=== PATIENT | female | born 1960 | race Two or more races ===

== ENCOUNTER 2019-01-31 18:21 | Inpatient (IN) | payer MEDICARE, OTHER ==
[~2019-01-31] VITALS: Ht 165.1 cm; Wt 89.8 kg
[2019-01-31] MEDS ORDERED: LIPITOR80 MG ORAL (18:34)
[2019-01-31] MEDS ORDERED: LOSARTAN POTAS100 MG ORAL (18:34)
[2019-01-31] MEDS ORDERED: Metoclopramide 10mg/2ml Inj IVP ONE (18:45)
[2019-01-31 18:58] VITALS: BP 160/90
--- NOTE | 2019-01-31 19:01 | NUR ---
ED Nurse Note: Pt came in from home due to "all over" abdominal pain since this morning, pain 10/10 ginna. Pt also c/o diarrhea , last bowel movement was today. Pt is scheduled for colonoscopy tmr. AOx4, VSS. Will cont to monitor.
--- NOTE | 2019-01-31 19:04 | Emergency Room Report ---
History of Present Illness General Chief Complaint: Abdominal Pain Source: Patient, EMS Present Illness HPI Patient presents with abdominal distention and pain. She also has orthopnea. She also has leg edema. She hasn't any fevers or chills. She's been taking a bowel prep for colonoscopy scheduled for tomorrow. She has a history of cirrhosis. She has some dysuria also. She denies fevers or chills. The pain is diffuse. She's not taking any medication for the pain. She rates the pain 10/10, pressure and diffuse in her abdomen. Stools have been loose with the colonoscopy prep. There is yellow in color she denies melena or hematochezia. Patient with history of alcohol use. No chest pain, palpitations, nausea, vomiting, dysuria, depression, visual changes, headache, rashes. Allergies: Coded Allergies: No Known Allergies (Unverified , 01/31/19) Patient History Past Medical History: see triage record Social History: Reports: alcohol use Social History Narrative from home Reviewed Nursing Documentation: PMH: Agreed; PSxH: Agreed Nursing Documentation-PMH Past Medical History: No History, Except For Hx Hypertension: Yes Hx Diabetes: Yes Review of Systems All Other Systems: negative except mentioned in HPI Physical Exam Vital Signs Date Time Temp Pulse Resp B/P (MAP) Pulse Ox O2 Delivery O2 Flow Rate FiO2 01/31/19 18:22 97.9 88 18 160/90 (113) 98 Room Air Sp02 EP Interpretation: reviewed, normal General Appearance: alert, GCS 15, non-toxic, Chronically Ill Head: normocephalic Eyes: bilateral eye PERRL, bilateral eye conjunctivae pale ENT: dry mucus membranes Neck: supple Respiratory: lungs clear, normal breath sounds Cardiovascular #1: regular rate, rhythm, edema - Trace bilaterally Cardiovascular #2: 2+ radial (R) Gastrointestinal: no guarding, no rebound, distended, tenderness, other - Fluid wave Genitourinary: no CVA tenderness Musculoskeletal: back normal, normal range of motion Neurologic: alert, oriented x3, other - No asterixis, grossly normal Psychiatric: mood/affect normal Skin: warm/dry, other - Sallow Medical Decision Making Diagnostic Impression: Primary Impression: Ascites Qualified Codes: K70.31 - Alcoholic cirrhosis of liver with ascites Additional Impressions: Elevated lactic acid level Alcohol intoxication Qualified Codes: F10.929 - Alcohol use, unspecified with intoxication, unspecified Anemia Qualified Codes: D64.9 - Anemia, unspecified Thrombocytopenia Coagulopathy ER Course Patient presents with abdominal pain with history of cirrhosis. Based on her exam at that she has a painful ascites, consider spontaneous bacterial peritonitis. We need to assess her laboratory To exclude coagulopathy. She also looks dehydrated at this time and there may be electrolyte imbalance. She' ll be evaluated with EKG, chest x-ray, abdomen film and labs. Orthostatics will be performed to determine if she needs to get IV fluids intravenously NSR 91 incomplete RBBB, LAD. Chest x-ray with atelectasis. Labs with normal white count, anemia, thrombocytopenia. CMP with elevated liver function tests. Normal renal function. Elevated lactate. Elevated ammonia. Elevated blood alcohol. Elevated lactic acid multifactorial. BC drawn and antibiotics started. Fluid bolus given. Improved but still with pain. Morphine ordered. Although white count is normal without left shift and urine is clear due to elevated lactic acid antibiotics begun. Patient improved with morphine. Tolerating oral intake. Patient admitted to medical floor. Consideration of paracentesis. Due to elevated lactic acid nursing joint supervisor insisting on stepdown unit admission. Laboratory Tests Test 01/31/19 18:56 01/31/19 21:45 02/01/19 01:35 White Blood Count 4.8 K/UL (4.8-10.8) Red Blood Count 3.55 M/UL (4.20-5.40) L Hemoglobin 8.1 G/DL (12.0-16.0) L Hematocrit 26.6 % (37.0-47.0) L Mean Corpuscular Volume 75 FL (80-99) L Mean Corpuscular Hemoglobin 22.8 PG (27.0-31.0) L Mean Corpuscular Hemoglobin Concent 30.4 G/DL (32.0-36.0) L Red Cell Distribution Width 20.4 % (11.6-14.8) H Platelet Count 70 K/UL (150-450) L Mean Platelet Volume 7.1 FL (6.5-10.1) Neutrophils (%) (Auto) % (45.0-75.0) Lymphocytes (%) (Auto) % (20.0-45.0) Monocytes (%) (Auto) % (1.0-10.0) Eosinophils (%) (Auto) % (0.0-3.0) Basophils (%) (Auto) % (0.0-2.0) Differential Total Cells Counted 100 Neutrophils % (Manual) 67 % (45-75) Lymphocytes % (Manual) 25 % (20-45) Monocytes % (Manual) 5 % (1-10) Eosinophils % (Manual) 2 % (0-3) Basophils % (Manual) 1 % (0-2) Band Neutrophils 0 % (0-8) Platelet Estimate Decreased L Platelet Morphology Normal Polychromasia 1+ Hypochromasia 1+ Anisocytosis 1+ Prothrombin Time 12.6 SEC (9.30-11.50) H Prothrombin Time INR 1.2 (0.9-1.1) H PTT 26 SEC (23-33) Sodium Level 142 MMOL/L (136-145) Potassium Level 3.5 MMOL/L (3.5-5.1) Chloride Level 107 MMOL/L (98-107) Carbon Dioxide Level 20 MMOL/L (21-32) L Anion Gap 15 mmol/L (5-15) Blood Urea Nitrogen 4 mg/dL (7-18) L Creatinine 0.9 MG/DL (0.55-1.30) Estimate Glomerular Filtration Rate > 60 mL/min (>60) Glucose Level 118 MG/DL (74-106) H Lactic Acid Level 6.10 mmol/L (0.4-2.0) H 5.40 mmol/L (0.66-2.22) H Calcium Level 7.7 MG/DL (8.5-10.1) L Total Bilirubin 3.0 MG/DL (0.2-1.0) H Direct Bilirubin 1.6 MG/DL (0.0-0.3) H Aspartate Amino Transferase (AST) 40 U/L (15-37) H Alanine Aminotransferase (ALT) 21 U/L (12-78) Alkaline Phosphatase 301 U/L (46-116) H Ammonia 66 umol/L (11-32) H Troponin I 0.000 ng/mL (0.000-0.056) Total Protein 6.5 G/DL (6.4-8.2) Albumin 2.4 G/DL (3.4-5.0) L Globulin 4.1 g/dL Albumin/Globulin Ratio 0.6 (1.0-2.7) L Lipase 57 U/L (73-393) L Serum Alcohol 233 mg/dL Urine Color Yellow Urine Appearance Clear Urine pH 5 (4.5-8.0) Urine Specific [place] 1.015 (1.005-1.035) Urine Protein 1+ (NEGATIVE) H Urine Glucose (UA) Negative (NEGATIVE) Urine Ketones 1+ (NEGATIVE) H Urine Blood Negative (NEGATIVE) Urine Nitrite Positive (NEGATIVE) H Urine Bilirubin Negative (NEGATIVE) Urine Urobilinogen 1 MG/DL (0.0-1.0) H Urine Leukocyte Esterase 1+ (NEGATIVE) H Urine RBC 0-2 /HPF (0 - 2) Urine WBC 2-4 /HPF (0 - 2) Urine Squamous Epithelial Cells Moderate /LPF (NONE/OCC) H Urine Bacteria Moderate /HPF (NONE) H Urine Opiates Screen Negative (NEGATIVE) Urine Barbiturates Screen Negative (NEGATIVE) Phencyclidine (PCP) Screen Negative (NEGATIVE) Urine Amphetamines Screen Negative (NEGATIVE) Urine Benzodiazepines Screen Negative (NEGATIVE) Urine Cocaine Screen Negative (NEGATIVE) Urine Marijuana (THC) Screen Negative (NEGATIVE) EKG Diagnostic Results Rate: normal Rhythm: NSR ST Segments: no acute changes - Incomplete right bundle branch block with left ASA given to the pt in ED: Yes Rhythm Strip Diag. Results EP Interpretation: yes Rhythm: NSR, no PVC's, no ectopy Chest X-Ray Diagnostic Results Chest X-Ray Diagnostic Results : Chest X-Ray Ordered: Yes # of Views/Limited/Complete: 1 View Indication: Other EP Interpretation: Yes Interpretation: no consolidation, no effusion, no pneumothorax Impression: No acute disease Electronically Signed by: Electronically signed by Vincent Recinos MD Other X-Ray Diagnostic Results Other X-Ray Diagnostic Results : X-Ray ordered: abd # of Views/Limited Vs Complete: 2 View Indication: Pain EP Interpretation: Yes Interpretation: nonspecific bowel gas, no sbo, other - Ascites Impression: Other Electronically Signed by: Electronically signed by Vincent Recinos MD Last Vital Signs Date Time Temp Pulse Resp B/P (MAP) Pulse Ox O2 Delivery O2 Flow Rate FiO2 02/01/19 02:02 97.7 80 20 132/76 95 Room Air Status: improved Disposition: ADMITTED INPATIENT Condition: Serious Vincent Recinos MD Jan 31, 2019 19:04
--- NOTE | 2019-01-31 19:05 | NUR ---
ED Nurse Note: Blood drawn and sent to lab.
--- NOTE | 2019-01-31 19:19 | NUR ---
HAND-OFF: Report given to CHAVA Verdugo.
[2019-01-31 19:27] LABS: HEMATOCRIT 26.6 % (37.0-47.0); HEMOGLOBIN 8.1 G/DL (12.0-16.0); MEAN CORPUSCULAR VOLUME 75 FL (80-99); PLATELET COUNT 70 K/UL (150-450); RED BLOOD COUNT 3.55 M/UL (4.20-5.40); RED CELL DISTRIBUTION WIDTH 20.4 % (11.6-14.8); WHITE BLOOD COUNT 4.8 K/UL (4.8-10.8)
[2019-01-31 19:32] LABS: AMMONIA 66 umol/L (11-32); ANION GAP 15 mmol/L (5-15); BLOOD UREA NITROGEN 4 mg/dL (7-18); CALCIUM 7.7 MG/DL (8.5-10.1); CARBON DIOXIDE 20 MMOL/L (21-32); CHLORIDE 107 MMOL/L (98-107); CREATININE 0.9 MG/DL (0.55-1.30); POTASSIUM 3.5 MMOL/L (3.5-5.1); SODIUM 142 MMOL/L (136-145)
[2019-01-31 19:34] LABS: INR 1.2 (0.9-1.1)
[2019-01-31 19:40] VITALS: BP 172/82
[2019-01-31 19:49] LABS: ALANINE AMINOTRANSFERASE 21 U/L (12-78); ALBUMIN 2.4 G/DL (3.4-5.0); ALBUMIN/GLOBULIN RATIO 0.6 (1.0-2.7); ALKALINE PHOSPHATASE 301 U/L (46-116); ASPARTATE AMINO TRANSFERASE 40 U/L (15-37)
[2019-01-31 19:50] VITALS: BP 130/76
[2019-01-31 19:52] LABS: BILIRUBIN,DIRECT 1.6 MG/DL (0.0-0.3)
[2019-01-31 19:56] VITALS: BP 124/76
[2019-01-31] MEDS ORDERED: Cefepime HCl 1 GM in D5W 55 ML IVPB ONE (20:00)
--- NOTE | 2019-01-31 20:01 | NUR ---
ER Nurse Note: Film Writer&ox4, VSS, no signs of external distress. SLIV on RT hand established by AM nurse; patent. Skin intact. Orthostatics completed; MD aware. Pt asleep. Will continue to montior.
[2019-01-31] MEDS ORDERED: Phytonadione 10 mg/mL 1ml amp SUBQ ONE (21:00)
[2019-01-31] MEDS ORDERED: LORazepam Inj 2mg/ml 1ml IV PRN (21:15)
[2019-01-31] MEDS ORDERED: Miralax 17gm pkt ORAL PRN (21:15)
[2019-01-31] MEDS ORDERED: Morphine Sulfate 2mg/ml Inj(IV/IM USE ONLY) IVP PRN (21:15)
[2019-01-31] MEDS ORDERED: Zolpidem 5mg tab ORAL PRN (21:15)
[2019-01-31] MEDS ORDERED: Morphine Sulfate 2mg/ml Inj(IV/IM USE ONLY) IVP ONE (22:15)
[2019-01-31 23:28] VITALS: BP 130/75
[2019-02-01] VITALS (7 sets, daily range): BP systolic 126–147; BP diastolic 73–83
--- NOTE | 2019-02-01 | NUR ---
ED Nurse Note: lactulose not given, pt reports she's been having diarrhea.
[2019-02-01 02:14] LABS: APPEARANCE,URINE CLEAR; BILIRUBIN, URINE NEGATIVE (NEGATIVE); GLUCOSE, URINE (UA) NEGATIVE (NEGATIVE); KETONES,URINE 1+ (NEGATIVE); LEUKOCYTE ESTERASE ,URINE 1+ (NEGATIVE); NITRITE,URINE POSITIVE (NEGATIVE); PH,URINE 5 (4.5-8.0); PROTEIN,URINE 1+ (NEGATIVE); UROBILINOGEN,URINE 1 MG/DL (0.0-1.0)
[2019-02-01] MEDS ORDERED: Morphine Sulfate 4mg/ml Inj (IV USE ONLY) ONE (02:35)
[2019-02-01 02:37] LABS: COLOR,URINE YELLOW
[2019-02-01] MEDS ORDERED: Morphine Sulfate 2mg/ml Inj(IV/IM USE ONLY) ONE ×2 (02:43→05:54)
--- NOTE | 2019-02-01 04:39 | NUR ---
ER Nurse Note: All specimens sent down, no signs of dissress, pt stable. Pt alseep, IV patnet. All safety measrues met; will continue to monitor.
[2019-02-01] MEDS ORDERED: Cefepime 2gm ONE (05:54)
[2019-02-01] MEDS: Lactulose 20gm/30ml UDC ORAL SCH ×3 (05:59→18:39)
[2019-02-01] MEDS ORDERED: Cefepime HCl 2 GM in D5W 55 ML IV SCH (06:00)
[2019-02-01 06:38] LABS: HEMATOCRIT 24.9 % (37.0-47.0); HEMOGLOBIN 7.5 G/DL (12.0-16.0); MEAN CORPUSCULAR VOLUME 76 FL (80-99); PLATELET COUNT 62 K/UL (150-450); RED BLOOD COUNT 3.26 M/UL (4.20-5.40); RED CELL DISTRIBUTION WIDTH 20.8 % (11.6-14.8); WHITE BLOOD COUNT 3.4 K/UL (4.8-10.8)
[2019-02-01 07:15] LABS: ALANINE AMINOTRANSFERASE 20 U/L (12-78); ALBUMIN 2.2 G/DL (3.4-5.0); ALBUMIN/GLOBULIN RATIO 0.6 (1.0-2.7); ALKALINE PHOSPHATASE 272 U/L (46-116); ANION GAP 12 mmol/L (5-15); ASPARTATE AMINO TRANSFERASE 38 U/L (15-37); BILIRUBIN,TOTAL 2.5 MG/DL (0.2-1.0); BLOOD UREA NITROGEN 5 mg/dL (7-18); CALCIUM 7.2 MG/DL (8.5-10.1); CARBON DIOXIDE 21 MMOL/L (21-32); CHLORIDE 110 MMOL/L (98-107); CHOLESTEROL 135 MG/DL (< 200); CREATININE 0.8 MG/DL (0.55-1.30); HDL CHOLESTEROL 41 MG/DL (40-60); POTASSIUM 3.3 MMOL/L (3.5-5.1); SODIUM 143 MMOL/L (136-145); TRIGLYCERIDES 99 MG/DL (30-150)
[2019-02-01 07:16] LABS: BILIRUBIN,DIRECT 1.6 MG/DL (0.0-0.3)
--- NOTE | 2019-02-01 07:17 | NUR ---
ER Nurse Note: All orders completed per ERMD and MD orders. Lactulose held per pt stated she had diarrhea. Pt ambulatory, VSS, no signs of distress, a&ox4. Pt currently not complaining of pain. IV LT thumb 20 gauge; patent. IV RT hand removed; site clean and bandaged. Report given to CHAVA Rodriguez for continuity of care.
--- NOTE | 2019-02-01 07:20 | NUR ---
ED Nurse Note: REPORT RECEIVED FROM CHAVA ROSALES. PT LAYING PEACEFULLY IN BED IN NAD. VSS. AOX4. SDU CALLED FOR PT TRANSFER. REPORT GIVEN TO CHAVA INGRAM. RN READY TO ACCEPT PT. 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 VSS.
--- NOTE | 2019-02-01 07:40 | NUR ---
NURSE NOTES: Received report from CHAVA Rodriguez; brought in the unit from ER via gurney. Patient is alert, awake, and oriented, Indonesian speaking. On room air, no acute respiratory distress noted. IV on left hand 20g intact and patent. No n/v noted at this time. Patient denies pain/discomfort. Placed on potline monitor, normal sinus rhythm. Belongings list verified and signed.
--- NOTE | 2019-02-01 10:32 | GI Initial Consult Note ---
History of Present Illness General Date patient seen: Feb 01, 2019 Time patient seen: 10:22 Reason for Hospitalization: Abdominal Pain Referring physician: TONI MARTINEZ Reason for Consultation: ASCITES Present Illness HPI Patient presents with abdominal distention and pain. She also has orthopnea. She also has leg edema. She hasn't any fevers or chills. She's been taking a bowel prep for colonoscopy scheduled for tomorrow. She has a history of cirrhosis. She has some dysuria also. She denies fevers or chills. The pain is diffuse. She's not taking any medication for the pain. She rates the pain 10/10, pressure and diffuse in her abdomen. Stools have been loose with the colonoscopy prep. There is yellow in color she denies melena or hematochezia. Patient with history of alcohol use. No chest pain, palpitations, nausea, vomiting, dysuria, depression, visual changes, headache, rashes. GI consulted for ascites. Patient was seen, awake alert and oriented no apparent distress has complaint of abdominal distention and lower left extremity swelling. The patient denied any nausea or vomiting and diarrhea. The patient admits to drinking alcohol last night. Presents with alcohol serum level of 233. Labs reviewed; WBC 3.4, hemoglobin 7.5, platelet count of 62, AST of 38, alkaline phosphatase of 279, total bilirubin of 2.5. No history of endoscopic or colonoscopy. Apparently the patient was prepping for colonoscopy that was scheduled tomorrow. Home Meds Reported Medications Atorvastatin (Lipitor) 80 Mg Tablet, 80 MG ORAL BEDTIME, #30 TAB 0 Refills 01/31/19 Losartan Potassium (LOSARTAN POTASSIUM) 100 Mg Tablet, 100 MG ORAL DAILY, TAB 01/31/19 Med list reviewed/reconciled: Yes Allergies: Coded Allergies: No Known Allergies (Unverified , 01/31/19) Patient History History Provided By: Patient, Medical Record PMH Narrative Past Medical History: see triage record Social History: Reports: alcohol use Social History Narrative from home Reviewed Nursing Documentation: PMH: Agreed; PSxH: Agreed Nursing Documentation-PMH Past Medical History: No History, Except For Hx Hypertension: Yes Hx Diabetes: Yes Social History: Reports: alcohol use Review of Systems All Other Systems: negative except mentioned in HPI Physical Exam Vital Signs Date Time Temp Pulse Resp B/P (MAP) Pulse Ox O2 Delivery O2 Flow Rate FiO2 01/31/19 18:22 97.9 88 18 160/90 (113) 98 Room Air Sp02 EP Interpretation: reviewed, normal Labs Laboratory Tests Test 01/31/19 18:56 01/31/19 21:45 02/01/19 01:35 02/01/19 04:00 White Blood Count 4.8 K/UL (4.8-10.8) 3.4 K/UL (4.8-10.8) L Red Blood Count 3.55 M/UL (4.20-5.40) L 3.26 M/UL (4.20-5.40) L Hemoglobin 8.1 G/DL (12.0-16.0) L 7.5 G/DL (12.0-16.0) L Hematocrit 26.6 % (37.0-47.0) L 24.9 % (37.0-47.0) L Mean Corpuscular Volume 75 FL (80-99) L 76 FL (80-99) L Mean Corpuscular Hemoglobin 22.8 PG (27.0-31.0) L 22.9 PG (27.0-31.0) L Mean Corpuscular Hemoglobin Concent 30.4 G/DL (32.0-36.0) L 30.0 G/DL (32.0-36.0) L Red Cell Distribution Width 20.4 % (11.6-14.8) H 20.8 % (11.6-14.8) H Platelet Count 70 K/UL (150-450) L 62 K/UL (150-450) L Mean Platelet Volume 7.1 FL (6.5-10.1) 8.6 FL (6.5-10.1) Neutrophils (%) (Auto) % (45.0-75.0) % (45.0-75.0) Lymphocytes (%) (Auto) % (20.0-45.0) % (20.0-45.0) Monocytes (%) (Auto) % (1.0-10.0) % (1.0-10.0) Eosinophils (%) (Auto) % (0.0-3.0) % (0.0-3.0) Basophils (%) (Auto) % (0.0-2.0) % (0.0-2.0) Differential Total Cells Counted 100 Neutrophils % (Manual) 67 % (45-75) Pending Lymphocytes % (Manual) 25 % (20-45) Pending Monocytes % (Manual) 5 % (1-10) Eosinophils % (Manual) 2 % (0-3) Basophils % (Manual) 1 % (0-2) Band Neutrophils 0 % (0-8) Platelet Estimate Decreased L Pending Platelet Morphology Normal Pending Polychromasia 1+ Hypochromasia 1+ Anisocytosis 1+ Prothrombin Time 12.6 SEC (9.30-11.50) H Prothromb Time International Ratio 1.2 (0.9-1.1) H Activated Partial Thromboplast Time 26 SEC (23-33) Sodium Level 142 MMOL/L (136-145) 143 MMOL/L (136-145) Potassium Level 3.5 MMOL/L (3.5-5.1) 3.3 MMOL/L (3.5-5.1) L Chloride Level 107 MMOL/L (98-107) 110 MMOL/L (98-107) H Carbon Dioxide Level 20 MMOL/L (21-32) L 21 MMOL/L (21-32) Anion Gap 15 mmol/L (5-15) 12 mmol/L (5-15) Blood Urea Nitrogen 4 mg/dL (7-18) L 5 mg/dL (7-18) L Creatinine 0.9 MG/DL (0.55-1.30) 0.8 MG/DL (0.55-1.30) Estimat Glomerular Filtration Rate > 60 mL/min (>60) > 60 mL/min (>60) Glucose Level 118 MG/DL (74-106) H 91 MG/DL (74-106) Lactic Acid Level 6.10 mmol/L (0.4-2.0) H 5.40 mmol/L (0.66-2.22) H Calcium Level 7.7 MG/DL (8.5-10.1) L 7.2 MG/DL (8.5-10.1) L Total Bilirubin 3.0 MG/DL (0.2-1.0) H 2.5 MG/DL (0.2-1.0) H Direct Bilirubin 1.6 MG/DL (0.0-0.3) H 1.6 MG/DL (0.0-0.3) H Aspartate Amino Transf (AST/SGOT) 40 U/L (15-37) H 38 U/L (15-37) H Alanine Aminotransferase (ALT/SGPT) 21 U/L (12-78) 20 U/L (12-78) Alkaline Phosphatase 301 U/L (46-116) H 272 U/L (46-116) H Ammonia 66 umol/L (11-32) H Troponin I 0.000 ng/mL (0.000-0.056) Total Protein 6.5 G/DL (6.4-8.2) 6.1 G/DL (6.4-8.2) L Albumin 2.4 G/DL (3.4-5.0) L 2.2 G/DL (3.4-5.0) L Globulin 4.1 g/dL 3.9 g/dL Albumin/Globulin Ratio 0.6 (1.0-2.7) L 0.6 (1.0-2.7) L Lipase 57 U/L (73-393) L Serum Alcohol 233 mg/dL Urine Color Yellow Urine Appearance Clear Urine pH 5 (4.5-8.0) Urine Specific [place] 1.015 (1.005-1.035) Urine Protein 1+ (NEGATIVE) H Urine Glucose (UA) Negative (NEGATIVE) Urine Ketones 1+ (NEGATIVE) H Urine Blood Negative (NEGATIVE) Urine Nitrite Positive (NEGATIVE) H Urine Bilirubin Negative (NEGATIVE) Urine Urobilinogen 1 MG/DL (0.0-1.0) H Urine Leukocyte Esterase 1+ (NEGATIVE) H Urine RBC 0-2 /HPF (0 - 2) Urine WBC 2-4 /HPF (0 - 2) Urine Squamous Epithelial Cells Moderate /LPF (NONE/OCC) H Urine Bacteria Moderate /HPF (NONE) H Urine Opiates Screen Negative (NEGATIVE) Urine Barbiturates Screen Negative (NEGATIVE) Phencyclidine (PCP) Screen Negative (NEGATIVE) Urine Amphetamines Screen Negative (NEGATIVE) Urine Benzodiazepines Screen Negative (NEGATIVE) Urine Cocaine Screen Negative (NEGATIVE) Urine Marijuana (THC) Screen Negative (NEGATIVE) Triglycerides Level 99 MG/DL (30-150) Cholesterol Level 135 MG/DL (< 200) LDL Cholesterol 83 mg/dL (<100) HDL Cholesterol 41 MG/DL (40-60) Cholesterol/HDL Ratio 3.3 (3.3-4.4) Thyroid Stimulating Hormone (TSH) 3.941 uiU/mL (0.358-3.740) Test 02/01/19 06:20 Ammonia 42 umol/L (11-32) H General Appearance: well appearing, no apparent distress, alert, obese, other - Generalized jaundice Head: normocephalic EENT: PERRL/EOMI, normal ENT inspection Neck: supple Respiratory: normal breath sounds, no respiratory distress Cardiovascular: normal rate Gastrointestinal: normal inspection, non tender, soft, normal bowel sounds, non -distended Rectal: deferred Genitourinary: no CVA tenderness Musculoskeletal: normal inspection, back normal Neurologic: normal inspection, alert, oriented x3, responsive Psychiatric: normal inspection, judgement/insight normal, memory normal Skin: normal inspection, normal color, no rash, warm/dry, palpation normal, well hydrated Lymphatic: normal inspection, no adenopathy Current Medications Current Medications Medications (Trade) Dose Ordered Sig/Almaz Route PRN Reason Start Time Stop Time Status Last Admin Dose Admin Acetaminophen (Tylenol) 650 mg Q4H PRN ORAL fever 01/31/19 21:15 03/02/19 21:14 Cefepime HCl 2 gm/ Dextrose 55 ml @ 110 mls/hr EVERY 8 HOURS IV 02/01/19 06:00 02/08/19 05:59 02/01/19 05:56 Dextrose (Dextrose 50%) 25 ml Q30M PRN IV Hypoglycemia 01/31/19 21:15 03/02/19 21:14 Dextrose (Dextrose 50%) 50 ml Q30M PRN IV Hypoglycemia 01/31/19 21:45 03/02/19 21:44 Lactulose (Cephulac) 30 gm EVERY 6 HOURS ORAL 02/01/19 00:00 03/03/19 00:00 Lorazepam (Ativan 2mg/ml 1ml) 0.5 mg Q4H PRN IV For Anxiety 01/31/19 21:15 02/07/19 21:14 Morphine Sulfate (Morphine Sulfate) 2 mg Q4H PRN IVP For Pain 01/31/19 21:15 02/07/19 21:14 02/01/19 05:56 Ondansetron HCl (Zofran) 4 mg Q6H PRN IVP Nausea & Vomiting 01/31/19 21:15 03/02/19 21:14 Polyethylene Glycol (Miralax) 17 gm HSPRN PRN ORAL Constipation 01/31/19 21:15 03/02/19 21:14 Zolpidem Tartrate (Ambien) 5 mg HSPRN PRN ORAL Insomnia 01/31/19 21:15 02/07/19 21:14 GI: Plan Problems: (1) Anemia (2) Alcohol intoxication (3) Coagulopathy (4) Thrombocytopenia (5) Ascites (6) Abdominal pain Plan paracentesis ordered, rule out SBP Okay to advance diet after procedure We will consider endoscopy and colonoscopy anemia work up OB stool r/o GI bleed monitor H&H, prn transfusions bowel regimen ppi fu labs, trend LFTs Discussed with Dr. Torres. Thank you for this patient referral, we will follow. The patient was seen and examined at bedside and all new and available data was reviewed in the patients chart. I agree with the above findings, impression and plan. (Patient seen earlier today. Signature stamp does not reflect patient encounter time.). - MD [facility] Feb 01, 2019 10:31
[2019-02-01] MEDS ORDERED: Piperacillin/Tazobactam 3.375 GM in NS 110 ML IVPB SCH (11:00)
--- NOTE | 2019-02-01 11:16 | Consultation ---
History of Present Illness General Date patient seen: Feb 01, 2019 Chief Complaint: Abdominal Pain Referring physician: TONI MARTINEZ Reason for Consultation: inpatient management Present Illness HPI 58 year old female wit hx of ETOH abuse, alcoholic cirrhosis, HTN, presented to Er with CC of increased abdominal pain. Her Blood ETOH was more than 200. She is severely anemic and admitted to [facility]. Currently she is in [facility] c/o of abdominal pain. Allergies: Coded Allergies: No Known Allergies (Unverified , 01/31/19) Medication History Scheduled Atorvastatin (Lipitor), 80 MG ORAL BEDTIME, (Reported) Losartan Potassium (Losartan Potassium), 100 MG ORAL DAILY, (Reported) Patient History Healthcare decision maker Resuscitation status Advanced Directive on File Past Medical/Surgical History Past Medical/Surgical History: (1) Liver cirrhosis (2) Coagulopathy (3) Anemia (4) ETOH abuse Review of Systems Neurological: Reports: no symptoms Endocrine: Reports: no symptoms Hematologic/Lymphatic: Reports: no symptoms Physical Exam General Appearance: WD/WN Lines, tubes and drains: peripheral, trach HEENT: normocephalic Neck: non-tender, normal alignment, supple Respiratory/Chest: chest wall non-tender, lungs clear, normal breath sounds Breasts: no masses Cardiovascular/Chest: normal peripheral pulses, normal rate Abdomen: normal bowel sounds, non tender Genitourinary/Rectal: normal genital exam Extremities: normal range of motion, severe edema Skin Exam: rash - on upper chest Last 24 Hour Vital Signs Date Time Temp Pulse Resp B/P (MAP) Pulse Ox O2 Delivery O2 Flow Rate FiO2 02/01/19 08:00 Room Air 02/01/19 07:25 98.1 92 22 138/73 97 Room Air 02/01/19 07:25 98.1 92 22 138/73 97 Room Air 02/01/19 07:20 97.9 90 18 132/80 96 Room Air 02/01/19 04:51 Room Air 02/01/19 04:38 97.6 84 18 126/78 96 Room Air 02/01/19 03:16 97.7 02/01/19 02:02 97.7 80 20 132/76 95 Room Air 01/31/19 23:28 97.9 90 20 130/75 97 01/31/19 19:56 91 22 124/76 96 01/31/19 19:50 93 23 130/76 95 01/31/19 19:40 89 21 172/82 94 01/31/19 18:59 90 18 Room Air 01/31/19 18:58 97.9 90 18 160/90 99 Room Air 01/31/19 18:22 97.9 88 18 160/90 (113) 98 Room Air Laboratory Tests Test 01/31/19 18:56 01/31/19 21:45 02/01/19 01:35 02/01/19 04:00 White Blood Count 4.8 K/UL (4.8-10.8) 3.4 K/UL (4.8-10.8) L Red Blood Count 3.55 M/UL (4.20-5.40) L 3.26 M/UL (4.20-5.40) L Hemoglobin 8.1 G/DL (12.0-16.0) L 7.5 G/DL (12.0-16.0) L Hematocrit 26.6 % (37.0-47.0) L 24.9 % (37.0-47.0) L Mean Corpuscular Volume 75 FL (80-99) L 76 FL (80-99) L Mean Corpuscular Hemoglobin 22.8 PG (27.0-31.0) L 22.9 PG (27.0-31.0) L Mean Corpuscular Hemoglobin Concent 30.4 G/DL (32.0-36.0) L 30.0 G/DL (32.0-36.0) L Red Cell Distribution Width 20.4 % (11.6-14.8) H 20.8 % (11.6-14.8) H Platelet Count 70 K/UL (150-450) L 62 K/UL (150-450) L Mean Platelet Volume 7.1 FL (6.5-10.1) 8.6 FL (6.5-10.1) Neutrophils (%) (Auto) % (45.0-75.0) % (45.0-75.0) Lymphocytes (%) (Auto) % (20.0-45.0) % (20.0-45.0) Monocytes (%) (Auto) % (1.0-10.0) % (1.0-10.0) Eosinophils (%) (Auto) % (0.0-3.0) % (0.0-3.0) Basophils (%) (Auto) % (0.0-2.0) % (0.0-2.0) Differential Total Cells Counted 100 100 Neutrophils % (Manual) 67 % (45-75) 61 % (45-75) Lymphocytes % (Manual) 25 % (20-45) 27 % (20-45) Monocytes % (Manual) 5 % (1-10) 8 % (1-10) Eosinophils % (Manual) 2 % (0-3) 3 % (0-3) Basophils % (Manual) 1 % (0-2) 1 % (0-2) Band Neutrophils 0 % (0-8) 0 % (0-8) Platelet Estimate Decreased L Decreased L Platelet Morphology Normal Normal Polychromasia 1+ Hypochromasia 1+ 3+ Anisocytosis 1+ 2+ Prothrombin Time 12.6 SEC (9.30-11.50) H Prothromb Time International Ratio 1.2 (0.9-1.1) H Activated Partial Thromboplast Time 26 SEC (23-33) Sodium Level 142 MMOL/L (136-145) 143 MMOL/L (136-145) Potassium Level 3.5 MMOL/L (3.5-5.1) 3.3 MMOL/L (3.5-5.1) L Chloride Level 107 MMOL/L (98-107) 110 MMOL/L (98-107) H Carbon Dioxide Level 20 MMOL/L (21-32) L 21 MMOL/L (21-32) Anion Gap 15 mmol/L (5-15) 12 mmol/L (5-15) Blood Urea Nitrogen 4 mg/dL (7-18) L 5 mg/dL (7-18) L Creatinine 0.9 MG/DL (0.55-1.30) 0.8 MG/DL (0.55-1.30) Estimat Glomerular Filtration Rate > 60 mL/min (>60) > 60 mL/min (>60) Glucose Level 118 MG/DL (74-106) H 91 MG/DL (74-106) Lactic Acid Level 6.10 mmol/L (0.4-2.0) H 5.40 mmol/L (0.66-2.22) H Calcium Level 7.7 MG/DL (8.5-10.1) L 7.2 MG/DL (8.5-10.1) L Total Bilirubin 3.0 MG/DL (0.2-1.0) H 2.5 MG/DL (0.2-1.0) H Direct Bilirubin 1.6 MG/DL (0.0-0.3) H 1.6 MG/DL (0.0-0.3) H Aspartate Amino Transf (AST/SGOT) 40 U/L (15-37) H 38 U/L (15-37) H Alanine Aminotransferase (ALT/SGPT) 21 U/L (12-78) 20 U/L (12-78) Alkaline Phosphatase 301 U/L (46-116) H 272 U/L (46-116) H Ammonia 66 umol/L (11-32) H Troponin I 0.000 ng/mL (0.000-0.056) Total Protein 6.5 G/DL (6.4-8.2) 6.1 G/DL (6.4-8.2) L Albumin 2.4 G/DL (3.4-5.0) L 2.2 G/DL (3.4-5.0) L Globulin 4.1 g/dL 3.9 g/dL Albumin/Globulin Ratio 0.6 (1.0-2.7) L 0.6 (1.0-2.7) L Lipase 57 U/L (73-393) L Serum Alcohol 233 mg/dL Urine Color Yellow Urine Appearance Clear Urine pH 5 (4.5-8.0) Urine Specific [place] 1.015 (1.005-1.035) Urine Protein 1+ (NEGATIVE) H Urine Glucose (UA) Negative (NEGATIVE) Urine Ketones 1+ (NEGATIVE) H Urine Blood Negative (NEGATIVE) Urine Nitrite Positive (NEGATIVE) H Urine Bilirubin Negative (NEGATIVE) Urine Urobilinogen 1 MG/DL (0.0-1.0) H Urine Leukocyte Esterase 1+ (NEGATIVE) H Urine RBC 0-2 /HPF (0 - 2) Urine WBC 2-4 /HPF (0 - 2) Urine Squamous Epithelial Cells Moderate /LPF (NONE/OCC) H Urine Bacteria Moderate /HPF (NONE) H Urine Opiates Screen Negative (NEGATIVE) Urine Barbiturates Screen Negative (NEGATIVE) Phencyclidine (PCP) Screen Negative (NEGATIVE) Urine Amphetamines Screen Negative (NEGATIVE) Urine Benzodiazepines Screen Negative (NEGATIVE) Urine Cocaine Screen Negative (NEGATIVE) Urine Marijuana (THC) Screen Negative (NEGATIVE) Microcytosis 1+ Triglycerides Level 99 MG/DL (30-150) Cholesterol Level 135 MG/DL (< 200) LDL Cholesterol 83 mg/dL (<100) HDL Cholesterol 41 MG/DL (40-60) Cholesterol/HDL Ratio 3.3 (3.3-4.4) Thyroid Stimulating Hormone (TSH) 3.941 uiU/mL (0.358-3.740) Test 02/01/19 06:20 Ammonia 42 umol/L (11-32) H Height (Feet): 5 Height (Inches): 5.00 Weight (Pounds): 200 Medications Current Medications Medications (Trade) Dose Ordered Sig/Almaz Route PRN Reason Start Time Stop Time Status Last Admin Dose Admin Acetaminophen (Tylenol) 650 mg Q4H PRN ORAL fever 01/31/19 21:15 03/02/19 21:14 Cefepime HCl 2 gm/ Dextrose 55 ml @ 110 mls/hr EVERY 8 HOURS IV 02/01/19 06:00 02/08/19 05:59 02/01/19 05:56 Dextrose (Dextrose 50%) 25 ml Q30M PRN IV Hypoglycemia 01/31/19 21:15 03/02/19 21:14 Dextrose (Dextrose 50%) 50 ml Q30M PRN IV Hypoglycemia 01/31/19 21:45 03/02/19 21:44 Lactulose (Cephulac) 30 gm EVERY 6 HOURS ORAL 02/01/19 00:00 03/03/19 00:00 Lorazepam (Ativan 2mg/ml 1ml) 0.5 mg Q4H PRN IV For Anxiety 01/31/19 21:15 02/07/19 21:14 Morphine Sulfate (Morphine Sulfate) 2 mg Q4H PRN IVP For Pain 01/31/19 21:15 02/07/19 21:14 02/01/19 05:56 Ondansetron HCl (Zofran) 4 mg Q6H PRN IVP Nausea & Vomiting 01/31/19 21:15 03/02/19 21:14 Piperacillin Sod/ Tazobactam Sod 3.375 gm/Sodium Chloride 110 ml @ 27.5 mls/hr EVERY 8 HOURS IVPB 02/01/19 11:00 02/06/19 10:59 Polyethylene Glycol (Miralax) 17 gm HSPRN PRN ORAL Constipation 01/31/19 21:15 03/02/19 21:14 Zolpidem Tartrate (Ambien) 5 mg HSPRN PRN ORAL Insomnia 01/31/19 21:15 02/07/19 21:14 Assessment/Plan Problem List: (1) Acute metabolic encephalopathy ICD Codes: G93.41 - Metabolic encephalopathy SNOMED: 35638091, 261256548 (2) Alcohol intoxication ICD Codes: F10.929 - Alcohol use, unspecified with intoxication, unspecified SNOMED: 81262852 Qualifiers: Qualified Codes: F10.929 - Alcohol use, unspecified with intoxication, unspecified (3) Coagulopathy ICD Codes: D68.9 - Coagulation defect, unspecified SNOMED: 91102670 (4) Thrombocytopenia ICD Codes: D69.6 - Thrombocytopenia, unspecified SNOMED: 689021263 (5) Ascites ICD Codes: R18.8 - Other ascites SNOMED: 361560807 Qualifiers: Qualified Codes: K70.31 - Alcoholic cirrhosis of liver with ascites (6) Anemia ICD Codes: D64.9 - Anemia, unspecified SNOMED: 650088716 Qualifiers: Qualified Codes: D64.9 - Anemia, unspecified (7) Abdominal pain ICD Codes: R10.9 - Unspecified abdominal pain SNOMED: 09243186 (8) Liver cirrhosis ICD Codes: K74.60 - Unspecified cirrhosis of liver SNOMED: 37971673 Assessment/Plan: paracentesis, anemia w/u banana bag, thiamine, folic acid, b12 GI evaluation US of legs 2d echo Shireen Khan MD Feb 01, 2019 11:16
--- NOTE | 2019-02-01 12:38 | Diagnostic Imaging Report ---
Indication: Chest pain Technique: One view of the chest Comparison: none Findings: Bilaterally habitus limits evaluation. The heart is enlarged. There is equivocal mild interstitial congestion Impression: Cardiomegaly Equivocal minimal interstitial congestion-correlate with clinical findings
--- NOTE | 2019-02-01 12:39 | Diagnostic Imaging Report ---
Indication: Abdominal pain Technique: Supine view of the abdomen Comparison: none Findings: Body habitus limits evaluation. Bowel gas pattern is grossly unremarkable. No unusual masses. Gallstones are demonstrated in the right upper quadrant Impression: Cholelithiasis No definite acute process
[2019-02-01 13:01] LABS: INR 1.2 (0.9-1.1)
[2019-02-01 13:08] LABS: LACTATE DEHYDROGENASE 244 U/L (81-234)
[2019-02-01] MEDS ORDERED: Morphine Sulfate 2mg/ml Inj(IV/IM USE ONLY) IVP PRN (13:15)
[2019-02-01] MEDS ORDERED: LORazepam Inj 2mg/ml 1ml IV PRN (13:15)
--- NOTE | 2019-02-01 13:50 | NUR ---
NURSE NOTES: Patient transported down for US paracentesis. Patient in stable condition.
[2019-02-01 13:54] LABS: % IRON SATURATION 69 % (15-50); IRON 197 ug/dL (50-175); TOTAL IRON BINDING CAPACITY 286 ug/dL (250-450)
--- NOTE | 2019-02-01 13:59 | Pre-Procedure Note/Attestation ---
Pre-Procedure Note/Attestation Complete Prior to Procedure Planned Procedure: not applicable Procedure Narrative: paracentesis Indications for Procedure Pre-Operative Diagnosis: ascites Attestation I attest that I discussed the nature of the procedure; its benefits; risks and complications; and alternatives (and the risks and benefits of such alternatives ), prior to the procedure, with the patient (or the patient's legal resources representative). I attest that, if there was a reasonable possibility of needing a blood transfusion, the patient (or the patient's legal resources representative) was given the [facility] standardized written summary, pursuant to the Elijah Damian Blood Safety Act ([place] Health and Safety Code # 1645, as amended). I attest that I re-evaluated the patient just prior to the surgery and that there has been no change in the patient's H&P, except as documented below: Donnie Rosado MD Feb 01, 2019 13:59
--- NOTE | 2019-02-01 14:00 | Brief Operative Note ---
Immediate Post Operative Note Operative Note Pre-op Diagnosis: ascites Procedure: paracentesis Post-op Diagnosis: same as pre-op Findings: consistent w/pre-op dx studies Surgeon: Milan ROSADO Specimen: yes - ascites sent to lab Complications: none Condition: stable Fluids: none Implant(s) used?: No Donnie Rosado MD Feb 01, 2019 14:00
--- NOTE | 2019-02-01 14:30 | NUR ---
NURSE NOTES: Report given to CHAVA Collins. Patient in stable condition; quality assurance monitor final removed prior to transfer. Belongings list updated, endorsed, and signed. Camryn from [facility] dept. reported 3.6L output from paracentesis, endorsed to Karina.
--- NOTE | 2019-02-01 14:44 | NUR ---
NURSE NOTES: Received patient awake alert and oriented. IV site at left thumb, 20 gauge, saline lock. Belongings reconciled with transferring nurse. Patient oriented to room. Bed at lowest level with 3 side rails up. Call light within reach. In no apparent distress at this time. Will continue to monitor.
--- NOTE | 2019-02-01 15:33 | NUR ---
MANAGER QUALITYMANAGER INSURANCE 58 Y/O FEMALE FROM HOME CAME TO [facility] ER CC:ABDOMINAL PAIN SI:ASCITES . THROMBOCYTOPENIA VS: BP 160/90, P 98, T 97.9, RR 22, SpO2 98 WBC 3.4, RBC 3.26, H&H 7.5/24.9, Plt. COUNT 62, LACTIC ACID 5.40 IS:FAMOTIDINE 20mg IVP METRONIDAZOLE HCI 10mg IVP CEFEPIME 55ml IVPB NS x2.7L IVLG ADMITTED TO MED/SURG DCP: RETURN HOME
[2019-02-01] MEDS: Piperacillin/Tazobactam 3.375 GM in NS 110 ML IVPB SCH ×2 (15:49→21:54)
[2019-02-01] MEDS ORDERED: Bisacodyl EC 5mg tab ORAL SCH ×2 (16:00)
[2019-02-01] MEDS ORDERED: Folic Acid 1 MG, Magnesium Sulfate 2,000 MG, Multivitamin - 12 Injection 10 ML in NS w/... IV SCH (16:00)
[2019-02-01] MEDS ORDERED: Nulytely 4L ORAL SCH ×2 (16:00)
--- NOTE | 2019-02-01 16:17 | Diagnostic Imaging Report ---
Indications: Ascites Technique: Ultrasound used to localize optimal puncture site. Sterile prepping and draping . Local anesthesia with 1% lidocaine. Under real-time ultrasound guidance, puncture peritoneal space using paracentesis needle. Stylet removed. Catheter placed to vacuum bottle suction. Total 3.6 liters of fluid aspirated. Patient tolerated procedure well, without immediate complication.. A specimen was sent to the lab Findings: Followup sonography demonstrates complete resolution of peritoneal fluid. Incidentally noted are gallstones and cirrhotic appearing liver Impression: Successful ultrasound-guided paracentesis, yielding 3.6 liters of fluid Incidental finding of cholelithiasis and cirrhotic appearing liver
[2019-02-01] MEDS: Folic Acid 1 MG, Magnesium Sulfate 2,000 MG, Multivitamin - 12 Injection 10 ML in NS w/... IV SCH (18:12)
--- NOTE | 2019-02-01 19:04 | History & Physical ---
History and Physical History & Physicial Dictated for Int Med-Dr Amador no. [id number]. Jose Benjamin MD Feb 01, 2019 19:04
--- NOTE | 2019-02-01 19:23 | NUR ---
HAND-OFF: Report given to CHAVA Coe.
--- NOTE | 2019-02-01 19:42 | NUR ---
NURSE NOTES: Received patient awake,alert,verbal,having loose bowel movement at this time, and still drinking the Nulytely.
--- NOTE | 2019-02-01 20:27 | Cardiology Report ---
APPROVED REPORT EXAM: Two-dimensional and M-mode echocardiogram with Doppler and color Doppler. INDICATION LV FUNCTION M-Mode DIMENSIONS IVSd1.0 (0.7-1.1cm)Left Atrium (MM)3.9 (1.6-4.0cm) LVDd2.5 (3.5-5.6cm)Aortic Root3.4 (2.0-3.7cm) PWd1.0 (0.7-1.1cm)Aortic Cusp Exc.2.0 (1.5-2.0cm) IVSs0.9 cm LVDs1.8 (2.5-4.0cm) PWs1.1 cm Normal left ventricular chamber size, systolic function and wall motion. Left ventricular ejection fraction estimated to be 60-65 %. No evidence of left ventricular hypertrophy . Anterior Echo-free space, may be due to pericardial fat or effusion. All other cardiac chamber sizes are within normal limits. Aortic valve calcification with normal cusp excursion . Mildly thickened mitral valve leaflets with normal excursion. Mild mitral annulus and aortic root calcification. Pulmonic valve not well visualized. IVC at normal size with physiologic collapse. A color flow and spectral Doppler study was performed and revealed: No aortic insufficiency . Mitral diastolic velocities suggest reduced left ventricular relaxation c/w mild LV diastolic dysfunction (Grade I ) Trace mitral regurgitation. Mild tricuspid regurgitation. Tricuspid systolic velocities suggests peak right ventricular systolic pressure of 25mmHg. There is increaed velocity of flow across the pulm valve and pulm artery bifurcation this may represent flow contamination by the aortic vavle and not ture pulmonic stenosis
[2019-02-01] MEDS ORDERED: Miralax 17gm pkt ORAL PRN (21:15)
[2019-02-01] MEDS ORDERED: Zolpidem 5mg tab ORAL PRN (21:15)
--- NOTE | 2019-02-01 21:15 | History and Physical Report ---
DATE OF ADMISSION: 01/31/2019 CHIEF COMPLAINT: The patient is a 58-year-old female, who presents with complaint of abdominal pain and distention. HISTORY OF PRESENT ILLNESS: This began one week prior to admission. The patient has history of alcohol abuse and ascites. The patient was scheduled for colonoscopy today, February 01, 2019. The patient presented to [facility] complaining of abdominal pain and abdominal distention. The patient was found to have gross ascites. The patient is admitted for ascites for paracentesis to rule out spontaneous bacterial peritonitis. REVIEW OF SYSTEMS: CONSTITUTIONAL: The patient denies weight loss or weight gain. The patient denies fevers or chills. HEENT: The patient denies ear or throat pain. The patient denies headache. CARDIOVASCULAR: The patient denies palpitations or chest pain. CHEST: The patient denies wheeze or shortness of breath. ABDOMINAL: The patient complains of generalized abdominal pain and distention as above. The patient denies nausea, vomiting, diarrhea, or constipation. GENITOURINARY: The patient denies dysuria or increased frequency of urination. NEUROMUSCULAR: The patient denies seizures or generalized weakness. PAST MEDICAL HISTORY: Significant for: 1. Diabetes type 2. 2. Hypertension. 3. History of alcohol dependence. 4. Ascites. PAST SURGICAL HISTORY: Significant for section x1. CURRENT MEDICATIONS: 1. Lipitor 80 mg p.o. nightly. 2. Losartan 100 mg p.o. daily. ALLERGIES: No known drug allergies. SOCIAL HISTORY: The patient is single and lives alone. The patient denies tobacco or alcohol use. PHYSICAL EXAMINATION: VITAL SIGNS: Temperature 97.9, respirations 18, pulse 90, blood pressure 132/80. GENERAL: The patient is a well-developed, well-nourished, slightly obese female, in no apparent distress. HEENT: Eyes, pupils equal and responsive to light and accommodation. Extraocular movements are intact. NECK: Supple without lymphadenopathy. CHEST: Lungs are clear to auscultation bilaterally without wheezes or rales. CARDIOVASCULAR: Regular rate. S1, S2 normal without murmurs, rubs, or gallops. ABDOMEN: Soft, distended with decreased bowel sounds. No evidence of hepatosplenomegaly. Currently, no rebound or guarding noted. EXTREMITIES: Negative for clubbing, cyanosis, or edema. RECTAL: Not performed. GENITAL: Not performed. NEUROLOGICAL: Cranial nerves II through XII are grossly intact without focal deficits. LABORATORY STUDIES: WBC 4.8, hemoglobin 8.1, hematocrit 26.6, platelets 70,000. Sodium 142, potassium 3.5, chloride 107, CO2 20, BUN 4, creatinine 0.9, glucose 118, lactic acid 6.10. Troponin 0.0. Total bilirubin elevated at 3.0, direct bilirubin elevated at 1.6, AST elevated at 40, alkaline phosphatase elevated at 301. Ammonia level elevated at 66. An x-ray of the abdomen revealed cholelithiasis. ASSESSMENT: This is a 58-year-old female with: 1. Abdominal pain. 2. Abdominal distention. 3. Alcohol abuse. 4. Ascites. 5. Diabetes. 6. Hypertension. TREATMENT: 1. Abdominal pain/distention. The patient is scheduled for paracentesis today, February 01, 2019. A Gastroenterology consultation has been obtained with Dr. Jon Torres. The patient has been started on Zosyn for possible spontaneous bacterial peritonitis. 2. Hypertension. Continue losartan as above. 3. Hypercholesterolemia. Continue atorvastatin as above. Jose Benjamin M.D. DR: Christianne JOB#: [id number] CC:
[2019-02-01] MEDS ORDERED: Fleet's Enema 133ml RECTAL SCH ×2 (23:00)
[2019-02-02 00:04] VITALS: BP 141/72
[2019-02-02] MEDS: Lactulose 20gm/30ml UDC ORAL SCH ×4 (00:13→22:39)
[2019-02-02 04:16] VITALS: BP 138/69
[2019-02-02] MEDS: Piperacillin/Tazobactam 3.375 GM in NS 110 ML IVPB SCH ×3 (04:50→22:47)
[2019-02-02 06:50] LABS: INR 1.4 (0.9-1.1)
[2019-02-02 07:16] LABS: ALANINE AMINOTRANSFERASE 17 U/L (12-78); ALBUMIN/GLOBULIN RATIO 0.6 (1.0-2.7); ALKALINE PHOSPHATASE 230 U/L (46-116); ANION GAP 9 mmol/L (5-15); ASPARTATE AMINO TRANSFERASE 40 U/L (15-37); BILIRUBIN,TOTAL 4.3 MG/DL (0.2-1.0); BLOOD UREA NITROGEN 6 mg/dL (7-18); CALCIUM 7.6 MG/DL (8.5-10.1); CARBON DIOXIDE 23 MMOL/L (21-32); CHLORIDE 108 MMOL/L (98-107); FERRITIN 38 NG/ML (8-388); POTASSIUM 3.1 MMOL/L (3.5-5.1); SODIUM 140 MMOL/L (136-145)
[2019-02-02 07:19] LABS: BILIRUBIN,DIRECT 2.2 MG/DL (0.0-0.3)
[2019-02-02 07:20] LABS: HEMATOCRIT 21.1 % (37.0-47.0); MEAN CORPUSCULAR VOLUME 76 FL (80-99); PLATELET COUNT 40 K/UL (150-450); RED BLOOD COUNT 2.77 M/UL (4.20-5.40); RED CELL DISTRIBUTION WIDTH 21.3 % (11.6-14.8)
--- NOTE | 2019-02-02 07:27 | NUR ---
HAND-OFF: Report given to Gosia Burks RN.
[2019-02-02 07:29] LABS: HEMOGLOBIN 6.5 G/DL (12.0-16.0); WHITE BLOOD COUNT 1.9 K/UL (4.8-10.8)
--- NOTE | 2019-02-02 07:34 | NUR ---
NURSE NOTES: Received report from Lokesh Coe. PT in bed, talkative, complaining of abdominal discomfort, noted ascites, plan for colonoscopy and EGD today, no apparent respiratory distress, bed in lowest position, call light within reach, IV running Zosyn according to order.
[2019-02-02 07:44] LABS: % IRON SATURATION 89 % (15-50); IRON 223 ug/dL (50-175); TOTAL IRON BINDING CAPACITY 250 ug/dL (250-450)
--- NOTE | 2019-02-02 07:47 | NUR ---
NURSE NOTES: Received report from CHAVA Elise. Patient A&Ox4, Italian speaking. On room air, no signs of distress or labored breathing. IV intact, patent, and infusing IV fluids. Bed in lowest position with call light in reach. Will continue with plan of care.
[2019-02-02 08:00] VITALS: BP 131/66
--- NOTE | 2019-02-02 08:08 | NUR ---
NURSE NOTES: 730: Critical lab WBC 1.9 and Hgb 6.5, Hct 21.1. 807: Notified Dr Khan of K 3.1, WBC, Hbg, Hct. Asked about replacing K and need for blood transfusion. Notified of pending EGD and Colonoscopy. 812: Notified Dr. Torres of labs and pending procedures. Asked if he would like to continue or hold off on procedures. Notified him that pt has only finished half of Golytley prep solution and was given Enema and Lactulose by CHAVA Mccann on cook night. Addendum: 02/02/19 at 08 by KORIN HOLLOWAY RN NURSE NOTES: 819: Spoke to CHAVA Ahn in GI lab regarding pt labs and order for 40 mEq KCL IV and transfusion order
[2019-02-02] MEDS ORDERED: Potassium Phosphate 20 MM in NS 275 ML IVPB ONE (08:30)
[2019-02-02] MEDS ORDERED: Sodium Chloride for KCL Premix X 4hrs IV SCH (09:00)
--- NOTE | 2019-02-02 09:45 | GI Progress Note ---
Assessment/Plan Problems: (1) Liver cirrhosis ICD Codes: K74.60 - Unspecified cirrhosis of liver SNOMED: 63108529 (2) Abdominal pain ICD Codes: R10.9 - Unspecified abdominal pain SNOMED: 59958873 (3) Ascites ICD Codes: R18.8 - Other ascites SNOMED: 877520311 Qualifiers: Qualified Codes: K70.31 - Alcoholic cirrhosis of liver with ascites (4) Thrombocytopenia ICD Codes: D69.6 - Thrombocytopenia, unspecified SNOMED: 313599191 (5) Coagulopathy ICD Codes: D68.9 - Coagulation defect, unspecified SNOMED: 84786416 (6) Anemia ICD Codes: D64.9 - Anemia, unspecified SNOMED: 756200054 Qualifiers: Qualified Codes: D64.9 - Anemia, unspecified (7) Alcohol intoxication ICD Codes: F10.929 - Alcohol use, unspecified with intoxication, unspecified SNOMED: 12026255 Qualifiers: Qualified Codes: F10.929 - Alcohol use, unspecified with intoxication, unspecified (8) Acute metabolic encephalopathy ICD Codes: G93.41 - Metabolic encephalopathy SNOMED: 52662182, 588180303 Status: unchanged Status Narrative Discussed with Dr. Torres. Assessment/Plan s/p paracentesis yielding 3.2 L, r/o SBP - cirrhotic liver noted Colonoscopy rescheduled due to low potassium and wbc - maintain CLD, NPO @ [place]. - hold all blood thinners monitor H&H, prn transfusions bowel regimen ppi low dose lactulose fu labs, trend LFTs The patient was seen and examined at bedside and all new and available data was reviewed in the patients chart. I agree with the above findings, impression and plan. (Patient seen earlier today. Signature stamp does not reflect patient encounter time.). - Jon Torres MD Subjective Gastrointestinal/Abdominal: Reports: no symptoms Objective Last 24 Hour Vital Signs Date Time Temp Pulse Resp B/P (MAP) Pulse Ox O2 Delivery O2 Flow Rate FiO2 02/02/19 08:00 98.7 82 18 131/66 (87) 98 02/02/19 04:16 98.7 81 18 138/69 (92) 99 02/02/19 00:04 99.7 83 20 141/72 (95) 96 02/01/19 21:20 Room Air 02/01/19 20:11 99.0 98 18 142/83 (102) 97 02/01/19 16:00 97.9 90 20 144/80 (101) 19 02/01/19 12:00 Room Air 02/01/19 12:00 98.5 91 20 147/76 (99) 97 Intake and Output 02/01/19 02/02/19 19:00 07:00 Intake Total 322.5 ml 817.5 ml Balance 322.5 ml 817.5 ml Intake Oral 240 ml IV Total 82.5 ml 817.5 ml # Voids 2 4 # Bowel Movements 3 Laboratory Tests Test 02/01/19 12:00 02/01/19 14:31 02/02/19 04:57 Erythrocyte Sedimentation Rate 52 MM/HR (0-30) H Reticulocyte Count 5.3 % (0.5-2.0) H 3.2 % (0.5-2.0) H Prothrombin Time 12.7 SEC (9.30-11.50) H 14.4 SEC (9.30-11.50) H Prothromb Time International Ratio 1.2 (0.9-1.1) H 1.4 (0.9-1.1) H Activated Partial Thromboplast Time 27 SEC (23-33) 29 SEC (23-33) Iron Level 197 ug/dL (50-175) H 223 ug/dL (50-175) H Total Iron Binding Capacity 286 ug/dL (250-450) 250 ug/dL (250-450) Percent Iron Saturation 69 % (15-50) H 89 % (15-50) H Unsaturated Iron Binding 89 ug/dL (112-346) L 27 ug/dL (112-346) L Lactate Dehydrogenase 244 U/L (81-234) H Carcinoembryonic Antigen Pending Pending Vitamin B12 Level 802 PG/ML (193-986) 766 PG/ML (193-986) Folate 21.5 NG/ML (8.6-58.9) 35.8 NG/ML (8.6-58.9) Body Fluid Source Peritoneal Body Fluid Volume 24 mL Body Fluid Appearance Yellow/clear (Clear) Body Fluid RBC 5500 /CUMM Body Fluid Total Nucleated Cells 48 /CUMM Body Fluid Polynuclear WBCs (%) 3 % Body Fluid Mononuclear WBCs (%) 96 % Body Fluid Mesothelial Cells (%) 1 % Body Fluid Glucose Pending Body Fluid Total Protein Pending Body Fluid Albumin Pending White Blood Count 1.9 K/UL (4.8-10.8) *L Red Blood Count 2.77 M/UL (4.20-5.40) L Hemoglobin 6.5 G/DL (12.0-16.0) *L Hematocrit 21.1 % (37.0-47.0) L Mean Corpuscular Volume 76 FL (80-99) L Mean Corpuscular Hemoglobin 23.5 PG (27.0-31.0) L Mean Corpuscular Hemoglobin Concent 30.9 G/DL (32.0-36.0) L Red Cell Distribution Width 21.3 % (11.6-14.8) H Platelet Count 40 K/UL (150-450) L Mean Platelet Volume 9.8 FL (6.5-10.1) Neutrophils (%) (Auto) % (45.0-75.0) Lymphocytes (%) (Auto) % (20.0-45.0) Monocytes (%) (Auto) % (1.0-10.0) Eosinophils (%) (Auto) % (0.0-3.0) Basophils (%) (Auto) % (0.0-2.0) Differential Total Cells Counted 100 Neutrophils % (Manual) 80 % (45-75) H Lymphocytes % (Manual) 11 % (20-45) L Monocytes % (Manual) 5 % (1-10) Eosinophils % (Manual) 4 % (0-3) H Basophils % (Manual) 0 % (0-2) Band Neutrophils 0 % (0-8) Platelet Estimate Decreased L Platelet Morphology Normal Anisocytosis 2+ Sodium Level 140 MMOL/L (136-145) Potassium Level 3.1 MMOL/L (3.5-5.1) L Chloride Level 108 MMOL/L (98-107) H Carbon Dioxide Level 23 MMOL/L (21-32) Anion Gap 9 mmol/L (5-15) Blood Urea Nitrogen 6 mg/dL (7-18) L Creatinine 1.0 MG/DL (0.55-1.30) Estimat Glomerular Filtration Rate 57.1 mL/min (>60) Glucose Level 108 MG/DL (74-106) H Calcium Level 7.6 MG/DL (8.5-10.1) L Ferritin 38 NG/ML (8-388) Total Bilirubin 4.3 MG/DL (0.2-1.0) H Direct Bilirubin 2.2 MG/DL (0.0-0.3) H Aspartate Amino Transf (AST/SGOT) 40 U/L (15-37) H Alanine Aminotransferase (ALT/SGPT) 17 U/L (12-78) Alkaline Phosphatase 230 U/L (46-116) H Total Protein 5.5 G/DL (6.4-8.2) L Albumin 2.0 G/DL (3.4-5.0) L Globulin 3.5 g/dL Albumin/Globulin Ratio 0.6 (1.0-2.7) L Free Thyroxine 1.23 NG/DL (0.76-1.46) Height (Feet): 5 Height (Inches): 5.00 Weight (Pounds): 198 General Appearance: WD/WN, no apparent distress, alert, overweight Cardiovascular: normal rate Respiratory/Chest: normal breath sounds, no respiratory distress Abdominal Exam: normal bowel sounds, non tender, soft Extremities: normal range of motion, non-tender Indu Lane NP Feb 02, 2019 09:45
[2019-02-02] MEDS ORDERED: Potassium Phosphate 20 MM in NS 275 ML IV ONE (10:00)
--- NOTE | 2019-02-02 11:56 | Internal Med Progress Note ---
Subjective Date of Service: Feb 02, 2019 Physician Name Jose Benjamin Attending Physician Goldy Amador MD Current Medications Medications (Trade) Dose Ordered Sig/Almaz Route PRN Reason Start Time Stop Time Status Last Admin Dose Admin Acetaminophen (Tylenol) 650 mg Q4H PRN ORAL T>100.5 02/01/19 13:15 03/02/19 21:14 Dextrose (Dextrose 50%) 25 ml Q30M PRN IV Hypoglycemia 02/01/19 13:15 03/02/19 21:14 Dextrose (Dextrose 50%) 50 ml Q30M PRN IV Hypoglycemia 02/01/19 13:15 03/02/19 21:44 Diphenhydramine HCl (Benadryl) 25 mg Q8H PRN ORAL Itching 02/01/19 18:15 03/03/19 18:14 02/01/19 18:38 Folic Acid 1 mg/ Magnesium Sulfate 2000 mg/ Multivitamins 10 ml/Potassium Chloride/Sodium Chloride 1,014.2 ml @ 125 mls/ hr Q24H IV 02/01/19 16:00 03/03/19 15:59 02/01/19 18:12 Lactulose (Cephulac) 15 gm Q8HR ORAL 02/02/19 14:00 03/03/19 00:00 Lorazepam (Ativan 2mg/ml 1ml) 0.5 mg Q4H PRN IV For Anxiety 02/01/19 13:15 02/07/19 21:14 Morphine Sulfate (Morphine Sulfate) 2 mg Q4H PRN IVP PAIN 4-10 02/01/19 13:15 02/07/19 21:14 Ondansetron HCl (Zofran) 4 mg Q6H PRN IVP Nausea & Vomiting 02/01/19 13:00 03/02/19 12:59 Piperacillin Sod/ Tazobactam Sod 3.375 gm/Sodium Chloride 110 ml @ 27.5 mls/hr EVERY 8 HOURS IVPB 02/01/19 14:00 02/06/19 13:59 02/02/19 04:50 Polyethylene Glycol (Miralax) 17 gm HSPRN PRN ORAL Constipation 02/01/19 21:15 03/02/19 21:14 Polyethylene Glycol (Miralax) 238 gm ONCE ONCE ORAL 02/02/19 16:00 02/02/19 16:01 Potassium Chloride 100 ml @ 100 mls/hr Q1HR IVPB 02/02/19 09:00 02/02/19 12:59 02/02/19 10:47 Sodium Chloride 400 ml @ 100 mls/hr Q4H IV 02/02/19 09:00 02/02/19 12:59 02/02/19 09:00 Zolpidem Tartrate (Ambien) 5 mg HSPRN PRN ORAL Insomnia 02/01/19 21:15 02/07/19 21:14 Allergies: Coded Allergies: No Known Allergies (Unverified , 01/31/19) ROS Limited/Unobtainable: No Constitutional: Reports: no symptoms HEENT: Reports: no symptoms Cardiovascular: Reports: no symptoms Respiratory: Reports: no symptoms Gastrointestinal/Abdominal: Reports: abdomen distended, abdominal pain Genitourinary: Reports: no symptoms Neurologic/Psychiatric: Reports: no symptoms Subjective 58 YO F admitted with abdominal pain and distention. Now ascites. Cover for Int Med-Dr Amador. S/P paracentesis 02/01/19 Objective Last Vital Signs Date Time Temp Pulse Resp B/P (MAP) Pulse Ox O2 Delivery O2 Flow Rate FiO2 02/02/19 08:00 98.7 82 18 131/66 (87) 98 02/01/19 21:20 Room Air Laboratory Tests Test 02/01/19 12:00 02/01/19 14:31 02/02/19 04:57 Erythrocyte Sedimentation Rate 52 MM/HR (0-30) H Reticulocyte Count 5.3 % (0.5-2.0) H 3.2 % (0.5-2.0) H Prothrombin Time 12.7 SEC (9.30-11.50) H 14.4 SEC (9.30-11.50) H Prothromb Time International Ratio 1.2 (0.9-1.1) H 1.4 (0.9-1.1) H Activated Partial Thromboplast Time 27 SEC (23-33) 29 SEC (23-33) Iron Level 197 ug/dL (50-175) H 223 ug/dL (50-175) H Total Iron Binding Capacity 286 ug/dL (250-450) 250 ug/dL (250-450) Percent Iron Saturation 69 % (15-50) H 89 % (15-50) H Unsaturated Iron Binding 89 ug/dL (112-346) L 27 ug/dL (112-346) L Lactate Dehydrogenase 244 U/L (81-234) H Carcinoembryonic Antigen 3.8 ng/mL (0.0-4.7) Pending Vitamin B12 Level 802 PG/ML (193-986) 766 PG/ML (193-986) Folate 21.5 NG/ML (8.6-58.9) 35.8 NG/ML (8.6-58.9) Body Fluid Source Peritoneal Body Fluid Volume 24 mL Body Fluid Appearance Yellow/clear (Clear) Body Fluid RBC 5500 /CUMM Body Fluid Total Nucleated Cells 48 /CUMM Body Fluid Polynuclear WBCs (%) 3 % Body Fluid Mononuclear WBCs (%) 96 % Body Fluid Mesothelial Cells (%) 1 % Body Fluid Glucose Pending Body Fluid Total Protein Pending Body Fluid Albumin Pending White Blood Count 1.9 K/UL (4.8-10.8) *L Red Blood Count 2.77 M/UL (4.20-5.40) L Hemoglobin 6.5 G/DL (12.0-16.0) *L Hematocrit 21.1 % (37.0-47.0) L Mean Corpuscular Volume 76 FL (80-99) L Mean Corpuscular Hemoglobin 23.5 PG (27.0-31.0) L Mean Corpuscular Hemoglobin Concent 30.9 G/DL (32.0-36.0) L Red Cell Distribution Width 21.3 % (11.6-14.8) H Platelet Count 40 K/UL (150-450) L Mean Platelet Volume 9.8 FL (6.5-10.1) Neutrophils (%) (Auto) % (45.0-75.0) Lymphocytes (%) (Auto) % (20.0-45.0) Monocytes (%) (Auto) % (1.0-10.0) Eosinophils (%) (Auto) % (0.0-3.0) Basophils (%) (Auto) % (0.0-2.0) Differential Total Cells Counted 100 Neutrophils % (Manual) 80 % (45-75) H Lymphocytes % (Manual) 11 % (20-45) L Monocytes % (Manual) 5 % (1-10) Eosinophils % (Manual) 4 % (0-3) H Basophils % (Manual) 0 % (0-2) Band Neutrophils 0 % (0-8) Platelet Estimate Decreased L Platelet Morphology Normal Anisocytosis 2+ Sodium Level 140 MMOL/L (136-145) Potassium Level 3.1 MMOL/L (3.5-5.1) L Chloride Level 108 MMOL/L (98-107) H Carbon Dioxide Level 23 MMOL/L (21-32) Anion Gap 9 mmol/L (5-15) Blood Urea Nitrogen 6 mg/dL (7-18) L Creatinine 1.0 MG/DL (0.55-1.30) Estimat Glomerular Filtration Rate 57.1 mL/min (>60) Glucose Level 108 MG/DL (74-106) H Calcium Level 7.6 MG/DL (8.5-10.1) L Ferritin 38 NG/ML (8-388) Total Bilirubin 4.3 MG/DL (0.2-1.0) H Direct Bilirubin 2.2 MG/DL (0.0-0.3) H Aspartate Amino Transf (AST/SGOT) 40 U/L (15-37) H Alanine Aminotransferase (ALT/SGPT) 17 U/L (12-78) Alkaline Phosphatase 230 U/L (46-116) H Total Protein 5.5 G/DL (6.4-8.2) L Albumin 2.0 G/DL (3.4-5.0) L Globulin 3.5 g/dL Albumin/Globulin Ratio 0.6 (1.0-2.7) L Free Thyroxine 1.23 NG/DL (0.76-1.46) Microbiology Date/Time Source Procedure Growth Status 01/31/19 20:30 Blood Blood Culture - Preliminary NO GROWTH AFTER 24 HOURS Resulted 01/31/19 20:15 Blood Blood Culture - Preliminary NO GROWTH AFTER 24 HOURS Resulted 02/01/19 01:35 Urine,Clean Catch Urine Culture - Preliminary Gram Negative Bacillus 1 Resulted 02/01/19 14:34 Abdominal Fluid Gram Stain Pending Resulted 02/01/19 14:34 Abdominal Fluid Body Fluid Culture - Preliminary NO GROWTH Resulted Intake and Output 02/01/19 02/02/19 19:00 07:00 Intake Total 322.5 ml 817.5 ml Balance 322.5 ml 817.5 ml Intake Oral 240 ml IV Total 82.5 ml 817.5 ml # Voids 2 4 # Bowel Movements 3 Objective PHYSICAL EXAMINATION: VITAL SIGNS: Temperature 97.9, respirations 18, pulse 90, blood pressure 132/80. GENERAL: The patient is a well-developed, well-nourished, slightly obese female, in no apparent distress. HEENT: Eyes, pupils equal and responsive to light and accommodation. Extraocular movements are intact. NECK: Supple without lymphadenopathy. CHEST: Lungs are clear to auscultation bilaterally without wheezes or rales. CARDIOVASCULAR: Regular rate. S1, S2 normal without murmurs, rubs, or gallops. ABDOMEN: Soft, distended with decreased bowel sounds. No evidence of hepatosplenomegaly. Currently, no rebound or guarding noted. EXTREMITIES: Negative for clubbing, cyanosis, or edema. RECTAL: Not performed. GENITAL: Not performed. NEUROLOGICAL: Cranial nerves II through XII are grossly intact without focal deficits. Assessment/Plan Assessment/Plan ASSESSMENT: This is a 58-year-old female with: 1. Abdominal pain. 2. Abdominal distention. 3. Alcohol abuse. 4. Ascites. 5. Diabetes. 6. Hypertension. TREATMENT: 1. Abdominal pain/distention. S/P paracentesis February 01, 2019. A Gastroenterology consultation has been obtained with Dr. Jon Torres. The patient has been started on Zosyn for possible spontaneous bacterial peritonitis. 2. Hypertension. Continue losartan as above. 3. Hypercholesterolemia. Continue atorvastatin as above. Jose Benjamin MD Feb 02, 2019 11:56
[2019-02-02 12:00] VITALS: BP 130/81
--- NOTE | 2019-02-02 12:00 | NUR ---
NURSE NOTES: Spoke with Dr. Benjamin regarding labs for today and planned EGD and Colonoscopy 02/03/2019. 1230 Call dietary for clear liquid diet as ordered
--- NOTE | 2019-02-02 12:13 | Pulmonology Progress Note ---
Assessment/Plan Problems: (1) Acute metabolic encephalopathy (2) Ascites (3) Anasarca (4) Alcohol intoxication (5) Coagulopathy (6) Thrombocytopenia (7) Anemia (8) Liver cirrhosis (9) Abdominal pain Assessment/Plan 3.6 liter drained from abdomen prbc today start lasix for 2-3 days. vitamin K librium check h/h in am consider comfort care. Subjective ROS Limited/Unobtainable: No Interval Events: 3.6 liters were drained fro ascites Allergies: Coded Allergies: No Known Allergies (Unverified , 01/31/19) Objective Last 24 Hour Vital Signs Date Time Temp Pulse Resp B/P (MAP) Pulse Ox O2 Delivery O2 Flow Rate FiO2 02/02/19 09:00 Room Air 02/02/19 08:00 98.7 82 18 131/66 (87) 98 02/02/19 04:16 98.7 81 18 138/69 (92) 99 02/02/19 00:04 99.7 83 20 141/72 (95) 96 02/01/19 21:20 Room Air 02/01/19 20:11 99.0 98 18 142/83 (102) 97 02/01/19 16:00 97.9 90 20 144/80 (101) 19 Intake and Output 02/01/19 02/02/19 19:00 07:00 Intake Total 322.5 ml 817.5 ml Balance 322.5 ml 817.5 ml Intake Oral 240 ml IV Total 82.5 ml 817.5 ml # Voids 2 4 # Bowel Movements 3 General Appearance: WD/WN HEENT: normocephalic, atraumatic Respiratory/Chest: chest wall non-tender, lungs clear Breasts: no masses Cardiovascular: normal rate Abdomen: soft, non tender, non distended, no scars Extremities: no cyanosis Skin: no rash Microbiology Date/Time Source Procedure Growth Status 01/31/19 20:30 Blood Blood Culture - Preliminary NO GROWTH AFTER 24 HOURS Resulted 01/31/19 20:15 Blood Blood Culture - Preliminary NO GROWTH AFTER 24 HOURS Resulted 02/01/19 01:35 Urine,Clean Catch Urine Culture - Preliminary Gram Negative Bacillus 1 Resulted 02/01/19 14:34 Abdominal Fluid Gram Stain Pending Resulted 02/01/19 14:34 Abdominal Fluid Body Fluid Culture - Preliminary NO GROWTH Resulted Laboratory Tests 02/01/19 14:31: Body Fluid Source Peritoneal, Body Fluid Volume 24, Body Fluid Appearance Yellow /clear, Body Fluid RBC 5500, Body Fluid Total Nucleated Cells 48, Body Fluid Polynuclear WBCs (%) 3, Body Fluid Mononuclear WBCs (%) 96, Body Fluid Mesothelial Cells (%) 1, Body Fluid Glucose [Pending], Body Fluid Total Protein [Pending], Body Fluid Albumin [Pending] 02/02/19 04:57: White Blood Count 1.9*L, Red Blood Count 2.77L, Hemoglobin 6.5*L, Hematocrit 21.1L, Mean Corpuscular Volume 76L, Mean Corpuscular Hemoglobin 23.5L, Mean Corpuscular Hemoglobin Concent 30.9L, Red Cell Distribution Width 21.3H, Platelet Count 40L, Mean Platelet Volume 9.8, Neutrophils (%) (Auto) , Lymphocytes (%) (Auto) , Monocytes (%) (Auto) , Eosinophils (%) (Auto) , Basophils (%) (Auto) , Differential Total Cells Counted 100, Neutrophils % ( Manual) 80H, Lymphocytes % (Manual) 11L, Monocytes % (Manual) 5, Eosinophils % ( Manual) 4H, Basophils % (Manual) 0, Band Neutrophils 0, Platelet Estimate DecreasedL, Platelet Morphology Normal, Anisocytosis 2+, Reticulocyte Count 3.2H , Prothrombin Time 14.4H, Prothromb Time International Ratio 1.4H, Activated Partial Thromboplast Time 29, Sodium Level 140, Potassium Level 3.1L, Chloride Level 108H, Carbon Dioxide Level 23, Anion Gap 9, Blood Urea Nitrogen 6L, Creatinine 1.0, Estimat Glomerular Filtration Rate 57.1, Glucose Level 108H, Calcium Level 7.6L, Iron Level 223H, Total Iron Binding Capacity 250, Percent Iron Saturation 89H, Unsaturated Iron Binding 27L, Ferritin 38, Total Bilirubin 4.3H, Direct Bilirubin 2.2H, Aspartate Amino Transf (AST/SGOT) 40H, Alanine Aminotransferase (ALT/SGPT) 17, Alkaline Phosphatase 230H, Total Protein 5.5L, Albumin 2.0L, Globulin 3.5, Albumin/Globulin Ratio 0.6L, Carcinoembryonic Antigen [Pending], Vitamin B12 Level 766, Folate 35.8, Free Thyroxine 1.23 Current Medications Medications (Trade) Dose Ordered Sig/Almaz Route PRN Reason Start Time Stop Time Status Last Admin Dose Admin Acetaminophen (Tylenol) 650 mg Q4H PRN ORAL T>100.5 02/01/19 13:15 03/02/19 21:14 Dextrose (Dextrose 50%) 25 ml Q30M PRN IV Hypoglycemia 02/01/19 13:15 03/02/19 21:14 Dextrose (Dextrose 50%) 50 ml Q30M PRN IV Hypoglycemia 02/01/19 13:15 03/02/19 21:44 Diphenhydramine HCl (Benadryl) 25 mg Q8H PRN ORAL Itching 02/01/19 18:15 03/03/19 18:14 02/01/19 18:38 Folic Acid 1 mg/ Magnesium Sulfate 2000 mg/ Multivitamins 10 ml/Potassium Chloride/Sodium Chloride 1,014.2 ml @ 125 mls/ hr Q24H IV 02/01/19 16:00 03/03/19 15:59 02/01/19 18:12 Lactulose (Cephulac) 15 gm Q8HR ORAL 02/02/19 14:00 03/03/19 00:00 Lorazepam (Ativan 2mg/ml 1ml) 0.5 mg Q4H PRN IV For Anxiety 02/01/19 13:15 02/07/19 21:14 Morphine Sulfate (Morphine Sulfate) 2 mg Q4H PRN IVP PAIN 4-10 02/01/19 13:15 02/07/19 21:14 Ondansetron HCl (Zofran) 4 mg Q6H PRN IVP Nausea & Vomiting 02/01/19 13:00 03/02/19 12:59 Piperacillin Sod/ Tazobactam Sod 3.375 gm/Sodium Chloride 110 ml @ 27.5 mls/hr EVERY 8 HOURS IVPB 02/01/19 14:00 02/06/19 13:59 02/02/19 04:50 Polyethylene Glycol (Miralax) 17 gm HSPRN PRN ORAL Constipation 02/01/19 21:15 03/02/19 21:14 Polyethylene Glycol (Miralax) 238 gm ONCE ONCE ORAL 02/02/19 16:00 02/02/19 16:01 Potassium Chloride (K-Dur) 40 meq ONCE ORAL 02/02/19 12:00 02/02/19 13:00 Zolpidem Tartrate (Ambien) 5 mg HSPRN PRN ORAL Insomnia 02/01/19 21:15 02/07/19 21:14 Shireen Khan MD Feb 02, 2019 12:12
--- NOTE | 2019-02-02 12:35 | NUR ---
NURSE NOTES: Spoke with Pt via billing analyst regarding chest rash and itching. Pt states it began prior to admission. Discussed with Dr. Khan, he is already aware and will order topical cream.
[2019-02-02] MEDS: Triamcinolone 0.5% Cr 15gm TOPIC SCH ×2 (14:18→17:18)
[2019-02-02] MEDS: Folic Acid 1 MG, Magnesium Sulfate 2,000 MG, Multivitamin - 12 Injection 10 ML in NS w/... IV SCH (15:59)
[2019-02-02 16:00] VITALS: BP 134/77
[2019-02-02] MEDS ORDERED: Polyethylene Glycol 238gm bottle ORAL ONE (16:00)
--- NOTE | 2019-02-02 19:03 | NUR ---
HAND-OFF: Report given to CHAVA Alicia.
[2019-02-02 20:00] VITALS: BP 119/60
[2019-02-02] MEDS ORDERED: NS 275ml ONE (20:50)
[2019-02-02] MEDS ORDERED: Tubing IV Secondary IV ONE (20:50)
[2019-02-03] VITALS: BP 117/59
[2019-02-03 04:00] VITALS: BP 127/61
[2019-02-03 05:41] LABS: HEMATOCRIT 25.9 % (37.0-47.0); HEMOGLOBIN 8.1 G/DL (12.0-16.0); MEAN CORPUSCULAR VOLUME 79 FL (80-99); PLATELET COUNT 46 K/UL (150-450); RED BLOOD COUNT 3.29 M/UL (4.20-5.40); RED CELL DISTRIBUTION WIDTH 21.8 % (11.6-14.8)
[2019-02-03 05:47] LABS: WHITE BLOOD COUNT 2.1 K/UL (4.8-10.8)
[2019-02-03 05:52] LABS: ANION GAP 9 mmol/L (5-15); BLOOD UREA NITROGEN 4 mg/dL (7-18); CALCIUM 7.7 MG/DL (8.5-10.1); CARBON DIOXIDE 27 MMOL/L (21-32); CHLORIDE 106 MMOL/L (98-107); CREATININE 1.1 MG/DL (0.55-1.30); SODIUM 140 MMOL/L (136-145)
[2019-02-03 06:00] LABS: INR 1.4 (0.9-1.1)
[2019-02-03] MEDS: Lactulose 20gm/30ml UDC ORAL SCH ×3 (06:00→22:00)
[2019-02-03 06:12] LABS: POTASSIUM 2.6 MMOL/L (3.5-5.1)
[2019-02-03] MEDS ORDERED: Sodium Chloride for KCL Premix X 4hrs IV SCH (07:00)
[2019-02-03] MEDS: Piperacillin/Tazobactam 3.375 GM in NS 110 ML IVPB SCH ×3 (07:00→22:30)
--- NOTE | 2019-02-03 07:10 | NUR ---
NURSE NOTES: Received report from CHAVA Alicia. Pt in bed, awake, talking on phone, A/Ox 4, Danish speaking only, ambulatory, IV abx running according to order, K 2.6, started bag 1 of 4 KCl mEq, pending Colonoscopy and EGD today at 1200, bowel prep finished at 1999, no complaints of pain, no apparent distress noted, call light within reach, bed in lowest position.
[2019-02-03 08:00] VITALS: BP 133/69
--- NOTE | 2019-02-03 08:01 | NUR ---
HAND-OFF: Report given to CHAVA Elise.
[2019-02-03] MEDS: Triamcinolone 0.5% Cr 15gm TOPIC SCH ×3 (08:46→16:39)
[2019-02-03 12:00] VITALS: BP 125/70
--- NOTE | 2019-02-03 12:26 | General Progress Note ---
Assessment/Plan Problem List: (1) Anasarca ICD Codes: R60.1 - Generalized edema SNOMED: 836015600, 437657989 (2) Alcohol intoxication ICD Codes: F10.929 - Alcohol use, unspecified with intoxication, unspecified SNOMED: 66046530 Qualifiers: Qualified Codes: F10.929 - Alcohol use, unspecified with intoxication, unspecified (3) Anemia ICD Codes: D64.9 - Anemia, unspecified SNOMED: 631514323 Qualifiers: Qualified Codes: D64.9 - Anemia, unspecified (4) Elevated lactic acid level ICD Codes: R79.89 - Other specified abnormal findings of blood chemistry SNOMED: 4351600 (5) Coagulopathy ICD Codes: D68.9 - Coagulation defect, unspecified SNOMED: 80463162 (6) Thrombocytopenia ICD Codes: D69.6 - Thrombocytopenia, unspecified SNOMED: 895714536 (7) Ascites ICD Codes: R18.8 - Other ascites SNOMED: 656020850 Qualifiers: Qualified Codes: K70.31 - Alcoholic cirrhosis of liver with ascites (8) Abdominal pain ICD Codes: R10.9 - Unspecified abdominal pain SNOMED: 36123126 (9) Liver cirrhosis ICD Codes: K74.60 - Unspecified cirrhosis of liver SNOMED: 33930682 (10) ETOH abuse ICD Codes: F10.10 - Alcohol abuse, uncomplicated SNOMED: 27232427 Status: unchanged Assessment/Plan: colonoscopy canceled by anesthesia again due to low K will plan for tomorrow abd us hepatitis panel stool ob repeat labs s/p paracentesis will add diuretics post colonoscopy Subjective ROS Limited/Unobtainable: Yes Allergies: Coded Allergies: No Known Allergies (Unverified , 01/31/19) Objective Last 24 Hour Vital Signs Date Time Temp Pulse Resp B/P (MAP) Pulse Ox O2 Delivery O2 Flow Rate FiO2 02/03/19 09:00 Room Air 02/03/19 08:00 98.2 78 18 133/69 (90) 98 02/03/19 04:00 98.1 79 19 127/61 (83) 95 02/03/19 00:00 98.3 76 18 117/59 (78) 95 02/02/19 21:00 Room Air 02/02/19 20:00 98.3 75 18 119/60 (79) 97 02/02/19 16:00 98.2 82 18 134/77 (96) 97 Intake and Output 02/02/19 02/03/19 19:00 07:00 Intake Total 1637.5 ml Output Total 1 ml Balance 1636.5 ml Intake Oral 1200 ml IV Total 137.5 ml Blood Product 300 ml Output Urine Total 1 ml # Voids 6 8 # Bowel Movements 3 Laboratory Tests 02/03/19 05:28: White Blood Count 2.1*L, Red Blood Count 3.29L, Hemoglobin 8.1L, Hematocrit 25.9L, Mean Corpuscular Volume 79L, Mean Corpuscular Hemoglobin 24.5L, Mean Corpuscular Hemoglobin Concent 31.1L, Red Cell Distribution Width 21.8H, Platelet Count 46L, Mean Platelet Volume 9.3, Neutrophils (%) (Auto) , Lymphocytes (%) (Auto) , Monocytes (%) (Auto) , Eosinophils (%) (Auto) , Basophils (%) (Auto) , Differential Total Cells Counted 100, Neutrophils % ( Manual) 58, Lymphocytes % (Manual) 31, Monocytes % (Manual) 8, Eosinophils % ( Manual) 3, Basophils % (Manual) 0, Band Neutrophils 0, Platelet Estimate DecreasedL, Platelet Morphology Normal, Polychromasia 1+, Hypochromasia 1+, Anisocytosis 3+, Microcytosis 1+, Prothrombin Time 14.7H, Prothromb Time International Ratio 1.4H, Activated Partial Thromboplast Time 28, Sodium Level 140, Potassium Level 2.6*L, Chloride Level 106, Carbon Dioxide Level 27, Anion Gap 9, Blood Urea Nitrogen 4L, Creatinine 1.1, Estimat Glomerular Filtration Rate 51.2, Glucose Level 92, Calcium Level 7.7L Height (Feet): 5 Height (Inches): 5.00 Weight (Pounds): 198 General Appearance: alert EENT: normal ENT inspection Neck: supple Cardiovascular: normal rate Respiratory/Chest: decreased breath sounds Abdomen: soft, distended Extremities: non-tender Jon Torres MD Feb 03, 2019 12:26
--- NOTE | 2019-02-03 13:28 | NUR ---
RD ASSESSMENT & RECOMMENDATIONS SEE CARE ACTIVITY FOR COMPLETE ASSESSMENT DAILY ESTIMATED NEEDS: Needs based on cirrhosis, ascites/ 57kg 25-30 kcals/kg 7860-6770 total kcals 1-1.5 g protein/kg 57-86 g total protein 20-25 mL/kg 8064-1860 total fluid mLs NUTRITION DIAGNOSIS: Altered nutrition related lab values R/T alcoholic cirrhosis, clinical condition as evidenced by elev T bili (4.3), elev LFTs, elev NH3 (42), critically low K (2.6), serum alcohol of 233, critically low wbc (2.1). CURRENT DIET:CLD PO DIET RECOMMENDATIONS: ADVANCE DIET PER MD -> LOW NA, NEUTROPENIC diet ADDITIONAL RECOMMENDATIONS: * Standing wt for accurate CBW * Monitor lytes, replete as needed (low K) * Rec neutropenic diet: critically low wbc
[2019-02-03 16:00] VITALS: BP 146/81
--- NOTE | 2019-02-03 16:35 | NUR ---
[employer]PER[employer] SI:ASCITES S/P PARACENTESIS . ANASARCA VS: BP 146/81, P 77, T 98.1, RR 17, SPO2 95 WBC 2.1, RBC 3.29, H&H 8.1/25.9, Plt. COUNT 46, K 2.6, BUN 4 IS:ZOSYN 110ml IVPB LASIX 20mg IV POTASSIUM CHLORIDE 100ml IVPB NS 400ML IV BANANA BAG 1L IV MED/SURG STATUS
[2019-02-03] MEDS: Folic Acid 1 MG, Magnesium Sulfate 2,000 MG, Multivitamin - 12 Injection 10 ML in NS w/... IV SCH (16:39)
--- NOTE | 2019-02-03 19:36 | NUR ---
HAND-OFF: Report given to CHAVA Alicia.
--- NOTE | 2019-02-03 19:47 | Internal Med Progress Note ---
Subjective Date of Service: Feb 03, 2019 Physician Name Jose Benjamin Attending Physician Goldy Amador MD Current Medications Medications (Trade) Dose Ordered Sig/Almaz Route PRN Reason Start Time Stop Time Status Last Admin Dose Admin Acetaminophen (Tylenol) 650 mg Q4H PRN ORAL T>100.5 02/01/19 13:15 03/02/19 21:14 Dextrose (Dextrose 50%) 25 ml Q30M PRN IV Hypoglycemia 02/01/19 13:15 03/02/19 21:14 Dextrose (Dextrose 50%) 50 ml Q30M PRN IV Hypoglycemia 02/01/19 13:15 03/02/19 21:44 Diphenhydramine HCl (Benadryl) 25 mg Q8H PRN ORAL Itching 02/01/19 18:15 03/03/19 18:14 02/01/19 18:38 Folic Acid 1 mg/ Magnesium Sulfate 2000 mg/ Multivitamins 10 ml/Potassium Chloride/Sodium Chloride 1,014.2 ml @ 125 mls/ hr Q24H IV 02/01/19 16:00 03/03/19 15:59 02/03/19 16:39 Furosemide (Lasix) 20 mg EVERY 8 HOURS IV 02/02/19 14:00 03/04/19 13:59 02/03/19 14:14 Lactulose (Cephulac) 15 gm Q8HR ORAL 02/02/19 14:00 03/03/19 00:00 02/03/19 14:14 Lorazepam (Ativan 2mg/ml 1ml) 0.5 mg Q4H PRN IV For Anxiety 02/01/19 13:15 02/07/19 21:14 Morphine Sulfate (Morphine Sulfate) 2 mg Q4H PRN IVP PAIN 4-10 02/01/19 13:15 02/07/19 21:14 Ondansetron HCl (Zofran) 4 mg Q6H PRN IVP Nausea & Vomiting 02/01/19 13:00 03/02/19 12:59 Piperacillin Sod/ Tazobactam Sod 3.375 gm/Sodium Chloride 110 ml @ 27.5 mls/hr EVERY 8 HOURS IVPB 02/01/19 14:00 02/06/19 13:59 02/03/19 14:14 Polyethylene Glycol (Miralax) 17 gm HSPRN PRN ORAL Constipation 02/01/19 21:15 03/02/19 21:14 Triamcinolone Acetonide (Kenalog 0.5% Cr) 1 applic THREE TIMES A DAY TOPIC 02/02/19 14:00 03/04/19 13:59 02/03/19 16:39 Zolpidem Tartrate (Ambien) 5 mg HSPRN PRN ORAL Insomnia 02/01/19 21:15 02/07/19 21:14 Allergies: Coded Allergies: No Known Allergies (Unverified , 01/31/19) ROS Limited/Unobtainable: No Constitutional: Reports: no symptoms HEENT: Reports: no symptoms Cardiovascular: Reports: no symptoms Respiratory: Reports: no symptoms Gastrointestinal/Abdominal: Reports: abdomen distended, abdominal pain Genitourinary: Reports: no symptoms Neurologic/Psychiatric: Reports: no symptoms Subjective 58 YO F admitted with abdominal pain and distention. Now ascites. Cover for Int Eloy-Dr Amador. S/P paracentesis 02/01/19 Objective Last Vital Signs Date Time Temp Pulse Resp B/P (MAP) Pulse Ox O2 Delivery O2 Flow Rate FiO2 02/03/19 16:00 98.1 77 17 146/81 (102) 99 02/03/19 09:00 Room Air Laboratory Tests Test 02/03/19 05:28 White Blood Count 2.1 K/UL (4.8-10.8) *L Red Blood Count 3.29 M/UL (4.20-5.40) L Hemoglobin 8.1 G/DL (12.0-16.0) L Hematocrit 25.9 % (37.0-47.0) L Mean Corpuscular Volume 79 FL (80-99) L Mean Corpuscular Hemoglobin 24.5 PG (27.0-31.0) L Mean Corpuscular Hemoglobin Concent 31.1 G/DL (32.0-36.0) L Red Cell Distribution Width 21.8 % (11.6-14.8) H Platelet Count 46 K/UL (150-450) L Mean Platelet Volume 9.3 FL (6.5-10.1) Neutrophils (%) (Auto) % (45.0-75.0) Lymphocytes (%) (Auto) % (20.0-45.0) Monocytes (%) (Auto) % (1.0-10.0) Eosinophils (%) (Auto) % (0.0-3.0) Basophils (%) (Auto) % (0.0-2.0) Differential Total Cells Counted 100 Neutrophils % (Manual) 58 % (45-75) Lymphocytes % (Manual) 31 % (20-45) Monocytes % (Manual) 8 % (1-10) Eosinophils % (Manual) 3 % (0-3) Basophils % (Manual) 0 % (0-2) Band Neutrophils 0 % (0-8) Platelet Estimate Decreased L Platelet Morphology Normal Polychromasia 1+ Hypochromasia 1+ Anisocytosis 3+ Microcytosis 1+ Prothrombin Time 14.7 SEC (9.30-11.50) H Prothromb Time International Ratio 1.4 (0.9-1.1) H Activated Partial Thromboplast Time 28 SEC (23-33) Sodium Level 140 MMOL/L (136-145) Potassium Level 2.6 MMOL/L (3.5-5.1) *L Chloride Level 106 MMOL/L (98-107) Carbon Dioxide Level 27 MMOL/L (21-32) Anion Gap 9 mmol/L (5-15) Blood Urea Nitrogen 4 mg/dL (7-18) L Creatinine 1.1 MG/DL (0.55-1.30) Estimat Glomerular Filtration Rate 51.2 mL/min (>60) Glucose Level 92 MG/DL (74-106) Calcium Level 7.7 MG/DL (8.5-10.1) L Microbiology Date/Time Source Procedure Growth Status 01/31/19 20:30 Blood Blood Culture - Preliminary NO GROWTH AFTER 48 HOURS Resulted 01/31/19 20:15 Blood Blood Culture - Preliminary NO GROWTH AFTER 48 HOURS Resulted 02/01/19 01:35 Urine,Clean Catch Urine Culture - Final Klebsiella Pneumoniae Complete 02/01/19 14:34 Abdominal Fluid Gram Stain - Final Resulted 02/01/19 14:34 Abdominal Fluid Body Fluid Culture - Preliminary NO GROWTH AFTER 24 HOURS Resulted Intake and Output 02/02/19 02/03/19 19:00 07:00 Intake Total 1637.5 ml Output Total 1 ml Balance 1636.5 ml Intake Oral 1200 ml IV Total 137.5 ml Blood Product 300 ml Output Urine Total 1 ml # Voids 6 8 # Bowel Movements 3 Objective PHYSICAL EXAMINATION: VITAL SIGNS: Temperature 97.9, respirations 18, pulse 90, blood pressure 132/80. GENERAL: The patient is a well-developed, well-nourished, slightly obese female, in no apparent distress. HEENT: Eyes, pupils equal and responsive to light and accommodation. Extraocular movements are intact. NECK: Supple without lymphadenopathy. CHEST: Lungs are clear to auscultation bilaterally without wheezes or rales. CARDIOVASCULAR: Regular rate. S1, S2 normal without murmurs, rubs, or gallops. ABDOMEN: Soft, distended with decreased bowel sounds. No evidence of hepatosplenomegaly. Currently, no rebound or guarding noted. EXTREMITIES: Negative for clubbing, cyanosis, or edema. RECTAL: Not performed. GENITAL: Not performed. NEUROLOGICAL: Cranial nerves II through XII are grossly intact without focal deficits. Assessment/Plan Assessment/Plan ASSESSMENT: This is a 58-year-old female with: 1. Abdominal pain. 2. Abdominal distention. 3. Alcohol abuse. 4. Ascites. 5. Diabetes. 6. Hypertension. 7. Anemia TREATMENT: 1. Abdominal pain/distention. S/P paracentesis February 01, 2019. A Gastroenterology consultation has been obtained with Dr. Jon Torres. The patient has been started on Zosyn for possible spontaneous bacterial peritonitis. 2. Hypertension. Continue losartan as above. 3. Hypercholesterolemia. Continue atorvastatin as above. 4. S/P transfusion1 unit PRBC 02/02/19 Jose Benjamin MD Feb 03, 2019 19:47
[2019-02-03 20:00] VITALS: BP 133/74
--- NOTE | 2019-02-03 20:02 | NUR ---
NURSE NOTES: Received report from CHAVA Elise. Patient [place] Citizen speaking, A&Ox4. On room air, no signs of distress or labored breathing. IV intact, patent, and infusing IV fluids. Bed in lowest position with call light in reach. Will continue with plan of care.
[2019-02-04] VITALS: BP 137/69
[2019-02-04 04:00] VITALS: BP 136/69
[2019-02-04] MEDS: Piperacillin/Tazobactam 3.375 GM in NS 110 ML IVPB SCH ×2 (05:24→21:31)
[2019-02-04] MEDS: Lactulose 20gm/30ml UDC ORAL SCH ×2 (05:24→21:37)
[2019-02-04 06:55] LABS: HEMATOCRIT 28.7 % (37.0-47.0); HEMOGLOBIN 8.9 G/DL (12.0-16.0); MEAN CORPUSCULAR VOLUME 80 FL (80-99); PLATELET COUNT 62 K/UL (150-450); RED BLOOD COUNT 3.59 M/UL (4.20-5.40); RED CELL DISTRIBUTION WIDTH 22.3 % (11.6-14.8); WHITE BLOOD COUNT 4.1 K/UL (4.8-10.8)
--- NOTE | 2019-02-04 07:09 | NUR ---
NURSE NOTES: received report from CHAVA Moreno. patient in bed. A&Ox4, verbally responsive. no respiratory distress noted on room air. no c/o pain at this time. PICC line on left upper arm running fluid. no s/sx of infection. F/C draining. yellow. no odor. no hematuria. P200 chase for wound management. bed in the lowest position. call light within reach. is in the bedside. will continue to monitor. Addendum: 02/04/19 at 0713 by DOMO BRANCH RN wrong patient
[2019-02-04 07:24] LABS: ALANINE AMINOTRANSFERASE 34 U/L (12-78); ALBUMIN 2.5 G/DL (3.4-5.0); ALBUMIN/GLOBULIN RATIO 0.6 (1.0-2.7); ALKALINE PHOSPHATASE 258 U/L (46-116); AMMONIA 68 umol/L (11-32); ANION GAP 11 mmol/L (5-15); ASPARTATE AMINO TRANSFERASE 79 U/L (15-37); BILIRUBIN,TOTAL 2.9 MG/DL (0.2-1.0); BLOOD UREA NITROGEN 5 mg/dL (7-18); CALCIUM 7.9 MG/DL (8.5-10.1); CARBON DIOXIDE 26 MMOL/L (21-32); CHLORIDE 103 MMOL/L (98-107); POTASSIUM 3.6 MMOL/L (3.5-5.1); SODIUM 140 MMOL/L (136-145)
[2019-02-04 07:26] LABS: BILIRUBIN,DIRECT 1.3 MG/DL (0.0-0.3)
--- NOTE | 2019-02-04 07:49 | NUR ---
NURSE NOTES: received report from CHAVA Alicia. patient in bed. alert. verbally responsive. no respiratory distress noted on room air. no c/o pain at this time. NPO for colonoscopy on today @1200. Potassium 3.6 this morning. ambulatory using bedside comode. IV on LH 24G running ATB. intact. bed in the lowest position. call light within reach. will continue to monitor and provide plan of care.
[2019-02-04] MEDS ORDERED: Lidocaine 1% MPF 10mg/ml 5ml ONE (08:00)
[2019-02-04] MEDS ORDERED: Propofol 200mg/20ml IV ONE (08:00)
--- NOTE | 2019-02-04 08:14 | NUR ---
HAND-OFF: Report given to CHAVA Cabrera.
--- NOTE | 2019-02-04 08:25 | Anethesia Preoperative Eval ---
Anesthesia Pre-op PMH/ROS General Date of Evaluation: Feb 04, 2019 Time of Evaluation: 08:18 Anesthesiologist: leno ASA Score: ASA 4 Mallampati Score Class I : Soft palate, uvula, fauces, pillars visible Class II: Soft palate, uvula, fauces visible Class III: Soft palate, base of uvula visible Class IV: Only hard plate visible Mallampati Classification: Class II Surgeon: sam Diagnosis: ascites, abdominal pain Surgical Procedure: egd/colonoscopy Anesthesia History: none Social History: alcohol use Family History: no anesthesia problems Allergies: Coded Allergies: No Known Allergies (Unverified , 01/31/19) Medications: see eMAR Patient NPO?: Yes Past Medical History Cardiovascular: Reports: HTN Gastrointestinal/Genitourinary: Reports: other - ascites, cirrhosis, Endocrine: Reports: DM Hematology/Immune: Reports: anemia, bleeding disorder - thrombocytopenia, coagulapathy Anesthesia Pre-op Phys. Exam Physician Exam Last Vital Signs Date Time Temp Pulse Resp B/P (MAP) Pulse Ox O2 Delivery O2 Flow Rate FiO2 02/04/19 04:00 98.0 64 19 136/69 (91) 96 02/03/19 21:00 Room Air Constitutional: NAD Neurologic: CN 2-12 intact Cardiovascular: RRR Respiratory: CTA Gastrointestinal: S/NT/ND Airway Exam Mallampati Score: Class II MO: limited Neck: flexible TMD: 2fb ROM: limited Anesthesia Pre-op A/P Labs Hematology Test 02/04/19 05:50 White Blood Count 4.1 K/UL (4.8-10.8) #L Red Blood Count 3.59 M/UL (4.20-5.40) L Hemoglobin 8.9 G/DL (12.0-16.0) L Hematocrit 28.7 % (37.0-47.0) L Mean Corpuscular Volume 80 FL (80-99) Mean Corpuscular Hemoglobin 24.8 PG (27.0-31.0) L Mean Corpuscular Hemoglobin Concent 31.0 G/DL (32.0-36.0) L Red Cell Distribution Width 22.3 % (11.6-14.8) H Platelet Count 62 K/UL (150-450) L Mean Platelet Volume 9.2 FL (6.5-10.1) Neutrophils (%) (Auto) % (45.0-75.0) Lymphocytes (%) (Auto) % (20.0-45.0) Monocytes (%) (Auto) % (1.0-10.0) Eosinophils (%) (Auto) % (0.0-3.0) Basophils (%) (Auto) % (0.0-2.0) Differential Total Cells Counted 100 Neutrophils % (Manual) 78 % (45-75) H Lymphocytes % (Manual) 17 % (20-45) L Monocytes % (Manual) 3 % (1-10) Eosinophils % (Manual) 1 % (0-3) Basophils % (Manual) 1 % (0-2) Band Neutrophils 0 % (0-8) Platelet Estimate Decreased L Platelet Morphology Normal Hypochromasia 2+ Anisocytosis 3+ Chemistry Test 02/03/19 20:26 02/04/19 05:50 Potassium Level 3.0 MMOL/L (3.5-5.1) L 3.6 MMOL/L (3.5-5.1) Sodium Level 140 MMOL/L (136-145) Chloride Level 103 MMOL/L (98-107) Carbon Dioxide Level 26 MMOL/L (21-32) Anion Gap 11 mmol/L (5-15) Blood Urea Nitrogen 5 mg/dL (7-18) L Creatinine 1.0 MG/DL (0.55-1.30) Estimat Glomerular Filtration Rate 57.1 mL/min (>60) Glucose Level 98 MG/DL (74-106) Calcium Level 7.9 MG/DL (8.5-10.1) L Total Bilirubin 2.9 MG/DL (0.2-1.0) H Direct Bilirubin 1.3 MG/DL (0.0-0.3) H Aspartate Amino Transf (AST/SGOT) 79 U/L (15-37) H Alanine Aminotransferase (ALT/SGPT) 34 U/L (12-78) Alkaline Phosphatase 258 U/L (46-116) H Ammonia 68 umol/L (11-32) H Total Protein 6.4 G/DL (6.4-8.2) Albumin 2.5 G/DL (3.4-5.0) L Globulin 3.9 g/dL Albumin/Globulin Ratio 0.6 (1.0-2.7) L Risk Assessment & Plan Assessment: [email or web address] Plan: mac Status Change Before Surgery: No Pre-Antibiotics Drug: Roopa Barrera MD Feb 04, 2019 08:25
[2019-02-04] MEDS ORDERED: Midazolam 2mg/2ml Inj IVP PRN (08:30)
[2019-02-04] MEDS ORDERED: fentaNYL 100 mcg/2 mL IV PRN (08:30)
[2019-02-04] MEDS ORDERED: Atropine Inj 1mg/10ml Syr IV PRN ×2 (08:30→17:15)
[2019-02-04] MEDS ORDERED: DiphenhydrAMINE 50mg/ml Inj IVP PRN ×2 (08:30→17:15)
[2019-02-04] MEDS: Triamcinolone 0.5% Cr 15gm TOPIC SCH ×3 (09:05→18:04)
--- NOTE | 2019-02-04 09:41 | Pre-Procedure Note/Attestation ---
Pre-Procedure Note/Attestation Complete Prior to Procedure Planned Procedure: not applicable Procedure Narrative: esophagogastroduodenoscopy and colonoscopy Indications for Procedure Pre-Operative Diagnosis: gib, anemia Attestation I attest that I discussed the nature of the procedure; its benefits; risks and complications; and alternatives (and the risks and benefits of such alternatives ), prior to the procedure, with the patient (or the patient's legal student services representative). I attest that, if there was a reasonable possibility of needing a blood transfusion, the patient (or the patient's legal student services representative) was given the [facility] standardized written summary, pursuant to the [place] Blood Safety Act ([place] Health and Safety Code # 1645, as amended). I attest that I re-evaluated the patient just prior to the surgery and that there has been no change in the patient's H&P, except as documented below: Jon Torres MD Feb 04, 2019 09:41
--- NOTE | 2019-02-04 09:43 | General Progress Note ---
Assessment/Plan Problem List: (1) Anasarca ICD Codes: R60.1 - Generalized edema SNOMED: 330116274, 839949933 (2) Alcohol intoxication ICD Codes: F10.929 - Alcohol use, unspecified with intoxication, unspecified SNOMED: 64907689 Qualifiers: Qualified Codes: F10.929 - Alcohol use, unspecified with intoxication, unspecified (3) Anemia ICD Codes: D64.9 - Anemia, unspecified SNOMED: 547268864 Qualifiers: Qualified Codes: D64.9 - Anemia, unspecified (4) Elevated lactic acid level ICD Codes: R79.89 - Other specified abnormal findings of blood chemistry SNOMED: 8796074 (5) Coagulopathy ICD Codes: D68.9 - Coagulation defect, unspecified SNOMED: 45963830 (6) Thrombocytopenia ICD Codes: D69.6 - Thrombocytopenia, unspecified SNOMED: 259083273 (7) Ascites ICD Codes: R18.8 - Other ascites SNOMED: 102947667 Qualifiers: Qualified Codes: K70.31 - Alcoholic cirrhosis of liver with ascites (8) Abdominal pain ICD Codes: R10.9 - Unspecified abdominal pain SNOMED: 97682215 (9) Liver cirrhosis ICD Codes: K74.60 - Unspecified cirrhosis of liver SNOMED: 59470814 (10) ETOH abuse ICD Codes: F10.10 - Alcohol abuse, uncomplicated SNOMED: 62116106 Status: unchanged Assessment/Plan: abd us>> reviewed hepatitis panel>> reviewed stool ob repeat labs s/p paracentesis will add diuretics post colonoscopy Subjective ROS Limited/Unobtainable: Yes Allergies: Coded Allergies: No Known Allergies (Unverified , 01/31/19) Objective Last 24 Hour Vital Signs Date Time Temp Pulse Resp B/P (MAP) Pulse Ox O2 Delivery O2 Flow Rate FiO2 02/04/19 04:00 98.0 64 19 136/69 (91) 96 02/04/19 00:00 97.1 83 20 137/69 (91) 98 02/03/19 21:00 Room Air 02/03/19 20:00 97.9 79 20 133/74 (93) 95 02/03/19 16:00 98.1 77 17 146/81 (102) 99 02/03/19 12:00 98.2 77 18 125/70 (88) 98 Intake and Output 02/03/19 02/04/19 19:00 07:00 Intake Total 387.5 ml 750 ml Balance 387.5 ml 750 ml Intake Oral 360 ml IV Total 27.5 ml 750 ml # Voids 6 2 # Bowel Movements 5 Laboratory Tests 02/03/19 20:26: Potassium Level 3.0L 02/04/19 05:50: Potassium Level 3.6, White Blood Count 4.1#L, Red Blood Count 3.59L, Hemoglobin 8.9L, Hematocrit 28.7L, Mean Corpuscular Volume 80, Mean Corpuscular Hemoglobin 24.8L, Mean Corpuscular Hemoglobin Concent 31.0L, Red Cell Distribution Width 22.3H, Platelet Count 62L, Mean Platelet Volume 9.2, Neutrophils (%) (Auto) , Lymphocytes (%) (Auto) , Monocytes (%) (Auto) , Eosinophils (%) (Auto) , Basophils (%) (Auto) , Differential Total Cells Counted 100, Neutrophils % ( Manual) 78H, Lymphocytes % (Manual) 17L, Monocytes % (Manual) 3, Eosinophils % ( Manual) 1, Basophils % (Manual) 1, Band Neutrophils 0, Platelet Estimate DecreasedL, Platelet Morphology Normal, Hypochromasia 2+, Anisocytosis 3+, Sodium Level 140, Chloride Level 103, Carbon Dioxide Level 26, Anion Gap 11, Blood Urea Nitrogen 5L, Creatinine 1.0, Estimat Glomerular Filtration Rate 57.1 , Glucose Level 98, Calcium Level 7.9L, Total Bilirubin 2.9H, Direct Bilirubin 1.3H, Aspartate Amino Transf (AST/SGOT) 79H, Alanine Aminotransferase (ALT/SGPT ) 34, Alkaline Phosphatase 258H, Ammonia 68H, Total Protein 6.4, Albumin 2.5L, Globulin 3.9, Albumin/Globulin Ratio 0.6L, Hepatitis A IgM Antibody [Pending], Hepatitis B Surface Antigen [Pending], Hepatitis B Core IgM Antibody [Pending], Hepatitis C Antibody [Pending] Height (Feet): 5 Height (Inches): 5.00 Weight (Pounds): 198 General Appearance: alert EENT: normal ENT inspection Neck: supple Cardiovascular: normal rate Respiratory/Chest: decreased breath sounds Abdomen: normal bowel sounds, non tender, soft Extremities: non-tender Jon Torres MD Feb 04, 2019 09:43
[2019-02-04] MEDS ORDERED: NS 500ML IVPB ONE (09:50)
--- NOTE | 2019-02-04 10:51 | Endoscopy Procedure Note ---
Endoscopy Procedure Note General Indication for Procedure: gib Procedures Performed: EGD Operative Findings/Diagnosis: active bleed from a doulafoy lesion Specimen: none Pt Tolerated Procedure Well: Yes Estimated Blood Loss: none Anesthesia Anesthesiologist: leno Anesthesia: MAC Inserted Devices Implant(s) used?: No GI Core Measures 50 yrs or older w/o bx or poly: Not Applicable 10yrs. F/U recommended: Not Applicable Jon Torres MD Feb 04, 2019 10:51
[2019-02-04] MEDS ORDERED: Midazolam 2mg/2ml Inj ONE (11:38)
--- NOTE | 2019-02-04 11:40 | NUR ---
RECEIVED PT, FR GI LAB S/P EGD PT, INTUBATED FR, GI LAB DUE TO BROCHOSPASM UPON TX,TOICU PT AWAKE AND RESTRESS, PLACED ON WEANING PAROMETER X5MIN PT A/A FOLLOWING COMANDS EXTUBATED PLACED ON 02 3L/NC HOB UP @ 45 / SAT 100% ENCOURAGED TAKE DEEP BREATH/ COUGH WILLFOW/ REINFORCED
--- NOTE | 2019-02-04 11:40 | NUR ---
RESPIRATORY NOTE: Received a call for GI lab nurse to transfer pt to ICU.Pt was orally intubated in GI lab with ETT size 7.0 @21cm lips line, secured by tape per Dr. Morse. Transferred pt to ICU safely and put pt to vent with vent settings given by Dr. Morse: AC 14-400ml- 100%- peep 5 @1124. Replaced the tape by anchor fast to secure the ETT @21 cm lips line. Pt was sedated but still really agitated. Dr. Morse wanted to put pt on CPAP to see if pt can be extubated. Placed pt on CPAP PS 8- 35%FiO2- peep of 5, pt is tolerating well. Dr. Morse decided to extubated pt @1140. Pt is extubated without incidents per Dr. Morse.Placed pt on NC 3L 32%, Pt is calm and tolerating well. No stridor heard, no SOB or resp distress noted. Will continue to monitor pt.
[2019-02-04 12:00] VITALS: BP 110/52
--- NOTE | 2019-02-04 15:30 | NUR ---
PT , PULLEDOUT IV ACCES REFUSED REINSERT FULLY AWAKE/ALERT REFUSED TAKE V/S NOTIFEID LEON BRISCOE/ MICHELLE BRISCOE TRANSFER, 404/
--- NOTE | 2019-02-04 15:30 | Internal Med Progress Note ---
Subjective Physician Name Goldy Amador Attending Physician Goldy Amador MD Current Medications Medications (Trade) Dose Ordered Sig/Almaz Route PRN Reason Start Time Stop Time Status Last Admin Dose Admin Acetaminophen (Tylenol) 650 mg Q4H PRN ORAL T>100.5 02/01/19 13:15 03/02/19 21:14 Al Hydroxide/Mg Hydroxide (Mylanta) 15 ml Q1H PRN ORAL gi upset 02/04/19 08:30 02/04/19 18:00 Atropine Sulfate (Atropine) 0.5 mg Q5M PRN IV bpm less than 45 02/04/19 08:30 02/04/19 18:00 Dextrose (Dextrose 50%) 25 ml Q30M PRN IV Hypoglycemia 02/01/19 13:15 03/02/19 21:14 Dextrose (Dextrose 50%) 50 ml Q30M PRN IV Hypoglycemia 02/01/19 13:15 03/02/19 21:44 Diphenhydramine HCl (Benadryl) 25 mg Q15M PRN IVP Itching 02/04/19 08:30 02/04/19 18:00 Diphenhydramine HCl (Benadryl) 25 mg Q8H PRN ORAL Itching 02/01/19 18:15 03/03/19 18:14 02/01/19 18:38 Fentanyl Citrate (Sublimaze 100 mcg/2 mL) 25 mcg Q10M PRN IV Moderate Pain (Pain Scale 4-6) 02/04/19 08:30 02/04/19 18:00 Folic Acid 1 mg/ Magnesium Sulfate 2000 mg/ Multivitamins 10 ml/Potassium Chloride/Sodium Chloride 1,014.2 ml @ 125 mls/ hr Q24H IV 02/01/19 16:00 03/03/19 15:59 02/03/19 16:39 Furosemide (Lasix) 20 mg EVERY 8 HOURS IV 02/02/19 14:00 03/04/19 13:59 02/04/19 05:23 Hydralazine HCl (Apresoline) 5 mg Q30M PRN IV SBP>160 OR___/DBP>90 OR___ 02/04/19 08:30 02/04/19 18:00 Lactulose (Cephulac) 15 gm Q8HR ORAL 02/02/19 14:00 03/03/19 00:00 02/03/19 14:14 Lorazepam (Ativan 2mg/ml 1ml) 0.5 mg Q4H PRN IV For Anxiety 02/01/19 13:15 02/07/19 21:14 Midazolam HCl (Versed 2mg/2ml vial) 1 mg Q15M PRN IVP For Anxiety 02/04/19 08:30 02/04/19 18:00 Morphine Sulfate (Morphine Sulfate) 2 mg Q4H PRN IVP PAIN 4-10 02/01/19 13:15 02/07/19 21:14 02/03/19 22:33 Ondansetron HCl (Zofran) 4 mg Q1H PRN IVP Nausea & Vomiting 02/04/19 08:30 02/04/19 18:00 Ondansetron HCl (Zofran) 4 mg Q6H PRN IVP Nausea & Vomiting 02/01/19 13:00 03/02/19 12:59 Piperacillin Sod/ Tazobactam Sod 3.375 gm/Sodium Chloride 110 ml @ 27.5 mls/hr EVERY 8 HOURS IVPB 02/01/19 14:00 02/06/19 13:59 02/04/19 05:24 Polyethylene Glycol (Miralax) 17 gm HSPRN PRN ORAL Constipation 02/01/19 21:15 03/02/19 21:14 Triamcinolone Acetonide (Kenalog 0.5% Cr) 1 applic THREE TIMES A DAY TOPIC 02/02/19 14:00 03/04/19 13:59 02/04/19 09:05 Zolpidem Tartrate (Ambien) 5 mg HSPRN PRN ORAL Insomnia 02/01/19 21:15 02/07/19 21:14 Allergies: Coded Allergies: No Known Allergies (Unverified , 01/31/19) Subjective In ICU, post EGD was intubated transferred to ICU, no shortness of breath, successfully extubated. Objective Last Vital Signs Date Time Temp Pulse Resp B/P (MAP) Pulse Ox O2 Delivery O2 Flow Rate FiO2 02/04/19 12:00 97.6 64 20 110/52 (71) 100 02/04/19 11:40 Nasal Cannula 3.0 32 Laboratory Tests Test 02/03/19 20:26 02/04/19 05:50 Potassium Level 3.0 MMOL/L (3.5-5.1) L 3.6 MMOL/L (3.5-5.1) White Blood Count 4.1 K/UL (4.8-10.8) #L Red Blood Count 3.59 M/UL (4.20-5.40) L Hemoglobin 8.9 G/DL (12.0-16.0) L Hematocrit 28.7 % (37.0-47.0) L Mean Corpuscular Volume 80 FL (80-99) Mean Corpuscular Hemoglobin 24.8 PG (27.0-31.0) L Mean Corpuscular Hemoglobin Concent 31.0 G/DL (32.0-36.0) L Red Cell Distribution Width 22.3 % (11.6-14.8) H Platelet Count 62 K/UL (150-450) L Mean Platelet Volume 9.2 FL (6.5-10.1) Neutrophils (%) (Auto) % (45.0-75.0) Lymphocytes (%) (Auto) % (20.0-45.0) Monocytes (%) (Auto) % (1.0-10.0) Eosinophils (%) (Auto) % (0.0-3.0) Basophils (%) (Auto) % (0.0-2.0) Differential Total Cells Counted 100 Neutrophils % (Manual) 78 % (45-75) H Lymphocytes % (Manual) 17 % (20-45) L Monocytes % (Manual) 3 % (1-10) Eosinophils % (Manual) 1 % (0-3) Basophils % (Manual) 1 % (0-2) Band Neutrophils 0 % (0-8) Platelet Estimate Decreased L Platelet Morphology Normal Hypochromasia 2+ Anisocytosis 3+ Sodium Level 140 MMOL/L (136-145) Chloride Level 103 MMOL/L (98-107) Carbon Dioxide Level 26 MMOL/L (21-32) Anion Gap 11 mmol/L (5-15) Blood Urea Nitrogen 5 mg/dL (7-18) L Creatinine 1.0 MG/DL (0.55-1.30) Estimat Glomerular Filtration Rate 57.1 mL/min (>60) Glucose Level 98 MG/DL (74-106) Calcium Level 7.9 MG/DL (8.5-10.1) L Total Bilirubin 2.9 MG/DL (0.2-1.0) H Direct Bilirubin 1.3 MG/DL (0.0-0.3) H Aspartate Amino Transf (AST/SGOT) 79 U/L (15-37) H Alanine Aminotransferase (ALT/SGPT) 34 U/L (12-78) Alkaline Phosphatase 258 U/L (46-116) H Ammonia 68 umol/L (11-32) H Total Protein 6.4 G/DL (6.4-8.2) Albumin 2.5 G/DL (3.4-5.0) L Globulin 3.9 g/dL Albumin/Globulin Ratio 0.6 (1.0-2.7) L Hepatitis A IgM Antibody Pending Hepatitis B Surface Antigen Pending Hepatitis B Core IgM Antibody Pending Hepatitis C Antibody Pending Intake and Output 02/03/19 02/04/19 19:00 07:00 Intake Total 387.5 ml 750 ml Balance 387.5 ml 750 ml Intake Oral 360 ml IV Total 27.5 ml 750 ml # Voids 6 2 # Bowel Movements 5 Objective General: No acute distress, awake and responsive, HEENT: NCAT, sclera anicteric, PERRL, EOMI. Neck: Supple, no significant jugular venous distention, Lungs: Decreased air at the bases, no Wheeze or Rales. Heart: Regular rate and rhythm, normal S1/S2, no murmur. Abdomen: soft, tender to touch, mild distended. Normoactive bowel sounds. / Rectal: Refused and deferred. Extremities: No Cyanosis , no clubbing, trace bilateral lower extremity edema. Neuro: CN II-XII grossly intact, able to move all extremities Skin: warm, no rash. Psych: Normal mood and affect Assessment/Plan Assessment/Plan 1. Abdominal pain. 2. Abdominal distention. 3. Alcohol abuse. 4. Ascites. 5. Diabetes. 6. Hypertension. 7. Anemia most likely secondary to the acute blood loss. 8. GI bleed most likely some 9. Coagulopathy 10. Thrombocytopenia. Plan: Follow-up with GI recommendation EGD (02/04/2019): active bleed from a Dieulafoy lesion Monitor laboratory, DVT prophylaxis with SCD, CODE STATUS is full code. Transfer out of the ICU, back to medical floor Goldy Amador MD Feb 04, 2019 15:30
[2019-02-04 16:00] VITALS: BP 120/60
--- NOTE | 2019-02-04 16:30 | NUR ---
NURSE NOTES: patient transferred from ICU post extubate. no respiratory distress noted. no pain at this time. alert. verbally responsive. insert IV 24gage on RT hand. intact. asymptomatic. Keep NPO. placed bed side comode. bed in the lowest position. call light within reach, alarm on. will continue to monitor and provide plan of care.
--- NOTE | 2019-02-04 17:14 | NUR ---
HAND-OFF: Report given to TANGELA LARSEN.
[2019-02-04] MEDS ORDERED: Morphine Sulfate 2mg/ml Inj(IV/IM USE ONLY) IVP PRN (17:15)
[2019-02-04] MEDS ORDERED: LORazepam Inj 2mg/ml 1ml IV PRN (17:15)
--- NOTE | 2019-02-04 17:47 | Diagnostic Imaging Report ---
Indication: Abdominal pain, increased liver function tests Technique: Aponte-scale and duplex images of the upper abdomen were obtained Comparison: none Findings: There is ascites fluid present. Gallbladder demonstrate gallstones. No wall thickening or pericholecystic fluid Sonographic Dodge's sign is negative. Common bile duct measures 3 mm in diameter. No intrahepatic biliary ductal dilatation. Liver demonstrates increased echogenicity and surface nodularity Portal vein and hepatic veins are patent. Pancreas is incompletely visualized due to overlying bowel gas, visualized portions are unremarkable. The spleen is enlarged, measuring 16 cm long axis dimension Left kidney measures 9.7 cm in length. Right kidney measures 9.6 cm length. Both kidneys demonstrate normal echogenicity. There is no hydronephrosis. No focal abnormality . Abdominal aorta is partially obscured by bowel gas, visualized portions are non-aneurysmal . Impression: Cholelithiasis. Negative for dilated bile ducts Evidence of hepatic cirrhosis. Ascites Note incomplete visualization of the pancreas, incomplete visualization of the abdominal aorta
--- NOTE | 2019-02-04 17:48 | Cardiology Report ---
APPROVED REPORT EKG Measurement Heart [id number] Normal sinus rhythm Left axis deviation Incomplete right bundle branch block Moderate voltage criteria for LVH, may be normal variant Cannot rule out Septal infarct, age undetermined Abnormal ECG
--- NOTE | 2019-02-04 18:30 | Procedure Note ---
DATE OF PROCEDURE: 02/04/2019 SURGEON: Jon Torres M.D. PROCEDURE: Upper endoscopy with hemostasis. ANESTHESIA: Per Dr. Roopa Khanna. INSTRUMENT: Olympus adult flexible upper endoscope. INDICATION: GI bleeding. REASON FOR PROCEDURE: The procedure, risks, benefits, and possible consequences, including hemorrhage, aspiration, perforation and infection, and alternative treatments, were explained to the patient/legal guardian by Dr. Jon Torres and the patient/legal guardian understood and accepted these risks. PROCEDURE IN DETAIL: After informed consent was obtained and the patient was adequately sedated, Olympus upper endoscope was advanced from the mouth into the second portion of duodenum and retroflexion was performed in the stomach. This was a very challenging procedure. The patient had a respiratory distress during the procedure. We had to pull the scope out and intubate the patient, and go back again and again. There was a lot of blood in the stomach especially in the prepyloric region. After extensive washing and cleaning and keep looking finally, we found a Dieulafoy lesion in the prepyloric region most probably the source of bleeding. It was oozing blood. We used a standard hemoclip procedure to put a 1 hemoclip successfully on the Dieulafoy. There was still some oozing blood from it, so we started using epinephrine. We used a needle that injected about 4 mL of 1:10,000 dilution epinephrine around the lesion that stopped the bleeding. At this time, we decided to not pursue any more because the tissue was very friable and we pulled the scope out. SUMMARY OF FINDINGS: A very challenging procedure. The patient needed to be intubated in the middle of the procedure for respiratory protection. Active bleeding from a Dieulafoy lesion in the prepyloric region status post hemostasis using hemoclip and epinephrine injection. RECOMMENDATIONS: The patient to be admitted to ICU and kept NPO. Unfortunately, there is no Protonix intravenous available, so we are going to use Protonix through NG-tube and also Pepcid IV. The patient's PT, PTT, and INR to be closely monitored. We order a unit of fresh frozen plasma for today. We are also going to have the H and H to be checked every 8 hours and transfuse to keep the hemoglobin above 7. We also ordered another unit of platelets for her. This is a critical patient and we will monitor her very closely. I want to thank Dr. Goldy Amador for this kind referral. Jon Torres M.D. DR: EDWIN JOB#: [id number] CC: Goldy Amador M.D.; Fax#: [phone]
[2019-02-04] MEDS ORDERED: Miralax 17gm pkt ORAL PRN (19:00)
--- NOTE | 2019-02-04 19:21 | NUR ---
NURSE NOTES: Received patient awake in bed, no s/s of acute distress, c/o of hunger but is currently on NPO per MD order patient verbalizes understanding. IV access asymptomatic, dressing reinforced, flushed with saline, on saline lock, alcohol cap present. Fall and safety precautions taken.
--- NOTE | 2019-02-04 19:22 | NUR ---
HAND-OFF: Report given to CHAVA Don.
--- NOTE | 2019-02-04 19:41 | NUR ---
NURSE NOTES: Received patient asleep in bed, no s/s of acute distress, pt yelling in pain when turned, IV access asymptomatic, running IVF at 100ml/hr. AM nurse endorsed to take picture of skin tear, will carry out. Bilateral soft wrist restraints noted, peripheral pulses noted. Fall and safety precautions taken. Addendum: 02/05/19 at 0002 by Javier Pichardo RN wrong patient, disregard note
--- NOTE | 2019-02-04 19:55 | NUR ---
NURSE NOTES: Received patient awake in bed, no s/s of acute distress, no c/o pain at this time. IV access asymptomatic, flushed with normal saline. Reminded patient not to pull out IV, reinforced dressing. NPO status noted. Fall and safety precautions taken.
[2019-02-04 20:00] VITALS: BP 126/74
[2019-02-04] MEDS ORDERED: Zolpidem 5mg tab ORAL PRN (21:15)
--- NOTE | 2019-02-04 22:12 | Immediate Post-Op Evaluation ---
Immediate Post-Op Evalulation Immediate Post-Op Evalulation Procedure: egd w/ endoclipping Date of Evaluation: Feb 04, 2019 Time of Evaluation: 12:02 IV Fluids: 1000ml 0.9ns Blood Products: none Estimated Blood Loss: negligible Blood Pressure Systolic: 103 Blood Pressure Diastolic: 49 Pulse Rate: 87 Respiratory Rate: 18 O2 Sat by Pulse Oximetry: 98 Temperature (Fahrenheit): 98.6 Pain Score (1-10): 0 Nausea: No Vomiting: No Complications bronchospasms. patient was intubated and transferred to the icu. patient extubated in the icu Patient Status: awake, reacts, patent, ventilated Hydration Status: adequate Drug: Roopa Barrera MD Feb 04, 2019 22:12
--- NOTE | 2019-02-04 22:14 | 48 Hour Post Anesthesia Eval ---
Post Anesthesia Evaluation Procedure: egd w/ endoclipping Date of Evaluation: Feb 04, 2019 Time of Evaluation: 12:04 Blood Pressure Systolic: 110 0: 52 Pulse Rate: 64 Respiratory Rate: 18 Temperature (Fahrenheit): 98.6 O2 Sat by Pulse Oximetry: 98 Airway: patent Nausea: No Vomiting: No Pain Intensity: 0 Hydration Status: adequate Cardiopulmonary Status: stable Mental Status/LOC: patient returned to baseline Post-Anesthesia Complications: none Follow-up care needed: N/A Roopa Morse MD Feb 04, 2019 22:14
--- NOTE | 2019-02-04 23:58 | NUR ---
HAND-OFF: Report given to CHAVA Lees.
[2019-02-05] VITALS: BP 128/77
--- NOTE | 2019-02-05 00:02 | NUR ---
NURSE NOTES: Received patient awake in bed, resting, no s/s of acute distress, IV access asymptomatic, flushed with saline, on saline lock. Fall and safety precautions taken. Bed locked in lowest position, side rails x2.
--- NOTE | 2019-02-05 01:22 | NUR ---
NURSE NOTES: I noticed that the patient had urine that was "mud-like". It appears brown with reddish tints. I left a voicemail for Dr Amador and will await his response. Pt stated that she has had this urine type/consistency for the past 4 days.
[2019-02-05 04:00] VITALS: BP 111/67
[2019-02-05] MEDS: Piperacillin/Tazobactam 3.375 GM in NS 110 ML IVPB SCH ×3 (05:35→21:20)
[2019-02-05] MEDS: Lactulose 20gm/30ml UDC ORAL SCH ×3 (05:35→21:21)
--- NOTE | 2019-02-05 06:00 | NUR ---
NURSE NOTES: Pt had a couple more BM's- she thought that the urine was dark and thick but it was actually the stool which has dark red blood in it. made aware. Dr Khan covering and was informed this am. No new orders given.
--- NOTE | 2019-02-05 06:36 | Pulmonology Progress Note ---
Assessment/Plan Problems: (1) Acute metabolic encephalopathy (2) Ascites (3) Anasarca (4) Alcohol intoxication (5) Coagulopathy (6) Thrombocytopenia (7) Anemia (8) Liver cirrhosis (9) Abdominal pain Assessment/Plan back on the floor still dark stool 3.6 liter drained from abdomen prbc today start lasix for 2-3 days. vitamin K librium check h/h in am consider comfort care. Subjective ROS Limited/Unobtainable: No Constitutional: Reports: no symptoms HEENT: Repors: no symptoms Respiratory: Reports: no symptoms Allergies: Coded Allergies: No Known Allergies (Unverified , 01/31/19) Objective Last 24 Hour Vital Signs Date Time Temp Pulse Resp B/P (MAP) Pulse Ox O2 Delivery O2 Flow Rate FiO2 02/05/19 04:00 99.0 86 18 111/67 (82) 94 02/05/19 00:00 99.1 83 18 128/77 (94) 95 02/04/19 22:14 64 18 98 02/04/19 22:12 87 18 98 02/04/19 21:22 Room Air Room Air 02/04/19 20:00 98.6 86 19 126/74 (91) 97 02/04/19 16:00 99.3 80 20 120/60 (80) 94 02/04/19 12:00 97.6 64 20 110/52 (71) 100 02/04/19 11:40 Nasal Cannula 3.0 32 02/04/19 11:24 84 25 100 Mechanical Ventilator 100 02/04/19 11:24 84 25 100 02/04/19 09:00 Room Air Intake and Output 02/04/19 02/05/19 19:00 07:00 Intake Total 660 ml Output Total 1 ml Balance 659 ml Intake Oral 360 ml Blood Product 300 ml Output Urine Total 1 ml # Voids 2 2 # Bowel Movements 2 General Appearance: WD/WN HEENT: normocephalic, atraumatic Respiratory/Chest: chest wall non-tender, lungs clear Cardiovascular: normal peripheral pulses, normal rate Abdomen: normal bowel sounds, no organomegaly Genitourinary: normal external genitalia Extremities: no clubbing Current Medications Medications (Trade) Dose Ordered Sig/Almaz Route PRN Reason Start Time Stop Time Status Last Admin Dose Admin Acetaminophen (Tylenol) 650 mg Q4H PRN ORAL T>100.5 6/7/19 17:15 03/02/19 21:14 Dextrose (Dextrose 50%) 25 ml Q30M PRN IV Hypoglycemia 02/04/19 17:15 03/02/19 21:14 Dextrose (Dextrose 50%) 50 ml Q30M PRN IV Hypoglycemia 02/04/19 17:15 03/02/19 21:44 Diphenhydramine HCl (Benadryl) 25 mg Q8H PRN ORAL Itching 02/04/19 18:15 03/03/19 18:14 Folic Acid 1 mg/ Magnesium Sulfate 2000 mg/ Multivitamins 10 ml/Potassium Chloride/Sodium Chloride 1,014.2 ml @ 125 mls/ hr Q24H IV 02/05/19 16:00 03/07/19 15:59 Furosemide (Lasix) 20 mg EVERY 8 HOURS IV 02/04/19 22:00 03/04/19 13:59 02/05/19 05:35 Lactulose (Cephulac) 15 gm Q8HR ORAL 02/04/19 22:00 03/03/19 00:00 02/05/19 05:35 Lorazepam (Ativan 2mg/ml 1ml) 0.5 mg Q4H PRN IV For Anxiety 02/04/19 17:15 02/07/19 21:14 Morphine Sulfate (Morphine Sulfate) 2 mg Q4H PRN IVP PAIN 4-10 02/04/19 17:15 02/07/19 21:14 Ondansetron HCl (Zofran) 4 mg Q6H PRN IVP Nausea & Vomiting 02/04/19 19:00 03/02/19 12:59 Piperacillin Sod/ Tazobactam Sod 3.375 gm/Sodium Chloride 110 ml @ 27.5 mls/hr EVERY 8 HOURS IVPB 02/04/19 22:00 02/09/19 21:59 02/05/19 05:35 Polyethylene Glycol (Miralax) 17 gm HSPRN PRN ORAL Constipation 02/04/19 19:00 03/02/19 18:59 Triamcinolone Acetonide (Kenalog 0.5% Cr) 1 applic THREE TIMES A DAY TOPIC 02/04/19 18:00 03/04/19 13:59 02/04/19 18:04 Zolpidem Tartrate (Ambien) 5 mg HSPRN PRN ORAL Insomnia 02/04/19 21:15 02/07/19 21:14 Shireen Khan MD Feb 05, 2019 06:36
[2019-02-05 07:19] LABS: HEMATOCRIT 20.2 % (37.0-47.0); MEAN CORPUSCULAR VOLUME 81 FL (80-99); PLATELET COUNT 47 K/UL (150-450); RED BLOOD COUNT 2.48 M/UL (4.20-5.40); RED CELL DISTRIBUTION WIDTH 24.6 % (11.6-14.8); WHITE BLOOD COUNT 2.6 K/UL (4.8-10.8)
[2019-02-05 07:23] LABS: HEMOGLOBIN 6.2 G/DL (12.0-16.0)
--- NOTE | 2019-02-05 07:31 | NUR ---
NURSE NOTES: Critical lab of low hgb 6.[address] Amador. will follow up
--- NOTE | 2019-02-05 07:38 | NUR ---
NURSE NOTES: Dr Torres notified of critical lab value. Left voicemail will recheck
[2019-02-05 07:54] LABS: ALANINE AMINOTRANSFERASE 22 U/L (12-78); ALBUMIN 1.9 G/DL (3.4-5.0); ALBUMIN/GLOBULIN RATIO 0.6 (1.0-2.7); ALKALINE PHOSPHATASE 182 U/L (46-116); ANION GAP 8 mmol/L (5-15); ASPARTATE AMINO TRANSFERASE 42 U/L (15-37); BILIRUBIN,TOTAL 2.3 MG/DL (0.2-1.0); BLOOD UREA NITROGEN 9 mg/dL (7-18); CALCIUM 7.8 MG/DL (8.5-10.1); CARBON DIOXIDE 28 MMOL/L (21-32); CHLORIDE 105 MMOL/L (98-107); SODIUM 141 MMOL/L (136-145)
[2019-02-05 07:57] LABS: POTASSIUM 2.6 MMOL/L (3.5-5.1)
[2019-02-05 07:58] LABS: BILIRUBIN,DIRECT 1.4 MG/DL (0.0-0.3)
[2019-02-05 08:00] VITALS: BP 145/74
--- NOTE | 2019-02-05 08:23 | NUR ---
HAND-OFF: Report given to CHAVA Kumari. Critical lab values Hgb 6.2, hct, reported to Brian Amador. Will endorse further to am shift.
--- NOTE | 2019-02-05 08:25 | NUR ---
NURSE NOTES: Received patient from Yoana, patient is awake alert and oriented x4. Denies any pain or discomfort, no cardiac issue. Patient had bloody stool noted on basin on the commode. Patient denies dizziness or nausea or vomiting. Able to transfer from commode to bed with assist. IV intact. Bed alarm is on and bed is in lowest position and locked. RN received report from [facility] that patient's potassium is 2.6. Brian Horvath and Perry was paged for low potassium, WBC of 2.6 and PLT is 4.7. Awaiting for return call.
--- NOTE | 2019-02-05 08:25 | NUR ---
NURSE NOTES: Critical lab of low hgb 6.[address] Amador. will follow up Addendum: 02/05/19 at 0826 by Yoana Blank RN [id number]
--- NOTE | 2019-02-05 08:30 | NUR ---
NURSE NOTES: Called and left a voicemail for Dr Torres again.
--- NOTE | 2019-02-05 08:41 | NUR ---
NURSE NOTES: Called and left a voicemail for Perry for critical lab value. Awaiting new orders.
[2019-02-05] MEDS: Triamcinolone 0.5% Cr 15gm TOPIC SCH ×3 (08:46→17:22)
--- NOTE | 2019-02-05 09:08 | NUR ---
NURSE NOTES: Received order from Dr. Khan to transfer patient to [facility] and give 2 units of PRBC and potassium 40MEQ x2. Order read back and carried out. Patient is alert and awake @ this time. Denies cardiac issue. Will continue to monitor.
--- NOTE | 2019-02-05 09:30 | NUR ---
NURSE NOTES: Dr. Amador aware of patient's condition.
--- NOTE | 2019-02-05 09:55 | NUR ---
NURSE NOTES: Transferred patient to room 236-1 and report given to Khushbu LARSEN. All belongings accounted for . Belonging was checked with Benito. Patient's denture and cell phone with the patient. No george or cards. Rn endorsed to Khushbu that potassium 40MEQ x2 was verified with Dr. Khan and blood transfusion has to be done. Patient had bloody stool x1 prior to transfer, denied chest pain. V/S stable.
--- NOTE | 2019-02-05 10:00 | NUR ---
NURSE NOTES: Received report from Diane Padilla RN. Patient alert and oriented x 4, able to make needs known. On room air, respirations even and unlabored. Right finger 24g and right forearm 22g saline locks patent and asymptomatic. Bed locked in lowest position with side rails up x 2. All needs attended to. Call light within reach. Will continue to monitor.
[2019-02-05] MEDS ORDERED: LORazepam Inj 2mg/ml 1ml IV PRN (10:15)
[2019-02-05] MEDS ORDERED: Potassium Chloride 40 MEQ in Sodium Chloride 550 ML IV SCH (11:00)
[2019-02-05] MEDS: Potassium Chloride 40 MEQ in Sodium Chloride 550 ML IV SCH ×2 (11:26→17:23)
[2019-02-05 12:00] VITALS: BP 118/74
--- NOTE | 2019-02-05 15:19 | NUR ---
HAND-OFF: Report given to Zoltan Chavez RN. 1st PRBC transfusion ongoing.
--- NOTE | 2019-02-05 15:20 | NUR ---
NURSE NOTES: Report received from CHAVA Ríos. Patient seen in bed in semi woodard position. alert, verbally responsive, able to make needs known. Denies any pain at shit time. currently on Room air with no sob. sp02 97%. Blood transfusion is on going. noted with IV site to right FA 22g and right hand 24g. both site is intact.Bed is in lowest position. Call light is within easy reach while in bed. Will continue to monitor.
--- NOTE | 2019-02-05 15:25 | NUR ---
NURSE NOTES: Blood transfusion is now completed. VS 98.8, 81, 128/71 No adverse side effect noted.
--- NOTE | 2019-02-05 15:45 | NUR ---
NURSE NOTES: Second unit of blood transfusion started. VSS. 98.8, 76, 126/74. Will continue to monitor patient closely.
[2019-02-05] MEDS: Folic Acid 1 MG, Magnesium Sulfate 2,000 MG, Multivitamin - 12 Injection 10 ML in NS w/... IV SCH (15:59)
[2019-02-05 16:00] VITALS: BP 130/76
[2019-02-05] MEDS ORDERED: Folic Acid 1 MG, Magnesium Sulfate 2,000 MG, Multivitamin - 12 Injection 10 ML in NS w/... IV SCH (16:00)
--- NOTE | 2019-02-05 16:00 | NUR ---
NURSE NOTES: Continues with blood transfusion. VSS: 98.4, 80, 130/76. no SOB or respiratory distress noted. Will continue to monitor.
[2019-02-05] MEDS ORDERED: Tubing IV Secondary IV ONE ×2 (16:47→17:38)
[2019-02-05] MEDS ORDERED: Tubing Blood Filter IV ONE (16:47)
--- NOTE | 2019-02-05 16:54 | NUR ---
NURSE NOTES: Received call from Dr Elaine to transfuse 1 unit of platelet. order noted and carried out
--- NOTE | 2019-02-05 16:59 | General Progress Note ---
Assessment/Plan Status: unchanged Assessment/Plan: Assessment - UGIB due to duelafoy - Cirrhosis - thrombocytopenia - h/o EtOH - Anemia, needing more transfusion - Resp failure, now off ventilator - severe hypokalemia - Guarded Recommendations - q 12 protonix - Transfuse platelets - check post RBC CBC - NPO - IVF - replace K - may need repeat EGD if continues to drop H&H Subjective Allergies: Coded Allergies: No Known Allergies (Unverified , 01/31/19) Subjective Above noted d/w Dr Torres and senior staff psychologist pt c/o RUQ abd pain two dark BM today to get KCL IV for low K s/p EGD with endoclip and epi patient NPO Objective Last 24 Hour Vital Signs Date Time Temp Pulse Resp B/P (MAP) Pulse Ox O2 Delivery O2 Flow Rate FiO2 02/05/19 16:00 98.4 80 18 130/76 (94) 97 02/05/19 16:00 Room Air 02/05/19 15:25 84 02/05/19 12:00 Room Air 02/05/19 12:00 97.9 89 20 118/74 (89) 98 02/05/19 12:00 85 02/05/19 09:44 86 02/05/19 09:00 Room Air Room Air 02/05/19 08:00 97.7 83 17 145/74 (97) 94 02/05/19 07:07 Room Air Room Air 02/05/19 04:00 99.0 86 18 111/67 (82) 94 02/05/19 00:00 99.1 83 18 128/77 (94) 95 02/04/19 22:14 64 18 98 02/04/19 22:12 87 18 98 02/04/19 21:22 Room Air Room Air 02/04/19 20:00 98.6 86 19 126/74 (91) 97 Intake and Output 02/04/19 02/05/19 19:00 07:00 Intake Total 660 ml Output Total 1 ml Balance 659 ml Intake Oral 360 ml Blood Product 300 ml Output Urine Total 1 ml # Voids 2 2 # Bowel Movements 2 Laboratory Tests 02/05/19 05:30: White Blood Count 2.6L, Red Blood Count 2.48L, Hemoglobin 6.2#*L, Plasma Hemoglobin [Pending], Hematocrit 20.2L, Mean Corpuscular Volume 81, Mean Corpuscular Hemoglobin 25.0L, Mean Corpuscular Hemoglobin Concent 30.8L, Red Cell Distribution Width 24.6H, Platelet Count 47L, Mean Platelet Volume 12.0H, Neutrophils (%) (Auto) , Lymphocytes (%) (Auto) , Monocytes (%) (Auto) , Eosinophils (%) (Auto) , Basophils (%) (Auto) , Differential Total Cells Counted 100, Neutrophils % (Manual) 74, Lymphocytes % (Manual) 19L, Monocytes % (Manual) 5, Eosinophils % (Manual) 2, Basophils % (Manual) 0, Band Neutrophils 0 , Nucleated Red Blood Cells 1, Platelet Estimate DecreasedL, Platelet Morphology Normal, Polychromasia 2+, Hypochromasia 2+, Anisocytosis 3+, Sodium Level 141, Potassium Level 2.6*L, Chloride Level 105, Carbon Dioxide Level 28, Anion Gap 8, Blood Urea Nitrogen 9, Creatinine 1.0, Estimat Glomerular Filtration Rate 57.1, Glucose Level 72L, Calcium Level 7.8L, Total Bilirubin 2.3H, Direct Bilirubin 1.4H, Aspartate Amino Transf (AST/SGOT) 42H, Alanine Aminotransferase (ALT/SGPT) 22, Alkaline Phosphatase 182H, Total Protein 5.1L, Albumin 1.9L, Globulin 3.2, Albumin/Globulin Ratio 0.6L Height (Feet): 5 Height (Inches): 5.00 Weight (Pounds): 198 Objective Obese woman NCAT supple CTA RRR abd soft, (+) RUQ TTP no edema Mikhail Elaine MD Feb 05, 2019 16:59
[2019-02-05] MEDS ORDERED: Phytonadione 10 mg/mL 1ml amp SUBQ SCH (17:00)
[2019-02-05] MEDS ORDERED: Tubing IV Blood Pump IV ONE (17:38)
--- NOTE | 2019-02-05 17:50 | NUR ---
NURSE NOTES: Blood transfusion completed. VSS 98.6, 79, 128/75. no SOB no adverse side effect present at this time. will continue to monitor.
--- NOTE | 2019-02-05 18:46 | NUR ---
NURSE NOTES: Received call from Azucena from blood bank. the platelet is not yet ready at this time and that blood bank will call us when platelet is ready. approx. around midnight
[2019-02-05] MEDS ORDERED: Miralax 17gm pkt ORAL PRN (19:00)
--- NOTE | 2019-02-05 19:19 | Internal Med Progress Note ---
Subjective Date of Service: Feb 05, 2019 Physician Name Jose Benjamin Attending Physician Goldy Amador MD Current Medications Medications (Trade) Dose Ordered Sig/Almaz Route PRN Reason Start Time Stop Time Status Last Admin Dose Admin Acetaminophen (Tylenol) 650 mg Q4H PRN ORAL T>100.5 02/05/19 10:30 03/02/19 10:29 Dextrose (Dextrose 50%) 25 ml Q30M PRN IV Hypoglycemia 02/05/19 10:15 03/02/19 21:14 Dextrose (Dextrose 50%) 50 ml Q30M PRN IV Hypoglycemia 02/05/19 10:15 03/02/19 21:44 Diphenhydramine HCl (Benadryl) 25 mg Q8H PRN ORAL Itching 02/05/19 10:15 03/03/19 18:14 Folic Acid 1 mg/ Magnesium Sulfate 2000 mg/ Multivitamins 10 ml/Potassium Chloride/Sodium Chloride 1,014.2 ml @ 125 mls/ hr Q24H IV 02/05/19 16:00 03/07/19 15:59 02/05/19 15:59 Furosemide (Lasix) 20 mg EVERY 8 HOURS IV 02/05/19 14:00 03/04/19 13:59 02/05/19 15:12 Lactulose (Cephulac) 15 gm Q8HR ORAL 02/05/19 14:00 03/03/19 00:00 02/05/19 15:11 Lorazepam (Ativan 2mg/ml 1ml) 0.5 mg Q4H PRN IV For Anxiety 02/05/19 10:15 02/07/19 10:14 Morphine Sulfate (Morphine Sulfate) 2 mg Q4H PRN IVP PAIN 4-10 02/05/19 10:15 02/07/19 10:14 Ondansetron HCl (Zofran) 4 mg Q6H PRN IVP Nausea & Vomiting 02/05/19 10:15 03/02/19 10:14 Piperacillin Sod/ Tazobactam Sod 3.375 gm/Sodium Chloride 110 ml @ 27.5 mls/hr EVERY 8 HOURS IVPB 02/05/19 14:00 02/10/19 13:59 02/05/19 15:13 Polyethylene Glycol (Miralax) 17 gm HSPRN PRN ORAL Constipation 02/05/19 19:00 03/02/19 18:59 Potassium Chloride 40 meq/ Sodium Chloride 570 ml @ 100 mls/hr Q5H42M IV 02/05/19 11:00 02/05/19 22:23 02/05/19 17:23 Triamcinolone Acetonide (Kenalog 0.5% Cr) 1 applic THREE TIMES A DAY TOPIC 02/05/19 13:00 03/04/19 13:59 02/05/19 17:22 Zolpidem Tartrate (Ambien) 5 mg HSPRN PRN ORAL Insomnia 02/05/19 21:00 02/07/19 20:59 Allergies: Coded Allergies: No Known Allergies (Unverified , 01/31/19) Subjective 58 YO F admitted with abdominal pain and distention. Now ascites and upper GI bleed. Cover for Int Med-Dr Amador. S/P paracentesis 02/01/19. S/P endoscopy 02/04. [facility] Objective Last Vital Signs Date Time Temp Pulse Resp B/P (MAP) Pulse Ox O2 Delivery O2 Flow Rate FiO2 02/05/19 16:00 98.4 80 18 130/76 (94) 97 02/05/19 16:00 Room Air 02/04/19 11:40 3.0 32 Laboratory Tests Test 02/05/19 05:30 White Blood Count 2.6 K/UL (4.8-10.8) L Red Blood Count 2.48 M/UL (4.20-5.40) L Hemoglobin 6.2 G/DL (12.0-16.0) Plasma Hemoglobin Pending Hematocrit 20.2 % (37.0-47.0) L Mean Corpuscular Volume 81 FL (80-99) Mean Corpuscular Hemoglobin 25.0 PG (27.0-31.0) L Mean Corpuscular Hemoglobin Concent 30.8 G/DL (32.0-36.0) L Red Cell Distribution Width 24.6 % (11.6-14.8) H Platelet Count 47 K/UL (150-450) L Mean Platelet Volume 12.0 FL (6.5-10.1) H Neutrophils (%) (Auto) % (45.0-75.0) Lymphocytes (%) (Auto) % (20.0-45.0) Monocytes (%) (Auto) % (1.0-10.0) Eosinophils (%) (Auto) % (0.0-3.0) Basophils (%) (Auto) % (0.0-2.0) Differential Total Cells Counted 100 Neutrophils % (Manual) 74 % (45-75) Lymphocytes % (Manual) 19 % (20-45) L Monocytes % (Manual) 5 % (1-10) Eosinophils % (Manual) 2 % (0-3) Basophils % (Manual) 0 % (0-2) Band Neutrophils 0 % (0-8) Nucleated Red Blood Cells 1 /100 WBC Platelet Estimate Decreased L Platelet Morphology Normal Polychromasia 2+ Hypochromasia 2+ Anisocytosis 3+ Sodium Level 141 MMOL/L (136-145) Potassium Level 2.6 MMOL/L (3.5-5.1) *L Chloride Level 105 MMOL/L (98-107) Carbon Dioxide Level 28 MMOL/L (21-32) Anion Gap 8 mmol/L (5-15) Blood Urea Nitrogen 9 mg/dL (7-18) Creatinine 1.0 MG/DL (0.55-1.30) Estimat Glomerular Filtration Rate 57.1 mL/min (>60) Glucose Level 72 MG/DL (74-106) L Calcium Level 7.8 MG/DL (8.5-10.1) L Total Bilirubin 2.3 MG/DL (0.2-1.0) H Direct Bilirubin 1.4 MG/DL (0.0-0.3) H Aspartate Amino Transf (AST/SGOT) 42 U/L (15-37) H Alanine Aminotransferase (ALT/SGPT) 22 U/L (12-78) Alkaline Phosphatase 182 U/L (46-116) H Total Protein 5.1 G/DL (6.4-8.2) L Albumin 1.9 G/DL (3.4-5.0) L Globulin 3.2 g/dL Albumin/Globulin Ratio 0.6 (1.0-2.7) L Intake and Output 02/04/19 02/05/19 19:00 07:00 Intake Total 660 ml Output Total 1 ml Balance 659 ml Intake Oral 360 ml Blood Product 300 ml Output Urine Total 1 ml # Voids 2 2 # Bowel Movements 2 Objective PHYSICAL EXAMINATION: VITAL SIGNS: Temperature 97.9, respirations 18, pulse 90, blood pressure 132/80. GENERAL: The patient is a well-developed, well-nourished, slightly obese female, in no apparent distress. HEENT: Eyes, pupils equal and responsive to light and accommodation. Extraocular movements are intact. NECK: Supple without lymphadenopathy. CHEST: Lungs are clear to auscultation bilaterally without wheezes or rales. CARDIOVASCULAR: Regular rate. S1, S2 normal without murmurs, rubs, or gallops. ABDOMEN: Soft, distended with decreased bowel sounds. No evidence of hepatosplenomegaly. Currently, no rebound or guarding noted. EXTREMITIES: Negative for clubbing, cyanosis, or edema. RECTAL: Not performed. GENITAL: Not performed. NEUROLOGICAL: Cranial nerves II through XII are grossly intact without focal deficits. Assessment/Plan Assessment/Plan ASSESSMENT: This is a 58-year-old female with: 1. Abdominal pain. 2. Abdominal distention. 3. Alcohol abuse. 4. Ascites. 5. Diabetes. 6. Hypertension. 7. Anemia 8. Upper GI hemorrhage TREATMENT: 1. Abdominal pain/distention. S/P paracentesis February 01, 2019. A Gastroenterology consultation has been obtained with Dr. Jon Torres. The patient has been started on Zosyn for possible spontaneous bacterial peritonitis. 2. Hypertension. Continue losartan as above. 3. Hypercholesterolemia. Continue atorvastatin as above. 4. S/P transfusion3 unit PRBC 5. S/P endoscopy 02/04/19=Dieulafoy lesion cauterized Jose Benjamin MD Feb 05, 2019 19:19
[2019-02-05 19:43] LABS: HEMATOCRIT 26.5 % (37.0-47.0); HEMOGLOBIN 8.6 G/DL (12.0-16.0); MEAN CORPUSCULAR VOLUME 80 FL (80-99); PLATELET COUNT 34 K/UL (150-450); RED BLOOD COUNT 3.31 M/UL (4.20-5.40); RED CELL DISTRIBUTION WIDTH 20.9 % (11.6-14.8); WHITE BLOOD COUNT 3.9 K/UL (4.8-10.8)
[2019-02-05 20:00] VITALS: BP 128/72
[2019-02-05] MEDS: Morphine Sulfate 2mg/ml Inj(IV/IM USE ONLY) IVP PRN (21:22)
[2019-02-06] VITALS (7 sets, daily range): BP systolic 101–155; BP diastolic 58–84
[2019-02-06] MEDS: Zolpidem 5mg tab ORAL PRN ×2 (00:14→21:03)
--- NOTE | 2019-02-06 00:30 | NUR ---
NURSE NOTES: Platelet transfusion started. VSS 98.2, 75, 122/74. NO SOB noted. will continue to monitor.
--- NOTE | 2019-02-06 00:45 | NUR ---
NURSE NOTES: Continues with blood transfusion with no adverse side effect noted. VSS 98.0, 77, 130/74. no SOB . Will continue to monitor.
--- NOTE | 2019-02-06 01:50 | NUR ---
NURSE NOTES: Platelet transfusion completed. VSS , 98.3, 79, 128/76. no SOB. Will continue to monitor.
[2019-02-06] MEDS: Piperacillin/Tazobactam 3.375 GM in NS 110 ML IVPB SCH ×3 (05:30→21:03)
[2019-02-06] MEDS: Lactulose 20gm/30ml UDC ORAL SCH ×3 (05:30→21:03)
[2019-02-06 06:09] LABS: HEMATOCRIT 24.9 % (37.0-47.0); HEMOGLOBIN 8.1 G/DL (12.0-16.0); MEAN CORPUSCULAR VOLUME 83 FL (80-99); PLATELET COUNT 49 K/UL (150-450); RED BLOOD COUNT 3.01 M/UL (4.20-5.40); RED CELL DISTRIBUTION WIDTH 21.6 % (11.6-14.8); WHITE BLOOD COUNT 3.3 K/UL (4.8-10.8)
[2019-02-06 06:18] LABS: INR 1.3 (0.9-1.1)
[2019-02-06 06:42] LABS: ALANINE AMINOTRANSFERASE 20 U/L (12-78); ALBUMIN/GLOBULIN RATIO 0.6 (1.0-2.7); ALKALINE PHOSPHATASE 166 U/L (46-116); ANION GAP 8 mmol/L (5-15); ASPARTATE AMINO TRANSFERASE 39 U/L (15-37); BILIRUBIN,TOTAL 2.7 MG/DL (0.2-1.0); BLOOD UREA NITROGEN 7 mg/dL (7-18); CALCIUM 7.7 MG/DL (8.5-10.1); CARBON DIOXIDE 27 MMOL/L (21-32); CHLORIDE 106 MMOL/L (98-107); PHOSPHORUS 2.3 MG/DL (2.5-4.9); POTASSIUM 3.1 MMOL/L (3.5-5.1); SODIUM 141 MMOL/L (136-145)
[2019-02-06 06:46] LABS: BILIRUBIN,DIRECT 1.8 MG/DL (0.0-0.3)
--- NOTE | 2019-02-06 07:18 | NUR ---
HAND-OFF: Report given to CHAVA Kaur.
--- NOTE | 2019-02-06 08:15 | NUR ---
NURSE NOTES: Patient placed on liquid diet during shift foreman.
[2019-02-06] MEDS: Magnesium Oxide 400mg tab ORAL SCH ×2 (08:33→17:34)
[2019-02-06] MEDS: Triamcinolone 0.5% Cr 15gm TOPIC SCH ×3 (08:34→17:34)
--- NOTE | 2019-02-06 11:03 | General Progress Note ---
Assessment/Plan Status: unchanged Assessment/Plan: Assessment - UGIB due to duelafoy - Cirrhosis - thrombocytopenia - h/o EtOH - Anemia, needing more transfusion - Resp failure, now off ventilator - severe hypokalemia - Guarded Recommendations - q 12 protonix - Transfuse platelets PRN - Clears for today - IVF - may need repeat EGD if continues to drop H&H Subjective Allergies: Coded Allergies: No Known Allergies (Unverified , 01/31/19) Subjective Above noted Feels better got transfused yesterday now H&H stable s/p EGD with endoclip and epi patient on clears Objective Last 24 Hour Vital Signs Date Time Temp Pulse Resp B/P (MAP) Pulse Ox O2 Delivery O2 Flow Rate FiO2 02/06/19 08:00 85 02/06/19 08:00 Room Air 02/06/19 08:00 97.9 76 26 121/62 (81) 98 02/06/19 06:00 98.4 76 20 117/66 (83) 96 02/06/19 04:00 Room Air 02/06/19 04:00 98.4 76 20 117/66 (83) 96 02/06/19 03:44 77 02/06/19 00:00 98.2 75 18 122/74 (90) 97 02/06/19 00:00 Room Air 02/06/19 00:00 88 02/05/19 20:00 Room Air 02/05/19 20:00 98.6 77 19 128/72 (90) 97 02/05/19 19:31 81 02/05/19 16:00 98.4 80 18 130/76 (94) 97 02/05/19 16:00 Room Air 02/05/19 15:25 84 02/05/19 12:00 Room Air 02/05/19 12:00 97.9 89 20 118/74 (89) 98 02/05/19 12:00 85 Intake and Output 02/05/19 02/06/19 19:00 07:00 Intake Total 1199.167 ml 1804.0 ml Balance 1199.167 ml 1804.0 ml IV Total 699.167 ml 1385.0 ml Blood Product 500 ml 419 ml # Voids 7 # Bowel Movements 5 10 Laboratory Tests 02/05/19 19:15: White Blood Count 3.9L, Red Blood Count 3.31L, Hemoglobin 8.6#L, Hematocrit 26.5 #L, Mean Corpuscular Volume 80, Mean Corpuscular Hemoglobin 26.1L, Mean Corpuscular Hemoglobin Concent 32.5, Red Cell Distribution Width 20.9H, Platelet Count 34L, Mean Platelet Volume 6.2L, Neutrophils (%) (Auto) , Lymphocytes (%) (Auto) , Monocytes (%) (Auto) , Eosinophils (%) (Auto) , Basophils (%) (Auto) , Differential Total Cells Counted 100, Neutrophils % ( Manual) 72, Lymphocytes % (Manual) 17L, Monocytes % (Manual) 8, Eosinophils % ( Manual) 3, Basophils % (Manual) 0, Band Neutrophils 0, Nucleated Red Blood Cells 1, Platelet Estimate DecreasedL, Platelet Morphology Normal, Polychromasia 2+, Anisocytosis 3+, Microcytosis 2+ 02/06/19 05:05: White Blood Count 3.3L, Red Blood Count 3.01L, Hemoglobin 8.1L, Hematocrit 24.9L , Mean Corpuscular Volume 83, Mean Corpuscular Hemoglobin 26.7L, Mean Corpuscular Hemoglobin Concent 32.3, Red Cell Distribution Width 21.6H, Platelet Count 49L, Mean Platelet Volume 9.6, Neutrophils (%) (Auto) , Lymphocytes (%) (Auto) , Monocytes (%) (Auto) , Eosinophils (%) (Auto) , Basophils (%) (Auto) , Differential Total Cells Counted 100, Neutrophils % ( Manual) 72, Lymphocytes % (Manual) 26, Monocytes % (Manual) 2, Eosinophils % ( Manual) 0, Basophils % (Manual) 0, Band Neutrophils 0, Platelet Estimate DecreasedL, Platelet Morphology Normal, Polychromasia 1+, Anisocytosis 2+, Hypochromasia 1+, Prothrombin Time 13.6H, Prothromb Time International Ratio 1.3H, Sodium Level 141, Potassium Level 3.1L, Chloride Level 106, Carbon Dioxide Level 27, Anion Gap 8, Blood Urea Nitrogen 7, Creatinine 1.0, Estimat Glomerular Filtration Rate 57.1, Glucose Level 66L, Calcium Level 7.7L, Phosphorus Level 2.3L, Magnesium Level 1.7L, Total Bilirubin 2.7H, Direct Bilirubin 1.8H, Aspartate Amino Transf (AST/SGOT) 39H, Alanine Aminotransferase (ALT/SGPT) 20, Alkaline Phosphatase 166H, Total Protein 5.1L, Albumin 2.0L, Globulin 3.1, Albumin/Globulin Ratio 0.6L Height (Feet): 5 Height (Inches): 5.00 Weight (Pounds): 198 Objective Obese woman NCAT supple CTA RRR abd soft, (+) RUQ TTP no edema Mikhail Elaine MD Feb 06, 2019 11:02
--- NOTE | 2019-02-06 13:00 | NUR ---
NURSE NOTES: Patient tolerating clear liquid diet, patient is awake and alert to name, time and place, at this time she denies any pain. patient is able to communicate with no distress and abdomen remains distended but soft.
--- NOTE | 2019-02-06 14:30 | NUR ---
NURSE NOTES: Dr. Khan at the bedside with patient, no verbal orders given at this time.
--- NOTE | 2019-02-06 14:33 | Pulmonology Progress Note ---
Assessment/Plan Problems: (1) Acute metabolic encephalopathy (2) Ascites (3) Anasarca (4) Alcohol intoxication (5) Coagulopathy (6) Thrombocytopenia (7) Anemia (8) Liver cirrhosis (9) Abdominal pain Assessment/Plan back on the floor still dark stool 3.6 liter drained from abdomen prbc today vitamin K librium check h/h in am consider comfort care. Subjective ROS Limited/Unobtainable: No HEENT: Repors: no symptoms Respiratory: Reports: no symptoms Allergies: Coded Allergies: No Known Allergies (Unverified , 01/31/19) Objective Last 24 Hour Vital Signs Date Time Temp Pulse Resp B/P (MAP) Pulse Ox O2 Delivery O2 Flow Rate FiO2 02/06/19 12:00 79 02/06/19 12:00 97.9 73 22 101/58 (72) 94 02/06/19 12:00 Room Air 02/06/19 08:00 85 02/06/19 08:00 Room Air 02/06/19 08:00 97.9 76 26 121/62 (81) 98 02/06/19 06:00 98.4 76 20 117/66 (83) 96 02/06/19 04:00 Room Air 02/06/19 04:00 98.4 76 20 117/66 (83) 96 02/06/19 03:44 77 02/06/19 00:00 98.2 75 18 122/74 (90) 97 02/06/19 00:00 Room Air 02/06/19 00:00 88 02/05/19 20:00 Room Air 02/05/19 20:00 98.6 77 19 128/72 (90) 97 02/05/19 19:31 81 02/05/19 16:00 98.4 80 18 130/76 (94) 97 02/05/19 16:00 Room Air 02/05/19 15:25 84 Intake and Output 02/05/19 02/06/19 19:00 07:00 Intake Total 1199.167 ml 1804.0 ml Balance 1199.167 ml 1804.0 ml IV Total 699.167 ml 1385.0 ml Blood Product 500 ml 419 ml # Voids 7 # Bowel Movements 5 10 HEENT: normocephalic Respiratory/Chest: chest wall non-tender, lungs clear Breasts: no masses Cardiovascular: normal peripheral pulses, normal rate Abdomen: normal bowel sounds, soft, non tender, no scars Genitourinary: normal external genitalia Skin: no rash Neurologic/Psychiatric: storage consultant II-XII grossly normal, no motor/sensory deficits Laboratory Tests 02/05/19 19:15: White Blood Count 3.9L, Red Blood Count 3.31L, Hemoglobin 8.6#L, Hematocrit 26.5 #L, Mean Corpuscular Volume 80, Mean Corpuscular Hemoglobin 26.1L, Mean Corpuscular Hemoglobin Concent 32.5, Red Cell Distribution Width 20.9H, Platelet Count 34L, Mean Platelet Volume 6.2L, Neutrophils (%) (Auto) , Lymphocytes (%) (Auto) , Monocytes (%) (Auto) , Eosinophils (%) (Auto) , Basophils (%) (Auto) , Differential Total Cells Counted 100, Neutrophils % ( Manual) 72, Lymphocytes % (Manual) 17L, Monocytes % (Manual) 8, Eosinophils % ( Manual) 3, Basophils % (Manual) 0, Band Neutrophils 0, Nucleated Red Blood Cells 1, Platelet Estimate DecreasedL, Platelet Morphology Normal, Polychromasia 2+, Anisocytosis 3+, Microcytosis 2+ 02/06/19 05:05: White Blood Count 3.3L, Red Blood Count 3.01L, Hemoglobin 8.1L, Hematocrit 24.9L , Mean Corpuscular Volume 83, Mean Corpuscular Hemoglobin 26.7L, Mean Corpuscular Hemoglobin Concent 32.3, Red Cell Distribution Width 21.6H, Platelet Count 49L, Mean Platelet Volume 9.6, Neutrophils (%) (Auto) , Lymphocytes (%) (Auto) , Monocytes (%) (Auto) , Eosinophils (%) (Auto) , Basophils (%) (Auto) , Differential Total Cells Counted 100, Neutrophils % ( Manual) 72, Lymphocytes % (Manual) 26, Monocytes % (Manual) 2, Eosinophils % ( Manual) 0, Basophils % (Manual) 0, Band Neutrophils 0, Platelet Estimate DecreasedL, Platelet Morphology Normal, Polychromasia 1+, Anisocytosis 2+, Hypochromasia 1+, Prothrombin Time 13.6H, Prothromb Time International Ratio 1.3H, Sodium Level 141, Potassium Level 3.1L, Chloride Level 106, Carbon Dioxide Level 27, Anion Gap 8, Blood Urea Nitrogen 7, Creatinine 1.0, Estimat Glomerular Filtration Rate 57.1, Glucose Level 66L, Calcium Level 7.7L, Phosphorus Level 2.3L, Magnesium Level 1.7L, Total Bilirubin 2.7H, Direct Bilirubin 1.8H, Aspartate Amino Transf (AST/SGOT) 39H, Alanine Aminotransferase (ALT/SGPT) 20, Alkaline Phosphatase 166H, Total Protein 5.1L, Albumin 2.0L, Globulin 3.1, Albumin/Globulin Ratio 0.6L Current Medications Medications (Trade) Dose Ordered Sig/Almaz Route PRN Reason Start Time Stop Time Status Last Admin Dose Admin Acetaminophen (Tylenol) 650 mg Q4H PRN ORAL T>100.5 02/05/19 10:30 03/02/19 10:29 Dextrose (Dextrose 50%) 25 ml Q30M PRN IV Hypoglycemia 02/05/19 10:15 03/02/19 21:14 Dextrose (Dextrose 50%) 50 ml Q30M PRN IV Hypoglycemia 02/05/19 10:15 03/02/19 21:44 Diphenhydramine HCl (Benadryl) 25 mg Q8H PRN ORAL Itching 02/05/19 10:15 03/03/19 18:14 Folic Acid 1 mg/ Magnesium Sulfate 2000 mg/ Multivitamins 10 ml/Potassium Chloride/Sodium Chloride 1,014.2 ml @ 125 mls/ hr Q24H IV 02/05/19 16:00 03/07/19 15:59 02/05/19 15:59 Furosemide (Lasix) 20 mg EVERY 8 HOURS IV 02/05/19 14:00 03/04/19 13:59 02/06/19 13:45 Lactulose (Cephulac) 15 gm Q8HR ORAL 02/05/19 14:00 03/03/19 00:00 02/06/19 13:45 Lorazepam (Ativan 2mg/ml 1ml) 0.5 mg Q4H PRN IV For Anxiety 02/05/19 10:15 02/07/19 10:14 Magnesium Oxide (Mag-Ox 400mg) 400 mg BID ORAL 02/06/19 09:00 03/08/19 08:59 02/06/19 08:33 Morphine Sulfate (Morphine Sulfate) 2 mg Q4H PRN IVP PAIN 4-10 02/05/19 10:15 02/07/19 10:14 02/05/19 21:22 Ondansetron HCl (Zofran) 4 mg Q6H PRN IVP Nausea & Vomiting 02/05/19 10:15 03/02/19 10:14 02/05/19 21:22 Piperacillin Sod/ Tazobactam Sod 3.375 gm/Sodium Chloride 110 ml @ 27.5 mls/hr EVERY 8 HOURS IVPB 02/05/19 14:00 02/10/19 13:59 02/06/19 13:44 Polyethylene Glycol (Miralax) 17 gm HSPRN PRN ORAL Constipation 02/05/19 19:00 03/02/19 18:59 Potassium Chloride (K-Dur) 40 meq BID@0900,1700 ORAL 02/06/19 09:00 02/06/19 17:01 02/06/19 08:33 Triamcinolone Acetonide (Kenalog 0.5% Cr) 1 applic THREE TIMES A DAY TOPIC 02/05/19 13:00 03/04/19 13:59 02/06/19 13:46 Zolpidem Tartrate (Ambien) 5 mg HSPRN PRN ORAL Insomnia 02/05/19 21:00 02/07/19 20:59 02/06/19 00:14 Shireen Khan MD Feb 06, 2019 14:33
--- NOTE | 2019-02-06 15:50 | Internal Med Progress Note ---
Subjective Date of Service: Feb 06, 2019 Physician Name Jose Benjamin Attending Physician Goldy Amador MD Current Medications Medications (Trade) Dose Ordered Sig/Almaz Route PRN Reason Start Time Stop Time Status Last Admin Dose Admin Acetaminophen (Tylenol) 650 mg Q4H PRN ORAL T>100.5 02/05/19 10:30 03/02/19 10:29 Dextrose (Dextrose 50%) 25 ml Q30M PRN IV Hypoglycemia 02/05/19 10:15 03/02/19 21:14 Dextrose (Dextrose 50%) 50 ml Q30M PRN IV Hypoglycemia 02/05/19 10:15 03/02/19 21:44 Diphenhydramine HCl (Benadryl) 25 mg Q8H PRN ORAL Itching 02/05/19 10:15 03/03/19 18:14 Folic Acid 1 mg/ Magnesium Sulfate 2000 mg/ Multivitamins 10 ml/Potassium Chloride/Sodium Chloride 1,014.2 ml @ 125 mls/ hr Q24H IV 02/05/19 16:00 03/07/19 15:59 02/05/19 15:59 Furosemide (Lasix) 20 mg EVERY 8 HOURS IV 02/05/19 14:00 03/04/19 13:59 02/06/19 13:45 Lactulose (Cephulac) 15 gm Q8HR ORAL 02/05/19 14:00 03/03/19 00:00 02/06/19 13:45 Lorazepam (Ativan 2mg/ml 1ml) 0.5 mg Q4H PRN IV For Anxiety 02/05/19 10:15 02/07/19 10:14 Magnesium Oxide (Mag-Ox 400mg) 400 mg BID ORAL 02/06/19 09:00 03/08/19 08:59 02/06/19 08:33 Morphine Sulfate (Morphine Sulfate) 2 mg Q4H PRN IVP PAIN 4-10 02/05/19 10:15 02/07/19 10:14 02/05/19 21:22 Ondansetron HCl (Zofran) 4 mg Q6H PRN IVP Nausea & Vomiting 02/05/19 10:15 03/02/19 10:14 02/05/19 21:22 Piperacillin Sod/ Tazobactam Sod 3.375 gm/Sodium Chloride 110 ml @ 27.5 mls/hr EVERY 8 HOURS IVPB 02/05/19 14:00 02/10/19 13:59 02/06/19 13:44 Polyethylene Glycol (Miralax) 17 gm HSPRN PRN ORAL Constipation 02/05/19 19:00 03/02/19 18:59 Potassium Chloride (K-Dur) 40 meq BID@0900,1700 ORAL 02/06/19 09:00 02/06/19 17:01 02/06/19 08:33 Triamcinolone Acetonide (Kenalog 0.5% Cr) 1 applic THREE TIMES A DAY TOPIC 02/05/19 13:00 03/04/19 13:59 02/06/19 13:46 Zolpidem Tartrate (Ambien) 5 mg HSPRN PRN ORAL Insomnia 02/05/19 21:00 02/07/19 20:59 02/06/19 00:14 Allergies: Coded Allergies: No Known Allergies (Unverified , 01/31/19) ROS Limited/Unobtainable: No Constitutional: Reports: no symptoms HEENT: Reports: no symptoms Cardiovascular: Reports: no symptoms Respiratory: Reports: no symptoms Gastrointestinal/Abdominal: Reports: abdomen distended, abdominal pain Genitourinary: Reports: no symptoms Neurologic/Psychiatric: Reports: no symptoms Subjective 58 YO F admitted with abdominal pain and distention. Now ascites and upper GI bleed. Cover for Int Med-Dr Amador. S/P paracentesis 02/01/19. S/P endoscopy 02/04. DMITRI Objective Last Vital Signs Date Time Temp Pulse Resp B/P (MAP) Pulse Ox O2 Delivery O2 Flow Rate FiO2 02/06/19 12:00 79 02/06/19 12:00 97.9 22 101/58 (72) 94 02/06/19 12:00 Room Air 02/04/19 11:40 3.0 32 Laboratory Tests Test 02/05/19 19:15 02/06/19 05:05 White Blood Count 3.9 K/UL (4.8-10.8) L 3.3 K/UL (4.8-10.8) L Red Blood Count 3.31 M/UL (4.20-5.40) L 3.01 M/UL (4.20-5.40) L Hemoglobin 8.6 G/DL (12.0-16.0) #L 8.1 G/DL (12.0-16.0) L Hematocrit 26.5 % (37.0-47.0) #L 24.9 % (37.0-47.0) L Mean Corpuscular Volume 80 FL (80-99) 83 FL (80-99) Mean Corpuscular Hemoglobin 26.1 PG (27.0-31.0) L 26.7 PG (27.0-31.0) L Mean Corpuscular Hemoglobin Concent 32.5 G/DL (32.0-36.0) 32.3 G/DL (32.0-36.0) Red Cell Distribution Width 20.9 % (11.6-14.8) H 21.6 % (11.6-14.8) H Platelet Count 34 K/UL (150-450) L 49 K/UL (150-450) L Mean Platelet Volume 6.2 FL (6.5-10.1) L 9.6 FL (6.5-10.1) Neutrophils (%) (Auto) % (45.0-75.0) % (45.0-75.0) Lymphocytes (%) (Auto) % (20.0-45.0) % (20.0-45.0) Monocytes (%) (Auto) % (1.0-10.0) % (1.0-10.0) Eosinophils (%) (Auto) % (0.0-3.0) % (0.0-3.0) Basophils (%) (Auto) % (0.0-2.0) % (0.0-2.0) Differential Total Cells Counted 100 100 Neutrophils % (Manual) 72 % (45-75) 72 % (45-75) Lymphocytes % (Manual) 17 % (20-45) L 26 % (20-45) Monocytes % (Manual) 8 % (1-10) 2 % (1-10) Eosinophils % (Manual) 3 % (0-3) 0 % (0-3) Basophils % (Manual) 0 % (0-2) 0 % (0-2) Band Neutrophils 0 % (0-8) 0 % (0-8) Nucleated Red Blood Cells 1 /100 WBC Platelet Estimate Decreased L Decreased L Platelet Morphology Normal Normal Polychromasia 2+ 1+ Anisocytosis 3+ 2+ Microcytosis 2+ Hypochromasia 1+ Prothrombin Time 13.6 SEC (9.30-11.50) H Prothromb Time International Ratio 1.3 (0.9-1.1) H Sodium Level 141 MMOL/L (136-145) Potassium Level 3.1 MMOL/L (3.5-5.1) L Chloride Level 106 MMOL/L (98-107) Carbon Dioxide Level 27 MMOL/L (21-32) Anion Gap 8 mmol/L (5-15) Blood Urea Nitrogen 7 mg/dL (7-18) Creatinine 1.0 MG/DL (0.55-1.30) Estimat Glomerular Filtration Rate 57.1 mL/min (>60) Glucose Level 66 MG/DL (74-106) L Calcium Level 7.7 MG/DL (8.5-10.1) L Phosphorus Level 2.3 MG/DL (2.5-4.9) L Magnesium Level 1.7 MG/DL (1.8-2.4) L Total Bilirubin 2.7 MG/DL (0.2-1.0) H Direct Bilirubin 1.8 MG/DL (0.0-0.3) H Aspartate Amino Transf (AST/SGOT) 39 U/L (15-37) H Alanine Aminotransferase (ALT/SGPT) 20 U/L (12-78) Alkaline Phosphatase 166 U/L (46-116) H Total Protein 5.1 G/DL (6.4-8.2) L Albumin 2.0 G/DL (3.4-5.0) L Globulin 3.1 g/dL Albumin/Globulin Ratio 0.6 (1.0-2.7) L Intake and Output 02/05/19 02/06/19 19:00 07:00 Intake Total 1199.167 ml 1804.0 ml Balance 1199.167 ml 1804.0 ml IV Total 699.167 ml 1385.0 ml Blood Product 500 ml 419 ml # Voids 7 # Bowel Movements 5 10 Objective PHYSICAL EXAMINATION: VITAL SIGNS: Temperature 97.9, respirations 18, pulse 90, blood pressure 132/80. GENERAL: The patient is a well-developed, well-nourished, slightly obese female, in no apparent distress. HEENT: Eyes, pupils equal and responsive to light and accommodation. Extraocular movements are intact. NECK: Supple without lymphadenopathy. CHEST: Lungs are clear to auscultation bilaterally without wheezes or rales. CARDIOVASCULAR: Regular rate. S1, S2 normal without murmurs, rubs, or gallops. ABDOMEN: Soft, distended with decreased bowel sounds. No evidence of hepatosplenomegaly. Currently, no rebound or guarding noted. EXTREMITIES: Negative for clubbing, cyanosis, or edema. RECTAL: Not performed. GENITAL: Not performed. NEUROLOGICAL: Cranial nerves II through XII are grossly intact without focal deficits. Assessment/Plan Assessment/Plan ASSESSMENT: This is a 58-year-old female with: 1. Abdominal pain. 2. Abdominal distention. 3. Alcohol abuse. 4. Ascites. 5. Diabetes. 6. Hypertension. 7. Anemia 8. Upper GI hemorrhage TREATMENT: 1. Abdominal pain/distention. S/P paracentesis February 01, 2019. A Gastroenterology consultation has been obtained with Dr. Jon Torres. The patient has been started on Zosyn for possible spontaneous bacterial peritonitis. 2. Hypertension. Continue losartan as above. 3. Hypercholesterolemia. Continue atorvastatin as above. 4. S/P transfusion3 unit PRBC 5. S/P endoscopy 02/04/19=Dieulafoy lesion cauterized Jose Benjamin MD Feb 06, 2019 15:50
[2019-02-06] MEDS: Folic Acid 1 MG, Magnesium Sulfate 2,000 MG, Multivitamin - 12 Injection 10 ML in NS w/... IV SCH (16:29)
--- NOTE | 2019-02-06 16:30 | NUR ---
NURSE NOTES: Dr. Benjamin at the bedside with patient and updated patient of plan for paossible EGD if Hgb drops after 2 units of blood have been administered, patient is to remain in SDU for monitoring.
[2019-02-06] MEDS: Morphine Sulfate 2mg/ml Inj(IV/IM USE ONLY) IVP PRN (16:36)
--- NOTE | 2019-02-06 16:45 | NUR ---
NURSE NOTES: Patient had a moderate bowel movement with soft consistency and brown and color no melena noted at this time.
--- NOTE | 2019-02-06 19:15 | NUR ---
NURSE NOTES: Received report from Vincent RN, pt. in bed awake, A/O x's4- French speaking- able to make needs known, cardiac monitoring on, no signs or symptoms of acute cardiac or respiratory distress noted, pt. appears to be sating well on room air- no distress noted, pt. is ambulatory but aware not to get up without assistance, bed in lowest position and call light within easy reach, bed alarm on and side rails up x's3, left hand 24G SL IV intact and patent, and RFA 22G IV intact and patent running banana bag at 125mls/hr, safety measures continued, will continue with plan of care.
--- NOTE | 2019-02-06 19:31 | NUR ---
HAND-OFF: Report given to Report given to CHAVA Alvarado.
[2019-02-06] MEDS ORDERED: Tubing IV Secondary IV ONE (22:49)
[2019-02-06] MEDS ORDERED: NS 275ml ONE (22:49)
[2019-02-06] MEDS ORDERED: Tubing Blood Filter IV ONE (22:49)
--- NOTE | 2019-02-07 02:44 | NUR ---
NURSE NOTES: noted RFA 22G and left hand 24G IV out at bedside- will insert new IV- pt. remains stable.
[2019-02-07 04:00] VITALS: BP 128/64
[2019-02-07] MEDS: Piperacillin/Tazobactam 3.375 GM in NS 110 ML IVPB SCH ×3 (05:03→21:03)
[2019-02-07] MEDS: Lactulose 20gm/30ml UDC ORAL SCH ×3 (05:03→21:03)
[2019-02-07 06:52] LABS: HEMATOCRIT 25.4 % (37.0-47.0); MEAN CORPUSCULAR VOLUME 84 FL (80-99); PLATELET COUNT 49 K/UL (150-450); RED BLOOD COUNT 3.03 M/UL (4.20-5.40); RED CELL DISTRIBUTION WIDTH 22.2 % (11.6-14.8)
[2019-02-07 06:55] LABS: ANION GAP 10 mmol/L (5-15); BLOOD UREA NITROGEN 8 mg/dL (7-18); CALCIUM 7.5 MG/DL (8.5-10.1); CARBON DIOXIDE 25 MMOL/L (21-32); CHLORIDE 105 MMOL/L (98-107); CREATININE 1.1 MG/DL (0.55-1.30); POTASSIUM 3.1 MMOL/L (3.5-5.1); SODIUM 140 MMOL/L (136-145)
--- NOTE | 2019-02-07 07:07 | NUR ---
HAND-OFF: Report given to Delia LARSEN, pt. remains stable and no signs of distress noted- aware to f/u on labs for HGB.
--- NOTE | 2019-02-07 07:10 | NUR ---
NURSE NOTES: Received report from Christiano LARSEN. Pt. in bed, asleep but arousable. No sign of distress. On R.A. No grimacing noted. New IV line at left FA #24g. in placed patent/intact. Bed in low position, locked. Call light within reach. Will cont. to monitor.
[2019-02-07 08:00] VITALS: BP 142/62
[2019-02-07] MEDS: Triamcinolone 0.5% Cr 15gm TOPIC SCH ×3 (08:27→18:16)
[2019-02-07] MEDS: Magnesium Oxide 400mg tab ORAL SCH ×2 (08:27→18:16)
--- NOTE | 2019-02-07 10:11 | Pulmonology Progress Note ---
Assessment/Plan Problems: (1) Acute metabolic encephalopathy (2) Ascites (3) Anasarca (4) Alcohol intoxication (5) Coagulopathy (6) Thrombocytopenia (7) Anemia (8) Liver cirrhosis (9) Abdominal pain Assessment/Plan H/h stable for 3 days f/u GI recommendations 3.6 liter drained from abdomen prbc today vitamin K librium check h/h in am Subjective ROS Limited/Unobtainable: No Constitutional: Reports: no symptoms HEENT: Repors: no symptoms Respiratory: Reports: no symptoms Allergies: Coded Allergies: No Known Allergies (Unverified , 01/31/19) Objective Last 24 Hour Vital Signs Date Time Temp Pulse Resp B/P (MAP) Pulse Ox O2 Delivery O2 Flow Rate FiO2 02/07/19 08:00 Room Air 02/07/19 08:00 97.3 73 20 142/62 (88) 97 02/07/19 07:33 73 02/07/19 04:00 98.4 79 20 128/64 (85) 100 02/07/19 04:00 68 02/07/19 04:00 Room Air 02/07/19 00:00 Room Air 02/07/19 00:00 75 02/06/19 20:00 98.1 75 22 132/63 (86) 100 02/06/19 20:00 Room Air 02/06/19 20:00 75 02/06/19 16:00 83 02/06/19 16:00 98.5 78 29 155/84 (107) 100 02/06/19 16:00 Room Air 02/06/19 12:00 79 02/06/19 12:00 97.9 73 22 101/58 (72) 94 02/06/19 12:00 Room Air Intake and Output 02/06/19 02/07/19 18:59 06:59 Intake Total 1740 ml 1137.5 ml Output Total 200 ml 675 ml Balance 1540 ml 462.5 ml Intake Oral 1740 ml IV Total 1137.5 ml Output Urine Total 200 ml 675 ml # Voids 2 # Bowel Movements 1 General Appearance: WD/WN HEENT: normocephalic, atraumatic Respiratory/Chest: chest wall non-tender, normal breath sounds Breasts: no masses Cardiovascular: normal rate Abdomen: normal bowel sounds, no organomegaly Genitourinary: normal external genitalia Extremities: no clubbing Skin: no rash Neurologic/Psychiatric: normal mood/affect Laboratory Tests 02/07/19 04:30: White Blood Count 3.0L, Red Blood Count 3.03L, Hemoglobin 8.0L, Hematocrit 25.4L , Mean Corpuscular Volume 84, Mean Corpuscular Hemoglobin 26.5L, Mean Corpuscular Hemoglobin Concent 31.6L, Red Cell Distribution Width 22.2H, Platelet Count 49L, Mean Platelet Volume 10.2H, Neutrophils (%) (Auto) , Lymphocytes (%) (Auto) , Monocytes (%) (Auto) , Eosinophils (%) (Auto) , Basophils (%) (Auto) , Differential Total Cells Counted 100, Neutrophils % ( Manual) 56, Lymphocytes % (Manual) 33, Monocytes % (Manual) 5, Eosinophils % ( Manual) 3, Basophils % (Manual) 0, Band Neutrophils 3, Nucleated Red Blood Cells 2, Platelet Estimate DecreasedL, Platelet Morphology Normal, Polychromasia 2+, Hypochromasia 1+, Anisocytosis 2+, Sodium Level 140, Potassium Level 3.1L, Chloride Level 105, Carbon Dioxide Level 25, Anion Gap 10 , Blood Urea Nitrogen 8, Creatinine 1.1, Estimat Glomerular Filtration Rate 51.2 , Glucose Level 63L, Calcium Level 7.5L Current Medications Medications (Trade) Dose Ordered Sig/Almaz Route PRN Reason Start Time Stop Time Status Last Admin Dose Admin Acetaminophen (Tylenol) 650 mg Q4H PRN ORAL T>100.5 02/05/19 10:30 03/02/19 10:29 Dextrose (Dextrose 50%) 25 ml Q30M PRN IV Hypoglycemia 02/05/19 10:15 03/02/19 21:14 Dextrose (Dextrose 50%) 50 ml Q30M PRN IV Hypoglycemia 02/05/19 10:15 03/02/19 21:44 Diphenhydramine HCl (Benadryl) 25 mg Q8H PRN ORAL Itching 02/05/19 10:15 03/03/19 18:14 Folic Acid 1 mg/ Magnesium Sulfate 2000 mg/ Multivitamins 10 ml/Potassium Chloride/Sodium Chloride 1,014.2 ml @ 125 mls/ hr Q24H IV 02/05/19 16:00 03/07/19 15:59 02/06/19 16:29 Furosemide (Lasix) 20 mg EVERY 8 HOURS IV 02/05/19 14:00 03/04/19 13:59 02/07/19 05:04 Lactulose (Cephulac) 15 gm Q8HR ORAL 02/05/19 14:00 03/03/19 00:00 02/07/19 05:03 Lorazepam (Ativan 2mg/ml 1ml) 0.5 mg Q4H PRN IV For Anxiety 02/05/19 10:15 02/07/19 10:14 Magnesium Oxide (Mag-Ox 400mg) 400 mg BID ORAL 02/06/19 09:00 03/08/19 08:59 02/07/19 08:27 Morphine Sulfate (Morphine Sulfate) 2 mg Q4H PRN IVP PAIN 4-10 02/05/19 10:15 02/07/19 10:14 02/06/19 16:36 Ondansetron HCl (Zofran) 4 mg Q6H PRN IVP Nausea & Vomiting 02/05/19 10:15 03/02/19 10:14 02/05/19 21:22 Piperacillin Sod/ Tazobactam Sod 3.375 gm/Sodium Chloride 110 ml @ 27.5 mls/hr EVERY 8 HOURS IVPB 02/05/19 14:00 02/10/19 13:59 02/07/19 05:03 Polyethylene Glycol (Miralax) 17 gm HSPRN PRN ORAL Constipation 02/05/19 19:00 03/02/19 18:59 Triamcinolone Acetonide (Kenalog 0.5% Cr) 1 applic THREE TIMES A DAY TOPIC 02/05/19 13:00 03/04/19 13:59 02/07/19 08:27 Zolpidem Tartrate (Ambien) 5 mg HSPRN PRN ORAL Insomnia 02/05/19 21:00 02/07/19 20:59 02/06/19 21:03 Shireen Khan MD Feb 07, 2019 10:11
--- NOTE | 2019-02-07 10:53 | NUR ---
RD ASSESSMENT & RECOMMENDATIONS SEE CARE ACTIVITY FOR COMPLETE ASSESSMENT DAILY ESTIMATED NEEDS: Needs based on cirrhosis, ascites/ 57kg 25-30 kcals/kg 1526-1990 total kcals 1-1.5 g protein/kg 57-86 g total protein 20-25 mL/kg 4984-4083 total fluid mLs NUTRITION DIAGNOSIS: Altered nutrition related lab values R/T alcoholic cirrhosis, clinical condition as evidenced by elev T bili (4.3->2.7), elev LFTs, elev NH3 (68), critically low K (2.6->3.1), low phos (2.3), low mag (1,7), serum alcohol of 233, critically low wbc (2.1->3.0). CURRENT DIET:CLD PO DIET RECOMMENDATIONS: ADVANCE DIET PER MD -> LOW NA, SOFT diet ADDITIONAL RECOMMENDATIONS: * Standing wt for accurate CBW * Monitor lytes, replete as needed (low K, phos, and mag) * Pt on CLD/NPO since 02/01 -> MONITOR NEED FOR TPN * ENSURE CLEAR TID while on Clear liquid diet
--- NOTE | 2019-02-07 11:22 | General Progress Note ---
Assessment/Plan Problem List: (1) Anasarca ICD Codes: R60.1 - Generalized edema SNOMED: 181233903, 938834128 (2) Alcohol intoxication ICD Codes: F10.929 - Alcohol use, unspecified with intoxication, unspecified SNOMED: 29207421 Qualifiers: Qualified Codes: F10.929 - Alcohol use, unspecified with intoxication, unspecified (3) Anemia ICD Codes: D64.9 - Anemia, unspecified SNOMED: 669027092 Qualifiers: Qualified Codes: D64.9 - Anemia, unspecified (4) Elevated lactic acid level ICD Codes: R79.89 - Other specified abnormal findings of blood chemistry SNOMED: 2033731 (5) Coagulopathy ICD Codes: D68.9 - Coagulation defect, unspecified SNOMED: 84557603 (6) Thrombocytopenia ICD Codes: D69.6 - Thrombocytopenia, unspecified SNOMED: 506742759 (7) Ascites ICD Codes: R18.8 - Other ascites SNOMED: 524554738 Qualifiers: Qualified Codes: K70.31 - Alcoholic cirrhosis of liver with ascites (8) Abdominal pain ICD Codes: R10.9 - Unspecified abdominal pain SNOMED: 86206266 (9) Liver cirrhosis ICD Codes: K74.60 - Unspecified cirrhosis of liver SNOMED: 34365480 (10) ETOH abuse ICD Codes: F10.10 - Alcohol abuse, uncomplicated SNOMED: 01690891 Status: unchanged Assessment/Plan: - q 12 protonix - Transfuse platelets PRN - advance diet - IVF - may need repeat EGD if continues to drop H&H -diuretics Subjective ROS Limited/Unobtainable: Yes Allergies: Coded Allergies: No Known Allergies (Unverified , 01/31/19) Objective Last 24 Hour Vital Signs Date Time Temp Pulse Resp B/P (MAP) Pulse Ox O2 Delivery O2 Flow Rate FiO2 02/07/19 08:00 Room Air 02/07/19 08:00 97.3 73 20 142/62 (88) 97 02/07/19 07:33 73 02/07/19 04:00 98.4 79 20 128/64 (85) 100 02/07/19 04:00 68 02/07/19 04:00 Room Air 02/07/19 00:00 Room Air 02/07/19 00:00 75 02/06/19 20:00 98.1 75 22 132/63 (86) 100 02/06/19 20:00 Room Air 02/06/19 20:00 75 02/06/19 16:00 83 02/06/19 16:00 98.5 78 29 155/84 (107) 100 02/06/19 16:00 Room Air 02/06/19 12:00 79 02/06/19 12:00 97.9 73 22 101/58 (72) 94 02/06/19 12:00 Room Air Intake and Output 02/06/19 02/07/19 18:59 06:59 Intake Total 1740 ml 1137.5 ml Output Total 200 ml 675 ml Balance 1540 ml 462.5 ml Intake Oral 1740 ml IV Total 1137.5 ml Output Urine Total 200 ml 675 ml # Voids 2 # Bowel Movements 1 Laboratory Tests 02/07/19 04:30: White Blood Count 3.0L, Red Blood Count 3.03L, Hemoglobin 8.0L, Hematocrit 25.4L , Mean Corpuscular Volume 84, Mean Corpuscular Hemoglobin 26.5L, Mean Corpuscular Hemoglobin Concent 31.6L, Red Cell Distribution Width 22.2H, Platelet Count 49L, Mean Platelet Volume 10.2H, Neutrophils (%) (Auto) , Lymphocytes (%) (Auto) , Monocytes (%) (Auto) , Eosinophils (%) (Auto) , Basophils (%) (Auto) , Differential Total Cells Counted 100, Neutrophils % ( Manual) 56, Lymphocytes % (Manual) 33, Monocytes % (Manual) 5, Eosinophils % ( Manual) 3, Basophils % (Manual) 0, Band Neutrophils 3, Nucleated Red Blood Cells 2, Platelet Estimate DecreasedL, Platelet Morphology Normal, Polychromasia 2+, Hypochromasia 1+, Anisocytosis 2+, Sodium Level 140, Potassium Level 3.1L, Chloride Level 105, Carbon Dioxide Level 25, Anion Gap 10 , Blood Urea Nitrogen 8, Creatinine 1.1, Estimat Glomerular Filtration Rate 51.2 , Glucose Level 63L, Calcium Level 7.5L Height (Feet): 5 Height (Inches): 5.00 Weight (Pounds): 198 General Appearance: alert EENT: normal ENT inspection Neck: supple Cardiovascular: normal rate Respiratory/Chest: decreased breath sounds Abdomen: normal bowel sounds, non tender, soft Extremities: non-tender Jon Torres MD Feb 07, 2019 11:22
[2019-02-07 12:00] VITALS: BP 120/64
--- NOTE | 2019-02-07 14:34 | NUR ---
CASE MANAGEMENT: REVIEW 02/07/2019 SI:SPONTANEOUS BACTERIAL PERITONITIS. T 97.3 HR 73 RR 20 B/P 142/62 SATS 97% ON RA WBC 3 HGB 8 HCT 25.4 K 3.1 GLU 63 CA 7.5 IS:ZOSYN IV Q8H LASIX PO QD ALDACTONE PO QD K DUR PO X1 MULTIVITAMINS IV @ 125 mL/HR LACTULOSE PO Q8H SDU
[2019-02-07 16:00] VITALS: BP 140/74
[2019-02-07] MEDS: Folic Acid 1 MG, Magnesium Sulfate 2,000 MG, Multivitamin - 12 Injection 10 ML in NS w/... IV SCH (16:51)
--- NOTE | 2019-02-07 18:57 | NUR ---
NURSE NOTES: Received report from Delia RN, pt. in bed awake, A/O x's4- Maori speaking- able to make needs known, cardiac monitoring on, no signs or symptoms of acute cardiac or respiratory distress noted, pt. appears to be sating well on room air- no distress noted, pt. is ambulatory but aware not to get up without nurses assistance, bed in lowest position and call light within easy reach, bed alarm on and side rails up x's3, LFA 24G SL IV intact and patent running banana bag at 125mls/hr, comfort measures provided and all needs attended to, safety measures continued, will continue with plan of care.
--- NOTE | 2019-02-07 19:03 | NUR ---
HAND-OFF: Report given to Christiano LARSEN. Pt. remain stable.
[2019-02-07 20:00] VITALS: BP 121/64
--- NOTE | 2019-02-07 20:33 | Internal Med Progress Note ---
Subjective Date of Service: Feb 07, 2019 Physician Name BenjaminJose Attending Physician Goldy Amador MD Current Medications Medications (Trade) Dose Ordered Sig/Almaz Route PRN Reason Start Time Stop Time Status Last Admin Dose Admin Acetaminophen (Tylenol) 650 mg Q4H PRN ORAL T>100.5 02/05/19 10:30 03/02/19 10:29 Dextrose (Dextrose 50%) 25 ml Q30M PRN IV Hypoglycemia 02/05/19 10:15 03/02/19 21:14 Dextrose (Dextrose 50%) 50 ml Q30M PRN IV Hypoglycemia 02/05/19 10:15 03/02/19 21:44 Diphenhydramine HCl (Benadryl) 25 mg Q8H PRN ORAL Itching 02/05/19 10:15 03/03/19 18:14 Folic Acid 1 mg/ Magnesium Sulfate 2000 mg/ Multivitamins 10 ml/Potassium Chloride/Sodium Chloride 1,014.2 ml @ 125 mls/ hr Q24H IV 02/05/19 16:00 03/07/19 15:59 02/07/19 16:51 Furosemide (Lasix) 40 mg DAILY ORAL 02/08/19 09:00 03/10/19 08:59 Lactulose (Cephulac) 15 gm Q8HR ORAL 02/05/19 14:00 03/03/19 00:00 02/07/19 14:48 Magnesium Oxide (Mag-Ox 400mg) 400 mg BID ORAL 02/06/19 09:00 03/08/19 08:59 02/07/19 18:16 Ondansetron HCl (Zofran) 4 mg Q6H PRN IVP Nausea & Vomiting 02/05/19 10:15 03/02/19 10:14 02/05/19 21:22 Piperacillin Sod/ Tazobactam Sod 3.375 gm/Sodium Chloride 110 ml @ 27.5 mls/hr EVERY 8 HOURS IVPB 02/05/19 14:00 02/10/19 13:59 02/07/19 13:46 Polyethylene Glycol (Miralax) 17 gm HSPRN PRN ORAL Constipation 02/05/19 19:00 03/02/19 18:59 Spironolactone (Aldactone) 50 mg DAILY ORAL 02/08/19 09:00 03/10/19 08:59 Triamcinolone Acetonide (Kenalog 0.5% Cr) 1 applic THREE TIMES A DAY TOPIC 02/05/19 13:00 03/04/19 13:59 02/07/19 18:16 Zolpidem Tartrate (Ambien) 5 mg HSPRN PRN ORAL Insomnia 02/05/19 21:00 02/07/19 20:59 02/06/19 21:03 Allergies: Coded Allergies: No Known Allergies (Unverified , 01/31/19) ROS Limited/Unobtainable: No Constitutional: Reports: no symptoms HEENT: Reports: no symptoms Cardiovascular: Reports: no symptoms Respiratory: Reports: no symptoms Gastrointestinal/Abdominal: Reports: abdomen distended, abdominal pain Genitourinary: Reports: no symptoms Subjective 58 YO F admitted with abdominal pain and distention. Now ascites and upper GI bleed. Cover for Int Med-Dr Amador. S/P paracentesis 02/01/19. S/P endoscopy 02/04. DMITRI Objective Last Vital Signs Date Time Temp Pulse Resp B/P (MAP) Pulse Ox O2 Delivery O2 Flow Rate FiO2 02/07/19 20:00 98.8 77 20 121/64 (83) 95 02/07/19 16:00 Room Air 02/04/19 11:40 3.0 32 Laboratory Tests Test 02/07/19 04:30 White Blood Count 3.0 K/UL (4.8-10.8) L Red Blood Count 3.03 M/UL (4.20-5.40) L Hemoglobin 8.0 G/DL (12.0-16.0) L Hematocrit 25.4 % (37.0-47.0) L Mean Corpuscular Volume 84 FL (80-99) Mean Corpuscular Hemoglobin 26.5 PG (27.0-31.0) L Mean Corpuscular Hemoglobin Concent 31.6 G/DL (32.0-36.0) L Red Cell Distribution Width 22.2 % (11.6-14.8) H Platelet Count 49 K/UL (150-450) L Mean Platelet Volume 10.2 FL (6.5-10.1) H Neutrophils (%) (Auto) % (45.0-75.0) Lymphocytes (%) (Auto) % (20.0-45.0) Monocytes (%) (Auto) % (1.0-10.0) Eosinophils (%) (Auto) % (0.0-3.0) Basophils (%) (Auto) % (0.0-2.0) Differential Total Cells Counted 100 Neutrophils % (Manual) 56 % (45-75) Lymphocytes % (Manual) 33 % (20-45) Monocytes % (Manual) 5 % (1-10) Eosinophils % (Manual) 3 % (0-3) Basophils % (Manual) 0 % (0-2) Band Neutrophils 3 % (0-8) Nucleated Red Blood Cells 2 /100 WBC Platelet Estimate Decreased L Platelet Morphology Normal Polychromasia 2+ Hypochromasia 1+ Anisocytosis 2+ Sodium Level 140 MMOL/L (136-145) Potassium Level 3.1 MMOL/L (3.5-5.1) L Chloride Level 105 MMOL/L (98-107) Carbon Dioxide Level 25 MMOL/L (21-32) Anion Gap 10 mmol/L (5-15) Blood Urea Nitrogen 8 mg/dL (7-18) Creatinine 1.1 MG/DL (0.55-1.30) Estimat Glomerular Filtration Rate 51.2 mL/min (>60) Glucose Level 63 MG/DL (74-106) L Calcium Level 7.5 MG/DL (8.5-10.1) L Intake and Output 02/06/19 02/07/19 19:00 07:00 Intake Total 1865 ml 1012.5 ml Output Total 200 ml 675 ml Balance 1665 ml 337.5 ml Intake Oral 1740 ml IV Total 125 ml 1012.5 ml Output Urine Total 200 ml 675 ml # Voids 2 # Bowel Movements 1 Objective PHYSICAL EXAMINATION: VITAL SIGNS: Temperature 97.9, respirations 18, pulse 90, blood pressure 132/80. GENERAL: The patient is a well-developed, well-nourished, slightly obese female, in no apparent distress. HEENT: Eyes, pupils equal and responsive to light and accommodation. Extraocular movements are intact. NECK: Supple without lymphadenopathy. CHEST: Lungs are clear to auscultation bilaterally without wheezes or rales. CARDIOVASCULAR: Regular rate. S1, S2 normal without murmurs, rubs, or gallops. ABDOMEN: Soft, distended with decreased bowel sounds. No evidence of hepatosplenomegaly. Currently, no rebound or guarding noted. EXTREMITIES: Negative for clubbing, cyanosis, or edema. RECTAL: Not performed. GENITAL: Not performed. NEUROLOGICAL: Cranial nerves II through XII are grossly intact without focal deficits. Assessment/Plan Assessment/Plan ASSESSMENT: This is a 58-year-old female with: 1. Abdominal pain. 2. Abdominal distention. 3. Alcohol abuse. 4. Ascites. 5. Diabetes. 6. Hypertension. 7. Anemia 8. Upper GI hemorrhage TREATMENT: 1. Abdominal pain/distention. S/P paracentesis February 01, 2019. A Gastroenterology consultation has been obtained with Dr. Jon Torres. The patient has been started on Zosyn for possible spontaneous bacterial peritonitis. 2. Hypertension. Continue losartan as above. 3. Hypercholesterolemia. Continue atorvastatin as above. 4. S/P transfusion3 unit PRBC 5. S/P endoscopy 02/04/19=Dieulafoy lesion cauterized Jose Benjamin MD Feb 07, 2019 20:33
[2019-02-08] VITALS: BP 115/56
[2019-02-08 04:00] VITALS: BP 127/55
[2019-02-08] MEDS: Piperacillin/Tazobactam 3.375 GM in NS 110 ML IVPB SCH (05:13)
[2019-02-08] MEDS: Lactulose 20gm/30ml UDC ORAL SCH (05:14)
[2019-02-08 05:45] LABS: HEMATOCRIT 25.7 % (37.0-47.0); HEMOGLOBIN 8.1 G/DL (12.0-16.0); MEAN CORPUSCULAR VOLUME 83 FL (80-99); PLATELET COUNT 38 K/UL (150-450); RED BLOOD COUNT 3.11 M/UL (4.20-5.40); RED CELL DISTRIBUTION WIDTH 20.6 % (11.6-14.8)
[2019-02-08 05:59] LABS: INR 1.2 (0.9-1.1)
[2019-02-08 06:01] LABS: WHITE BLOOD COUNT 1.2 K/UL (4.8-10.8)
[2019-02-08 06:27] LABS: ALANINE AMINOTRANSFERASE 23 U/L (12-78); ALBUMIN 2.2 G/DL (3.4-5.0); ALBUMIN/GLOBULIN RATIO 0.7 (1.0-2.7); ALKALINE PHOSPHATASE 178 U/L (46-116); ANION GAP 7 mmol/L (5-15); ASPARTATE AMINO TRANSFERASE 52 U/L (15-37); BILIRUBIN,TOTAL 2.3 MG/DL (0.2-1.0); BLOOD UREA NITROGEN 5 mg/dL (7-18); CALCIUM 8.2 MG/DL (8.5-10.1); CARBON DIOXIDE 27 MMOL/L (21-32); CHLORIDE 105 MMOL/L (98-107); CREATININE 0.9 MG/DL (0.55-1.30); PHOSPHORUS 3.1 MG/DL (2.5-4.9); POTASSIUM 3.7 MMOL/L (3.5-5.1); SODIUM 138 MMOL/L (136-145)
[2019-02-08 06:50] LABS: BILIRUBIN,DIRECT 1.2 MG/DL (0.0-0.3)
--- NOTE | 2019-02-08 06:56 | NUR ---
HAND-OFF: Report given to Delia Campa, pt. remains stable and no signs of distress noted.
--- NOTE | 2019-02-08 07:00 | NUR ---
NURSE NOTES: Received update bedside report from Christiano LARSEN. Pt. in bed, awake assisted going to bedside commode. No sign of distress. Denies pain at present. IV at left FA #24g. in placed patent/intact. Bed in low position, locked. Call light within reach. Will cont. to monitor.
[2019-02-08 08:00] VITALS: BP 120/75
[2019-02-08] MEDS: Magnesium Oxide 400mg tab ORAL SCH (08:29)
[2019-02-08] MEDS: Triamcinolone 0.5% Cr 15gm TOPIC SCH (08:32)
[2019-02-08] MEDS ORDERED: Spironolactone 50mg tab ORAL SCH (09:00)
[2019-02-08] MEDS ORDERED: Furosemide 40mg tab ORAL SCH (09:00)
[2019-02-08] MEDS ORDERED: LACTULOSE20 GM/301 ORAL (10:03)
[2019-02-08] MEDS ORDERED: ALDACTONE50 MG ORAL (10:03)
[2019-02-08] MEDS ORDERED: FUROSEMIDE40 MG ORAL (10:03)
--- NOTE | 2019-02-08 10:05 | Pulmonology Progress Note ---
Assessment/Plan Problems: (1) Acute metabolic encephalopathy (2) Ascites (3) Anasarca (4) Alcohol intoxication (5) Coagulopathy (6) Thrombocytopenia (7) Anemia (8) Liver cirrhosis (9) Abdominal pain Assessment/Plan H/h stable for 3 days f/u GI recommendations 3.6 liter drained from abdomen prbc today vitamin K librium check h/h in am dc home Subjective ROS Limited/Unobtainable: No Interval Events: doing better Allergies: Coded Allergies: No Known Allergies (Unverified , 01/31/19) Objective Last 24 Hour Vital Signs Date Time Temp Pulse Resp B/P (MAP) Pulse Ox O2 Delivery O2 Flow Rate FiO2 02/08/19 04:00 Room Air 02/08/19 04:00 98.0 74 20 127/55 (79) 97 02/08/19 04:00 71 02/08/19 00:00 98.4 72 20 115/56 (75) 99 02/08/19 00:00 72 02/08/19 00:00 Room Air 02/07/19 20:00 98.8 77 20 121/64 (83) 95 02/07/19 20:00 75 02/07/19 20:00 Room Air 02/07/19 16:00 97.5 76 20 140/74 (96) 95 02/07/19 16:00 Room Air 02/07/19 15:56 76 02/07/19 12:00 Room Air 02/07/19 12:00 97.2 74 20 120/64 (82) 100 02/07/19 11:58 75 Intake and Output 02/07/19 02/08/19 18:59 06:59 Intake Total 702.5 ml 1137.5 ml Output Total 650 ml Balance 52.5 ml 1137.5 ml Intake Oral 550 ml IV Total 152.5 ml 1137.5 ml Output Urine Total 650 ml # Voids 2 # Bowel Movements 1 1 General Appearance: WD/WN HEENT: normocephalic, atraumatic Respiratory/Chest: chest wall non-tender, lungs clear Breasts: no masses Cardiovascular: normal rate, regularly irregular Abdomen: normal bowel sounds, non distended Genitourinary: normal external genitalia Skin: no rash Laboratory Tests 02/08/19 05:15: White Blood Count 1.2#*L, Red Blood Count 3.11L, Hemoglobin 8.1L, Hematocrit 25.7L, Mean Corpuscular Volume 83, Mean Corpuscular Hemoglobin 26.1L, Mean Corpuscular Hemoglobin Concent 31.6L, Red Cell Distribution Width 20.6H, Platelet Count 38L, Mean Platelet Volume 9.9, Neutrophils (%) (Auto) , Lymphocytes (%) (Auto) , Monocytes (%) (Auto) , Eosinophils (%) (Auto) , Basophils (%) (Auto) , Differential Total Cells Counted 100, Neutrophils % ( Manual) 57, Lymphocytes % (Manual) 30, Monocytes % (Manual) 10, Eosinophils % ( Manual) 2, Basophils % (Manual) 1, Band Neutrophils 0, Platelet Estimate DecreasedL, Platelet Morphology Normal, Hypochromasia 2+, Anisocytosis 2+, Prothrombin Time 13.1H, Prothromb Time International Ratio 1.2H, Activated Partial Thromboplast Time 27, Sodium Level 138, Potassium Level 3.7, Chloride Level 105, Carbon Dioxide Level 27, Anion Gap 7, Blood Urea Nitrogen 5L, Creatinine 0.9, Estimat Glomerular Filtration Rate > 60, Glucose Level 97, Calcium Level 8.2L, Phosphorus Level 3.1, Magnesium Level 2.1, Total Bilirubin 2.3H, Direct Bilirubin 1.2H, Aspartate Amino Transf (AST/SGOT) 52H, Alanine Aminotransferase (ALT/SGPT) 23, Alkaline Phosphatase 178H, Total Protein 5.5L, Albumin 2.2L, Globulin 3.3, Albumin/Globulin Ratio 0.7L Current Medications Medications (Trade) Dose Ordered Sig/Almaz Route PRN Reason Start Time Stop Time Status Last Admin Dose Admin Acetaminophen (Tylenol) 650 mg Q4H PRN ORAL T>100.5 02/05/19 10:30 03/02/19 10:29 Dextrose (Dextrose 50%) 25 ml Q30M PRN IV Hypoglycemia 02/05/19 10:15 03/02/19 21:14 Dextrose (Dextrose 50%) 50 ml Q30M PRN IV Hypoglycemia 02/05/19 10:15 03/02/19 21:44 Diphenhydramine HCl (Benadryl) 25 mg Q8H PRN ORAL Itching 02/05/19 10:15 03/03/19 18:14 Folic Acid 1 mg/ Magnesium Sulfate 2000 mg/ Multivitamins 10 ml/Potassium Chloride/Sodium Chloride 1,014.2 ml @ 125 mls/ hr Q24H IV 02/05/19 16:00 03/07/19 15:59 02/07/19 16:51 Furosemide (Lasix) 40 mg DAILY ORAL 02/08/19 09:00 03/10/19 08:59 02/08/19 08:30 Lactulose (Cephulac) 15 gm Q8HR ORAL 02/05/19 14:00 03/03/19 00:00 02/07/19 21:03 Magnesium Oxide (Mag-Ox 400mg) 400 mg BID ORAL 02/06/19 09:00 03/08/19 08:59 02/08/19 08:29 Ondansetron HCl (Zofran) 4 mg Q6H PRN IVP Nausea & Vomiting 02/05/19 10:15 03/02/19 10:14 02/05/19 21:22 Piperacillin Sod/ Tazobactam Sod 3.375 gm/Sodium Chloride 110 ml @ 27.5 mls/hr EVERY 8 HOURS IVPB 02/05/19 14:00 02/10/19 13:59 02/08/19 05:13 Polyethylene Glycol (Miralax) 17 gm HSPRN PRN ORAL Constipation 02/05/19 19:00 03/02/19 18:59 Spironolactone (Aldactone) 50 mg DAILY ORAL 02/08/19 09:00 03/10/19 08:59 02/08/19 08:30 Triamcinolone Acetonide (Kenalog 0.5% Cr) 1 applic THREE TIMES A DAY TOPIC 02/05/19 13:00 03/04/19 13:59 02/08/19 08:32 Shireen Khan MD Feb 08, 2019 10:05
--- NOTE | 2019-02-08 10:05 | GI Progress Note ---
Assessment/Plan Problems: (1) Liver cirrhosis ICD Codes: K74.60 - Unspecified cirrhosis of liver SNOMED: 94213695 (2) Abdominal pain ICD Codes: R10.9 - Unspecified abdominal pain SNOMED: 76416777 (3) Ascites ICD Codes: R18.8 - Other ascites SNOMED: 094519913 Qualifiers: Qualified Codes: K70.31 - Alcoholic cirrhosis of liver with ascites (4) Thrombocytopenia ICD Codes: D69.6 - Thrombocytopenia, unspecified SNOMED: 219142076 (5) Coagulopathy ICD Codes: D68.9 - Coagulation defect, unspecified SNOMED: 33272209 (6) Anemia ICD Codes: D64.9 - Anemia, unspecified SNOMED: 398545463 Qualifiers: Qualified Codes: D64.9 - Anemia, unspecified (7) Alcohol intoxication ICD Codes: F10.929 - Alcohol use, unspecified with intoxication, unspecified SNOMED: 31558344 Qualifiers: Qualified Codes: F10.929 - Alcohol use, unspecified with intoxication, unspecified (8) Acute metabolic encephalopathy ICD Codes: G93.41 - Metabolic encephalopathy SNOMED: 14194431, 177738087 Status: stable Status Narrative Discussed with Dr. Torres. Assessment/Plan SUMMARY OF FINDINGS: Active bleeding from a Dieulafoy lesion in the prepyloric region status post hemostasis using hemoclip and epinephrine injection. RECOMMENDATIONS: - q 12 protonix - Transfuse platelets PRN - advance diet - IVF - may need repeat EGD if continues to drop H&H -diuretics - dc planning, outpatient follow up The patient was seen and examined at bedside and all new and available data was reviewed in the patients chart. I agree with the above findings, impression and plan. (Patient seen earlier today. Signature stamp does not reflect patient encounter time.). - Jon Torres MD Subjective Subjective Denies any abdominal pain Denies any nausea vomiting Objective Last 24 Hour Vital Signs Date Time Temp Pulse Resp B/P (MAP) Pulse Ox O2 Delivery O2 Flow Rate FiO2 02/08/19 04:00 Room Air 02/08/19 04:00 98.0 74 20 127/55 (79) 97 02/08/19 04:00 71 02/08/19 00:00 98.4 72 20 115/56 (75) 99 02/08/19 00:00 72 02/08/19 00:00 Room Air 02/07/19 20:00 98.8 77 20 121/64 (83) 95 02/07/19 20:00 75 02/07/19 20:00 Room Air 02/07/19 16:00 97.5 76 20 140/74 (96) 95 02/07/19 16:00 Room Air 02/07/19 15:56 76 02/07/19 12:00 Room Air 02/07/19 12:00 97.2 74 20 120/64 (82) 100 02/07/19 11:58 75 Intake and Output 02/07/19 02/08/19 18:59 06:59 Intake Total 702.5 ml 1137.5 ml Output Total 650 ml Balance 52.5 ml 1137.5 ml Intake Oral 550 ml IV Total 152.5 ml 1137.5 ml Output Urine Total 650 ml # Voids 2 # Bowel Movements 1 1 Laboratory Tests Test 02/08/19 05:15 White Blood Count 1.2 K/UL (4.8-10.8) #*L Red Blood Count 3.11 M/UL (4.20-5.40) L Hemoglobin 8.1 G/DL (12.0-16.0) L Hematocrit 25.7 % (37.0-47.0) L Mean Corpuscular Volume 83 FL (80-99) Mean Corpuscular Hemoglobin 26.1 PG (27.0-31.0) L Mean Corpuscular Hemoglobin Concent 31.6 G/DL (32.0-36.0) L Red Cell Distribution Width 20.6 % (11.6-14.8) H Platelet Count 38 K/UL (150-450) L Mean Platelet Volume 9.9 FL (6.5-10.1) Neutrophils (%) (Auto) % (45.0-75.0) Lymphocytes (%) (Auto) % (20.0-45.0) Monocytes (%) (Auto) % (1.0-10.0) Eosinophils (%) (Auto) % (0.0-3.0) Basophils (%) (Auto) % (0.0-2.0) Differential Total Cells Counted 100 Neutrophils % (Manual) 57 % (45-75) Lymphocytes % (Manual) 30 % (20-45) Monocytes % (Manual) 10 % (1-10) Eosinophils % (Manual) 2 % (0-3) Basophils % (Manual) 1 % (0-2) Band Neutrophils 0 % (0-8) Platelet Estimate Decreased L Platelet Morphology Normal Hypochromasia 2+ Anisocytosis 2+ Prothrombin Time 13.1 SEC (9.30-11.50) H Prothromb Time International Ratio 1.2 (0.9-1.1) H Activated Partial Thromboplast Time 27 SEC (23-33) Sodium Level 138 MMOL/L (136-145) Potassium Level 3.7 MMOL/L (3.5-5.1) Chloride Level 105 MMOL/L (98-107) Carbon Dioxide Level 27 MMOL/L (21-32) Anion Gap 7 mmol/L (5-15) Blood Urea Nitrogen 5 mg/dL (7-18) L Creatinine 0.9 MG/DL (0.55-1.30) Estimat Glomerular Filtration Rate > 60 mL/min (>60) Glucose Level 97 MG/DL (74-106) Calcium Level 8.2 MG/DL (8.5-10.1) L Phosphorus Level 3.1 MG/DL (2.5-4.9) Magnesium Level 2.1 MG/DL (1.8-2.4) Total Bilirubin 2.3 MG/DL (0.2-1.0) H Direct Bilirubin 1.2 MG/DL (0.0-0.3) H Aspartate Amino Transf (AST/SGOT) 52 U/L (15-37) H Alanine Aminotransferase (ALT/SGPT) 23 U/L (12-78) Alkaline Phosphatase 178 U/L (46-116) H Total Protein 5.5 G/DL (6.4-8.2) L Albumin 2.2 G/DL (3.4-5.0) L Globulin 3.3 g/dL Albumin/Globulin Ratio 0.7 (1.0-2.7) L Height (Feet): 5 Height (Inches): 5.00 Weight (Pounds): 198 General Appearance: WD/WN, no apparent distress, alert Cardiovascular: normal rate Respiratory/Chest: normal breath sounds, no respiratory distress Abdominal Exam: normal bowel sounds, non tender, soft Extremities: normal range of motion, non-tender LaneIndu beal NP Feb 08, 2019 10:04
--- NOTE | 2019-02-08 11:09 | Diagnostic Imaging Report ---
APPROVED REPORT CPT Code: 06650 Present Symptoms Lower Extremity Pain: Bilateral BILATERAL: Imaging reveals a patent deep venous system bilaterally. There is no evidence of thrombus within the common femoral, superficial femoral, popliteal or tibial segments. The greater saphenous veins are within normal limits. Doppler indicates normal spontaneous flow within these segments.
[2019-02-08] MEDS ORDERED: NS 275ml ONE ×2 (12:56)
[2019-02-08] MEDS ORDERED: Tubing IV Secondary IV ONE ×2 (12:56)
--- NOTE | 2019-02-08 12:58 | NUR ---
Discharge: Patient is being discharged to home with self care from medical care. Awake, alert and oriented x4. After care instructions were given. Patient verbalized understanding of after care instructions upon discharge. All medical devices such as IV,testing projects administrator and ID band were removed. Patient ambulated out with all personal belongings with steady gait. Picked up by Tremayne (friend).
--- NOTE | 2019-02-09 13:02 | Discharge Summary ---
Discharge Summary Discharge Summary _ DATE OF ADMISSION: 01/31/2019 DATE OF DISCHARGE: 02/08/2019 DISCHARGED BY: Dr. Amador REASON FOR ADMISSION: 58 years old female with past medical history of hypertension, diabetes mellitus , liver cirrhosis, history of ETOH abuse, presented to emergency department with abdominal pain and along with orthopnea and leg edema. Pain rated as 10 out of 10, pressure-like and diffused. Patient admitted to mild dysuria. She denied fever or chills. Stools were loose, given colonoscopy preparation she was taking ; however no hematochezia, no melena. Patient was taken bowel preparation for colonoscopy scheduled for the next day. Upon evaluation blood pressure was elevated 160/90. Laboratory work-up revealed no leukocytosis , but showed evidence of anemia with hemoglobin 8.1 hematocrit 26.6. MCV 75. Platelet count 70. INR 1.2. Stable electrolytes and renal parameters. Glucose 118. Lactic acid 6.1 . AST 40 ,ALT 21. Lipase 57 . Alkaline phosphatase 301. Ammonia 66 . Troponin negative . Albumin 2.4 . Urinalysis revealed +1 protein , +1 ketones , positive for nitrate and leukocyte esterase, moderate bacteria and borderline pyuria. Urine toxicology screen was negative. Serum alcohol level 233. EKG revealed sinus rhythm with incomplete right bundle branch block . Chest x-ray revealed cardiomegaly. Equivocal minimal interstitial congestion. Abdominal x-ray demonstrated cholelithiasis , no definite acute process. In the emergency department patient pancultured and received fluid bolus . Analgesia provided , and patient was started on antibiotics due to elevated lactic acid. Patient subsequently was admitted to [facility] for further management. CONSULTANTS: pulmonary Dr. Khan GI specialist Dr. Torres [facility] COURSE: Patient admitted to [facility] and initially started on IV fluids with vitamins/ banana bag. Patient started on empiric antibiotics . Librium was on board as needed for withdrawal syndromes. Ativan was on board for withdrawal seizures. Patient was closely monitored. Patient started on lactulose. Ammonia was monitored. Patient started on diuresis with Lasix and Spironolactone with close monitoring of volumes and cardiorenal parameters. Box Closing Machine Operator and GI specialist closely followed. Venous duplex bilateral lower extremity revealed no evidence of acute DVT. Supplemental oxygen was on board as needed to keep pulse oximetry above 92%. Patient undergone ultrasound-guided paracentesis which yielded 3.6 L ascitic fluid. Ultrasound revealed cholelithiasis and cirrhotic appearing liver. Blood cultures were negative. Ascitic fluid culture was negative. Ascitic fluid analysis was unremarkable . Urine culture revealed Klebsiella pneumonia with colony count only 20-30 K. Echocardiogram demonstrated preserved ejection fraction of 60 to 65% , no evidence of left ventricular hypertrophy. No evidence of wall motion abnormality. Right ventricular systolic pressure of 25. Lipid panel stable. Hepatitis panel was negative. Electrolytes were replaced as needed, including potassium, magnesium and phosphorus. All electrolytes stable prior to discharge LFT and bilirubin were closely monitored. Bilirubin trending down: total bilirubin from 3.0 down to 2.3 and direct bilirubin from 1.6 down to 1.2 Ammonia was remained elevated. Lactulose continued. AST remain elevated. GI prophylaxis provided. Anemia work-up revealed sufficient iron, ferritin only 38 . CEA within normal limits. Hemoglobin and hematocrit were closely monitored with goal to keep hemoglobin above 7. Patient undergone transfusion of 3 units of packed red blood cells while in the hospital. Patient undergone on 02/04 upper endoscopy with hemostasis. Procedure was very challenging. Patient needed to be intubated in the middle of the procedure for respiratory protection. Patient was found to have active bleeding from Dieulafoy lesion in the prepyloric region ,status post hemostasis using Hemoclip and epinephrine injection. Prior to discharge hemoglobin 8.1 hematocrit 25.7. Per GI specialist , patient may need to repeat EGD if continued to drop hemoglobin and hematocrit. Colonoscopy was deferred at this time. Platelet count was closely monitored. Thrombocytopenia was a likely related to liver disease . Platelet count down to 38. Patient will need close monitoring of platelet count as outpatient. Patient with evidence of coagulopathy. Vitamin K was administered. INR 1.2 prior to discharge. After EGD diet was slowly advanced as tolerated. Patient was able to tolerate diet. Symptomatic treatment provided as needed. Patient was counseled on abstinence from alcohol. Patient clinically stabilized and was ready for discharge home. At home continue diuretic and lactulose. FINAL DIAGNOSES: Alcohol intoxication Acute metabolic encephalopathy likely due to alcohol intoxication Anemia due to GI bleeding GI bleeding Status post EGD Active bleeding from the outflow lesion Ascites , status post paracentesis Anasarca Liver cirrhosis Hepatic encephalopathy Thrombocytopenia Coagulopathy ETOH abuse Abdominal pain Lactic acidosis DISCHARGE MEDICATIONS: See Medication Reconciliation list. DISCHARGE INSTRUCTIONS: Patient was discharged home . Follow up with primary care provider in one week. I have been assigned to dictate discharge summary for this account. I was not involved in the patient's management. Coirnna Guzman NP Feb 09, 2019 13:02
== END 2019-02-08 12:57 | disposition home or self-care (01) | DRG 432 ==
LOC: EDBD 18:21 → EMR 19:53 → 3E 19:57 → EDBEDREQ 20:50 → EDBEDREQSVC 21:54 → EDBEDREQ 21:54 → 2W 02-01 08:30 → 4E 02-01 13:37 → ICU 02-04 11:46 → 4E 02-04 16:28 → 2W 02-05 09:10
PROC: 0W9G3ZZ Drainage of Peritoneal Cavity, Percutaneous Approach (ICD-10-PCS; 2019-01-31)
PROC: 30233N1 Transfusion of Nonautologous Red Blood Cells into Peripheral Vein, Percutaneous Approach (ICD-10-PCS; principal; 2019-02-02)
PROC: 0BH17EZ Insertion of Endotracheal Airway into Trachea, Via Natural or Artificial Opening (ICD-10-PCS; 2019-02-04 10:05)
PROC: 0W3P8ZZ Control Bleeding in Gastrointestinal Tract, Via Natural or Artificial Opening Endoscopic (ICD-10-PCS; 2019-02-04 10:05)
PROC: 30233R1 Transfusion of Nonautologous Platelets into Peripheral Vein, Percutaneous Approach (ICD-10-PCS; 2019-02-06)
DX: K70.31 Alcoholic cirrhosis of liver with ascites (principal); K31.82 Dieulafoy lesion (hemorrhagic) of stomach and duodenum; G93.41 Metabolic encephalopathy; D68.4 Acquired coagulation factor deficiency; D62 Acute posthemorrhagic anemia; R06.03 Acute respiratory distress; E11.9 Type 2 diabetes mellitus without complications; I10 Essential (primary) hypertension; F10.229 Alcohol dependence with intoxication, unspecified; K72.90 Hepatic failure, unspecified without coma; R10.9 Unspecified abdominal pain; K80.20 Calculus of gallbladder without cholecystitis without obstruction; D69.6 Thrombocytopenia, unspecified; E78.00 Pure hypercholesterolemia, unspecified; E87.6 Hypokalemia
CPT/HCPCS: 36415; 71045; 74018; 76700; 76942; 80048; 80053; 80061; 80307; 80329; 81003; 82140; 82248; 82378; 82607; 82728; 82746; 82962; 83051; 83540; 83550; 83605; 83615; 83690; 83735; 84100; 84132; 84439; 84443; 84484; 85007; 85025; 85044; 85060; 85610; 85651; 85730; 86705; 86709; 86803; 86850; 86900; 86901; 86920; 87040; 87070; 87086; 87181; 87205; 87340; 88104; 89051; 93005; 93306; 93970; 94002; 94003; 94150; 94664; 96365; 96368; 96372; 96375; 99285; J0171; J2250; J2405; J2765; J8499

== ENCOUNTER 2019-03-11 14:07 | Inpatient (IN) | payer MEDICARE, OTHER ==
[~2019-03-11] VITALS: Ht 152.4 cm; Wt 90.7 kg
[~2019-03-11 14:07] MED LIST: ALDACTONE50 MG ORAL; FUROSEMIDE40 MG ORAL; LACTULOSE20 GM/301 ORAL; LIPITOR80 MG ORAL; LOSARTAN POTAS100 MG ORAL
[2019-03-11 14:10] VITALS: BP 131/114
[2019-03-11] MEDS ORDERED: CHOLESTYRAMINE R5 GM ORAL (14:30)
[2019-03-11] MEDS ORDERED: XIFAXAN550 MG ORAL (14:30)
[2019-03-11] MEDS ORDERED: Morphine Sulfate 2mg/ml Inj(IV/IM USE ONLY) IVP ONE (14:30)
[2019-03-11] MEDS ORDERED: METFORMIN HCL1000 M1 ORAL (14:30)
[2019-03-11] MEDS ORDERED: FUROSEMIDE20 M1 ORAL (14:30)
[2019-03-11] MEDS ORDERED: AMLODIPINE BESYL5 MG ORAL (14:30)
[2019-03-11] MEDS ORDERED: OMEPRAZOLE20 M3 ORAL (14:30)
[2019-03-11] MEDS ORDERED: CALCIUM + D SO1 EACH PO (14:30)
[2019-03-11] MEDS ORDERED: LACTULOSE20 GM/301 ORAL (14:30)
[2019-03-11] MEDS ORDERED: FOLIC ACID1 MG ORAL (14:30)
[2019-03-11] MEDS ORDERED: LANTUS SOL100 UNIT/1 SUBQ (14:30)
[2019-03-11] MEDS ORDERED: FERROUS SULFAT325 MG ORAL (14:30)
--- NOTE | 2019-03-11 14:30 | NUR ---
ED Nurse Note: Patient brought in by friend due to increased abdominal pain swelling over BLE. Patient has hx of liver cirrhosis, alcohol abuse and been hospitalized @ [facility] 2 days ago. Patient able to walk from triage room to #8 with slight discomfort, but steady gait noted. Spider angioma noted over the chest. Patient awake, alert, oriented x 4. Able to follow commands. Placed patient on mangle catcher. No ectopy noted. Bed in lowest position.
--- NOTE | 2019-03-11 14:33 | Emergency Room Report ---
History of Present Illness General Chief Complaint: Edema Source: Patient, Family Member, Medical Record Present Illness HPI The patient presents with increased abdominal pain and swelling. She has a history of ascites. She had paracentesis performed here a month ago. She also claims that she is having fevers. She is on Macrobid for kidney infection. This was started at [facility]. She rates the pain 9/10 and constant with pressure and aching. She denies vomiting or diarrhea. She also complains of edema. The patient has a history of alcohol abuse when she was young. She has cirrhosis secondary to that. The patient was admitted from January 31 to February 08 here. Discharge diagnoses: Alcohol intoxication Acute metabolic encephalopathy likely due to alcohol intoxication Anemia due to GI bleeding GI bleeding Status post EGD Active bleeding from the outflow lesion Ascites , status post paracentesis Anasarca Liver cirrhosis Hepatic encephalopathy Thrombocytopenia Coagulopathy ETOH abuse Abdominal pain Lactic acidosis Allergies: Coded Allergies: No Known Allergies (Unverified , 01/31/19) Patient History Past Medical History: see triage record Social History: Reports: alcohol use - denies at this time, but used in January Social History Narrative From home with daughter Reviewed Nursing Documentation: PMH: Agreed; PSxH: Agreed Nursing Documentation-PMH Past Medical History: No History, Except For Hx Cardiac Problems: Yes Hx Hypertension: Yes Hx Diabetes: Yes Hx Gastrointestinal Problems: Yes - cirrhosis Hx Neurological Problems: No Review of Systems All Other Systems: negative except mentioned in HPI Physical Exam Vital Signs Date Time Temp Pulse Resp B/P (MAP) Pulse Ox O2 Delivery O2 Flow Rate FiO2 03/11/19 14:13 98.2 84 18 143/72 (95) 97 Room Air Sp02 EP Interpretation: reviewed, normal General Appearance: no apparent distress, GCS 15, Chronically Ill Head: normocephalic, atraumatic Eyes: bilateral eye PERRL, bilateral eye conjunctivae pale, bilateral eye scleral icterus ENT: dry mucus membranes Neck: supple Respiratory: lungs clear, normal breath sounds Cardiovascular #1: regular rate, rhythm, edema - 3+ pitting edema legs Cardiovascular #2: 2+ radial (R) Gastrointestinal: normal inspection, no mass, no guarding, no rebound, distended, tenderness, other - Fluid wave, decreased bowel sounds Genitourinary: no CVA tenderness Musculoskeletal: back normal, normal range of motion, other - slow ambulation Neurologic: alert, DTRs symmetric, sensory intact, cerebellar normal, speech normal, other - No asterixis, oriented - X2 Psychiatric: anxious Skin: warm/dry, other - Erythema more left upper thigh Medical Decision Making Diagnostic Impression: Primary Impression: Abdominal pain Qualified Codes: R10.84 - Generalized abdominal pain Additional Impressions: Ascites Qualified Codes: K70.31 - Alcoholic cirrhosis of liver with ascites Liver cirrhosis Qualified Codes: K70.31 - Alcoholic cirrhosis of liver with ascites Elevated lactic acid level Thrombocytopenia Anemia Qualified Codes: D64.9 - Anemia, unspecified ER Course Patient presents with abdominal distention and a history of cirrhosis and ascites on Macrobid for chronic kidney infection. Differential includes spontaneous bacterial peritonitis, ascites exacerbation, liver failure, pyelonephritis, other UTI amongst others. The patient will be evaluated with EKG, chest x-ray and labs. The patient will undergo ultrasound-guided paracentesis. Depending on labs antibiotics may be needed. Also consideration for correction of coagulopathy. EKG without injury. CXR no infiltrate. Low WBC, H/H, platelets. LFTs elevated. Also glucose. INR 1.2. U/S removed 4 liters. Improved after paracentesis, but still with pain. I am not starting antibiotics. Lactic acid improving with hydration. Admit med, Dr. Amador. Laboratory Tests Test 03/11/19 14:55 03/11/19 15:17 03/11/19 16:30 03/11/19 18:09 White Blood Count 2.7 K/UL (4.8-10.8) L Red Blood Count 3.25 M/UL (4.20-5.40) L Hemoglobin 8.2 G/DL (12.0-16.0) L Hematocrit 27.5 % (37.0-47.0) L Mean Corpuscular Volume 85 FL (80-99) Mean Corpuscular Hemoglobin 25.3 PG (27.0-31.0) L Mean Corpuscular Hemoglobin Concent 29.9 G/DL (32.0-36.0) L Red Cell Distribution Width 18.8 % (11.6-14.8) H Platelet Count 77 K/UL (150-450) L Mean Platelet Volume 8.4 FL (6.5-10.1) Neutrophils (%) (Auto) % (45.0-75.0) Lymphocytes (%) (Auto) % (20.0-45.0) Monocytes (%) (Auto) % (1.0-10.0) Eosinophils (%) (Auto) % (0.0-3.0) Basophils (%) (Auto) % (0.0-2.0) Differential Total Cells Counted 100 Neutrophils % (Manual) 79 % (45-75) H Lymphocytes % (Manual) 12 % (20-45) L Monocytes % (Manual) 6 % (1-10) Eosinophils % (Manual) 2 % (0-3) Basophils % (Manual) 1 % (0-2) Band Neutrophils 0 % (0-8) Platelet Estimate Decreased L Platelet Morphology Normal Hypochromasia 2+ Anisocytosis 2+ Erythrocyte Sedimentation Rate Pending Reticulocyte Count Pending Prothrombin Time 12.5 SEC (9.30-11.50) H Prothrombin Time INR 1.2 (0.9-1.1) H PTT 28 SEC (23-33) Sodium Level 138 MMOL/L (136-145) Potassium Level 3.5 MMOL/L (3.5-5.1) Chloride Level 102 MMOL/L (98-107) Carbon Dioxide Level 25 MMOL/L (21-32) Anion Gap 11 mmol/L (5-15) Blood Urea Nitrogen 13 mg/dL (7-18) Creatinine 1.3 MG/DL (0.55-1.30) Estimate Glomerular Filtration Rate 42.2 mL/min (>60) Glucose Level 226 MG/DL (74-106) H Lactic Acid Level 3.50 mmol/L (0.4-2.0) H 2.30 mmol/L (0.66-2.22) H Calcium Level 8.3 MG/DL (8.5-10.1) L Magnesium Level 1.7 MG/DL (1.8-2.4) L Iron Level Pending Unsaturated Iron Binding Pending Total Bilirubin 1.2 MG/DL (0.2-1.0) H Direct Bilirubin 0.7 MG/DL (0.0-0.3) H Aspartate Amino Transferase (AST) 38 U/L (15-37) H Alanine Aminotransferase (ALT) 17 U/L (12-78) Alkaline Phosphatase 233 U/L (46-116) H Ammonia 49 umol/L (11-32) H Lactate Dehydrogenase Pending Troponin I 0.009 ng/mL (0.000-0.056) Total Protein 6.4 G/DL (6.4-8.2) Albumin 1.9 G/DL (3.4-5.0) L Globulin 4.5 g/dL Albumin/Globulin Ratio 0.4 (1.0-2.7) L Lipase 49 U/L (73-393) L Carcinoembryonic Antigen Pending Vitamin B12 Level Pending Folate Pending Urine Color Brown Urine Appearance Clear Urine pH 5 (4.5-8.0) Urine Specific [place] 1.020 (1.005-1.035) Urine Protein Negative (NEGATIVE) Urine Glucose (UA) Negative (NEGATIVE) Urine Ketones 1+ (NEGATIVE) H Urine Blood Negative (NEGATIVE) Urine Nitrite Negative (NEGATIVE) Urine Bilirubin Negative (NEGATIVE) Urine Urobilinogen 4 MG/DL (0.0-1.0) H Urine Leukocyte Esterase 1+ (NEGATIVE) H Urine RBC 0-2 /HPF (0 - 2) Urine WBC 2-4 /HPF (0 - 2) Urine Squamous Epithelial Cells Few /LPF (NONE/OCC) Urine Bacteria Few /HPF (NONE) Body Fluid Source Pending Body Fluid Volume Pending Body Fluid Appearance Pending Body Fluid RBC Pending Body Fluid Total Nucleated Cells Pending Body Fluid Polynuclear WBCs (%) Pending Body Fluid Mononuclear WBCs (%) Pending Body Fluid Mesothelial Cells (%) Pending Body Fluid Glucose Pending Body Fluid Total Protein Pending Body Fluid Albumin Pending EKG Diagnostic Results Rate: normal Rhythm: NSR ST Segments: no acute changes Rhythm Strip Diag. Results EP Interpretation: yes Rhythm: NSR, no PVC's, no ectopy Chest X-Ray Diagnostic Results Chest X-Ray Diagnostic Results : Chest X-Ray Ordered: Yes # of Views/Limited/Complete: 1 View Indication: Other EP Interpretation: Yes Interpretation: no consolidation, no effusion, no pneumothorax Impression: No acute disease Electronically Signed by: Electronically signed by Vincent Recinos MD Last Vital Signs Date Time Temp Pulse Resp B/P (MAP) Pulse Ox O2 Delivery O2 Flow Rate FiO2 03/11/19 18:05 98.8 71 20 133/85 100 Room Air Status: improved Disposition: ADMITTED INPATIENT Condition: Serious Vincent Recinos MD Mar 11, 2019 14:33
--- NOTE | 2019-03-11 15:08 | Diagnostic Imaging Report ---
Indication: Dyspnea Comparison: 01/31/2019 A single view chest radiograph was obtained. Findings: No definite infiltrate or pulmonary vascular congestion identified. The heart is enlarged. The aorta is mildly enlarged consistent with atherosclerotic vascular disease. The bones are osteopenic. Impression: No acute disease
--- NOTE | 2019-03-11 15:19 | NUR ---
ED Nurse Note: Patient taken down for u/s guided paracentesis.
[2019-03-11 15:21] LABS: HEMATOCRIT 27.5 % (37.0-47.0); HEMOGLOBIN 8.2 G/DL (12.0-16.0); MEAN CORPUSCULAR VOLUME 85 FL (80-99); PLATELET COUNT 77 K/UL (150-450); RED BLOOD COUNT 3.25 M/UL (4.20-5.40); RED CELL DISTRIBUTION WIDTH 18.8 % (11.6-14.8); WHITE BLOOD COUNT 2.7 K/UL (4.8-10.8)
[2019-03-11 15:27] LABS: INR 1.2 (0.9-1.1)
[2019-03-11 15:32] LABS: ANION GAP 11 mmol/L (5-15); BLOOD UREA NITROGEN 13 mg/dL (7-18); CALCIUM 8.3 MG/DL (8.5-10.1); CARBON DIOXIDE 25 MMOL/L (21-32); CHLORIDE 102 MMOL/L (98-107); CREATININE 1.3 MG/DL (0.55-1.30); POTASSIUM 3.5 MMOL/L (3.5-5.1); SODIUM 138 MMOL/L (136-145)
[2019-03-11 15:34] LABS: AMMONIA 49 umol/L (11-32)
[2019-03-11 15:42] LABS: ALANINE AMINOTRANSFERASE 17 U/L (12-78); ALBUMIN 1.9 G/DL (3.4-5.0); ALBUMIN/GLOBULIN RATIO 0.4 (1.0-2.7); ALKALINE PHOSPHATASE 233 U/L (46-116); ASPARTATE AMINO TRANSFERASE 38 U/L (15-37); BILIRUBIN,TOTAL 1.2 MG/DL (0.2-1.0)
[2019-03-11 15:45] LABS: APPEARANCE,URINE CLEAR; BILIRUBIN, URINE NEGATIVE (NEGATIVE); COLOR,URINE BROWN; GLUCOSE, URINE (UA) NEGATIVE (NEGATIVE); KETONES,URINE 1+ (NEGATIVE); LEUKOCYTE ESTERASE ,URINE 1+ (NEGATIVE); NITRITE,URINE NEGATIVE (NEGATIVE); PH,URINE 5 (4.5-8.0); PROTEIN,URINE NEGATIVE (NEGATIVE); UROBILINOGEN,URINE 4 MG/DL (0.0-1.0)
[2019-03-11 15:50] LABS: BILIRUBIN,DIRECT 0.7 MG/DL (0.0-0.3)
--- NOTE | 2019-03-11 16:12 | NUR ---
ED Nurse Note: Patient returned from u/s guided paracentesis. 4L fluid aspirated. Dressing over the left abdomen intact without bleeding. + bowel sounds in all four quadrants ausculated. Patient reports improvement with breathing. Family member at bedside. Addendum: 03/11/19 at 1809 by SONG Correction: Dressing is over the right sided abdomen, not left sided.
--- NOTE | 2019-03-11 16:23 | Diagnostic Imaging Report ---
Indications: Ascites Procedure: Informed consent obtained. Ultrasound used to localize optimal puncture site. Sterile prepping and draping over the optimum site. Local anesthesia with 1% lidocaine. Under real-time ultrasound guidance, puncture of the peritoneal space performed using paracentesis needle. Digital image was saved and archived. Stylet removed. Catheter placed to vacuum bottle suction. Fluid was aspirated. Patient tolerated procedure well, without immediate complication. Findings: Followup sonography demonstrates complete resolution of peritoneal fluid Impression: Successful ultrasound-guided paracentesis, yielding 4 liters of fluid
[2019-03-11 16:38] VITALS: BP 141/84
--- NOTE | 2019-03-11 17:25 | NUR ---
ED Nurse Note: Nurse not available to take a report at this time. Spoke to CHAVA Watson.
[2019-03-11] MEDS: Morphine Sulfate 2mg/ml Inj(IV/IM USE ONLY) IVP ONE ×2 (17:37→17:43)
--- NOTE | 2019-03-11 17:42 | NUR ---
ED Nurse Note: Morphine 2mg contaminated and wasted with CHAVA Cline. RN removed Morphine 2mg x 1.
--- NOTE | 2019-03-11 17:58 | History & Physical ---
History and Physical History & Physicial Goldy Amador MD Mar 11, 2019 17:58
[2019-03-11 18:00] VITALS: BP 132/68
--- NOTE | 2019-03-11 18:00 | NUR ---
NURSE NOTES: Patient received from ER via WC to 315-2 on RA, in stable condition. Patient [place] speaking, alert, oriented x4 calm. No distress or pain at this time. RAC heplock intact. Right abdomen bandaid intact, small shadow drainage noted. Moves all extremities, skin warm. All belongings reviewed with SENIOR NET WEB DEVELOPER and patient. VSS. Patient oriented to room and call light for safety. Bed in lowest position, call light in reach, will continue to monitor. Dr. Amador at bedside at this time.
--- NOTE | 2019-03-11 18:00 | NUR ---
ED Nurse Note: Patient being transferred to med-surg unit in wheelchair with all her belongings.
[2019-03-11] MEDS ORDERED: Nitroglycerin Subl 0.4mg tab SL PRN (18:15)
[2019-03-11] MEDS ORDERED: D5 1/2NS 1,000 ML IV SCH (18:30)
[2019-03-11] MEDS ORDERED: Dextrose 50% 25ml Syringe IV PRN (18:30)
--- NOTE | 2019-03-11 19:15 | NUR ---
HAND-OFF: Report given to Franc[place]kau RN.
[2019-03-11 19:16] LABS: LACTATE DEHYDROGENASE 259 U/L (81-234)
[2019-03-11] MEDS ORDERED: Phytonadione 10 MG in D5W 55 ML IVPB ONE (19:30)
--- NOTE | 2019-03-11 19:30 | NUR ---
NURSE NOTES: Received report from CHAVA Lovelace. Patient laying on the bed, alert, awake, and verbally responsive to make her needs known. Patient is breathing unlabored and evenly without signs of distress, discomfort, or SOB. No pain noted at this time. Patient's IV site was noted intact and dry on the RAC, currently saline locked. Patient's bed placed at the lowest with brakes on and side rails up x 2 for bed mobility assistance. Patient's bilateral legs are edematous pitting +2. Bandage post paracentesis on the right lower abdomen noted. Call light placed within reach and reinforced to press whenever assistance is needed. Will continue to monitor and provide care as needed.
[2019-03-11] MEDS: Lactulose 20gm/30ml UDC ORAL SCH ×2 (19:39→21:00)
[2019-03-11 19:56] LABS: % IRON SATURATION 10 % (15-50); IRON 22 ug/dL (50-175); TOTAL IRON BINDING CAPACITY 230 ug/dL (250-450)
[2019-03-11 20:00] VITALS: BP 135/71
[2019-03-11] MEDS: Ciprofloxacin 500mg tab ORAL SCH (20:07)
--- NOTE | 2019-03-11 20:30 | History and Physical Report ---
DATE OF ADMISSION: 03/11/2019 CHIEF COMPLAINT: Abdominal pain and swollen. HISTORY OF PRESENT ILLNESS: This is a 58-year-old female with past medical history significant for hypertension, diabetes type 2, liver cirrhosis, alcohol abuse, who was presented to the emergency room complaining about abdominal pain associated with leg edema. The patient has been having history of ascites in the past and required paracentesis in the past, last one was a month ago. She claimed that she stopped drinking 9 days ago. She had some fever and was started on Macrobid with kidney infection and urine infection was at the [facility]. The patient is complaining about 9/10 intensity pain, constant, pressure pain. No nausea or vomiting. No diarrhea, however, she has been complaining about the abdominal girdle enlargement as well as edema. Shortly after initial evaluation in emergency, the patient was admitted to the hospital with abdominal pain and distention, most likely secondary to the ascites and worsening of liver function. PAST MEDICAL HISTORY/PAST SURGICAL HISTORY: Significant for recent hospitalization at [facility] on 01/31/2019 through 02/08/2019, complaining about pedal edema as well as orthopnea. The patient had extensive workup done at that time including EGD for the GI bleed presented. The patient was found to have active bleeding from the Dieulafoy lesion in the peripyloric region, status post hemostasis with Hemoclip and epinephrine injection. The patient was advised to have follow-up EGD, history of alcohol intoxication with prior history of anemia with GI bleed, ascites, anasarca, liver cirrhosis, hepatic encephalopathy, thrombocytopenia, alcohol abuse, lactic acidosis, diabetes type 2, hypertension, x1. MEDICATIONS AT HOME: Significant for amlodipine, Lipitor, calcium with vitamin D, cholestyramine, iron sulfate, folic acid, Lasix, Lantus insulin, lactulose, losartan, metformin, omeprazole, rifaximin, and spironolactone. ALLERGIES: No known drug allergies. SOCIAL HISTORY: Denies any substance abuse. Presently drinks alcohol. She lives alone. REVIEW OF SYSTEMS: Mostly as above. Denies any dysuria, frequency, or hematuria. Complained about abdominal distention. Denies any hemoptysis or hematochezia. Denies any bright red blood per rectum. Denies any loss of consciousness. Denies any fall or head trauma. PHYSICAL EXAMINATION: VITAL SIGNS: On admission from the ER, temperature 98.2, pulse of 84, respirations 18, and blood pressure 143/72. GENERAL: The patient is awake, responsive, in no acute distress. HEAD AND NECK: Pupils are equal and reactive to light. Extraocular movements intact. Neck was supple. No JVD. LUNGS: Good air entry. No wheezes or rhonchi. Decreased air in the bases. HEART: S1, S2. Regular rate and rhythm with a systolic ejection murmur. ABDOMEN: Soft, distended. Fluid shift. Morbidly obese. Generalized tenderness. No rebound tenderness. EXTREMITIES: No cyanosis or clubbing. +2 edema in bilateral lower extremities. NEUROLOGIC: Cranial nerves II through XII are grossly intact. Motor is 5/5 and symmetric. Gait is intact. RECTAL: Refused and deferred. GENITOURINARY: Refused and deferred. PSYCHIATRIC: Mood and affect is intact. LABORATORY AND DIAGNOSTIC DATA: Laboratory on admission from the ER is significant for WBC of 2.7, hemoglobin 8.2, hematocrit 27, platelet is 77,000. Sodium 138, potassium 3.5, chloride 102, bicarbonate 25, BUN 13, creatinine 1.3, glucose is 226. Lactic acid is 3.5 and repeat was 2.3. Calcium is 8.3, magnesium 1.7, total bilirubin of 1.2, direct bilirubin of 0.7. Troponin 0.09. Ammonia level is 49. Lipase is 49. PT of 12, INR 1.2, and PTT of 28. Urinalysis, +1 ketone, +1 leukocytes. Chest x-ray, no acute cardiopulmonary disease. The patient underwent abdominal paracentesis by Radiology, successful removal of 4 liters of fluid. ASSESSMENT: 1. Ascites. 2. Abdominal pain, most likely secondary to ascites. 3. Alcohol abuse with alcoholism. 4. History of prior GI bleed due to the Dieulafoy lesion in the peripyloric region. 5. Pancytopenia. 6. Diabetes type 2. 7. Hypertension. 8. Morbid obesity. 9. Anasarca with fluid overload. 10. Hepatic encephalopathy. 11. Lactic acidosis. PLAN: Admit the patient to medical floor. We will follow up laboratory, ultrasound of abdomen. Follow up with Dr. Torres from Gastroenterology, who knows the patient from prior admission and Dr. Zarrabi, Pulmonary/Critical Care. Code status, Full Code. DVT prophylaxis, SCD. We will follow up with cultures. Broad-spectrum antibiotic with Cipro was started. Goldy Amador M.D. DR: Bonnie JOB#: [id number] CC:
[2019-03-11] MEDS: NovoLOG Insulin Flexpen SUBQ SCH (20:58)
[2019-03-11] MEDS ORDERED: Miralax 17gm pkt ORAL PRN (21:00)
[2019-03-11] MEDS: Morphine Sulfate 2mg/ml Inj(IV/IM USE ONLY) IVP PRN (21:01)
[2019-03-12] VITALS: BP 143/76
--- NOTE | 2019-03-12 00:50 | NUR ---
NURSE NOTES: Patient's verbalized pain on the on the right antecubital IV site, leaking blood. Explained patient regarding the procedure to be performed. Patient agreed and confirmed okay to place a new IV. New 24g IV inserted on the left wrist. Asymptomatic, intact, patent, clean, dry, and currently saline locked. Previous IV site is discontinued. Patient tolerated the procedure well. Call light placed within reach. Will continue to monitor.
[2019-03-12 04:00] VITALS: BP 124/62
[2019-03-12] MEDS: Lactulose 20gm/30ml UDC ORAL SCH ×3 (05:46→22:06)
[2019-03-12] MEDS: NovoLOG Insulin Flexpen SUBQ SCH ×4 (06:24→22:22)
--- NOTE | 2019-03-12 07:20 | Consultation ---
History of Present Illness General Date patient seen: Mar 12, 2019 Chief Complaint: Edema Present Illness HPI 58 year old female with hx of end-stage liver disease, recurrent ascites, recently hospitalized at [facility], presented to ER with CC of increased abdominal girth and increased confusion. Pt is admitted for hepatic encephalopathy and anasarca. Allergies: Coded Allergies: No Known Allergies (Unverified , 01/31/19) Medication History Scheduled Amlodipine Besylate* (Amlodipine Besylate*), 5 MG ORAL DAILY, (Reported) Atorvastatin (Lipitor), 40 MG ORAL BEDTIME, (Reported) Ca Carbonate/Vitamin D3/Vit K (Calcium + D Soft Chewable Tab), 1 EACH PO BID, ( Reported) Cholestyramine (Cholestyramine Resin), 5 GM ORAL DAILY, (Reported) Ferrous Sulfate* (Ferrous Sulfate*), 325 MG ORAL DAILY, (Reported) Folic Acid* (Folic Acid*), 1 MG ORAL DAILY, (Reported) Furosemide* (Lasix*), 40 MG ORAL DAILY Furosemide* (Lasix*), 20 MG ORAL DAILY, (Reported) Insulin Glargine (Lantus), 0 SUBQ BEDTIME, (Reported) Lactulose (Lactulose*), 15 GM ORAL Q8HR Losartan Potassium (Losartan Potassium), 100 MG ORAL DAILY, (Reported) Metformin Hcl* (Metformin Hcl*), 1,000 MG ORAL BID, (Reported) Omeprazole (Omeprazole), 20 MG ORAL BID, (Reported) Rifaximin* (Xifaxan*), 550 MG ORAL TWICE A DAY, (Reported) Spironolactone (Aldactone), 50 MG ORAL DAILY Miscellaneous Medications Lactulose (Lactulose*), 30 ML ORAL, (Reported) Patient History Healthcare decision maker Resuscitation status Full Code Advanced Directive on File Past Medical/Surgical History Past Medical/Surgical History: (1) Liver cirrhosis (2) Ascites (3) Thrombocytopenia (4) Anemia (5) Anasarca Review of Systems All Other Systems: negative except mentioned in HPI Physical Exam General Appearance: WD/WN Lines, tubes and drains: peripheral HEENT: normocephalic, atraumatic Neck: non-tender, normal alignment, supple, limited range of motion Respiratory/Chest: chest wall non-tender, lungs clear Breasts: no masses Cardiovascular/Chest: normal rate Abdomen: normal bowel sounds Genitourinary/Rectal: normal genital exam, normal rectal exam Last 24 Hour Vital Signs Date Time Temp Pulse Resp B/P (MAP) Pulse Ox O2 Delivery O2 Flow Rate FiO2 03/12/19 04:00 97.7 74 17 124/62 (82) 99 03/12/19 00:00 97.7 77 19 143/76 (98) 95 03/11/19 21:00 Room Air 03/11/19 20:00 98.6 64 18 135/71 (92) 100 03/11/19 18:05 98.8 71 20 133/85 100 Room Air 03/11/19 18:00 Room Air 03/11/19 18:00 97.9 80 18 132/68 (89) 97 03/11/19 16:38 98.8 78 20 141/84 100 Room Air 03/11/19 15:33 98.8 03/11/19 14:15 84 18 Room Air 03/11/19 14:13 98.2 84 18 143/72 (95) 97 Room Air 03/11/19 14:10 82 22 131/114 99 Room Air Intake and Output 03/11/19 03/12/19 19:00 07:00 Intake Total 56 ml Output Total 150 ml Balance -150 ml 56 ml Intake IV Total 56 ml Output Urine Total 150 ml Laboratory Tests Test 03/11/19 14:55 03/11/19 15:17 03/11/19 16:30 03/11/19 18:09 White Blood Count 2.7 K/UL (4.8-10.8) L Red Blood Count 3.25 M/UL (4.20-5.40) L Hemoglobin 8.2 G/DL (12.0-16.0) L Hematocrit 27.5 % (37.0-47.0) L Mean Corpuscular Volume 85 FL (80-99) Mean Corpuscular Hemoglobin 25.3 PG (27.0-31.0) L Mean Corpuscular Hemoglobin Concent 29.9 G/DL (32.0-36.0) L Red Cell Distribution Width 18.8 % (11.6-14.8) H Platelet Count 77 K/UL (150-450) L Mean Platelet Volume 8.4 FL (6.5-10.1) Neutrophils (%) (Auto) % (45.0-75.0) Lymphocytes (%) (Auto) % (20.0-45.0) Monocytes (%) (Auto) % (1.0-10.0) Eosinophils (%) (Auto) % (0.0-3.0) Basophils (%) (Auto) % (0.0-2.0) Differential Total Cells Counted 100 Neutrophils % (Manual) 79 % (45-75) H Lymphocytes % (Manual) 12 % (20-45) L Monocytes % (Manual) 6 % (1-10) Eosinophils % (Manual) 2 % (0-3) Basophils % (Manual) 1 % (0-2) Band Neutrophils 0 % (0-8) Platelet Estimate Decreased L Platelet Morphology Normal Hypochromasia 2+ Anisocytosis 2+ Erythrocyte Sedimentation Rate 94 MM/HR (0-30) H Reticulocyte Count 3.3 % (0.5-2.0) H Prothrombin Time 12.5 SEC (9.30-11.50) H Prothromb Time International Ratio 1.2 (0.9-1.1) H Activated Partial Thromboplast Time 28 SEC (23-33) Sodium Level 138 MMOL/L (136-145) Potassium Level 3.5 MMOL/L (3.5-5.1) Chloride Level 102 MMOL/L (98-107) Carbon Dioxide Level 25 MMOL/L (21-32) Anion Gap 11 mmol/L (5-15) Blood Urea Nitrogen 13 mg/dL (7-18) Creatinine 1.3 MG/DL (0.55-1.30) Estimat Glomerular Filtration Rate 42.2 mL/min (>60) Glucose Level 226 MG/DL (74-106) H Lactic Acid Level 3.50 mmol/L (0.4-2.0) H 2.30 mmol/L (0.66-2.22) H Calcium Level 8.3 MG/DL (8.5-10.1) L Magnesium Level 1.7 MG/DL (1.8-2.4) L Iron Level 22 ug/dL (50-175) L Total Iron Binding Capacity 230 ug/dL (250-450) L Percent Iron Saturation 10 % (15-50) L Unsaturated Iron Binding 208 ug/dL (112-346) Total Bilirubin 1.2 MG/DL (0.2-1.0) H Direct Bilirubin 0.7 MG/DL (0.0-0.3) H Aspartate Amino Transf (AST/SGOT) 38 U/L (15-37) H Alanine Aminotransferase (ALT/SGPT) 17 U/L (12-78) Alkaline Phosphatase 233 U/L (46-116) H Ammonia 49 umol/L (11-32) H Lactate Dehydrogenase 259 U/L (81-234) H Troponin I 0.009 ng/mL (0.000-0.056) Total Protein 6.4 G/DL (6.4-8.2) Albumin 1.9 G/DL (3.4-5.0) L Globulin 4.5 g/dL Albumin/Globulin Ratio 0.4 (1.0-2.7) L Lipase 49 U/L (73-393) L Carcinoembryonic Antigen Pending Vitamin B12 Level 930 PG/ML (193-986) Folate 34.2 NG/ML (8.6-58.9) Urine Color Brown Urine Appearance Clear Urine pH 5 (4.5-8.0) Urine Specific [place] 1.020 (1.005-1.035) Urine Protein Negative (NEGATIVE) Urine Glucose (UA) Negative (NEGATIVE) Urine Ketones 1+ (NEGATIVE) H Urine Blood Negative (NEGATIVE) Urine Nitrite Negative (NEGATIVE) Urine Bilirubin Negative (NEGATIVE) Urine Urobilinogen 4 MG/DL (0.0-1.0) H Urine Leukocyte Esterase 1+ (NEGATIVE) H Urine RBC 0-2 /HPF (0 - 2) Urine WBC 2-4 /HPF (0 - 2) Urine Squamous Epithelial Cells Few /LPF (NONE/OCC) Urine Bacteria Few /HPF (NONE) Body Fluid Source Ascitis fluid Body Fluid Volume 24 mL Body Fluid Appearance Hazy (Clear) Body Fluid RBC 2553 /CUMM Body Fluid Total Nucleated Cells 97 /CUMM Body Fluid Polynuclear WBCs (%) 34 % Body Fluid Mononuclear WBCs (%) 57 % Body Fluid Mesothelial Cells (%) 9 % Body Fluid Glucose Pending Body Fluid Total Protein Pending Body Fluid Albumin Pending Test 03/12/19 06:45 White Blood Count Pending Red Blood Count Pending Hemoglobin Pending Hematocrit Pending Mean Corpuscular Volume Pending Mean Corpuscular Hemoglobin Pending Mean Corpuscular Hemoglobin Concent Pending Red Cell Distribution Width Pending Platelet Count Pending Mean Platelet Volume Pending Neutrophils (%) (Auto) Pending Lymphocytes (%) (Auto) Pending Monocytes (%) (Auto) Pending Eosinophils (%) (Auto) Pending Basophils (%) (Auto) Pending Prothrombin Time Pending Prothromb Time International Ratio Pending Activated Partial Thromboplast Time Pending Sodium Level Pending Potassium Level Pending Chloride Level Pending Carbon Dioxide Level Pending Blood Urea Nitrogen Pending Creatinine Pending Estimat Glomerular Filtration Rate Pending Glucose Level Pending Calcium Level Pending Phosphorus Level Pending Magnesium Level Pending Total Bilirubin Pending Aspartate Amino Transf (AST/SGOT) Pending Alanine Aminotransferase (ALT/SGPT) Pending Alkaline Phosphatase Pending Total Protein Pending Albumin Pending Globulin Pending Height (Feet): 5 Height (Inches): 0.00 Weight (Pounds): 200 Medications Current Medications Medications (Trade) Dose Ordered Sig/Almaz Route PRN Reason Start Time Stop Time Status Last Admin Dose Admin Acetaminophen (Tylenol) 650 mg Q4H PRN ORAL T>100.5 03/11/19 18:15 04/10/19 18:14 Amlodipine Besylate (Norvasc) 5 mg DAILY ORAL 03/12/19 09:00 04/11/19 08:59 Ciprofloxacin (Cipro 500mg tab) 500 mg EVERY 12 HOURS ORAL 03/11/19 19:30 03/18/19 19:29 03/11/19 20:07 Dextrose (Dextrose 50%) 25 ml Q30M PRN IV Hypoglycemia 03/11/19 18:30 04/10/19 18:17 Dextrose (Dextrose 50%) 50 ml Q30M PRN IV hypoglycemia 03/11/19 18:30 04/10/19 18:29 Diphenhydramine HCl (Benadryl) 25 mg Q6H PRN ORAL Itching/Pruritis 03/11/19 18:15 04/10/19 18:14 Folic Acid (Folate) 1 mg DAILY ORAL 03/12/19 09:00 04/11/19 08:59 Furosemide (Lasix) 40 mg DAILY ORAL 03/12/19 09:00 04/11/19 08:59 Insulin Aspart (NovoLOG) BEFORE MEALS AND HS SUBQ 03/11/19 21:00 04/10/19 20:59 03/11/19 20:58 Lactulose (Cephulac) 20 gm EVERY 8 HOURS ORAL 03/11/19 18:15 04/10/19 18:14 03/12/19 05:46 Morphine Sulfate (Morphine Sulfate) 2 mg Q4H PRN IVP Severe Pain (Pain Scale 7-10) 03/11/19 18:15 03/18/19 18:14 03/11/19 21:01 Nitroglycerin (Ntg) 0.4 mg Q5M X 3 DOSES PRN SL Prn Chest Pain 03/11/19 18:15 04/10/19 18:14 Ondansetron HCl (Zofran) 4 mg Q6H PRN IVP Nausea & Vomiting 03/11/19 18:15 04/10/19 18:14 Polyethylene Glycol (Miralax) 17 gm HSPRN PRN ORAL Constipation 03/11/19 21:00 04/10/19 20:59 Temazepam (Restoril) 15 mg HSPRN PRN ORAL Insomnia 03/11/19 21:00 03/18/19 20:59 Assessment/Plan Problem List: (1) Acute metabolic encephalopathy ICD Codes: G93.41 - Metabolic encephalopathy SNOMED: 02279601, 663139743 (2) Ascites ICD Codes: R18.8 - Other ascites SNOMED: 880503558 Qualifiers: Qualified Codes: K70.31 - Alcoholic cirrhosis of liver with ascites (3) Abdominal pain ICD Codes: R10.9 - Unspecified abdominal pain SNOMED: 21578890 Qualifiers: Qualified Codes: R10.84 - Generalized abdominal pain (4) Liver cirrhosis ICD Codes: K74.60 - Unspecified cirrhosis of liver SNOMED: 67257717 Qualifiers: Qualified Codes: K70.31 - Alcoholic cirrhosis of liver with ascites (5) ETOH abuse ICD Codes: F10.10 - Alcohol abuse, uncomplicated SNOMED: 62275847 (6) Anasarca ICD Codes: R60.1 - Generalized edema SNOMED: 259152452, 718794722 (7) Anemia ICD Codes: D64.9 - Anemia, unspecified SNOMED: 851232914 Qualifiers: Qualified Codes: D64.9 - Anemia, unspecified (8) Thrombocytopenia ICD Codes: D69.6 - Thrombocytopenia, unspecified SNOMED: 805682585 Assessment/Plan: symptomatic treatment pt continues to drink despite end stage liver disease, claims she is receiving treatment for her liver at [facility] f/u ammonia level, continue lactulose watch plt, and cbc. thiamine and folic acid. Shireen Khan MD Mar 12, 2019 07:20
--- NOTE | 2019-03-12 07:28 | NUR ---
HAND-OFF: Report given to CHAVA Rodriguez.
[2019-03-12 07:30] LABS: INR 1.1 (0.9-1.1)
[2019-03-12] MEDS ORDERED: chlordiazePOXIDE 25mg Cap ORAL PRN (07:30)
--- NOTE | 2019-03-12 07:30 | NUR ---
NURSE NOTES: Patient lying in bed awake. No complain of pain or distress at this time. Dressing on paracentesis site intact and dry. IV dressing intact and dry. Bed lowest position. Call light within reach. Will continue to monitor.
[2019-03-12 07:38] LABS: HEMATOCRIT 25.9 % (37.0-47.0); HEMOGLOBIN 7.9 G/DL (12.0-16.0); MEAN CORPUSCULAR VOLUME 84 FL (80-99); PLATELET COUNT 69 K/UL (150-450); RED CELL DISTRIBUTION WIDTH 18.9 % (11.6-14.8)
[2019-03-12 07:40] LABS: WHITE BLOOD COUNT 2.1 K/UL (4.8-10.8)
[2019-03-12 07:42] LABS: ALANINE AMINOTRANSFERASE 15 U/L (12-78); ALBUMIN 1.9 G/DL (3.4-5.0); ALBUMIN/GLOBULIN RATIO 0.4 (1.0-2.7); ALKALINE PHOSPHATASE 217 U/L (46-116); ANION GAP 9 mmol/L (5-15); ASPARTATE AMINO TRANSFERASE 36 U/L (15-37); BILIRUBIN,TOTAL 1.7 MG/DL (0.2-1.0); BLOOD UREA NITROGEN 11 mg/dL (7-18); CALCIUM 8.2 MG/DL (8.5-10.1); CARBON DIOXIDE 25 MMOL/L (21-32); CHLORIDE 105 MMOL/L (98-107); CREATININE 1.1 MG/DL (0.55-1.30); POTASSIUM 3.4 MMOL/L (3.5-5.1); SODIUM 139 MMOL/L (136-145)
[2019-03-12 07:48] LABS: BILIRUBIN,DIRECT 0.9 MG/DL (0.0-0.3)
--- NOTE | 2019-03-12 07:55 | NUR ---
NURSE NOTES: Spoke to regarding WBC lab result. No new order at this time and monitor for now. Will continue to monitor.
[2019-03-12 07:57] LABS: PHOSPHORUS 3.2 MG/DL (2.5-4.9)
[2019-03-12 08:00] VITALS: BP 154/70
--- NOTE | 2019-03-12 08:55 | NUR ---
NURSE NOTES: Collected Stool specimen and sent to lab.
[2019-03-12] MEDS ORDERED: Furosemide 40mg tab ORAL SCH (09:00)
[2019-03-12] MEDS ORDERED: Vitamin B12 1000mcg/ml Inj IM SCH (09:00)
[2019-03-12] MEDS ORDERED: NS 275ml ONE (09:16)
[2019-03-12] MEDS ORDERED: Tubing IV Secondary IV ONE (09:16)
[2019-03-12] MEDS: Spironolactone 50mg tab ORAL SCH (09:39)
[2019-03-12] MEDS: Ciprofloxacin 500mg tab ORAL SCH ×2 (09:40→22:15)
[2019-03-12] MEDS ORDERED: Iron Sucrose 200 MG in NS 110 ML IV SCH (10:00)
--- NOTE | 2019-03-12 10:09 | Diagnostic Imaging Report ---
Indication: Abdominal distention elevated liver function tests and cirrhosis Technique: Grayscale and duplex Doppler imaging of the abdomen performed. Comparison: None Findings: Liver is heterogeneous and shows a surface nodularity indicative of cirrhosis. There is ascites. Doppler interrogation of the main portal vein shows patency with hepatopedal, monophasic flow. There is no biliary ductal dilatation identified. There is no hydronephrosis in the right kidney. Gallbladder wall thickening and multiple stones are demonstrated. CBD is 3 mm in diameter. The spleen is enlarged measuring 20 cm. Sonographic Dodge's sign was negative per technologist. The pancreas, aorta and IVC are not well seen. The left kidney is also not well-seen. Impression: Chronic liver disease/cirrhosis with stigmata of portal hypertension including moderate ascites and splenomegaly. Gallstones with gallbladder wall thickening. Correlate for cholecystitis. Limited evaluation otherwise as described above
[2019-03-12] MEDS: Morphine Sulfate 2mg/ml Inj(IV/IM USE ONLY) IVP PRN ×2 (11:32→22:14)
[2019-03-12] MEDS: Thiamine HCl 100 MG in D5W 55 ML IVPB SCH (11:32)
[2019-03-12 12:00] VITALS: BP 134/72
--- NOTE | 2019-03-12 14:29 | NUR ---
CASE MANAGEMENT: INITIAL REVIEW 58 YO F PRESENTED TO OUR ED FROM HOME CC: EDEMA PMHx: EGD. LIVER CIRRHOSIS. HEPATIC ENCEPHALOPATHY. ANEMIA. HTN. DM. SI:ASCITES. T 98.2 HR 84 RR 18 B/P 143/72 SATS 97% ON RA WBC 2.1 HGB 7.9 HCT 25.9 GLU 226 LACTIC ACID 3.5 CA 8.3 MG 1.7 TBILI 1.2 DBILI 0.7 AST 38 ALP 233 AMMONIA 49 LACTATE DEH 259 IS: ZOFRAN IV X1 PEPCID IV X1 MORPHINE IV X1 PATIENT ADMITTED TO MED/SURG 03/11/2019 @ 1528 DCP; PATIENT TO BE DISCHARGED TO HOME ONCE MEDICALLY CLEARED. PLAN OF CARE: CT ABD/PELVIS Addendum: 03/12/19 at 1518 by Iris Spaulding CM INTERQUAL MET
--- NOTE | 2019-03-12 14:38 | Internal Med Progress Note ---
Subjective Physician Name Goldy Amador Attending Physician Goldy Amador MD Current Medications Medications (Trade) Dose Ordered Sig/Almaz Route PRN Reason Start Time Stop Time Status Last Admin Dose Admin Acetaminophen (Tylenol) 650 mg Q4H PRN ORAL T>100.5 03/11/19 18:15 04/10/19 18:14 Amlodipine Besylate (Norvasc) 5 mg DAILY ORAL 03/12/19 09:00 04/11/19 08:59 03/12/19 09:40 Chlordiazepoxide (Librium) 25 mg Q6H PRN ORAL Agitation 03/12/19 07:30 03/19/19 07:29 Ciprofloxacin (Cipro 500mg tab) 500 mg EVERY 12 HOURS ORAL 03/11/19 19:30 03/18/19 19:29 03/12/19 09:40 Dextrose (Dextrose 50%) 25 ml Q30M PRN IV Hypoglycemia 03/11/19 18:30 04/10/19 18:17 Dextrose (Dextrose 50%) 50 ml Q30M PRN IV hypoglycemia 03/11/19 18:30 04/10/19 18:29 Diphenhydramine HCl (Benadryl) 25 mg Q6H PRN ORAL Itching/Pruritis 03/11/19 18:15 04/10/19 18:14 Folic Acid (Folate) 1 mg DAILY ORAL 03/12/19 09:00 04/11/19 08:59 03/12/19 09:40 Furosemide (Lasix) 40 mg DAILY IV 03/12/19 09:00 04/11/19 08:59 03/12/19 09:40 Insulin Aspart (NovoLOG) BEFORE MEALS AND HS SUBQ 03/11/19 21:00 04/10/19 20:59 03/12/19 12:21 Lactulose (Cephulac) 20 gm EVERY 8 HOURS ORAL 03/11/19 18:15 04/10/19 18:14 03/12/19 05:46 Morphine Sulfate (Morphine Sulfate) 2 mg Q4H PRN IVP Severe Pain (Pain Scale 7-10) 03/11/19 18:15 03/18/19 18:14 03/12/19 11:32 Nitroglycerin (Ntg) 0.4 mg Q5M X 3 DOSES PRN SL Prn Chest Pain 03/11/19 18:15 04/10/19 18:14 Ondansetron HCl (Zofran) 4 mg Q6H PRN IVP Nausea & Vomiting 03/11/19 18:15 04/10/19 18:14 Polyethylene Glycol (Miralax) 17 gm HSPRN PRN ORAL Constipation 03/11/19 21:00 04/10/19 20:59 Spironolactone (Aldactone) 100 mg DAILY ORAL 03/12/19 09:00 04/11/19 08:59 03/12/19 09:39 Temazepam (Restoril) 15 mg HSPRN PRN ORAL Insomnia 03/11/19 21:00 03/18/19 20:59 Thiamine HCl 100 mg/Dextrose 56 ml @ 112 mls/hr Q24H IVPB 03/12/19 11:00 04/11/19 10:59 03/12/19 11:32 Allergies: Coded Allergies: No Known Allergies (Unverified , 01/31/19) Subjective Awake, alert, responsive, complaining about lower abdominal pain, denies any nausea or vomiting. Objective Last Vital Signs Date Time Temp Pulse Resp B/P (MAP) Pulse Ox O2 Delivery O2 Flow Rate FiO2 03/12/19 12:00 97.8 82 18 134/72 (92) 97 03/12/19 09:00 Room Air Laboratory Tests Test 03/11/19 14:55 03/11/19 15:17 03/11/19 16:30 03/11/19 18:09 White Blood Count 2.7 K/UL (4.8-10.8) L Red Blood Count 3.25 M/UL (4.20-5.40) L Hemoglobin 8.2 G/DL (12.0-16.0) L Hematocrit 27.5 % (37.0-47.0) L Mean Corpuscular Volume 85 FL (80-99) Mean Corpuscular Hemoglobin 25.3 PG (27.0-31.0) L Mean Corpuscular Hemoglobin Concent 29.9 G/DL (32.0-36.0) L Red Cell Distribution Width 18.8 % (11.6-14.8) H Platelet Count 77 K/UL (150-450) L Mean Platelet Volume 8.4 FL (6.5-10.1) Neutrophils (%) (Auto) % (45.0-75.0) Lymphocytes (%) (Auto) % (20.0-45.0) Monocytes (%) (Auto) % (1.0-10.0) Eosinophils (%) (Auto) % (0.0-3.0) Basophils (%) (Auto) % (0.0-2.0) Differential Total Cells Counted 100 Neutrophils % (Manual) 79 % (45-75) H Lymphocytes % (Manual) 12 % (20-45) L Monocytes % (Manual) 6 % (1-10) Eosinophils % (Manual) 2 % (0-3) Basophils % (Manual) 1 % (0-2) Band Neutrophils 0 % (0-8) Platelet Estimate Decreased L Platelet Morphology Normal Hypochromasia 2+ Anisocytosis 2+ Erythrocyte Sedimentation Rate 94 MM/HR (0-30) H Reticulocyte Count 3.3 % (0.5-2.0) H Prothrombin Time 12.5 SEC (9.30-11.50) H Prothromb Time International Ratio 1.2 (0.9-1.1) H Activated Partial Thromboplast Time 28 SEC (23-33) Sodium Level 138 MMOL/L (136-145) Potassium Level 3.5 MMOL/L (3.5-5.1) Chloride Level 102 MMOL/L (98-107) Carbon Dioxide Level 25 MMOL/L (21-32) Anion Gap 11 mmol/L (5-15) Blood Urea Nitrogen 13 mg/dL (7-18) Creatinine 1.3 MG/DL (0.55-1.30) Estimat Glomerular Filtration Rate 42.2 mL/min (>60) Glucose Level 226 MG/DL (74-106) H Lactic Acid Level 3.50 mmol/L (0.4-2.0) H 2.30 mmol/L (0.66-2.22) H Calcium Level 8.3 MG/DL (8.5-10.1) L Magnesium Level 1.7 MG/DL (1.8-2.4) L Iron Level 22 ug/dL (50-175) L Total Iron Binding Capacity 230 ug/dL (250-450) L Percent Iron Saturation 10 % (15-50) L Unsaturated Iron Binding 208 ug/dL (112-346) Total Bilirubin 1.2 MG/DL (0.2-1.0) H Direct Bilirubin 0.7 MG/DL (0.0-0.3) H Aspartate Amino Transf (AST/SGOT) 38 U/L (15-37) H Alanine Aminotransferase (ALT/SGPT) 17 U/L (12-78) Alkaline Phosphatase 233 U/L (46-116) H Ammonia 49 umol/L (11-32) H Lactate Dehydrogenase 259 U/L (81-234) H Troponin I 0.009 ng/mL (0.000-0.056) Total Protein 6.4 G/DL (6.4-8.2) Albumin 1.9 G/DL (3.4-5.0) L Globulin 4.5 g/dL Albumin/Globulin Ratio 0.4 (1.0-2.7) L Lipase 49 U/L (73-393) L Carcinoembryonic Antigen 3.5 ng/mL (0.0-4.7) Vitamin B12 Level 930 PG/ML (193-986) Folate 34.2 NG/ML (8.6-58.9) Urine Color Brown Urine Appearance Clear Urine pH 5 (4.5-8.0) Urine Specific [place] 1.020 (1.005-1.035) Urine Protein Negative (NEGATIVE) Urine Glucose (UA) Negative (NEGATIVE) Urine Ketones 1+ (NEGATIVE) H Urine Blood Negative (NEGATIVE) Urine Nitrite Negative (NEGATIVE) Urine Bilirubin Negative (NEGATIVE) Urine Urobilinogen 4 MG/DL (0.0-1.0) H Urine Leukocyte Esterase 1+ (NEGATIVE) H Urine RBC 0-2 /HPF (0 - 2) Urine WBC 2-4 /HPF (0 - 2) Urine Squamous Epithelial Cells Few /LPF (NONE/OCC) Urine Bacteria Few /HPF (NONE) Body Fluid Source Ascitis fluid Body Fluid Volume 24 mL Body Fluid Appearance Hazy (Clear) Body Fluid RBC 2553 /CUMM Body Fluid Total Nucleated Cells 97 /CUMM Body Fluid Polynuclear WBCs (%) 34 % Body Fluid Mononuclear WBCs (%) 57 % Body Fluid Mesothelial Cells (%) 9 % Body Fluid Glucose 193 mg/dL (.) Body Fluid Total Protein 1.3 g/dL (.) Body Fluid Albumin 0.5 g/dL (.) Test 03/12/19 06:45 03/12/19 08:03/12/19 08:54 White Blood Count 2.1 K/UL (4.8-10.8) *L Red Blood Count 3.10 M/UL (4.20-5.40) L Hemoglobin 7.9 G/DL (12.0-16.0) L Hematocrit 25.9 % (37.0-47.0) L Mean Corpuscular Volume 84 FL (80-99) Mean Corpuscular Hemoglobin 25.5 PG (27.0-31.0) L Mean Corpuscular Hemoglobin Concent 30.6 G/DL (32.0-36.0) L Red Cell Distribution Width 18.9 % (11.6-14.8) H Platelet Count 69 K/UL (150-450) L Mean Platelet Volume 7.4 FL (6.5-10.1) Neutrophils (%) (Auto) % (45.0-75.0) Lymphocytes (%) (Auto) % (20.0-45.0) Monocytes (%) (Auto) % (1.0-10.0) Eosinophils (%) (Auto) % (0.0-3.0) Basophils (%) (Auto) % (0.0-2.0) Differential Total Cells Counted 100 Neutrophils % (Manual) 76 % (45-75) H Lymphocytes % (Manual) 15 % (20-45) L Monocytes % (Manual) 3 % (1-10) Eosinophils % (Manual) 6 % (0-3) H Basophils % (Manual) 0 % (0-2) Band Neutrophils 0 % (0-8) Platelet Estimate Decreased L Platelet Morphology Normal Hypochromasia 2+ Anisocytosis 2+ Prothrombin Time 11.9 SEC (9.30-11.50) H Prothromb Time International Ratio 1.1 (0.9-1.1) Activated Partial Thromboplast Time 29 SEC (23-33) Sodium Level 139 MMOL/L (136-145) Potassium Level 3.4 MMOL/L (3.5-5.1) L Chloride Level 105 MMOL/L (98-107) Carbon Dioxide Level 25 MMOL/L (21-32) Anion Gap 9 mmol/L (5-15) Blood Urea Nitrogen 11 mg/dL (7-18) Creatinine 1.1 MG/DL (0.55-1.30) Estimat Glomerular Filtration Rate 51.2 mL/min (>60) Glucose Level 112 MG/DL (74-106) #H Calcium Level 8.2 MG/DL (8.5-10.1) L Phosphorus Level 3.2 MG/DL (2.5-4.9) Magnesium Level 1.7 MG/DL (1.8-2.4) L Total Bilirubin 1.7 MG/DL (0.2-1.0) H Direct Bilirubin 0.9 MG/DL (0.0-0.3) H Aspartate Amino Transf (AST/SGOT) 36 U/L (15-37) Alanine Aminotransferase (ALT/SGPT) 15 U/L (12-78) Alkaline Phosphatase 217 U/L (46-116) H Total Protein 6.2 G/DL (6.4-8.2) L Albumin 1.9 G/DL (3.4-5.0) L Globulin 4.3 g/dL Albumin/Globulin Ratio 0.4 (1.0-2.7) L Ammonia 52 umol/L (11-32) H Stool Occult Blood Pending Intake and Output 03/11/19 03/12/19 19:00 07:00 Intake Total 56 ml Output Total 150 ml Balance -150 ml 56 ml Intake IV Total 56 ml Output Urine Total 150 ml Objective GENERAL: The patient is awake, responsive, in no acute distress. HEAD AND NECK: Pupils are equal and reactive to light. Extraocular movements intact. Neck was supple. No JVD. LUNGS: Good air entry. No wheezes or rhonchi. Decreased air in the bases. HEART: S1, S2. Regular rate and rhythm with a systolic ejection murmur. ABDOMEN: Soft, distended. Fluid shift. Morbidly obese. lower abdominal tender. No rebound tenderness. EXTREMITIES: No cyanosis or clubbing. +2 edema in bilateral lower extremities. NEUROLOGIC: Cranial nerves II through XII are grossly intact. Motor is 5/5 and symmetric. Gait is intact. RECTAL: Refused and deferred. Assessment/Plan Assessment/Plan ASSESSMENT: 1. Ascites. 2. Abdominal pain, most likely secondary to ascites. 3. Alcohol abuse with alcoholism. 4. History of prior GI bleed due to the Dieulafoy lesion in the peripyloric region. 5. Pancytopenia. 6. Diabetes type 2. 7. Hypertension. 8. Morbid obesity. 9. Anasarca with fluid overload. 10. Hepatic encephalopathy. 11. Lactic acidosis. 12. Gallbladder wall thickening R/O Acute cholecystitis. PLAN: In medical floor. Follow up laboratory. ultrasound of abdomen noted. Follow up with Dr. Torres from Gastroenterology and Dr. Khan, Pulmonary/ Critical Care. Code status, Full Code. DVT prophylaxis, SCD. We will follow up with cultures. Broad-spectrum antibiotic: Cipro and Flagyl CT scan of the abdomen and pelvic. Consider surgical consultation. US Abdomen: Impression: Chronic liver disease/cirrhosis with stigmata of portal hypertension including moderate ascites and splenomegaly. Gallstones with gallbladder wall thickening. Correlate for cholecystitis. Goldy Amador MD Mar 12, 2019 14:38
[2019-03-12] MEDS ORDERED: Isovue-300 100ml vial INJ PRN (14:45)
[2019-03-12 16:00] VITALS: BP 128/68
--- NOTE | 2019-03-12 16:00 | Consultation ---
DATE OF CONSULTATION: 03/12/2019 CHIEF COMPLAINT: Abdominal pain. HISTORY OF PRESENT ILLNESS: This is a 58-year-old female who is known to me from last admission with history of cirrhosis, complicated with ascites. The patient had a massive gastrointestinal bleeding last time from a Dieulafoy lesion in the pylorus, which required intubation and transferred to intensive care unit. The patient recovered, was discharged, came back again with increased abdominal girth. Since admission, the patient required 4 liters of paracentesis. PAST MEDICAL HISTORY: 1. History of cirrhosis. 2. History of upper GI bleeding from a Dieulafoy lesion in the pylorus. 3. Hypertension. 4. Diabetes type 2. 5. Ascites. MEDICATIONS: Please see medication reconciliation list. ALLERGIES: No drug allergies. SOCIAL HISTORY: The patient is alcoholic. According to her, she quit 9 days ago. Denies any tobacco or IV drug abuse. FAMILY HISTORY: Noncontributory. REVIEW OF SYSTEMS: A 10-point review of systems was performed and pertinent positives in HPI. PHYSICAL EXAMINATION: VITAL SIGNS: Temperature 97.7, pulse 74, respirations 20, and blood pressure 124/63. HEENT: Normocephalic and atraumatic. Sclerae anicteric. NECK: Supple. No evidence of obvious lymphadenopathy. CARDIOVASCULAR: Regular rate and rhythm. Plus S1 and S2. No obvious murmur. LUNGS: Decreased breath sounds bilaterally on both sides, right more than left. ABDOMEN: Soft. Mildly distended. Minimally tender in the epigastric area. No rebound. No guarding. No peritoneal sign. EXTREMITIES: Bilateral lower extremity pitting edema. LABORATORY DATA: White count is 2.7, hemoglobin 8.2, and platelet count is 77,000. ASSESSMENT AND PLAN: A 58-year-old female with alcoholic cirrhosis complicated with ascites. Plan will be to start her on diet. Changed her Lasix from p.o. to IV. Add Aldactone 100 mg daily. Monitor for electrolytes. No need for repeat endoscopy at this time. There is no active GI bleeding. The patient needs to be monitored closely. I want to thank, Dr. Goldy amador, for this kind referral. Jon Torres M.D. DR: EDWIN JOB#: [id number] CC: Goldy Amador M.D.; Fax#: [phone]
--- NOTE | 2019-03-12 17:16 | Consultation ---
History of Present Illness General Date patient seen: Mar 12, 2019 Reason for Hospitalization: Edema Present Illness HPI 58 year old female with history of liver disease and prior GI bleed who presents with abdominal distention and feeling swollen / uncomfortable. On admission c/o abdominal pain. surgery called to evaluate. patient seen, chart reviewed, patient examined. no n/v/f/c. +flatus. states pain cramping generalized abdominal pain. CT noted. labs abnormal. s/p paracentesis Allergies: Coded Allergies: No Known Allergies (Unverified , 01/31/19) Medication History Scheduled Amlodipine Besylate* (Amlodipine Besylate*), 5 MG ORAL DAILY, (Reported) Atorvastatin (Lipitor), 40 MG ORAL BEDTIME, (Reported) Ca Carbonate/Vitamin D3/Vit K (Calcium + D Soft Chewable Tab), 1 EACH PO BID, ( Reported) Cholestyramine (Cholestyramine Resin), 5 GM ORAL DAILY, (Reported) Ferrous Sulfate* (Ferrous Sulfate*), 325 MG ORAL DAILY, (Reported) Folic Acid* (Folic Acid*), 1 MG ORAL DAILY, (Reported) Furosemide* (Lasix*), 40 MG ORAL DAILY Furosemide* (Lasix*), 20 MG ORAL DAILY, (Reported) Insulin Glargine (Lantus), 0 SUBQ BEDTIME, (Reported) Lactulose (Lactulose*), 15 GM ORAL Q8HR Losartan Potassium (Losartan Potassium), 100 MG ORAL DAILY, (Reported) Metformin Hcl* (Metformin Hcl*), 1,000 MG ORAL BID, (Reported) Omeprazole (Omeprazole), 20 MG ORAL BID, (Reported) Rifaximin* (Xifaxan*), 550 MG ORAL TWICE A DAY, (Reported) Spironolactone (Aldactone), 50 MG ORAL DAILY Miscellaneous Medications Lactulose (Lactulose*), 30 ML ORAL, (Reported) Patient History History Provided By: Patient, Family Member, Medical Record, PMD Healthcare decision maker Resuscitation status Full Code Advanced Directive on File Past Medical/Surgical History Past Medical/Surgical History: (1) Anemia (2) Thrombocytopenia (3) Ascites (4) Elevated lactic acid level (5) Anasarca (6) Abdominal pain (7) Liver cirrhosis (8) Acute metabolic encephalopathy Review of Systems Review of Symptoms General ROS: no weight loss or fever Psychological ROS: no depression or mood changes, no memory loss Ophthalmic ROS: no visual changes or eye irritation ENT ROS: no nasal congestion, hearing loss, dizziness Allergy and Immunology ROS: no allergic symptoms or urticaria Hematological and Lymphatic ROS: no swollen glands, unusual bleeding or bruising Endocrine ROS: no polyuria, polydipsia, weight changes, temperature intolerance Respiratory ROS: no cough, shortness of breath, or wheezing Cardiovascular ROS: no chest pain or dyspnea on exertion Gastrointestinal ROS: abdominal pain, no bright red blood in stool. Musculoskeletal ROS: no myalgias or arthralgias Neurological ROS: no TIA or stroke symptoms Dermatological ROS: no new or changing skin lesions, rashes or pruritis Physical Exam Physical Exam General appearance: alert, cooperative, no distress, appears stated age Head: Normocephalic, without obvious abnormality, atraumatic Eyes: conjunctivae/corneas clear. PERRL, EOM's intact. Fundi benign Throat: Lips, mucosa, and tongue normal. Teeth and gums normal Neck: supple, symmetrical, trachea midline, no adenopathy, thyroid: not enlarged, symmetric, no tenderness/mass/nodules, no carotid bruit and no JVD Lungs: clear to auscultation bilaterally Heart: regular rate and rhythm, S1, S2 normal, no murmur, click, rub or gallop Abdomen: soft, discomfort/tender. Bowel sounds normal. No masses, no organomegaly fluid filled. edema Extremities: extremities normal, atraumatic, no cyanosis or edema Pulses: 2+ and symmetric Skin: Skin color, texture, turgor normal. No rashes or lesions Neurologic: Grossly normal Last 24 Hour Vital Signs Date Time Temp Pulse Resp B/P (MAP) Pulse Ox O2 Delivery O2 Flow Rate FiO2 03/12/19 16:00 98.5 80 20 128/68 (88) 97 03/12/19 12:00 97.8 82 18 134/72 (92) 97 03/12/19 09:40 86 154/70 03/12/19 09:00 Room Air 03/12/19 08:00 97.5 86 20 154/70 (98) 98 03/12/19 04:00 97.7 74 17 124/62 (82) 99 03/12/19 00:00 97.7 77 19 143/76 (98) 95 03/11/19 21:00 Room Air 03/11/19 20:00 98.6 64 18 135/71 (92) 100 03/11/19 18:05 98.8 71 20 133/85 100 Room Air 03/11/19 18:00 Room Air 03/11/19 18:00 97.9 80 18 132/68 (89) 97 Intake and Output 03/11/19 03/12/19 19:00 07:00 Intake Total 56 ml Output Total 150 ml Balance -150 ml 56 ml Intake IV Total 56 ml Output Urine Total 150 ml Laboratory Tests Test 03/11/19 18:09 03/12/19 06:45 03/12/19 08:25 03/12/19 08:54 Body Fluid Source Ascitis fluid Body Fluid Volume 24 mL Body Fluid Appearance Hazy (Clear) Body Fluid RBC 2553 /CUMM Body Fluid Total Nucleated Cells 97 /CUMM Body Fluid Polynuclear WBCs (%) 34 % Body Fluid Mononuclear WBCs (%) 57 % Body Fluid Mesothelial Cells (%) 9 % Body Fluid Glucose 193 mg/dL (.) Body Fluid Total Protein 1.3 g/dL (.) Body Fluid Albumin 0.5 g/dL (.) White Blood Count 2.1 K/UL (4.8-10.8) *L Red Blood Count 3.10 M/UL (4.20-5.40) L Hemoglobin 7.9 G/DL (12.0-16.0) L Hematocrit 25.9 % (37.0-47.0) L Mean Corpuscular Volume 84 FL (80-99) Mean Corpuscular Hemoglobin 25.5 PG (27.0-31.0) L Mean Corpuscular Hemoglobin Concent 30.6 G/DL (32.0-36.0) L Red Cell Distribution Width 18.9 % (11.6-14.8) H Platelet Count 69 K/UL (150-450) L Mean Platelet Volume 7.4 FL (6.5-10.1) Neutrophils (%) (Auto) % (45.0-75.0) Lymphocytes (%) (Auto) % (20.0-45.0) Monocytes (%) (Auto) % (1.0-10.0) Eosinophils (%) (Auto) % (0.0-3.0) Basophils (%) (Auto) % (0.0-2.0) Differential Total Cells Counted 100 Neutrophils % (Manual) 76 % (45-75) H Lymphocytes % (Manual) 15 % (20-45) L Monocytes % (Manual) 3 % (1-10) Eosinophils % (Manual) 6 % (0-3) H Basophils % (Manual) 0 % (0-2) Band Neutrophils 0 % (0-8) Platelet Estimate Decreased L Platelet Morphology Normal Hypochromasia 2+ Anisocytosis 2+ Prothrombin Time 11.9 SEC (9.30-11.50) H Prothromb Time International Ratio 1.1 (0.9-1.1) Activated Partial Thromboplast Time 29 SEC (23-33) Sodium Level 139 MMOL/L (136-145) Potassium Level 3.4 MMOL/L (3.5-5.1) L Chloride Level 105 MMOL/L (98-107) Carbon Dioxide Level 25 MMOL/L (21-32) Anion Gap 9 mmol/L (5-15) Blood Urea Nitrogen 11 mg/dL (7-18) Creatinine 1.1 MG/DL (0.55-1.30) Estimat Glomerular Filtration Rate 51.2 mL/min (>60) Glucose Level 112 MG/DL (74-106) #H Calcium Level 8.2 MG/DL (8.5-10.1) L Phosphorus Level 3.2 MG/DL (2.5-4.9) Magnesium Level 1.7 MG/DL (1.8-2.4) L Total Bilirubin 1.7 MG/DL (0.2-1.0) H Direct Bilirubin 0.9 MG/DL (0.0-0.3) H Aspartate Amino Transf (AST/SGOT) 36 U/L (15-37) Alanine Aminotransferase (ALT/SGPT) 15 U/L (12-78) Alkaline Phosphatase 217 U/L (46-116) H Total Protein 6.2 G/DL (6.4-8.2) L Albumin 1.9 G/DL (3.4-5.0) L Globulin 4.3 g/dL Albumin/Globulin Ratio 0.4 (1.0-2.7) L Ammonia 52 umol/L (11-32) H Stool Occult Blood Pending Height (Feet): 5 Height (Inches): 0.00 Weight (Pounds): 200 Medications Current Medications Medications (Trade) Dose Ordered Sig/Almaz Route PRN Reason Start Time Stop Time Status Last Admin Dose Admin Acetaminophen (Tylenol) 650 mg Q4H PRN ORAL T>100.5 03/11/19 18:15 04/10/19 18:14 Amlodipine Besylate (Norvasc) 5 mg DAILY ORAL 03/12/19 09:00 04/11/19 08:59 03/12/19 09:40 Barium Sulfate (Readi-Cat 2) 450 ml NOW PRN ORAL Radiology Procedure 03/12/19 14:45 03/14/19 14:34 Chlordiazepoxide (Librium) 25 mg Q6H PRN ORAL Agitation 03/12/19 07:30 03/19/19 07:29 Ciprofloxacin (Cipro 500mg tab) 500 mg EVERY 12 HOURS ORAL 03/11/19 19:30 03/18/19 19:29 03/12/19 09:40 Dextrose (Dextrose 50%) 25 ml Q30M PRN IV Hypoglycemia 03/11/19 18:30 04/10/19 18:17 Dextrose (Dextrose 50%) 50 ml Q30M PRN IV hypoglycemia 03/11/19 18:30 04/10/19 18:29 Diphenhydramine HCl (Benadryl) 25 mg Q6H PRN ORAL Itching/Pruritis 03/11/19 18:15 04/10/19 18:14 Folic Acid (Folate) 1 mg DAILY ORAL 03/12/19 09:00 04/11/19 08:59 03/12/19 09:40 Furosemide (Lasix) 40 mg DAILY IV 03/12/19 09:00 04/11/19 08:59 03/12/19 09:40 Insulin Aspart (NovoLOG) BEFORE MEALS AND HS SUBQ 03/11/19 21:00 04/10/19 20:59 03/12/19 12:21 Iopamidol (Isovue-300 100ml) 100 ml NOW PRN INJ Radiology Procedure 03/12/19 14:45 03/13/19 14:44 Lactulose (Cephulac) 20 gm EVERY 8 HOURS ORAL 03/11/19 18:15 04/10/19 18:14 03/12/19 14:23 Metronidazole 100 ml @ 100 mls/hr Q8HR IVPB 03/12/19 22:00 03/19/19 21:59 Morphine Sulfate (Morphine Sulfate) 2 mg Q4H PRN IVP Severe Pain (Pain Scale 7-10) 03/11/19 18:15 03/18/19 18:14 03/12/19 11:32 Nitroglycerin (Ntg) 0.4 mg Q5M X 3 DOSES PRN SL Prn Chest Pain 03/11/19 18:15 04/10/19 18:14 Ondansetron HCl (Zofran) 4 mg Q6H PRN IVP Nausea & Vomiting 03/11/19 18:15 04/10/19 18:14 Polyethylene Glycol (Miralax) 17 gm HSPRN PRN ORAL Constipation 03/11/19 21:00 04/10/19 20:59 Spironolactone (Aldactone) 100 mg DAILY ORAL 03/12/19 09:00 04/11/19 08:59 03/12/19 09:39 Temazepam (Restoril) 15 mg HSPRN PRN ORAL Insomnia 03/11/19 21:00 03/18/19 20:59 Thiamine HCl 100 mg/Dextrose 56 ml @ 112 mls/hr Q24H IVPB 03/12/19 11:00 04/11/19 10:59 03/12/19 11:32 Assessment/Plan Problem List: (1) Anemia ICD Codes: D64.9 - Anemia, unspecified SNOMED: 173422350 Qualifiers: Qualified Codes: D64.9 - Anemia, unspecified (2) Thrombocytopenia ICD Codes: D69.6 - Thrombocytopenia, unspecified SNOMED: 865241635 (3) Ascites ICD Codes: R18.8 - Other ascites SNOMED: 630573456 Qualifiers: Qualified Codes: K70.31 - Alcoholic cirrhosis of liver with ascites (4) Elevated lactic acid level ICD Codes: R79.89 - Other specified abnormal findings of blood chemistry SNOMED: 8225657 (5) Anasarca ICD Codes: R60.1 - Generalized edema SNOMED: 317887145, 491814983 (6) Abdominal pain Assessment & Plan: generalized abdominal pain ascites s/p paracentesis elevated lft's CT noted with gb thickening unfortunate patient with significant liver disease no acute surgical intervention necessary. abdominal pain etiology could be gallbladder but distribution of pain not consistent pain likely from ascites does not seem to have sbp or acute abdominal infection abx will monitor with exam ICD Codes: R10.9 - Unspecified abdominal pain SNOMED: 09075556 Qualifiers: Qualified Codes: R10.84 - Generalized abdominal pain (7) Liver cirrhosis Assessment & Plan: very poor surgical candidate ICD Codes: K74.60 - Unspecified cirrhosis of liver SNOMED: 20141741 Qualifiers: Qualified Codes: K70.31 - Alcoholic cirrhosis of liver with ascites (8) Acute metabolic encephalopathy ICD Codes: G93.41 - Metabolic encephalopathy SNOMED: 38228816, 174643076 Efrain Whitaker Mar 12, 2019 17:16
--- NOTE | 2019-03-12 19:30 | NUR ---
HAND-OFF: Report given to Jorje RN. Patient in stable condition.
[2019-03-12 20:00] VITALS: BP 124/76
--- NOTE | 2019-03-12 20:30 | NUR ---
NURSE NOTES: Pt is in bed, verbal. Estonian speaking. Pt reports urinary burning sensation. Dr. Amador was called and received order for UA and culture. Pt's abdomen is distended, hx ascites. Paracentesis site covered with a Band Aid. Bed locked low in position, call light within reach. Pt instructed to call for assistance before getting out of bed. Pt will be monitored.
[2019-03-13] VITALS: BP 119/71
[2019-03-13 04:00] VITALS: BP 121/78
--- NOTE | 2019-03-13 04:27 | NUR ---
NURSE NOTES: Pt is in bed, asleep. No acute distress noted. Pt is instructed to collect urine sample for UA and culture.
[2019-03-13] MEDS: NovoLOG Insulin Flexpen SUBQ SCH ×4 (06:03→21:00)
[2019-03-13] MEDS: Lactulose 20gm/30ml UDC ORAL SCH ×3 (06:05→22:09)
--- NOTE | 2019-03-13 07:15 | General Progress Note ---
Assessment/Plan Assessment/Plan: 1. History of cirrhosis. 2. History of upper GI bleeding from a Dieulafoy lesion in the pylorus. 3. Hypertension. 4. Diabetes type 2. 5. Ascites. lasix aldactone s/p paracentesis neg stool ob lactulose dc planning per primary team Subjective ROS Limited/Unobtainable: Yes Allergies: Coded Allergies: No Known Allergies (Unverified , 01/31/19) Objective Last 24 Hour Vital Signs Date Time Temp Pulse Resp B/P (MAP) Pulse Ox O2 Delivery O2 Flow Rate FiO2 03/13/19 04:00 97.8 80 20 121/78 (92) 96 03/13/19 00:00 98.0 78 20 119/71 (87) 95 03/12/19 21:00 Room Air 03/12/19 20:00 97.5 79 20 124/76 (92) 96 03/12/19 16:00 98.5 80 20 128/68 (88) 97 03/12/19 12:00 97.8 82 18 134/72 (92) 97 03/12/19 09:40 86 154/70 03/12/19 09:00 Room Air 03/12/19 08:00 97.5 86 20 154/70 (98) 98 Intake and Output 03/12/19 03/13/19 19:00 07:00 Intake Total 100 ml Balance 100 ml Intake IV Total 100 ml # Bowel Movements 1 Laboratory Tests 03/12/19 08:25: Ammonia 52H 03/12/19 08:54: Stool Occult Blood Negative Height (Feet): 5 Height (Inches): 0.00 Weight (Pounds): 200 General Appearance: alert EENT: normal ENT inspection Neck: normal alignment Cardiovascular: normal rate Respiratory/Chest: decreased breath sounds Abdomen: soft, hypoactive bowel sounds, distended Extremities: non-tender Jon Torres MD Mar 13, 2019 07:15
--- NOTE | 2019-03-13 07:20 | NUR ---
HAND-OFF: Report given to Walter Jalloh RN.
--- NOTE | 2019-03-13 07:35 | NUR ---
NURSE NOTES: Received report from CHAVA Recinos. Rounding done with outgoing nurse. Pt a/o x4, in bed, Indian speaking. No respiratory distress noted. Denies any pain at this time. IV access is patent. Bed in lowest position, call light within reach. Will continue to monitor.
[2019-03-13 08:00] VITALS: BP 140/74
[2019-03-13] MEDS: Spironolactone 50mg tab ORAL SCH (09:33)
[2019-03-13] MEDS: Ciprofloxacin 500mg tab ORAL SCH ×2 (09:33→22:10)
[2019-03-13 09:47] LABS: HEMATOCRIT 25.7 % (37.0-47.0); HEMOGLOBIN 7.7 G/DL (12.0-16.0); MEAN CORPUSCULAR VOLUME 85 FL (80-99); PLATELET COUNT 71 K/UL (150-450); RED BLOOD COUNT 3.04 M/UL (4.20-5.40); RED CELL DISTRIBUTION WIDTH 18.5 % (11.6-14.8); WHITE BLOOD COUNT 3.3 K/UL (4.8-10.8)
[2019-03-13 09:48] LABS: INR 1.2 (0.9-1.1)
--- NOTE | 2019-03-13 10:24 | Consultation ---
History of Present Illness General Date patient seen: Mar 13, 2019 Chief Complaint: Edema Reason for Consultation: Abd pain Present Illness HPI Ms. Bradford is a 58 yo female with PMHx of HTN, DM, Liver Cirrhosis fro EtOH who presented to the ED on 03/12/19 with abdominal pain. She reported that she has needed paracentesis for ascites in the past. Last time was 1 month ago. She said that she has no N/V/D but that her belly is swelling. In the ED she was afebrile with mild leukopenia. US of Abd showed moderate ascites and some gallbladder wall thickening. She had paracentesis with 4L removed. UA neg. Surgery consulted and felt that symptoms no consistent with acute cholecystitis. She is currently in the CT scanner ID consulted for r/o cholecystitis PMHx/PSHx HTN DM Liver Cirrhosis EtOH abuse SocHx EtOH abuse FamHx Not contributory Allergies: Coded Allergies: No Known Allergies (Unverified , 01/31/19) Medication History Scheduled Amlodipine Besylate* (Amlodipine Besylate*), 5 MG ORAL DAILY, (Reported) Atorvastatin (Lipitor), 40 MG ORAL BEDTIME, (Reported) Ca Carbonate/Vitamin D3/Vit K (Calcium + D Soft Chewable Tab), 1 EACH PO BID, ( Reported) Cholestyramine (Cholestyramine Resin), 5 GM ORAL DAILY, (Reported) Ferrous Sulfate* (Ferrous Sulfate*), 325 MG ORAL DAILY, (Reported) Folic Acid* (Folic Acid*), 1 MG ORAL DAILY, (Reported) Furosemide* (Lasix*), 40 MG ORAL DAILY Furosemide* (Lasix*), 20 MG ORAL DAILY, (Reported) Insulin Glargine (Lantus), 0 SUBQ BEDTIME, (Reported) Lactulose (Lactulose*), 15 GM ORAL Q8HR Losartan Potassium (Losartan Potassium), 100 MG ORAL DAILY, (Reported) Metformin Hcl* (Metformin Hcl*), 1,000 MG ORAL BID, (Reported) Omeprazole (Omeprazole), 20 MG ORAL BID, (Reported) Rifaximin* (Xifaxan*), 550 MG ORAL TWICE A DAY, (Reported) Spironolactone (Aldactone), 50 MG ORAL DAILY Miscellaneous Medications Lactulose (Lactulose*), 30 ML ORAL, (Reported) Patient History Healthcare decision maker Resuscitation status Full Code Advanced Directive on File Review of Systems ROS Narrative Unable to obtain as patient in CT scanner Physical Exam Last 24 Hour Vital Signs Date Time Temp Pulse Resp B/P (MAP) Pulse Ox O2 Delivery O2 Flow Rate FiO2 03/13/19 09:33 76 140/74 03/13/19 08:00 97.7 76 20 140/74 (96) 96 03/13/19 04:00 97.8 80 20 121/78 (92) 96 03/13/19 00:00 98.0 78 20 119/71 (87) 95 03/12/19 21:00 Room Air 03/12/19 20:00 97.5 79 20 124/76 (92) 96 03/12/19 16:00 98.5 80 20 128/68 (88) 97 03/12/19 12:00 97.8 82 18 134/72 (92) 97 Intake and Output 03/12/19 03/13/19 18:59 06:59 Intake Total 100 ml Balance 100 ml Intake IV Total 100 ml # Bowel Movements 1 Laboratory Tests Test 03/13/19 09:20 White Blood Count 3.3 K/UL (4.8-10.8) #L Red Blood Count 3.04 M/UL (4.20-5.40) L Hemoglobin 7.7 G/DL (12.0-16.0) L Hematocrit 25.7 % (37.0-47.0) L Mean Corpuscular Volume 85 FL (80-99) Mean Corpuscular Hemoglobin 25.2 PG (27.0-31.0) L Mean Corpuscular Hemoglobin Concent 29.9 G/DL (32.0-36.0) L Red Cell Distribution Width 18.5 % (11.6-14.8) H Platelet Count 71 K/UL (150-450) L Mean Platelet Volume 7.5 FL (6.5-10.1) Neutrophils (%) (Auto) % (45.0-75.0) Lymphocytes (%) (Auto) % (20.0-45.0) Monocytes (%) (Auto) % (1.0-10.0) Eosinophils (%) (Auto) % (0.0-3.0) Basophils (%) (Auto) % (0.0-2.0) Neutrophils % (Manual) Pending Lymphocytes % (Manual) Pending Platelet Estimate Pending Platelet Morphology Pending Erythrocyte Sedimentation Rate Pending Prothrombin Time 12.7 SEC (9.30-11.50) H Prothromb Time International Ratio 1.2 (0.9-1.1) H Sodium Level Pending Potassium Level Pending Chloride Level Pending Carbon Dioxide Level Pending Blood Urea Nitrogen Pending Creatinine Pending Estimat Glomerular Filtration Rate Pending Glucose Level Pending Calcium Level Pending Phosphorus Level Pending Magnesium Level Pending Total Bilirubin Pending Aspartate Amino Transf (AST/SGOT) Pending Alanine Aminotransferase (ALT/SGPT) Pending Alkaline Phosphatase Pending C-Reactive Protein, Quantitative Pending Total Protein Pending Albumin Pending Globulin Pending Alpha Fetoprotein Pending Height (Feet): 5 Height (Inches): 0.00 Weight (Pounds): 200 Medications Current Medications Medications (Trade) Dose Ordered Sig/Almaz Route PRN Reason Start Time Stop Time Status Last Admin Dose Admin Acetaminophen (Tylenol) 650 mg Q4H PRN ORAL T>100.5 03/11/19 18:15 04/10/19 18:14 Amlodipine Besylate (Norvasc) 5 mg DAILY ORAL 03/12/19 09:00 04/11/19 08:59 03/13/19 09:33 Barium Sulfate (Readi-Cat 2) 450 ml NOW PRN ORAL Radiology Procedure 03/12/19 14:45 03/14/19 14:34 Chlordiazepoxide (Librium) 25 mg Q6H PRN ORAL Agitation 03/12/19 07:30 03/19/19 07:29 Ciprofloxacin (Cipro 500mg tab) 500 mg EVERY 12 HOURS ORAL 03/11/19 19:30 03/18/19 19:29 03/13/19 09:33 Dextrose (Dextrose 50%) 25 ml Q30M PRN IV Hypoglycemia 03/11/19 18:30 04/10/19 18:17 Dextrose (Dextrose 50%) 50 ml Q30M PRN IV hypoglycemia 03/11/19 18:30 04/10/19 18:29 Diphenhydramine HCl (Benadryl) 25 mg Q6H PRN ORAL Itching/Pruritis 03/11/19 18:15 04/10/19 18:14 Folic Acid (Folate) 1 mg DAILY ORAL 03/12/19 09:00 04/11/19 08:59 03/13/19 09:33 Furosemide (Lasix) 40 mg DAILY IV 03/12/19 09:00 04/11/19 08:59 03/13/19 09:33 Insulin Aspart (NovoLOG) BEFORE MEALS AND HS SUBQ 03/11/19 21:00 04/10/19 20:59 03/12/19 22:22 Iopamidol (Isovue-300 100ml) 100 ml NOW PRN INJ Radiology Procedure 03/12/19 14:45 03/13/19 14:44 Lactulose (Cephulac) 20 gm EVERY 8 HOURS ORAL 03/11/19 18:15 04/10/19 18:14 03/13/19 06:05 Metronidazole 100 ml @ 100 mls/hr Q8HR IVPB 03/12/19 22:00 03/19/19 21:59 03/13/19 06:06 Morphine Sulfate (Morphine Sulfate) 2 mg Q4H PRN IVP Severe Pain (Pain Scale 7-10) 03/11/19 18:15 03/18/19 18:14 03/12/19 22:14 Nitroglycerin (Ntg) 0.4 mg Q5M X 3 DOSES PRN SL Prn Chest Pain 03/11/19 18:15 04/10/19 18:14 Ondansetron HCl (Zofran) 4 mg Q6H PRN IVP Nausea & Vomiting 03/11/19 18:15 04/10/19 18:14 Spironolactone (Aldactone) 100 mg DAILY ORAL 03/12/19 09:00 04/11/19 08:59 03/13/19 09:33 Temazepam (Restoril) 15 mg HSPRN PRN ORAL Insomnia 03/11/19 21:00 03/18/19 20:59 03/12/19 22:14 Thiamine HCl 100 mg/Dextrose 56 ml @ 112 mls/hr Q24H IVPB 03/12/19 11:00 04/11/19 10:59 03/12/19 11:32 Objective Narrative Unable to obtain as patient in CT scanner Assessment/Plan Assessment/Plan: Ms. Bradford is a 58 yo female with PMHx of HTN, DM, Liver Cirrhosis fro EtOH who presented to the ED on 03/12/19 with abdominal pain. Abdominal pain Likely from ascities less likely from any infection Agree with surgery that not typical presentation for acute cholecystitis Afebrile No leukocytosis HTN DM Liver Cirrhosis EtOH abuse PLAN - f/u CT scan results - Continue Cipro and flagyl until after CT read - f/u cultures - Monitor CBC and Temps Thank you for this consult Vincent Edward MD Mar 13, 2019 10:24
[2019-03-13 10:30] LABS: ALANINE AMINOTRANSFERASE 12 U/L (12-78); ALBUMIN 1.8 G/DL (3.4-5.0); ALBUMIN/GLOBULIN RATIO 0.4 (1.0-2.7); ALKALINE PHOSPHATASE 211 U/L (46-116); ANION GAP 8 mmol/L (5-15); ASPARTATE AMINO TRANSFERASE 30 U/L (15-37); BILIRUBIN,TOTAL 1.4 MG/DL (0.2-1.0); BLOOD UREA NITROGEN 11 mg/dL (7-18); CALCIUM 8.2 MG/DL (8.5-10.1); CARBON DIOXIDE 24 MMOL/L (21-32); CHLORIDE 106 MMOL/L (98-107); CREATININE 1.2 MG/DL (0.55-1.30); PHOSPHORUS 3.1 MG/DL (2.5-4.9); POTASSIUM 4.1 MMOL/L (3.5-5.1); SODIUM 138 MMOL/L (136-145)
[2019-03-13 10:31] LABS: BILIRUBIN,DIRECT 0.7 MG/DL (0.0-0.3)
--- NOTE | 2019-03-13 11:09 | NUR ---
NURSE NOTES: Hgb 7.[address] Amador and left the message.
[2019-03-13 12:00] VITALS: BP 137/78
[2019-03-13] MEDS: Thiamine HCl 100 MG in D5W 55 ML IVPB SCH (12:08)
--- NOTE | 2019-03-13 12:12 | NUR ---
NURSE NOTES: Dr. Amador is aware regarding Hgb 7.7 today. No new order.
--- NOTE | 2019-03-13 13:08 | Surgery Progress Note ---
Surgery Progress Note Subjective Additional Comments no acute events labs improved exam stable c/o abdominal pain but exam benign Objective Last 24 Hour Vital Signs Date Time Temp Pulse Resp B/P (MAP) Pulse Ox O2 Delivery O2 Flow Rate FiO2 03/13/19 09:33 76 140/74 03/13/19 09:00 Room Air 03/13/19 08:00 97.7 76 20 140/74 (96) 96 03/13/19 04:00 97.8 80 20 121/78 (92) 96 03/13/19 00:00 98.0 78 20 119/71 (87) 95 03/12/19 21:00 Room Air 03/12/19 20:00 97.5 79 20 124/76 (92) 96 03/12/19 16:00 98.5 80 20 128/68 (88) 97 I&O Intake and Output 03/12/19 03/13/19 18:59 06:59 Intake Total 100 ml Balance 100 ml Intake IV Total 100 ml # Bowel Movements 1 Cardiovascular: RSR Respiratory: clear Abdomen: soft, distended - fluid, non-tender, present bowel sounds Extremities: no cyanosis, other Laboratory Tests Test 03/13/19 09:20 White Blood Count 3.3 K/UL (4.8-10.8) #L Red Blood Count 3.04 M/UL (4.20-5.40) L Hemoglobin 7.7 G/DL (12.0-16.0) L Hematocrit 25.7 % (37.0-47.0) L Mean Corpuscular Volume 85 FL (80-99) Mean Corpuscular Hemoglobin 25.2 PG (27.0-31.0) L Mean Corpuscular Hemoglobin Concent 29.9 G/DL (32.0-36.0) L Red Cell Distribution Width 18.5 % (11.6-14.8) H Platelet Count 71 K/UL (150-450) L Mean Platelet Volume 7.5 FL (6.5-10.1) Neutrophils (%) (Auto) % (45.0-75.0) Lymphocytes (%) (Auto) % (20.0-45.0) Monocytes (%) (Auto) % (1.0-10.0) Eosinophils (%) (Auto) % (0.0-3.0) Basophils (%) (Auto) % (0.0-2.0) Differential Total Cells Counted 100 Neutrophils % (Manual) 72 % (45-75) Lymphocytes % (Manual) 21 % (20-45) Monocytes % (Manual) 4 % (1-10) Eosinophils % (Manual) 3 % (0-3) Basophils % (Manual) 0 % (0-2) Band Neutrophils 0 % (0-8) Platelet Estimate Decreased L Platelet Morphology Normal Hypochromasia 1+ Anisocytosis 1+ Erythrocyte Sedimentation Rate 83 MM/HR (0-30) H Prothrombin Time 12.7 SEC (9.30-11.50) H Prothromb Time International Ratio 1.2 (0.9-1.1) H Sodium Level 138 MMOL/L (136-145) Potassium Level 4.1 MMOL/L (3.5-5.1) Chloride Level 106 MMOL/L (98-107) Carbon Dioxide Level 24 MMOL/L (21-32) Anion Gap 8 mmol/L (5-15) Blood Urea Nitrogen 11 mg/dL (7-18) Creatinine 1.2 MG/DL (0.55-1.30) Estimat Glomerular Filtration Rate 46.3 mL/min (>60) Glucose Level 123 MG/DL (74-106) H Calcium Level 8.2 MG/DL (8.5-10.1) L Phosphorus Level 3.1 MG/DL (2.5-4.9) Magnesium Level 1.8 MG/DL (1.8-2.4) Total Bilirubin 1.4 MG/DL (0.2-1.0) H Direct Bilirubin 0.7 MG/DL (0.0-0.3) H Aspartate Amino Transf (AST/SGOT) 30 U/L (15-37) Alanine Aminotransferase (ALT/SGPT) 12 U/L (12-78) Alkaline Phosphatase 211 U/L (46-116) H C-Reactive Protein, Quantitative 4.5 mg/dL (0.00-0.90) H Total Protein 5.9 G/DL (6.4-8.2) L Albumin 1.8 G/DL (3.4-5.0) L Globulin 4.1 g/dL Albumin/Globulin Ratio 0.4 (1.0-2.7) L Alpha Fetoprotein Pending Plan Problems: (1) Anemia (2) Thrombocytopenia (3) Ascites (4) Elevated lactic acid level (5) Anasarca (6) Abdominal pain Assessment & Plan: generalized abdominal pain ascites s/p paracentesis elevated lft's US noted with gb thickening unfortunate patient with significant liver disease no acute surgical intervention necessary. abdominal pain etiology could be gallbladder but distribution of pain not consistent pain likely from ascites does not seem to have sbp or acute abdominal infection labs improved exam stable d/c planning will monitor with exam (7) Liver cirrhosis Assessment & Plan: very poor surgical candidate (8) Acute metabolic encephalopathy Efrain Whitaker Mar 13, 2019 13:08
[2019-03-13] MEDS: Morphine Sulfate 2mg/ml Inj(IV/IM USE ONLY) IVP PRN ×3 (13:17→22:11)
[2019-03-13 16:00] VITALS: BP 129/70
--- NOTE | 2019-03-13 19:26 | NUR ---
HAND-OFF: Report given to CHAVA Recinos.
--- NOTE | 2019-03-13 19:40 | NUR ---
NURSE NOTES: Pt is in bed, awake and alert. British speaking. Pt still complains of lower abdominal pain, abdomen is slightly distended. Pain medication will be given as ordered PRN. ABD Ct scan result pending. Pt is walking with walker to bathroom. Bed locked low in position,side rails up and call light within reach. Pt instructed to call for assistance.
[2019-03-13 20:00] VITALS: BP 127/68
--- NOTE | 2019-03-13 21:44 | Internal Med Progress Note ---
Subjective Physician Name Goldy Amador Attending Physician Goldy Amador MD Current Medications Medications (Trade) Dose Ordered Sig/Almaz Route PRN Reason Start Time Stop Time Status Last Admin Dose Admin Acetaminophen (Tylenol) 650 mg Q4H PRN ORAL T>100.5 03/11/19 18:15 04/10/19 18:14 Amlodipine Besylate (Norvasc) 5 mg DAILY ORAL 03/12/19 09:00 04/11/19 08:59 03/13/19 09:33 Barium Sulfate (Readi-Cat 2) 450 ml NOW PRN ORAL Radiology Procedure 03/12/19 14:45 03/14/19 14:34 Chlordiazepoxide (Librium) 25 mg Q6H PRN ORAL Agitation 03/12/19 07:30 03/19/19 07:29 Ciprofloxacin (Cipro 500mg tab) 500 mg EVERY 12 HOURS ORAL 03/11/19 19:30 03/18/19 19:29 03/13/19 09:33 Dextrose (Dextrose 50%) 25 ml Q30M PRN IV Hypoglycemia 03/11/19 18:30 04/10/19 18:17 Dextrose (Dextrose 50%) 50 ml Q30M PRN IV hypoglycemia 03/11/19 18:30 04/10/19 18:29 Diphenhydramine HCl (Benadryl) 25 mg Q6H PRN ORAL Itching/Pruritis 03/11/19 18:15 04/10/19 18:14 Folic Acid (Folate) 1 mg DAILY ORAL 03/12/19 09:00 04/11/19 08:59 03/13/19 09:33 Furosemide (Lasix) 40 mg DAILY IV 03/12/19 09:00 04/11/19 08:59 03/13/19 09:33 Insulin Aspart (NovoLOG) BEFORE MEALS AND HS SUBQ 03/11/19 21:00 04/10/19 20:59 03/13/19 13:09 Lactulose (Cephulac) 20 gm EVERY 8 HOURS ORAL 03/11/19 18:15 04/10/19 18:14 03/13/19 13:08 Metronidazole 100 ml @ 100 mls/hr Q8HR IVPB 03/12/19 22:00 03/19/19 21:59 03/13/19 13:08 Morphine Sulfate (Morphine Sulfate) 2 mg Q4H PRN IVP Severe Pain (Pain Scale 7-10) 03/11/19 18:15 03/18/19 18:14 03/13/19 17:35 Nitroglycerin (Ntg) 0.4 mg Q5M X 3 DOSES PRN SL Prn Chest Pain 03/11/19 18:15 04/10/19 18:14 Ondansetron HCl (Zofran) 4 mg Q6H PRN IVP Nausea & Vomiting 03/11/19 18:15 04/10/19 18:14 Spironolactone (Aldactone) 100 mg DAILY ORAL 03/12/19 09:00 04/11/19 08:59 03/13/19 09:33 Temazepam (Restoril) 15 mg HSPRN PRN ORAL Insomnia 03/11/19 21:00 03/18/19 20:59 03/12/19 22:14 Thiamine HCl 100 mg/Dextrose 56 ml @ 112 mls/hr Q24H IVPB 03/12/19 11:00 04/11/19 10:59 03/13/19 12:08 Allergies: Coded Allergies: No Known Allergies (Unverified , 01/31/19) Subjective Awake, alert, responsive, complaining about lessen lower abdominal pain, denies any nausea or vomiting. Objective Last Vital Signs Date Time Temp Pulse Resp B/P (MAP) Pulse Ox O2 Delivery O2 Flow Rate FiO2 03/13/19 20:00 97.6 83 20 127/68 (87) 98 03/13/19 09:00 Room Air Laboratory Tests Test 03/13/19 09:20 White Blood Count 3.3 K/UL (4.8-10.8) #L Red Blood Count 3.04 M/UL (4.20-5.40) L Hemoglobin 7.7 G/DL (12.0-16.0) L Hematocrit 25.7 % (37.0-47.0) L Mean Corpuscular Volume 85 FL (80-99) Mean Corpuscular Hemoglobin 25.2 PG (27.0-31.0) L Mean Corpuscular Hemoglobin Concent 29.9 G/DL (32.0-36.0) L Red Cell Distribution Width 18.5 % (11.6-14.8) H Platelet Count 71 K/UL (150-450) L Mean Platelet Volume 7.5 FL (6.5-10.1) Neutrophils (%) (Auto) % (45.0-75.0) Lymphocytes (%) (Auto) % (20.0-45.0) Monocytes (%) (Auto) % (1.0-10.0) Eosinophils (%) (Auto) % (0.0-3.0) Basophils (%) (Auto) % (0.0-2.0) Differential Total Cells Counted 100 Neutrophils % (Manual) 72 % (45-75) Lymphocytes % (Manual) 21 % (20-45) Monocytes % (Manual) 4 % (1-10) Eosinophils % (Manual) 3 % (0-3) Basophils % (Manual) 0 % (0-2) Band Neutrophils 0 % (0-8) Platelet Estimate Decreased L Platelet Morphology Normal Hypochromasia 1+ Anisocytosis 1+ Erythrocyte Sedimentation Rate 83 MM/HR (0-30) H Prothrombin Time 12.7 SEC (9.30-11.50) H Prothromb Time International Ratio 1.2 (0.9-1.1) H Sodium Level 138 MMOL/L (136-145) Potassium Level 4.1 MMOL/L (3.5-5.1) Chloride Level 106 MMOL/L (98-107) Carbon Dioxide Level 24 MMOL/L (21-32) Anion Gap 8 mmol/L (5-15) Blood Urea Nitrogen 11 mg/dL (7-18) Creatinine 1.2 MG/DL (0.55-1.30) Estimat Glomerular Filtration Rate 46.3 mL/min (>60) Glucose Level 123 MG/DL (74-106) H Calcium Level 8.2 MG/DL (8.5-10.1) L Phosphorus Level 3.1 MG/DL (2.5-4.9) Magnesium Level 1.8 MG/DL (1.8-2.4) Total Bilirubin 1.4 MG/DL (0.2-1.0) H Direct Bilirubin 0.7 MG/DL (0.0-0.3) H Aspartate Amino Transf (AST/SGOT) 30 U/L (15-37) Alanine Aminotransferase (ALT/SGPT) 12 U/L (12-78) Alkaline Phosphatase 211 U/L (46-116) H C-Reactive Protein, Quantitative 4.5 mg/dL (0.00-0.90) H Total Protein 5.9 G/DL (6.4-8.2) L Albumin 1.8 G/DL (3.4-5.0) L Globulin 4.1 g/dL Albumin/Globulin Ratio 0.4 (1.0-2.7) L Alpha Fetoprotein Pending Microbiology Date/Time Source Procedure Growth Status 03/11/19 16:30 Nasal Nares MRSA Culture - Final NO METHICILLIN RESISTANT STAPH AUREUS... Complete 03/11/19 16:30 Rectum VRE Culture - Final NO VANCOMYCIN RESISTANT ENTEROCOCCUS ... Complete Intake and Output 03/12/19 03/13/19 19:00 07:00 Intake Total 100 ml Balance 100 ml IV Total 100 ml # Bowel Movements 1 Objective GENERAL: The patient is awake, responsive, in no acute distress. HEAD AND NECK: Pupils are equal and reactive to light. Extraocular movements intact. Neck was supple. No JVD. LUNGS: Good air entry. No wheezes or rhonchi. Decreased air in the bases. HEART: S1, S2. Regular rate and rhythm with a systolic ejection murmur. ABDOMEN: Soft, distended. Fluid shift. Morbidly obese. lower abdominal tender. No rebound tenderness. EXTREMITIES: No cyanosis or clubbing. +2 edema in bilateral lower extremities. NEUROLOGIC: Cranial nerves II through XII are grossly intact. Motor is 5/5 and symmetric. Gait is intact. RECTAL: Refused and deferred. Assessment/Plan Assessment/Plan ASSESSMENT: 1. Ascites. 2. Abdominal pain, most likely secondary to ascites. 3. Alcohol abuse with alcoholism. 4. History of prior GI bleed due to the Dieulafoy lesion in the peripyloric region. 5. Pancytopenia. 6. Diabetes type 2. 7. Hypertension. 8. Morbid obesity. 9. Anasarca with fluid overload. 10. Hepatic encephalopathy. 11. Lactic acidosis. 12. Gallbladder wall thickening R/O Acute cholecystitis. PLAN: In medical floor. Follow up laboratory. ultrasound of abdomen noted. Follow up with Dr. Torres from Gastroenterology and Dr. Khan, Pulmonary/ Critical Care. Code status, Full Code. DVT prophylaxis, SCD. We will follow up with cultures. Broad-spectrum antibiotic: Cipro and Flagyl CT scan of the abdomen and pelvic. Surgical consultation noted. US Abdomen: Impression: Chronic liver disease/cirrhosis with stigmata of portal hypertension including moderate ascites and splenomegaly. Gallstones with gallbladder wall thickening. Correlate for cholecystitis. Goldy Amador MD Mar 13, 2019 21:44
[2019-03-14] VITALS: BP 123/72
[2019-03-14 04:00] VITALS: BP 131/76
--- NOTE | 2019-03-14 04:09 | NUR ---
NURSE NOTES: Pt is in bed, asleep. No acute distress noted.
[2019-03-14] MEDS: NovoLOG Insulin Flexpen SUBQ SCH ×3 (05:30→16:30)
[2019-03-14] MEDS: Lactulose 20gm/30ml UDC ORAL SCH ×2 (05:34→14:00)
[2019-03-14] MEDS: Morphine Sulfate 2mg/ml Inj(IV/IM USE ONLY) IVP PRN (05:35)
--- NOTE | 2019-03-14 07:15 | NUR ---
HAND-OFF: Report given to CHAVA Montez. Addendum: 03/14/19 at 0754 by SREE HAMMER RN RN Disregard above note. Report actually given to Walter Jalloh RN
--- NOTE | 2019-03-14 07:36 | NUR ---
NURSE NOTES: Received report from CHAVA Recinos. Pt a/o x 4, in bed. No distress noted, Denies any pain, IV R wrist is patent. Bed in lowest position and locked, Call light within reach. Will continue to monitor.
[2019-03-14 08:00] VITALS: BP 134/78
[2019-03-14 08:00] LABS: HEMOGLOBIN 8.4 G/DL (12.0-16.0); MEAN CORPUSCULAR VOLUME 85 FL (80-99); PLATELET COUNT 82 K/UL (150-450); RED BLOOD COUNT 3.31 M/UL (4.20-5.40); RED CELL DISTRIBUTION WIDTH 18.7 % (11.6-14.8); WHITE BLOOD COUNT 3.2 K/UL (4.8-10.8)
[2019-03-14 08:26] LABS: AMMONIA 47 umol/L (11-32)
[2019-03-14 08:30] LABS: ALANINE AMINOTRANSFERASE 13 U/L (12-78); ALBUMIN/GLOBULIN RATIO 0.5 (1.0-2.7); ALKALINE PHOSPHATASE 226 U/L (46-116); ANION GAP 8 mmol/L (5-15); ASPARTATE AMINO TRANSFERASE 31 U/L (15-37); BILIRUBIN,TOTAL 1.3 MG/DL (0.2-1.0); BLOOD UREA NITROGEN 11 mg/dL (7-18); CALCIUM 8.4 MG/DL (8.5-10.1); CARBON DIOXIDE 25 MMOL/L (21-32); CHLORIDE 102 MMOL/L (98-107); CREATININE 1.2 MG/DL (0.55-1.30); POTASSIUM 3.4 MMOL/L (3.5-5.1); SODIUM 135 MMOL/L (136-145)
[2019-03-14 08:33] LABS: BILIRUBIN,DIRECT 0.6 MG/DL (0.0-0.3)
--- NOTE | 2019-03-14 08:47 | Diagnostic Imaging Report ---
Clinical Indication: Abdominal pain Technique: Patient ingested a limited amount of enteric contrast IV administration nonionic contrast. Venous phase spiral acquisition obtained through the abdomen and pelvis. Multiplanar reconstructions were generated. Total dose length product 1111.87 mGycm. CTDIvol(s) 19.51 mGy. Dose reduction achieved using automated exposure control Comparison: none. Reference made to abdominal sonogram 03/11/2019 Findings: Moderate retained stool is seen in the distal colon. There is no evidence of diverticulosis or diverticulitis. The appendix is not visualized, but no findings to suggest acute appendicitis are evident. Contrast has traversed the entirety of the small bowel, reaching as far distally as the transverse colon. No small bowel distention or small bowel wall thickening demonstrated. Distal esophagus, stomach, duodenum are unremarkable. No free intraperitoneal gas The liver is diffusely atrophic with marked surface nodularity. There is a moderate amount of ascites fluid. The spleen is enlarged, measuring 20 cm long axis dimension. There is an accessory splenule. Spleen demonstrates a subtle low-attenuation area peripherally which could represent an infarct There are spontaneous splenorenal shunt type varices noted. There are also perigastric and small periesophageal varices. No focal liver lesions. The gallbladder contains multiple gallstones. No biliary ductal dilatation. The pancreas is atrophic. The adrenals and kidneys are unremarkable. No retroperitoneal or mesenteric mass or adenopathy. No pelvic mass or adenopathy. Unremarkable uterus and adnexal structures except for small uterine myometrial calcifications. Bladder is unremarkable. There is edema of the bilateral flank subcutaneous fat. The heart is mildly enlarged. The included lung bases demonstrate mild groundglass opacity. The bones are unremarkable. Impression: No definite acute abnormality Atrophic liver with surface nodularity, consistent with cirrhotic change Evidence of portal hypertension, with ascites, splenomegaly, and varices as described Subtle peripheral wedge-shaped area of low-attenuation in the spleen, could represent an infarct Cholelithiasis Edema of the bilateral flank subcutaneous fat Mild cardiomegaly Basilar pulmonary parenchymal groundglass opacity, may reflect compressive atelectatic changes, mild pulmonary edema, among other possibilities Incidental findings as noted, including uterine myometrial calcifications, accessory splenule This agrees with the preliminary interpretation provided overnight by [employer] teleradiology service. The CT scanner at [facility] is accredited by the [employer] and the scans are performed using protocols designed to limit radiation exposure to as low as reasonably achievable to attain images of sufficient resolution adequate for diagnostic evaluation.
[2019-03-14] MEDS: Spironolactone 50mg tab ORAL SCH (09:29)
[2019-03-14] MEDS: Ciprofloxacin 500mg tab ORAL SCH (09:29)
--- NOTE | 2019-03-14 10:59 | GI Progress Note ---
Assessment/Plan Problems: (1) Liver cirrhosis ICD Codes: K74.60 - Unspecified cirrhosis of liver SNOMED: 58409862 Qualifiers: Qualified Codes: K70.31 - Alcoholic cirrhosis of liver with ascites (2) Abdominal pain ICD Codes: R10.9 - Unspecified abdominal pain SNOMED: 81361861 Qualifiers: Qualified Codes: R10.84 - Generalized abdominal pain (3) Anasarca ICD Codes: R60.1 - Generalized edema SNOMED: 851327857, 812344021 (4) Ascites ICD Codes: R18.8 - Other ascites SNOMED: 952826286 Qualifiers: Qualified Codes: K70.31 - Alcoholic cirrhosis of liver with ascites (5) Anemia ICD Codes: D64.9 - Anemia, unspecified SNOMED: 537839734 Qualifiers: Qualified Codes: D64.9 - Anemia, unspecified (6) Thrombocytopenia ICD Codes: D69.6 - Thrombocytopenia, unspecified SNOMED: 688735771 (7) ETOH abuse ICD Codes: F10.10 - Alcohol abuse, uncomplicated SNOMED: 11048230 Status: unchanged Status Narrative Discussed with Dr. Torres. Assessment/Plan 1. History of cirrhosis. 2. History of upper GI bleeding from a Dieulafoy lesion in the pylorus. 3. Hypertension. 4. Diabetes type 2. 5. Ascites. lasix Aldactone s/p paracentesis, will repeat today neg stool ob lactulose dc planning per primary team The patient was seen and examined at bedside and all new and available data was reviewed in the patients chart. I agree with the above findings, impression and plan. (Patient seen earlier today. Signature stamp does not reflect patient encounter time.). - Jon Torres MD Subjective Subjective Abdominal distention, abdominal pain and discomfort Objective Last 24 Hour Vital Signs Date Time Temp Pulse Resp B/P (MAP) Pulse Ox O2 Delivery O2 Flow Rate FiO2 03/14/19 09:29 80 134/78 03/14/19 09:00 Room Air 03/14/19 08:00 97.9 80 19 134/78 (96) 99 03/14/19 04:00 97.8 81 20 131/76 (94) 98 03/14/19 00:00 97.4 83 20 123/72 (89) 98 03/13/19 21:00 Room Air 03/13/19 20:00 97.6 83 20 127/68 (87) 98 03/13/19 16:00 97.9 76 20 129/70 (89) 96 03/13/19 12:00 97.3 86 18 137/78 (97) 99 Intake and Output 03/13/19 03/14/19 19:00 07:00 Intake Total 556 ml 560 ml Balance 556 ml 560 ml Intake Oral 300 ml 460 ml IV Total 256 ml 100 ml # Voids 1 2 Laboratory Tests Test 03/14/19 05:52 White Blood Count 3.2 K/UL (4.8-10.8) L Red Blood Count 3.31 M/UL (4.20-5.40) L Hemoglobin 8.4 G/DL (12.0-16.0) L Hematocrit 28.0 % (37.0-47.0) L Mean Corpuscular Volume 85 FL (80-99) Mean Corpuscular Hemoglobin 25.5 PG (27.0-31.0) L Mean Corpuscular Hemoglobin Concent 30.1 G/DL (32.0-36.0) L Red Cell Distribution Width 18.7 % (11.6-14.8) H Platelet Count 82 K/UL (150-450) L Mean Platelet Volume 8.0 FL (6.5-10.1) Neutrophils (%) (Auto) % (45.0-75.0) Lymphocytes (%) (Auto) % (20.0-45.0) Monocytes (%) (Auto) % (1.0-10.0) Eosinophils (%) (Auto) % (0.0-3.0) Basophils (%) (Auto) % (0.0-2.0) Neutrophils % (Manual) Pending Lymphocytes % (Manual) Pending Platelet Estimate Pending Platelet Morphology Pending Sodium Level 135 MMOL/L (136-145) L Potassium Level 3.4 MMOL/L (3.5-5.1) L Chloride Level 102 MMOL/L (98-107) Carbon Dioxide Level 25 MMOL/L (21-32) Anion Gap 8 mmol/L (5-15) Blood Urea Nitrogen 11 mg/dL (7-18) Creatinine 1.2 MG/DL (0.55-1.30) Estimat Glomerular Filtration Rate 46.3 mL/min (>60) Glucose Level 100 MG/DL (74-106) Calcium Level 8.4 MG/DL (8.5-10.1) L Total Bilirubin 1.3 MG/DL (0.2-1.0) H Direct Bilirubin 0.6 MG/DL (0.0-0.3) H Aspartate Amino Transf (AST/SGOT) 31 U/L (15-37) Alanine Aminotransferase (ALT/SGPT) 13 U/L (12-78) Alkaline Phosphatase 226 U/L (46-116) H Ammonia 47 umol/L (11-32) H Total Protein 6.4 G/DL (6.4-8.2) Albumin 2.0 G/DL (3.4-5.0) L Globulin 4.4 g/dL Albumin/Globulin Ratio 0.5 (1.0-2.7) L Microbiology Date/Time Source Procedure Growth Status 03/13/19 16:35 Urine,Clean Catch Urine Culture - Preliminary NO GROWTH Resulted Height (Feet): 5 Height (Inches): 0.00 Weight (Pounds): 200 General Appearance: WD/WN, no apparent distress, alert Cardiovascular: normal rate Respiratory/Chest: normal breath sounds, no respiratory distress Abdominal Exam: normal bowel sounds, non tender, soft Extremities: normal range of motion, non-tender Indu Lane NP Mar 14, 2019 10:59
[2019-03-14] MEDS: Thiamine HCl 100 MG in D5W 55 ML IVPB SCH (11:01)
--- NOTE | 2019-03-14 11:12 | Surgery Progress Note ---
Surgery Progress Note Subjective Additional Comments no acute events more comfortable today tolerating diet ambulatory labs noted and improved CT reviewed Objective Last 24 Hour Vital Signs Date Time Temp Pulse Resp B/P (MAP) Pulse Ox O2 Delivery O2 Flow Rate FiO2 03/14/19 09:29 80 134/78 03/14/19 09:00 Room Air 03/14/19 08:00 97.9 80 19 134/78 (96) 99 03/14/19 04:00 97.8 81 20 131/76 (94) 98 03/14/19 00:00 97.4 83 20 123/72 (89) 98 03/13/19 21:00 Room Air 03/13/19 20:00 97.6 83 20 127/68 (87) 98 03/13/19 16:00 97.9 76 20 129/70 (89) 96 03/13/19 12:00 97.3 86 18 137/78 (97) 99 I&O Intake and Output 03/13/19 03/14/19 19:00 07:00 Intake Total 556 ml 560 ml Balance 556 ml 560 ml Intake Oral 300 ml 460 ml IV Total 256 ml 100 ml # Voids 1 2 Cardiovascular: RSR Respiratory: clear Abdomen: soft, distended, tenderness, present bowel sounds Extremities: no tenderness, no cyanosis Laboratory Tests Test 03/14/19 05:52 White Blood Count 3.2 K/UL (4.8-10.8) L Red Blood Count 3.31 M/UL (4.20-5.40) L Hemoglobin 8.4 G/DL (12.0-16.0) L Hematocrit 28.0 % (37.0-47.0) L Mean Corpuscular Volume 85 FL (80-99) Mean Corpuscular Hemoglobin 25.5 PG (27.0-31.0) L Mean Corpuscular Hemoglobin Concent 30.1 G/DL (32.0-36.0) L Red Cell Distribution Width 18.7 % (11.6-14.8) H Platelet Count 82 K/UL (150-450) L Mean Platelet Volume 8.0 FL (6.5-10.1) Neutrophils (%) (Auto) % (45.0-75.0) Lymphocytes (%) (Auto) % (20.0-45.0) Monocytes (%) (Auto) % (1.0-10.0) Eosinophils (%) (Auto) % (0.0-3.0) Basophils (%) (Auto) % (0.0-2.0) Neutrophils % (Manual) Pending Lymphocytes % (Manual) Pending Platelet Estimate Pending Platelet Morphology Pending Sodium Level 135 MMOL/L (136-145) L Potassium Level 3.4 MMOL/L (3.5-5.1) L Chloride Level 102 MMOL/L (98-107) Carbon Dioxide Level 25 MMOL/L (21-32) Anion Gap 8 mmol/L (5-15) Blood Urea Nitrogen 11 mg/dL (7-18) Creatinine 1.2 MG/DL (0.55-1.30) Estimat Glomerular Filtration Rate 46.3 mL/min (>60) Glucose Level 100 MG/DL (74-106) Calcium Level 8.4 MG/DL (8.5-10.1) L Total Bilirubin 1.3 MG/DL (0.2-1.0) H Direct Bilirubin 0.6 MG/DL (0.0-0.3) H Aspartate Amino Transf (AST/SGOT) 31 U/L (15-37) Alanine Aminotransferase (ALT/SGPT) 13 U/L (12-78) Alkaline Phosphatase 226 U/L (46-116) H Ammonia 47 umol/L (11-32) H Total Protein 6.4 G/DL (6.4-8.2) Albumin 2.0 G/DL (3.4-5.0) L Globulin 4.4 g/dL Albumin/Globulin Ratio 0.5 (1.0-2.7) L Plan Problems: (1) Anemia (2) Thrombocytopenia (3) Ascites (4) Elevated lactic acid level (5) Anasarca (6) Abdominal pain Assessment & Plan: generalized abdominal pain ascites s/p paracentesis elevated lft's US noted with gb thickening CT noted as below unfortunate patient with significant liver disease no acute surgical intervention necessary. abdominal pain etiology could be gallbladder but distribution of pain not consistent pain likely from ascites does not seem to have sbp or acute abdominal infection labs improved exam stable d/c planning will monitor with exam (7) Liver cirrhosis Assessment & Plan: very poor surgical candidate Impression: No definite acute abnormality Atrophic liver with surface nodularity, consistent with cirrhotic change Evidence of portal hypertension, with ascites, splenomegaly, and varices as described Subtle peripheral wedge-shaped area of low-attenuation in the spleen, could represent an infarct Cholelithiasis Edema of the bilateral flank subcutaneous fat Mild cardiomegaly Basilar pulmonary parenchymal groundglass opacity, may reflect compressive atelectatic changes, mild pulmonary edema, among other possibilities Incidental findings as noted, including uterine myometrial calcifications, accessory splenule (8) Acute metabolic encephalopathy Efrain Whitaker Mar 14, 2019 11:12
[2019-03-14 12:00] VITALS: BP 122/75
--- NOTE | 2019-03-14 12:03 | Pulmonology Progress Note ---
Assessment/Plan Problems: (1) Acute metabolic encephalopathy (2) Ascites (3) Abdominal pain (4) Liver cirrhosis (5) ETOH abuse (6) Anasarca (7) Anemia (8) Thrombocytopenia Assessment/Plan anther paracentesis is ordered symptomatic treatment pt is in denial about her prognosis, she thinks somebody is going to give her a liver transplant, while she continues to drink. Subjective ROS Limited/Unobtainable: No Constitutional: Reports: no symptoms HEENT: Repors: no symptoms Allergies: Coded Allergies: No Known Allergies (Unverified , 01/31/19) Objective Last 24 Hour Vital Signs Date Time Temp Pulse Resp B/P (MAP) Pulse Ox O2 Delivery O2 Flow Rate FiO2 03/14/19 09:29 80 134/78 03/14/19 09:00 Room Air 03/14/19 08:00 97.9 80 19 134/78 (96) 99 03/14/19 04:00 97.8 81 20 131/76 (94) 98 03/14/19 00:00 97.4 83 20 123/72 (89) 98 03/13/19 21:00 Room Air 03/13/19 20:00 97.6 83 20 127/68 (87) 98 03/13/19 16:00 97.9 76 20 129/70 (89) 96 Intake and Output 03/13/19 03/14/19 19:00 07:00 Intake Total 556 ml 560 ml Balance 556 ml 560 ml Intake Oral 300 ml 460 ml IV Total 256 ml 100 ml # Voids 1 2 General Appearance: WD/WN HEENT: normocephalic Respiratory/Chest: chest wall non-tender, lungs clear Cardiovascular: normal peripheral pulses, normal rate Abdomen: normal bowel sounds, no organomegaly Genitourinary: normal external genitalia Skin: no rash Microbiology Date/Time Source Procedure Growth Status 03/11/19 16:30 Nasal Nares MRSA Culture - Final NO METHICILLIN RESISTANT STAPH AUREUS... Complete 03/13/19 16:35 Urine,Clean Catch Urine Culture - Preliminary NO GROWTH Resulted 03/11/19 16:30 Rectum VRE Culture - Final NO VANCOMYCIN RESISTANT ENTEROCOCCUS ... Complete 03/11/19 16:30 Rectum - Final NO CARBAPENEM-RESISTANT ENTEROBACTERI... Complete Laboratory Tests 03/14/19 05:52: White Blood Count 3.2L, Red Blood Count 3.31L, Hemoglobin 8.4L, Hematocrit 28.0L , Mean Corpuscular Volume 85, Mean Corpuscular Hemoglobin 25.5L, Mean Corpuscular Hemoglobin Concent 30.1L, Red Cell Distribution Width 18.7H, Platelet Count 82L, Mean Platelet Volume 8.0, Neutrophils (%) (Auto) , Lymphocytes (%) (Auto) , Monocytes (%) (Auto) , Eosinophils (%) (Auto) , Basophils (%) (Auto) , Neutrophils % (Manual) [Pending], Lymphocytes % (Manual) [Pending], Platelet Estimate [Pending], Platelet Morphology [Pending], Sodium Level 135L, Potassium Level 3.4L, Chloride Level 102, Carbon Dioxide Level 25, Anion Gap 8, Blood Urea Nitrogen 11, Creatinine 1.2, Estimat Glomerular Filtration Rate 46.3, Glucose Level 100, Calcium Level 8.4L, Total Bilirubin 1.3H, Direct Bilirubin 0.6H, Aspartate Amino Transf (AST/SGOT) 31, Alanine Aminotransferase (ALT/SGPT) 13, Alkaline Phosphatase 226H, Ammonia 47H, Total Protein 6.4, Albumin 2.0L, Globulin 4.4, Albumin/Globulin Ratio 0.5L Current Medications Medications (Trade) Dose Ordered Sig/Almaz Route PRN Reason Start Time Stop Time Status Last Admin Dose Admin Acetaminophen (Tylenol) 650 mg Q4H PRN ORAL T>100.5 03/11/19 18:15 04/10/19 18:14 Amlodipine Besylate (Norvasc) 5 mg DAILY ORAL 03/12/19 09:00 04/11/19 08:59 03/14/19 09:29 Barium Sulfate (Readi-Cat 2) 450 ml NOW PRN ORAL Radiology Procedure 03/12/19 14:45 03/14/19 14:34 Chlordiazepoxide (Librium) 25 mg Q6H PRN ORAL Agitation 03/12/19 07:30 03/19/19 07:29 Ciprofloxacin (Cipro 500mg tab) 500 mg EVERY 12 HOURS ORAL 03/11/19 19:30 03/18/19 19:29 03/14/19 09:29 Dextrose (Dextrose 50%) 25 ml Q30M PRN IV Hypoglycemia 03/11/19 18:30 04/10/19 18:17 Dextrose (Dextrose 50%) 50 ml Q30M PRN IV hypoglycemia 03/11/19 18:30 04/10/19 18:29 Diphenhydramine HCl (Benadryl) 25 mg Q6H PRN ORAL Itching/Pruritis 03/11/19 18:15 04/10/19 18:14 Folic Acid (Folate) 1 mg DAILY ORAL 03/12/19 09:00 04/11/19 08:59 03/14/19 09:29 Furosemide (Lasix) 40 mg DAILY IV 03/12/19 09:00 04/11/19 08:59 03/14/19 09:29 Insulin Aspart (NovoLOG) BEFORE MEALS AND HS SUBQ 03/11/19 21:00 04/10/19 20:59 03/13/19 13:09 Lactulose (Cephulac) 20 gm EVERY 8 HOURS ORAL 03/11/19 18:15 04/10/19 18:14 03/14/19 05:34 Metronidazole 100 ml @ 100 mls/hr Q8HR IVPB 03/12/19 22:00 03/19/19 21:59 03/14/19 05:34 Morphine Sulfate (Morphine Sulfate) 2 mg Q4H PRN IVP Severe Pain (Pain Scale 7-10) 03/11/19 18:15 03/18/19 18:14 03/14/19 05:35 Nitroglycerin (Ntg) 0.4 mg Q5M X 3 DOSES PRN SL Prn Chest Pain 03/11/19 18:15 04/10/19 18:14 Ondansetron HCl (Zofran) 4 mg Q6H PRN IVP Nausea & Vomiting 03/11/19 18:15 04/10/19 18:14 Spironolactone (Aldactone) 100 mg DAILY ORAL 03/12/19 09:00 04/11/19 08:59 03/14/19 09:29 Temazepam (Restoril) 15 mg HSPRN PRN ORAL Insomnia 03/11/19 21:00 03/18/19 20:59 03/13/19 22:10 Thiamine HCl 100 mg/Dextrose 56 ml @ 112 mls/hr Q24H IVPB 03/12/19 11:00 04/11/19 10:59 03/14/19 11:01 Shireen Khan MD Mar 14, 2019 12:03
--- NOTE | 2019-03-14 14:26 | NUR ---
CASE MANAGEMENT:REVIEW 03/14/19 SI: ACUTE METABOLIC ENCEPHALOPATHY ASCITES. LIVER CIRRHOSIS. ETOH ABUSE 97.9 80 19 134/78 99% ON RA WBC-3.2 H/H-8.4/28.0 PLT-82 IS: IV FLAGYL Q8HRS IV THIAMINE Q24 NORVASC PO QD folate po qd iv lasix qd aldactone po qd : MED/SURG STATUS 3 EAST DCP: FROM HOME PLAN: SYMPTOMATIC TREATMENT PARACENTESIS ORDERED FOR TODAY HOPE TO DISCHARGE AFTER PROCEDURE
[2019-03-14 16:00] VITALS: BP 125/72
--- NOTE | 2019-03-14 17:28 | Pre-Procedure Note/Attestation ---
Pre-Procedure Note/Attestation Complete Prior to Procedure Planned Procedure: not applicable Procedure Narrative: paracentesis Indications for Procedure Pre-Operative Diagnosis: ascites Attestation I attest that I discussed the nature of the procedure; its benefits; risks and complications; and alternatives (and the risks and benefits of such alternatives ), prior to the procedure, with the patient (or the patient's legal senior customer service representative). I attest that, if there was a reasonable possibility of needing a blood transfusion, the patient (or the patient's legal senior customer service representative) was given the [facility] standardized written summary, pursuant to the Elijah Damian Blood Safety Act ([place] Health and Safety Code # 1645, as amended). I attest that I re-evaluated the patient just prior to the surgery and that there has been no change in the patient's H&P, except as documented below: Donnie Rosado MD Mar 14, 2019 17:28
--- NOTE | 2019-03-14 17:29 | Brief Operative Note ---
Immediate Post Operative Note Operative Note Pre-op Diagnosis: ascites Procedure: paracentesis Post-op Diagnosis: same as pre-op Surgeon: Milan Rosa Anesthesia: local Specimen: yes Complications: none Fluids: none Implant(s) used?: No Donnie Rosa MD Mar 14, 2019 17:29
--- NOTE | 2019-03-14 17:32 | Diagnostic Imaging Report ---
Indications: Ascites Technique: Ultrasound used to localize optimal puncture site. Sterile prepping and draping right lower quadrant. Local anesthesia with 1% lidocaine. Under real-time ultrasound guidance, puncture peritoneal space using paracentesis needle. Stylet removed. Catheter placed to vacuum bottle suction. Total 2.6 liters of clear yellow fluid aspirated. Patient tolerated procedure well, without immediate complication. Findings: Followup sonography demonstrates small amount of residual peritoneal fluid. Impression: Successful ultrasound-guided paracentesis, yielding 2.6 liters of fluid
[2019-03-14] MEDS ORDERED: HYDROcodone/Acetamin 10/325 tab ORAL PRN ×2 (18:15→18:30)
--- NOTE | 2019-03-14 18:15 | Infectious Diseases Prog Note ---
Assessment/Plan Assessment/Plan Assessment/Plan: Ms. Bradford is a 58 yo female with PMHx of HTN, DM, Liver Cirrhosis fro EtOH who presented to the ED on 03/12/19 with abdominal pain. Abdominal pain Likely from ascities less likely from any infection Agree with surgery that not typical presentation for acute cholecystitis -03/11 sp paracenteseis -fluid wbc 97 (N 34%) Afebrile No leukocytosis -u./a neg, ucx NTD HTN DM Liver Cirrhosis EtOH abuse PLAN - D/c Cipro #4 and flagyl #3 and monitor off abx - f/u cultures - Monitor CBC and Temps Thank you for this consult Subjective Allergies: Coded Allergies: No Known Allergies (Unverified , 01/31/19) Subjective afebrile no leukocytosis Objective Vital Signs Last 24 Hour Vital Signs Date Time Temp Pulse Resp B/P (MAP) Pulse Ox O2 Delivery O2 Flow Rate FiO2 03/14/19 16:00 98.2 77 20 125/72 (89) 97 03/14/19 12:00 98.0 79 20 122/75 (91) 98 03/14/19 09:29 80 134/78 03/14/19 09:00 Room Air 03/14/19 08:00 97.9 80 19 134/78 (96) 99 03/14/19 04:00 97.8 81 20 131/76 (94) 98 03/14/19 00:00 97.4 83 20 123/72 (89) 98 03/13/19 21:00 Room Air 03/13/19 20:00 97.6 83 20 127/68 (87) 98 Height (Feet): 5 Height (Inches): 0.00 Weight (Pounds): 200 Objective General Appearance: WD/WN HEENT: normocephalic Respiratory/Chest: chest wall non-tender, lungs clear Cardiovascular: normal peripheral pulses, normal rate Abdomen: normal bowel sounds, no organomegaly Genitourinary: normal external genitalia Skin: no rash Microbiology Date/Time Source Procedure Growth Status 03/13/19 16:35 Urine,Clean Catch Urine Culture - Preliminary NO GROWTH Resulted Laboratory Tests Test 03/14/19 05:52 White Blood Count 3.2 K/UL (4.8-10.8) L Red Blood Count 3.31 M/UL (4.20-5.40) L Hemoglobin 8.4 G/DL (12.0-16.0) L Hematocrit 28.0 % (37.0-47.0) L Mean Corpuscular Volume 85 FL (80-99) Mean Corpuscular Hemoglobin 25.5 PG (27.0-31.0) L Mean Corpuscular Hemoglobin Concent 30.1 G/DL (32.0-36.0) L Red Cell Distribution Width 18.7 % (11.6-14.8) H Platelet Count 82 K/UL (150-450) L Mean Platelet Volume 8.0 FL (6.5-10.1) Neutrophils (%) (Auto) % (45.0-75.0) Lymphocytes (%) (Auto) % (20.0-45.0) Monocytes (%) (Auto) % (1.0-10.0) Eosinophils (%) (Auto) % (0.0-3.0) Basophils (%) (Auto) % (0.0-2.0) Differential Total Cells Counted 100 Neutrophils % (Manual) 59 % (45-75) Lymphocytes % (Manual) 26 % (20-45) Monocytes % (Manual) 10 % (1-10) Eosinophils % (Manual) 3 % (0-3) Basophils % (Manual) 2 % (0-2) Band Neutrophils 0 % (0-8) Platelet Estimate Decreased L Platelet Morphology Normal Hypochromasia 2+ Anisocytosis 2+ Sodium Level 135 MMOL/L (136-145) L Potassium Level 3.4 MMOL/L (3.5-5.1) L Chloride Level 102 MMOL/L (98-107) Carbon Dioxide Level 25 MMOL/L (21-32) Anion Gap 8 mmol/L (5-15) Blood Urea Nitrogen 11 mg/dL (7-18) Creatinine 1.2 MG/DL (0.55-1.30) Estimat Glomerular Filtration Rate 46.3 mL/min (>60) Glucose Level 100 MG/DL (74-106) Calcium Level 8.4 MG/DL (8.5-10.1) L Total Bilirubin 1.3 MG/DL (0.2-1.0) H Direct Bilirubin 0.6 MG/DL (0.0-0.3) H Aspartate Amino Transf (AST/SGOT) 31 U/L (15-37) Alanine Aminotransferase (ALT/SGPT) 13 U/L (12-78) Alkaline Phosphatase 226 U/L (46-116) H Ammonia 47 umol/L (11-32) H Total Protein 6.4 G/DL (6.4-8.2) Albumin 2.0 G/DL (3.4-5.0) L Globulin 4.4 g/dL Albumin/Globulin Ratio 0.5 (1.0-2.7) L Current Medications Medications (Trade) Dose Ordered Sig/Almaz Route PRN Reason Start Time Stop Time Status Last Admin Dose Admin Acetaminophen (Tylenol) 650 mg Q4H PRN ORAL T>100.5 03/11/19 18:15 04/10/19 18:14 Amlodipine Besylate (Norvasc) 5 mg DAILY ORAL 03/12/19 09:00 04/11/19 08:59 03/14/19 09:29 Chlordiazepoxide (Librium) 25 mg Q6H PRN ORAL Agitation 03/12/19 07:30 03/19/19 07:29 Ciprofloxacin (Cipro 500mg tab) 500 mg EVERY 12 HOURS ORAL 03/11/19 19:30 03/18/19 19:29 03/14/19 09:29 Dextrose (Dextrose 50%) 25 ml Q30M PRN IV Hypoglycemia 03/11/19 18:30 04/10/19 18:17 Dextrose (Dextrose 50%) 50 ml Q30M PRN IV hypoglycemia 03/11/19 18:30 04/10/19 18:29 Diphenhydramine HCl (Benadryl) 25 mg Q6H PRN ORAL Itching/Pruritis 03/11/19 18:15 04/10/19 18:14 Folic Acid (Folate) 1 mg DAILY ORAL 03/12/19 09:00 04/11/19 08:59 03/14/19 09:29 Furosemide (Lasix) 40 mg DAILY IV 03/12/19 09:00 04/11/19 08:59 03/14/19 09:29 Insulin Aspart (NovoLOG) BEFORE MEALS AND HS SUBQ 03/11/19 21:00 04/10/19 20:59 03/13/19 13:09 Lactulose (Cephulac) 20 gm EVERY 8 HOURS ORAL 03/11/19 18:15 04/10/19 18:14 03/14/19 05:34 Metronidazole 100 ml @ 100 mls/hr Q8HR IVPB 03/12/19 22:00 03/19/19 21:59 03/14/19 15:32 Morphine Sulfate (Morphine Sulfate) 2 mg Q4H PRN IVP Severe Pain (Pain Scale 7-10) 03/11/19 18:15 03/18/19 18:14 03/14/19 05:35 Nitroglycerin (Ntg) 0.4 mg Q5M X 3 DOSES PRN SL Prn Chest Pain 03/11/19 18:15 04/10/19 18:14 Ondansetron HCl (Zofran) 4 mg Q6H PRN IVP Nausea & Vomiting 03/11/19 18:15 04/10/19 18:14 Spironolactone (Aldactone) 100 mg DAILY ORAL 03/12/19 09:00 04/11/19 08:59 03/14/19 09:29 Temazepam (Restoril) 15 mg HSPRN PRN ORAL Insomnia 03/11/19 21:00 03/18/19 20:59 03/13/19 22:10 Thiamine HCl 100 mg/Dextrose 56 ml @ 112 mls/hr Q24H IVPB 03/12/19 11:00 04/11/19 10:59 03/14/19 11:01 Edyta Hartley M.D. Mar 14, 2019 18:15
--- NOTE | 2019-03-14 19:20 | NUR ---
NURSE NOTES: Discharge instruction was given. Belongings were checked and given to pt. Removed IV access. Patient discharged in stable condition with her family.
--- NOTE | 2019-03-14 23:12 | Internal Med Progress Note ---
Subjective Physician Name Goldy Amador Attending Physician Goldy Amador MD Allergies: Coded Allergies: No Known Allergies (Unverified , 01/31/19) Subjective Awake, alert, responsive, complaining much less lower abdominal pain, denies any nausea or vomiting. Objective Last Vital Signs Date Time Temp Pulse Resp B/P (MAP) Pulse Ox O2 Delivery O2 Flow Rate FiO2 03/14/19 16:00 98.2 77 20 125/72 (89) 97 03/14/19 09:00 Room Air Laboratory Tests Test 03/14/19 05:52 White Blood Count 3.2 K/UL (4.8-10.8) L Red Blood Count 3.31 M/UL (4.20-5.40) L Hemoglobin 8.4 G/DL (12.0-16.0) L Hematocrit 28.0 % (37.0-47.0) L Mean Corpuscular Volume 85 FL (80-99) Mean Corpuscular Hemoglobin 25.5 PG (27.0-31.0) L Mean Corpuscular Hemoglobin Concent 30.1 G/DL (32.0-36.0) L Red Cell Distribution Width 18.7 % (11.6-14.8) H Platelet Count 82 K/UL (150-450) L Mean Platelet Volume 8.0 FL (6.5-10.1) Neutrophils (%) (Auto) % (45.0-75.0) Lymphocytes (%) (Auto) % (20.0-45.0) Monocytes (%) (Auto) % (1.0-10.0) Eosinophils (%) (Auto) % (0.0-3.0) Basophils (%) (Auto) % (0.0-2.0) Differential Total Cells Counted 100 Neutrophils % (Manual) 59 % (45-75) Lymphocytes % (Manual) 26 % (20-45) Monocytes % (Manual) 10 % (1-10) Eosinophils % (Manual) 3 % (0-3) Basophils % (Manual) 2 % (0-2) Band Neutrophils 0 % (0-8) Platelet Estimate Decreased L Platelet Morphology Normal Hypochromasia 2+ Anisocytosis 2+ Sodium Level 135 MMOL/L (136-145) L Potassium Level 3.4 MMOL/L (3.5-5.1) L Chloride Level 102 MMOL/L (98-107) Carbon Dioxide Level 25 MMOL/L (21-32) Anion Gap 8 mmol/L (5-15) Blood Urea Nitrogen 11 mg/dL (7-18) Creatinine 1.2 MG/DL (0.55-1.30) Estimat Glomerular Filtration Rate 46.3 mL/min (>60) Glucose Level 100 MG/DL (74-106) Calcium Level 8.4 MG/DL (8.5-10.1) L Total Bilirubin 1.3 MG/DL (0.2-1.0) H Direct Bilirubin 0.6 MG/DL (0.0-0.3) H Aspartate Amino Transf (AST/SGOT) 31 U/L (15-37) Alanine Aminotransferase (ALT/SGPT) 13 U/L (12-78) Alkaline Phosphatase 226 U/L (46-116) H Ammonia 47 umol/L (11-32) H Total Protein 6.4 G/DL (6.4-8.2) Albumin 2.0 G/DL (3.4-5.0) L Globulin 4.4 g/dL Albumin/Globulin Ratio 0.5 (1.0-2.7) L Microbiology Date/Time Source Procedure Growth Status 03/13/19 16:35 Urine,Clean Catch Urine Culture - Preliminary NO GROWTH Resulted Intake and Output 03/13/19 03/14/19 19:00 07:00 Intake Total 556 ml 560 ml Balance 556 ml 560 ml Intake Oral 300 ml 460 ml IV Total 256 ml 100 ml # Voids 1 2 Objective GENERAL: The patient is awake, responsive, in no acute distress. HEAD AND NECK: Pupils are equal and reactive to light. Extraocular movements intact. Neck was supple. No JVD. LUNGS: Good air entry. No wheezes or rhonchi. Decreased air in the bases. HEART: S1, S2. Regular rate and rhythm with a systolic ejection murmur. ABDOMEN: Soft, distended. Fluid shift. Morbidly obese. lower abdominal tender. No rebound tenderness. EXTREMITIES: No cyanosis or clubbing. +2 edema in bilateral lower extremities. NEUROLOGIC: Cranial nerves II through XII are grossly intact. Motor is 5/5 and symmetric. Gait is intact. RECTAL: Refused and deferred. Assessment/Plan Assessment/Plan ASSESSMENT: 1. Ascites. 2. Abdominal pain, most likely secondary to ascites. 3. Alcohol abuse with alcoholism. 4. History of prior GI bleed due to the Dieulafoy lesion in the peripyloric region. 5. Pancytopenia. 6. Diabetes type 2. 7. Hypertension. 8. Morbid obesity. 9. Anasarca with fluid overload. 10. Hepatic encephalopathy. 11. Lactic acidosis. 12. Gallbladder wall thickening R/O Acute cholecystitis. PLAN: In medical floor. Follow up laboratory. ultrasound of abdomen noted. Follow up with Dr. Torres from Gastroenterology and Dr. Khan, Pulmonary/ Critical Care. Code status, Full Code. DVT prophylaxis, SCD. We will follow up with cultures. Broad-spectrum antibiotic: Cipro and Flagyl DC home today. US Abdomen: Impression: Chronic liver disease/cirrhosis with stigmata of portal hypertension including moderate ascites and splenomegaly. Gallstones with gallbladder wall thickening. Correlate for cholecystitis. Goldy Amador MD Mar 14, 2019 23:12
--- NOTE | 2019-03-15 08:26 | Discharge Summary ---
Discharge Summary Discharge Summary _ DATE OF ADMISSION: 03/11/2019 DATE OF DISCHARGE: 03/14/2019 DISCHARGED BY: Dr. Amador REASON FOR ADMISSION: 58 years old female with past medical history significant for hypertension, diabetes mellitus type 2, liver cirrhosis, alcohol abuse, presented to emergency department with complaint of abdominal pain and leg edema. Patient reported abdominal girdle enlargement and leg edema. Patient with known history of ascites in the past, which required paracentesis about 2 months ago. Patient reported that she stopped drinking 9 days ago. Patient reported that she had fever and started on Macrobid for urinary tract infection at [facility] . Patient complained of severe, 9 out of 10, abdominal pain, constant, pressure- like, no nausea, no vomiting. No diarrhea. Upon evaluation vital signs were stable. Laboratory work-up revealed WBC 2.7, hemoglobin 8.2, hematocrit 27.5, platelets 77. INR 1.2. BUN 13 creatinine 1.3. Total bilirubin 1.2, direct bilirubin 0.7, AST 38, ALT 17, alkaline phosphatase 233. Ammonia 49. Troponin negative.EKG revealed sinus rhythm, no acute ischemic changes. Albumin 1.9. Lactic acid 3.5. Urinalysis revealed +1 leukocyte esterase, no evidence of pyuria or bacteria. Chest x-ray revealed no acute cardiopulmonary pathology. Abdominal ultrasound revealed chronic liver disease/cirrhosis with stigmata of portal hypertension, including moderate ascites and splenomegaly. Gallstones with gallbladder wall thickening. Patient subsequently undergone ultrasound-guided paracentesis which yielded 4liters of ascitic fluid. Abdominal discomfort slightly improved. Patient received fluid bolus, and lactic acid improved to 2.3. Patient subsequently admitted to medical surgical floor for further management. CONSULTANTS: pulmonary/critical care Dr. Khan ID specialist Dr. Hu GI specialist Dr. Torres surgery Dr. Whitaker [facility] COURSE: Patient admitted to medical surgical floor. GI specialist closely followed. Patient started on Lasix and Aldactone with close monitoring of volumes and renal parameters. Patient started on lactulose. Ammonia trended. CT of the abdomen and pelvis revealed no definite acute abnormality. Atrophic liver surface nodularity, consistent with cirrhotic changes. Evidence of portal hypertension, moderate ascites, splenomegaly and varices. Cholelithiasis. Edema of the bilateral flank subcutaneous fat. Mild cardiomegaly. Patient subsequently undergone another ultrasound-guided paracentesis on 7/15 which yielded 2.6 L of ascitic fluid. Patient was able to tolerate diet. No evidence of active GI bleeding. Stool for occult blood was negative. CEA within normal limits. Per GI specialist, no need to repeat endoscopy at this time . Hemoglobin and hematocrit were closely monitored with goal to keep hemoglobin above 7. Anemia work-up revealed evidence of anemia of chronic disease. Stable B12 and folate. Prior to discharge hemoglobin 8.4, hematocrit 28. WBC up to 3.2. Platelet count 82. Pancytopenia likely secondary to liver disease. Closely monitor counts as outpatient. Surgeon followed. CT of the abdomen and pelvis did show multiple gallstones in the gallbladder , but no biliary ductal dilatation. Per surgeon, no acute surgical intervention was necessarily. Abdominal pain was likely due to ascites . Distribution of pain was not consistent with cholecystitis. Physical exam was stable. No evidence of acute abdominal infection, no evidence of spontaneous bacterial peritonitis . Patient initially started on broad-spectrum antibiotics. ID specialist followed. Patient remained afebrile, no leukocytosis. Urinalysis negative, urine culture negative. Ascites fluid analysis did not show evidence of infection. No evidence of acute cholecystitis. Antibiotic discontinued. ID specialist recommended to monitor patient off antibiotics. Pain management was addressed. Supportive care provided. Antiemetic provided as needed. Librium was on board as needed. Patient started on thiamine. Renal parameters and electrolytes were closely monitored. Potassium and magnesium were replaced. Vitamin K given one-time for prolonged INR. Blood pressure was managed with calcium channel maura. Supplemental oxygen provided as needed to keep pulse oximetry above 92%. Pulse oximetry was stable on room air. Blood sugar was managed with sliding scale of insulin. Patient counseled on abstinence from ETOH. Ammonia remained elevated. Patient to continue lactulose at home. Patient clinically stabilized and was ready for discharge home. Overall prognosis poor. FINAL DIAGNOSES: Abdominal pain ,most likely secondary to ascites Ascites , status post paracentesis x 2 (yieldong 4 L and 2.6 L respectively) Alcohol abuse with history of alcoholism Acute metabolic encephalopathy Pancytopenia Hypertension Diabetes mellitus Morbid obesity Liver cirrhosis Anasarca with fluid overload Hepatic encephalopathy Lactic acidosis History of prior GI bleeding due to the Dieulafoy lesion in the peripyloric region DISCHARGE MEDICATIONS: See Medication Reconciliation list. DISCHARGE INSTRUCTIONS: Patient was discharged home. Follow up with primary care provider in one week. I have been assigned to dictate discharge summary for this account. I was not involved in the patient's management. Corinna Guzman NP Mar 15, 2019 08:26
--- NOTE | 2019-03-16 18:42 | Diagnostic Imaging Report ---
APPROVED REPORT CPT Code: 29601 Present Symptoms Comments: BILATERAL LEGS PAIN. BILATERAL: Imaging reveals a patent deep venous system bilaterally. There is no evidence of thrombus within the femoral, popliteal or tibial segments. The greater saphenous veins are also within normal limits. Doppler indicates normal spontaneous flow within these segments.
== END 2019-03-14 19:15 | disposition home or self-care (01) | DRG 432 ==
LOC: EMR 14:47 → 3E 15:28 → EDBEDREQ 17:14
PROC: 0W9G3ZZ Drainage of Peritoneal Cavity, Percutaneous Approach (ICD-10-PCS; principal; 2019-03-11)
PROC: 0W9G3ZZ Drainage of Peritoneal Cavity, Percutaneous Approach (ICD-10-PCS; 2019-03-14)
DX: K70.31 Alcoholic cirrhosis of liver with ascites (principal); G93.41 Metabolic encephalopathy; E87.2 Acidosis; D61.818 Other pancytopenia; K76.6 Portal hypertension; K72.90 Hepatic failure, unspecified without coma; F10.20 Alcohol dependence, uncomplicated; I10 Essential (primary) hypertension; E66.01 Morbid (severe) obesity due to excess calories; Z79.4 Long term (current) use of insulin; D69.6 Thrombocytopenia, unspecified
CPT/HCPCS: 36415; 71045; 74177; 76700; 76942; 80053; 81003; 82105; 82140; 82248; 82270; 82378; 82607; 82746; 82962; 83540; 83550; 83605; 83615; 83690; 83735; 84100; 84484; 85007; 85025; 85044; 85060; 85610; 85651; 85730; 86140; 86850; 86900; 86901; 87081; 87086; 88104; 89051; 93005; 93970; 96374; 96375; 96376; 99285; J1815; J2405; J8499

== ENCOUNTER 2019-04-16 12:03 | Emergency (ER) | payer MEDICARE, OTHER ==
[~2019-04-16] VITALS: Ht 154.9 cm; Wt 86.2 kg
[~2019-04-16 12:03] MED LIST changes: +AMLODIPINE BESYL5 MG ORAL; +CALCIUM + D SO1 EACH PO; +CHOLESTYRAMINE R5 GM ORAL; +FERROUS SULFAT325 MG ORAL; +FOLIC ACID1 MG ORAL; +FUROSEMIDE20 M1 ORAL; +LANTUS SOL100 UNIT/1 SUBQ; +METFORMIN HCL1000 M1 ORAL; +OMEPRAZOLE20 M3 ORAL; +XIFAXAN550 MG ORAL
--- NOTE | 2019-04-16 12:51 | Emergency Room Report ---
History of Present Illness General Chief Complaint: Abdominal Pain Source: Patient, Medical Record Present Illness HPI Patient presents with complaints of increased swelling to her abdominal area reports that she has ascites and Last time had paracentesis about 1 month ago She was not able to get this procedure done outpatient and presents for further evaluation denies any chest pain or shortness of breath denies any vomiting or diarrhea denies any back or flank pain Denies any recent trauma Allergies: Coded Allergies: No Known Allergies (Unverified , 01/31/19) Patient History Past Medical History: see triage record Last Menstrual Period: N/A Now: No Reviewed Nursing Documentation: PMH: Agreed; PSxH: Agreed Nursing Documentation-PMH Hx Cardiac Problems: Yes Hx Hypertension: Yes Hx Diabetes: Yes Hx Gastrointestinal Problems: Yes - cirrhosis, Anemia Hx Neurological Problems: No Review of Systems All Other Systems: negative except mentioned in HPI Physical Exam Vital Signs Date Time Temp Pulse Resp B/P (MAP) Pulse Ox O2 Delivery O2 Flow Rate FiO2 04/16/19 12:31 97.7 80 18 126/83 (97) 96 Room Air Sp02 EP Interpretation: reviewed, normal General Appearance: no apparent distress Head: normocephalic, atraumatic Eyes: bilateral eye PERRL, bilateral eye EOMI ENT: normal pharynx, no angioedema Neck: supple Respiratory: lungs clear, no respiratory distress, no retraction, no accessory muscle use Cardiovascular #1: regular rate, rhythm Gastrointestinal: soft, other - Small amount of ascites noted however patient' s abdomen is soft Musculoskeletal: normal inspection Neurologic: alert, oriented x3, responsive Psychiatric: normal inspection Skin: no rash Lymphatic: no adenopathy Medical Decision Making Diagnostic Impression: Primary Impression: Liver cirrhosis Additional Impression: ascites ER Course Patient presents with findings of ascites and requesting paracentesis Patient's clinical exam does not reveal any findings requiring emergent procedure patient's respiration and breathing is appropriate Exam is appropriate I discussed the importance of close outpatient follow-up And the need to set up outpatient follow-up for this procedure Last Vital Signs Date Time Temp Pulse Resp B/P (MAP) Pulse Ox O2 Delivery O2 Flow Rate FiO2 04/16/19 12:31 97.7 80 18 126/83 (97) 96 Room Air Status: unchanged Disposition: HOME, SELF-CARE Condition: Stable Referrals: [facility] + [facility] - Peds ER - Patient Instructions: Ascites Additional Instructions: Patient is provided with the discharge instructions notified to follow up with primary doctor in the next 2-3 days otherwise return to the er with any worsening symptoms. Please note that this report is being documented using DRAGON technology. This can lead to erroneous entry secondary to incorrect interpretation by the dictating instrument. Yashira Paulino DO Apr 16, 2019 12:51
[2019-04-16 12:55] VITALS: BP 126/83
--- NOTE | 2019-04-16 12:55 | NUR ---
ER DISCHARGE NOTE: Patient is cleared to be discharged per ERMD, pt is aox4, on room air, with stable vital signs. pt was given dc and prescription instructions, pt was able to verbalize understanding, pt id band removed without complications. pt is able to ambulate with steady gait. pt took all belongings.
== END 2019-04-16 14:00 | disposition home or self-care (01) ==
LOC: EMR 13:01
DX: R18.8 Other ascites (principal); K74.60 Unspecified cirrhosis of liver; E11.9 Type 2 diabetes mellitus without complications; I10 Essential (primary) hypertension
CPT/HCPCS: 99282

== ENCOUNTER 2019-04-18 08:08 | Inpatient (IN) | payer MEDICARE, OTHER ==
[~2019-04-18] VITALS: Ht 162.6 cm; Wt 87.5 kg
[2019-04-18 08:08] VITALS: BP 141/91
--- NOTE | 2019-04-18 08:10 | NUR ---
ED Nurse Note: Patient brought by RA from home due to ALOC and Ascites. Patient is warm to touch. alert and oriented x1, responsive to tactile stimuli. Hx of HTN and Cirrhosis. Breathing even and unlabored. Afebrile. S/O at bedside.
[2019-04-18] MEDS ORDERED: CELEBREX200 MG ORAL (08:13)
[2019-04-18] MEDS ORDERED: GABAPENTIN300 MG ORAL (08:13)
[2019-04-18] MEDS ORDERED: Vancomycin 1.5 GM in NS 275 ML IVPB ONE (08:15)
[2019-04-18] MEDS ORDERED: LANSOPRAZOLE15 MG ORAL (08:16)
[2019-04-18] MEDS ORDERED: HYDROXYZINE HCL10 M1 PO (08:16)
[2019-04-18] MEDS ORDERED: OYSTER SHELL 51 EAC1 PO (08:16)
--- NOTE | 2019-04-18 08:18 | Emergency Room Report ---
History of Present Illness General Chief Complaint: Altered Level of Consciousness Source: Medical Record Present Illness HPI 58-year-old female history of liver cirrhosis, ascites, hypertension, hyperlipidemia presents with acute altered mental status that started 1 day ago , no known aggravating relieving factors, patient is unable to give a history, patient was less responsive today. History was obtained through chart review and through her boyfriend. Allergies: Coded Allergies: No Known Allergies (Unverified , 01/31/19) Patient History Limited by: medical condition - AMS Past Medical History: see triage record Social History: Reports: alcohol use - Former Now: No Reviewed Nursing Documentation: PMH: Agreed; PSxH: Agreed Nursing Documentation-PMH Past Medical History: No History, Except For Hx Cardiac Problems: Yes Hx Hypertension: Yes Hx Diabetes: Yes Hx Gastrointestinal Problems: Yes - cirrhosis, Anemia Hx Neurological Problems: No Review of Systems All Other Systems: limited - Acutely altered Physical Exam Last 24 Hour Vital Signs Date Time Temp Pulse Resp B/P (MAP) Pulse Ox O2 Delivery O2 Flow Rate FiO2 04/18/19 08:37 90 16 Room Air 04/18/19 08:08 16 141/91 98 Room Air 04/18/19 08:04 99.7 90 16 141/91 (108) 98 Room Air Sp02 EP Interpretation: reviewed, normal General Appearance: alert, moderate distress Head: normocephalic, atraumatic Eyes: bilateral eye PERRL, bilateral eye EOMI ENT: uvula midline, dry mucus membranes Neck: supple, thyroid normal, supple/symm/no masses Respiratory: lungs clear, no respiratory distress, no retraction, no accessory muscle use Cardiovascular #1: normal peripheral pulses, regular rate, rhythm, no edema, no gallop, no murmur Gastrointestinal: non tender, soft, no guarding, no rebound, distended - Ascites present Musculoskeletal: normal inspection Neurologic: alert, responsive Psychiatric: mood/affect normal Skin: no rash, warm/dry Procedures Critical Care Time Critical Care Time Given the critical condition in which the patient arrived, the patient was immediately assessed by myself and the nurse, and cardiac monitoring initiated due to the potential for rapid decompensation of the patient's clinical condition. During the course of the patient's stay, I spent a considerable amount of time at the bedside performing serial re-evaluations of the patient's hemodynamic and clinical status because of the recognized potential threat to life or limb in this condition. I then had a chance to review not only all of the available current laboratory and radiographic studies obtained today, but I also reviewed old records available to me at the time. Additionally, any ancillary information available including bulker records were reviewed. Sequential vital signs were obtained. Critical Care time of 34 minutes was performed exclusive of billable procedures. Additional Procedure Procedure Narrative PROCEDURE: Diagnostic & Therapeutic Paracentesis, U/S guided. The area of the LEFT abdomen was prepped and draped in a sterile fashion using chlorhexidine scrub. Attempted to use a small gauge needle to aspirate ascites fluid for diagnostic cell count and culture under ultrasound. Needle was unable to reach. Ascitic fluid was NOT collected and sent for laboratory analysis. Medical Decision Making Diagnostic Impression: Primary Impression: Ascites Qualified Codes: K70.31 - Alcoholic cirrhosis of liver with ascites Additional Impressions: Altered mental status Qualified Codes: R41.82 - Altered mental status, unspecified Hepatic encephalopathy Sepsis Qualified Codes: A41.9 - Sepsis, unspecified organism Lactic acid acidosis ER Course 58-year-old female presents with AMS, attempted ultrasound-guided diagnostic tap however needle was too short to reach fluid given body habitus, concern for sepsis versus UTI versus SBP. Patient with elevated lactic acid, patient was fluid resuscitated based on ideal body weight Procedure team was consulted. Broad-spectrum antibiotics were started, patient will be admitted for AMS Reevaluation 9:05 AM, patient remains altered Patient found to have an elevated ammonia level we will start lactulose rectally because patient cannot tolerate p.o. at this moment Patient admitted and endorsed to Dr. Amador Emergency consent for ultrasound paracentesis: Patient has altered mental status urgency consent was signed, a reasonable effort has been made to contact next of kin, her boyfriend is present however he is not considered next of kin and the procedure is deemed emergent due to her altered mental status and possible risk of SBP Laboratory Tests Test 04/18/19 08:20 04/18/19 09:00 White Blood Count 7.5 K/UL (4.8-10.8) Red Blood Count 4.21 M/UL (4.20-5.40) Hemoglobin 10.6 G/DL (12.0-16.0) L Hematocrit 34.3 % (37.0-47.0) L Mean Corpuscular Volume 81 FL (80-99) Mean Corpuscular Hemoglobin 25.2 PG (27.0-31.0) L Mean Corpuscular Hemoglobin Concent 30.9 G/DL (32.0-36.0) L Red Cell Distribution Width 18.0 % (11.6-14.8) H Platelet Count 96 K/UL (150-450) L Mean Platelet Volume 7.8 FL (6.5-10.1) Neutrophils (%) (Auto) % (45.0-75.0) Lymphocytes (%) (Auto) % (20.0-45.0) Monocytes (%) (Auto) % (1.0-10.0) Eosinophils (%) (Auto) % (0.0-3.0) Basophils (%) (Auto) % (0.0-2.0) Differential Total Cells Counted 100 Neutrophils % (Manual) 91 % (45-75) H Lymphocytes % (Manual) 4 % (20-45) L Monocytes % (Manual) 5 % (1-10) Eosinophils % (Manual) 0 % (0-3) Basophils % (Manual) 0 % (0-2) Band Neutrophils 0 % (0-8) Platelet Estimate Decreased L Platelet Morphology Normal Hypochromasia 2+ Anisocytosis 1+ Microcytosis 1+ Prothrombin Time 15.0 SEC (9.30-11.50) H Prothrombin Time INR 1.4 (0.9-1.1) H PTT 29 SEC (23-33) Sodium Level 133 MMOL/L (136-145) L Potassium Level 4.3 MMOL/L (3.5-5.1) Chloride Level 99 MMOL/L (98-107) Carbon Dioxide Level 23 MMOL/L (21-32) Anion Gap 11 mmol/L (5-15) Blood Urea Nitrogen 33 mg/dL (7-18) H Creatinine 2.2 MG/DL (0.55-1.30) H Estimate Glomerular Filtration Rate 23.0 mL/min (>60) Glucose Level 83 MG/DL (74-106) Lactic Acid Level 3.60 mmol/L (0.4-2.0) H Calcium Level 8.7 MG/DL (8.5-10.1) Phosphorus Level 3.8 MG/DL (2.5-4.9) Magnesium Level 1.7 MG/DL (1.8-2.4) L Total Bilirubin 2.7 MG/DL (0.2-1.0) H Direct Bilirubin 1.7 MG/DL (0.0-0.3) H Aspartate Amino Transferase (AST) 44 U/L (15-37) H Alanine Aminotransferase (ALT) 24 U/L (12-78) Alkaline Phosphatase 289 U/L (46-116) H Ammonia 151 umol/L (11-32) H Total Creatine Kinase 120 U/L (26-308) Creatine Kinase MB 2.9 NG/ML (0.0-3.6) Creatine Kinase MB Relative Index 2.4 Troponin I 0.000 ng/mL (0.000-0.056) Pro-B-Type Natriuretic Peptide 598 pg/mL (0-125) H Total Protein 7.3 G/DL (6.4-8.2) Albumin 1.8 G/DL (3.4-5.0) L Globulin 5.5 g/dL Albumin/Globulin Ratio 0.3 (1.0-2.7) L Lipase 51 U/L (73-393) L Salicylates Level < 0.2 ug/mL (2.8-20) L Acetaminophen Level < 2 MCG/ML (10-30) L Serum Alcohol < 3 mg/dL Hepatitis A IgM Antibody Pending Hepatitis B Surface Antigen Pending Hepatitis B Core IgM Antibody Pending Hepatitis C Antibody Pending Urine Color Zohreh Urine Appearance Clear Urine pH 6.5 (4.5-8.0) Urine Specific [place] 1.010 (1.005-1.035) Urine Protein Negative (NEGATIVE) Urine Glucose (UA) Negative (NEGATIVE) Urine Ketones 1+ (NEGATIVE) H Urine Blood 1+ (NEGATIVE) H Urine Nitrite Negative (NEGATIVE) Urine Bilirubin Negative (NEGATIVE) Urine Ictotest Negative (NEGATIVE) Urine Urobilinogen 4 MG/DL (0.0-1.0) H Urine Leukocyte Esterase 1+ (NEGATIVE) H Urine RBC 0-2 /HPF (0 - 2) Urine WBC 0-2 /HPF (0 - 2) Urine Squamous Epithelial Cells Few /LPF (NONE/OCC) Urine Bacteria Occasional /HPF (NONE) EKG Diagnostic Results EKG Time: 08:11 EP Interpretation: NSR, rate 89, QTc 484, left axis deviation, no acute ST elevations Rate: normal Rhythm: NSR ST Segments: no acute changes Rhythm Strip Diag. Results Rhythm Strip Time: 08:18 EP Interpretation: yes Rate: 86 Rhythm: NSR, no PVC's, no ectopy Chest X-Ray Diagnostic Results Chest X-Ray Diagnostic Results : Chest X-Ray Ordered: Yes # of Views/Limited/Complete: 1 View Indication: Other - AMS EP Interpretation: Yes Interpretation: no consolidation, no effusion, no pneumothorax, no acute cardiopulmonary disease Impression: No acute disease Electronically Signed by: Marc Sparks MD Last Vital Signs Date Time Temp Pulse Resp B/P (MAP) Pulse Ox O2 Delivery O2 Flow Rate FiO2 04/18/19 08:04 90 16 141/91 (108) 98 Room Air Disposition: ADMITTED INPATIENT Condition: Stable Marc Sparks MD Apr 18, 2019 08:18
[2019-04-18 08:34] LABS: HEMATOCRIT 34.3 % (37.0-47.0); HEMOGLOBIN 10.6 G/DL (12.0-16.0); MEAN CORPUSCULAR VOLUME 81 FL (80-99); PLATELET COUNT 96 K/UL (150-450); RED BLOOD COUNT 4.21 M/UL (4.20-5.40); WHITE BLOOD COUNT 7.5 K/UL (4.8-10.8)
[2019-04-18 08:44] LABS: INR 1.4 (0.9-1.1)
--- NOTE | 2019-04-18 08:45 | NUR ---
ED Nurse Note: CXR done.
[2019-04-18 08:48] LABS: ANION GAP 11 mmol/L (5-15); BLOOD UREA NITROGEN 33 mg/dL (7-18); CALCIUM 8.7 MG/DL (8.5-10.1); CARBON DIOXIDE 23 MMOL/L (21-32); CHLORIDE 99 MMOL/L (98-107); CREATININE 2.2 MG/DL (0.55-1.30); POTASSIUM 4.3 MMOL/L (3.5-5.1); SODIUM 133 MMOL/L (136-145)
[2019-04-18 08:51] LABS: AMMONIA 151 umol/L (11-32)
[2019-04-18 09:02] LABS: ALANINE AMINOTRANSFERASE 24 U/L (12-78); ALBUMIN 1.8 G/DL (3.4-5.0); ALBUMIN/GLOBULIN RATIO 0.3 (1.0-2.7); ALKALINE PHOSPHATASE 289 U/L (46-116); ASPARTATE AMINO TRANSFERASE 44 U/L (15-37); BILIRUBIN,TOTAL 2.7 MG/DL (0.2-1.0); CKMB 2.9 NG/ML (0.0-3.6); CREATINE KINASE 120 U/L (26-308); PHOSPHORUS 3.8 MG/DL (2.5-4.9)
[2019-04-18 09:06] LABS: BILIRUBIN,DIRECT 1.7 MG/DL (0.0-0.3)
[2019-04-18] MEDS ORDERED: Lactulose 20gm/30ml UDC RECTAL ONE (09:15)
[2019-04-18] MEDS: Cefepime HCl 2 GM in NS 110 ML IV SCH ×2 (09:22→20:59)
[2019-04-18 09:23] LABS: APPEARANCE,URINE CLEAR; BILIRUBIN, URINE NEGATIVE (NEGATIVE); COLOR,URINE AMBER; GLUCOSE, URINE (UA) NEGATIVE (NEGATIVE); KETONES,URINE 1+ (NEGATIVE); LEUKOCYTE ESTERASE ,URINE 1+ (NEGATIVE); NITRITE,URINE NEGATIVE (NEGATIVE); PH,URINE 6.5 (4.5-8.0); PROTEIN,URINE NEGATIVE (NEGATIVE); UROBILINOGEN,URINE 4 MG/DL (0.0-1.0)
--- NOTE | 2019-04-18 09:32 | NUR ---
ED Nurse Note: Went down for HENNA.
--- NOTE | 2019-04-18 09:45 | NUR ---
ED Nurse Note: Unable to obtain lactic acid reflex. Patient went down for paracentesis.
[2019-04-18] MEDS ORDERED: Nitroglycerin Subl 0.4mg tab SL PRN (10:00)
[2019-04-18] MEDS ORDERED: Miralax 17gm pkt ORAL PRN (10:00)
[2019-04-18] MEDS ORDERED: Morphine Sulfate 2mg/ml Inj(IV/IM USE ONLY) IVP PRN (10:00)
[2019-04-18] MEDS ORDERED: Dextrose 50% 25ml Syringe IV PRN (10:00)
--- NOTE | 2019-04-18 10:22 | Brief Operative Note ---
Immediate Post Operative Note Operative Note Pre-op Diagnosis: ascites Procedure: Paracentesis Post-op Diagnosis: same as pre-op Surgeon: Milan Rosa Anesthesia: local Specimen: none Complications: none Condition: stable Fluids: none Implant(s) used?: No Donnie Rosa MD Apr 18, 2019 10:22
--- NOTE | 2019-04-18 10:22 | Pre-Procedure Note/Attestation ---
Pre-Procedure Note/Attestation Complete Prior to Procedure Planned Procedure: not applicable Procedure Narrative: paracentesis Indications for Procedure Pre-Operative Diagnosis: ascites Attestation I attest that I discussed the nature of the procedure; its benefits; risks and complications; and alternatives (and the risks and benefits of such alternatives ), prior to the procedure, with the patient (or the patient's legal national account representative). I attest that, if there was a reasonable possibility of needing a blood transfusion, the patient (or the patient's legal national account representative) was given the [facility] standardized written summary, pursuant to the Elijah Damian Blood Safety Act ([place] Health and Safety Code # 1645, as amended). I attest that I re-evaluated the patient just prior to the surgery and that there has been no change in the patient's H&P, except as documented below: Emergency consent provided by Dr. Sparks, documented in EMR Donnie Rosado MD Apr 18, 2019 10:22
--- NOTE | 2019-04-18 11:00 | NUR ---
per maintenance mechanic technician they have removed 7.1 liter of fluid through paracentesis
--- NOTE | 2019-04-18 11:08 | Diagnostic Imaging Report ---
Indication: Cough Technique: One view of the chest Comparison: 03/11/2019 Findings: Inspiration is suboptimal. There is increased elevation of the right hemidiaphragm. There is some atelectasis at the right lung base. The lungs and pleural spaces are otherwise clear. The heart is borderline enlarged. Impression: Hypoventilatory exam. No definite acute process
[2019-04-18] MEDS ORDERED: Phytonadione 10 MG in D5W 55 ML IVPB SCH (12:00)
--- NOTE | 2019-04-18 12:08 | GI Initial Consult Note ---
History of Present Illness General Date patient seen: Apr 18, 2019 Time patient seen: 12:03 Reason for Hospitalization: Altered Level of Consciousness Referring physician: TONI MARTINEZ Reason for Consultation: CIRRHOSIS Present Illness HPI 58-year-old female history of liver cirrhosis, ascites, hypertension, hyperlipidemia presents with acute altered mental status that started 1 day ago , no known aggravating relieving factors, patient is unable to give a history, patient was less responsive today. History was obtained through chart review and through her boyfriend. Patient currently undergoing MRI of the brain. Labs reviewed; ammonia level of 150. Unknown history of endoscopy/colonoscopy at this time. Noted that paracentesis was performed in the ED. Home Meds Active Scripts Spironolactone (ALDACTONE) 50 Mg Tablet, 50 MG ORAL DAILY for 30 Days, TAB Prov:Shireen Khan MD 02/08/19 Lactulose (LACTULOSE*) 20 Gm/30 Ml Solution, 15 GM ORAL Q8HR for 30 Days, #60 ML Prov:Shireen Khan MD 02/08/19 Furosemide* (LASIX*) 40 Mg Tablet, 40 MG ORAL DAILY for 30 Days, TAB Prov:Shireen Khan MD 02/08/19 Reported Medications Calcium Carbonate/Vitamin D3 (OYSTER SHELL 500 MG + VIT D TB) 1 Each Tablet, 1 EACH PO, TAB 04/18/19 Lansoprazole* (LANSOPRAZOLE*) 15 Mg Capsule.dr, 15 MG ORAL DAILY, CAP 04/18/19 Hydroxyzine Hcl (HYDROXYZINE HCL) 10 Mg Tablet, 10 MG PO TWICE A DAY for anxiety , TAB 04/18/19 Celecoxib* (CELEBREX*) 200 Mg Capsule, 200 MG ORAL TWICE A DAY, CAP 04/18/19 Gabapentin* (GABAPENTIN*) 300 Mg Capsule, 300 MG ORAL THREE TIMES A DAY, CAP 0 Refills 04/18/19 Rifaximin* (XIFAXAN*) 550 Mg Tablet, 550 MG ORAL TWICE A DAY for 30 Days, MG 0 Refills 03/11/19 Omeprazole (OMEPRAZOLE) 20 Mg Tablet.dr, 20 MG ORAL BID, TAB 03/11/19 Metformin Hcl* (METFORMIN HCL*) 1,000 Mg Tablet, 1000 MG ORAL BID, TAB 03/11/19 Lactulose (LACTULOSE*) 20 Gm/30 Ml Solution, 30 ML ORAL, ML 0 Refills 03/11/19 Insulin Glargine (LANTUS) 100 Unit/1 Ml Insuln.pen, 0 SUBQ BEDTIME, #1 EA 0 Refills 03/11/19 Furosemide* (LASIX*) 20 Mg Tablet, 20 MG ORAL DAILY, TAB 03/11/19 Folic Acid* (FOLIC ACID*) 1 Mg Tablet, 1 MG ORAL DAILY, TAB 03/11/19 Ferrous Sulfate* (FERROUS SULFATE*) 325 Mg Tablet, 325 MG ORAL DAILY, #30 TAB 0 Refills 03/11/19 Cholestyramine (CHOLESTYRAMINE RESIN) 5 Gm Powder, 5 GM ORAL DAILY, GM 03/11/19 Ca Carbonate/Vitamin D3/Vit K (CALCIUM + D SOFT CHEWABLE TAB) 1 Each Tab.chew, 1 EACH PO BID, TAB 03/11/19 Amlodipine Besylate* (AMLODIPINE BESYLATE*) 5 Mg Tablet, 5 MG ORAL DAILY, TAB 03/11/19 Atorvastatin (Lipitor) 80 Mg Tablet, 40 MG ORAL BEDTIME, #30 TAB 0 Refills 01/31/19 Losartan Potassium (LOSARTAN POTASSIUM) 100 Mg Tablet, 100 MG ORAL DAILY, TAB 01/31/19 Med list reviewed/reconciled: Yes Allergies: Coded Allergies: No Known Allergies (Unverified , 01/31/19) Patient History PMH Narrative Limited by: medical condition - AMS Past Medical History: see triage record Social History: Reports: alcohol use - Former Now: No Reviewed Nursing Documentation: PMH: Agreed; PSxH: Agreed Nursing Documentation-PMH Past Medical History: No History, Except For Hx Cardiac Problems: Yes Hx Hypertension: Yes Hx Diabetes: Yes Hx Gastrointestinal Problems: Yes - cirrhosis, Anemia Hx Neurological Problems: No Social History: Reports: alcohol use Review of Systems All Other Systems: limited Physical Exam Vital Signs Date Time Temp Pulse Resp B/P (MAP) Pulse Ox O2 Delivery O2 Flow Rate FiO2 04/18/19 08:04 99.7 90 16 141/91 (108) 98 Room Air Sp02 EP Interpretation: reviewed, normal Labs Laboratory Tests Test 04/18/19 08:20 04/18/19 09:00 04/18/19 10:15 White Blood Count 7.5 K/UL (4.8-10.8) Red Blood Count 4.21 M/UL (4.20-5.40) Hemoglobin 10.6 G/DL (12.0-16.0) L Hematocrit 34.3 % (37.0-47.0) L Mean Corpuscular Volume 81 FL (80-99) Mean Corpuscular Hemoglobin 25.2 PG (27.0-31.0) L Mean Corpuscular Hemoglobin Concent 30.9 G/DL (32.0-36.0) L Red Cell Distribution Width 18.0 % (11.6-14.8) H Platelet Count 96 K/UL (150-450) L Mean Platelet Volume 7.8 FL (6.5-10.1) Neutrophils (%) (Auto) % (45.0-75.0) Lymphocytes (%) (Auto) % (20.0-45.0) Monocytes (%) (Auto) % (1.0-10.0) Eosinophils (%) (Auto) % (0.0-3.0) Basophils (%) (Auto) % (0.0-2.0) Differential Total Cells Counted 100 Neutrophils % (Manual) 91 % (45-75) H Lymphocytes % (Manual) 4 % (20-45) L Monocytes % (Manual) 5 % (1-10) Eosinophils % (Manual) 0 % (0-3) Basophils % (Manual) 0 % (0-2) Band Neutrophils 0 % (0-8) Platelet Estimate Decreased L Platelet Morphology Normal Hypochromasia 2+ Anisocytosis 1+ Microcytosis 1+ Prothrombin Time 15.0 SEC (9.30-11.50) H Prothromb Time International Ratio 1.4 (0.9-1.1) H Activated Partial Thromboplast Time 29 SEC (23-33) Sodium Level 133 MMOL/L (136-145) L Potassium Level 4.3 MMOL/L (3.5-5.1) Chloride Level 99 MMOL/L (98-107) Carbon Dioxide Level 23 MMOL/L (21-32) Anion Gap 11 mmol/L (5-15) Blood Urea Nitrogen 33 mg/dL (7-18) H Creatinine 2.2 MG/DL (0.55-1.30) H Estimat Glomerular Filtration Rate 23.0 mL/min (>60) Glucose Level 83 MG/DL (74-106) Lactic Acid Level 3.60 mmol/L (0.4-2.0) H Calcium Level 8.7 MG/DL (8.5-10.1) Phosphorus Level 3.8 MG/DL (2.5-4.9) Magnesium Level 1.7 MG/DL (1.8-2.4) L Total Bilirubin 2.7 MG/DL (0.2-1.0) H Direct Bilirubin 1.7 MG/DL (0.0-0.3) H Aspartate Amino Transf (AST/SGOT) 44 U/L (15-37) H Alanine Aminotransferase (ALT/SGPT) 24 U/L (12-78) Alkaline Phosphatase 289 U/L (46-116) H Ammonia 151 umol/L (11-32) H Total Creatine Kinase 120 U/L (26-308) Creatine Kinase MB 2.9 NG/ML (0.0-3.6) Creatine Kinase MB Relative Index 2.4 Troponin I 0.000 ng/mL (0.000-0.056) Pro-B-Type Natriuretic Peptide 598 pg/mL (0-125) H Total Protein 7.3 G/DL (6.4-8.2) Albumin 1.8 G/DL (3.4-5.0) L Globulin 5.5 g/dL Albumin/Globulin Ratio 0.3 (1.0-2.7) L Lipase 51 U/L (73-393) L Salicylates Level < 0.2 ug/mL (2.8-20) L Acetaminophen Level < 2 MCG/ML (10-30) L Serum Alcohol < 3 mg/dL Hepatitis A IgM Antibody Pending Hepatitis B Surface Antigen Pending Hepatitis B Core IgM Antibody Pending Hepatitis C Antibody Pending Urine Color Zohreh Urine Appearance Clear Urine pH 6.5 (4.5-8.0) Urine Specific [place] 1.010 (1.005-1.035) Urine Protein Negative (NEGATIVE) Urine Glucose (UA) Negative (NEGATIVE) Urine Ketones 1+ (NEGATIVE) H Urine Blood 1+ (NEGATIVE) H Urine Nitrite Negative (NEGATIVE) Urine Bilirubin Negative (NEGATIVE) Urine Ictotest Negative (NEGATIVE) Urine Urobilinogen 4 MG/DL (0.0-1.0) H Urine Leukocyte Esterase 1+ (NEGATIVE) H Urine RBC 0-2 /HPF (0 - 2) Urine WBC 0-2 /HPF (0 - 2) Urine Squamous Epithelial Cells Few /LPF (NONE/OCC) Urine Bacteria Occasional /HPF (NONE) Body Fluid Glucose Pending Body Fluid Total Protein Pending General Appearance: well appearing, no apparent distress, alert Head: normocephalic EENT: PERRL/EOMI, normal ENT inspection Neck: supple Respiratory: normal breath sounds, no respiratory distress Cardiovascular: normal rate Gastrointestinal: normal inspection, non tender, soft, normal bowel sounds, non -distended, ascites Rectal: deferred Genitourinary: no CVA tenderness Musculoskeletal: normal inspection, back normal Neurologic: normal inspection, alert, oriented x3, responsive Psychiatric: normal inspection, judgement/insight normal, memory normal Skin: normal inspection, normal color, no rash, warm/dry, palpation normal, well hydrated Lymphatic: normal inspection, no adenopathy Current Medications Current Medications Medications (Trade) Dose Ordered Sig/[place] Route PRN Reason Start Time Stop Time Status Last Admin Dose Admin Acetaminophen (Tylenol) 650 mg Q4H PRN ORAL fever 04/18/19 10:00 05/18/19 09:59 Cefepime HCl 2 gm/ Sodium Chloride 110 ml @ 220 mls/hr Q12H IV 04/18/19 08:15 04/19/19 08:14 04/18/19 09:22 Dextrose (Dextrose 50%) 25 ml Q30M PRN IV Hypoglycemia 04/18/19 10:00 05/18/19 09:53 Dextrose (Dextrose 50%) 50 ml Q30M PRN IV hypoglycemia 04/18/19 10:00 05/18/19 09:59 Dextrose/Sodium Chloride 1,000 ml @ 75 mls/hr [id number] IV 04/18/19 09:53 05/18/19 09:52 Diphenhydramine HCl (Benadryl) 25 mg Q6H PRN ORAL Itching/Pruritis 04/18/19 10:00 05/18/19 09:59 Lactulose (Cephulac) 30 gm THREE TIMES A DAY ORAL 04/18/19 13:00 05/18/19 12:59 Metronidazole 100 ml @ 100 mls/hr Q6H IV 04/18/19 08:15 04/19/19 08:14 04/18/19 08:50 Morphine Sulfate (Morphine Sulfate) 2 mg Q4H PRN IVP severe Pain (Pain Scale 7-10) 04/18/19 10:00 04/25/19 09:59 Nitroglycerin (Ntg) 0.4 mg Q5M X 3 DOSES PRN SL Prn Chest Pain 04/18/19 10:00 05/18/19 09:59 Ondansetron HCl (Zofran) 4 mg Q6H PRN IVP Nausea & Vomiting 04/18/19 10:00 05/18/19 09:59 Phytonadione 10 mg/Dextrose 56 ml @ 110 mls/hr ONCE IVPB 04/18/19 12:00 04/18/19 14:00 Polyethylene Glycol (Miralax) 17 gm HSPRN PRN ORAL Constipation 04/18/19 10:00 05/18/19 09:59 Rifaximin (Xifaxan) 550 mg EVERY 12 HOURS ORAL 04/18/19 21:00 04/25/19 20:59 Temazepam (Restoril) 15 mg HSPRN PRN ORAL Insomnia 04/18/19 10:00 04/25/19 09:59 GI: Plan Problems: (1) Anasarca (2) Liver cirrhosis (3) Abdominal pain (4) Ascites (5) Altered mental status (6) Hepatic encephalopathy (7) ETOH abuse Plan s/p paracentesis in the ED s/p EGD 02/04/19 with active bleed from [place] lesion May need repeat endoscopy. anemia work up OB stool r/o GI bleed monitor H&H, prn transfusions bowel regimen ppi lactulose + xifaxan fu labs Discussed with Dr. Torres. Thank you for this patient referral, we will follow. The patient was seen and examined at bedside and all new and available data was reviewed in the patients chart. I agree with the above findings, impression and plan. (Patient seen earlier today. Signature stamp does not reflect patient encounter time.). - MD Ariana Ruff,[facility] [employer]PERATIONS SUPPORT MANAGER Apr 18, 2019 12:08
--- NOTE | 2019-04-18 12:14 | Consultation ---
History of Present Illness General Date patient seen: Apr 18, 2019 Chief Complaint: Altered Level of Consciousness Referring physician: TONI MARTINEZ Reason for Consultation: CIRRHOSIS Present Illness HPI 58-year-old female with history of liver cirrhosis, ascites, hypertension, presented to ER with acute altered mental status that started 1 day ago. patient was unable to give a history, She was somnolent but looked comfortable. she is admitted for acute encephalopathy. Allergies: Coded Allergies: No Known Allergies (Unverified , 01/31/19) Medication History Scheduled Amlodipine Besylate* (Amlodipine Besylate*), 5 MG ORAL DAILY, (Reported) Atorvastatin (Lipitor), 40 MG ORAL BEDTIME, (Reported) Ca Carbonate/Vitamin D3/Vit K (Calcium + D Soft Chewable Tab), 1 EACH PO BID, ( Reported) Celecoxib* (Celebrex*), 200 MG ORAL TWICE A DAY, (Reported) Cholestyramine (Cholestyramine Resin), 5 GM ORAL DAILY, (Reported) Ferrous Sulfate* (Ferrous Sulfate*), 325 MG ORAL DAILY, (Reported) Folic Acid* (Folic Acid*), 1 MG ORAL DAILY, (Reported) Furosemide* (Lasix*), 40 MG ORAL DAILY Furosemide* (Lasix*), 20 MG ORAL DAILY, (Reported) Gabapentin* (Gabapentin*), 300 MG ORAL THREE TIMES A DAY, (Reported) Hydroxyzine Hcl (Hydroxyzine Hcl), 10 MG PO TWICE A DAY, (Reported) Insulin Glargine (Lantus), 0 SUBQ BEDTIME, (Reported) Lactulose (Lactulose*), 15 GM ORAL Q8HR Lansoprazole* (Lansoprazole*), 15 MG ORAL DAILY, (Reported) Losartan Potassium (Losartan Potassium), 100 MG ORAL DAILY, (Reported) Metformin Hcl* (Metformin Hcl*), 1,000 MG ORAL BID, (Reported) Omeprazole (Omeprazole), 20 MG ORAL BID, (Reported) Rifaximin* (Xifaxan*), 550 MG ORAL TWICE A DAY, (Reported) Spironolactone (Aldactone), 50 MG ORAL DAILY Miscellaneous Medications Calcium Carbonate/Vitamin D3 (Oyster Shell 500 Mg + Vit D Tb), 1 EACH PO, ( Reported) Lactulose (Lactulose*), 30 ML ORAL, (Reported) Patient History Healthcare decision maker Resuscitation status Advanced Directive on File Past Medical/Surgical History Past Medical/Surgical History: (1) Liver cirrhosis (2) Ascites (3) Anasarca Review of Systems All Other Systems: negative except mentioned in HPI Physical Exam General Appearance: WD/WN Lines, tubes and drains: peripheral HEENT: normocephalic, atraumatic Neck: non-tender, normal alignment Respiratory/Chest: chest wall non-tender, lungs clear, decreased breath sounds Breasts: no masses Cardiovascular/Chest: normal peripheral pulses Abdomen: normal bowel sounds, non tender Genitourinary/Rectal: normal genital exam Extremities: normal range of motion Skin Exam: normal pigmentation Neurologic: slag mixer II-XII grossly normal Last 24 Hour Vital Signs Date Time Temp Pulse Resp B/P (MAP) Pulse Ox O2 Delivery O2 Flow Rate FiO2 04/18/19 08:37 90 16 Room Air 04/18/19 08:08 16 141/91 98 Room Air 04/18/19 08:04 99.7 90 16 141/91 (108) 98 Room Air Laboratory Tests Test 04/18/19 08:20 04/18/19 09:00 04/18/19 10:15 White Blood Count 7.5 K/UL (4.8-10.8) Red Blood Count 4.21 M/UL (4.20-5.40) Hemoglobin 10.6 G/DL (12.0-16.0) L Hematocrit 34.3 % (37.0-47.0) L Mean Corpuscular Volume 81 FL (80-99) Mean Corpuscular Hemoglobin 25.2 PG (27.0-31.0) L Mean Corpuscular Hemoglobin Concent 30.9 G/DL (32.0-36.0) L Red Cell Distribution Width 18.0 % (11.6-14.8) H Platelet Count 96 K/UL (150-450) L Mean Platelet Volume 7.8 FL (6.5-10.1) Neutrophils (%) (Auto) % (45.0-75.0) Lymphocytes (%) (Auto) % (20.0-45.0) Monocytes (%) (Auto) % (1.0-10.0) Eosinophils (%) (Auto) % (0.0-3.0) Basophils (%) (Auto) % (0.0-2.0) Differential Total Cells Counted 100 Neutrophils % (Manual) 91 % (45-75) H Lymphocytes % (Manual) 4 % (20-45) L Monocytes % (Manual) 5 % (1-10) Eosinophils % (Manual) 0 % (0-3) Basophils % (Manual) 0 % (0-2) Band Neutrophils 0 % (0-8) Platelet Estimate Decreased L Platelet Morphology Normal Hypochromasia 2+ Anisocytosis 1+ Microcytosis 1+ Prothrombin Time 15.0 SEC (9.30-11.50) H Prothromb Time International Ratio 1.4 (0.9-1.1) H Activated Partial Thromboplast Time 29 SEC (23-33) Sodium Level 133 MMOL/L (136-145) L Potassium Level 4.3 MMOL/L (3.5-5.1) Chloride Level 99 MMOL/L (98-107) Carbon Dioxide Level 23 MMOL/L (21-32) Anion Gap 11 mmol/L (5-15) Blood Urea Nitrogen 33 mg/dL (7-18) H Creatinine 2.2 MG/DL (0.55-1.30) H Estimat Glomerular Filtration Rate 23.0 mL/min (>60) Glucose Level 83 MG/DL (74-106) Lactic Acid Level 3.60 mmol/L (0.4-2.0) H Calcium Level 8.7 MG/DL (8.5-10.1) Phosphorus Level 3.8 MG/DL (2.5-4.9) Magnesium Level 1.7 MG/DL (1.8-2.4) L Total Bilirubin 2.7 MG/DL (0.2-1.0) H Direct Bilirubin 1.7 MG/DL (0.0-0.3) H Aspartate Amino Transf (AST/SGOT) 44 U/L (15-37) H Alanine Aminotransferase (ALT/SGPT) 24 U/L (12-78) Alkaline Phosphatase 289 U/L (46-116) H Ammonia 151 umol/L (11-32) H Total Creatine Kinase 120 U/L (26-308) Creatine Kinase MB 2.9 NG/ML (0.0-3.6) Creatine Kinase MB Relative Index 2.4 Troponin I 0.000 ng/mL (0.000-0.056) Pro-B-Type Natriuretic Peptide 598 pg/mL (0-125) H Total Protein 7.3 G/DL (6.4-8.2) Albumin 1.8 G/DL (3.4-5.0) L Globulin 5.5 g/dL Albumin/Globulin Ratio 0.3 (1.0-2.7) L Lipase 51 U/L (73-393) L Salicylates Level < 0.2 ug/mL (2.8-20) L Acetaminophen Level < 2 MCG/ML (10-30) L Serum Alcohol < 3 mg/dL Hepatitis A IgM Antibody Pending Hepatitis B Surface Antigen Pending Hepatitis B Core IgM Antibody Pending Hepatitis C Antibody Pending Urine Color Zohreh Urine Appearance Clear Urine pH 6.5 (4.5-8.0) Urine Specific [place] 1.010 (1.005-1.035) Urine Protein Negative (NEGATIVE) Urine Glucose (UA) Negative (NEGATIVE) Urine Ketones 1+ (NEGATIVE) H Urine Blood 1+ (NEGATIVE) H Urine Nitrite Negative (NEGATIVE) Urine Bilirubin Negative (NEGATIVE) Urine Ictotest Negative (NEGATIVE) Urine Urobilinogen 4 MG/DL (0.0-1.0) H Urine Leukocyte Esterase 1+ (NEGATIVE) H Urine RBC 0-2 /HPF (0 - 2) Urine WBC 0-2 /HPF (0 - 2) Urine Squamous Epithelial Cells Few /LPF (NONE/OCC) Urine Bacteria Occasional /HPF (NONE) Body Fluid Glucose Pending Body Fluid Total Protein Pending Height (Feet): 5 Height (Inches): 5.00 Weight (Pounds): 220 Medications Current Medications Medications (Trade) Dose Ordered Sig/Almaz Route PRN Reason Start Time Stop Time Status Last Admin Dose Admin Acetaminophen (Tylenol) 650 mg Q4H PRN ORAL fever 04/18/19 10:00 05/18/19 09:59 Cefepime HCl 2 gm/ Sodium Chloride 110 ml @ 220 mls/hr Q12H IV 04/18/19 08:15 04/19/19 08:14 04/18/19 09:22 Dextrose (Dextrose 50%) 25 ml Q30M PRN IV Hypoglycemia 04/18/19 10:00 05/18/19 09:53 Dextrose (Dextrose 50%) 50 ml Q30M PRN IV hypoglycemia 04/18/19 10:00 05/18/19 09:59 Dextrose/Sodium Chloride 1,000 ml @ 75 mls/hr [id number] IV 04/18/19 09:53 05/18/19 09:52 Diphenhydramine HCl (Benadryl) 25 mg Q6H PRN ORAL Itching/Pruritis 04/18/19 10:00 05/18/19 09:59 Lactulose (Cephulac) 30 gm THREE TIMES A DAY ORAL 04/18/19 13:00 05/18/19 12:59 Metronidazole 100 ml @ 100 mls/hr Q6H IV 04/18/19 08:15 04/19/19 08:14 04/18/19 08:50 Morphine Sulfate (Morphine Sulfate) 2 mg Q4H PRN IVP severe Pain (Pain Scale 7-10) 04/18/19 10:00 04/25/19 09:59 Nitroglycerin (Ntg) 0.4 mg Q5M X 3 DOSES PRN SL Prn Chest Pain 04/18/19 10:00 05/18/19 09:59 Ondansetron HCl (Zofran) 4 mg Q6H PRN IVP Nausea & Vomiting 04/18/19 10:00 05/18/19 09:59 Phytonadione 10 mg/Dextrose 56 ml @ 110 mls/hr ONCE IVPB 04/18/19 12:00 04/18/19 14:00 Polyethylene Glycol (Miralax) 17 gm HSPRN PRN ORAL Constipation 04/18/19 10:00 05/18/19 09:59 Rifaximin (Xifaxan) 550 mg EVERY 12 HOURS ORAL 04/18/19 21:00 04/25/19 20:59 Temazepam (Restoril) 15 mg HSPRN PRN ORAL Insomnia 04/18/19 10:00 04/25/19 09:59 Assessment/Plan Problem List: (1) Acute metabolic encephalopathy ICD Codes: G93.41 - Metabolic encephalopathy SNOMED: 69106409, 450350921 (2) Hepatic encephalopathy ICD Codes: K72.90 - Hepatic failure, unspecified without coma SNOMED: 09506966 (3) Ascites ICD Codes: R18.8 - Other ascites SNOMED: 165425087 Qualifiers: Qualified Codes: K70.31 - Alcoholic cirrhosis of liver with ascites (4) Anasarca ICD Codes: R60.1 - Generalized edema SNOMED: 669329872, 159554219 (5) Liver cirrhosis ICD Codes: K74.60 - Unspecified cirrhosis of liver SNOMED: 25447035 (6) ETOH abuse ICD Codes: F10.10 - Alcohol abuse, uncomplicated SNOMED: 13541253 Assessment/Plan: paracentesis, mccarty cultures rule out SBP GI evaluation symptomatic treatment poor prognosis considering very low ablumin and severe coagulopathy, recurrent hospitalization Shireen Khan MD Apr 18, 2019 12:14
[2019-04-18] MEDS ORDERED: Vancomycin 1.5gm vial IVPB ONE (13:16)
--- NOTE | 2019-04-18 13:34 | NUR ---
NURSE NOTES: Telephone report received from CHAVA Baker.
--- NOTE | 2019-04-18 13:34 | NUR ---
TRANSFER TO FLOOR: Patient transferred to SDU as ordered. Report given to Priyanka. Belongings given to the patient. Family and or S/O informed of transfer.
--- NOTE | 2019-04-18 13:34 | NUR ---
ED Nurse Note: Report given to Priyanka LARSEN from SDU.
--- NOTE | 2019-04-18 13:55 | NUR ---
NURSE NOTES: Received patient via gurney from ED. Observed patient awake, opens eyes to verbal stimuli, but disoriented. On room air, no apparent respiratory distress noted. Placed on radiation monitor, shows sinus rhythm at this time. Peripheral IV on right hand 20g intact and patent. IV fluids started as ordered. Placed pt on purewick for incontinence. Excoriation on right groin noted. Safety precautions in place, bed locked, alarmed, and in lowest position, side rails up x3, and call light left within reach. Patient's boyfriend at bedside. Orders noted from Dr Khan this morning, carried out. Will continue to monitor for patient.
--- NOTE | 2019-04-18 14:53 | Diagnostic Imaging Report ---
Indications: Ascites Technique: Emergency consent by the emergency room physician was provided. Ultrasound used to localize optimal puncture site. Sterile prepping and draping right lower quadrant. Local anesthesia with 1% lidocaine. Under real-time ultrasound guidance, puncture peritoneal space using paracentesis needle. Stylet removed. Catheter placed to vacuum bottle suction. Total 7.9 liters of clear yellow fluid aspirated. Patient tolerated procedure well, without immediate complication. Findings: Followup sonography demonstrates complete resolution of peritoneal fluid. Impression: Successful ultrasound-guided paracentesis, yielding 7.9 liters of fluid
[2019-04-18] MEDS: D5 1/2NS 1,000 ML IV SCH ×2 (15:09→23:24)
[2019-04-18] MEDS: Lactulose 20gm/30ml UDC ORAL SCH ×2 (15:29→15:31)
--- NOTE | 2019-04-18 15:30 | NUR ---
NURSE NOTES: Attempted to give Lactulose PO as ordered, patient spitting out medication and unable to swallow at this time. Miguelito HADOOP ANALYST notified and made aware awaiting for call back/orders.
--- NOTE | 2019-04-18 15:35 | Diagnostic Imaging Report ---
Indication: Abnormal liver function tests. Abnormal renal function test. History of cirrhosis and ascites Technique: Aponte-scale and duplex images of the upper abdomen were obtained Comparison: 03/11/2019; also abdomen pelvis CT 03/13/2019 Findings: Exam is limited due to body habitus and overlying bowel gas. Gallbladder is nondistended. It contains gallstones. There is apparent gallbladder wall thickening,, wall measuring up to 7 mm thick, although this could at least in part be an artifact of lack of distention. Sonographic Dodge's sign is negative. Common bile duct measures 5 mm in diameter. No intrahepatic biliary ductal dilatation. Liver demonstrates coarsened echogenicity. It demonstrates surface nodularity. There is questionably a hypoechoic mass in the left hepatic lobe which if real measures 4.77 m long axis dimension. There is suggestion of either absent or to and fro flow within the main portal vein. Antegrade flow is seen within the right portal vein. There is also suggestion of periportal collaterals, but these may be artifactual as no such finding is demonstrated on CT scan one month earlier. Pancreas is unremarkable. The spleen is enlarged, measuring 17.7 cm long axis dimension Left kidney measures 7.9 cm in length. Right kidney measures 9 cm length. Both kidneys demonstrate normal echogenicity. There is no hydronephrosis. No focal abnormality . Abdominal aorta is partially obscured by bowel gas, visualized portions are non-aneurysmal . There is trace ascites fluid present Impression: Evidence of hepatic cirrhosis, also previously described. Evidence of portal hypertension, with splenomegaly and trace ascites. Note apparent to and fro flow within the main portal vein also likely indicating portal hypertension Cholelithiasis. Gallbladder wall thickening, likely related to nondistention and the portal hypertension, but the possibility of acute cholecystitis should also be entertained. Consider hepatobiliary nuclear scan for further evaluation if there is high clinical suspicion 4.8 cm hypoechoic masslike structure in the left hepatic lobe. Possibly artifactual as no similar finding is demonstrated on prior CT scan. However, this could also represent interim development of a real finding such as mass or abscess, and consideration should be given for repeat contrast CT as clinically indicated. This finding was discussed by phone with Dr. Khan at the time of interpretation Note suboptimal visualization of the abdominal aorta
[2019-04-18 16:00] VITALS: BP 122/80
--- NOTE | 2019-04-18 16:00 | NUR ---
NURSE NOTES: Miguelito WEB APPLICATIONS PROGRAMMER called back with new orders; Lactulose to be given rectally and keep pt NPO at this time. Orders noted and carried out.
--- NOTE | 2019-04-18 16:47 | NUR ---
Social PsychologistMaterial Control Analyst 58 Y/O Female BIBA from Home CC: ALOC since yesterday. PT was seen here 04/16/19 for ascites SI: AMS VS: BP: 141/91 HR: 90 RR 16 02 Sat 98% (RA) T: 99.7 NT: Plt 91 PTT 15.0 INR 1.4 UR ERYTHROCY 1+ UR KETONES 1+ UR UROBILINOGEN 4 UR LEUKO 1+ SODIUM 133 BUN 33 CREATININE 2.2 MAGNESIUM 1.7 BILIRUBIN 2.7 AMMONIA 151 ALKAPHOS 289 LIPASE 51 NT-PROBNP 598 LACTIC ACID 3.60 SALICYLATE <0.2 CXR: There is increased elevation of the right hemidiaphragm. There is some atelectasis at the right lung base. US PARACENTESIS: Successful ultrasound-guided paracentesis, yielding 7.9 liters of fluid IS: none Admitted to SDU TELEMETRY status DCP: Pending Hospital Stay
[2019-04-18] MEDS ORDERED: Lactulose 20gm/30ml UDC RECTAL SCH (18:00)
--- NOTE | 2019-04-18 19:05 | NUR ---
HAND-OFF: Report given to CHAVA Mchugh. Patient in stable condition.
--- NOTE | 2019-04-18 19:10 | NUR ---
NURSE NOTES: Received patient from CHAVA Mathew. Will continue plan of care.
--- NOTE | 2019-04-18 19:16 | History & Physical ---
History and Physical History & Physicial Dictated for Int Med Dr Amador no. [id number]. Jose Benjamin MD Apr 18, 2019 19:16
[2019-04-18 20:00] VITALS: BP 136/46
[2019-04-19] VITALS (8 sets, daily range): BP systolic 108–147; BP diastolic 63–79
--- NOTE | 2019-04-19 02:15 | History and Physical Report ---
DATE OF ADMISSION: 04/18/2019 NOTE: INCOMPLETE DICTATION CHIEF COMPLAINT: The patient is a 58-year-old female, who presents with a chief complaint of altered mental status. HISTORY OF PRESENT ILLNESS: The patient was admitted to [facility] from March 11, 2019 to March 14, 2019. The patient was admitted with ascites and anasarca. The patient underwent paracentesis x2 at that time. Please see history and physical and discharge summary dictated at that time. The patient also has a history of gastrointestinal hemorrhage, status post endoscopy revealing a Dieulafoy lesion in the peripyloric region. This patient is status post hemostasis with hemoclips and epinephrine injection. The patient presented to [place] emergency room with a one-day history of altered mental status. The patient herself is unable to contribute much to the history and physical. The patient was admitted for altered mental status to rule out acute on chronic hepatic encephalopathy. REVIEW OF SYSTEMS: Unable to assess secondary to the patient's mental status. PAST MEDICAL HISTORY: Significant for: 1. Ascites. 2. Anasarca. 3. History of gastrointestinal hemorrhage secondary to Dieulafoy lesion in the peripyloric region, status post hemostasis with hemoclips and epinephrine injection. 4. Liver cirrhosis. 5. Hepatic encephalopathy. 6. Diabetes type 2. 7. Hypertension. 8. Alcohol dependence. PAST SURGICAL HISTORY: Significant for section x1. CURRENT MEDICATIONS: 1. Amlodipine 5 mg 1 tablet p.o. daily. 2. Atorvastatin 80 mg p.o. at bedtime. 3. Calcium carbonate plus D one tablet p.o. daily. 4. Celebrex 200 mg p.o. twice daily. 5. Cholestyramine 5 grams p.o. daily. 6. Iron sulfate 325 mg p.o. daily. 7. Folic acid 1 mg p.o. daily. 8. Lasix 40 mg p.o. daily. 9. Gabapentin 300 mg p.o. 3 times daily. 10. Hydroxyzine 18 10 mg p.o. twice daily. 11. Lantus insulin subcutaneously at bedtime. 12. Lactulose 15 g p.o. q.8 hours. 13. Prevacid 15 mg p.o. daily. 14. Losartan 100 mg p.o. daily. 15. Metformin 1000 mg p.o. twice daily. 16. Omeprazole 20 mg p.o. daily. 17. Xifaxan 550 mg p.o. twice daily. 18. Spironolactone 50 mg p.o. daily. ALLERGIES: No known drug allergies. SOCIAL HISTORY: The patient is a . The patient denies tobacco use. The patient admits to alcohol use, however, amount is unknown. PHYSICAL EXAMINATION: VITAL SIGNS: Temperature 99.7, respirations 16, pulse 90, and blood pressure 141/91. GENERALLY: The patient is a well-developed and well-nourished obese female, in no apparent distress. HEENT: Eyes, pupils are equal and responsive to light and accommodation. Extraocular movements are intact. NECK: Supple without lymphadenopathy. CHEST: Lungs are clear to auscultation bilaterally without wheezes or rales. CARDIOVASCULAR: Regular rhythm and rate. S1, S2 are normal without murmurs, rubs, or gallops. ABDOMEN: Soft and distended with fluid wave present. No evidence of hepatosplenomegaly. Currently, no rebound or guarding noted. EXTREMITIES: Negative for clubbing, cyanosis, or edema. RECTAL/GENITAL: Not performed. NEUROLOGIC: Cranial nerves II through XII are grossly intact without focal deficits. LABORATORY STUDIES: WBC 7.5, hemoglobin 10.6, hematocrit 34.3, and platelets 96,000. Sodium 133, potassium 4.3, chloride 99, CO2 23, BUN 33, creatinine 2.2, and glucose 83. Lactic acid 3.60. Jose Benjamin M.D. DR: MARTIN JOB#: [id number] CC:
--- NOTE | 2019-04-19 02:45 | History and Physical Report ---
DATE OF ADMISSION: 04/18/2019 CHIEF COMPLAINT: The patient is a 58-year-old female, who presents with a chief complaint of altered mental status. HISTORY OF PRESENT ILLNESS: The patient was admitted to [facility] from March 11, 2019 to March 14, 2019. The patient was admitted at that time with ascites. The patient is status post paracentesis x2 during that hospitalization. The patient herself is unable to contribute much to the history and physical. Much of the history and physical is obtained from the patient's chart. The patient apparently began to have altered mental status approximately 1 day ago. The patient presented to [place] emergency room. The patient is admitted with ascites for probable paracentesis. Altered mental status presumably secondary to hepatic encephalopathy. REVIEW OF SYSTEMS: Unable to assess secondary to the patient's mental status. PAST MEDICAL HISTORY: Significant for: 1. Gastrointestinal hemorrhage secondary to Dieulafoy lesion of the peripyloric region, status post hemostasis with hemoclip and epinephrine injection. 2. Alcoholic liver cirrhosis. 3. Hepatic encephalopathy. 4. Thrombocytopenia. 5. Alcohol dependence. 6. Diabetes type 2. 7. Hypertension. PAST SURGICAL HISTORY: Significant for section x1. CURRENT MEDICATIONS: 1. Calcium carbonate 1 tablet p.o. daily. 2. Amlodipine 5 mg p.o. daily. 3. Atorvastatin 40 mg p.o. at bedtime. 4. Celebrex 200 mg p.o. twice daily. 5. Cholestyramine 5 grams p.o. daily. 6. Iron sulfate 325 mg p.o. daily. 7. Folic acid 1 mg p.o. daily. 8. Lasix 40 mg p.o. daily. 9. Gabapentin 300 mg p.o. 3 times daily. 10. Hydroxyzine 10 mg p.o. twice daily. 11. Lantus insulin of an unknown dose at bedtime. 12. Lactulose 15 gram p.o. q.8 hours. 13. Prevacid 15 mg p.o. daily. 14. Losartan 100 mg p.o. daily. 15. Metformin 1000 mg p.o. twice daily. 16. Omeprazole 20 mg p.o. twice daily. 17. Xifaxan 550 mg p.o. twice daily. 18. Aldactone 50 mg p.o. daily. ALLERGIES: No known drug allergies. SOCIAL HISTORY: The patient is single. The patient denies tobacco use. The patient admits to alcohol abuse, however, the exact amount is unknown. PHYSICAL EXAMINATION: VITAL SIGNS: Temperature 99.7, respirations 16, pulse 90, and blood pressure 141/91. GENERAL: The patient is a well-developed and well-nourished obese female, in no apparent distress. HEENT: Eyes, pupils are equal and responsive to light and accommodation. Extraocular movements are intact. NECK: Supple without lymphadenopathy. CHEST: Lungs are clear to auscultation bilaterally without wheezes or rales. CARDIOVASCULAR: Regular rhythm and rate. S1, S2 are normal without murmurs, rubs, or gallops. ABDOMEN: Soft, distended with fluid wave present. No evidence of hepatosplenomegaly. Currently, no rebound or guarding noted. EXTREMITIES: Negative for clubbing, cyanosis, or edema. RECTAL/GENITAL: Not performed. NEUROLOGIC: Cranial nerves II through XII grossly intact without focal deficits. LABORATORY STUDIES: WBC 7.5, hemoglobin 10.6, hematocrit 34.3, and platelets 96,000. Sodium 133, potassium 4.3, chloride 99, CO2 23, BUN 33, creatinine 2.2, and glucose 83. Lactic acid 3.60. Liver function tests elevated with total bilirubin 2.7 and direct bilirubin 1.7. AST elevated at 44, alkaline phosphatase elevated at 289. Ammonia elevated at 151. Protime 15.0. INR 1.4. PTT 29. ASSESSMENT: This is a 58-year-old female. 1. Altered mental status. 2. Ascites. 3. Edema. 4. Acute renal failure. 5. History of gastrointestinal hemorrhage. 6. Liver cirrhosis. 7. Hepatic encephalopathy. 8. Diabetes type 2. 9. Hypertension. 10. Alcohol dependence. TREATMENT: 1. Altered mental status. This may be secondary to elevated ammonia level as above. The patient has been started empirically on lactulose. A Gastroenterology consultation has been obtained with Dr. Jon Torres. We will follow recommendations of Gastroenterology. 2. Ascites/edema. This is probably secondary to liver failure as above. 3. Renal failure. A Nephrology consultation has been obtained with Dr. Byers. This is probably hepatorenal failure. 4. History of gastrointestinal hemorrhage. As above, a Gastroenterology consultation has been obtained with Dr. Jon Torres. The patient is status post endoscopy with hemostasis of Dieulafoy lesion. 5. Liver cirrhosis. As above, a gastroenterology consultation has been obtained with Dr. Jon Torres. 6. Hepatic encephalopathy. Continue Xifaxan and lactulose as above. 7. Diabetes type 2. A NovoLog sliding scale has been instituted. 8. Hypertension. Continue amlodipine as above. 9. Alcohol dependence. Jose Benjamin M.D. DR: MARTIN JOB#: [id number] CC:
--- NOTE | 2019-04-19 04:30 | NUR ---
NURSE NOTES: Transferred patient to TELE 209-2. Report given to CHAVA Schreiber, belongings accounted for at bedside. Patient is stable.
--- NOTE | 2019-04-19 04:40 | NUR ---
NURSE NOTES: Received pt from CHAVA Mchugh. Belongings accounted for at bedside. Patient is stable, VSS, on room air, alert x 0-1, eyes closed, responsive to name, touch.. IV patent. belongings accounted for at bedside. Patient is stable.
[2019-04-19] MEDS ORDERED: Nitroglycerin Subl 0.4mg tab SL PRN ×2 (04:45→23:00)
[2019-04-19] MEDS: D5 1/2NS 1,000 ML IV SCH ×4 (04:45→23:39)
[2019-04-19 04:59] LABS: HEMATOCRIT 28.2 % (37.0-47.0); HEMOGLOBIN 8.3 G/DL (12.0-16.0); MEAN CORPUSCULAR VOLUME 85 FL (80-99); PLATELET COUNT 62 K/UL (150-450); RED CELL DISTRIBUTION WIDTH 18.8 % (11.6-14.8); WHITE BLOOD COUNT 5.1 K/UL (4.8-10.8)
[2019-04-19] MEDS ORDERED: Morphine Sulfate 2mg/ml Inj(IV/IM USE ONLY) IVP PRN (05:00)
[2019-04-19 07:09] LABS: ALANINE AMINOTRANSFERASE 22 U/L (12-78); ALBUMIN 1.5 G/DL (3.4-5.0); ALBUMIN/GLOBULIN RATIO 0.3 (1.0-2.7); ALKALINE PHOSPHATASE 239 U/L (46-116); ANION GAP 9 mmol/L (5-15); ASPARTATE AMINO TRANSFERASE 35 U/L (15-37); BILIRUBIN,DIRECT 1.5 MG/DL (0.0-0.3); BILIRUBIN,TOTAL 2.3 MG/DL (0.2-1.0); BLOOD UREA NITROGEN 29 mg/dL (7-18); CALCIUM 8.2 MG/DL (8.5-10.1); CARBON DIOXIDE 24 MMOL/L (21-32); CHLORIDE 107 MMOL/L (98-107); CREATININE 1.8 MG/DL (0.55-1.30); POTASSIUM 3.4 MMOL/L (3.5-5.1); SODIUM 140 MMOL/L (136-145)
--- NOTE | 2019-04-19 07:59 | NUR ---
HAND-OFF: Report given to CHAVA Pearson.
--- NOTE | 2019-04-19 08:02 | NUR ---
NURSE NOTES: pt. laying in bed eyes open non verbal. Pt on newsperson, no signs of cardiac or respiratory distress. Bed is locked and in lowest position. Call light is within reach. Labs were drawn this morning but were contaminated, therefore were repeated. Awaiting for new lab value results. Will continue to monitor pt and lab values.
[2019-04-19] MEDS ORDERED: Lactulose 20gm/30ml UDC RECTAL SCH (09:00)
[2019-04-19 09:15] LABS: HEMATOCRIT 36.4 % (37.0-47.0); HEMOGLOBIN 11.1 G/DL (12.0-16.0); MEAN CORPUSCULAR VOLUME 81 FL (80-99); PLATELET COUNT 72 K/UL (150-450); RED BLOOD COUNT 4.47 M/UL (4.20-5.40); RED CELL DISTRIBUTION WIDTH 18.3 % (11.6-14.8); WHITE BLOOD COUNT 4.5 K/UL (4.8-10.8)
[2019-04-19] MEDS: Cefepime HCl 2 GM in NS 110 ML IV SCH ×2 (09:20→20:37)
[2019-04-19 09:23] LABS: ANION GAP 8 mmol/L (5-15); BLOOD UREA NITROGEN 27 mg/dL (7-18); CALCIUM 8.2 MG/DL (8.5-10.1); CARBON DIOXIDE 24 MMOL/L (21-32); CHLORIDE 104 MMOL/L (98-107); CREATININE 1.8 MG/DL (0.55-1.30); POTASSIUM 3.5 MMOL/L (3.5-5.1); SODIUM 136 MMOL/L (136-145)
[2019-04-19 09:34] LABS: ALANINE AMINOTRANSFERASE 23 U/L (12-78); ALBUMIN 1.5 G/DL (3.4-5.0); ALBUMIN/GLOBULIN RATIO 0.3 (1.0-2.7); ALKALINE PHOSPHATASE 251 U/L (46-116); ASPARTATE AMINO TRANSFERASE 37 U/L (15-37); BILIRUBIN,TOTAL 2.3 MG/DL (0.2-1.0)
[2019-04-19 09:38] LABS: BILIRUBIN,DIRECT 1.5 MG/DL (0.0-0.3)
[2019-04-19] MEDS ORDERED: Miralax 17gm pkt ORAL PRN (10:00)
--- NOTE | 2019-04-19 10:14 | GI Progress Note ---
Assessment/Plan Problems: (1) Acute metabolic encephalopathy ICD Codes: G93.41 - Metabolic encephalopathy SNOMED: 65700900, 971215528 (2) Liver cirrhosis ICD Codes: K74.60 - Unspecified cirrhosis of liver SNOMED: 06919824 (3) Abdominal pain ICD Codes: R10.9 - Unspecified abdominal pain SNOMED: 29934525 (4) Altered mental status ICD Codes: R41.82 - Altered mental status, unspecified SNOMED: 159332904 Qualifiers: Qualified Codes: R41.82 - Altered mental status, unspecified (5) Ascites ICD Codes: R18.8 - Other ascites SNOMED: 843573870 Qualifiers: Qualified Codes: K70.31 - Alcoholic cirrhosis of liver with ascites (6) Anasarca ICD Codes: R60.1 - Generalized edema SNOMED: 823388266, 839895383 (7) Hepatic encephalopathy ICD Codes: K72.90 - Hepatic failure, unspecified without coma SNOMED: 16700734 Status: progressing Status Narrative Discussed with Dr. Torres. Assessment/Plan s/p paracentesis in the ED >> yielding 7.9L s/p EGD 02/04/19 with active bleed from Dieulaf[place] lesion May need repeat endoscopy. albumin replaced OB stool r/o GI bleed monitor H&H, prn transfusions bowel regimen ppi lactulose + xifaxan adv diet, will consider NGT placement if patient does not tolerate PO fu labs The patient was seen and examined at bedside and all new and available data was reviewed in the patients chart. I agree with the above findings, impression and plan. (Patient seen earlier today. Signature stamp does not reflect patient encounter time.). - Jon Torres MD Subjective Subjective ROS limited Objective Last 24 Hour Vital Signs Date Time Temp Pulse Resp B/P (MAP) Pulse Ox O2 Delivery O2 Flow Rate FiO2 04/19/19 05:00 Room Air 04/19/19 04:30 97.7 83 20 147/77 (100) 95 04/19/19 04:00 81 04/19/19 04:00 97.7 83 20 133/79 (97) 100 04/19/19 00:00 96.6 81 20 136/76 (96) 97 04/18/19 23:57 79 04/18/19 21:00 Room Air 04/18/19 20:00 97.3 81 20 136/46 (76) 100 04/18/19 20:00 79 04/18/19 16:00 98.2 84 20 122/80 (94) 99 04/18/19 15:36 85 04/18/19 14:23 81 04/18/19 14:21 Room Air Intake and Output 04/18/19 04/19/19 19:00 07:00 Intake Total 444.75 ml 530 ml Balance 444.75 ml 530 ml Intake Oral 0 ml IV Total 444.75 ml 530 ml # Voids 1 # Bowel Movements 2 3 Laboratory Tests Test 04/18/19 10:15 04/18/19 13:15 04/18/19 19:15 04/18/19 23:00 Body Fluid Glucose Pending Body Fluid Total Protein Pending Lactic Acid Level 2.80 mmol/L (0.66-2.22) H 2.80 mmol/L (0.4-2.0) H Stool Occult Blood Pending Test 04/19/19 03:00 04/19/19 06:40 04/19/19 09:05 04/19/19 09:50 White Blood Count 5.1 K/UL (4.8-10.8) 4.5 K/UL (4.8-10.8) L Red Blood Count 3.30 M/UL (4.20-5.40) L 4.47 M/UL (4.20-5.40) Hemoglobin 8.3 G/DL (12.0-16.0) L 11.1 G/DL (12.0-16.0) #L Hematocrit 28.2 % (37.0-47.0) L 36.4 % (37.0-47.0) L Mean Corpuscular Volume 85 FL (80-99) 81 FL (80-99) Mean Corpuscular Hemoglobin 25.1 PG (27.0-31.0) L 24.7 PG (27.0-31.0) L Mean Corpuscular Hemoglobin Concent 29.4 G/DL (32.0-36.0) L 30.4 G/DL (32.0-36.0) L Red Cell Distribution Width 18.8 % (11.6-14.8) H 18.3 % (11.6-14.8) H Platelet Count 62 K/UL (150-450) L 72 K/UL (150-450) L Mean Platelet Volume 7.3 FL (6.5-10.1) 7.4 FL (6.5-10.1) Neutrophils (%) (Auto) % (45.0-75.0) % (45.0-75.0) Lymphocytes (%) (Auto) % (20.0-45.0) % (20.0-45.0) Monocytes (%) (Auto) % (1.0-10.0) % (1.0-10.0) Eosinophils (%) (Auto) % (0.0-3.0) % (0.0-3.0) Basophils (%) (Auto) % (0.0-2.0) % (0.0-2.0) Differential Total Cells Counted 100 100 Neutrophils % (Manual) 76 % (45-75) H 69 % (45-75) Lymphocytes % (Manual) 19 % (20-45) L 24 % (20-45) Monocytes % (Manual) 5 % (1-10) 6 % (1-10) Eosinophils % (Manual) 0 % (0-3) 1 % (0-3) Basophils % (Manual) 0 % (0-2) 0 % (0-2) Band Neutrophils 0 % (0-8) 0 % (0-8) Platelet Estimate Decreased L Decreased L Platelet Morphology Normal Normal Polychromasia 1+ 1+ Hypochromasia 1+ 1+ Anisocytosis 1+ 1+ Activated Partial Thromboplast Time 37 SEC (23-33) H Sodium Level 140 MMOL/L (136-145) 136 MMOL/L (136-145) Potassium Level 3.4 MMOL/L (3.5-5.1) L 3.5 MMOL/L (3.5-5.1) Chloride Level 107 MMOL/L (98-107) 104 MMOL/L (98-107) Carbon Dioxide Level 24 MMOL/L (21-32) 24 MMOL/L (21-32) Anion Gap 9 mmol/L (5-15) 8 mmol/L (5-15) Blood Urea Nitrogen 29 mg/dL (7-18) H 27 mg/dL (7-18) H Creatinine 1.8 MG/DL (0.55-1.30) H 1.8 MG/DL (0.55-1.30) H Estimat Glomerular Filtration Rate 29.0 mL/min (>60) 29.0 mL/min (>60) Glucose Level 129 MG/DL (74-106) H 119 MG/DL (74-106) H Calcium Level 8.2 MG/DL (8.5-10.1) L 8.2 MG/DL (8.5-10.1) L Total Bilirubin 2.3 MG/DL (0.2-1.0) H 2.3 MG/DL (0.2-1.0) H Direct Bilirubin 1.5 MG/DL (0.0-0.3) H 1.5 MG/DL (0.0-0.3) H Aspartate Amino Transf (AST/SGOT) 35 U/L (15-37) 37 U/L (15-37) Alanine Aminotransferase (ALT/SGPT) 22 U/L (12-78) 23 U/L (12-78) Alkaline Phosphatase 239 U/L (46-116) H 251 U/L (46-116) H Total Protein 6.6 G/DL (6.4-8.2) 6.9 G/DL (6.4-8.2) Albumin 1.5 G/DL (3.4-5.0) L 1.5 G/DL (3.4-5.0) L Globulin 5.1 g/dL 5.4 g/dL Albumin/Globulin Ratio 0.3 (1.0-2.7) L 0.3 (1.0-2.7) L Ammonia Pending Height (Feet): 5 Height (Inches): 5.00 Weight (Pounds): 220 General Appearance: no apparent distress, alert, obese Cardiovascular: normal rate Respiratory/Chest: normal breath sounds, no respiratory distress Abdominal Exam: normal bowel sounds, non tender, soft Extremities: non-tender Indu Lane NP Apr 19, 2019 10:14
--- NOTE | 2019-04-19 10:56 | Pulmonology Progress Note ---
Assessment/Plan Problems: (1) Acute metabolic encephalopathy (2) Hepatic encephalopathy (3) Ascites (4) Anasarca (5) Liver cirrhosis (6) ETOH abuse Assessment/Plan paracentesis done mccarty cultures pending renal w/u ID to follow rule out SBP GI evaluation symptomatic treatment Subjective Interval Events: awake, not following commands Allergies: Coded Allergies: No Known Allergies (Unverified , 01/31/19) Objective Last 24 Hour Vital Signs Date Time Temp Pulse Resp B/P (MAP) Pulse Ox O2 Delivery O2 Flow Rate FiO2 04/19/19 05:00 Room Air 04/19/19 04:30 97.7 83 20 147/77 (100) 95 04/19/19 04:00 81 04/19/19 04:00 97.7 83 20 133/79 (97) 100 04/19/19 00:00 96.6 81 20 136/76 (96) 97 04/18/19 23:57 79 04/18/19 21:00 Room Air 04/18/19 20:00 97.3 81 20 136/46 (76) 100 04/18/19 20:00 79 04/18/19 16:00 98.2 84 20 122/80 (94) 99 04/18/19 15:36 85 04/18/19 14:23 81 04/18/19 14:21 Room Air Intake and Output 04/18/19 04/19/19 19:00 07:00 Intake Total 444.75 ml 530 ml Balance 444.75 ml 530 ml Intake Oral 0 ml IV Total 444.75 ml 530 ml # Voids 1 # Bowel Movements 2 3 General Appearance: WD/WN HEENT: normocephalic, atraumatic Respiratory/Chest: chest wall non-tender, lungs clear Breasts: no masses Cardiovascular: normal peripheral pulses, normal rate Abdomen: normal bowel sounds, soft, non tender, no organomegaly Genitourinary: normal external genitalia 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 Laboratory Tests 04/18/19 13:15: Lactic Acid Level 2.80H 04/18/19 19:15: Lactic Acid Level 2.80H 04/18/19 23:00: Stool Occult Blood [Pending] 04/19/19 03:00: White Blood Count 5.1, Red Blood Count 3.30L, Hemoglobin 8.3L, Hematocrit 28.2L , Mean Corpuscular Volume 85, Mean Corpuscular Hemoglobin 25.1L, Mean Corpuscular Hemoglobin Concent 29.4L, Red Cell Distribution Width 18.8H, Platelet Count 62L, Mean Platelet Volume 7.3, Neutrophils (%) (Auto) , Lymphocytes (%) (Auto) , Monocytes (%) (Auto) , Eosinophils (%) (Auto) , Basophils (%) (Auto) , Differential Total Cells Counted 100, Neutrophils % ( Manual) 76H, Lymphocytes % (Manual) 19L, Monocytes % (Manual) 5, Eosinophils % ( Manual) 0, Basophils % (Manual) 0, Band Neutrophils 0, Platelet Estimate DecreasedL, Platelet Morphology Normal, Polychromasia 1+, Hypochromasia 1+, Anisocytosis 1+, Activated Partial Thromboplast Time 37H 04/19/19 06:40: Sodium Level 140, Potassium Level 3.4L, Chloride Level 107, Carbon Dioxide Level 24, Anion Gap 9, Blood Urea Nitrogen 29H, Creatinine 1.8H, Estimat Glomerular Filtration Rate 29.0, Glucose Level 129H, Calcium Level 8.2L, Total Bilirubin 2.3H, Direct Bilirubin 1.5H, Aspartate Amino Transf (AST/SGOT) 35, Alanine Aminotransferase (ALT/SGPT) 22, Alkaline Phosphatase 239H, Total Protein 6.6, Albumin 1.5L, Globulin 5.1, Albumin/Globulin Ratio 0.3L 04/19/19 09:05: Sodium Level 136, Potassium Level 3.5, Chloride Level 104, Carbon Dioxide Level 24, Anion Gap 8, Blood Urea Nitrogen 27H, Creatinine 1.8H, Estimat Glomerular Filtration Rate 29.0, Glucose Level 119H, Calcium Level 8.2L, Total Bilirubin 2.3H, Direct Bilirubin 1.5H, Aspartate Amino Transf (AST/SGOT) 37, Alanine Aminotransferase (ALT/SGPT) 23, Alkaline Phosphatase 251H, Total Protein 6.9, Albumin 1.5L, Globulin 5.4, Albumin/Globulin Ratio 0.3L, White Blood Count 4.5L , Red Blood Count 4.47, Hemoglobin 11.1#L, Hematocrit 36.4L, Mean Corpuscular Volume 81, Mean Corpuscular Hemoglobin 24.7L, Mean Corpuscular Hemoglobin Concent 30.4L, Red Cell Distribution Width 18.3H, Platelet Count 72L, Mean Platelet Volume 7.4, Neutrophils (%) (Auto) , Lymphocytes (%) (Auto) , Monocytes (%) (Auto) , Eosinophils (%) (Auto) , Basophils (%) (Auto) , Differential Total Cells Counted 100, Neutrophils % (Manual) 69, Lymphocytes % ( Manual) 24, Monocytes % (Manual) 6, Eosinophils % (Manual) 1, Basophils % ( Manual) 0, Band Neutrophils 0, Platelet Estimate DecreasedL, Platelet Morphology Normal, Polychromasia 1+, Hypochromasia 1+, Anisocytosis 1+ 04/19/19 09:50: Ammonia 105H Current Medications Medications (Trade) Dose Ordered Sig/Almaz Route PRN Reason Start Time Stop Time Status Last Admin Dose Admin Acetaminophen (Tylenol) 650 mg Q4H PRN ORAL fever 04/19/19 06:00 05/18/19 09:59 Albumin Human 50 ml @ 50 mls/hr ONCE ONCE IV 04/19/19 10:00 04/19/19 10:59 04/19/19 10:21 Cefepime HCl 2 gm/ Sodium Chloride 110 ml @ 220 mls/hr Q12H IV 04/19/19 08:15 04/20/19 08:14 04/19/19 09:20 Dextrose (Dextrose 50%) 25 ml Q30M PRN IV Hypoglycemia 04/19/19 05:00 05/18/19 09:53 Dextrose (Dextrose 50%) 50 ml Q30M PRN IV hypoglycemia 04/19/19 05:00 05/18/19 09:59 Dextrose/Sodium Chloride 1,000 ml @ 75 mls/hr [id number] IV 04/19/19 04:45 05/18/19 09:52 Diphenhydramine HCl (Benadryl) 25 mg Q6H PRN ORAL Itching/Pruritis 04/19/19 05:00 05/18/19 04:59 Lactulose (Cephulac) 30 gm THREE TIMES A DAY ORAL 04/19/19 13:00 05/19/19 12:59 Morphine Sulfate (Morphine Sulfate) 2 mg Q4H PRN IVP severe Pain (Pain Scale 7-10) 04/19/19 05:00 04/25/19 04:59 Nitroglycerin (Ntg) 0.4 mg Q5M X 3 DOSES PRN SL Prn Chest Pain 04/19/19 04:45 05/18/19 09:59 Ondansetron HCl (Zofran) 4 mg Q6H PRN IVP Nausea & Vomiting 04/19/19 05:00 05/18/19 04:59 Polyethylene Glycol (Miralax) 17 gm HSPRN PRN ORAL Constipation 04/19/19 10:00 05/18/19 09:59 Rifaximin (Xifaxan) 550 mg EVERY 12 HOURS ORAL 04/19/19 09:00 04/25/19 20:59 Temazepam (Restoril) 15 mg HSPRN PRN ORAL Insomnia 04/19/19 10:00 04/25/19 09:59 Shireen Khan MD Apr 19, 2019 10:56
--- NOTE | 2019-04-19 11:06 | Cardiology Report ---
APPROVED REPORT EKG Measurement Heart [id number] Normal sinus rhythm Incomplete right bundle branch block Left anterior fascicular block Septal infarct, age undetermined Abnormal ECG
[2019-04-19 11:10] LABS: CREATINE KINASE 72 U/L (26-308)
[2019-04-19] MEDS: Lactulose 20gm/30ml UDC ORAL SCH ×2 (13:35→17:32)
--- NOTE | 2019-04-19 16:18 | Diagnostic Imaging Report ---
Indication: Abnormal renal function tests Technique: Grayscale and duplex images of the kidneys, retroperitoneum, and bladder were obtained. Comparison: Abdominal sonogram 04/18/2019 Findings: Right kidney measures 8.8 cm in length. Left kidney measures 8.2 cm in length. Both kidneys demonstrate normal echogenicity. No hydronephrosis. No focal abnormality. Normal inferior vena cava. Bladder is normal. Also noted is abdominal and pelvic ascites and irregular hepatic surface consistent with cirrhosis, also previously described Impression: Negative for hydronephrosis Ascites and hepatic cirrhosis incidentally noted, also reported on prior imaging studies.
--- NOTE | 2019-04-19 16:53 | Internal Med Progress Note ---
Subjective Date of Service: Apr 19, 2019 Physician Name Benjamin,Jose Attending Physician Goldy Amador MD Current Medications Medications (Trade) Dose Ordered Sig/Almaz Route PRN Reason Start Time Stop Time Status Last Admin Dose Admin Acetaminophen (Tylenol) 650 mg Q4H PRN ORAL fever 04/19/19 06:00 05/18/19 09:59 Cefepime HCl 2 gm/ Sodium Chloride 110 ml @ 220 mls/hr Q12H IV 04/19/19 08:15 04/20/19 08:14 04/19/19 09:20 Dextrose (Dextrose 50%) 25 ml Q30M PRN IV Hypoglycemia 04/19/19 05:00 05/18/19 09:53 Dextrose (Dextrose 50%) 50 ml Q30M PRN IV hypoglycemia 04/19/19 05:00 05/18/19 09:59 Dextrose/Sodium Chloride 1,000 ml @ 75 mls/hr [id number] IV 04/19/19 04:45 05/18/19 09:52 04/19/19 14:50 Diphenhydramine HCl (Benadryl) 25 mg Q6H PRN ORAL Itching/Pruritis 04/19/19 05:00 05/18/19 04:59 Lactulose (Cephulac) 30 gm THREE TIMES A DAY ORAL 04/19/19 13:00 05/19/19 12:59 04/19/19 13:35 Morphine Sulfate (Morphine Sulfate) 2 mg Q4H PRN IVP severe Pain (Pain Scale 7-10) 04/19/19 05:00 04/25/19 04:59 Nitroglycerin (Ntg) 0.4 mg Q5M X 3 DOSES PRN SL Prn Chest Pain 04/19/19 04:45 05/18/19 09:59 Ondansetron HCl (Zofran) 4 mg Q6H PRN IVP Nausea & Vomiting 04/19/19 05:00 05/18/19 04:59 Polyethylene Glycol (Miralax) 17 gm HSPRN PRN ORAL Constipation 04/19/19 10:00 05/18/19 09:59 Rifaximin (Xifaxan) 550 mg EVERY 12 HOURS ORAL 04/19/19 09:00 04/25/19 20:59 Temazepam (Restoril) 15 mg HSPRN PRN ORAL Insomnia 04/19/19 10:00 04/25/19 09:59 Allergies: Coded Allergies: No Known Allergies (Unverified , 01/31/19) ROS Limited/Unobtainable: No Constitutional: Reports: no symptoms HEENT: Reports: no symptoms Cardiovascular: Reports: no symptoms Respiratory: Reports: no symptoms Gastrointestinal/Abdominal: Reports: no symptoms Genitourinary: Reports: no symptoms Neurologic/Psychiatric: Reports: no symptoms Subjective 58 YO F admitted with altered mental status and ascites. S/P paracentesis . Cover for Int [facility]-Dr Amador Objective Last Vital Signs Date Time Temp Pulse Resp B/P (MAP) Pulse Ox O2 Delivery O2 Flow Rate FiO2 04/19/19 12:00 80 04/19/19 12:00 97.7 18 128/76 (93) 96 04/19/19 09:00 Room Air Laboratory Tests Test 04/18/19 19:15 04/18/19 23:00 04/19/19 03:00 04/19/19 06:40 Lactic Acid Level 2.80 mmol/L (0.4-2.0) H Stool Occult Blood Positive (NEGATIVE) White Blood Count 5.1 K/UL (4.8-10.8) Red Blood Count 3.30 M/UL (4.20-5.40) L Hemoglobin 8.3 G/DL (12.0-16.0) L Hematocrit 28.2 % (37.0-47.0) L Mean Corpuscular Volume 85 FL (80-99) Mean Corpuscular Hemoglobin 25.1 PG (27.0-31.0) L Mean Corpuscular Hemoglobin Concent 29.4 G/DL (32.0-36.0) L Red Cell Distribution Width 18.8 % (11.6-14.8) H Platelet Count 62 K/UL (150-450) L Mean Platelet Volume 7.3 FL (6.5-10.1) Neutrophils (%) (Auto) % (45.0-75.0) Lymphocytes (%) (Auto) % (20.0-45.0) Monocytes (%) (Auto) % (1.0-10.0) Eosinophils (%) (Auto) % (0.0-3.0) Basophils (%) (Auto) % (0.0-2.0) Differential Total Cells Counted 100 Neutrophils % (Manual) 76 % (45-75) H Lymphocytes % (Manual) 19 % (20-45) L Monocytes % (Manual) 5 % (1-10) Eosinophils % (Manual) 0 % (0-3) Basophils % (Manual) 0 % (0-2) Band Neutrophils 0 % (0-8) Platelet Estimate Decreased L Platelet Morphology Normal Polychromasia 1+ Hypochromasia 1+ Anisocytosis 1+ Activated Partial Thromboplast Time 37 SEC (23-33) H Sodium Level 140 MMOL/L (136-145) Potassium Level 3.4 MMOL/L (3.5-5.1) L Chloride Level 107 MMOL/L (98-107) Carbon Dioxide Level 24 MMOL/L (21-32) Anion Gap 9 mmol/L (5-15) Blood Urea Nitrogen 29 mg/dL (7-18) H Creatinine 1.8 MG/DL (0.55-1.30) H Estimat Glomerular Filtration Rate 29.0 mL/min (>60) Glucose Level 129 MG/DL (74-106) H Calcium Level 8.2 MG/DL (8.5-10.1) L Total Bilirubin 2.3 MG/DL (0.2-1.0) H Direct Bilirubin 1.5 MG/DL (0.0-0.3) H Aspartate Amino Transf (AST/SGOT) 35 U/L (15-37) Alanine Aminotransferase (ALT/SGPT) 22 U/L (12-78) Alkaline Phosphatase 239 U/L (46-116) H Total Protein 6.6 G/DL (6.4-8.2) Albumin 1.5 G/DL (3.4-5.0) L Globulin 5.1 g/dL Albumin/Globulin Ratio 0.3 (1.0-2.7) L Test 04/19/19 09:05 04/19/19 09:50 04/19/19 11:10 White Blood Count 4.5 K/UL (4.8-10.8) L Red Blood Count 4.47 M/UL (4.20-5.40) Hemoglobin 11.1 G/DL (12.0-16.0) #L Hematocrit 36.4 % (37.0-47.0) L Mean Corpuscular Volume 81 FL (80-99) Mean Corpuscular Hemoglobin 24.7 PG (27.0-31.0) L Mean Corpuscular Hemoglobin Concent 30.4 G/DL (32.0-36.0) L Red Cell Distribution Width 18.3 % (11.6-14.8) H Platelet Count 72 K/UL (150-450) L Mean Platelet Volume 7.4 FL (6.5-10.1) Neutrophils (%) (Auto) % (45.0-75.0) Lymphocytes (%) (Auto) % (20.0-45.0) Monocytes (%) (Auto) % (1.0-10.0) Eosinophils (%) (Auto) % (0.0-3.0) Basophils (%) (Auto) % (0.0-2.0) Differential Total Cells Counted 100 Neutrophils % (Manual) 69 % (45-75) Lymphocytes % (Manual) 24 % (20-45) Monocytes % (Manual) 6 % (1-10) Eosinophils % (Manual) 1 % (0-3) Basophils % (Manual) 0 % (0-2) Band Neutrophils 0 % (0-8) Platelet Estimate Decreased L Platelet Morphology Normal Polychromasia 1+ Hypochromasia 1+ Anisocytosis 1+ Sodium Level 136 MMOL/L (136-145) Potassium Level 3.5 MMOL/L (3.5-5.1) Chloride Level 104 MMOL/L (98-107) Carbon Dioxide Level 24 MMOL/L (21-32) Anion Gap 8 mmol/L (5-15) Blood Urea Nitrogen 27 mg/dL (7-18) H Creatinine 1.8 MG/DL (0.55-1.30) H Estimat Glomerular Filtration Rate 29.0 mL/min (>60) Glucose Level 119 MG/DL (74-106) H Uric Acid 13.7 MG/DL (2.6-7.2) H Calcium Level 8.2 MG/DL (8.5-10.1) L Total Bilirubin 2.3 MG/DL (0.2-1.0) H Direct Bilirubin 1.5 MG/DL (0.0-0.3) H Aspartate Amino Transf (AST/SGOT) 37 U/L (15-37) Alanine Aminotransferase (ALT/SGPT) 23 U/L (12-78) Alkaline Phosphatase 251 U/L (46-116) H Total Creatine Kinase 72 U/L (26-308) Total Protein 6.9 G/DL (6.4-8.2) Albumin 1.5 G/DL (3.4-5.0) L Globulin 5.4 g/dL Albumin/Globulin Ratio 0.3 (1.0-2.7) L Ammonia 105 umol/L (11-32) H Activated Partial Thromboplast Time 42 SEC (23-33) H Intake and Output 04/18/19 04/19/19 19:00 07:00 Intake Total 444.75 ml 530 ml Balance 444.75 ml 530 ml Intake Oral 0 ml 0 ml IV Total 444.75 ml 530 ml # Voids 1 # Bowel Movements 2 5 Objective PHYSICAL EXAMINATION: GENERAL: The patient is a well-developed and well-nourished obese female, in no apparent distress. HEENT: Eyes, pupils are equal and responsive to light and accommodation. Extraocular movements are intact. NECK: Supple without lymphadenopathy. CHEST: Lungs are clear to auscultation bilaterally without wheezes or rales. CARDIOVASCULAR: Regular rhythm and rate. S1, S2 are normal without murmurs, rubs, or gallops. ABDOMEN: Soft, distended with fluid wave present. No evidence of hepatosplenomegaly. Currently, no rebound or guarding noted. EXTREMITIES: Negative for clubbing, cyanosis, or edema. RECTAL/GENITAL: Not performed. NEUROLOGIC: Cranial nerves II through XII grossly intact without focal deficits. Assessment/Plan Assessment/Plan ASSESSMENT: This is a 58-year-old female. 1. Altered mental status. 2. Ascites. 3. Edema. 4. Acute renal failure. 5. History of gastrointestinal hemorrhage. 6. Liver cirrhosis. 7. Hepatic encephalopathy. 8. Diabetes type 2. 9. Hypertension. 10. Alcohol dependence. TREATMENT: 1. Altered mental status. This may be secondary to elevated ammonia level as above. The patient has been started empirically on lactulose. A Gastroenterology consultation has been obtained with Dr. Jon Torres. We will follow recommendations of Gastroenterology. 2. Ascites/edema. This is probably secondary to liver failure as above. S/P paracentesis 04/18/19. 3. Renal failure. A Nephrology consultation has been obtained with Dr. Byers. This is probably hepatorenal failure. 4. History of gastrointestinal hemorrhage. As above, a Gastroenterology consultation has been obtained with Dr. Jon Torres. The patient is status post endoscopy with hemostasis of Dieulafoy lesion. 5. Liver cirrhosis. As above, a gastroenterology consultation has been obtained with Dr. Jon Torres. 6. Hepatic encephalopathy. Continue Xifaxan and lactulose as above. 7. Diabetes type 2. A NovoLog sliding scale has been instituted. 8. Hypertension. Continue amlodipine as above. 9. Alcohol dependence. Jose Benjamin MD Apr 19, 2019 16:53
[2019-04-19 18:03] LABS: APPEARANCE,URINE SLIGHTLY CLOUDY; BILIRUBIN, URINE NEGATIVE (NEGATIVE); GLUCOSE, URINE (UA) NEGATIVE (NEGATIVE); KETONES,URINE NEGATIVE (NEGATIVE); LEUKOCYTE ESTERASE ,URINE 2+ (NEGATIVE); NITRITE,URINE NEGATIVE (NEGATIVE); PH,URINE 7 (4.5-8.0); PROTEIN,URINE NEGATIVE (NEGATIVE); UROBILINOGEN,URINE 1 MG/DL (0.0-1.0)
[2019-04-19 18:05] LABS: COLOR,URINE YELLOW
--- NOTE | 2019-04-19 19:44 | NUR ---
HAND-OFF: Report given to Royce/RN. pt in bed in stable condition, endorsed to RN to change pt often since she is on lactulose and put skin barrier lotion to protect her skin. Encourage pt to eat she ate very little.
--- NOTE | 2019-04-19 19:45 | NUR ---
NURSE NOTES: Received patient from Mirta LARSEN. Patient is awake and oriented x1, receiving oxygen via room air, patient tolerating well, showing no signs of respiratory distress. IV site is left hand 20g receiving D5 1/2 NS at 75cc/hr. Other IV site is right wrist 24g. patent and asymptomatic. Bed is locked, placed in lowest positioon Addendum: 04/19/19 at 5 by Rita Ardon RN Bed is locked, placed in lowest position, side rails up x3, bed alarm on. Will continue to monitor.
--- NOTE | 2019-04-19 20:30 | NUR ---
TRANSFER TO FLOOR: Patient transferred to [facility]. Report given to Ari LARSEN. Belongings and medications given to patient. Family and or S/O informed of transfer.
[2019-04-20 04:00] VITALS: BP 134/80
[2019-04-20] MEDS: D5 1/2NS 1,000 ML IV SCH (05:00)
[2019-04-20 06:49] LABS: HEMATOCRIT 32.8 % (37.0-47.0); MEAN CORPUSCULAR VOLUME 82 FL (80-99); PLATELET COUNT 72 K/UL (150-450); RED BLOOD COUNT 3.98 M/UL (4.20-5.40); WHITE BLOOD COUNT 5.5 K/UL (4.8-10.8)
[2019-04-20 06:52] LABS: INR 1.4 (0.9-1.1)
[2019-04-20 07:14] LABS: ALANINE AMINOTRANSFERASE 21 U/L (12-78); ALBUMIN 1.6 G/DL (3.4-5.0); ALBUMIN/GLOBULIN RATIO 0.3 (1.0-2.7); ALKALINE PHOSPHATASE 217 U/L (46-116); ANION GAP 10 mmol/L (5-15); ASPARTATE AMINO TRANSFERASE 33 U/L (15-37); BILIRUBIN,TOTAL 2.3 MG/DL (0.2-1.0); BLOOD UREA NITROGEN 24 mg/dL (7-18); CALCIUM 8.4 MG/DL (8.5-10.1); CARBON DIOXIDE 23 MMOL/L (21-32); CHLORIDE 108 MMOL/L (98-107); CREATININE 1.6 MG/DL (0.55-1.30); POTASSIUM 3.1 MMOL/L (3.5-5.1); SODIUM 140 MMOL/L (136-145)
--- NOTE | 2019-04-20 07:14 | NUR ---
HAND-OFF: Report given to CHAVA Kessler.
[2019-04-20 07:17] LABS: BILIRUBIN,DIRECT 1.2 MG/DL (0.0-0.3)
[2019-04-20 08:00] VITALS: BP 149/83
[2019-04-20] MEDS ORDERED: Cefepime HCl 2 GM in NS 110 ML IV SCH (08:15)
[2019-04-20] MEDS ORDERED: Miralax 17gm pkt ORAL PRN (10:00)
--- NOTE | 2019-04-20 10:20 | GI Progress Note ---
Assessment/Plan Problems: (1) Acute metabolic encephalopathy ICD Codes: G93.41 - Metabolic encephalopathy SNOMED: 70695563, 735941026 (2) Liver cirrhosis ICD Codes: K74.60 - Unspecified cirrhosis of liver SNOMED: 05052521 (3) Abdominal pain ICD Codes: R10.9 - Unspecified abdominal pain SNOMED: 95958382 (4) Altered mental status ICD Codes: R41.82 - Altered mental status, unspecified SNOMED: 074655695 Qualifiers: Qualified Codes: R41.82 - Altered mental status, unspecified (5) Ascites ICD Codes: R18.8 - Other ascites SNOMED: 415012286 Qualifiers: Qualified Codes: K70.31 - Alcoholic cirrhosis of liver with ascites (6) Anasarca ICD Codes: R60.1 - Generalized edema SNOMED: 154563506, 609320501 (7) Hepatic encephalopathy ICD Codes: K72.90 - Hepatic failure, unspecified without coma SNOMED: 60467617 Status: stable Status Narrative Discussed with Dr. Torres. Assessment/Plan s/p paracentesis in the ED >> yielding 7.9L s/p EGD 02/04/19 with active bleed from Dieulafoy lesion OB stool positive May need repeat endoscopy. monitor H&H, prn transfusions bowel regimen ppi lactulose + xifaxan adv diet fu labs The patient was seen and examined at bedside and all new and available data was reviewed in the patients chart. I agree with the above findings, impression and plan. (Patient seen earlier today. Signature stamp does not reflect patient encounter time.). - Jon Torres MD Subjective Gastrointestinal/Abdominal: Reports: no symptoms Subjective ROS limited Objective Last 24 Hour Vital Signs Date Time Temp Pulse Resp B/P (MAP) Pulse Ox O2 Delivery O2 Flow Rate FiO2 04/20/19 08:00 98.7 87 19 149/83 (105) 97 04/20/19 04:00 97.9 87 20 134/80 (98) 95 04/19/19 23:41 98.1 89 20 143/79 (100) 95 04/19/19 21:00 Room Air 04/19/19 20:00 97.9 83 20 110/67 (81) 100 04/19/19 16:00 80 8/20/19 16:00 98.1 83 18 108/68 (81) 100 04/19/19 12:00 80 04/19/19 12:00 97.7 85 18 128/76 (93) 96 Intake and Output 04/19/19 04/20/19 19:00 07:00 Intake Total 360 ml 450 ml Balance 360 ml 450 ml Intake Oral 360 ml IV Total 450 ml # Voids 1 # Bowel Movements 3 2 Laboratory Tests Test 04/19/19 11:10 04/19/19 13:06 04/20/19 05:55 Activated Partial Thromboplast Time 42 SEC (23-33) H 26 SEC (23-33) Urine Color Yellow Urine Appearance Slightly cloudy Urine pH 7 (4.5-8.0) Urine Specific [place] 1.005 (1.005-1.035) Urine Protein Negative (NEGATIVE) Urine Glucose (UA) Negative (NEGATIVE) Urine Ketones Negative (NEGATIVE) Urine Blood 1+ (NEGATIVE) H Urine Nitrite Negative (NEGATIVE) Urine Bilirubin Negative (NEGATIVE) Urine Urobilinogen 1 MG/DL (0.0-1.0) H Urine Leukocyte Esterase 2+ (NEGATIVE) H Urine RBC 0-2 /HPF (0 - 2) Urine WBC 0-2 /HPF (0 - 2) Urine Squamous Epithelial Cells Few /LPF (NONE/OCC) Urine Bacteria Many /HPF (NONE) H Urine Eosinophils None seen (NONE SEEN) Urine Osmolality 334 mOsm/kg (429-449) L Urine Random Creatinine Pending Urine Random Microalbumin Pending Urine Random Sodium 40 mmol/L (20-110) Urine Microalbumin/Creatinine Ratio Pending White Blood Count 5.5 K/UL (4.8-10.8) Red Blood Count 3.98 M/UL (4.20-5.40) L Hemoglobin 10.0 G/DL (12.0-16.0) L Hematocrit 32.8 % (37.0-47.0) L Mean Corpuscular Volume 82 FL (80-99) Mean Corpuscular Hemoglobin 25.2 PG (27.0-31.0) L Mean Corpuscular Hemoglobin Concent 30.5 G/DL (32.0-36.0) L Red Cell Distribution Width 18.0 % (11.6-14.8) H Platelet Count 72 K/UL (150-450) L Mean Platelet Volume 7.4 FL (6.5-10.1) Neutrophils (%) (Auto) % (45.0-75.0) Lymphocytes (%) (Auto) % (20.0-45.0) Monocytes (%) (Auto) % (1.0-10.0) Eosinophils (%) (Auto) % (0.0-3.0) Basophils (%) (Auto) % (0.0-2.0) Differential Total Cells Counted 100 Neutrophils % (Manual) 79 % (45-75) H Lymphocytes % (Manual) 13 % (20-45) L Monocytes % (Manual) 6 % (1-10) Eosinophils % (Manual) 1 % (0-3) Basophils % (Manual) 1 % (0-2) Band Neutrophils 0 % (0-8) Platelet Estimate Decreased L Platelet Morphology Normal Hypochromasia 1+ Anisocytosis 1+ Prothrombin Time 14.7 SEC (9.30-11.50) H Prothromb Time International Ratio 1.4 (0.9-1.1) H Sodium Level 140 MMOL/L (136-145) Potassium Level 3.1 MMOL/L (3.5-5.1) L Chloride Level 108 MMOL/L (98-107) H Carbon Dioxide Level 23 MMOL/L (21-32) Anion Gap 10 mmol/L (5-15) Blood Urea Nitrogen 24 mg/dL (7-18) H Creatinine 1.6 MG/DL (0.55-1.30) H Estimat Glomerular Filtration Rate 33.2 mL/min (>60) Glucose Level 121 MG/DL (74-106) H Calcium Level 8.4 MG/DL (8.5-10.1) L Phosphorus Level 3.0 MG/DL (2.5-4.9) Magnesium Level 1.7 MG/DL (1.8-2.4) L Total Bilirubin 2.3 MG/DL (0.2-1.0) H Direct Bilirubin 1.2 MG/DL (0.0-0.3) H Aspartate Amino Transf (AST/SGOT) 33 U/L (15-37) Alanine Aminotransferase (ALT/SGPT) 21 U/L (12-78) Alkaline Phosphatase 217 U/L (46-116) H Total Protein 6.7 G/DL (6.4-8.2) Albumin 1.6 G/DL (3.4-5.0) L Globulin 5.1 g/dL Albumin/Globulin Ratio 0.3 (1.0-2.7) L Microbiology Date/Time Source Procedure Growth Status 04/19/19 13:06 Urine,Clean Catch Urine Culture - Preliminary Resulted Height (Feet): 5 Height (Inches): 5.00 Weight (Pounds): 193 General Appearance: WD/WN, no apparent distress, alert Cardiovascular: normal rate Respiratory/Chest: normal breath sounds, no respiratory distress Abdominal Exam: normal bowel sounds, non tender, soft Extremities: normal range of motion, non-tender Indu Lane NP Apr 20, 2019 10:20
[2019-04-20] MEDS: Lactulose 20gm/30ml UDC ORAL SCH ×3 (11:01→18:46)
--- NOTE | 2019-04-20 11:51 | Internal Med Progress Note ---
Subjective Date of Service: Apr 20, 2019 Physician Name Benjamin,Jose Attending Physician Goldy Amador MD Current Medications Medications (Trade) Dose Ordered Sig/Almaz Route PRN Reason Start Time Stop Time Status Last Admin Dose Admin Acetaminophen (Tylenol) 650 mg Q4H PRN ORAL fever 04/20/19 02:00 05/18/19 09:59 Cefepime HCl 2 gm/ Sodium Chloride 110 ml @ 220 mls/hr Q12H IV 04/20/19 08:15 04/21/19 08:14 04/20/19 11:16 Dextrose (Dextrose 50%) 25 ml Q30M PRN IV Hypoglycemia 04/19/19 23:00 05/18/19 09:53 Dextrose (Dextrose 50%) 50 ml Q30M PRN IV hypoglycemia 04/19/19 23:00 05/18/19 09:59 Dextrose/Sodium Chloride 1,000 ml @ 75 mls/hr [id number] IV 04/19/19 23:00 05/18/19 09:52 04/20/19 05:00 Diphenhydramine HCl (Benadryl) 25 mg Q6H PRN ORAL Itching/Pruritis 04/19/19 23:00 05/18/19 04:59 Lactulose (Cephulac) 30 gm THREE TIMES A DAY ORAL 04/20/19 09:00 05/19/19 12:59 04/20/19 11:01 Magnesium Sulfate 100 ml @ 100 mls/hr Q1H IVPB 04/20/19 10:00 04/20/19 11:59 04/20/19 11:01 Morphine Sulfate (Morphine Sulfate) 2 mg Q4H PRN IVP severe Pain (Pain Scale 7-10) 04/20/19 01:00 04/25/19 04:59 Nitroglycerin (Ntg) 0.4 mg Q5M X 3 DOSES PRN SL Prn Chest Pain 04/19/19 23:00 05/18/19 09:59 Ondansetron HCl (Zofran) 4 mg Q6H PRN IVP Nausea & Vomiting 04/19/19 23:00 05/18/19 04:59 Polyethylene Glycol (Miralax) 17 gm HSPRN PRN ORAL Constipation 04/20/19 10:00 05/18/19 09:59 Potassium Phosphate 30 mm/ Sodium Chloride 285 ml @ 47.5 mls/hr ONCE ONCE IV 04/20/19 12:00 04/20/19 17:59 Rifaximin (Xifaxan) 550 mg EVERY 12 HOURS ORAL 04/20/19 09:00 04/25/19 20:59 04/20/19 11:31 Temazepam (Restoril) 15 mg HSPRN PRN ORAL Insomnia 04/20/19 10:00 04/25/19 09:59 Allergies: Coded Allergies: No Known Allergies (Unverified , 01/31/19) ROS Limited/Unobtainable: No Constitutional: Reports: no symptoms HEENT: Reports: no symptoms Cardiovascular: Reports: no symptoms Respiratory: Reports: no symptoms Gastrointestinal/Abdominal: Reports: abdomen distended, abdominal pain Genitourinary: Reports: no symptoms Neurologic/Psychiatric: Reports: no symptoms Subjective 58 YO F admitted with altered mental status and ascites. S/P paracentesis . Cover for Int Eloy-Dr Amador Objective Last Vital Signs Date Time Temp Pulse Resp B/P (MAP) Pulse Ox O2 Delivery O2 Flow Rate FiO2 04/20/19 08:00 98.7 87 19 149/83 (105) 97 04/19/19 21:00 Room Air Laboratory Tests Test 04/19/19 13:06 04/20/19 05:55 Urine Color Yellow Urine Appearance Slightly cloudy Urine pH 7 (4.5-8.0) Urine Specific [place] 1.005 (1.005-1.035) Urine Protein Negative (NEGATIVE) Urine Glucose (UA) Negative (NEGATIVE) Urine Ketones Negative (NEGATIVE) Urine Blood 1+ (NEGATIVE) H Urine Nitrite Negative (NEGATIVE) Urine Bilirubin Negative (NEGATIVE) Urine Urobilinogen 1 MG/DL (0.0-1.0) H Urine Leukocyte Esterase 2+ (NEGATIVE) H Urine RBC 0-2 /HPF (0 - 2) Urine WBC 0-2 /HPF (0 - 2) Urine Squamous Epithelial Cells Few /LPF (NONE/OCC) Urine Bacteria Many /HPF (NONE) H Urine Eosinophils None seen (NONE SEEN) Urine Osmolality 334 mOsm/kg (429-449) L Urine Random Creatinine Pending Urine Random Microalbumin Pending Urine Random Sodium 40 mmol/L (20-110) Urine Microalbumin/Creatinine Ratio Pending White Blood Count 5.5 K/UL (4.8-10.8) Red Blood Count 3.98 M/UL (4.20-5.40) L Hemoglobin 10.0 G/DL (12.0-16.0) L Hematocrit 32.8 % (37.0-47.0) L Mean Corpuscular Volume 82 FL (80-99) Mean Corpuscular Hemoglobin 25.2 PG (27.0-31.0) L Mean Corpuscular Hemoglobin Concent 30.5 G/DL (32.0-36.0) L Red Cell Distribution Width 18.0 % (11.6-14.8) H Platelet Count 72 K/UL (150-450) L Mean Platelet Volume 7.4 FL (6.5-10.1) Neutrophils (%) (Auto) % (45.0-75.0) Lymphocytes (%) (Auto) % (20.0-45.0) Monocytes (%) (Auto) % (1.0-10.0) Eosinophils (%) (Auto) % (0.0-3.0) Basophils (%) (Auto) % (0.0-2.0) Differential Total Cells Counted 100 Neutrophils % (Manual) 79 % (45-75) H Lymphocytes % (Manual) 13 % (20-45) L Monocytes % (Manual) 6 % (1-10) Eosinophils % (Manual) 1 % (0-3) Basophils % (Manual) 1 % (0-2) Band Neutrophils 0 % (0-8) Platelet Estimate Decreased L Platelet Morphology Normal Hypochromasia 1+ Anisocytosis 1+ Prothrombin Time 14.7 SEC (9.30-11.50) H Prothromb Time International Ratio 1.4 (0.9-1.1) H Activated Partial Thromboplast Time 26 SEC (23-33) Sodium Level 140 MMOL/L (136-145) Potassium Level 3.1 MMOL/L (3.5-5.1) L Chloride Level 108 MMOL/L (98-107) H Carbon Dioxide Level 23 MMOL/L (21-32) Anion Gap 10 mmol/L (5-15) Blood Urea Nitrogen 24 mg/dL (7-18) H Creatinine 1.6 MG/DL (0.55-1.30) H Estimat Glomerular Filtration Rate 33.2 mL/min (>60) Glucose Level 121 MG/DL (74-106) H Calcium Level 8.4 MG/DL (8.5-10.1) L Phosphorus Level 3.0 MG/DL (2.5-4.9) Magnesium Level 1.7 MG/DL (1.8-2.4) L Total Bilirubin 2.3 MG/DL (0.2-1.0) H Direct Bilirubin 1.2 MG/DL (0.0-0.3) H Aspartate Amino Transf (AST/SGOT) 33 U/L (15-37) Alanine Aminotransferase (ALT/SGPT) 21 U/L (12-78) Alkaline Phosphatase 217 U/L (46-116) H Total Protein 6.7 G/DL (6.4-8.2) Albumin 1.6 G/DL (3.4-5.0) L Globulin 5.1 g/dL Albumin/Globulin Ratio 0.3 (1.0-2.7) L Microbiology Date/Time Source Procedure Growth Status 04/18/19 08:20 Blood Blood Culture - Preliminary NO GROWTH AFTER 24 HOURS Resulted 04/18/19 08:20 Blood Blood Culture - Preliminary NO GROWTH AFTER 24 HOURS Resulted 04/19/19 13:06 Urine,Clean Catch Urine Culture - Preliminary Resulted Intake and Output 04/19/19 04/20/19 19:00 07:00 Intake Total 360 ml 450 ml Balance 360 ml 450 ml Intake Oral 360 ml IV Total 450 ml # Voids 1 # Bowel Movements 3 2 Objective PHYSICAL EXAMINATION: GENERAL: The patient is a well-developed and well-nourished obese female, in no apparent distress. HEENT: Eyes, pupils are equal and responsive to light and accommodation. Extraocular movements are intact. NECK: Supple without lymphadenopathy. CHEST: Lungs are clear to auscultation bilaterally without wheezes or rales. CARDIOVASCULAR: Regular rhythm and rate. S1, S2 are normal without murmurs, rubs, or gallops. ABDOMEN: Soft, distended with fluid wave present. No evidence of hepatosplenomegaly. Currently, no rebound or guarding noted. EXTREMITIES: Negative for clubbing, cyanosis, or edema. RECTAL/GENITAL: Not performed. NEUROLOGIC: Cranial nerves II through XII grossly intact without focal deficits. Assessment/Plan Assessment/Plan ASSESSMENT: This is a 58-year-old female. 1. Altered mental status. 2. Ascites. 3. Edema. 4. Acute renal failure. 5. History of gastrointestinal hemorrhage. 6. Liver cirrhosis. 7. Hepatic encephalopathy. 8. Diabetes type 2. 9. Hypertension. 10. Alcohol dependence. TREATMENT: 1. Altered mental status. This may be secondary to elevated ammonia level as above. The patient has been started empirically on lactulose. A Gastroenterology consultation has been obtained with Dr. Jon Torres. We will follow recommendations of Gastroenterology. 2. Ascites/edema. This is probably secondary to liver failure as above. S/P paracentesis 04/18/19. 3. Renal failure. A Nephrology consultation has been obtained with Dr. Byers. This is probably hepatorenal failure. 4. History of gastrointestinal hemorrhage. As above, a Gastroenterology consultation has been obtained with Dr. Jon Torres. The patient is status post endoscopy with hemostasis of Dieulafoy lesion. 5. Liver cirrhosis. As above, a gastroenterology consultation has been obtained with Dr. Jon Torres. 6. Hepatic encephalopathy. Continue Xifaxan and lactulose as above. 7. Diabetes type 2. A NovoLog sliding scale has been instituted. 8. Hypertension. Continue amlodipine as above. 9. Alcohol dependence. Jose Benjamin MD Apr 20, 2019 11:51
--- NOTE | 2019-04-20 11:56 | Pulmonology Progress Note ---
Assessment/Plan Problems: (1) Acute metabolic encephalopathy (2) Hepatic encephalopathy (3) Ascites (4) Anasarca (5) Liver cirrhosis (6) ETOH abuse Assessment/Plan cytology reviewed, negative for malignancy awake, no nee complains renal w/u ID to follow rule out SBP GI evaluation symptomatic treatment Subjective ROS Limited/Unobtainable: No Constitutional: Reports: no symptoms HEENT: Repors: no symptoms Respiratory: Reports: no symptoms, other Cardiovascular: Reports: no symptoms Allergies: Coded Allergies: No Known Allergies (Unverified , 01/31/19) Objective Last 24 Hour Vital Signs Date Time Temp Pulse Resp B/P (MAP) Pulse Ox O2 Delivery O2 Flow Rate FiO2 04/20/19 08:00 98.7 87 19 149/83 (105) 97 04/20/19 04:00 97.9 87 20 134/80 (98) 95 04/19/19 23:41 98.1 89 20 143/79 (100) 95 04/19/19 21:00 Room Air 04/19/19 20:00 97.9 83 20 110/67 (81) 100 04/19/19 16:00 80 04/19/19 16:00 98.1 83 18 108/68 (81) 100 04/19/19 12:00 80 04/19/19 12:00 97.7 85 18 128/76 (93) 96 Intake and Output 04/19/19 04/20/19 19:00 07:00 Intake Total 360 ml 450 ml Balance 360 ml 450 ml Intake Oral 360 ml IV Total 450 ml # Voids 1 # Bowel Movements 3 2 General Appearance: WD/WN HEENT: normocephalic, atraumatic Respiratory/Chest: chest wall non-tender, lungs clear Breasts: no masses Cardiovascular: normal peripheral pulses Abdomen: normal bowel sounds, soft, non tender Genitourinary: normal external genitalia Extremities: no clubbing Skin: no rash Microbiology Date/Time Source Procedure Growth Status 04/18/19 08:20 Blood Blood Culture - Preliminary NO GROWTH AFTER 24 HOURS Resulted 04/18/19 08:20 Blood Blood Culture - Preliminary NO GROWTH AFTER 24 HOURS Resulted 04/19/19 13:06 Urine,Clean Catch Urine Culture - Preliminary Resulted Laboratory Tests 04/19/19 13:06: Urine Color Yellow, Urine Appearance Slightly cloudy, Urine pH 7, Urine Specific [place] 1.005, Urine Protein Negative, Urine Glucose (UA) Negative, Urine Ketones Negative, Urine Blood 1+H, Urine Nitrite Negative, Urine Bilirubin Negative, Urine Urobilinogen 1H, Urine Leukocyte Esterase 2+H, Urine RBC 0-2, Urine WBC 0-2, Urine Squamous Epithelial Cells Few, Urine Bacteria ManyH, Urine Eosinophils None seen, Urine Osmolality 334L, Urine Random Creatinine [Pending], Urine Random Microalbumin [Pending], Urine Random Sodium 40, Urine Microalbumin/Creatinine Ratio [Pending] 04/20/19 05:55: White Blood Count 5.5, Red Blood Count 3.98L, Hemoglobin 10.0L, Hematocrit 32.8L , Mean Corpuscular Volume 82, Mean Corpuscular Hemoglobin 25.2L, Mean Corpuscular Hemoglobin Concent 30.5L, Red Cell Distribution Width 18.0H, Platelet Count 72L, Mean Platelet Volume 7.4, Neutrophils (%) (Auto) , Lymphocytes (%) (Auto) , Monocytes (%) (Auto) , Eosinophils (%) (Auto) , Basophils (%) (Auto) , Differential Total Cells Counted 100, Neutrophils % ( Manual) 79H, Lymphocytes % (Manual) 13L, Monocytes % (Manual) 6, Eosinophils % ( Manual) 1, Basophils % (Manual) 1, Band Neutrophils 0, Platelet Estimate DecreasedL, Platelet Morphology Normal, Hypochromasia 1+, Anisocytosis 1+, Prothrombin Time 14.7H, Prothromb Time International Ratio 1.4H, Activated Partial Thromboplast Time 26, Sodium Level 140, Potassium Level 3.1L, Chloride Level 108H, Carbon Dioxide Level 23, Anion Gap 10, Blood Urea Nitrogen 24H, Creatinine 1.6H, Estimat Glomerular Filtration Rate 33.2, Glucose Level 121H, Calcium Level 8.4L, Phosphorus Level 3.0, Magnesium Level 1.7L, Total Bilirubin 2.3H, Direct Bilirubin 1.2H, Aspartate Amino Transf (AST/SGOT) 33, Alanine Aminotransferase (ALT/SGPT) 21, Alkaline Phosphatase 217H, Total Protein 6.7, Albumin 1.6L, Globulin 5.1, Albumin/Globulin Ratio 0.3L Current Medications Medications (Trade) Dose Ordered Sig/Almaz Route PRN Reason Start Time Stop Time Status Last Admin Dose Admin Acetaminophen (Tylenol) 650 mg Q4H PRN ORAL fever 04/20/19 02:00 05/18/19 09:59 Cefepime HCl 2 gm/ Sodium Chloride 110 ml @ 220 mls/hr Q12H IV 04/20/19 08:15 04/21/19 08:14 04/20/19 11:16 Dextrose (Dextrose 50%) 25 ml Q30M PRN IV Hypoglycemia 04/19/19 23:00 05/18/19 09:53 Dextrose (Dextrose 50%) 50 ml Q30M PRN IV hypoglycemia 04/19/19 23:00 05/18/19 09:59 Dextrose/Sodium Chloride 1,000 ml @ 75 mls/hr [id number] IV 04/19/19 23:00 05/18/19 09:52 04/20/19 05:00 Diphenhydramine HCl (Benadryl) 25 mg Q6H PRN ORAL Itching/Pruritis 04/19/19 23:00 05/18/19 04:59 Lactulose (Cephulac) 30 gm THREE TIMES A DAY ORAL 04/20/19 09:00 05/19/19 12:59 04/20/19 11:01 Magnesium Sulfate 100 ml @ 100 mls/hr Q1H IVPB 04/20/19 10:00 04/20/19 11:59 04/20/19 11:01 Morphine Sulfate (Morphine Sulfate) 2 mg Q4H PRN IVP severe Pain (Pain Scale 7-10) 04/20/19 01:00 04/25/19 04:59 Nitroglycerin (Ntg) 0.4 mg Q5M X 3 DOSES PRN SL Prn Chest Pain 04/19/19 23:00 05/18/19 09:59 Ondansetron HCl (Zofran) 4 mg Q6H PRN IVP Nausea & Vomiting 04/19/19 23:00 05/18/19 04:59 Polyethylene Glycol (Miralax) 17 gm HSPRN PRN ORAL Constipation 04/20/19 10:00 05/18/19 09:59 Potassium Phosphate 30 mm/ Sodium Chloride 285 ml @ 47.5 mls/hr ONCE ONCE IV 04/20/19 12:00 04/20/19 17:59 Rifaximin (Xifaxan) 550 mg EVERY 12 HOURS ORAL 04/20/19 09:00 04/25/19 20:59 8/21/19 11:31 Temazepam (Restoril) 15 mg HSPRN PRN ORAL Insomnia 04/20/19 10:00 04/25/19 09:59 Shireen Khan MD Apr 20, 2019 11:56
[2019-04-20 12:00] VITALS: BP 137/84
[2019-04-20] MEDS ORDERED: Potassium Phosphate 30 MM in NS 275 ML IV ONE (12:00)
[2019-04-20 16:00] VITALS: BP 134/79
--- NOTE | 2019-04-20 16:55 | NUR ---
CASE MANAGEMENT:REVIEW 04/20/19 SI: HEPATIC ENCEPHALOPATHY ASCITES. S/P PARACENTESIS ~ 7.9L REMOVED 97.5 93 18 137/84 94% ON RA PLT-72 K-3.1 TBILI+2.3 DBILI+1.2 IS: IV CEFEPIME Q24 IV K-PHOS X1 LACTULOSE PO TID RIFAXIMIN PO Q12 IVF@75/HR : MED/SURG STATUS 4 [facility]
--- NOTE | 2019-04-20 19:37 | NUR ---
HAND-OFF: Report given to CHAVA Recinos. Addendum: 04/20/19 at 1940 by TAY PERRIN RN HAND-OFF: Report given to CHAVA Recinos
[2019-04-20 20:00] VITALS: BP 144/84
--- NOTE | 2019-04-20 20:02 | NUR ---
NURSE NOTES: Pt is in bed, awake, non-verbal. No acute distress noted. Room air. D5 1/2 NS running at 75ml/hr. Pt is barely eating anything. She is on Full liq diet. Pt's family is by bedside, only speaks English. Pt will be repositioned frequently. Pt is on aspiration precaution. Pt is on Fall precaution. Bed locked low in position,side rails up and call light within reach. Bed alarm on. Pt will be monitored.
[2019-04-21] VITALS: BP 142/76
[2019-04-21] MEDS: D5 1/2NS 1,000 ML IV SCH ×2 (02:35→15:32)
[2019-04-21 04:00] VITALS: BP 144/78
--- NOTE | 2019-04-21 04:00 | NUR ---
NURSE NOTES: Pt not taking PO. Pt is not taking PO medication well. Pt's son was at bedside, son is aware.
[2019-04-21 07:25] LABS: HEMATOCRIT 31.6 % (37.0-47.0); HEMOGLOBIN 9.5 G/DL (12.0-16.0); MEAN CORPUSCULAR VOLUME 83 FL (80-99); PLATELET COUNT 65 K/UL (150-450); RED BLOOD COUNT 3.83 M/UL (4.20-5.40); RED CELL DISTRIBUTION WIDTH 18.6 % (11.6-14.8); WHITE BLOOD COUNT 5.5 K/UL (4.8-10.8)
[2019-04-21 08:00] VITALS: BP 142/82
[2019-04-21] MEDS ORDERED: Cefepime HCl 2 GM in NS 110 ML IV SCH (08:00)
--- NOTE | 2019-04-21 08:00 | NUR ---
NURSE NOTES: Patient eyes open.patient follows with her eyes but does not answer questions, respirations unlabored.IV fluids infusing as ordered.patient HOB is elevated,assist with breakfast.Bed alarm is on,call light within reach.
[2019-04-21 08:02] LABS: AMMONIA 76 umol/L (11-32)
[2019-04-21 08:03] LABS: ALANINE AMINOTRANSFERASE 19 U/L (12-78); ALBUMIN 1.5 G/DL (3.4-5.0); ALBUMIN/GLOBULIN RATIO 0.3 (1.0-2.7); ALKALINE PHOSPHATASE 196 U/L (46-116); ANION GAP 10 mmol/L (5-15); ASPARTATE AMINO TRANSFERASE 33 U/L (15-37); BILIRUBIN,TOTAL 2.7 MG/DL (0.2-1.0); BLOOD UREA NITROGEN 21 mg/dL (7-18); CALCIUM 8.2 MG/DL (8.5-10.1); CARBON DIOXIDE 20 MMOL/L (21-32); CHLORIDE 111 MMOL/L (98-107); CREATININE 1.5 MG/DL (0.55-1.30); POTASSIUM 3.3 MMOL/L (3.5-5.1); SODIUM 141 MMOL/L (136-145)
[2019-04-21 08:37] LABS: BILIRUBIN,DIRECT 1.4 MG/DL (0.0-0.3)
--- NOTE | 2019-04-21 08:55 | GI Progress Note ---
Assessment/Plan Problems: (1) Acute metabolic encephalopathy ICD Codes: G93.41 - Metabolic encephalopathy SNOMED: 38925229, 544228812 (2) Liver cirrhosis ICD Codes: K74.60 - Unspecified cirrhosis of liver SNOMED: 35454217 (3) Abdominal pain ICD Codes: R10.9 - Unspecified abdominal pain SNOMED: 62121405 (4) Altered mental status ICD Codes: R41.82 - Altered mental status, unspecified SNOMED: 291733789 Qualifiers: Qualified Codes: R41.82 - Altered mental status, unspecified (5) Ascites ICD Codes: R18.8 - Other ascites SNOMED: 230460547 Qualifiers: Qualified Codes: K70.31 - Alcoholic cirrhosis of liver with ascites (6) Anasarca ICD Codes: R60.1 - Generalized edema SNOMED: 549942642, 275837968 (7) Hepatic encephalopathy ICD Codes: K72.90 - Hepatic failure, unspecified without coma SNOMED: 56957605 Status: progressing Status Narrative Discussed with Dr. Torres. Assessment/Plan s/p paracentesis in the ED >> yielding 7.9L s/p EGD 02/04/19 with active bleed from Dieulafoy lesion OB stool positive EGD scheduled for tomorrow. - cardiac diet, NPO @ MN. 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 I agree with the above findings, impression and plan. (Patient seen earlier today. Signature stamp does not reflect patient encounter time.). - Jon Torres MD Subjective Subjective ROS limited Objective Last 24 Hour Vital Signs Date Time Temp Pulse Resp B/P (MAP) Pulse Ox O2 Delivery O2 Flow Rate FiO2 04/21/19 04:00 99.4 89 18 144/78 (100) 97 04/21/19 00:00 99.7 97 18 142/76 (98) 96 04/20/19 21:00 Room Air 04/20/19 20:00 98.2 90 20 144/84 (104) 95 98 04/20/19 16:00 97.8 90 18 134/79 (97) 96 04/20/19 12:00 97.5 93 18 137/84 (101) 94 04/20/19 09:00 Room Air Intake and Output 04/20/19 04/21/19 18:59 06:59 Intake Total 620 ml 900 ml Balance 620 ml 900 ml Intake Oral 620 ml IV Total 900 ml # Voids 3 2 Laboratory Tests Test 04/21/19 05:28 White Blood Count 5.5 K/UL (4.8-10.8) Red Blood Count 3.83 M/UL (4.20-5.40) L Hemoglobin 9.5 G/DL (12.0-16.0) L Hematocrit 31.6 % (37.0-47.0) L Mean Corpuscular Volume 83 FL (80-99) Mean Corpuscular Hemoglobin 24.9 PG (27.0-31.0) L Mean Corpuscular Hemoglobin Concent 30.2 G/DL (32.0-36.0) L Red Cell Distribution Width 18.6 % (11.6-14.8) H Platelet Count 65 K/UL (150-450) L Mean Platelet Volume 7.0 FL (6.5-10.1) Neutrophils (%) (Auto) % (45.0-75.0) Lymphocytes (%) (Auto) % (20.0-45.0) Monocytes (%) (Auto) % (1.0-10.0) Eosinophils (%) (Auto) % (0.0-3.0) Basophils (%) (Auto) % (0.0-2.0) Neutrophils % (Manual) Pending Lymphocytes % (Manual) Pending Platelet Estimate Pending Platelet Morphology Pending Sodium Level 141 MMOL/L (136-145) Potassium Level 3.3 MMOL/L (3.5-5.1) L Chloride Level 111 MMOL/L (98-107) H Carbon Dioxide Level 20 MMOL/L (21-32) L Anion Gap 10 mmol/L (5-15) Blood Urea Nitrogen 21 mg/dL (7-18) H Creatinine 1.5 MG/DL (0.55-1.30) H Estimat Glomerular Filtration Rate 35.8 mL/min (>60) Glucose Level 129 MG/DL (74-106) H Calcium Level 8.2 MG/DL (8.5-10.1) L Total Bilirubin 2.7 MG/DL (0.2-1.0) H Direct Bilirubin 1.4 MG/DL (0.0-0.3) H Aspartate Amino Transf (AST/SGOT) 33 U/L (15-37) Alanine Aminotransferase (ALT/SGPT) 19 U/L (12-78) Alkaline Phosphatase 196 U/L (46-116) H Ammonia 76 umol/L (11-32) H Total Protein 6.3 G/DL (6.4-8.2) L Albumin 1.5 G/DL (3.4-5.0) L Globulin 4.8 g/dL Albumin/Globulin Ratio 0.3 (1.0-2.7) L Height (Feet): 5 Height (Inches): 5.00 Weight (Pounds): 193 General Appearance: no apparent distress Indu Lane NP Apr 21, 2019 08:55
[2019-04-21] MEDS: Lactulose 20gm/30ml UDC ORAL SCH ×3 (09:00→19:24)
[2019-04-21] MEDS ORDERED: Tubing IV Secondary IV ONE (11:28)
[2019-04-21] MEDS ORDERED: D5 1/2NS 1000ml IV ONE (11:28)
[2019-04-21 12:00] VITALS: BP 141/81
--- NOTE | 2019-04-21 12:00 | NUR ---
NURSE NOTES: DR Khan was here and made aware per Microbiology,patient is positive for VRE rectum.
--- NOTE | 2019-04-21 12:02 | Pulmonology Progress Note ---
Assessment/Plan Problems: (1) Acute metabolic encephalopathy (2) Hepatic encephalopathy (3) Ascites (4) Anasarca (5) Liver cirrhosis (6) ETOH abuse Assessment/Plan cytology reviewed, negative for malignancy awake, no nee complains renal w/u ID to follow rule out SBP GI evaluation symptomatic treatment social service consult Subjective ROS Limited/Unobtainable: No Constitutional: Reports: no symptoms HEENT: Repors: no symptoms Respiratory: Reports: no symptoms Allergies: Coded Allergies: No Known Allergies (Unverified , 01/31/19) Objective Last 24 Hour Vital Signs Date Time Temp Pulse Resp B/P (MAP) Pulse Ox O2 Delivery O2 Flow Rate FiO2 04/21/19 09:00 Room Air 04/21/19 08:00 98.0 93 20 142/82 (102) 95 04/21/19 04:00 99.4 89 18 144/78 (100) 97 04/21/19 00:00 99.7 97 18 142/76 (98) 96 04/20/19 21:00 Room Air 04/20/19 20:00 98.2 90 20 144/84 (104) 95 98 04/20/19 16:00 97.8 90 18 134/79 (97) 96 Intake and Output 04/20/19 04/21/19 18:59 06:59 Intake Total 620 ml 900 ml Balance 620 ml 900 ml Intake Oral 620 ml IV Total 900 ml # Voids 3 2 General Appearance: WD/WN HEENT: normocephalic, atraumatic Respiratory/Chest: chest wall non-tender, lungs clear, normal breath sounds Breasts: no masses Cardiovascular: normal peripheral pulses, normal rate Genitourinary: normal external genitalia Extremities: no clubbing Skin: no rash Microbiology Date/Time Source Procedure Growth Status 04/19/19 08:50 Nasal Nares MRSA Culture - Final NO METHICILLIN RESISTANT STAPH AUREUS... Complete 04/19/19 13:06 Urine,Clean Catch Urine Culture - Preliminary Gram Positive Cocci Resulted 04/19/19 08:50 Rectum - Final NO CARBAPENEM-RESISTANT ENTEROBACTERI... Complete 04/19/19 08:50 Rectum VRE Culture - Final Enterococcus Faecium - Vre Complete Laboratory Tests 04/21/19 05:28: White Blood Count 5.5, Red Blood Count 3.83L, Hemoglobin 9.5L, Hematocrit 31.6L , Mean Corpuscular Volume 83, Mean Corpuscular Hemoglobin 24.9L, Mean Corpuscular Hemoglobin Concent 30.2L, Red Cell Distribution Width 18.6H, Platelet Count 65L, Mean Platelet Volume 7.0, Neutrophils (%) (Auto) , Lymphocytes (%) (Auto) , Monocytes (%) (Auto) , Eosinophils (%) (Auto) , Basophils (%) (Auto) , Differential Total Cells Counted 100, Neutrophils % ( Manual) 86H, Lymphocytes % (Manual) 8L, Monocytes % (Manual) 2, Eosinophils % ( Manual) 3, Basophils % (Manual) 1, Band Neutrophils 0, Platelet Estimate DecreasedL, Platelet Morphology Normal, Hypochromasia 2+, Anisocytosis 2+, Sodium Level 141, Potassium Level 3.3L, Chloride Level 111H, Carbon Dioxide Level 20L, Anion Gap 10, Blood Urea Nitrogen 21H, Creatinine 1.5H, Estimat Glomerular Filtration Rate 35.8, Glucose Level 129H, Calcium Level 8.2L, Total Bilirubin 2.7H, Direct Bilirubin 1.4H, Aspartate Amino Transf (AST/SGOT) 33, Alanine Aminotransferase (ALT/SGPT) 19, Alkaline Phosphatase 196H, Ammonia 76H, Total Protein 6.3L, Albumin 1.5L, Globulin 4.8, Albumin/Globulin Ratio 0.3L Current Medications Medications (Trade) Dose Ordered Sig/Almaz Route PRN Reason Start Time Stop Time Status Last Admin Dose Admin Acetaminophen (Tylenol) 650 mg Q4H PRN ORAL fever 04/20/19 02:00 05/18/19 09:59 Dextrose (Dextrose 50%) 25 ml Q30M PRN IV Hypoglycemia 04/19/19 23:00 05/18/19 09:53 Dextrose (Dextrose 50%) 50 ml Q30M PRN IV hypoglycemia 04/19/19 23:00 05/18/19 09:59 Dextrose/Sodium Chloride 1,000 ml @ 75 mls/hr [id number] IV 04/19/19 23:00 05/18/19 09:52 04/21/19 02:35 Diphenhydramine HCl (Benadryl) 25 mg Q6H PRN ORAL Itching/Pruritis 04/19/19 23:00 05/18/19 04:59 Lactulose (Cephulac) 30 gm THREE TIMES A DAY ORAL 8/21/19 09:00 05/19/19 12:59 04/20/19 18:46 Morphine Sulfate (Morphine Sulfate) 2 mg Q4H PRN IVP severe Pain (Pain Scale 7-10) 04/20/19 01:00 04/25/19 04:59 Nitroglycerin (Ntg) 0.4 mg Q5M X 3 DOSES PRN SL Prn Chest Pain 04/19/19 23:00 05/18/19 09:59 Ondansetron HCl (Zofran) 4 mg Q6H PRN IVP Nausea & Vomiting 04/19/19 23:00 05/18/19 04:59 Polyethylene Glycol (Miralax) 17 gm HSPRN PRN ORAL Constipation 04/20/19 10:00 05/18/19 09:59 Rifaximin (Xifaxan) 550 mg EVERY 12 HOURS ORAL 04/20/19 09:00 04/25/19 20:59 04/21/19 10:56 Temazepam (Restoril) 15 mg HSPRN PRN ORAL Insomnia 04/20/19 10:00 04/25/19 09:59 Shireen Khan MD Apr 21, 2019 12:02
--- NOTE | 2019-04-21 14:07 | NUR ---
P.T Note: P.T evaluation completed and treatment initiated. Please refer to P.T evaluation for current functional status. Pt is alert, non verbal , essentially not able to follow simple one step commands. Pt moans and groans when BLE are being passively moved/reposition but not able to indicate/verbalize pain nor discomfort. Pt appeared generally weak. Pt. able to turn/roll with mod/max A and needed MAX A x 1 to rise from supine to/from sitting. position. Pt able to sit unsupported at the EOB however too weak to stand. Pt will benefit from skilled P.T services to improve her strength and activity tolerance to improve her mobility independence. Recommend SNF for further rehab VS home P.T depending on progress.
--- NOTE | 2019-04-21 15:20 | NUR ---
Social Service Note SW and CM Coordinator went to patient's room to assess for home safety and to obtain an emergency contact. Patient's friend Tremayne [phone] was at bedside. Patient was awake but was non-verbal during discussion. CM Coordinator provided Albanian translation. Tremayne states patient lives in an apartment with a roommate. Prior to admission Tremayne states patient was independent but since Thursday patient appeared lethargic and wasn't eating that much. Tremayne states patient has not been drinking at home. Patient has two sons, and provided one son's name Matteo Mijares. Tremayne would not provide his phone number but would provide son SW contact information. SHE explained the importance of speaking with patient's sons to discuss treatment plan of care. PT indicating SNF placement. Will monitor and follow up.
[2019-04-21 16:00] VITALS: BP 133/79
--- NOTE | 2019-04-21 17:54 | Internal Med Progress Note ---
Subjective Date of Service: Apr 21, 2019 Physician Name Jose Benjamin Attending Physician Goldy Amador MD Current Medications Medications (Trade) Dose Ordered Sig/Almaz Route PRN Reason Start Time Stop Time Status Last Admin Dose Admin Acetaminophen (Tylenol) 650 mg Q4H PRN ORAL fever 04/20/19 02:00 05/18/19 09:59 Dextrose (Dextrose 50%) 25 ml Q30M PRN IV Hypoglycemia 04/19/19 23:00 05/18/19 09:53 Dextrose (Dextrose 50%) 50 ml Q30M PRN IV hypoglycemia 04/19/19 23:00 05/18/19 09:59 Dextrose/Sodium Chloride 1,000 ml @ 75 mls/hr [id number] IV 04/19/19 23:00 05/18/19 09:52 04/21/19 15:32 Diphenhydramine HCl (Benadryl) 25 mg Q6H PRN ORAL Itching/Pruritis 04/19/19 23:00 05/18/19 04:59 Lactulose (Cephulac) 30 gm THREE TIMES A DAY ORAL 04/20/19 09:00 05/19/19 12:59 04/20/19 18:46 Morphine Sulfate (Morphine Sulfate) 2 mg Q4H PRN IVP severe Pain (Pain Scale 7-10) 04/20/19 01:00 04/25/19 04:59 Nitroglycerin (Ntg) 0.4 mg Q5M X 3 DOSES PRN SL Prn Chest Pain 04/19/19 23:00 05/18/19 09:59 Ondansetron HCl (Zofran) 4 mg Q6H PRN IVP Nausea & Vomiting 04/19/19 23:00 05/18/19 04:59 Polyethylene Glycol (Miralax) 17 gm HSPRN PRN ORAL Constipation 04/20/19 10:00 05/18/19 09:59 Rifaximin (Xifaxan) 550 mg EVERY 12 HOURS ORAL 04/20/19 09:00 04/25/19 20:59 04/21/19 10:56 Temazepam (Restoril) 15 mg HSPRN PRN ORAL Insomnia 04/20/19 10:00 04/25/19 09:59 Allergies: Coded Allergies: No Known Allergies (Unverified , 01/31/19) ROS Limited/Unobtainable: No Constitutional: Reports: no symptoms HEENT: Reports: no symptoms Cardiovascular: Reports: no symptoms Respiratory: Reports: no symptoms Gastrointestinal/Abdominal: Reports: no symptoms Genitourinary: Reports: no symptoms Neurologic/Psychiatric: Reports: no symptoms Subjective 58 YO F admitted with altered mental status and ascites. S/P paracentesis . Cover for Int [facility]-Dr Amador Objective Last Vital Signs Date Time Temp Pulse Resp B/P (MAP) Pulse Ox O2 Delivery O2 Flow Rate FiO2 04/21/19 16:00 99.7 95 20 133/79 (97) 95 04/21/19 09:00 Room Air Laboratory Tests Test 04/21/19 05:28 White Blood Count 5.5 K/UL (4.8-10.8) Red Blood Count 3.83 M/UL (4.20-5.40) L Hemoglobin 9.5 G/DL (12.0-16.0) L Hematocrit 31.6 % (37.0-47.0) L Mean Corpuscular Volume 83 FL (80-99) Mean Corpuscular Hemoglobin 24.9 PG (27.0-31.0) L Mean Corpuscular Hemoglobin Concent 30.2 G/DL (32.0-36.0) L Red Cell Distribution Width 18.6 % (11.6-14.8) H Platelet Count 65 K/UL (150-450) L Mean Platelet Volume 7.0 FL (6.5-10.1) Neutrophils (%) (Auto) % (45.0-75.0) Lymphocytes (%) (Auto) % (20.0-45.0) Monocytes (%) (Auto) % (1.0-10.0) Eosinophils (%) (Auto) % (0.0-3.0) Basophils (%) (Auto) % (0.0-2.0) Differential Total Cells Counted 100 Neutrophils % (Manual) 86 % (45-75) H Lymphocytes % (Manual) 8 % (20-45) L Monocytes % (Manual) 2 % (1-10) Eosinophils % (Manual) 3 % (0-3) Basophils % (Manual) 1 % (0-2) Band Neutrophils 0 % (0-8) Platelet Estimate Decreased L Platelet Morphology Normal Hypochromasia 2+ Anisocytosis 2+ Sodium Level 141 MMOL/L (136-145) Potassium Level 3.3 MMOL/L (3.5-5.1) L Chloride Level 111 MMOL/L (98-107) H Carbon Dioxide Level 20 MMOL/L (21-32) L Anion Gap 10 mmol/L (5-15) Blood Urea Nitrogen 21 mg/dL (7-18) H Creatinine 1.5 MG/DL (0.55-1.30) H Estimat Glomerular Filtration Rate 35.8 mL/min (>60) Glucose Level 129 MG/DL (74-106) H Calcium Level 8.2 MG/DL (8.5-10.1) L Total Bilirubin 2.7 MG/DL (0.2-1.0) H Direct Bilirubin 1.4 MG/DL (0.0-0.3) H Aspartate Amino Transf (AST/SGOT) 33 U/L (15-37) Alanine Aminotransferase (ALT/SGPT) 19 U/L (12-78) Alkaline Phosphatase 196 U/L (46-116) H Ammonia 76 umol/L (11-32) H Total Protein 6.3 G/DL (6.4-8.2) L Albumin 1.5 G/DL (3.4-5.0) L Globulin 4.8 g/dL Albumin/Globulin Ratio 0.3 (1.0-2.7) L Microbiology Date/Time Source Procedure Growth Status 04/19/19 08:50 Nasal Nares MRSA Culture - Final NO METHICILLIN RESISTANT STAPH AUREUS... Complete 04/19/19 13:06 Urine,Clean Catch Urine Culture - Preliminary Gram Positive Cocci Resulted 04/19/19 08:50 Rectum - Final NO CARBAPENEM-RESISTANT ENTEROBACTERI... Complete 04/19/19 08:50 Rectum VRE Culture - Final Enterococcus Faecium - Vre Complete Intake and Output 04/20/19 04/21/19 19:00 07:00 Intake Total 695 ml 900 ml Balance 695 ml 900 ml Intake Oral 620 ml IV Total 75 ml 900 ml # Voids 3 2 Objective PHYSICAL EXAMINATION: GENERAL: The patient is a well-developed and well-nourished obese female, in no apparent distress. HEENT: Eyes, pupils are equal and responsive to light and accommodation. Extraocular movements are intact. NECK: Supple without lymphadenopathy. CHEST: Lungs are clear to auscultation bilaterally without wheezes or rales. CARDIOVASCULAR: Regular rhythm and rate. S1, S2 are normal without murmurs, rubs, or gallops. ABDOMEN: Soft, distended with fluid wave present. No evidence of hepatosplenomegaly. Currently, no rebound or guarding noted. EXTREMITIES: Negative for clubbing, cyanosis, or edema. RECTAL/GENITAL: Not performed. NEUROLOGIC: Cranial nerves II through XII grossly intact without focal deficits. Assessment/Plan Assessment/Plan ASSESSMENT: This is a 58-year-old female. 1. Altered mental status. 2. Ascites. 3. Edema. 4. Acute renal failure. 5. History of gastrointestinal hemorrhage. 6. Liver cirrhosis. 7. Hepatic encephalopathy. 8. Diabetes type 2. 9. Hypertension. 10. Alcohol dependence. TREATMENT: 1. Altered mental status. This may be secondary to elevated ammonia level as above. The patient has been started empirically on lactulose. A Gastroenterology consultation has been obtained with Dr. Jon Torres. We will follow recommendations of Gastroenterology. 2. Ascites/edema. This is probably secondary to liver failure as above. S/P paracentesis 04/18/19. 3. Renal failure. A Nephrology consultation has been obtained with Dr. Byers. This is probably hepatorenal failure. 4. History of gastrointestinal hemorrhage. As above, a Gastroenterology consultation has been obtained with Dr. Jon Torres. The patient is status post endoscopy with hemostasis of [place]ul[place] lesion. 5. Liver cirrhosis. As above, a gastroenterology consultation has been obtained with Dr. Jon Torres. 6. Hepatic encephalopathy. Continue Xifaxan and lactulose as above. 7. Diabetes type 2. A NovoLog sliding scale has been instituted. 8. Hypertension. Continue amlodipine as above. 9. Alcohol dependence. 10. Await endoscopy 04/22/19 Jose Benjamin MD Apr 21, 2019 17:54
--- NOTE | 2019-04-21 18:30 | NUR ---
NURSE NOTES: Patient respond with one word,patient was able to say Hello,but does not hold a conversation.IV continue to infuse,patient not taking much by mouth.Bed alarm on,call light within reach.
[2019-04-21 20:00] VITALS: BP 123/87
--- NOTE | 2019-04-21 20:00 | NUR ---
HAND-OFF: Report given to Funmilayo RN.
--- NOTE | 2019-04-21 20:15 | NUR ---
NURSE NOTES: RECEIVED PT FROM CHAVA WHITNEY. PT IS AWAKE, AAOX1, SITTING UP IN BED, ROOM AIR, NO ACUTE DISTRESS NOTED. REENFORCED TEACHING ON NPO ORDER AT MIDNIGHT PER PROCEDURE. OPEN SORE AND DARK SCAB NOTED ON MIDDLE FINGER ON LEFT HAND, EXCORIATION ON RIGHT GROIN AREA NOTED. ECCHYMOSIS NOTED ON UPPER CHEST, ROGT Addendum: 04/22/19 at 0306 by Cassandra Ramos RN ECCHYMOSIS NOTED ON UPPER CHEST, RIGHT UPPER BACK, AND SHOULDERS. IV NOTED ON LEFT WRIST 20G, AND RIGHT HAND 20G IS INTACT AND PATENT, RUNNING D5 1/2 NS AT 75ML/HR. BED IS LOCKED AT THE LOWEST POSITION, BED ALARM ACTIVE, SIDE RAILS UP X2, AND CALL LIGHT IS WITHIN REACH. WILL CONTINUE TO MONITOR.
--- NOTE | 2019-04-21 21:15 | NUR ---
NURSE NOTES: SON NEREYDA RODRIGUEZ AT BEDSIDE, SIGNED PATIENT CONSENT FOR EGD PROCEDURE. NEREYDA RODRIGUEZ CELL PHONE #: [phone] HE CAN BE CONTACTED FROM 11 - 11:30AM DURING LUNCH BREAK ON WEEKDAYS. 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 PLEASE LEAVE A VOICEMAIL IF UNABLE TO REACH HIM.
[2019-04-22] VITALS (12 sets, daily range): BP systolic 126–149; BP diastolic 76–93
[2019-04-22] MEDS: D5 1/2NS 1,000 ML IV SCH ×2 (04:37→18:08)
--- NOTE | 2019-04-22 04:51 | NUR ---
NURSE NOTES: IVs D/C PER PATIENT. INSERTED NEW IV ON LEFT THUMB 24G.
[2019-04-22 05:31] LABS: HEMATOCRIT 34.1 % (37.0-47.0); HEMOGLOBIN 10.2 G/DL (12.0-16.0); MEAN CORPUSCULAR VOLUME 83 FL (80-99); PLATELET COUNT 61 K/UL (150-450); RED CELL DISTRIBUTION WIDTH 18.9 % (11.6-14.8); WHITE BLOOD COUNT 5.4 K/UL (4.8-10.8)
[2019-04-22 05:45] LABS: INR 1.4 (0.9-1.1)
[2019-04-22 06:03] LABS: ALANINE AMINOTRANSFERASE 24 U/L (12-78); ALBUMIN 1.6 G/DL (3.4-5.0); ALBUMIN/GLOBULIN RATIO 0.3 (1.0-2.7); ALKALINE PHOSPHATASE 221 U/L (46-116); ANION GAP 9 mmol/L (5-15); ASPARTATE AMINO TRANSFERASE 48 U/L (15-37); BILIRUBIN,TOTAL 3.1 MG/DL (0.2-1.0); BLOOD UREA NITROGEN 19 mg/dL (7-18); CALCIUM 8.4 MG/DL (8.5-10.1); CARBON DIOXIDE 21 MMOL/L (21-32); CHLORIDE 110 MMOL/L (98-107); CREATININE 1.4 MG/DL (0.55-1.30); POTASSIUM 3.6 MMOL/L (3.5-5.1); SODIUM 139 MMOL/L (136-145)
[2019-04-22 06:07] LABS: BILIRUBIN,DIRECT 1.3 MG/DL (0.0-0.3)
--- NOTE | 2019-04-22 07:40 | NUR ---
NURSE NOTES: Received pt in bed. AAOx1. Room air. No c/o of pain/distress. IV on L thumb 24g intact and patent, running D5 1/2 NS @ 75 ml/hr. Currently on NPO for EGD scheduled at 0830. Bed in the lowest, locked, and alarm on. Call light within reach. Will continue to monitor
--- NOTE | 2019-04-22 07:56 | NUR ---
HAND-OFF: Report given to CHAVA Lopez.
--- NOTE | 2019-04-22 08:11 | Anethesia Preoperative Eval ---
Anesthesia Pre-op PMH/ROS General Date of Evaluation: Apr 22, 2019 Time of Evaluation: 08:07 Anesthesiologist: Nomi ASA Score: ASA 4 Mallampati Score Class I : Soft palate, uvula, fauces, pillars visible Class II: Soft palate, uvula, fauces visible Class III: Soft palate, base of uvula visible Class IV: Only hard plate visible Mallampati Classification: Class III Surgeon: Brian Diagnosis: Liver cirrosis Surgical Procedure: EGD Anesthesia History: none Social History: alcohol use - h/o abuse Family History: no anesthesia problems Allergies: Coded Allergies: No Known Allergies (Unverified , 01/31/19) Medications: see eMAR Patient NPO?: Yes Past Medical History Cardiovascular: Reports: HTN; Denies: CAD, [place], valve dz, arrhythmia, other Pulmonary: Reports: YASMINE; Denies: asthma, COPD, other Gastrointestinal/Genitourinary: Reports: GERD, CRI, other - liver cirrosis; Denies: ESRD Neurologic/Psychiatric: Reports: dementia - hepatic encephalopathy; Denies: CVA, depression/anxiety, TIA, other Endocrine: Reports: DM; Denies: hypothyroidism, steroids, other HEENT: Denies: cataract (L), cataract (R), glaucoma, SUN'AQ (L), SUN'AQ (R), other Hematology/Immune: Reports: anemia, bleeding disorder - coagulopathy, low platelets; Denies: DVT, other Musculoskeletal/Integumentary: Denies: OA, RA, DJD, DDD, edema, other Other: obesity PMH Narrative: as above PSxH Narrative: see H&P Anesthesia Pre-op Phys. Exam Physician Exam Last Vital Signs Date Time Temp Pulse Resp B/P (MAP) Pulse Ox O2 Delivery O2 Flow Rate FiO2 04/22/19 04:00 97.7 88 18 140/83 (102) 96 04/21/19 21:00 Room Air Constitutional: NAD Neurologic: other - unable to obtaine Cardiovascular: RRR Respiratory: other - diminished breath sounds Gastrointestinal: S/NT/ND Airway Exam Mallampati Score: Class III MO: limited Neck: stiff ROM: limited Teeth: missing Dentures: no upper, no lower Anesthesia Pre-op A/P Labs Hematology Test 04/22/19 04:52 White Blood Count 5.4 K/UL (4.8-10.8) Red Blood Count 4.10 M/UL (4.20-5.40) L Hemoglobin 10.2 G/DL (12.0-16.0) L Hematocrit 34.1 % (37.0-47.0) L Mean Corpuscular Volume 83 FL (80-99) Mean Corpuscular Hemoglobin 24.9 PG (27.0-31.0) L Mean Corpuscular Hemoglobin Concent 30.0 G/DL (32.0-36.0) L Red Cell Distribution Width 18.9 % (11.6-14.8) H Platelet Count 61 K/UL (150-450) L Mean Platelet Volume 6.8 FL (6.5-10.1) Neutrophils (%) (Auto) % (45.0-75.0) Lymphocytes (%) (Auto) % (20.0-45.0) Monocytes (%) (Auto) % (1.0-10.0) Eosinophils (%) (Auto) % (0.0-3.0) Basophils (%) (Auto) % (0.0-2.0) Coagulation Test 04/22/19 04:52 Prothrombin Time 14.8 SEC (9.30-11.50) H Prothromb Time International Ratio 1.4 (0.9-1.1) H Activated Partial Thromboplast Time 30 SEC (23-33) Chemistry Test 04/22/19 04:52 Sodium Level 139 MMOL/L (136-145) Potassium Level 3.6 MMOL/L (3.5-5.1) Chloride Level 110 MMOL/L (98-107) H Carbon Dioxide Level 21 MMOL/L (21-32) Anion Gap 9 mmol/L (5-15) Blood Urea Nitrogen 19 mg/dL (7-18) H Creatinine 1.4 MG/DL (0.55-1.30) H Estimat Glomerular Filtration Rate 38.7 mL/min (>60) Glucose Level 139 MG/DL (74-106) H Calcium Level 8.4 MG/DL (8.5-10.1) L Total Bilirubin 3.1 MG/DL (0.2-1.0) H Direct Bilirubin 1.3 MG/DL (0.0-0.3) H Aspartate Amino Transf (AST/SGOT) 48 U/L (15-37) H Alanine Aminotransferase (ALT/SGPT) 24 U/L (12-78) Alkaline Phosphatase 221 U/L (46-116) H Total Protein 7.1 G/DL (6.4-8.2) Albumin 1.6 G/DL (3.4-5.0) L Globulin 5.5 g/dL Albumin/Globulin Ratio 0.3 (1.0-2.7) L Risk Assessment & Plan Assessment: ASA 4 Plan: MAC Status Change Before Surgery: Manolo Leija MD Apr 22, 2019 08:11
[2019-04-22] MEDS ORDERED: fentaNYL 100 mcg/2 mL IV PRN (08:15)
[2019-04-22] MEDS ORDERED: NS 500ML IVPB ONE (08:25)
--- NOTE | 2019-04-22 08:28 | NUR ---
NURSE NOTES: Patient is off the unit for EGD
[2019-04-22] MEDS ORDERED: Propofol 200mg/20ml IV ONE (08:30)
--- NOTE | 2019-04-22 08:44 | Pre-Procedure Note/Attestation ---
Pre-Procedure Note/Attestation Complete Prior to Procedure Planned Procedure: not applicable Procedure Narrative: egd Indications for Procedure Pre-Operative Diagnosis: gib Attestation I attest that I discussed the nature of the procedure; its benefits; risks and complications; and alternatives (and the risks and benefits of such alternatives ), prior to the procedure, with the patient (or the patient's legal sales representative girls' apparel). I attest that, if there was a reasonable possibility of needing a blood transfusion, the patient (or the patient's legal sales representative girls' apparel) was given the [facility] standardized written summary, pursuant to the Elijah Damian Blood Safety Act ([place] Health and Safety Code # 1645, as amended). I attest that I re-evaluated the patient just prior to the surgery and that there has been no change in the patient's H&P, except as documented below: Jon Torres MD Apr 22, 2019 08:44
--- NOTE | 2019-04-22 08:51 | Endoscopy Procedure Note ---
Endoscopy Procedure Note General Indication for Procedure: gib Procedures Performed: EGD Operative Findings/Diagnosis: gastritis Specimen: yes Pt Tolerated Procedure Well: Yes Estimated Blood Loss: none Anesthesia Anesthesiologist: ania Anesthesia: MAC Inserted Devices Implant(s) used?: No GI Core Measures 50 yrs or older w/o bx or poly: Not Applicable 10yrs. F/U recommended: Not Applicable Jon Torres MD Apr 22, 2019 08:50
--- NOTE | 2019-04-22 09:21 | Immediate Post-Op Evaluation ---
Immediate Post-Op Evalulation Immediate Post-Op Evalulation Procedure: EGD with Bx Date of Evaluation: Apr 22, 2019 Time of Evaluation: 08:58 IV Fluids: 200 Blood Products: none Estimated Blood Loss: none Urinary Output: none Blood Pressure Systolic: 124 Blood Pressure Diastolic: 64 Pulse Rate: 76 Respiratory Rate: 22 O2 Sat by Pulse Oximetry: 94 Temperature (Fahrenheit): 97.4 Pain Score (1-10): 1 Nausea: No Vomiting: No Complications none Patient Status: reacts, patent, none Hydration Status: adequate Manolo Mosher MD Apr 22, 2019 09:21
--- NOTE | 2019-04-22 09:45 | NUR ---
NURSE NOTES: Pt came back to floor from EGD biopsy by abdulkadir. Got report from Esperanza Velasco RN. On NC 3L/min. Stable vital sign. BP 114/93 NV 85 SpO2 93%. No s/s of distress. Bed in the lowest, locked, and alarm on. Call light within reach. Will continue to monitor
[2019-04-22] MEDS: Lactulose 20gm/30ml UDC ORAL SCH ×3 (09:55→12:23)
[2019-04-22] MEDS: Morphine Sulfate 2mg/ml Inj(IV/IM USE ONLY) IVP PRN (10:02)
--- NOTE | 2019-04-22 10:45 | Procedure Note ---
DATE OF PROCEDURE: 04/22/2019 SURGEON: Jon Torres M.D. PROCEDURE: Upper endoscopy with biopsy. ANESTHESIA: Per Dr. Mosher. INSTRUMENT: Olympus adult flexible upper endoscope. INDICATION: Upper GI bleeding. REASON FOR PROCEDURE: The procedure, risks, benefits, and possible consequences, including hemorrhage, aspiration, perforation and infection, and alternative treatments, were explained to the patient/legal guardian by Dr. Jon Torres and the patient/legal guardian understood and accepted these risks. PROCEDURE IN DETAIL: After informed consent was obtained and the patient was adequately sedated, Olympus upper endoscope was advanced from the mouth into the second portion of the duodenum and retroflexion was performed in the stomach. The patient had no evidence of esophageal varices. No gastric varices. In the stomach, there was moderate portal hypertensive gastropathy most probably source of bleeding. Also in the prepyloric region, there was a very shallow ulcer may be erosion. Biopsy from antrum was obtained to rule out H. pylori infection. At this time, the upper endoscope was retrieved and procedure was terminated. SUMMARY OF FINDINGS: 1. No esophageal, no gastric varices. 2. Portal hypertensive gastropathy, moderate to severe. 3. Shallow gastric ulcer. RECOMMENDATIONS: Followup biopsy results and treat accordingly. I want to thank, Dr. Goldy Amador and Dr. Biggs for this kind referral. Jon Torres M.D. DR: Alyx JOB#: [id number] CC: Goldy Amador M.D.; Fax#: [phone] JADEN BIGGS M.D. ; FAX#: [phone]
--- NOTE | 2019-04-22 11:43 | Pulmonology Progress Note ---
Assessment/Plan Problems: (1) Acute metabolic encephalopathy (2) Hepatic encephalopathy (3) Ascites (4) Anasarca (5) Liver cirrhosis (6) ETOH abuse Assessment/Plan cytology reviewed, negative for malignancy EGD done with biopsy awake, no nee complains renal w/u rule out SBP symptomatic treatment social service consult note appreciated, we are looking for the pts son to discuss plan of care. Subjective ROS Limited/Unobtainable: No Constitutional: Reports: no symptoms HEENT: Repors: no symptoms Allergies: Coded Allergies: No Known Allergies (Unverified , 01/31/19) Objective Last 24 Hour Vital Signs Date Time Temp Pulse Resp B/P (MAP) Pulse Ox O2 Delivery O2 Flow Rate FiO2 04/22/19 09:30 97.1 84 15 149/93 97 Nasal Cannula 3 04/22/19 09:21 76 22 94 04/22/19 09:20 88 16 136/81 96 Nasal Cannula 3 04/22/19 09:15 82 14 126/81 92 Nasal Cannula 3 04/22/19 09:10 82 13 137/88 93 Nasal Cannula 3 04/22/19 09:05 83 15 134/82 93 Nasal Cannula 3 04/22/19 09:00 Room Air 04/22/19 08:58 97.3 84 12 126/81 92 Nasal Cannula 3 04/22/19 08:00 98.1 83 20 132/76 (94) 96 04/22/19 04:00 97.7 88 18 140/83 (102) 96 04/22/19 00:00 97.1 95 20 126/89 (101) 98 04/21/19 21:00 Room Air 04/21/19 20:00 96.9 94 19 123/87 (99) 95 04/21/19 16:00 99.7 95 20 133/79 (97) 95 04/21/19 12:00 98.7 93 19 141/81 (101) 95 Intake and Output 04/21/19 04/22/19 18:59 06:59 Intake Total 900 ml 900 ml Output Total 180 ml Balance 900 ml 720 ml IV Total 900 ml 900 ml Output Urine Total 180 ml # Voids 3 3 General Appearance: WD/WN HEENT: normocephalic, atraumatic Respiratory/Chest: chest wall non-tender, lungs clear Breasts: no masses Cardiovascular: normal peripheral pulses Abdomen: normal bowel sounds, soft, non tender Genitourinary: normal external genitalia Extremities: no cyanosis Skin: no rash 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 Microbiology Date/Time Source Procedure Growth Status 04/19/19 13:06 Urine,Clean Catch Urine Culture - Final Enterococcus Faecium - Vre Complete Laboratory Tests 04/22/19 04:52: White Blood Count 5.4, Red Blood Count 4.10L, Hemoglobin 10.2L, Hematocrit 34.1L , Mean Corpuscular Volume 83, Mean Corpuscular Hemoglobin 24.9L, Mean Corpuscular Hemoglobin Concent 30.0L, Red Cell Distribution Width 18.9H, Platelet Count 61L, Mean Platelet Volume 6.8, Neutrophils (%) (Auto) , Lymphocytes (%) (Auto) , Monocytes (%) (Auto) , Eosinophils (%) (Auto) , Basophils (%) (Auto) , Prothrombin Time 14.8H, Prothromb Time International Ratio 1.4H, Activated Partial Thromboplast Time 30, Sodium Level 139, Potassium Level 3.6, Chloride Level 110H, Carbon Dioxide Level 21, Anion Gap 9, Blood Urea Nitrogen 19H, Creatinine 1.4H, Estimat Glomerular Filtration Rate 38.7, Glucose Level 139H, Calcium Level 8.4L, Total Bilirubin 3.1H, Direct Bilirubin 1.3H, Aspartate Amino Transf (AST/SGOT) 48H, Alanine Aminotransferase (ALT/SGPT ) 24, Alkaline Phosphatase 221H, Total Protein 7.1, Albumin 1.6L, Globulin 5.5, Albumin/Globulin Ratio 0.3L Current Medications Medications (Trade) Dose Ordered Sig/Almaz Route PRN Reason Start Time Stop Time Status Last Admin Dose Admin Acetaminophen (Tylenol) 650 mg Q4H PRN ORAL fever 04/20/19 02:00 05/18/19 09:59 Dextrose (Dextrose 50%) 25 ml Q30M PRN IV Hypoglycemia 04/19/19 23:00 05/18/19 09:53 Dextrose (Dextrose 50%) 50 ml Q30M PRN IV hypoglycemia 04/19/19 23:00 05/18/19 09:59 Dextrose/Sodium Chloride 1,000 ml @ 75 mls/hr [id number] IV 04/19/19 23:00 05/18/19 09:52 04/22/19 04:37 Diphenhydramine HCl (Benadryl) 25 mg Q6H PRN ORAL Itching/Pruritis 04/19/19 23:00 05/18/19 04:59 Lactulose (Cephulac) 30 gm THREE TIMES A DAY ORAL 04/20/19 09:00 05/19/19 12:59 04/22/19 09:55 Morphine Sulfate (Morphine Sulfate) 2 mg Q4H PRN IVP severe Pain (Pain Scale 7-10) 04/20/19 01:00 04/25/19 04:59 04/22/19 10:02 Nitroglycerin (Ntg) 0.4 mg Q5M X 3 DOSES PRN SL Prn Chest Pain 04/19/19 23:00 05/18/19 09:59 Ondansetron HCl (Zofran) 4 mg Q6H PRN IVP Nausea & Vomiting 04/19/19 23:00 05/18/19 04:59 Polyethylene Glycol (Miralax) 17 gm HSPRN PRN ORAL Constipation 04/20/19 10:00 05/18/19 09:59 Rifaximin (Xifaxan) 550 mg EVERY 12 HOURS ORAL 04/20/19 09:00 04/25/19 20:59 04/22/19 09:55 Temazepam (Restoril) 15 mg HSPRN PRN ORAL Insomnia 04/20/19 10:00 04/25/19 09:59 Shireen Khan MD Apr 22, 2019 11:43
--- NOTE | 2019-04-22 12:09 | General Progress Note ---
Assessment/Plan Status: progressing Assessment/Plan: (1) Acute metabolic encephalopathy ICD Codes: G93.41 - Metabolic encephalopathy SNOMED: 65130947, 786581294 (2) Liver cirrhosis ICD Codes: K74.60 - Unspecified cirrhosis of liver SNOMED: 97908355 (3) Abdominal pain ICD Codes: R10.9 - Unspecified abdominal pain SNOMED: 70663221 (4) Altered mental status ICD Codes: R41.82 - Altered mental status, unspecified SNOMED: 783928649 Qualifiers: Qualified Codes: R41.82 - Altered mental status, unspecified (5) Ascites ICD Codes: R18.8 - Other ascites SNOMED: 104127579 Qualifiers: Qualified Codes: K70.31 - Alcoholic cirrhosis of liver with ascites (6) Anasarca ICD Codes: R60.1 - Generalized edema SNOMED: 197991338, 477295893 (7) Hepatic encephalopathy ICD Codes: K72.90 - Hepatic failure, unspecified without coma SNOMED: 48139312 Status: progressing Status Narrative Discussed with Dr. Torres. Assessment/Plan s/p paracentesis in the ED >> yielding 7.9L s/p EGD 02/04/19 with active bleed from Dieulafoy lesion OB stool positive s/p EGD monitor H&H, prn transfusions bowel regimen ppi lactulose + xifaxan adv diet fu labs Subjective ROS Limited/Unobtainable: Yes Allergies: Coded Allergies: No Known Allergies (Unverified , 01/31/19) Objective Last 24 Hour Vital Signs Date Time Temp Pulse Resp B/P (MAP) Pulse Ox O2 Delivery O2 Flow Rate FiO2 04/22/19 09:30 97.1 84 15 149/93 97 Nasal Cannula 3 04/22/19 09:21 76 22 94 04/22/19 09:20 88 16 136/81 96 Nasal Cannula 3 04/22/19 09:15 82 14 126/81 92 Nasal Cannula 3 04/22/19 09:10 82 13 137/88 93 Nasal Cannula 3 04/22/19 09:05 83 15 134/82 93 Nasal Cannula 3 04/22/19 09:00 Room Air 04/22/19 08:58 97.3 84 12 126/81 92 Nasal Cannula 3 04/22/19 08:00 98.1 83 20 132/76 (94) 96 8/23/19 04:00 97.7 88 18 140/83 (102) 96 04/22/19 00:00 97.1 95 20 126/89 (101) 98 04/21/19 21:00 Room Air 04/21/19 20:00 96.9 94 19 123/87 (99) 95 04/21/19 16:00 99.7 95 20 133/79 (97) 95 Intake and Output 04/21/19 04/22/19 18:59 06:59 Intake Total 900 ml 900 ml Output Total 180 ml Balance 900 ml 720 ml IV Total 900 ml 900 ml Output Urine Total 180 ml # Voids 3 3 Laboratory Tests 04/22/19 04:52: White Blood Count 5.4, Red Blood Count 4.10L, Hemoglobin 10.2L, Hematocrit 34.1L , Mean Corpuscular Volume 83, Mean Corpuscular Hemoglobin 24.9L, Mean Corpuscular Hemoglobin Concent 30.0L, Red Cell Distribution Width 18.9H, Platelet Count 61L, Mean Platelet Volume 6.8, Neutrophils (%) (Auto) , Lymphocytes (%) (Auto) , Monocytes (%) (Auto) , Eosinophils (%) (Auto) , Basophils (%) (Auto) , Prothrombin Time 14.8H, Prothromb Time International Ratio 1.4H, Activated Partial Thromboplast Time 30, Sodium Level 139, Potassium Level 3.6, Chloride Level 110H, Carbon Dioxide Level 21, Anion Gap 9, Blood Urea Nitrogen 19H, Creatinine 1.4H, Estimat Glomerular Filtration Rate 38.7, Glucose Level 139H, Calcium Level 8.4L, Total Bilirubin 3.1H, Direct Bilirubin 1.3H, Aspartate Amino Transf (AST/SGOT) 48H, Alanine Aminotransferase (ALT/SGPT ) 24, Alkaline Phosphatase 221H, Total Protein 7.1, Albumin 1.6L, Globulin 5.5, Albumin/Globulin Ratio 0.3L Height (Feet): 5 Height (Inches): 4.00 Weight (Pounds): 193 General Appearance: no apparent distress EENT: normal ENT inspection Neck: supple Cardiovascular: normal rate Respiratory/Chest: decreased breath sounds Abdomen: normal bowel sounds, non tender, soft Extremities: non-tender Jon Torres MD Apr 22, 2019 12:09
--- NOTE | 2019-04-22 13:03 | 48 Hour Post Anesthesia Eval ---
Post Anesthesia Evaluation Procedure: EGD with Bx Date of Evaluation: Apr 22, 2019 Time of Evaluation: 13:02 Blood Pressure Systolic: 106 0: 58 Pulse Rate: 72 Respiratory Rate: 20 Temperature (Fahrenheit): 97.3 O2 Sat by Pulse Oximetry: 98 Airway: patent Nausea: No Vomiting: No Pain Intensity: 1 Hydration Status: adequate Cardiopulmonary Status: stable Mental Status/LOC: patient returned to baseline Follow-up Care/Observations: n/a Post-Anesthesia Complications: none Manolo Mosher MD Apr 22, 2019 13:03
--- NOTE | 2019-04-22 15:11 | NUR ---
Social Service Note SW left a message for patient's son Matteo Mijares [phone]. SHE read note that son is only able to answer his phone during his break from . Will monitor and follow up.
--- NOTE | 2019-04-22 15:20 | NUR ---
CASE MANAGEMENT:REVIEW 04/22/19 SI: HEPATIC ENCEPHALOPATHY ASCITES. S/P PARACENTESIS ~ 7.9L REMOVED 97.7 83 20 135/82 97% ON 3L/NC H/H-10.2/34.1 PLT-61 CR+1.4 TBILI+3.1 DBILI+1.3 IS: LACTULOSE PO TID RIFAXIMIN PO Q12 IVF@75/HR IV MORPHINE Q4HRS PRN : MED/SURG STATUS 4 [facility]
--- NOTE | 2019-04-22 15:24 | NUR ---
DISCHARGE PLANNING HOME VS SNF
--- NOTE | 2019-04-22 16:54 | Internal Med Progress Note ---
Subjective Physician Name Goldy Amador Attending Physician Goldy Amador MD Current Medications Medications (Trade) Dose Ordered Sig/Almaz Route PRN Reason Start Time Stop Time Status Last Admin Dose Admin Acetaminophen (Tylenol) 650 mg Q4H PRN ORAL fever 04/20/19 02:00 05/18/19 09:59 Dextrose (Dextrose 50%) 25 ml Q30M PRN IV Hypoglycemia 04/19/19 23:00 05/18/19 09:53 Dextrose (Dextrose 50%) 50 ml Q30M PRN IV hypoglycemia 04/19/19 23:00 05/18/19 09:59 Dextrose/Sodium Chloride 1,000 ml @ 75 mls/hr [id number] IV 04/19/19 23:00 05/18/19 09:52 04/22/19 04:37 Diphenhydramine HCl (Benadryl) 25 mg Q6H PRN ORAL Itching/Pruritis 04/19/19 23:00 05/18/19 04:59 Lactulose (Cephulac) 30 gm THREE TIMES A DAY ORAL 04/20/19 09:00 05/19/19 12:59 04/22/19 09:55 Morphine Sulfate (Morphine Sulfate) 2 mg Q4H PRN IVP severe Pain (Pain Scale 7-10) 04/20/19 01:00 04/25/19 04:59 04/22/19 10:02 Nitroglycerin (Ntg) 0.4 mg Q5M X 3 DOSES PRN SL Prn Chest Pain 04/19/19 23:00 05/18/19 09:59 Ondansetron HCl (Zofran) 4 mg Q6H PRN IVP Nausea & Vomiting 04/19/19 23:00 05/18/19 04:59 04/22/19 12:20 Polyethylene Glycol (Miralax) 17 gm HSPRN PRN ORAL Constipation 04/20/19 10:00 05/18/19 09:59 Rifaximin (Xifaxan) 550 mg EVERY 12 HOURS ORAL 04/20/19 09:00 04/25/19 20:59 04/22/19 09:55 Temazepam (Restoril) 15 mg HSPRN PRN ORAL Insomnia 04/20/19 10:00 04/25/19 09:59 Allergies: Coded Allergies: No Known Allergies (Unverified , 01/31/19) Subjective Awake, alert, responsive, complain about abdominal distention and mild tenderness. Objective Last Vital Signs Date Time Temp Pulse Resp B/P (MAP) Pulse Ox O2 Delivery O2 Flow Rate FiO2 04/22/19 16:00 97.2 81 20 142/77 (98) 94 04/22/19 09:30 Nasal Cannula 3 Laboratory Tests Test 04/22/19 04:52 White Blood Count 5.4 K/UL (4.8-10.8) Red Blood Count 4.10 M/UL (4.20-5.40) L Hemoglobin 10.2 G/DL (12.0-16.0) L Hematocrit 34.1 % (37.0-47.0) L Mean Corpuscular Volume 83 FL (80-99) Mean Corpuscular Hemoglobin 24.9 PG (27.0-31.0) L Mean Corpuscular Hemoglobin Concent 30.0 G/DL (32.0-36.0) L Red Cell Distribution Width 18.9 % (11.6-14.8) H Platelet Count 61 K/UL (150-450) L Mean Platelet Volume 6.8 FL (6.5-10.1) Neutrophils (%) (Auto) % (45.0-75.0) Lymphocytes (%) (Auto) % (20.0-45.0) Monocytes (%) (Auto) % (1.0-10.0) Eosinophils (%) (Auto) % (0.0-3.0) Basophils (%) (Auto) % (0.0-2.0) Prothrombin Time 14.8 SEC (9.30-11.50) H Prothromb Time International Ratio 1.4 (0.9-1.1) H Activated Partial Thromboplast Time 30 SEC (23-33) Sodium Level 139 MMOL/L (136-145) Potassium Level 3.6 MMOL/L (3.5-5.1) Chloride Level 110 MMOL/L (98-107) H Carbon Dioxide Level 21 MMOL/L (21-32) Anion Gap 9 mmol/L (5-15) Blood Urea Nitrogen 19 mg/dL (7-18) H Creatinine 1.4 MG/DL (0.55-1.30) H Estimat Glomerular Filtration Rate 38.7 mL/min (>60) Glucose Level 139 MG/DL (74-106) H Calcium Level 8.4 MG/DL (8.5-10.1) L Total Bilirubin 3.1 MG/DL (0.2-1.0) H Direct Bilirubin 1.3 MG/DL (0.0-0.3) H Aspartate Amino Transf (AST/SGOT) 48 U/L (15-37) H Alanine Aminotransferase (ALT/SGPT) 24 U/L (12-78) Alkaline Phosphatase 221 U/L (46-116) H Total Protein 7.1 G/DL (6.4-8.2) Albumin 1.6 G/DL (3.4-5.0) L Globulin 5.5 g/dL Albumin/Globulin Ratio 0.3 (1.0-2.7) L Intake and Output 04/21/19 04/22/19 19:00 07:00 Intake Total 900 ml 825 ml Output Total 180 ml Balance 900 ml 645 ml IV Total 900 ml 825 ml Output Urine Total 180 ml # Voids 3 3 Objective General: No acute distress, awake and alert HEENT: NCAT, sclera anicteric, PERRL, EOMI. Neck: Supple, no significant jugular venous distention, Lungs: Fair inspiratory effort,clear to auscultation bilaterally, no Wheeze or Rales. Heart: Regular rate and rhythm, normal S1/S2, no murmurs Abdomen: soft, generalized tenderness, mildly distended, fluid shift, midline surgical scar was noted / Rectal: Refused and deferred. Extremities: No Cyanosis , clubbing or edema. Neuro: A&O x 3, Able to move all extremities Skin: warm, no rash, ecchymosis on upper extremity noted. Psych: Normal mood and affect Assessment/Plan Assessment/Plan Assessment/Plan Problems: (1) Acute metabolic encephalopathy ICD Codes: G93.41 - Metabolic encephalopathy SNOMED: 22362977, 333597777 (2) Liver cirrhosis ICD Codes: K74.60 - Unspecified cirrhosis of liver SNOMED: 81823602 (3) Abdominal pain ICD Codes: R10.9 - Unspecified abdominal pain SNOMED: 44271019 (4) Altered mental status ICD Codes: R41.82 - Altered mental status, unspecified SNOMED: 881791012 Qualifiers: Qualified Codes: R41.82 - Altered mental status, unspecified (5) Ascites ICD Codes: R18.8 - Other ascites SNOMED: 590987127 Qualifiers: Qualified Codes: K70.31 - Alcoholic cirrhosis of liver with ascites (6) Anasarca ICD Codes: R60.1 - Generalized edema SNOMED: 850225176, 397483767 (7) Hepatic encephalopathy ICD Codes: K72.90 - Hepatic failure, unspecified without coma SNOMED: 77948881 Status: progressing Status Narrative Discussed with Dr. Torres. Assessment/Plan s/p paracentesis in the ED >> yielding 7.9L s/p EGD 02/04/19 with active bleed from Dieulafoy lesion OB stool positive EGD scheduled for tomorrow. - cardiac diet, NPO @ MN. 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
--- NOTE | 2019-04-22 19:11 | NUR ---
HAND-OFF: Report given to CHAVA Trujillo.
--- NOTE | 2019-04-22 20:16 | NUR ---
NURSE NOTES: RECEIVED PT FROM CHAVA INGRAM. PT IS AWAKE, AAOX2, ON ROOM AIR, NO ACUTE DISTRESS NOTED. IV ON LEFT THUMB IS INTACT AND PATENT, RUNNING D5 1/2 NS AT 75 ML/HR. ECCHYMOSIS NOTED ON CHEST , UPPER BACK AND SHOULDERS. EXCORIATION AND REDNESS NOTED IN GROIN AREA, AND OPEN SCAB ON LEFT MIDDLE FINGER. PT DENIES PAIN AND NAUSEA AT THE MOMENT. BED IS LOCKED AT THE LOWEST POSITION, BED ALARMS ACTIVE, SIDE RAILS UP X2, AND CALL LIGHT IS WITHIN REACH. WILL CONTINUE TO MONITOR.
[2019-04-23] VITALS: BP 140/83
[2019-04-23 04:00] VITALS: BP 133/79
[2019-04-23] MEDS: D5 1/2NS 1,000 ML IV SCH ×2 (07:55→21:15)
--- NOTE | 2019-04-23 07:57 | NUR ---
HAND-OFF: Report given to CHAVA CROSS.
[2019-04-23 08:00] VITALS: BP 128/83
--- NOTE | 2019-04-23 08:00 | NUR ---
NURSE NOTES: received pt in bed, asleep. Lebanese speaking. Receives IVF D5 1/2 NS @ 75cc/hr LH access. Bed locked at the lowest position possible, call light within easy reach, siderails x2. Will continue to monitor pt and follow up with the POC.
[2019-04-23] MEDS: Lactulose 20gm/30ml UDC ORAL SCH ×3 (09:40→17:40)
[2019-04-23 12:00] VITALS: BP 130/72
--- NOTE | 2019-04-23 14:01 | Internal Med Progress Note ---
Subjective Date of Service: Apr 23, 2019 Physician Name Jose Benjamin Attending Physician Goldy Amador MD Current Medications Medications (Trade) Dose Ordered Sig/Almaz Route PRN Reason Start Time Stop Time Status Last Admin Dose Admin Acetaminophen (Tylenol) 650 mg Q4H PRN ORAL fever 04/20/19 02:00 05/18/19 09:59 Dextrose (Dextrose 50%) 25 ml Q30M PRN IV Hypoglycemia 04/19/19 23:00 05/18/19 09:53 Dextrose (Dextrose 50%) 50 ml Q30M PRN IV hypoglycemia 04/19/19 23:00 05/18/19 09:59 Dextrose/Sodium Chloride 1,000 ml @ 75 mls/hr [id number] IV 04/19/19 23:00 05/18/19 09:52 04/23/19 07:55 Diphenhydramine HCl (Benadryl) 25 mg Q6H PRN ORAL Itching/Pruritis 04/19/19 23:00 05/18/19 04:59 Lactulose (Cephulac) 30 gm THREE TIMES A DAY ORAL 04/20/19 09:00 05/19/19 12:59 04/23/19 13:37 Morphine Sulfate (Morphine Sulfate) 2 mg Q4H PRN IVP severe Pain (Pain Scale 7-10) 04/20/19 01:00 04/25/19 04:59 04/22/19 10:02 Nitroglycerin (Ntg) 0.4 mg Q5M X 3 DOSES PRN SL Prn Chest Pain 04/19/19 23:00 05/18/19 09:59 Ondansetron HCl (Zofran) 4 mg Q6H PRN IVP Nausea & Vomiting 04/19/19 23:00 05/18/19 04:59 04/22/19 12:20 Polyethylene Glycol (Miralax) 17 gm HSPRN PRN ORAL Constipation 04/20/19 10:00 05/18/19 09:59 Rifaximin (Xifaxan) 550 mg EVERY 12 HOURS ORAL 04/20/19 09:00 04/25/19 20:59 04/23/19 09:40 Temazepam (Restoril) 15 mg HSPRN PRN ORAL Insomnia 04/20/19 10:00 04/25/19 09:59 Allergies: Coded Allergies: No Known Allergies (Unverified , 01/31/19) ROS Limited/Unobtainable: No Constitutional: Reports: no symptoms HEENT: Reports: no symptoms Respiratory: Reports: no symptoms Gastrointestinal/Abdominal: Reports: abdominal pain Genitourinary: Reports: no symptoms Neurologic/Psychiatric: Reports: no symptoms Subjective 58 YO F admitted with altered mental status and ascites. S/P paracentesis . Cover for Int Med-Dr Amador Objective Last Vital Signs Date Time Temp Pulse Resp B/P (MAP) Pulse Ox O2 Delivery O2 Flow Rate FiO2 04/23/19 12:00 96.0 79 18 130/72 (91) 96 04/22/19 21:00 Room Air 04/22/19 09:30 3 Intake and Output 04/22/19 04/23/19 18:59 06:59 Intake Total 1015 ml 750 ml Output Total 250 ml 500 ml Balance 765 ml 250 ml Intake Oral 240 ml IV Total 775 ml 750 ml Output Urine Total 250 ml 500 ml Estimated Blood Loss 0 ml # Voids 2 # Bowel Movements 2 Objective PHYSICAL EXAMINATION: GENERAL: The patient is a well-developed and well-nourished obese female, in no apparent distress. HEENT: Eyes, pupils are equal and responsive to light and accommodation. Extraocular movements are intact. NECK: Supple without lymphadenopathy. CHEST: Lungs are clear to auscultation bilaterally without wheezes or rales. CARDIOVASCULAR: Regular rhythm and rate. S1, S2 are normal without murmurs, rubs, or gallops. ABDOMEN: Soft, distended with fluid wave present. No evidence of hepatosplenomegaly. Currently, no rebound or guarding noted. EXTREMITIES: Negative for clubbing, cyanosis, or edema. RECTAL/GENITAL: Not performed. NEUROLOGIC: Cranial nerves II through XII grossly intact without focal deficits. Assessment/Plan Assessment/Plan ASSESSMENT: This is a 58-year-old female. 1. Altered mental status. 2. Ascites. 3. Edema. 4. Acute renal failure. 5. History of gastrointestinal hemorrhage. 6. Liver cirrhosis. 7. Hepatic encephalopathy. 8. Diabetes type 2. 9. Hypertension. 10. Alcohol dependence. 11. UTI=enterococcus TREATMENT: 1. Altered mental status. This may be secondary to elevated ammonia level as above. The patient has been started empirically on lactulose. A Gastroenterology consultation has been obtained with Dr. Jon Torres. We will follow recommendations of Gastroenterology. 2. Ascites/edema. This is probably secondary to liver failure as above. S/P paracentesis 04/18/19. 3. Renal failure. A Nephrology consultation has been obtained with Dr. Byers. This is probably hepatorenal failure. 4. History of gastrointestinal hemorrhage. As above, a Gastroenterology consultation has been obtained with Dr. Jon Torres. The patient is status post endoscopy with hemostasis of Dieulafoy lesion. 5. Liver cirrhosis. As above, a gastroenterology consultation has been obtained with Dr. Jon Torres. 6. Hepatic encephalopathy. Continue Xifaxan and lactulose as above. 7. Diabetes type 2. A NovoLog sliding scale has been instituted. 8. Hypertension. Continue amlodipine as above. 9. Alcohol dependence. 10. S/Pendoscopy 04/22/19=gastritis 11. Start linezolid; ID consult=Jose Del Angel MD Apr 23, 2019 14:01
--- NOTE | 2019-04-23 14:22 | General Progress Note ---
Assessment/Plan Status: progressing Assessment/Plan: Assessment - Cirrhosis - hepatic encephalopathy - possible liver mass - possible portal vein thrombosis - gallstones - mild azotemia - improving Recommendations xifaxan Lactulose follow labs Abx PPI CT abd with IV contrast next week Subjective Allergies: Coded Allergies: No Known Allergies (Unverified , 01/31/19) Subjective above noted confused labs noted Objective Last 24 Hour Vital Signs Date Time Temp Pulse Resp B/P (MAP) Pulse Ox O2 Delivery O2 Flow Rate FiO2 04/23/19 12:00 96.0 79 18 130/72 (91) 96 04/23/19 08:00 97.6 77 18 128/83 (98) 95 04/23/19 04:00 97.2 77 24 133/79 (97) 95 04/23/19 00:00 97.4 79 18 140/83 (102) 93 04/22/19 21:00 Room Air 04/22/19 20:00 97.3 84 18 142/83 (102) 94 04/22/19 16:00 97.2 81 20 142/77 (98) 94 Intake and Output 04/22/19 04/23/19 18:59 06:59 Intake Total 1015 ml 750 ml Output Total 250 ml 500 ml Balance 765 ml 250 ml Intake Oral 240 ml IV Total 775 ml 750 ml Output Urine Total 250 ml 500 ml Estimated Blood Loss 0 ml # Voids 2 # Bowel Movements 2 Height (Feet): 5 Height (Inches): 4.00 Weight (Pounds): 193 Objective WD woman NCAT supple CTA RR abd soft, distended trace edema Mikhail Elaine MD Apr 23, 2019 14:22
[2019-04-23 16:00] VITALS: BP 126/73
[2019-04-23] MEDS ORDERED: Tubing IV Secondary IV ONE (16:26)
[2019-04-23] MEDS ORDERED: NS 275ml ONE (16:26)
[2019-04-23] MEDS ORDERED: D5 1/2NS 1000ml IV ONE (16:26)
[2019-04-23] MEDS: Morphine Sulfate 2mg/ml Inj(IV/IM USE ONLY) IVP PRN (17:45)
--- NOTE | 2019-04-23 19:19 | NUR ---
HAND-OFF: Report given to CHAVA Ramos.
[2019-04-23 20:00] VITALS: BP 136/87
--- NOTE | 2019-04-23 20:25 | NUR ---
NURSE NOTES: RECEIVED PT FROM CHAVA CROSS. PT IS AWAKE, AAOX3, ON ROOM AIR, NO ACUTE DISTRESS NOTED. RN ASSISTED PT TO USE THE BEDSIDE COMMODE. IV ON LEFT THUMB IS INTACT AND PATENT. ECCHYMOSIS NOTED ON CHEST, BACK AND SHOULDER. REDNESS NOTED IN GROIN AREA, PROVIDED PT WITH SKIN PROTECTANT CREAM. DARK SCAB NOTED ON LEFT MIDDLE FINGER, DRY, OPEN TO AIR. BED IS LOCKED AT THE LOWEST POSITION, BED ALARMS ACTIVE, SIDE RAILS UPX2, AND CALL LIGHT IS WITHIN REACH. WILL CONTINUE TO MONITOR.
[2019-04-23] MEDS ORDERED: Midazolam 2mg/2ml Inj ONE (22:05)
[2019-04-23] MEDS ORDERED: fentaNYL 100 mcg/2 mL IV ONE (22:05)
--- NOTE | 2019-04-23 22:08 | Pulmonology Progress Note ---
Assessment/Plan Problems: (1) Acute metabolic encephalopathy (2) Hepatic encephalopathy (3) Ascites (4) Anasarca (5) Liver cirrhosis (6) ETOH abuse Assessment/Plan cytology reviewed, negative for malignancy EGD done with biopsy awake, no nee complains renal w/u rule out SBP symptomatic treatment social service consult note appreciated, we are looking for the pts son to discuss plan of care. Subjective ROS Limited/Unobtainable: Yes Constitutional: Reports: no symptoms HEENT: Repors: no symptoms Allergies: Coded Allergies: No Known Allergies (Unverified , 01/31/19) Objective Last 24 Hour Vital Signs Date Time Temp Pulse Resp B/P (MAP) Pulse Ox O2 Delivery O2 Flow Rate FiO2 04/23/19 18:15 98.0 04/23/19 16:00 98.0 88 20 126/73 (90) 95 04/23/19 12:00 96.0 79 18 130/72 (91) 96 04/23/19 08:00 97.6 77 18 128/83 (98) 95 04/23/19 04:00 97.2 77 24 133/79 (97) 95 04/23/19 00:00 97.4 79 18 140/83 (102) 93 Intake and Output 04/22/19 04/23/19 19:00 07:00 Intake Total 1015 ml 750 ml Output Total 250 ml 500 ml Balance 765 ml 250 ml Intake Oral 240 ml IV Total 775 ml 750 ml Output Urine Total 250 ml 500 ml Estimated Blood Loss 0 ml # Voids 2 # Bowel Movements 2 Objective General Appearance: WD/WN HEENT: normocephalic, atraumatic Respiratory/Chest: chest wall non-tender, lungs clear Cardiovascular: normal peripheral pulses, normal rate Abdomen: normal bowel sounds, soft, non tender Genitourinary: normal external genitalia Extremities: no clubbing Skin: no rash, no ulcers 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 Musculoskeletal: normal muscle bulk Current Medications Medications (Trade) Dose Ordered Sig/Almaz Route PRN Reason Start Time Stop Time Status Last Admin Dose Admin Acetaminophen (Tylenol) 650 mg Q4H PRN ORAL fever 04/20/19 02:00 05/18/19 09:59 Dextrose (Dextrose 50%) 25 ml Q30M PRN IV Hypoglycemia 04/19/19 23:00 05/18/19 09:53 Dextrose (Dextrose 50%) 50 ml Q30M PRN IV hypoglycemia 04/19/19 23:00 05/18/19 09:59 Dextrose/Sodium Chloride 1,000 ml @ 75 mls/hr [id number] IV 04/19/19 23:00 05/18/19 09:52 04/23/19 21:15 Diphenhydramine HCl (Benadryl) 25 mg Q6H PRN ORAL Itching/Pruritis 04/19/19 23:00 05/18/19 04:59 Lactulose (Cephulac) 30 gm THREE TIMES A DAY ORAL 04/20/19 09:00 05/19/19 12:59 04/23/19 17:40 Linezolid 300 ml @ 300 mls/hr Q12HR IVPB 04/23/19 16:00 04/30/19 15:59 04/23/19 16:21 Morphine Sulfate (Morphine Sulfate) 2 mg Q4H PRN IVP severe Pain (Pain Scale 7-10) 04/20/19 01:00 04/25/19 04:59 04/23/19 17:45 Nitroglycerin (Ntg) 0.4 mg Q5M X 3 DOSES PRN SL Prn Chest Pain 04/19/19 23:00 05/18/19 09:59 Ondansetron HCl (Zofran) 4 mg Q6H PRN IVP Nausea & Vomiting 04/19/19 23:00 05/18/19 04:59 04/22/19 12:20 Polyethylene Glycol (Miralax) 17 gm HSPRN PRN ORAL Constipation 04/20/19 10:00 05/18/19 09:59 Rifaximin (Xifaxan) 550 mg EVERY 12 HOURS ORAL 04/20/19 09:00 04/25/19 20:59 04/23/19 21:15 Temazepam (Restoril) 15 mg HSPRN PRN ORAL Insomnia 04/20/19 10:00 04/25/19 09:59 Shireen Khan MD Apr 23, 2019 22:08
[2019-04-24] VITALS: BP 124/87
[2019-04-24 04:00] VITALS: BP 134/72
--- NOTE | 2019-04-24 07:13 | NUR ---
HAND-OFF: Report given to CHAVA Kessler.
--- NOTE | 2019-04-24 07:39 | NUR ---
NURSE NOTES: received pt laying in bed, awake. Receives IVF D5 1/2 NS @ 75cc/hr L thumb access. Bed locked at the lowest position possible, call light within easy reach, siderails x2. Bedside commode by the bed side, instructed pt to call nurse when she needs to use the BSC. On bed alarm. Will continue to monitor pt and follow up with the POC.
[2019-04-24 08:00] VITALS: BP 118/81
[2019-04-24] MEDS: Morphine Sulfate 2mg/ml Inj(IV/IM USE ONLY) IVP PRN ×2 (09:17→13:34)
[2019-04-24] MEDS: Lactulose 20gm/30ml UDC ORAL SCH ×3 (09:18→18:18)
[2019-04-24] MEDS: D5 1/2NS 1,000 ML IV SCH (09:19)
[2019-04-24 09:32] LABS: HEMATOCRIT 35.9 % (37.0-47.0); HEMOGLOBIN 10.7 G/DL (12.0-16.0); MEAN CORPUSCULAR VOLUME 84 FL (80-99); PLATELET COUNT 63 K/UL (150-450); RED BLOOD COUNT 4.26 M/UL (4.20-5.40); RED CELL DISTRIBUTION WIDTH 18.7 % (11.6-14.8); WHITE BLOOD COUNT 5.2 K/UL (4.8-10.8)
[2019-04-24 09:46] LABS: AMMONIA 44 umol/L (11-32)
[2019-04-24 10:59] LABS: ALANINE AMINOTRANSFERASE 26 U/L (12-78); ALBUMIN 1.6 G/DL (3.4-5.0); ALBUMIN/GLOBULIN RATIO 0.3 (1.0-2.7); ALKALINE PHOSPHATASE 344 U/L (46-116); ANION GAP 7 mmol/L (5-15); ASPARTATE AMINO TRANSFERASE 51 U/L (15-37); BILIRUBIN,TOTAL 3.2 MG/DL (0.2-1.0); BLOOD UREA NITROGEN 17 mg/dL (7-18); CALCIUM 8.4 MG/DL (8.5-10.1); CARBON DIOXIDE 21 MMOL/L (21-32); CHLORIDE 104 MMOL/L (98-107); CREATININE 1.2 MG/DL (0.55-1.30); POTASSIUM 2.9 MMOL/L (3.5-5.1); SODIUM 132 MMOL/L (136-145)
[2019-04-24 11:02] LABS: BILIRUBIN,DIRECT 1.7 MG/DL (0.0-0.3)
[2019-04-24 11:15] VITALS: BP 112/66
--- NOTE | 2019-04-24 12:47 | Internal Med Progress Note ---
Subjective Date of Service: Apr 24, 2019 Physician Name BenjaminJose Attending Physician Goldy Amador MD Current Medications Medications (Trade) Dose Ordered Sig/Almaz Route PRN Reason Start Time Stop Time Status Last Admin Dose Admin Acetaminophen (Tylenol) 650 mg Q4H PRN ORAL fever 04/20/19 02:00 05/18/19 09:59 Dextrose (Dextrose 50%) 25 ml Q30M PRN IV Hypoglycemia 04/19/19 23:00 05/18/19 09:53 Dextrose (Dextrose 50%) 50 ml Q30M PRN IV hypoglycemia 04/19/19 23:00 05/18/19 09:59 Dextrose/Sodium Chloride 1,000 ml @ 75 mls/hr [id number] IV 04/19/19 23:00 05/18/19 09:52 04/24/19 09:19 Diphenhydramine HCl (Benadryl) 25 mg Q6H PRN ORAL Itching/Pruritis 04/19/19 23:00 05/18/19 04:59 Lactulose (Cephulac) 30 gm THREE TIMES A DAY ORAL 04/20/19 09:00 05/19/19 12:59 04/24/19 09:18 Linezolid 300 ml @ 300 mls/hr Q12HR IVPB 04/23/19 16:00 04/30/19 15:59 04/24/19 09:18 Morphine Sulfate (Morphine Sulfate) 2 mg Q4H PRN IVP severe Pain (Pain Scale 7-10) 04/20/19 01:00 04/25/19 04:59 04/24/19 09:17 Nitroglycerin (Ntg) 0.4 mg Q5M X 3 DOSES PRN SL Prn Chest Pain 04/19/19 23:00 05/18/19 09:59 Ondansetron HCl (Zofran) 4 mg Q6H PRN IVP Nausea & Vomiting 04/19/19 23:00 05/18/19 04:59 04/22/19 12:20 Polyethylene Glycol (Miralax) 17 gm HSPRN PRN ORAL Constipation 04/20/19 10:00 05/18/19 09:59 Rifaximin (Xifaxan) 550 mg EVERY 12 HOURS ORAL 04/20/19 09:00 04/25/19 20:59 04/24/19 09:18 Temazepam (Restoril) 15 mg HSPRN PRN ORAL Insomnia 04/20/19 10:00 04/25/19 09:59 Allergies: Coded Allergies: No Known Allergies (Unverified , 01/31/19) ROS Limited/Unobtainable: No Constitutional: Reports: no symptoms HEENT: Reports: no symptoms Cardiovascular: Reports: no symptoms Respiratory: Reports: no symptoms Gastrointestinal/Abdominal: Reports: no symptoms Genitourinary: Reports: no symptoms Neurologic/Psychiatric: Reports: no symptoms Subjective 58 YO F admitted with altered mental status and ascites. S/P paracentesis . Cover for Int [facility]-Dr Amador Objective Last Vital Signs Date Time Temp Pulse Resp B/P (MAP) Pulse Ox O2 Delivery O2 Flow Rate FiO2 04/24/19 11:15 97.8 86 16 112/66 (81) 95 04/24/19 09:00 Room Air 04/22/19 09:30 3 Laboratory Tests Test 04/24/19 09:10 White Blood Count 5.2 K/UL (4.8-10.8) Red Blood Count 4.26 M/UL (4.20-5.40) Hemoglobin 10.7 G/DL (12.0-16.0) L Hematocrit 35.9 % (37.0-47.0) L Mean Corpuscular Volume 84 FL (80-99) Mean Corpuscular Hemoglobin 25.1 PG (27.0-31.0) L Mean Corpuscular Hemoglobin Concent 29.8 G/DL (32.0-36.0) L Red Cell Distribution Width 18.7 % (11.6-14.8) H Platelet Count 63 K/UL (150-450) L Mean Platelet Volume 7.5 FL (6.5-10.1) Neutrophils (%) (Auto) % (45.0-75.0) Lymphocytes (%) (Auto) % (20.0-45.0) Monocytes (%) (Auto) % (1.0-10.0) Eosinophils (%) (Auto) % (0.0-3.0) Basophils (%) (Auto) % (0.0-2.0) Differential Total Cells Counted 100 Neutrophils % (Manual) 63 % (45-75) Lymphocytes % (Manual) 29 % (20-45) Monocytes % (Manual) 5 % (1-10) Eosinophils % (Manual) 2 % (0-3) Basophils % (Manual) 1 % (0-2) Band Neutrophils 0 % (0-8) Platelet Estimate Decreased L Platelet Morphology Normal Hypochromasia 1+ Anisocytosis 1+ Sodium Level 132 MMOL/L (136-145) L Potassium Level 2.9 MMOL/L (3.5-5.1) L Chloride Level 104 MMOL/L (98-107) Carbon Dioxide Level 21 MMOL/L (21-32) Anion Gap 7 mmol/L (5-15) Blood Urea Nitrogen 17 mg/dL (7-18) Creatinine 1.2 MG/DL (0.55-1.30) Estimat Glomerular Filtration Rate 46.3 mL/min (>60) Glucose Level 127 MG/DL (74-106) H Calcium Level 8.4 MG/DL (8.5-10.1) L Total Bilirubin 3.2 MG/DL (0.2-1.0) H Direct Bilirubin 1.7 MG/DL (0.0-0.3) H Aspartate Amino Transf (AST/SGOT) 51 U/L (15-37) H Alanine Aminotransferase (ALT/SGPT) 26 U/L (12-78) Alkaline Phosphatase 344 U/L (46-116) H Ammonia 44 umol/L (11-32) H Total Protein 6.7 G/DL (6.4-8.2) Albumin 1.6 G/DL (3.4-5.0) L Globulin 5.1 g/dL Albumin/Globulin Ratio 0.3 (1.0-2.7) L Intake and Output 04/23/19 04/24/19 19:00 07:00 Intake Total 780 ml 525 ml Balance 780 ml 525 ml Intake Oral 480 ml IV Total 300 ml 525 ml # Voids 3 4 # Bowel Movements 5 Objective PHYSICAL EXAMINATION: GENERAL: The patient is a well-developed and well-nourished obese female, in no apparent distress. HEENT: Eyes, pupils are equal and responsive to light and accommodation. Extraocular movements are intact. NECK: Supple without lymphadenopathy. CHEST: Lungs are clear to auscultation bilaterally without wheezes or rales. CARDIOVASCULAR: Regular rhythm and rate. S1, S2 are normal without murmurs, rubs, or gallops. ABDOMEN: Soft, distended with fluid wave present. No evidence of hepatosplenomegaly. Currently, no rebound or guarding noted. EXTREMITIES: Negative for clubbing, cyanosis, or edema. RECTAL/GENITAL: Not performed. NEUROLOGIC: Cranial nerves II through XII grossly intact without focal deficits. Assessment/Plan Assessment/Plan ASSESSMENT: This is a 58-year-old female. 1. Altered mental status. 2. Ascites. 3. Edema. 4. Acute renal failure. 5. History of gastrointestinal hemorrhage. 6. Liver cirrhosis. 7. Hepatic encephalopathy. 8. Diabetes type 2. 9. Hypertension. 10. Alcohol dependence. 11. UTI=enterococcus 12. hypokalemia TREATMENT: 1. Altered mental status. This may be secondary to elevated ammonia level as above. The patient has been started empirically on lactulose. A Gastroenterology consultation has been obtained with Dr. Jon Torres. We will follow recommendations of Gastroenterology. 2. Ascites/edema. This is probably secondary to liver failure as above. S/P paracentesis 04/18/19. 3. Renal failure. A Nephrology consultation has been obtained with Dr. Byers. This is probably hepatorenal failure. 4. History of gastrointestinal hemorrhage. As above, a Gastroenterology consultation has been obtained with Dr. Jon Torres. The patient is status post endoscopy with hemostasis of [place] lesion. 5. Liver cirrhosis. As above, a gastroenterology consultation has been obtained with Dr. Jon Torres. 6. Hepatic encephalopathy. Continue Xifaxan and lactulose as above. 7. Diabetes type 2. A NovoLog sliding scale has been instituted. 8. Hypertension. Continue amlodipine as above. 9. Alcohol dependence. 10. S/Pendoscopy 04/22/19=gastritis 11. Start linezolid; ID consult=Dr Hartley 12. replace Jose Paris MD Apr 24, 2019 12:47
[2019-04-24 16:00] VITALS: BP 127/80
--- NOTE | 2019-04-24 16:05 | General Progress Note ---
Assessment/Plan Status: progressing Assessment/Plan: Assessment - Cirrhosis - hepatic encephalopathy - possible liver mass - possible portal vein thrombosis - gallstones - mild azotemia - improving Recommendations xifaxan Lactulose follow labs Abx PPI CT abd with IV contrast next week Subjective Allergies: Coded Allergies: No Known Allergies (Unverified , 01/31/19) Subjective above noted awake, confused labs noted Objective Last 24 Hour Vital Signs Date Time Temp Pulse Resp B/P (MAP) Pulse Ox O2 Delivery O2 Flow Rate FiO2 04/24/19 14:04 97.8 04/24/19 11:15 97.8 86 16 112/66 (81) 95 04/24/19 09:00 Room Air 04/24/19 08:00 97.4 89 20 118/81 (93) 95 04/24/19 04:00 98.7 79 20 134/72 (92) 94 04/24/19 00:00 97.8 92 20 124/87 (99) 95 04/23/19 21:00 Room Air 04/23/19 20:00 97.2 91 16 136/87 (103) 100 Intake and Output 04/23/19 04/24/19 19:00 07:00 Intake Total 780 ml 525 ml Balance 780 ml 525 ml Intake Oral 480 ml IV Total 300 ml 525 ml # Voids 3 4 # Bowel Movements 5 Laboratory Tests 04/24/19 09:10: White Blood Count 5.2, Red Blood Count 4.26, Hemoglobin 10.7L, Hematocrit 35.9L , Mean Corpuscular Volume 84, Mean Corpuscular Hemoglobin 25.1L, Mean Corpuscular Hemoglobin Concent 29.8L, Red Cell Distribution Width 18.7H, Platelet Count 63L, Mean Platelet Volume 7.5, Neutrophils (%) (Auto) , Lymphocytes (%) (Auto) , Monocytes (%) (Auto) , Eosinophils (%) (Auto) , Basophils (%) (Auto) , Differential Total Cells Counted 100, Neutrophils % ( Manual) 63, Lymphocytes % (Manual) 29, Monocytes % (Manual) 5, Eosinophils % ( Manual) 2, Basophils % (Manual) 1, Band Neutrophils 0, Platelet Estimate DecreasedL, Platelet Morphology Normal, Hypochromasia 1+, Anisocytosis 1+, Sodium Level 132L, Potassium Level 2.9L, Chloride Level 104, Carbon Dioxide Level 21, Anion Gap 7, Blood Urea Nitrogen 17, Creatinine 1.2, Estimat Glomerular Filtration Rate 46.3, Glucose Level 127H, Calcium Level 8.4L, Total Bilirubin 3.2H, Direct Bilirubin 1.7H, Aspartate Amino Transf (AST/SGOT) 51H, Alanine Aminotransferase (ALT/SGPT) 26, Alkaline Phosphatase 344H, Ammonia 44H, Total Protein 6.7, Albumin 1.6L, Globulin 5.1, Albumin/Globulin Ratio 0.3L Height (Feet): 5 Height (Inches): 4.00 Weight (Pounds): 193 Objective WD woman NCAT supple CTA RR abd soft, distended trace edema Mikhail Elaine MD Apr 24, 2019 16:05
[2019-04-24] MEDS ORDERED: Isovue-300 100ml vial INJ PRN (16:15)
--- NOTE | 2019-04-24 19:25 | NUR ---
NURSE NOTES: Received pt resting in bed. Pt awake, on room air, AAO x 4. Speaks Yemeni. IV on L thumb intact and patent, running D5 NS w/ KCL 75cc/hr. Commode is at bedside. NPO midnight on 04/24. Bed in lowest position, locked, alarm on, side rails up x 2, call light within reach. Will continue to monitor.
--- NOTE | 2019-04-24 19:27 | NUR ---
HAND-OFF: Report given to CHAVA Blair.
--- NOTE | 2019-04-24 19:33 | Pulmonology Progress Note ---
Assessment/Plan Problems: (1) Acute metabolic encephalopathy (2) Hepatic encephalopathy (3) Ascites (4) Anasarca (5) Liver cirrhosis (6) ETOH abuse Assessment/Plan awake, no nee complains renal w/u rule out SBP symptomatic treatment social service consult note appreciated, we are looking for the pts son to discuss plan of care. Subjective ROS Limited/Unobtainable: No Allergies: Coded Allergies: No Known Allergies (Unverified , 01/31/19) Objective Last 24 Hour Vital Signs Date Time Temp Pulse Resp B/P (MAP) Pulse Ox O2 Delivery O2 Flow Rate FiO2 04/24/19 16:00 97.5 83 18 127/80 (96) 96 04/24/19 14:04 97.8 04/24/19 11:15 97.8 86 16 112/66 (81) 95 04/24/19 09:00 Room Air 04/24/19 08:00 97.4 89 20 118/81 (93) 95 04/24/19 04:00 98.7 79 20 134/72 (92) 94 04/24/19 00:00 97.8 92 20 124/87 (99) 95 04/23/19 21:00 Room Air 04/23/19 20:00 97.2 91 16 136/87 (103) 100 Intake and Output 04/23/19 04/24/19 18:59 06:59 Intake Total 1455 ml 525 ml Balance 1455 ml 525 ml Intake Oral 480 ml IV Total 975 ml 525 ml # Voids 3 4 # Bowel Movements 5 Objective General Appearance: WD/WN HEENT: normocephalic, atraumatic Respiratory/Chest: chest wall non-tender, lungs clear Cardiovascular: normal peripheral pulses, normal rate Abdomen: normal bowel sounds, soft, non tender Genitourinary: normal external genitalia Extremities: no clubbing Skin: no rash, no ulcers Neurologic/Psychiatric: [place] II-XII grossly normal Musculoskeletal: normal muscle bulk Laboratory Tests 04/24/19 09:10: White Blood Count 5.2, Red Blood Count 4.26, Hemoglobin 10.7L, Hematocrit 35.9L , Mean Corpuscular Volume 84, Mean Corpuscular Hemoglobin 25.1L, Mean Corpuscular Hemoglobin Concent 29.8L, Red Cell Distribution Width 18.7H, Platelet Count 63L, Mean Platelet Volume 7.5, Neutrophils (%) (Auto) , Lymphocytes (%) (Auto) , Monocytes (%) (Auto) , Eosinophils (%) (Auto) , Basophils (%) (Auto) , Differential Total Cells Counted 100, Neutrophils % ( Manual) 63, Lymphocytes % (Manual) 29, Monocytes % (Manual) 5, Eosinophils % ( Manual) 2, Basophils % (Manual) 1, Band Neutrophils 0, Platelet Estimate DecreasedL, Platelet Morphology Normal, Hypochromasia 1+, Anisocytosis 1+, Sodium Level 132L, Potassium Level 2.9L, Chloride Level 104, Carbon Dioxide Level 21, Anion Gap 7, Blood Urea Nitrogen 17, Creatinine 1.2, Estimat Glomerular Filtration Rate 46.3, Glucose Level 127H, Calcium Level 8.4L, Total Bilirubin 3.2H, Direct Bilirubin 1.7H, Aspartate Amino Transf (AST/SGOT) 51H, Alanine Aminotransferase (ALT/SGPT) 26, Alkaline Phosphatase 344H, Ammonia 44H, Total Protein 6.7, Albumin 1.6L, Globulin 5.1, Albumin/Globulin Ratio 0.3L Current Medications Medications (Trade) Dose Ordered Sig/Almaz Route PRN Reason Start Time Stop Time Status Last Admin Dose Admin Acetaminophen (Tylenol) 650 mg Q4H PRN ORAL fever 04/20/19 02:00 05/18/19 09:59 Barium Sulfate (Readi-Cat 2) 450 ml NOW PRN ORAL Radiology Procedure 04/24/19 16:15 04/26/19 16:06 Dextrose (Dextrose 50%) 25 ml Q30M PRN IV Hypoglycemia 04/19/19 23:00 05/18/19 09:53 Dextrose (Dextrose 50%) 50 ml Q30M PRN IV hypoglycemia 04/19/19 23:00 05/18/19 09:59 Dextrose/ Electrolytes 1,000 ml @ 75 mls/hr [id number] IV 04/24/19 14:00 05/24/19 13:59 04/24/19 14:45 Diphenhydramine HCl (Benadryl) 25 mg Q6H PRN ORAL Itching/Pruritis 04/19/19 23:00 05/18/19 04:59 04/24/19 13:30 Iopamidol (Isovue-300 100ml) 100 ml NOW PRN INJ Radiology Procedure 04/24/19 16:15 04/26/19 16:06 Lactulose (Cephulac) 30 gm THREE TIMES A DAY ORAL 04/20/19 09:00 05/19/19 12:59 04/24/19 18:18 Linezolid 300 ml @ 300 mls/hr Q12HR IVPB 04/23/19 16:00 04/30/19 15:59 04/24/19 09:18 Morphine Sulfate (Morphine Sulfate) 2 mg Q4H PRN IVP severe Pain (Pain Scale 7-10) 04/20/19 01:00 04/25/19 04:59 04/24/19 13:34 Nitroglycerin (Ntg) 0.4 mg Q5M X 3 DOSES PRN SL Prn Chest Pain 04/19/19 23:00 05/18/19 09:59 Ondansetron HCl (Zofran) 4 mg Q6H PRN IVP Nausea & Vomiting 04/19/19 23:00 05/18/19 04:59 04/22/19 12:20 Polyethylene Glycol (Miralax) 17 gm HSPRN PRN ORAL Constipation 04/20/19 10:00 05/18/19 09:59 Potassium Chloride (K-Dur) 40 meq TWICE A DAY ORAL 04/24/19 12:45 04/26/19 12:44 04/24/19 18:18 Rifaximin (Xifaxan) 550 mg EVERY 12 HOURS ORAL 04/20/19 09:00 04/25/19 20:59 04/24/19 09:18 Temazepam (Restoril) 15 mg HSPRN PRN ORAL Insomnia 04/20/19 10:00 04/25/19 09:59 Shireen Khan MD Apr 24, 2019 19:32
[2019-04-24 20:00] VITALS: BP 118/77
[2019-04-25] VITALS: BP 118/72
[2019-04-25 04:00] VITALS: BP 139/74
[2019-04-25 07:12] LABS: HEMATOCRIT 34.4 % (37.0-47.0); HEMOGLOBIN 10.3 G/DL (12.0-16.0); MEAN CORPUSCULAR VOLUME 85 FL (80-99); PLATELET COUNT 65 K/UL (150-450); RED BLOOD COUNT 4.02 M/UL (4.20-5.40); RED CELL DISTRIBUTION WIDTH 19.3 % (11.6-14.8)
--- NOTE | 2019-04-25 07:17 | NUR ---
HAND-OFF: Report given to CHAVA Kessler.
--- NOTE | 2019-04-25 07:25 | NUR ---
NURSE NOTES: received pt in bed, asleep, no sign of pain or discomfort noted. Receives IVF D5NS + 20mEq KCl @ 75cc/hr R wrist access. Bedside commode by the bedside. Bed locked at the lowest position possible, call light within easy reach, siderails x2. Will continue to monitor pt and follow up with the plan of care.
[2019-04-25 07:26] LABS: ANION GAP 10 mmol/L (5-15); BLOOD UREA NITROGEN 15 mg/dL (7-18); CALCIUM 8.4 MG/DL (8.5-10.1); CARBON DIOXIDE 18 MMOL/L (21-32); CHLORIDE 107 MMOL/L (98-107); CREATININE 1.4 MG/DL (0.55-1.30); POTASSIUM 3.9 MMOL/L (3.5-5.1); SODIUM 135 MMOL/L (136-145)
[2019-04-25 08:00] VITALS: BP 137/83
[2019-04-25] MEDS: Lactulose 20gm/30ml UDC ORAL SCH ×3 (11:27→17:31)
--- NOTE | 2019-04-25 11:58 | Pulmonology Progress Note ---
Assessment/Plan Problems: (1) Acute metabolic encephalopathy (2) Hepatic encephalopathy (3) Ascites (4) Anasarca (5) Liver cirrhosis (6) ETOH abuse Assessment/Plan doing better awake, no new complains on Linezolid for ESBL UTI renal w/u symptomatic treatment social service consult note appreciated, we are looking for the pts son to discuss plan of care. Subjective ROS Limited/Unobtainable: No Constitutional: Reports: no symptoms HEENT: Repors: no symptoms Respiratory: Reports: no symptoms Allergies: Coded Allergies: No Known Allergies (Unverified , 01/31/19) Objective Last 24 Hour Vital Signs Date Time Temp Pulse Resp B/P (MAP) Pulse Ox O2 Delivery O2 Flow Rate FiO2 04/25/19 09:00 Room Air 04/25/19 08:00 97.8 81 18 137/83 (101) 98 04/25/19 04:00 97.8 85 20 139/74 (95) 100 04/25/19 00:00 98.0 84 20 118/72 (87) 94 04/24/19 21:00 Room Air 04/24/19 20:00 98.2 80 20 118/77 (91) 94 04/24/19 16:00 97.5 83 18 127/80 (96) 96 04/24/19 14:04 97.8 Intake and Output 04/24/19 04/25/19 19:00 07:00 Intake Total 1185 ml 1040 ml Balance 1185 ml 1040 ml Intake Oral 360 ml IV Total 825 ml 1040 ml # Voids 3 1 # Bowel Movements 5 2 Objective General Appearance: WD/WN HEENT: normocephalic, atraumatic Respiratory/Chest: chest wall non-tender, lungs clear Cardiovascular: normal peripheral pulses, normal rate Abdomen: normal bowel sounds, soft, non tender Genitourinary: normal external genitalia Extremities: no clubbing Skin: no rash, no ulcers 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 Musculoskeletal: normal muscle bulk Laboratory Tests 04/25/19 06:15: White Blood Count 5.0, Red Blood Count 4.02L, Hemoglobin 10.3L, Hematocrit 34.4L , Mean Corpuscular Volume 85, Mean Corpuscular Hemoglobin 25.6L, Mean Corpuscular Hemoglobin Concent 30.0L, Red Cell Distribution Width 19.3H, Platelet Count 65L, Mean Platelet Volume 8.2, Neutrophils (%) (Auto) , Lymphocytes (%) (Auto) , Monocytes (%) (Auto) , Eosinophils (%) (Auto) , Basophils (%) (Auto) , Differential Total Cells Counted 100, Neutrophils % ( Manual) 71, Lymphocytes % (Manual) 19L, Monocytes % (Manual) 9, Eosinophils % ( Manual) 1, Basophils % (Manual) 0, Band Neutrophils 0, Platelet Estimate DecreasedL, Platelet Morphology Normal, Hypochromasia 1+, Anisocytosis 1+, Sodium Level 135L, Potassium Level 3.9, Chloride Level 107, Carbon Dioxide Level 18L, Anion Gap 10, Blood Urea Nitrogen 15, Creatinine 1.4H, Estimat Glomerular Filtration Rate 38.7, Glucose Level 153H, Calcium Level 8.4L Current Medications Medications (Trade) Dose Ordered Sig/Almaz Route PRN Reason Start Time Stop Time Status Last Admin Dose Admin Acetaminophen (Tylenol) 650 mg Q4H PRN ORAL fever 04/20/19 02:00 05/18/19 09:59 Barium Sulfate (Readi-Cat 2) 450 ml NOW PRN ORAL Radiology Procedure 04/24/19 16:15 04/26/19 16:06 Dextrose (Dextrose 50%) 25 ml Q30M PRN IV Hypoglycemia 04/19/19 23:00 05/18/19 09:53 Dextrose (Dextrose 50%) 50 ml Q30M PRN IV hypoglycemia 04/19/19 23:00 05/18/19 09:59 Dextrose/ Electrolytes 1,000 ml @ 75 mls/hr [id number] IV 04/24/19 14:00 05/24/19 13:59 04/25/19 03:29 Diphenhydramine HCl (Benadryl) 25 mg Q6H PRN ORAL Itching/Pruritis 04/19/19 23:00 05/18/19 04:59 04/24/19 13:30 Iopamidol (Isovue-300 100ml) 100 ml NOW PRN INJ Radiology Procedure 04/24/19 16:15 04/26/19 16:06 Lactulose (Cephulac) 30 gm THREE TIMES A DAY ORAL 04/20/19 09:00 05/19/19 12:59 04/25/19 11:27 Linezolid 300 ml @ 300 mls/hr Q12HR IVPB 04/23/19 16:00 04/30/19 15:59 04/25/19 08:08 Nitroglycerin (Ntg) 0.4 mg Q5M X 3 DOSES PRN SL Prn Chest Pain 04/19/19 23:00 05/18/19 09:59 Ondansetron HCl (Zofran) 4 mg Q6H PRN IVP Nausea & Vomiting 04/19/19 23:00 05/18/19 04:59 04/22/19 12:20 Polyethylene Glycol (Miralax) 17 gm HSPRN PRN ORAL Constipation 04/20/19 10:00 05/18/19 09:59 Potassium Chloride (K-Dur) 40 meq TWICE A DAY ORAL 04/24/19 12:45 04/26/19 12:44 04/25/19 08:06 Rifaximin (Xifaxan) 550 mg EVERY 12 HOURS ORAL 04/20/19 09:00 05/02/19 23:00 04/25/19 08:06 Shireen Khan MD Apr 25, 2019 11:58
[2019-04-25 12:00] VITALS: BP 128/75
--- NOTE | 2019-04-25 13:14 | GI Progress Note ---
Assessment/Plan Problems: (1) Acute metabolic encephalopathy ICD Codes: G93.41 - Metabolic encephalopathy SNOMED: 18954885, 734777305 (2) Liver cirrhosis ICD Codes: K74.60 - Unspecified cirrhosis of liver SNOMED: 08574096 (3) Abdominal pain ICD Codes: R10.9 - Unspecified abdominal pain SNOMED: 79015784 (4) Altered mental status ICD Codes: R41.82 - Altered mental status, unspecified SNOMED: 593692464 Qualifiers: Qualified Codes: R41.82 - Altered mental status, unspecified (5) Ascites ICD Codes: R18.8 - Other ascites SNOMED: 588982053 Qualifiers: Qualified Codes: K70.31 - Alcoholic cirrhosis of liver with ascites (6) Anasarca ICD Codes: R60.1 - Generalized edema SNOMED: 513098985, 924939252 (7) Hepatic encephalopathy ICD Codes: K72.90 - Hepatic failure, unspecified without coma SNOMED: 97228618 Status: stable Status Narrative Discussed with Dr. Torres. Assessment/Plan s/p paracentesis in the ED >> yielding 7.9L s/p EGD 02/04/19 with active bleed from Dieulafoy lesion Assessment - Cirrhosis - hepatic encephalopathy - possible liver mass - possible portal vein thrombosis - gallstones - mild azotemia - improving Recommendations xifaxan Lactulose follow labs Abx PPI CT abd with IV contrast next week The patient was seen and examined at bedside and all new and available data was reviewed in the patients chart. I agree with the above findings, impression and plan. (Patient seen earlier today. Signature stamp does not reflect patient encounter time.). - Jon Torres MD Subjective Subjective ROS limited Objective Last 24 Hour Vital Signs Date Time Temp Pulse Resp B/P (MAP) Pulse Ox O2 Delivery O2 Flow Rate FiO2 04/25/19 09:00 Room Air 04/25/19 08:00 97.8 81 18 137/83 (101) 98 04/25/19 04:00 97.8 85 20 139/74 (95) 100 04/25/19 00:00 98.0 84 20 118/72 (87) 94 04/24/19 21:00 Room Air 04/24/19 20:00 98.2 80 20 118/77 (91) 94 04/24/19 16:00 97.5 83 18 127/80 (96) 96 04/24/19 14:04 97.8 Intake and Output 04/24/19 04/25/19 19:00 07:00 Intake Total 1185 ml 1040 ml Balance 1185 ml 1040 ml Intake Oral 360 ml IV Total 825 ml 1040 ml # Voids 3 1 # Bowel Movements 5 2 Laboratory Tests Test 04/25/19 06:15 White Blood Count 5.0 K/UL (4.8-10.8) Red Blood Count 4.02 M/UL (4.20-5.40) L Hemoglobin 10.3 G/DL (12.0-16.0) L Hematocrit 34.4 % (37.0-47.0) L Mean Corpuscular Volume 85 FL (80-99) Mean Corpuscular Hemoglobin 25.6 PG (27.0-31.0) L Mean Corpuscular Hemoglobin Concent 30.0 G/DL (32.0-36.0) L Red Cell Distribution Width 19.3 % (11.6-14.8) H Platelet Count 65 K/UL (150-450) L Mean Platelet Volume 8.2 FL (6.5-10.1) Neutrophils (%) (Auto) % (45.0-75.0) Lymphocytes (%) (Auto) % (20.0-45.0) Monocytes (%) (Auto) % (1.0-10.0) Eosinophils (%) (Auto) % (0.0-3.0) Basophils (%) (Auto) % (0.0-2.0) Differential Total Cells Counted 100 Neutrophils % (Manual) 71 % (45-75) Lymphocytes % (Manual) 19 % (20-45) L Monocytes % (Manual) 9 % (1-10) Eosinophils % (Manual) 1 % (0-3) Basophils % (Manual) 0 % (0-2) Band Neutrophils 0 % (0-8) Platelet Estimate Decreased L Platelet Morphology Normal Hypochromasia 1+ Anisocytosis 1+ Sodium Level 135 MMOL/L (136-145) L Potassium Level 3.9 MMOL/L (3.5-5.1) Chloride Level 107 MMOL/L (98-107) Carbon Dioxide Level 18 MMOL/L (21-32) L Anion Gap 10 mmol/L (5-15) Blood Urea Nitrogen 15 mg/dL (7-18) Creatinine 1.4 MG/DL (0.55-1.30) H Estimat Glomerular Filtration Rate 38.7 mL/min (>60) Glucose Level 153 MG/DL (74-106) H Calcium Level 8.4 MG/DL (8.5-10.1) L Height (Feet): 5 Height (Inches): 4.00 Weight (Pounds): 193 General Appearance: no apparent distress Cardiovascular: normal rate Respiratory/Chest: normal breath sounds, no respiratory distress Abdominal Exam: normal bowel sounds, non tender, soft Extremities: non-tender Indu Lane NP Apr 25, 2019 13:14
--- NOTE | 2019-04-25 14:25 | NUR ---
DISCHARGE PLANNING PAT[facility]
[2019-04-25] MEDS ORDERED: D5 1/2NS 1000ml IV ONE (15:02)
--- NOTE | 2019-04-25 15:34 | NUR ---
RD ASSESSMENT & RECOMMENDATIONS SEE CARE ACTIVITY FOR COMPLETE ASSESSMENT DAILY ESTIMATED NEEDS: Needs based on cirrhosis, ascites/ 57kg 25-30 kcals/kg 2470-9515 total kcals 1-1.5 g protein/kg 57-86 g total protein 20-25 mL/kg 6366-4384 total fluid mLs NUTRITION DIAGNOSIS: Altered nutrition related lab values R/T cirrhosis as evidenced by elev T bili (3.2), elev AST,trend up, elev NH3 (44). CURRENT DIET:CCHO LOW PO DIET RECOMMENDATIONS: CCHO MED+ LOW NA ADDITIONAL RECOMMENDATIONS: * Standing wt for accurate CBW * Monitor lytes, replete as needed * Rec NISS- h/o DM .
--- NOTE | 2019-04-25 15:41 | NUR ---
DISCHARGE PLANNING PATIENT HAS BEEN REFERRED TO [facility] PT SON NEREYDA @ [phone] DID NOT HYDRAULIC SPECIALIST, WENT STRAIGHT TO . LEFT MESSAGE INFORMING THAT HIS MOTHER WILL BE TRANSFERRED TO [facility].
[2019-04-25 16:00] VITALS: BP 145/96
--- NOTE | 2019-04-25 17:17 | NUR ---
NURSE NOTES: Patient is being prepared for discharge, given report to nurse Verdugo from [facility]. No IV access on pt. Stable VS, no complaint of pain or discomfort. Spoken to son Matteo at regarding the discharge, given him the SNF contact number.
--- NOTE | 2019-04-25 18:37 | Internal Med Progress Note ---
Subjective Date of Service: Apr 25, 2019 Physician Name Benjamin,Jose Attending Physician Goldy Amador MD Current Medications Medications (Trade) Dose Ordered Sig/Almaz Route PRN Reason Start Time Stop Time Status Last Admin Dose Admin Acetaminophen (Tylenol) 650 mg Q4H PRN ORAL fever 04/20/19 02:00 05/18/19 09:59 Barium Sulfate (Readi-Cat 2) 450 ml NOW PRN ORAL Radiology Procedure 04/24/19 16:15 04/26/19 16:06 Dextrose (Dextrose 50%) 25 ml Q30M PRN IV Hypoglycemia 04/19/19 23:00 05/18/19 09:53 Dextrose (Dextrose 50%) 50 ml Q30M PRN IV hypoglycemia 04/19/19 23:00 05/18/19 09:59 Dextrose/ Electrolytes 1,000 ml @ 75 mls/hr [id number] IV 04/24/19 14:00 05/24/19 13:59 04/25/19 03:29 Diphenhydramine HCl (Benadryl) 25 mg Q6H PRN ORAL Itching/Pruritis 04/19/19 23:00 05/18/19 04:59 04/24/19 13:30 Iopamidol (Isovue-300 100ml) 100 ml NOW PRN INJ Radiology Procedure 04/24/19 16:15 04/26/19 16:06 Lactulose (Cephulac) 30 gm THREE TIMES A DAY ORAL 04/20/19 09:00 05/19/19 12:59 04/25/19 17:31 Linezolid 300 ml @ 300 mls/hr Q12HR IVPB 04/23/19 16:00 04/30/19 15:59 04/25/19 08:08 Nitroglycerin (Ntg) 0.4 mg Q5M X 3 DOSES PRN SL Prn Chest Pain 04/19/19 23:00 05/18/19 09:59 Ondansetron HCl (Zofran) 4 mg Q6H PRN IVP Nausea & Vomiting 04/19/19 23:00 05/18/19 04:59 04/22/19 12:20 Polyethylene Glycol (Miralax) 17 gm HSPRN PRN ORAL Constipation 04/20/19 10:00 05/18/19 09:59 Potassium Chloride (K-Dur) 40 meq TWICE A DAY ORAL 04/24/19 12:45 04/26/19 12:44 04/25/19 17:32 Rifaximin (Xifaxan) 550 mg EVERY 12 HOURS ORAL 04/20/19 09:00 05/02/19 23:00 04/25/19 08:06 Allergies: Coded Allergies: No Known Allergies (Unverified , 01/31/19) ROS Limited/Unobtainable: No Constitutional: Reports: no symptoms HEENT: Reports: no symptoms Cardiovascular: Reports: no symptoms Respiratory: Reports: no symptoms Gastrointestinal/Abdominal: Reports: no symptoms Genitourinary: Reports: no symptoms Neurologic/Psychiatric: Reports: no symptoms Subjective 58 YO F admitted with altered mental status and ascites. S/P paracentesis . Cover for Int Eloy-Dr Amador Objective Last Vital Signs Date Time Temp Pulse Resp B/P (MAP) Pulse Ox O2 Delivery O2 Flow Rate FiO2 04/25/19 16:00 97.9 89 18 145/96 (112) 95 04/25/19 09:00 Room Air 04/22/19 09:30 3 Laboratory Tests Test 04/25/19 06:15 White Blood Count 5.0 K/UL (4.8-10.8) Red Blood Count 4.02 M/UL (4.20-5.40) L Hemoglobin 10.3 G/DL (12.0-16.0) L Hematocrit 34.4 % (37.0-47.0) L Mean Corpuscular Volume 85 FL (80-99) Mean Corpuscular Hemoglobin 25.6 PG (27.0-31.0) L Mean Corpuscular Hemoglobin Concent 30.0 G/DL (32.0-36.0) L Red Cell Distribution Width 19.3 % (11.6-14.8) H Platelet Count 65 K/UL (150-450) L Mean Platelet Volume 8.2 FL (6.5-10.1) Neutrophils (%) (Auto) % (45.0-75.0) Lymphocytes (%) (Auto) % (20.0-45.0) Monocytes (%) (Auto) % (1.0-10.0) Eosinophils (%) (Auto) % (0.0-3.0) Basophils (%) (Auto) % (0.0-2.0) Differential Total Cells Counted 100 Neutrophils % (Manual) 71 % (45-75) Lymphocytes % (Manual) 19 % (20-45) L Monocytes % (Manual) 9 % (1-10) Eosinophils % (Manual) 1 % (0-3) Basophils % (Manual) 0 % (0-2) Band Neutrophils 0 % (0-8) Platelet Estimate Decreased L Platelet Morphology Normal Hypochromasia 1+ Anisocytosis 1+ Sodium Level 135 MMOL/L (136-145) L Potassium Level 3.9 MMOL/L (3.5-5.1) Chloride Level 107 MMOL/L (98-107) Carbon Dioxide Level 18 MMOL/L (21-32) L Anion Gap 10 mmol/L (5-15) Blood Urea Nitrogen 15 mg/dL (7-18) Creatinine 1.4 MG/DL (0.55-1.30) H Estimat Glomerular Filtration Rate 38.7 mL/min (>60) Glucose Level 153 MG/DL (74-106) H Calcium Level 8.4 MG/DL (8.5-10.1) L Intake and Output 04/24/19 04/25/19 19:00 07:00 Intake Total 1185 ml 1040 ml Balance 1185 ml 1040 ml Intake Oral 360 ml IV Total 825 ml 1040 ml # Voids 3 1 # Bowel Movements 5 2 Objective PHYSICAL EXAMINATION: GENERAL: The patient is a well-developed and well-nourished obese female, in no apparent distress. HEENT: Eyes, pupils are equal and responsive to light and accommodation. Extraocular movements are intact. NECK: Supple without lymphadenopathy. CHEST: Lungs are clear to auscultation bilaterally without wheezes or rales. CARDIOVASCULAR: Regular rhythm and rate. S1, S2 are normal without murmurs, rubs, or gallops. ABDOMEN: Soft, distended with fluid wave present. No evidence of hepatosplenomegaly. Currently, no rebound or guarding noted. EXTREMITIES: Negative for clubbing, cyanosis, or edema. RECTAL/GENITAL: Not performed. NEUROLOGIC: Cranial nerves II through XII grossly intact without focal deficits. Assessment/Plan Assessment/Plan ASSESSMENT: This is a 58-year-old female. 1. Altered mental status. 2. Ascites. 3. Edema. 4. Acute renal failure. 5. History of gastrointestinal hemorrhage. 6. Liver cirrhosis. 7. Hepatic encephalopathy. 8. Diabetes type 2. 9. Hypertension. 10. Alcohol dependence. 11. UTI=enterococcus 12. hypokalemia TREATMENT: 1. Altered mental status. This may be secondary to elevated ammonia level as above. The patient has been started empirically on lactulose. A Gastroenterology consultation has been obtained with Dr. Jon Torres. We will follow recommendations of Gastroenterology. 2. Ascites/edema. This is probably secondary to liver failure as above. S/P paracentesis 04/18/19. 3. Renal failure. A Nephrology consultation has been obtained with Dr. Byers. This is probably hepatorenal failure. 4. History of gastrointestinal hemorrhage. As above, a Gastroenterology consultation has been obtained with Dr. Jon Torres. The patient is status post endoscopy with hemostasis of Dieulafoy lesion. 5. Liver cirrhosis. As above, a gastroenterology consultation has been obtained with Dr. Jon Torres. 6. Hepatic encephalopathy. Continue Xifaxan and lactulose as above. 7. Diabetes type 2. A NovoLog sliding scale has been instituted. 8. Hypertension. Continue amlodipine as above. 9. Alcohol dependence. 10. S/P endoscopy 04/22/19=gastritis 11. Start linezolid; ID consult=Jose Del Angel MD Apr 25, 2019 18:37
--- NOTE | 2019-04-25 19:20 | NUR ---
NURSE NOTES: contacted dr. Hartley office, notified dr Hartley pt is already being discharge by admitting, awaiting for EMS, as dr gave order for a consult with dr. Hu.
--- NOTE | 2019-04-25 19:25 | Consultation ---
History of Present Illness General Date patient seen: Apr 25, 2019 Chief Complaint: Altered Level of Consciousness Referring physician: TONI MARTINEZ Reason for Consultation: CIRRHOSIS Present Illness HPI 58 y/o F with hx of EtOH cirrhosis c/w ascites and encephalopathy, Dm2, GIB 2ry Dieulafoy lesion of the peripyloric region, status post hemostasis with hemoclip and epinephrine injection, HTN, HLD presented to ED on 04/18 with 1 day f AMS. Ammonia level upon admission was 150. In ED, patient had paracentesis done. Underwent EGD on 04/22 and revealed gastritis Allergies: Coded Allergies: No Known Allergies (Unverified , 01/31/19) Medication History Scheduled Amlodipine Besylate* (Amlodipine Besylate*), 5 MG ORAL DAILY, (Reported) Atorvastatin (Lipitor), 40 MG ORAL BEDTIME, (Reported) Celecoxib* (Celebrex*), 200 MG ORAL TWICE A DAY, (Reported) Cholestyramine (Cholestyramine Resin), 5 GM ORAL DAILY, (Reported) Ferrous Sulfate* (Ferrous Sulfate*), 325 MG ORAL DAILY, (Reported) Furosemide* (Lasix*), 20 MG ORAL DAILY, (Reported) Gabapentin* (Gabapentin*), 300 MG ORAL THREE TIMES A DAY, (Reported) Hydroxyzine Hcl (Hydroxyzine Hcl), 10 MG PO TWICE A DAY, (Reported) Lactulose (Lactulose*), 15 GM ORAL Q8HR Lansoprazole* (Lansoprazole*), 15 MG ORAL DAILY, (Reported) Losartan Potassium (Losartan Potassium), 100 MG ORAL DAILY, (Reported) Metformin Hcl* (Metformin Hcl*), 1,000 MG ORAL BID, (Reported) Omeprazole (Omeprazole), 20 MG ORAL BID, (Reported) Rifaximin* (Xifaxan*), 550 MG ORAL TWICE A DAY, (Reported) Spironolactone (Aldactone), 50 MG ORAL DAILY Miscellaneous Medications Calcium Carbonate/Vitamin D3 (Oyster Shell 500 Mg + Vit D Tb), 1 EACH PO, ( Reported) Discontinued Medications Ca Carbonate/Vitamin D3/Vit K (Calcium + D Soft Chewable Tab), 1 EACH PO BID, ( Reported) Discontinued Reason: Therapy completed Folic Acid* (Folic Acid*), 1 MG ORAL DAILY, (Reported) Discontinued Reason: Therapy completed Furosemide* (Lasix*), 40 MG ORAL DAILY Discontinued Reason: Therapy completed Insulin Glargine (Lantus), 0 SUBQ BEDTIME, (Reported) Discontinued Reason: Therapy completed Patient History Healthcare decision maker Self Resuscitation status Full Code Advanced Directive on File No Patient History Narrative Pmhx: as above Shx: The patient is single. The patient denies tobacco use. The patient admits to alcohol abuse, however, the exact amount is unknown. Fhx: non contributory Review of Systems All Other Systems: negative except mentioned in HPI Physical Exam Physical Exam Narrative GENERAL: The patient is a well-developed and well-nourished obese female, in no apparent distress. HEENT: Eyes, pupils are equal and responsive to light and accommodation. Extraocular movements are intact. NECK: Supple without lymphadenopathy. CHEST: Lungs are clear to auscultation bilaterally without wheezes or rales. CARDIOVASCULAR: Regular rhythm and rate. S1, S2 are normal without murmurs, rubs, or gallops. ABDOMEN: Soft, distended with fluid wave present. No evidence of hepatosplenomegaly. Currently, no rebound or guarding noted. EXTREMITIES: Negative for clubbing, cyanosis, or edema. NEUROLOGIC: Cranial nerves II through XII grossly intact without focal deficits. Last 24 Hour Vital Signs Date Time Temp Pulse Resp B/P (MAP) Pulse Ox O2 Delivery O2 Flow Rate FiO2 04/25/19 16:00 97.9 89 18 145/96 (112) 95 04/25/19 12:00 97.6 80 18 128/75 (92) 95 04/25/19 09:00 Room Air 04/25/19 08:00 97.8 81 18 137/83 (101) 98 04/25/19 04:00 97.8 85 20 139/74 (95) 100 04/25/19 00:00 98.0 84 20 118/72 (87) 94 04/24/19 21:00 Room Air 04/24/19 20:00 98.2 80 20 118/77 (91) 94 Intake and Output 04/24/19 04/25/19 19:00 07:00 Intake Total 1185 ml 1040 ml Balance 1185 ml 1040 ml Intake Oral 360 ml IV Total 825 ml 1040 ml # Voids 3 1 # Bowel Movements 5 2 Laboratory Tests Test 04/25/19 06:15 White Blood Count 5.0 K/UL (4.8-10.8) Red Blood Count 4.02 M/UL (4.20-5.40) L Hemoglobin 10.3 G/DL (12.0-16.0) L Hematocrit 34.4 % (37.0-47.0) L Mean Corpuscular Volume 85 FL (80-99) Mean Corpuscular Hemoglobin 25.6 PG (27.0-31.0) L Mean Corpuscular Hemoglobin Concent 30.0 G/DL (32.0-36.0) L Red Cell Distribution Width 19.3 % (11.6-14.8) H Platelet Count 65 K/UL (150-450) L Mean Platelet Volume 8.2 FL (6.5-10.1) Neutrophils (%) (Auto) % (45.0-75.0) Lymphocytes (%) (Auto) % (20.0-45.0) Monocytes (%) (Auto) % (1.0-10.0) Eosinophils (%) (Auto) % (0.0-3.0) Basophils (%) (Auto) % (0.0-2.0) Differential Total Cells Counted 100 Neutrophils % (Manual) 71 % (45-75) Lymphocytes % (Manual) 19 % (20-45) L Monocytes % (Manual) 9 % (1-10) Eosinophils % (Manual) 1 % (0-3) Basophils % (Manual) 0 % (0-2) Band Neutrophils 0 % (0-8) Platelet Estimate Decreased L Platelet Morphology Normal Hypochromasia 1+ Anisocytosis 1+ Sodium Level 135 MMOL/L (136-145) L Potassium Level 3.9 MMOL/L (3.5-5.1) Chloride Level 107 MMOL/L (98-107) Carbon Dioxide Level 18 MMOL/L (21-32) L Anion Gap 10 mmol/L (5-15) Blood Urea Nitrogen 15 mg/dL (7-18) Creatinine 1.4 MG/DL (0.55-1.30) H Estimat Glomerular Filtration Rate 38.7 mL/min (>60) Glucose Level 153 MG/DL (74-106) H Calcium Level 8.4 MG/DL (8.5-10.1) L Height (Feet): 5 Height (Inches): 4.00 Weight (Pounds): 193 Medications Current Medications Medications (Trade) Dose Ordered Sig/Almaz Route PRN Reason Start Time Stop Time Status Last Admin Dose Admin Acetaminophen (Tylenol) 650 mg Q4H PRN ORAL fever 04/20/19 02:00 05/18/19 09:59 Barium Sulfate (Readi-Cat 2) 450 ml NOW PRN ORAL Radiology Procedure 04/24/19 16:15 04/26/19 16:06 Dextrose (Dextrose 50%) 25 ml Q30M PRN IV Hypoglycemia 04/19/19 23:00 05/18/19 09:53 Dextrose (Dextrose 50%) 50 ml Q30M PRN IV hypoglycemia 04/19/19 23:00 05/18/19 09:59 Dextrose/ Electrolytes 1,000 ml @ 75 mls/hr [id number] IV 04/24/19 14:00 05/24/19 13:59 04/25/19 03:29 Diphenhydramine HCl (Benadryl) 25 mg Q6H PRN ORAL Itching/Pruritis 04/19/19 23:00 05/18/19 04:59 04/24/19 13:30 Iopamidol (Isovue-300 100ml) 100 ml NOW PRN INJ Radiology Procedure 04/24/19 16:15 04/26/19 16:06 Lactulose (Cephulac) 30 gm THREE TIMES A DAY ORAL 04/20/19 09:00 05/19/19 12:59 04/25/19 17:31 Linezolid 300 ml @ 300 mls/hr Q12HR IVPB 04/23/19 16:00 04/30/19 15:59 04/25/19 08:08 Nitroglycerin (Ntg) 0.4 mg Q5M X 3 DOSES PRN SL Prn Chest Pain 04/19/19 23:00 05/18/19 09:59 Ondansetron HCl (Zofran) 4 mg Q6H PRN IVP Nausea & Vomiting 04/19/19 23:00 05/18/19 04:59 04/22/19 12:20 Polyethylene Glycol (Miralax) 17 gm HSPRN PRN ORAL Constipation 04/20/19 10:00 05/18/19 09:59 Potassium Chloride (K-Dur) 40 meq TWICE A DAY ORAL 04/24/19 12:45 04/26/19 12:44 04/25/19 17:32 Rifaximin (Xifaxan) 550 mg EVERY 12 HOURS ORAL 04/20/19 09:00 05/02/19 23:00 04/25/19 08:06 Assessment/Plan Assessment/Plan: Abx: Linezolid 04/23- IV Vancomycin x1 04/18 Flagyl 04/18 Cefepime 04/18- Assessment: Hepatic encephalopathy Ascites -04/18 s/p paracentesis: yielding 7.9 liters of fluid -no cell count or cultures were sent Abd US: Evidence of hepatic cirrhosis, also previously described. Evidence of portal hypertension, with splenomegaly and trace ascites. Note apparent to and fro flow within the main portal vein also likely indicating portal hypertension. Cholelithiasis. Gallbladder wall thickening, likely related to nondistention and the portal hypertension, but the possibility of acute cholecystitis should also be entertained. Consider hepatobiliary nuclear scan for further evaluation if there is high clinical suspicion. 4.8 cm hypoechoic masslike structure in the left hepatic lobe. Possibly artifactual as no similar finding is demonstrated on prior CT scan. However, this could also represent interim development of a real finding such as mass or abscess, and consideration should be given for repeat contrast CT as clinically indicated. Bacteriuria -u/a no pyuria, nit neg, luek +1; ucx >100k VRE (S linezolid) Afebrile No leukocytosis -CXR: Hypoventilatory exam. No definite acute process -Bcx neg EtOH cirrhosis c/w ascites and encephalopathy -?hepatic mass -04/22 SP EGD: gastritis -hep serologies neg ZI, improving Dm2 hx of GIB 2ry Dieulafoy lesion of the peripyloric region -status post hemostasis with hemoclip and epinephrine injection HTN HLD Plan: -Linezolid #3/3 -f/u cx -Monitor CBC/CMP, temperatures -GI f/u -aspiration precautions Thank you for this consultation. Will continue to follow along with you. Discussed with Edyta Daly M.D. Apr 25, 2019 19:25
--- NOTE | 2019-04-25 19:46 | NUR ---
HAND-OFF: Report given to CHAVA Ramos.
--- NOTE | 2019-04-25 20:08 | NUR ---
NURSE NOTES: RECEIVED REPORT FROM [facility]. FAMILY MEMBERS PRESENT. PT IS AWAKE, AAOX4, ON ROOM AIR, NO ACUTE DISTRESS NOTED. NO IV ACCESS. ECCHYMOSIS NOTED ON CHEST, SHOULDERS AND UPPER BACK. RASHES IN GROIN AREA NOTED. ABDOMEN IS LARGE, AND DISTENDED. PT IS TO BE DISCHARGED TO [facility]. REPORT GIVEN TO EMS CORE[facility]. PT IS BEING TRANSFERRED BY [facility].
--- NOTE | 2019-04-26 08:04 | Discharge Summary ---
Discharge Summary Discharge Summary _ DATE OF ADMISSION: 04/18/2019 DATE OF DISCHARGE: 04/25/2019 DISCHARGED BY: Dr. Amador REASON FOR ADMISSION: 58 years old female with past medical history of alcoholic liver cirrhosis, hepatic encephalopathy, thrombocytopenia, alcohol dependency, diabetes mellitus type 2, hypertension, presented to emergency department with acute altered mental status for one day. Patient was unable to provide any history. Upon evaluation laboratory work-up revealed no leukocytosis, hemoglobin 10.6 , hematocrit 34.3, platelet count 96. INR 1.4. Sodium 133, potassium 4.3. BUN 33, creatinine 2.2. Lactic acid 3.6. Total bilirubin 2.7, direct bilirubin 1.7. AST 44 ALT 24. Lipase 51 Ammonia level 151. Troponin negative, pro BNP 598. Albumin 1.8. Serum alcohol level negative. Serum salicylate and Tylenol level negative. EKG revealed normal sinus rhythm , no acute ischemic changes. Chest x-ray revealed no acute cardiopulmonary pathology. In emergency department patient undergone ultrasound-guided paracentesis , yielding 7.9 L of ascitic fluid. Patient started on broad-spectrum antibiotic and initially received fluid resuscitation. Patient started on lactulose and subsequently admitted for further management CONSULTANTS: pulmonary /critical care Dr. Khan ID specialist Dr. Hartley GI specialist fabiana [facility] COURSE: Patient admitted and started on empiric antibiotics. GI specialist closely followed. Patient with a history of EGD on due to active bleeding from [place] lesion. Abdominal ultrasound revealed evidence of hepatic cirrhosis. Evidence of portal hypertension with splenomegaly and trace ascites. Cholelithiasis. 4.8 cm hypoechoic masslike structure in the left hepatic lobe. Possibly artifactual as no similar finding is demonstrated on prior CT scan. However, this could also represent interim development of a real finding, such as mass or abscess, and consideration should be given for repeat contrast CT as clinically indicated. Patient subsequently undergone upper endoscopy with biopsy, which revealed no evidence of esophageal or gastric varices , but showed moderate to severe portal hypertensive gastropathy and shallow gastric ulcer. Pathology of ascites fluid was negative for malignant cells. Pathology of antrum biopsy revealed mild chronic gastritis no H. pylori. Stool for occult blood was positive. Hemoglobin and hematocrit were closely monitored with goal to keep hemoglobin above 7. Hemoglobin hematocrit remained in the baseline, and prior to discharge hemoglobin 10.3, hematocrit 34.4. Platelet count closely monitored : from 96 down to 65 . Thrombocytopenia likely due to liver disease. No evidence of bleeding. Patient received vitamin K x1. INR remained elevated- 1.4, likely due to liver disease Hepatitis panel was negative. LFT and bilirubin were closely monitored, remained elevated due to liver cirrhosis. Hepatitis panel was negative. Patient continued on lactulose and Xifaxan. Ammonia down to 44 upon discharge. GI prophylaxis with PPI provided. Renal ultrasound revealed no evidence of hydronephrosis. Ascites and hepatic cirrhosis noted. Both kidneys demonstrated normal echogenicity. Renal parameters and electrolytes were closely monitored. Electrolytes /potassium and magnesium corrected as needed ; nephrotoxins were avoided as possible. Creatinine from initial 2.2 down to 1.4, electrolytes stable prior to discharge. Blood cultures were negative. Cell count and ascitic fluid culture were not sent after emergent paracentesis done in emergency department. Urine culture revealed VRE. Infectious disease specialist seen and evaluated patient. Patient received linezolid for 3 days. Per infectious disease specialist, likely bacteriuria with VRE, since the urinalysis revealed no pyuria and was negative for nitrates. Patient remained afebrile, no leukocytosis. No further antibiotic required. GI specialist recommended CT of the abdomen next week with IV contrast to follow -up on possible liver mass and possible portal vein thrombosis which can be done as outpatient. Supplemental oxygen provided as needed to keep pulse oximetry above 92%. Prior to discharge pulse oximetry stable on room air. Blood sugar was closely monitor remained stable. Blood pressure was closely monitor and manage his current regimen. Pain management addressed. Supportive care provided. Patient clinically stabilized and was ready for transfer back to long term facility for continuation of care FINAL DIAGNOSES: Acute metabolic encephalopathy Hepatic encephalopathy Ascites Status post paracentesis-7.9 L yield Acute renal failure -improved Moderate to severe portal hypertensive gastropathy Alcoholic liver cirrhosis Anasarca Diabetes mellitus type 2 Hypertension ETOH abuse Bacteriuria with VRE Possible liver mass Possible portal vein thrombosis Gallstones DISCHARGE MEDICATIONS: See Medication Reconciliation list. DISCHARGE INSTRUCTIONS: Patient was discharged to the long term facility. Follow up with medical doctor at the facility. I have been assigned to dictate discharge summary for this account. I was not involved in the patient's management. Corinna Guzman NP Apr 26, 2019 08:04
--- NOTE | 2019-04-26 10:44 | Diagnostic Imaging Report ---
Indication: Abdominal pain Technique: Continuous helical transaxial imaging of the abdomen was obtained from the lung bases to the iliac crests during intravenous contrast administration. Coronal 2-D reformats were also obtained. Study obtained in a Siemens sensation [address] Total Dose length Product (DLP): [address] Dose Index Volume (CTDIvol): 12.13, 18.9, 170.1, 26.25, 26.25, 26.25 mGy Comparison: 03/13/2019 Findings: There is a moderate to severe ascites. Spleen is enlarged. There is a wedge-shaped defect within the spleen noted. This was seen to some extent previously and may be an infarct. There is extensive nodularity of the liver. 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 Gallstones are present. Bowel gas pattern is nonobstructive. Anasarca noted. The lung bases are essentially clear. Cardiomegaly is present. IMPRESSION: Severe chronic liver disease/cirrhosis. Stigmata of portal hypertension including ascites and splenomegaly, portosystemic varices. Wedge-shaped low-attenuation focus in the spleen, nonspecific. This could be a small infarct. This was present previously also. Cholelithiasis. Anasarca. The CT scanner at [facility] is accredited by the [employer] and the scans are performed using protocols designed to limit radiation exposure to as low as reasonably achievable to attain images of sufficient resolution adequate for diagnostic evaluation.
== END 2019-04-25 20:00 | DRG 432 ==
LOC: EDBD 08:08 → EDBEDREQ 08:31 → EMR 08:38 → 2W 08:42 → EDBEDREQ 09:16 → 2W 10:20 → 2E 04-19 04:27 → 4E 04-19 22:33
PROC: 0W9G3ZZ Drainage of Peritoneal Cavity, Percutaneous Approach (ICD-10-PCS; 2019-04-18)
PROC: 0DB78ZX Excision of Stomach, Pylorus, Via Natural or Artificial Opening Endoscopic, Diagnostic (ICD-10-PCS; 2019-04-22)
PROC: 3E03328 Introduction of Oxazolidinones into Peripheral Vein, Percutaneous Approach (ICD-10-PCS; principal; 2019-04-23)
DX: K70.31 Alcoholic cirrhosis of liver with ascites (principal); G93.41 Metabolic encephalopathy; I81 Portal vein thrombosis; N17.9 Acute kidney failure, unspecified; K76.6 Portal hypertension; K92.2 Gastrointestinal hemorrhage, unspecified; N39.0 Urinary tract infection, site not specified; E11.9 Type 2 diabetes mellitus without complications; I10 Essential (primary) hypertension; K70.40 Alcoholic hepatic failure without coma; F10.20 Alcohol dependence, uncomplicated; K31.89 Other diseases of stomach and duodenum; K76.89 Other specified diseases of liver; E78.5 Hyperlipidemia, unspecified; K80.20 Calculus of gallbladder without cholecystitis without obstruction; K25.9 Gastric ulcer, unspecified as acute or chronic, without hemorrhage or perforation; B95.2 Enterococcus as the cause of diseases classified elsewhere; E87.6 Hypokalemia; K80.80 Other cholelithiasis without obstruction
CPT/HCPCS: 36415; 71045; 74160; 76700; 76770; 76942; 80048; 80053; 80329; 81001; 81003; 82043; 82140; 82248; 82270; 82550; 82553; 82962; 83605; 83690; 83735; 83880; 83935; 84100; 84300; 84484; 84550; 85007; 85025; 85610; 85730; 86705; 86709; 86803; 86850; 86900; 86901; 87040; 87081; 87086; 87181; 87340; 88104; 89050; 93005; 94003; 94150; 96365; 96366; 99291; J2250; J2405; J8499

== ENCOUNTER 2019-04-28 20:31 | Inpatient (IN) | payer MEDICARE, OTHER ==
[~2019-04-28] VITALS: Ht 162.6 cm; Wt 95.3 kg
[~2019-04-28 20:31] MED LIST changes: +CELEBREX200 MG ORAL; +GABAPENTIN300 MG ORAL; +HYDROXYZINE HCL10 M1 PO; +LANSOPRAZOLE15 MG ORAL; +OYSTER SHELL 51 EAC1 PO
--- NOTE | 2019-04-28 20:44 | NUR ---
ED Nurse Note: pt brought in by [facility] half-way c/c abd pain, per EMS report pt was in the hospital couple days ago for same pain and was discharged. pt states she's been having abd x 3 days. noted abd distended and tender, will cont monitor. active bs noted.
[2019-04-28] MEDS ORDERED: Morphine Sulfate 4mg/ml Inj (IV USE ONLY) IVP ONE (21:00)
--- NOTE | 2019-04-28 21:03 | Emergency Room Report ---
History of Present Illness General Chief Complaint: Abdominal Pain Source: Patient, Medical Record, EMS Present Illness HPI This is a 58-year-old female with multiple medical problems including cirrhosis with ascites and portal hypertension. She was admitted here [facility]. Work-up negative for infection. She presents back with chief complaint abdominal pain. This is a chronic problem. She is been here multiple times with the same thing. No fever no chills but no nausea no vomiting. No diarrhea. Pain is 9 out of 10. Denies any trauma. Allergies: Coded Allergies: No Known Allergies (Unverified , 01/31/19) Patient History Past Medical History: see triage record, old chart reviewed Past Surgical History: other Pertinent Family History: none Social History: Denies: smoking Now: No Immunizations: other Reviewed Nursing Documentation: PMH: Agreed; PSxH: Agreed Nursing Documentation-PMH Past Medical History: No History, Except For Hx Cardiac Problems: Yes Hx Hypertension: Yes Hx Diabetes: Yes Hx Gastrointestinal Problems: Yes - Alcoholic liver cirrhosis;Thrombocytopenia History Of Psychiatric Problem: Yes - Alcohol dependenc Hx Neurological Problems: Yes - Hepatic encephalopathy Review of Systems Eye: Denies: eye pain, blurred vision ENT: Denies: ear pain, nose congestion, throat swelling Respiratory: Denies: cough, shortness of breath Cardiovascular: Denies: chest pain, palpitations Gastrointestinal: Reports: abdominal pain; Denies: diarrhea, nausea, vomiting Musculoskeletal: Denies: back pain, joint pain Skin: Denies: rash Neurological: Denies: headache, numbness Endocrine: Denies: increased thirst, increased urine Hematologic/Lymphatic: Denies: easy bruising All Other Systems: negative except mentioned in HPI Physical Exam Vital Signs Date Time Temp Pulse Resp B/P (MAP) Pulse Ox O2 Delivery O2 Flow Rate FiO2 04/28/19 20:38 97.9 95 22 119/63 (81) 97 Room Air Vitals normal Sp02 EP Interpretation: reviewed, normal General Appearance: well appearing, no apparent distress, alert Head: normocephalic, atraumatic Eyes: bilateral eye PERRL, bilateral eye EOMI, bilateral eye scleral icterus ENT: hearing grossly normal, normal pharynx Neck: full range of motion, supple, no meningismus Respiratory: chest non-tender, lungs clear, normal breath sounds Cardiovascular #1: regular rate, rhythm, no murmur Gastrointestinal: normal bowel sounds, no mass, no organomegaly, no bruit, tenderness - Diffuse tenderness, other - Ascites Musculoskeletal: back normal, gait/station normal, normal range of motion Psychiatric: mood/affect normal Medical Decision Making Diagnostic Impression: Primary Impression: Sepsis Qualified Codes: A41.9 - Sepsis, unspecified organism Additional Impressions: UTI (urinary tract infection) Qualified Codes: N30.00 - Acute cystitis without hematuria Abdominal pain Qualified Codes: R10.84 - Generalized abdominal pain Liver cirrhosis Qualified Codes: K70.31 - Alcoholic cirrhosis of liver with ascites ER Course Patient presents with abdominal pain and fever. She was just discharged from here. She has a urinary tract infection. Spectrum antibiotics given. This will also cover for potential SBP. I discussed the case with Dr. Amador who will admit. Rhythm Strip Diag. Results EP Interpretation: yes Rate: 95 Rhythm: NSR, no PVC's, no ectopy Last Vital Signs Date Time Temp Pulse Resp B/P (MAP) Pulse Ox O2 Delivery O2 Flow Rate FiO2 04/28/19 20:38 97.9 95 22 119/63 (81) 97 Room Air Status: improved Disposition: ADMITTED INPATIENT Condition: Serious Ryan Lane MD Apr 28, 2019 21:03
[2019-04-28] MEDS ORDERED: FUROSEMIDE40 MG ORAL (21:04)
[2019-04-28] MEDS ORDERED: MAGNESIUM OXID400 M1 ORAL (21:04)
--- NOTE | 2019-04-28 21:10 | NUR ---
ED Nurse Note: noted rectal temp 101.2 ERMD notifed, cooling measures done.
[2019-04-28] MEDS ORDERED: Acetaminophen 500mg (ES) tab ORAL ONE (21:15)
[2019-04-28 21:45] VITALS: BP 104/86
--- NOTE | 2019-04-28 21:45 | NUR ---
ED Nurse Note: pt cleaned and changed into gown, noted redness in buttock and skin fold area, picture taken.
[2019-04-28 22:05] LABS: HEMATOCRIT 29.4 % (37.0-47.0); MEAN CORPUSCULAR VOLUME 83 FL (80-99); PLATELET COUNT 55 K/UL (150-450); RED BLOOD COUNT 3.53 M/UL (4.20-5.40); RED CELL DISTRIBUTION WIDTH 20.8 % (11.6-14.8); WHITE BLOOD COUNT 11.9 K/UL (4.8-10.8)
[2019-04-28 22:09] LABS: INR 1.5 (0.9-1.1)
--- NOTE | 2019-04-28 22:15 | NUR ---
ED Nurse Note: ERMd aware of lactic result, 2.8, per eRMD order 1L NS will start.
[2019-04-28 22:16] LABS: ANION GAP 10 mmol/L (5-15); BLOOD UREA NITROGEN 20 mg/dL (7-18); CALCIUM 8.6 MG/DL (8.5-10.1); CARBON DIOXIDE 16 MMOL/L (21-32); CHLORIDE 106 MMOL/L (98-107); CREATININE 1.3 MG/DL (0.55-1.30); POTASSIUM 5.3 MMOL/L (3.5-5.1); SODIUM 132 MMOL/L (136-145)
[2019-04-28 22:27] LABS: ALANINE AMINOTRANSFERASE 25 U/L (12-78); ALBUMIN 1.6 G/DL (3.4-5.0); ALBUMIN/GLOBULIN RATIO 0.3 (1.0-2.7); ALKALINE PHOSPHATASE 300 U/L (46-116); ASPARTATE AMINO TRANSFERASE 38 U/L (15-37)
[2019-04-28 22:28] LABS: BILIRUBIN,DIRECT 2.7 MG/DL (0.0-0.3)
[2019-04-28 22:28] LABS: APPEARANCE,URINE CLEAR; BILIRUBIN, URINE 1+ (NEGATIVE); COLOR,URINE BROWN; GLUCOSE, URINE (UA) NEGATIVE (NEGATIVE); KETONES,URINE 1+ (NEGATIVE); LEUKOCYTE ESTERASE ,URINE 2+ (NEGATIVE); NITRITE,URINE NEGATIVE (NEGATIVE); PH,URINE 5 (4.5-8.0); PROTEIN,URINE 1+ (NEGATIVE); UROBILINOGEN,URINE 1 MG/DL (0.0-1.0)
[2019-04-28 22:45] VITALS: BP 108/56
[2019-04-28] MEDS ORDERED: Ertapenem 1 GM in NS 55 ML IV ONE (22:45)
[2019-04-28 23:45] VITALS: BP 110/56
--- NOTE | 2019-04-29 00:51 | NUR ---
ED Nurse Note: report given to CHAVA Burns from Ms.
--- NOTE | 2019-04-29 01:00 | NUR ---
ED Nurse Note: PT transferred to [facility], all belongings sent w/ pt (one bracelet on pt) w/ list, pt vss, iv intact and patent. care endorsed to CHAVA small.
[2019-04-29] MEDS ORDERED: QUESTRAN POWDER4 GM ORAL (01:35)
[2019-04-29] MEDS ORDERED: LACTULOSE10 GM/154 PO (01:39)
--- NOTE | 2019-04-29 01:50 | NUR ---
NURSE NOTES: Received report from [facility] ED nurse. Pt arrived to unit at 0100. Pt transferred into bed in room 420-1. Vital obtained 98.1F, 116/73 BP, 96HR, 20RR. Assessment is done. Pt AAO x 3, on room air. IV R FA 20g intact and patent. Swabs done in ED. Noted redness on buttock and rectal area. All belongings reviewed. Meds recon done. Called and left message Dr. Amador to get new admission order. Also reported Plt 55, K 5.3, Lactic acid 2.5 and morphine 4mg, tylenol 1000mg given in ED. Bed locked, lowest position, alarm on, call light within reach. Will continue to monitor.
--- NOTE | 2019-04-29 02:20 | NUR ---
NURSE NOTES: Took picture on buttock, R groin and uploaded.
--- NOTE | 2019-04-29 02:29 | NUR ---
NURSE NOTES: RN called Dr. Amador and left message @[phone] for new admission order. It is the second call.
--- NOTE | 2019-04-29 03:15 | NUR ---
NURSE NOTES: Third time calling to Dr. Amador and left message @[phone]. Still waiting for call back.
--- NOTE | 2019-04-29 03:45 | NUR ---
NURSE NOTES: Received order from Dr. Amador and order carried out.
[2019-04-29 04:00] VITALS: BP 116/66
[2019-04-29] MEDS ORDERED: HYDROcodone/Acetamin 5/325 tab ORAL PRN (05:00)
[2019-04-29] MEDS ORDERED: Morphine Sulfate 2mg/ml Inj(IV/IM USE ONLY) IVP PRN (05:00)
--- NOTE | 2019-04-29 06:49 | NUR ---
NURSE NOTES: Checked BS 96.
[2019-04-29 08:00] VITALS: BP 120/69
--- NOTE | 2019-04-29 08:04 | NUR ---
HAND-OFF: Report given to CHAVA Flannery.
[2019-04-29] MEDS: Spironolactone 50mg tab ORAL SCH (08:25)
[2019-04-29] MEDS: Lactulose 20gm/30ml UDC ORAL SCH ×3 (08:25→18:47)
[2019-04-29] MEDS: Magnesium Oxide 400mg tab ORAL SCH ×2 (08:26→18:18)
[2019-04-29] MEDS: Cholestyramine 4gm Pkt ORAL SCH (08:26)
--- NOTE | 2019-04-29 08:38 | NUR ---
NURSE NOTES: Patient is awake and alert,respirations unlabored..Patient taking small amount of clear liquids for breakfast at this time..Bed alarm is on,call light within reach.
[2019-04-29] MEDS ORDERED: Furosemide 40mg tab ORAL SCH (09:00)
[2019-04-29 10:18] LABS: HEMATOCRIT 27.3 % (37.0-47.0); HEMOGLOBIN 8.3 G/DL (12.0-16.0); MEAN CORPUSCULAR VOLUME 85 FL (80-99); PLATELET COUNT 50 K/UL (150-450); RED BLOOD COUNT 3.23 M/UL (4.20-5.40); RED CELL DISTRIBUTION WIDTH 20.8 % (11.6-14.8); WHITE BLOOD COUNT 11.6 K/UL (4.8-10.8)
[2019-04-29 12:00] VITALS: BP 125/72
--- NOTE | 2019-04-29 13:38 | Consultation ---
History of Present Illness General Date patient seen: Apr 29, 2019 Chief Complaint: Abdominal Pain Present Illness HPI 58 year old female with hx of end stage liver disease, cirrhosis, increasing weakness, [facility] resident presented to ER with CC of increasing abdominal girth and increased lethargy. pt is admitted for further management. Allergies: Coded Allergies: No Known Allergies (Unverified , 01/31/19) Medication History Scheduled Cholestyramine (Cholestyramine Packet), 4 GM ORAL DAILY, (Reported) Cholestyramine (Cholestyramine Packet), 4 GM ORAL DAILY Furosemide* (Lasix*), 40 MG ORAL DAILY, (Reported) Lactulose (Lactulose), 15 GM PO EVERY 8 HOURS, (Reported) Lansoprazole* (Lansoprazole*), 15 MG ORAL DAILY, (Reported) Magnesium Oxide (Magnesium Oxide), 400 MG ORAL BID, (Reported) Rifaximin* (Xifaxan*), 550 MG ORAL TWICE A DAY, (Reported) Spironolactone (Aldactone), 50 MG ORAL DAILY Discontinued Medications Amlodipine Besylate* (Amlodipine Besylate*), 5 MG ORAL DAILY, (Reported) Discontinued Reason: Therapy completed Atorvastatin (Lipitor), 40 MG ORAL BEDTIME, (Reported) Discontinued Reason: Therapy completed Calcium Carbonate/Vitamin D3 (Oyster Shell 500 Mg + Vit D Tb), 1 EACH PO, ( Reported) Discontinued Reason: Therapy completed Celecoxib* (Celebrex*), 200 MG ORAL TWICE A DAY, (Reported) Discontinued Reason: Therapy completed Cholestyramine (Cholestyramine Resin), 5 GM ORAL DAILY, (Reported) Discontinued Reason: Medication dose changed Ferrous Sulfate* (Ferrous Sulfate*), 325 MG ORAL DAILY, (Reported) Discontinued Reason: Therapy completed Gabapentin* (Gabapentin*), 300 MG ORAL THREE TIMES A DAY, (Reported) Discontinued Reason: Therapy completed Hydroxyzine Hcl (Hydroxyzine Hcl), 10 MG PO TWICE A DAY, (Reported) Discontinued Reason: Therapy completed Lactulose (Lactulose*), 15 GM ORAL Q8HR Discontinued Reason: Medication dose changed Losartan Potassium (Losartan Potassium), 100 MG ORAL DAILY, (Reported) Discontinued Reason: Therapy completed Metformin Hcl* (Metformin Hcl*), 1,000 MG ORAL BID, (Reported) Discontinued Reason: Therapy completed Omeprazole (Omeprazole), 20 MG ORAL BID, (Reported) Discontinued Reason: Therapy completed Patient History Healthcare decision maker Resuscitation status Full Code Advanced Directive on File Past Medical/Surgical History Past Medical/Surgical History: (1) Liver cirrhosis (2) Ascites (3) Anasarca (4) ETOH abuse Review of Systems All Other Systems: negative except mentioned in HPI Physical Exam General Appearance: WD/WN, no apparent distress Lines, tubes and drains: peripheral HEENT: normocephalic, atraumatic Neck: non-tender, normal alignment Respiratory/Chest: chest wall non-tender, lungs clear Breasts: no masses Cardiovascular/Chest: normal peripheral pulses Abdomen: normal bowel sounds, non tender Genitourinary/Rectal: normal genital exam Skin Exam: normal pigmentation 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 Last 24 Hour Vital Signs Date Time Temp Pulse Resp B/P (MAP) Pulse Ox O2 Delivery O2 Flow Rate FiO2 04/29/19 08:00 98.3 90 18 120/69 (86) 96 04/29/19 04:00 98.1 92 18 116/66 (83) 95 04/29/19 02:35 Room Air 04/29/19 01:00 98.9 96 18 113/67 95 Room Air 04/28/19 23:45 99.1 96 18 110/56 94 Room Air 04/28/19 22:45 98.9 93 18 108/56 94 Room Air 04/28/19 22:15 101.2 04/28/19 22:12 101.2 04/28/19 21:45 95 22 Room Air 04/28/19 21:45 101.2 97 22 104/86 97 Room Air 04/28/19 20:38 97.9 95 22 119/63 (81) 97 Room Air Intake and Output 04/28/19 04/29/19 19:00 07:00 Intake Total 30 ml Balance 30 ml Intake Oral 30 ml # Voids 2 # Bowel Movements 2 Laboratory Tests Test 04/28/19 21:40 04/28/19 22:14 04/28/19 23:20 04/29/19 09:45 White Blood Count 11.9 K/UL (4.8-10.8) H 11.6 K/UL (4.8-10.8) H Red Blood Count 3.53 M/UL (4.20-5.40) L 3.23 M/UL (4.20-5.40) L Hemoglobin 9.0 G/DL (12.0-16.0) L 8.3 G/DL (12.0-16.0) L Hematocrit 29.4 % (37.0-47.0) L 27.3 % (37.0-47.0) L Mean Corpuscular Volume 83 FL (80-99) 85 FL (80-99) Mean Corpuscular Hemoglobin 25.6 PG (27.0-31.0) L 25.7 PG (27.0-31.0) L Mean Corpuscular Hemoglobin Concent 30.7 G/DL (32.0-36.0) L 30.4 G/DL (32.0-36.0) L Red Cell Distribution Width 20.8 % (11.6-14.8) H 20.8 % (11.6-14.8) H Platelet Count 55 K/UL (150-450) L 50 K/UL (150-450) L Mean Platelet Volume 6.2 FL (6.5-10.1) L 7.5 FL (6.5-10.1) Neutrophils (%) (Auto) % (45.0-75.0) % (45.0-75.0) Lymphocytes (%) (Auto) % (20.0-45.0) % (20.0-45.0) Monocytes (%) (Auto) % (1.0-10.0) % (1.0-10.0) Eosinophils (%) (Auto) % (0.0-3.0) % (0.0-3.0) Basophils (%) (Auto) % (0.0-2.0) % (0.0-2.0) Differential Total Cells Counted 100 100 Neutrophils % (Manual) 88 % (45-75) H 90 % (45-75) H Lymphocytes % (Manual) 7 % (20-45) L 7 % (20-45) L Monocytes % (Manual) 4 % (1-10) 2 % (1-10) Eosinophils % (Manual) 0 % (0-3) 1 % (0-3) Basophils % (Manual) 1 % (0-2) 0 % (0-2) Band Neutrophils 0 % (0-8) 0 % (0-8) Platelet Estimate Decreased L Decreased L Platelet Morphology Normal Normal Hypochromasia 1+ 1+ Anisocytosis 1+ 2+ Prothrombin Time 15.5 SEC (9.30-11.50) H Prothromb Time International Ratio 1.5 (0.9-1.1) H Activated Partial Thromboplast Time 31 SEC (23-33) Sodium Level 132 MMOL/L (136-145) L Potassium Level 5.3 MMOL/L (3.5-5.1) H Chloride Level 106 MMOL/L (98-107) Carbon Dioxide Level 16 MMOL/L (21-32) L Anion Gap 10 mmol/L (5-15) Blood Urea Nitrogen 20 mg/dL (7-18) H Creatinine 1.3 MG/DL (0.55-1.30) Estimat Glomerular Filtration Rate 42.2 mL/min (>60) Glucose Level 90 MG/DL (74-106) Lactic Acid Level 2.80 mmol/L (0.4-2.0) H 2.50 mmol/L (0.66-2.22) H Calcium Level 8.6 MG/DL (8.5-10.1) Total Bilirubin 5.0 MG/DL (0.2-1.0) H Direct Bilirubin 2.7 MG/DL (0.0-0.3) H Aspartate Amino Transf (AST/SGOT) 38 U/L (15-37) H Alanine Aminotransferase (ALT/SGPT) 25 U/L (12-78) Alkaline Phosphatase 300 U/L (46-116) H Total Protein 6.9 G/DL (6.4-8.2) Albumin 1.6 G/DL (3.4-5.0) L Globulin 5.3 g/dL Albumin/Globulin Ratio 0.3 (1.0-2.7) L Lipase 62 U/L (73-393) L Urine Color Brown Urine Appearance Clear Urine pH 5 (4.5-8.0) Urine Specific Gilbert 1.015 (1.005-1.035) Urine Protein 1+ (NEGATIVE) H Urine Glucose (UA) Negative (NEGATIVE) Urine Ketones 1+ (NEGATIVE) H Urine Blood 2+ (NEGATIVE) H Urine Nitrite Negative (NEGATIVE) Urine Bilirubin 1+ (NEGATIVE) H Urine Ictotest Positive (NEGATIVE) Urine Urobilinogen 1 MG/DL (0.0-1.0) H Urine Leukocyte Esterase 2+ (NEGATIVE) H Urine RBC 10-15 /HPF (0 - 2) H Urine WBC 5-10 /HPF (0 - 2) H Urine Squamous Epithelial Cells Few /LPF (NONE/OCC) Urine Bacteria Moderate /HPF (NONE) H Urine Yeast Moderate /HPF (NONE) H Microbiology Date/Time Source Procedure Growth Status 04/28/19 22:14 Urine,Clean Catch Urine Culture - Preliminary NO GROWTH Resulted Height (Feet): 5 Height (Inches): 4.00 Weight (Pounds): 210 Medications Current Medications Medications (Trade) Dose Ordered Sig/Almaz Route PRN Reason Start Time Stop Time Status Last Admin Dose Admin Acetaminophen/ Hydrocodone Bitart ([place] 5/325) 1 tab Q6H PRN ORAL Moderate Pain (Pain Scale 4-6) 04/29/19 05:00 05/06/19 04:59 Cholestyramine Resin (Questran) 4 gm DAILY ORAL 04/29/19 09:00 05/29/19 08:59 04/29/19 08:26 Furosemide (Lasix) 40 mg DAILY ORAL 04/29/19 09:00 05/29/19 08:59 04/29/19 08:26 Lactulose (Cephulac) 15 gm THREE TIMES A DAY ORAL 04/29/19 09:00 05/29/19 08:59 04/29/19 08:25 Magnesium Oxide (Mag-Ox 400mg) 400 mg BID ORAL 04/29/19 09:00 05/29/19 08:59 04/29/19 08:26 Morphine Sulfate (Morphine Sulfate) 2 mg Q6H PRN IVP Severe Pain (Pain Scale 7-10) 04/29/19 05:00 05/06/19 04:59 Ondansetron HCl (Zofran) 4 mg Q4H PRN IVP Nausea & Vomiting 04/29/19 05:00 05/29/19 04:59 Pantoprazole (Protonix) 40 mg DAILY ORAL 04/29/19 09:00 05/29/19 08:59 04/29/19 08:26 Rifaximin (Xifaxan) 550 mg TWICE A DAY ORAL 04/29/19 09:00 05/06/19 08:59 04/29/19 08:26 Spironolactone (Aldactone) 50 mg DAILY ORAL 04/29/19 09:00 05/29/19 08:59 04/29/19 08:25 Assessment/Plan Problem List: (1) Acute metabolic encephalopathy ICD Codes: G93.41 - Metabolic encephalopathy SNOMED: 29264246, 239159450 (2) Anasarca ICD Codes: R60.1 - Generalized edema SNOMED: 839335707, 920691174 (3) Abdominal pain ICD Codes: R10.9 - Unspecified abdominal pain SNOMED: 91309768 Qualifiers: Qualified Codes: R10.84 - Generalized abdominal pain (4) Ascites ICD Codes: R18.8 - Other ascites SNOMED: 163809114 (5) ETOH abuse ICD Codes: F10.10 - Alcohol abuse, uncomplicated SNOMED: 33081408 (6) Liver cirrhosis ICD Codes: K74.60 - Unspecified cirrhosis of liver SNOMED: 63301266 Qualifiers: Qualified Codes: K70.31 - Alcoholic cirrhosis of liver with ascites (7) Acute on chronic alcoholic liver disease ICD Codes: K70.9 - Alcoholic liver disease, unspecified SNOMED: 814432642 Assessment/Plan: paracentesis check lactulose symptomatic treatment check electrolytes f/u iron studies Shireen Khan MD Apr 29, 2019 13:38
--- NOTE | 2019-04-29 13:58 | Consultation ---
History of Present Illness General Date patient seen: Apr 29, 2019 Reason for Hospitalization: Abdominal Pain Present Illness HPI This is a 58 year old female with multiple medical comorbidities who was recently discharge from [facility] in stable condition who presents with abdominal pain and discomfort. patient with known hepatic cirrhosis and ascites. is currently jaundice and very ill appearing. surgery called to evaluate and assist with care. patient seen, chart reviewed, patient examined. states she has abdominal distention and discomfort. Allergies: Coded Allergies: No Known Allergies (Unverified , 01/31/19) Medication History Scheduled Amlodipine Besylate* (Amlodipine Besylate*), 5 MG ORAL DAILY, (Reported) Atorvastatin (Lipitor), 40 MG ORAL BEDTIME, (Reported) Celecoxib* (Celebrex*), 200 MG ORAL TWICE A DAY, (Reported) Cholestyramine (Cholestyramine Packet), 4 GM ORAL DAILY, (Reported) Ferrous Sulfate* (Ferrous Sulfate*), 325 MG ORAL DAILY, (Reported) Furosemide* (Lasix*), 20 MG ORAL DAILY, (Reported) Furosemide* (Lasix*), 40 MG ORAL DAILY, (Reported) Gabapentin* (Gabapentin*), 300 MG ORAL THREE TIMES A DAY, (Reported) Hydroxyzine Hcl (Hydroxyzine Hcl), 10 MG PO TWICE A DAY, (Reported) Lactulose (Lactulose), 10 GM PO EVERY 8 HOURS, (Reported) Lansoprazole* (Lansoprazole*), 15 MG ORAL DAILY, (Reported) Losartan Potassium (Losartan Potassium), 100 MG ORAL DAILY, (Reported) Magnesium Oxide (Magnesium Oxide), 400 MG ORAL BID, (Reported) Metformin Hcl* (Metformin Hcl*), 1,000 MG ORAL BID, (Reported) Omeprazole (Omeprazole), 20 MG ORAL BID, (Reported) Rifaximin* (Xifaxan*), 550 MG ORAL TWICE A DAY, (Reported) Spironolactone (Aldactone), 50 MG ORAL DAILY Miscellaneous Medications Calcium Carbonate/Vitamin D3 (Oyster Shell 500 Mg + Vit D Tb), 1 EACH PO, ( Reported) Discontinued Medications Cholestyramine (Cholestyramine Resin), 5 GM ORAL DAILY, (Reported) Discontinued Reason: Medication dose changed Lactulose (Lactulose*), 15 GM ORAL Q8HR Discontinued Reason: Medication dose changed Patient History History Provided By: Patient, Medical Record, PMD Healthcare decision maker Resuscitation status Full Code Advanced Directive on File Past Medical/Surgical History Past Medical/Surgical History: (1) UTI (urinary tract infection) (2) Sepsis (3) Anasarca (4) Ascites (5) Acute on chronic alcoholic liver disease (6) Abdominal pain (7) Liver cirrhosis (8) Acute metabolic encephalopathy Review of Systems Review of Symptoms General ROS: no weight loss or fever Psychological ROS: no depression or mood changes, no memory loss Ophthalmic ROS: no visual changes or eye irritation ENT ROS: no nasal congestion, hearing loss, dizziness Allergy and Immunology ROS: no allergic symptoms or urticaria Hematological and Lymphatic ROS: no swollen glands, unusual bleeding or bruising Endocrine ROS: no polyuria, polydipsia, weight changes, temperature intolerance Respiratory ROS: no cough, shortness of breath, or wheezing Cardiovascular ROS: no chest pain or dyspnea on exertion Gastrointestinal ROS: abdominal pain, no bright red blood in stool. Musculoskeletal ROS: no myalgias or arthralgias Neurological ROS: no TIA or stroke symptoms Dermatological ROS: no new or changing skin lesions, rashes or pruritis Physical Exam Physical Exam General appearance: alert, cooperative, no distress, appears stated age Head: Normocephalic, without obvious abnormality, atraumatic Eyes: conjunctivae/corneas clear. PERRL, EOM's intact. Fundi benign jaundice Throat: Lips, mucosa, and tongue normal. Teeth and gums normal Neck: supple, symmetrical, trachea midline, no adenopathy, thyroid: not enlarged, symmetric, no tenderness/mass/nodules, no carotid bruit and no JVD Lungs: clear to auscultation bilaterally Heart: regular rate and rhythm, S1, S2 normal, no murmur, click, rub or gallop Abdomen: soft, non-tender. distended fluid filled Bowel sounds normal. No masses, no organomegaly Extremities: extremities normal, atraumatic, no cyanosis or edema Pulses: 2+ and symmetric Skin: Skin color, texture, turgor normal. No rashes or lesions Neurologic: Grossly normal Last 24 Hour Vital Signs Date Time Temp Pulse Resp B/P (MAP) Pulse Ox O2 Delivery O2 Flow Rate FiO2 04/29/19 08:00 98.3 90 18 120/69 (86) 96 04/29/19 04:00 98.1 92 18 116/66 (83) 95 04/29/19 02:35 Room Air 04/29/19 01:00 98.9 96 18 113/67 95 Room Air 04/28/19 23:45 99.1 96 18 110/56 94 Room Air 04/28/19 22:45 98.9 93 18 108/56 94 Room Air 04/28/19 22:15 101.2 04/28/19 22:12 101.2 04/28/19 21:45 95 22 Room Air 04/28/19 21:45 101.2 97 22 104/86 97 Room Air 04/28/19 20:38 97.9 95 22 119/63 (81) 97 Room Air Intake and Output 04/28/19 04/29/19 19:00 07:00 Intake Total 30 ml Balance 30 ml Intake Oral 30 ml # Voids 2 # Bowel Movements 2 Laboratory Tests Test 04/28/19 21:40 04/28/19 22:14 04/28/19 23:20 04/29/19 09:45 White Blood Count 11.9 K/UL (4.8-10.8) H 11.6 K/UL (4.8-10.8) H Red Blood Count 3.53 M/UL (4.20-5.40) L 3.23 M/UL (4.20-5.40) L Hemoglobin 9.0 G/DL (12.0-16.0) L 8.3 G/DL (12.0-16.0) L Hematocrit 29.4 % (37.0-47.0) L 27.3 % (37.0-47.0) L Mean Corpuscular Volume 83 FL (80-99) 85 FL (80-99) Mean Corpuscular Hemoglobin 25.6 PG (27.0-31.0) L 25.7 PG (27.0-31.0) L Mean Corpuscular Hemoglobin Concent 30.7 G/DL (32.0-36.0) L 30.4 G/DL (32.0-36.0) L Red Cell Distribution Width 20.8 % (11.6-14.8) H 20.8 % (11.6-14.8) H Platelet Count 55 K/UL (150-450) L 50 K/UL (150-450) L Mean Platelet Volume 6.2 FL (6.5-10.1) L 7.5 FL (6.5-10.1) Neutrophils (%) (Auto) % (45.0-75.0) % (45.0-75.0) Lymphocytes (%) (Auto) % (20.0-45.0) % (20.0-45.0) Monocytes (%) (Auto) % (1.0-10.0) % (1.0-10.0) Eosinophils (%) (Auto) % (0.0-3.0) % (0.0-3.0) Basophils (%) (Auto) % (0.0-2.0) % (0.0-2.0) Differential Total Cells Counted 100 100 Neutrophils % (Manual) 88 % (45-75) H 90 % (45-75) H Lymphocytes % (Manual) 7 % (20-45) L 7 % (20-45) L Monocytes % (Manual) 4 % (1-10) 2 % (1-10) Eosinophils % (Manual) 0 % (0-3) 1 % (0-3) Basophils % (Manual) 1 % (0-2) 0 % (0-2) Band Neutrophils 0 % (0-8) 0 % (0-8) Platelet Estimate Decreased L Decreased L Platelet Morphology Normal Normal Hypochromasia 1+ 1+ Anisocytosis 1+ 2+ Prothrombin Time 15.5 SEC (9.30-11.50) H Prothromb Time International Ratio 1.5 (0.9-1.1) H Activated Partial Thromboplast Time 31 SEC (23-33) Sodium Level 132 MMOL/L (136-145) L Potassium Level 5.3 MMOL/L (3.5-5.1) H Chloride Level 106 MMOL/L (98-107) Carbon Dioxide Level 16 MMOL/L (21-32) L Anion Gap 10 mmol/L (5-15) Blood Urea Nitrogen 20 mg/dL (7-18) H Creatinine 1.3 MG/DL (0.55-1.30) Estimat Glomerular Filtration Rate 42.2 mL/min (>60) Glucose Level 90 MG/DL (74-106) Lactic Acid Level 2.80 mmol/L (0.4-2.0) H 2.50 mmol/L (0.66-2.22) H Calcium Level 8.6 MG/DL (8.5-10.1) Total Bilirubin 5.0 MG/DL (0.2-1.0) H Direct Bilirubin 2.7 MG/DL (0.0-0.3) H Aspartate Amino Transf (AST/SGOT) 38 U/L (15-37) H Alanine Aminotransferase (ALT/SGPT) 25 U/L (12-78) Alkaline Phosphatase 300 U/L (46-116) H Total Protein 6.9 G/DL (6.4-8.2) Albumin 1.6 G/DL (3.4-5.0) L Globulin 5.3 g/dL Albumin/Globulin Ratio 0.3 (1.0-2.7) L Lipase 62 U/L (73-393) L Urine Color Brown Urine Appearance Clear Urine pH 5 (4.5-8.0) Urine Specific [place] 1.015 (1.005-1.035) Urine Protein 1+ (NEGATIVE) H Urine Glucose (UA) Negative (NEGATIVE) Urine Ketones 1+ (NEGATIVE) H Urine Blood 2+ (NEGATIVE) H Urine Nitrite Negative (NEGATIVE) Urine Bilirubin 1+ (NEGATIVE) H Urine Ictotest Positive (NEGATIVE) Urine Urobilinogen 1 MG/DL (0.0-1.0) H Urine Leukocyte Esterase 2+ (NEGATIVE) H Urine RBC 10-15 /HPF (0 - 2) H Urine WBC 5-10 /HPF (0 - 2) H Urine Squamous Epithelial Cells Few /LPF (NONE/OCC) Urine Bacteria Moderate /HPF (NONE) H Urine Yeast Moderate /HPF (NONE) H Microbiology Date/Time Source Procedure Growth Status 04/28/19 22:14 Urine,Clean Catch Urine Culture - Preliminary NO GROWTH Resulted Height (Feet): 5 Height (Inches): 4.00 Weight (Pounds): 210 Medications Current Medications Medications (Trade) Dose Ordered Sig/Almaz Route PRN Reason Start Time Stop Time Status Last Admin Dose Admin Acetaminophen/ Hydrocodone Bitart ([place] 5/325) 1 tab Q6H PRN ORAL Moderate Pain (Pain Scale 4-6) 04/29/19 05:00 05/06/19 04:59 Cholestyramine Resin (Questran) 4 gm DAILY ORAL 04/29/19 09:00 05/29/19 08:59 04/29/19 08:26 Furosemide (Lasix) 40 mg DAILY ORAL 04/29/19 09:00 05/29/19 08:59 04/29/19 08:26 Lactulose (Cephulac) 15 gm THREE TIMES A DAY ORAL 04/29/19 09:00 05/29/19 08:59 04/29/19 08:25 Magnesium Oxide (Mag-Ox 400mg) 400 mg BID ORAL 04/29/19 09:00 05/29/19 08:59 04/29/19 08:26 Morphine Sulfate (Morphine Sulfate) 2 mg Q6H PRN IVP Severe Pain (Pain Scale 7-10) 04/29/19 05:00 05/06/19 04:59 Ondansetron HCl (Zofran) 4 mg Q4H PRN IVP Nausea & Vomiting 04/29/19 05:00 05/29/19 04:59 Pantoprazole (Protonix) 40 mg DAILY ORAL 04/29/19 09:00 05/29/19 08:59 04/29/19 08:26 Rifaximin (Xifaxan) 550 mg TWICE A DAY ORAL 04/29/19 09:00 05/06/19 08:59 04/29/19 08:26 Spironolactone (Aldactone) 50 mg DAILY ORAL 04/29/19 09:00 05/29/19 08:59 04/29/19 08:25 Assessment/Plan Problem List: (1) Abdominal pain Assessment & Plan: 58F abdominal pain, liver cirrhosis, decompensated liver dysfunction, leukocytosis, lactic acidosis, who is ill appearing CT noted. prior CT and US noted exam with distended fluid filled abdomen which is soft and only discomfort on exam unfortunately no surgical intervention is warranted given her condition can consider transfer to liver center but this may not be possible continue with supportive care can consider paracentesis if worsening discomfort okay for diet cont Rx as written thank you will follow with recs. ICD Codes: R10.9 - Unspecified abdominal pain SNOMED: 11720682 Qualifiers: Qualified Codes: R10.84 - Generalized abdominal pain (2) Liver cirrhosis Assessment & Plan: Prior CT with Findings: There is a moderate to severe ascites. Spleen is enlarged. There is a wedge-shaped defect within the spleen noted. This was seen to some extent previously and may be an infarct. There is extensive nodularity of the liver. 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 Gallstones are present. Bowel gas pattern is nonobstructive. Anasarca noted. The lung bases are essentially clear. Cardiomegaly is present. IMPRESSION: Severe chronic liver disease/cirrhosis. Stigmata of portal hypertension including ascites and splenomegaly, portosystemic varices. Wedge-shaped low-attenuation focus in the spleen, nonspecific. This could be a small infarct. This was present previously also. Cholelithiasis. Anasarca. liver center for consideration of transplant but unlikely ICD Codes: K74.60 - Unspecified cirrhosis of liver SNOMED: 53610645 Qualifiers: Qualified Codes: K70.31 - Alcoholic cirrhosis of liver with ascites (3) Acute on chronic alcoholic liver disease ICD Codes: K70.9 - Alcoholic liver disease, unspecified SNOMED: 925896647 (4) Ascites ICD Codes: R18.8 - Other ascites SNOMED: 973262287 (5) Anasarca ICD Codes: R60.1 - Generalized edema SNOMED: 395526001, [id number] Efrain Whitaker Apr 29, 2019 13:58
--- NOTE | 2019-04-29 14:09 | Diagnostic Imaging Report ---
Indications: Ascites Procedure: Informed consent obtained. Ultrasound used to localize optimal puncture site. Sterile prepping and draping over the optimum site. Local anesthesia with 1% lidocaine. Under real-time ultrasound guidance, puncture of the peritoneal space performed using paracentesis needle. Digital image was saved and archived. Stylet removed. Catheter placed to vacuum bottle suction. Fluid was aspirated. Patient tolerated procedure well, without immediate complication. Findings: Followup sonography demonstrates complete resolution of peritoneal fluid Impression: Successful ultrasound-guided paracentesis, yielding 3.1 liters of fluid
--- NOTE | 2019-04-29 14:44 | NUR ---
NURSE NOTES:WOUND CARE NOTES:Pt presented on admission with moisture intertrigo abd folds ,bilat groin folds which pt stated is recurrent. MASD noted to clefts of buttocks with skin erosions perirectally. Affected area is erythematous with Multiple satellite lesions noted. Pt denied itching but stated occasionally clarke. No other skin concerns noted. Tx.Plan:Apply Triad Paste to abd folds. Bilat groin area and perirectally with each perineal care or BID. Assist as needed with repositioning at least every 2hours or as tolerated. Off-load heels with pillow.
--- NOTE | 2019-04-29 15:03 | NUR ---
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
[2019-04-29 16:00] VITALS: BP 130/69
--- NOTE | 2019-04-29 16:31 | Diagnostic Imaging Report ---
Indication: Abdominal pain Technique: Grayscale and duplex Doppler imaging of the abdomen performed. Comparison: None Findings: There is nodularity of the liver. Moderate ascites demonstrated. Doppler interrogation of the main portal vein shows patency with pulsatile flow. There is no biliary ductal dilatation identified. Gallbladder is notable for stone and a negative sonographic Dodge sign per technologist. Some wall thickening of the gallbladder is present. Spleen is enlarged measuring 17 cm. Pancreas and aorta are poorly seen. Both kidneys appear unremarkable. Left kidney is borderline small. There is no hydronephrosis. IMPRESSION: Chronic liver disease/cirrhosis with signs of portal hypertension including ascites and splenomegaly.
--- NOTE | 2019-04-29 17:21 | History & Physical ---
History and Physical History & Physicial Goldy Amador MD Apr 29, 2019 17:21
[2019-04-29 18:13] VITALS: BP 121/50
[2019-04-29] MEDS: Furosemide 40mg tab ORAL SCH (18:18)
--- NOTE | 2019-04-29 18:30 | NUR ---
NURSE NOTES: Paracentesis site to abdomen,dressing dry,no bleeding or drainage noted.no complaint of pain.Bed alarm on,call light within reach.
--- NOTE | 2019-04-29 18:30 | History and Physical Report ---
DATE OF ADMISSION: 04/28/2019 CHIEF COMPLAINT: Abdominal distention. HISTORY OF PRESENT ILLNESS: The patient is a 58-year-old female with past medical history significant for liver cirrhosis, diabetes type 2, hypertension, who has presented to the hospital from [facility] after she was noted to have increased abdominal girdle and leg edema. The patient has history of liver cirrhosis and required abdominal paracenteses due to the ascites with history of portal hypertension. Shortly after initial in the evaluation emergency, the patient was admitted to the hospital with decompensated liver cirrhosis with increased abdominal ascites. PAST MEDICAL HISTORY AND PAST SURGICAL HISTORY: As above history of hypertension, diabetes type 2, alcoholic liver cirrhosis with thrombocytopenia, history of hepatic encephalopathy as well as ascites and portal hypertension. MEDICATIONS: At home, please refer to medication reconciliation. ALLERGIES: No known drug allergies. SOCIAL HISTORY: No smoking, alcohol, or drugs at this time. However, history of alcohol abuse in the past. FAMILY HISTORY: Noncontributory. REVIEW OF SYSTEMS: Mostly as above denies any dysuria, frequency, or hematuria. Denies any hemoptysis or hematochezia. The patient complained of blurry vision, abdominal distention. Denies any loss of consciousness. Denies any fall or head trauma, complained about pedal edema. PHYSICAL EXAMINATION: VITAL SIGNS: On admission, temperature 97.9, pulse of 95, respirations 22, blood pressure 119/63. GENERAL: The patient is awake, responsive, no acute distress. HEAD AND NECK: Pupils are reactive to light. Extraocular movements intact. NECK: Supple. No JVD LUNGS: Good air entry. No wheezing or rales. Decreased air in the bases. HEART: S1 and S2. Distant heart sounds. No gallops. ABDOMEN: Soft and distended, fluid shift. No rebound tenderness. EXTREMITIES: No cyanosis, clubbing, +2 edema bilateral lower extremities NEUROLOGIC: Cranial nerves II through XII grossly intact. Moving all the extremities. Gait was not assessed due to the patient's status. LABORATORY AND DIAGNOSTIC DATA: Laboratory on admission from the ER, WBC of 11, hemoglobin of 9.0, hematocrit 29, and platelets is 55. Sodium 132, potassium 5.3, chloride 106, bicarb 16, BUN 20, creatinine 1.3. Lactic acid is 2.8 and repeat was 2.5. AST of 38, AST of 25, and alkaline phosphate 300. Lipase is 62. PT of 15, INR 1.1, and PTT of 31. Urinalysis +1 protein, +2 blood, +1 ketone, +1 urobilinogen, +2 leukocyte esterase, 10 to 15 rbc's, 5 to 10 wbc's, moderate bacteria, moderate yeast. Abdominal ultrasound noted to have chronic liver disease with cirrhosis, portal hypertension, ascites and splenomegaly. ASSESSMENT: 1. Severe abdominal distention, most likely secondary to ascites. 2. Liver cirrhosis with portal hypertension with hepatic encephalopathy. 3. Hypertension. 4. Diabetes type 2. 5. Dyslipidemia. 6. 7. Thrombocytopenia. PLAN: Admit the patient to medical floor. We follow up with Dr. Khan from Pulmonary Critical Care and Dr. Whitaker from General surgery. We will consider to do abdominal paracentesis. Continue snf medication, Lasix. Code status is Full Code. DVT prophylaxis, SCD. Goldy Amador M.D. DR: Rhina JOB#: [id number] CC:
[2019-04-29 20:00] VITALS: BP 103/73
--- NOTE | 2019-04-29 20:01 | NUR ---
HAND-OFF: Report given to Yoana LARSEN.
--- NOTE | 2019-04-29 20:03 | NUR ---
NURSE NOTES: Pt AAO x 3, on room air. IV R FA 20g intact and patent. Noted redness on buttock and rectal area. Bed locked, lowest position, alarm on, call light within reach. Will continue to monitor.
[2019-04-30] VITALS: BP 101/51
[2019-04-30 04:00] VITALS: BP 126/70
[2019-04-30 07:07] LABS: INR 1.6 (0.9-1.1)
[2019-04-30 07:28] LABS: HEMATOCRIT 25.7 % (37.0-47.0); HEMOGLOBIN 7.8 G/DL (12.0-16.0); MEAN CORPUSCULAR VOLUME 84 FL (80-99); PLATELET COUNT 52 K/UL (150-450); RED BLOOD COUNT 3.05 M/UL (4.20-5.40); RED CELL DISTRIBUTION WIDTH 20.3 % (11.6-14.8); WHITE BLOOD COUNT 4.2 K/UL (4.8-10.8)
[2019-04-30 07:35] LABS: ALANINE AMINOTRANSFERASE 18 U/L (12-78); ALBUMIN 1.4 G/DL (3.4-5.0); ALBUMIN/GLOBULIN RATIO 0.3 (1.0-2.7); ALKALINE PHOSPHATASE 249 U/L (46-116); ANION GAP 9 mmol/L (5-15); ASPARTATE AMINO TRANSFERASE 28 U/L (15-37); BILIRUBIN,TOTAL 4.1 MG/DL (0.2-1.0); BLOOD UREA NITROGEN 26 mg/dL (7-18); CALCIUM 8.4 MG/DL (8.5-10.1); CARBON DIOXIDE 18 MMOL/L (21-32); CHLORIDE 107 MMOL/L (98-107); CREATININE 1.3 MG/DL (0.55-1.30); PHOSPHORUS 3.4 MG/DL (2.5-4.9); POTASSIUM 4.6 MMOL/L (3.5-5.1); SODIUM 134 MMOL/L (136-145)
[2019-04-30 07:36] LABS: BILIRUBIN,DIRECT 2.6 MG/DL (0.0-0.3)
--- NOTE | 2019-04-30 07:44 | NUR ---
HAND-OFF: Report given to CHAVA Ramos.
--- NOTE | 2019-04-30 07:45 | NUR ---
NURSE NOTES: Received pt in bed, sleeping. Room air. No s/s of distress/pain. IV on R FA 20g intact and patent, with saline lock. Side rails x2. Bed in the lowest, locked, and alarm on. Call light within reach. Will continue to monitor
--- NOTE | 2019-04-30 07:53 | Pulmonology Progress Note ---
Assessment/Plan Problems: (1) Acute metabolic encephalopathy (2) Anasarca (3) Abdominal pain (4) Ascites (5) ETOH abuse (6) Liver cirrhosis (7) Acute on chronic alcoholic liver disease Assessment/Plan s/p paracentesis , 3 liters removed feeling better symptomatic treatment Subjective ROS Limited/Unobtainable: No Constitutional: Reports: no symptoms HEENT: Repors: no symptoms Allergies: Coded Allergies: No Known Allergies (Unverified , 01/31/19) Objective Last 24 Hour Vital Signs Date Time Temp Pulse Resp B/P (MAP) Pulse Ox O2 Delivery O2 Flow Rate FiO2 04/30/19 04:00 97.9 80 18 126/70 (88) 97 04/30/19 00:00 98.4 81 18 101/51 (68) 97 04/29/19 21:00 Room Air 04/29/19 20:00 98.1 84 18 103/73 (83) 95 04/29/19 18:13 78 121/50 (73) 04/29/19 16:00 98.2 79 18 130/69 (89) 98 04/29/19 12:00 98.1 88 18 125/72 (89) 97 04/29/19 09:00 Room Air 04/29/19 08:00 98.3 90 18 120/69 (86) 96 Intake and Output 04/29/19 04/30/19 19:00 07:00 Intake Total 820 ml Balance 820 ml Intake Oral 820 ml # Voids 7 # Bowel Movements 1 General Appearance: WD/WN HEENT: normocephalic, atraumatic Respiratory/Chest: chest wall non-tender, lungs clear Breasts: no masses Cardiovascular: normal peripheral pulses Abdomen: normal bowel sounds, no organomegaly Genitourinary: normal external genitalia Extremities: no clubbing Microbiology Date/Time Source Procedure Growth Status 04/28/19 21:20 Blood Blood Culture - Preliminary NO GROWTH AFTER 24 HOURS Resulted 04/28/19 21:20 Blood Blood Culture - Preliminary NO GROWTH AFTER 24 HOURS Resulted 04/28/19 22:14 Urine,Clean Catch Urine Culture - Preliminary YEAST Resulted Laboratory Tests 04/29/19 09:45: White Blood Count 11.6H, Red Blood Count 3.23L, Hemoglobin 8.3L, Hematocrit 27.3L, Mean Corpuscular Volume 85, Mean Corpuscular Hemoglobin 25.7L, Mean Corpuscular Hemoglobin Concent 30.4L, Red Cell Distribution Width 20.8H, Platelet Count 50L, Mean Platelet Volume 7.5, Neutrophils (%) (Auto) , Lymphocytes (%) (Auto) , Monocytes (%) (Auto) , Eosinophils (%) (Auto) , Basophils (%) (Auto) , Differential Total Cells Counted 100, Neutrophils % ( Manual) 90H, Lymphocytes % (Manual) 7L, Monocytes % (Manual) 2, Eosinophils % ( Manual) 1, Basophils % (Manual) 0, Band Neutrophils 0, Platelet Estimate DecreasedL, Platelet Morphology Normal, Hypochromasia 1+, Anisocytosis 2+ 04/30/19 06:30: White Blood Count 4.2#L, Red Blood Count 3.05L, Hemoglobin 7.8L, Hematocrit 25.7L, Mean Corpuscular Volume 84, Mean Corpuscular Hemoglobin 25.6L, Mean Corpuscular Hemoglobin Concent 30.4L, Red Cell Distribution Width 20.3H, Platelet Count 52L, Mean Platelet Volume 7.8, Neutrophils (%) (Auto) , Lymphocytes (%) (Auto) , Monocytes (%) (Auto) , Eosinophils (%) (Auto) , Basophils (%) (Auto) , Neutrophils % (Manual) [Pending], Lymphocytes % (Manual) [Pending], Platelet Estimate [Pending], Platelet Morphology [Pending], Erythrocyte Sedimentation Rate [Pending], Prothrombin Time 16.5H, Prothromb Time International Ratio 1.6H, Activated Partial Thromboplast Time 39H, Sodium Level 134L, Potassium Level 4.6, Chloride Level 107, Carbon Dioxide Level 18L, Anion Gap 9, Blood Urea Nitrogen 26H, Creatinine 1.3, Estimat Glomerular Filtration Rate 42.2, Glucose Level 80, Calcium Level 8.4L, Phosphorus Level 3.4 , Magnesium Level 1.5L, Total Bilirubin 4.1H, Direct Bilirubin 2.6H, Aspartate Amino Transf (AST/SGOT) 28, Alanine Aminotransferase (ALT/SGPT) 18, Alkaline Phosphatase 249H, C-Reactive Protein, Quantitative 17.3H, Total Protein 6.4, Albumin 1.4L, Globulin 5.0, Albumin/Globulin Ratio 0.3L Current Medications Medications (Trade) Dose Ordered Sig/Almaz Route PRN Reason Start Time Stop Time Status Last Admin Dose Admin Acetaminophen/ Hydrocodone Bitart ([place] 5/325) 1 tab Q6H PRN ORAL Moderate Pain (Pain Scale 4-6) 04/29/19 05:00 05/06/19 04:59 Cholestyramine Resin (Questran) 4 gm DAILY ORAL 04/29/19 09:00 05/29/19 08:59 04/29/19 08:26 Furosemide (Lasix) 40 mg BID ORAL 04/29/19 18:00 05/29/19 08:59 04/29/19 18:18 Lactulose (Cephulac) 15 gm THREE TIMES A DAY ORAL 04/29/19 09:00 05/29/19 08:59 04/29/19 18:47 Magnesium Oxide (Mag-Ox 400mg) 400 mg BID ORAL 04/29/19 09:00 05/29/19 08:59 04/29/19 18:18 Morphine Sulfate (Morphine Sulfate) 2 mg Q6H PRN IVP Severe Pain (Pain Scale 7-10) 04/29/19 05:00 05/06/19 04:59 Ondansetron HCl (Zofran) 4 mg Q4H PRN IVP Nausea & Vomiting 04/29/19 05:00 05/29/19 04:59 Pantoprazole (Protonix) 40 mg DAILY ORAL 04/29/19 09:00 05/29/19 08:59 04/29/19 08:26 Rifaximin (Xifaxan) 550 mg TWICE A DAY ORAL 04/29/19 09:00 05/06/19 08:59 04/29/19 18:18 Spironolactone (Aldactone) 50 mg DAILY ORAL 04/29/19 09:00 05/29/19 08:59 04/29/19 08:25 Shireen Khan MD Apr 30, 2019 07:53
[2019-04-30] MEDS ORDERED: QUESTRAN POWDER4 GM ORAL (07:55)
[2019-04-30 08:00] VITALS: BP 109/82
[2019-04-30] MEDS: Spironolactone 50mg tab ORAL SCH (09:00)
[2019-04-30] MEDS: Furosemide 40mg tab ORAL SCH (09:22)
[2019-04-30] MEDS: Lactulose 20gm/30ml UDC ORAL SCH ×2 (09:22→12:14)
[2019-04-30] MEDS: Cholestyramine 4gm Pkt ORAL SCH (09:23)
[2019-04-30] MEDS: Magnesium Oxide 400mg tab ORAL SCH (09:23)
[2019-04-30 12:00] VITALS: BP 111/65
--- NOTE | 2019-04-30 13:05 | NUR ---
NURSE NOTES: Patient was discharged to [facility] via ambulance. Report was given to Andrew. ID and IV was removed. No s/s of infection on the removal site. Picture was taken on the redness of the buttocks area. All belongings are accounted for. Discharge instructions were given.
--- NOTE | 2019-04-30 16:56 | Surgery Progress Note ---
Surgery Progress Note Subjective Additional Comments s/p paracentesis US noted labs as below Objective Last 24 Hour Vital Signs Date Time Temp Pulse Resp B/P (MAP) Pulse Ox O2 Delivery O2 Flow Rate FiO2 04/30/19 12:00 97.8 83 20 111/65 (80) 98 04/30/19 09:00 Room Air 04/30/19 08:00 98.5 79 20 109/82 (91) 96 04/30/19 04:00 97.9 80 18 126/70 (88) 97 04/30/19 00:00 98.4 81 18 101/51 (68) 97 04/29/19 21:00 Room Air 04/29/19 20:00 98.1 84 18 103/73 (83) 95 04/29/19 18:13 78 121/50 (73) I&O Intake and Output 04/29/19 04/30/19 19:00 07:00 Intake Total 820 ml Balance 820 ml Intake Oral 820 ml # Voids 7 # Bowel Movements 1 Cardiovascular: RSR Respiratory: decreased breath sounds Abdomen: soft, distended, non-tender, present bowel sounds Extremities: no cyanosis Laboratory Tests Test 04/30/19 06:30 White Blood Count 4.2 K/UL (4.8-10.8) #L Red Blood Count 3.05 M/UL (4.20-5.40) L Hemoglobin 7.8 G/DL (12.0-16.0) L Hematocrit 25.7 % (37.0-47.0) L Mean Corpuscular Volume 84 FL (80-99) Mean Corpuscular Hemoglobin 25.6 PG (27.0-31.0) L Mean Corpuscular Hemoglobin Concent 30.4 G/DL (32.0-36.0) L Red Cell Distribution Width 20.3 % (11.6-14.8) H Platelet Count 52 K/UL (150-450) L Mean Platelet Volume 7.8 FL (6.5-10.1) Neutrophils (%) (Auto) % (45.0-75.0) Lymphocytes (%) (Auto) % (20.0-45.0) Monocytes (%) (Auto) % (1.0-10.0) Eosinophils (%) (Auto) % (0.0-3.0) Basophils (%) (Auto) % (0.0-2.0) Differential Total Cells Counted 100 Neutrophils % (Manual) 82 % (45-75) H Lymphocytes % (Manual) 14 % (20-45) L Monocytes % (Manual) 2 % (1-10) Eosinophils % (Manual) 2 % (0-3) Basophils % (Manual) 0 % (0-2) Band Neutrophils 0 % (0-8) Platelet Estimate Decreased L Platelet Morphology Normal Hypochromasia 1+ Anisocytosis 2+ Erythrocyte Sedimentation Rate 65 MM/HR (0-30) H Prothrombin Time 16.5 SEC (9.30-11.50) H Prothromb Time International Ratio 1.6 (0.9-1.1) H Activated Partial Thromboplast Time 39 SEC (23-33) H Sodium Level 134 MMOL/L (136-145) L Potassium Level 4.6 MMOL/L (3.5-5.1) Chloride Level 107 MMOL/L (98-107) Carbon Dioxide Level 18 MMOL/L (21-32) L Anion Gap 9 mmol/L (5-15) Blood Urea Nitrogen 26 mg/dL (7-18) H Creatinine 1.3 MG/DL (0.55-1.30) Estimat Glomerular Filtration Rate 42.2 mL/min (>60) Glucose Level 80 MG/DL (74-106) Calcium Level 8.4 MG/DL (8.5-10.1) L Phosphorus Level 3.4 MG/DL (2.5-4.9) Magnesium Level 1.5 MG/DL (1.8-2.4) L Total Bilirubin 4.1 MG/DL (0.2-1.0) H Direct Bilirubin 2.6 MG/DL (0.0-0.3) H Aspartate Amino Transf (AST/SGOT) 28 U/L (15-37) Alanine Aminotransferase (ALT/SGPT) 18 U/L (12-78) Alkaline Phosphatase 249 U/L (46-116) H C-Reactive Protein, Quantitative 17.3 mg/dL (0.00-0.90) H Total Protein 6.4 G/DL (6.4-8.2) Albumin 1.4 G/DL (3.4-5.0) L Globulin 5.0 g/dL Albumin/Globulin Ratio 0.3 (1.0-2.7) L Plan Problems: (1) Abdominal pain Assessment & Plan: 58F abdominal pain, liver cirrhosis, decompensated liver dysfunction, leukocytosis, lactic acidosis, who is ill appearing CT noted. prior CT and US noted exam with distended fluid filled abdomen which is soft and only discomfort on exam unfortunately no surgical intervention is warranted given her condition can consider transfer to liver center but this may not be possible continue with supportive care s/p paracentesis with symptomatic improvement okay for diet cont Rx as written thank you will follow with recs. (2) Liver cirrhosis Assessment & Plan: Prior CT with Findings: There is a moderate to severe ascites. Spleen is enlarged. There is a wedge-shaped defect within the spleen noted. This was seen to some extent previously and may be an infarct. There is extensive nodularity of the liver. 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 Gallstones are present. Bowel gas pattern is nonobstructive. Anasarca noted. The lung bases are essentially clear. Cardiomegaly is present. IMPRESSION: Severe chronic liver disease/cirrhosis. Stigmata of portal hypertension including ascites and splenomegaly, portosystemic varices. Wedge-shaped low-attenuation focus in the spleen, nonspecific. This could be a small infarct. This was present previously also. Cholelithiasis. Anasarca. liver center for consideration of transplant but unlikely US with There is nodularity of the liver. Moderate ascites demonstrated. Doppler interrogation of the main portal vein shows patency with pulsatile flow. There is no biliary ductal dilatation identified. Gallbladder is notable for stone and a negative sonographic Dodge sign per technologist. Some wall thickening of the gallbladder is present. Spleen is enlarged measuring 17 cm. Pancreas and aorta are poorly seen. Both kidneys appear unremarkable. Left kidney is borderline small. There is no hydronephrosis. IMPRESSION: Chronic liver disease/cirrhosis with signs of portal hypertension including ascites and splenomegaly. (3) Acute on chronic alcoholic liver disease (4) Ascites (5) Anasarca Additional Comments symptomatic treatment okay to d/c from surgical standpoint time of note does not reflect when patient seen Efrain Whitaker Apr 30, 2019 16:56
--- NOTE | 2019-04-30 20:54 | Discharge Summary ---
Discharge Summary Discharge Summary _ DATE OF ADMISSION: 04/28/2019 DATE OF DISCHARGE: 04/30/2019 DISCHARGED BY: Dr. Amador REASON FOR ADMISSION: 58 years old female with past medical history of hypertension, diabetes mellitus type 2, alcoholic liver cirrhosis with thrombocytopenia, history of hepatic encephalopathy, ascites, portal hypertension, presented from the retirement facility due to increased abdominal girdle and leg edema. Shortly after initial evaluation she was admitted to the hospital with decompensated liver cirrhosis and ascites. CONSULTANTS: pulmonary/critical care Dr. Khan surgery Dr. Whitaker [facility] COURSE: Patient admitted to medical surgical floor. Patient undergone on 04/29 ultrasound-guided paracentesis , yielding3.1 L of ascitic fluid. Blood cultures were negative. Urine culture revealed yeast. Abdominal ultrasound demonstrated chronic liver disease/cirrhosis with signs of portal hypertension, including ascites and splenomegaly. No hydronephrosis. DVT prophylaxis with SCD provided. Patient continued on Lasix and Aldactone. Rifaximin and lactulose continued. Supportive care provided. Platelet count was closely monitored and remained at baseline for this patient. Patient clinically stabilized and was ready for transfer back to retirement facility for continuation of care. FINAL DIAGNOSES: Acute metabolic encephalopathy Acute on chronic alcoholic liver disease Ascites, status post paracentesis Liver cirrhosis with portal hypertension and hepatic encephalopathy Hypertension Diabetes mellitus type 2 Dyslipidemia Thrombocytopenia DISCHARGE MEDICATIONS: See Medication Reconciliation list. DISCHARGE INSTRUCTIONS: Patient was discharged to the retirement facility. Follow up with medical doctor at the facility. I have been assigned to dictate discharge summary for this account. I was not involved in the patient's management. Corinna Guzman NP Apr 30, 2019 20:54
== END 2019-04-30 13:23 | DRG 432 ==
LOC: EDBD 20:31 → EDSEX 20:31 → EMR 21:22 → EDBEDREQ 22:38 → 4E 22:51 → EDBEDREQSVC 23:05 → EDBEDREQ 04-29 00:21
PROC: 0W9G3ZZ Drainage of Peritoneal Cavity, Percutaneous Approach (ICD-10-PCS; principal; 2019-04-29)
DX: K70.31 Alcoholic cirrhosis of liver with ascites (principal); G93.41 Metabolic encephalopathy; K76.6 Portal hypertension; E11.9 Type 2 diabetes mellitus without complications; E78.5 Hyperlipidemia, unspecified; D69.6 Thrombocytopenia, unspecified; K70.40 Alcoholic hepatic failure without coma; K80.20 Calculus of gallbladder without cholecystitis without obstruction
CPT/HCPCS: 36415; 76700; 76942; 80053; 81003; 82248; 82962; 83605; 83690; 83735; 84100; 85007; 85025; 85610; 85651; 85730; 86140; 87040; 87081; 87086; 87181; 96361; 96365; 96375; 99285; J2405

== ENCOUNTER 2019-05-03 11:19 | Inpatient (IN) | payer MEDICARE, OTHER ==
[~2019-05-03] VITALS: Ht 160 cm; Wt 91.7 kg
[~2019-05-03 11:19] MED LIST changes: +LACTULOSE10 GM/154 PO; +MAGNESIUM OXID400 M1 ORAL; +QUESTRAN POWDER4 GM ORAL
--- NOTE | 2019-05-03 11:26 | NUR ---
ED Nurse Note: SKIN ASSESSMENT: BLANCHABLE REDNESS NOTED TO COCCYX AREA.
--- NOTE | 2019-05-03 11:26 | NUR ---
ED Nurse Note: PT BROUGHT IN BY AMBULANCE FROM [facility]. AOX4. PT C/O EXACERBATION OF RIGHT SIDED ABDOMINAL PAIN RADIATING TO RIGHT LOWER BACK X THIS AM AROUND 0830. PT DENIES NAUSEA, VOMITING, OR DIARRHEA. PT HOT TO TOUCH. RECTAL TEMP TAKEN: 103.1F. PT ALSO TACHYCARDIC - HR: 103. DR RENEE NOTIFIED.
[2019-05-03 11:34] VITALS: BP 105/78
[2019-05-03 11:55] LABS: HEMATOCRIT 28.9 % (37.0-47.0); HEMOGLOBIN 8.9 G/DL (12.0-16.0); MEAN CORPUSCULAR VOLUME 81 FL (80-99); PLATELET COUNT 40 K/UL (150-450); RED BLOOD COUNT 3.55 M/UL (4.20-5.40); WHITE BLOOD COUNT 14.3 K/UL (4.8-10.8)
[2019-05-03] MEDS ORDERED: Acetaminophen 500mg (ES) tab ORAL ONE (12:00)
[2019-05-03 12:06] LABS: ANION GAP 12 mmol/L (5-15); BLOOD UREA NITROGEN 18 mg/dL (7-18); CALCIUM 8.2 MG/DL (8.5-10.1); CARBON DIOXIDE 19 MMOL/L (21-32); CHLORIDE 106 MMOL/L (98-107); CREATININE 1.3 MG/DL (0.55-1.30); SODIUM 137 MMOL/L (136-145)
[2019-05-03 12:16] LABS: ALANINE AMINOTRANSFERASE 20 U/L (12-78); ALBUMIN 1.5 G/DL (3.4-5.0); ALBUMIN/GLOBULIN RATIO 0.3 (1.0-2.7); ALKALINE PHOSPHATASE 371 U/L (46-116); ASPARTATE AMINO TRANSFERASE 42 U/L (15-37); BILIRUBIN,DIRECT 2.2 MG/DL (0.0-0.3); BILIRUBIN,TOTAL 3.8 MG/DL (0.2-1.0)
--- NOTE | 2019-05-03 12:20 | Emergency Room Report ---
History of Present Illness General Chief Complaint: Abdominal Pain Source: Patient, Medical Record Present Illness HPI Patient presents with complaints of some confusion Fevers Patient had recent hospitalization and now has continued increased nausea vomiting as well Patient appears to have liver disease with cirrhosis Patient had ascites and appears to have had paracentesis Patient herself complains of diffuse abdominal discomfort denies any diarrhea denies any chest pain She does feel weaker than usual Allergies: Coded Allergies: No Known Allergies (Unverified , 01/31/19) Patient History Past Medical History: see triage record Reviewed Nursing Documentation: PMH: Agreed; PSxH: Agreed Nursing Documentation-PMH Past Medical History: No History, Except For Hx Cardiac Problems: Yes Hx Hypertension: Yes Hx Diabetes: Yes Hx Cancer: No Hx Gastrointestinal Problems: Yes - Alcoholic liver cirrhosis;Thrombocytopenia Hx Neurological Problems: Yes - Hepatic encephalopathy Review of Systems All Other Systems: negative except mentioned in HPI Physical Exam Vital Signs Date Time Temp Pulse Resp B/P (MAP) Pulse Ox O2 Delivery O2 Flow Rate FiO2 05/03/19 11:12 98.2 104 19 119/62 (81) 97 Nasal Cannula 2.0 Sp02 EP Interpretation: reviewed, normal General Appearance: mild distress Head: normocephalic, atraumatic Eyes: bilateral eye PERRL, bilateral eye EOMI ENT: dry mucus membranes Neck: supple Respiratory: no respiratory distress, no retraction, crackles Cardiovascular #1: regular rate, rhythm Gastrointestinal: other - Ascites noted, some right lower abdominal erythema likely previous paracentesis Genitourinary: no CVA tenderness Musculoskeletal: other - Both upper extremities equally Neurologic: responsive - Week, responds to physical and verbal stimuli appears mildly confused, Skin: jaundice - Mild erythema right lower abdomen Lymphatic: no adenopathy Procedures Critical Care Time Critical Care Time 50 minutes for multiple re-evaluations presentations concerning for significant infectious process concern for septic shock and possible , not including any procedural time, Medical Decision Making Diagnostic Impression: Primary Impression: Liver cirrhosis Additional Impressions: Sepsis Acute on chronic alcoholic liver disease Bacteremia due to Gram-negative bacteria ER Course Multiple differentials including but not limited to SBP, hepatic encephalopathy metabolic encephalopathy, sepsis considered Patient's lactic acid is elevated white blood cell count also elevated Given the patient's presentation and recent procedures SBP that are entirely patient also did have positive blood culture on previous hospitalization broad- spectrum antibiotics initiated patient requires further inpatient care Labs Test 05/03/19 11:30 05/03/19 12:30 05/03/19 13:00 05/04/19 05:43 White Blood Count 14.3 K/UL (4.8-10.8) 6.8 K/UL (4.8-10.8) Red Blood Count 3.55 M/UL (4.20-5.40) 2.65 M/UL (4.20-5.40) Hemoglobin 8.9 G/DL (12.0-16.0) 6.8 G/DL (12.0-16.0) Hematocrit 28.9 % (37.0-47.0) 22.0 % (37.0-47.0) Mean Corpuscular Volume 81 FL (80-99) 83 FL (80-99) Mean Corpuscular Hemoglobin 25.1 PG (27.0-31.0) 25.7 PG (27.0-31.0) Mean Corpuscular Hemoglobin Concent 30.9 G/DL (32.0-36.0) 30.9 G/DL (32.0-36.0) Red Cell Distribution Width 20.0 % (11.6-14.8) 20.1 % (11.6-14.8) Platelet Count 40 K/UL (150-450) 23 K/UL (150-450) Mean Platelet Volume 5.7 FL (6.5-10.1) 9.3 FL (6.5-10.1) Neutrophils (%) (Auto) % (45.0-75.0) % (45.0-75.0) Lymphocytes (%) (Auto) % (20.0-45.0) % (20.0-45.0) Monocytes (%) (Auto) % (1.0-10.0) % (1.0-10.0) Eosinophils (%) (Auto) % (0.0-3.0) % (0.0-3.0) Basophils (%) (Auto) % (0.0-2.0) % (0.0-2.0) Differential Total Cells Counted 100 100 Neutrophils % (Manual) 90 % (45-75) 85 % (45-75) Lymphocytes % (Manual) 6 % (20-45) 9 % (20-45) Monocytes % (Manual) 4 % (1-10) 3 % (1-10) Eosinophils % (Manual) 0 % (0-3) 1 % (0-3) Basophils % (Manual) 0 % (0-2) 1 % (0-2) Band Neutrophils 0 % (0-8) 1 % (0-8) Platelet Estimate Decreased Decreased Platelet Morphology Normal Normal Red Blood Cell Morphology Hypochromasia 2+ 4+ Anisocytosis 2+ 2+ Sodium Level 137 MMOL/L (136-145) 137 MMOL/L (136-145) Potassium Level 4.0 MMOL/L (3.5-5.1) 3.7 MMOL/L (3.5-5.1) Chloride Level 106 MMOL/L (98-107) 108 MMOL/L (98-107) Carbon Dioxide Level 19 MMOL/L (21-32) 17 MMOL/L (21-32) Anion Gap 12 mmol/L (5-15) 12 mmol/L (5-15) Blood Urea Nitrogen 18 mg/dL (7-18) 19 mg/dL (7-18) Creatinine 1.3 MG/DL (0.55-1.30) 1.3 MG/DL (0.55-1.30) Estimat Glomerular Filtration Rate 42.2 mL/min (>60) 42.2 mL/min (>60) Glucose Level 97 MG/DL (74-106) 151 MG/DL (74-106) Lactic Acid Level 2.60 mmol/L (0.4-2.0) 2.50 mmol/L (0.66-2.22) Calcium Level 8.2 MG/DL (8.5-10.1) 7.4 MG/DL (8.5-10.1) Total Bilirubin 3.8 MG/DL (0.2-1.0) 2.8 MG/DL (0.2-1.0) Direct Bilirubin 2.2 MG/DL (0.0-0.3) 1.8 MG/DL (0.0-0.3) Aspartate Amino Transf (AST/SGOT) 42 U/L (15-37) 26 U/L (15-37) Alanine Aminotransferase (ALT/SGPT) 20 U/L (12-78) 15 U/L (12-78) Alkaline Phosphatase 371 U/L (46-116) 235 U/L (46-116) Total Protein 6.8 G/DL (6.4-8.2) 5.3 G/DL (6.4-8.2) Albumin 1.5 G/DL (3.4-5.0) 1.2 G/DL (3.4-5.0) Globulin 5.3 g/dL 4.1 g/dL Albumin/Globulin Ratio 0.3 (1.0-2.7) 0.3 (1.0-2.7) Lipase 54 U/L (73-393) 31 U/L (73-393) Ammonia 30 umol/L (11-32) Urine Color Yellow Urine Appearance Slightly cloudy Urine pH 5 (4.5-8.0) Urine Specific [place] 1.010 (1.005-1.035) Urine Protein Negative (NEGATIVE) Urine Glucose (UA) Negative (NEGATIVE) Urine Ketones Negative (NEGATIVE) Urine Blood Negative (NEGATIVE) Urine Nitrite Negative (NEGATIVE) Urine Bilirubin Negative (NEGATIVE) Urine Urobilinogen Normal MG/DL (0.0-1.0) Urine Leukocyte Esterase 3+ (NEGATIVE) Urine RBC 2-4 /HPF (0 - 2) Urine WBC 30-40 /HPF (0 - 2) Urine Squamous Epithelial Cells Many /LPF (NONE/OCC) Urine Bacteria Moderate /HPF (NONE) Urine Yeast Moderate /HPF (NONE) Activated Partial Thromboplast Time 45 SEC (23-33) Amylase Level 4 U/L (25-115) Test 05/05/19 05:17 05/05/19 10:31 05/06/19 05:45 White Blood Count 8.7 K/UL (4.8-10.8) 6.1 K/UL (4.8-10.8) Red Blood Count 3.37 M/UL (4.20-5.40) 3.64 M/UL (4.20-5.40) Hemoglobin 8.9 G/DL (12.0-16.0) 9.8 G/DL (12.0-16.0) Hematocrit 28.2 % (37.0-47.0) 31.8 % (37.0-47.0) Mean Corpuscular Volume 84 FL (80-99) 87 FL (80-99) Mean Corpuscular Hemoglobin 26.5 PG (27.0-31.0) 27.0 PG (27.0-31.0) Mean Corpuscular Hemoglobin Concent 31.6 G/DL (32.0-36.0) 30.9 G/DL (32.0-36.0) Red Cell Distribution Width 19.5 % (11.6-14.8) 22.4 % (11.6-14.8) Platelet Count 51 K/UL (150-450) 55 K/UL (150-450) Mean Platelet Volume 9.5 FL (6.5-10.1) 8.3 FL (6.5-10.1) Neutrophils (%) (Auto) % (45.0-75.0) % (45.0-75.0) Lymphocytes (%) (Auto) % (20.0-45.0) % (20.0-45.0) Monocytes (%) (Auto) % (1.0-10.0) % (1.0-10.0) Eosinophils (%) (Auto) % (0.0-3.0) % (0.0-3.0) Basophils (%) (Auto) % (0.0-2.0) % (0.0-2.0) Sodium Level 137 MMOL/L (136-145) 135 MMOL/L (136-145) Potassium Level 3.3 MMOL/L (3.5-5.1) 2.8 MMOL/L (3.5-5.1) Chloride Level 107 MMOL/L (98-107) 105 MMOL/L (98-107) Carbon Dioxide Level 19 MMOL/L (21-32) 19 MMOL/L (21-32) Anion Gap 11 mmol/L (5-15) 11 mmol/L (5-15) Blood Urea Nitrogen 21 mg/dL (7-18) 18 mg/dL (7-18) Creatinine 1.4 MG/DL (0.55-1.30) 1.3 MG/DL (0.55-1.30) Estimat Glomerular Filtration Rate 38.7 mL/min (>60) 42.2 mL/min (>60) Glucose Level 105 MG/DL (74-106) 90 MG/DL (74-106) Calcium Level 7.8 MG/DL (8.5-10.1) 7.5 MG/DL (8.5-10.1) Phosphorus Level 2.8 MG/DL (2.5-4.9) 3.2 MG/DL (2.5-4.9) Magnesium Level 1.4 MG/DL (1.8-2.4) 1.0 MG/DL (1.8-2.4) Total Bilirubin 3.5 MG/DL (0.2-1.0) 3.2 MG/DL (0.2-1.0) Direct Bilirubin 2.3 MG/DL (0.0-0.3) 1.7 MG/DL (0.0-0.3) Aspartate Amino Transf (AST/SGOT) 20 U/L (15-37) 24 U/L (15-37) Alanine Aminotransferase (ALT/SGPT) 14 U/L (12-78) 13 U/L (12-78) Alkaline Phosphatase 227 U/L (46-116) 211 U/L (46-116) Total Protein 5.8 G/DL (6.4-8.2) 5.6 G/DL (6.4-8.2) Albumin 1.2 G/DL (3.4-5.0) 1.1 G/DL (3.4-5.0) Globulin 4.6 g/dL 4.5 g/dL Albumin/Globulin Ratio 0.3 (1.0-2.7) 0.2 (1.0-2.7) Body Fluid Source Abdominal Body Fluid Volume 24 mL Body Fluid Appearance Hazy (Clear) Body Fluid RBC 1840 /CUMM Body Fluid Total Nucleated Cells 170 /CUMM Body Fluid Polynuclear WBCs (%) 49 % Body Fluid Mononuclear WBCs (%) 50 % Body Fluid Mesothelial Cells (%) 1 % Rhythm Strip Diag. Results EP Interpretation: yes Rate: 87 Rhythm: NSR, no PVC's, no ectopy Chest X-Ray Diagnostic Results Chest X-Ray Diagnostic Results : Chest X-Ray Ordered: Yes # of Views/Limited/Complete: 1 View Indication: Chest Pain EP Interpretation: Yes Interpretation: no consolidation, no effusion, no pneumothorax Impression: No acute disease Electronically Signed by: Yashira Paulino DO Last Vital Signs Date Time Temp Pulse Resp B/P (MAP) Pulse Ox O2 Delivery O2 Flow Rate FiO2 05/03/19 11:34 103 24 Room Air 05/03/19 11:34 103.1 105/78 100 05/03/19 11:12 2.0 Status: improved Disposition: ADMITTED INPATIENT Condition: Serious Yashira Paulino DO May 03, 2019 12:20
[2019-05-03] MEDS ORDERED: Piperacillin/Tazobactam 4.5 GM in NS 110 ML IVPB ONE (12:45)
[2019-05-03 12:57] VITALS: BP 122/65
[2019-05-03] MEDS ORDERED: Miralax 17gm pkt ORAL PRN (13:15)
[2019-05-03] MEDS ORDERED: Nitroglycerin Subl 0.4mg tab SL PRN (13:15)
[2019-05-03 13:29] LABS: APPEARANCE,URINE SLIGHTLY CLOUDY; BILIRUBIN, URINE NEGATIVE (NEGATIVE); GLUCOSE, URINE (UA) NEGATIVE (NEGATIVE); KETONES,URINE NEGATIVE (NEGATIVE); LEUKOCYTE ESTERASE ,URINE 3+ (NEGATIVE); NITRITE,URINE NEGATIVE (NEGATIVE); PH,URINE 5 (4.5-8.0); PROTEIN,URINE NEGATIVE (NEGATIVE); UROBILINOGEN,URINE NORMAL MG/DL (0.0-1.0)
[2019-05-03 13:31] LABS: COLOR,URINE YELLOW
--- NOTE | 2019-05-03 13:44 | NUR ---
ED Nurse Note: TELE UNIT CALLED FOR PT REPORT. REPORT GIVEN TO CHAVA LONDON. PT TAKEN UP TO TELE UNIT VIA GURNEY ON LAMP REPLACER WITH ALL BELONGINGS RUNNING IV ABX ACCOMPANIED BY PRIMARY RN AND EMT. VSS.
--- NOTE | 2019-05-03 14:36 | NUR ---
NURSE NOTES: Patient transferred from ER via gurney. Report received from CHAVA Rodriguez. Patient is alert and oriented. Side rails are up x3, bed is locked, in lowest position, and call light is within reach. Patient reports abdominal pain 7/10. Will give pain medication and will continue to monitor.
[2019-05-03] MEDS: D5 1/2NS 1,000 ML IV SCH (14:43)
[2019-05-03] MEDS: Morphine Sulfate 2mg/ml Inj(IV/IM USE ONLY) IVP PRN ×2 (14:47→20:36)
[2019-05-03 15:00] VITALS: BP 107/59
--- NOTE | 2019-05-03 15:03 | NUR ---
NURSE NOTES: Decreased platelets noted. Dr. Khan notified. New orders received.
--- NOTE | 2019-05-03 15:58 | NUR ---
NURSE NOTES: Medical record used to retrieve medical history. Patient is a poor historian.
[2019-05-03 16:00] VITALS: BP 121/66
--- NOTE | 2019-05-03 17:12 | History & Physical ---
History and Physical History & Physicial Dictated for Int Med-Dr Amador no. [id number] Jose Benjamin MD May 03, 2019 17:12
--- NOTE | 2019-05-03 17:30 | History and Physical Report ---
DATE OF ADMISSION: 05/03/2019 CHIEF COMPLAINT: The patient is a 58-year-old female with a history of alcoholic cirrhosis of the liver and ascites, who presents with a chief complaint of abdominal pain and fever. HISTORY OF PRESENT ILLNESS: The patient was admitted to [facility] from April 28, 2019 to April 30, 2019. Please see history and physical and discharge summary dictated at that time. The patient states she began to experience abdominal pain yesterday, May 02, 2019. Abdominal pain is diffuse. The patient also had subjective fevers and chills. The patient's family complained of increasing confusion. The patient presented to [facility] emergency room. The patient is admitted with abdominal pain, ascites to rule out spontaneous bacterial peritonitis. REVIEW OF SYSTEMS: CONSTITUTIONAL: The patient denies weight loss or weight gain. The patient complains of subjective fevers and chills as above. HEENT: The patient denies ear or throat pain. The patient denies headache. CARDIOVASCULAR: The patient denies palpitations or chest pain. CHEST: The patient denies wheeze or shortness of breath. ABDOMINAL: The patient complains of abdominal pain as above. The patient complains of some nausea with vomiting. The patient denies diarrhea or constipation. GENITOURINARY: The patient denies dysuria or increased frequency of urination. NEUROMUSCULAR: The patient denies seizures or generalized weakness. PAST MEDICAL HISTORY: Significant for: 1. Alcoholic cirrhosis of the liver. 2. Hypertension. 3. Diabetes type 2. 4. Thrombocytopenia. 5. Hepatic encephalopathy. 6. Ascites. 7. Hypercholesterolemia. 8. Portal hypertension. PAST SURGICAL HISTORY: Significant for section x1. CURRENT MEDICATIONS: 1. Cholestyramine 4 grams p.o. daily. 2. Lasix 40 mg p.o. daily. 3. Lactulose 15 g p.o. q.8 hours. 4. Prevacid 15 mg p.o. daily. 5. Magnesium oxide 400 mg p.o. twice daily. 6. Xifaxan 550 mg p.o. twice daily. 7. Spironolactone 50 mg p.o. daily. ALLERGIES: No known drug allergies. SOCIAL HISTORY: The patient is single and lives with her family. The patient denies tobacco use. The patient previously had heavy alcohol use. PHYSICAL EXAMINATION: VITAL SIGNS: Temperature 103.1, respirations 24, pulse 103, and blood pressure 105/78. GENERAL: The patient is a well-developed and well-nourished obese female, in moderate abdominal pain and distress. HEENT: Eyes, pupils are equal and responsive to light and accommodation. Extraocular movements are intact. No scleral icterus is noted. CHEST: Lungs are clear to auscultation bilaterally without wheezes or rales. CARDIOVASCULAR: Regular rhythm and rate. S1 and S2 are normal without murmurs, rubs, or gallops. ABDOMEN: Soft, diffusely tender with decreased bowel sounds. No evidence of hepatosplenomegaly. Currently, no rebound or guarding noted. There is no fluid wave present. NEUROLOGICAL: Cranial nerves II through XII are grossly intact without focal deficits. LABORATORY STUDIES: WBC 14.3, hemoglobin 8.9, hematocrit 28.9, and platelets 40,000. Sodium 137, potassium 4.0, chloride 106, CO2 19, BUN 18, creatinine 1.3, and glucose 97. Lactic acid 2.60. Alkaline phosphatase elevated at 371. AST elevated at 42. Total bilirubin elevated at 3.8. Direct bilirubin elevated 2.2. Urinalysis showed 3+ leukocyte esterase with 30 to 40 wbc's. ASSESSMENT: This is a 58-year-old female. 1. Abdominal pain. 2. Nausea with vomiting. 3. Fever. 4. Elevated liver function tests. 5. Urinary tract infection. 6. Hepatic encephalopathy. 7. Alcoholic cirrhosis of the liver. 8. Hypertension. 9. Diabetes type 2. 10. Thrombocytopenia. 11. Ascites. 12. Hypercholesterolemia. 13. Portal hypertension. TREATMENT: 1. Elevated liver function tests/hepatic encephalopathy/alcoholic cirrhosis of the liver. A Gastroenterology consultation has been obtained with Dr. Jon Torres. Continue Prevacid as above. The patient may require repeat paracentesis during this hospitalization. 2. Urinary tract infection. Urine culture is pending. The patient has been started empirically on intravenous Zosyn and metronidazole. 3. Hypertension. The patient is currently hypotensive. 4. Diabetes type 2. A NovoLog sliding scale has been instituted. 5. Thrombocytopenia. This is probably secondary to chronic liver disease. 6. Hepatic encephalopathy. Continue lactulose and Xifaxan as above. 7. Ascites as above. The patient may require paracentesis during this hospitalization. 8. Hypercholesterolemia. 9. Portal hypertension. Jose Benjamin M.D. DR: MARTIN JOB#: [id number] CC:
--- NOTE | 2019-05-03 19:28 | NUR ---
HAND-OFF: Report given to CHAVA Ambrosio.
--- NOTE | 2019-05-03 19:30 | NUR ---
NURSE NOTES: Received patient in bed. A&OX3. IV site patent and intact. Noted sacral crease and dermatitis on perineal area, picture taken, applied dressing. Bed in lowest position. Call light within reach. Will continue to monitor.
[2019-05-03 20:00] VITALS: BP 107/51
[2019-05-03] MEDS ORDERED: Heparin 5000 units/ml inj SUBQ SCH (21:00)
--- NOTE | 2019-05-03 22:29 | NUR ---
HAND-OFF: Report given to Hang LARSEN.
--- NOTE | 2019-05-03 22:30 | NUR ---
NURSE NOTES: pt report received from Hebert LARSENsealer sander. pt remains stable resting in bed. vital signs stable. monitoring and evaluation advisor showing no signs symptoms of distress. pt is satting well, no resp distress. bed armed, locked, low, bed rails up times 3 will continue plan of care.
[2019-05-04] VITALS (9 sets, daily range): BP systolic 97–156; BP diastolic 51–65
[2019-05-04] MEDS: D5 1/2NS 1,000 ML IV SCH ×3 (02:24→21:42)
--- NOTE | 2019-05-04 07:00 | NUR ---
HAND-OFF: Report given to Vicenta LARSEN TELE. pt remains in stable condition.
[2019-05-04 07:23] LABS: MEAN CORPUSCULAR VOLUME 83 FL (80-99); PLATELET COUNT 23 K/UL (150-450); RED BLOOD COUNT 2.65 M/UL (4.20-5.40); RED CELL DISTRIBUTION WIDTH 20.1 % (11.6-14.8); WHITE BLOOD COUNT 6.8 K/UL (4.8-10.8)
[2019-05-04 07:26] LABS: HEMOGLOBIN 6.8 G/DL (12.0-16.0)
--- NOTE | 2019-05-04 07:50 | NUR ---
Received call from L[facility] re: critical result hgb= 6.8. patients asymptomatic. Call out to Dr. Khan. awaiting call back. Will follow.
--- NOTE | 2019-05-04 07:52 | NUR ---
NURSE NOTES: Received patient from Lokesh Mauricio. Patient is awake in bed, answering questions appropriately. No complain or discomfort. Safety precautions in place. Will follow.
[2019-05-04 08:09] LABS: ALANINE AMINOTRANSFERASE 15 U/L (12-78); ALBUMIN 1.2 G/DL (3.4-5.0); ALBUMIN/GLOBULIN RATIO 0.3 (1.0-2.7); ALKALINE PHOSPHATASE 235 U/L (46-116); AMYLASE 4 U/L (25-115); ANION GAP 12 mmol/L (5-15); ASPARTATE AMINO TRANSFERASE 26 U/L (15-37); BILIRUBIN,TOTAL 2.8 MG/DL (0.2-1.0); BLOOD UREA NITROGEN 19 mg/dL (7-18); CALCIUM 7.4 MG/DL (8.5-10.1); CARBON DIOXIDE 17 MMOL/L (21-32); CHLORIDE 108 MMOL/L (98-107); CREATININE 1.3 MG/DL (0.55-1.30); POTASSIUM 3.7 MMOL/L (3.5-5.1); SODIUM 137 MMOL/L (136-145)
[2019-05-04 08:10] LABS: BILIRUBIN,DIRECT 1.8 MG/DL (0.0-0.3)
[2019-05-04] MEDS ORDERED: Pantoprazole Inj IVP SCH (09:00)
--- NOTE | 2019-05-04 09:15 | NUR ---
NURSE NOTES: Ordered received from . Transfuse 1 unit of PRBC. will follow
--- NOTE | 2019-05-04 10:06 | GI Initial Consult Note ---
History of Present Illness General Date patient seen: May 04, 2019 Time patient seen: 10:01 Reason for Hospitalization: Abdominal Pain Referring physician: TONI MARTINEZ Reason for Consultation: CIRRHOSIS Present Illness HPI Patient presents with complaints of some confusion Fevers Patient had recent hospitalization and now has continued increased nausea vomiting as well Patient appears to have liver disease with cirrhosis Patient had ascites and appears to have had paracentesis Patient herself complains of diffuse abdominal discomfort denies any diarrhea denies any chest pain She does feel weaker than usual GI consulted for abdominal pain. Patient seen, awake alert oriented no apparent distress with no active signs or symptoms of nausea vomiting. Patient was recent admission here at [facility], history of chronic liver disease status post paracentesis on April 29 with a 3.1 L of output. Patient presents with low hemoglobin at 6.8, total bilirubin 2.8. The patient had a recent EGD performed April 22, 2019 noted with no esophageal or gastric varices. It was noted that the patient had moderate to severe portal hypertensive gastropathy and a shallow gastric ulcer. Home Meds Active Scripts Cholestyramine (Cholestyramine Packet) 4 Gm Powd.pack, 4 GM ORAL DAILY for 30 Days, PACK Prov:Shireen Khan MD 04/30/19 Spironolactone (ALDACTONE) 50 Mg Tablet, 50 MG ORAL DAILY for 30 Days, TAB Prov:Shireen Khan MD 02/08/19 Reported Medications Lactulose (LACTULOSE) 10 Gm/15 Ml Solution, 15 GM PO EVERY 8 HOURS 04/29/19 Magnesium Oxide (MAGNESIUM OXIDE) 400 Mg Tablet, 400 MG ORAL BID, #30 TAB 0 Refills 04/28/19 Furosemide* (LASIX*) 40 Mg Tablet, 40 MG ORAL DAILY, TAB 04/28/19 Lansoprazole* (LANSOPRAZOLE*) 15 Mg Capsule.dr, 15 MG ORAL DAILY, CAP AC BREAKFAST 04/18/19 Rifaximin* (XIFAXAN*) 550 Mg Tablet, 550 MG ORAL TWICE A DAY for 30 Days, MG 0 Refills 03/11/19 Discontinued Reported Medications Cholestyramine (Cholestyramine Packet) 4 Gm Powd.pack, 4 GM ORAL DAILY, PACKET 04/29/19 Calcium Carbonate/Vitamin D3 (OYSTER SHELL 500 MG + VIT D TB) 1 Each Tablet, 1 EACH PO, TAB 04/18/19 Hydroxyzine Hcl (HYDROXYZINE HCL) 10 Mg Tablet, 10 MG PO TWICE A DAY for anxiety , TAB 04/18/19 Celecoxib* (CELEBREX*) 200 Mg Capsule, 200 MG ORAL TWICE A DAY, CAP 04/18/19 Gabapentin* (GABAPENTIN*) 300 Mg Capsule, 300 MG ORAL THREE TIMES A DAY, CAP 0 Refills 04/18/19 Omeprazole (OMEPRAZOLE) 20 Mg Tablet.dr, 20 MG ORAL BID, TAB 03/11/19 Metformin Hcl* (METFORMIN HCL*) 1,000 Mg Tablet, 1000 MG ORAL BID, TAB 03/11/19 Ferrous Sulfate* (FERROUS SULFATE*) 325 Mg Tablet, 325 MG ORAL DAILY, #30 TAB 0 Refills 03/11/19 Cholestyramine (CHOLESTYRAMINE RESIN) 5 Gm Powder, 5 GM ORAL DAILY, GM 03/11/19 Amlodipine Besylate* (AMLODIPINE BESYLATE*) 5 Mg Tablet, 5 MG ORAL DAILY, TAB 03/11/19 Atorvastatin (Lipitor) 80 Mg Tablet, 40 MG ORAL BEDTIME, #30 TAB 0 Refills 01/31/19 Losartan Potassium (LOSARTAN POTASSIUM) 100 Mg Tablet, 100 MG ORAL DAILY, TAB 01/31/19 Discontinued Scripts Lactulose (LACTULOSE*) 20 Gm/30 Ml Solution, 15 GM ORAL Q8HR for 30 Days, #60 ML Prov:Shireen Khan MD 02/08/19 Med list reviewed/reconciled: Yes Allergies: Coded Allergies: No Known Allergies (Unverified , 01/31/19) Patient History History Provided By: Patient, Medical Record PMH Narrative Past Medical History: see triage record Reviewed Nursing Documentation: PMH: Agreed; PSxH: Agreed Nursing Documentation-PM Past Medical History: No History, Except For Hx Cardiac Problems: Yes Hx Hypertension: Yes Hx Diabetes: Yes Hx Cancer: No Hx Gastrointestinal Problems: Yes - Alcoholic liver cirrhosis;Thrombocytopenia Hx Neurological Problems: Yes - Hepatic encephalopathy Social History: Reports: alcohol use Review of Systems All Other Systems: negative except mentioned in HPI Physical Exam Vital Signs Date Time Temp Pulse Resp B/P (MAP) Pulse Ox O2 Delivery O2 Flow Rate FiO2 05/03/19 11:12 98.2 104 19 119/62 (81) 97 Nasal Cannula 2.0 Sp02 EP Interpretation: reviewed, normal Labs Laboratory Tests Test 05/03/19 11:30 05/03/19 12:30 05/03/19 13:00 05/04/19 05:43 White Blood Count 14.3 K/UL (4.8-10.8) H 6.8 K/UL (4.8-10.8) # Red Blood Count 3.55 M/UL (4.20-5.40) L 2.65 M/UL (4.20-5.40) L Hemoglobin 8.9 G/DL (12.0-16.0) L 6.8 G/DL (12.0-16.0) *L Hematocrit 28.9 % (37.0-47.0) L 22.0 % (37.0-47.0) L Mean Corpuscular Volume 81 FL (80-99) 83 FL (80-99) Mean Corpuscular Hemoglobin 25.1 PG (27.0-31.0) L 25.7 PG (27.0-31.0) L Mean Corpuscular Hemoglobin Concent 30.9 G/DL (32.0-36.0) L 30.9 G/DL (32.0-36.0) L Red Cell Distribution Width 20.0 % (11.6-14.8) H 20.1 % (11.6-14.8) H Platelet Count 40 K/UL (150-450) L 23 K/UL (150-450) L Mean Platelet Volume 5.7 FL (6.5-10.1) L 9.3 FL (6.5-10.1) Neutrophils (%) (Auto) % (45.0-75.0) % (45.0-75.0) Lymphocytes (%) (Auto) % (20.0-45.0) % (20.0-45.0) Monocytes (%) (Auto) % (1.0-10.0) % (1.0-10.0) Eosinophils (%) (Auto) % (0.0-3.0) % (0.0-3.0) Basophils (%) (Auto) % (0.0-2.0) % (0.0-2.0) Differential Total Cells Counted 100 100 Neutrophils % (Manual) 90 % (45-75) H 85 % (45-75) H Lymphocytes % (Manual) 6 % (20-45) L 9 % (20-45) L Monocytes % (Manual) 4 % (1-10) 3 % (1-10) Eosinophils % (Manual) 0 % (0-3) 1 % (0-3) Basophils % (Manual) 0 % (0-2) 1 % (0-2) Band Neutrophils 0 % (0-8) 1 % (0-8) Platelet Estimate Decreased L Decreased L Platelet Morphology Normal Normal Red Blood Cell Morphology Hypochromasia 2+ 4+ Anisocytosis 2+ 2+ Sodium Level 137 MMOL/L (136-145) 137 MMOL/L (136-145) Potassium Level 4.0 MMOL/L (3.5-5.1) 3.7 MMOL/L (3.5-5.1) Chloride Level 106 MMOL/L (98-107) 108 MMOL/L (98-107) H Carbon Dioxide Level 19 MMOL/L (21-32) L 17 MMOL/L (21-32) L Anion Gap 12 mmol/L (5-15) 12 mmol/L (5-15) Blood Urea Nitrogen 18 mg/dL (7-18) 19 mg/dL (7-18) H Creatinine 1.3 MG/DL (0.55-1.30) 1.3 MG/DL (0.55-1.30) Estimat Glomerular Filtration Rate 42.2 mL/min (>60) 42.2 mL/min (>60) Glucose Level 97 MG/DL (74-106) 151 MG/DL (74-106) H Lactic Acid Level 2.60 mmol/L (0.4-2.0) H 2.50 mmol/L (0.66-2.22) H Calcium Level 8.2 MG/DL (8.5-10.1) L 7.4 MG/DL (8.5-10.1) L Total Bilirubin 3.8 MG/DL (0.2-1.0) H 2.8 MG/DL (0.2-1.0) H Direct Bilirubin 2.2 MG/DL (0.0-0.3) H 1.8 MG/DL (0.0-0.3) H Aspartate Amino Transf (AST/SGOT) 42 U/L (15-37) H 26 U/L (15-37) Alanine Aminotransferase (ALT/SGPT) 20 U/L (12-78) 15 U/L (12-78) Alkaline Phosphatase 371 U/L (46-116) H 235 U/L (46-116) H Total Protein 6.8 G/DL (6.4-8.2) 5.3 G/DL (6.4-8.2) L Albumin 1.5 G/DL (3.4-5.0) L 1.2 G/DL (3.4-5.0) L Globulin 5.3 g/dL 4.1 g/dL Albumin/Globulin Ratio 0.3 (1.0-2.7) L 0.3 (1.0-2.7) L Lipase 54 U/L (73-393) L 31 U/L (73-393) L Ammonia 30 umol/L (11-32) Urine Color Yellow Urine Appearance Slightly cloudy Urine pH 5 (4.5-8.0) Urine Specific [place] 1.010 (1.005-1.035) Urine Protein Negative (NEGATIVE) Urine Glucose (UA) Negative (NEGATIVE) Urine Ketones Negative (NEGATIVE) Urine Blood Negative (NEGATIVE) Urine Nitrite Negative (NEGATIVE) Urine Bilirubin Negative (NEGATIVE) Urine Urobilinogen Normal MG/DL (0.0-1.0) Urine Leukocyte Esterase 3+ (NEGATIVE) H Urine RBC 2-4 /HPF (0 - 2) H Urine WBC 30-40 /HPF (0 - 2) H Urine Squamous Epithelial Cells Many /LPF (NONE/OCC) H Urine Bacteria Moderate /HPF (NONE) H Urine Yeast Moderate /HPF (NONE) H Activated Partial Thromboplast Time 45 SEC (23-33) H Amylase Level 4 U/L (25-115) L General Appearance: well appearing, no apparent distress, alert Head: normocephalic EENT: PERRL/EOMI, normal ENT inspection Neck: supple Respiratory: normal breath sounds, no respiratory distress Cardiovascular: normal rate Gastrointestinal: normal inspection, non tender, soft, normal bowel sounds, non -distended, ascites Rectal: deferred Genitourinary: no CVA tenderness Musculoskeletal: normal inspection, back normal Neurologic: normal inspection, alert, oriented x3, responsive Psychiatric: normal inspection, judgement/insight normal, memory normal Skin: normal inspection, normal color, no rash, warm/dry, palpation normal, well hydrated Lymphatic: normal inspection, no adenopathy Current Medications Current Medications Medications (Trade) Dose Ordered Sig/Almaz Route PRN Reason Start Time Stop Time Status Last Admin Dose Admin Acetaminophen (Tylenol) 650 mg Q4H PRN ORAL fever 05/03/19 13:15 06/02/19 13:14 Dextrose (Dextrose 50%) 25 ml Q30M PRN IV Hypoglycemia 05/03/19 13:15 06/02/19 13:14 Dextrose (Dextrose 50%) 50 ml Q30M PRN IV Hypoglycemia 05/03/19 13:15 06/02/19 13:14 Dextrose/Sodium Chloride 1,000 ml @ 75 mls/hr [id number] IV 05/03/19 14:00 06/02/19 13:59 05/04/19 02:24 Diphenhydramine HCl (Benadryl) 25 mg Q6H PRN ORAL Itching/Pruritis 05/03/19 13:15 06/02/19 13:14 Morphine Sulfate (Morphine Sulfate) 2 mg Q4H PRN IVP severe Pain (Pain Scale 7-10) 05/03/19 13:15 05/10/19 13:14 05/03/19 20:36 Nitroglycerin (Ntg) 0.4 mg Q5M X 3 DOSES PRN SL Prn Chest Pain 05/03/19 13:15 06/02/19 13:14 Ondansetron HCl (Zofran) 4 mg Q6H PRN IVP Nausea & Vomiting 05/03/19 13:15 06/02/19 13:14 Pantoprazole (Protonix) 40 mg DAILY IVP 05/04/19 09:00 06/03/19 08:59 05/04/19 08:34 Polyethylene Glycol (Miralax) 17 gm HSPRN PRN ORAL Constipation 05/03/19 13:15 06/02/19 13:14 Temazepam (Restoril) 15 mg HSPRN PRN ORAL Insomnia 05/03/19 13:15 05/10/19 13:14 GI: Plan Problems: (1) Abdominal pain (2) Liver cirrhosis (3) Acute metabolic encephalopathy (4) Ascites (5) Anasarca (6) ETOH abuse (7) Anemia Plan Status post EGD on April 22, 2019. No noted gastric or esophageal varices at that time. Portal hypertensive gastropathy. Paracentesis ordered Okay to advance diet as tolerated after procedure Monitor H&H, PRN transfusions. 1 unit to be given today PPI plus Carafate twice daily given history of recent gastric ulcer Zofran as needed Follow labs Discussed with Dr. Torres. Thank you for this patient referral, we will follow. The patient was seen and examined at bedside and all new and available data was reviewed in the patients chart. I agree with the above findings, impression and plan. (Patient seen earlier today. Signature stamp does not reflect patient encounter time.). - MD Ariana Ruff AnhErinnMiguelito GABRIEL May 04, 2019 10:06
--- NOTE | 2019-05-04 11:45 | Consultation ---
History of Present Illness General Chief Complaint: Abdominal Pain Referring physician: Dr. Benjamin Reason for Consultation: inpatient management Present Illness HPI 58 year with end stage cirrhosis, recurrent ascites, ETOH abuse, reluctant to comfort care, still in the hope of getting a liver transplant or some other miracle, snf resident presented to [facility] with cc of ALOC, fever, increased abdominal girth. Allergies: Coded Allergies: No Known Allergies (Unverified , 01/31/19) Medication History Scheduled Cholestyramine (Cholestyramine Packet), 4 GM ORAL DAILY Furosemide* (Lasix*), 40 MG ORAL DAILY, (Reported) Lactulose (Lactulose), 15 GM PO EVERY 8 HOURS, (Reported) Lansoprazole* (Lansoprazole*), 15 MG ORAL DAILY, (Reported) Magnesium Oxide (Magnesium Oxide), 400 MG ORAL BID, (Reported) Rifaximin* (Xifaxan*), 550 MG ORAL TWICE A DAY, (Reported) Spironolactone (Aldactone), 50 MG ORAL DAILY Discontinued Medications Amlodipine Besylate* (Amlodipine Besylate*), 5 MG ORAL DAILY, (Reported) Discontinued Reason: Therapy completed Atorvastatin (Lipitor), 40 MG ORAL BEDTIME, (Reported) Discontinued Reason: Therapy completed Calcium Carbonate/Vitamin D3 (Oyster Shell 500 Mg + Vit D Tb), 1 EACH PO, ( Reported) Discontinued Reason: Therapy completed Celecoxib* (Celebrex*), 200 MG ORAL TWICE A DAY, (Reported) Discontinued Reason: Therapy completed Cholestyramine (Cholestyramine Resin), 5 GM ORAL DAILY, (Reported) Discontinued Reason: Medication dose changed Cholestyramine (Cholestyramine Packet), 4 GM ORAL DAILY, (Reported) Discontinued Reason: Pt stopped taking med Ferrous Sulfate* (Ferrous Sulfate*), 325 MG ORAL DAILY, (Reported) Discontinued Reason: Therapy completed Gabapentin* (Gabapentin*), 300 MG ORAL THREE TIMES A DAY, (Reported) Discontinued Reason: Therapy completed Hydroxyzine Hcl (Hydroxyzine Hcl), 10 MG PO TWICE A DAY, (Reported) Discontinued Reason: Therapy completed Lactulose (Lactulose*), 15 GM ORAL Q8HR Discontinued Reason: Medication dose changed Losartan Potassium (Losartan Potassium), 100 MG ORAL DAILY, (Reported) Discontinued Reason: Therapy completed Metformin Hcl* (Metformin Hcl*), 1,000 MG ORAL BID, (Reported) Discontinued Reason: Therapy completed Omeprazole (Omeprazole), 20 MG ORAL BID, (Reported) Discontinued Reason: Therapy completed Patient History Healthcare decision maker Resuscitation status Full Code Advanced Directive on File Past Medical/Surgical History Past Medical/Surgical History: (1) Liver cirrhosis (2) Anasarca (3) ETOH abuse Review of Systems All Other Systems: negative except mentioned in HPI Physical Exam General Appearance: WD/WN, no apparent distress Lines, tubes and drains: peripheral HEENT: normocephalic, atraumatic Neck: non-tender, normal alignment, limited range of motion Respiratory/Chest: chest wall non-tender, lungs clear Breasts: no masses Cardiovascular/Chest: normal peripheral pulses, normal rate Genitourinary/Rectal: normal genital exam, heme negative stool Skin Exam: normal pigmentation Last 24 Hour Vital Signs Date Time Temp Pulse Resp B/P (MAP) Pulse Ox O2 Delivery O2 Flow Rate FiO2 05/04/19 09:00 Room Air 05/04/19 08:00 77 05/04/19 08:00 97.2 77 18 104/60 (75) 98 05/04/19 04:00 98.1 76 18 103/59 (74) 96 05/04/19 04:00 74 05/04/19 00:00 84 05/04/19 00:00 97.4 86 18 103/65 (78) 95 05/03/19 21:00 Room Air 05/03/19 20:00 97.3 87 18 107/51 (69) 94 05/03/19 20:00 88 05/03/19 16:00 94 05/03/19 16:00 98.4 96 18 121/66 (84) 96 05/03/19 15:55 Room Air 05/03/19 15:00 98.4 92 18 107/59 (75) 99 05/03/19 13:46 102.4 96 30 121/59 96 Room Air 05/03/19 12:57 102.4 98 38 122/65 98 Room Air 05/03/19 12:36 102.4 05/03/19 11:34 103 24 Room Air 05/03/19 11:34 103.1 103 24 105/78 100 Room Air Intake and Output 05/03/19 05/04/19 19:00 07:00 Intake Total 75 ml 750 ml Output Total 100 ml Balance -25 ml 750 ml Intake IV Total 75 ml 750 ml Output Urine Total 100 ml # Voids 1 # Bowel Movements 1 1 Laboratory Tests Test 05/03/19 11:30 05/03/19 12:30 05/03/19 13:00 05/04/19 05:43 White Blood Count 14.3 K/UL (4.8-10.8) H 6.8 K/UL (4.8-10.8) # Red Blood Count 3.55 M/UL (4.20-5.40) L 2.65 M/UL (4.20-5.40) L Hemoglobin 8.9 G/DL (12.0-16.0) L 6.8 G/DL (12.0-16.0) *L Hematocrit 28.9 % (37.0-47.0) L 22.0 % (37.0-47.0) L Mean Corpuscular Volume 81 FL (80-99) 83 FL (80-99) Mean Corpuscular Hemoglobin 25.1 PG (27.0-31.0) L 25.7 PG (27.0-31.0) L Mean Corpuscular Hemoglobin Concent 30.9 G/DL (32.0-36.0) L 30.9 G/DL (32.0-36.0) L Red Cell Distribution Width 20.0 % (11.6-14.8) H 20.1 % (11.6-14.8) H Platelet Count 40 K/UL (150-450) L 23 K/UL (150-450) L Mean Platelet Volume 5.7 FL (6.5-10.1) L 9.3 FL (6.5-10.1) Neutrophils (%) (Auto) % (45.0-75.0) % (45.0-75.0) Lymphocytes (%) (Auto) % (20.0-45.0) % (20.0-45.0) Monocytes (%) (Auto) % (1.0-10.0) % (1.0-10.0) Eosinophils (%) (Auto) % (0.0-3.0) % (0.0-3.0) Basophils (%) (Auto) % (0.0-2.0) % (0.0-2.0) Differential Total Cells Counted 100 100 Neutrophils % (Manual) 90 % (45-75) H 85 % (45-75) H Lymphocytes % (Manual) 6 % (20-45) L 9 % (20-45) L Monocytes % (Manual) 4 % (1-10) 3 % (1-10) Eosinophils % (Manual) 0 % (0-3) 1 % (0-3) Basophils % (Manual) 0 % (0-2) 1 % (0-2) Band Neutrophils 0 % (0-8) 1 % (0-8) Platelet Estimate Decreased L Decreased L Platelet Morphology Normal Normal Red Blood Cell Morphology Hypochromasia 2+ 4+ Anisocytosis 2+ 2+ Sodium Level 137 MMOL/L (136-145) 137 MMOL/L (136-145) Potassium Level 4.0 MMOL/L (3.5-5.1) 3.7 MMOL/L (3.5-5.1) Chloride Level 106 MMOL/L (98-107) 108 MMOL/L (98-107) H Carbon Dioxide Level 19 MMOL/L (21-32) L 17 MMOL/L (21-32) L Anion Gap 12 mmol/L (5-15) 12 mmol/L (5-15) Blood Urea Nitrogen 18 mg/dL (7-18) 19 mg/dL (7-18) H Creatinine 1.3 MG/DL (0.55-1.30) 1.3 MG/DL (0.55-1.30) Estimat Glomerular Filtration Rate 42.2 mL/min (>60) 42.2 mL/min (>60) Glucose Level 97 MG/DL (74-106) 151 MG/DL (74-106) H Lactic Acid Level 2.60 mmol/L (0.4-2.0) H 2.50 mmol/L (0.66-2.22) H Calcium Level 8.2 MG/DL (8.5-10.1) L 7.4 MG/DL (8.5-10.1) L Total Bilirubin 3.8 MG/DL (0.2-1.0) H 2.8 MG/DL (0.2-1.0) H Direct Bilirubin 2.2 MG/DL (0.0-0.3) H 1.8 MG/DL (0.0-0.3) H Aspartate Amino Transf (AST/SGOT) 42 U/L (15-37) H 26 U/L (15-37) Alanine Aminotransferase (ALT/SGPT) 20 U/L (12-78) 15 U/L (12-78) Alkaline Phosphatase 371 U/L (46-116) H 235 U/L (46-116) H Total Protein 6.8 G/DL (6.4-8.2) 5.3 G/DL (6.4-8.2) L Albumin 1.5 G/DL (3.4-5.0) L 1.2 G/DL (3.4-5.0) L Globulin 5.3 g/dL 4.1 g/dL Albumin/Globulin Ratio 0.3 (1.0-2.7) L 0.3 (1.0-2.7) L Lipase 54 U/L (73-393) L 31 U/L (73-393) L Ammonia 30 umol/L (11-32) Urine Color Yellow Urine Appearance Slightly cloudy Urine pH 5 (4.5-8.0) Urine Specific [place] 1.010 (1.005-1.035) Urine Protein Negative (NEGATIVE) Urine Glucose (UA) Negative (NEGATIVE) Urine Ketones Negative (NEGATIVE) Urine Blood Negative (NEGATIVE) Urine Nitrite Negative (NEGATIVE) Urine Bilirubin Negative (NEGATIVE) Urine Urobilinogen Normal MG/DL (0.0-1.0) Urine Leukocyte Esterase 3+ (NEGATIVE) H Urine RBC 2-4 /HPF (0 - 2) H Urine WBC 30-40 /HPF (0 - 2) H Urine Squamous Epithelial Cells Many /LPF (NONE/OCC) H Urine Bacteria Moderate /HPF (NONE) H Urine Yeast Moderate /HPF (NONE) H Activated Partial Thromboplast Time 45 SEC (23-33) H Amylase Level 4 U/L (25-115) L Microbiology Date/Time Source Procedure Growth Status 05/03/19 13:00 Urine,Clean Catch Urine Culture - Preliminary NO GROWTH Resulted 05/03/19 13:52 Rectum Received Height (Feet): 5 Height (Inches): 3.00 Weight (Pounds): 202 Medications Current Medications Medications (Trade) Dose Ordered Sig/Almaz Route PRN Reason Start Time Stop Time Status Last Admin Dose Admin Acetaminophen (Tylenol) 650 mg Q4H PRN ORAL fever 05/03/19 13:15 06/02/19 13:14 Dextrose (Dextrose 50%) 25 ml Q30M PRN IV Hypoglycemia 05/03/19 13:15 06/02/19 13:14 Dextrose (Dextrose 50%) 50 ml Q30M PRN IV Hypoglycemia 05/03/19 13:15 06/02/19 13:14 Dextrose/Sodium Chloride 1,000 ml @ 75 mls/hr [id number] IV 05/03/19 14:00 06/02/19 13:59 05/04/19 02:24 Diphenhydramine HCl (Benadryl) 25 mg Q6H PRN ORAL Itching/Pruritis 05/03/19 13:15 06/02/19 13:14 Morphine Sulfate (Morphine Sulfate) 2 mg Q4H PRN IVP severe Pain (Pain Scale 7-10) 05/03/19 13:15 05/10/19 13:14 05/03/19 20:36 Nitroglycerin (Ntg) 0.4 mg Q5M X 3 DOSES PRN SL Prn Chest Pain 05/03/19 13:15 06/02/19 13:14 Ondansetron HCl (Zofran) 4 mg Q6H PRN IVP Nausea & Vomiting 05/03/19 13:15 06/02/19 13:14 Pantoprazole (Protonix) 40 mg DAILY IVP 05/04/19 09:00 06/03/19 08:59 05/04/19 08:34 Polyethylene Glycol (Miralax) 17 gm HSPRN PRN ORAL Constipation 05/03/19 13:15 06/02/19 13:14 Sucralfate (Carafate) 1 gm BID ORAL 05/04/19 18:00 06/03/19 17:59 Temazepam (Restoril) 15 mg HSPRN PRN ORAL Insomnia 05/03/19 13:15 05/10/19 13:14 Assessment/Plan Problem List: (1) Acute on chronic alcoholic liver disease ICD Codes: K70.9 - Alcoholic liver disease, unspecified SNOMED: 916956640 (2) Acute metabolic encephalopathy ICD Codes: G93.41 - Metabolic encephalopathy SNOMED: 96444048, 408516237 (3) Liver cirrhosis ICD Codes: K74.60 - Unspecified cirrhosis of liver SNOMED: 45930382 (4) Anemia ICD Codes: D64.9 - Anemia, unspecified SNOMED: 492644357 (5) Ascites ICD Codes: R18.8 - Other ascites SNOMED: 721516778 (6) Anasarca ICD Codes: R60.1 - Generalized edema SNOMED: 055345839, 177195112 Assessment/Plan: mccarty cultures iv abx lasix can't do paracentesis b/o low PLT symptomatic management Shireen Khan MD May 04, 2019 11:45
--- NOTE | 2019-05-04 11:49 | NUR ---
Social Service Note SW left a message for patient's son Matteo Mijares [phone]. From previous admission son only can answer his phone between the hours of 07/1130. Will continue to follow up.
[2019-05-04] MEDS ORDERED: Furosemide 40mg tab ORAL SCH (14:00)
--- NOTE | 2019-05-04 14:28 | Consultation ---
History of Present Illness General Date patient seen: May 04, 2019 Chief Complaint: Abdominal Pain Referring physician: Dr. Benjamin Reason for Consultation: inpatient management Present Illness HPI 58 y/o F with hx of Liver cirrhosis, recurrent ascites, HTN, ETOH abuse, Dm2, [facility] resident presented to ED on 05/03 with altered mental status, fever, increased abdominal girth, nausea and vomiting Denied diarrhea, chest pain Of note, patient admitted here form 03/12- with abd pain and ascites. Allergies: Coded Allergies: No Known Allergies (Unverified , 01/31/19) Medication History Scheduled Cholestyramine (Cholestyramine Packet), 4 GM ORAL DAILY Furosemide* (Lasix*), 40 MG ORAL DAILY, (Reported) Lactulose (Lactulose), 15 GM PO EVERY 8 HOURS, (Reported) Lansoprazole* (Lansoprazole*), 15 MG ORAL DAILY, (Reported) Magnesium Oxide (Magnesium Oxide), 400 MG ORAL BID, (Reported) Rifaximin* (Xifaxan*), 550 MG ORAL TWICE A DAY, (Reported) Spironolactone (Aldactone), 50 MG ORAL DAILY Discontinued Medications Amlodipine Besylate* (Amlodipine Besylate*), 5 MG ORAL DAILY, (Reported) Discontinued Reason: Therapy completed Atorvastatin (Lipitor), 40 MG ORAL BEDTIME, (Reported) Discontinued Reason: Therapy completed Calcium Carbonate/Vitamin D3 (Oyster Shell 500 Mg + Vit D Tb), 1 EACH PO, ( Reported) Discontinued Reason: Therapy completed Celecoxib* (Celebrex*), 200 MG ORAL TWICE A DAY, (Reported) Discontinued Reason: Therapy completed Cholestyramine (Cholestyramine Resin), 5 GM ORAL DAILY, (Reported) Discontinued Reason: Medication dose changed Cholestyramine (Cholestyramine Packet), 4 GM ORAL DAILY, (Reported) Discontinued Reason: Pt stopped taking med Ferrous Sulfate* (Ferrous Sulfate*), 325 MG ORAL DAILY, (Reported) Discontinued Reason: Therapy completed Gabapentin* (Gabapentin*), 300 MG ORAL THREE TIMES A DAY, (Reported) Discontinued Reason: Therapy completed Hydroxyzine Hcl (Hydroxyzine Hcl), 10 MG PO TWICE A DAY, (Reported) Discontinued Reason: Therapy completed Lactulose (Lactulose*), 15 GM ORAL Q8HR Discontinued Reason: Medication dose changed Losartan Potassium (Losartan Potassium), 100 MG ORAL DAILY, (Reported) Discontinued Reason: Therapy completed Metformin Hcl* (Metformin Hcl*), 1,000 MG ORAL BID, (Reported) Discontinued Reason: Therapy completed Omeprazole (Omeprazole), 20 MG ORAL BID, (Reported) Discontinued Reason: Therapy completed Patient History Healthcare decision maker Resuscitation status Full Code Advanced Directive on File Patient History Narrative Pmhx: as above Shx: The patient is single and lives with her family. The patient denies tobacco use. The patient previously had heavy alcohol use. Fhx: non contributory Review of Systems All Other Systems: negative except mentioned in HPI Physical Exam Physical Exam Narrative GENERAL: The patient is a well-developed and well-nourished obese female, in moderate abdominal pain and distress. HEENT: Eyes, pupils are equal and responsive to light and accommodation. Extraocular movements are intact. No scleral icterus is noted. CHEST: Lungs are clear to auscultation bilaterally without wheezes or rales. CARDIOVASCULAR: Regular rhythm and rate. S1 and S2 are normal without murmurs, rubs, or gallops. ABDOMEN: Soft, diffusely tender with decreased bowel sounds. No evidence of hepatosplenomegaly. Currently, no rebound or guarding noted. There is no fluid wave present. NEUROLOGICAL: Cranial nerves II through XII are grossly intact without focal deficits. Last 24 Hour Vital Signs Date Time Temp Pulse Resp B/P (MAP) Pulse Ox O2 Delivery O2 Flow Rate FiO2 05/04/19 13:02 96.8 61 20 156/56 (89) 94 05/04/19 12:00 97.3 75 18 102/61 (75) 96 05/04/19 09:00 Room Air 05/04/19 08:00 77 05/04/19 08:00 97.2 77 18 104/60 (75) 98 05/04/19 04:00 98.1 76 18 103/59 (74) 96 05/04/19 04:00 74 05/04/19 00:00 84 05/04/19 00:00 97.4 86 18 103/65 (78) 95 05/03/19 21:00 Room Air 05/03/19 20:00 97.3 87 18 107/51 (69) 94 05/03/19 20:00 88 05/03/19 16:00 94 05/03/19 16:00 98.4 96 18 121/66 (84) 96 05/03/19 15:55 Room Air 05/03/19 15:00 98.4 92 18 107/59 (75) 99 Intake and Output 05/03/19 05/04/19 19:00 07:00 Intake Total 75 ml 750 ml Output Total 100 ml Balance -25 ml 750 ml Intake IV Total 75 ml 750 ml Output Urine Total 100 ml # Voids 1 # Bowel Movements 1 1 Laboratory Tests Test 05/04/19 05:43 White Blood Count 6.8 K/UL (4.8-10.8) # Red Blood Count 2.65 M/UL (4.20-5.40) L Hemoglobin 6.8 G/DL (12.0-16.0) *L Hematocrit 22.0 % (37.0-47.0) L Mean Corpuscular Volume 83 FL (80-99) Mean Corpuscular Hemoglobin 25.7 PG (27.0-31.0) L Mean Corpuscular Hemoglobin Concent 30.9 G/DL (32.0-36.0) L Red Cell Distribution Width 20.1 % (11.6-14.8) H Platelet Count 23 K/UL (150-450) L Mean Platelet Volume 9.3 FL (6.5-10.1) Neutrophils (%) (Auto) % (45.0-75.0) Lymphocytes (%) (Auto) % (20.0-45.0) Monocytes (%) (Auto) % (1.0-10.0) Eosinophils (%) (Auto) % (0.0-3.0) Basophils (%) (Auto) % (0.0-2.0) Differential Total Cells Counted 100 Neutrophils % (Manual) 85 % (45-75) H Lymphocytes % (Manual) 9 % (20-45) L Monocytes % (Manual) 3 % (1-10) Eosinophils % (Manual) 1 % (0-3) Basophils % (Manual) 1 % (0-2) Band Neutrophils 1 % (0-8) Platelet Estimate Decreased L Platelet Morphology Normal Hypochromasia 4+ Anisocytosis 2+ Activated Partial Thromboplast Time 45 SEC (23-33) H Sodium Level 137 MMOL/L (136-145) Potassium Level 3.7 MMOL/L (3.5-5.1) Chloride Level 108 MMOL/L (98-107) H Carbon Dioxide Level 17 MMOL/L (21-32) L Anion Gap 12 mmol/L (5-15) Blood Urea Nitrogen 19 mg/dL (7-18) H Creatinine 1.3 MG/DL (0.55-1.30) Estimat Glomerular Filtration Rate 42.2 mL/min (>60) Glucose Level 151 MG/DL (74-106) H Calcium Level 7.4 MG/DL (8.5-10.1) L Total Bilirubin 2.8 MG/DL (0.2-1.0) H Direct Bilirubin 1.8 MG/DL (0.0-0.3) H Aspartate Amino Transf (AST/SGOT) 26 U/L (15-37) Alanine Aminotransferase (ALT/SGPT) 15 U/L (12-78) Alkaline Phosphatase 235 U/L (46-116) H Total Protein 5.3 G/DL (6.4-8.2) L Albumin 1.2 G/DL (3.4-5.0) L Globulin 4.1 g/dL Albumin/Globulin Ratio 0.3 (1.0-2.7) L Amylase Level 4 U/L (25-115) L Lipase 31 U/L (73-393) L Height (Feet): 5 Height (Inches): 3.00 Weight (Pounds): 202 Medications Current Medications Medications (Trade) Dose Ordered Sig/Almaz Route PRN Reason Start Time Stop Time Status Last Admin Dose Admin Acetaminophen (Tylenol) 650 mg Q4H PRN ORAL fever 05/03/19 13:15 06/02/19 13:14 Dextrose (Dextrose 50%) 25 ml Q30M PRN IV Hypoglycemia 05/03/19 13:15 06/02/19 13:14 Dextrose (Dextrose 50%) 50 ml Q30M PRN IV Hypoglycemia 05/03/19 13:15 06/02/19 13:14 Dextrose/Sodium Chloride 1,000 ml @ 75 mls/hr [id number] IV 05/03/19 14:00 06/02/19 13:59 05/04/19 02:24 Diphenhydramine HCl (Benadryl) 25 mg Q6H PRN ORAL Itching/Pruritis 05/03/19 13:15 06/02/19 13:14 Furosemide (Lasix) 40 mg EVERY 8 HOURS ORAL 05/04/19 14:00 06/03/19 13:59 Morphine Sulfate (Morphine Sulfate) 2 mg Q4H PRN IVP severe Pain (Pain Scale 7-10) 05/03/19 13:15 05/10/19 13:14 05/03/19 20:36 Nitroglycerin (Ntg) 0.4 mg Q5M X 3 DOSES PRN SL Prn Chest Pain 05/03/19 13:15 06/02/19 13:14 Ondansetron HCl (Zofran) 4 mg Q6H PRN IVP Nausea & Vomiting 05/03/19 13:15 06/02/19 13:14 Pantoprazole (Protonix) 40 mg DAILY IVP 05/04/19 09:00 06/03/19 08:59 05/04/19 08:34 Polyethylene Glycol (Miralax) 17 gm HSPRN PRN ORAL Constipation 05/03/19 13:15 06/02/19 13:14 Sucralfate (Carafate) 1 gm BID ORAL 05/04/19 18:00 06/03/19 17:59 Temazepam (Restoril) 15 mg HSPRN PRN ORAL Insomnia 05/03/19 13:15 05/10/19 13:14 Assessment/Plan Assessment/Plan: Abx: Zosyn x1 05/03 Flagyl x 05/03 Assessment: Sepsis- r/o SBP, bacteremia, PNA Leukocytosis, SP Fever, improving -u/a wbc 40-60, nit neg, leuk +3; ucx NTD Abd pain Recurrent ascites - -03/11/19 sp paracentesis:fluid wbc 97 (N 34%) HTN DM Liver Cirrhosis EtOH abuse Plan: -Continue empiric Zosyn #2 -/ SP Cipro #4 and flagyl #3 -f/u cx -Monitor CBC/CMP, temperatures -CXR Thank you for this consultation. Will continue to follow along with you. Discussed with Edyta Alvarado M.D. May 04, 2019 14:28
--- NOTE | 2019-05-04 15:00 | NUR ---
NURSE NOTES: Blood transfusion initiated @ 1400. Protocol followed.Consent signed by Patient. Verified with 2nd Rn and Md. Will follow.
--- NOTE | 2019-05-04 15:29 | NUR ---
CASE MANAGEMENT:[facility] 58 [facility] SI: SEPSIS 98.2 104 19 119/62 97% ON 2L/NC WBC+14.3 LACTIC ACID+2.60 TBILI+3.8 DBILI+2.2 IS: 1L NS BOLUS TYLENOL PO IV ZOSYN IV FLAGYL BLOOD CX : TO TELEMETRY 05/04/19 SI: H/H-6.8/22.0 PLT-23 IS: TRANSFUSE 1 UNIT PRBC'S : TELEMETRY INTERQUAL CRITERIA MET
[2019-05-04] MEDS ORDERED: Piperacillin/Tazobactam 3.375 GM in NS 110 ML IVPB SCH (15:30)
--- NOTE | 2019-05-04 15:34 | NUR ---
NURSE NOTES:WOUND CARE NOTES:Pt presented on admission with perineal dermatitis with small partial thickness wound at sacrococcygeal area(L)1cm x (W)0.5cm. Base of wound is moist and viable with surrounding non-blanchable erythema. Pt denied burning or tenderness. Pt educated on wound prevention. Pt informed of dermatitis and pressure injury sacrococcygeal area. Informed of risks for further skin decline and of need to keep skin clean and dry. Pt instructed to notify staff when incontinent to avoid prolonged exposure to urine or faeces on skin. Pt also instructed to frequentlyu reposition while in bed. Recommendations: Apply Moisture Barrier Paste to to perineum and buttocks with each perineal care. Cover sacrum with Optifoam drsg. Change every 3 days and prn. Assist with repositioning at least every 2 hours or as tolerated. Off-load heels with pillow.
--- NOTE | 2019-05-04 16:24 | NUR ---
Dr. Hartley made aware of positive gram variable on 1 bottles of blood culture. no new order received. will follow.
[2019-05-04] MEDS ORDERED: Sucralfate 1gm tab ORAL SCH (18:00)
--- NOTE | 2019-05-04 18:00 | NUR ---
NURSE NOTES: Blood transfusion completed at 193. no s/s of adverse reaction noted. VSS. will follow.
--- NOTE | 2019-05-04 18:44 | Internal Med Progress Note ---
Subjective Date of Service: May 04, 2019 Physician Name Jose Benjamin Attending Physician Goldy Amador MD Current Medications Medications (Trade) Dose Ordered Sig/Almaz Route PRN Reason Start Time Stop Time Status Last Admin Dose Admin Acetaminophen (Tylenol) 650 mg Q4H PRN ORAL fever 05/03/19 13:15 06/02/19 13:14 Dextrose (Dextrose 50%) 25 ml Q30M PRN IV Hypoglycemia 05/03/19 13:15 06/02/19 13:14 Dextrose (Dextrose 50%) 50 ml Q30M PRN IV Hypoglycemia 05/03/19 13:15 06/02/19 13:14 Dextrose/Sodium Chloride 1,000 ml @ 75 mls/hr [id number] IV 05/03/19 14:00 06/02/19 13:59 05/04/19 16:40 Diphenhydramine HCl (Benadryl) 25 mg Q6H PRN ORAL Itching/Pruritis 05/03/19 13:15 06/02/19 13:14 Furosemide (Lasix) 40 mg EVERY 8 HOURS ORAL 05/04/19 14:00 06/03/19 13:59 05/04/19 18:21 Morphine Sulfate (Morphine Sulfate) 2 mg Q4H PRN IVP severe Pain (Pain Scale 7-10) 05/03/19 13:15 05/10/19 13:14 05/03/19 20:36 Nitroglycerin (Ntg) 0.4 mg Q5M X 3 DOSES PRN SL Prn Chest Pain 05/03/19 13:15 06/02/19 13:14 Ondansetron HCl (Zofran) 4 mg Q6H PRN IVP Nausea & Vomiting 05/03/19 13:15 06/02/19 13:14 Pantoprazole (Protonix) 40 mg DAILY IVP 05/04/19 09:00 06/03/19 08:59 05/04/19 08:34 Piperacillin Sod/ Tazobactam Sod 3.375 gm/Sodium Chloride 110 ml @ 27.5 mls/hr EVERY 8 HOURS IVPB 05/04/19 15:30 05/09/19 15:29 Polyethylene Glycol (Miralax) 17 gm HSPRN PRN ORAL Constipation 05/03/19 13:15 06/02/19 13:14 Sucralfate (Carafate) 1 gm BID ORAL 05/04/19 18:00 06/03/19 17:59 05/04/19 18:21 Temazepam (Restoril) 15 mg HSPRN PRN ORAL Insomnia 05/03/19 13:15 05/10/19 13:14 Allergies: Coded Allergies: No Known Allergies (Unverified , 01/31/19) ROS Limited/Unobtainable: No Constitutional: Reports: no symptoms HEENT: Reports: no symptoms Cardiovascular: Reports: no symptoms Respiratory: Reports: no symptoms Gastrointestinal/Abdominal: Reports: no symptoms Genitourinary: Reports: no symptoms Neurologic/Psychiatric: Reports: no symptoms Subjective 58 YO F with H/O hepatic cirrhosis with ascites admitted with abdominal pain. Now UTI. Cover for Int Eloy-DR Amador Objective Last Vital Signs Date Time Temp Pulse Resp B/P (MAP) Pulse Ox O2 Delivery O2 Flow Rate FiO2 05/04/19 17:35 97.1 78 20 102/61 (75) 95 05/04/19 09:00 Room Air 05/03/19 11:12 2.0 Laboratory Tests Test 05/04/19 05:43 White Blood Count 6.8 K/UL (4.8-10.8) # Red Blood Count 2.65 M/UL (4.20-5.40) L Hemoglobin 6.8 G/DL (12.0-16.0) *L Hematocrit 22.0 % (37.0-47.0) L Mean Corpuscular Volume 83 FL (80-99) Mean Corpuscular Hemoglobin 25.7 PG (27.0-31.0) L Mean Corpuscular Hemoglobin Concent 30.9 G/DL (32.0-36.0) L Red Cell Distribution Width 20.1 % (11.6-14.8) H Platelet Count 23 K/UL (150-450) L Mean Platelet Volume 9.3 FL (6.5-10.1) Neutrophils (%) (Auto) % (45.0-75.0) Lymphocytes (%) (Auto) % (20.0-45.0) Monocytes (%) (Auto) % (1.0-10.0) Eosinophils (%) (Auto) % (0.0-3.0) Basophils (%) (Auto) % (0.0-2.0) Differential Total Cells Counted 100 Neutrophils % (Manual) 85 % (45-75) H Lymphocytes % (Manual) 9 % (20-45) L Monocytes % (Manual) 3 % (1-10) Eosinophils % (Manual) 1 % (0-3) Basophils % (Manual) 1 % (0-2) Band Neutrophils 1 % (0-8) Platelet Estimate Decreased L Platelet Morphology Normal Hypochromasia 4+ Anisocytosis 2+ Activated Partial Thromboplast Time 45 SEC (23-33) H Sodium Level 137 MMOL/L (136-145) Potassium Level 3.7 MMOL/L (3.5-5.1) Chloride Level 108 MMOL/L (98-107) H Carbon Dioxide Level 17 MMOL/L (21-32) L Anion Gap 12 mmol/L (5-15) Blood Urea Nitrogen 19 mg/dL (7-18) H Creatinine 1.3 MG/DL (0.55-1.30) Estimat Glomerular Filtration Rate 42.2 mL/min (>60) Glucose Level 151 MG/DL (74-106) H Calcium Level 7.4 MG/DL (8.5-10.1) L Total Bilirubin 2.8 MG/DL (0.2-1.0) H Direct Bilirubin 1.8 MG/DL (0.0-0.3) H Aspartate Amino Transf (AST/SGOT) 26 U/L (15-37) Alanine Aminotransferase (ALT/SGPT) 15 U/L (12-78) Alkaline Phosphatase 235 U/L (46-116) H Total Protein 5.3 G/DL (6.4-8.2) L Albumin 1.2 G/DL (3.4-5.0) L Globulin 4.1 g/dL Albumin/Globulin Ratio 0.3 (1.0-2.7) L Amylase Level 4 U/L (25-115) L Lipase 31 U/L (73-393) L Microbiology Date/Time Source Procedure Growth Status 05/03/19 11:45 Blood Blood Culture - Preliminary Resulted 05/03/19 13:00 Urine,Clean Catch Urine Culture - Preliminary NO GROWTH Resulted 05/03/19 13:52 Rectum Received Intake and Output 05/03/19 05/04/19 19:00 07:00 Intake Total 75 ml 750 ml Output Total 100 ml Balance -25 ml 750 ml Intake IV Total 75 ml 750 ml Output Urine Total 100 ml # Voids 1 # Bowel Movements 1 1 Objective PHYSICAL EXAMINATION: GENERAL: The patient is a well-developed and well-nourished obese female, in moderate abdominal pain and distress. HEENT: Eyes, pupils are equal and responsive to light and accommodation. Extraocular movements are intact. No scleral icterus is noted. CHEST: Lungs are clear to auscultation bilaterally without wheezes or rales. CARDIOVASCULAR: Regular rhythm and rate. S1 and S2 are normal without murmurs, rubs, or gallops. ABDOMEN: Soft, diffusely tender with decreased bowel sounds. No evidence of hepatosplenomegaly. Currently, no rebound or guarding noted. There is no fluid wave present. NEUROLOGICAL: Cranial nerves II through XII are grossly intact without focal deficits. Assessment/Plan Assessment/Plan ASSESSMENT: This is a 58-year-old female. 1. Abdominal pain. 2. Nausea with vomiting. 3. Fever. 4. Elevated liver function tests. 5. Urinary tract infection. 6. Hepatic encephalopathy. 7. Alcoholic cirrhosis of the liver. 8. Hypertension. 9. Diabetes type 2. 10. Thrombocytopenia. 11. Ascites. 12. Hypercholesterolemia. 13. Portal hypertension. 14. Severe anemia TREATMENT: 1. Elevated liver function tests/hepatic encephalopathy/alcoholic cirrhosis of the liver. A Gastroenterology consultation has been obtained with Dr. Jon Torres. Continue Prevacid as above. Await paracentesis today. 2. Urinary tract infection. Urine culture is pending. The patient has been started empirically on intravenous Zosyn and metronidazole. 3. Hypertension. The patient is currently hypotensive. 4. Diabetes type 2. A NovoLog sliding scale has been instituted. 5. Thrombocytopenia. This is probably secondary to chronic liver disease. 6. Hepatic encephalopathy. Continue lactulose and Xifaxan as above. 7. Ascites as above. The patient may require paracentesis during this hospitalization. 8. Hypercholesterolemia. 9. Portal hypertension. 10. Transfuse 1 unit PRBC today Jose Benjamin MD May 04, 2019 18:44
--- NOTE | 2019-05-04 19:36 | NUR ---
HAND-OFF: Report given to Niru/Lokesh Simmons. Patient stable. Plan of care endorsed.
--- NOTE | 2019-05-04 19:37 | NUR ---
NURSE NOTES: Received patient awake, lying in bed; resting comfortably. A/O x 4. Mainly Samoan speaking. Denies pain at this time. No signs of acute cardiorespiratory distress noted. Checked IV site intact and patent. No erythema, bleeding or infiltration noted. Bed at lowest position, brakes on, siderails x3. Call light within reach. Will continue to monitor.
[2019-05-04] MEDS ORDERED: Nitroglycerin Subl 0.4mg tab SL PRN (21:00)
--- NOTE | 2019-05-04 21:04 | NUR ---
TRANSFER TO FLOOR: Report given to CHAVA Ambrosio. Patient was transferred to Med-Surg floor from Telemetry unit without incident. No signs of acute distress noted; complains of some pain. Patient taken off Tele box; tolerated well. Belongings list checked with receiving RN. Per receiving RN, will take wound photo. Bed at lowest position, brakes on, siderails up x3. Call light within reach.
--- NOTE | 2019-05-04 21:05 | NUR ---
NURSE NOTES: Patient transferred from Tele unit room 201-2. A&OX4. IV site patent and intact. Noted sacral crease, picture taken and dressing changed. Belongings were checked. Bed in lowest position. Call light within reach. Will continue to monitor.
[2019-05-04] MEDS ORDERED: Miralax 17gm pkt ORAL PRN (21:15)
[2019-05-04] MEDS: Furosemide 40mg tab ORAL SCH (21:42)
[2019-05-04] MEDS: Piperacillin/Tazobactam 3.375 GM in NS 110 ML IVPB SCH (21:43)
[2019-05-05] VITALS: BP 118/60
[2019-05-05 04:00] VITALS: BP 105/82
[2019-05-05] MEDS: Furosemide 40mg tab ORAL SCH ×3 (05:43→21:49)
[2019-05-05] MEDS: Sucralfate 1gm tab ORAL SCH ×2 (05:43→17:16)
[2019-05-05] MEDS: Piperacillin/Tazobactam 3.375 GM in NS 110 ML IVPB SCH ×3 (05:43→21:50)
[2019-05-05 06:14] LABS: HEMATOCRIT 28.2 % (37.0-47.0); HEMOGLOBIN 8.9 G/DL (12.0-16.0); MEAN CORPUSCULAR VOLUME 84 FL (80-99); PLATELET COUNT 51 K/UL (150-450); RED BLOOD COUNT 3.37 M/UL (4.20-5.40); RED CELL DISTRIBUTION WIDTH 19.5 % (11.6-14.8); WHITE BLOOD COUNT 8.7 K/UL (4.8-10.8)
[2019-05-05 06:49] LABS: ALANINE AMINOTRANSFERASE 14 U/L (12-78); ALBUMIN 1.2 G/DL (3.4-5.0); ALBUMIN/GLOBULIN RATIO 0.3 (1.0-2.7); ALKALINE PHOSPHATASE 227 U/L (46-116); ANION GAP 11 mmol/L (5-15); ASPARTATE AMINO TRANSFERASE 20 U/L (15-37); BILIRUBIN,TOTAL 3.5 MG/DL (0.2-1.0); BLOOD UREA NITROGEN 21 mg/dL (7-18); CALCIUM 7.8 MG/DL (8.5-10.1); CARBON DIOXIDE 19 MMOL/L (21-32); CHLORIDE 107 MMOL/L (98-107); CREATININE 1.4 MG/DL (0.55-1.30); PHOSPHORUS 2.8 MG/DL (2.5-4.9); POTASSIUM 3.3 MMOL/L (3.5-5.1); SODIUM 137 MMOL/L (136-145)
[2019-05-05 06:51] LABS: BILIRUBIN,DIRECT 2.3 MG/DL (0.0-0.3)
--- NOTE | 2019-05-05 07:42 | NUR ---
HAND-OFF: Report given to Radha LARSEN.
--- NOTE | 2019-05-05 07:45 | NUR ---
NURSE NOTES: Received report from Hebert/RN, Patient is asleep, Lying semi-woodard's, resting comfortably. On room air, No acute distress/SOB noted. IV on right wrist 20G, patent, no bleeding or infiltration noted. D5 1/2 NS running at 75cc. Bed in low position and locked, Bed alarm and break on. Call light within reach. Will continue plan of care.
[2019-05-05 08:00] VITALS: BP 101/63
--- NOTE | 2019-05-05 08:40 | NUR ---
RADIOLOGY DEPT., CHEST X-RAY DONE. Bryan JOHNSON
[2019-05-05] MEDS: Pantoprazole Inj IVP SCH (08:54)
--- NOTE | 2019-05-05 10:47 | Pre-Procedure Note/Attestation ---
Pre-Procedure Note/Attestation Complete Prior to Procedure Planned Procedure: not applicable Procedure Narrative: paracentesis Indications for Procedure Pre-Operative Diagnosis: ascites Attestation I attest that I discussed the nature of the procedure; its benefits; risks and complications; and alternatives (and the risks and benefits of such alternatives ), prior to the procedure, with the patient (or the patient's legal telemarketing sales representative). I attest that, if there was a reasonable possibility of needing a blood transfusion, the patient (or the patient's legal telemarketing sales representative) was given the [facility] standardized written summary, pursuant to the Elijah Damian Blood Safety Act ([place] Health and Safety Code # 1645, as amended). I attest that I re-evaluated the patient just prior to the surgery and that there has been no change in the patient's H&P, except as documented below: Donnie Rosado MD May 05, 2019 10:47
--- NOTE | 2019-05-05 10:54 | Diagnostic Imaging Report ---
Indication: Cough Technique: One view of the chest Comparison: 04/18/2019 Findings: Better inspiration currently. The heart is enlarged. There is mild interstitial congestion, not evident previously. The aorta is tortuous. Impression: Mild interstitial congestion Cardiomegaly
--- NOTE | 2019-05-05 10:59 | Brief Operative Note ---
Immediate Post Operative Note Operative Note Pre-op Diagnosis: ascites Procedure: paracentesis Post-op Diagnosis: ascites Surgeon: Milan Rosa Anesthesia: local Specimen: yes - 50 ml fluid sent to lab Complications: none Fluids: none Implant(s) used?: No Donnie Rosa MD May 05, 2019 10:59
[2019-05-05] MEDS: D5 1/2NS 1,000 ML IV SCH ×2 (11:15→22:40)
[2019-05-05 12:00] VITALS: BP 114/63
--- NOTE | 2019-05-05 12:46 | GI Progress Note ---
Assessment/Plan Problems: (1) ETOH abuse ICD Codes: F10.10 - Alcohol abuse, uncomplicated SNOMED: 94669461 (2) Acute metabolic encephalopathy ICD Codes: G93.41 - Metabolic encephalopathy SNOMED: 57355684, 516651217 (3) Liver cirrhosis ICD Codes: K74.60 - Unspecified cirrhosis of liver SNOMED: 95363991 (4) Abdominal pain ICD Codes: R10.9 - Unspecified abdominal pain SNOMED: 78162519 (5) Acute on chronic alcoholic liver disease ICD Codes: K70.9 - Alcoholic liver disease, unspecified SNOMED: 336773820 (6) Anemia ICD Codes: D64.9 - Anemia, unspecified SNOMED: 169700552 (7) Ascites ICD Codes: R18.8 - Other ascites SNOMED: 933090501 Status: stable Status Narrative Discussed with Dr. Torres. Assessment/Plan Status post EGD on April 22, 2019. No noted gastric or esophageal varices at that time. Portal hypertensive gastropathy. s/p paracentesis today with approximate 3L output cardiac soft diet Monitor H&H, PRN transfusions. PPI plus Carafate twice daily given history of recent gastric ulcer Zofran as needed Follow labs The patient was seen and examined at bedside and all new and available data was reviewed in the patients chart. I agree with the above findings, impression and plan. (Patient seen earlier today. Signature stamp does not reflect patient encounter time.). - Jon Torres MD Subjective Gastrointestinal/Abdominal: Reports: no symptoms Objective Last 24 Hour Vital Signs Date Time Temp Pulse Resp B/P (MAP) Pulse Ox O2 Delivery O2 Flow Rate FiO2 05/05/19 09:00 Room Air 05/05/19 08:00 98.1 74 18 101/63 (76) 98 05/05/19 04:00 97.4 80 17 105/82 (90) 97 05/05/19 00:00 97.7 83 18 118/60 (79) 97 05/04/19 21:20 Room Air 05/04/19 21:10 97.6 81 18 109/59 (76) 97 05/04/19 20:00 98.0 82 18 108/51 (70) 95 05/04/19 17:35 97.1 78 20 102/61 (75) 95 05/04/19 16:00 97.1 78 20 97/52 (67) 98 05/04/19 16:00 79 Intake and Output 05/04/19 05/05/19 18:59 06:59 Intake Total 737.65 ml Output Total 300 ml Balance -300 ml 737.65 ml Intake IV Total 737.65 ml Output Urine Total 300 ml # Voids 1 2 # Bowel Movements 1 Laboratory Tests Test 05/05/19 05:17 White Blood Count 8.7 K/UL (4.8-10.8) Red Blood Count 3.37 M/UL (4.20-5.40) L Hemoglobin 8.9 G/DL (12.0-16.0) #L Hematocrit 28.2 % (37.0-47.0) L Mean Corpuscular Volume 84 FL (80-99) Mean Corpuscular Hemoglobin 26.5 PG (27.0-31.0) L Mean Corpuscular Hemoglobin Concent 31.6 G/DL (32.0-36.0) L Red Cell Distribution Width 19.5 % (11.6-14.8) H Platelet Count 51 K/UL (150-450) #L Mean Platelet Volume 9.5 FL (6.5-10.1) Neutrophils (%) (Auto) % (45.0-75.0) Lymphocytes (%) (Auto) % (20.0-45.0) Monocytes (%) (Auto) % (1.0-10.0) Eosinophils (%) (Auto) % (0.0-3.0) Basophils (%) (Auto) % (0.0-2.0) Sodium Level 137 MMOL/L (136-145) Potassium Level 3.3 MMOL/L (3.5-5.1) L Chloride Level 107 MMOL/L (98-107) Carbon Dioxide Level 19 MMOL/L (21-32) L Anion Gap 11 mmol/L (5-15) Blood Urea Nitrogen 21 mg/dL (7-18) H Creatinine 1.4 MG/DL (0.55-1.30) H Estimat Glomerular Filtration Rate 38.7 mL/min (>60) Glucose Level 105 MG/DL (74-106) Calcium Level 7.8 MG/DL (8.5-10.1) L Phosphorus Level 2.8 MG/DL (2.5-4.9) Magnesium Level 1.4 MG/DL (1.8-2.4) L Total Bilirubin 3.5 MG/DL (0.2-1.0) H Direct Bilirubin 2.3 MG/DL (0.0-0.3) H Aspartate Amino Transf (AST/SGOT) 20 U/L (15-37) Alanine Aminotransferase (ALT/SGPT) 14 U/L (12-78) Alkaline Phosphatase 227 U/L (46-116) H Total Protein 5.8 G/DL (6.4-8.2) L Albumin 1.2 G/DL (3.4-5.0) L Globulin 4.6 g/dL Albumin/Globulin Ratio 0.3 (1.0-2.7) L Height (Feet): 5 Height (Inches): 3.00 Weight (Pounds): 202 General Appearance: WD/WN, no apparent distress, alert Cardiovascular: normal rate Respiratory/Chest: normal breath sounds, no respiratory distress Abdominal Exam: normal bowel sounds, non tender, soft, ascites Extremities: non-tender Indu Lane [employer] May 05, 2019 12:46
--- NOTE | 2019-05-05 13:02 | Infectious Diseases Prog Note ---
Assessment/Plan Assessment/Plan Abx: Zosyn x1 05/03 Flagyl x 05/03 Assessment: Sepsis- 2ry to GNR Gram negative bacteremia R/o SBP Leukocytosis, SP Fever, improving -05/04 CXR: Mild interstitial congestion. Cardiomegaly -05/03 BCx 2/ GNR -u/a wbc 40-60, nit neg, leuk +3; ucx >100k yeast (colonizer) Abd pain Recurrent ascites - -03/11/19 sp paracentesis:fluid wbc 97 (N 34%) HTN DM Liver Cirrhosis EtOH abuse Plan: -Continue empiric Zosyn #3 pending cultures -03/14 SP Cipro #4 and flagyl #3 -f/u cx -Monitor CBC/CMP, temperatures -Repeat Bcx x2 -plan for paracentesis- send fluid cell count w/ diff and cultures Thank you for this consultation. Will continue to follow along with you. Discussed with RN. Subjective Allergies: Coded Allergies: No Known Allergies (Unverified , 01/31/19) Subjective afebrile > 36hrs no leukocytosis bacteremic Objective Vital Signs Last 24 Hour Vital Signs Date Time Temp Pulse Resp B/P (MAP) Pulse Ox O2 Delivery O2 Flow Rate FiO2 05/05/19 12:00 97.7 79 20 114/63 (80) 99 05/05/19 09:00 Room Air 05/05/19 08:00 98.1 74 18 101/63 (76) 98 05/05/19 04:00 97.4 80 17 105/82 (90) 97 05/05/19 00:00 97.7 83 18 118/60 (79) 97 05/04/19 21:20 Room Air 05/04/19 21:10 97.6 81 18 109/59 (76) 97 05/04/19 20:00 98.0 82 18 108/51 (70) 95 05/04/19 17:35 97.1 78 20 102/61 (75) 95 05/04/19 16:00 97.1 78 20 97/52 (67) 98 05/04/19 16:00 79 Height (Feet): 5 Height (Inches): 3.00 Weight (Pounds): 202 Objective GENERAL: The patient is a well-developed and well-nourished obese female, in moderate abdominal pain and distress. HEENT: Eyes, pupils are equal and responsive to light and accommodation. Extraocular movements are intact. No scleral icterus is noted. CHEST: Lungs are clear to auscultation bilaterally without wheezes or rales. CARDIOVASCULAR: Regular rhythm and rate. S1 and S2 are normal without murmurs, rubs, or gallops. ABDOMEN: Soft, diffusely tender with decreased bowel sounds. No evidence of hepatosplenomegaly. Currently, no rebound or guarding noted. There is no fluid wave present. NEUROLOGICAL: Cranial nerves II through XII are grossly intact without focal deficits. Microbiology Date/Time Source Procedure Growth Status 05/03/19 11:45 Blood Blood Culture - Preliminary Gram Negative Bacillus 1 Resulted 05/03/19 11:30 Blood Blood Culture - Preliminary Gram Negative Bacillus 1 Resulted 05/03/19 13:52 Nasal Nares MRSA Culture - Final NO METHICILLIN RESISTANT STAPH AUREUS... Complete 05/03/19 13:00 Urine,Clean Catch Urine Culture - Preliminary YEAST Resulted 05/03/19 13:52 Rectum - Final NO CARBAPENEM-RESISTANT ENTEROBACTERI... Complete 05/03/19 13:52 Rectum VRE Culture - Final NO VANCOMYCIN RESISTANT ENTEROCOCCUS ... Complete Laboratory Tests Test 05/05/19 05:17 White Blood Count 8.7 K/UL (4.8-10.8) Red Blood Count 3.37 M/UL (4.20-5.40) L Hemoglobin 8.9 G/DL (12.0-16.0) #L Hematocrit 28.2 % (37.0-47.0) L Mean Corpuscular Volume 84 FL (80-99) Mean Corpuscular Hemoglobin 26.5 PG (27.0-31.0) L Mean Corpuscular Hemoglobin Concent 31.6 G/DL (32.0-36.0) L Red Cell Distribution Width 19.5 % (11.6-14.8) H Platelet Count 51 K/UL (150-450) #L Mean Platelet Volume 9.5 FL (6.5-10.1) Neutrophils (%) (Auto) % (45.0-75.0) Lymphocytes (%) (Auto) % (20.0-45.0) Monocytes (%) (Auto) % (1.0-10.0) Eosinophils (%) (Auto) % (0.0-3.0) Basophils (%) (Auto) % (0.0-2.0) Sodium Level 137 MMOL/L (136-145) Potassium Level 3.3 MMOL/L (3.5-5.1) L Chloride Level 107 MMOL/L (98-107) Carbon Dioxide Level 19 MMOL/L (21-32) L Anion Gap 11 mmol/L (5-15) Blood Urea Nitrogen 21 mg/dL (7-18) H Creatinine 1.4 MG/DL (0.55-1.30) H Estimat Glomerular Filtration Rate 38.7 mL/min (>60) Glucose Level 105 MG/DL (74-106) Calcium Level 7.8 MG/DL (8.5-10.1) L Phosphorus Level 2.8 MG/DL (2.5-4.9) Magnesium Level 1.4 MG/DL (1.8-2.4) L Total Bilirubin 3.5 MG/DL (0.2-1.0) H Direct Bilirubin 2.3 MG/DL (0.0-0.3) H Aspartate Amino Transf (AST/SGOT) 20 U/L (15-37) Alanine Aminotransferase (ALT/SGPT) 14 U/L (12-78) Alkaline Phosphatase 227 U/L (46-116) H Total Protein 5.8 G/DL (6.4-8.2) L Albumin 1.2 G/DL (3.4-5.0) L Globulin 4.6 g/dL Albumin/Globulin Ratio 0.3 (1.0-2.7) L Current Medications Medications (Trade) Dose Ordered Sig/Almaz Route PRN Reason Start Time Stop Time Status Last Admin Dose Admin Acetaminophen (Tylenol) 650 mg Q4H PRN ORAL fever 05/04/19 21:15 06/02/19 13:14 Dextrose (Dextrose 50%) 25 ml Q30M PRN IV Hypoglycemia 05/04/19 21:15 06/02/19 13:14 Dextrose (Dextrose 50%) 50 ml Q30M PRN IV Hypoglycemia 05/04/19 21:15 06/02/19 13:14 Dextrose/Sodium Chloride 1,000 ml @ 75 mls/hr [id number] IV 05/04/19 21:00 06/02/19 13:59 05/05/19 11:15 Diphenhydramine HCl (Benadryl) 25 mg Q6H PRN ORAL Itching/Pruritis 05/04/19 21:15 06/03/19 21:14 Furosemide (Lasix) 40 mg EVERY 8 HOURS ORAL 05/04/19 22:00 06/03/19 13:59 05/05/19 05:43 Lactulose (Cephulac) 10 gm THREE TIMES A DAY ORAL 05/05/19 13:00 06/04/19 12:59 Morphine Sulfate (Morphine Sulfate) 2 mg Q4H PRN IVP severe Pain (Pain Scale 7-10) 05/04/19 21:15 05/10/19 13:14 Nitroglycerin (Ntg) 0.4 mg Q5M X 3 DOSES PRN SL Prn Chest Pain 05/04/19 21:00 06/02/19 13:14 Ondansetron HCl (Zofran) 4 mg Q6H PRN IVP Nausea & Vomiting 05/04/19 21:15 06/03/19 21:14 Pantoprazole (Protonix) 40 mg DAILY IVP 05/05/19 09:00 06/03/19 08:59 05/05/19 08:54 Piperacillin Sod/ Tazobactam Sod 3.375 gm/Sodium Chloride 110 ml @ 27.5 mls/hr EVERY 8 HOURS IVPB 05/04/19 22:00 05/09/19 15:29 05/05/19 05:43 Polyethylene Glycol (Miralax) 17 gm HSPRN PRN ORAL Constipation 05/04/19 21:15 06/03/19 21:14 Rifaximin (Xifaxan) 550 mg EVERY 12 HOURS ORAL 05/05/19 21:00 05/12/19 20:59 Sucralfate (Carafate) 1 gm BIAC ORAL 05/05/19 06:30 06/04/19 06:29 05/05/19 05:43 Temazepam (Restoril) 15 mg HSPRN PRN ORAL Insomnia 05/04/19 21:15 05/11/19 21:14 Edyta Hartley M.D. May 05, 2019 13:02
--- NOTE | 2019-05-05 13:19 | Pulmonology Progress Note ---
Assessment/Plan Problems: (1) Bacteremia due to Gram-negative bacteria (2) Acute metabolic encephalopathy (3) Liver cirrhosis (4) Anemia (5) Ascites (6) Anasarca (7) Acute on chronic alcoholic liver disease Assessment/Plan continue abx check cultures prbc prn symptomatic treatment Subjective ROS Limited/Unobtainable: Yes Allergies: Coded Allergies: No Known Allergies (Unverified , 01/31/19) Objective Last 24 Hour Vital Signs Date Time Temp Pulse Resp B/P (MAP) Pulse Ox O2 Delivery O2 Flow Rate FiO2 05/05/19 12:00 97.7 79 20 114/63 (80) 99 05/05/19 09:00 Room Air 05/05/19 08:00 98.1 74 18 101/63 (76) 98 05/05/19 04:00 97.4 80 17 105/82 (90) 97 05/05/19 00:00 97.7 83 18 118/60 (79) 97 05/04/19 21:20 Room Air 05/04/19 21:10 97.6 81 18 109/59 (76) 97 05/04/19 20:00 98.0 82 18 108/51 (70) 95 05/04/19 17:35 97.1 78 20 102/61 (75) 95 05/04/19 16:00 97.1 78 20 97/52 (67) 98 05/04/19 16:00 79 Intake and Output 05/04/19 05/05/19 19:00 07:00 Intake Total 737.65 ml Output Total 300 ml Balance -300 ml 737.65 ml Intake IV Total 737.65 ml Output Urine Total 300 ml # Voids 1 2 # Bowel Movements 1 General Appearance: WD/WN HEENT: normocephalic, anicteric, PERRL Respiratory/Chest: lungs clear Breasts: no masses Cardiovascular: regularly irregular Abdomen: no organomegaly Genitourinary: normal external genitalia Skin: no rash Microbiology Date/Time Source Procedure Growth Status 05/03/19 11:45 Blood Blood Culture - Preliminary Gram Negative Bacillus 1 Resulted 05/03/19 11:30 Blood Blood Culture - Preliminary Gram Negative Bacillus 1 Resulted 05/03/19 13:52 Nasal Nares MRSA Culture - Final NO METHICILLIN RESISTANT STAPH AUREUS... Complete 05/03/19 13:00 Urine,Clean Catch Urine Culture - Preliminary YEAST Resulted 05/03/19 13:52 Rectum - Final NO CARBAPENEM-RESISTANT ENTEROBACTERI... Complete 05/03/19 13:52 Rectum VRE Culture - Final NO VANCOMYCIN RESISTANT ENTEROCOCCUS ... Complete Laboratory Tests 05/05/19 05:17: White Blood Count 8.7, Red Blood Count 3.37L, Hemoglobin 8.9#L, Hematocrit 28.2L , Mean Corpuscular Volume 84, Mean Corpuscular Hemoglobin 26.5L, Mean Corpuscular Hemoglobin Concent 31.6L, Red Cell Distribution Width 19.5H, Platelet Count 51#L, Mean Platelet Volume 9.5, Neutrophils (%) (Auto) , Lymphocytes (%) (Auto) , Monocytes (%) (Auto) , Eosinophils (%) (Auto) , Basophils (%) (Auto) , Sodium Level 137, Potassium Level 3.3L, Chloride Level 107, Carbon Dioxide Level 19L, Anion Gap 11, Blood Urea Nitrogen 21H, Creatinine 1.4H, Estimat Glomerular Filtration Rate 38.7, Glucose Level 105, Calcium Level 7.8L, Phosphorus Level 2.8, Magnesium Level 1.4L, Total Bilirubin 3.5H, Direct Bilirubin 2.3H, Aspartate Amino Transf (AST/SGOT) 20, Alanine Aminotransferase (ALT/SGPT) 14, Alkaline Phosphatase 227H, Total Protein 5.8L, Albumin 1.2L, Globulin 4.6, Albumin/Globulin Ratio 0.3L Current Medications Medications (Trade) Dose Ordered Sig/Almaz Route PRN Reason Start Time Stop Time Status Last Admin Dose Admin Acetaminophen (Tylenol) 650 mg Q4H PRN ORAL fever 05/04/19 21:15 06/02/19 13:14 Dextrose (Dextrose 50%) 25 ml Q30M PRN IV Hypoglycemia 05/04/19 21:15 06/02/19 13:14 Dextrose (Dextrose 50%) 50 ml Q30M PRN IV Hypoglycemia 05/04/19 21:15 06/02/19 13:14 Dextrose/Sodium Chloride 1,000 ml @ 75 mls/hr [id number] IV 05/04/19 21:00 06/02/19 13:59 05/05/19 11:15 Diphenhydramine HCl (Benadryl) 25 mg Q6H PRN ORAL Itching/Pruritis 05/04/19 21:15 06/03/19 21:14 Furosemide (Lasix) 40 mg EVERY 8 HOURS ORAL 05/04/19 22:00 06/03/19 13:59 05/05/19 05:43 Lactulose (Cephulac) 10 gm THREE TIMES A DAY ORAL 05/05/19 13:00 06/04/19 12:59 Morphine Sulfate (Morphine Sulfate) 2 mg Q4H PRN IVP severe Pain (Pain Scale 7-10) 05/04/19 21:15 05/10/19 13:14 Nitroglycerin (Ntg) 0.4 mg Q5M X 3 DOSES PRN SL Prn Chest Pain 05/04/19 21:00 06/02/19 13:14 Ondansetron HCl (Zofran) 4 mg Q6H PRN IVP Nausea & Vomiting 05/04/19 21:15 06/03/19 21:14 Pantoprazole (Protonix) 40 mg DAILY IVP 05/05/19 09:00 06/03/19 08:59 05/05/19 08:54 Piperacillin Sod/ Tazobactam Sod 3.375 gm/Sodium Chloride 110 ml @ 27.5 mls/hr EVERY 8 HOURS IVPB 05/04/19 22:00 05/09/19 15:29 05/05/19 05:43 Polyethylene Glycol (Miralax) 17 gm HSPRN PRN ORAL Constipation 05/04/19 21:15 06/03/19 21:14 Rifaximin (Xifaxan) 550 mg EVERY 12 HOURS ORAL 05/05/19 21:00 05/12/19 20:59 Sucralfate (Carafate) 1 gm BIAC ORAL 05/05/19 06:30 06/04/19 06:29 05/05/19 05:43 Temazepam (Restoril) 15 mg HSPRN PRN ORAL Insomnia 05/04/19 21:15 05/11/19 21:14 Shireen Khan MD May 05, 2019 13:19
[2019-05-05] MEDS: Lactulose 10gm/15ml UDC ORAL SCH ×2 (13:45→17:16)
--- NOTE | 2019-05-05 15:20 | Diagnostic Imaging Report ---
Indications: Ascites Technique: Ultrasound used to localize optimal puncture site. Sterile prepping and draping right lower quadrant. Local anesthesia with 1% lidocaine. Under real-time ultrasound guidance, puncture peritoneal space using paracentesis needle. Stylet removed. Catheter placed to vacuum bottle suction. Total 3.5 liters of clear yellow fluid aspirated. Patient tolerated procedure well, without immediate complication. Findings: Followup sonography demonstrates complete resolution of peritoneal fluid. Impression: Successful ultrasound-guided paracentesis, yielding 3.5 liters of fluid
--- NOTE | 2019-05-05 15:23 | Cardiology Report ---
APPROVED REPORT EKG Measurement Heart [id number] Normal sinus rhythm Left anterior fascicular block Septal infarct, age undetermined T wave abnormality, consider lateral ischemia Abnormal ECG
[2019-05-05 16:00] VITALS: BP 99/44
--- NOTE | 2019-05-05 16:55 | NUR ---
Social Service Note Dr. Khan would like to speak with son regarding treatment plan of care. No return call from yesterday. Message left today during son's available time [phone]. No return call. Will continue to follow up.
[2019-05-05] MEDS: Morphine Sulfate 2mg/ml Inj(IV/IM USE ONLY) IVP PRN ×2 (17:25→21:51)
--- NOTE | 2019-05-05 17:32 | Internal Med Progress Note ---
Subjective Date of Service: May 05, 2019 Physician Name Benjamin,Jose Attending Physician Goldy Amador MD Current Medications Medications (Trade) Dose Ordered Sig/Almaz Route PRN Reason Start Time Stop Time Status Last Admin Dose Admin Acetaminophen (Tylenol) 650 mg Q4H PRN ORAL fever 05/04/19 21:15 06/02/19 13:14 Dextrose (Dextrose 50%) 25 ml Q30M PRN IV Hypoglycemia 05/04/19 21:15 06/02/19 13:14 Dextrose (Dextrose 50%) 50 ml Q30M PRN IV Hypoglycemia 05/04/19 21:15 06/02/19 13:14 Dextrose/Sodium Chloride 1,000 ml @ 75 mls/hr [id number] IV 05/04/19 21:00 06/02/19 13:59 05/05/19 11:15 Diphenhydramine HCl (Benadryl) 25 mg Q6H PRN ORAL Itching/Pruritis 05/04/19 21:15 06/03/19 21:14 Furosemide (Lasix) 40 mg EVERY 8 HOURS ORAL 05/04/19 22:00 06/03/19 13:59 05/05/19 13:46 Lactulose (Cephulac) 10 gm THREE TIMES A DAY ORAL 05/05/19 13:00 06/04/19 12:59 05/05/19 17:16 Morphine Sulfate (Morphine Sulfate) 2 mg Q4H PRN IVP severe Pain (Pain Scale 7-10) 05/04/19 21:15 05/10/19 13:14 05/05/19 17:25 Nitroglycerin (Ntg) 0.4 mg Q5M X 3 DOSES PRN SL Prn Chest Pain 05/04/19 21:00 06/02/19 13:14 Ondansetron HCl (Zofran) 4 mg Q6H PRN IVP Nausea & Vomiting 05/04/19 21:15 06/03/19 21:14 Pantoprazole (Protonix) 40 mg DAILY IVP 05/05/19 09:00 06/03/19 08:59 05/05/19 08:54 Piperacillin Sod/ Tazobactam Sod 3.375 gm/Sodium Chloride 110 ml @ 27.5 mls/hr EVERY 8 HOURS IVPB 05/04/19 22:00 05/09/19 15:29 05/05/19 13:46 Polyethylene Glycol (Miralax) 17 gm HSPRN PRN ORAL Constipation 05/04/19 21:15 06/03/19 21:14 Rifaximin (Xifaxan) 550 mg EVERY 12 HOURS ORAL 05/05/19 21:00 05/12/19 20:59 Sucralfate (Carafate) 1 gm BIAC ORAL 05/05/19 06:30 06/04/19 06:29 05/05/19 17:16 Temazepam (Restoril) 15 mg HSPRN PRN ORAL Insomnia 05/04/19 21:15 05/11/19 21:14 Allergies: Coded Allergies: No Known Allergies (Unverified , 01/31/19) ROS Limited/Unobtainable: No Constitutional: Reports: no symptoms HEENT: Reports: no symptoms Cardiovascular: Reports: no symptoms Respiratory: Reports: no symptoms Gastrointestinal/Abdominal: Reports: no symptoms Genitourinary: Reports: no symptoms Neurologic/Psychiatric: Reports: no symptoms Subjective 58 YO F with H/O hepatic cirrhosis with ascites admitted with abdominal pain. Now UTI. Cover for Int Med-DR Amador Objective Last Vital Signs Date Time Temp Pulse Resp B/P (MAP) Pulse Ox O2 Delivery O2 Flow Rate FiO2 05/05/19 12:00 97.7 79 20 114/63 (80) 99 05/05/19 09:00 Room Air 05/03/19 11:12 2.0 Laboratory Tests Test 05/05/19 05:17 05/05/19 10:31 White Blood Count 8.7 K/UL (4.8-10.8) Red Blood Count 3.37 M/UL (4.20-5.40) L Hemoglobin 8.9 G/DL (12.0-16.0) #L Hematocrit 28.2 % (37.0-47.0) L Mean Corpuscular Volume 84 FL (80-99) Mean Corpuscular Hemoglobin 26.5 PG (27.0-31.0) L Mean Corpuscular Hemoglobin Concent 31.6 G/DL (32.0-36.0) L Red Cell Distribution Width 19.5 % (11.6-14.8) H Platelet Count 51 K/UL (150-450) #L Mean Platelet Volume 9.5 FL (6.5-10.1) Neutrophils (%) (Auto) % (45.0-75.0) Lymphocytes (%) (Auto) % (20.0-45.0) Monocytes (%) (Auto) % (1.0-10.0) Eosinophils (%) (Auto) % (0.0-3.0) Basophils (%) (Auto) % (0.0-2.0) Sodium Level 137 MMOL/L (136-145) Potassium Level 3.3 MMOL/L (3.5-5.1) L Chloride Level 107 MMOL/L (98-107) Carbon Dioxide Level 19 MMOL/L (21-32) L Anion Gap 11 mmol/L (5-15) Blood Urea Nitrogen 21 mg/dL (7-18) H Creatinine 1.4 MG/DL (0.55-1.30) H Estimat Glomerular Filtration Rate 38.7 mL/min (>60) Glucose Level 105 MG/DL (74-106) Calcium Level 7.8 MG/DL (8.5-10.1) L Phosphorus Level 2.8 MG/DL (2.5-4.9) Magnesium Level 1.4 MG/DL (1.8-2.4) L Total Bilirubin 3.5 MG/DL (0.2-1.0) H Direct Bilirubin 2.3 MG/DL (0.0-0.3) H Aspartate Amino Transf (AST/SGOT) 20 U/L (15-37) Alanine Aminotransferase (ALT/SGPT) 14 U/L (12-78) Alkaline Phosphatase 227 U/L (46-116) H Total Protein 5.8 G/DL (6.4-8.2) L Albumin 1.2 G/DL (3.4-5.0) L Globulin 4.6 g/dL Albumin/Globulin Ratio 0.3 (1.0-2.7) L Body Fluid Source Pending Body Fluid Volume Pending Body Fluid Appearance Pending Body Fluid RBC Pending Body Fluid Total Nucleated Cells Pending Body Fluid Polynuclear WBCs (%) Pending Body Fluid Mononuclear WBCs (%) Pending Body Fluid Mesothelial Cells (%) Pending Body Fluid Albumin Pending Microbiology Date/Time Source Procedure Growth Status 05/03/19 11:45 Blood Blood Culture - Preliminary Gram Negative Bacillus 1 Resulted 05/03/19 11:30 Blood Blood Culture - Preliminary Gram Negative Bacillus 1 Resulted 05/03/19 13:52 Nasal Nares MRSA Culture - Final NO METHICILLIN RESISTANT STAPH AUREUS... Complete 05/03/19 13:00 Urine,Clean Catch Urine Culture - Preliminary YEAST Resulted 05/03/19 13:52 Rectum - Final NO CARBAPENEM-RESISTANT ENTEROBACTERI... Complete 05/03/19 13:52 Rectum VRE Culture - Final NO VANCOMYCIN RESISTANT ENTEROCOCCUS ... Complete Intake and Output 05/04/19 05/05/19 19:00 07:00 Intake Total 737.65 ml Output Total 300 ml Balance -300 ml 737.65 ml Intake IV Total 737.65 ml Output Urine Total 300 ml # Voids 1 2 # Bowel Movements 1 Objective PHYSICAL EXAMINATION: GENERAL: The patient is a well-developed and well-nourished obese female, in moderate abdominal pain and distress. HEENT: Eyes, pupils are equal and responsive to light and accommodation. Extraocular movements are intact. No scleral icterus is noted. CHEST: Lungs are clear to auscultation bilaterally without wheezes or rales. CARDIOVASCULAR: Regular rhythm and rate. S1 and S2 are normal without murmurs, rubs, or gallops. ABDOMEN: Soft, diffusely tender with decreased bowel sounds. No evidence of hepatosplenomegaly. Currently, no rebound or guarding noted. There is no fluid wave present. NEUROLOGICAL: Cranial nerves II through XII are grossly intact without focal deficits. Assessment/Plan Assessment/Plan ASSESSMENT: This is a 58-year-old female. 1. Abdominal pain. 2. Nausea with vomiting. 3. Fever. 4. Elevated liver function tests. 5. Urinary tract infection. 6. Hepatic encephalopathy. 7. Alcoholic cirrhosis of the liver. 8. Hypertension. 9. Diabetes type 2. 10. Thrombocytopenia. 11. Ascites. 12. Hypercholesterolemia. 13. Portal hypertension. 14. Severe anemia TREATMENT: 1. Elevated liver function tests/hepatic encephalopathy/alcoholic cirrhosis of the liver. A Gastroenterology consultation has been obtained with Dr. Jon Torres. Continue Prevacid as above. Await paracentesis today. 2. Urinary tract infection. Urine culture is pending. The patient has been started empirically on intravenous Zosyn and metronidazole. 3. Hypertension. The patient is currently hypotensive. 4. Diabetes type 2. A NovoLog sliding scale has been instituted. 5. Thrombocytopenia. This is probably secondary to chronic liver disease. 6. Hepatic encephalopathy. Continue lactulose and Xifaxan as above. 7. Ascites as above. S/P paracentesis 05/05/19 8. Hypercholesterolemia. 9. Portal hypertension. 10. S/P Transfusion 1 unit PRBC 05/04/19 Jose Benjamin MD May 05, 2019 17:32
--- NOTE | 2019-05-05 19:55 | NUR ---
NURSE NOTES: Patient in bed, awake, alert, verbally responsive. IV in place, running IV fluids. No complaints of pain at this time. No s/s distress noted. Bed in lowest position, call light within reach, bed alarm on. Will continue to monitor.
[2019-05-05 20:00] VITALS: BP 115/65
--- NOTE | 2019-05-05 20:05 | NUR ---
HAND-OFF: Report given to Erwin/RN. Patient is awake, in stable condition. Endorsed plan of care.
[2019-05-06] VITALS: BP 143/65
[2019-05-06 04:26] VITALS: BP 107/70
[2019-05-06] MEDS: Piperacillin/Tazobactam 3.375 GM in NS 110 ML IVPB SCH ×3 (05:08→22:39)
[2019-05-06] MEDS: Sucralfate 1gm tab ORAL SCH ×2 (05:42→17:57)
[2019-05-06] MEDS: Furosemide 40mg tab ORAL SCH ×3 (05:42→22:23)
--- NOTE | 2019-05-06 06:00 | NUR ---
NURSE NOTES: PATIENT ASLEEP, V/S STABLE.
[2019-05-06 06:52] LABS: ALANINE AMINOTRANSFERASE 13 U/L (12-78); ALBUMIN 1.1 G/DL (3.4-5.0); ALBUMIN/GLOBULIN RATIO 0.2 (1.0-2.7); ALKALINE PHOSPHATASE 211 U/L (46-116); ANION GAP 11 mmol/L (5-15); ASPARTATE AMINO TRANSFERASE 24 U/L (15-37); BILIRUBIN,TOTAL 3.2 MG/DL (0.2-1.0); BLOOD UREA NITROGEN 18 mg/dL (7-18); CALCIUM 7.5 MG/DL (8.5-10.1); CARBON DIOXIDE 19 MMOL/L (21-32); CHLORIDE 105 MMOL/L (98-107); CREATININE 1.3 MG/DL (0.55-1.30); PHOSPHORUS 3.2 MG/DL (2.5-4.9); POTASSIUM 2.8 MMOL/L (3.5-5.1); SODIUM 135 MMOL/L (136-145)
[2019-05-06 06:58] LABS: BILIRUBIN,DIRECT 1.7 MG/DL (0.0-0.3)
[2019-05-06 07:14] LABS: HEMATOCRIT 31.8 % (37.0-47.0); HEMOGLOBIN 9.8 G/DL (12.0-16.0); MEAN CORPUSCULAR VOLUME 87 FL (80-99); PLATELET COUNT 55 K/UL (150-450); RED BLOOD COUNT 3.64 M/UL (4.20-5.40); RED CELL DISTRIBUTION WIDTH 22.4 % (11.6-14.8); WHITE BLOOD COUNT 6.1 K/UL (4.8-10.8)
--- NOTE | 2019-05-06 07:21 | NUR ---
HAND-OFF: Report given to ARIANE MAGAÑA RN.
--- NOTE | 2019-05-06 07:22 | NUR ---
NURSE NOTES: Received patient awake alert and oriented, lying comfortably in bed. IV at right wrist, 20 gauge, infusing D5 1/2NS @ 75ml/hour. Bed at lowest level with 3 side rails up. Call light within reach. IN no apparent distress at this time. Will continue to monitor.
[2019-05-06 08:00] VITALS: BP 137/72
[2019-05-06] MEDS: Pantoprazole Inj IVP SCH (08:32)
[2019-05-06] MEDS: Lactulose 10gm/15ml UDC ORAL SCH ×3 (08:33→18:00)
[2019-05-06] MEDS: Morphine Sulfate 2mg/ml Inj(IV/IM USE ONLY) IVP PRN ×2 (08:33→20:56)
--- NOTE | 2019-05-06 10:40 | NUR ---
CASE MANAGEMENT:REVIEW 05/06/19 SI: HEPATIC ENCEPHALOPATHY S/P PARACENTESIS ~ 3.5L REMOVED 97.7 81 20 137/72 100% ON RA H/H-9.8/31.8 PLT-55 K-2.8 MAG-1.0 IS: LACTULOSE PO TID IV PROTONIX QD CARAFATE PO BID AC IV ZOSYN Q8HRS LASIX PO Q8HR IVF@75/HR : MED/SURG STATUS 4 EAST DCP: FROM [facility]
[2019-05-06] MEDS: D5 1/2NS 1,000 ML IV SCH (11:45)
[2019-05-06 12:00] VITALS: BP 144/86
--- NOTE | 2019-05-06 12:19 | NUR ---
RD ASSESSMENT & RECOMMENDATIONS SEE CARE ACTIVITY FOR COMPLETE ASSESSMENT DAILY ESTIMATED NEEDS: Needs based on cirrhosis, ascites/ 58kg adj 25-30 kcals/kg [id number] total kcals 1-1.5 g protein/kg 58-87 g total protein Fluid per MD, on lasix NUTRITION DIAGNOSIS: 1) Increased kcal and pro needs r/t wound healing as evidenced by sacral partial thickness wound. 2) Altered nutrition related lab values R/T cirrhosis as evidenced by elev T bili (3.2), w/ ascites, s/ap paracentesis w/ 3.5L removed. CURRENT DIET:Cardiac soft easy chew PO DIET RECOMMENDATIONS: maintain cardiac diet ADDITIONAL RECOMMENDATIONS: * Standing daily wt for accurate CBW- on lasix * Monitor lytes, replete as needed (low K, MG) * Rec NISS- h/o DM * Wound eval noted-> add PAU BID + Vit C 250mg daily * Snack sin b/w meals * Ensure Enlive BID daily w/ poor intake (Glucerna w/ elev BG)
--- NOTE | 2019-05-06 12:26 | Infectious Diseases Prog Note ---
Assessment/Plan Assessment/Plan Abx: Zosyn x1 05/03 Flagyl x 05/03 Assessment: Sepsis- 2ry to GNR Gram negative bacteremia -05/03 BCx 10/04 ACHROMOBACTER XYLOSOXIDANS (S Zosyn, Ceftazidime, bactrim; R cefepime; I imipenem, Levaquin); 05/05 Bcx p R/o SBP -05/05 SP paracentesis: 3.5 L removed wbc 170 (N 49%); cx NTD Leukocytosis, SP Fever, improving -05/04 CXR: Mild interstitial congestion. Cardiomegaly -u/a wbc 40-60, nit neg, leuk +3; ucx >100k yeast (colonizer) Abd pain Recurrent ascites - -03/11/19 sp paracentesis:fluid wbc 97 (N 34%) HTN DM Liver Cirrhosis EtOH abuse Plan: -Continue Zosyn #4/10-14 for gram negative bacteremia -03/14 SP Cipro #4 and flagyl #3 -f/u cx -Monitor CBC/CMP, temperatures -f/u Repeat Bcx x2 Thank you for this consultation. Will continue to follow along with you. Discussed with RN. Subjective Allergies: Coded Allergies: No Known Allergies (Unverified , 01/31/19) Subjective afebrile > 36hrs no leukocytosis bacteremic Objective Vital Signs Last 24 Hour Vital Signs Date Time Temp Pulse Resp B/P (MAP) Pulse Ox O2 Delivery O2 Flow Rate FiO2 05/06/19 09:03 97.8 05/06/19 09:00 Room Air 05/06/19 08:00 97.7 81 20 137/72 (93) 100 05/06/19 04:26 97.8 84 20 107/70 (82) 94 05/06/19 00:00 98.0 83 20 143/65 (91) 96 05/05/19 21:00 Room Air 05/05/19 21:00 Room Air 05/05/19 20:00 98.6 82 20 115/65 (82) 98 05/05/19 16:00 97.4 65 20 99/44 (62) 98 Height (Feet): 5 Height (Inches): 3.00 Weight (Pounds): 202 Objective GENERAL: The patient is a well-developed and well-nourished obese female, in moderate abdominal pain and distress. HEENT: Eyes, pupils are equal and responsive to light and accommodation. Extraocular movements are intact. No scleral icterus is noted. CHEST: Lungs are clear to auscultation bilaterally without wheezes or rales. CARDIOVASCULAR: Regular rhythm and rate. S1 and S2 are normal without murmurs, rubs, or gallops. ABDOMEN: Soft, diffusely tender with decreased bowel sounds. No evidence of hepatosplenomegaly. Currently, no rebound or guarding noted. There is no fluid wave present. NEUROLOGICAL: Cranial nerves II through XII are grossly intact without focal deficits. Microbiology Date/Time Source Procedure Growth Status 05/03/19 13:52 Nasal Nares MRSA Culture - Final NO METHICILLIN RESISTANT STAPH AUREUS... Complete 05/03/19 13:00 Urine,Clean Catch Urine Culture - Final Arlin Albicans Complete 05/05/19 10:31 Abdominal Fluid Gram Stain Pending Resulted 05/05/19 10:31 Abdominal Fluid Body Fluid Culture - Preliminary NO GROWTH Resulted 05/03/19 13:52 Rectum - Final NO CARBAPENEM-RESISTANT ENTEROBACTERI... Complete 05/03/19 13:52 Rectum VRE Culture - Final NO VANCOMYCIN RESISTANT ENTEROCOCCUS ... Complete Laboratory Tests Test 05/06/19 05:45 White Blood Count 6.1 K/UL (4.8-10.8) Red Blood Count 3.64 M/UL (4.20-5.40) L Hemoglobin 9.8 G/DL (12.0-16.0) L Hematocrit 31.8 % (37.0-47.0) L Mean Corpuscular Volume 87 FL (80-99) Mean Corpuscular Hemoglobin 27.0 PG (27.0-31.0) Mean Corpuscular Hemoglobin Concent 30.9 G/DL (32.0-36.0) L Red Cell Distribution Width 22.4 % (11.6-14.8) H Platelet Count 55 K/UL (150-450) L Mean Platelet Volume 8.3 FL (6.5-10.1) Neutrophils (%) (Auto) % (45.0-75.0) Lymphocytes (%) (Auto) % (20.0-45.0) Monocytes (%) (Auto) % (1.0-10.0) Eosinophils (%) (Auto) % (0.0-3.0) Basophils (%) (Auto) % (0.0-2.0) Differential Total Cells Counted 100 Neutrophils % (Manual) 77 % (45-75) H Lymphocytes % (Manual) 14 % (20-45) L Monocytes % (Manual) 4 % (1-10) Eosinophils % (Manual) 5 % (0-3) H Basophils % (Manual) 0 % (0-2) Band Neutrophils 0 % (0-8) Platelet Estimate Decreased L Platelet Morphology Normal Hypochromasia 1+ Anisocytosis 3+ Sodium Level 135 MMOL/L (136-145) L Potassium Level 2.8 MMOL/L (3.5-5.1) L Chloride Level 105 MMOL/L (98-107) Carbon Dioxide Level 19 MMOL/L (21-32) L Anion Gap 11 mmol/L (5-15) Blood Urea Nitrogen 18 mg/dL (7-18) Creatinine 1.3 MG/DL (0.55-1.30) Estimat Glomerular Filtration Rate 42.2 mL/min (>60) Glucose Level 90 MG/DL (74-106) Calcium Level 7.5 MG/DL (8.5-10.1) L Phosphorus Level 3.2 MG/DL (2.5-4.9) Magnesium Level 1.0 MG/DL (1.8-2.4) L Total Bilirubin 3.2 MG/DL (0.2-1.0) H Direct Bilirubin 1.7 MG/DL (0.0-0.3) H Aspartate Amino Transf (AST/SGOT) 24 U/L (15-37) Alanine Aminotransferase (ALT/SGPT) 13 U/L (12-78) Alkaline Phosphatase 211 U/L (46-116) H Total Protein 5.6 G/DL (6.4-8.2) L Albumin 1.1 G/DL (3.4-5.0) L Globulin 4.5 g/dL Albumin/Globulin Ratio 0.2 (1.0-2.7) L Current Medications Medications (Trade) Dose Ordered Sig/Almaz Route PRN Reason Start Time Stop Time Status Last Admin Dose Admin Acetaminophen (Tylenol) 650 mg Q4H PRN ORAL fever 05/04/19 21:15 06/02/19 13:14 Dextrose (Dextrose 50%) 25 ml Q30M PRN IV Hypoglycemia 05/04/19 21:15 06/02/19 13:14 Dextrose (Dextrose 50%) 50 ml Q30M PRN IV Hypoglycemia 05/04/19 21:15 06/02/19 13:14 Dextrose/Sodium Chloride 1,000 ml @ 75 mls/hr [id number] IV 05/04/19 21:00 06/02/19 13:59 05/06/19 11:45 Diphenhydramine HCl (Benadryl) 25 mg Q6H PRN ORAL Itching/Pruritis 05/04/19 21:15 06/03/19 21:14 05/06/19 11:39 Furosemide (Lasix) 40 mg EVERY 8 HOURS ORAL 05/04/19 22:00 06/03/19 13:59 05/06/19 05:42 Lactulose (Cephulac) 10 gm THREE TIMES A DAY ORAL 05/05/19 13:00 06/04/19 12:59 05/06/19 12:13 Morphine Sulfate (Morphine Sulfate) 2 mg Q4H PRN IVP severe Pain (Pain Scale 7-10) 05/04/19 21:15 05/10/19 13:14 05/06/19 08:33 Nitroglycerin (Ntg) 0.4 mg Q5M X 3 DOSES PRN SL Prn Chest Pain 05/04/19 21:00 06/02/19 13:14 Ondansetron HCl (Zofran) 4 mg Q6H PRN IVP Nausea & Vomiting 05/04/19 21:15 06/03/19 21:14 Pantoprazole (Protonix) 40 mg DAILY IVP 05/05/19 09:00 06/03/19 08:59 05/06/19 08:32 Piperacillin Sod/ Tazobactam Sod 3.375 gm/Sodium Chloride 110 ml @ 27.5 mls/hr EVERY 8 HOURS IVPB 05/04/19 22:00 05/09/19 15:29 05/06/19 05:08 Polyethylene Glycol (Miralax) 17 gm HSPRN PRN ORAL Constipation 05/04/19 21:15 06/03/19 21:14 Rifaximin (Xifaxan) 550 mg EVERY 12 HOURS ORAL 05/05/19 21:00 05/12/19 20:59 05/06/19 08:33 Sucralfate (Carafate) 1 gm BIAC ORAL 05/05/19 06:30 06/04/19 06:29 05/06/19 05:42 Temazepam (Restoril) 15 mg HSPRN PRN ORAL Insomnia 05/04/19 21:15 05/11/19 21:14 Edyta Hartley M.D. May 06, 2019 12:26
--- NOTE | 2019-05-06 13:43 | GI Progress Note ---
Assessment/Plan Problems: (1) ETOH abuse ICD Codes: F10.10 - Alcohol abuse, uncomplicated SNOMED: 06663642 (2) Acute metabolic encephalopathy ICD Codes: G93.41 - Metabolic encephalopathy SNOMED: 22470461, 483256998 (3) Liver cirrhosis ICD Codes: K74.60 - Unspecified cirrhosis of liver SNOMED: 55252614 (4) Abdominal pain ICD Codes: R10.9 - Unspecified abdominal pain SNOMED: 78234672 (5) Acute on chronic alcoholic liver disease ICD Codes: K70.9 - Alcoholic liver disease, unspecified SNOMED: 007176009 (6) Anemia ICD Codes: D64.9 - Anemia, unspecified SNOMED: 541063170 (7) Ascites ICD Codes: R18.8 - Other ascites SNOMED: 735949756 Status: stable Status Narrative Discussed with Dr. Torres. Assessment/Plan Status post EGD on April 22, 2019. No noted gastric or esophageal varices at that time. Portal hypertensive gastropathy. s/p paracentesis with approximate 3L output cardiac soft diet Monitor H&H, PRN transfusions. PPI plus Carafate twice daily given history of recent gastric ulcer Zofran as needed Follow labs dc planning The patient was seen and examined at bedside and all new and available data was reviewed in the patients chart. I agree with the above findings, impression and plan. (Patient seen earlier today. Signature stamp does not reflect patient encounter time.). - Jon Torres MD Subjective Gastrointestinal/Abdominal: Reports: no symptoms Objective Last 24 Hour Vital Signs Date Time Temp Pulse Resp B/P (MAP) Pulse Ox O2 Delivery O2 Flow Rate FiO2 05/06/19 12:00 97.6 69 19 144/86 (105) 97 05/06/19 09:03 97.8 05/06/19 09:00 Room Air 05/06/19 08:00 97.7 81 20 137/72 (93) 100 05/06/19 04:26 97.8 84 20 107/70 (82) 94 05/06/19 00:00 98.0 83 20 143/65 (91) 96 05/05/19 21:00 Room Air 05/05/19 21:00 Room Air 05/05/19 20:00 98.6 82 20 115/65 (82) 98 05/05/19 16:00 97.4 65 20 99/44 (62) 98 Intake and Output 05/05/19 05/06/19 18:59 06:59 Intake Total 240 ml 737.5 ml Balance 240 ml 737.5 ml Intake Oral 240 ml IV Total 737.5 ml # Voids 1 4 Laboratory Tests Test 05/06/19 05:45 White Blood Count 6.1 K/UL (4.8-10.8) Red Blood Count 3.64 M/UL (4.20-5.40) L Hemoglobin 9.8 G/DL (12.0-16.0) L Hematocrit 31.8 % (37.0-47.0) L Mean Corpuscular Volume 87 FL (80-99) Mean Corpuscular Hemoglobin 27.0 PG (27.0-31.0) Mean Corpuscular Hemoglobin Concent 30.9 G/DL (32.0-36.0) L Red Cell Distribution Width 22.4 % (11.6-14.8) H Platelet Count 55 K/UL (150-450) L Mean Platelet Volume 8.3 FL (6.5-10.1) Neutrophils (%) (Auto) % (45.0-75.0) Lymphocytes (%) (Auto) % (20.0-45.0) Monocytes (%) (Auto) % (1.0-10.0) Eosinophils (%) (Auto) % (0.0-3.0) Basophils (%) (Auto) % (0.0-2.0) Differential Total Cells Counted 100 Neutrophils % (Manual) 77 % (45-75) H Lymphocytes % (Manual) 14 % (20-45) L Monocytes % (Manual) 4 % (1-10) Eosinophils % (Manual) 5 % (0-3) H Basophils % (Manual) 0 % (0-2) Band Neutrophils 0 % (0-8) Platelet Estimate Decreased L Platelet Morphology Normal Hypochromasia 1+ Anisocytosis 3+ Sodium Level 135 MMOL/L (136-145) L Potassium Level 2.8 MMOL/L (3.5-5.1) L Chloride Level 105 MMOL/L (98-107) Carbon Dioxide Level 19 MMOL/L (21-32) L Anion Gap 11 mmol/L (5-15) Blood Urea Nitrogen 18 mg/dL (7-18) Creatinine 1.3 MG/DL (0.55-1.30) Estimat Glomerular Filtration Rate 42.2 mL/min (>60) Glucose Level 90 MG/DL (74-106) Calcium Level 7.5 MG/DL (8.5-10.1) L Phosphorus Level 3.2 MG/DL (2.5-4.9) Magnesium Level 1.0 MG/DL (1.8-2.4) L Total Bilirubin 3.2 MG/DL (0.2-1.0) H Direct Bilirubin 1.7 MG/DL (0.0-0.3) H Aspartate Amino Transf (AST/SGOT) 24 U/L (15-37) Alanine Aminotransferase (ALT/SGPT) 13 U/L (12-78) Alkaline Phosphatase 211 U/L (46-116) H Total Protein 5.6 G/DL (6.4-8.2) L Albumin 1.1 G/DL (3.4-5.0) L Globulin 4.5 g/dL Albumin/Globulin Ratio 0.2 (1.0-2.7) L Height (Feet): 5 Height (Inches): 3.00 Weight (Pounds): 202 General Appearance: WD/WN, no apparent distress, alert Cardiovascular: normal rate Respiratory/Chest: normal breath sounds, no respiratory distress Abdominal Exam: normal bowel sounds, non tender, soft, ascites Extremities: normal range of motion, non-tender Indu Lane NP May 06, 2019 13:43
--- NOTE | 2019-05-06 13:53 | Pulmonology Progress Note ---
Assessment/Plan Problems: (1) Bacteremia due to Gram-negative bacteria (2) Acute metabolic encephalopathy (3) Liver cirrhosis (4) Anemia (5) Ascites (6) Anasarca (7) Acute on chronic alcoholic liver disease Assessment/Plan continue abx, Zosy check cultures, reviewed prbc prn symptomatic treatment dc probably in 1-2 days Subjective ROS Limited/Unobtainable: No Constitutional: Reports: no symptoms HEENT: Repors: no symptoms Respiratory: Reports: no symptoms Allergies: Coded Allergies: No Known Allergies (Unverified , 01/31/19) Objective Last 24 Hour Vital Signs Date Time Temp Pulse Resp B/P (MAP) Pulse Ox O2 Delivery O2 Flow Rate FiO2 05/06/19 12:00 97.6 69 19 144/86 (105) 97 05/06/19 09:03 97.8 05/06/19 09:00 Room Air 05/06/19 08:00 97.7 81 20 137/72 (93) 100 05/06/19 04:26 97.8 84 20 107/70 (82) 94 05/06/19 00:00 98.0 83 20 143/65 (91) 96 05/05/19 21:00 Room Air 05/05/19 21:00 Room Air 05/05/19 20:00 98.6 82 20 115/65 (82) 98 05/05/19 16:00 97.4 65 20 99/44 (62) 98 Intake and Output 05/05/19 05/06/19 18:59 06:59 Intake Total 240 ml 737.5 ml Balance 240 ml 737.5 ml Intake Oral 240 ml IV Total 737.5 ml # Voids 1 4 General Appearance: WD/WN HEENT: normocephalic, atraumatic Respiratory/Chest: chest wall non-tender, lungs clear, normal breath sounds Cardiovascular: normal peripheral pulses, normal rate Abdomen: normal bowel sounds, no organomegaly, no scars Skin: no rash Microbiology Date/Time Source Procedure Growth Status 05/05/19 10:31 Abdominal Fluid Gram Stain - Final Resulted 05/05/19 10:31 Abdominal Fluid Body Fluid Culture - Preliminary NO GROWTH Resulted Laboratory Tests 05/06/19 05:45: White Blood Count 6.1, Red Blood Count 3.64L, Hemoglobin 9.8L, Hematocrit 31.8L , Mean Corpuscular Volume 87, Mean Corpuscular Hemoglobin 27.0, Mean Corpuscular Hemoglobin Concent 30.9L, Red Cell Distribution Width 22.4H, Platelet Count 55L, Mean Platelet Volume 8.3, Neutrophils (%) (Auto) , Lymphocytes (%) (Auto) , Monocytes (%) (Auto) , Eosinophils (%) (Auto) , Basophils (%) (Auto) , Differential Total Cells Counted 100, Neutrophils % ( Manual) 77H, Lymphocytes % (Manual) 14L, Monocytes % (Manual) 4, Eosinophils % ( Manual) 5H, Basophils % (Manual) 0, Band Neutrophils 0, Platelet Estimate DecreasedL, Platelet Morphology Normal, Hypochromasia 1+, Anisocytosis 3+, Sodium Level 135L, Potassium Level 2.8L, Chloride Level 105, Carbon Dioxide Level 19L, Anion Gap 11, Blood Urea Nitrogen 18, Creatinine 1.3, Estimat Glomerular Filtration Rate 42.2, Glucose Level 90, Calcium Level 7.5L, Phosphorus Level 3.2, Magnesium Level 1.0L, Total Bilirubin 3.2H, Direct Bilirubin 1.7H, Aspartate Amino Transf (AST/SGOT) 24, Alanine Aminotransferase ( ALT/SGPT) 13, Alkaline Phosphatase 211H, Total Protein 5.6L, Albumin 1.1L, Globulin 4.5, Albumin/Globulin Ratio 0.2L Current Medications Medications (Trade) Dose Ordered Sig/Almaz Route PRN Reason Start Time Stop Time Status Last Admin Dose Admin Acetaminophen (Tylenol) 650 mg Q4H PRN ORAL fever 05/04/19 21:15 06/02/19 13:14 Dextrose (Dextrose 50%) 25 ml Q30M PRN IV Hypoglycemia 05/04/19 21:15 06/02/19 13:14 Dextrose (Dextrose 50%) 50 ml Q30M PRN IV Hypoglycemia 05/04/19 21:15 06/02/19 13:14 Dextrose/Sodium Chloride 1,000 ml @ 75 mls/hr [id number] IV 05/04/19 21:00 06/02/19 13:59 05/06/19 11:45 Diphenhydramine HCl (Benadryl) 25 mg Q6H PRN ORAL Itching/Pruritis 05/04/19 21:15 06/03/19 21:14 05/06/19 11:39 Furosemide (Lasix) 40 mg EVERY 8 HOURS ORAL 05/04/19 22:00 06/03/19 13:59 05/06/19 05:42 Lactulose (Cephulac) 10 gm THREE TIMES A DAY ORAL 05/05/19 13:00 06/04/19 12:59 05/06/19 12:13 Morphine Sulfate (Morphine Sulfate) 2 mg Q4H PRN IVP severe Pain (Pain Scale 7-10) 05/04/19 21:15 05/10/19 13:14 05/06/19 08:33 Nitroglycerin (Ntg) 0.4 mg Q5M X 3 DOSES PRN SL Prn Chest Pain 05/04/19 21:00 06/02/19 13:14 Ondansetron HCl (Zofran) 4 mg Q6H PRN IVP Nausea & Vomiting 05/04/19 21:15 06/03/19 21:14 Pantoprazole (Protonix) 40 mg DAILY IVP 05/05/19 09:00 06/03/19 08:59 05/06/19 08:32 Piperacillin Sod/ Tazobactam Sod 3.375 gm/Sodium Chloride 110 ml @ 27.5 mls/hr EVERY 8 HOURS IVPB 05/04/19 22:00 05/09/19 15:29 05/06/19 05:08 Polyethylene Glycol (Miralax) 17 gm HSPRN PRN ORAL Constipation 05/04/19 21:15 06/03/19 21:14 Rifaximin (Xifaxan) 550 mg EVERY 12 HOURS ORAL 05/05/19 21:00 05/12/19 20:59 05/06/19 08:33 Sucralfate (Carafate) 1 gm BIAC ORAL 05/05/19 06:30 06/04/19 06:29 05/06/19 05:42 Temazepam (Restoril) 15 mg HSPRN PRN ORAL Insomnia 05/04/19 21:15 05/11/19 21:14 Shireen Khan MD May 06, 2019 13:53
[2019-05-06 16:00] VITALS: BP 134/67
--- NOTE | 2019-05-06 16:40 | Internal Med Progress Note ---
Subjective Physician Name Goldy Amador Attending Physician Goldy Amador MD Current Medications Medications (Trade) Dose Ordered Sig/Almaz Route PRN Reason Start Time Stop Time Status Last Admin Dose Admin Acetaminophen (Tylenol) 650 mg Q4H PRN ORAL fever 05/04/19 21:15 06/02/19 13:14 Dextrose (Dextrose 50%) 25 ml Q30M PRN IV Hypoglycemia 05/04/19 21:15 06/02/19 13:14 Dextrose (Dextrose 50%) 50 ml Q30M PRN IV Hypoglycemia 05/04/19 21:15 06/02/19 13:14 Dextrose/Sodium Chloride 1,000 ml @ 75 mls/hr [id number] IV 05/04/19 21:00 06/02/19 13:59 05/06/19 11:45 Diphenhydramine HCl (Benadryl) 25 mg Q6H PRN ORAL Itching/Pruritis 05/04/19 21:15 06/03/19 21:14 05/06/19 11:39 Furosemide (Lasix) 40 mg EVERY 8 HOURS ORAL 05/04/19 22:00 06/03/19 13:59 05/06/19 14:41 Lactulose (Cephulac) 10 gm THREE TIMES A DAY ORAL 05/05/19 13:00 06/04/19 12:59 05/06/19 12:13 Morphine Sulfate (Morphine Sulfate) 2 mg Q4H PRN IVP severe Pain (Pain Scale 7-10) 05/04/19 21:15 05/10/19 13:14 05/06/19 08:33 Nitroglycerin (Ntg) 0.4 mg Q5M X 3 DOSES PRN SL Prn Chest Pain 05/04/19 21:00 06/02/19 13:14 Ondansetron HCl (Zofran) 4 mg Q6H PRN IVP Nausea & Vomiting 05/04/19 21:15 06/03/19 21:14 Pantoprazole (Protonix) 40 mg DAILY IVP 05/05/19 09:00 06/03/19 08:59 05/06/19 08:32 Piperacillin Sod/ Tazobactam Sod 3.375 gm/Sodium Chloride 110 ml @ 27.5 mls/hr EVERY 8 HOURS IVPB 05/04/19 22:00 05/09/19 15:29 05/06/19 14:42 Polyethylene Glycol (Miralax) 17 gm HSPRN PRN ORAL Constipation 05/04/19 21:15 06/03/19 21:14 Rifaximin (Xifaxan) 550 mg EVERY 12 HOURS ORAL 05/05/19 21:00 05/12/19 20:59 05/06/19 08:33 Sucralfate (Carafate) 1 gm BIAC ORAL 05/05/19 06:30 06/04/19 06:29 05/06/19 05:42 Temazepam (Restoril) 15 mg HSPRN PRN ORAL Insomnia 05/04/19 21:15 05/11/19 21:14 Allergies: Coded Allergies: No Known Allergies (Unverified , 01/31/19) Subjective Awake, alert, responsive, complaining about abdominal pain and back pain, denies any nausea or vomiting. Objective Last Vital Signs Date Time Temp Pulse Resp B/P (MAP) Pulse Ox O2 Delivery O2 Flow Rate FiO2 05/06/19 12:00 97.6 69 19 144/86 (105) 97 05/06/19 09:00 Room Air 05/03/19 11:12 2.0 Laboratory Tests Test 05/06/19 05:45 White Blood Count 6.1 K/UL (4.8-10.8) Red Blood Count 3.64 M/UL (4.20-5.40) L Hemoglobin 9.8 G/DL (12.0-16.0) L Hematocrit 31.8 % (37.0-47.0) L Mean Corpuscular Volume 87 FL (80-99) Mean Corpuscular Hemoglobin 27.0 PG (27.0-31.0) Mean Corpuscular Hemoglobin Concent 30.9 G/DL (32.0-36.0) L Red Cell Distribution Width 22.4 % (11.6-14.8) H Platelet Count 55 K/UL (150-450) L Mean Platelet Volume 8.3 FL (6.5-10.1) Neutrophils (%) (Auto) % (45.0-75.0) Lymphocytes (%) (Auto) % (20.0-45.0) Monocytes (%) (Auto) % (1.0-10.0) Eosinophils (%) (Auto) % (0.0-3.0) Basophils (%) (Auto) % (0.0-2.0) Differential Total Cells Counted 100 Neutrophils % (Manual) 77 % (45-75) H Lymphocytes % (Manual) 14 % (20-45) L Monocytes % (Manual) 4 % (1-10) Eosinophils % (Manual) 5 % (0-3) H Basophils % (Manual) 0 % (0-2) Band Neutrophils 0 % (0-8) Platelet Estimate Decreased L Platelet Morphology Normal Hypochromasia 1+ Anisocytosis 3+ Sodium Level 135 MMOL/L (136-145) L Potassium Level 2.8 MMOL/L (3.5-5.1) L Chloride Level 105 MMOL/L (98-107) Carbon Dioxide Level 19 MMOL/L (21-32) L Anion Gap 11 mmol/L (5-15) Blood Urea Nitrogen 18 mg/dL (7-18) Creatinine 1.3 MG/DL (0.55-1.30) Estimat Glomerular Filtration Rate 42.2 mL/min (>60) Glucose Level 90 MG/DL (74-106) Calcium Level 7.5 MG/DL (8.5-10.1) L Phosphorus Level 3.2 MG/DL (2.5-4.9) Magnesium Level 1.0 MG/DL (1.8-2.4) L Total Bilirubin 3.2 MG/DL (0.2-1.0) H Direct Bilirubin 1.7 MG/DL (0.0-0.3) H Aspartate Amino Transf (AST/SGOT) 24 U/L (15-37) Alanine Aminotransferase (ALT/SGPT) 13 U/L (12-78) Alkaline Phosphatase 211 U/L (46-116) H Total Protein 5.6 G/DL (6.4-8.2) L Albumin 1.1 G/DL (3.4-5.0) L Globulin 4.5 g/dL Albumin/Globulin Ratio 0.2 (1.0-2.7) L Microbiology Date/Time Source Procedure Growth Status 05/05/19 10:31 Abdominal Fluid Gram Stain - Final Resulted 05/05/19 10:31 Abdominal Fluid Body Fluid Culture - Preliminary NO GROWTH Resulted Intake and Output 05/05/19 05/06/19 19:00 07:00 Intake Total 240 ml 737.5 ml Balance 240 ml 737.5 ml Intake Oral 240 ml IV Total 737.5 ml # Voids 1 4 Objective General: No acute distress, awake and alert HEENT: NCAT, sclera anicteric, PERRL, EOMI. Neck: Supple, no significant jugular venous distention, Lungs: Good inspiratory effort, no accessory muscle use, clear to auscultation bilaterally, no Wheeze or Rales. Heart: Regular rate and rhythm, normal S1/S2, no murmurs Abdomen: soft, nontender, + Distended. Normoactive bowel sounds, Morbid Obesity. Extremities: No Cyanosis , clubbing +2 LE's edema. Neuro: A&O x 3, Able to move all extremities Skin: warm, no rash Assessment/Plan Assessment/Plan Sepsis / bacteremia -05/03 BCx 10/04 ACHROMOBACTER XYLOSOXIDANS (S Zosyn, Ceftazidime, bactrim; R cefepime; I imipenem, Levaquin); 05/05 Bcx p Possible SBP -05/05 SP paracentesis: 3.5 L removed wbc 170 (N 49%); cx NTD Leukocytosis, SP Fever, improving -05/04 CXR: Mild interstitial congestion. Cardiomegaly -u/a wbc 40-60, nit neg, leuk +3; ucx >100k yeast (colonizer) Abd pain Recurrent ascites - -03/11/19 sp paracentesis:fluid wbc 97 (N 34%) HTN DM Liver Cirrhosis EtOH abuse Plan: Antibiotics: Zosyn IV Follow-up with the labs and culture. PT mobility. DVT prophylaxis with SCD. CODE STATUS is full code. Goldy Amador MD May 06, 2019 16:40
--- NOTE | 2019-05-06 19:29 | NUR ---
HAND-OFF: Report given to NAVA Garrett.
[2019-05-06 20:00] VITALS: BP 136/90
--- NOTE | 2019-05-06 20:00 | NUR ---
NURSE NOTES: RECEIVED PATIENT LYING IN BED, AWAKE, ALERT/ORIENTED X4, SUDANESE SPEAKING, COMPLAINT OF ABDOMINAL PAIN/04/09, REVIEWED PRN MEDICATION WITH PATIENT, CN NOTIFIED OF PAIN STATUS. NO SIGNS AND SYMPTOMS OF ACUTE CARDIO RESPIRATORY DISTRESS/SHORTNESS OF BREATH, NO PERIPHERAL EDEMA NOTED. ABDOMEN SOFT/DISTENDED, S/P PARACENTESIS/REMOVED 3.5L/BANDAGE NOTED TO RIGHT LOWER ABDOMEN/NO STAIN. SIDE RAILS UP X3/BED IN LOWEST POSITION FOR SAFETY. CALL LIGHT WITHIN REACH. NAD.
[2019-05-07] VITALS (7 sets, daily range): BP systolic 117–151; BP diastolic 70–88
[2019-05-07] MEDS: Piperacillin/Tazobactam 3.375 GM in NS 110 ML IVPB SCH ×3 (05:04→21:59)
[2019-05-07] MEDS: D5 1/2NS 1,000 ML IV SCH (05:07)
--- NOTE | 2019-05-07 06:31 | NUR ---
NURSE NOTES: RESTED WELL, NO SIGNIFICANT CHANGE OF CONDITION NOTED THROUGHOUT THE NIGHT. SAFETY MAINTAINED,. NAD.
[2019-05-07] MEDS: Sucralfate 1gm tab ORAL SCH ×2 (06:34→16:35)
[2019-05-07] MEDS: Furosemide 40mg tab ORAL SCH ×3 (06:34→21:59)
[2019-05-07 06:42] LABS: HEMATOCRIT 31.5 % (37.0-47.0); HEMOGLOBIN 9.8 G/DL (12.0-16.0); MEAN CORPUSCULAR VOLUME 86 FL (80-99); PLATELET COUNT 68 K/UL (150-450); RED BLOOD COUNT 3.67 M/UL (4.20-5.40); RED CELL DISTRIBUTION WIDTH 22.4 % (11.6-14.8); WHITE BLOOD COUNT 5.1 K/UL (4.8-10.8)
[2019-05-07 06:58] LABS: ANION GAP 12 mmol/L (5-15); BLOOD UREA NITROGEN 15 mg/dL (7-18); CALCIUM 7.3 MG/DL (8.5-10.1); CARBON DIOXIDE 21 MMOL/L (21-32); CHLORIDE 107 MMOL/L (98-107); CREATININE 1.2 MG/DL (0.55-1.30); SODIUM 140 MMOL/L (136-145)
--- NOTE | 2019-05-07 07:19 | Pulmonology Progress Note ---
Assessment/Plan Problems: (1) Bacteremia due to Gram-negative bacteria (2) Acute metabolic encephalopathy (3) Liver cirrhosis (4) Anemia (5) Ascites (6) Anasarca (7) Acute on chronic alcoholic liver disease Assessment/Plan doing better continue abx, Zosy check cultures, reviewed prbc prn symptomatic treatment dc probably in 1-2 days Subjective ROS Limited/Unobtainable: No Constitutional: Reports: no symptoms HEENT: Repors: no symptoms Allergies: Coded Allergies: No Known Allergies (Unverified , 01/31/19) Objective Last 24 Hour Vital Signs Date Time Temp Pulse Resp B/P (MAP) Pulse Ox O2 Delivery O2 Flow Rate FiO2 05/07/19 04:00 97.1 87 20 151/88 (109) 96 05/07/19 01:19 98.0 83 19 145/83 (103) 96 05/07/19 00:00 98.0 83 19 145/83 (103) 96 05/06/19 21:26 97.9 05/06/19 21:00 Room Air 05/06/19 20:00 97.9 82 18 136/90 (105) 96 05/06/19 16:00 97.6 78 17 134/67 (89) 100 05/06/19 12:00 97.6 69 19 144/86 (105) 97 05/06/19 09:00 Room Air 05/06/19 08:00 97.7 81 20 137/72 (93) 100 Intake and Output 05/06/19 05/07/19 19:00 07:00 Intake Total 27.5 ml 530.0 ml Balance 27.5 ml 530.0 ml Intake Oral 420 ml IV Total 27.5 ml 110.0 ml # Voids 5 General Appearance: cachetic HEENT: normocephalic, atraumatic Respiratory/Chest: chest wall non-tender, lungs clear, normal breath sounds Breasts: no masses Cardiovascular: normal peripheral pulses Abdomen: normal bowel sounds, non distended Genitourinary: normal external genitalia Extremities: no clubbing Skin: no rash Microbiology Date/Time Source Procedure Growth Status 05/05/19 14:56 Blood Blood Culture - Preliminary NO GROWTH AFTER 24 HOURS Resulted 05/05/19 14:50 Blood Blood Culture - Preliminary NO GROWTH AFTER 24 HOURS Resulted 05/05/19 10:31 Abdominal Fluid Gram Stain - Final Resulted 05/05/19 10:31 Abdominal Fluid Body Fluid Culture - Preliminary NO GROWTH AFTER 48 HOURS Resulted Laboratory Tests 05/07/19 06:15: White Blood Count 5.1, Red Blood Count 3.67L, Hemoglobin 9.8L, Hematocrit 31.5L , Mean Corpuscular Volume 86, Mean Corpuscular Hemoglobin 26.7L, Mean Corpuscular Hemoglobin Concent 31.1L, Red Cell Distribution Width 22.4H, Platelet Count 68L, Mean Platelet Volume 9.9, Neutrophils (%) (Auto) , Lymphocytes (%) (Auto) , Monocytes (%) (Auto) , Eosinophils (%) (Auto) , Basophils (%) (Auto) , Neutrophils % (Manual) [Pending], Lymphocytes % (Manual) [Pending], Platelet Estimate [Pending], Platelet Morphology [Pending], Sodium Level 140, Potassium Level 3.0L, Chloride Level 107, Carbon Dioxide Level 21, Anion Gap 12, Blood Urea Nitrogen 15, Creatinine 1.2, Estimat Glomerular Filtration Rate 46.3, Glucose Level 112H, Calcium Level 7.3L Current Medications Medications (Trade) Dose Ordered Sig/Almaz Route PRN Reason Start Time Stop Time Status Last Admin Dose Admin Acetaminophen (Tylenol) 650 mg Q4H PRN ORAL fever 05/04/19 21:15 06/02/19 13:14 Dextrose (Dextrose 50%) 25 ml Q30M PRN IV Hypoglycemia 05/04/19 21:15 06/02/19 13:14 Dextrose (Dextrose 50%) 50 ml Q30M PRN IV Hypoglycemia 05/04/19 21:15 06/02/19 13:14 Dextrose/Sodium Chloride 1,000 ml @ 75 mls/hr [id number] IV 05/04/19 21:00 06/02/19 13:59 05/07/19 05:07 Diphenhydramine HCl (Benadryl) 25 mg Q6H PRN ORAL Itching/Pruritis 05/04/19 21:15 06/03/19 21:14 05/06/19 11:39 Furosemide (Lasix) 40 mg EVERY 8 HOURS ORAL 05/04/19 22:00 06/03/19 13:59 05/07/19 06:34 Lactulose (Cephulac) 10 gm THREE TIMES A DAY ORAL 05/05/19 13:00 06/04/19 12:59 05/06/19 12:13 Morphine Sulfate (Morphine Sulfate) 2 mg Q4H PRN IVP severe Pain (Pain Scale 7-10) 05/04/19 21:15 05/10/19 13:14 05/06/19 20:56 Nitroglycerin (Ntg) 0.4 mg Q5M X 3 DOSES PRN SL Prn Chest Pain 05/04/19 21:00 06/02/19 13:14 Ondansetron HCl (Zofran) 4 mg Q6H PRN IVP Nausea & Vomiting 05/04/19 21:15 06/03/19 21:14 Pantoprazole (Protonix) 40 mg DAILY IVP 05/05/19 09:00 06/03/19 08:59 05/06/19 08:32 Piperacillin Sod/ Tazobactam Sod 3.375 gm/Sodium Chloride 110 ml @ 27.5 mls/hr EVERY 8 HOURS IVPB 05/04/19 22:00 05/09/19 15:29 05/07/19 05:04 Polyethylene Glycol (Miralax) 17 gm HSPRN PRN ORAL Constipation 05/04/19 21:15 06/03/19 21:14 Rifaximin (Xifaxan) 550 mg EVERY 12 HOURS ORAL 05/05/19 21:00 05/12/19 20:59 05/06/19 20:17 Sucralfate (Carafate) 1 gm BIAC ORAL 05/05/19 06:30 06/04/19 06:29 05/07/19 06:34 Temazepam (Restoril) 15 mg HSPRN PRN ORAL Insomnia 05/04/19 21:15 05/11/19 21:14 Shireen Khan MD May 07, 2019 07:19
--- NOTE | 2019-05-07 07:43 | NUR ---
NURSE NOTES: received report from NAVA Helms. patient in bed, alert, oriented. verbally responsive. no respiratory distress noted. no pain at this time. bed rest. purewick for bladder incontinent. IV on Right wrist saline lock. potassium 3.0 this morning. notified barbara Lamas and received order k dur [id number] once and dc d51/2 ns@75. bed in the lowest position and locked. call light within reach. will continue to provide plan of care.
[2019-05-07] MEDS: Lactulose 10gm/15ml UDC ORAL SCH ×3 (08:23→18:00)
[2019-05-07] MEDS: Pantoprazole Inj IVP SCH (08:24)
[2019-05-07] MEDS: Morphine Sulfate 2mg/ml Inj(IV/IM USE ONLY) IVP PRN ×2 (08:25→22:09)
--- NOTE | 2019-05-07 11:55 | NUR ---
NURSE NOTES: patient vomitted x once. small amount yellowish clear liquid. no blood.
--- NOTE | 2019-05-07 11:55 | NUR ---
NURSE NOTES: administered zofran IVP 2ml as ordered.
--- NOTE | 2019-05-07 12:03 | Infectious Diseases Prog Note ---
Assessment/Plan Assessment/Plan Abx: Zosyn x1 05/03 Flagyl x 05/03 Assessment: Sepsis- 2ry to GNR Gram negative bacteremia -05/03 BCx 2/ ACHROMOBACTER XYLOSOXIDANS (S Zosyn, Ceftazidime, bactrim; R cefepime; I imipenem, Levaquin); 05/05 Bcx p R/o SBP -05/05 SP paracentesis: 3.5 L removed wbc 170 (N 49%); cx NTD Leukocytosis, SP Fever, improving -05/04 CXR: Mild interstitial congestion. Cardiomegaly -u/a wbc 40-60, nit neg, leuk +3; ucx >100k yeast (colonizer) Abd pain Recurrent ascites - -03/11/19 sp paracentesis:fluid wbc 97 (N 34%) HTN DM Liver Cirrhosis EtOH abuse Plan: -Continue Zosyn #5/14 for gram negative bacteremia -03/14 SP Cipro #4 and flagyl #3 -f/u cx -Monitor CBC/CMP, temperatures -f/u Repeat Bcx x2 Thank you for this consultation. Will continue to follow along with you. Subjective Allergies: Coded Allergies: No Known Allergies (Unverified , 01/31/19) Subjective Afebrile Sitting up in bed Objective Vital Signs Last 24 Hour Vital Signs Date Time Temp Pulse Resp B/P (MAP) Pulse Ox O2 Delivery O2 Flow Rate FiO2 05/07/19 09:00 Room Air 05/07/19 08:00 97.3 80 18 117/70 (86) 97 05/07/19 04:00 97.1 87 20 151/88 (109) 96 05/07/19 01:19 98.0 83 19 145/83 (103) 96 05/07/19 00:00 98.0 83 19 145/83 (103) 96 05/06/19 21:26 97.9 05/06/19 21:00 Room Air 05/06/19 20:00 97.9 82 18 136/90 (105) 96 05/06/19 16:00 97.6 78 17 134/67 (89) 100 Height (Feet): 5 Height (Inches): 3.00 Weight (Pounds): 202 Objective Abx: Zosyn x1 05/03 Flagyl x 05/03 GENERAL: NAD HEENT: NCAT MM, YOEL CHEST: Lungs are clear to auscultation bilaterally without wheezes CARDIOVASCULAR: Regular rhythm and rate. S1 and S2 ABDOMEN: Soft, diffusely tender, ND Microbiology Date/Time Source Procedure Growth Status 05/05/19 14:56 Blood Blood Culture - Preliminary NO GROWTH AFTER 24 HOURS Resulted 05/05/19 14:50 Blood Blood Culture - Preliminary NO GROWTH AFTER 24 HOURS Resulted 05/05/19 10:31 Abdominal Fluid Gram Stain - Final Resulted 05/05/19 10:31 Abdominal Fluid Body Fluid Culture - Preliminary NO GROWTH AFTER 48 HOURS Resulted Laboratory Tests Test 05/07/19 06:15 White Blood Count 5.1 K/UL (4.8-10.8) Red Blood Count 3.67 M/UL (4.20-5.40) L Hemoglobin 9.8 G/DL (12.0-16.0) L Hematocrit 31.5 % (37.0-47.0) L Mean Corpuscular Volume 86 FL (80-99) Mean Corpuscular Hemoglobin 26.7 PG (27.0-31.0) L Mean Corpuscular Hemoglobin Concent 31.1 G/DL (32.0-36.0) L Red Cell Distribution Width 22.4 % (11.6-14.8) H Platelet Count 68 K/UL (150-450) L Mean Platelet Volume 9.9 FL (6.5-10.1) Neutrophils (%) (Auto) % (45.0-75.0) Lymphocytes (%) (Auto) % (20.0-45.0) Monocytes (%) (Auto) % (1.0-10.0) Eosinophils (%) (Auto) % (0.0-3.0) Basophils (%) (Auto) % (0.0-2.0) Differential Total Cells Counted 100 Neutrophils % (Manual) 79 % (45-75) H Lymphocytes % (Manual) 12 % (20-45) L Monocytes % (Manual) 7 % (1-10) Eosinophils % (Manual) 1 % (0-3) Basophils % (Manual) 1 % (0-2) Band Neutrophils 0 % (0-8) Platelet Estimate Decreased L Platelet Morphology Normal Hypochromasia 2+ Anisocytosis 2+ Tear Drop Cells Occasional Sodium Level 140 MMOL/L (136-145) Potassium Level 3.0 MMOL/L (3.5-5.1) L Chloride Level 107 MMOL/L (98-107) Carbon Dioxide Level 21 MMOL/L (21-32) Anion Gap 12 mmol/L (5-15) Blood Urea Nitrogen 15 mg/dL (7-18) Creatinine 1.2 MG/DL (0.55-1.30) Estimat Glomerular Filtration Rate 46.3 mL/min (>60) Glucose Level 112 MG/DL (74-106) H Calcium Level 7.3 MG/DL (8.5-10.1) L Current Medications Medications (Trade) Dose Ordered Sig/Almaz Route PRN Reason Start Time Stop Time Status Last Admin Dose Admin Acetaminophen (Tylenol) 650 mg Q4H PRN ORAL fever 05/04/19 21:15 06/02/19 13:14 Dextrose (Dextrose 50%) 25 ml Q30M PRN IV Hypoglycemia 05/04/19 21:15 06/02/19 13:14 Dextrose (Dextrose 50%) 50 ml Q30M PRN IV Hypoglycemia 05/04/19 21:15 06/02/19 13:14 Diphenhydramine HCl (Benadryl) 25 mg Q6H PRN ORAL Itching/Pruritis 05/04/19 21:15 06/03/19 21:14 05/06/19 11:39 Furosemide (Lasix) 40 mg EVERY 8 HOURS ORAL 05/04/19 22:00 06/03/19 13:59 05/07/19 06:34 Lactulose (Cephulac) 10 gm THREE TIMES A DAY ORAL 05/05/19 13:00 06/04/19 12:59 05/07/19 08:23 Morphine Sulfate (Morphine Sulfate) 2 mg Q4H PRN IVP severe Pain (Pain Scale 7-10) 05/04/19 21:15 05/10/19 13:14 05/07/19 08:25 Nitroglycerin (Ntg) 0.4 mg Q5M X 3 DOSES PRN SL Prn Chest Pain 05/04/19 21:00 06/02/19 13:14 Ondansetron HCl (Zofran) 4 mg Q6H PRN IVP Nausea & Vomiting 05/04/19 21:15 06/03/19 21:14 05/07/19 11:55 Pantoprazole (Protonix) 40 mg DAILY IVP 05/05/19 09:00 06/03/19 08:59 05/07/19 08:24 Piperacillin Sod/ Tazobactam Sod 3.375 gm/Sodium Chloride 110 ml @ 27.5 mls/hr EVERY 8 HOURS IVPB 05/04/19 22:00 05/09/19 15:29 05/07/19 05:04 Polyethylene Glycol (Miralax) 17 gm HSPRN PRN ORAL Constipation 05/04/19 21:15 06/03/19 21:14 Rifaximin (Xifaxan) 550 mg EVERY 12 HOURS ORAL 05/05/19 21:00 05/12/19 20:59 05/07/19 08:23 Sucralfate (Carafate) 1 gm BIAC ORAL 05/05/19 06:30 06/04/19 06:29 05/07/19 06:34 Temazepam (Restoril) 15 mg HSPRN PRN ORAL Insomnia 05/04/19 21:15 05/11/19 21:14 Vincent Edward MD May 07, 2019 12:03
--- NOTE | 2019-05-07 12:53 | NUR ---
NURSE NOTES: patient no c/o nausea. tolerated well with sherbet. no episode of vomiting.
[2019-05-07] MEDS ORDERED: D5 1/2NS 1000ml IV ONE ×2 (14:23→16:00)
--- NOTE | 2019-05-07 14:29 | Internal Med Progress Note ---
Subjective Date of Service: May 07, 2019 Physician Name Jose Benjamin Attending Physician Goldy Amador MD Current Medications Medications (Trade) Dose Ordered Sig/Almaz Route PRN Reason Start Time Stop Time Status Last Admin Dose Admin Acetaminophen (Tylenol) 650 mg Q4H PRN ORAL fever 05/04/19 21:15 06/02/19 13:14 Dextrose (Dextrose 50%) 25 ml Q30M PRN IV Hypoglycemia 05/04/19 21:15 06/02/19 13:14 Dextrose (Dextrose 50%) 50 ml Q30M PRN IV Hypoglycemia 05/04/19 21:15 06/02/19 13:14 Diphenhydramine HCl (Benadryl) 25 mg Q6H PRN ORAL Itching/Pruritis 05/04/19 21:15 06/03/19 21:14 05/06/19 11:39 Furosemide (Lasix) 40 mg EVERY 8 HOURS ORAL 05/04/19 22:00 06/03/19 13:59 05/07/19 06:34 Lactulose (Cephulac) 10 gm THREE TIMES A DAY ORAL 05/05/19 13:00 06/04/19 12:59 05/07/19 08:23 Morphine Sulfate (Morphine Sulfate) 2 mg Q4H PRN IVP severe Pain (Pain Scale 7-10) 05/04/19 21:15 05/10/19 13:14 05/07/19 08:25 Nitroglycerin (Ntg) 0.4 mg Q5M X 3 DOSES PRN SL Prn Chest Pain 05/04/19 21:00 06/02/19 13:14 Ondansetron HCl (Zofran) 4 mg Q6H PRN IVP Nausea & Vomiting 05/04/19 21:15 06/03/19 21:14 05/07/19 11:55 Pantoprazole (Protonix) 40 mg DAILY IVP 05/05/19 09:00 06/03/19 08:59 05/07/19 08:24 Piperacillin Sod/ Tazobactam Sod 3.375 gm/Sodium Chloride 110 ml @ 27.5 mls/hr EVERY 8 HOURS IVPB 05/04/19 22:00 05/09/19 15:29 05/07/19 05:04 Polyethylene Glycol (Miralax) 17 gm HSPRN PRN ORAL Constipation 05/04/19 21:15 06/03/19 21:14 Rifaximin (Xifaxan) 550 mg EVERY 12 HOURS ORAL 05/05/19 21:00 05/12/19 20:59 05/07/19 08:23 Sucralfate (Carafate) 1 gm BIAC ORAL 05/05/19 06:30 06/04/19 06:29 05/07/19 06:34 Temazepam (Restoril) 15 mg HSPRN PRN ORAL Insomnia 05/04/19 21:15 05/11/19 21:14 Allergies: Coded Allergies: No Known Allergies (Unverified , 01/31/19) ROS Limited/Unobtainable: No Constitutional: Reports: no symptoms HEENT: Reports: no symptoms Cardiovascular: Reports: no symptoms Respiratory: Reports: no symptoms Gastrointestinal/Abdominal: Reports: no symptoms Genitourinary: Reports: no symptoms Neurologic/Psychiatric: Reports: no symptoms Subjective 58 YO F with H/O hepatic cirrhosis with ascites admitted with abdominal pain. Now Sepsis. Cover for Int Eloy-DR Amador Objective Last Vital Signs Date Time Temp Pulse Resp B/P (MAP) Pulse Ox O2 Delivery O2 Flow Rate FiO2 05/07/19 12:00 97.2 89 18 134/77 (96) 98 05/07/19 09:00 Room Air 05/03/19 11:12 2.0 Laboratory Tests Test 05/07/19 06:15 White Blood Count 5.1 K/UL (4.8-10.8) Red Blood Count 3.67 M/UL (4.20-5.40) L Hemoglobin 9.8 G/DL (12.0-16.0) L Hematocrit 31.5 % (37.0-47.0) L Mean Corpuscular Volume 86 FL (80-99) Mean Corpuscular Hemoglobin 26.7 PG (27.0-31.0) L Mean Corpuscular Hemoglobin Concent 31.1 G/DL (32.0-36.0) L Red Cell Distribution Width 22.4 % (11.6-14.8) H Platelet Count 68 K/UL (150-450) L Mean Platelet Volume 9.9 FL (6.5-10.1) Neutrophils (%) (Auto) % (45.0-75.0) Lymphocytes (%) (Auto) % (20.0-45.0) Monocytes (%) (Auto) % (1.0-10.0) Eosinophils (%) (Auto) % (0.0-3.0) Basophils (%) (Auto) % (0.0-2.0) Differential Total Cells Counted 100 Neutrophils % (Manual) 79 % (45-75) H Lymphocytes % (Manual) 12 % (20-45) L Monocytes % (Manual) 7 % (1-10) Eosinophils % (Manual) 1 % (0-3) Basophils % (Manual) 1 % (0-2) Band Neutrophils 0 % (0-8) Platelet Estimate Decreased L Platelet Morphology Normal Hypochromasia 2+ Anisocytosis 2+ Tear Drop Cells Occasional Sodium Level 140 MMOL/L (136-145) Potassium Level 3.0 MMOL/L (3.5-5.1) L Chloride Level 107 MMOL/L (98-107) Carbon Dioxide Level 21 MMOL/L (21-32) Anion Gap 12 mmol/L (5-15) Blood Urea Nitrogen 15 mg/dL (7-18) Creatinine 1.2 MG/DL (0.55-1.30) Estimat Glomerular Filtration Rate 46.3 mL/min (>60) Glucose Level 112 MG/DL (74-106) H Calcium Level 7.3 MG/DL (8.5-10.1) L Microbiology Date/Time Source Procedure Growth Status 05/05/19 14:56 Blood Blood Culture - Preliminary NO GROWTH AFTER 24 HOURS Resulted 05/05/19 14:50 Blood Blood Culture - Preliminary NO GROWTH AFTER 24 HOURS Resulted 05/05/19 10:31 Abdominal Fluid Gram Stain - Final Resulted 05/05/19 10:31 Abdominal Fluid Body Fluid Culture - Preliminary NO GROWTH AFTER 48 HOURS Resulted Intake and Output 05/06/19 05/07/19 18:59 06:59 Intake Total 27.5 ml 557.5 ml Balance 27.5 ml 557.5 ml Intake Oral 420 ml IV Total 27.5 ml 137.5 ml # Voids 5 Objective PHYSICAL EXAMINATION: GENERAL: The patient is a well-developed and well-nourished obese female, in moderate abdominal pain and distress. HEENT: Eyes, pupils are equal and responsive to light and accommodation. Extraocular movements are intact. No scleral icterus is noted. CHEST: Lungs are clear to auscultation bilaterally without wheezes or rales. CARDIOVASCULAR: Regular rhythm and rate. S1 and S2 are normal without murmurs, rubs, or gallops. ABDOMEN: Soft, diffusely tender with decreased bowel sounds. No evidence of hepatosplenomegaly. Currently, no rebound or guarding noted. There is no fluid wave present. NEUROLOGICAL: Cranial nerves II through XII are grossly intact without focal deficits. Assessment/Plan Assessment/Plan ASSESSMENT: This is a 58-year-old female. 1. Abdominal pain. 2. Nausea with vomiting. 3. Fever. 4. Elevated liver function tests. 5. Urinary tract infection. 6. Hepatic encephalopathy. 7. Alcoholic cirrhosis of the liver. 8. Hypertension. 9. Diabetes type 2. 10. Thrombocytopenia. 11. Ascites. 12. Hypercholesterolemia. 13. Portal hypertension. 14. Severe anemia 15. Sepsis=Acenitobacter TREATMENT: 1. Elevated liver function tests/hepatic encephalopathy/alcoholic cirrhosis of the liver. A Gastroenterology consultation has been obtained with Dr. Jon Torres. Continue Prevacid as above. Await paracentesis today. 2. Urinary tract infection/sepsis. Urine culture = yeast. aBX= Zosyn per ID 3. Hypertension. The patient is currently hypotensive. 4. Diabetes type 2. A NovoLog sliding scale has been instituted. 5. Thrombocytopenia. This is probably secondary to chronic liver disease. 6. Hepatic encephalopathy. Continue lactulose and Xifaxan as above. 7. Ascites as above. S/P paracentesis 05/05/19 8. Hypercholesterolemia. 9. Portal hypertension. 10. S/P Transfusion 1 unit PRBC 05/04/19 Jose Benjamin MD May 07, 2019 14:29
--- NOTE | 2019-05-07 16:57 | General Progress Note ---
Assessment/Plan Status: stable Assessment/Plan: Assessment/Plan Problems: (1) ETOH abuse ICD Codes: F10.10 - Alcohol abuse, uncomplicated SNOMED: 95302900 (2) Acute metabolic encephalopathy ICD Codes: G93.41 - Metabolic encephalopathy SNOMED: 98979115, 575109140 (3) Liver cirrhosis ICD Codes: K74.60 - Unspecified cirrhosis of liver SNOMED: 70797217 (4) Abdominal pain ICD Codes: R10.9 - Unspecified abdominal pain SNOMED: 63891690 (5) Acute on chronic alcoholic liver disease ICD Codes: K70.9 - Alcoholic liver disease, unspecified SNOMED: 353940088 (6) Anemia ICD Codes: D64.9 - Anemia, unspecified SNOMED: 877990404 (7) Ascites ICD Codes: R18.8 - Other ascites SNOMED: 007755896 Status: stable Assessment/Plan Status post EGD on April 22, 2019. No noted gastric or esophageal varices at that time. Portal hypertensive gastropathy. s/p paracentesis with approximate 3L output cardiac soft diet Monitor H&H, PRN transfusions. PPI plus Carafate twice daily given history of recent gastric ulcer Zofran as needed Follow labs dc planning Subjective Allergies: Coded Allergies: No Known Allergies (Unverified , 01/31/19) Subjective Feels OK tolerating PO d/w RN last BM 05/05 Objective Last 24 Hour Vital Signs Date Time Temp Pulse Resp B/P (MAP) Pulse Ox O2 Delivery O2 Flow Rate FiO2 05/07/19 16:00 98.1 83 17 121/76 (91) 99 05/07/19 12:00 97.2 89 18 134/77 (96) 98 05/07/19 09:00 Room Air 05/07/19 08:00 97.3 80 18 117/70 (86) 97 05/07/19 04:00 97.1 87 20 151/88 (109) 96 05/07/19 01:19 98.0 83 19 145/83 (103) 96 05/07/19 00:00 98.0 83 19 145/83 (103) 96 05/06/19 21:26 97.9 05/06/19 21:00 Room Air 05/06/19 20:00 97.9 82 18 136/90 (105) 96 Intake and Output 05/06/19 05/07/19 18:59 06:59 Intake Total 27.5 ml 557.5 ml Balance 27.5 ml 557.5 ml Intake Oral 420 ml IV Total 27.5 ml 137.5 ml # Voids 5 Laboratory Tests 05/07/19 06:15: White Blood Count 5.1, Red Blood Count 3.67L, Hemoglobin 9.8L, Hematocrit 31.5L , Mean Corpuscular Volume 86, Mean Corpuscular Hemoglobin 26.7L, Mean Corpuscular Hemoglobin Concent 31.1L, Red Cell Distribution Width 22.4H, Platelet Count 68L, Mean Platelet Volume 9.9, Neutrophils (%) (Auto) , Lymphocytes (%) (Auto) , Monocytes (%) (Auto) , Eosinophils (%) (Auto) , Basophils (%) (Auto) , Differential Total Cells Counted 100, Neutrophils % ( Manual) 79H, Lymphocytes % (Manual) 12L, Monocytes % (Manual) 7, Eosinophils % ( Manual) 1, Basophils % (Manual) 1, Band Neutrophils 0, Platelet Estimate DecreasedL, Platelet Morphology Normal, Hypochromasia 2+, Anisocytosis 2+, Tear Drop Cells Occasional, Sodium Level 140, Potassium Level 3.0L, Chloride Level 107, Carbon Dioxide Level 21, Anion Gap 12, Blood Urea Nitrogen 15, Creatinine 1.2, Estimat Glomerular Filtration Rate 46.3, Glucose Level 112H, Calcium Level 7.3L Height (Feet): 5 Height (Inches): 3.00 Weight (Pounds): 202 Objective obese woman NCAT supple CTA RR abd soft (+) Ascites and anasarca (+) edema Mikhail Elaine MD May 07, 2019 16:57
[2019-05-07] MEDS ORDERED: Lactulose 20gm/30ml UDC ORAL SCH (17:00)
--- NOTE | 2019-05-07 17:30 | NUR ---
NURSE NOTES: Dr. winkler ordered Lactulose 30mg once. Patient has schedule order of lactulose 10mg TID. patient made BM after lactulose 30mg po once. send a sample of occult blood stool to lab as ordered.
--- NOTE | 2019-05-07 19:28 | NUR ---
HAND-OFF: Report given to CHAVA Alicia.
--- NOTE | 2019-05-07 19:30 | NUR ---
NURSE NOTES: Received report from CHAVA Cabrera. Patient sleeping. On room air, no signs of distress or labored breathing. IV intact, patent, and saline locked. Bed in lowest position with call light in reach. Will continue with plan of care.
[2019-05-08] VITALS: BP 124/67
[2019-05-08 04:00] VITALS: BP 102/63
[2019-05-08] MEDS: Furosemide 40mg tab ORAL SCH ×3 (06:29→21:06)
[2019-05-08] MEDS: Sucralfate 1gm tab ORAL SCH ×2 (06:29→18:07)
[2019-05-08] MEDS: Piperacillin/Tazobactam 3.375 GM in NS 110 ML IVPB SCH ×3 (06:29→21:18)
--- NOTE | 2019-05-08 07:15 | NUR ---
NURSE NOTES: received report from CHAVA jonas. patient in bed. alert.oriented. verbally responsive. no respiratory distress noted. no pain at this time. no n/v at this time. IV on right wirst saline lock.bed in the lowest position. call light within reach. will continue to provide plan of care.
--- NOTE | 2019-05-08 07:22 | NUR ---
HAND-OFF: Report given to CHAVA Cabrera.
[2019-05-08 07:41] LABS: ANION GAP 10 mmol/L (5-15); BLOOD UREA NITROGEN 13 mg/dL (7-18); CALCIUM 7.5 MG/DL (8.5-10.1); CARBON DIOXIDE 22 MMOL/L (21-32); CHLORIDE 106 MMOL/L (98-107); CREATININE 1.2 MG/DL (0.55-1.30); POTASSIUM 3.3 MMOL/L (3.5-5.1); SODIUM 138 MMOL/L (136-145)
[2019-05-08 07:42] LABS: HEMATOCRIT 32.6 % (37.0-47.0); HEMOGLOBIN 10.2 G/DL (12.0-16.0); MEAN CORPUSCULAR VOLUME 86 FL (80-99); PLATELET COUNT 66 K/UL (150-450); RED BLOOD COUNT 3.79 M/UL (4.20-5.40); RED CELL DISTRIBUTION WIDTH 21.9 % (11.6-14.8); WHITE BLOOD COUNT 5.3 K/UL (4.8-10.8)
[2019-05-08 08:00] VITALS: BP 111/77
[2019-05-08] MEDS: Pantoprazole Inj IVP SCH (09:12)
[2019-05-08] MEDS: Lactulose 10gm/15ml UDC ORAL SCH ×3 (09:12→18:07)
[2019-05-08 12:00] VITALS: BP 117/66
[2019-05-08] MEDS: Morphine Sulfate 2mg/ml Inj(IV/IM USE ONLY) IVP PRN ×2 (15:57→21:06)
[2019-05-08 16:00] VITALS: BP 125/67
--- NOTE | 2019-05-08 17:30 | Internal Med Progress Note ---
Subjective Date of Service: May 08, 2019 Physician Name Jose Benjamin Attending Physician Goldy Amador MD Current Medications Medications (Trade) Dose Ordered Sig/Almaz Route PRN Reason Start Time Stop Time Status Last Admin Dose Admin Acetaminophen (Tylenol) 650 mg Q4H PRN ORAL fever 05/04/19 21:15 06/02/19 13:14 Dextrose (Dextrose 50%) 25 ml Q30M PRN IV Hypoglycemia 05/04/19 21:15 06/02/19 13:14 Dextrose (Dextrose 50%) 50 ml Q30M PRN IV Hypoglycemia 05/04/19 21:15 06/02/19 13:14 Diphenhydramine HCl (Benadryl) 25 mg Q6H PRN ORAL Itching/Pruritis 05/04/19 21:15 06/03/19 21:14 05/06/19 11:39 Furosemide (Lasix) 40 mg EVERY 8 HOURS ORAL 05/04/19 22:00 06/03/19 13:59 05/08/19 14:00 Lactulose (Cephulac) 10 gm THREE TIMES A DAY ORAL 05/05/19 13:00 06/04/19 12:59 05/08/19 12:22 Morphine Sulfate (Morphine Sulfate) 2 mg Q4H PRN IVP severe Pain (Pain Scale 7-10) 05/04/19 21:15 05/10/19 13:14 05/08/19 15:57 Nitroglycerin (Ntg) 0.4 mg Q5M X 3 DOSES PRN SL Prn Chest Pain 05/04/19 21:00 06/02/19 13:14 Ondansetron HCl (Zofran) 4 mg Q6H PRN IVP Nausea & Vomiting 05/04/19 21:15 06/03/19 21:14 05/07/19 11:55 Pantoprazole (Protonix) 40 mg DAILY IVP 05/05/19 09:00 06/03/19 08:59 05/08/19 09:12 Piperacillin Sod/ Tazobactam Sod 3.375 gm/Sodium Chloride 110 ml @ 27.5 mls/hr EVERY 8 HOURS IVPB 05/04/19 22:00 05/16/19 21:59 05/08/19 14:00 Polyethylene Glycol (Miralax) 17 gm HSPRN PRN ORAL Constipation 05/04/19 21:15 06/03/19 21:14 Rifaximin (Xifaxan) 550 mg EVERY 12 HOURS ORAL 05/05/19 21:00 05/12/19 20:59 05/08/19 09:12 Sucralfate (Carafate) 1 gm BIAC ORAL 05/05/19 06:30 06/04/19 06:29 05/08/19 06:29 Temazepam (Restoril) 15 mg HSPRN PRN ORAL Insomnia 05/04/19 21:15 05/11/19 21:14 Allergies: Coded Allergies: No Known Allergies (Unverified , 01/31/19) ROS Limited/Unobtainable: No Constitutional: Reports: no symptoms HEENT: Reports: no symptoms Cardiovascular: Reports: no symptoms Respiratory: Reports: no symptoms Gastrointestinal/Abdominal: Reports: abdominal pain Genitourinary: Reports: no symptoms Neurologic/Psychiatric: Reports: no symptoms Subjective 58 YO F with H/O hepatic cirrhosis with ascites admitted with abdominal pain. Now Sepsis. Cover for Int Eloy-DR Amador Objective Last Vital Signs Date Time Temp Pulse Resp B/P (MAP) Pulse Ox O2 Delivery O2 Flow Rate FiO2 05/08/19 16:00 98.5 81 18 125/67 (86) 94 05/08/19 09:00 Room Air 05/03/19 11:12 2.0 Laboratory Tests Test 05/07/19 18:00 05/08/19 05:54 Stool Occult Blood Positive (NEGATIVE) White Blood Count 5.3 K/UL (4.8-10.8) Red Blood Count 3.79 M/UL (4.20-5.40) L Hemoglobin 10.2 G/DL (12.0-16.0) L Hematocrit 32.6 % (37.0-47.0) L Mean Corpuscular Volume 86 FL (80-99) Mean Corpuscular Hemoglobin 26.8 PG (27.0-31.0) L Mean Corpuscular Hemoglobin Concent 31.2 G/DL (32.0-36.0) L Red Cell Distribution Width 21.9 % (11.6-14.8) H Platelet Count 66 K/UL (150-450) L Mean Platelet Volume 6.8 FL (6.5-10.1) Neutrophils (%) (Auto) % (45.0-75.0) Lymphocytes (%) (Auto) % (20.0-45.0) Monocytes (%) (Auto) % (1.0-10.0) Eosinophils (%) (Auto) % (0.0-3.0) Basophils (%) (Auto) % (0.0-2.0) Differential Total Cells Counted 100 Neutrophils % (Manual) 69 % (45-75) Lymphocytes % (Manual) 17 % (20-45) L Monocytes % (Manual) 9 % (1-10) Eosinophils % (Manual) 5 % (0-3) H Basophils % (Manual) 0 % (0-2) Band Neutrophils 0 % (0-8) Platelet Estimate Decreased L Platelet Morphology Normal Hypochromasia 1+ Anisocytosis 2+ Sodium Level 138 MMOL/L (136-145) Potassium Level 3.3 MMOL/L (3.5-5.1) L Chloride Level 106 MMOL/L (98-107) Carbon Dioxide Level 22 MMOL/L (21-32) Anion Gap 10 mmol/L (5-15) Blood Urea Nitrogen 13 mg/dL (7-18) Creatinine 1.2 MG/DL (0.55-1.30) Estimat Glomerular Filtration Rate 46.3 mL/min (>60) Glucose Level 85 MG/DL (74-106) Calcium Level 7.5 MG/DL (8.5-10.1) L Intake and Output 05/07/19 05/08/19 18:59 06:59 Intake Total 192.5 ml Output Total 1000 ml 1000 ml Balance -807.5 ml -1000 ml IV Total 192.5 ml Output Urine Total 1000 ml 1000 ml # Voids 1 # Bowel Movements 1 1 Objective PHYSICAL EXAMINATION: GENERAL: The patient is a well-developed and well-nourished obese female, in moderate abdominal pain and distress. HEENT: Eyes, pupils are equal and responsive to light and accommodation. Extraocular movements are intact. No scleral icterus is noted. CHEST: Lungs are clear to auscultation bilaterally without wheezes or rales. CARDIOVASCULAR: Regular rhythm and rate. S1 and S2 are normal without murmurs, rubs, or gallops. ABDOMEN: Soft, diffusely tender with decreased bowel sounds. No evidence of hepatosplenomegaly. Currently, no rebound or guarding noted. There is no fluid wave present. NEUROLOGICAL: Cranial nerves II through XII are grossly intact without focal deficits. Assessment/Plan Assessment/Plan ASSESSMENT: This is a 58-year-old female. 1. Abdominal pain. 2. Nausea with vomiting. 3. Fever. 4. Elevated liver function tests. 5. Urinary tract infection. 6. Hepatic encephalopathy. 7. Alcoholic cirrhosis of the liver. 8. Hypertension. 9. Diabetes type 2. 10. Thrombocytopenia. 11. Ascites. 12. Hypercholesterolemia. 13. Portal hypertension. 14. Severe anemia 15. Sepsis=Acenitobacter TREATMENT: 1. Elevated liver function tests/hepatic encephalopathy/alcoholic cirrhosis of the liver. A Gastroenterology consultation has been obtained with Dr. Jon Torres. Continue Prevacid as above. Await paracentesis today. 2. Urinary tract infection/sepsis. Urine culture = yeast. aBX= Zosyn per ID 3. Hypertension. The patient is currently hypotensive. 4. Diabetes type 2. A NovoLog sliding scale has been instituted. 5. Thrombocytopenia. This is probably secondary to chronic liver disease. 6. Hepatic encephalopathy. Continue lactulose and Xifaxan as above. 7. Ascites as above. S/P paracentesis 05/05/19 8. Hypercholesterolemia. 9. Portal hypertension. 10. S/P Transfusion 1 unit PRBC 05/04/19 Jose Benjamin MD May 08, 2019 17:30
--- NOTE | 2019-05-08 18:23 | Pulmonology Progress Note ---
Assessment/Plan Problems: (1) Bacteremia due to Gram-negative bacteria (2) Acute metabolic encephalopathy (3) Liver cirrhosis (4) Anemia (5) Ascites (6) Anasarca (7) Acute on chronic alcoholic liver disease Assessment/Plan doing better continue abx, Zosy check cultures, reviewed prbc prn symptomatic treatment dc probably in 1-2 days Subjective ROS Limited/Unobtainable: No Allergies: Coded Allergies: No Known Allergies (Unverified , 01/31/19) Objective Last 24 Hour Vital Signs Date Time Temp Pulse Resp B/P (MAP) Pulse Ox O2 Delivery O2 Flow Rate FiO2 05/08/19 16:00 98.5 81 18 125/67 (86) 94 05/08/19 12:00 96.1 82 19 117/66 (83) 96 05/08/19 09:00 Room Air 05/08/19 08:00 97.8 88 18 111/77 (88) 98 05/08/19 04:00 96.9 83 19 102/63 (76) 95 05/08/19 00:00 97.8 82 19 124/67 (86) 98 05/07/19 21:00 Room Air 05/07/19 20:00 97.2 85 16 120/81 (94) 97 Intake and Output 05/07/19 05/08/19 18:59 06:59 Intake Total 192.5 ml Output Total 1000 ml 1000 ml Balance -807.5 ml -1000 ml IV Total 192.5 ml Output Urine Total 1000 ml 1000 ml # Voids 1 # Bowel Movements 1 1 General Appearance: WD/WN HEENT: normocephalic Respiratory/Chest: chest wall non-tender, lungs clear Breasts: no masses Cardiovascular: normal peripheral pulses Abdomen: normal bowel sounds Genitourinary: normal external genitalia Skin: no rash Neurologic/Psychiatric: 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 design 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 grossly normal Laboratory Tests 05/08/19 05:54: White Blood Count 5.3, Red Blood Count 3.79L, Hemoglobin 10.2L, Hematocrit 32.6L , Mean Corpuscular Volume 86, Mean Corpuscular Hemoglobin 26.8L, Mean Corpuscular Hemoglobin Concent 31.2L, Red Cell Distribution Width 21.9H, Platelet Count 66L, Mean Platelet Volume 6.8, Neutrophils (%) (Auto) , Lymphocytes (%) (Auto) , Monocytes (%) (Auto) , Eosinophils (%) (Auto) , Basophils (%) (Auto) , Differential Total Cells Counted 100, Neutrophils % ( Manual) 69, Lymphocytes % (Manual) 17L, Monocytes % (Manual) 9, Eosinophils % ( Manual) 5H, Basophils % (Manual) 0, Band Neutrophils 0, Platelet Estimate DecreasedL, Platelet Morphology Normal, Hypochromasia 1+, Anisocytosis 2+, Sodium Level 138, Potassium Level 3.3L, Chloride Level 106, Carbon Dioxide Level 22, Anion Gap 10, Blood Urea Nitrogen 13, Creatinine 1.2, Estimat Glomerular Filtration Rate 46.3, Glucose Level 85, Calcium Level 7.5L Current Medications Medications (Trade) Dose Ordered Sig/Almaz Route PRN Reason Start Time Stop Time Status Last Admin Dose Admin Acetaminophen (Tylenol) 650 mg Q4H PRN ORAL fever 05/04/19 21:15 06/02/19 13:14 Dextrose (Dextrose 50%) 25 ml Q30M PRN IV Hypoglycemia 05/04/19 21:15 06/02/19 13:14 Dextrose (Dextrose 50%) 50 ml Q30M PRN IV Hypoglycemia 05/04/19 21:15 06/02/19 13:14 Diphenhydramine HCl (Benadryl) 25 mg Q6H PRN ORAL Itching/Pruritis 05/04/19 21:15 06/03/19 21:14 05/06/19 11:39 Furosemide (Lasix) 40 mg EVERY 8 HOURS ORAL 05/04/19 22:00 06/03/19 13:59 05/08/19 14:00 Lactulose (Cephulac) 10 gm THREE TIMES A DAY ORAL 05/05/19 13:00 06/04/19 12:59 05/08/19 18:07 Morphine Sulfate (Morphine Sulfate) 2 mg Q4H PRN IVP severe Pain (Pain Scale 7-10) 05/04/19 21:15 05/10/19 13:14 05/08/19 15:57 Nitroglycerin (Ntg) 0.4 mg Q5M X 3 DOSES PRN SL Prn Chest Pain 05/04/19 21:00 06/02/19 13:14 Ondansetron HCl (Zofran) 4 mg Q6H PRN IVP Nausea & Vomiting 05/04/19 21:15 06/03/19 21:14 05/07/19 11:55 Pantoprazole (Protonix) 40 mg DAILY IVP 05/05/19 09:00 06/03/19 08:59 05/08/19 09:12 Piperacillin Sod/ Tazobactam Sod 3.375 gm/Sodium Chloride 110 ml @ 27.5 mls/hr EVERY 8 HOURS IVPB 05/04/19 22:00 05/16/19 21:59 05/08/19 14:00 Polyethylene Glycol (Miralax) 17 gm HSPRN PRN ORAL Constipation 05/04/19 21:15 06/03/19 21:14 Rifaximin (Xifaxan) 550 mg EVERY 12 HOURS ORAL 05/05/19 21:00 05/12/19 20:59 05/08/19 09:12 Sucralfate (Carafate) 1 gm BIAC ORAL 05/05/19 06:30 06/04/19 06:29 05/08/19 18:07 Temazepam (Restoril) 15 mg HSPRN PRN ORAL Insomnia 05/04/19 21:15 05/11/19 21:14 Shireen Khan MD May 08, 2019 18:23
--- NOTE | 2019-05-08 19:29 | NUR ---
HAND-OFF: Report given to CHAVA Whitley.
--- NOTE | 2019-05-08 19:30 | NUR ---
NURSE NOTES: Patient awake in bed, in pain, will medicate as ordered. Instructed the use of call light. Bed in lowest position, lock engaged and alarm on. Will continue to monitor.
--- NOTE | 2019-05-08 19:31 | General Progress Note ---
Assessment/Plan Status: stable Assessment/Plan: Assessment/Plan Problems: (1) ETOH abuse ICD Codes: F10.10 - Alcohol abuse, uncomplicated SNOMED: 34602128 (2) Acute metabolic encephalopathy ICD Codes: G93.41 - Metabolic encephalopathy SNOMED: 12720869, 324408782 (3) Liver cirrhosis ICD Codes: K74.60 - Unspecified cirrhosis of liver SNOMED: 05357761 (4) Abdominal pain / constipation ICD Codes: R10.9 - Unspecified abdominal pain SNOMED: 03866451 (5) Acute on chronic alcoholic liver disease ICD Codes: K70.9 - Alcoholic liver disease, unspecified SNOMED: 044016273 (6) Anemia ICD Codes: D64.9 - Anemia, unspecified SNOMED: 437962705 (7) Ascites ICD Codes: R18.8 - Other ascites SNOMED: 369098983 Status: stable Assessment/Plan Status post EGD on April 22, 2019. No noted gastric or esophageal varices at that time. Portal hypertensive gastropathy. s/p paracentesis with approximate 3L output cardiac soft diet Monitor H&H, PRN transfusions. PPI plus Carafate twice daily given history of recent gastric ulcer Increase TID lactulose dose Zofran as needed Follow labs dc planning Subjective Allergies: Coded Allergies: No Known Allergies (Unverified , 01/31/19) Subjective Feels OK (+) BM with extra lactulose tolerating PO Objective Last 24 Hour Vital Signs Date Time Temp Pulse Resp B/P (MAP) Pulse Ox O2 Delivery O2 Flow Rate FiO2 05/08/19 16:00 98.5 81 18 125/67 (86) 94 05/08/19 12:00 96.1 82 19 117/66 (83) 96 05/08/19 09:00 Room Air 05/08/19 08:00 97.8 88 18 111/77 (88) 98 05/08/19 04:00 96.9 83 19 102/63 (76) 95 05/08/19 00:00 97.8 82 19 124/67 (86) 98 05/07/19 21:00 Room Air 05/07/19 20:00 97.2 85 16 120/81 (94) 97 Intake and Output 05/07/19 05/08/19 18:59 06:59 Intake Total 192.5 ml Output Total 1000 ml 1000 ml Balance -807.5 ml -1000 ml IV Total 192.5 ml Output Urine Total 1000 ml 1000 ml # Voids 1 # Bowel Movements 1 1 Laboratory Tests 05/08/19 05:54: White Blood Count 5.3, Red Blood Count 3.79L, Hemoglobin 10.2L, Hematocrit 32.6L , Mean Corpuscular Volume 86, Mean Corpuscular Hemoglobin 26.8L, Mean Corpuscular Hemoglobin Concent 31.2L, Red Cell Distribution Width 21.9H, Platelet Count 66L, Mean Platelet Volume 6.8, Neutrophils (%) (Auto) , Lymphocytes (%) (Auto) , Monocytes (%) (Auto) , Eosinophils (%) (Auto) , Basophils (%) (Auto) , Differential Total Cells Counted 100, Neutrophils % ( Manual) 69, Lymphocytes % (Manual) 17L, Monocytes % (Manual) 9, Eosinophils % ( Manual) 5H, Basophils % (Manual) 0, Band Neutrophils 0, Platelet Estimate DecreasedL, Platelet Morphology Normal, Hypochromasia 1+, Anisocytosis 2+, Sodium Level 138, Potassium Level 3.3L, Chloride Level 106, Carbon Dioxide Level 22, Anion Gap 10, Blood Urea Nitrogen 13, Creatinine 1.2, Estimat Glomerular Filtration Rate 46.3, Glucose Level 85, Calcium Level 7.5L Height (Feet): 5 Height (Inches): 3.00 Weight (Pounds): 202 Objective obese woman NCAT supple CTA RR abd soft (+) Ascites and anasarca (+) edema Mikhail Elaine MD May 08, 2019 19:31
[2019-05-08 20:00] VITALS: BP 132/75
[2019-05-09] VITALS: BP 131/72
[2019-05-09 04:00] VITALS: BP 119/68
[2019-05-09] MEDS: Sucralfate 1gm tab ORAL SCH ×2 (05:21→16:30)
[2019-05-09] MEDS: Furosemide 40mg tab ORAL SCH ×2 (05:22→13:57)
[2019-05-09] MEDS: Piperacillin/Tazobactam 3.375 GM in NS 110 ML IVPB SCH ×2 (05:22→13:52)
[2019-05-09] MEDS: Morphine Sulfate 2mg/ml Inj(IV/IM USE ONLY) IVP PRN ×2 (05:29→12:36)
--- NOTE | 2019-05-09 06:53 | NUR ---
NURSE NOTES: Patient refused Synthroid and became agitated while RN explaining to the patient. Addendum: 05/09/19 at 0750 by MAXWELL QUINTANILLA RN wrong patient
[2019-05-09 07:10] LABS: HEMATOCRIT 30.3 % (37.0-47.0); HEMOGLOBIN 9.4 G/DL (12.0-16.0); MEAN CORPUSCULAR VOLUME 86 FL (80-99); PLATELET COUNT 59 K/UL (150-450); RED BLOOD COUNT 3.54 M/UL (4.20-5.40); WHITE BLOOD COUNT 4.7 K/UL (4.8-10.8)
[2019-05-09 07:21] LABS: ALANINE AMINOTRANSFERASE < 6 U/L (12-78); ALBUMIN 1.3 G/DL (3.4-5.0); ALBUMIN/GLOBULIN RATIO 0.3 (1.0-2.7); ALKALINE PHOSPHATASE 181 U/L (46-116); ANION GAP 9 mmol/L (5-15); ASPARTATE AMINO TRANSFERASE 22 U/L (15-37); BILIRUBIN,TOTAL 4.2 MG/DL (0.2-1.0); BLOOD UREA NITROGEN 11 mg/dL (7-18); CALCIUM 7.5 MG/DL (8.5-10.1); CARBON DIOXIDE 25 MMOL/L (21-32); CHLORIDE 103 MMOL/L (98-107); CREATININE 1.2 MG/DL (0.55-1.30); POTASSIUM 2.9 MMOL/L (3.5-5.1); SODIUM 137 MMOL/L (136-145)
[2019-05-09 07:22] LABS: BILIRUBIN,DIRECT 2.5 MG/DL (0.0-0.3)
--- NOTE | 2019-05-09 07:51 | NUR ---
HAND-OFF: Report given to CHAVA Leos.
--- NOTE | 2019-05-09 07:52 | NUR ---
NURSE NOTES: Report received from CHAVA Whitley. Pt is lying comfortably in semi-fowlers with no signs of distress. A+Ox3/4, denies pain/SOB. Respirations are even and unlabored on room air. IV site is intact and saline locked. Bed is at lowest position, brakes engaged, siderails x2, bed alarm on, and call light within reach. Pt is in stable condition at this time;will continue to monitor.
[2019-05-09 08:00] VITALS: BP 134/68
--- NOTE | 2019-05-09 08:14 | NUR ---
NURSE NOTES: Potassium 2.[address] Khan aware who ordered 40 meq Kcl IVPB. Order noted and carried out.
[2019-05-09] MEDS ORDERED: Sodium Chloride for KCL Premix X 4hrs IV SCH (08:30)
[2019-05-09] MEDS: Lactulose 20gm/30ml UDC ORAL SCH ×3 (08:41→17:33)
[2019-05-09] MEDS: Pantoprazole Inj IVP SCH (08:41)
[2019-05-09 12:00] VITALS: BP 130/64
--- NOTE | 2019-05-09 12:19 | GI Progress Note ---
Assessment/Plan Problems: (1) ETOH abuse ICD Codes: F10.10 - Alcohol abuse, uncomplicated SNOMED: 37049703 (2) Acute metabolic encephalopathy ICD Codes: G93.41 - Metabolic encephalopathy SNOMED: 70705528, 411064393 (3) Liver cirrhosis ICD Codes: K74.60 - Unspecified cirrhosis of liver SNOMED: 83377877 (4) Abdominal pain ICD Codes: R10.9 - Unspecified abdominal pain SNOMED: 75309119 (5) Acute on chronic alcoholic liver disease ICD Codes: K70.9 - Alcoholic liver disease, unspecified SNOMED: 073657307 (6) Anemia ICD Codes: D64.9 - Anemia, unspecified SNOMED: 484161291 (7) Ascites ICD Codes: R18.8 - Other ascites SNOMED: 964297580 Status: stable, unchanged Status Narrative Discussed with Dr. oTrres. Assessment/Plan Status post EGD on April 22, 2019. No noted gastric or esophageal varices at that time. Portal hypertensive gastropathy. s/p paracentesis with approximate 3L output cardiac soft diet Monitor H&H, PRN transfusions. PPI plus Carafate twice daily given history of recent gastric ulcer Increase TID lactulose dose Zofran as needed Follow labs dc planning The patient was seen and examined at bedside and all new and available data was reviewed in the patients chart. I agree with the above findings, impression and plan. (Patient seen earlier today. Signature stamp does not reflect patient encounter time.). - Jon Torres MD Subjective Gastrointestinal/Abdominal: Reports: no symptoms Objective Last 24 Hour Vital Signs Date Time Temp Pulse Resp B/P (MAP) Pulse Ox O2 Delivery O2 Flow Rate FiO2 05/09/19 09:00 Room Air 05/09/19 08:00 97.7 80 16 134/68 (90) 97 05/09/19 04:00 97.9 76 20 119/68 (85) 96 05/09/19 00:00 98.1 80 20 131/72 (91) 97 05/08/19 21:00 Room Air 05/08/19 20:00 97.7 81 18 132/75 (94) 96 05/08/19 16:00 98.5 81 18 125/67 (86) 94 Intake and Output 05/08/19 05/09/19 19:00 07:00 Intake Total 820.0 ml 137.5 ml Output Total 700 ml Balance 820.0 ml -562.5 ml IV Total 220.0 ml 137.5 ml Other 600 ml Output Urine Total 700 ml # Bowel Movements 1 2 Laboratory Tests Test 05/09/19 06:15 White Blood Count 4.7 K/UL (4.8-10.8) L Red Blood Count 3.54 M/UL (4.20-5.40) L Hemoglobin 9.4 G/DL (12.0-16.0) L Hematocrit 30.3 % (37.0-47.0) L Mean Corpuscular Volume 86 FL (80-99) Mean Corpuscular Hemoglobin 26.7 PG (27.0-31.0) L Mean Corpuscular Hemoglobin Concent 31.1 G/DL (32.0-36.0) L Red Cell Distribution Width 22.0 % (11.6-14.8) H Platelet Count 59 K/UL (150-450) L Mean Platelet Volume 5.9 FL (6.5-10.1) L Neutrophils (%) (Auto) % (45.0-75.0) Lymphocytes (%) (Auto) % (20.0-45.0) Monocytes (%) (Auto) % (1.0-10.0) Eosinophils (%) (Auto) % (0.0-3.0) Basophils (%) (Auto) % (0.0-2.0) Differential Total Cells Counted 100 Neutrophils % (Manual) 70 % (45-75) Lymphocytes % (Manual) 14 % (20-45) L Monocytes % (Manual) 9 % (1-10) Eosinophils % (Manual) 6 % (0-3) H Basophils % (Manual) 0 % (0-2) Band Neutrophils 1 % (0-8) Platelet Estimate Decreased L Platelet Morphology Normal Hypochromasia 2+ Anisocytosis 2+ Sodium Level 137 MMOL/L (136-145) Potassium Level 2.9 MMOL/L (3.5-5.1) L Chloride Level 103 MMOL/L (98-107) Carbon Dioxide Level 25 MMOL/L (21-32) Anion Gap 9 mmol/L (5-15) Blood Urea Nitrogen 11 mg/dL (7-18) Creatinine 1.2 MG/DL (0.55-1.30) Estimat Glomerular Filtration Rate 46.3 mL/min (>60) Glucose Level 89 MG/DL (74-106) Calcium Level 7.5 MG/DL (8.5-10.1) L Total Bilirubin 4.2 MG/DL (0.2-1.0) H Direct Bilirubin 2.5 MG/DL (0.0-0.3) H Aspartate Amino Transf (AST/SGOT) 22 U/L (15-37) Alanine Aminotransferase (ALT/SGPT) < 6 U/L (12-78) L Alkaline Phosphatase 181 U/L (46-116) H Total Protein 6.1 G/DL (6.4-8.2) L Albumin 1.3 G/DL (3.4-5.0) L Globulin 4.8 g/dL Albumin/Globulin Ratio 0.3 (1.0-2.7) L Height (Feet): 5 Height (Inches): 3.00 Weight (Pounds): 202 General Appearance: WD/WN, no apparent distress, alert Cardiovascular: normal rate Respiratory/Chest: normal breath sounds, no respiratory distress Abdominal Exam: normal bowel sounds, non tender, soft Extremities: normal range of motion, non-tender Indu Lane NP May 09, 2019 12:18
--- NOTE | 2019-05-09 13:00 | Infectious Diseases Prog Note ---
Assessment/Plan Assessment/Plan Assessment: Sepsis- 2ry to GNR Gram negative bacteremia -05/03 BCx / ACHROMOBACTER XYLOSOXIDANS (S Zosyn, Ceftazidime, bactrim; R cefepime; I imipenem, Levaquin); 05/05 Bcx NTD Recurrent ascites -05/05 SP paracentesis: 3.5 L removed wbc 170 (N 49%); cx Neg - -03/11/19 sp paracentesis:fluid wbc 97 (N 34%) Leukocytosis, SP Fever,SP -05/04 CXR: Mild interstitial congestion. Cardiomegaly -u/a wbc 40-60, nit neg, leuk +3; ucx >100k yeast (colonizer) Abd pain HTN DM Liver Cirrhosis EtOH abuse Plan: -Continue Zosyn #03/13 for gram negative bacteremia -03/14 SP Cipro #4 and flagyl #3 -f/u cx -Monitor CBC/CMP, temperatures -f/u Repeat Bcx x2 Thank you for this consultation. Will continue to follow along with you. Subjective Allergies: Coded Allergies: No Known Allergies (Unverified , 01/31/19) Subjective afebrile no leukocytosis repeat blood cx NTD Objective Vital Signs Last 24 Hour Vital Signs Date Time Temp Pulse Resp B/P (MAP) Pulse Ox O2 Delivery O2 Flow Rate FiO2 05/09/19 09:00 Room Air 05/09/19 08:00 97.7 80 16 134/68 (90) 97 05/09/19 04:00 97.9 76 20 119/68 (85) 96 05/09/19 00:00 98.1 80 20 131/72 (91) 97 05/08/19 21:00 Room Air 05/08/19 20:00 97.7 81 18 132/75 (94) 96 05/08/19 16:00 98.5 81 18 125/67 (86) 94 Height (Feet): 5 Height (Inches): 3.00 Weight (Pounds): 202 Objective GENERAL: The patient is a well-developed and well-nourished obese female, in moderate abdominal pain and distress. HEENT: Eyes, pupils are equal and responsive to light and accommodation. Extraocular movements are intact. No scleral icterus is noted. CHEST: Lungs are clear to auscultation bilaterally without wheezes or rales. CARDIOVASCULAR: Regular rhythm and rate. S1 and S2 are normal without murmurs, rubs, or gallops. ABDOMEN: Soft, diffusely tender with decreased bowel sounds. No evidence of hepatosplenomegaly. Currently, no rebound or guarding noted. There is no fluid wave present. NEUROLOGICAL: Cranial nerves II through XII are grossly intact without focal deficits. Laboratory Tests Test 05/09/19 06:15 White Blood Count 4.7 K/UL (4.8-10.8) L Red Blood Count 3.54 M/UL (4.20-5.40) L Hemoglobin 9.4 G/DL (12.0-16.0) L Hematocrit 30.3 % (37.0-47.0) L Mean Corpuscular Volume 86 FL (80-99) Mean Corpuscular Hemoglobin 26.7 PG (27.0-31.0) L Mean Corpuscular Hemoglobin Concent 31.1 G/DL (32.0-36.0) L Red Cell Distribution Width 22.0 % (11.6-14.8) H Platelet Count 59 K/UL (150-450) L Mean Platelet Volume 5.9 FL (6.5-10.1) L Neutrophils (%) (Auto) % (45.0-75.0) Lymphocytes (%) (Auto) % (20.0-45.0) Monocytes (%) (Auto) % (1.0-10.0) Eosinophils (%) (Auto) % (0.0-3.0) Basophils (%) (Auto) % (0.0-2.0) Differential Total Cells Counted 100 Neutrophils % (Manual) 70 % (45-75) Lymphocytes % (Manual) 14 % (20-45) L Monocytes % (Manual) 9 % (1-10) Eosinophils % (Manual) 6 % (0-3) H Basophils % (Manual) 0 % (0-2) Band Neutrophils 1 % (0-8) Platelet Estimate Decreased L Platelet Morphology Normal Hypochromasia 2+ Anisocytosis 2+ Sodium Level 137 MMOL/L (136-145) Potassium Level 2.9 MMOL/L (3.5-5.1) L Chloride Level 103 MMOL/L (98-107) Carbon Dioxide Level 25 MMOL/L (21-32) Anion Gap 9 mmol/L (5-15) Blood Urea Nitrogen 11 mg/dL (7-18) Creatinine 1.2 MG/DL (0.55-1.30) Estimat Glomerular Filtration Rate 46.3 mL/min (>60) Glucose Level 89 MG/DL (74-106) Calcium Level 7.5 MG/DL (8.5-10.1) L Total Bilirubin 4.2 MG/DL (0.2-1.0) H Direct Bilirubin 2.5 MG/DL (0.0-0.3) H Aspartate Amino Transf (AST/SGOT) 22 U/L (15-37) Alanine Aminotransferase (ALT/SGPT) < 6 U/L (12-78) L Alkaline Phosphatase 181 U/L (46-116) H Total Protein 6.1 G/DL (6.4-8.2) L Albumin 1.3 G/DL (3.4-5.0) L Globulin 4.8 g/dL Albumin/Globulin Ratio 0.3 (1.0-2.7) L Current Medications Medications (Trade) Dose Ordered Sig/Almaz Route PRN Reason Start Time Stop Time Status Last Admin Dose Admin Acetaminophen (Tylenol) 650 mg Q4H PRN ORAL fever 05/04/19 21:15 06/02/19 13:14 Dextrose (Dextrose 50%) 25 ml Q30M PRN IV Hypoglycemia 05/04/19 21:15 06/02/19 13:14 Dextrose (Dextrose 50%) 50 ml Q30M PRN IV Hypoglycemia 05/04/19 21:15 06/02/19 13:14 Diphenhydramine HCl (Benadryl) 25 mg Q6H PRN ORAL Itching/Pruritis 05/04/19 21:15 06/03/19 21:14 05/06/19 11:39 Furosemide (Lasix) 40 mg EVERY 8 HOURS ORAL 05/04/19 22:00 06/03/19 13:59 05/09/19 05:22 Lactulose (Cephulac) 15 gm THREE TIMES A DAY ORAL 05/09/19 09:00 06/04/19 12:59 05/09/19 12:31 Morphine Sulfate (Morphine Sulfate) 2 mg Q4H PRN IVP severe Pain (Pain Scale 7-10) 05/04/19 21:15 05/10/19 13:14 05/09/19 12:36 Nitroglycerin (Ntg) 0.4 mg Q5M X 3 DOSES PRN SL Prn Chest Pain 05/04/19 21:00 06/02/19 13:14 Ondansetron HCl (Zofran) 4 mg Q6H PRN IVP Nausea & Vomiting 05/04/19 21:15 06/03/19 21:14 05/07/19 11:55 Pantoprazole (Protonix) 40 mg DAILY IVP 05/05/19 09:00 06/03/19 08:59 05/09/19 08:41 Piperacillin Sod/ Tazobactam Sod 3.375 gm/Sodium Chloride 110 ml @ 27.5 mls/hr EVERY 8 HOURS IVPB 05/04/19 22:00 05/16/19 21:59 05/09/19 05:22 Polyethylene Glycol (Miralax) 17 gm HSPRN PRN ORAL Constipation 05/04/19 21:15 06/03/19 21:14 Rifaximin (Xifaxan) 550 mg EVERY 12 HOURS ORAL 05/05/19 21:00 05/12/19 20:59 05/09/19 08:41 Sucralfate (Carafate) 1 gm BIAC ORAL 05/05/19 06:30 06/04/19 06:29 05/09/19 05:21 Temazepam (Restoril) 15 mg HSPRN PRN ORAL Insomnia 05/04/19 21:15 05/11/19 21:14 Edyta Hartley M.D. May 09, 2019 13:00
[2019-05-09] MEDS ORDERED: ZOSYN 3.373.375 GM/1 IVPB (13:50)
--- NOTE | 2019-05-09 13:52 | Pulmonology Progress Note ---
Assessment/Plan Problems: (1) Bacteremia due to Gram-negative bacteria (2) Acute metabolic encephalopathy (3) Liver cirrhosis (4) Anemia (5) Ascites (6) Anasarca (7) Acute on chronic alcoholic liver disease Assessment/Plan more awake doing better continue abx, Zosy check cultures, reviewed prbc prn symptomatic treatment dc to [facility] today Subjective ROS Limited/Unobtainable: No Constitutional: Reports: no symptoms HEENT: Repors: no symptoms Allergies: Coded Allergies: No Known Allergies (Unverified , 01/31/19) Objective Last 24 Hour Vital Signs Date Time Temp Pulse Resp B/P (MAP) Pulse Ox O2 Delivery O2 Flow Rate FiO2 05/09/19 12:00 98.0 83 17 130/64 (86) 98 05/09/19 09:00 Room Air 05/09/19 08:00 97.7 80 16 134/68 (90) 97 05/09/19 04:00 97.9 76 20 119/68 (85) 96 05/09/19 00:00 98.1 80 20 131/72 (91) 97 05/08/19 21:00 Room Air 05/08/19 20:00 97.7 81 18 132/75 (94) 96 05/08/19 16:00 98.5 81 18 125/67 (86) 94 Intake and Output 05/08/19 05/09/19 19:00 07:00 Intake Total 820.0 ml 137.5 ml Output Total 700 ml Balance 820.0 ml -562.5 ml IV Total 220.0 ml 137.5 ml Other 600 ml Output Urine Total 700 ml # Bowel Movements 1 2 General Appearance: WD/WN HEENT: normocephalic, atraumatic Respiratory/Chest: lungs clear, normal breath sounds Breasts: no masses Cardiovascular: normal peripheral pulses Abdomen: normal bowel sounds, no organomegaly, no scars Extremities: no clubbing Skin: no rash Laboratory Tests 05/09/19 06:15: White Blood Count 4.7L, Red Blood Count 3.54L, Hemoglobin 9.4L, Hematocrit 30.3L , Mean Corpuscular Volume 86, Mean Corpuscular Hemoglobin 26.7L, Mean Corpuscular Hemoglobin Concent 31.1L, Red Cell Distribution Width 22.0H, Platelet Count 59L, Mean Platelet Volume 5.9L, Neutrophils (%) (Auto) , Lymphocytes (%) (Auto) , Monocytes (%) (Auto) , Eosinophils (%) (Auto) , Basophils (%) (Auto) , Differential Total Cells Counted 100, Neutrophils % ( Manual) 70, Lymphocytes % (Manual) 14L, Monocytes % (Manual) 9, Eosinophils % ( Manual) 6H, Basophils % (Manual) 0, Band Neutrophils 1, Platelet Estimate DecreasedL, Platelet Morphology Normal, Hypochromasia 2+, Anisocytosis 2+, Sodium Level 137, Potassium Level 2.9L, Chloride Level 103, Carbon Dioxide Level 25, Anion Gap 9, Blood Urea Nitrogen 11, Creatinine 1.2, Estimat Glomerular Filtration Rate 46.3, Glucose Level 89, Calcium Level 7.5L, Total Bilirubin 4.2H, Direct Bilirubin 2.5H, Aspartate Amino Transf (AST/SGOT) 22, Alanine Aminotransferase (ALT/SGPT) < 6L, Alkaline Phosphatase 181H, Total Protein 6.1L, Albumin 1.3L, Globulin 4.8, Albumin/Globulin Ratio 0.3L Current Medications Medications (Trade) Dose Ordered Sig/Almaz Route PRN Reason Start Time Stop Time Status Last Admin Dose Admin Acetaminophen (Tylenol) 650 mg Q4H PRN ORAL fever 05/04/19 21:15 06/02/19 13:14 Dextrose (Dextrose 50%) 25 ml Q30M PRN IV Hypoglycemia 05/04/19 21:15 06/02/19 13:14 Dextrose (Dextrose 50%) 50 ml Q30M PRN IV Hypoglycemia 05/04/19 21:15 06/02/19 13:14 Diphenhydramine HCl (Benadryl) 25 mg Q6H PRN ORAL Itching/Pruritis 05/04/19 21:15 06/03/19 21:14 05/06/19 11:39 Furosemide (Lasix) 40 mg EVERY 8 HOURS ORAL 05/04/19 22:00 06/03/19 13:59 05/09/19 05:22 Lactulose (Cephulac) 15 gm THREE TIMES A DAY ORAL 05/09/19 09:00 06/04/19 12:59 05/09/19 12:31 Morphine Sulfate (Morphine Sulfate) 2 mg Q4H PRN IVP severe Pain (Pain Scale 7-10) 05/04/19 21:15 05/10/19 13:14 05/09/19 12:36 Nitroglycerin (Ntg) 0.4 mg Q5M X 3 DOSES PRN SL Prn Chest Pain 05/04/19 21:00 06/02/19 13:14 Ondansetron HCl (Zofran) 4 mg Q6H PRN IVP Nausea & Vomiting 05/04/19 21:15 06/03/19 21:14 05/07/19 11:55 Pantoprazole (Protonix) 40 mg DAILY IVP 05/05/19 09:00 06/03/19 08:59 05/09/19 08:41 Piperacillin Sod/ Tazobactam Sod 3.375 gm/Sodium Chloride 110 ml @ 27.5 mls/hr EVERY 8 HOURS IVPB 05/04/19 22:00 05/16/19 21:59 05/09/19 05:22 Polyethylene Glycol (Miralax) 17 gm HSPRN PRN ORAL Constipation 05/04/19 21:15 06/03/19 21:14 Rifaximin (Xifaxan) 550 mg EVERY 12 HOURS ORAL 05/05/19 21:00 05/12/19 20:59 05/09/19 08:41 Sucralfate (Carafate) 1 gm BIAC ORAL 05/05/19 06:30 06/04/19 06:29 05/09/19 05:21 Temazepam (Restoril) 15 mg HSPRN PRN ORAL Insomnia 05/04/19 21:15 05/11/19 21:14 Shireen Khan MD May 09, 2019 13:51
[2019-05-09 16:00] VITALS: BP 126/70
[2019-05-09] MEDS ORDERED: Tubing IV Secondary IV ONE (16:04)
[2019-05-09] MEDS ORDERED: NS 500ML ONE (16:04)
[2019-05-09] MEDS ORDERED: NS 275ml ONE (16:04)
--- NOTE | 2019-05-09 17:12 | NUR ---
NURSE NOTES: Report given to NAVA Alicea @ [facility]
--- NOTE | 2019-05-09 19:00 | Internal Med Progress Note ---
Subjective Date of Service: May 09, 2019 Physician Name Jose Benjamin Attending Physician Goldy Amador MD Current Medications Medications (Trade) Dose Ordered Sig/Almaz Route PRN Reason Start Time Stop Time Status Last Admin Dose Admin Acetaminophen (Tylenol) 650 mg Q4H PRN ORAL fever 05/04/19 21:15 06/02/19 13:14 Dextrose (Dextrose 50%) 25 ml Q30M PRN IV Hypoglycemia 05/04/19 21:15 06/02/19 13:14 Dextrose (Dextrose 50%) 50 ml Q30M PRN IV Hypoglycemia 05/04/19 21:15 06/02/19 13:14 Diphenhydramine HCl (Benadryl) 25 mg Q6H PRN ORAL Itching/Pruritis 05/04/19 21:15 06/03/19 21:14 05/06/19 11:39 Furosemide (Lasix) 40 mg EVERY 8 HOURS ORAL 05/04/19 22:00 06/03/19 13:59 05/09/19 13:57 Lactulose (Cephulac) 15 gm THREE TIMES A DAY ORAL 05/09/19 09:00 06/04/19 12:59 05/09/19 12:31 Morphine Sulfate (Morphine Sulfate) 2 mg Q4H PRN IVP severe Pain (Pain Scale 7-10) 05/04/19 21:15 05/10/19 13:14 05/09/19 12:36 Nitroglycerin (Ntg) 0.4 mg Q5M X 3 DOSES PRN SL Prn Chest Pain 05/04/19 21:00 06/02/19 13:14 Ondansetron HCl (Zofran) 4 mg Q6H PRN IVP Nausea & Vomiting 05/04/19 21:15 06/03/19 21:14 05/07/19 11:55 Pantoprazole (Protonix) 40 mg DAILY IVP 05/05/19 09:00 06/03/19 08:59 05/09/19 08:41 Piperacillin Sod/ Tazobactam Sod 3.375 gm/Sodium Chloride 110 ml @ 27.5 mls/hr EVERY 8 HOURS IVPB 05/04/19 22:00 05/16/19 21:59 05/09/19 13:52 Polyethylene Glycol (Miralax) 17 gm HSPRN PRN ORAL Constipation 05/04/19 21:15 06/03/19 21:14 Rifaximin (Xifaxan) 550 mg EVERY 12 HOURS ORAL 05/05/19 21:00 05/12/19 20:59 05/09/19 08:41 Sucralfate (Carafate) 1 gm BIAC ORAL 05/05/19 06:30 06/04/19 06:29 05/09/19 05:21 Temazepam (Restoril) 15 mg HSPRN PRN ORAL Insomnia 05/04/19 21:15 05/11/19 21:14 Allergies: Coded Allergies: No Known Allergies (Unverified , 01/31/19) ROS Limited/Unobtainable: No Constitutional: Reports: no symptoms HEENT: Reports: no symptoms Cardiovascular: Reports: no symptoms Respiratory: Reports: no symptoms Gastrointestinal/Abdominal: Reports: no symptoms Genitourinary: Reports: no symptoms Neurologic/Psychiatric: Reports: no symptoms Subjective 58 YO F with H/O hepatic cirrhosis with ascites admitted with abdominal pain. Now Sepsis. Cover for Int Eloy-DR Amador Objective Last Vital Signs Date Time Temp Pulse Resp B/P (MAP) Pulse Ox O2 Delivery O2 Flow Rate FiO2 05/09/19 16:00 98.4 84 17 126/70 (88) 98 05/09/19 09:00 Room Air 05/03/19 11:12 2.0 Laboratory Tests Test 05/09/19 06:15 White Blood Count 4.7 K/UL (4.8-10.8) L Red Blood Count 3.54 M/UL (4.20-5.40) L Hemoglobin 9.4 G/DL (12.0-16.0) L Hematocrit 30.3 % (37.0-47.0) L Mean Corpuscular Volume 86 FL (80-99) Mean Corpuscular Hemoglobin 26.7 PG (27.0-31.0) L Mean Corpuscular Hemoglobin Concent 31.1 G/DL (32.0-36.0) L Red Cell Distribution Width 22.0 % (11.6-14.8) H Platelet Count 59 K/UL (150-450) L Mean Platelet Volume 5.9 FL (6.5-10.1) L Neutrophils (%) (Auto) % (45.0-75.0) Lymphocytes (%) (Auto) % (20.0-45.0) Monocytes (%) (Auto) % (1.0-10.0) Eosinophils (%) (Auto) % (0.0-3.0) Basophils (%) (Auto) % (0.0-2.0) Differential Total Cells Counted 100 Neutrophils % (Manual) 70 % (45-75) Lymphocytes % (Manual) 14 % (20-45) L Monocytes % (Manual) 9 % (1-10) Eosinophils % (Manual) 6 % (0-3) H Basophils % (Manual) 0 % (0-2) Band Neutrophils 1 % (0-8) Platelet Estimate Decreased L Platelet Morphology Normal Hypochromasia 2+ Anisocytosis 2+ Sodium Level 137 MMOL/L (136-145) Potassium Level 2.9 MMOL/L (3.5-5.1) L Chloride Level 103 MMOL/L (98-107) Carbon Dioxide Level 25 MMOL/L (21-32) Anion Gap 9 mmol/L (5-15) Blood Urea Nitrogen 11 mg/dL (7-18) Creatinine 1.2 MG/DL (0.55-1.30) Estimat Glomerular Filtration Rate 46.3 mL/min (>60) Glucose Level 89 MG/DL (74-106) Calcium Level 7.5 MG/DL (8.5-10.1) L Total Bilirubin 4.2 MG/DL (0.2-1.0) H Direct Bilirubin 2.5 MG/DL (0.0-0.3) H Aspartate Amino Transf (AST/SGOT) 22 U/L (15-37) Alanine Aminotransferase (ALT/SGPT) < 6 U/L (12-78) L Alkaline Phosphatase 181 U/L (46-116) H Total Protein 6.1 G/DL (6.4-8.2) L Albumin 1.3 G/DL (3.4-5.0) L Globulin 4.8 g/dL Albumin/Globulin Ratio 0.3 (1.0-2.7) L Intake and Output 05/08/19 05/09/19 18:59 06:59 Intake Total 820.0 ml 137.5 ml Output Total 700 ml Balance 820.0 ml -562.5 ml IV Total 220.0 ml 137.5 ml Other 600 ml Output Urine Total 700 ml # Bowel Movements 1 2 Objective PHYSICAL EXAMINATION: GENERAL: The patient is a well-developed and well-nourished obese female, in moderate abdominal pain and distress. HEENT: Eyes, pupils are equal and responsive to light and accommodation. Extraocular movements are intact. No scleral icterus is noted. CHEST: Lungs are clear to auscultation bilaterally without wheezes or rales. CARDIOVASCULAR: Regular rhythm and rate. S1 and S2 are normal without murmurs, rubs, or gallops. ABDOMEN: Soft, diffusely tender with decreased bowel sounds. No evidence of hepatosplenomegaly. Currently, no rebound or guarding noted. There is no fluid wave present. NEUROLOGICAL: Cranial nerves II through XII are grossly intact without focal deficits. Assessment/Plan Assessment/Plan ASSESSMENT: This is a 58-year-old female. 1. Abdominal pain. 2. Nausea with vomiting. 3. Fever. 4. Elevated liver function tests. 5. Urinary tract infection. 6. Hepatic encephalopathy. 7. Alcoholic cirrhosis of the liver. 8. Hypertension. 9. Diabetes type 2. 10. Thrombocytopenia. 11. Ascites. 12. Hypercholesterolemia. 13. Portal hypertension. 14. Severe anemia 15. Sepsis=Acenitobacter TREATMENT: 1. Elevated liver function tests/hepatic encephalopathy/alcoholic cirrhosis of the liver. A Gastroenterology consultation has been obtained with Dr. Jon Torres. Continue Prevacid as above. Await paracentesis today. 2. Urinary tract infection/sepsis. Urine culture = yeast. aBX= Zosyn per ID 3. Hypertension. The patient is currently hypotensive. 4. Diabetes type 2. A NovoLog sliding scale has been instituted. 5. Thrombocytopenia. This is probably secondary to chronic liver disease. 6. Hepatic encephalopathy. Continue lactulose and Xifaxan as above. 7. Ascites as above. S/P paracentesis 05/05/19 8. Hypercholesterolemia. 9. Portal hypertension. 10. S/P Transfusion 1 unit PRBC 05/04/19 Jose Benjamin MD May 09, 2019 19:00
--- NOTE | 2019-05-09 19:00 | NUR ---
NURSE NOTES: Received a report from CHAVA Leos. Pt is in stable condition. Taiwanese speaker only. On room air. No c/o pain/discomfort. Will continue to monitor. Awaiting for ambulance to pickling grader the pt.
--- NOTE | 2019-05-09 19:12 | NUR ---
HAND-OFF: Report given to CHAVA Kang. Pt is in stable condition; plan of care endorsed. [facility] to be here at 1930
[2019-05-09 20:00] VITALS: BP 122/74
--- NOTE | 2019-05-09 21:05 | NUR ---
NURSE NOTES: Pt c/o pain when flushing saline in IV heplock. Removed the IV heplock. Put dressing on the site, no bleeding noted. Ambulance personnel arrived and picked up the pt. Pt is in stable condition.
--- NOTE | 2019-05-10 11:06 | Discharge Summary ---
Discharge Summary Discharge Summary _ DATE OF ADMISSION: 05/03/2019 DATE OF DISCHARGE: 05/19/1999 2019 DISCHARGED BY: Dr. Amador REASON FOR ADMISSION: 58 years old female with past medical history of end-stage cirrhosis, recurrent ascites, ETOH abuse, reluctant to comfort care, [facility] resident, presented with chief complaint of altered level of consciousness , fever and increased abdominal girth. Upon evaluation patient was febrile with temperature 103.1, tachycardic and required supplemental oxygen. Laboratory work-up revealed leukocytosis WBC 14.3, hemoglobin 8.9, hematocrit 28.9. Platelets 40. Lactic acid 2.6. Stable electrolytes. BUN 18, creatinine 1.3. Glucose 97. AST 42, ALT 20 . Lipase 54. Total bilirubin 3.8, direct bilirubin 2.2 Albumin 1.5. Ammonia 30. Urinalysis revealed +3 leukocyte esterase , pyuria and moderate bacteria along with moderate yeast. APTT 45. EKG revealed sinus rhythm , no acute ischemic changes. Chest x-ray revealed no acute cardiopulmonary pathology. Given patient presentation: leukocytosis, recent positive blood culture on previous hospitalization , fever, lactic acidosis, broad-spectrum antibiotic initiated in the emergency room, and patient admitted for further management. CONSULTANTS: hospitalist Dr. Khan ID specialist Dr. Hartley GI specialist Dr. Torres [facility]: Patient admitted and started on broad-spectrum antibiotics and diuretic. Patient undergone paracentesis on 05/04 yielding 3.5 L of ascitic fluid. Ascitic fluid culture revealed no evidence of growth. Initial blood cultures were positive for Achromobacter , and urine culture revealed Arlin. Repeated blood culture revealed no growth. Leukocytosis resolved. Fevers, initially present, - resolved Infectious disease specialist recommended to complete Zosyn for total of 14 days for gram-negative bacteremia. Arlin in urine was likely colonizer as per ID specialist. Patient reported no urinary symptoms. GI specialist followed. Patient undergone EGD on previous admission on April 22, 2019. No gastric or esophageal varices were noted at that time. Portal hypertensive gastropathy was observed. Hemoglobin and hematocrit were closely monitored with goal to keep hemoglobin above 7. Patient received 1 unit of packed red blood cells. Prior to discharge hemoglobin 9.4, hematocrit 30.3. Platelet count 59. Renal parameters and electrolytes were closely monitored. Electrolytes corrected as needed/potassium. Upon discharge, creatinine down to 1.2, BUN 11. GI prophylaxis with PPI and Carafate provided, given history of recent gastric ulcer. Lactulose continued. Symptomatic treatment provided. Antiemetic provided as needed. Pain management was addressed. Patient clinically stabilized and was ready for transfer back to [facility] facility to complete antibiotic for total of 2 weeks. FINAL DIAGNOSES: Sepsis with gram negative bacteremia/ Achromobacter Recurrent ascites, status post paracentesis 9/4 - 3.5 L removal Leukocytosis -resolved Acute metabolic encephalopathy Acute on chronic alcoholic liver disease Liver cirrhosis Hypertension ETOH abuse Anemia Thrombocytopenia Abnormal LFT /elevated bilirubin Abdominal pain Constipation Hypertension Diabetes mellitus type 2 DISCHARGE MEDICATIONS: See Medication Reconciliation list. DISCHARGE INSTRUCTIONS: Patient was discharged to the [facility] facility. Follow up with medical doctor at the facility. I have been assigned to dictate discharge summary for this account. I was not involved in the patient's management. Corinna Guzman NP May 10, 2019 11:06
== END 2019-05-09 21:15 | DRG 871 ==
LOC: EDBD 11:19 → EDBEDREQ 12:09 → EMR 12:29 → 2E 12:40 → EDBEDREQ 12:59 → 4E 05-04 21:23
PROC: 0W9G3ZZ Drainage of Peritoneal Cavity, Percutaneous Approach (ICD-10-PCS; principal; 2019-05-04)
PROC: 30233N1 Transfusion of Nonautologous Red Blood Cells into Peripheral Vein, Percutaneous Approach (ICD-10-PCS; principal; 2019-05-04)
DX: A41.50 Gram-negative sepsis, unspecified (principal); G92 Toxic encephalopathy; K76.6 Portal hypertension; N39.0 Urinary tract infection, site not specified; K70.31 Alcoholic cirrhosis of liver with ascites; K72.90 Hepatic failure, unspecified without coma; I10 Essential (primary) hypertension; E11.9 Type 2 diabetes mellitus without complications; D69.6 Thrombocytopenia, unspecified; E78.00 Pure hypercholesterolemia, unspecified; F10.10 Alcohol abuse, uncomplicated; D64.9 Anemia, unspecified
CPT/HCPCS: 36415; 71045; 76942; 80048; 80053; 81003; 82140; 82150; 82248; 82270; 83605; 83690; 83735; 84100; 85007; 85025; 85730; 86850; 86900; 86901; 86920; 87040; 87070; 87081; 87086; 87181; 87205; 88104; 89051; 93005; 96361; 96365; 96368; 99285; J2405; J8499

== ENCOUNTER 2019-05-17 19:24 | Inpatient (IN) | payer MEDICARE, OTHER ==
[~2019-05-17] VITALS: Ht 152.4 cm; Wt 94.1 kg
[~2019-05-17 19:24] MED LIST changes: +ZOSYN 3.373.375 GM/1 IVPB
[2019-05-17 19:36] VITALS: BP 158/98
--- NOTE | 2019-05-17 19:36 | NUR ---
ED Nurse Note: pt DAVID MULLEN 285 via gurney from [facility] for AMS with abd distention. pt is not speaking words but screamng and yelling. actively moving her arms. Pt VSS at this time.
[2019-05-17] MEDS ORDERED: Haloperidol 5mg/ml Inj ONE (19:42)
--- NOTE | 2019-05-17 19:42 | Emergency Room Report ---
History of Present Illness General Chief Complaint: Altered Level of Consciousness Source: Medical Record Present Illness HPI 58-year-old female history of hepatic encephalopathy presents with acute altered mental status just prior to arrival, history is limited secondary to patient's altered mentation, unknown aggravating alleviating factors symptoms have been constant for 1 day patient was sent to the hospital for evaluation of her acute altered mental status Allergies: Coded Allergies: No Known Allergies (Unverified , 01/31/19) Patient History Limited by: medical condition - Confused altered Past Medical History: see triage record Now: No Reviewed Nursing Documentation: PMH: Agreed; PSxH: Agreed Nursing Documentation-PMH Hx Cardiac Problems: Yes Hx Hypertension: Yes Hx Diabetes: Yes Hx Cancer: No Hx Gastrointestinal Problems: Yes Hx Neurological Problems: Yes - Hepatic encephalopathy Review of Systems All Other Systems: limited - Confused altered Physical Exam Vital Signs Date Time Temp Pulse Resp B/P (MAP) Pulse Ox O2 Delivery O2 Flow Rate FiO2 05/17/19 19:28 97.9 90 18 160/100 (120) 98 Room Air Sp02 EP Interpretation: reviewed, normal General Appearance: alert, mild distress Head: normocephalic, atraumatic Eyes: bilateral eye PERRL, bilateral eye EOMI ENT: uvula midline, dry mucus membranes Neck: supple, thyroid normal, supple/symm/no masses Respiratory: lungs clear, no respiratory distress, no retraction, no accessory muscle use Cardiovascular #1: normal peripheral pulses, no edema, no gallop, no murmur, tachycardia Gastrointestinal: non tender, no guarding, no rebound, distended Musculoskeletal: normal inspection Neurologic: alert, responsive, other - Confused Skin: warm/dry, jaundice Procedures Critical Care Time Critical Care Time Given the critical condition in which the patient arrived, the patient was immediately assessed by myself and the nurse, and cardiac monitoring initiated due to the potential for rapid decompensation of the patient's clinical condition. During the course of the patient's stay, I spent a considerable amount of time at the bedside performing serial re-evaluations of the patient's hemodynamic and clinical status because of the recognized potential threat to life or limb in this condition. I then had a chance to review not only all of the available current laboratory and radiographic studies obtained today, but I also reviewed old records available to me at the time. Additionally, any ancillary information available including conference planner records were reviewed. Sequential vital signs were obtained. Critical Care time of 33 minutes was performed exclusive of billable procedures. Central Line Central Line #1: Consent: Emergent Central Line Lumen: triple Maximal Sterile Barrier Tech: yes cap, yes mask, yes sterile gown, yes sterile gloves, yes large sterile sheet, yes hand hygiene, yes chlorhexidine prep Central Line Postion: femoral (R) Anesthesia: local cc's of anesthesia: 5 Complications: patient combative, femoral artery nicked Attempts: One Patient Tolerated: Poor Complications: Other - patient combative, femoral artery nicked Central Line #2: Consent: Emergent Central Line Lumen: triple Maximal Sterile Barrier Tech: yes cap, yes mask, yes sterile gown, yes sterile gloves, yes large sterile sheet, yes hand hygiene, yes chlorhexidine prep Central Line Postion: femoral (L) Anesthesia: local cc's of anesthesia: 5 Complications: none Central Line Post Position: sutured, good blood return Attempts: One Patient Tolerated: Well Complications: None Intubation Intubation : Consent: Emergent Time of Intubation: 22:00 Intubation Method: orotracheal Tube Size (cm): 7.5 Medications: Etomidate, Rocuronium Breath Sounds after Intubation: equal Intubation Complications: no complications Post Intubation Xray: Yes Attempts: One Patient Tolerated: Well Complications: None Medical Decision Making Diagnostic Impression: Primary Impression: Altered level of consciousness Additional Impressions: Hepatic encephalopathy Sepsis Qualified Codes: A41.9 - Sepsis, unspecified organism ER Course 58-year-old female combative, requiring sedation, patient may be suffering from hepatic encephalopathy versus sepsis versus unspecified AMS Patient very combative, was a danger to herself, risk of falling out of bed, pulling out her lines, patient is currently encephalopathic, jaundiced patient upgraded to stepdown/ICU Patient received 20 of Haldol, 100 of Benadryl, 4 of Ativan but remained combative Attempted to put in new access given lack of access due to patient being altered , patient was moving during central line insertion of the right femoral artery was nicked with the bleeding requiring pressure dressing Patient was intubated emergently for airway protection, danger to herself Central line was then placed in the left femoral vein, without any complications , all procedures were emergent and necessary for patient safety patient was upgraded to ICU patient will be admitted to Dr. amador antibiotics will be started. Lactulose will be started concern for sepsis, broad spectrum antibiotics started. Laboratory Tests Test 05/17/19 19:31 05/17/19 21:20 05/17/19 21:45 Troponin I Pending Sodium Level 135 MMOL/L (136-145) L Potassium Level 5.2 MMOL/L (3.5-5.1) H Chloride Level 104 MMOL/L (98-107) Carbon Dioxide Level 17 MMOL/L (21-32) L Anion Gap 14 mmol/L (5-15) Blood Urea Nitrogen Pending Creatinine 2.8 MG/DL (0.55-1.30) H Estimate Glomerular Filtration Rate 17.4 mL/min (>60) Glucose Level 107 MG/DL (74-106) H Lactic Acid Level Pending Calcium Level 8.7 MG/DL (8.5-10.1) Phosphorus Level 5.0 MG/DL (2.5-4.9) H Magnesium Level 1.6 MG/DL (1.8-2.4) L Total Bilirubin 6.1 MG/DL (0.2-1.0) H Direct Bilirubin Pending Aspartate Amino Transferase (AST) 43 U/L (15-37) H Alanine Aminotransferase (ALT) 17 U/L (12-78) Alkaline Phosphatase 201 U/L (46-116) H Ammonia 152 umol/L (11-32) H Total Creatine Kinase Pending Creatine Kinase MB 3.6 NG/ML (0.0-3.6) Pro-B-Type Natriuretic Peptide Pending Total Protein Pending Albumin Pending Globulin Pending Lipase 48 U/L (73-393) L White Blood Count 17.6 K/UL (4.8-10.8) H Red Blood Count 3.02 M/UL (4.20-5.40) L Hemoglobin 8.6 G/DL (12.0-16.0) L Hematocrit 27.4 % (37.0-47.0) L Mean Corpuscular Volume 91 FL (80-99) Mean Corpuscular Hemoglobin 28.5 PG (27.0-31.0) Mean Corpuscular Hemoglobin Concent 31.4 G/DL (32.0-36.0) L Red Cell Distribution Width 22.8 % (11.6-14.8) H Platelet Count 106 K/UL (150-450) L Mean Platelet Volume 7.7 FL (6.5-10.1) Neutrophils (%) (Auto) % (45.0-75.0) Lymphocytes (%) (Auto) % (20.0-45.0) Monocytes (%) (Auto) % (1.0-10.0) Eosinophils (%) (Auto) % (0.0-3.0) Basophils (%) (Auto) % (0.0-2.0) Neutrophils % (Manual) Pending Lymphocytes % (Manual) Pending Platelet Estimate Pending Platelet Morphology Pending Prothrombin Time 19.5 SEC (9.30-11.50) H Prothrombin Time INR 1.9 (0.9-1.1) H PTT 42 SEC (23-33) H EKG Diagnostic Results EKG Time: 20:21 EP Interpretation: SR, rate 93, QTc 502, no acute ST elevations left axis deviation Rhythm Strip Diag. Results Rhythm Strip Time: 20:35 EP Interpretation: yes Rate: 98 Rhythm: NSR, no PVC's, no ectopy Chest X-Ray Diagnostic Results Chest X-Ray Diagnostic Results : Chest X-Ray Ordered: Yes # of Views/Limited/Complete: 1 View Indication: Other - AMS EP Interpretation: Yes Interpretation: no consolidation, no effusion, no pneumothorax, no acute cardiopulmonary disease Impression: No acute disease Electronically Signed by: Marc Sparks MD Last Vital Signs Date Time Temp Pulse Resp B/P (MAP) Pulse Ox O2 Delivery O2 Flow Rate FiO2 05/17/19 19:28 97.9 90 18 160/100 (120) 98 Room Air Disposition: ADMITTED INPATIENT Condition: Serious Referrals: Goldy Amador MD (PCP) Marc Sparks MD May 17, 2019 19:42
[2019-05-17] MEDS ORDERED: DiphenhydrAMINE 50mg/ml Inj ONE (19:43)
[2019-05-17] MEDS ORDERED: LORazepam Inj 2mg/ml 1ml ONE (19:43)
[2019-05-17] MEDS ORDERED: Vancomycin 1 GM in NS 275 ML IV ONE (19:45)
[2019-05-17] MEDS ORDERED: Haloperidol 5mg/ml Inj IM ONE ×2 (19:45→21:15)
[2019-05-17] MEDS ORDERED: Lactulose 20gm/30ml UDC ORAL ONE (19:45)
[2019-05-17] MEDS ORDERED: LORazepam Inj 2mg/ml 1ml IM ONE (19:45)
[2019-05-17] MEDS ORDERED: Cefepime HCl 2 GM in NS 110 ML IV SCH (19:45)
[2019-05-17] MEDS ORDERED: DiphenhydrAMINE 50mg/ml Inj IM ONE (19:45)
[2019-05-17] MEDS ORDERED: HYDROXYZINE HCL10 M1 PO (19:46)
[2019-05-17] MEDS ORDERED: FUROSEMIDE20 M1 ORAL (19:46)
[2019-05-17] MEDS ORDERED: ASPIR 8181 MG ORAL (19:46)
[2019-05-17] MEDS ORDERED: LACTULOSE20 GM/301 ORAL (19:46)
[2019-05-17] MEDS ORDERED: BANOPHEN25 MG PO (19:46)
[2019-05-17] MEDS ORDERED: AMLODIPINE BESYL5 MG ORAL (19:46)
[2019-05-17] MEDS ORDERED: MULTIVITAMINS1 EAC8 ORAL (19:46)
--- NOTE | 2019-05-17 19:47 | NUR ---
ED Nurse Note: Due to pt moving around actvely and screaming and yelling, unable to insert IV and take imaing at this time. IM haldol, ativan and bennadryl administered. will wait for pt calm down a little and continue care. ER MD aware of situation.
[2019-05-17] MEDS ORDERED: PROPRANOLOL HCL10 MG ORAL (19:50)
[2019-05-17] MEDS ORDERED: PRO-STAT LIQUID30 ML ORAL (19:50)
[2019-05-17] MEDS ORDERED: ZOFRAN4 M3 ORAL (19:50)
[2019-05-17] MEDS ORDERED: PANTOPRAZOLE SO40 MG ORAL (19:50)
[2019-05-17] MEDS ORDERED: OYSTER SHELL 51 EAC2 PO (19:50)
[2019-05-17] MEDS ORDERED: ZINC SULFATE220 M1 ORAL (19:54)
[2019-05-17] MEDS ORDERED: VITAMIN C500 M1 ORAL (19:54)
[2019-05-17] MEDS ORDERED: CARAFATE1 G1 ORAL (19:54)
[2019-05-17] MEDS ORDERED: VITAMIN B-1100 MG ORAL (19:54)
[2019-05-17] MEDS ORDERED: ACETAMINOPHEN-1 EAC1 ORAL (19:54)
[2019-05-17] MEDS ORDERED: ACETAMINOPHEN325 M1 ORAL (19:54)
--- NOTE | 2019-05-17 20:37 | NUR ---
ED Nurse Note: spoke to jose luis from lab. he will come draw the labs for PT
--- NOTE | 2019-05-17 21:00 | NUR ---
ED Nurse Note: labor trainer arrived, blood was drawn and sent to lab.
[2019-05-17] MEDS ORDERED: LORazepam Inj 2mg/ml 1ml IV ONE (21:15)
[2019-05-17] MEDS ORDERED: DiphenhydrAMINE 50mg/ml Inj IVP ONE (21:15)
[2019-05-17 22:00] VITALS: BP 120/76
--- NOTE | 2019-05-17 22:02 | NUR ---
ED Nurse Note: pt was intubated. et tube 7.5 , 20mg etomidate and 100mg Rocuronium was given. pt was put to vent setting of AC 18, peep 5 , TV 420
[2019-05-17 22:03] LABS: AMMONIA 152 umol/L (11-32)
[2019-05-17 22:03] LABS: HEMATOCRIT 27.4 % (37.0-47.0); HEMOGLOBIN 8.6 G/DL (12.0-16.0); MEAN CORPUSCULAR VOLUME 91 FL (80-99); PLATELET COUNT 106 K/UL (150-450); RED BLOOD COUNT 3.02 M/UL (4.20-5.40); RED CELL DISTRIBUTION WIDTH 22.8 % (11.6-14.8); WHITE BLOOD COUNT 17.6 K/UL (4.8-10.8)
[2019-05-17 22:09] LABS: INR 1.9 (0.9-1.1)
--- NOTE | 2019-05-17 22:15 | NUR ---
ED Nurse Note: report given to Lucina Berg RN
[2019-05-17 22:27] LABS: ALANINE AMINOTRANSFERASE 17 U/L (12-78); ALKALINE PHOSPHATASE 201 U/L (46-116); ANION GAP 14 mmol/L (5-15); ASPARTATE AMINO TRANSFERASE 43 U/L (15-37); BILIRUBIN,TOTAL 6.1 MG/DL (0.2-1.0); CALCIUM 8.7 MG/DL (8.5-10.1); CARBON DIOXIDE 17 MMOL/L (21-32); CHLORIDE 104 MMOL/L (98-107); CKMB 3.6 NG/ML (0.0-3.6); CREATININE 2.8 MG/DL (0.55-1.30); POTASSIUM 5.2 MMOL/L (3.5-5.1); SODIUM 135 MMOL/L (136-145)
[2019-05-17 23:17] LABS: ALBUMIN 1.3 G/DL (3.4-5.0); ALBUMIN/GLOBULIN RATIO 0.3 (1.0-2.7); BILIRUBIN,DIRECT 4.2 MG/DL (0.0-0.3); BLOOD UREA NITROGEN 29 mg/dL (7-18); CREATINE KINASE 217 U/L (26-308)
[2019-05-17 23:24] LABS: BILIRUBIN, URINE 2+ (NEGATIVE); GLUCOSE, URINE (UA) NEGATIVE (NEGATIVE); KETONES,URINE 1+ (NEGATIVE); LEUKOCYTE ESTERASE ,URINE 3+ (NEGATIVE); NITRITE,URINE POSITIVE (NEGATIVE); PH,URINE 5 (4.5-8.0); PROTEIN,URINE 2+ (NEGATIVE); UROBILINOGEN,URINE 4 MG/DL (0.0-1.0)
--- NOTE | 2019-05-17 23:29 | NUR ---
ER Nurse Note: Propofol drip starting dose at of 5mcg/kg/hr at rate of 2.64 ml/hr. Incorrect auto-calculation on eMAR. RASS score of -2, light sedation.
[2019-05-17 23:30] VITALS: BP 134/71
[2019-05-17 23:32] LABS: APPEARANCE,URINE CLOUDY; COLOR,URINE YELLOW
--- NOTE | 2019-05-17 23:56 | NUR ---
ER Nurse Note: Pt unresponsive, VSS, on mechanical vent. 1st attempt at central line on RT femoral; pt moved and has dilated femoral artery. Cental line established LT femoral artery infusing NS and propofol. Chest x-ray taken and read by ERMD; confirmed to continue using. 2201- Pt intubated. 2217- X ray taken. 2229- Propofol started at 5 mcg/kg/min. See eMAR for vitals. Tolerating well. 2345- Tried to give report; code blue was called. Will try again later.
[2019-05-18] VITALS (23 sets, daily range): BP systolic 76–148; BP diastolic 32–87
--- NOTE | 2019-05-18 00:55 | NUR ---
ER Nurse Note: Report given to CHAVA Mckeon in ICU for continuity of care. Pt on vent, stable. Central line patent, infusing propofol. All belonging taken with pt.
--- NOTE | 2019-05-18 01:30 | NUR ---
NURSE NOTES: Dr. Whitaker consulted to assess patient's stage 3 sacral wound, at bedside assessing Pt. Dr Benjamin ordered 2 PRBC, currently on hold, for low trending Hemoglobin results. Patient remains stable, no signs of bleeding. Addendum: 05/18/19 at 1349 by Maria Teresa Lamb RN wrong time
--- NOTE | 2019-05-18 01:38 | NUR ---
NURSE NOTES: Received from ER 58 y.o female with DX Sepsis, ALOC, pt was previously sedated with Diprivan at 5mg/hr, now diprivan is dcd Orally intubated on ac mode NSR on the monitor, BP labile, hypothermic 92F warming blanket applied, Central line left femoral site, IVF started D51/2NS at 50 ml/hr. TLC site with drsg dry and intact Pt has sacral excoriation , stage 1 upper back and Rt groin moisture related excoriation, picture taken was done. Tx applied. Draper to gravity with light orange colored urine coming out, moderate in amt. Monitor I and O. monitor lytes, Will continue to monitor.
[2019-05-18] MEDS: D5 1/2NS 1,000 ML IV SCH ×2 (02:40→17:39)
--- NOTE | 2019-05-18 03:30 | NUR ---
NURSE NOTES: Complete bath with bed changed done. Temp still 92F. warming blanket on progress Will continue to monitor.
[2019-05-18 04:42] LABS: HEMATOCRIT 22.1 % (37.0-47.0); MEAN CORPUSCULAR VOLUME 90 FL (80-99); PLATELET COUNT 63 K/UL (150-450); RED BLOOD COUNT 2.46 M/UL (4.20-5.40); RED CELL DISTRIBUTION WIDTH 24.7 % (11.6-14.8)
[2019-05-18 04:57] LABS: HEMOGLOBIN 6.8 G/DL (12.0-16.0)
[2019-05-18 05:24] LABS: ALANINE AMINOTRANSFERASE 10 U/L (12-78); ALBUMIN/GLOBULIN RATIO 0.3 (1.0-2.7); ALKALINE PHOSPHATASE 158 U/L (46-116); ANION GAP 13 mmol/L (5-15); ASPARTATE AMINO TRANSFERASE 30 U/L (15-37); BILIRUBIN,TOTAL 5.5 MG/DL (0.2-1.0); BLOOD UREA NITROGEN 28 mg/dL (7-18); CALCIUM 7.9 MG/DL (8.5-10.1); CARBON DIOXIDE 17 MMOL/L (21-32); CHLORIDE 108 MMOL/L (98-107); CREATININE 2.4 MG/DL (0.55-1.30); POTASSIUM 4.3 MMOL/L (3.5-5.1); SODIUM 138 MMOL/L (136-145)
[2019-05-18 05:30] LABS: BILIRUBIN,DIRECT 3.6 MG/DL (0.0-0.3)
--- NOTE | 2019-05-18 06:00 | NUR ---
NURSE NOTES: Called and left message for MD Khan about hgb this morning. awaiting call back.
--- NOTE | 2019-05-18 06:46 | NUR ---
NURSE NOTES: BP 107/60 SR , temp still 92F rectally.
--- NOTE | 2019-05-18 07:00 | NUR ---
RESPIRATORY NOTES: Received Patient on Vent settings ACVC 18, VT 450, Fio2 50%, PEEP +5. Patient currently intubate with a 7.5 ETT at 21cm at the lip, secured with anchor fast. Patient sleeping. Breath sounds are bilateral clear/ diminished throughout both lung bermeo. Suctioned minimal amount of clear secretions Q2 and PRN. Vent plugged into red outlet. Alarms are on and audible. Will continue to monitor throughout the day.
--- NOTE | 2019-05-18 07:00 | NUR ---
NURSE NOTES: Peripheral pulses Rt lower extremities were palpable and heard as well by doppler. no order of transfusion by Dr Khan
--- NOTE | 2019-05-18 07:41 | NUR ---
HAND-OFF: Report given to Rakesh LARSEN.
--- NOTE | 2019-05-18 07:42 | NUR ---
NURSE NOTES: Received report from CHAVA Joy. Pt is lethargic, responding to physical stimuli, s/p receiving sedatives in ER. Skin and sclera jaundiced. Orally intubated, ETT 7.5, 21 cm @ the lip line. AC:18, TV:450, FiO2:50%, Peep:5. O2 sat 100% on the monitor. NSR on site monitor, BP 109/69. Warming blanket noted, Temp 97.2. Lt femoral Central line, patent and asymptomatic, currently running D5 1/2 NS at 50 ml/hr. Rt lower extremity pulses palpable and audible on doppler, no color deviation and no swelling noted. Pt has a sacral excoriation, stage 1 upper back and Rt groin moisture related excoriation. Draper Catheter noted (inserted 05/17), draining to gravity with gisselle colored urine. Will resume plan of care.
[2019-05-18] MEDS ORDERED: Heparin 5000 units/ml inj SUBQ SCH (09:00)
--- NOTE | 2019-05-18 10:04 | Consultation ---
Consult Note Consult Note asked to evaluate for renal failure Patient seen in ICU intubated discussed with RN 8-year-old female history of hepatic encephalopathy presents with acute altered mental status just prior to arrival, history is limited secondary to patient's altered mentation, unknown aggravating alleviating factors symptoms have been constant for 1 day patient was sent to the hospital for evaluation of her acute altered mental status No Known Allergies (Unverified , 01/31/19) Hx Cardiac Problems: Yes Hx Hypertension: Yes Hx Diabetes: Yes Hx Gastrointestinal Problems: Yes Hx Neurological Problems: Yes - Hepatic encephalopathy data reviewed examined- . Assessment/Plan Renal failure- Acute On May 09, 2019 normal renal parameters Severe Anemia, Acute on chronic- Acute part from right groin attempted line insertion Severe HypoAlbuminemia, Cirrhosis, ALD, Ascites Sepsis- High lactic Acid Acute respiratory failure Previous gram negative bacteremia / Sepsis Hydrate- Antibiotics Monitor renal parameters avoid nephrotoxics transfuse as needed per orders Jovany Byers MD May 18, 2019 10:04
[2019-05-18] MEDS ORDERED: Phytonadione 5 MG in D5W 55 ML IVPB SCH (10:15)
[2019-05-18] MEDS: Lactulose 20gm/30ml UDC NG SCH ×3 (10:30→17:39)
--- NOTE | 2019-05-18 10:30 | NUR ---
NURSE NOTES: Wound nurse at bedside, assessing skin and sacral wound. Dressing changed. Wound nurse suggests physician consult to evaluate Stage 3 sacral wound. Patient repositioned.
--- NOTE | 2019-05-18 10:40 | Consultation ---
History of Present Illness General Date patient seen: May 18, 2019 Chief Complaint: Altered Level of Consciousness Present Illness HPI 58-year-old female with history of end stage liver cirrhosis, ETOH abuse, recurrent hepatic encephalopathy, longterm resident presented to ER with acute altered mental status just prior to arrival, her mental status worsened in ER and she needed to be intubated. Allergies: Coded Allergies: No Known Allergies (Unverified , 01/31/19) Medication History Scheduled Amino Acids/Protein Hydrolys (Pro-Stat Liquid), 30 ML ORAL TWICE A DAY, ( Reported) Amlodipine Besylate* (Amlodipine Besylate*), 5 MG ORAL DAILY, (Reported) Ascorbic Acid* (Vitamin C*), 500 MG ORAL DAILY, (Reported) Aspirin* (Aspir 81*), 81 MG ORAL DAILY, (Reported) Cholestyramine (Cholestyramine Packet), 4 GM ORAL DAILY Diphenhydramine Hcl (Banophen), 25 MG PO EVERY 6 HOURS, (Reported) Furosemide* (Lasix*), 40 MG ORAL DAILY, (Reported) Furosemide* (Lasix*), 20 MG ORAL DAILY, (Reported) Lactulose (Lactulose), 15 GM PO EVERY 8 HOURS, (Reported) Lansoprazole* (Lansoprazole*), 15 MG ORAL DAILY, (Reported) Magnesium Oxide (Magnesium Oxide), 400 MG ORAL BID, (Reported) Multivitamin With Minerals (Multivitamins With Minerals*), 1 TAB ORAL DAILY, ( Reported) Pantoprazole* (Pantoprazole*), 40 MG ORAL DAILY, (Reported) Fpghtvzqkvgo-Oxko-Kcnswvje,Iso (Zosyn 3.375 Gm Pre Mix-Bag), 3.375 GM IVPB EVERY 8 HOURS Propranolol Hcl* (Inderal*), 10 MG ORAL THREE TIMES A DAY, (Reported) Rifaximin* (Xifaxan*), 550 MG ORAL TWICE A DAY, (Reported) Spironolactone (Aldactone), 50 MG ORAL DAILY Sucralfate* (Carafate*), 1 GM ORAL FOUR TIMES A DAY, (Reported) Thiamine Hcl* (Vitamin B-1*), 100 MG ORAL DAILY, (Reported) Zinc Sulfate (Zinc Sulfate*), 220 MG ORAL DAILY, (Reported) Scheduled PRN Acetaminophen With Codeine (T#3) (Tylenol #3 Tab*), 1 TAB ORAL Q6HR PRN for For Pain, (Reported) Acetaminophen* (Acetaminophen 325MG Tablet*), 650 MG ORAL Q4H PRN for Pain Scale (3-5), (Reported) Ondansetron* (Zofran*), 4 MG ORAL Q6H PRN for Nausea & Vomiting, (Reported) Miscellaneous Medications Calcium Carbonate/Vitamin D3 (Oyster Shell 500-Vit D3 200 Pk), 1 EACH PO, ( Reported) Hydroxyzine Hcl (Hydroxyzine Hcl), 10 MG PO, (Reported) Lactulose (Lactulose*), 30 ML ORAL, (Reported) Patient History Healthcare decision maker N Resuscitation status Full Code Advanced Directive on File No Past Medical/Surgical History Past Medical/Surgical History: (1) ETOH abuse (2) Liver cirrhosis Review of Systems All Other Systems: negative except mentioned in HPI Physical Exam General Appearance: WD/WN Lines, tubes and drains: peripheral HEENT: atraumatic Neck: normal alignment Respiratory/Chest: chest wall non-tender, lungs clear Breasts: no masses Cardiovascular/Chest: normal rate Abdomen: normal bowel sounds Genitourinary/Rectal: normal genital exam Extremities: normal range of motion, non-tender Last 24 Hour Vital Signs Date Time Temp Pulse Resp B/P (MAP) Pulse Ox O2 Delivery O2 Flow Rate FiO2 05/18/19 09:01 86 19 50 05/18/19 09:00 92 17 112/71 (85) 100 05/18/19 08:00 Mechanical Ventilator 05/18/19 08:00 97.2 88 17 109/69 (82) 100 05/18/19 08:00 50 05/18/19 07:43 92 05/18/19 07:00 89 19 102/51 (68) 100 05/18/19 07:00 88 21 50 05/18/19 06:00 92 18 107/60 (76) 100 05/18/19 05:09 84 18 50 05/18/19 05:00 83 18 109/62 (78) 100 05/18/19 04:00 81 05/18/19 04:00 81 05/18/19 04:00 Mechanical Ventilator 05/18/19 03:30 80 18 50 05/18/19 03:29 60 05/18/19 03:20 92.0 80 18 132/82 (99) 100 05/18/19 03:00 92.0 93 18 76/43 (54) 100 05/18/19 02:00 92.0 93 18 100/32 (54) 100 05/18/19 01:38 Mechanical Ventilator 05/18/19 01:30 93 18 50 05/18/19 00:55 92 18 118/68 100 Mechanical Ventilator 60 05/18/19 00:29 18 121/65 Mechanical Ventilator 60 05/18/19 00:09 97 18 118/66 100 05/17/19 23:30 98.0 100 18 134/71 100 Mechanical Ventilator 05/17/19 23:29 18 134/71 Mechanical Ventilator 60 05/17/19 22:36 94 18 60 05/17/19 22:35 94 18 100 Mechanical Ventilator 60 05/17/19 22:00 96 18 120/76 96 Mechanical Ventilator 05/17/19 19:36 98.0 92 18 158/98 98 Room Air 05/17/19 19:36 92 18 Room Air 98 05/17/19 19:28 97.9 90 18 160/100 (120) 98 Room Air Intake and Output 05/17/19 05/18/19 19:00 07:00 Intake Total 4635.0 ml Output Total 340 ml Balance 4295.0 ml Intake IV Total 4635.0 ml Output Urine Total 340 ml # Voids 1 Laboratory Tests Test 05/17/19 21:20 05/17/19 21:45 05/17/19 22:40 05/17/19 22:53 Sodium Level 135 MMOL/L (136-145) L Potassium Level 5.2 MMOL/L (3.5-5.1) H Chloride Level 104 MMOL/L (98-107) Carbon Dioxide Level 17 MMOL/L (21-32) L Anion Gap 14 mmol/L (5-15) Blood Urea Nitrogen 29 mg/dL (7-18) H Creatinine 2.8 MG/DL (0.55-1.30) H Estimat Glomerular Filtration Rate 17.4 mL/min (>60) Glucose Level 107 MG/DL (74-106) H Lactic Acid Level 7.50 mmol/L (0.4-2.0) H 7.00 mmol/L (0.66-2.22) H Calcium Level 8.7 MG/DL (8.5-10.1) Phosphorus Level 5.0 MG/DL (2.5-4.9) H Magnesium Level 1.6 MG/DL (1.8-2.4) L Total Bilirubin 6.1 MG/DL (0.2-1.0) H Direct Bilirubin 4.2 MG/DL (0.0-0.3) H Aspartate Amino Transf (AST/SGOT) 43 U/L (15-37) H Alanine Aminotransferase (ALT/SGPT) 17 U/L (12-78) Alkaline Phosphatase 201 U/L (46-116) H Ammonia 152 umol/L (11-32) H Total Creatine Kinase 217 U/L (26-308) Creatine Kinase MB 3.6 NG/ML (0.0-3.6) Creatine Kinase MB Relative Index 1.6 Troponin I 0.000 ng/mL (0.000-0.056) Pro-B-Type Natriuretic Peptide 889 pg/mL (0-125) H Total Protein 5.5 G/DL (6.4-8.2) L Albumin 1.3 G/DL (3.4-5.0) L Globulin 4.2 g/dL Albumin/Globulin Ratio 0.3 (1.0-2.7) L Triglycerides Level 62 MG/DL (30-150) Lipase 48 U/L (73-393) L White Blood Count 17.6 K/UL (4.8-10.8) H Red Blood Count 3.02 M/UL (4.20-5.40) L Hemoglobin 8.6 G/DL (12.0-16.0) L Hematocrit 27.4 % (37.0-47.0) L Mean Corpuscular Volume 91 FL (80-99) Mean Corpuscular Hemoglobin 28.5 PG (27.0-31.0) Mean Corpuscular Hemoglobin Concent 31.4 G/DL (32.0-36.0) L Red Cell Distribution Width 22.8 % (11.6-14.8) H Platelet Count 106 K/UL (150-450) L Mean Platelet Volume 7.7 FL (6.5-10.1) Neutrophils (%) (Auto) % (45.0-75.0) Lymphocytes (%) (Auto) % (20.0-45.0) Monocytes (%) (Auto) % (1.0-10.0) Eosinophils (%) (Auto) % (0.0-3.0) Basophils (%) (Auto) % (0.0-2.0) Differential Total Cells Counted 100 Neutrophils % (Manual) 87 % (45-75) H Lymphocytes % (Manual) 9 % (20-45) L Monocytes % (Manual) 4 % (1-10) Eosinophils % (Manual) 0 % (0-3) Basophils % (Manual) 0 % (0-2) Band Neutrophils 0 % (0-8) Platelet Estimate Decreased L Platelet Morphology Normal Polychromasia 1+ Anisocytosis 3+ Macrocytosis 1+ Prothrombin Time 19.5 SEC (9.30-11.50) H Prothromb Time International Ratio 1.9 (0.9-1.1) H Activated Partial Thromboplast Time 42 SEC (23-33) H Urine Color Yellow Urine Appearance Cloudy Urine pH 5 (4.5-8.0) Urine Specific [place] 1.015 (1.005-1.035) Urine Protein 2+ (NEGATIVE) H Urine Glucose (UA) Negative (NEGATIVE) Urine Ketones 1+ (NEGATIVE) H Urine Blood 2+ (NEGATIVE) H Urine Nitrite Positive (NEGATIVE) H Urine Bilirubin 2+ (NEGATIVE) H Urine Ictotest Positive (NEGATIVE) Urine Urobilinogen 4 MG/DL (0.0-1.0) H Urine Leukocyte Esterase 3+ (NEGATIVE) H Urine RBC 5-10 /HPF (0 - 2) H Urine WBC Tntc /HPF (0 - 2) H Urine Squamous Epithelial Cells Moderate /LPF (NONE/OCC) H Urine Bacteria Many /HPF (NONE) H Urine Yeast Many /HPF (NONE) H Test 05/18/19 04:05 05/18/19 05:15 White Blood Count 10.0 K/UL (4.8-10.8) Red Blood Count 2.46 M/UL (4.20-5.40) L Hemoglobin 6.8 G/DL (12.0-16.0) *L Hematocrit 22.1 % (37.0-47.0) L Mean Corpuscular Volume 90 FL (80-99) Mean Corpuscular Hemoglobin 27.7 PG (27.0-31.0) Mean Corpuscular Hemoglobin Concent 30.9 G/DL (32.0-36.0) L Red Cell Distribution Width 24.7 % (11.6-14.8) H Platelet Count 63 K/UL (150-450) L Mean Platelet Volume 7.5 FL (6.5-10.1) Neutrophils (%) (Auto) % (45.0-75.0) Lymphocytes (%) (Auto) % (20.0-45.0) Monocytes (%) (Auto) % (1.0-10.0) Eosinophils (%) (Auto) % (0.0-3.0) Basophils (%) (Auto) % (0.0-2.0) Differential Total Cells Counted 100 Neutrophils % (Manual) 88 % (45-75) H Lymphocytes % (Manual) 4 % (20-45) L Monocytes % (Manual) 5 % (1-10) Eosinophils % (Manual) 0 % (0-3) Basophils % (Manual) 0 % (0-2) Band Neutrophils 3 % (0-8) Platelet Estimate Decreased L Platelet Morphology Normal Hypochromasia 2+ Anisocytosis 2+ Sodium Level 138 MMOL/L (136-145) Potassium Level 4.3 MMOL/L (3.5-5.1) Chloride Level 108 MMOL/L (98-107) H Carbon Dioxide Level 17 MMOL/L (21-32) L Anion Gap 13 mmol/L (5-15) Blood Urea Nitrogen 28 mg/dL (7-18) H Creatinine 2.4 MG/DL (0.55-1.30) H Estimat Glomerular Filtration Rate 20.8 mL/min (>60) Glucose Level 123 MG/DL (74-106) H Hemoglobin A1c Pending Lactic Acid Level 6.70 mmol/L (0.4-2.0) H 6.70 mmol/L (0.66-2.22) H Uric Acid Pending Calcium Level 7.9 MG/DL (8.5-10.1) L Phosphorus Level Pending Magnesium Level Pending Iron Level Pending Unsaturated Iron Binding Pending Ferritin Pending Total Bilirubin 5.5 MG/DL (0.2-1.0) H Direct Bilirubin 3.6 MG/DL (0.0-0.3) H Gamma Glutamyl Transpeptidase Pending Aspartate Amino Transf (AST/SGOT) 30 U/L (15-37) Alanine Aminotransferase (ALT/SGPT) 10 U/L (12-78) L Alkaline Phosphatase 158 U/L (46-116) H Total Creatine Kinase Pending Troponin I Pending Pro-B-Type Natriuretic Peptide Pending Total Protein 4.4 G/DL (6.4-8.2) L Albumin 1.0 G/DL (3.4-5.0) L Globulin 3.4 g/dL Albumin/Globulin Ratio 0.3 (1.0-2.7) L Triglycerides Level Pending Cholesterol Level Pending LDL Cholesterol Pending HDL Cholesterol Pending Cholesterol/HDL Ratio Pending Vitamin B12 Level Pending Folate Pending Thyroid Stimulating Hormone (TSH) Pending Height (Feet): 5 Height (Inches): 0.00 Weight (Pounds): 195 Medications Current Medications Medications (Trade) Dose Ordered Sig/Almaz Route PRN Reason Start Time Stop Time Status Last Admin Dose Admin Cefepime HCl 1 gm/ Dextrose 55 ml @ 110 mls/hr Q24H IVPB 05/18/19 21:00 05/25/19 20:59 Chlorhexidine Gluconate (Shannon-Hex 2%) 1 applic DAILY@2000 TOPIC 05/18/19 20:00 06/17/19 19:59 Dextrose (Dextrose 50%) 25 ml Q30M PRN IV Hypoglycemia 05/17/19 21:45 06/16/19 21:44 Dextrose (Dextrose 50%) 50 ml Q30M PRN IV Hypoglycemia 05/17/19 21:45 06/16/19 21:44 Dextrose/Sodium Chloride 1,000 ml @ 50 mls/hr Q20H IV 05/17/19 21:38 06/16/19 21:37 05/18/19 02:40 Lorazepam (Ativan 2mg/ml 1ml) 0.5 mg Q4H PRN IV For Anxiety 05/17/19 21:45 05/24/19 21:44 Metronidazole 100 ml @ 100 mls/hr Q6H IVPB 05/18/19 08:00 05/25/19 07:59 05/18/19 08:22 Morphine Sulfate (Morphine Sulfate) 1 mg Q4H PRN IVP For Pain 05/17/19 21:45 05/24/19 21:44 Ondansetron HCl (Zofran) 4 mg Q6H PRN IVP Nausea & Vomiting 05/17/19 21:45 06/16/19 21:44 Pantoprazole (Protonix) 40 mg EVERY 12 HOURS IVP 05/18/19 21:00 06/17/19 20:59 Phytonadione 5 mg/ Dextrose 55.5 ml @ 111 mls/hr ONCE IVPB 05/18/19 10:15 05/18/19 12:00 Assessment/Plan Problem List: (1) Acute respiratory failure ICD Codes: J96.00 - Acute respiratory failure, unspecified whether with hypoxia or hypercapnia SNOMED: 52416356 (2) Acute metabolic encephalopathy ICD Codes: G93.41 - Metabolic encephalopathy SNOMED: 06492252, 229295978 (3) Acute on chronic alcoholic liver disease ICD Codes: K70.9 - Alcoholic liver disease, unspecified SNOMED: 648264830 (4) Anasarca ICD Codes: R60.1 - Generalized edema SNOMED: 543099263, 515195698 (5) Anemia ICD Codes: D64.9 - Anemia, unspecified SNOMED: 155743639 Respiratory: monitor respiratory rate, adjust FIO2, CXR Cardiac: continue to monitor HR/BP Renal: F/U I&O, keep IV fluid Infectious Disease: check cultures Gastrointestinal: continue feedings/current rate Endocrine: monitor blood sugar Hematologic: monitor H/H, transfuse if hgb<8.5 Neurologic: PRN Ativan, keep patient comfortable Affect: PRN ativan Discussed with: nurses, consultants, case work aide Shireen Khan MD May 18, 2019 10:40
--- NOTE | 2019-05-18 10:47 | Diagnostic Imaging Report ---
Indication: Chest pain Technique: XRAY Chest 1v Comparison: 05/05/2019 Findings: Heart size and mediastinal contours are stable. There is elevation of the right hemidiaphragm. There are adjacent linear opacities in the right lower lung most likely related to subsegmental atelectasis. Otherwise no focal airspace consolidation. No radiographically appreciable pleural effusion or pneumothorax. No acute osseous abnormality. IMPRESSION: Elevation of the right hemidiaphragm with adjacent streaky opacities in the right lower lung favored to represent subsegmental atelectasis. Correlate clinically.
[2019-05-18 10:49] LABS: CREATINE KINASE 485 U/L (26-308); GAMMA GLUTAMYL TRANSPEPTIDASE 44 U/L (5-85); HDL CHOLESTEROL 13 MG/DL (40-60); TRIGLYCERIDES 59 MG/DL (30-150)
[2019-05-18] MEDS ORDERED: Phytonadione 10 MG in D5W 55 ML IVPB ONE (11:00)
[2019-05-18 11:03] LABS: % IRON SATURATION 82 % (15-50); IRON 53 ug/dL (50-175); TOTAL IRON BINDING CAPACITY 65 ug/dL (250-450)
--- NOTE | 2019-05-18 11:13 | Diagnostic Imaging Report ---
Indication: Respiratory failure, shortness of breath Technique: XRAY Chest 1v Comparison: 05/17/2019 Findings: Interval endotracheal intubation. Tip of the ET tube projects below level the clavicles, approximately 1.7 cm above the marianne. Heart size and mediastinal contours are stable. There is worsening aeration with increasing opacification at the right lung base and new opacities in the left perihilar region. No radiographically appreciable pleural effusion. No pneumothorax. No acute osseous abnormality. Impression: * Interval endotracheal intubation. ET tube tip 1.7 cm above the marianne. Position may appear artifactually low due to low lung volumes. Attention on follow-up recommended. * Worsening of aeration with increasing opacities at the right lung base and development of patchy perihilar opacities on the left. Although findings may potentially be exaggerated due to low volumes developing bilateral airspace disease/pneumonia not excluded. Attention on follow-up recommended.
--- NOTE | 2019-05-18 11:14 | Consultation ---
History of Present Illness General Date patient seen: May 18, 2019 Chief Complaint: Altered Level of Consciousness Reason for Consultation: Sepsis Present Illness HPI Ms. Bradford is a 58 yo female with PMHx of Liver cirrhosis with recurrent ascites, HTN, ETOH abuse, DM and Hepatic encephalopathy who presented to the ED on with AMS. History obtained from the notes as she was intubated for ams. She was recently admitted for similar symptoms but was D/C on 05/09/19 after being treated for GNR septicemia. In the ED she was Afebrile but had WBCs of 17. ID was consulted for Sepsis PMHx/PSHx Liver cirrhosis with recurrent ascites HTN ETOH abuse DM Hepatic encephalopathy SocHx Unable to Obtain as patient intubated Famhx Unable to Obtain as patient intubated Allergies: Coded Allergies: No Known Allergies (Unverified , 01/31/19) Medication History Scheduled Amino Acids/Protein Hydrolys (Pro-Stat Liquid), 30 ML ORAL TWICE A DAY, ( Reported) Amlodipine Besylate* (Amlodipine Besylate*), 5 MG ORAL DAILY, (Reported) Ascorbic Acid* (Vitamin C*), 500 MG ORAL DAILY, (Reported) Aspirin* (Aspir 81*), 81 MG ORAL DAILY, (Reported) Cholestyramine (Cholestyramine Packet), 4 GM ORAL DAILY Diphenhydramine Hcl (Banophen), 25 MG PO EVERY 6 HOURS, (Reported) Furosemide* (Lasix*), 40 MG ORAL DAILY, (Reported) Furosemide* (Lasix*), 20 MG ORAL DAILY, (Reported) Lactulose (Lactulose), 15 GM PO EVERY 8 HOURS, (Reported) Lansoprazole* (Lansoprazole*), 15 MG ORAL DAILY, (Reported) Magnesium Oxide (Magnesium Oxide), 400 MG ORAL BID, (Reported) Multivitamin With Minerals (Multivitamins With Minerals*), 1 TAB ORAL DAILY, ( Reported) Pantoprazole* (Pantoprazole*), 40 MG ORAL DAILY, (Reported) Umdwmnuakrkk-Wjnt-Bmsvkjvy,Iso (Zosyn 3.375 Gm Pre Mix-Bag), 3.375 GM IVPB EVERY 8 HOURS Propranolol Hcl* (Inderal*), 10 MG ORAL THREE TIMES A DAY, (Reported) Rifaximin* (Xifaxan*), 550 MG ORAL TWICE A DAY, (Reported) Spironolactone (Aldactone), 50 MG ORAL DAILY Sucralfate* (Carafate*), 1 GM ORAL FOUR TIMES A DAY, (Reported) Thiamine Hcl* (Vitamin B-1*), 100 MG ORAL DAILY, (Reported) Zinc Sulfate (Zinc Sulfate*), 220 MG ORAL DAILY, (Reported) Scheduled PRN Acetaminophen With Codeine (T#3) (Tylenol #3 Tab*), 1 TAB ORAL Q6HR PRN for For Pain, (Reported) Acetaminophen* (Acetaminophen 325MG Tablet*), 650 MG ORAL Q4H PRN for Pain Scale (3-5), (Reported) Ondansetron* (Zofran*), 4 MG ORAL Q6H PRN for Nausea & Vomiting, (Reported) Miscellaneous Medications Calcium Carbonate/Vitamin D3 (Oyster Shell 500-Vit D3 200 Pk), 1 EACH PO, ( Reported) Hydroxyzine Hcl (Hydroxyzine Hcl), 10 MG PO, (Reported) Lactulose (Lactulose*), 30 ML ORAL, (Reported) Patient History Healthcare decision maker N Resuscitation status Full Code Advanced Directive on File No Review of Systems ROS Narrative Unable to Obtain as patient intubated Physical Exam Last 24 Hour Vital Signs Date Time Temp Pulse Resp B/P (MAP) Pulse Ox O2 Delivery O2 Flow Rate FiO2 05/18/19 09:01 86 19 50 05/18/19 09:00 92 17 112/71 (85) 100 05/18/19 08:00 Mechanical Ventilator 05/18/19 08:00 97.2 88 17 109/69 (82) 100 05/18/19 08:00 50 05/18/19 07:43 92 05/18/19 07:00 89 19 102/51 (68) 100 05/18/19 07:00 88 21 50 05/18/19 06:00 92 18 107/60 (76) 100 05/18/19 05:09 84 18 50 05/18/19 05:00 83 18 109/62 (78) 100 05/18/19 04:00 81 05/18/19 04:00 81 05/18/19 04:00 Mechanical Ventilator 05/18/19 03:30 80 18 50 05/18/19 03:29 60 05/18/19 03:20 92.0 80 18 132/82 (99) 100 05/18/19 03:00 92.0 93 18 76/43 (54) 100 05/18/19 02:00 92.0 93 18 100/32 (54) 100 05/18/19 01:38 Mechanical Ventilator 05/18/19 01:30 93 18 50 05/18/19 00:55 92 18 118/68 100 Mechanical Ventilator 60 05/18/19 00:29 18 121/65 Mechanical Ventilator 60 05/18/19 00:09 97 18 118/66 100 05/17/19 23:30 98.0 100 18 134/71 100 Mechanical Ventilator 05/17/19 23:29 18 134/71 Mechanical Ventilator 60 05/17/19 22:36 94 18 60 05/17/19 22:35 94 18 100 Mechanical Ventilator 60 05/17/19 22:00 96 18 120/76 96 Mechanical Ventilator 05/17/19 19:36 98.0 92 18 158/98 98 Room Air 05/17/19 19:36 92 18 Room Air 98 05/17/19 19:28 97.9 90 18 160/100 (120) 98 Room Air Intake and Output 05/17/19 05/18/19 19:00 07:00 Intake Total 4635.0 ml Output Total 340 ml Balance 4295.0 ml Intake IV Total 4635.0 ml Output Urine Total 340 ml # Voids 1 Laboratory Tests Test 05/17/19 21:20 05/17/19 21:45 05/17/19 22:40 05/17/19 22:53 Sodium Level 135 MMOL/L (136-145) L Potassium Level 5.2 MMOL/L (3.5-5.1) H Chloride Level 104 MMOL/L (98-107) Carbon Dioxide Level 17 MMOL/L (21-32) L Anion Gap 14 mmol/L (5-15) Blood Urea Nitrogen 29 mg/dL (7-18) H Creatinine 2.8 MG/DL (0.55-1.30) H Estimat Glomerular Filtration Rate 17.4 mL/min (>60) Glucose Level 107 MG/DL (74-106) H Lactic Acid Level 7.50 mmol/L (0.4-2.0) H 7.00 mmol/L (0.66-2.22) H Calcium Level 8.7 MG/DL (8.5-10.1) Phosphorus Level 5.0 MG/DL (2.5-4.9) H Magnesium Level 1.6 MG/DL (1.8-2.4) L Total Bilirubin 6.1 MG/DL (0.2-1.0) H Direct Bilirubin 4.2 MG/DL (0.0-0.3) H Aspartate Amino Transf (AST/SGOT) 43 U/L (15-37) H Alanine Aminotransferase (ALT/SGPT) 17 U/L (12-78) Alkaline Phosphatase 201 U/L (46-116) H Ammonia 152 umol/L (11-32) H Total Creatine Kinase 217 U/L (26-308) Creatine Kinase MB 3.6 NG/ML (0.0-3.6) Creatine Kinase MB Relative Index 1.6 Troponin I 0.000 ng/mL (0.000-0.056) Pro-B-Type Natriuretic Peptide 889 pg/mL (0-125) H Total Protein 5.5 G/DL (6.4-8.2) L Albumin 1.3 G/DL (3.4-5.0) L Globulin 4.2 g/dL Albumin/Globulin Ratio 0.3 (1.0-2.7) L Triglycerides Level 62 MG/DL (30-150) Lipase 48 U/L (73-393) L White Blood Count 17.6 K/UL (4.8-10.8) H Red Blood Count 3.02 M/UL (4.20-5.40) L Hemoglobin 8.6 G/DL (12.0-16.0) L Hematocrit 27.4 % (37.0-47.0) L Mean Corpuscular Volume 91 FL (80-99) Mean Corpuscular Hemoglobin 28.5 PG (27.0-31.0) Mean Corpuscular Hemoglobin Concent 31.4 G/DL (32.0-36.0) L Red Cell Distribution Width 22.8 % (11.6-14.8) H Platelet Count 106 K/UL (150-450) L Mean Platelet Volume 7.7 FL (6.5-10.1) Neutrophils (%) (Auto) % (45.0-75.0) Lymphocytes (%) (Auto) % (20.0-45.0) Monocytes (%) (Auto) % (1.0-10.0) Eosinophils (%) (Auto) % (0.0-3.0) Basophils (%) (Auto) % (0.0-2.0) Differential Total Cells Counted 100 Neutrophils % (Manual) 87 % (45-75) H Lymphocytes % (Manual) 9 % (20-45) L Monocytes % (Manual) 4 % (1-10) Eosinophils % (Manual) 0 % (0-3) Basophils % (Manual) 0 % (0-2) Band Neutrophils 0 % (0-8) Platelet Estimate Decreased L Platelet Morphology Normal Polychromasia 1+ Anisocytosis 3+ Macrocytosis 1+ Prothrombin Time 19.5 SEC (9.30-11.50) H Prothromb Time International Ratio 1.9 (0.9-1.1) H Activated Partial Thromboplast Time 42 SEC (23-33) H Urine Color Yellow Urine Appearance Cloudy Urine pH 5 (4.5-8.0) Urine Specific [place] 1.015 (1.005-1.035) Urine Protein 2+ (NEGATIVE) H Urine Glucose (UA) Negative (NEGATIVE) Urine Ketones 1+ (NEGATIVE) H Urine Blood 2+ (NEGATIVE) H Urine Nitrite Positive (NEGATIVE) H Urine Bilirubin 2+ (NEGATIVE) H Urine Ictotest Positive (NEGATIVE) Urine Urobilinogen 4 MG/DL (0.0-1.0) H Urine Leukocyte Esterase 3+ (NEGATIVE) H Urine RBC 5-10 /HPF (0 - 2) H Urine WBC Tntc /HPF (0 - 2) H Urine Squamous Epithelial Cells Moderate /LPF (NONE/OCC) H Urine Bacteria Many /HPF (NONE) H Urine Yeast Many /HPF (NONE) H Test 05/18/19 04:05 05/18/19 05:15 White Blood Count 10.0 K/UL (4.8-10.8) Red Blood Count 2.46 M/UL (4.20-5.40) L Hemoglobin 6.8 G/DL (12.0-16.0) *L Hematocrit 22.1 % (37.0-47.0) L Mean Corpuscular Volume 90 FL (80-99) Mean Corpuscular Hemoglobin 27.7 PG (27.0-31.0) Mean Corpuscular Hemoglobin Concent 30.9 G/DL (32.0-36.0) L Red Cell Distribution Width 24.7 % (11.6-14.8) H Platelet Count 63 K/UL (150-450) L Mean Platelet Volume 7.5 FL (6.5-10.1) Neutrophils (%) (Auto) % (45.0-75.0) Lymphocytes (%) (Auto) % (20.0-45.0) Monocytes (%) (Auto) % (1.0-10.0) Eosinophils (%) (Auto) % (0.0-3.0) Basophils (%) (Auto) % (0.0-2.0) Differential Total Cells Counted 100 Neutrophils % (Manual) 88 % (45-75) H Lymphocytes % (Manual) 4 % (20-45) L Monocytes % (Manual) 5 % (1-10) Eosinophils % (Manual) 0 % (0-3) Basophils % (Manual) 0 % (0-2) Band Neutrophils 3 % (0-8) Platelet Estimate Decreased L Platelet Morphology Normal Hypochromasia 2+ Anisocytosis 2+ Sodium Level 138 MMOL/L (136-145) Potassium Level 4.3 MMOL/L (3.5-5.1) Chloride Level 108 MMOL/L (98-107) H Carbon Dioxide Level 17 MMOL/L (21-32) L Anion Gap 13 mmol/L (5-15) Blood Urea Nitrogen 28 mg/dL (7-18) H Creatinine 2.4 MG/DL (0.55-1.30) H Estimat Glomerular Filtration Rate 20.8 mL/min (>60) Glucose Level 123 MG/DL (74-106) H Hemoglobin A1c 4.1 % (4.3-6.0) L Lactic Acid Level 6.70 mmol/L (0.4-2.0) H 6.70 mmol/L (0.66-2.22) H Uric Acid Pending Calcium Level 7.9 MG/DL (8.5-10.1) L Phosphorus Level Pending Magnesium Level Pending Iron Level Pending Unsaturated Iron Binding Pending Ferritin Pending Total Bilirubin 5.5 MG/DL (0.2-1.0) H Direct Bilirubin 3.6 MG/DL (0.0-0.3) H Gamma Glutamyl Transpeptidase Pending Aspartate Amino Transf (AST/SGOT) 30 U/L (15-37) Alanine Aminotransferase (ALT/SGPT) 10 U/L (12-78) L Alkaline Phosphatase 158 U/L (46-116) H Total Creatine Kinase Pending Troponin I 0.000 ng/mL (0.000-0.056) Pro-B-Type Natriuretic Peptide Pending Total Protein 4.4 G/DL (6.4-8.2) L Albumin 1.0 G/DL (3.4-5.0) L Globulin 3.4 g/dL Albumin/Globulin Ratio 0.3 (1.0-2.7) L Triglycerides Level Pending Cholesterol Level Pending LDL Cholesterol Pending HDL Cholesterol Pending Cholesterol/HDL Ratio Pending Vitamin B12 Level Pending Folate Pending Thyroid Stimulating Hormone (TSH) Pending Height (Feet): 5 Height (Inches): 0.00 Weight (Pounds): 195 Medications Current Medications Medications (Trade) Dose Ordered Sig/Almaz Route PRN Reason Start Time Stop Time Status Last Admin Dose Admin Cefepime HCl 1 gm/ Dextrose 55 ml @ 110 mls/hr Q24H IVPB 05/18/19 21:00 05/25/19 20:59 Chlorhexidine Gluconate (Shannon-Hex 2%) 1 applic DAILY@2000 TOPIC 05/18/19 20:00 06/17/19 19:59 Dextrose (Dextrose 50%) 25 ml Q30M PRN IV Hypoglycemia 05/17/19 21:45 06/16/19 21:44 Dextrose (Dextrose 50%) 50 ml Q30M PRN IV Hypoglycemia 05/17/19 21:45 06/16/19 21:44 Dextrose/Sodium Chloride 1,000 ml @ 50 mls/hr Q20H IV 05/17/19 21:38 06/16/19 21:37 05/18/19 02:40 Lactulose (Cephulac) 30 gm THREE TIMES A DAY NG 05/18/19 10:30 06/17/19 10:29 Lorazepam (Ativan 2mg/ml 1ml) 0.5 mg Q4H PRN IV For Anxiety 05/17/19 21:45 05/24/19 21:44 Metronidazole 100 ml @ 100 mls/hr Q6H IVPB 05/18/19 08:00 05/25/19 07:59 05/18/19 08:22 Morphine Sulfate (Morphine Sulfate) 1 mg Q4H PRN IVP For Pain 05/17/19 21:45 05/24/19 21:44 Ondansetron HCl (Zofran) 4 mg Q6H PRN IVP Nausea & Vomiting 05/17/19 21:45 06/16/19 21:44 Pantoprazole (Protonix) 40 mg EVERY 12 HOURS IVP 05/18/19 21:00 06/17/19 20:59 Phytonadione 10 mg/Dextrose 56 ml @ 112 mls/hr ONCE ONCE IVPB 05/18/19 11:00 05/18/19 11:29 UNV Phytonadione 5 mg/ Dextrose 55.5 ml @ 111 mls/hr ONCE IVPB 05/18/19 10:15 05/18/19 12:00 Objective Narrative GENERAL: The patient is a well-developed , Intubated on vent HEENT: NCAT, MMM, PERRL., No scleral icterua CHEST: Lungs are clear to auscultation bilaterally without wheezes or rales. CARDIOVASCULAR: Regular rhythm and rate. S1 and S2 are normal without murmurs, rubs, or gallops. ABDOMEN: Soft, Obese, + BS NEUROLOGICAL: Not following Skin, Moisture related erythema and skin changes in the inguinal folds, Stage 1 ulcers in the sacral region. Assessment/Plan Assessment/Plan: 58 yo female with PMHx of Liver cirrhosis with recurrent ascites, HTN, ETOH abuse, DM and Hepatic encephalopathy who presented to the ED on 05/17/19 with AMS. Sepsis UA (+) CXR no sign of PNA AMS Hepatic encephalopathy ? vs Urosepsis Leukocytosis No fever Hx Gram negative bacteremia -05/03 BCx 2/4 ACHROMOBACTER XYLOSOXIDANS (S Zosyn, Ceftazidime, bactrim; R cefepime; I imipenem, Levaquin); 05/05 Bcx NTD Recurrent ascites -05/05 SP paracentesis: 3.5 L removed wbc 170 (N 49%); cx Neg - -03/11/19 sp paracentesis:fluid wbc 97 (N 34%) HTN DM Liver Cirrhosis EtOH abuse Plan: -Continue Cefepime #1 Flagyl #1 and Vancomycin #1 -f/u cx -Monitor CBC/CMP, temperatures Thank you for this consult. We will continue to follow the patient with you. Constable ,Vincent MD May 18, 2019 11:14
[2019-05-18 11:31] LABS: HEMATOCRIT 22.8 % (37.0-47.0); HEMOGLOBIN 7.1 G/DL (12.0-16.0); MEAN CORPUSCULAR VOLUME 90 FL (80-99); PLATELET COUNT 84 K/UL (150-450); RED BLOOD COUNT 2.54 M/UL (4.20-5.40); RED CELL DISTRIBUTION WIDTH 25.4 % (11.6-14.8); WHITE BLOOD COUNT 12.3 K/UL (4.8-10.8)
--- NOTE | 2019-05-18 11:39 | NUR ---
RD ASSESSMENT & RECOMMENDATIONS SEE CARE ACTIVITY FOR COMPLETE ASSESSMENT DAILY ESTIMATED NEEDS: Needs based on Cirrhosis, Critical care, sepsis/ 58kg adj 22-30 kcals/kg 2125-4608 total kcals 1.2-2 g protein/kg 70-116 g total protein 20-25 mL/kg 7179-9380 total fluid mLs NUTRITION DIAGNOSIS: * Swallowing difficulty R/T respiratory status as evidenced by pt orally intubated, NPO at this time * Altered nutrition related lab values R/T cirrhosis, sepsis, clinical condition as evidenced by elev T bili (5.5), elev NH3 (152), elev LA (6.7), elev creat (2.4). CURRENT TF:NPO PO DIET RECOMMENDATIONS: [employer] eval post extubation -> LOW NA ENTERAL NUTRITION RECOMMENDATIONS: Glucerna 1.2 @ 55ml/hr x 24 hrs to provide 1320ml, 1584kcal, 79g prot, 1063ml free water * Rec Glucerna 1.2 to maintain good BG control: h/o DM * As medically appropriate, initiate Glucerna 1.2 @ 25ml/hr x 6 hrs * Advance 10ml q 4-6 hrs as tolerated to goal rate. * HOB over 30 degrees/ water flush per MD. ADDITIONAL RECOMMENDATIONS: * Calibrated bedscale wt for accurate CBW * W/ TF, monitor need for NISS: h/o DM * F/up w/ wound eval: add Miquel 1pkt BID + VIt C 250mg QD * Monitor lytes, replete as needed . .
--- NOTE | 2019-05-18 12:13 | NUR ---
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 97.8 HR 90 RR 18 B/P 160/100 AC 18 TV 420 FIO2 60% PEEP 5 WBC 17.6 NA 135 K 5.2 BUN 29 CR 2.8 MG 1.6 AMN 152 BNP 884 AST 43 ALT 201 CXR=Elevation of the right hemidiaphragm with adjacent streaky opacities in the right lower lung favored to represent subsegmental atelectasis. Correlate clinically. IS: VANCO IV CEFEPIME IV FLAGYL IV HALDOL IV BENADRYL IV ADMITTED TO ICU ICU STATUS
[2019-05-18 12:18] LABS: FERRITIN 273 NG/ML (8-388)
[2019-05-18 12:24] LABS: CHOLESTEROL > 200 MG/DL (< 200)
--- NOTE | 2019-05-18 12:48 | History & Physical ---
History and Physical History & Physicial Dictated for Int Med-Dr Amador no. [id number] Jose Benjamin MD May 18, 2019 12:48
--- NOTE | 2019-05-18 13:04 | GI Initial Consult Note ---
History of Present Illness General Date patient seen: May 18, 2019 Time patient seen: 13:03 Reason for Hospitalization: Altered Level of Consciousness Referring physician: TONI MARTINEZ Reason for Consultation: CIRRHOSIS Present Illness HPI 58-year-old female history of hepatic encephalopathy presents with acute altered mental status just prior to arrival, history is limited secondary to patient's altered mentation, unknown aggravating alleviating factors symptoms have been constant for 1 day patient was sent to the hospital for evaluation of her acute altered mental status. GI consulted for hepatic encephalopathy. ROS limited, patient seen in ICU intubated. Patient was recent admission here at [facility], history of chronic liver disease status post paracentesis on April 29 with a 3.1 L of output. Patient presents with low hemoglobin at 7.1, ammonia 158. The patient had a recent EGD performed April 22, 2019 noted with no esophageal or gastric varices. It was noted that the patient had moderate to severe portal hypertensive gastropathy and a shallow gastric ulcer. Patient pending pRBCs today. Home Meds Active Scripts Rietjfoirmqq-Egpm-Vywwgbvq,Iso (ZOSYN 3.375 GM PRE MIX-BAG) 3.375 Gm/50 Ml Froz.piggy, 3.375 GM IVPB EVERY 8 HOURS for 10 Days, BAG Prov:Shireen Khan MD 05/09/19 Cholestyramine (Cholestyramine Packet) 4 Gm Powd.pack, 4 GM ORAL DAILY for 30 Days, PACK Prov:Shireen Khan MD 04/30/19 Spironolactone (ALDACTONE) 50 Mg Tablet, 50 MG ORAL DAILY for 30 Days, TAB Prov:Shireen Khan MD 02/08/19 Reported Medications Zinc Sulfate (ZINC SULFATE*) 220 Mg Capsule, 220 MG ORAL DAILY, CAP 0 Refills 05/17/19 Ascorbic Acid* (VITAMIN C*) 500 Mg Tablet, 500 MG ORAL DAILY, #30 TAB 0 Refills 05/17/19 Thiamine Hcl* (VITAMIN B-1*) 100 Mg Tablet, 100 MG ORAL DAILY, #30 TAB 0 Refills 05/17/19 Acetaminophen With Codeine (T#3) (TYLENOL #3 TAB*) Y Tab, 1 TAB ORAL Q6HR PRN for For Pain, TAB 05/17/19 Acetaminophen* (ACETAMINOPHEN 325MG TABLET*) 325 Mg Tablet, 650 MG ORAL Q4H PRN for Pain Scale (3-5), TAB 05/17/19 Sucralfate* (CARAFATE*) 1 Gm Tablet, 1 GM ORAL FOUR TIMES A DAY, TAB 05/17/19 Amino Acids/Protein Hydrolys (PRO-STAT LIQUID) 30 Ml Liquid.pkt, 30 ML ORAL TWICE A DAY, ML 05/17/19 Propranolol Hcl* (INDERAL*) 10 Mg Tablet, 10 MG ORAL THREE TIMES A DAY, #90 TAB 0 Refills 05/17/19 Pantoprazole* (PANTOPRAZOLE*) 40 Mg Tablet.dr, 40 MG ORAL DAILY, TAB 05/17/19 Calcium Carbonate/Vitamin D3 (Oyster Shell 500-Vit D3 200 Pk) 1 Each Powd.pack, 1 EACH PO, PACK 05/17/19 Ondansetron* (ZOFRAN*) 4 Mg Tablet, 4 MG ORAL Q6H PRN for Nausea & Vomiting, TAB 05/17/19 Multivitamin With Minerals (MULTIVITAMINS WITH MINERALS*) 1 Each Tablet, 1 TAB ORAL DAILY, TAB 05/17/19 Lactulose (LACTULOSE*) 20 Gm/30 Ml Solution, 30 ML ORAL, ML 0 Refills 05/17/19 Hydroxyzine Hcl (HYDROXYZINE HCL) 10 Mg Tablet, 10 MG PO, TAB 05/17/19 Furosemide* (LASIX*) 20 Mg Tablet, 20 MG ORAL DAILY, TAB 05/17/19 Diphenhydramine Hcl (BANOPHEN) 25 Mg Capsule, 25 MG PO EVERY 6 HOURS, CAP 05/17/19 Aspirin* (ASPIR 81*) 81 Mg Tablet.dr, 81 MG ORAL DAILY, TAB 05/17/19 Amlodipine Besylate* (AMLODIPINE BESYLATE*) 5 Mg Tablet, 5 MG ORAL DAILY, TAB 05/17/19 Lactulose (LACTULOSE) 10 Gm/15 Ml Solution, 15 GM PO EVERY 8 HOURS 04/29/19 Magnesium Oxide (MAGNESIUM OXIDE) 400 Mg Tablet, 400 MG ORAL BID, #30 TAB 0 Refills 04/28/19 Furosemide* (LASIX*) 40 Mg Tablet, 40 MG ORAL DAILY, TAB 04/28/19 Lansoprazole* (LANSOPRAZOLE*) 15 Mg Capsule.dr, 15 MG ORAL DAILY, CAP AC BREAKFAST 04/18/19 Rifaximin* (XIFAXAN*) 550 Mg Tablet, 550 MG ORAL TWICE A DAY for 30 Days, MG 0 Refills 03/11/19 Med list reviewed/reconciled: Yes Allergies: Coded Allergies: No Known Allergies (Unverified , 01/31/19) Patient History Limited by: medical condition History Provided By: Medical Record PMH Narrative Limited by: medical condition - Confused altered Past Medical History: see triage record Now: No Reviewed Nursing Documentation: PMH: Agreed; PSxH: Agreed Nursing Documentation-PMH Hx Cardiac Problems: Yes Hx Hypertension: Yes Hx Diabetes: Yes Hx Cancer: No Hx Gastrointestinal Problems: Yes Hx Neurological Problems: Yes - Hepatic encephalopathy Social History: Reports: alcohol use Review of Systems All Other Systems: negative except mentioned in HPI Physical Exam Vital Signs Date Time Temp Pulse Resp B/P (MAP) Pulse Ox O2 Delivery O2 Flow Rate FiO2 05/17/19 19:28 97.9 90 18 160/100 (120) 98 Room Air 05/17/19 19:36 98 Sp02 EP Interpretation: reviewed, normal Labs Laboratory Tests Test 05/17/19 21:20 05/17/19 21:45 05/17/19 22:40 05/17/19 22:53 Sodium Level 135 MMOL/L (136-145) L Potassium Level 5.2 MMOL/L (3.5-5.1) H Chloride Level 104 MMOL/L (98-107) Carbon Dioxide Level 17 MMOL/L (21-32) L Anion Gap 14 mmol/L (5-15) Blood Urea Nitrogen 29 mg/dL (7-18) H Creatinine 2.8 MG/DL (0.55-1.30) H Estimat Glomerular Filtration Rate 17.4 mL/min (>60) Glucose Level 107 MG/DL (74-106) H Lactic Acid Level 7.50 mmol/L (0.4-2.0) H 7.00 mmol/L (0.66-2.22) H Calcium Level 8.7 MG/DL (8.5-10.1) Phosphorus Level 5.0 MG/DL (2.5-4.9) H Magnesium Level 1.6 MG/DL (1.8-2.4) L Total Bilirubin 6.1 MG/DL (0.2-1.0) H Direct Bilirubin 4.2 MG/DL (0.0-0.3) H Aspartate Amino Transf (AST/SGOT) 43 U/L (15-37) H Alanine Aminotransferase (ALT/SGPT) 17 U/L (12-78) Alkaline Phosphatase 201 U/L (46-116) H Ammonia 152 umol/L (11-32) H Total Creatine Kinase 217 U/L (26-308) Creatine Kinase MB 3.6 NG/ML (0.0-3.6) Creatine Kinase MB Relative Index 1.6 Troponin I 0.000 ng/mL (0.000-0.056) Pro-B-Type Natriuretic Peptide 889 pg/mL (0-125) H Total Protein 5.5 G/DL (6.4-8.2) L Albumin 1.3 G/DL (3.4-5.0) L Globulin 4.2 g/dL Albumin/Globulin Ratio 0.3 (1.0-2.7) L Triglycerides Level 62 MG/DL (30-150) Lipase 48 U/L (73-393) L White Blood Count 17.6 K/UL (4.8-10.8) H Red Blood Count 3.02 M/UL (4.20-5.40) L Hemoglobin 8.6 G/DL (12.0-16.0) L Hematocrit 27.4 % (37.0-47.0) L Mean Corpuscular Volume 91 FL (80-99) Mean Corpuscular Hemoglobin 28.5 PG (27.0-31.0) Mean Corpuscular Hemoglobin Concent 31.4 G/DL (32.0-36.0) L Red Cell Distribution Width 22.8 % (11.6-14.8) H Platelet Count 106 K/UL (150-450) L Mean Platelet Volume 7.7 FL (6.5-10.1) Neutrophils (%) (Auto) % (45.0-75.0) Lymphocytes (%) (Auto) % (20.0-45.0) Monocytes (%) (Auto) % (1.0-10.0) Eosinophils (%) (Auto) % (0.0-3.0) Basophils (%) (Auto) % (0.0-2.0) Differential Total Cells Counted 100 Neutrophils % (Manual) 87 % (45-75) H Lymphocytes % (Manual) 9 % (20-45) L Monocytes % (Manual) 4 % (1-10) Eosinophils % (Manual) 0 % (0-3) Basophils % (Manual) 0 % (0-2) Band Neutrophils 0 % (0-8) Platelet Estimate Decreased L Platelet Morphology Normal Polychromasia 1+ Anisocytosis 3+ Macrocytosis 1+ Prothrombin Time 19.5 SEC (9.30-11.50) H Prothromb Time International Ratio 1.9 (0.9-1.1) H Activated Partial Thromboplast Time 42 SEC (23-33) H Urine Color Yellow Urine Appearance Cloudy Urine pH 5 (4.5-8.0) Urine Specific [place] 1.015 (1.005-1.035) Urine Protein 2+ (NEGATIVE) H Urine Glucose (UA) Negative (NEGATIVE) Urine Ketones 1+ (NEGATIVE) H Urine Blood 2+ (NEGATIVE) H Urine Nitrite Positive (NEGATIVE) H Urine Bilirubin 2+ (NEGATIVE) H Urine Ictotest Positive (NEGATIVE) Urine Urobilinogen 4 MG/DL (0.0-1.0) H Urine Leukocyte Esterase 3+ (NEGATIVE) H Urine RBC 5-10 /HPF (0 - 2) H Urine WBC Tntc /HPF (0 - 2) H Urine Squamous Epithelial Cells Moderate /LPF (NONE/OCC) H Urine Bacteria Many /HPF (NONE) H Urine Yeast Many /HPF (NONE) H Test 05/18/19 04:05 05/18/19 05:15 05/18/19 11:20 White Blood Count 10.0 K/UL (4.8-10.8) 12.3 K/UL (4.8-10.8) H Red Blood Count 2.46 M/UL (4.20-5.40) L 2.54 M/UL (4.20-5.40) L Hemoglobin 6.8 G/DL (12.0-16.0) *L 7.1 G/DL (12.0-16.0) L Hematocrit 22.1 % (37.0-47.0) L 22.8 % (37.0-47.0) L Mean Corpuscular Volume 90 FL (80-99) 90 FL (80-99) Mean Corpuscular Hemoglobin 27.7 PG (27.0-31.0) 27.8 PG (27.0-31.0) Mean Corpuscular Hemoglobin Concent 30.9 G/DL (32.0-36.0) L 31.0 G/DL (32.0-36.0) L Red Cell Distribution Width 24.7 % (11.6-14.8) H 25.4 % (11.6-14.8) H Platelet Count 63 K/UL (150-450) L 84 K/UL (150-450) L Mean Platelet Volume 7.5 FL (6.5-10.1) 5.7 FL (6.5-10.1) L Neutrophils (%) (Auto) % (45.0-75.0) % (45.0-75.0) Lymphocytes (%) (Auto) % (20.0-45.0) % (20.0-45.0) Monocytes (%) (Auto) % (1.0-10.0) % (1.0-10.0) Eosinophils (%) (Auto) % (0.0-3.0) % (0.0-3.0) Basophils (%) (Auto) % (0.0-2.0) % (0.0-2.0) Differential Total Cells Counted 100 100 Neutrophils % (Manual) 88 % (45-75) H 89 % (45-75) H Lymphocytes % (Manual) 4 % (20-45) L 6 % (20-45) L Monocytes % (Manual) 5 % (1-10) 5 % (1-10) Eosinophils % (Manual) 0 % (0-3) 0 % (0-3) Basophils % (Manual) 0 % (0-2) 0 % (0-2) Band Neutrophils 3 % (0-8) 0 % (0-8) Platelet Estimate Decreased L Decreased L Platelet Morphology Normal Normal Hypochromasia 2+ 2+ Anisocytosis 2+ 3+ Sodium Level 138 MMOL/L (136-145) Potassium Level 4.3 MMOL/L (3.5-5.1) Chloride Level 108 MMOL/L (98-107) H Carbon Dioxide Level 17 MMOL/L (21-32) L Anion Gap 13 mmol/L (5-15) Blood Urea Nitrogen 28 mg/dL (7-18) H Creatinine 2.4 MG/DL (0.55-1.30) H Estimat Glomerular Filtration Rate 20.8 mL/min (>60) Glucose Level 123 MG/DL (74-106) H Hemoglobin A1c 4.1 % (4.3-6.0) L Lactic Acid Level 6.70 mmol/L (0.4-2.0) H 6.70 mmol/L (0.66-2.22) H 4.80 mmol/L (0.4-2.0) H Uric Acid 9.9 MG/DL (2.6-7.2) H Calcium Level 7.9 MG/DL (8.5-10.1) L Phosphorus Level 5.0 MG/DL (2.5-4.9) H Magnesium Level 1.4 MG/DL (1.8-2.4) L Iron Level 53 ug/dL (50-175) Total Iron Binding Capacity 65 ug/dL (250-450) L Percent Iron Saturation 82 % (15-50) H Unsaturated Iron Binding 12 ug/dL (112-346) L Ferritin 273 NG/ML (8-388) Total Bilirubin 5.5 MG/DL (0.2-1.0) H Direct Bilirubin 3.6 MG/DL (0.0-0.3) H Gamma Glutamyl Transpeptidase 44 U/L (5-85) Aspartate Amino Transf (AST/SGOT) 30 U/L (15-37) Alanine Aminotransferase (ALT/SGPT) 10 U/L (12-78) L Alkaline Phosphatase 158 U/L (46-116) H Total Creatine Kinase 485 U/L (26-308) H Troponin I 0.000 ng/mL (0.000-0.056) Pro-B-Type Natriuretic Peptide 734 pg/mL (0-125) H Total Protein 4.4 G/DL (6.4-8.2) L Albumin 1.0 G/DL (3.4-5.0) L Globulin 3.4 g/dL Albumin/Globulin Ratio 0.3 (1.0-2.7) L Triglycerides Level 59 MG/DL (30-150) Cholesterol Level > 200 MG/DL (< 200) H LDL Cholesterol 13 mg/dL (<100) HDL Cholesterol 13 MG/DL (40-60) L Cholesterol/HDL Ratio 15.4 (3.3-4.4) H Vitamin B12 Level > 2000 PG/ML (193-986) H Folate 15.4 NG/ML (8.6-58.9) Thyroid Stimulating Hormone (TSH) 4.840 uiU/mL (0.358-3.740) General Appearance: no apparent distress, lethargic Head: normocephalic EENT: PERRL/EOMI, normal ENT inspection Neck: supple Respiratory: normal breath sounds, no respiratory distress Cardiovascular: normal rate Gastrointestinal: normal inspection, non tender, soft, normal bowel sounds, non -distended Rectal: deferred Genitourinary: no CVA tenderness Skin: normal inspection, normal color, no rash, warm/dry, palpation normal, well hydrated Lymphatic: normal inspection, no adenopathy Current Medications Current Medications Medications (Trade) Dose Ordered Sig/Almaz Route PRN Reason Start Time Stop Time Status Last Admin Dose Admin Cefepime HCl 1 gm/ Dextrose 55 ml @ 110 mls/hr Q24H IVPB 05/18/19 21:00 05/25/19 20:59 Chlorhexidine Gluconate (Shannon-Hex 2%) 1 applic DAILY@2000 TOPIC 05/18/19 20:00 06/17/19 19:59 Dextrose (Dextrose 50%) 25 ml Q30M PRN IV Hypoglycemia 05/17/19 21:45 06/16/19 21:44 Dextrose (Dextrose 50%) 50 ml Q30M PRN IV Hypoglycemia 05/17/19 21:45 06/16/19 21:44 Dextrose/Sodium Chloride 1,000 ml @ 50 mls/hr Q20H IV 05/17/19 21:38 06/16/19 21:37 05/18/19 02:40 Lactulose (Cephulac) 30 gm THREE TIMES A DAY NG 05/18/19 10:30 06/17/19 10:29 Lorazepam (Ativan 2mg/ml 1ml) 0.5 mg Q4H PRN IV For Anxiety 05/17/19 21:45 05/24/19 21:44 Metronidazole 100 ml @ 100 mls/hr Q6H IVPB 05/18/19 08:00 05/25/19 07:59 05/18/19 08:22 Morphine Sulfate (Morphine Sulfate) 1 mg Q4H PRN IVP For Pain 05/17/19 21:45 05/24/19 21:44 Ondansetron HCl (Zofran) 4 mg Q6H PRN IVP Nausea & Vomiting 05/17/19 21:45 06/16/19 21:44 Pantoprazole (Protonix) 40 mg EVERY 12 HOURS IVP 05/18/19 21:00 06/17/19 20:59 Vancomycin HCl (Vanco rx to dose) 1 ea DAILY PRN MISC Per rx protocol 05/18/19 11:15 06/17/19 11:14 GI: Plan Problems: (1) Altered level of consciousness (2) Acute respiratory failure (3) Hepatic encephalopathy (4) Acute on chronic alcoholic liver disease (5) Anemia (6) Ascites (7) Anasarca (8) Liver cirrhosis (9) ETOH abuse Plan Status post EGD on April 22, 2019. No noted gastric or esophageal varices at that time. Portal hypertensive gastropathy. paracentesis ordered, replace albumin if necessary Insert pediatric NGT start lactulose + xifaxan PPI BID monitor H&H, prn transfusions >> receiving 1 unit today OB stool r/o any GI bleed, will consider repeat endoscopy if positive electrolyte correction will follow with additional recommendations Discussed with Dr. Torres. Thank you for this patient referral, we will follow. The patient was seen and examined at bedside and all new and available data was reviewed in the patients chart. I agree with the above findings, impression and plan. (Patient seen earlier today. Signature stamp does not reflect patient encounter time.). - MD [facility] May 18, 2019 13:04
--- NOTE | 2019-05-18 13:18 | NUR ---
NURSE NOTES:WOUND CARE NOTES:Pt presented on admission with icteric sclerae and skin. Moisture intertrigo Madhu/left abd folds.(1.5cm long). Moisture intertrigo R groin(8.5cm) slit noted with small amt bleeding. Mons pubis,labia majora and medial aspects of both upper thigh erythematous . Partial thickness wound noted to L thoracic. Base of wound is moist and viable. Edges flat and adherent to base of wound.No exudate noted. (L) 0.6cm x (W)0.8cm. Non-blanchable erythema sacrum,R and L buttocks with scattered shearing .Full thickness pressure injury noted to sacrococcygeal area. Base of wound is steve with small amt slough noted in center.(L) 0.7cm x (W)0.3cm. Area around wound is erythematous non-blanchable with shearing . Full thickness pressure injury R buttocks . Base of wound is moist, with Slough in center.Surrounding area erythematous and denuded. Evolving serous blister L heel.Base of wound is fluctuant with delineated,red margins.(L)3.5cm x (W)5.5cm. Periwound without erythema or fluctuance. R heel firm and blanchable. Tx.Plan: Apply Triad Paste to Sacrum and R buttocks. Cover wounds with Optifoam drsg. Change every 3 days and PRN. Apply Triad Paste to abd folds, R groin,Mons pubis, medial aspects of both upper thighs with each perineal care. Apply Optifoam drsg L thoracic wound. Cover with Optifoam drsg. Change every 3 days and prn. Apply Cavilon Skin Barrier to both heels. Cover each heel with Optifoam drsg. Change every 7 days and prn. APM/CHRISSY Mattress. Reposition at least every 2hours or as tolerated. Off-load heels with pillow
--- NOTE | 2019-05-18 13:30 | NUR ---
NURSE NOTES: Dr. Whitaker consulted to assess patient's stage 3 sacral wound, at bedside assessing Pt. Dr Benjamin ordered 2 PRBC, currently on hold, for low trending Hemoglobin results. Patient remains stable, no signs of bleeding.
--- NOTE | 2019-05-18 13:50 | NUR ---
NURSE NOTES: P200 mattress applied to bed. Pt turned and repositioned. Oral care completed.
--- NOTE | 2019-05-18 14:22 | Consultation ---
History of Present Illness General Date patient seen: May 18, 2019 Chief Complaint: Altered Level of Consciousness Referring physician: TONI MARTINEZ Reason for Consultation: CIRRHOSIS Present Illness HPI This is a 58-year-old female multiple medical comorbidities who presented to [facility] emergency department for worsening level consciousness, rest or insufficiency, decompensating liver cirrhosis, overall decompensation. In emergency department required emergency intubation for airway protection and central venous access for difficult peripheral access. Unfortunately difficult access even central access difficult and there was arterial cannulation on the right side of femoral. left femoral was placed. surgery was called to evaluate and assist with care. hemostasis obtained on right with direct pressure for >15mins. Allergies: Coded Allergies: No Known Allergies (Unverified , 01/31/19) Medication History Scheduled Amino Acids/Protein Hydrolys (Pro-Stat Liquid), 30 ML ORAL TWICE A DAY, ( Reported) Amlodipine Besylate* (Amlodipine Besylate*), 5 MG ORAL DAILY, (Reported) Ascorbic Acid* (Vitamin C*), 500 MG ORAL DAILY, (Reported) Aspirin* (Aspir 81*), 81 MG ORAL DAILY, (Reported) Cholestyramine (Cholestyramine Packet), 4 GM ORAL DAILY Diphenhydramine Hcl (Banophen), 25 MG PO EVERY 6 HOURS, (Reported) Furosemide* (Lasix*), 40 MG ORAL DAILY, (Reported) Furosemide* (Lasix*), 20 MG ORAL DAILY, (Reported) Lactulose (Lactulose), 15 GM PO EVERY 8 HOURS, (Reported) Lansoprazole* (Lansoprazole*), 15 MG ORAL DAILY, (Reported) Magnesium Oxide (Magnesium Oxide), 400 MG ORAL BID, (Reported) Multivitamin With Minerals (Multivitamins With Minerals*), 1 TAB ORAL DAILY, ( Reported) Pantoprazole* (Pantoprazole*), 40 MG ORAL DAILY, (Reported) Qrmkhfnnktab-Kkoy-Pmnsuotr,Iso (Zosyn 3.375 Gm Pre Mix-Bag), 3.375 GM IVPB EVERY 8 HOURS Propranolol Hcl* (Inderal*), 10 MG ORAL THREE TIMES A DAY, (Reported) Rifaximin* (Xifaxan*), 550 MG ORAL TWICE A DAY, (Reported) Spironolactone (Aldactone), 50 MG ORAL DAILY Sucralfate* (Carafate*), 1 GM ORAL FOUR TIMES A DAY, (Reported) Thiamine Hcl* (Vitamin B-1*), 100 MG ORAL DAILY, (Reported) Zinc Sulfate (Zinc Sulfate*), 220 MG ORAL DAILY, (Reported) Scheduled PRN Acetaminophen With Codeine (T#3) (Tylenol #3 Tab*), 1 TAB ORAL Q6HR PRN for For Pain, (Reported) Acetaminophen* (Acetaminophen 325MG Tablet*), 650 MG ORAL Q4H PRN for Pain Scale (3-5), (Reported) Ondansetron* (Zofran*), 4 MG ORAL Q6H PRN for Nausea & Vomiting, (Reported) Miscellaneous Medications Calcium Carbonate/Vitamin D3 (Oyster Shell 500-Vit D3 200 Pk), 1 EACH PO, ( Reported) Hydroxyzine Hcl (Hydroxyzine Hcl), 10 MG PO, (Reported) Lactulose (Lactulose*), 30 ML ORAL, (Reported) Patient History Limited by: medical condition History Provided By: Medical Record, PMD Healthcare decision maker N Resuscitation status Full Code Advanced Directive on File No Past Medical/Surgical History Past Medical/Surgical History: (1) Sacral decubitus ulcer (2) Bacteremia due to Gram-negative bacteria (3) ATN (acute tubular necrosis) (4) Coagulopathy (5) Thrombocytopenia (6) Liver cirrhosis (7) Acute metabolic encephalopathy (8) Sepsis (9) Anasarca (10) Ascites (11) Anemia (12) Acute on chronic alcoholic liver disease (13) Hepatic encephalopathy (14) Altered level of consciousness (15) Acute respiratory failure Review of Systems ROS Narrative Cannot obtain given patient's current medical condition Physical Exam General Appearance: mild distress Lines, tubes and drains: central line HEENT: mucous membranes moist Neck: non-tender, other Respiratory/Chest: on vent Cardiovascular/Chest: normal peripheral pulses, regular rhythm Abdomen: soft, no organomegaly, no mass, other Genitourinary/Rectal: bentley Extremities: no edema, no cyanosis Skin Exam: other Neurologic: unresponsiveness Last 24 Hour Vital Signs Date Time Temp Pulse Resp B/P (MAP) Pulse Ox O2 Delivery O2 Flow Rate FiO2 05/18/19 13:22 92 20 50 05/18/19 12:00 50 05/18/19 12:00 86 91/47 (62) 100 05/18/19 12:00 Mechanical Ventilator 05/18/19 11:20 100 24 50 05/18/19 11:00 100 18 112/78 (89) 100 05/18/19 10:00 89 18 100/55 (70) 100 05/18/19 09:01 86 19 50 05/18/19 09:00 92 17 112/71 (85) 100 05/18/19 08:00 Mechanical Ventilator 05/18/19 08:00 97.2 88 17 109/69 (82) 100 05/18/19 08:00 50 05/18/19 07:43 92 05/18/19 07:00 89 19 102/51 (68) 100 05/18/19 07:00 88 21 50 05/18/19 06:00 92 18 107/60 (76) 100 05/18/19 05:09 84 18 50 05/18/19 05:00 83 18 109/62 (78) 100 05/18/19 04:00 81 05/18/19 04:00 81 05/18/19 04:00 Mechanical Ventilator 05/18/19 03:30 80 18 50 05/18/19 03:29 60 05/18/19 03:20 92.0 80 18 132/82 (99) 100 05/18/19 03:00 92.0 93 18 76/43 (54) 100 05/18/19 02:00 92.0 93 18 100/32 (54) 100 05/18/19 01:38 Mechanical Ventilator 05/18/19 01:30 93 18 50 05/18/19 00:55 92 18 118/68 100 Mechanical Ventilator 60 05/18/19 00:29 18 121/65 Mechanical Ventilator 60 05/18/19 00:09 97 18 118/66 100 05/17/19 23:30 98.0 100 18 134/71 100 Mechanical Ventilator 05/17/19 23:29 18 134/71 Mechanical Ventilator 60 05/17/19 22:36 94 18 60 05/17/19 22:35 94 18 100 Mechanical Ventilator 60 05/17/19 22:00 96 18 120/76 96 Mechanical Ventilator 05/17/19 19:36 98.0 92 18 158/98 98 Room Air 05/17/19 19:36 92 18 Room Air 98 05/17/19 19:28 97.9 90 18 160/100 (120) 98 Room Air Intake and Output 05/17/19 05/18/19 19:00 07:00 Intake Total 4635.0 ml Output Total 340 ml Balance 4295.0 ml Intake IV Total 4635.0 ml Output Urine Total 340 ml # Voids 1 Laboratory Tests Test 05/17/19 21:20 05/17/19 21:45 05/17/19 22:40 05/17/19 22:53 Sodium Level 135 MMOL/L (136-145) L Potassium Level 5.2 MMOL/L (3.5-5.1) H Chloride Level 104 MMOL/L (98-107) Carbon Dioxide Level 17 MMOL/L (21-32) L Anion Gap 14 mmol/L (5-15) Blood Urea Nitrogen 29 mg/dL (7-18) H Creatinine 2.8 MG/DL (0.55-1.30) H Estimat Glomerular Filtration Rate 17.4 mL/min (>60) Glucose Level 107 MG/DL (74-106) H Lactic Acid Level 7.50 mmol/L (0.4-2.0) H 7.00 mmol/L (0.66-2.22) H Calcium Level 8.7 MG/DL (8.5-10.1) Phosphorus Level 5.0 MG/DL (2.5-4.9) H Magnesium Level 1.6 MG/DL (1.8-2.4) L Total Bilirubin 6.1 MG/DL (0.2-1.0) H Direct Bilirubin 4.2 MG/DL (0.0-0.3) H Aspartate Amino Transf (AST/SGOT) 43 U/L (15-37) H Alanine Aminotransferase (ALT/SGPT) 17 U/L (12-78) Alkaline Phosphatase 201 U/L (46-116) H Ammonia 152 umol/L (11-32) H Total Creatine Kinase 217 U/L (26-308) Creatine Kinase MB 3.6 NG/ML (0.0-3.6) Creatine Kinase MB Relative Index 1.6 Troponin I 0.000 ng/mL (0.000-0.056) Pro-B-Type Natriuretic Peptide 889 pg/mL (0-125) H Total Protein 5.5 G/DL (6.4-8.2) L Albumin 1.3 G/DL (3.4-5.0) L Globulin 4.2 g/dL Albumin/Globulin Ratio 0.3 (1.0-2.7) L Triglycerides Level 62 MG/DL (30-150) Lipase 48 U/L (73-393) L White Blood Count 17.6 K/UL (4.8-10.8) H Red Blood Count 3.02 M/UL (4.20-5.40) L Hemoglobin 8.6 G/DL (12.0-16.0) L Hematocrit 27.4 % (37.0-47.0) L Mean Corpuscular Volume 91 FL (80-99) Mean Corpuscular Hemoglobin 28.5 PG (27.0-31.0) Mean Corpuscular Hemoglobin Concent 31.4 G/DL (32.0-36.0) L Red Cell Distribution Width 22.8 % (11.6-14.8) H Platelet Count 106 K/UL (150-450) L Mean Platelet Volume 7.7 FL (6.5-10.1) Neutrophils (%) (Auto) % (45.0-75.0) Lymphocytes (%) (Auto) % (20.0-45.0) Monocytes (%) (Auto) % (1.0-10.0) Eosinophils (%) (Auto) % (0.0-3.0) Basophils (%) (Auto) % (0.0-2.0) Differential Total Cells Counted 100 Neutrophils % (Manual) 87 % (45-75) H Lymphocytes % (Manual) 9 % (20-45) L Monocytes % (Manual) 4 % (1-10) Eosinophils % (Manual) 0 % (0-3) Basophils % (Manual) 0 % (0-2) Band Neutrophils 0 % (0-8) Platelet Estimate Decreased L Platelet Morphology Normal Polychromasia 1+ Anisocytosis 3+ Macrocytosis 1+ Prothrombin Time 19.5 SEC (9.30-11.50) H Prothromb Time International Ratio 1.9 (0.9-1.1) H Activated Partial Thromboplast Time 42 SEC (23-33) H Urine Color Yellow Urine Appearance Cloudy Urine pH 5 (4.5-8.0) Urine Specific Jewett 1.015 (1.005-1.035) Urine Protein 2+ (NEGATIVE) H Urine Glucose (UA) Negative (NEGATIVE) Urine Ketones 1+ (NEGATIVE) H Urine Blood 2+ (NEGATIVE) H Urine Nitrite Positive (NEGATIVE) H Urine Bilirubin 2+ (NEGATIVE) H Urine Ictotest Positive (NEGATIVE) Urine Urobilinogen 4 MG/DL (0.0-1.0) H Urine Leukocyte Esterase 3+ (NEGATIVE) H Urine RBC 5-10 /HPF (0 - 2) H Urine WBC Tntc /HPF (0 - 2) H Urine Squamous Epithelial Cells Moderate /LPF (NONE/OCC) H Urine Bacteria Many /HPF (NONE) H Urine Yeast Many /HPF (NONE) H Test 05/18/19 04:05 05/18/19 05:15 05/18/19 11:20 White Blood Count 10.0 K/UL (4.8-10.8) 12.3 K/UL (4.8-10.8) H Red Blood Count 2.46 M/UL (4.20-5.40) L 2.54 M/UL (4.20-5.40) L Hemoglobin 6.8 G/DL (12.0-16.0) *L 7.1 G/DL (12.0-16.0) L Hematocrit 22.1 % (37.0-47.0) L 22.8 % (37.0-47.0) L Mean Corpuscular Volume 90 FL (80-99) 90 FL (80-99) Mean Corpuscular Hemoglobin 27.7 PG (27.0-31.0) 27.8 PG (27.0-31.0) Mean Corpuscular Hemoglobin Concent 30.9 G/DL (32.0-36.0) L 31.0 G/DL (32.0-36.0) L Red Cell Distribution Width 24.7 % (11.6-14.8) H 25.4 % (11.6-14.8) H Platelet Count 63 K/UL (150-450) L 84 K/UL (150-450) L Mean Platelet Volume 7.5 FL (6.5-10.1) 5.7 FL (6.5-10.1) L Neutrophils (%) (Auto) % (45.0-75.0) % (45.0-75.0) Lymphocytes (%) (Auto) % (20.0-45.0) % (20.0-45.0) Monocytes (%) (Auto) % (1.0-10.0) % (1.0-10.0) Eosinophils (%) (Auto) % (0.0-3.0) % (0.0-3.0) Basophils (%) (Auto) % (0.0-2.0) % (0.0-2.0) Differential Total Cells Counted 100 100 Neutrophils % (Manual) 88 % (45-75) H 89 % (45-75) H Lymphocytes % (Manual) 4 % (20-45) L 6 % (20-45) L Monocytes % (Manual) 5 % (1-10) 5 % (1-10) Eosinophils % (Manual) 0 % (0-3) 0 % (0-3) Basophils % (Manual) 0 % (0-2) 0 % (0-2) Band Neutrophils 3 % (0-8) 0 % (0-8) Platelet Estimate Decreased L Decreased L Platelet Morphology Normal Normal Hypochromasia 2+ 2+ Anisocytosis 2+ 3+ Sodium Level 138 MMOL/L (136-145) Potassium Level 4.3 MMOL/L (3.5-5.1) Chloride Level 108 MMOL/L (98-107) H Carbon Dioxide Level 17 MMOL/L (21-32) L Anion Gap 13 mmol/L (5-15) Blood Urea Nitrogen 28 mg/dL (7-18) H Creatinine 2.4 MG/DL (0.55-1.30) H Estimat Glomerular Filtration Rate 20.8 mL/min (>60) Glucose Level 123 MG/DL (74-106) H Hemoglobin A1c 4.1 % (4.3-6.0) L Lactic Acid Level 6.70 mmol/L (0.4-2.0) H 6.70 mmol/L (0.66-2.22) H 4.80 mmol/L (0.4-2.0) H Uric Acid 9.9 MG/DL (2.6-7.2) H Calcium Level 7.9 MG/DL (8.5-10.1) L Phosphorus Level 5.0 MG/DL (2.5-4.9) H Magnesium Level 1.4 MG/DL (1.8-2.4) L Iron Level 53 ug/dL (50-175) Total Iron Binding Capacity 65 ug/dL (250-450) L Percent Iron Saturation 82 % (15-50) H Unsaturated Iron Binding 12 ug/dL (112-346) L Ferritin 273 NG/ML (8-388) Total Bilirubin 5.5 MG/DL (0.2-1.0) H Direct Bilirubin 3.6 MG/DL (0.0-0.3) H Gamma Glutamyl Transpeptidase 44 U/L (5-85) Aspartate Amino Transf (AST/SGOT) 30 U/L (15-37) Alanine Aminotransferase (ALT/SGPT) 10 U/L (12-78) L Alkaline Phosphatase 158 U/L (46-116) H Total Creatine Kinase 485 U/L (26-308) H Troponin I 0.000 ng/mL (0.000-0.056) Pro-B-Type Natriuretic Peptide 734 pg/mL (0-125) H Total Protein 4.4 G/DL (6.4-8.2) L Albumin 1.0 G/DL (3.4-5.0) L Globulin 3.4 g/dL Albumin/Globulin Ratio 0.3 (1.0-2.7) L Triglycerides Level 59 MG/DL (30-150) Cholesterol Level > 200 MG/DL (< 200) H LDL Cholesterol 13 mg/dL (<100) HDL Cholesterol 13 MG/DL (40-60) L Cholesterol/HDL Ratio 15.4 (3.3-4.4) H Vitamin B12 Level > 2000 PG/ML (193-986) H Folate 15.4 NG/ML (8.6-58.9) Thyroid Stimulating Hormone (TSH) 4.840 uiU/mL (0.358-3.740) Height (Feet): 5 Height (Inches): 0.00 Weight (Pounds): 195 Medications Current Medications Medications (Trade) Dose Ordered Sig/Almaz Route PRN Reason Start Time Stop Time Status Last Admin Dose Admin Cefepime HCl 1 gm/ Dextrose 55 ml @ 110 mls/hr Q24H IVPB 05/18/19 21:00 05/25/19 20:59 Chlorhexidine Gluconate (Shannon-Hex 2%) 1 applic DAILY@2000 TOPIC 05/18/19 20:00 06/17/19 19:59 Dextrose (Dextrose 50%) 25 ml Q30M PRN IV Hypoglycemia 05/17/19 21:45 06/16/19 21:44 Dextrose (Dextrose 50%) 50 ml Q30M PRN IV Hypoglycemia 05/17/19 21:45 06/16/19 21:44 Dextrose/Sodium Chloride 1,000 ml @ 50 mls/hr Q20H IV 05/17/19 21:38 06/16/19 21:37 05/18/19 02:40 Lactulose (Cephulac) 30 gm THREE TIMES A DAY NG 05/18/19 10:30 06/17/19 10:29 Lorazepam (Ativan 2mg/ml 1ml) 0.5 mg Q4H PRN IV For Anxiety 05/17/19 21:45 05/24/19 21:44 Metronidazole 100 ml @ 100 mls/hr Q6H IVPB 05/18/19 08:00 05/25/19 07:59 05/18/19 13:58 Morphine Sulfate (Morphine Sulfate) 1 mg Q4H PRN IVP For Pain 05/17/19 21:45 05/24/19 21:44 Ondansetron HCl (Zofran) 4 mg Q6H PRN IVP Nausea & Vomiting 05/17/19 21:45 06/16/19 21:44 Pantoprazole (Protonix) 40 mg EVERY 12 HOURS IVP 05/18/19 21:00 06/17/19 20:59 Rifaximin (Xifaxan) 550 mg EVERY 12 HOURS NG 05/18/19 21:00 05/25/19 20:59 Vancomycin HCl (Vanco rx to dose) 1 ea DAILY PRN MISC Per rx protocol 05/18/19 11:15 06/17/19 11:14 Assessment/Plan Problem List: (1) Sacral decubitus ulcer Assessment & Plan: Pt presented on admission with icteric sclerae and skin. Moisture intertrigo Madhu/left abd folds.(1.5cm long). Moisture intertrigo R groin(8.5cm) slit noted with small amt bleeding. Mons pubis,labia majora and medial aspects of both upper thigh erythematous . Partial thickness wound noted to L thoracic. Base of wound is moist and viable. Edges flat and adherent to base of wound.No exudate noted. (L) 0.6cm x (W)0.8cm. Non-blanchable erythema sacrum,R and L buttocks with scattered shearing .Full thickness pressure injury noted to sacrococcygeal area. Base of wound is steve with small amt slough noted in center.(L) 0.7cm x (W)0.3cm. Area around wound is erythematous non-blanchable with shearing . Full thickness pressure injury R buttocks . Base of wound is moist, with Slough in center.Surrounding area erythematous and denuded. Evolving serous blister L heel.Base of wound is fluctuant with delineated,red margins.(L)3.5cm x (W)5.5cm. Periwound without erythema or fluctuance. R heel firm and blanchable. Tx.Plan: Apply Triad Paste to Sacrum and R buttocks. Cover wounds with Optifoam drsg. Change every 3 days and PRN. Apply Triad Paste to abd folds, R groin,Mons pubis, medial aspects of both upper thighs with each perineal care. Apply Optifoam drsg L thoracic wound. Cover with Optifoam drsg. Change every 3 days and prn. Apply Cavilon Skin Barrier to both heels. Cover each heel with Optifoam drsg. Change every 7 days and prn. APM/CHRISSY Mattress. Reposition at least every 2hours or as tolerated. Off-load heels with pillow ICD Codes: L89.159 - Pressure ulcer of sacral region, unspecified stage SNOMED: 335847093 (2) Liver cirrhosis Assessment & Plan: DAILY ESTIMATED NEEDS: Needs based on Cirrhosis, Critical care, sepsis/ 58kg adj 22-30 kcals/kg 6069-5865 total kcals 1.2-2 g protein/kg 70-116 g total protein 20-25 mL/kg 2009-0318 total fluid mLs NUTRITION DIAGNOSIS: * Swallowing difficulty R/T respiratory status as evidenced by pt orally intubated, NPO at this time * Altered nutrition related lab values R/T cirrhosis, sepsis, clinical condition as evidenced by elev T bili (5.5), elev NH3 (152), elev LA (6.7), elev creat (2.4). CURRENT TF:NPO PO DIET RECOMMENDATIONS: CONCRETE BLOCK LAYER eval post extubation -> LOW NA ENTERAL NUTRITION RECOMMENDATIONS: Glucerna 1.2 @ 55ml/hr x 24 hrs to provide 1320ml, 1584kcal, 79g prot, 1063ml free water * Rec Glucerna 1.2 to maintain good BG control: h/o DM * As medically appropriate, initiate Glucerna 1.2 @ 25ml/hr x 6 hrs * Advance 10ml q 4-6 hrs as tolerated to goal rate. * HOB over 30 degrees/ water flush per MD. ADDITIONAL RECOMMENDATIONS: * Calibrated bedscale wt for accurate CBW * W/ TF, monitor need for NISS: h/o DM * F/up w/ wound eval: add Miquel 1pkt BID + VIt C 250mg QD * Monitor lytes, replete as needed . ICD Codes: K74.60 - Unspecified cirrhosis of liver SNOMED: 94823906 (3) Acute on chronic alcoholic liver disease ICD Codes: K70.9 - Alcoholic liver disease, unspecified SNOMED: 158230722 (4) Sepsis Assessment & Plan: Restore insufficiency, leukocytosis, anemia, lactic acidosis , liver insufficiency, sepsis Right line removed and pressure held until hemostasis obtained. Currently no significant hematoma or post injury comp occasion identified. Site clean dry. Left line in place and stable. Will recommend PICC line so femoral line can be removed and more definitive long -term access can be obtained given patient's current medical condition and likelihood for prolonged hospitalization stay Continue IV antibiotics We will monitor and follow with recommendations Ultrasound ordered ICD Codes: A41.9 - Sepsis, unspecified organism SNOMED: 59184659 Qualifiers: Qualified Codes: A41.9 - Sepsis, unspecified organism Efrain Whitaker May 18, 2019 14:22
[2019-05-18] MEDS ORDERED: Heparin1,000 units/500ml Premix(Conc:2 units/ml) IV PRN (14:30)
[2019-05-18] MEDS ORDERED: Lidocaine 1% Plain 30 ml INJ PRN (14:30)
[2019-05-18 14:44] LABS: APPEARANCE,URINE SLIGHTLY CLOUDY; BILIRUBIN, URINE 2+ (NEGATIVE); COLOR,URINE BROWN; GLUCOSE, URINE (UA) NEGATIVE (NEGATIVE); KETONES,URINE 1+ (NEGATIVE); LEUKOCYTE ESTERASE ,URINE 3+ (NEGATIVE); NITRITE,URINE POSITIVE (NEGATIVE); PH,URINE 5 (4.5-8.0); PROTEIN,URINE 2+ (NEGATIVE); UROBILINOGEN,URINE 4 MG/DL (0.0-1.0)
--- NOTE | 2019-05-18 14:56 | NUR ---
NURSE NOTES: OGT placed, as ordered, 60cm at the lip line. Confirmation by auscultation and was ordered to confirm via abdominal xray, awaiting results. Abdominal ultrasound completed as well. Addendum: 05/18/19 at 1502 by Maria Teresa Lamb RN NURSE NOTES: OGT placed, as ordered, 60cm at the lip line. Confirmation by auscultation and was ordered to confirm via abdominal xray, awaiting results. Renal ultrasound completed as well.
--- NOTE | 2019-05-18 15:15 | NUR ---
RADIOLOGY DEPT., ABDOMEN X-RAY FOR NGT PLMT COMPLETED.-P.DYE
--- NOTE | 2019-05-18 15:29 | Diagnostic Imaging Report ---
Indication: NG tube placement Technique: XRAY Abdomen 1v Comparison: 01/31/2019 Findings: NG tube tip in the stomach. Bowel gas pattern is nonspecific with distention of large and small bowel loops. No evidence to suggest free intraperitoneal air however sensitivity limited without standing/erect view. Airspace disease suggested in the right lower lung. Impression: Satisfactory positioning of nasogastric tube.
--- NOTE | 2019-05-18 15:30 | NUR ---
NURSE NOTES: OGT placement confirmed by radiology. Will give Lactulose as ordered. Turned and repositioned pt. Pt is still lethargic and responds to pain. Temp 99.0. Will turn off heater and remove blanket. Will continue to monitor.
--- NOTE | 2019-05-18 15:30 | NUR ---
NURSE NOTES: Called efraín Felipe regarding consent for PICC line and US paracentesis and left a message. Awaiting for call back.
--- NOTE | 2019-05-18 16:24 | Diagnostic Imaging Report ---
Indication: Renal insufficiency Technique: Multiplanar grayscale and color Doppler imaging of the bilateral kidneys and bladder Comparison: 04/19/2019 Findings: Again measures 9.5 centers in length. Left kidney measures 8.2 cm in length. Both kidneys demonstrate normal echogenicity. There is no hydronephrosis or sonographically appreciable renal stone. Draper catheter decompresses the bladder, precluding its evaluation. Incidental note is made of cirrhotic contour of the liver and mild to moderate abdominal pelvic ascites. IMPRESSION: No hydronephrosis or sonographically appreciable renal stone. * Renal echogenicity within normal limits. * Draper catheter decompresses the bladder, precluding its evaluation. * Incidental note made of cirrhotic contour of the liver and mild to moderate abdominopelvic ascites.
--- NOTE | 2019-05-18 17:21 | NUR ---
Social Service Note SHE familiar with patient from multiple admissions. SHE has attempted on numerous occasions to reach patient's son Matteo Mijares [phone] to arrange a family meeting with Dr. Khan to discuss treatment plan of care. Son has yet to return SHE calls. SW left a message today and is awaiting return call. Patient continues to show medical decline from previous admissions. Patient is a full code. Will continue to monitor and follow up.
--- NOTE | 2019-05-18 17:30 | NUR ---
NURSE NOTES: No more bleeding from left femoral TLC site. Turned and repositioned pt. Oral care done. Will continue to monitor.
--- NOTE | 2019-05-18 18:00 | History and Physical Report ---
DATE OF ADMISSION: 05/17/2019 CHIEF COMPLAINT: The patient is a 58-year-old female, who presents with a chief complaint of altered mental status. HISTORY OF PRESENT ILLNESS: The patient is a resident of [facility]. The patient was recently admitted to [facility] from 05/03/2019 to 05/19/2019 for sepsis. Please see history and physical and discharge summary dictated at that time. According to the staff at [facility], the patient began to have altered mental status yesterday on 05/17/2019. The patient was transferred to [facility]. The patient was found to be hypotensive with blood pressure 70/63. The patient was also found to be in respiratory distress. The patient was also hypothermic. The patient was emergently intubated in the emergency room. The patient is currently admitted to the intensive care unit. The patient is admitted with altered mental status and probable septic shock. REVIEW OF SYSTEMS: Unable to assess secondary to the patient's mental status. PAST MEDICAL HISTORY: Significant for: 1. Alcoholic cirrhosis of the liver. 2. Hypertension. 3. Diabetes type 2. 4. Thrombocytopenia. 5. Hepatic encephalopathy. 6. Ascites. 7. Hypercholesterolemia. 8. Portal hypertension. PAST SURGICAL HISTORY: Significant for section x1. CURRENT MEDICATIONS: 1. Amlodipine 5 mg 1 tablet p.o. daily. 2. Aspirin 81 mg p.o. daily. 3. Banophen 25 mg p.o. q.6 h. p.r.n. 4. Furosemide 20 mg p.o. daily. 5. Hydroxyzine 10 mg p.o. at bedtime. 6. Lactulose 20 g p.o. three times daily. 7. Multivitamin one tablet p.o. daily. 8. Zofran 4 mg p.o. twice daily p.r.n. 9. Calcium carbonate with vitamin D one tablet p.o. daily. 10. Pantoprazole 40 mg p.o. daily. 11. Propranolol 10 mg p.o. q.8 h. 12. Pro-Stat 30 mL p.o. daily. 13. Spironolactone 50 mg p.o. daily. 14. Sucralfate 1 g p.o. four times daily. 15. Tylenol No. 3 with codeine one tablet p.o. q.6 h. p.r.n. 16. Vitamin B1 one tablet p.o. daily. 17. Vitamin C 500 mg p.o. daily. 18. Zinc sulfate 220 mg p.o. daily. ALLERGIES: No known drug allergies. SOCIAL HISTORY: The patient is single and is a resident of [facility]. The patient denies tobacco or alcohol use. PHYSICAL EXAMINATION: VITAL SIGNS: Temperature 97.9, respirations 18, pulse 90, blood pressure 120/76. GENERAL: The patient is a well-developed and well-nourished obese female, who is intubated and sedated. HEENT: Eyes, pupils are equal and responsive to light and accommodation. Extraocular movements are intact. NECK: Supple without lymphadenopathy. CHEST: Coarse upper breath sounds, otherwise without wheezes or rales. CARDIOVASCULAR: Regular rhythm, rate. S1, S2 normal without murmurs, rubs, or gallops. ABDOMEN: Soft, distended with decreased bowel sounds. No evidence of hepatosplenomegaly. Currently, no rebound or guarding noted. EXTREMITIES: Negative for clubbing, cyanosis, or edema. RECTAL/GENITAL: Not performed. NEUROLOGICAL: Unable to assess. LABORATORY STUDIES: WBC 17.6, hemoglobin 8.6, hematocrit 27.4, and platelets 106,000. Sodium 135, potassium 5.2, chloride 104, CO2 17, BUN 29, creatinine 2.8, glucose 107. Liver function test elevated with alkaline phosphatase of 201, ammonia level of 152. BNP elevated at 189. Urinalysis was reported as 2+ protein, 1+ ketones, 2+ blood, nitrite positive, 2+ bilirubin, 3+ leukocyte esterase with wbc's too numerous to count. ASSESSMENT: This is a 58-year-old female. 1. Respiratory failure. 2. Urinary tract infection. 3. Probable sepsis. 4. Probable septic shock. 5. Alcoholic cirrhosis of the liver. 6. Hypertension. 7. Diabetes type 2. 8. Ascites. 9. Hypercholesterolemia. TREATMENT: 1. Respiratory failure. A Pulmonary consultation has been obtained with Dr. Shireen Khan. The patient is currently intubated and sedated in the intensive care unit. We will follow recommendations of Pulmonary. 2. Urinary tract infection. An Infectious Disease consultation has been obtained with . The patient has been placed empirically on cefepime and vancomycin. Await urine and sputum cultures. 3. Probable sepsis. 4. Septic shock. 5. Alcoholic cirrhosis of liver. A Gastroenterology consultation has been obtained with Dr. Jon Torres. The patient may require paracentesis. 6. Hypertension. The patient is currently hypotensive. Hold all antihypertensive medications. 7. Diabetes type 2. A NovoLog sliding scale has been instituted. 8. Ascites, as above. A Gastroenterology consultation has been obtained with Dr. Jon Torres. The patient may require paracentesis. 9. Hypercholesterolemia. Jose Benjamin M.D. DR: LULA JOB#: [id number] CC:
[2019-05-18] MEDS ORDERED: PROTONIX40 M2 PO (18:25)
--- NOTE | 2019-05-18 19:10 | NUR ---
HAND-OFF: Report given to CHAVA Adame.
--- NOTE | 2019-05-18 19:12 | NUR ---
NURSE NOTES: Received report from BaldemarRN and Maria TeresaRN. Patient is lethargic. ST 100s on the monitor. ETT 7.5/21cm at lip line. Vent setting AC 18, VT 450, FiO2 50% and Peep 5. No distress/SOB noted. NPO. OGT intact and clean. Left femoral TLC intact, clean and running with D51/2NS @50ml/hr. Right H 20G intact and patent. Kept dry, clean and comfortable. Call light placed in easy reach. Will continue plan of care.
[2019-05-18] MEDS ORDERED: [UNRECOGNIZED DRUG - OTHER] IVPB ONE (19:30)
[2019-05-18] MEDS ORDERED: VANCOMYCIN IVPB ONE (19:30)
[2019-05-18] MEDS: Dyna-Hex 2% Top Sol 2oz TOPIC SCH (19:42)
--- NOTE | 2019-05-18 19:55 | NUR ---
RESPIRATORY NOTE: Received pt. on 840 vent. Vent settings are: A/C rate of 18, Vt 450, FI02 50%, PEEP +5. No respiratory distress noted, pt. sP02 @ 100%. Ambu bag @ BS. Vent plugged on red outlet. Will continue to monitor pt.
[2019-05-18] MEDS ORDERED: Dyna-Hex 2% Top Sol 2oz TOPIC SCH (20:00)
--- NOTE | 2019-05-18 20:00 | NUR ---
NURSE NOTES: Due medications given and repositioned patient.
--- NOTE | 2019-05-18 20:24 | NUR ---
NURSE NOTES: Called Son/Matteo Mijares for PICC line placement and paracentesis consents and left message. Will follow up.
--- NOTE | 2019-05-18 21:09 | NUR ---
NURSE NOTES: Obtained telephone consent from Son/Brendon Mijaresel for PICC line placement and Ultrasound guided paracentesis. Will continue plan of care.
[2019-05-18] MEDS: Cefepime HCl 1 GM in D5W 55 ML IVPB SCH (21:19)
[2019-05-18] MEDS: Pantoprazole Inj IVP SCH (21:19)
--- NOTE | 2019-05-18 22:20 | NUR ---
NURSE NOTES: Repositioned patient. kept dry, clean and comfortable. No change in condition.
--- NOTE | 2019-05-18 23:00 | NUR ---
NURSE NOTES: Blood drawn and sent to the lab.
[2019-05-19] VITALS (24 sets, daily range): BP systolic 89–142; BP diastolic 43–100
--- NOTE | 2019-05-19 00:05 | NUR ---
NURSE NOTES: Repositioned patient. Noted with low fever. Initiated cooling measure. Will continue plan of care.
--- NOTE | 2019-05-19 02:02 | NUR ---
NURSE NOTES: Provided oral care and repositioned patient.
--- NOTE | 2019-05-19 04:02 | NUR ---
NURSE NOTES: Bed bath given and changed left femoral TLC dressing.
[2019-05-19 04:57] LABS: HEMATOCRIT 23.6 % (37.0-47.0); HEMOGLOBIN 7.3 G/DL (12.0-16.0); MEAN CORPUSCULAR VOLUME 90 FL (80-99); PLATELET COUNT 96 K/UL (150-450); RED BLOOD COUNT 2.63 M/UL (4.20-5.40); RED CELL DISTRIBUTION WIDTH 24.7 % (11.6-14.8); WHITE BLOOD COUNT 13.1 K/UL (4.8-10.8)
[2019-05-19 05:14] LABS: INR 1.9 (0.9-1.1)
--- NOTE | 2019-05-19 05:20 | NUR ---
NURSE NOTES: Flushed bentley catheter with 50cc sterile water.
[2019-05-19 06:24] LABS: AMMONIA 67 umol/L (11-32)
[2019-05-19 06:26] LABS: ALANINE AMINOTRANSFERASE 15 U/L (12-78); ALBUMIN/GLOBULIN RATIO 0.3 (1.0-2.7); ALKALINE PHOSPHATASE 196 U/L (46-116); ANION GAP 11 mmol/L (5-15); ASPARTATE AMINO TRANSFERASE 31 U/L (15-37); BILIRUBIN,TOTAL 6.4 MG/DL (0.2-1.0); BLOOD UREA NITROGEN 32 mg/dL (7-18); CARBON DIOXIDE 20 MMOL/L (21-32); CHLORIDE 107 MMOL/L (98-107); CREATININE 2.5 MG/DL (0.55-1.30); PHOSPHORUS 4.4 MG/DL (2.5-4.9); POTASSIUM 3.9 MMOL/L (3.5-5.1); SODIUM 138 MMOL/L (136-145)
[2019-05-19 06:29] LABS: BILIRUBIN,DIRECT 4.5 MG/DL (0.0-0.3)
[2019-05-19] MEDS ORDERED: Etomidate 40mg/20ml Inj IV ONE (07:00)
[2019-05-19] MEDS ORDERED: Rocuronium Bromide 50mg/5ml Inj IV ONE (07:00)
--- NOTE | 2019-05-19 07:20 | NUR ---
RESPIRATORY NOTE: Patient received mechanically ventilated on PB 840 with current ordered vent settings. Patient is orally intubated with size 7.5 ETT tube with 21 cm at the lip line that is secured with a commercial holster. Vent alarms are functional and audible. There is an ambu bag available at the bedside and the vent is connected to a red outlet. Will continue to monitor.
--- NOTE | 2019-05-19 07:24 | NUR ---
HAND-OFF: Report given to CHAVA Almeida. Endorsed plan of care.
--- NOTE | 2019-05-19 08:00 | NUR ---
NURSE NOTES: Received change of shift report from Chetan LARSEN. Pt is lethargic, however has facial grimacing and moves upper extremities to touch. Bilateral pupil at 5mm constricts to 4mm with pen light. Pt is intubated, ETT 7.5 at 21cm right lipline with vent settings AC 18, VT 450, Peep 5.0, and FIO2 50% with 100% O2sat. Bilateral inspiratory and expiratory rhonchi is noted on auscultation. institutional cook displays SR to ST with heart rate fluctuating in the upper 90's to 110 with weak peripheral pulses. Pt has left femoral triple lumen central line, infusing D5 0.45% NS at 50ml/hour, and peripheral IV access on right hand #20G, saline locked, patent/intact. Temp 98.1F oral. Pt has orogastric tube in place with no feeding at this time. Abdomen is large, round, soft, nontender to touch with hypoactive bowel sounds. Draper catheter is in place, draining gisselle colored slightly cloudy urine with sediments. Skin has sacral wound covered with optifoam dressing, dry/intact, bilateral groin excoriation and left heel blister. Pt is on pressure releasing mattress. Will continue to monitor pt and follow plan of care per MD orders and protocol.
[2019-05-19] MEDS: Pantoprazole Inj IVP SCH ×2 (08:30→20:10)
[2019-05-19] MEDS: Lactulose 20gm/30ml UDC NG SCH ×3 (08:30→17:48)
--- NOTE | 2019-05-19 08:40 | NUR ---
RADIOLOGY DEPT., CHEST X-RAY DONE BY MARIO JULIAN.JANETH
[2019-05-19] MEDS: LORazepam Inj 2mg/ml 1ml IV PRN (09:14)
[2019-05-19] MEDS: Morphine Sulfate 2mg/ml Inj(IV/IM USE ONLY) IVP PRN (09:15)
--- NOTE | 2019-05-19 09:15 | NUR ---
NURSE NOTES: Pt was administered Ativan and Morphine IVP as per PRN orders for anxiety and severe pain. Pt is noted to have facial grimacing, restlessness, attempting to reach for and pull out ET tube.
--- NOTE | 2019-05-19 09:52 | Pulmonolgy Critical Care Note ---
Critical Care - Asmt/Plan Problems: (1) Acute respiratory failure (2) Acute metabolic encephalopathy (3) Sepsis (4) Anasarca (5) Hepatic encephalopathy (6) Coagulopathy (7) Thrombocytopenia (8) Liver cirrhosis Respiratory: monitor respiratory rate, adjust FIO2, CXR Cardiac: continue pressors, continue to monitor HR/BP Renal: F/U I&O, keep IV fluid, check electrolytes Infectious Disease: check cultures, continue antibiotics Gastrointestinal: continue feedings/current rate Endocrine: monitor blood sugar, check HgA1C Hematologic: monitor H/H, transfuse if hgb<8.5 Neurologic: PRN Ativan, PRN Morphine, keep patient comfortable Affect: PRN ativan Prophylaxis: Protonix Notes Reviewed: cardio, renal Discussed with: nurses, consultants, returned case inspectorsolar sales manager - Objective Last 24 Hour Vital Signs Date Time Temp Pulse Resp B/P (MAP) Pulse Ox O2 Delivery O2 Flow Rate FiO2 05/19/19 09:45 99.1 05/19/19 09:13 110 32 50 05/19/19 09:00 109 27 142/70 (94) 99 05/19/19 08:00 98.2 98 25 114/84 (94) 97 05/19/19 08:00 50 05/19/19 07:17 88 19 50 05/19/19 07:00 88 18 100/63 (75) 100 05/19/19 06:00 96 24 108/59 (75) 100 05/19/19 05:20 90 19 50 05/19/19 05:00 98 22 122/100 (107) 100 05/19/19 04:00 99.1 116 26 133/78 (96) 100 05/19/19 04:00 50 05/19/19 04:00 Mechanical Ventilator 05/19/19 04:00 96 05/19/19 03:19 97 21 50 05/19/19 03:00 101 18 90/43 (59) 100 05/19/19 02:00 109 18 128/82 (97) 100 05/19/19 01:28 120 36 50 05/19/19 01:00 117 18 114/76 (89) 100 05/19/19 00:00 99.9 99 18 115/81 (92) 100 05/19/19 00:00 50 05/19/19 00:00 Mechanical Ventilator 05/19/19 00:00 92 9/18/19 23:15 89 18 50 05/18/19 23:00 92 90/47 (61) 100 05/18/19 22:00 91 18 90/50 (63) 100 05/18/19 21:30 91 19 50 05/18/19 21:00 93 18 91/57 (68) 100 05/18/19 20:00 99.1 118 18 148/87 (107) 100 05/18/19 20:00 Mechanical Ventilator 05/18/19 20:00 50 05/18/19 20:00 112 05/18/19 19:53 108 22 50 05/18/19 19:00 98.9 116 18 104/47 (66) 100 05/18/19 18:00 114 18 116/65 (82) 100 05/18/19 17:10 91 20 50 05/18/19 17:00 92 18 97/63 (74) 100 05/18/19 16:00 50 05/18/19 16:00 90 05/18/19 16:00 Mechanical Ventilator 05/18/19 16:00 99.0 91 19 95/53 (67) 100 05/18/19 15:18 95 22 50 05/18/19 15:00 93 18 102/57 (72) 100 05/18/19 14:00 90 18 101/57 (72) 100 05/18/19 13:22 92 20 50 05/18/19 13:00 90 19 91/59 (70) 100 05/18/19 12:00 50 05/18/19 12:00 98.5 86 91/47 (62) 100 05/18/19 12:00 Mechanical Ventilator 05/18/19 11:38 89 05/18/19 11:20 100 24 50 05/18/19 11:00 100 18 112/78 (89) 100 05/18/19 10:00 89 18 100/55 (70) 100 Status: awake Condition: critical HEENT: atraumatic, normocephalic Neck: full ROM Lungs: rales, rhonchi Heart: HR/BP stable Abdomen: soft, non-tender, feeding tube Extremities: edema Micro: Microbiology Date/Time Source Procedure Growth Status 05/17/19 21:20 Blood Blood Culture - Preliminary NO GROWTH AFTER 24 HOURS Resulted 05/17/19 21:20 Blood Blood Culture - Preliminary NO GROWTH AFTER 24 HOURS Resulted 05/17/19 22:40 Urine,Clean Catch Urine Culture - Preliminary Gram Negative Bacillus 1 Resulted Critical Care - Subjective ROS Limited/Unobtainable: No Condition: critical EKG Rhythm: Sinus Rhythm FI02: 50 Vent Support Breath Rate: 18 Vent Support Mode: AC Vent Tidal Volume: 450 Sputum Amount: Small PEEP: 5.0 PIP: 19 I&O: Intake and Output 05/18/19 05/19/19 19:00 07:00 Intake Total 975.5 ml 855 ml Output Total 170 ml 180 ml Balance 805.5 ml 675 ml Intake Oral 120 ml IV Total 855.5 ml 855 ml Output Urine Total 170 ml 180 ml # Bowel Movements 1 CXR: ET at marainne ET-Tube: 7.5 ET Position: 21 Labs: Laboratory Tests Test 05/18/19 11:20 05/18/19 14:00 05/18/19 17:45 05/18/19 22:55 White Blood Count 12.3 K/UL (4.8-10.8) H Red Blood Count 2.54 M/UL (4.20-5.40) L Hemoglobin 7.1 G/DL (12.0-16.0) L Hematocrit 22.8 % (37.0-47.0) L Mean Corpuscular Volume 90 FL (80-99) Mean Corpuscular Hemoglobin 27.8 PG (27.0-31.0) Mean Corpuscular Hemoglobin Concent 31.0 G/DL (32.0-36.0) L Red Cell Distribution Width 25.4 % (11.6-14.8) H Platelet Count 84 K/UL (150-450) L Mean Platelet Volume 5.7 FL (6.5-10.1) L Neutrophils (%) (Auto) % (45.0-75.0) Lymphocytes (%) (Auto) % (20.0-45.0) Monocytes (%) (Auto) % (1.0-10.0) Eosinophils (%) (Auto) % (0.0-3.0) Basophils (%) (Auto) % (0.0-2.0) Differential Total Cells Counted 100 Neutrophils % (Manual) 89 % (45-75) H Lymphocytes % (Manual) 6 % (20-45) L Monocytes % (Manual) 5 % (1-10) Eosinophils % (Manual) 0 % (0-3) Basophils % (Manual) 0 % (0-2) Band Neutrophils 0 % (0-8) Other Cell Type Pathologist review Platelet Estimate Decreased L Platelet Morphology Normal Hypochromasia 2+ Anisocytosis 3+ Lactic Acid Level 4.80 mmol/L (0.4-2.0) H 3.40 mmol/L (0.4-2.0) H 4.00 mmol/L (0.4-2.0) H Urine Color Brown Urine Appearance Slightly cloudy Urine pH 5 (4.5-8.0) Urine Specific [place] 1.015 (1.005-1.035) Urine Protein 2+ (NEGATIVE) H Urine Glucose (UA) Negative (NEGATIVE) Urine Ketones 1+ (NEGATIVE) H Urine Blood 5+ (NEGATIVE) H Urine Nitrite Positive (NEGATIVE) H Urine Bilirubin 2+ (NEGATIVE) H Urine Ictotest Positive (NEGATIVE) Urine Urobilinogen 4 MG/DL (0.0-1.0) H Urine Leukocyte Esterase 3+ (NEGATIVE) H Urine RBC 5-10 /HPF (0 - 2) H Urine WBC 20-30 /HPF (0 - 2) H Urine Squamous Epithelial Cells Occasional /LPF Urine Bacteria Few /HPF (NONE) Urine Yeast Moderate /HPF (NONE) H Urine Eosinophils None seen (NONE SEEN) Urine Osmolality 337 mOsm/kg (429-449) L Urine Random Creatinine Pending Urine Random Microalbumin Pending Urine Random Sodium < 20 mmol/L (20-110) L Urine Microalbumin/Creatinine Ratio Pending Random Vancomycin Level 7.4 ug/mL Test 05/18/19 23:55 05/19/19 04:10 05/19/19 05:53 05/19/19 09:21 Lactic Acid Level 3.80 mmol/L (0.66-2.22) H 4.70 mmol/L (0.4-2.0) H 4.40 mmol/L (0.66-2.22) H White Blood Count 13.1 K/UL (4.8-10.8) H Red Blood Count 2.63 M/UL (4.20-5.40) L Hemoglobin 7.3 G/DL (12.0-16.0) L Hematocrit 23.6 % (37.0-47.0) L Mean Corpuscular Volume 90 FL (80-99) Mean Corpuscular Hemoglobin 27.7 PG (27.0-31.0) Mean Corpuscular Hemoglobin Concent 30.8 G/DL (32.0-36.0) L Red Cell Distribution Width 24.7 % (11.6-14.8) H Platelet Count 96 K/UL (150-450) L Mean Platelet Volume 6.8 FL (6.5-10.1) Neutrophils (%) (Auto) % (45.0-75.0) Lymphocytes (%) (Auto) % (20.0-45.0) Monocytes (%) (Auto) % (1.0-10.0) Eosinophils (%) (Auto) % (0.0-3.0) Basophils (%) (Auto) % (0.0-2.0) Differential Total Cells Counted 100 Neutrophils % (Manual) 83 % (45-75) H Lymphocytes % (Manual) 7 % (20-45) L Monocytes % (Manual) 10 % (1-10) Eosinophils % (Manual) 0 % (0-3) Basophils % (Manual) 0 % (0-2) Band Neutrophils 0 % (0-8) Platelet Estimate Decreased L Platelet Morphology Normal Hypochromasia 1+ Anisocytosis 3+ Reticulocyte Count 7.0 % (0.5-2.0) H Prothrombin Time 19.4 SEC (9.30-11.50) H Prothromb Time International Ratio 1.9 (0.9-1.1) H Activated Partial Thromboplast Time 46 SEC (23-33) H Stool Occult Blood Pending Sodium Level 138 MMOL/L (136-145) Potassium Level 3.9 MMOL/L (3.5-5.1) Chloride Level 107 MMOL/L (98-107) Carbon Dioxide Level 20 MMOL/L (21-32) L Anion Gap 11 mmol/L (5-15) Blood Urea Nitrogen 32 mg/dL (7-18) H Creatinine 2.5 MG/DL (0.55-1.30) H Estimat Glomerular Filtration Rate 19.9 mL/min (>60) Glucose Level 114 MG/DL (74-106) H Uric Acid 10.1 MG/DL (2.6-7.2) H Calcium Level 8.0 MG/DL (8.5-10.1) L Phosphorus Level 4.4 MG/DL (2.5-4.9) Magnesium Level 1.5 MG/DL (1.8-2.4) L Total Bilirubin 6.4 MG/DL (0.2-1.0) H Direct Bilirubin 4.5 MG/DL (0.0-0.3) H Aspartate Amino Transf (AST/SGOT) 31 U/L (15-37) Alanine Aminotransferase (ALT/SGPT) 15 U/L (12-78) Alkaline Phosphatase 196 U/L (46-116) H Ammonia 67 umol/L (11-32) H C-Reactive Protein, Quantitative 20.9 mg/dL (0.00-0.90) H Pro-B-Type Natriuretic Peptide 828 pg/mL (0-125) H Total Protein 4.8 G/DL (6.4-8.2) L Albumin 1.0 G/DL (3.4-5.0) L Globulin 3.8 g/dL Albumin/Globulin Ratio 0.3 (1.0-2.7) L Free Thyroxine 1.25 NG/DL (0.76-1.46) Cortisol AM Sample Pending Arterial Blood pH 7.439 (7.350-7.450) Arterial Blood Partial Pressure CO2 24.2 mmHg (35.0-45.0) *L Arterial Blood Partial Pressure O2 153.8 mmHg (75.0-100.0) H Arterial Blood HCO3 16.0 mmol/L (22.0-26.0) *L Arterial Blood Oxygen Saturation 98.9 % (95-100) Arterial Blood Base Excess -7.3 (-2-2) L Saravanan Test Positive Shireen Khan MD May 19, 2019 09:52
[2019-05-19] MEDS ORDERED: Haloperidol 5mg/ml Inj IVPB PRN (10:00)
--- NOTE | 2019-05-19 10:30 | NUR ---
NURSE NOTES: Pt was repositioned. Oral care done. VS stable with no s/s of distress noted.
--- NOTE | 2019-05-19 11:29 | NUR ---
RADIOLOGY DEPT., CHEST X-RAY FOR PICC PLMT COMPLETED BY TECH: BASHIR
--- NOTE | 2019-05-19 11:39 | Diagnostic Imaging Report ---
Indication: Dyspnea Comparison: 05/17/2019 A single view chest radiograph was obtained. Findings: Endotracheal tube is just above the marianne unchanged. There is platelike atelectasis at the right lung base unchanged. Mild cardiomegaly is stable. NG tube is faintly visualized but somewhat in the stomach. Position is satisfactory. IMPRESSION: NG tube satisfactory position No change otherwise
--- NOTE | 2019-05-19 12:00 | NUR ---
NURSE NOTES: Pt was seen by Dr Khan. Order noted for Haldol 5mg IVP Q1hour for agitation.
--- NOTE | 2019-05-19 12:12 | Diagnostic Imaging Report ---
Indication: buttermaker helper venous access Findings: After the indications, procedure, risks, complications, and alternatives of the procedure were explained, written informed consent was obtained. The left upper extremity was prepped with alcohol. All elements of maximal sterile barrier technique were followed including usage of a cap, mask, sterile gown, sterile gloves, hand hygiene and a large sterile sheet. Sonographic evaluation of the upper extremity was performed demonstrating a patent and compressible basilic vein. Access was obtained under real-time ultrasound guidance (with utilization of sterile gel and sterile probe cover) and digital image was saved and archived. An .018 wire was introduced. Needle exchanged for a 5 Korean peel-away sheath. Measurements were obtained. A 5 Korean dual-lumen Power PICC line catheter was cut to 40 cm and introduced over the wire. Peel-away sheath and wire were removed.Catheter was secured to the skin using 2-0 Prolene suture. Both ports aspirate and flush easily. Post procedure chest x-ray demonstrates good position of the PICC line catheter within the right atrium. Impression: Successful placement of an upper extremity PICC line catheter
--- NOTE | 2019-05-19 12:13 | Infectious Diseases Prog Note ---
Assessment/Plan Assessment/Plan 58 yo female with PMHx of Liver cirrhosis with recurrent ascites, HTN, ETOH abuse, DM and Hepatic encephalopathy who presented to the ED on 05/17/19 with AMS. Sepsis UA (+) CXR no sign of PNA Urine Cx 05/17/19 - GNR AMS Hepatic encephalopathy ? vs Urosepsis Leukocytosis No fever Hx Gram negative bacteremia -05/03 BCx 2/4 ACHROMOBACTER XYLOSOXIDANS (S Zosyn, Ceftazidime, bactrim; R cefepime; I imipenem, Levaquin); 05/05 Bcx NTD Recurrent ascites -05/05 SP paracentesis: 3.5 L removed wbc 170 (N 49%); cx Neg - -03/11/19 sp paracentesis:fluid wbc 97 (N 34%) HTN DM Liver Cirrhosis EtOH abuse Plan: -Continue Cefepime #2 Flagyl #2 and Vancomycin #2 -f/u cx -Monitor CBC/CMP, temperatures Thank you for this consult. We will continue to follow the patient with you. Subjective Allergies: Coded Allergies: No Known Allergies (Unverified , 01/31/19) Objective Vital Signs Last 24 Hour Vital Signs Date Time Temp Pulse Resp B/P (MAP) Pulse Ox O2 Delivery O2 Flow Rate FiO2 05/19/19 11:25 101 18 50 05/19/19 11:00 87 18 97/58 (71) 100 05/19/19 10:00 87 15 94/49 (64) 100 05/19/19 09:45 99.1 05/19/19 09:13 110 32 50 05/19/19 09:00 109 27 142/70 (94) 99 05/19/19 08:00 88 05/19/19 08:00 Mechanical Ventilator 05/19/19 08:00 98.2 98 25 114/84 (94) 97 05/19/19 08:00 50 05/19/19 07:17 88 19 50 05/19/19 07:00 88 18 100/63 (75) 100 05/19/19 06:00 96 24 108/59 (75) 100 05/19/19 05:20 90 19 50 05/19/19 05:00 98 22 122/100 (107) 100 05/19/19 04:00 99.1 116 26 133/78 (96) 100 05/19/19 04:00 50 05/19/19 04:00 Mechanical Ventilator 05/19/19 04:00 96 05/19/19 03:19 97 21 50 05/19/19 03:00 101 18 90/43 (59) 100 05/19/19 02:00 109 18 128/82 (97) 100 05/19/19 01:28 120 36 50 05/19/19 01:00 117 18 114/76 (89) 100 05/19/19 00:00 99.9 99 18 115/81 (92) 100 05/19/19 00:00 50 05/19/19 00:00 Mechanical Ventilator 05/19/19 00:00 92 05/18/19 23:15 89 18 50 05/18/19 23:00 92 90/47 (61) 100 05/18/19 22:00 91 18 90/50 (63) 100 05/18/19 21:30 91 19 50 05/18/19 21:00 93 18 91/57 (68) 100 05/18/19 20:00 99.1 118 18 148/87 (107) 100 05/18/19 20:00 Mechanical Ventilator 05/18/19 20:00 50 05/18/19 20:00 112 05/18/19 19:53 108 22 50 05/18/19 19:00 98.9 116 18 104/47 (66) 100 05/18/19 18:00 114 18 116/65 (82) 100 05/18/19 17:10 91 20 50 05/18/19 17:00 92 18 97/63 (74) 100 05/18/19 16:00 50 05/18/19 16:00 90 05/18/19 16:00 Mechanical Ventilator 05/18/19 16:00 99.0 91 19 95/53 (67) 100 05/18/19 15:18 95 22 50 05/18/19 15:00 93 18 102/57 (72) 100 05/18/19 14:00 90 18 101/57 (72) 100 05/18/19 13:22 92 20 50 05/18/19 13:00 90 19 91/59 (70) 100 Height (Feet): 5 Height (Inches): 0.00 Weight (Pounds): 192 Microbiology Date/Time Source Procedure Growth Status 05/17/19 21:20 Blood Blood Culture - Preliminary NO GROWTH AFTER 24 HOURS Resulted 05/17/19 21:20 Blood Blood Culture - Preliminary NO GROWTH AFTER 24 HOURS Resulted 05/17/19 22:40 Urine,Clean Catch Urine Culture - Preliminary Gram Negative Bacillus 1 Resulted Laboratory Tests Test 05/18/19 14:00 05/18/19 17:45 05/18/19 22:55 05/18/19 23:55 Urine Color Brown Urine Appearance Slightly cloudy Urine pH 5 (4.5-8.0) Urine Specific [place] 1.015 (1.005-1.035) Urine Protein 2+ (NEGATIVE) H Urine Glucose (UA) Negative (NEGATIVE) Urine Ketones 1+ (NEGATIVE) H Urine Blood 5+ (NEGATIVE) H Urine Nitrite Positive (NEGATIVE) H Urine Bilirubin 2+ (NEGATIVE) H Urine Ictotest Positive (NEGATIVE) Urine Urobilinogen 4 MG/DL (0.0-1.0) H Urine Leukocyte Esterase 3+ (NEGATIVE) H Urine RBC 5-10 /HPF (0 - 2) H Urine WBC 20-30 /HPF (0 - 2) H Urine Squamous Epithelial Cells Occasional /LPF Urine Bacteria Few /HPF (NONE) Urine Yeast Moderate /HPF (NONE) H Urine Eosinophils None seen (NONE SEEN) Urine Osmolality 337 mOsm/kg (429-449) L Urine Random Creatinine Pending Urine Random Microalbumin Pending Urine Random Sodium < 20 mmol/L (20-110) L Urine Microalbumin/Creatinine Ratio Pending Lactic Acid Level 3.40 mmol/L (0.4-2.0) H 4.00 mmol/L (0.4-2.0) H 3.80 mmol/L (0.66-2.22) H Random Vancomycin Level 7.4 ug/mL Test 05/19/19 04:10 05/19/19 05:53 05/19/19 09:21 White Blood Count 13.1 K/UL (4.8-10.8) H Red Blood Count 2.63 M/UL (4.20-5.40) L Hemoglobin 7.3 G/DL (12.0-16.0) L Hematocrit 23.6 % (37.0-47.0) L Mean Corpuscular Volume 90 FL (80-99) Mean Corpuscular Hemoglobin 27.7 PG (27.0-31.0) Mean Corpuscular Hemoglobin Concent 30.8 G/DL (32.0-36.0) L Red Cell Distribution Width 24.7 % (11.6-14.8) H Platelet Count 96 K/UL (150-450) L Mean Platelet Volume 6.8 FL (6.5-10.1) Neutrophils (%) (Auto) % (45.0-75.0) Lymphocytes (%) (Auto) % (20.0-45.0) Monocytes (%) (Auto) % (1.0-10.0) Eosinophils (%) (Auto) % (0.0-3.0) Basophils (%) (Auto) % (0.0-2.0) Differential Total Cells Counted 100 Neutrophils % (Manual) 83 % (45-75) H Lymphocytes % (Manual) 7 % (20-45) L Monocytes % (Manual) 10 % (1-10) Eosinophils % (Manual) 0 % (0-3) Basophils % (Manual) 0 % (0-2) Band Neutrophils 0 % (0-8) Platelet Estimate Decreased L Platelet Morphology Normal Hypochromasia 1+ Anisocytosis 3+ Reticulocyte Count 7.0 % (0.5-2.0) H Prothrombin Time 19.4 SEC (9.30-11.50) H Prothromb Time International Ratio 1.9 (0.9-1.1) H Activated Partial Thromboplast Time 46 SEC (23-33) H Stool Occult Blood Negative (NEGATIVE) Sodium Level 138 MMOL/L (136-145) Potassium Level 3.9 MMOL/L (3.5-5.1) Chloride Level 107 MMOL/L (98-107) Carbon Dioxide Level 20 MMOL/L (21-32) L Anion Gap 11 mmol/L (5-15) Blood Urea Nitrogen 32 mg/dL (7-18) H Creatinine 2.5 MG/DL (0.55-1.30) H Estimat Glomerular Filtration Rate 19.9 mL/min (>60) Glucose Level 114 MG/DL (74-106) H Lactic Acid Level 4.70 mmol/L (0.4-2.0) H 4.40 mmol/L (0.66-2.22) H Uric Acid 10.1 MG/DL (2.6-7.2) H Calcium Level 8.0 MG/DL (8.5-10.1) L Phosphorus Level 4.4 MG/DL (2.5-4.9) Magnesium Level 1.5 MG/DL (1.8-2.4) L Total Bilirubin 6.4 MG/DL (0.2-1.0) H Direct Bilirubin 4.5 MG/DL (0.0-0.3) H Aspartate Amino Transf (AST/SGOT) 31 U/L (15-37) Alanine Aminotransferase (ALT/SGPT) 15 U/L (12-78) Alkaline Phosphatase 196 U/L (46-116) H Ammonia 67 umol/L (11-32) H C-Reactive Protein, Quantitative 20.9 mg/dL (0.00-0.90) H Pro-B-Type Natriuretic Peptide 828 pg/mL (0-125) H Total Protein 4.8 G/DL (6.4-8.2) L Albumin 1.0 G/DL (3.4-5.0) L Globulin 3.8 g/dL Albumin/Globulin Ratio 0.3 (1.0-2.7) L Free Thyroxine 1.25 NG/DL (0.76-1.46) Cortisol AM Sample 12.5 UG/DL Arterial Blood pH 7.439 (7.350-7.450) Arterial Blood Partial Pressure CO2 24.2 mmHg (35.0-45.0) *L Arterial Blood Partial Pressure O2 153.8 mmHg (75.0-100.0) H Arterial Blood HCO3 16.0 mmol/L (22.0-26.0) *L Arterial Blood Oxygen Saturation 98.9 % (95-100) Arterial Blood Base Excess -7.3 (-2-2) L Saravanan Test Positive Current Medications Medications (Trade) Dose Ordered Sig/Almaz Route PRN Reason Start Time Stop Time Status Last Admin Dose Admin Cefepime HCl 1 gm/ Dextrose 55 ml @ 110 mls/hr Q24H IVPB 05/18/19 21:00 05/25/19 20:59 05/18/19 21:19 Chlorhexidine Gluconate (Shannon-Hex 2%) 1 applic DAILY@2000 TOPIC 05/18/19 20:00 06/17/19 19:59 05/18/19 19:42 Dextrose (Dextrose 50%) 25 ml Q30M PRN IV Hypoglycemia 05/17/19 21:45 06/16/19 21:44 Dextrose (Dextrose 50%) 50 ml Q30M PRN IV Hypoglycemia 05/17/19 21:45 06/16/19 21:44 Dextrose/Sodium Chloride 1,000 ml @ 50 mls/hr Q20H IV 05/17/19 21:38 06/16/19 21:37 05/18/19 17:39 Haloperidol Lactate (Haldol) 5 mg EVERY HOUR PRN IVPB Agitation 05/19/19 10:00 06/18/19 09:59 Heparin Sodium/ Sodium Chloride (Heparin 1000 units/500ml Premix) 1,000 unit ONCE PRN IV PICC line placement 05/18/19 14:30 05/19/19 23:59 Lactulose (Cephulac) 30 gm THREE TIMES A DAY NG 05/18/19 10:30 06/17/19 10:29 05/19/19 08:30 Lidocaine HCl (Xylocaine 1% 30ml) 30 ml ONCE PRN INJ PICC line placement 05/18/19 14:30 05/19/19 23:59 Lorazepam (Ativan 2mg/ml 1ml) 0.5 mg Q4H PRN IV For Anxiety 05/17/19 21:45 05/24/19 21:44 05/19/19 09:14 Metronidazole 100 ml @ 100 mls/hr Q6H IVPB 05/18/19 08:00 05/25/19 07:59 05/19/19 08:31 Morphine Sulfate (Morphine Sulfate) 1 mg Q4H PRN IVP For Pain 05/17/19 21:45 05/24/19 21:44 05/19/19 09:15 Ondansetron HCl (Zofran) 4 mg Q6H PRN IVP Nausea & Vomiting 05/17/19 21:45 06/16/19 21:44 Pantoprazole (Protonix) 40 mg EVERY 12 HOURS IVP 05/18/19 21:00 06/17/19 20:59 05/19/19 08:30 Rifaximin (Xifaxan) 550 mg EVERY 12 HOURS NG 05/18/19 21:00 05/25/19 20:59 05/19/19 08:31 Vancomycin HCl (Vanco rx to dose) 1 ea DAILY PRN MISC Per rx protocol 05/18/19 11:15 06/17/19 11:14 Vincent Edward MD May 19, 2019 12:13
--- NOTE | 2019-05-19 13:06 | Nephrology Progress Note ---
Assessment/Plan Problem List: (1) ATN (acute tubular necrosis) (2) Sepsis (3) Acute respiratory failure (4) Acute on chronic alcoholic liver disease (5) Anemia Assessment Renal failure- Acute On May 09, 2019 normal renal parameters Severe Anemia, Acute on chronic- Acute part from right groin attempted line insertion Severe HypoAlbuminemia, Cirrhosis, ALD, Ascites Sepsis- High lactic Acid Acute respiratory failure Previous gram negative bacteremia / Sepsis Plan Hydrate- Antibiotics Monitor renal parameters avoid nephrotoxics transfuse as needed- one unit today per orders duscussed with RN Subjective ROS Limited/Unobtainable: Yes Objective Objective Last 24 Hour Vital Signs Date Time Temp Pulse Resp B/P (MAP) Pulse Ox O2 Delivery O2 Flow Rate FiO2 05/19/19 12:00 Mechanical Ventilator 05/19/19 12:00 35 05/19/19 11:25 101 18 50 05/19/19 11:00 87 18 97/58 (71) 100 05/19/19 10:00 87 15 94/49 (64) 100 05/19/19 09:45 99.1 05/19/19 09:13 110 32 50 05/19/19 09:00 109 27 142/70 (94) 99 05/19/19 08:00 88 05/19/19 08:00 Mechanical Ventilator 05/19/19 08:00 98.2 98 25 114/84 (94) 97 05/19/19 08:00 50 05/19/19 07:17 88 19 50 05/19/19 07:00 88 18 100/63 (75) 100 05/19/19 06:00 96 24 108/59 (75) 100 05/19/19 05:20 90 19 50 05/19/19 05:00 98 22 122/100 (107) 100 05/19/19 04:00 99.1 116 26 133/78 (96) 100 05/19/19 04:00 50 05/19/19 04:00 Mechanical Ventilator 05/19/19 04:00 96 05/19/19 03:19 97 21 50 05/19/19 03:00 101 18 90/43 (59) 100 05/19/19 02:00 109 18 128/82 (97) 100 05/19/19 01:28 120 36 50 05/19/19 01:00 117 18 114/76 (89) 100 05/19/19 00:00 99.9 99 18 115/81 (92) 100 05/19/19 00:00 50 05/19/19 00:00 Mechanical Ventilator 05/19/19 00:00 92 05/18/19 23:15 89 18 50 05/18/19 23:00 92 90/47 (61) 100 05/18/19 22:00 91 18 90/50 (63) 100 05/18/19 21:30 91 19 50 05/18/19 21:00 93 18 91/57 (68) 100 05/18/19 20:00 99.1 118 18 148/87 (107) 100 05/18/19 20:00 Mechanical Ventilator 05/18/19 20:00 50 05/18/19 20:00 112 05/18/19 19:53 108 22 50 05/18/19 19:00 98.9 116 18 104/47 (66) 100 05/18/19 18:00 114 18 116/65 (82) 100 05/18/19 17:10 91 20 50 05/18/19 17:00 92 18 97/63 (74) 100 05/18/19 16:00 50 05/18/19 16:00 90 05/18/19 16:00 Mechanical Ventilator 05/18/19 16:00 99.0 91 19 95/53 (67) 100 05/18/19 15:18 95 22 50 05/18/19 15:00 93 18 102/57 (72) 100 05/18/19 14:00 90 18 101/57 (72) 100 05/18/19 13:22 92 20 50 Intake and Output 05/18/19 05/19/19 19:00 07:00 Intake Total 975.5 ml 855 ml Output Total 170 ml 180 ml Balance 805.5 ml 675 ml Intake Oral 120 ml IV Total 855.5 ml 855 ml Output Urine Total 170 ml 180 ml # Bowel Movements 1 Laboratory Tests 05/18/19 14:00: Urine Color Brown, Urine Appearance Slightly cloudy, Urine pH 5, Urine Specific [place] 1.015, Urine Protein 2+H, Urine Glucose (UA) Negative, Urine Ketones 1+H , Urine Blood 5+H, Urine Nitrite PositiveH, Urine Bilirubin 2+H, Urine Ictotest Positive, Urine Urobilinogen 4H, Urine Leukocyte Esterase 3+H, Urine RBC 5-10H, Urine WBC 20-30H, Urine Squamous Epithelial Cells Occasional, Urine Bacteria Few , Urine Yeast ModerateH, Urine Eosinophils None seen, Urine Osmolality 337L, Urine Random Creatinine [Pending], Urine Random Microalbumin [Pending], Urine Random Sodium < 20L, Urine Microalbumin/Creatinine Ratio [Pending] 05/18/19 17:45: Lactic Acid Level 3.40H, Random Vancomycin Level 7.4 05/18/19 22:55: Lactic Acid Level 4.00H 05/18/19 23:55: Lactic Acid Level 3.80H 05/19/19 04:10: White Blood Count 13.1H, Red Blood Count 2.63L, Hemoglobin 7.3L, Hematocrit 23.6L, Mean Corpuscular Volume 90, Mean Corpuscular Hemoglobin 27.7, Mean Corpuscular Hemoglobin Concent 30.8L, Red Cell Distribution Width 24.7H, Platelet Count 96L, Mean Platelet Volume 6.8, Neutrophils (%) (Auto) , Lymphocytes (%) (Auto) , Monocytes (%) (Auto) , Eosinophils (%) (Auto) , Basophils (%) (Auto) , Differential Total Cells Counted 100, Neutrophils % ( Manual) 83H, Lymphocytes % (Manual) 7L, Monocytes % (Manual) 10, Eosinophils % ( Manual) 0, Basophils % (Manual) 0, Band Neutrophils 0, Platelet Estimate DecreasedL, Platelet Morphology Normal, Hypochromasia 1+, Anisocytosis 3+, Reticulocyte Count 7.0H, Prothrombin Time 19.4H, Prothromb Time International Ratio 1.9H, Activated Partial Thromboplast Time 46H, Stool Occult Blood Negative , Sodium Level 138, Potassium Level 3.9, Chloride Level 107, Carbon Dioxide Level 20L, Anion Gap 11, Blood Urea Nitrogen 32H, Creatinine 2.5H, Estimat Glomerular Filtration Rate 19.9, Glucose Level 114H, Lactic Acid Level 4.70H, Uric Acid 10.1H, Calcium Level 8.0L, Phosphorus Level 4.4, Magnesium Level 1.5L , Total Bilirubin 6.4H, Direct Bilirubin 4.5H, Aspartate Amino Transf (AST/SGOT ) 31, Alanine Aminotransferase (ALT/SGPT) 15, Alkaline Phosphatase 196H, Ammonia 67H, C-Reactive Protein, Quantitative 20.9H, Pro-B-Type Natriuretic Peptide 828H, Total Protein 4.8L, Albumin 1.0L, Globulin 3.8, Albumin/Globulin Ratio 0.3L, Free Thyroxine 1.25, Cortisol AM Sample 12.5 05/19/19 05:53: Lactic Acid Level 4.40H 05/19/19 09:21: Arterial Blood pH 7.439, Arterial Blood Partial Pressure CO2 24.2*L, Arterial Blood Partial Pressure O2 153.8H, Arterial Blood HCO3 16.0*L, Arterial Blood Oxygen Saturation 98.9, Arterial Blood Base Excess -7.3L, Saravanan Test Positive Height (Feet): 5 Height (Inches): 0.00 Weight (Pounds): 192 General Appearance: no apparent distress, other - sedated EENT: other - vented Cardiovascular: tachycardia Respiratory/Chest: decreased breath sounds Abdomen: distended Jovany Byers MD May 19, 2019 13:06
[2019-05-19] MEDS ORDERED: Phytonadione 1 MG in D5W 55 ML IVPB ONE (14:00)
--- NOTE | 2019-05-19 14:00 | NUR ---
NURSE NOTES: Pt's son has been contacted for consent for blood transfusion. Awaiting for response. Per Dr Byers, ok to give 1 unit of PRBC at this time.
[2019-05-19] MEDS: D5 1/2NS 1,000 ML IV SCH (14:40)
--- NOTE | 2019-05-19 15:00 | NUR ---
NURSE NOTES: Paracentesis was done at bedside, with total output of 4.5L. Dressing was applied with 2x2 gauze and covered with tegaderm by the career and technology education teacher.
--- NOTE | 2019-05-19 16:26 | Diagnostic Imaging Report ---
Indications: Ascites Procedure: Informed consent obtained. Ultrasound used to localize optimal puncture site. Sterile prepping and draping over the optimum site. Local anesthesia with 1% lidocaine. Under real-time ultrasound guidance, puncture of the peritoneal space performed using paracentesis needle. Digital image was saved and archived. Stylet removed. Catheter placed to vacuum bottle suction. Fluid was aspirated. Patient tolerated procedure well, without immediate complication. Fluid sent for several studies is requested. Findings: Followup sonography demonstrates complete resolution of peritoneal fluid Impression: Successful ultrasound-guided paracentesis, yielding 4.8 liters of fluid
--- NOTE | 2019-05-19 17:08 | Internal Med Progress Note ---
Subjective Date of Service: May 19, 2019 Physician Name CassidyJose Attending Physician Goldy Amador MD Current Medications Medications (Trade) Dose Ordered Sig/Almaz Route PRN Reason Start Time Stop Time Status Last Admin Dose Admin Cefepime HCl 1 gm/ Dextrose 55 ml @ 110 mls/hr Q24H IVPB 05/18/19 21:00 05/25/19 20:59 05/18/19 21:19 Chlorhexidine Gluconate (Shannon-Hex 2%) 1 applic DAILY@2000 TOPIC 05/18/19 20:00 06/17/19 19:59 05/18/19 19:42 Dextrose (Dextrose 50%) 25 ml Q30M PRN IV Hypoglycemia 05/17/19 21:45 06/16/19 21:44 Dextrose (Dextrose 50%) 50 ml Q30M PRN IV Hypoglycemia 05/17/19 21:45 06/16/19 21:44 Dextrose/Sodium Chloride 1,000 ml @ 50 mls/hr Q20H IV 05/17/19 21:38 06/16/19 21:37 05/19/19 14:40 Haloperidol Lactate (Haldol) 5 mg EVERY HOUR PRN IVPB Agitation 05/19/19 10:00 06/18/19 09:59 Heparin Sodium/ Sodium Chloride (Heparin 1000 units/500ml Premix) 1,000 unit ONCE PRN IV PICC line placement 05/18/19 14:30 05/19/19 23:59 Lactulose (Cephulac) 30 gm THREE TIMES A DAY NG 05/18/19 10:30 06/17/19 10:29 05/19/19 14:40 Lidocaine HCl (Xylocaine 1% 30ml) 30 ml ONCE PRN INJ PICC line placement 05/18/19 14:30 05/19/19 23:59 Lorazepam (Ativan 2mg/ml 1ml) 0.5 mg Q4H PRN IV For Anxiety 05/17/19 21:45 05/24/19 21:44 05/19/19 09:14 Metronidazole 100 ml @ 100 mls/hr Q6H IVPB 05/18/19 08:00 05/25/19 07:59 05/19/19 14:39 Morphine Sulfate (Morphine Sulfate) 1 mg Q4H PRN IVP For Pain 05/17/19 21:45 05/24/19 21:44 05/19/19 09:15 Ondansetron HCl (Zofran) 4 mg Q6H PRN IVP Nausea & Vomiting 05/17/19 21:45 06/16/19 21:44 Pantoprazole (Protonix) 40 mg EVERY 12 HOURS IVP 05/18/19 21:00 06/17/19 20:59 05/19/19 08:30 Rifaximin (Xifaxan) 550 mg EVERY 12 HOURS NG 05/18/19 21:00 05/25/19 20:59 05/19/19 08:31 Vancomycin HCl (Vanco rx to dose) 1 ea DAILY PRN MISC Per rx protocol 05/18/19 11:15 06/17/19 11:14 Allergies: Coded Allergies: No Known Allergies (Unverified , 01/31/19) ROS Limited/Unobtainable: Yes Subjective 58 YO F admitted with respiratory failure and presumed septic shock. Now UTI. Cover for Int [place]-Dr Amador. Intubated and sedated. ICU. S/P paracentesis 05/19 Objective Last Vital Signs Date Time Temp Pulse Resp B/P (MAP) Pulse Ox O2 Delivery O2 Flow Rate FiO2 05/19/19 16:00 83 05/19/19 16:00 Mechanical Ventilator 05/19/19 16:00 35 05/19/19 16:00 18 89/65 (73) 100 05/19/19 12:00 98.4 Laboratory Tests Test 05/18/19 17:45 05/18/19 22:55 05/18/19 23:55 05/19/19 04:10 Lactic Acid Level 3.40 mmol/L (0.4-2.0) H 4.00 mmol/L (0.4-2.0) H 3.80 mmol/L (0.66-2.22) H 4.70 mmol/L (0.4-2.0) H Random Vancomycin Level 7.4 ug/mL White Blood Count 13.1 K/UL (4.8-10.8) H Red Blood Count 2.63 M/UL (4.20-5.40) L Hemoglobin 7.3 G/DL (12.0-16.0) L Hematocrit 23.6 % (37.0-47.0) L Mean Corpuscular Volume 90 FL (80-99) Mean Corpuscular Hemoglobin 27.7 PG (27.0-31.0) Mean Corpuscular Hemoglobin Concent 30.8 G/DL (32.0-36.0) L Red Cell Distribution Width 24.7 % (11.6-14.8) H Platelet Count 96 K/UL (150-450) L Mean Platelet Volume 6.8 FL (6.5-10.1) Neutrophils (%) (Auto) % (45.0-75.0) Lymphocytes (%) (Auto) % (20.0-45.0) Monocytes (%) (Auto) % (1.0-10.0) Eosinophils (%) (Auto) % (0.0-3.0) Basophils (%) (Auto) % (0.0-2.0) Differential Total Cells Counted 100 Neutrophils % (Manual) 83 % (45-75) H Lymphocytes % (Manual) 7 % (20-45) L Monocytes % (Manual) 10 % (1-10) Eosinophils % (Manual) 0 % (0-3) Basophils % (Manual) 0 % (0-2) Band Neutrophils 0 % (0-8) Platelet Estimate Decreased L Platelet Morphology Normal Hypochromasia 1+ Anisocytosis 3+ Reticulocyte Count 7.0 % (0.5-2.0) H Prothrombin Time 19.4 SEC (9.30-11.50) H Prothromb Time International Ratio 1.9 (0.9-1.1) H Activated Partial Thromboplast Time 46 SEC (23-33) H Stool Occult Blood Negative (NEGATIVE) Sodium Level 138 MMOL/L (136-145) Potassium Level 3.9 MMOL/L (3.5-5.1) Chloride Level 107 MMOL/L (98-107) Carbon Dioxide Level 20 MMOL/L (21-32) L Anion Gap 11 mmol/L (5-15) Blood Urea Nitrogen 32 mg/dL (7-18) H Creatinine 2.5 MG/DL (0.55-1.30) H Estimat Glomerular Filtration Rate 19.9 mL/min (>60) Glucose Level 114 MG/DL (74-106) H Uric Acid 10.1 MG/DL (2.6-7.2) H Calcium Level 8.0 MG/DL (8.5-10.1) L Phosphorus Level 4.4 MG/DL (2.5-4.9) Magnesium Level 1.5 MG/DL (1.8-2.4) L Total Bilirubin 6.4 MG/DL (0.2-1.0) H Direct Bilirubin 4.5 MG/DL (0.0-0.3) H Aspartate Amino Transf (AST/SGOT) 31 U/L (15-37) Alanine Aminotransferase (ALT/SGPT) 15 U/L (12-78) Alkaline Phosphatase 196 U/L (46-116) H Ammonia 67 umol/L (11-32) H C-Reactive Protein, Quantitative 20.9 mg/dL (0.00-0.90) H Pro-B-Type Natriuretic Peptide 828 pg/mL (0-125) H Total Protein 4.8 G/DL (6.4-8.2) L Albumin 1.0 G/DL (3.4-5.0) L Globulin 3.8 g/dL Albumin/Globulin Ratio 0.3 (1.0-2.7) L Free Thyroxine 1.25 NG/DL (0.76-1.46) Cortisol AM Sample 12.5 UG/DL Test 05/19/19 05:53 05/19/19 09:21 05/19/19 12:55 Lactic Acid Level 4.40 mmol/L (0.66-2.22) H 3.90 mmol/L (0.4-2.0) H Arterial Blood pH 7.439 (7.350-7.450) Arterial Blood Partial Pressure CO2 24.2 mmHg (35.0-45.0) *L Arterial Blood Partial Pressure O2 153.8 mmHg (75.0-100.0) H Arterial Blood HCO3 16.0 mmol/L (22.0-26.0) *L Arterial Blood Oxygen Saturation 98.9 % (95-100) Arterial Blood Base Excess -7.3 (-2-2) L Saravanan Test Positive Microbiology Date/Time Source Procedure Growth Status 05/17/19 21:20 Blood Blood Culture - Preliminary NO GROWTH AFTER 24 HOURS Resulted 05/17/19 21:20 Blood Blood Culture - Preliminary NO GROWTH AFTER 24 HOURS Resulted 05/17/19 22:40 Urine,Clean Catch Urine Culture - Preliminary Gram Negative Bacillus 1 Resulted Intake and Output 05/18/19 05/19/19 19:00 07:00 Intake Total 975.5 ml 855 ml Output Total 170 ml 180 ml Balance 805.5 ml 675 ml Intake Oral 120 ml IV Total 855.5 ml 855 ml Output Urine Total 170 ml 180 ml # Bowel Movements 1 Objective PHYSICAL EXAMINATION: GENERAL: The patient is a well-developed and well-nourished obese female, who is intubated and sedated. HEENT: Eyes, pupils are equal and responsive to light and accommodation. Extraocular movements are intact. NECK: Supple without lymphadenopathy. CHEST: Mech vent; Coarse upper breath sounds, otherwise without wheezes or rales. CARDIOVASCULAR: Regular rhythm, rate. S1, S2 normal without murmurs, rubs, or gallops. ABDOMEN: Soft, distended with decreased bowel sounds. No evidence of hepatosplenomegaly. Currently, no rebound or guarding noted. EXTREMITIES: Negative for clubbing, cyanosis, or edema. RECTAL/GENITAL: Not performed. NEUROLOGICAL: Unable to assess. Assessment/Plan Assessment/Plan ASSESSMENT: This is a 58-year-old female. 1. Respiratory failure. 2. Urinary tract infection. 3. Probable sepsis. 4. Probable septic shock. 5. Alcoholic cirrhosis of the liver. 6. Hypertension. 7. Diabetes type 2. 8. Ascites. 9. Hypercholesterolemia. TREATMENT: 1. Respiratory failure. A Pulmonary consultation has been obtained with Dr. Shireen Khan. The patient is currently intubated and sedated in the intensive care unit. We will follow recommendations of Pulmonary. 2. Urinary tract infection. An Infectious Disease consultation has been obtained with . The patient has been placed empirically on cefepime, flagyl and vancomycin. Urine culture=gram neg elinor 3. Probable sepsis. 4. Septic shock. 5. Alcoholic cirrhosis of liver. A Gastroenterology consultation has been obtained with Dr. Jon Torres. S/P paracentesis 05/19/19 6. Hypertension. The patient is currently hypotensive. Hold all antihypertensive medications. 7. Diabetes type 2. A NovoLog sliding scale has been instituted. 8. Ascites, as above. A Gastroenterology consultation has been obtained with Dr. Jon Torres. The patient may require paracentesis. 9. Hypercholesterolemia. Jose Benjamin MD May 19, 2019 17:07
--- NOTE | 2019-05-19 17:30 | NUR ---
NURSE NOTES: Pt was cleaned, gown/linens and dressings changed. Oral care done and pt repositioned. GT feeding has been started after the paracentesis with feeding Glucerna 1.2 with starting rate of 10ml/hour.
--- NOTE | 2019-05-19 18:00 | NUR ---
NURSE NOTES: Pt's son was contacted again, awaiting for consent for blood transfusion, message left and awaiting for response.
--- NOTE | 2019-05-19 18:09 | Surgery Progress Note ---
Surgery Progress Note Subjective Additional Comments paracentesis today US arterial noted and okay wound site stable on vent support labs noted Objective Last 24 Hour Vital Signs Date Time Temp Pulse Resp B/P (MAP) Pulse Ox O2 Delivery O2 Flow Rate FiO2 05/19/19 17:12 82 20 50 05/19/19 17:00 98.2 86 18 103/46 (65) 95 05/19/19 16:00 83 05/19/19 16:00 Mechanical Ventilator 05/19/19 16:00 35 05/19/19 16:00 83 18 89/65 (73) 100 05/19/19 15:26 90 23 50 05/19/19 15:00 87 18 95/51 (66) 100 05/19/19 14:00 87 18 96/59 (71) 100 05/19/19 13:00 88 17 99/64 (76) 100 05/19/19 12:50 89 18 50 05/19/19 12:00 Mechanical Ventilator 05/19/19 12:00 87 05/19/19 12:00 35 05/19/19 12:00 98.4 88 18 100/58 (72) 99 05/19/19 11:25 101 18 50 05/19/19 11:00 87 18 97/58 (71) 100 05/19/19 10:00 87 15 94/49 (64) 100 05/19/19 09:45 99.1 05/19/19 09:13 110 32 50 05/19/19 09:00 109 27 142/70 (94) 99 05/19/19 08:00 88 05/19/19 08:00 Mechanical Ventilator 05/19/19 08:00 98.2 98 25 114/84 (94) 97 05/19/19 08:00 50 05/19/19 07:17 88 19 50 05/19/19 07:00 88 18 100/63 (75) 100 05/19/19 06:00 96 24 108/59 (75) 100 05/19/19 05:20 90 19 50 05/19/19 05:00 98 22 122/100 (107) 100 05/19/19 04:00 99.1 116 26 133/78 (96) 100 05/19/19 04:00 50 05/19/19 04:00 Mechanical Ventilator 05/19/19 04:00 96 05/19/19 03:19 97 21 50 05/19/19 03:00 101 18 90/43 (59) 100 05/19/19 02:00 109 18 128/82 (97) 100 05/19/19 01:28 120 36 50 05/19/19 01:00 117 18 114/76 (89) 100 05/19/19 00:00 99.9 99 18 115/81 (92) 100 05/19/19 00:00 50 05/19/19 00:00 Mechanical Ventilator 05/19/19 00:00 92 05/18/19 23:15 89 18 50 05/18/19 23:00 92 90/47 (61) 100 05/18/19 22:00 91 18 90/50 (63) 100 05/18/19 21:30 91 19 50 05/18/19 21:00 93 18 91/57 (68) 100 05/18/19 20:00 99.1 118 18 148/87 (107) 100 05/18/19 20:00 Mechanical Ventilator 05/18/19 20:00 50 05/18/19 20:00 112 05/18/19 19:53 108 22 50 05/18/19 19:00 98.9 116 18 104/47 (66) 100 I&O Intake and Output 05/18/19 05/19/19 19:00 07:00 Intake Total 975.5 ml 855 ml Output Total 170 ml 180 ml Balance 805.5 ml 675 ml Intake Oral 120 ml IV Total 855.5 ml 855 ml Output Urine Total 170 ml 180 ml # Bowel Movements 1 Dressing: saturated Cardiovascular: RSR Respiratory: clear, decreased breath sounds Abdomen: soft, present bowel sounds, non-distended Extremities: no cyanosis, other Laboratory Tests Test 05/18/19 22:55 05/18/19 23:55 05/19/19 04:10 05/19/19 05:53 Lactic Acid Level 4.00 mmol/L (0.4-2.0) H 3.80 mmol/L (0.66-2.22) H 4.70 mmol/L (0.4-2.0) H 4.40 mmol/L (0.66-2.22) H White Blood Count 13.1 K/UL (4.8-10.8) H Red Blood Count 2.63 M/UL (4.20-5.40) L Hemoglobin 7.3 G/DL (12.0-16.0) L Hematocrit 23.6 % (37.0-47.0) L Mean Corpuscular Volume 90 FL (80-99) Mean Corpuscular Hemoglobin 27.7 PG (27.0-31.0) Mean Corpuscular Hemoglobin Concent 30.8 G/DL (32.0-36.0) L Red Cell Distribution Width 24.7 % (11.6-14.8) H Platelet Count 96 K/UL (150-450) L Mean Platelet Volume 6.8 FL (6.5-10.1) Neutrophils (%) (Auto) % (45.0-75.0) Lymphocytes (%) (Auto) % (20.0-45.0) Monocytes (%) (Auto) % (1.0-10.0) Eosinophils (%) (Auto) % (0.0-3.0) Basophils (%) (Auto) % (0.0-2.0) Differential Total Cells Counted 100 Neutrophils % (Manual) 83 % (45-75) H Lymphocytes % (Manual) 7 % (20-45) L Monocytes % (Manual) 10 % (1-10) Eosinophils % (Manual) 0 % (0-3) Basophils % (Manual) 0 % (0-2) Band Neutrophils 0 % (0-8) Platelet Estimate Decreased L Platelet Morphology Normal Hypochromasia 1+ Anisocytosis 3+ Reticulocyte Count 7.0 % (0.5-2.0) H Prothrombin Time 19.4 SEC (9.30-11.50) H Prothromb Time International Ratio 1.9 (0.9-1.1) H Activated Partial Thromboplast Time 46 SEC (23-33) H Stool Occult Blood Negative (NEGATIVE) Sodium Level 138 MMOL/L (136-145) Potassium Level 3.9 MMOL/L (3.5-5.1) Chloride Level 107 MMOL/L (98-107) Carbon Dioxide Level 20 MMOL/L (21-32) L Anion Gap 11 mmol/L (5-15) Blood Urea Nitrogen 32 mg/dL (7-18) H Creatinine 2.5 MG/DL (0.55-1.30) H Estimat Glomerular Filtration Rate 19.9 mL/min (>60) Glucose Level 114 MG/DL (74-106) H Uric Acid 10.1 MG/DL (2.6-7.2) H Calcium Level 8.0 MG/DL (8.5-10.1) L Phosphorus Level 4.4 MG/DL (2.5-4.9) Magnesium Level 1.5 MG/DL (1.8-2.4) L Total Bilirubin 6.4 MG/DL (0.2-1.0) H Direct Bilirubin 4.5 MG/DL (0.0-0.3) H Aspartate Amino Transf (AST/SGOT) 31 U/L (15-37) Alanine Aminotransferase (ALT/SGPT) 15 U/L (12-78) Alkaline Phosphatase 196 U/L (46-116) H Ammonia 67 umol/L (11-32) H C-Reactive Protein, Quantitative 20.9 mg/dL (0.00-0.90) H Pro-B-Type Natriuretic Peptide 828 pg/mL (0-125) H Total Protein 4.8 G/DL (6.4-8.2) L Albumin 1.0 G/DL (3.4-5.0) L Globulin 3.8 g/dL Albumin/Globulin Ratio 0.3 (1.0-2.7) L Free Thyroxine 1.25 NG/DL (0.76-1.46) Cortisol AM Sample 12.5 UG/DL Test 05/19/19 09:21 05/19/19 12:55 Arterial Blood pH 7.439 (7.350-7.450) Arterial Blood Partial Pressure CO2 24.2 mmHg (35.0-45.0) *L Arterial Blood Partial Pressure O2 153.8 mmHg (75.0-100.0) H Arterial Blood HCO3 16.0 mmol/L (22.0-26.0) *L Arterial Blood Oxygen Saturation 98.9 % (95-100) Arterial Blood Base Excess -7.3 (-2-2) L Saravanan Test Positive Lactic Acid Level 3.90 mmol/L (0.4-2.0) H Plan Problems: (1) Sacral decubitus ulcer Assessment & Plan: Pt presented on admission with icteric sclerae and skin. Moisture intertrigo Madhu/left abd folds.(1.5cm long). Moisture intertrigo R groin(8.5cm) slit noted with small amt bleeding. Mons pubis,labia majora and medial aspects of both upper thigh erythematous . Partial thickness wound noted to L thoracic. Base of wound is moist and viable. Edges flat and adherent to base of wound.No exudate noted. (L) 0.6cm x (W)0.8cm. Non-blanchable erythema sacrum,R and L buttocks with scattered shearing .Full thickness pressure injury noted to sacrococcygeal area. Base of wound is steve with small amt slough noted in center.(L) 0.7cm x (W)0.3cm. Area around wound is erythematous non-blanchable with shearing . Full thickness pressure injury R buttocks . Base of wound is moist, with Slough in center.Surrounding area erythematous and denuded. Evolving serous blister L heel.Base of wound is fluctuant with delineated,red margins.(L)3.5cm x (W)5.5cm. Periwound without erythema or fluctuance. R heel firm and blanchable. Tx.Plan: Apply Triad Paste to Sacrum and R buttocks. Cover wounds with Optifoam drsg. Change every 3 days and PRN. Apply Triad Paste to abd folds, R groin,Mons pubis, medial aspects of both upper thighs with each perineal care. Apply Optifoam drsg L thoracic wound. Cover with Optifoam drsg. Change every 3 days and prn. Apply Cavilon Skin Barrier to both heels. Cover each heel with Optifoam drsg. Change every 7 days and prn. APM/CHRISSY Mattress. Reposition at least every 2hours or as tolerated. Off-load heels with pillow (2) Liver cirrhosis Assessment & Plan: DAILY ESTIMATED NEEDS: Needs based on Cirrhosis, Critical care, sepsis/ 58kg adj 22-30 kcals/kg 8879-9825 total kcals 1.2-2 g protein/kg 70-116 g total protein 20-25 mL/kg 7802-8955 total fluid mLs NUTRITION DIAGNOSIS: * Swallowing difficulty R/T respiratory status as evidenced by pt orally intubated, NPO at this time * Altered nutrition related lab values R/T cirrhosis, sepsis, clinical condition as evidenced by elev T bili (5.5), elev NH3 (152), elev LA (6.7), elev creat (2.4). CURRENT TF:NPO PO DIET RECOMMENDATIONS: [employer] eval post extubation -> LOW NA ENTERAL NUTRITION RECOMMENDATIONS: Glucerna 1.2 @ 55ml/hr x 24 hrs to provide 1320ml, 1584kcal, 79g prot, 1063ml free water * Rec Glucerna 1.2 to maintain good BG control: h/o DM * As medically appropriate, initiate Glucerna 1.2 @ 25ml/hr x 6 hrs * Advance 10ml q 4-6 hrs as tolerated to goal rate. * HOB over 30 degrees/ water flush per MD. ADDITIONAL RECOMMENDATIONS: * Calibrated bedscale wt for accurate CBW * W/ TF, monitor need for NISS: h/o DM * F/up w/ wound eval: add Miquel 1pkt BID + VIt C 250mg QD * Monitor lytes, replete as needed . (3) Acute on chronic alcoholic liver disease (4) Sepsis Assessment & Plan: Restore insufficiency, leukocytosis, anemia, lactic acidosis , liver insufficiency, sepsis Right line removed and pressure held until hemostasis obtained. Currently no significant hematoma or post injury comp occasion identified. Site clean dry. Left line in place and stable. Will recommend PICC line so femoral line can be removed and more definitive long -term access can be obtained given patient's current medical condition and likelihood for prolonged hospitalization stay US noted and okay paracentesis PICC Continue IV antibiotics We will monitor and follow with recommendations Ultrasound ordered Efrain Whitaker May 19, 2019 18:09
--- NOTE | 2019-05-19 19:00 | NUR ---
HAND-OFF: Report given to Chetan LARSEN. VS stable. Endorsed plan of care, including still waiting for response from pt's son for blood transfusion-consent.
--- NOTE | 2019-05-19 19:06 | NUR ---
NURSE NOTES: Received report from CHAVA Almeida. Patient is lethargic. ETT 7.5/21cm, Vent setting AC 18, VT 450, Peep 5 and FiO2 35%. OGT intact and running with glucerna 1.2 10ml/hr, goal is 60ml/hr. Draper intact and draining by gravity with orange color urine. Left upper arm PICC line intact and clean, awaiting for order that okay to use picc line. Left femoral TLC intact, clean and running with D51/2NS 50ml/hr. kept dry, clean, comfort and HOB>30. Call light placed in easy reach. Will continue plan of care.
[2019-05-19] MEDS: Dyna-Hex 2% Top Sol 2oz TOPIC SCH (20:09)
[2019-05-19] MEDS: Cefepime HCl 1 GM in D5W 55 ML IVPB SCH (20:10)
--- NOTE | 2019-05-19 20:20 | NUR ---
NURSE NOTES: Drawn blood and sent to the lab.
--- NOTE | 2019-05-19 20:28 | NUR ---
RESPIRATORY NOTE: ETT tube pulled out half inch
[2019-05-19 20:40] LABS: HEMATOCRIT 20.2 % (37.0-47.0); MEAN CORPUSCULAR VOLUME 89 FL (80-99); PLATELET COUNT 55 K/UL (150-450); RED BLOOD COUNT 2.27 M/UL (4.20-5.40); RED CELL DISTRIBUTION WIDTH 22.1 % (11.6-14.8); WHITE BLOOD COUNT 6.3 K/UL (4.8-10.8)
[2019-05-19 21:17] LABS: HEMOGLOBIN 6.4 G/DL (12.0-16.0)
[2019-05-19 21:21] LABS: BASOPHILS % (AUTO) 0.1 % (0.0-2.0); EOSINOPHILS % (AUTO) 1.7 % (0.0-3.0); LYMPHOCYTES % (AUTO) 15.9 % (20.0-45.0); MONOCYTES % (AUTO) 10.3 % (1.0-10.0); NEUTROPHILS % (AUTO) 71.3 % (45.0-75.0)
--- NOTE | 2019-05-19 21:21 | NUR ---
NURSE NOTES: Received order from dr. Whitaker that okay to use picc line. He said he will remove left femoral TLC tomorrow. Will continue plan of care.
--- NOTE | 2019-05-19 21:24 | NUR ---
NURSE NOTES: Called Mijares, Matteo/son and left message for blood transfusion consent. Will follow up.
--- NOTE | 2019-05-19 21:31 | Diagnostic Imaging Report ---
Indication: Dyspnea Comparison: 05/19/2019 A single view chest radiograph was obtained. Findings: Endotracheal tube is about 2 cm above the marianne in good position. NG tube and PICC line are stable. Lung volumes are low. There is mild right platelike atelectasis near the diaphragm. Heart is borderline enlarged. IMPRESSION: Endotracheal tube in good position. No significant change otherwise.
--- NOTE | 2019-05-19 22:10 | NUR ---
NURSE NOTES: Verified pRBC with another RN. Started blood transfusion. VSS. Will continue plan of care.
--- NOTE | 2019-05-19 22:25 | NUR ---
NURSE NOTES: No adverse reaction noted. Blood transfusion rate is increased from 75ml/hr to 100ml/hr. Vital sings stable. Will continue plan of care.
--- NOTE | 2019-05-19 22:55 | NUR ---
NURSE NOTES: No blood transfusion adverse reaction noted. Increased rate to 125ml/hr. Will continue plan of care.
[2019-05-20] VITALS (24 sets, daily range): BP systolic 93–118; BP diastolic 34–68
--- NOTE | 2019-05-20 00:41 | NUR ---
NURSE NOTES: Completed blood transfusion. No adverse reaction noted. No s/sx of bleeding noted. Vital signs stable. Will continue plan of care.
--- NOTE | 2019-05-20 01:57 | NUR ---
NURSE NOTES: Bed bath given and rectal tube inserted, draining with brown liquid stool. Will continue plan of care.
--- NOTE | 2019-05-20 04:00 | NUR ---
NURSE NOTES: Bed bath given. No change in condition.
--- NOTE | 2019-05-20 04:20 | NUR ---
NURSE NOTES: Blood sample collected from PICC line. Sent to the lab.
[2019-05-20 05:04] LABS: HEMATOCRIT 24.8 % (37.0-47.0); HEMOGLOBIN 7.8 G/DL (12.0-16.0); MEAN CORPUSCULAR VOLUME 88 FL (80-99); PLATELET COUNT 63 K/UL (150-450); RED BLOOD COUNT 2.82 M/UL (4.20-5.40); RED CELL DISTRIBUTION WIDTH 22.3 % (11.6-14.8)
[2019-05-20 05:23] LABS: INR 1.8 (0.9-1.1)
[2019-05-20 05:49] LABS: ALANINE AMINOTRANSFERASE 13 U/L (12-78); ALBUMIN/GLOBULIN RATIO 0.3 (1.0-2.7); ALKALINE PHOSPHATASE 194 U/L (46-116); ANION GAP 11 mmol/L (5-15); ASPARTATE AMINO TRANSFERASE 27 U/L (15-37); BILIRUBIN,TOTAL 7.5 MG/DL (0.2-1.0); BLOOD UREA NITROGEN 32 mg/dL (7-18); CALCIUM 7.6 MG/DL (8.5-10.1); CARBON DIOXIDE 20 MMOL/L (21-32); CHLORIDE 108 MMOL/L (98-107); CREATININE 2.1 MG/DL (0.55-1.30); POTASSIUM 3.3 MMOL/L (3.5-5.1); SODIUM 138 MMOL/L (136-145)
[2019-05-20 05:55] LABS: PHOSPHORUS 4.1 MG/DL (2.5-4.9)
[2019-05-20 06:29] LABS: BILIRUBIN,DIRECT 5.4 MG/DL (0.0-0.3)
--- NOTE | 2019-05-20 06:30 | NUR ---
RESPIRATORY NOTE: Received pt on AC 18-450ml-35%FiO2- peep 5, pt is intubated with ETT 7.5 @19cm lips line, secured with anchor fast. Pt is sleeping, unable to follow commands, respond to stimuli. No SOB or resp distress noted. Kumar diminished breath sounds heard upon auscultation, suctioned minimal amounts of thick dalton secretions without incidents. Alarms are set and audible, vent is plugged into the red outlet, ambu bag is at bedside. Will weaning pt in the next vent check. Will continue to monitor pt.
--- NOTE | 2019-05-20 07:15 | NUR ---
HAND-OFF: Report given to CHAVA Chapman. Endorsed plan of care.
--- NOTE | 2019-05-20 07:16 | NUR ---
NURSE NOTES: PT and report received from CHAVA Benton. PT received sleeping, no signs of respiratory distress, VS stable, ETT 7.5, position in middle @ 19cm; AC 18, TV 450, 35%, peep 5. PT OGT running Glucerna 1.2 goal of 60cc; currently held for morning US upon receiving. PT has RICK PICC running D5 1/2NS @ 50cc and L-fem TLC. L-fem TLC planned for removal per MD Julianne. Plan for PT is US abdomen this morning, lactic acid draw @ 10am. Will continue to monitor PT and follow through with plan of care.
--- NOTE | 2019-05-20 07:44 | NUR ---
NURSE NOTES: PT received with R-nasal trumpet. RT [place] nasal suctioned PT, tolerated well, thick brown bloody secretion noted. PT placed back on venturi @ 35%, 6L. No respiratory distress, VS stable. Will continue to monitor PT. Addendum: 05/20/19 at 0748 by Ari Barth RN NURSE NOTES: Disregard this note. Wrong PT note input.
--- NOTE | 2019-05-20 07:55 | NUR ---
RESPIRATORY NOTE: Place pt on CPAP PS 8- peep 5- 35%FiO2 per Dr. Khan's order. Pt is tolerating well, no SOB or resp distress. RSBI 44, NIF 34, normal vital signs. RN Ari made aware. ABG in 1 hour. Will continue to monitor.
--- NOTE | 2019-05-20 07:57 | NUR ---
NURSE NOTES: Weaning trial for PT passed. PT is on CPAP w/ pressure support of 8. VS stable, no respiratory distress noted. Will continue to monitor PT.
[2019-05-20] MEDS ORDERED: Vancomycin 1.25gm/NS Premix IVPB ONE (08:00)
[2019-05-20] MEDS: Pantoprazole Inj IVP SCH ×2 (08:39→21:45)
[2019-05-20] MEDS: Lactulose 20gm/30ml UDC NG SCH ×3 (08:39→18:16)
--- NOTE | 2019-05-20 09:31 | Nephrology Progress Note ---
Assessment/Plan Problem List: (1) ATN (acute tubular necrosis) (2) Sepsis (3) Acute respiratory failure (4) Acute on chronic alcoholic liver disease Assessment: worsening bili (5) Anemia Assessment Renal failure- Acute On May 09, 2019 normal renal parameters Severe Anemia, Acute on chronic- Acute part from right groin attempted line insertion Severe HypoAlbuminemia, Cirrhosis, ALD, Ascites Sepsis- High lactic Acid Acute respiratory failure Previous gram negative bacteremia / Sepsis Plan Hydrate- K supplement Antibiotics Monitor renal parameters avoid nephrotoxics transfuse as needed- one unit today per orders discussed with RN Subjective ROS Limited/Unobtainable: Yes Objective Objective Last 24 Hour Vital Signs Date Time Temp Pulse Resp B/P (MAP) Pulse Ox O2 Delivery O2 Flow Rate FiO2 05/20/19 08:00 Mechanical Ventilator 05/20/19 08:00 97.9 88 19 112/61 (78) 100 05/20/19 08:00 35 05/20/19 07:57 92 25 35 35 05/20/19 07:50 100 05/20/19 07:00 92 19 111/58 (75) 100 05/20/19 06:30 87 18 35 05/20/19 06:00 86 19 112/57 (75) 100 05/20/19 05:00 90 21 100/59 (73) 100 05/20/19 04:44 91 20 35 05/20/19 04:00 Mechanical Ventilator 05/20/19 04:00 35 05/20/19 04:00 98.0 90 20 104/56 (72) 100 05/20/19 04:00 88 05/20/19 03:00 92 19 111/58 (75) 100 05/20/19 02:32 88 18 35 05/20/19 02:00 85 18 115/58 (77) 100 05/20/19 01:16 81 18 35 05/20/19 01:00 92 22 106/62 (77) 100 05/20/19 00:00 97.7 84 18 104/54 (71) 100 05/20/19 00:00 Mechanical Ventilator 05/20/19 00:00 85 05/20/19 00:00 35 05/19/19 23:09 84 18 35 05/19/19 23:00 85 18 103/51 (68) 100 05/19/19 22:00 98.0 86 18 104/50 (68) 100 05/19/19 21:00 88 19 105/52 (69) 100 05/19/19 21:00 86 18 35 05/19/19 20:00 35 05/19/19 20:00 Mechanical Ventilator 05/19/19 20:00 98.2 86 18 107/54 (71) 100 05/19/19 20:00 83 05/19/19 19:10 85 18 35 05/19/19 19:00 85 18 99/44 (62) 100 05/19/19 18:00 85 18 98/46 (63) 100 05/19/19 17:12 82 20 50 05/19/19 17:00 98.2 86 18 103/46 (65) 95 05/19/19 16:00 83 05/19/19 16:00 Mechanical Ventilator 05/19/19 16:00 35 05/19/19 16:00 83 18 89/65 (73) 100 05/19/19 15:26 90 23 50 05/19/19 15:00 87 18 95/51 (66) 100 05/19/19 14:00 87 18 96/59 (71) 100 05/19/19 13:00 88 17 99/64 (76) 100 05/19/19 12:50 89 18 50 05/19/19 12:00 Mechanical Ventilator 05/19/19 12:00 87 05/19/19 12:00 35 05/19/19 12:00 98.4 88 18 100/58 (72) 99 05/19/19 11:25 101 18 50 05/19/19 11:00 87 18 97/58 (71) 100 05/19/19 10:00 87 15 94/49 (64) 100 05/19/19 09:45 99.1 Intake and Output 05/19/19 05/20/19 19:00 07:00 Intake Total 780 ml 1025 ml Output Total 4735 ml 360 ml Balance -3955 ml 665 ml IV Total 750 ml 855 ml Tube Feeding 30 ml 170 ml Output Urine Total 235 ml 360 ml Other 4500 ml # Bowel Movements 3 1 Laboratory Tests 05/19/19 12:55: Lactic Acid Level 3.90H 05/19/19 20:00: Lactic Acid Level 3.60H, White Blood Count 6.3#, Red Blood Count 2.27L, Hemoglobin 6.4*L, Hematocrit 20.2L, Mean Corpuscular Volume 89, Mean Corpuscular Hemoglobin 28.2, Mean Corpuscular Hemoglobin Concent 31.7L, Red Cell Distribution Width 22.1H, Platelet Count 55L, Mean Platelet Volume 8.0, Neutrophils (%) (Auto) 71.3, Lymphocytes (%) (Auto) 15.9L, Monocytes (%) (Auto) 10.3H, Eosinophils (%) (Auto) 1.7, Basophils (%) (Auto) 0.1 05/20/19 04:00: Lactic Acid Level 2.80H, White Blood Count 8.0, Red Blood Count 2.82L, Hemoglobin 7.8L, Hematocrit 24.8L, Mean Corpuscular Volume 88, Mean Corpuscular Hemoglobin 27.7, Mean Corpuscular Hemoglobin Concent 31.6L, Red Cell Distribution Width 22.3H, Platelet Count 63L, Mean Platelet Volume 6.4L, Neutrophils (%) (Auto) , Lymphocytes (%) (Auto) , Monocytes (%) (Auto) , Eosinophils (%) (Auto) , Basophils (%) (Auto) , Differential Total Cells Counted 100, Neutrophils % (Manual) 71, Lymphocytes % (Manual) 15L, Monocytes % (Manual) 11H, Eosinophils % (Manual) 3, Basophils % (Manual) 0, Band Neutrophils 0, Platelet Estimate DecreasedL, Platelet Morphology Normal, Polychromasia 2+, Hypochromasia 1+, Anisocytosis 2+, Prothrombin Time 18.2H, Prothromb Time International Ratio 1.8H, Sodium Level 138, Potassium Level 3.3L , Chloride Level 108H, Carbon Dioxide Level 20L, Anion Gap 11, Blood Urea Nitrogen 32H, Creatinine 2.1H, Estimat Glomerular Filtration Rate 24.3, Glucose Level 152H, Calcium Level 7.6L, Phosphorus Level 4.1, Magnesium Level 1.9, Total Bilirubin 7.5H, Direct Bilirubin 5.4H, Aspartate Amino Transf (AST/SGOT) 27, Alanine Aminotransferase (ALT/SGPT) 13, Alkaline Phosphatase 194H, Ammonia 33H, Total Protein 4.6L, Albumin 1.0L, Globulin 3.6, Albumin/Globulin Ratio 0.3L , Alpha Fetoprotein [Pending], Random Vancomycin Level 14.1 05/20/19 08:53: Arterial Blood pH 7.422, Arterial Blood Partial Pressure CO2 25.1L, Arterial Blood Partial Pressure O2 99.8, Arterial Blood HCO3 16.0*L, Arterial Blood Oxygen Saturation 97.0, Arterial Blood Base Excess -7.4L, Saravanan Test Positive Height (Feet): 5 Height (Inches): 0.00 Weight (Pounds): 177 General Appearance: no apparent distress EENT: other - on vent Cardiovascular: tachycardia Respiratory/Chest: decreased breath sounds Abdomen: distended Objective no change Jovany Byers MD May 20, 2019 09:31
--- NOTE | 2019-05-20 09:38 | NUR ---
NURSE NOTES: Post 1hr wean ABG results reported to MD Erin. US tech at bedside currently. PT VS stable, no respiratory distress noted. Will continue to monitor PT.
--- NOTE | 2019-05-20 09:50 | NUR ---
NURSE NOTES: MD Julianne made rounds, removed PT L-fem TLC. Will monitor for s/s of bleeding from removal site.
--- NOTE | 2019-05-20 09:52 | General Progress Note ---
Assessment/Plan Problem List: (1) Liver cirrhosis ICD Codes: K74.60 - Unspecified cirrhosis of liver SNOMED: 96507926 (2) Sepsis ICD Codes: A41.9 - Sepsis, unspecified organism SNOMED: 64369274 Qualifiers: Qualified Codes: A41.9 - Sepsis, unspecified organism (3) Anasarca ICD Codes: R60.1 - Generalized edema SNOMED: 608753089, 748471606 (4) Ascites ICD Codes: R18.8 - Other ascites SNOMED: 981329044 (5) Anemia ICD Codes: D64.9 - Anemia, unspecified SNOMED: 058821103 (6) Hepatic encephalopathy ICD Codes: K72.90 - Hepatic failure, unspecified without coma SNOMED: 00720479 (7) Acute respiratory failure ICD Codes: J96.00 - Acute respiratory failure, unspecified whether with hypoxia or hypercapnia SNOMED: 75941462 (8) ETOH abuse ICD Codes: F10.10 - Alcohol abuse, uncomplicated SNOMED: 93158919 Assessment/Plan: decrease lactulose to 15 cc cont Xifaxan neg stool ob fu H&H and transfuse prn ppi fu abd us NGTf post abd us Subjective ROS Limited/Unobtainable: No Allergies: Coded Allergies: No Known Allergies (Unverified , 01/31/19) Objective Last 24 Hour Vital Signs Date Time Temp Pulse Resp B/P (MAP) Pulse Ox O2 Delivery O2 Flow Rate FiO2 05/20/19 09:00 88 19 100/54 (69) 100 05/20/19 09:00 84 19 35 05/20/19 08:00 Mechanical Ventilator 05/20/19 08:00 97.9 88 19 112/61 (78) 100 05/20/19 08:00 35 05/20/19 07:57 92 25 35 35 05/20/19 07:50 100 05/20/19 07:00 92 19 111/58 (75) 100 05/20/19 06:30 87 18 35 05/20/19 06:00 86 19 112/57 (75) 100 05/20/19 05:00 90 21 100/59 (73) 100 05/20/19 04:44 91 20 35 05/20/19 04:00 Mechanical Ventilator 05/20/19 04:00 35 05/20/19 04:00 98.0 90 20 104/56 (72) 100 05/20/19 04:00 88 05/20/19 03:00 92 19 111/58 (75) 100 05/20/19 02:32 88 18 35 05/20/19 02:00 85 18 115/58 (77) 100 05/20/19 01:16 81 18 35 05/20/19 01:00 92 22 106/62 (77) 100 05/20/19 00:00 97.7 84 18 104/54 (71) 100 05/20/19 00:00 Mechanical Ventilator 05/20/19 00:00 85 05/20/19 00:00 35 05/19/19 23:09 84 18 35 05/19/19 23:00 85 18 103/51 (68) 100 05/19/19 22:00 98.0 86 18 104/50 (68) 100 05/19/19 21:00 88 19 105/52 (69) 100 05/19/19 21:00 86 18 35 05/19/19 20:00 35 05/19/19 20:00 Mechanical Ventilator 05/19/19 20:00 98.2 86 18 107/54 (71) 100 05/19/19 20:00 83 05/19/19 19:10 85 18 35 05/19/19 19:00 85 18 99/44 (62) 100 05/19/19 18:00 85 18 98/46 (63) 100 05/19/19 17:12 82 20 50 05/19/19 17:00 98.2 86 18 103/46 (65) 95 05/19/19 16:00 83 05/19/19 16:00 Mechanical Ventilator 05/19/19 16:00 35 05/19/19 16:00 83 18 89/65 (73) 100 05/19/19 15:26 90 23 50 05/19/19 15:00 87 18 95/51 (66) 100 05/19/19 14:00 87 18 96/59 (71) 100 05/19/19 13:00 88 17 99/64 (76) 100 05/19/19 12:50 89 18 50 05/19/19 12:00 Mechanical Ventilator 05/19/19 12:00 87 05/19/19 12:00 35 05/19/19 12:00 98.4 88 18 100/58 (72) 99 05/19/19 11:25 101 18 50 05/19/19 11:00 87 18 97/58 (71) 100 05/19/19 10:00 87 15 94/49 (64) 100 Intake and Output 05/19/19 05/20/19 19:00 07:00 Intake Total 780 ml 1025 ml Output Total 4735 ml 360 ml Balance -3955 ml 665 ml IV Total 750 ml 855 ml Tube Feeding 30 ml 170 ml Output Urine Total 235 ml 360 ml Other 4500 ml # Bowel Movements 3 1 Laboratory Tests 05/19/19 12:55: Lactic Acid Level 3.90H 05/19/19 20:00: Lactic Acid Level 3.60H, White Blood Count 6.3#, Red Blood Count 2.27L, Hemoglobin 6.4*L, Hematocrit 20.2L, Mean Corpuscular Volume 89, Mean Corpuscular Hemoglobin 28.2, Mean Corpuscular Hemoglobin Concent 31.7L, Red Cell Distribution Width 22.1H, Platelet Count 55L, Mean Platelet Volume 8.0, Neutrophils (%) (Auto) 71.3, Lymphocytes (%) (Auto) 15.9L, Monocytes (%) (Auto) 10.3H, Eosinophils (%) (Auto) 1.7, Basophils (%) (Auto) 0.1 05/20/19 04:00: Lactic Acid Level 2.80H, White Blood Count 8.0, Red Blood Count 2.82L, Hemoglobin 7.8L, Hematocrit 24.8L, Mean Corpuscular Volume 88, Mean Corpuscular Hemoglobin 27.7, Mean Corpuscular Hemoglobin Concent 31.6L, Red Cell Distribution Width 22.3H, Platelet Count 63L, Mean Platelet Volume 6.4L, Neutrophils (%) (Auto) , Lymphocytes (%) (Auto) , Monocytes (%) (Auto) , Eosinophils (%) (Auto) , Basophils (%) (Auto) , Differential Total Cells Counted 100, Neutrophils % (Manual) 71, Lymphocytes % (Manual) 15L, Monocytes % (Manual) 11H, Eosinophils % (Manual) 3, Basophils % (Manual) 0, Band Neutrophils 0, Platelet Estimate DecreasedL, Platelet Morphology Normal, Polychromasia 2+, Hypochromasia 1+, Anisocytosis 2+, Prothrombin Time 18.2H, Prothromb Time International Ratio 1.8H, Sodium Level 138, Potassium Level 3.3L , Chloride Level 108H, Carbon Dioxide Level 20L, Anion Gap 11, Blood Urea Nitrogen 32H, Creatinine 2.1H, Estimat Glomerular Filtration Rate 24.3, Glucose Level 152H, Calcium Level 7.6L, Phosphorus Level 4.1, Magnesium Level 1.9, Total Bilirubin 7.5H, Direct Bilirubin 5.4H, Aspartate Amino Transf (AST/SGOT) 27, Alanine Aminotransferase (ALT/SGPT) 13, Alkaline Phosphatase 194H, Ammonia 33H, Total Protein 4.6L, Albumin 1.0L, Globulin 3.6, Albumin/Globulin Ratio 0.3L , Alpha Fetoprotein [Pending], Random Vancomycin Level 14.1 05/20/19 08:53: Arterial Blood pH 7.422, Arterial Blood Partial Pressure CO2 25.1L, Arterial Blood Partial Pressure O2 99.8, Arterial Blood HCO3 16.0*L, Arterial Blood Oxygen Saturation 97.0, Arterial Blood Base Excess -7.4L, Saravanan Test Positive Height (Feet): 5 Height (Inches): 0.00 Weight (Pounds): 177 General Appearance: lethargic EENT: normal ENT inspection Neck: supple Cardiovascular: normal rate Respiratory/Chest: decreased breath sounds Abdomen: normal bowel sounds, non tender, soft Extremities: non-tender Jon Torres MD May 20, 2019 09:52
--- NOTE | 2019-05-20 10:25 | Diagnostic Imaging Report ---
Indication: Abdominal pain Technique: Grayscale and duplex Doppler imaging of the abdomen performed. Comparison: None Findings: The liver is nodular heterogeneous consistent with cirrhosis. There is moderate ascites. There is thickening of the gallbladder wall. CBD is normal measuring 3 mm. The main portal vein is patent but shows abnormal pulsatile hepatopedal and hepatofugal flow. Spleen is enlarged measuring 16 cm. The pancreas and aorta are obscured and not visualized. The kidneys are normal in size IMPRESSION: Liver disease/cirrhosis with signs of portal hypertension including moderate ascites, abnormal portal venous waveform and splenomegaly. Largely obscured retroperitoneal structures due to bowel gas.
[2019-05-20] MEDS: D5 1/2NS 1,000 ML IV SCH (10:45)
--- NOTE | 2019-05-20 10:54 | Surgery Progress Note ---
Surgery Progress Note Subjective Additional Comments lactic acidosis improving lfts noted jaundice exam unchanged abd us today picc left groin c line removed Objective Last 24 Hour Vital Signs Date Time Temp Pulse Resp B/P (MAP) Pulse Ox O2 Delivery O2 Flow Rate FiO2 05/20/19 10:00 90 20 102/54 (70) 100 05/20/19 09:00 88 19 100/54 (69) 100 05/20/19 09:00 84 19 35 05/20/19 08:00 Mechanical Ventilator 05/20/19 08:00 97.9 88 19 112/61 (78) 100 05/20/19 08:00 35 05/20/19 07:57 92 25 35 35 05/20/19 07:50 100 05/20/19 07:00 92 19 111/58 (75) 100 05/20/19 06:30 87 18 35 05/20/19 06:00 86 19 112/57 (75) 100 05/20/19 05:00 90 21 100/59 (73) 100 05/20/19 04:44 91 20 35 05/20/19 04:00 Mechanical Ventilator 05/20/19 04:00 35 05/20/19 04:00 98.0 90 20 104/56 (72) 100 05/20/19 04:00 88 05/20/19 03:00 92 19 111/58 (75) 100 05/20/19 02:32 88 18 35 05/20/19 02:00 85 18 115/58 (77) 100 05/20/19 01:16 81 18 35 05/20/19 01:00 92 22 106/62 (77) 100 05/20/19 00:00 97.7 84 18 104/54 (71) 100 05/20/19 00:00 Mechanical Ventilator 05/20/19 00:00 85 05/20/19 00:00 35 05/19/19 23:09 84 18 35 05/19/19 23:00 85 18 103/51 (68) 100 05/19/19 22:00 98.0 86 18 104/50 (68) 100 05/19/19 21:00 88 19 105/52 (69) 100 05/19/19 21:00 86 18 35 05/19/19 20:00 35 05/19/19 20:00 Mechanical Ventilator 05/19/19 20:00 98.2 86 18 107/54 (71) 100 05/19/19 20:00 83 05/19/19 19:10 85 18 35 05/19/19 19:00 85 18 99/44 (62) 100 05/19/19 18:00 85 18 98/46 (63) 100 05/19/19 17:12 82 20 50 05/19/19 17:00 98.2 86 18 103/46 (65) 95 05/19/19 16:00 83 05/19/19 16:00 Mechanical Ventilator 05/19/19 16:00 35 05/19/19 16:00 83 18 89/65 (73) 100 05/19/19 15:26 90 23 50 05/19/19 15:00 87 18 95/51 (66) 100 05/19/19 14:00 87 18 96/59 (71) 100 05/19/19 13:00 88 17 99/64 (76) 100 05/19/19 12:50 89 18 50 05/19/19 12:00 Mechanical Ventilator 05/19/19 12:00 87 05/19/19 12:00 35 05/19/19 12:00 98.4 88 18 100/58 (72) 99 05/19/19 11:25 101 18 50 05/19/19 11:00 87 18 97/58 (71) 100 I&O Intake and Output 05/19/19 05/20/19 19:00 07:00 Intake Total 780 ml 1025 ml Output Total 4735 ml 360 ml Balance -3955 ml 665 ml IV Total 750 ml 855 ml Tube Feeding 30 ml 170 ml Output Urine Total 235 ml 360 ml Other 4500 ml # Bowel Movements 3 1 Dressing: saturated Wound: other Drains: other Cardiovascular: RSR Respiratory: decreased breath sounds Abdomen: soft, present bowel sounds, non-distended Extremities: no cyanosis, other Laboratory Tests Test 05/19/19 12:55 05/19/19 20:00 05/20/19 04:00 05/20/19 08:53 Lactic Acid Level 3.90 mmol/L (0.4-2.0) H 3.60 mmol/L (0.4-2.0) H 2.80 mmol/L (0.4-2.0) H White Blood Count 6.3 K/UL (4.8-10.8) # 8.0 K/UL (4.8-10.8) Red Blood Count 2.27 M/UL (4.20-5.40) L 2.82 M/UL (4.20-5.40) L Hemoglobin 6.4 G/DL (12.0-16.0) *L 7.8 G/DL (12.0-16.0) L Hematocrit 20.2 % (37.0-47.0) L 24.8 % (37.0-47.0) L Mean Corpuscular Volume 89 FL (80-99) 88 FL (80-99) Mean Corpuscular Hemoglobin 28.2 PG (27.0-31.0) 27.7 PG (27.0-31.0) Mean Corpuscular Hemoglobin Concent 31.7 G/DL (32.0-36.0) L 31.6 G/DL (32.0-36.0) L Red Cell Distribution Width 22.1 % (11.6-14.8) H 22.3 % (11.6-14.8) H Platelet Count 55 K/UL (150-450) L 63 K/UL (150-450) L Mean Platelet Volume 8.0 FL (6.5-10.1) 6.4 FL (6.5-10.1) L Neutrophils (%) (Auto) 71.3 % (45.0-75.0) % (45.0-75.0) Lymphocytes (%) (Auto) 15.9 % (20.0-45.0) L % (20.0-45.0) Monocytes (%) (Auto) 10.3 % (1.0-10.0) H % (1.0-10.0) Eosinophils (%) (Auto) 1.7 % (0.0-3.0) % (0.0-3.0) Basophils (%) (Auto) 0.1 % (0.0-2.0) % (0.0-2.0) Differential Total Cells Counted 100 Neutrophils % (Manual) 71 % (45-75) Lymphocytes % (Manual) 15 % (20-45) L Monocytes % (Manual) 11 % (1-10) H Eosinophils % (Manual) 3 % (0-3) Basophils % (Manual) 0 % (0-2) Band Neutrophils 0 % (0-8) Platelet Estimate Decreased L Platelet Morphology Normal Polychromasia 2+ Hypochromasia 1+ Anisocytosis 2+ Prothrombin Time 18.2 SEC (9.30-11.50) H Prothromb Time International Ratio 1.8 (0.9-1.1) H Sodium Level 138 MMOL/L (136-145) Potassium Level 3.3 MMOL/L (3.5-5.1) L Chloride Level 108 MMOL/L (98-107) H Carbon Dioxide Level 20 MMOL/L (21-32) L Anion Gap 11 mmol/L (5-15) Blood Urea Nitrogen 32 mg/dL (7-18) H Creatinine 2.1 MG/DL (0.55-1.30) H Estimat Glomerular Filtration Rate 24.3 mL/min (>60) Glucose Level 152 MG/DL (74-106) H Calcium Level 7.6 MG/DL (8.5-10.1) L Phosphorus Level 4.1 MG/DL (2.5-4.9) Magnesium Level 1.9 MG/DL (1.8-2.4) Total Bilirubin 7.5 MG/DL (0.2-1.0) H Direct Bilirubin 5.4 MG/DL (0.0-0.3) H Aspartate Amino Transf (AST/SGOT) 27 U/L (15-37) Alanine Aminotransferase (ALT/SGPT) 13 U/L (12-78) Alkaline Phosphatase 194 U/L (46-116) H Ammonia 33 umol/L (11-32) H Total Protein 4.6 G/DL (6.4-8.2) L Albumin 1.0 G/DL (3.4-5.0) L Globulin 3.6 g/dL Albumin/Globulin Ratio 0.3 (1.0-2.7) L Alpha Fetoprotein Pending Random Vancomycin Level 14.1 ug/mL Arterial Blood pH 7.422 (7.350-7.450) Arterial Blood Partial Pressure CO2 25.1 mmHg (35.0-45.0) L Arterial Blood Partial Pressure O2 99.8 mmHg (75.0-100.0) Arterial Blood HCO3 16.0 mmol/L (22.0-26.0) *L Arterial Blood Oxygen Saturation 97.0 % (95-100) Arterial Blood Base Excess -7.4 (-2-2) L Saravanan Test Positive Plan Problems: (1) Sacral decubitus ulcer Assessment & Plan: Pt presented on admission with icteric sclerae and skin. Moisture intertrigo Madhu/left abd folds.(1.5cm long). Moisture intertrigo R groin(8.5cm) slit noted with small amt bleeding. Mons pubis,labia majora and medial aspects of both upper thigh erythematous . Partial thickness wound noted to L thoracic. Base of wound is moist and viable. Edges flat and adherent to base of wound.No exudate noted. (L) 0.6cm x (W)0.8cm. Non-blanchable erythema sacrum,R and L buttocks with scattered shearing .Full thickness pressure injury noted to sacrococcygeal area. Base of wound is steve with small amt slough noted in center.(L) 0.7cm x (W)0.3cm. Area around wound is erythematous non-blanchable with shearing . Full thickness pressure injury R buttocks . Base of wound is moist, with Slough in center.Surrounding area erythematous and denuded. Evolving serous blister L heel.Base of wound is fluctuant with delineated,red margins.(L)3.5cm x (W)5.5cm. Periwound without erythema or fluctuance. R heel firm and blanchable. Tx.Plan: Apply Triad Paste to Sacrum and R buttocks. Cover wounds with Optifoam drsg. Change every 3 days and PRN. Apply Triad Paste to abd folds, R groin,Mons pubis, medial aspects of both upper thighs with each perineal care. Apply Optifoam drsg L thoracic wound. Cover with Optifoam drsg. Change every 3 days and prn. Apply Cavilon Skin Barrier to both heels. Cover each heel with Optifoam drsg. Change every 7 days and prn. APM/CHRISSY Mattress. Reposition at least every 2hours or as tolerated. Off-load heels with pillow (2) Liver cirrhosis Assessment & Plan: DAILY ESTIMATED NEEDS: Needs based on Cirrhosis, Critical care, sepsis/ 58kg adj 22-30 kcals/kg 6522-7757 total kcals 1.2-2 g protein/kg 70-116 g total protein 20-25 mL/kg 8439-1620 total fluid mLs NUTRITION DIAGNOSIS: * Swallowing difficulty R/T respiratory status as evidenced by pt orally intubated, NPO at this time * Altered nutrition related lab values R/T cirrhosis, sepsis, clinical condition as evidenced by elev T bili (5.5), elev NH3 (152), elev LA (6.7), elev creat (2.4). CURRENT TF:NPO PO DIET RECOMMENDATIONS: POSTAL CARRIER eval post extubation -> LOW NA ENTERAL NUTRITION RECOMMENDATIONS: Glucerna 1.2 @ 55ml/hr x 24 hrs to provide 1320ml, 1584kcal, 79g prot, 1063ml free water * Rec Glucerna 1.2 to maintain good BG control: h/o DM * As medically appropriate, initiate Glucerna 1.2 @ 25ml/hr x 6 hrs * Advance 10ml q 4-6 hrs as tolerated to goal rate. * HOB over 30 degrees/ water flush per MD. ADDITIONAL RECOMMENDATIONS: * Calibrated bedscale wt for accurate CBW * W/ TF, monitor need for NISS: h/o DM * F/up w/ wound eval: add Miquel 1pkt BID + VIt C 250mg QD * Monitor lytes, replete as needed . (3) Acute on chronic alcoholic liver disease (4) Sepsis Assessment & Plan: Restore insufficiency, leukocytosis, anemia, lactic acidosis , liver insufficiency, sepsis Right line removed and pressure held until hemostasis obtained. Currently no significant hematoma or post injury comp occasion identified. Site clean dry. Left line in place and stable. Will recommend PICC line so femoral line can be removed and more definitive long -term access can be obtained given patient's current medical condition and likelihood for prolonged hospitalization stay US noted and okay paracentesis PICC Continue IV antibiotics We will monitor and follow with recommendations Ultrasound ordered Efrain Whitaker May 20, 2019 10:54
--- NOTE | 2019-05-20 10:55 | Operative Note - PDOC ---
Operative Note Operative Note Date of Operation/Procedure: May 20, 2019 Pre-op Diagnosis: left femoral central venous catheter removal Procedure: sepsis Post-op Diagnosis: same as pre-op Surgeon: duran whitaker Anesthesia: other Specimen: none Complications: none Condition: stable Estimated Blood Loss: none Implant(s) used?: No Indications for Procedure 57F sepsis emergency left femoral central line placed. picc now. central line needs to be removed. Description of Procedure Patient made comfortable at the bedside. Dressings removed. Left thumb site cleaned. Sutures removed. Left femoral central venous catheter removed. Pressure held for 10 minutes until hemostasis noted. Dressings applied. Patient tolerated well. Duran Whitaker May 20, 2019 10:55
--- NOTE | 2019-05-20 11:00 | NUR ---
NURSE NOTES: PT rectal tube leaking so PT was wiped, cleaned, dry, linens changed, repositioned. VS stable, no S/S of respiratory distress on CPAP. Will continue to monitor PT.
--- NOTE | 2019-05-20 11:15 | Pulmonolgy Critical Care Note ---
Critical Care - Asmt/Plan Problems: (1) Acute respiratory failure (2) Acute metabolic encephalopathy (3) Sepsis (4) Anasarca (5) Hepatic encephalopathy (6) Coagulopathy (7) Thrombocytopenia (8) Liver cirrhosis Respiratory: monitor respiratory rate, adjust FIO2, CXR Cardiac: continue to monitor HR/BP Renal: F/U I&O, decrease IV fluid Infectious Disease: check cultures, continue antibiotics Endocrine: monitor blood sugar, continue sliding scale insulin Hematologic: transfuse if hgb<8.5 Neurologic: PRN Ativan, PRN Morphine, keep patient comfortable Affect: PRN ativan Prophylaxis: Protonix, SCDs Notes Reviewed: dispatcher electric power Discussed with: nurses, consultants, machine adjuster leader case trimpmp certified project manager - Objective Last 24 Hour Vital Signs Date Time Temp Pulse Resp B/P (MAP) Pulse Ox O2 Delivery O2 Flow Rate FiO2 05/20/19 10:42 92 20 35 05/20/19 10:00 90 20 102/54 (70) 100 05/20/19 09:00 88 19 100/54 (69) 100 05/20/19 09:00 84 19 35 05/20/19 08:00 Mechanical Ventilator 05/20/19 08:00 97.9 88 19 112/61 (78) 100 05/20/19 08:00 35 05/20/19 07:57 92 25 35 35 05/20/19 07:50 100 05/20/19 07:00 92 19 111/58 (75) 100 05/20/19 06:30 87 18 35 05/20/19 06:00 86 19 112/57 (75) 100 05/20/19 05:00 90 21 100/59 (73) 100 05/20/19 04:44 91 20 35 05/20/19 04:00 Mechanical Ventilator 05/20/19 04:00 35 05/20/19 04:00 98.0 90 20 104/56 (72) 100 05/20/19 04:00 88 05/20/19 03:00 92 19 111/58 (75) 100 05/20/19 02:32 88 18 35 05/20/19 02:00 85 18 115/58 (77) 100 05/20/19 01:16 81 18 35 05/20/19 01:00 92 22 106/62 (77) 100 05/20/19 00:00 97.7 84 18 104/54 (71) 100 05/20/19 00:00 Mechanical Ventilator 05/20/19 00:00 85 05/20/19 00:00 35 05/19/19 23:09 84 18 35 05/19/19 23:00 85 18 103/51 (68) 100 05/19/19 22:00 98.0 86 18 104/50 (68) 100 05/19/19 21:00 88 19 105/52 (69) 100 05/19/19 21:00 86 18 35 05/19/19 20:00 35 05/19/19 20:00 Mechanical Ventilator 05/19/19 20:00 98.2 86 18 107/54 (71) 100 05/19/19 20:00 83 05/19/19 19:10 85 18 35 05/19/19 19:00 85 18 99/44 (62) 100 05/19/19 18:00 85 18 98/46 (63) 100 05/19/19 17:12 82 20 50 05/19/19 17:00 98.2 86 18 103/46 (65) 95 05/19/19 16:00 83 05/19/19 16:00 Mechanical Ventilator 05/19/19 16:00 35 05/19/19 16:00 83 18 89/65 (73) 100 05/19/19 15:26 90 23 50 05/19/19 15:00 87 18 95/51 (66) 100 05/19/19 14:00 87 18 96/59 (71) 100 05/19/19 13:00 88 17 99/64 (76) 100 05/19/19 12:50 89 18 50 05/19/19 12:00 Mechanical Ventilator 05/19/19 12:00 87 05/19/19 12:00 35 05/19/19 12:00 98.4 88 18 100/58 (72) 99 05/19/19 11:25 101 18 50 HEENT: atraumatic Neck: full ROM Heart: HR/BP stable Abdomen: soft, active bowel sounds, feeding tube Extremities: edema Micro: Microbiology Date/Time Source Procedure Growth Status 05/17/19 21:20 Blood Blood Culture - Preliminary NO GROWTH AFTER 48 HOURS Resulted 05/17/19 21:20 Blood Blood Culture - Preliminary NO GROWTH AFTER 48 HOURS Resulted 05/17/19 22:55 Nasal Nares MRSA Culture - Final NO METHICILLIN RESISTANT STAPH AUREUS... Complete 05/17/19 22:40 Urine,Clean Catch Urine Culture - Preliminary Klebsiella Pneumoniae YEAST Resulted 05/17/19 22:52 Rectum - Final NO CARBAPENEM-RESISTANT ENTEROBACTERI... Complete 05/17/19 22:52 Rectum VRE Culture - Final Enterococcus Faecium - Vre Complete Critical Care - Subjective ROS Limited/Unobtainable: Yes Condition: critical EKG Rhythm: Sinus Rhythm FI02: 35 Vent Support Breath Rate: 18 Vent Support Mode: CPAP Vent Tidal Volume: 450 Sputum Amount: Scant PEEP: 5.0 PIP: 15 Tube Feeding Amount: 20 I&O: Intake and Output 05/19/19 05/20/19 19:00 07:00 Intake Total 780 ml 1025 ml Output Total 4735 ml 360 ml Balance -3955 ml 665 ml IV Total 750 ml 855 ml Tube Feeding 30 ml 170 ml Output Urine Total 235 ml 360 ml Other 4500 ml # Bowel Movements 3 1 CXR: no change ET-Tube: 7.5 ET Position: 19 Labs: Laboratory Tests Test 05/19/19 12:55 05/19/19 20:00 05/20/19 04:00 05/20/19 08:53 Lactic Acid Level 3.90 mmol/L (0.4-2.0) H 3.60 mmol/L (0.4-2.0) H 2.80 mmol/L (0.4-2.0) H White Blood Count 6.3 K/UL (4.8-10.8) # 8.0 K/UL (4.8-10.8) Red Blood Count 2.27 M/UL (4.20-5.40) L 2.82 M/UL (4.20-5.40) L Hemoglobin 6.4 G/DL (12.0-16.0) *L 7.8 G/DL (12.0-16.0) L Hematocrit 20.2 % (37.0-47.0) L 24.8 % (37.0-47.0) L Mean Corpuscular Volume 89 FL (80-99) 88 FL (80-99) Mean Corpuscular Hemoglobin 28.2 PG (27.0-31.0) 27.7 PG (27.0-31.0) Mean Corpuscular Hemoglobin Concent 31.7 G/DL (32.0-36.0) L 31.6 G/DL (32.0-36.0) L Red Cell Distribution Width 22.1 % (11.6-14.8) H 22.3 % (11.6-14.8) H Platelet Count 55 K/UL (150-450) L 63 K/UL (150-450) L Mean Platelet Volume 8.0 FL (6.5-10.1) 6.4 FL (6.5-10.1) L Neutrophils (%) (Auto) 71.3 % (45.0-75.0) % (45.0-75.0) Lymphocytes (%) (Auto) 15.9 % (20.0-45.0) L % (20.0-45.0) Monocytes (%) (Auto) 10.3 % (1.0-10.0) H % (1.0-10.0) Eosinophils (%) (Auto) 1.7 % (0.0-3.0) % (0.0-3.0) Basophils (%) (Auto) 0.1 % (0.0-2.0) % (0.0-2.0) Differential Total Cells Counted 100 Neutrophils % (Manual) 71 % (45-75) Lymphocytes % (Manual) 15 % (20-45) L Monocytes % (Manual) 11 % (1-10) H Eosinophils % (Manual) 3 % (0-3) Basophils % (Manual) 0 % (0-2) Band Neutrophils 0 % (0-8) Platelet Estimate Decreased L Platelet Morphology Normal Polychromasia 2+ Hypochromasia 1+ Anisocytosis 2+ Prothrombin Time 18.2 SEC (9.30-11.50) H Prothromb Time International Ratio 1.8 (0.9-1.1) H Sodium Level 138 MMOL/L (136-145) Potassium Level 3.3 MMOL/L (3.5-5.1) L Chloride Level 108 MMOL/L (98-107) H Carbon Dioxide Level 20 MMOL/L (21-32) L Anion Gap 11 mmol/L (5-15) Blood Urea Nitrogen 32 mg/dL (7-18) H Creatinine 2.1 MG/DL (0.55-1.30) H Estimat Glomerular Filtration Rate 24.3 mL/min (>60) Glucose Level 152 MG/DL (74-106) H Calcium Level 7.6 MG/DL (8.5-10.1) L Phosphorus Level 4.1 MG/DL (2.5-4.9) Magnesium Level 1.9 MG/DL (1.8-2.4) Total Bilirubin 7.5 MG/DL (0.2-1.0) H Direct Bilirubin 5.4 MG/DL (0.0-0.3) H Aspartate Amino Transf (AST/SGOT) 27 U/L (15-37) Alanine Aminotransferase (ALT/SGPT) 13 U/L (12-78) Alkaline Phosphatase 194 U/L (46-116) H Ammonia 33 umol/L (11-32) H Total Protein 4.6 G/DL (6.4-8.2) L Albumin 1.0 G/DL (3.4-5.0) L Globulin 3.6 g/dL Albumin/Globulin Ratio 0.3 (1.0-2.7) L Alpha Fetoprotein Pending Random Vancomycin Level 14.1 ug/mL Arterial Blood pH 7.422 (7.350-7.450) Arterial Blood Partial Pressure CO2 25.1 mmHg (35.0-45.0) L Arterial Blood Partial Pressure O2 99.8 mmHg (75.0-100.0) Arterial Blood HCO3 16.0 mmol/L (22.0-26.0) *L Arterial Blood Oxygen Saturation 97.0 % (95-100) Arterial Blood Base Excess -7.4 (-2-2) L Saravanan Test Positive Test 05/20/19 09:58 Lactic Acid Level Pending Shireen Khan MD May 20, 2019 11:15
--- NOTE | 2019-05-20 11:45 | NUR ---
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 2.1 ALK PHOS 194 PT 18.2 INR 1.8 ABD US=Liver disease/cirrhosis with signs of portal hypertension including moderate ascites, abnormal portal venous waveform and splenomegaly. IS: VANCO IV X 1 CEFEPIME IV FLAGYL IV K+ IV PROTONIX IV ICU STATUS
--- NOTE | 2019-05-20 13:50 | NUR ---
NURSE NOTES: PT RICK PICC line dressing changed with CHAVA Mcdermott, dated, times, initialed. PT repositioned but rectal tube leaking, wiped down, cleaned, dried, linens changed. Will continue to monitor PT.
--- NOTE | 2019-05-20 14:12 | NUR ---
RD ASSESSMENT & RECOMMENDATIONS SEE CARE ACTIVITY FOR COMPLETE ASSESSMENT DAILY ESTIMATED NEEDS: Needs based on Cirrhosis, Critical care, wound/ 58kg adj 22-28 kcals/kg 6423-6642 total kcals 1.25-2 g protein/kg 72-116 g total protein 20-25 mL/kg 2393-5746 total fluid mLs NUTRITION DIAGNOSIS: * Swallowing difficulty R/T respiratory status as evidenced by pt orally intubated, on OGT feeding * Altered nutrition related lab values R/T cirrhosis, sepsis, clinical condition as evidenced by elev T bili (7.5 trend up), elev NH3 (152 ->33), elev LA, elev creat (2.1). CURRENT TF:Glucerna 1.2 @ 60ml/hr x 24 hrs PO DIET RECOMMENDATIONS: [employer] eval post extubation -> LOW NA ENTERAL NUTRITION RECOMMENDATIONS: Glucerna 1.2 @ 55ml/hr x 24 hrs to provide 1320ml, 1584kcal, 79g prot, 1063ml free water * Rec goal rate to 55ml/hr x 24 hrs -> meets 100% est kcal/prot needs * HOB over 30 degrees/ water flush per MD. ADDITIONAL RECOMMENDATIONS: * Calibrated bedscale wt for accurate CBW * Monitor BGs, need for NISS * Wound healing: add Miquel 1pkt BID : add VIt C 500mg QD : add ZnSO4 220mg QD x 10 days * Monitor lytes, replete as needed .
--- NOTE | 2019-05-20 14:40 | Infectious Diseases Prog Note ---
Assessment/Plan Assessment/Plan 58 yo female with PMHx of Liver cirrhosis with recurrent ascites, HTN, ETOH abuse, DM and Hepatic encephalopathy who presented to the ED on 05/17/19 with AMS. Sepsis UA (+) CXR no sign of PNA Urine Cx 05/17/19 - K. pneumo AMS Hepatic encephalopathy ? vs Urosepsis Leukocytosis No fever Hx Gram negative bacteremia -05/03 BCx 2/4 ACHROMOBACTER XYLOSOXIDANS (S Zosyn, Ceftazidime, bactrim; R cefepime; I imipenem, Levaquin); 05/05 Bcx NTD Recurrent ascites -05/05 SP paracentesis: 3.5 L removed wbc 170 (N 49%); cx Neg - -03/11/19 sp paracentesis:fluid wbc 97 (N 34%) HTN DM Liver Cirrhosis EtOH abuse Plan: -Continue Cefepime #3 Flagyl #3 and Vancomycin #3 Will down grade abx pending blood Cx -f/u cx -Monitor CBC/CMP, temperatures Thank you for this consult. We will continue to follow the patient with you. Subjective Allergies: Coded Allergies: No Known Allergies (Unverified , 01/31/19) Subjective Afebrile Still intubated Leukocytosis resolved Objective Vital Signs Last 24 Hour Vital Signs Date Time Temp Pulse Resp B/P (MAP) Pulse Ox O2 Delivery O2 Flow Rate FiO2 05/20/19 14:00 91 20 113/63 (80) 100 05/20/19 13:00 90 22 110/59 (76) 100 05/20/19 12:00 98.5 88 20 98/56 (70) 100 05/20/19 12:00 90 05/20/19 12:00 35 05/20/19 12:00 Mechanical Ventilator 05/20/19 11:00 89 21 118/58 (78) 100 05/20/19 10:42 92 20 35 05/20/19 10:00 90 20 102/54 (70) 100 05/20/19 09:00 88 19 100/54 (69) 100 05/20/19 09:00 84 19 35 05/20/19 08:00 Mechanical Ventilator 05/20/19 08:00 90 05/20/19 08:00 97.9 88 19 112/61 (78) 100 05/20/19 08:00 35 05/20/19 07:57 92 25 35 35 05/20/19 07:50 100 05/20/19 07:00 92 19 111/58 (75) 100 05/20/19 06:30 87 18 35 05/20/19 06:00 86 19 112/57 (75) 100 05/20/19 05:00 90 21 100/59 (73) 100 05/20/19 04:44 91 20 35 05/20/19 04:00 Mechanical Ventilator 05/20/19 04:00 35 05/20/19 04:00 98.0 90 20 104/56 (72) 100 05/20/19 04:00 88 05/20/19 03:00 92 19 111/58 (75) 100 05/20/19 02:32 88 18 35 05/20/19 02:00 85 18 115/58 (77) 100 05/20/19 01:16 81 18 35 05/20/19 01:00 92 22 106/62 (77) 100 05/20/19 00:00 97.7 84 18 104/54 (71) 100 05/20/19 00:00 Mechanical Ventilator 05/20/19 00:00 85 05/20/19 00:00 35 05/19/19 23:09 84 18 35 05/19/19 23:00 85 18 103/51 (68) 100 05/19/19 22:00 98.0 86 18 104/50 (68) 100 05/19/19 21:00 88 19 105/52 (69) 100 05/19/19 21:00 86 18 35 05/19/19 20:00 35 05/19/19 20:00 Mechanical Ventilator 05/19/19 20:00 98.2 86 18 107/54 (71) 100 05/19/19 20:00 83 05/19/19 19:10 85 18 35 05/19/19 19:00 85 18 99/44 (62) 100 05/19/19 18:00 85 18 98/46 (63) 100 05/19/19 17:12 82 20 50 05/19/19 17:00 98.2 86 18 103/46 (65) 95 05/19/19 16:00 83 05/19/19 16:00 Mechanical Ventilator 05/19/19 16:00 35 05/19/19 16:00 83 18 89/65 (73) 100 05/19/19 15:26 90 23 50 05/19/19 15:00 87 18 95/51 (66) 100 Height (Feet): 5 Height (Inches): 0.00 Weight (Pounds): 177 Objective GEN: Intubated on vent, HEENT: NCAT, MMM, PERRL CHEST: Coarse B/L CARDIOVASCULAR: Regular rhythm and rate. S1 and S2 a ABDOMEN: Soft, Obese, + BS Microbiology Date/Time Source Procedure Growth Status 05/17/19 21:20 Blood Blood Culture - Preliminary NO GROWTH AFTER 48 HOURS Resulted 05/17/19 21:20 Blood Blood Culture - Preliminary NO GROWTH AFTER 48 HOURS Resulted 05/17/19 22:55 Nasal Nares MRSA Culture - Final NO METHICILLIN RESISTANT STAPH AUREUS... Complete 05/17/19 22:40 Urine,Clean Catch Urine Culture - Preliminary Klebsiella Pneumoniae YEAST Resulted 05/17/19 22:52 Rectum - Final NO CARBAPENEM-RESISTANT ENTEROBACTERI... Complete 05/17/19 22:52 Rectum VRE Culture - Final Enterococcus Faecium - Vre Complete Laboratory Tests Test 05/19/19 20:00 05/20/19 04:00 05/20/19 08:53 05/20/19 09:58 White Blood Count 6.3 K/UL (4.8-10.8) # 8.0 K/UL (4.8-10.8) Red Blood Count 2.27 M/UL (4.20-5.40) L 2.82 M/UL (4.20-5.40) L Hemoglobin 6.4 G/DL (12.0-16.0) *L 7.8 G/DL (12.0-16.0) L Hematocrit 20.2 % (37.0-47.0) L 24.8 % (37.0-47.0) L Mean Corpuscular Volume 89 FL (80-99) 88 FL (80-99) Mean Corpuscular Hemoglobin 28.2 PG (27.0-31.0) 27.7 PG (27.0-31.0) Mean Corpuscular Hemoglobin Concent 31.7 G/DL (32.0-36.0) L 31.6 G/DL (32.0-36.0) L Red Cell Distribution Width 22.1 % (11.6-14.8) H 22.3 % (11.6-14.8) H Platelet Count 55 K/UL (150-450) L 63 K/UL (150-450) L Mean Platelet Volume 8.0 FL (6.5-10.1) 6.4 FL (6.5-10.1) L Neutrophils (%) (Auto) 71.3 % (45.0-75.0) % (45.0-75.0) Lymphocytes (%) (Auto) 15.9 % (20.0-45.0) L % (20.0-45.0) Monocytes (%) (Auto) 10.3 % (1.0-10.0) H % (1.0-10.0) Eosinophils (%) (Auto) 1.7 % (0.0-3.0) % (0.0-3.0) Basophils (%) (Auto) 0.1 % (0.0-2.0) % (0.0-2.0) Lactic Acid Level 3.60 mmol/L (0.4-2.0) H 2.80 mmol/L (0.4-2.0) H 2.40 mmol/L (0.4-2.0) H Differential Total Cells Counted 100 Neutrophils % (Manual) 71 % (45-75) Lymphocytes % (Manual) 15 % (20-45) L Monocytes % (Manual) 11 % (1-10) H Eosinophils % (Manual) 3 % (0-3) Basophils % (Manual) 0 % (0-2) Band Neutrophils 0 % (0-8) Platelet Estimate Decreased L Platelet Morphology Normal Polychromasia 2+ Hypochromasia 1+ Anisocytosis 2+ Prothrombin Time 18.2 SEC (9.30-11.50) H Prothromb Time International Ratio 1.8 (0.9-1.1) H Sodium Level 138 MMOL/L (136-145) Potassium Level 3.3 MMOL/L (3.5-5.1) L Chloride Level 108 MMOL/L (98-107) H Carbon Dioxide Level 20 MMOL/L (21-32) L Anion Gap 11 mmol/L (5-15) Blood Urea Nitrogen 32 mg/dL (7-18) H Creatinine 2.1 MG/DL (0.55-1.30) H Estimat Glomerular Filtration Rate 24.3 mL/min (>60) Glucose Level 152 MG/DL (74-106) H Calcium Level 7.6 MG/DL (8.5-10.1) L Phosphorus Level 4.1 MG/DL (2.5-4.9) Magnesium Level 1.9 MG/DL (1.8-2.4) Total Bilirubin 7.5 MG/DL (0.2-1.0) H Direct Bilirubin 5.4 MG/DL (0.0-0.3) H Aspartate Amino Transf (AST/SGOT) 27 U/L (15-37) Alanine Aminotransferase (ALT/SGPT) 13 U/L (12-78) Alkaline Phosphatase 194 U/L (46-116) H Ammonia 33 umol/L (11-32) H Total Protein 4.6 G/DL (6.4-8.2) L Albumin 1.0 G/DL (3.4-5.0) L Globulin 3.6 g/dL Albumin/Globulin Ratio 0.3 (1.0-2.7) L Alpha Fetoprotein Pending Random Vancomycin Level 14.1 ug/mL Arterial Blood pH 7.422 (7.350-7.450) Arterial Blood Partial Pressure CO2 25.1 mmHg (35.0-45.0) L Arterial Blood Partial Pressure O2 99.8 mmHg (75.0-100.0) Arterial Blood HCO3 16.0 mmol/L (22.0-26.0) *L Arterial Blood Oxygen Saturation 97.0 % (95-100) Arterial Blood Base Excess -7.4 (-2-2) L Saravanan Test Positive Current Medications Medications (Trade) Dose Ordered Sig/Almaz Route PRN Reason Start Time Stop Time Status Last Admin Dose Admin Cefepime HCl 1 gm/ Dextrose 55 ml @ 110 mls/hr Q24H IVPB 05/18/19 21:00 05/25/19 20:59 05/19/19 20:10 Chlorhexidine Gluconate (Shannon-Hex 2%) 1 applic DAILY@2000 TOPIC 05/18/19 20:00 06/17/19 19:59 05/19/19 20:09 Dextrose (Dextrose 50%) 25 ml Q30M PRN IV Hypoglycemia 05/17/19 21:45 06/16/19 21:44 Dextrose (Dextrose 50%) 50 ml Q30M PRN IV Hypoglycemia 05/17/19 21:45 06/16/19 21:44 Haloperidol Lactate (Haldol) 5 mg EVERY HOUR PRN IVPB Agitation 05/19/19 10:00 06/18/19 09:59 Lactulose (Cephulac) 10 gm THREE TIMES A DAY NG 05/20/19 13:00 06/17/19 10:29 05/20/19 13:38 Lorazepam (Ativan 2mg/ml 1ml) 0.5 mg Q4H PRN IV For Anxiety 05/17/19 21:45 05/24/19 21:44 05/19/19 09:14 Metronidazole 100 ml @ 100 mls/hr Q6H IVPB 05/18/19 08:00 05/25/19 07:59 05/20/19 13:38 Morphine Sulfate (Morphine Sulfate) 1 mg Q4H PRN IVP For Pain 05/17/19 21:45 05/24/19 21:44 05/19/19 09:15 Ondansetron HCl (Zofran) 4 mg Q6H PRN IVP Nausea & Vomiting 05/17/19 21:45 06/16/19 21:44 Pantoprazole (Protonix) 40 mg EVERY 12 HOURS IVP 05/18/19 21:00 06/17/19 20:59 05/20/19 08:39 Rifaximin (Xifaxan) 550 mg EVERY 12 HOURS NG 05/18/19 21:00 05/25/19 20:59 05/20/19 08:39 Vancomycin HCl (Vanco rx to dose) 1 ea DAILY PRN MISC Per rx protocol 05/18/19 11:15 06/17/19 11:14 Vincent Edward MD May 20, 2019 14:40
[2019-05-20] MEDS ORDERED: Sterile Water Irrig 1000ml IRRIG ONE (14:43)
[2019-05-20] MEDS ORDERED: NS 275ml ONE ×2 (14:43)
[2019-05-20] MEDS ORDERED: Tubing Blood Filter IV ONE (14:43)
[2019-05-20] MEDS ORDERED: D5 1/2NS 1000ml IV ONE (14:43)
[2019-05-20] MEDS ORDERED: Tubing IV Secondary IV ONE (14:43)
--- NOTE | 2019-05-20 18:00 | NUR ---
NURSE NOTES: PT rectal tube leaked, was wiped down, changed linens, kept clean and dry. Will continue to monitor PT.
--- NOTE | 2019-05-20 18:12 | Internal Med Progress Note ---
Subjective Physician Name Goldy Amador Attending Physician Goldy Amador MD Current Medications Medications (Trade) Dose Ordered Sig/Almaz Route PRN Reason Start Time Stop Time Status Last Admin Dose Admin Cefepime HCl 1 gm/ Dextrose 55 ml @ 110 mls/hr Q24H IVPB 05/18/19 21:00 05/25/19 20:59 05/19/19 20:10 Chlorhexidine Gluconate (Shannon-Hex 2%) 1 applic DAILY@2000 TOPIC 05/18/19 20:00 06/17/19 19:59 05/19/19 20:09 Dextrose (Dextrose 50%) 25 ml Q30M PRN IV Hypoglycemia 05/17/19 21:45 06/16/19 21:44 Dextrose (Dextrose 50%) 50 ml Q30M PRN IV Hypoglycemia 05/17/19 21:45 06/16/19 21:44 Haloperidol Lactate (Haldol) 5 mg EVERY HOUR PRN IVPB Agitation 05/19/19 10:00 06/18/19 09:59 Lactulose (Cephulac) 10 gm THREE TIMES A DAY NG 05/20/19 13:00 06/17/19 10:29 05/20/19 13:38 Lorazepam (Ativan 2mg/ml 1ml) 0.5 mg Q4H PRN IV For Anxiety 05/17/19 21:45 05/24/19 21:44 05/19/19 09:14 Metronidazole 100 ml @ 100 mls/hr Q6H IVPB 05/18/19 08:00 05/25/19 07:59 05/20/19 13:38 Morphine Sulfate (Morphine Sulfate) 1 mg Q4H PRN IVP For Pain 05/17/19 21:45 05/24/19 21:44 05/19/19 09:15 Ondansetron HCl (Zofran) 4 mg Q6H PRN IVP Nausea & Vomiting 05/17/19 21:45 06/16/19 21:44 Pantoprazole (Protonix) 40 mg EVERY 12 HOURS IVP 05/18/19 21:00 06/17/19 20:59 05/20/19 08:39 Rifaximin (Xifaxan) 550 mg EVERY 12 HOURS NG 05/18/19 21:00 05/25/19 20:59 9/20/19 08:39 Vancomycin HCl (Vanco rx to dose) 1 ea DAILY PRN MISC Per rx protocol 05/18/19 11:15 06/17/19 11:14 Allergies: Coded Allergies: No Known Allergies (Unverified , 01/31/19) Subjective In ICU, intubated, open her eyes, moving extremities spontaneously, unrevealing weaning process with continue CPAP on the ventilation machine. Objective Last Vital Signs Date Time Temp Pulse Resp B/P (MAP) Pulse Ox O2 Delivery O2 Flow Rate FiO2 05/20/19 17:00 90 18 106/34 (58) 100 05/20/19 16:41 35 05/20/19 16:00 98.2 05/20/19 16:00 Mechanical Ventilator Laboratory Tests Test 05/19/19 20:00 05/20/19 04:00 05/20/19 08:53 05/20/19 09:58 White Blood Count 6.3 K/UL (4.8-10.8) # 8.0 K/UL (4.8-10.8) Red Blood Count 2.27 M/UL (4.20-5.40) L 2.82 M/UL (4.20-5.40) L Hemoglobin 6.4 G/DL (12.0-16.0) *L 7.8 G/DL (12.0-16.0) L Hematocrit 20.2 % (37.0-47.0) L 24.8 % (37.0-47.0) L Mean Corpuscular Volume 89 FL (80-99) 88 FL (80-99) Mean Corpuscular Hemoglobin 28.2 PG (27.0-31.0) 27.7 PG (27.0-31.0) Mean Corpuscular Hemoglobin Concent 31.7 G/DL (32.0-36.0) L 31.6 G/DL (32.0-36.0) L Red Cell Distribution Width 22.1 % (11.6-14.8) H 22.3 % (11.6-14.8) H Platelet Count 55 K/UL (150-450) L 63 K/UL (150-450) L Mean Platelet Volume 8.0 FL (6.5-10.1) 6.4 FL (6.5-10.1) L Neutrophils (%) (Auto) 71.3 % (45.0-75.0) % (45.0-75.0) Lymphocytes (%) (Auto) 15.9 % (20.0-45.0) L % (20.0-45.0) Monocytes (%) (Auto) 10.3 % (1.0-10.0) H % (1.0-10.0) Eosinophils (%) (Auto) 1.7 % (0.0-3.0) % (0.0-3.0) Basophils (%) (Auto) 0.1 % (0.0-2.0) % (0.0-2.0) Lactic Acid Level 3.60 mmol/L (0.4-2.0) H 2.80 mmol/L (0.4-2.0) H 2.40 mmol/L (0.4-2.0) H Differential Total Cells Counted 100 Neutrophils % (Manual) 71 % (45-75) Lymphocytes % (Manual) 15 % (20-45) L Monocytes % (Manual) 11 % (1-10) H Eosinophils % (Manual) 3 % (0-3) Basophils % (Manual) 0 % (0-2) Band Neutrophils 0 % (0-8) Platelet Estimate Decreased L Platelet Morphology Normal Polychromasia 2+ Hypochromasia 1+ Anisocytosis 2+ Prothrombin Time 18.2 SEC (9.30-11.50) H Prothromb Time International Ratio 1.8 (0.9-1.1) H Sodium Level 138 MMOL/L (136-145) Potassium Level 3.3 MMOL/L (3.5-5.1) L Chloride Level 108 MMOL/L (98-107) H Carbon Dioxide Level 20 MMOL/L (21-32) L Anion Gap 11 mmol/L (5-15) Blood Urea Nitrogen 32 mg/dL (7-18) H Creatinine 2.1 MG/DL (0.55-1.30) H Estimat Glomerular Filtration Rate 24.3 mL/min (>60) Glucose Level 152 MG/DL (74-106) H Calcium Level 7.6 MG/DL (8.5-10.1) L Phosphorus Level 4.1 MG/DL (2.5-4.9) Magnesium Level 1.9 MG/DL (1.8-2.4) Total Bilirubin 7.5 MG/DL (0.2-1.0) H Direct Bilirubin 5.4 MG/DL (0.0-0.3) H Aspartate Amino Transf (AST/SGOT) 27 U/L (15-37) Alanine Aminotransferase (ALT/SGPT) 13 U/L (12-78) Alkaline Phosphatase 194 U/L (46-116) H Ammonia 33 umol/L (11-32) H Total Protein 4.6 G/DL (6.4-8.2) L Albumin 1.0 G/DL (3.4-5.0) L Globulin 3.6 g/dL Albumin/Globulin Ratio 0.3 (1.0-2.7) L Alpha Fetoprotein Pending Random Vancomycin Level 14.1 ug/mL Arterial Blood pH 7.422 (7.350-7.450) Arterial Blood Partial Pressure CO2 25.1 mmHg (35.0-45.0) L Arterial Blood Partial Pressure O2 99.8 mmHg (75.0-100.0) Arterial Blood HCO3 16.0 mmol/L (22.0-26.0) *L Arterial Blood Oxygen Saturation 97.0 % (95-100) Arterial Blood Base Excess -7.4 (-2-2) L Saravanan Test Positive Microbiology Date/Time Source Procedure Growth Status 05/17/19 21:20 Blood Blood Culture - Preliminary NO GROWTH AFTER 48 HOURS Resulted 05/17/19 21:20 Blood Blood Culture - Preliminary NO GROWTH AFTER 48 HOURS Resulted 05/17/19 22:55 Nasal Nares MRSA Culture - Final NO METHICILLIN RESISTANT STAPH AUREUS... Complete 05/17/19 22:40 Urine,Clean Catch Urine Culture - Preliminary Klebsiella Pneumoniae YEAST Resulted 05/17/19 22:52 Rectum - Final NO CARBAPENEM-RESISTANT ENTEROBACTERI... Complete 05/17/19 22:52 Rectum VRE Culture - Final Enterococcus Faecium - Vre Complete Intake and Output 05/19/19 05/20/19 19:00 07:00 Intake Total 780 ml 1025 ml Output Total 4735 ml 360 ml Balance -3955 ml 665 ml IV Total 750 ml 855 ml Tube Feeding 30 ml 170 ml Output Urine Total 235 ml 360 ml Other 4500 ml # Bowel Movements 3 1 Objective General: Intubated, responsive, open her eyes spontaneously. HEENT: NCAT, sclera icteric, PERRL, EOMI, ET tube presented, OG tube. Neck: Supple, no significant jugular venous distention, Lungs: Mechanical breath sounds, decreased air at the bases, no Wheeze or Rales. Heart: Regular rate and rhythm, normal S1/S2, no murmurs Abdomen: soft, nontender, more distended. Positive fluid shift, normoactive bowel sounds, Obesity. : Draper catheter presented. Extremities: No Cyanosis , clubbing or edema. Upper extremity PICC line presented Neuro: Able to move all extremities Skin: warm, no rash, jaundice. Assessment/Plan Assessment/Plan (1) Acute hypoxemic respiratory failure (2) Acute metabolic encephalopathy (3) Sepsis (4) Anasarca (5) Hepatic encephalopathy (6) Coagulopathy (7) Thrombocytopenia (8) Liver cirrhosis (9) ZI / ATN (10) Hypertension. Plan: Follow-up with the laboratory and cultures. Weaning trial with continue CPAP. Antibiotics: Cefepime, Flagyl, vancomycin. DVT prophylaxis with SCD. CODE STATUS is full code. Goldy Amador MD May 20, 2019 18:12
--- NOTE | 2019-05-20 19:50 | NUR ---
HAND-OFF: Report and PT given to CHAVA Durand.
--- NOTE | 2019-05-20 19:51 | NUR ---
NURSE NOTES: Received patient from CHAVA Chapman. Patient orally intubated. No shortness of breath at this time. Tolerating feeding. Vital signs stable. Head of bed elevated. Call light within reach.
[2019-05-20] MEDS: Dyna-Hex 2% Top Sol 2oz TOPIC SCH (20:00)
--- NOTE | 2019-05-20 20:30 | NUR ---
HAND-OFF: Report given to CHAVA Art for continuity of care.
--- NOTE | 2019-05-20 20:30 | NUR ---
NURSE NOTES: Received report from CHAVA Durand. Patient in bed unable to follow commands, Patient noted with tube feedings ongoing, Rectal tube in place and PICC line to left upper arm. Vented on AC/VC mode. No acute distress noted. Will continue to monitor.
[2019-05-20] MEDS: Cefepime HCl 1 GM in D5W 55 ML IVPB SCH (21:45)
--- NOTE | 2019-05-20 22:00 | NUR ---
NURSE NOTES: Patient self disconnects from the vent on two separate occasions. Wrist restraints orders placed. Will continue to monitor.
[2019-05-20] MEDS: LORazepam Inj 2mg/ml 1ml IV PRN (22:08)
[2019-05-21] VITALS (23 sets, daily range): BP systolic 104–130; BP diastolic 60–78
--- NOTE | 2019-05-21 | NUR ---
NURSE NOTES: Patient tolerating feeding. Continues with bilateral soft wrist restraints for attempting to pull out tubes. Reoriented and redirected, still with attempts to pull out tubes. Peripheral pulses present, skin warm and dry to touch.
--- NOTE | 2019-05-21 02:00 | NUR ---
NURSE NOTES: Patient repositioned. Vital signs stable.
[2019-05-21] MEDS: LORazepam Inj 2mg/ml 1ml IV PRN ×3 (03:30→19:41)
--- NOTE | 2019-05-21 04:00 | NUR ---
NURSE NOTES: Bed bath, oral care, change of linens done.
[2019-05-21 05:38] LABS: HEMATOCRIT 25.4 % (37.0-47.0); HEMOGLOBIN 7.9 G/DL (12.0-16.0); MEAN CORPUSCULAR VOLUME 89 FL (80-99); PLATELET COUNT 68 K/UL (150-450); RED BLOOD COUNT 2.85 M/UL (4.20-5.40); RED CELL DISTRIBUTION WIDTH 24.6 % (11.6-14.8); WHITE BLOOD COUNT 9.8 K/UL (4.8-10.8)
[2019-05-21 06:01] LABS: AMMONIA 145 umol/L (11-32)
[2019-05-21 06:31] LABS: ALANINE AMINOTRANSFERASE 16 U/L (12-78); ALBUMIN/GLOBULIN RATIO 0.3 (1.0-2.7); ALKALINE PHOSPHATASE 212 U/L (46-116); ANION GAP 12 mmol/L (5-15); ASPARTATE AMINO TRANSFERASE 34 U/L (15-37); BILIRUBIN,TOTAL 6.8 MG/DL (0.2-1.0); BLOOD UREA NITROGEN 31 mg/dL (7-18); CALCIUM 7.6 MG/DL (8.5-10.1); CARBON DIOXIDE 18 MMOL/L (21-32); CHLORIDE 109 MMOL/L (98-107); CREATININE 1.9 MG/DL (0.55-1.30); PHOSPHORUS 3.5 MG/DL (2.5-4.9); POTASSIUM 3.6 MMOL/L (3.5-5.1); SODIUM 139 MMOL/L (136-145)
[2019-05-21 06:59] LABS: BILIRUBIN,DIRECT 4.9 MG/DL (0.0-0.3)
--- NOTE | 2019-05-21 07:18 | NUR ---
RESPIRATORY NOTE: received pt orally intubated and on current vent orders. ETT 7.5, placed 19cm at the lip. pt in no resp distress but is slighty tachypneic. will attempt to wean later this morning following MD orders. ETT is secured via anchor fast with no visible redness or skin wounds. alarms are set and audible with ambu bag at bedside. will cont to monitor.
--- NOTE | 2019-05-21 07:32 | NUR ---
HAND-OFF: Report given to CHAVA Castorena. Patient in bed resting, no acute respiratory distress noted. Patient stable at hand-off.
--- NOTE | 2019-05-21 07:35 | NUR ---
NURSE NOTES: Received report from CHAVA Art. pt in bed resting, responsive to pain and shaking. on r.a sating 93%. on media monitor BP 117/66, HR 93. Ett 7.5, 19cm at lip. vent setings: AC18, VT 450, PeeP 5, [id number]%. secretions dalton. abdomen distended, bowel sounds hypoactive. Pt jaundiced. rectal tube to gravity with moderate drainage light brown stool. OGT connected to tube feed glucerna 1.2 @60ml/hr. no residual. RICK PICC line, drsg dry and intact. bilateral soft wrist restraints on for safety to. circulation check done. HOB kept elevated . no resp. distress. Will continue to monitor.
[2019-05-21] MEDS ORDERED: Tubing IV Secondary IV ONE (08:35)
--- NOTE | 2019-05-21 09:16 | Surgery Progress Note ---
Surgery Progress Note Subjective Procedure Performed sepsis Additional Comments sites clean labs noted ill appearing on vents upport Objective Last 24 Hour Vital Signs Date Time Temp Pulse Resp B/P (MAP) Pulse Ox O2 Delivery O2 Flow Rate FiO2 05/21/19 08:00 30 05/21/19 07:14 94 29 35 30 05/21/19 07:06 92 20 112/60 (77) 100 05/21/19 06:00 89 21 104/61 (75) 100 05/21/19 05:10 96 23 35 30 05/21/19 05:00 96 20 108/64 (79) 100 05/21/19 04:00 97.5 98 23 119/62 (81) 100 05/21/19 04:00 Mechanical Ventilator 05/21/19 04:00 35 05/21/19 04:00 94 05/21/19 04:00 Mechanical Ventilator 05/21/19 03:14 97 27 35 30 05/21/19 03:00 96 25 116/62 (80) 100 05/21/19 02:00 98 25 118/63 (81) 100 05/21/19 01:00 97 24 116/78 (91) 100 05/21/19 00:43 91 20 35 30 05/21/19 00:00 35 05/21/19 00:00 97 05/21/19 00:00 97.8 95 23 118/62 (80) 100 05/21/19 00:00 Mechanical Ventilator 05/20/19 23:06 94 24 35 30 05/20/19 23:00 96 22 111/68 (82) 100 05/20/19 22:00 96 23 113/64 (80) 100 05/20/19 21:00 96 24 109/67 (81) 100 05/20/19 20:50 94 24 35 30 05/20/19 20:00 91 05/20/19 20:00 35 05/20/19 20:00 Mechanical Ventilator 05/20/19 20:00 98.5 91 23 101/56 (71) 96 05/20/19 19:20 92 32 35 30 05/20/19 19:00 92 23 99/59 (72) 100 05/20/19 18:00 92 24 93/52 (66) 100 05/20/19 17:00 90 18 106/34 (58) 100 05/20/19 16:41 95 20 35 05/20/19 16:00 98.2 97 25 107/54 (71) 100 05/20/19 16:00 91 05/20/19 16:00 Mechanical Ventilator 05/20/19 16:00 35 05/20/19 15:30 89 19 35 05/20/19 15:00 87 20 103/55 (71) 100 05/20/19 14:00 91 20 113/63 (80) 100 05/20/19 13:12 88 21 35 05/20/19 13:00 90 22 110/59 (76) 100 05/20/19 12:00 98.5 88 20 98/56 (70) 100 05/20/19 12:00 90 05/20/19 12:00 35 05/20/19 12:00 Mechanical Ventilator 05/20/19 11:00 89 21 118/58 (78) 100 05/20/19 10:42 92 20 35 05/20/19 10:00 90 20 102/54 (70) 100 I&O Intake and Output 05/20/19 05/21/19 18:59 06:59 Intake Total 1048.333 ml 845 ml Output Total 585 ml 430 ml Balance 463.333 ml 415 ml IV Total 748.333 ml 155 ml Tube Feeding 300 ml 690 ml Output Urine Total 385 ml 280 ml Stool Total 200 ml 150 ml Dressing: dry Wound: clean Cardiovascular: RSR Respiratory: decreased breath sounds Abdomen: soft, non-tender, decreased bowel sounds Extremities: edema, no cyanosis, other Laboratory Tests Test 05/20/19 09:58 05/21/19 04:00 05/21/19 06:20 Lactic Acid Level 2.40 mmol/L (0.4-2.0) H 2.80 mmol/L (0.4-2.0) H White Blood Count 9.8 K/UL (4.8-10.8) Red Blood Count 2.85 M/UL (4.20-5.40) L Hemoglobin 7.9 G/DL (12.0-16.0) L Hematocrit 25.4 % (37.0-47.0) L Mean Corpuscular Volume 89 FL (80-99) Mean Corpuscular Hemoglobin 27.8 PG (27.0-31.0) Mean Corpuscular Hemoglobin Concent 31.3 G/DL (32.0-36.0) L Red Cell Distribution Width 24.6 % (11.6-14.8) H Platelet Count 68 K/UL (150-450) L Mean Platelet Volume 6.4 FL (6.5-10.1) L Neutrophils (%) (Auto) % (45.0-75.0) Lymphocytes (%) (Auto) % (20.0-45.0) Monocytes (%) (Auto) % (1.0-10.0) Eosinophils (%) (Auto) % (0.0-3.0) Basophils (%) (Auto) % (0.0-2.0) Differential Total Cells Counted 100 Neutrophils % (Manual) 78 % (45-75) H Lymphocytes % (Manual) 12 % (20-45) L Monocytes % (Manual) 9 % (1-10) Eosinophils % (Manual) 1 % (0-3) Basophils % (Manual) 0 % (0-2) Band Neutrophils 0 % (0-8) Nucleated Red Blood Cells 2 /100 WBC Platelet Estimate Decreased L Platelet Morphology Normal Polychromasia 2+ Hypochromasia 1+ Anisocytosis 3+ Sodium Level 139 MMOL/L (136-145) Potassium Level 3.6 MMOL/L (3.5-5.1) Chloride Level 109 MMOL/L (98-107) H Carbon Dioxide Level 18 MMOL/L (21-32) L Anion Gap 12 mmol/L (5-15) Blood Urea Nitrogen 31 mg/dL (7-18) H Creatinine 1.9 MG/DL (0.55-1.30) H Estimat Glomerular Filtration Rate 27.2 mL/min (>60) Glucose Level 127 MG/DL (74-106) H Uric Acid 9.2 MG/DL (2.6-7.2) H Calcium Level 7.6 MG/DL (8.5-10.1) L Phosphorus Level 3.5 MG/DL (2.5-4.9) Magnesium Level 1.8 MG/DL (1.8-2.4) Total Bilirubin 6.8 MG/DL (0.2-1.0) H Direct Bilirubin 4.9 MG/DL (0.0-0.3) H Aspartate Amino Transf (AST/SGOT) 34 U/L (15-37) Alanine Aminotransferase (ALT/SGPT) 16 U/L (12-78) Alkaline Phosphatase 212 U/L (46-116) H Ammonia 145 umol/L (11-32) H C-Reactive Protein, Quantitative 30.4 mg/dL (0.00-0.90) H Pro-B-Type Natriuretic Peptide 559 pg/mL (0-125) H Total Protein 4.9 G/DL (6.4-8.2) L Albumin 1.0 G/DL (3.4-5.0) L Globulin 3.9 g/dL Albumin/Globulin Ratio 0.3 (1.0-2.7) L Plan Problems: (1) Sacral decubitus ulcer Assessment & Plan: Pt presented on admission with icteric sclerae and skin. Moisture intertrigo Madhu/left abd folds.(1.5cm long). Moisture intertrigo R groin(8.5cm) slit noted with small amt bleeding. Mons pubis,labia majora and medial aspects of both upper thigh erythematous . Partial thickness wound noted to L thoracic. Base of wound is moist and viable. Edges flat and adherent to base of wound.No exudate noted. (L) 0.6cm x (W)0.8cm. Non-blanchable erythema sacrum,R and L buttocks with scattered shearing .Full thickness pressure injury noted to sacrococcygeal area. Base of wound is steve with small amt slough noted in center.(L) 0.7cm x (W)0.3cm. Area around wound is erythematous non-blanchable with shearing . Full thickness pressure injury R buttocks . Base of wound is moist, with Slough in center.Surrounding area erythematous and denuded. Evolving serous blister L heel.Base of wound is fluctuant with delineated,red margins.(L)3.5cm x (W)5.5cm. Periwound without erythema or fluctuance. R heel firm and blanchable. Tx.Plan: Apply Triad Paste to Sacrum and R buttocks. Cover wounds with Optifoam drsg. Change every 3 days and PRN. Apply Triad Paste to abd folds, R groin,Mons pubis, medial aspects of both upper thighs with each perineal care. Apply Optifoam drsg L thoracic wound. Cover with Optifoam drsg. Change every 3 days and prn. Apply Cavilon Skin Barrier to both heels. Cover each heel with Optifoam drsg. Change every 7 days and prn. APM/CHRISSY Mattress. Reposition at least every 2hours or as tolerated. Off-load heels with pillow (2) Liver cirrhosis Assessment & Plan: DAILY ESTIMATED NEEDS: Needs based on Cirrhosis, Critical care, sepsis/ 58kg adj 22-30 kcals/kg 0491-3009 total kcals 1.2-2 g protein/kg 70-116 g total protein 20-25 mL/kg 9035-4280 total fluid mLs NUTRITION DIAGNOSIS: * Swallowing difficulty R/T respiratory status as evidenced by pt orally intubated, NPO at this time * Altered nutrition related lab values R/T cirrhosis, sepsis, clinical condition as evidenced by elev T bili (5.5), elev NH3 (152), elev LA (6.7), elev creat (2.4). CURRENT TF:NPO PO DIET RECOMMENDATIONS: POOL LIFEGUARD eval post extubation -> LOW NA ENTERAL NUTRITION RECOMMENDATIONS: Glucerna 1.2 @ 55ml/hr x 24 hrs to provide 1320ml, 1584kcal, 79g prot, 1063ml free water * Rec Glucerna 1.2 to maintain good BG control: h/o DM * As medically appropriate, initiate Glucerna 1.2 @ 25ml/hr x 6 hrs * Advance 10ml q 4-6 hrs as tolerated to goal rate. * HOB over 30 degrees/ water flush per MD. ADDITIONAL RECOMMENDATIONS: * Calibrated bedscale wt for accurate CBW * W/ TF, monitor need for NISS: h/o DM * F/up w/ wound eval: add Miquel 1pkt BID + VIt C 250mg QD * Monitor lytes, replete as needed . (3) Acute on chronic alcoholic liver disease (4) Sepsis Assessment & Plan: Restore insufficiency, leukocytosis, anemia, lactic acidosis , liver insufficiency, sepsis Right line removed and pressure held until hemostasis obtained. Currently no significant hematoma or post injury comp occasion identified. Site clean dry. Left line in place and stable. Will recommend PICC line so femoral line can be removed and more definitive long -term access can be obtained given patient's current medical condition and likelihood for prolonged hospitalization stay US noted and okay paracentesis PICC Continue IV antibiotics We will monitor and follow with recommendations Ultrasound ordered Efrain Whitaker May 21, 2019 09:16
--- NOTE | 2019-05-21 09:23 | NUR ---
RESPIRATORY NOTE: started weaning trial at 0915 on CPAP PS8 fio2 35%. no resp distress noted at this time. pt's RR 23. as followed per MD orders will attempt to have pt maintain RR < 30. will cont to monitor.
[2019-05-21] MEDS: Lactulose 20gm/30ml UDC NG SCH ×3 (09:34→17:20)
[2019-05-21] MEDS: Pantoprazole Inj IVP SCH ×2 (09:34→21:24)
--- NOTE | 2019-05-21 09:57 | Nephrology Progress Note ---
Assessment/Plan Problem List: (1) ATN (acute tubular necrosis) (2) Sepsis (3) Acute respiratory failure (4) Acute on chronic alcoholic liver disease Assessment: worsening bili (5) Anemia Assessment Renal failure- Acute On May 09, 2019 normal renal parameters Severe Anemia, Acute on chronic- Acute part from right groin attempted line insertion Severe HypoAlbuminemia, Cirrhosis, ALD, Ascites Sepsis- High lactic Acid Acute respiratory failure Previous gram negative bacteremia / Sepsis Plan Hydrate- K supplement Antibiotics Monitor renal parameters avoid nephrotoxics transfuse as needed- per orders discussed with RN Subjective ROS Limited/Unobtainable: No Objective Objective Last 24 Hour Vital Signs Date Time Temp Pulse Resp B/P (MAP) Pulse Ox O2 Delivery O2 Flow Rate FiO2 05/21/19 09:18 100 05/21/19 09:18 90 25 35 05/21/19 08:00 30 05/21/19 07:14 94 29 35 30 05/21/19 07:06 92 20 112/60 (77) 100 05/21/19 06:00 89 21 104/61 (75) 100 05/21/19 05:10 96 23 35 30 05/21/19 05:00 96 20 108/64 (79) 100 05/21/19 04:00 97.5 98 23 119/62 (81) 100 05/21/19 04:00 Mechanical Ventilator 05/21/19 04:00 35 05/21/19 04:00 94 05/21/19 04:00 Mechanical Ventilator 05/21/19 03:14 97 27 35 30 05/21/19 03:00 96 25 116/62 (80) 100 05/21/19 02:00 98 25 118/63 (81) 100 05/21/19 01:00 97 24 116/78 (91) 100 05/21/19 00:43 91 20 35 30 05/21/19 00:00 35 05/21/19 00:00 97 05/21/19 00:00 97.8 95 23 118/62 (80) 100 05/21/19 00:00 Mechanical Ventilator 05/20/19 23:06 94 24 35 30 05/20/19 23:00 96 22 111/68 (82) 100 05/20/19 22:00 96 23 113/64 (80) 100 05/20/19 21:00 96 24 109/67 (81) 100 05/20/19 20:50 94 24 35 30 05/20/19 20:00 91 05/20/19 20:00 35 05/20/19 20:00 Mechanical Ventilator 05/20/19 20:00 98.5 91 23 101/56 (71) 96 05/20/19 19:20 92 32 35 30 05/20/19 19:00 92 23 99/59 (72) 100 05/20/19 18:00 92 24 93/52 (66) 100 05/20/19 17:00 90 18 106/34 (58) 100 05/20/19 16:41 95 20 35 05/20/19 16:00 98.2 97 25 107/54 (71) 100 05/20/19 16:00 91 05/20/19 16:00 Mechanical Ventilator 05/20/19 16:00 35 05/20/19 15:30 89 19 35 05/20/19 15:00 87 20 103/55 (71) 100 05/20/19 14:00 91 20 113/63 (80) 100 05/20/19 13:12 88 21 35 05/20/19 13:00 90 22 110/59 (76) 100 05/20/19 12:00 98.5 88 20 98/56 (70) 100 05/20/19 12:00 90 05/20/19 12:00 35 05/20/19 12:00 Mechanical Ventilator 05/20/19 11:00 89 21 118/58 (78) 100 05/20/19 10:42 92 20 35 05/20/19 10:00 90 20 102/54 (70) 100 Intake and Output 05/20/19 05/21/19 18:59 06:59 Intake Total 1048.333 ml 845 ml Output Total 585 ml 430 ml Balance 463.333 ml 415 ml IV Total 748.333 ml 155 ml Tube Feeding 300 ml 690 ml Output Urine Total 385 ml 280 ml Stool Total 200 ml 150 ml Laboratory Tests 05/20/19 09:58: Lactic Acid Level 2.40H 05/21/19 04:00: White Blood Count 9.8, Red Blood Count 2.85L, Hemoglobin 7.9L, Hematocrit 25.4L , Mean Corpuscular Volume 89, Mean Corpuscular Hemoglobin 27.8, Mean Corpuscular Hemoglobin Concent 31.3L, Red Cell Distribution Width 24.6H, Platelet Count 68L, Mean Platelet Volume 6.4L, Neutrophils (%) (Auto) , Lymphocytes (%) (Auto) , Monocytes (%) (Auto) , Eosinophils (%) (Auto) , Basophils (%) (Auto) , Differential Total Cells Counted 100, Neutrophils % ( Manual) 78H, Lymphocytes % (Manual) 12L, Monocytes % (Manual) 9, Eosinophils % ( Manual) 1, Basophils % (Manual) 0, Band Neutrophils 0, Nucleated Red Blood Cells 2, Platelet Estimate DecreasedL, Platelet Morphology Normal, Polychromasia 2+, Hypochromasia 1+, Anisocytosis 3+, Sodium Level 139, Potassium Level 3.6, Chloride Level 109H, Carbon Dioxide Level 18L, Anion Gap 12 , Blood Urea Nitrogen 31H, Creatinine 1.9H, Estimat Glomerular Filtration Rate 27.2, Glucose Level 127H, Uric Acid 9.2H, Calcium Level 7.6L, Phosphorus Level 3.5, Magnesium Level 1.8, Total Bilirubin 6.8H, Direct Bilirubin 4.9H, Aspartate Amino Transf (AST/SGOT) 34, Alanine Aminotransferase (ALT/SGPT) 16, Alkaline Phosphatase 212H, Ammonia 145H, C-Reactive Protein, Quantitative 30.4H , Pro-B-Type Natriuretic Peptide 559H, Total Protein 4.9L, Albumin 1.0L, Globulin 3.9, Albumin/Globulin Ratio 0.3L 05/21/19 06:20: Lactic Acid Level 2.80H Height (Feet): 5 Height (Inches): 0.00 Weight (Pounds): 195 General Appearance: no apparent distress EENT: other - vented Cardiovascular: tachycardia Respiratory/Chest: decreased breath sounds Abdomen: distended Objective no change Jovany Byers MD May 21, 2019 09:57
--- NOTE | 2019-05-21 10:20 | NUR ---
NURSE NOTES: pt lactic acid reflex drawn , placed on ice. taken down to lab. awaiting results.
--- NOTE | 2019-05-21 12:00 | NUR ---
NURSE NOTES: pt in bed restless,sliding down in bed, attempting to pull at suction on ETT. on r.a sating 100%. on manager cardiac cath BP 120/74, HR 95. Ett 7.5, 19cm at lip. pt weaning CPAP 8, RR 20's. secretions dalton. abdomen distended, bowel sounds hypoactive. Pt jaundiced. rectal tube to gravity with moderate drainage light brown stool. OGT connected to tube feed glucerna 1.2 @60ml/hr. no residual. RICK PICC line, drsg dry and intact. bilateral soft wrist restraints on for safety to. circulation check done. HOB kept elevated . no resp. distress. Will continue to monitor
--- NOTE | 2019-05-21 13:25 | NUR ---
NURSE NOTES: pt had vomiting episode estimated 40ml, light brown in color. sour odor. hob>30. minimal residual. will hold tube feed. anchor fast was recently adjusted to right side, ogt causing irritation to throat. ogt secured with additional tape to stabilize, pt suctioned. sating 96%. will inform GI of situation.
--- NOTE | 2019-05-21 14:24 | Internal Med Progress Note ---
Subjective Date of Service: May 21, 2019 Physician Name BenjaminJose Attending Physician Goldy Amador MD Current Medications Medications (Trade) Dose Ordered Sig/Almaz Route PRN Reason Start Time Stop Time Status Last Admin Dose Admin Cefepime HCl 1 gm/ Dextrose 55 ml @ 110 mls/hr Q24H IVPB 05/18/19 21:00 05/25/19 20:59 05/20/19 21:45 Chlorhexidine Gluconate (Shannon-Hex 2%) 1 applic DAILY@2000 TOPIC 05/18/19 20:00 06/17/19 19:59 05/20/19 20:00 Dextrose (Dextrose 50%) 25 ml Q30M PRN IV Hypoglycemia 05/17/19 21:45 06/16/19 21:44 Dextrose (Dextrose 50%) 50 ml Q30M PRN IV Hypoglycemia 05/17/19 21:45 06/16/19 21:44 Haloperidol Lactate (Haldol) 5 mg EVERY HOUR PRN IVPB Agitation 05/19/19 10:00 06/18/19 09:59 Lactulose (Cephulac) 10 gm THREE TIMES A DAY NG 05/20/19 13:00 06/17/19 10:29 05/21/19 13:45 Lorazepam (Ativan 2mg/ml 1ml) 0.5 mg Q4H PRN IV For Anxiety 05/17/19 21:45 05/24/19 21:44 05/21/19 03:30 Metronidazole 100 ml @ 100 mls/hr Q6H IVPB 05/18/19 08:00 05/25/19 07:59 05/21/19 13:45 Morphine Sulfate (Morphine Sulfate) 1 mg Q4H PRN IVP For Pain 05/17/19 21:45 05/24/19 21:44 05/19/19 09:15 Ondansetron HCl (Zofran) 4 mg Q6H PRN IVP Nausea & Vomiting 05/17/19 21:45 06/16/19 21:44 Pantoprazole (Protonix) 40 mg EVERY 12 HOURS IVP 05/18/19 21:00 06/17/19 20:59 05/21/19 09:34 Rifaximin (Xifaxan) 550 mg EVERY 12 HOURS NG 05/18/19 21:00 05/25/19 20:59 05/21/19 09:34 Vancomycin HCl (Vanco rx to dose) 1 ea DAILY PRN MISC Per rx protocol 05/18/19 11:15 06/17/19 11:14 Allergies: Coded Allergies: No Known Allergies (Unverified , 01/31/19) ROS Limited/Unobtainable: Yes Subjective 58 YO F admitted with respiratory failure and presumed septic shock. Now UTI. Cover for Int [facility]oy-Dr Amador. Intubated and sedated. ICU. S/P paracentesis 05/19 Objective Last Vital Signs Date Time Temp Pulse Resp B/P (MAP) Pulse Ox O2 Delivery O2 Flow Rate FiO2 05/21/19 14:00 99 24 126/74 (91) 99 05/21/19 12:47 30 30 05/21/19 12:00 Mechanical Ventilator 05/21/19 12:00 99.0 Laboratory Tests Test 05/21/19 04:00 05/21/19 06:20 05/21/19 09:00 White Blood Count 9.8 K/UL (4.8-10.8) Red Blood Count 2.85 M/UL (4.20-5.40) L Hemoglobin 7.9 G/DL (12.0-16.0) L Hematocrit 25.4 % (37.0-47.0) L Mean Corpuscular Volume 89 FL (80-99) Mean Corpuscular Hemoglobin 27.8 PG (27.0-31.0) Mean Corpuscular Hemoglobin Concent 31.3 G/DL (32.0-36.0) L Red Cell Distribution Width 24.6 % (11.6-14.8) H Platelet Count 68 K/UL (150-450) L Mean Platelet Volume 6.4 FL (6.5-10.1) L Neutrophils (%) (Auto) % (45.0-75.0) Lymphocytes (%) (Auto) % (20.0-45.0) Monocytes (%) (Auto) % (1.0-10.0) Eosinophils (%) (Auto) % (0.0-3.0) Basophils (%) (Auto) % (0.0-2.0) Differential Total Cells Counted 100 Neutrophils % (Manual) 78 % (45-75) H Lymphocytes % (Manual) 12 % (20-45) L Monocytes % (Manual) 9 % (1-10) Eosinophils % (Manual) 1 % (0-3) Basophils % (Manual) 0 % (0-2) Band Neutrophils 0 % (0-8) Nucleated Red Blood Cells 2 /100 WBC Platelet Estimate Decreased L Platelet Morphology Normal Polychromasia 2+ Hypochromasia 1+ Anisocytosis 3+ Sodium Level 139 MMOL/L (136-145) Potassium Level 3.6 MMOL/L (3.5-5.1) Chloride Level 109 MMOL/L (98-107) H Carbon Dioxide Level 18 MMOL/L (21-32) L Anion Gap 12 mmol/L (5-15) Blood Urea Nitrogen 31 mg/dL (7-18) H Creatinine 1.9 MG/DL (0.55-1.30) H Estimat Glomerular Filtration Rate 27.2 mL/min (>60) Glucose Level 127 MG/DL (74-106) H Uric Acid 9.2 MG/DL (2.6-7.2) H Calcium Level 7.6 MG/DL (8.5-10.1) L Phosphorus Level 3.5 MG/DL (2.5-4.9) Magnesium Level 1.8 MG/DL (1.8-2.4) Total Bilirubin 6.8 MG/DL (0.2-1.0) H Direct Bilirubin 4.9 MG/DL (0.0-0.3) H Aspartate Amino Transf (AST/SGOT) 34 U/L (15-37) Alanine Aminotransferase (ALT/SGPT) 16 U/L (12-78) Alkaline Phosphatase 212 U/L (46-116) H Ammonia 145 umol/L (11-32) H C-Reactive Protein, Quantitative 30.4 mg/dL (0.00-0.90) H Pro-B-Type Natriuretic Peptide 559 pg/mL (0-125) H Total Protein 4.9 G/DL (6.4-8.2) L Albumin 1.0 G/DL (3.4-5.0) L Globulin 3.9 g/dL Albumin/Globulin Ratio 0.3 (1.0-2.7) L Lactic Acid Level 2.80 mmol/L (0.4-2.0) H 2.50 mmol/L (0.66-2.22) H Intake and Output 05/20/19 05/21/19 19:00 07:00 Intake Total 1048.333 ml 855 ml Output Total 585 ml 425 ml Balance 463.333 ml 430 ml IV Total 698.333 ml 155 ml Tube Feeding 350 ml 700 ml Output Urine Total 385 ml 275 ml Stool Total 200 ml 150 ml Objective PHYSICAL EXAMINATION: GENERAL: The patient is a well-developed and well-nourished obese female, who is intubated and sedated. HEENT: Eyes, pupils are equal and responsive to light and accommodation. Extraocular movements are intact. NECK: Supple without lymphadenopathy. CHEST: Mech vent; Coarse upper breath sounds, otherwise without wheezes or rales. CARDIOVASCULAR: Regular rhythm, rate. S1, S2 normal without murmurs, rubs, or gallops. ABDOMEN: Soft, distended with decreased bowel sounds. No evidence of hepatosplenomegaly. Currently, no rebound or guarding noted. EXTREMITIES: Negative for clubbing, cyanosis, or edema. RECTAL/GENITAL: Not performed. NEUROLOGICAL: Unable to assess. Assessment/Plan Assessment/Plan ASSESSMENT: This is a 58-year-old female. 1. Respiratory failure. 2. Urinary tract infection=klebsiella pneumoniae 3. Probable sepsis. 4. Probable septic shock. 5. Alcoholic cirrhosis of the liver. 6. Hypertension. 7. Diabetes type 2. 8. Ascites. 9. Hypercholesterolemia. TREATMENT: 1. Respiratory failure. A Pulmonary consultation has been obtained with Dr. Shireen Khan. The patient is currently intubated and sedated in the intensive care unit. We will follow recommendations of Pulmonary. 2. Urinary tract infection. An Infectious Disease consultation has been obtained with . The patient has been placed empirically on cefepime, flagyl and vancomycin. Urine culture=gram neg elinor 3. Probable sepsis. 4. Septic shock. 5. Alcoholic cirrhosis of liver. A Gastroenterology consultation has been obtained with Dr. Jon Torres. S/P paracentesis 05/19/19 6. Hypertension. The patient is currently hypotensive. Hold all antihypertensive medications. 7. Diabetes type 2. A NovoLog sliding scale has been instituted. 8. Ascites, as above. A Gastroenterology consultation has been obtained with Dr. Jon Torres. The patient may require paracentesis. 9. Hypercholesterolemia. Jose Benjamin MD May 21, 2019 14:24
--- NOTE | 2019-05-21 14:42 | NUR ---
RESPIRATORY NOTE: placed pt back on AC because pt is vomiting. RN notified.
--- NOTE | 2019-05-21 16:00 | NUR ---
NURSE NOTES: pt given pain medication, now resting in bed. on manager legal BP 104/86, HR 94. Ett 75.19cm at lip. pt weaning CPAP 8, RR 20's. secretions dalton. abdomen distended, bowel sounds hypoactive. Pt jaundiced. rectal tube to gravity with moderate drainage light brown stool. OGT connected to tube feed glucerna 1.2 @60ml/hr. no residual. RICK PICC line, drsg dry and intact. bilateral soft wrist restraints on for safety to. circulation check done. HOB kept elevated . no resp. distress. Will continue to monitor
[2019-05-21] MEDS: Morphine Sulfate 2mg/ml Inj(IV/IM USE ONLY) IVP PRN ×2 (16:13→23:36)
--- NOTE | 2019-05-21 16:20 | NUR ---
NURSE NOTES: pt lactic acid reflex drawn , placed on ice. taken down to lab. awaiting results.
--- NOTE | 2019-05-21 16:23 | Cardiology Report ---
APPROVED REPORT EKG Measurement Heart [id number] Normal sinus rhythm Incomplete right bundle branch block Left anterior fascicular block Left ventricular hypertrophy with repolarization abnormality Cannot rule out Septal infarct, age undetermined Prolonged QT Abnormal ECG
--- NOTE | 2019-05-21 16:44 | Pulmonolgy Critical Care Note ---
Critical Care - Asmt/Plan Problems: (1) Acute respiratory failure (2) Acute metabolic encephalopathy (3) Sepsis (4) Anasarca (5) Hepatic encephalopathy (6) Coagulopathy (7) Thrombocytopenia (8) Liver cirrhosis Respiratory: monitor respiratory rate, adjust FIO2, CXR Cardiac: continue pressors, continue to monitor HR/BP Renal: F/U I&O, check electrolytes Infectious Disease: check cultures, continue antibiotics Gastrointestinal: continue feedings/current rate Endocrine: monitor blood sugar Hematologic: monitor H/H, transfuse if hgb<8.5 Neurologic: PRN Ativan, PRN Morphine, keep patient comfortable Time Spent (Minutes): 40 Discussed with: nurses, consultants, bilingual patient support caseworkergrocery manager - Objective Last 24 Hour Vital Signs Date Time Temp Pulse Resp B/P (MAP) Pulse Ox O2 Delivery O2 Flow Rate FiO2 05/21/19 16:37 92 18 35 30 05/21/19 16:00 98.9 93 20 121/72 (88) 99 05/21/19 14:37 98 29 30 30 05/21/19 14:00 99 24 126/74 (91) 99 05/21/19 13:00 94 25 126/74 (91) 99 05/21/19 12:47 95 27 30 30 05/21/19 12:00 Mechanical Ventilator 05/21/19 12:00 94 05/21/19 12:00 30 05/21/19 12:00 99.0 97 24 120/74 (89) 100 05/21/19 11:00 96 24 119/67 (84) 100 05/21/19 10:38 90 24 30 30 05/21/19 10:00 93 25 111/62 (78) 100 05/21/19 09:18 100 05/21/19 09:18 90 25 30 30 05/21/19 09:15 30 05/21/19 09:00 91 24 108/75 (86) 100 05/21/19 08:00 Mechanical Ventilator 05/21/19 08:00 30 05/21/19 08:00 89 05/21/19 08:00 98.3 89 20 104/72 (83) 100 05/21/19 07:14 94 29 35 30 05/21/19 07:06 92 20 112/60 (77) 100 05/21/19 06:00 89 21 104/61 (75) 100 05/21/19 05:10 96 23 35 30 05/21/19 05:00 96 20 108/64 (79) 100 05/21/19 04:00 97.5 98 23 119/62 (81) 100 05/21/19 04:00 Mechanical Ventilator 05/21/19 04:00 35 05/21/19 04:00 94 05/21/19 04:00 Mechanical Ventilator 05/21/19 03:14 97 27 35 30 05/21/19 03:00 96 25 116/62 (80) 100 05/21/19 02:00 98 25 118/63 (81) 100 05/21/19 01:00 97 24 116/78 (91) 100 05/21/19 00:43 91 20 35 30 05/21/19 00:00 35 05/21/19 00:00 97 05/21/19 00:00 97.8 95 23 118/62 (80) 100 05/21/19 00:00 Mechanical Ventilator 05/20/19 23:06 94 24 35 30 05/20/19 23:00 96 22 111/68 (82) 100 05/20/19 22:00 96 23 113/64 (80) 100 05/20/19 21:00 96 24 109/67 (81) 100 05/20/19 20:50 94 24 35 30 05/20/19 20:00 91 05/20/19 20:00 35 05/20/19 20:00 Mechanical Ventilator 05/20/19 20:00 98.5 91 23 101/56 (71) 96 05/20/19 19:20 92 32 35 30 05/20/19 19:00 92 23 99/59 (72) 100 05/20/19 18:00 92 24 93/52 (66) 100 05/20/19 17:00 90 18 106/34 (58) 100 Status: awake Condition: critical HEENT: atraumatic Heart: HR/BP stable, HR/BP unstable Abdomen: soft, non-tender, feeding tube Extremities: edema Decubiti: location Critical Care - Subjective ROS Limited/Unobtainable: No Condition: critical EKG Rhythm: Sinus Rhythm FI02: 30 Vent Support Breath Rate: 18 Vent Support Mode: AC Vent Tidal Volume: 450 Sputum Amount: Scant PEEP: 5.0 PIP: 29 Tube Feeding Amount: 60 I&O: Intake and Output 05/20/19 05/21/19 19:00 07:00 Intake Total 1048.333 ml 855 ml Output Total 585 ml 425 ml Balance 463.333 ml 430 ml IV Total 698.333 ml 155 ml Tube Feeding 350 ml 700 ml Output Urine Total 385 ml 275 ml Stool Total 200 ml 150 ml ET-Tube: 7.5 ET Position: 19 Labs: Laboratory Tests Test 05/21/19 04:00 05/21/19 06:20 05/21/19 09:00 White Blood Count 9.8 K/UL (4.8-10.8) Red Blood Count 2.85 M/UL (4.20-5.40) L Hemoglobin 7.9 G/DL (12.0-16.0) L Hematocrit 25.4 % (37.0-47.0) L Mean Corpuscular Volume 89 FL (80-99) Mean Corpuscular Hemoglobin 27.8 PG (27.0-31.0) Mean Corpuscular Hemoglobin Concent 31.3 G/DL (32.0-36.0) L Red Cell Distribution Width 24.6 % (11.6-14.8) H Platelet Count 68 K/UL (150-450) L Mean Platelet Volume 6.4 FL (6.5-10.1) L Neutrophils (%) (Auto) % (45.0-75.0) Lymphocytes (%) (Auto) % (20.0-45.0) Monocytes (%) (Auto) % (1.0-10.0) Eosinophils (%) (Auto) % (0.0-3.0) Basophils (%) (Auto) % (0.0-2.0) Differential Total Cells Counted 100 Neutrophils % (Manual) 78 % (45-75) H Lymphocytes % (Manual) 12 % (20-45) L Monocytes % (Manual) 9 % (1-10) Eosinophils % (Manual) 1 % (0-3) Basophils % (Manual) 0 % (0-2) Band Neutrophils 0 % (0-8) Nucleated Red Blood Cells 2 /100 WBC Platelet Estimate Decreased L Platelet Morphology Normal Polychromasia 2+ Hypochromasia 1+ Anisocytosis 3+ Sodium Level 139 MMOL/L (136-145) Potassium Level 3.6 MMOL/L (3.5-5.1) Chloride Level 109 MMOL/L (98-107) H Carbon Dioxide Level 18 MMOL/L (21-32) L Anion Gap 12 mmol/L (5-15) Blood Urea Nitrogen 31 mg/dL (7-18) H Creatinine 1.9 MG/DL (0.55-1.30) H Estimat Glomerular Filtration Rate 27.2 mL/min (>60) Glucose Level 127 MG/DL (74-106) H Uric Acid 9.2 MG/DL (2.6-7.2) H Calcium Level 7.6 MG/DL (8.5-10.1) L Phosphorus Level 3.5 MG/DL (2.5-4.9) Magnesium Level 1.8 MG/DL (1.8-2.4) Total Bilirubin 6.8 MG/DL (0.2-1.0) H Direct Bilirubin 4.9 MG/DL (0.0-0.3) H Aspartate Amino Transf (AST/SGOT) 34 U/L (15-37) Alanine Aminotransferase (ALT/SGPT) 16 U/L (12-78) Alkaline Phosphatase 212 U/L (46-116) H Ammonia 145 umol/L (11-32) H C-Reactive Protein, Quantitative 30.4 mg/dL (0.00-0.90) H Pro-B-Type Natriuretic Peptide 559 pg/mL (0-125) H Total Protein 4.9 G/DL (6.4-8.2) L Albumin 1.0 G/DL (3.4-5.0) L Globulin 3.9 g/dL Albumin/Globulin Ratio 0.3 (1.0-2.7) L Lactic Acid Level 2.80 mmol/L (0.4-2.0) H 2.50 mmol/L (0.66-2.22) H Shireen Khan MD May 21, 2019 16:44
--- NOTE | 2019-05-21 19:00 | NUR ---
HAND-OFF: Report given to Diaz LARSEN. pt in no acute distress.
--- NOTE | 2019-05-21 19:00 | NUR ---
RESPIRATORY NOTES: Received Patient on Vent settings ACVC 18, VT 450, Fio2 30%, PEEP +5. Patient currently intubate with a 7.5 ETT at 19cm at the lip, secured with anchor fast. Patient restless. Breath sounds are bilateral clear/ diminished throughout both lung bermeo. Suctioned minimal amount of clear secretions Q2 and PRN. Vent plugged into red outlet. Alarms are on and audible. Will continue to monitor throughout the day.
[2019-05-21] MEDS: Dyna-Hex 2% Top Sol 2oz TOPIC SCH (19:41)
--- NOTE | 2019-05-21 19:59 | General Progress Note ---
Assessment/Plan Assessment/Plan: Assessment (1) Liver cirrhosis with coagulopathy ICD Codes: K74.60 - Unspecified cirrhosis of liver SNOMED: 92484707 (2) Sepsis ICD Codes: A41.9 - Sepsis, unspecified organism SNOMED: 64534328 Qualifiers: Qualified Codes: A41.9 - Sepsis, unspecified organism (3) Anasarca ICD Codes: R60.1 - Generalized edema SNOMED: 397867283, 588624735 (4) Ascites ICD Codes: R18.8 - Other ascites SNOMED: 304156630 (5) Anemia ICD Codes: D64.9 - Anemia, unspecified SNOMED: 620075373 (6) Hepatic encephalopathy ICD Codes: K72.90 - Hepatic failure, unspecified without coma SNOMED: 14468527 (7) Acute respiratory failure ICD Codes: J96.00 - Acute respiratory failure, unspecified whether with hypoxia or hypercapnia SNOMED: 49313804 (8) ETOH abuse ICD Codes: F10.10 - Alcohol abuse, uncomplicated SNOMED: 79967642 Recommendations: Lactulose cont Xifaxan neg stool ob fu H&H and transfuse prn ppi vent care periodic paracentesis Subjective Allergies: Coded Allergies: No Known Allergies (Unverified , 01/31/19) Subjective Above noted seen in ICU d/w RN (+) rectal tube and OG tube intubated non communicative Objective Last 24 Hour Vital Signs Date Time Temp Pulse Resp B/P (MAP) Pulse Ox O2 Delivery O2 Flow Rate FiO2 05/21/19 18:00 94 18 119/74 (89) 100 05/21/19 17:00 95 20 130/70 (90) 99 05/21/19 16:37 92 18 35 30 05/21/19 16:00 100 05/21/19 16:00 30 05/21/19 16:00 98.9 93 20 121/72 (88) 99 05/21/19 16:00 Mechanical Ventilator 05/21/19 15:00 30 05/21/19 14:37 98 29 30 30 05/21/19 14:00 99 24 126/74 (91) 99 05/21/19 13:00 94 25 126/74 (91) 99 05/21/19 12:47 95 27 30 30 05/21/19 12:00 Mechanical Ventilator 05/21/19 12:00 94 05/21/19 12:00 30 05/21/19 12:00 99.0 97 24 120/74 (89) 100 05/21/19 11:00 96 24 119/67 (84) 100 05/21/19 10:38 90 24 30 30 05/21/19 10:00 93 25 111/62 (78) 100 05/21/19 09:18 100 05/21/19 09:18 90 25 30 30 05/21/19 09:15 30 05/21/19 09:00 91 24 108/75 (86) 100 05/21/19 08:00 Mechanical Ventilator 05/21/19 08:00 30 05/21/19 08:00 89 05/21/19 08:00 98.3 89 20 104/72 (83) 100 05/21/19 07:14 94 29 35 30 05/21/19 07:06 92 20 112/60 (77) 100 05/21/19 06:00 89 21 104/61 (75) 100 05/21/19 05:10 96 23 35 30 05/21/19 05:00 96 20 108/64 (79) 100 05/21/19 04:00 97.5 98 23 119/62 (81) 100 05/21/19 04:00 Mechanical Ventilator 05/21/19 04:00 35 05/21/19 04:00 94 05/21/19 04:00 Mechanical Ventilator 05/21/19 03:14 97 27 35 30 05/21/19 03:00 96 25 116/62 (80) 100 05/21/19 02:00 98 25 118/63 (81) 100 05/21/19 01:00 97 24 116/78 (91) 100 05/21/19 00:43 91 20 35 30 05/21/19 00:00 35 05/21/19 00:00 97 05/21/19 00:00 97.8 95 23 118/62 (80) 100 05/21/19 00:00 Mechanical Ventilator 05/20/19 23:06 94 24 35 30 05/20/19 23:00 96 22 111/68 (82) 100 05/20/19 22:00 96 23 113/64 (80) 100 05/20/19 21:00 96 24 109/67 (81) 100 9/20/19 20:50 94 24 35 30 05/20/19 20:00 91 05/20/19 20:00 35 05/20/19 20:00 Mechanical Ventilator 05/20/19 20:00 98.5 91 23 101/56 (71) 96 Intake and Output 05/20/19 05/21/19 19:00 07:00 Intake Total 1048.333 ml 855 ml Output Total 585 ml 425 ml Balance 463.333 ml 430 ml IV Total 698.333 ml 155 ml Tube Feeding 350 ml 700 ml Output Urine Total 385 ml 275 ml Stool Total 200 ml 150 ml Laboratory Tests 05/21/19 04:00: White Blood Count 9.8, Red Blood Count 2.85L, Hemoglobin 7.9L, Hematocrit 25.4L , Mean Corpuscular Volume 89, Mean Corpuscular Hemoglobin 27.8, Mean Corpuscular Hemoglobin Concent 31.3L, Red Cell Distribution Width 24.6H, Platelet Count 68L, Mean Platelet Volume 6.4L, Neutrophils (%) (Auto) , Lymphocytes (%) (Auto) , Monocytes (%) (Auto) , Eosinophils (%) (Auto) , Basophils (%) (Auto) , Differential Total Cells Counted 100, Neutrophils % ( Manual) 78H, Lymphocytes % (Manual) 12L, Monocytes % (Manual) 9, Eosinophils % ( Manual) 1, Basophils % (Manual) 0, Band Neutrophils 0, Nucleated Red Blood Cells 2, Platelet Estimate DecreasedL, Platelet Morphology Normal, Polychromasia 2+, Hypochromasia 1+, Anisocytosis 3+, Sodium Level 139, Potassium Level 3.6, Chloride Level 109H, Carbon Dioxide Level 18L, Anion Gap 12 , Blood Urea Nitrogen 31H, Creatinine 1.9H, Estimat Glomerular Filtration Rate 27.2, Glucose Level 127H, Uric Acid 9.2H, Calcium Level 7.6L, Phosphorus Level 3.5, Magnesium Level 1.8, Total Bilirubin 6.8H, Direct Bilirubin 4.9H, Aspartate Amino Transf (AST/SGOT) 34, Alanine Aminotransferase (ALT/SGPT) 16, Alkaline Phosphatase 212H, Ammonia 145H, C-Reactive Protein, Quantitative 30.4H , Pro-B-Type Natriuretic Peptide 559H, Total Protein 4.9L, Albumin 1.0L, Globulin 3.9, Albumin/Globulin Ratio 0.3L 05/21/19 06:20: Lactic Acid Level 2.80H 05/21/19 09:00: Lactic Acid Level 2.50H 05/21/19 16:00: Lactic Acid Level 2.10H Height (Feet): 5 Height (Inches): 0.00 Weight (Pounds): 195 Objective Debilitated Woman NCAT supple CTA RR abd distended (-) Edema Mikhail Elaine MD May 21, 2019 19:59
--- NOTE | 2019-05-21 20:00 | NUR ---
NURSE NOTES: Received report from Kell LARSEN. pt in bed resting, responsive to pain and shaking. On cardiac monitor technician BP 118/76, HR 95. Ett 7.5, 19cm at lip. vent setings: AC18, VT 450, PeeP 5, Fi02 30%. secretions dalton. abdomen distended, bowel sounds hypoactive. Pt jaundiced. rectal tube to gravity with moderate drainage light brown stool. OGT connected to tube feed glucerna 1.2 @60ml/hr. no residual. RICK PICC line, drsg dry and intact. bilateral soft wrist restraints on for safety to. circulation check done. HOB kept elevated . no resp. distress. Will continue to monitor.
[2019-05-21] MEDS: Cefepime HCl 1 GM in D5W 55 ML IVPB SCH (21:23)
--- NOTE | 2019-05-21 22:00 | NUR ---
NURSE NOTES: All due medications given. Patient remains restless and agitated. Vitals remains stable, remains afebrile at this time. Rectal tube remains in place and draining to gravity. Patient given ora care. Will continue to monitor.
[2019-05-22] VITALS (24 sets, daily range): BP systolic 95–117; BP diastolic 53–68
--- NOTE | 2019-05-22 | NUR ---
NURSE NOTES: Patient continue to be restless and agitated. Rectal tube remains in place and draining well. Vitals remains stable, temperature of 98.4F (axillary). Oral care given and suctioned. Will continue to monitor.
[2019-05-22] MEDS: LORazepam Inj 2mg/ml 1ml IV PRN ×2 (00:56→06:01)
--- NOTE | 2019-05-22 02:00 | NUR ---
NURSE NOTES: Repositioned patient and given oral care. Vitals remain stable, Patient continue to be restless and agitated.
--- NOTE | 2019-05-22 04:00 | NUR ---
NURSE NOTES: Blood drawn and sent to lab. Patient cleaned and repositioned, oral care also was given. Rectal tube remains intact. Remains restless and agitated. New IV tubing hung.
[2019-05-22 05:31] LABS: HEMATOCRIT 24.5 % (37.0-47.0); HEMOGLOBIN 7.6 G/DL (12.0-16.0); MEAN CORPUSCULAR VOLUME 91 FL (80-99); PLATELET COUNT 55 K/UL (150-450); RED BLOOD COUNT 2.69 M/UL (4.20-5.40); RED CELL DISTRIBUTION WIDTH 25.6 % (11.6-14.8); WHITE BLOOD COUNT 8.7 K/UL (4.8-10.8)
--- NOTE | 2019-05-22 06:00 | NUR ---
NURSE NOTES: Repositioned patient. Remains restless and agitated. no acute events overnight.
[2019-05-22 06:02] LABS: ALANINE AMINOTRANSFERASE 16 U/L (12-78); ALBUMIN/GLOBULIN RATIO 0.2 (1.0-2.7); ALKALINE PHOSPHATASE 222 U/L (46-116); ANION GAP 11 mmol/L (5-15); ASPARTATE AMINO TRANSFERASE 28 U/L (15-37); BILIRUBIN,TOTAL 7.2 MG/DL (0.2-1.0); BLOOD UREA NITROGEN 33 mg/dL (7-18); CARBON DIOXIDE 18 MMOL/L (21-32); CHLORIDE 111 MMOL/L (98-107); CREATININE 1.8 MG/DL (0.55-1.30); POTASSIUM 3.8 MMOL/L (3.5-5.1); SODIUM 140 MMOL/L (136-145)
[2019-05-22 06:12] LABS: BILIRUBIN,DIRECT 5.5 MG/DL (0.0-0.3)
--- NOTE | 2019-05-22 07:18 | NUR ---
RESPIRATORY NOTE: received pt orally intubated with ETT 7.5, placed 19cm at the lip. ETT is secured via anchor fast with no visible redness or skin wounds. alarms are set and audible with ambu bag at bedside. will attempt to wean as ordered and cont to monitor throughout the day.
--- NOTE | 2019-05-22 07:39 | NUR ---
HAND-OFF: Report given to Ari LARSEN
--- NOTE | 2019-05-22 07:40 | NUR ---
NURSE NOTES: PT and report received from CHAVA Perales. PT received sleeping, lethargic, not agitated, on bilateral wrist restraints, no edema, bruising, or apparent signs of injury upon assessment. PT has ETT 7.5 @ 19cm at lower lip, received with vent settings AC 18, 450, 30%, peep 5. No respiratory distress noted, PT sleeping. PT running OGT Glucerna 1.2 @ 60cc/hr, minimal residual noted. PT has RICK-PICC running TKO. Bed at lowest position, bed alarm on. Will continue to monitor PT and follow through with plan of care.
[2019-05-22] MEDS: Pantoprazole Inj IVP SCH ×2 (09:31→21:18)
[2019-05-22] MEDS: Lactulose 20gm/30ml UDC NG SCH ×3 (09:31→17:49)
--- NOTE | 2019-05-22 09:40 | NUR ---
NURSE NOTES: OGTube shows no residual. Will continue with OGTube Glucerna 1.2 @ 60cc/hr. VS stable, no respiratory distress noted. Will continue to monitor.
--- NOTE | 2019-05-22 11:09 | Infectious Diseases Prog Note ---
Assessment/Plan Assessment/Plan 58 yo female with PMHx of Liver cirrhosis with recurrent ascites, HTN, ETOH abuse, DM and Hepatic encephalopathy who presented to the ED on 05/17/19 with AMS. Sepsis UA (+) CXR no sign of PNA Urine Cx 05/17/19 - K. pneumo AMS Hepatic encephalopathy ? vs Urosepsis Leukocytosis No fever Hx Gram negative bacteremia -05/03 BCx 2/ ACHROMOBACTER XYLOSOXIDANS (S Zosyn, Ceftazidime, bactrim; R cefepime; I imipenem, Levaquin); 05/05 Bcx NTD Recurrent ascites -05/05 SP paracentesis: 3.5 L removed wbc 170 (N 49%); cx Neg - -03/11/19 sp paracentesis:fluid wbc 97 (N 34%) HTN DM Liver Cirrhosis EtOH abuse Plan: Start Cefazolin #/3 - 05/22/19 SP Cefepime #5 Flagyl #5 and Vancomycin #5 -Monitor CBC/CMP, temperatures Thank you for this consult. We will continue to follow the patient with you. Subjective Allergies: Coded Allergies: No Known Allergies (Unverified , 01/31/19) Subjective Afebrile Still intubated on 30% O2 Leukocytosis resolved Objective Vital Signs Last 24 Hour Vital Signs Date Time Temp Pulse Resp B/P (MAP) Pulse Ox O2 Delivery O2 Flow Rate FiO2 05/22/19 10:00 92 18 108/64 (79) 100 05/22/19 09:43 93 19 30 05/22/19 09:00 92 17 98/62 (74) 100 05/22/19 08:00 91 05/22/19 08:00 Mechanical Ventilator 05/22/19 08:00 30 05/22/19 08:00 98.7 91 17 95/62 (73) 100 05/22/19 07:14 93 20 30 05/22/19 07:00 90 18 95/61 (72) 100 05/22/19 06:00 85 20 100/53 (69) 100 05/22/19 05:17 92 18 35 30 05/22/19 05:00 89 20 95/61 (72) 100 05/22/19 04:00 99.3 91 24 101/59 (73) 100 05/22/19 04:00 Mechanical Ventilator 05/22/19 04:00 30 05/22/19 04:00 91 05/22/19 03:00 90 20 109/65 (80) 100 05/22/19 03:00 87 18 35 30 05/22/19 02:00 92 20 100/60 (73) 100 05/22/19 01:11 93 18 35 30 05/22/19 01:00 93 18 97/58 (71) 100 05/22/19 00:00 89 05/22/19 00:00 98.4 91 19 104/59 (74) 100 05/22/19 00:00 30 05/22/19 00:00 Mechanical Ventilator 05/21/19 23:24 96 23 35 30 05/21/19 23:00 91 22 118/73 (88) 100 05/21/19 22:00 97 22 130/70 (90) 100 05/21/19 21:18 99 27 35 30 05/21/19 21:00 98 23 105/63 (77) 100 05/21/19 20:00 99.8 96 19 123/65 (84) 100 05/21/19 20:00 95 05/21/19 20:00 30 05/21/19 20:00 Mechanical Ventilator 05/21/19 19:00 95 19 123/69 (87) 100 05/21/19 18:50 97 24 35 30 05/21/19 18:00 94 18 119/74 (89) 100 05/21/19 17:00 95 20 130/70 (90) 99 05/21/19 16:37 92 18 35 30 05/21/19 16:00 100 05/21/19 16:00 30 05/21/19 16:00 98.9 93 20 121/72 (88) 99 05/21/19 16:00 Mechanical Ventilator 05/21/19 15:00 30 05/21/19 14:37 98 29 30 30 05/21/19 14:00 99 24 126/74 (91) 99 05/21/19 13:00 94 25 126/74 (91) 99 05/21/19 12:47 95 27 30 30 05/21/19 12:00 Mechanical Ventilator 05/21/19 12:00 94 05/21/19 12:00 30 05/21/19 12:00 99.0 97 24 120/74 (89) 100 Height (Feet): 5 Height (Inches): 0.00 Weight (Pounds): 195 Objective GEN: Intubated on vent 30% HEENT: NCAT, MMM, PERRL CHEST: Coarse B/L CARDIOVASCULAR: Regular rhythm and rate. S1 and S2 a ABDOMEN: Soft, Obese, + BS Laboratory Tests Test 05/21/19 16:00 05/21/19 22:00 05/22/19 04:00 05/22/19 06:30 Lactic Acid Level 2.10 mmol/L (0.4-2.0) H 3.20 mmol/L (0.4-2.0) H 3.10 mmol/L (0.4-2.0) H 3.10 mmol/L (0.66-2.22) H White Blood Count 8.7 K/UL (4.8-10.8) Red Blood Count 2.69 M/UL (4.20-5.40) L Hemoglobin 7.6 G/DL (12.0-16.0) L Hematocrit 24.5 % (37.0-47.0) L Mean Corpuscular Volume 91 FL (80-99) Mean Corpuscular Hemoglobin 28.4 PG (27.0-31.0) Mean Corpuscular Hemoglobin Concent 31.2 G/DL (32.0-36.0) L Red Cell Distribution Width 25.6 % (11.6-14.8) H Platelet Count 55 K/UL (150-450) L Mean Platelet Volume 7.6 FL (6.5-10.1) Neutrophils (%) (Auto) % (45.0-75.0) Lymphocytes (%) (Auto) % (20.0-45.0) Monocytes (%) (Auto) % (1.0-10.0) Eosinophils (%) (Auto) % (0.0-3.0) Basophils (%) (Auto) % (0.0-2.0) Differential Total Cells Counted 100 Neutrophils % (Manual) 77 % (45-75) H Lymphocytes % (Manual) 8 % (20-45) L Monocytes % (Manual) 9 % (1-10) Eosinophils % (Manual) 6 % (0-3) H Basophils % (Manual) 0 % (0-2) Band Neutrophils 0 % (0-8) Platelet Estimate Decreased L Platelet Morphology Normal Polychromasia 1+ Hypochromasia 1+ Anisocytosis 3+ Sodium Level 140 MMOL/L (136-145) Potassium Level 3.8 MMOL/L (3.5-5.1) Chloride Level 111 MMOL/L (98-107) H Carbon Dioxide Level 18 MMOL/L (21-32) L Anion Gap 11 mmol/L (5-15) Blood Urea Nitrogen 33 mg/dL (7-18) H Creatinine 1.8 MG/DL (0.55-1.30) H Estimat Glomerular Filtration Rate 29.0 mL/min (>60) Glucose Level 168 MG/DL (74-106) H Calcium Level 8.0 MG/DL (8.5-10.1) L Total Bilirubin 7.2 MG/DL (0.2-1.0) H Direct Bilirubin 5.5 MG/DL (0.0-0.3) H Aspartate Amino Transf (AST/SGOT) 28 U/L (15-37) Alanine Aminotransferase (ALT/SGPT) 16 U/L (12-78) Alkaline Phosphatase 222 U/L (46-116) H Total Protein 5.2 G/DL (6.4-8.2) L Albumin 1.0 G/DL (3.4-5.0) L Globulin 4.2 g/dL Albumin/Globulin Ratio 0.2 (1.0-2.7) L Current Medications Medications (Trade) Dose Ordered Sig/Almaz Route PRN Reason Start Time Stop Time Status Last Admin Dose Admin Cefepime HCl 1 gm/ Dextrose 55 ml @ 110 mls/hr Q24H IVPB 05/18/19 21:00 05/25/19 20:59 05/21/19 21:23 Chlorhexidine Gluconate (Shannon-Hex 2%) 1 applic DAILY@2000 TOPIC 05/18/19 20:00 06/17/19 19:59 05/21/19 19:41 Dextrose (Dextrose 50%) 25 ml Q30M PRN IV Hypoglycemia 05/17/19 21:45 06/16/19 21:44 Dextrose (Dextrose 50%) 50 ml Q30M PRN IV Hypoglycemia 05/17/19 21:45 06/16/19 21:44 Haloperidol Lactate (Haldol) 5 mg EVERY HOUR PRN IVPB Agitation 05/19/19 10:00 06/18/19 09:59 05/21/19 21:23 Lactulose (Cephulac) 10 gm THREE TIMES A DAY NG 05/20/19 13:00 06/17/19 10:29 05/22/19 09:31 Lorazepam (Ativan 2mg/ml 1ml) 0.5 mg Q4H PRN IV For Anxiety 05/17/19 21:45 05/24/19 21:44 05/22/19 06:01 Metronidazole 100 ml @ 100 mls/hr Q6H IVPB 05/18/19 08:00 05/25/19 07:59 05/22/19 09:31 Morphine Sulfate (Morphine Sulfate) 1 mg Q4H PRN IVP For Pain 05/17/19 21:45 05/24/19 21:44 05/21/19 23:36 Ondansetron HCl (Zofran) 4 mg Q6H PRN IVP Nausea & Vomiting 05/17/19 21:45 06/16/19 21:44 05/21/19 15:07 Pantoprazole (Protonix) 40 mg EVERY 12 HOURS IVP 05/18/19 21:00 06/17/19 20:59 05/22/19 09:31 Rifaximin (Xifaxan) 550 mg EVERY 12 HOURS NG 05/18/19 21:00 05/25/19 20:59 05/22/19 09:32 Vancomycin HCl (Vanco rx to dose) 1 ea DAILY PRN MISC Per rx protocol 05/18/19 11:15 06/17/19 11:14 Vincent Edward MD May 22, 2019 11:09
--- NOTE | 2019-05-22 11:26 | NUR ---
NURSE NOTES: PT BP 98/62, RR 16 @ 100%, HR 92. No s/s of respiratory distress. Will continue to monitor PT.
--- NOTE | 2019-05-22 11:31 | Nephrology Progress Note ---
Assessment/Plan Problem List: (1) ATN (acute tubular necrosis) (2) Sepsis (3) Acute respiratory failure (4) Acute on chronic alcoholic liver disease Assessment: worsening bili (5) Anemia Assessment Renal failure- Acute On May 09, 2019 normal renal parameters Severe Anemia, Acute on chronic- Acute part from right groin attempted line insertion Severe HypoAlbuminemia, Cirrhosis, ALD, Ascites Sepsis- High lactic Acid Acute respiratory failure Previous gram negative bacteremia / Sepsis Plan Hydrate- K supplement Antibiotics Monitor renal parameters avoid nephrotoxics transfuse as needed- per orders discussed with RN Subjective ROS Limited/Unobtainable: Yes Objective Objective Last 24 Hour Vital Signs Date Time Temp Pulse Resp B/P (MAP) Pulse Ox O2 Delivery O2 Flow Rate FiO2 05/22/19 11:00 93 17 98/62 (74) 100 05/22/19 10:00 92 18 108/64 (79) 100 05/22/19 09:43 93 19 30 05/22/19 09:00 92 17 98/62 (74) 100 05/22/19 08:00 91 05/22/19 08:00 Mechanical Ventilator 05/22/19 08:00 30 05/22/19 08:00 98.7 91 17 95/62 (73) 100 05/22/19 07:14 93 20 30 05/22/19 07:00 90 18 95/61 (72) 100 05/22/19 06:00 85 20 100/53 (69) 100 05/22/19 05:17 92 18 35 30 05/22/19 05:00 89 20 95/61 (72) 100 05/22/19 04:00 99.3 91 24 101/59 (73) 100 05/22/19 04:00 Mechanical Ventilator 05/22/19 04:00 30 05/22/19 04:00 91 05/22/19 03:00 90 20 109/65 (80) 100 05/22/19 03:00 87 18 35 30 05/22/19 02:00 92 20 100/60 (73) 100 05/22/19 01:11 93 18 35 30 05/22/19 01:00 93 18 97/58 (71) 100 05/22/19 00:00 89 05/22/19 00:00 98.4 91 19 104/59 (74) 100 05/22/19 00:00 30 05/22/19 00:00 Mechanical Ventilator 05/21/19 23:24 96 23 35 30 05/21/19 23:00 91 22 118/73 (88) 100 05/21/19 22:00 97 22 130/70 (90) 100 05/21/19 21:18 99 27 35 30 05/21/19 21:00 98 23 105/63 (77) 100 05/21/19 20:00 99.8 96 19 123/65 (84) 100 05/21/19 20:00 95 05/21/19 20:00 30 05/21/19 20:00 Mechanical Ventilator 05/21/19 19:00 95 19 123/69 (87) 100 05/21/19 18:50 97 24 35 30 05/21/19 18:00 94 18 119/74 (89) 100 05/21/19 17:00 95 20 130/70 (90) 99 05/21/19 16:37 92 18 35 30 05/21/19 16:00 100 05/21/19 16:00 30 05/21/19 16:00 98.9 93 20 121/72 (88) 99 05/21/19 16:00 Mechanical Ventilator 05/21/19 15:00 30 05/21/19 14:37 98 29 30 30 05/21/19 14:00 99 24 126/74 (91) 99 05/21/19 13:00 94 25 126/74 (91) 99 05/21/19 12:47 95 27 30 30 05/21/19 12:00 Mechanical Ventilator 05/21/19 12:00 94 05/21/19 12:00 30 05/21/19 12:00 99.0 97 24 120/74 (89) 100 Intake and Output 05/21/19 05/22/19 18:59 06:59 Intake Total 860 ml 945 ml Output Total 335 ml 255 ml Balance 525 ml 690 ml Free Water 70 ml IV Total 200 ml 155 ml Tube Feeding 660 ml 720 ml Output Urine Total 295 ml 255 ml Emesis 40 ml # Bowel Movements 100 Laboratory Tests 05/21/19 16:00: Lactic Acid Level 2.10H 05/21/19 22:00: Lactic Acid Level 3.20H 05/22/19 04:00: Lactic Acid Level 3.10H, White Blood Count 8.7, Red Blood Count 2.69L, Hemoglobin 7.6L, Hematocrit 24.5L, Mean Corpuscular Volume 91, Mean Corpuscular Hemoglobin 28.4, Mean Corpuscular Hemoglobin Concent 31.2L, Red Cell Distribution Width 25.6H, Platelet Count 55L, Mean Platelet Volume 7.6, Neutrophils (%) (Auto) , Lymphocytes (%) (Auto) , Monocytes (%) (Auto) , Eosinophils (%) (Auto) , Basophils (%) (Auto) , Differential Total Cells Counted 100, Neutrophils % (Manual) 77H, Lymphocytes % (Manual) 8L, Monocytes % (Manual) 9, Eosinophils % (Manual) 6H, Basophils % (Manual) 0, Band Neutrophils 0, Platelet Estimate DecreasedL, Platelet Morphology Normal, Polychromasia 1+, Hypochromasia 1+, Anisocytosis 3+, Sodium Level 140, Potassium Level 3.8, Chloride Level 111H, Carbon Dioxide Level 18L, Anion Gap 11, Blood Urea Nitrogen 33H, Creatinine 1.8H, Estimat Glomerular Filtration Rate 29.0, Glucose Level 168H, Calcium Level 8.0L, Total Bilirubin 7.2H, Direct Bilirubin 5.5H, Aspartate Amino Transf (AST/SGOT) 28, Alanine Aminotransferase (ALT/SGPT) 16, Alkaline Phosphatase 222H, Total Protein 5.2L, Albumin 1.0L, Globulin 4.2, Albumin/Globulin Ratio 0.2L 05/22/19 06:30: Lactic Acid Level 3.10H Height (Feet): 5 Height (Inches): 0.00 Weight (Pounds): 195 General Appearance: no apparent distress EENT: other - vented Cardiovascular: tachycardia Respiratory/Chest: decreased breath sounds Abdomen: distended Objective no change Jovany Byers MD May 22, 2019 11:31
--- NOTE | 2019-05-22 11:32 | NUR ---
NURSE NOTES: RT Bettye attempted to wean PT, wean unsuccessful. PT place back on AC 18, TV 450, 30%, peep 5. No respiratory distress noted, VS stable, will continue to monitor PT.
--- NOTE | 2019-05-22 11:33 | NUR ---
RESPIRATORY NOTE: attempted to wean pt but pt still sightly sedated and breathing became irregular. RN notified Addendum: 05/22/19 at 1133 by FREDIS MCCRACKEN RT placed back on AC settings
--- NOTE | 2019-05-22 14:08 | Surgery Progress Note ---
Surgery Progress Note Subjective Procedure Performed sepsis Additional Comments ill appearing in ICU labs noted jaundice Objective Last 24 Hour Vital Signs Date Time Temp Pulse Resp B/P (MAP) Pulse Ox O2 Delivery O2 Flow Rate FiO2 05/22/19 13:00 95 19 110/65 (80) 100 05/22/19 12:43 95 19 30 05/22/19 12:00 97.8 94 18 108/65 (79) 100 05/22/19 12:00 91 05/22/19 12:00 Mechanical Ventilator 05/22/19 12:00 30 05/22/19 11:31 95 19 30 05/22/19 11:00 93 17 98/62 (74) 100 05/22/19 10:00 92 18 108/64 (79) 100 05/22/19 09:43 93 19 30 05/22/19 09:00 92 17 98/62 (74) 100 05/22/19 08:00 91 05/22/19 08:00 Mechanical Ventilator 05/22/19 08:00 30 05/22/19 08:00 98.7 91 17 95/62 (73) 100 05/22/19 07:14 93 20 30 05/22/19 07:00 90 18 95/61 (72) 100 05/22/19 06:00 85 20 100/53 (69) 100 05/22/19 05:17 92 18 35 30 05/22/19 05:00 89 20 95/61 (72) 100 05/22/19 04:00 99.3 91 24 101/59 (73) 100 05/22/19 04:00 Mechanical Ventilator 05/22/19 04:00 30 05/22/19 04:00 91 05/22/19 03:00 90 20 109/65 (80) 100 05/22/19 03:00 87 18 35 30 05/22/19 02:00 92 20 100/60 (73) 100 05/22/19 01:11 93 18 35 30 05/22/19 01:00 93 18 97/58 (71) 100 05/22/19 00:00 89 05/22/19 00:00 98.4 91 19 104/59 (74) 100 05/22/19 00:00 30 05/22/19 00:00 Mechanical Ventilator 05/21/19 23:24 96 23 35 30 05/21/19 23:00 91 22 118/73 (88) 100 05/21/19 22:00 97 22 130/70 (90) 100 05/21/19 21:18 99 27 35 30 05/21/19 21:00 98 23 105/63 (77) 100 05/21/19 20:00 99.8 96 19 123/65 (84) 100 05/21/19 20:00 95 05/21/19 20:00 30 05/21/19 20:00 Mechanical Ventilator 05/21/19 19:00 95 19 123/69 (87) 100 05/21/19 18:50 97 24 35 30 05/21/19 18:00 94 18 119/74 (89) 100 05/21/19 17:00 95 20 130/70 (90) 99 05/21/19 16:37 92 18 35 30 05/21/19 16:00 100 05/21/19 16:00 30 05/21/19 16:00 98.9 93 20 121/72 (88) 99 05/21/19 16:00 Mechanical Ventilator 05/21/19 15:00 30 05/21/19 14:37 98 29 30 30 I&O Intake and Output 05/21/19 05/22/19 18:59 06:59 Intake Total 860 ml 945 ml Output Total 335 ml 255 ml Balance 525 ml 690 ml Free Water 70 ml IV Total 200 ml 155 ml Tube Feeding 660 ml 720 ml Output Urine Total 295 ml 255 ml Emesis 40 ml # Bowel Movements 100 Dressing: other Wound: other Drains: other Cardiovascular: RSR Respiratory: decreased breath sounds Abdomen: soft, present bowel sounds, non-distended Extremities: no cyanosis Laboratory Tests Test 05/21/19 16:00 05/21/19 22:00 05/22/19 04:00 05/22/19 06:30 Lactic Acid Level 2.10 mmol/L (0.4-2.0) H 3.20 mmol/L (0.4-2.0) H 3.10 mmol/L (0.4-2.0) H 3.10 mmol/L (0.66-2.22) H White Blood Count 8.7 K/UL (4.8-10.8) Red Blood Count 2.69 M/UL (4.20-5.40) L Hemoglobin 7.6 G/DL (12.0-16.0) L Hematocrit 24.5 % (37.0-47.0) L Mean Corpuscular Volume 91 FL (80-99) Mean Corpuscular Hemoglobin 28.4 PG (27.0-31.0) Mean Corpuscular Hemoglobin Concent 31.2 G/DL (32.0-36.0) L Red Cell Distribution Width 25.6 % (11.6-14.8) H Platelet Count 55 K/UL (150-450) L Mean Platelet Volume 7.6 FL (6.5-10.1) Neutrophils (%) (Auto) % (45.0-75.0) Lymphocytes (%) (Auto) % (20.0-45.0) Monocytes (%) (Auto) % (1.0-10.0) Eosinophils (%) (Auto) % (0.0-3.0) Basophils (%) (Auto) % (0.0-2.0) Differential Total Cells Counted 100 Neutrophils % (Manual) 77 % (45-75) H Lymphocytes % (Manual) 8 % (20-45) L Monocytes % (Manual) 9 % (1-10) Eosinophils % (Manual) 6 % (0-3) H Basophils % (Manual) 0 % (0-2) Band Neutrophils 0 % (0-8) Platelet Estimate Decreased L Platelet Morphology Normal Polychromasia 1+ Hypochromasia 1+ Anisocytosis 3+ Sodium Level 140 MMOL/L (136-145) Potassium Level 3.8 MMOL/L (3.5-5.1) Chloride Level 111 MMOL/L (98-107) H Carbon Dioxide Level 18 MMOL/L (21-32) L Anion Gap 11 mmol/L (5-15) Blood Urea Nitrogen 33 mg/dL (7-18) H Creatinine 1.8 MG/DL (0.55-1.30) H Estimat Glomerular Filtration Rate 29.0 mL/min (>60) Glucose Level 168 MG/DL (74-106) H Calcium Level 8.0 MG/DL (8.5-10.1) L Total Bilirubin 7.2 MG/DL (0.2-1.0) H Direct Bilirubin 5.5 MG/DL (0.0-0.3) H Aspartate Amino Transf (AST/SGOT) 28 U/L (15-37) Alanine Aminotransferase (ALT/SGPT) 16 U/L (12-78) Alkaline Phosphatase 222 U/L (46-116) H Total Protein 5.2 G/DL (6.4-8.2) L Albumin 1.0 G/DL (3.4-5.0) L Globulin 4.2 g/dL Albumin/Globulin Ratio 0.2 (1.0-2.7) L Plan Problems: (1) Sacral decubitus ulcer Assessment & Plan: Pt presented on admission with icteric sclerae and skin. Moisture intertrigo Madhu/left abd folds.(1.5cm long). Moisture intertrigo R groin(8.5cm) slit noted with small amt bleeding. Mons pubis,labia majora and medial aspects of both upper thigh erythematous . Partial thickness wound noted to L thoracic. Base of wound is moist and viable. Edges flat and adherent to base of wound.No exudate noted. (L) 0.6cm x (W)0.8cm. Non-blanchable erythema sacrum,R and L buttocks with scattered shearing .Full thickness pressure injury noted to sacrococcygeal area. Base of wound is steve with small amt slough noted in center.(L) 0.7cm x (W)0.3cm. Area around wound is erythematous non-blanchable with shearing . Full thickness pressure injury R buttocks . Base of wound is moist, with Slough in center.Surrounding area erythematous and denuded. Evolving serous blister L heel.Base of wound is fluctuant with delineated,red margins.(L)3.5cm x (W)5.5cm. Periwound without erythema or fluctuance. R heel firm and blanchable. Tx.Plan: Apply Triad Paste to Sacrum and R buttocks. Cover wounds with Optifoam drsg. Change every 3 days and PRN. Apply Triad Paste to abd folds, R groin,Mons pubis, medial aspects of both upper thighs with each perineal care. Apply Optifoam drsg L thoracic wound. Cover with Optifoam drsg. Change every 3 days and prn. Apply Cavilon Skin Barrier to both heels. Cover each heel with Optifoam drsg. Change every 7 days and prn. APM/CHRISSY Mattress. Reposition at least every 2hours or as tolerated. Off-load heels with pillow (2) Liver cirrhosis Assessment & Plan: DAILY ESTIMATED NEEDS: Needs based on Cirrhosis, Critical care, sepsis/ 58kg adj 22-30 kcals/kg 6115-4835 total kcals 1.2-2 g protein/kg 70-116 g total protein 20-25 mL/kg 3201-6686 total fluid mLs NUTRITION DIAGNOSIS: * Swallowing difficulty R/T respiratory status as evidenced by pt orally intubated, NPO at this time * Altered nutrition related lab values R/T cirrhosis, sepsis, clinical condition as evidenced by elev T bili (5.5), elev NH3 (152), elev LA (6.7), elev creat (2.4). CURRENT TF:NPO PO DIET RECOMMENDATIONS: DIVISION LEADER eval post extubation -> LOW NA ENTERAL NUTRITION RECOMMENDATIONS: Glucerna 1.2 @ 55ml/hr x 24 hrs to provide 1320ml, 1584kcal, 79g prot, 1063ml free water * Rec Glucerna 1.2 to maintain good BG control: h/o DM * As medically appropriate, initiate Glucerna 1.2 @ 25ml/hr x 6 hrs * Advance 10ml q 4-6 hrs as tolerated to goal rate. * HOB over 30 degrees/ water flush per MD. ADDITIONAL RECOMMENDATIONS: * Calibrated bedscale wt for accurate CBW * W/ TF, monitor need for NISS: h/o DM * F/up w/ wound eval: add Miquel 1pkt BID + VIt C 250mg QD * Monitor lytes, replete as needed . (3) Acute on chronic alcoholic liver disease (4) Sepsis Assessment & Plan: Restore insufficiency, leukocytosis, anemia, lactic acidosis , liver insufficiency, sepsis Right line removed and pressure held until hemostasis obtained. Currently no significant hematoma or post injury comp occasion identified. Site clean dry. Left line in place and stable. Will recommend PICC line so femoral line can be removed and more definitive long -term access can be obtained given patient's current medical condition and likelihood for prolonged hospitalization stay US noted and okay paracentesis PICC Continue IV antibiotics We will monitor and follow with recommendations Ultrasound ordered Efrain Whitaker May 22, 2019 14:08
--- NOTE | 2019-05-22 14:39 | NUR ---
NURSE NOTES: PT friend visiting at bedside. VS stable, no S/S of respiratory distress. Will continue to monitor PT.
--- NOTE | 2019-05-22 16:13 | General Progress Note ---
Assessment/Plan Assessment/Plan: Assessment (1) Liver cirrhosis with coagulopathy ICD Codes: K74.60 - Unspecified cirrhosis of liver SNOMED: 84457842 (2) Sepsis ICD Codes: A41.9 - Sepsis, unspecified organism SNOMED: 85094875 Qualifiers: Qualified Codes: A41.9 - Sepsis, unspecified organism (3) Anasarca ICD Codes: R60.1 - Generalized edema SNOMED: 110749997, 003777115 (4) Ascites ICD Codes: R18.8 - Other ascites SNOMED: 298716829 (5) Anemia ICD Codes: D64.9 - Anemia, unspecified SNOMED: 396773080 (6) Hepatic encephalopathy ICD Codes: K72.90 - Hepatic failure, unspecified without coma SNOMED: 31285732 (7) Acute respiratory failure ICD Codes: J96.00 - Acute respiratory failure, unspecified whether with hypoxia or hypercapnia SNOMED: 29179425 (8) ETOH abuse ICD Codes: F10.10 - Alcohol abuse, uncomplicated SNOMED: 40612364 Recommendations: Lactulose for encephalopathy cont Xifaxan neg stool ob fu H&H and transfuse prn ppi vent care periodic paracentesis Subjective Allergies: Coded Allergies: No Known Allergies (Unverified , 01/31/19) Subjective Above noted seen in ICU d/w RN (+) rectal tube and OG tube intubated non communicative Objective Last 24 Hour Vital Signs Date Time Temp Pulse Resp B/P (MAP) Pulse Ox O2 Delivery O2 Flow Rate FiO2 05/22/19 15:16 97 19 30 05/22/19 15:00 95 19 112/67 (82) 100 05/22/19 14:00 97 21 108/61 (77) 100 05/22/19 13:00 95 19 110/65 (80) 100 05/22/19 12:43 95 19 30 05/22/19 12:00 97.8 94 18 108/65 (79) 100 05/22/19 12:00 91 05/22/19 12:00 Mechanical Ventilator 05/22/19 12:00 30 05/22/19 11:31 95 19 30 05/22/19 11:00 93 17 98/62 (74) 100 05/22/19 10:00 92 18 108/64 (79) 100 05/22/19 09:43 93 19 30 05/22/19 09:00 92 17 98/62 (74) 100 05/22/19 08:00 91 05/22/19 08:00 Mechanical Ventilator 05/22/19 08:00 30 05/22/19 08:00 98.7 91 17 95/62 (73) 100 05/22/19 07:14 93 20 30 05/22/19 07:00 90 18 95/61 (72) 100 05/22/19 06:00 85 20 100/53 (69) 100 05/22/19 05:17 92 18 35 30 05/22/19 05:00 89 20 95/61 (72) 100 05/22/19 04:00 99.3 91 24 101/59 (73) 100 05/22/19 04:00 Mechanical Ventilator 05/22/19 04:00 30 05/22/19 04:00 91 05/22/19 03:00 90 20 109/65 (80) 100 05/22/19 03:00 87 18 35 30 05/22/19 02:00 92 20 100/60 (73) 100 05/22/19 01:11 93 18 35 30 05/22/19 01:00 93 18 97/58 (71) 100 05/22/19 00:00 89 05/22/19 00:00 98.4 91 19 104/59 (74) 100 05/22/19 00:00 30 05/22/19 00:00 Mechanical Ventilator 05/21/19 23:24 96 23 35 30 05/21/19 23:00 91 22 118/73 (88) 100 05/21/19 22:00 97 22 130/70 (90) 100 05/21/19 21:18 99 27 35 30 05/21/19 21:00 98 23 105/63 (77) 100 05/21/19 20:00 99.8 96 19 123/65 (84) 100 05/21/19 20:00 95 05/21/19 20:00 30 05/21/19 20:00 Mechanical Ventilator 05/21/19 19:00 95 19 123/69 (87) 100 05/21/19 18:50 97 24 35 30 05/21/19 18:00 94 18 119/74 (89) 100 05/21/19 17:00 95 20 130/70 (90) 99 05/21/19 16:37 92 18 35 30 Intake and Output 05/21/19 05/22/19 19:00 07:00 Intake Total 860 ml 945 ml Output Total 340 ml 245 ml Balance 520 ml 700 ml Free Water 70 ml IV Total 200 ml 155 ml Tube Feeding 660 ml 720 ml Output Urine Total 300 ml 245 ml Emesis 40 ml # Bowel Movements 100 Laboratory Tests 05/21/19 22:00: Lactic Acid Level 3.20H 05/22/19 04:00: Lactic Acid Level 3.10H, White Blood Count 8.7, Red Blood Count 2.69L, Hemoglobin 7.6L, Hematocrit 24.5L, Mean Corpuscular Volume 91, Mean Corpuscular Hemoglobin 28.4, Mean Corpuscular Hemoglobin Concent 31.2L, Red Cell Distribution Width 25.6H, Platelet Count 55L, Mean Platelet Volume 7.6, Neutrophils (%) (Auto) , Lymphocytes (%) (Auto) , Monocytes (%) (Auto) , Eosinophils (%) (Auto) , Basophils (%) (Auto) , Differential Total Cells Counted 100, Neutrophils % (Manual) 77H, Lymphocytes % (Manual) 8L, Monocytes % (Manual) 9, Eosinophils % (Manual) 6H, Basophils % (Manual) 0, Band Neutrophils 0, Platelet Estimate DecreasedL, Platelet Morphology Normal, Polychromasia 1+, Hypochromasia 1+, Anisocytosis 3+, Sodium Level 140, Potassium Level 3.8, Chloride Level 111H, Carbon Dioxide Level 18L, Anion Gap 11, Blood Urea Nitrogen 33H, Creatinine 1.8H, Estimat Glomerular Filtration Rate 29.0, Glucose Level 168H, Calcium Level 8.0L, Total Bilirubin 7.2H, Direct Bilirubin 5.5H, Aspartate Amino Transf (AST/SGOT) 28, Alanine Aminotransferase (ALT/SGPT) 16, Alkaline Phosphatase 222H, Total Protein 5.2L, Albumin 1.0L, Globulin 4.2, Albumin/Globulin Ratio 0.2L 05/22/19 06:30: Lactic Acid Level 3.10H Height (Feet): 5 Height (Inches): 0.00 Weight (Pounds): 195 Objective Debilitated Woman NCAT supple CTA RR abd distended (-) Edema Mikhail Elaine MD May 22, 2019 16:13
--- NOTE | 2019-05-22 16:50 | NUR ---
NURSE NOTES: PT BP 111/64; 02 sat 100%, RR 23, HR 95, VS stable, no S/S of respiratory distress, PT was cleaned, total care given, wiped down, kept clean and dry, linens changed. Bed at lowest position. Bilateral wrist restraints still in place with PT for safety, no signs of injury bilaterally, radial pulses present, no signs of edema or bruising. Will continue to monitor PT.
--- NOTE | 2019-05-22 17:28 | Internal Med Progress Note ---
Subjective Date of Service: May 22, 2019 Physician Name Benjamin,Jose Attending Physician Goldy Amador MD Current Medications Medications (Trade) Dose Ordered Sig/Almaz Route PRN Reason Start Time Stop Time Status Last Admin Dose Admin Cefazolin Sodium 1 gm/Sodium Chloride 55 ml @ 110 mls/hr Q12HR IVPB 05/22/19 21:00 05/29/19 20:59 Chlorhexidine Gluconate (Shannon-Hex 2%) 1 applic DAILY@2000 TOPIC 05/18/19 20:00 06/17/19 19:59 05/21/19 19:41 Dextrose (Dextrose 50%) 25 ml Q30M PRN IV Hypoglycemia 05/17/19 21:45 06/16/19 21:44 Dextrose (Dextrose 50%) 50 ml Q30M PRN IV Hypoglycemia 05/17/19 21:45 06/16/19 21:44 Haloperidol Lactate (Haldol) 5 mg EVERY HOUR PRN IVPB Agitation 05/19/19 10:00 06/18/19 09:59 05/21/19 21:23 Lactulose (Cephulac) 10 gm THREE TIMES A DAY NG 05/20/19 13:00 06/17/19 10:29 05/22/19 13:07 Lorazepam (Ativan 2mg/ml 1ml) 0.5 mg Q4H PRN IV For Anxiety 05/17/19 21:45 05/24/19 21:44 05/22/19 06:01 Morphine Sulfate (Morphine Sulfate) 1 mg Q4H PRN IVP For Pain 05/17/19 21:45 05/24/19 21:44 05/21/19 23:36 Ondansetron HCl (Zofran) 4 mg Q6H PRN IVP Nausea & Vomiting 05/17/19 21:45 06/16/19 21:44 05/21/19 15:07 Pantoprazole (Protonix) 40 mg EVERY 12 HOURS IVP 05/18/19 21:00 06/17/19 20:59 05/22/19 09:31 Rifaximin (Xifaxan) 550 mg EVERY 12 HOURS NG 05/18/19 21:00 05/25/19 20:59 05/22/19 09:32 Allergies: Coded Allergies: No Known Allergies (Unverified , 01/31/19) ROS Limited/Unobtainable: Yes Subjective 58 YO F admitted with respiratory failure and presumed septic shock. Now UTI. Cover for Int [facility]-Dr Amador. Intubated and sedated. ICU. S/P paracentesis 05/19 Objective Last Vital Signs Date Time Temp Pulse Resp B/P (MAP) Pulse Ox O2 Delivery O2 Flow Rate FiO2 05/22/19 17:10 96 21 30 05/22/19 16:00 98.9 111/64 (80) 100 05/22/19 16:00 Mechanical Ventilator Laboratory Tests Test 05/21/19 22:00 05/22/19 04:00 05/22/19 06:30 Lactic Acid Level 3.20 mmol/L (0.4-2.0) H 3.10 mmol/L (0.4-2.0) H 3.10 mmol/L (0.66-2.22) H White Blood Count 8.7 K/UL (4.8-10.8) Red Blood Count 2.69 M/UL (4.20-5.40) L Hemoglobin 7.6 G/DL (12.0-16.0) L Hematocrit 24.5 % (37.0-47.0) L Mean Corpuscular Volume 91 FL (80-99) Mean Corpuscular Hemoglobin 28.4 PG (27.0-31.0) Mean Corpuscular Hemoglobin Concent 31.2 G/DL (32.0-36.0) L Red Cell Distribution Width 25.6 % (11.6-14.8) H Platelet Count 55 K/UL (150-450) L Mean Platelet Volume 7.6 FL (6.5-10.1) Neutrophils (%) (Auto) % (45.0-75.0) Lymphocytes (%) (Auto) % (20.0-45.0) Monocytes (%) (Auto) % (1.0-10.0) Eosinophils (%) (Auto) % (0.0-3.0) Basophils (%) (Auto) % (0.0-2.0) Differential Total Cells Counted 100 Neutrophils % (Manual) 77 % (45-75) H Lymphocytes % (Manual) 8 % (20-45) L Monocytes % (Manual) 9 % (1-10) Eosinophils % (Manual) 6 % (0-3) H Basophils % (Manual) 0 % (0-2) Band Neutrophils 0 % (0-8) Platelet Estimate Decreased L Platelet Morphology Normal Polychromasia 1+ Hypochromasia 1+ Anisocytosis 3+ Sodium Level 140 MMOL/L (136-145) Potassium Level 3.8 MMOL/L (3.5-5.1) Chloride Level 111 MMOL/L (98-107) H Carbon Dioxide Level 18 MMOL/L (21-32) L Anion Gap 11 mmol/L (5-15) Blood Urea Nitrogen 33 mg/dL (7-18) H Creatinine 1.8 MG/DL (0.55-1.30) H Estimat Glomerular Filtration Rate 29.0 mL/min (>60) Glucose Level 168 MG/DL (74-106) H Calcium Level 8.0 MG/DL (8.5-10.1) L Total Bilirubin 7.2 MG/DL (0.2-1.0) H Direct Bilirubin 5.5 MG/DL (0.0-0.3) H Aspartate Amino Transf (AST/SGOT) 28 U/L (15-37) Alanine Aminotransferase (ALT/SGPT) 16 U/L (12-78) Alkaline Phosphatase 222 U/L (46-116) H Total Protein 5.2 G/DL (6.4-8.2) L Albumin 1.0 G/DL (3.4-5.0) L Globulin 4.2 g/dL Albumin/Globulin Ratio 0.2 (1.0-2.7) L Intake and Output 05/21/19 05/22/19 19:00 07:00 Intake Total 860 ml 945 ml Output Total 340 ml 245 ml Balance 520 ml 700 ml Free Water 70 ml IV Total 200 ml 155 ml Tube Feeding 660 ml 720 ml Output Urine Total 300 ml 245 ml Emesis 40 ml # Bowel Movements 100 Objective PHYSICAL EXAMINATION: GENERAL: The patient is a well-developed and well-nourished obese female, who is intubated and sedated. HEENT: Eyes, pupils are equal and responsive to light and accommodation. Extraocular movements are intact. NECK: Supple without lymphadenopathy. CHEST: Mech vent; Coarse upper breath sounds, otherwise without wheezes or rales. CARDIOVASCULAR: Regular rhythm, rate. S1, S2 normal without murmurs, rubs, or gallops. ABDOMEN: Soft, distended with decreased bowel sounds. No evidence of hepatosplenomegaly. Currently, no rebound or guarding noted. EXTREMITIES: Negative for clubbing, cyanosis, or edema. RECTAL/GENITAL: Not performed. NEUROLOGICAL: Unable to assess. Assessment/Plan Assessment/Plan ASSESSMENT: This is a 58-year-old female. 1. Respiratory failure. 2. Urinary tract infection=klebsiella pneumoniae 3. Probable sepsis. 4. Probable septic shock. 5. Alcoholic cirrhosis of the liver. 6. Hypertension. 7. Diabetes type 2. 8. Ascites. 9. Hypercholesterolemia. TREATMENT: 1. Respiratory failure. A Pulmonary consultation has been obtained with Dr. Shireen Khan. The patient is currently intubated and sedated in the intensive care unit. We will follow recommendations of Pulmonary. 2. Urinary tract infection. An Infectious Disease consultation has been obtained with . The patient has been placed empirically on cefepime, flagyl and vancomycin. Urine culture=gram neg elinor 3. Probable sepsis. 4. Septic shock. 5. Alcoholic cirrhosis of liver. A Gastroenterology consultation has been obtained with Dr. Jon Torres. S/P paracentesis 05/19/19 6. Hypertension. The patient is currently hypotensive. Hold all antihypertensive medications. 7. Diabetes type 2. A NovoLog sliding scale has been instituted. 8. Ascites, as above. A Gastroenterology consultation has been obtained with Dr. Jon Torres. S/P paracentesis 05/19/19 9. Hypercholesterolemia. Jose Benjamin MD May 22, 2019 17:28
--- NOTE | 2019-05-22 18:58 | NUR ---
RESPIRATORY NOTE: Received pt on AC 18, 450VT, 30%, PEEP +5. Pt is intubated w/ ETT 7.5 @ 19cm lipline, secured by anchorfast. Pt currently asleep, responds to stimuli. Both hands on soft-restraints to prevent pt from self-extubation. B/S david. clear/diminished, sxn minimal amounts of thick/thin, pale-yellow secretions. Vent plugged into red outlet, ambubag at bedside. Pt in no apparent distress at this time. Will continue to monitor pt.
--- NOTE | 2019-05-22 19:25 | NUR ---
HAND-OFF: Report and PT given to CHAVA Durand.
--- NOTE | 2019-05-22 19:26 | NUR ---
NURSE NOTES: Endorsement received from CHAVA Chapman. Patient drowsy. Orally intubated with ETT 7.5, 19 lipline. AC 18 450 PEEP 5 30%. With OGT, receiving Glucerna 1.2 60 ml/hr. No residual noted. With left upper arm PICC, flushing well. Draper catheter in place, noted to be oliguric. As per morning shift, previously notified. With rectal tube in place. SCDs in place. On P200 mattress. Call light within reach. Head of bed elevated. Bed locked and in low position. Bed alarm on. Call light within reach.
[2019-05-22] MEDS: Dyna-Hex 2% Top Sol 2oz TOPIC SCH (20:27)
[2019-05-22] MEDS ORDERED: ceFAZolin 1gm/50ml Premix 50 ML IV SCH (21:00)
--- NOTE | 2019-05-22 21:00 | NUR ---
NURSE NOTES: Patient asleep, arousable per pain. Drowsy. Afebrile. No shortness of breath.
[2019-05-22] MEDS: ceFAZolin sod 1 GM in NS 55 ML IVPB SCH (21:18)
--- NOTE | 2019-05-22 23:00 | NUR ---
NURSE NOTES: Patient still with bilateral soft wrist restraints for attempting to pull out tubes. Skin warm and dry, intact with peripheral pulses present.
[2019-05-23] VITALS (24 sets, daily range): BP systolic 104–121; BP diastolic 59–71
--- NOTE | 2019-05-23 01:00 | NUR ---
NURSE NOTES: Repositioned. Tolerating feeding. Vital signs stable.
--- NOTE | 2019-05-23 03:00 | NUR ---
NURSE NOTES: Bed bath, oral care, change of linens done. Tolerated activity
--- NOTE | 2019-05-23 05:00 | NUR ---
NURSE NOTES: Patient asleep. No signs of pain or discomfort. Repositioned patient
[2019-05-23 05:09] LABS: HEMATOCRIT 25.7 % (37.0-47.0); HEMOGLOBIN 7.8 G/DL (12.0-16.0); MEAN CORPUSCULAR VOLUME 93 FL (80-99); PLATELET COUNT 48 K/UL (150-450); RED BLOOD COUNT 2.77 M/UL (4.20-5.40); RED CELL DISTRIBUTION WIDTH 26.4 % (11.6-14.8); WHITE BLOOD COUNT 11.9 K/UL (4.8-10.8)
[2019-05-23 05:53] LABS: ALANINE AMINOTRANSFERASE 14 U/L (12-78); ALBUMIN 1.1 G/DL (3.4-5.0); ALBUMIN/GLOBULIN RATIO 0.2 (1.0-2.7); ALKALINE PHOSPHATASE 253 U/L (46-116); ANION GAP 10 mmol/L (5-15); ASPARTATE AMINO TRANSFERASE 32 U/L (15-37); BILIRUBIN,TOTAL 5.4 MG/DL (0.2-1.0); BLOOD UREA NITROGEN 37 mg/dL (7-18); CALCIUM 8.4 MG/DL (8.5-10.1); CARBON DIOXIDE 19 MMOL/L (21-32); CHLORIDE 113 MMOL/L (98-107); POTASSIUM 4.3 MMOL/L (3.5-5.1); SODIUM 142 MMOL/L (136-145)
[2019-05-23 06:22] LABS: BILIRUBIN,DIRECT 4.3 MG/DL (0.0-0.3)
--- NOTE | 2019-05-23 07:00 | NUR ---
RESPIRATORY NOTE: Received pt on AC 18, 450VT, 30%, PEEP +5. Pt is intubated w/ ETT 7.5 @ 19cm lipline, secured by anchorfast. Pt is sleeping with no distress noted; vitals wnl. Alarms are on and audible, with ambu bag at bedside. Will continue to monitor pt.
--- NOTE | 2019-05-23 07:15 | NUR ---
NURSE NOTES: Patient passing soft pasty light brown stool, not flowing freely thru the rectal tube. Rectal tube discontinued.
--- NOTE | 2019-05-23 07:22 | NUR ---
HAND-OFF: Report given to CHAVA Chapman.
--- NOTE | 2019-05-23 07:23 | NUR ---
NURSE NOTES: PT and report received from CHAVA Durand. VS stable, no S/S of respiratory distress, PT has ETTube 7.5, 19cm L-bottom lip, AC 18, TV 450, 30%, peep 5. PT received with bilateral wrist restraints for stable, no injury or bruising noted around restraints, radial pulses bilaterally equal, 3+ pitting edema noted bilaterally on hands. OGTube feeding of Glucerna 1.2 running at goal of 60cc/hr, no residual noted, RICK arm PICC running TKO. PT L-inguinal reinforced with abdominal pad for leakage. Draper intact and draining, but rectal tube removed with CHAVA Durand during morning rounds as BM is pastey, not malodorous. ED Ruvalcaba made aware of removal of rectal tube and plans for weaning this morning. PT wiped, cleaned, dried, linens changed, gown changed. Plan to wean PT later this morning, will continue to monitor PT, and follow through with plan of care.
--- NOTE | 2019-05-23 08:30 | NUR ---
NURSE NOTES: PT was placed on SIMV pressure support 8 by [place] RT, will continue to monitor PT for respiratory distress.
--- NOTE | 2019-05-23 08:49 | NUR ---
NURSE NOTES: PT placed back on AC 18, TV 450, 30%, peep 5 by Dorota RT. PT RR fluctuated from 17 to 35 while on SIMV for 6 minutes, PT seems anxious, squirming in bed, fighting vent. ED Ruvalcaba made aware of results of weaning. Will continue to monitor PT.
--- NOTE | 2019-05-23 09:00 | NUR ---
RESPIRATORY NOTE: Weaned pt from [id number]. Weaning terminated due to tachypnea >30. RR not to exceed 30 per md & rn: Ari.
[2019-05-23] MEDS: Lactulose 20gm/30ml UDC NG SCH ×3 (09:09→17:28)
[2019-05-23] MEDS: Pantoprazole Inj IVP SCH ×2 (09:09→20:22)
[2019-05-23] MEDS: Morphine Sulfate 2mg/ml Inj(IV/IM USE ONLY) IVP PRN (09:10)
[2019-05-23] MEDS: ceFAZolin sod 1 GM in NS 55 ML IVPB SCH ×2 (09:16→20:22)
--- NOTE | 2019-05-23 09:36 | Pulmonolgy Critical Care Note ---
Critical Care - Asmt/Plan Problems: (1) Acute respiratory failure (2) Acute metabolic encephalopathy (3) Sepsis (4) Anasarca (5) Hepatic encephalopathy (6) Coagulopathy (7) Thrombocytopenia (8) Liver cirrhosis Respiratory: monitor respiratory rate, adjust FIO2, CXR Cardiac: continue to monitor HR/BP Renal: F/U I&O, keep IV fluid, check electrolytes Infectious Disease: check cultures Gastrointestinal: continue feedings/current rate, hold feedings Endocrine: monitor blood sugar, continue sliding scale insulin Neurologic: PRN Ativan, PRN Morphine Affect: PRN ativan Prophylaxis: Protonix Time Spent (Minutes): 40 Notes Reviewed: plate mill hand, renal Discussed with: nurses, consultants, case management director, other Critical Care - Objective Last 24 Hour Vital Signs Date Time Temp Pulse Resp B/P (MAP) Pulse Ox O2 Delivery O2 Flow Rate FiO2 05/23/19 08:49 30 05/23/19 08:31 99 05/23/19 08:30 100 25 30 05/23/19 08:00 98.6 97 20 107/66 (80) 100 05/23/19 08:00 30 05/23/19 08:00 Mechanical Ventilator 05/23/19 07:00 100 20 116/71 (86) 100 05/23/19 06:49 101 25 30 05/23/19 06:00 102 20 111/64 (80) 100 05/23/19 05:32 99 20 30 05/23/19 05:00 100 21 111/68 (82) 100 05/23/19 04:00 30 05/23/19 04:00 98.7 100 22 107/62 (77) 100 05/23/19 04:00 100 05/23/19 04:00 Mechanical Ventilator 05/23/19 03:00 101 22 115/66 (82) 100 05/23/19 02:53 98 22 30 05/23/19 02:00 100 20 117/65 (82) 100 05/23/19 01:21 100 24 30 05/23/19 01:00 100 22 117/65 (82) 100 05/23/19 00:00 97 05/23/19 00:00 30 05/23/19 00:00 98.8 99 22 113/68 (83) 100 05/23/19 00:00 Mechanical Ventilator 05/22/19 23:11 98 20 30 05/22/19 23:11 98 20 100 Mechanical Ventilator 30 05/22/19 23:00 99 21 117/66 (83) 100 05/22/19 22:00 98 21 114/68 (83) 100 05/22/19 21:00 98 21 117/65 (82) 100 05/22/19 20:46 98 22 30 05/22/19 20:00 98.7 98 21 114/67 (83) 100 05/22/19 20:00 Mechanical Ventilator 05/22/19 20:00 30 05/22/19 20:00 98 05/22/19 19:00 98 21 109/63 (78) 100 05/22/19 18:55 95 19 30 05/22/19 18:00 95 20 103/67 (79) 100 05/22/19 17:10 96 21 30 05/22/19 17:00 97 20 113/66 (82) 100 05/22/19 16:00 97 05/22/19 16:00 98.9 96 23 111/64 (80) 100 05/22/19 16:00 30 05/22/19 16:00 Mechanical Ventilator 05/22/19 15:16 97 19 30 05/22/19 15:00 95 19 112/67 (82) 100 05/22/19 14:00 97 21 108/61 (77) 100 05/22/19 13:00 95 19 110/65 (80) 100 05/22/19 12:43 95 19 30 05/22/19 12:00 97.8 94 18 108/65 (79) 100 05/22/19 12:00 91 05/22/19 12:00 Mechanical Ventilator 05/22/19 12:00 30 05/22/19 11:31 95 19 30 05/22/19 11:00 93 17 98/62 (74) 100 05/22/19 10:00 92 18 108/64 (79) 100 05/22/19 09:43 93 19 30 Status: obtunded Condition: critical HEENT: atraumatic Lungs: clear Heart: HR/BP stable Abdomen: soft, non-tender Extremities: no C/C/E Critical Care - Subjective ROS Limited/Unobtainable: Yes Condition: critical EKG Rhythm: Sinus Rhythm FI02: 30 Vent Support Breath Rate: 18 Vent Support Mode: AC Vent Tidal Volume: 450 Sputum Amount: Scant PEEP: 5.0 PIP: 14 Tube Feeding Amount: 60 I&O: Intake and Output 05/22/19 05/23/19 19:00 07:00 Intake Total 900 ml 775 ml Output Total 275 ml 255 ml Balance 625 ml 520 ml IV Total 100 ml 55 ml Tube Feeding 720 ml 660 ml Other 80 ml 60 ml Output Urine Total 175 ml 155 ml Stool Total 100 ml 100 ml # Bowel Movements 1 CXR: NAD ET-Tube: 7.5 ET Position: 19 Labs: Laboratory Tests Test 05/22/19 20:30 05/23/19 04:30 05/23/19 06:00 Lactic Acid Level 2.50 mmol/L (0.4-2.0) H 2.50 mmol/L (0.4-2.0) H 2.30 mmol/L (0.66-2.22) H White Blood Count 11.9 K/UL (4.8-10.8) H Red Blood Count 2.77 M/UL (4.20-5.40) L Hemoglobin 7.8 G/DL (12.0-16.0) L Hematocrit 25.7 % (37.0-47.0) L Mean Corpuscular Volume 93 FL (80-99) Mean Corpuscular Hemoglobin 28.2 PG (27.0-31.0) Mean Corpuscular Hemoglobin Concent 30.3 G/DL (32.0-36.0) L Red Cell Distribution Width 26.4 % (11.6-14.8) H Platelet Count 48 K/UL (150-450) L Mean Platelet Volume 5.8 FL (6.5-10.1) L Neutrophils (%) (Auto) % (45.0-75.0) Lymphocytes (%) (Auto) % (20.0-45.0) Monocytes (%) (Auto) % (1.0-10.0) Eosinophils (%) (Auto) % (0.0-3.0) Basophils (%) (Auto) % (0.0-2.0) Differential Total Cells Counted 100 Neutrophils % (Manual) 74 % (45-75) Lymphocytes % (Manual) 11 % (20-45) L Monocytes % (Manual) 11 % (1-10) H Eosinophils % (Manual) 4 % (0-3) H Basophils % (Manual) 0 % (0-2) Band Neutrophils 0 % (0-8) Platelet Estimate Decreased L Platelet Morphology Normal Polychromasia 1+ Hypochromasia 1+ Anisocytosis 3+ Sodium Level 142 MMOL/L (136-145) Potassium Level 4.3 MMOL/L (3.5-5.1) Chloride Level 113 MMOL/L (98-107) H Carbon Dioxide Level 19 MMOL/L (21-32) L Anion Gap 10 mmol/L (5-15) Blood Urea Nitrogen 37 mg/dL (7-18) H Creatinine 2.0 MG/DL (0.55-1.30) H Estimat Glomerular Filtration Rate 25.7 mL/min (>60) Glucose Level 166 MG/DL (74-106) H Calcium Level 8.4 MG/DL (8.5-10.1) L Total Bilirubin 5.4 MG/DL (0.2-1.0) H Direct Bilirubin 4.3 MG/DL (0.0-0.3) H Aspartate Amino Transf (AST/SGOT) 32 U/L (15-37) Alanine Aminotransferase (ALT/SGPT) 14 U/L (12-78) Alkaline Phosphatase 253 U/L (46-116) H Total Protein 5.5 G/DL (6.4-8.2) L Albumin 1.1 G/DL (3.4-5.0) L Globulin 4.4 g/dL Albumin/Globulin Ratio 0.2 (1.0-2.7) L Shireen Khan MD May 23, 2019 09:36
--- NOTE | 2019-05-23 09:52 | NUR ---
NURSE NOTES: Per MD Erin, Lactic Acid labs cancelled, Ammonia Labs ordered. CN Peg aware of lab cancellations and orders per MD Erin. Will do RN draw from [facility] PICC for Ammonia.
[2019-05-23] MEDS: Haloperidol Lactate 5 MG in D5W 55 ML IVPB PRN (10:54)
--- NOTE | 2019-05-23 11:00 | NUR ---
NURSE NOTES: PT agitated, found squirming down her bed, mouthing/teething ETTube with eyes closed, drowsy, falls back asleep, pulling against her bilateral wrist restraints. PT repositioned. Haldol 5mg IVPB Q1H PRN for agitation given. ED Ruvalcaba made aware. Will continue to monitor PT.
--- NOTE | 2019-05-23 11:39 | NUR ---
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 98.6 HR 108 RR 22 B/P 120/62 AC 18 TV 450 FIO2 30% PEEP 5 WBC 11.9 H/H/7.8/25.7 LACTID ACID 2.50 BUN 37 CR 2.0 ALK PHOS 253 IS: CEFAZOLIN IV HALDOL IV PROTONIX IV ICU STATUS
--- NOTE | 2019-05-23 11:52 | NUR ---
NURSE NOTES: MD Brian made aware when making rounds about PT ammonia results, removal of rectal tube, stool characteristics, failed weaning. Will continue with plan of care for PT.
--- NOTE | 2019-05-23 12:00 | General Progress Note ---
Assessment/Plan Problem List: (1) Liver cirrhosis ICD Codes: K74.60 - Unspecified cirrhosis of liver SNOMED: 20631221 (2) Sepsis ICD Codes: A41.9 - Sepsis, unspecified organism SNOMED: 92242292 Qualifiers: Qualified Codes: A41.9 - Sepsis, unspecified organism (3) Anasarca ICD Codes: R60.1 - Generalized edema SNOMED: 042400716, 908817803 (4) Ascites ICD Codes: R18.8 - Other ascites SNOMED: 298591578 (5) Anemia ICD Codes: D64.9 - Anemia, unspecified SNOMED: 288622678 (6) Hepatic encephalopathy ICD Codes: K72.90 - Hepatic failure, unspecified without coma SNOMED: 62396197 (7) Acute respiratory failure ICD Codes: J96.00 - Acute respiratory failure, unspecified whether with hypoxia or hypercapnia SNOMED: 26830414 (8) ETOH abuse ICD Codes: F10.10 - Alcohol abuse, uncomplicated SNOMED: 45669996 Assessment/Plan: lactulose cont Xifaxan neg stool ob fu H&H and transfuse prn ppi NGTf still on vent>> failed weaning today Subjective ROS Limited/Unobtainable: No Allergies: Coded Allergies: No Known Allergies (Unverified , 01/31/19) Objective Last 24 Hour Vital Signs Date Time Temp Pulse Resp B/P (MAP) Pulse Ox O2 Delivery O2 Flow Rate FiO2 05/23/19 11:00 99 22 106/62 (77) 100 05/23/19 10:35 102 22 30 05/23/19 10:33 98.6 05/23/19 10:00 99 22 112/62 (79) 100 05/23/19 09:00 98 19 120/62 (81) 100 05/23/19 08:49 30 05/23/19 08:45 108 24 30 05/23/19 08:31 99 05/23/19 08:30 100 25 30 05/23/19 08:00 98.6 97 20 107/66 (80) 100 05/23/19 08:00 101 05/23/19 08:00 30 05/23/19 08:00 Mechanical Ventilator 05/23/19 07:00 100 20 116/71 (86) 100 05/23/19 06:49 101 25 30 05/23/19 06:00 102 20 111/64 (80) 100 05/23/19 05:32 99 20 30 05/23/19 05:00 100 21 111/68 (82) 100 05/23/19 04:00 30 05/23/19 04:00 98.7 100 22 107/62 (77) 100 05/23/19 04:00 100 05/23/19 04:00 Mechanical Ventilator 05/23/19 03:00 101 22 115/66 (82) 100 05/23/19 02:53 98 22 30 05/23/19 02:00 100 20 117/65 (82) 100 05/23/19 01:21 100 24 30 05/23/19 01:00 100 22 117/65 (82) 100 05/23/19 00:00 97 05/23/19 00:00 30 05/23/19 00:00 98.8 99 22 113/68 (83) 100 05/23/19 00:00 Mechanical Ventilator 05/22/19 23:11 98 20 30 05/22/19 23:11 98 20 100 Mechanical Ventilator 30 05/22/19 23:00 99 21 117/66 (83) 100 05/22/19 22:00 98 21 114/68 (83) 100 05/22/19 21:00 98 21 117/65 (82) 100 05/22/19 20:46 98 22 30 05/22/19 20:00 98.7 98 21 114/67 (83) 100 05/22/19 20:00 Mechanical Ventilator 05/22/19 20:00 30 05/22/19 20:00 98 05/22/19 19:00 98 21 109/63 (78) 100 05/22/19 18:55 95 19 30 05/22/19 18:00 95 20 103/67 (79) 100 05/22/19 17:10 96 21 30 05/22/19 17:00 97 20 113/66 (82) 100 05/22/19 16:00 97 05/22/19 16:00 98.9 96 23 111/64 (80) 100 05/22/19 16:00 30 05/22/19 16:00 Mechanical Ventilator 05/22/19 15:16 97 19 30 05/22/19 15:00 95 19 112/67 (82) 100 05/22/19 14:00 97 21 108/61 (77) 100 05/22/19 13:00 95 19 110/65 (80) 100 05/22/19 12:43 95 19 30 05/22/19 12:00 97.8 94 18 108/65 (79) 100 05/22/19 12:00 91 05/22/19 12:00 Mechanical Ventilator 05/22/19 12:00 30 Intake and Output 05/22/19 05/23/19 18:59 06:59 Intake Total 900 ml 775 ml Output Total 280 ml 250 ml Balance 620 ml 525 ml IV Total 100 ml 55 ml Tube Feeding 720 ml 660 ml Other 80 ml 60 ml Output Urine Total 180 ml 150 ml Stool Total 100 ml 100 ml Laboratory Tests 05/22/19 20:30: Lactic Acid Level 2.50H 05/23/19 04:30: Lactic Acid Level 2.50H, White Blood Count 11.9H, Red Blood Count 2.77L, Hemoglobin 7.8L, Hematocrit 25.7L, Mean Corpuscular Volume 93, Mean Corpuscular Hemoglobin 28.2, Mean Corpuscular Hemoglobin Concent 30.3L, Red Cell Distribution Width 26.4H, Platelet Count 48L, Mean Platelet Volume 5.8L, Neutrophils (%) (Auto) , Lymphocytes (%) (Auto) , Monocytes (%) (Auto) , Eosinophils (%) (Auto) , Basophils (%) (Auto) , Differential Total Cells Counted 100, Neutrophils % (Manual) 74, Lymphocytes % (Manual) 11L, Monocytes % (Manual) 11H, Eosinophils % (Manual) 4H, Basophils % (Manual) 0, Band Neutrophils 0, Platelet Estimate DecreasedL, Platelet Morphology Normal, Polychromasia 1+, Hypochromasia 1+, Anisocytosis 3+, Sodium Level 142, Potassium Level 4.3, Chloride Level 113H, Carbon Dioxide Level 19L, Anion Gap 10 , Blood Urea Nitrogen 37H, Creatinine 2.0H, Estimat Glomerular Filtration Rate 25.7, Glucose Level 166H, Calcium Level 8.4L, Total Bilirubin 5.4H, Direct Bilirubin 4.3H, Aspartate Amino Transf (AST/SGOT) 32, Alanine Aminotransferase ( ALT/SGPT) 14, Alkaline Phosphatase 253H, Total Protein 5.5L, Albumin 1.1L, Globulin 4.4, Albumin/Globulin Ratio 0.2L 05/23/19 06:00: Lactic Acid Level 2.30H 05/23/19 10:30: Ammonia 43H Height (Feet): 5 Height (Inches): 0.00 Weight (Pounds): 190 General Appearance: lethargic EENT: normal ENT inspection Neck: supple Cardiovascular: normal rate Respiratory/Chest: decreased breath sounds Abdomen: normal bowel sounds, non tender, soft Extremities: non-tender Jon Torres MD May 23, 2019 12:00
--- NOTE | 2019-05-23 12:28 | Nephrology Progress Note ---
Assessment/Plan Problem List: (1) ATN (acute tubular necrosis) (2) Sepsis (3) Acute respiratory failure (4) Acute on chronic alcoholic liver disease Assessment: worsening bili (5) Anemia Assessment Renal failure- Acute On May 09, 2019 normal renal parameters Severe Anemia, Acute on chronic- Acute part from right groin attempted line insertion Severe HypoAlbuminemia, Cirrhosis, ALD, Ascites Sepsis- High lactic Acid Acute respiratory failure Previous gram negative bacteremia / Sepsis Plan Hydrate- K supplement Antibiotics Monitor renal parameters avoid nephrotoxics transfuse as needed- per orders discussed with RN Subjective ROS Limited/Unobtainable: No Objective Objective Last 24 Hour Vital Signs Date Time Temp Pulse Resp B/P (MAP) Pulse Ox O2 Delivery O2 Flow Rate FiO2 05/23/19 12:00 95 05/23/19 12:00 Mechanical Ventilator 05/23/19 12:00 97.5 96 18 107/59 (75) 100 05/23/19 11:00 99 22 106/62 (77) 100 05/23/19 10:35 102 22 30 05/23/19 10:33 98.6 05/23/19 10:00 99 22 112/62 (79) 100 05/23/19 09:00 98 19 120/62 (81) 100 05/23/19 08:49 30 05/23/19 08:45 108 24 30 05/23/19 08:31 99 05/23/19 08:30 100 25 30 05/23/19 08:00 98.6 97 20 107/66 (80) 100 05/23/19 08:00 101 05/23/19 08:00 30 05/23/19 08:00 Mechanical Ventilator 05/23/19 07:00 100 20 116/71 (86) 100 05/23/19 06:49 101 25 30 05/23/19 06:00 102 20 111/64 (80) 100 05/23/19 05:32 99 20 30 05/23/19 05:00 100 21 111/68 (82) 100 05/23/19 04:00 30 05/23/19 04:00 98.7 100 22 107/62 (77) 100 05/23/19 04:00 100 05/23/19 04:00 Mechanical Ventilator 05/23/19 03:00 101 22 115/66 (82) 100 05/23/19 02:53 98 22 30 05/23/19 02:00 100 20 117/65 (82) 100 05/23/19 01:21 100 24 30 05/23/19 01:00 100 22 117/65 (82) 100 05/23/19 00:00 97 05/23/19 00:00 30 05/23/19 00:00 98.8 99 22 113/68 (83) 100 05/23/19 00:00 Mechanical Ventilator 05/22/19 23:11 98 20 30 05/22/19 23:11 98 20 100 Mechanical Ventilator 30 05/22/19 23:00 99 21 117/66 (83) 100 05/22/19 22:00 98 21 114/68 (83) 100 05/22/19 21:00 98 21 117/65 (82) 100 05/22/19 20:46 98 22 30 05/22/19 20:00 98.7 98 21 114/67 (83) 100 05/22/19 20:00 Mechanical Ventilator 05/22/19 20:00 30 05/22/19 20:00 98 05/22/19 19:00 98 21 109/63 (78) 100 05/22/19 18:55 95 19 30 05/22/19 18:00 95 20 103/67 (79) 100 05/22/19 17:10 96 21 30 05/22/19 17:00 97 20 113/66 (82) 100 05/22/19 16:00 97 05/22/19 16:00 98.9 96 23 111/64 (80) 100 05/22/19 16:00 30 05/22/19 16:00 Mechanical Ventilator 05/22/19 15:16 97 19 30 05/22/19 15:00 95 19 112/67 (82) 100 05/22/19 14:00 97 21 108/61 (77) 100 05/22/19 13:00 95 19 110/65 (80) 100 05/22/19 12:43 95 19 30 Intake and Output 05/22/19 05/23/19 18:59 06:59 Intake Total 900 ml 775 ml Output Total 280 ml 250 ml Balance 620 ml 525 ml IV Total 100 ml 55 ml Tube Feeding 720 ml 660 ml Other 80 ml 60 ml Output Urine Total 180 ml 150 ml Stool Total 100 ml 100 ml Laboratory Tests 05/22/19 20:30: Lactic Acid Level 2.50H 05/23/19 04:30: Lactic Acid Level 2.50H, White Blood Count 11.9H, Red Blood Count 2.77L, Hemoglobin 7.8L, Hematocrit 25.7L, Mean Corpuscular Volume 93, Mean Corpuscular Hemoglobin 28.2, Mean Corpuscular Hemoglobin Concent 30.3L, Red Cell Distribution Width 26.4H, Platelet Count 48L, Mean Platelet Volume 5.8L, Neutrophils (%) (Auto) , Lymphocytes (%) (Auto) , Monocytes (%) (Auto) , Eosinophils (%) (Auto) , Basophils (%) (Auto) , Differential Total Cells Counted 100, Neutrophils % (Manual) 74, Lymphocytes % (Manual) 11L, Monocytes % (Manual) 11H, Eosinophils % (Manual) 4H, Basophils % (Manual) 0, Band Neutrophils 0, Platelet Estimate DecreasedL, Platelet Morphology Normal, Polychromasia 1+, Hypochromasia 1+, Anisocytosis 3+, Sodium Level 142, Potassium Level 4.3, Chloride Level 113H, Carbon Dioxide Level 19L, Anion Gap 10 , Blood Urea Nitrogen 37H, Creatinine 2.0H, Estimat Glomerular Filtration Rate 25.7, Glucose Level 166H, Calcium Level 8.4L, Total Bilirubin 5.4H, Direct Bilirubin 4.3H, Aspartate Amino Transf (AST/SGOT) 32, Alanine Aminotransferase ( ALT/SGPT) 14, Alkaline Phosphatase 253H, Total Protein 5.5L, Albumin 1.1L, Globulin 4.4, Albumin/Globulin Ratio 0.2L 05/23/19 06:00: Lactic Acid Level 2.30H 05/23/19 10:30: Ammonia 43H Height (Feet): 5 Height (Inches): 0.00 Weight (Pounds): 190 General Appearance: no apparent distress EENT: other - vented Cardiovascular: normal rate Respiratory/Chest: decreased breath sounds Abdomen: distended Objective no change Jovany Byers MD May 23, 2019 12:28
--- NOTE | 2019-05-23 13:27 | Surgery Progress Note ---
Surgery Progress Note Subjective Procedure Performed sepsis Additional Comments Ill-appearing in ICU. No acute events. Exam stable. Labs noted. Objective Last 24 Hour Vital Signs Date Time Temp Pulse Resp B/P (MAP) Pulse Ox O2 Delivery O2 Flow Rate FiO2 05/23/19 13:00 97 21 109/63 (78) 100 05/23/19 12:00 95 05/23/19 12:00 Mechanical Ventilator 05/23/19 12:00 97.5 96 18 107/59 (75) 100 05/23/19 11:00 99 22 106/62 (77) 100 05/23/19 10:35 102 22 30 05/23/19 10:33 98.6 05/23/19 10:00 99 22 112/62 (79) 100 05/23/19 09:00 98 19 120/62 (81) 100 05/23/19 08:49 30 05/23/19 08:45 108 24 30 05/23/19 08:31 99 05/23/19 08:30 100 25 30 05/23/19 08:00 98.6 97 20 107/66 (80) 100 05/23/19 08:00 101 05/23/19 08:00 30 05/23/19 08:00 Mechanical Ventilator 05/23/19 07:00 100 20 116/71 (86) 100 05/23/19 06:49 101 25 30 05/23/19 06:00 102 20 111/64 (80) 100 05/23/19 05:32 99 20 30 05/23/19 05:00 100 21 111/68 (82) 100 05/23/19 04:00 30 05/23/19 04:00 98.7 100 22 107/62 (77) 100 05/23/19 04:00 100 05/23/19 04:00 Mechanical Ventilator 05/23/19 03:00 101 22 115/66 (82) 100 05/23/19 02:53 98 22 30 05/23/19 02:00 100 20 117/65 (82) 100 05/23/19 01:21 100 24 30 05/23/19 01:00 100 22 117/65 (82) 100 05/23/19 00:00 97 05/23/19 00:00 30 05/23/19 00:00 98.8 99 22 113/68 (83) 100 05/23/19 00:00 Mechanical Ventilator 05/22/19 23:11 98 20 30 05/22/19 23:11 98 20 100 Mechanical Ventilator 30 05/22/19 23:00 99 21 117/66 (83) 100 05/22/19 22:00 98 21 114/68 (83) 100 05/22/19 21:00 98 21 117/65 (82) 100 05/22/19 20:46 98 22 30 05/22/19 20:00 98.7 98 21 114/67 (83) 100 05/22/19 20:00 Mechanical Ventilator 05/22/19 20:00 30 05/22/19 20:00 98 05/22/19 19:00 98 21 109/63 (78) 100 05/22/19 18:55 95 19 30 05/22/19 18:00 95 20 103/67 (79) 100 05/22/19 17:10 96 21 30 05/22/19 17:00 97 20 113/66 (82) 100 05/22/19 16:00 97 05/22/19 16:00 98.9 96 23 111/64 (80) 100 05/22/19 16:00 30 05/22/19 16:00 Mechanical Ventilator 05/22/19 15:16 97 19 30 05/22/19 15:00 95 19 112/67 (82) 100 05/22/19 14:00 97 21 108/61 (77) 100 I&O Intake and Output 05/22/19 05/23/19 18:59 06:59 Intake Total 900 ml 775 ml Output Total 280 ml 250 ml Balance 620 ml 525 ml IV Total 100 ml 55 ml Tube Feeding 720 ml 660 ml Other 80 ml 60 ml Output Urine Total 180 ml 150 ml Stool Total 100 ml 100 ml Dressing: dry Wound: clean Cardiovascular: RSR Respiratory: clear Abdomen: soft, non-tender, present bowel sounds Extremities: edema, no cyanosis Laboratory Tests Test 05/22/19 20:30 05/23/19 04:30 05/23/19 06:00 05/23/19 10:30 Lactic Acid Level 2.50 mmol/L (0.4-2.0) H 2.50 mmol/L (0.4-2.0) H 2.30 mmol/L (0.66-2.22) H White Blood Count 11.9 K/UL (4.8-10.8) H Red Blood Count 2.77 M/UL (4.20-5.40) L Hemoglobin 7.8 G/DL (12.0-16.0) L Hematocrit 25.7 % (37.0-47.0) L Mean Corpuscular Volume 93 FL (80-99) Mean Corpuscular Hemoglobin 28.2 PG (27.0-31.0) Mean Corpuscular Hemoglobin Concent 30.3 G/DL (32.0-36.0) L Red Cell Distribution Width 26.4 % (11.6-14.8) H Platelet Count 48 K/UL (150-450) L Mean Platelet Volume 5.8 FL (6.5-10.1) L Neutrophils (%) (Auto) % (45.0-75.0) Lymphocytes (%) (Auto) % (20.0-45.0) Monocytes (%) (Auto) % (1.0-10.0) Eosinophils (%) (Auto) % (0.0-3.0) Basophils (%) (Auto) % (0.0-2.0) Differential Total Cells Counted 100 Neutrophils % (Manual) 74 % (45-75) Lymphocytes % (Manual) 11 % (20-45) L Monocytes % (Manual) 11 % (1-10) H Eosinophils % (Manual) 4 % (0-3) H Basophils % (Manual) 0 % (0-2) Band Neutrophils 0 % (0-8) Platelet Estimate Decreased L Platelet Morphology Normal Polychromasia 1+ Hypochromasia 1+ Anisocytosis 3+ Sodium Level 142 MMOL/L (136-145) Potassium Level 4.3 MMOL/L (3.5-5.1) Chloride Level 113 MMOL/L (98-107) H Carbon Dioxide Level 19 MMOL/L (21-32) L Anion Gap 10 mmol/L (5-15) Blood Urea Nitrogen 37 mg/dL (7-18) H Creatinine 2.0 MG/DL (0.55-1.30) H Estimat Glomerular Filtration Rate 25.7 mL/min (>60) Glucose Level 166 MG/DL (74-106) H Calcium Level 8.4 MG/DL (8.5-10.1) L Total Bilirubin 5.4 MG/DL (0.2-1.0) H Direct Bilirubin 4.3 MG/DL (0.0-0.3) H Aspartate Amino Transf (AST/SGOT) 32 U/L (15-37) Alanine Aminotransferase (ALT/SGPT) 14 U/L (12-78) Alkaline Phosphatase 253 U/L (46-116) H Total Protein 5.5 G/DL (6.4-8.2) L Albumin 1.1 G/DL (3.4-5.0) L Globulin 4.4 g/dL Albumin/Globulin Ratio 0.2 (1.0-2.7) L Ammonia 43 umol/L (11-32) H Plan Problems: (1) Sacral decubitus ulcer Assessment & Plan: Pt presented on admission with icteric sclerae and skin. Moisture intertrigo Madhu/left abd folds.(1.5cm long). Moisture intertrigo R groin(8.5cm) slit noted with small amt bleeding. Mons pubis,labia majora and medial aspects of both upper thigh erythematous . Partial thickness wound noted to L thoracic. Base of wound is moist and viable. Edges flat and adherent to base of wound.No exudate noted. (L) 0.6cm x (W)0.8cm. Non-blanchable erythema sacrum,R and L buttocks with scattered shearing .Full thickness pressure injury noted to sacrococcygeal area. Base of wound is steve with small amt slough noted in center.(L) 0.7cm x (W)0.3cm. Area around wound is erythematous non-blanchable with shearing . Full thickness pressure injury R buttocks . Base of wound is moist, with Slough in center.Surrounding area erythematous and denuded. Evolving serous blister L heel.Base of wound is fluctuant with delineated,red margins.(L)3.5cm x (W)5.5cm. Periwound without erythema or fluctuance. R heel firm and blanchable. Tx.Plan: Apply Triad Paste to Sacrum and R buttocks. Cover wounds with Optifoam drsg. Change every 3 days and PRN. Apply Triad Paste to abd folds, R groin,Mons pubis, medial aspects of both upper thighs with each perineal care. Apply Optifoam drsg L thoracic wound. Cover with Optifoam drsg. Change every 3 days and prn. Apply Cavilon Skin Barrier to both heels. Cover each heel with Optifoam drsg. Change every 7 days and prn. APM/CHRISSY Mattress. Reposition at least every 2hours or as tolerated. Off-load heels with pillow (2) Liver cirrhosis Assessment & Plan: DAILY ESTIMATED NEEDS: Needs based on Cirrhosis, Critical care, sepsis/ 58kg adj 22-30 kcals/kg 7005-4989 total kcals 1.2-2 g protein/kg 70-116 g total protein 20-25 mL/kg 1224-3612 total fluid mLs NUTRITION DIAGNOSIS: * Swallowing difficulty R/T respiratory status as evidenced by pt orally intubated, NPO at this time * Altered nutrition related lab values R/T cirrhosis, sepsis, clinical condition as evidenced by elev T bili (5.5), elev NH3 (152), elev LA (6.7), elev creat (2.4). CURRENT TF:NPO PO DIET RECOMMENDATIONS: MAKE UP GIRL eval post extubation -> LOW NA ENTERAL NUTRITION RECOMMENDATIONS: Glucerna 1.2 @ 55ml/hr x 24 hrs to provide 1320ml, 1584kcal, 79g prot, 1063ml free water * Rec Glucerna 1.2 to maintain good BG control: h/o DM * As medically appropriate, initiate Glucerna 1.2 @ 25ml/hr x 6 hrs * Advance 10ml q 4-6 hrs as tolerated to goal rate. * HOB over 30 degrees/ water flush per MD. ADDITIONAL RECOMMENDATIONS: * Calibrated bedscale wt for accurate CBW * W/ TF, monitor need for NISS: h/o DM * F/up w/ wound eval: add Miquel 1pkt BID + VIt C 250mg QD * Monitor lytes, replete as needed . (3) Acute on chronic alcoholic liver disease (4) Sepsis Assessment & Plan: Restore insufficiency, leukocytosis, anemia, lactic acidosis , liver insufficiency, sepsis Right line removed and pressure held until hemostasis obtained. Currently no significant hematoma or post injury comp occasion identified. Site clean dry. Left line in place and stable. Will recommend PICC line so femoral line can be removed and more definitive long -term access can be obtained given patient's current medical condition and likelihood for prolonged hospitalization stay US noted and okay paracentesis PICC Continue IV antibiotics We will monitor and follow with recommendations Ultrasound ordered Efrain Whitaker May 23, 2019 13:27
--- NOTE | 2019-05-23 13:33 | NUR ---
RD ASSESSMENT & RECOMMENDATIONS SEE CARE ACTIVITY FOR COMPLETE ASSESSMENT DAILY ESTIMATED NEEDS: Needs based on Cirrhosis, Critical care, wound/ 58kg adj 22-28 kcals/kg 7933-5619 total kcals 1.25-2 g protein/kg 72-116 g total protein 20-25 mL/kg 2898-3591 total fluid mLs NUTRITION DIAGNOSIS: * Swallowing difficulty R/T respiratory status as evidenced by pt orally intubated, on OGT feeding * Altered nutrition related lab values R/T cirrhosis, sepsis, clinical condition as evidenced by elev T bili (5.4), elev NH3 (152 ->43), elev LA, elev creat (2.0). 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 ------- ADDITIONAL RECOMMENDATIONS: * Calibrated bedscale wt for accurate CBW * Monitor BGs, need for NISS * Wound healing: add Miquel 1pkt BID add VIt C 500mg QD, ZnSO4 220mg QD x 10 days * Monitor lytes, replete as needed .
--- NOTE | 2019-05-23 13:34 | NUR ---
NURSE NOTES: PT less agitated, few episodes of squirming downwards in bed after given PRN Haldol. Bilateral wrist restraints still in place, no injuries or bruising noted from restraints. No S/S of respiratory distress, BP 109/63, 100% saturation, HR 99. New OGTube feeding Glucerna 1.2 hanged, dated, timed, signed. No residual noted from OGTube, PT still at 60cc/hr for feeding. Will continue to monitor PT.
[2019-05-23] MEDS: LORazepam Inj 2mg/ml 1ml IV PRN (15:06)
--- NOTE | 2019-05-23 15:08 | NUR ---
NURSE NOTES: PT tugging on restraints, squirming, episodes of agitation noted. Will give PRN Ativan and continue to monitor PT.
--- NOTE | 2019-05-23 18:42 | NUR ---
NURSE NOTES: PT had BM, linens changed, wiped down, cleaned and dried. Draper bag emptied. VS stable, no S/S of respiratory distress, will continue to monitor PT.
--- NOTE | 2019-05-23 18:52 | NUR ---
RESPIRATORY NOTE: Received pt on AC 18, 450VT, 30%, PEEP +5. Pt is intubated w/ ETT 7.5 @ 19cm lipline, secured by anchorfast. Pt asleep, responds to stimuli. Both hands on soft-restraints to prevent pt from self-extubation. B/S david. clear/diminished, sxn minimal amounts of thick/thin, pale-yellow secretions. Vent plugged into red outlet, ambubag at bedside. Pt in no apparent distress at this time. Will continue to monitor pt.
--- NOTE | 2019-05-23 18:59 | Internal Med Progress Note ---
Subjective Date of Service: May 23, 2019 Physician Name Jose Benjamin Attending Physician Goldy Amador MD Current Medications Medications (Trade) Dose Ordered Sig/Almaz Route PRN Reason Start Time Stop Time Status Last Admin Dose Admin Cefazolin Sodium 1 gm/Sodium Chloride 55 ml @ 110 mls/hr Q12HR IVPB 05/22/19 21:00 05/29/19 20:59 05/23/19 09:16 Chlorhexidine Gluconate (Shannon-Hex 2%) 1 applic DAILY@2000 TOPIC 05/18/19 20:00 06/17/19 19:59 05/22/19 20:27 Dextrose (Dextrose 50%) 25 ml Q30M PRN IV Hypoglycemia 05/17/19 21:45 06/16/19 21:44 Dextrose (Dextrose 50%) 50 ml Q30M PRN IV Hypoglycemia 05/17/19 21:45 06/16/19 21:44 Haloperidol Lactate 5 mg/ Dextrose 56 ml @ 224 mls/hr Q1H PRN IVPB Agitation 05/23/19 10:45 06/22/19 10:44 05/23/19 10:54 Lactulose (Cephulac) 10 gm THREE TIMES A DAY NG 05/20/19 13:00 06/17/19 10:29 05/23/19 17:28 Lorazepam (Ativan 2mg/ml 1ml) 0.5 mg Q4H PRN IV For Anxiety 05/17/19 21:45 05/24/19 21:44 05/23/19 15:06 Morphine Sulfate (Morphine Sulfate) 1 mg Q4H PRN IVP For Pain 05/17/19 21:45 05/24/19 21:44 05/23/19 09:10 Ondansetron HCl (Zofran) 4 mg Q6H PRN IVP Nausea & Vomiting 05/17/19 21:45 06/16/19 21:44 05/21/19 15:07 Pantoprazole (Protonix) 40 mg EVERY 12 HOURS IVP 05/18/19 21:00 06/17/19 20:59 05/23/19 09:09 Rifaximin (Xifaxan) 550 mg EVERY 12 HOURS NG 05/18/19 21:00 05/25/19 20:59 05/23/19 09:09 Allergies: Coded Allergies: No Known Allergies (Unverified , 01/31/19) ROS Limited/Unobtainable: Yes Subjective 58 YO F admitted with respiratory failure and presumed septic shock. Now UTI. Cover for Int Med-Dr Amador. Intubated and sedated. ICU. S/P paracentesis 05/19 Objective Last Vital Signs Date Time Temp Pulse Resp B/P (MAP) Pulse Ox O2 Delivery O2 Flow Rate FiO2 05/23/19 18:49 97 22 30 05/23/19 18:00 114/68 (83) 100 05/23/19 16:00 98.6 05/23/19 16:00 Mechanical Ventilator Laboratory Tests Test 05/22/19 20:30 05/23/19 04:30 05/23/19 06:00 05/23/19 10:30 Lactic Acid Level 2.50 mmol/L (0.4-2.0) H 2.50 mmol/L (0.4-2.0) H 2.30 mmol/L (0.66-2.22) H White Blood Count 11.9 K/UL (4.8-10.8) H Red Blood Count 2.77 M/UL (4.20-5.40) L Hemoglobin 7.8 G/DL (12.0-16.0) L Hematocrit 25.7 % (37.0-47.0) L Mean Corpuscular Volume 93 FL (80-99) Mean Corpuscular Hemoglobin 28.2 PG (27.0-31.0) Mean Corpuscular Hemoglobin Concent 30.3 G/DL (32.0-36.0) L Red Cell Distribution Width 26.4 % (11.6-14.8) H Platelet Count 48 K/UL (150-450) L Mean Platelet Volume 5.8 FL (6.5-10.1) L Neutrophils (%) (Auto) % (45.0-75.0) Lymphocytes (%) (Auto) % (20.0-45.0) Monocytes (%) (Auto) % (1.0-10.0) Eosinophils (%) (Auto) % (0.0-3.0) Basophils (%) (Auto) % (0.0-2.0) Differential Total Cells Counted 100 Neutrophils % (Manual) 74 % (45-75) Lymphocytes % (Manual) 11 % (20-45) L Monocytes % (Manual) 11 % (1-10) H Eosinophils % (Manual) 4 % (0-3) H Basophils % (Manual) 0 % (0-2) Band Neutrophils 0 % (0-8) Platelet Estimate Decreased L Platelet Morphology Normal Polychromasia 1+ Hypochromasia 1+ Anisocytosis 3+ Sodium Level 142 MMOL/L (136-145) Potassium Level 4.3 MMOL/L (3.5-5.1) Chloride Level 113 MMOL/L (98-107) H Carbon Dioxide Level 19 MMOL/L (21-32) L Anion Gap 10 mmol/L (5-15) Blood Urea Nitrogen 37 mg/dL (7-18) H Creatinine 2.0 MG/DL (0.55-1.30) H Estimat Glomerular Filtration Rate 25.7 mL/min (>60) Glucose Level 166 MG/DL (74-106) H Calcium Level 8.4 MG/DL (8.5-10.1) L Total Bilirubin 5.4 MG/DL (0.2-1.0) H Direct Bilirubin 4.3 MG/DL (0.0-0.3) H Aspartate Amino Transf (AST/SGOT) 32 U/L (15-37) Alanine Aminotransferase (ALT/SGPT) 14 U/L (12-78) Alkaline Phosphatase 253 U/L (46-116) H Total Protein 5.5 G/DL (6.4-8.2) L Albumin 1.1 G/DL (3.4-5.0) L Globulin 4.4 g/dL Albumin/Globulin Ratio 0.2 (1.0-2.7) L Ammonia 43 umol/L (11-32) H Intake and Output 05/22/19 05/23/19 19:00 07:00 Intake Total 900 ml 775 ml Output Total 275 ml 255 ml Balance 625 ml 520 ml IV Total 100 ml 55 ml Tube Feeding 720 ml 660 ml Other 80 ml 60 ml Output Urine Total 175 ml 155 ml Stool Total 100 ml 100 ml # Bowel Movements 1 Objective PHYSICAL EXAMINATION: GENERAL: The patient is a well-developed and well-nourished obese female, who is intubated and sedated. HEENT: Eyes, pupils are equal and responsive to light and accommodation. Extraocular movements are intact. NECK: Supple without lymphadenopathy. CHEST: Mech vent; Coarse upper breath sounds, otherwise without wheezes or rales. CARDIOVASCULAR: Regular rhythm, rate. S1, S2 normal without murmurs, rubs, or gallops. ABDOMEN: Soft, distended with decreased bowel sounds. No evidence of hepatosplenomegaly. Currently, no rebound or guarding noted. EXTREMITIES: Negative for clubbing, cyanosis, or edema. RECTAL/GENITAL: Not performed. NEUROLOGICAL: Unable to assess. Assessment/Plan Assessment/Plan ASSESSMENT: This is a 58-year-old female. 1. Respiratory failure. 2. Urinary tract infection=klebsiella pneumoniae 3. Probable sepsis. 4. Probable septic shock. 5. Alcoholic cirrhosis of the liver. 6. Hypertension. 7. Diabetes type 2. 8. Ascites. 9. Hypercholesterolemia. TREATMENT: 1. Respiratory failure. A Pulmonary consultation has been obtained with Dr. Shireen Khan. The patient is currently intubated and sedated in the intensive care unit. We will follow recommendations of Pulmonary. 2. Urinary tract infection. An Infectious Disease consultation has been obtained with . ABX=cefazolin Urine culture=klebsiella 3. Probable sepsis. 4. Septic shock. 5. Alcoholic cirrhosis of liver. A Gastroenterology consultation has been obtained with Dr. Jon Torres. S/P paracentesis 05/19/19 6. Hypertension. The patient is currently hypotensive. Hold all antihypertensive medications. 7. Diabetes type 2. A NovoLog sliding scale has been instituted. 8. Ascites, as above. A Gastroenterology consultation has been obtained with Dr. Jon Torres. S/P paracentesis 05/19/19 9. Hypercholesterolemia. Jose Benjamin MD May 23, 2019 18:59
--- NOTE | 2019-05-23 19:17 | NUR ---
HAND-OFF: Report and PT given to CHAVA Byrnes.
--- NOTE | 2019-05-23 19:20 | NUR ---
NURSE NOTES: Received report and pt from CHAVA Chapman. Patient drowsy. Orally intubated with ETT 7.5, 19 lipline. AC 18 450 PEEP 5, 30%. With OGT, receiving Glucerna 1.2 at 60 ml/hr. No residual noted. With left upper arm PICC, flushing well. Draper catheter in place, noted to be oliguric, small amount of dark gisselle urine noted. MD made aware. With rectal tube in place. SCDs in place. On P200 mattress. Call light within reach. Head of bed elevated. Bed locked and in low position. Bed alarm on. Call light within reach.
[2019-05-23] MEDS: Dyna-Hex 2% Top Sol 2oz TOPIC SCH (20:22)
--- NOTE | 2019-05-23 20:40 | Infectious Diseases Prog Note ---
Assessment/Plan Assessment/Plan Assessment/Plan 58 yo female with PMHx of Liver cirrhosis with recurrent ascites, HTN, ETOH abuse, DM and Hepatic encephalopathy who presented to the ED on 05/17/19 with AMS. Sepsis UA (+) CXR no sign of PNA Urine Cx 05/17/19 - K. pneumo AMS Hepatic encephalopathy ? vs Urosepsis Leukocytosis No fever Hx Gram negative bacteremia -05/03 BCx 2/ ACHROMOBACTER XYLOSOXIDANS (S Zosyn, Ceftazidime, bactrim; R cefepime; I imipenem, Levaquin); 05/05 Bcx NTD Recurrent ascites -05/05 SP paracentesis: 3.5 L removed wbc 170 (N 49%); cx Neg - -03/11/19 sp paracentesis:fluid wbc 97 (N 34%) HTN DM Liver Cirrhosis EtOH abuse Plan: Start Cefazolin # 2/3 - 05/22/19 SP Cefepime #5 Flagyl #5 and Vancomycin #5 -Monitor CBC/CMP, temperatures Subjective Allergies: Coded Allergies: No Known Allergies (Unverified , 01/31/19) Subjective in ICU Objective Vital Signs Last 24 Hour Vital Signs Date Time Temp Pulse Resp B/P (MAP) Pulse Ox O2 Delivery O2 Flow Rate FiO2 05/23/19 18:49 97 22 30 05/23/19 18:00 96 22 114/68 (83) 100 05/23/19 17:29 103 19 30 05/23/19 17:00 97 16 105/70 (82) 100 05/23/19 16:00 30 05/23/19 16:00 98.6 97 20 104/63 (77) 100 05/23/19 16:00 100 05/23/19 16:00 Mechanical Ventilator 05/23/19 15:00 99 22 115/66 (82) 100 05/23/19 14:31 97 20 30 05/23/19 14:00 99 20 115/59 (77) 100 05/23/19 13:29 100 20 30 05/23/19 13:00 97 21 109/63 (78) 100 05/23/19 12:00 95 05/23/19 12:00 Mechanical Ventilator 05/23/19 12:00 97.5 96 18 107/59 (75) 100 05/23/19 11:00 99 22 106/62 (77) 100 05/23/19 10:35 102 22 30 05/23/19 10:33 98.6 05/23/19 10:00 99 22 112/62 (79) 100 05/23/19 09:00 98 19 120/62 (81) 100 05/23/19 08:49 30 05/23/19 08:45 108 24 30 05/23/19 08:31 99 05/23/19 08:30 100 25 30 05/23/19 08:00 98.6 97 20 107/66 (80) 100 05/23/19 08:00 101 05/23/19 08:00 30 05/23/19 08:00 Mechanical Ventilator 05/23/19 07:00 100 20 116/71 (86) 100 05/23/19 06:49 101 25 30 05/23/19 06:00 102 20 111/64 (80) 100 05/23/19 05:32 99 20 30 05/23/19 05:00 100 21 111/68 (82) 100 05/23/19 04:00 30 05/23/19 04:00 98.7 100 22 107/62 (77) 100 05/23/19 04:00 100 05/23/19 04:00 Mechanical Ventilator 05/23/19 03:00 101 22 115/66 (82) 100 05/23/19 02:53 98 22 30 05/23/19 02:00 100 20 117/65 (82) 100 05/23/19 01:21 100 24 30 05/23/19 01:00 100 22 117/65 (82) 100 05/23/19 00:00 97 05/23/19 00:00 30 05/23/19 00:00 98.8 99 22 113/68 (83) 100 05/23/19 00:00 Mechanical Ventilator 05/22/19 23:11 98 20 30 05/22/19 23:11 98 20 100 Mechanical Ventilator 30 05/22/19 23:00 99 21 117/66 (83) 100 05/22/19 22:00 98 21 114/68 (83) 100 05/22/19 21:00 98 21 117/65 (82) 100 05/22/19 20:46 98 22 30 Height (Feet): 5 Height (Inches): 0.00 Weight (Pounds): 190 HEENT: anicteric Respiratory/Chest: normal breath sounds Cardiovascular: normal rate Abdomen: soft, non tender Laboratory Tests Test 05/23/19 04:30 05/23/19 06:00 05/23/19 10:30 White Blood Count 11.9 K/UL (4.8-10.8) H Red Blood Count 2.77 M/UL (4.20-5.40) L Hemoglobin 7.8 G/DL (12.0-16.0) L Hematocrit 25.7 % (37.0-47.0) L Mean Corpuscular Volume 93 FL (80-99) Mean Corpuscular Hemoglobin 28.2 PG (27.0-31.0) Mean Corpuscular Hemoglobin Concent 30.3 G/DL (32.0-36.0) L Red Cell Distribution Width 26.4 % (11.6-14.8) H Platelet Count 48 K/UL (150-450) L Mean Platelet Volume 5.8 FL (6.5-10.1) L Neutrophils (%) (Auto) % (45.0-75.0) Lymphocytes (%) (Auto) % (20.0-45.0) Monocytes (%) (Auto) % (1.0-10.0) Eosinophils (%) (Auto) % (0.0-3.0) Basophils (%) (Auto) % (0.0-2.0) Differential Total Cells Counted 100 Neutrophils % (Manual) 74 % (45-75) Lymphocytes % (Manual) 11 % (20-45) L Monocytes % (Manual) 11 % (1-10) H Eosinophils % (Manual) 4 % (0-3) H Basophils % (Manual) 0 % (0-2) Band Neutrophils 0 % (0-8) Platelet Estimate Decreased L Platelet Morphology Normal Polychromasia 1+ Hypochromasia 1+ Anisocytosis 3+ Sodium Level 142 MMOL/L (136-145) Potassium Level 4.3 MMOL/L (3.5-5.1) Chloride Level 113 MMOL/L (98-107) H Carbon Dioxide Level 19 MMOL/L (21-32) L Anion Gap 10 mmol/L (5-15) Blood Urea Nitrogen 37 mg/dL (7-18) H Creatinine 2.0 MG/DL (0.55-1.30) H Estimat Glomerular Filtration Rate 25.7 mL/min (>60) Glucose Level 166 MG/DL (74-106) H Lactic Acid Level 2.50 mmol/L (0.4-2.0) H 2.30 mmol/L (0.66-2.22) H Calcium Level 8.4 MG/DL (8.5-10.1) L Total Bilirubin 5.4 MG/DL (0.2-1.0) H Direct Bilirubin 4.3 MG/DL (0.0-0.3) H Aspartate Amino Transf (AST/SGOT) 32 U/L (15-37) Alanine Aminotransferase (ALT/SGPT) 14 U/L (12-78) Alkaline Phosphatase 253 U/L (46-116) H Total Protein 5.5 G/DL (6.4-8.2) L Albumin 1.1 G/DL (3.4-5.0) L Globulin 4.4 g/dL Albumin/Globulin Ratio 0.2 (1.0-2.7) L Ammonia 43 umol/L (11-32) H Current Medications Medications (Trade) Dose Ordered Sig/Almaz Route PRN Reason Start Time Stop Time Status Last Admin Dose Admin Cefazolin Sodium 1 gm/Sodium Chloride 55 ml @ 110 mls/hr Q12HR IVPB 05/22/19 21:00 05/29/19 20:59 05/23/19 20:22 Chlorhexidine Gluconate (Shannon-Hex 2%) 1 applic DAILY@2000 TOPIC 05/18/19 20:00 06/17/19 19:59 05/23/19 20:22 Dextrose (Dextrose 50%) 25 ml Q30M PRN IV Hypoglycemia 05/17/19 21:45 06/16/19 21:44 Dextrose (Dextrose 50%) 50 ml Q30M PRN IV Hypoglycemia 05/17/19 21:45 06/16/19 21:44 Haloperidol Lactate 5 mg/ Dextrose 56 ml @ 224 mls/hr Q1H PRN IVPB Agitation 05/23/19 10:45 06/22/19 10:44 05/23/19 10:54 Lactulose (Cephulac) 10 gm THREE TIMES A DAY NG 05/20/19 13:00 06/17/19 10:29 05/23/19 17:28 Lorazepam (Ativan 2mg/ml 1ml) 0.5 mg Q4H PRN IV For Anxiety 05/17/19 21:45 05/24/19 21:44 05/23/19 15:06 Morphine Sulfate (Morphine Sulfate) 1 mg Q4H PRN IVP For Pain 05/17/19 21:45 05/24/19 21:44 05/23/19 09:10 Ondansetron HCl (Zofran) 4 mg Q6H PRN IVP Nausea & Vomiting 05/17/19 21:45 06/16/19 21:44 05/21/19 15:07 Pantoprazole (Protonix) 40 mg EVERY 12 HOURS IVP 05/18/19 21:00 06/17/19 20:59 05/23/19 20:22 Rifaximin (Xifaxan) 550 mg EVERY 12 HOURS NG 05/18/19 21:00 05/25/19 20:59 05/23/19 20:22 Krzysztof Hu MD May 23, 2019 20:40
--- NOTE | 2019-05-23 22:00 | NUR ---
NURSE NOTES: Pt's resting in bed, in no acute distress. VS stable. Will continue to monitor.
[2019-05-24] VITALS (23 sets, daily range): BP systolic 101–125; BP diastolic 58–77
--- NOTE | 2019-05-24 | NUR ---
NURSE NOTES: Pt's resting in bed, in no acute distress. VS stable. Will continue to monitor.
--- NOTE | 2019-05-24 02:00 | NUR ---
NURSE NOTES: Pt's resting in bed, in no acute distress. VS stable. Will continue to monitor.
--- NOTE | 2019-05-24 04:00 | NUR ---
NURSE NOTES: Pt's resting in bed, asleep, in no acute distress. VS stable. Will continue to monitor.
[2019-05-24 05:05] LABS: INR 1.6 (0.9-1.1)
[2019-05-24 05:16] LABS: ALANINE AMINOTRANSFERASE 14 U/L (12-78); ALBUMIN 1.1 G/DL (3.4-5.0); ALBUMIN/GLOBULIN RATIO 0.2 (1.0-2.7); ALKALINE PHOSPHATASE 257 U/L (46-116); ANION GAP 10 mmol/L (5-15); ASPARTATE AMINO TRANSFERASE 35 U/L (15-37); BILIRUBIN,TOTAL 6.3 MG/DL (0.2-1.0); BLOOD UREA NITROGEN 39 mg/dL (7-18); CALCIUM 8.2 MG/DL (8.5-10.1); CARBON DIOXIDE 20 MMOL/L (21-32); CHLORIDE 110 MMOL/L (98-107); PHOSPHORUS 3.5 MG/DL (2.5-4.9); POTASSIUM 4.4 MMOL/L (3.5-5.1); SODIUM 140 MMOL/L (136-145)
[2019-05-24 05:22] LABS: HEMOGLOBIN 7.9 G/DL (12.0-16.0); MEAN CORPUSCULAR VOLUME 95 FL (80-99); PLATELET COUNT 61 K/UL (150-450); RED BLOOD COUNT 2.74 M/UL (4.20-5.40); RED CELL DISTRIBUTION WIDTH 27.3 % (11.6-14.8); WHITE BLOOD COUNT 14.5 K/UL (4.8-10.8)
[2019-05-24 05:37] LABS: BILIRUBIN,DIRECT 5.1 MG/DL (0.0-0.3)
[2019-05-24] MEDS: LORazepam Inj 2mg/ml 1ml IV PRN (05:57)
--- NOTE | 2019-05-24 06:00 | NUR ---
NURSE NOTES: Pt's resting in bed, asleep, in no acute distress. VS stable. Will continue to monitor.
--- NOTE | 2019-05-24 06:55 | NUR ---
RESPIRATORY NOTE:Received pt on current vent settings, intubated with size 7.5 ett and 19cm at the lip. No s/s of distress noted. Alarms on and audible. Will cont. to monitor pt.
--- NOTE | 2019-05-24 07:30 | NUR ---
HAND-OFF: Report given to CHAVA Chapman.
--- NOTE | 2019-05-24 07:31 | NUR ---
NURSE NOTES: PT and report received from CHAVA Byrnes. PT received with bilateral wrist restraints, assessed wrists for injury, no S/S of injury, radial pulses bilaterally equal, 3+ pitting edema still remains on R-hand, 1+ edema on L-hand. PT episodes of being drowsy, not-orientated, reorientated as needed. Esperanza, RT spoke with PT and reorientated, teaching provided not to pull her ETTube. ETTube 7.5, 19cm mid lip, AC 18, TV 450, 30%, peep 5; PT has episodes of anxiety trying to move her extremities, reaching for ETTube, but bilateral restraints in place for safety. Draper in place, RICK-PICC running TKO, OGTube Glucerna 1.2 on hold for weaning this morning. VS stable, no S/S of respiratory distress. Will continue to monitor PT and follow through with plan of care for PT.
--- NOTE | 2019-05-24 08:30 | NUR ---
RADIOLOGY DEPT., CHEST X-RAY DONE.-P.DYE
[2019-05-24] MEDS: Pantoprazole Inj IVP SCH ×2 (08:39→21:10)
[2019-05-24] MEDS: Lactulose 20gm/30ml UDC NG SCH ×3 (08:39→18:49)
[2019-05-24] MEDS: ceFAZolin sod 1 GM in NS 55 ML IVPB SCH (08:40)
--- NOTE | 2019-05-24 09:01 | NUR ---
NURSE NOTES: Morning meds given, PT anxious made apparent by moving extremities, more alert, opens eyes but drowsy. No OGtube residual noted on drawback.
--- NOTE | 2019-05-24 09:20 | NUR ---
NURSE NOTES: RT Gregory performed PT wean test, from 0920 to 1000, wean test duration 40 minutes, PT did not tolerate weaning, RR peaked mid 30's. PT placed back on AC 18, TV 450, 30%, peep 5. Post weaning VS BP 123/73, HR 97, 100% sat, RR 20. No S/S of respiratory distress, will continue to monitor PT.
--- NOTE | 2019-05-24 09:55 | NUR ---
NURSE NOTES: MD Modesta made rounds during PT wean test, morning labs reported for PT in regards to WBC, Addendum: 05/24/19 at 1006 by rAi Barth RN NURSE NOTES: NURSE NOTES: MD Modesta made rounds during PT wean test, morning labs reported for PT in regards to WBC trending upwards, decreased Ammonia, and low Albumin. Will continue to monitor PT.
[2019-05-24] MEDS ORDERED: NS 275ml ONE (10:09)
[2019-05-24] MEDS ORDERED: Sterile Water Irrig 1000ml IRRIG ONE (10:09)
[2019-05-24] MEDS ORDERED: Tubing IV Secondary IV ONE (10:09)
--- NOTE | 2019-05-24 10:25 | Pulmonolgy Critical Care Note ---
Critical Care - Asmt/Plan Problems: (1) Acute respiratory failure (2) Acute metabolic encephalopathy (3) Sepsis (4) Anasarca (5) Hepatic encephalopathy (6) Coagulopathy (7) Thrombocytopenia (8) Liver cirrhosis Respiratory: monitor respiratory rate, adjust FIO2, CXR, weaning trial Cardiac: continue to monitor HR/BP Renal: F/U I&O, keep IV fluid Infectious Disease: check cultures, continue antibiotics Gastrointestinal: continue feedings/current rate Endocrine: monitor blood sugar, continue sliding scale insulin Hematologic: monitor H/H, transfuse if hgb<8.5 Neurologic: PRN Ativan, keep patient comfortable Affect: PRN ativan Prophylaxis: Protonix Disposition: keep in ICU Time Spent (Minutes): 40 Notes Reviewed: grocery store manager, cardio, renal Discussed with: nurses, consultants, counter caservideo manager - Objective Last 24 Hour Vital Signs Date Time Temp Pulse Resp B/P (MAP) Pulse Ox O2 Delivery O2 Flow Rate FiO2 05/24/19 10:00 100 15 116/77 (90) 100 05/24/19 09:20 99 05/24/19 09:19 96 25 30 05/24/19 09:00 95 20 123/73 (90) 100 05/24/19 08:00 30 05/24/19 08:00 100 19 125/70 (88) 100 05/24/19 08:00 81 05/24/19 08:00 Mechanical Ventilator 05/24/19 07:00 97.8 98 17 118/70 (86) 100 05/24/19 06:55 102 24 30 05/24/19 06:00 102 18 121/69 (86) 100 05/24/19 05:24 96 22 30 05/24/19 05:00 95 18 115/64 (81) 100 05/24/19 04:00 98 20 109/63 (78) 100 05/24/19 04:00 Mechanical Ventilator 05/24/19 04:00 30 05/24/19 04:00 106 05/24/19 03:00 97 23 111/63 (79) 100 05/24/19 02:47 102 20 30 05/24/19 02:00 99 32 116/71 (86) 99 05/24/19 01:00 99 32 101/70 (80) 99 05/24/19 00:51 99 26 30 05/24/19 00:00 30 9/24/19 00:00 96 20 110/61 (77) 99 05/24/19 00:00 Mechanical Ventilator 05/24/19 00:00 101 05/23/19 23:00 101 25 121/70 (87) 98 05/23/19 22:57 101 25 30 05/23/19 22:00 96 22 110/68 (82) 100 05/23/19 21:00 98 22 111/65 (80) 100 05/23/19 20:37 101 29 30 05/23/19 20:00 30 05/23/19 20:00 98.8 96 22 110/66 (81) 100 05/23/19 20:00 Mechanical Ventilator 05/23/19 20:00 102 05/23/19 19:00 97 22 106/68 (81) 100 05/23/19 18:49 97 22 30 05/23/19 18:00 96 22 114/68 (83) 100 05/23/19 17:29 103 19 30 05/23/19 17:00 97 16 105/70 (82) 100 05/23/19 16:00 30 05/23/19 16:00 98.6 97 20 104/63 (77) 100 05/23/19 16:00 100 05/23/19 16:00 Mechanical Ventilator 05/23/19 15:00 99 22 115/66 (82) 100 05/23/19 14:31 97 20 30 05/23/19 14:00 99 20 115/59 (77) 100 05/23/19 13:29 100 20 30 05/23/19 13:00 97 21 109/63 (78) 100 05/23/19 12:00 95 05/23/19 12:00 Mechanical Ventilator 05/23/19 12:00 97.5 96 18 107/59 (75) 100 05/23/19 11:00 99 22 106/62 (77) 100 05/23/19 10:35 102 22 30 05/23/19 10:33 98.6 Status: awake Condition: critical HEENT: atraumatic, normocephalic Neck: full ROM Lungs: clear Heart: HR/BP stable Abdomen: soft, non-tender Extremities: no C/C/E Critical Care - Subjective ROS Limited/Unobtainable: Yes Condition: critical EKG Rhythm: Sinus Rhythm FI02: 30 Vent Support Breath Rate: 18 Vent Support Mode: CPAP Vent Tidal Volume: 450 Sputum Amount: Small PEEP: 5.0 PIP: 20 Tube Feeding Amount: 60 I&O: Intake and Output 05/23/19 05/24/19 19:00 07:00 Intake Total 891 ml 655 ml Output Total 230 ml 120 ml Balance 661 ml 535 ml IV Total 111 ml 55 ml Tube Feeding 720 ml 600 ml Other 60 ml Output Urine Total 230 ml 120 ml # Bowel Movements 4 1 ET-Tube: 7.5 ET Position: 19 Labs: Laboratory Tests Test 05/23/19 10:30 05/24/19 04:00 Ammonia 43 umol/L (11-32) H White Blood Count 14.5 K/UL (4.8-10.8) H Red Blood Count 2.74 M/UL (4.20-5.40) L Hemoglobin 7.9 G/DL (12.0-16.0) L Hematocrit 26.0 % (37.0-47.0) L Mean Corpuscular Volume 95 FL (80-99) Mean Corpuscular Hemoglobin 28.7 PG (27.0-31.0) Mean Corpuscular Hemoglobin Concent 30.3 G/DL (32.0-36.0) L Red Cell Distribution Width 27.3 % (11.6-14.8) H Platelet Count 61 K/UL (150-450) L Mean Platelet Volume 6.0 FL (6.5-10.1) L Neutrophils (%) (Auto) % (45.0-75.0) Lymphocytes (%) (Auto) % (20.0-45.0) Monocytes (%) (Auto) % (1.0-10.0) Eosinophils (%) (Auto) % (0.0-3.0) Basophils (%) (Auto) % (0.0-2.0) Differential Total Cells Counted 100 Neutrophils % (Manual) 74 % (45-75) Lymphocytes % (Manual) 11 % (20-45) L Monocytes % (Manual) 10 % (1-10) Eosinophils % (Manual) 3 % (0-3) Basophils % (Manual) 0 % (0-2) Band Neutrophils 2 % (0-8) Platelet Estimate Decreased L Platelet Morphology Normal Anisocytosis 2+ Prothrombin Time 16.7 SEC (9.30-11.50) H Prothromb Time International Ratio 1.6 (0.9-1.1) H Activated Partial Thromboplast Time 37 SEC (23-33) H Sodium Level 140 MMOL/L (136-145) Potassium Level 4.4 MMOL/L (3.5-5.1) Chloride Level 110 MMOL/L (98-107) H Carbon Dioxide Level 20 MMOL/L (21-32) L Anion Gap 10 mmol/L (5-15) Blood Urea Nitrogen 39 mg/dL (7-18) H Creatinine 2.0 MG/DL (0.55-1.30) H Estimat Glomerular Filtration Rate 25.7 mL/min (>60) Glucose Level 155 MG/DL (74-106) H Calcium Level 8.2 MG/DL (8.5-10.1) L Phosphorus Level 3.5 MG/DL (2.5-4.9) Magnesium Level 2.0 MG/DL (1.8-2.4) Total Bilirubin 6.3 MG/DL (0.2-1.0) H Direct Bilirubin 5.1 MG/DL (0.0-0.3) H Aspartate Amino Transf (AST/SGOT) 35 U/L (15-37) Alanine Aminotransferase (ALT/SGPT) 14 U/L (12-78) Alkaline Phosphatase 257 U/L (46-116) H Total Protein 5.8 G/DL (6.4-8.2) L Albumin 1.1 G/DL (3.4-5.0) L Globulin 4.7 g/dL Albumin/Globulin Ratio 0.2 (1.0-2.7) L Shireen Khan MD May 24, 2019 10:25
--- NOTE | 2019-05-24 10:41 | Infectious Diseases Prog Note ---
Assessment/Plan Assessment/Plan Assessment/Plan 58 yo female with PMHx of Liver cirrhosis with recurrent ascites, HTN, ETOH abuse, DM and Hepatic encephalopathy who presented to the ED on 05/17/19 with AMS. Sepsis UA (+) CXR no sign of PNA Urine Cx 05/17/19 - K. pneumo Ro Probable VAP Ascites ro probable SBP 05/19 sp paracentesis ( no Cx or Cell count sent) AMS Hepatic encephalopathy ? vs Urosepsis Leukocytosis increased No fever Hx Gram negative bacteremia -05/03 BCx 2/ ACHROMOBACTER XYLOSOXIDANS (S Zosyn, Ceftazidime, bactrim; R cefepime; I imipenem, Levaquin); 05/05 Bcx NTD Recurrent ascites -05/05 SP paracentesis: 3.5 L removed wbc 170 (N 49%); cx Neg - -03/11/19 sp paracentesis:fluid wbc 97 (N 34%) HTN DM Liver Cirrhosis EtOH abuse Plan: Start Zosyn # 1 and DC Cefazolin # 3 - 05/22/19 SP Cefepime #5 Flagyl #5 and Vancomycin #5 - IR to rpt paracentesis and send it for cell count and Cx -Monitor CBC/CMP Subjective Allergies: Coded Allergies: No Known Allergies (Unverified , 01/31/19) Subjective wbc increasing intubated in ICU Objective Vital Signs Last 24 Hour Vital Signs Date Time Temp Pulse Resp B/P (MAP) Pulse Ox O2 Delivery O2 Flow Rate FiO2 05/24/19 10:00 100 15 116/77 (90) 100 05/24/19 09:20 99 05/24/19 09:19 96 25 30 05/24/19 09:00 95 20 123/73 (90) 100 05/24/19 08:00 30 05/24/19 08:00 100 19 125/70 (88) 100 05/24/19 08:00 81 05/24/19 08:00 Mechanical Ventilator 05/24/19 07:00 97.8 98 17 118/70 (86) 100 05/24/19 06:55 102 24 30 05/24/19 06:00 102 18 121/69 (86) 100 05/24/19 05:24 96 22 30 05/24/19 05:00 95 18 115/64 (81) 100 05/24/19 04:00 98 20 109/63 (78) 100 05/24/19 04:00 Mechanical Ventilator 05/24/19 04:00 30 05/24/19 04:00 106 05/24/19 03:00 97 23 111/63 (79) 100 05/24/19 02:47 102 20 30 05/24/19 02:00 99 32 116/71 (86) 99 05/24/19 01:00 99 32 101/70 (80) 99 05/24/19 00:51 99 26 30 05/24/19 00:00 30 05/24/19 00:00 96 20 110/61 (77) 99 05/24/19 00:00 Mechanical Ventilator 05/24/19 00:00 101 05/23/19 23:00 101 25 121/70 (87) 98 05/23/19 22:57 101 25 30 05/23/19 22:00 96 22 110/68 (82) 100 05/23/19 21:00 98 22 111/65 (80) 100 05/23/19 20:37 101 29 30 05/23/19 20:00 30 05/23/19 20:00 98.8 96 22 110/66 (81) 100 05/23/19 20:00 Mechanical Ventilator 05/23/19 20:00 102 05/23/19 19:00 97 22 106/68 (81) 100 05/23/19 18:49 97 22 30 05/23/19 18:00 96 22 114/68 (83) 100 05/23/19 17:29 103 19 30 05/23/19 17:00 97 16 105/70 (82) 100 05/23/19 16:00 30 05/23/19 16:00 98.6 97 20 104/63 (77) 100 05/23/19 16:00 100 05/23/19 16:00 Mechanical Ventilator 05/23/19 15:00 99 22 115/66 (82) 100 05/23/19 14:31 97 20 30 05/23/19 14:00 99 20 115/59 (77) 100 05/23/19 13:29 100 20 30 05/23/19 13:00 97 21 109/63 (78) 100 05/23/19 12:00 95 05/23/19 12:00 Mechanical Ventilator 9/23/19 12:00 97.5 96 18 107/59 (75) 100 05/23/19 11:00 99 22 106/62 (77) 100 05/23/19 10:35 102 22 30 05/23/19 10:33 98.6 Height (Feet): 5 Height (Inches): 0.00 Weight (Pounds): 194 Respiratory/Chest: respiratory distress - on vent Cardiovascular: normal rate Abdomen: soft, non tender Laboratory Tests Test 05/24/19 04:00 White Blood Count 14.5 K/UL (4.8-10.8) H Red Blood Count 2.74 M/UL (4.20-5.40) L Hemoglobin 7.9 G/DL (12.0-16.0) L Hematocrit 26.0 % (37.0-47.0) L Mean Corpuscular Volume 95 FL (80-99) Mean Corpuscular Hemoglobin 28.7 PG (27.0-31.0) Mean Corpuscular Hemoglobin Concent 30.3 G/DL (32.0-36.0) L Red Cell Distribution Width 27.3 % (11.6-14.8) H Platelet Count 61 K/UL (150-450) L Mean Platelet Volume 6.0 FL (6.5-10.1) L Neutrophils (%) (Auto) % (45.0-75.0) Lymphocytes (%) (Auto) % (20.0-45.0) Monocytes (%) (Auto) % (1.0-10.0) Eosinophils (%) (Auto) % (0.0-3.0) Basophils (%) (Auto) % (0.0-2.0) Differential Total Cells Counted 100 Neutrophils % (Manual) 74 % (45-75) Lymphocytes % (Manual) 11 % (20-45) L Monocytes % (Manual) 10 % (1-10) Eosinophils % (Manual) 3 % (0-3) Basophils % (Manual) 0 % (0-2) Band Neutrophils 2 % (0-8) Platelet Estimate Decreased L Platelet Morphology Normal Anisocytosis 2+ Prothrombin Time 16.7 SEC (9.30-11.50) H Prothromb Time International Ratio 1.6 (0.9-1.1) H Activated Partial Thromboplast Time 37 SEC (23-33) H Sodium Level 140 MMOL/L (136-145) Potassium Level 4.4 MMOL/L (3.5-5.1) Chloride Level 110 MMOL/L (98-107) H Carbon Dioxide Level 20 MMOL/L (21-32) L Anion Gap 10 mmol/L (5-15) Blood Urea Nitrogen 39 mg/dL (7-18) H Creatinine 2.0 MG/DL (0.55-1.30) H Estimat Glomerular Filtration Rate 25.7 mL/min (>60) Glucose Level 155 MG/DL (74-106) H Calcium Level 8.2 MG/DL (8.5-10.1) L Phosphorus Level 3.5 MG/DL (2.5-4.9) Magnesium Level 2.0 MG/DL (1.8-2.4) Total Bilirubin 6.3 MG/DL (0.2-1.0) H Direct Bilirubin 5.1 MG/DL (0.0-0.3) H Aspartate Amino Transf (AST/SGOT) 35 U/L (15-37) Alanine Aminotransferase (ALT/SGPT) 14 U/L (12-78) Alkaline Phosphatase 257 U/L (46-116) H Total Protein 5.8 G/DL (6.4-8.2) L Albumin 1.1 G/DL (3.4-5.0) L Globulin 4.7 g/dL Albumin/Globulin Ratio 0.2 (1.0-2.7) L Current Medications Medications (Trade) Dose Ordered Sig/Almaz Route PRN Reason Start Time Stop Time Status Last Admin Dose Admin Cefazolin Sodium 1 gm/Sodium Chloride 55 ml @ 110 mls/hr Q12HR IVPB 05/22/19 21:00 05/29/19 20:59 05/24/19 08:40 Chlorhexidine Gluconate (Shannon-Hex 2%) 1 applic DAILY@1999 TOPIC 05/18/19 20:00 06/17/19 19:59 05/23/19 20:22 Dextrose (Dextrose 50%) 25 ml Q30M PRN IV Hypoglycemia 05/17/19 21:45 06/16/19 21:44 Dextrose (Dextrose 50%) 50 ml Q30M PRN IV Hypoglycemia 05/17/19 21:45 06/16/19 21:44 Haloperidol Lactate 5 mg/ Dextrose 56 ml @ 224 mls/hr Q1H PRN IVPB Agitation 05/23/19 10:45 06/22/19 10:44 05/23/19 10:54 Lactulose (Cephulac) 10 gm THREE TIMES A DAY NG 05/20/19 13:00 06/17/19 10:29 05/24/19 08:39 Lorazepam (Ativan 2mg/ml 1ml) 0.5 mg Q4H PRN IV For Anxiety 05/17/19 21:45 05/24/19 21:44 05/24/19 05:57 Morphine Sulfate (Morphine Sulfate) 1 mg Q4H PRN IVP For Pain 05/17/19 21:45 05/24/19 21:44 05/23/19 09:10 Ondansetron HCl (Zofran) 4 mg Q6H PRN IVP Nausea & Vomiting 05/17/19 21:45 06/16/19 21:44 05/21/19 15:07 Pantoprazole (Protonix) 40 mg EVERY 12 HOURS IVP 05/18/19 21:00 06/17/19 20:59 05/24/19 08:39 Rifaximin (Xifaxan) 550 mg EVERY 12 HOURS NG 05/18/19 21:00 05/25/19 20:59 05/24/19 08:40 Krzysztof Hu MD May 24, 2019 10:41
--- NOTE | 2019-05-24 11:14 | General Progress Note ---
Assessment/Plan Problem List: (1) Liver cirrhosis ICD Codes: K74.60 - Unspecified cirrhosis of liver SNOMED: 46053341 (2) Sepsis ICD Codes: A41.9 - Sepsis, unspecified organism SNOMED: 97014203 Qualifiers: Qualified Codes: A41.9 - Sepsis, unspecified organism (3) Anasarca ICD Codes: R60.1 - Generalized edema SNOMED: 843446277, 173926683 (4) Ascites ICD Codes: R18.8 - Other ascites SNOMED: 258093909 (5) Anemia ICD Codes: D64.9 - Anemia, unspecified SNOMED: 069486111 (6) Hepatic encephalopathy ICD Codes: K72.90 - Hepatic failure, unspecified without coma SNOMED: 74040649 (7) Acute respiratory failure ICD Codes: J96.00 - Acute respiratory failure, unspecified whether with hypoxia or hypercapnia SNOMED: 76213047 (8) ETOH abuse ICD Codes: F10.10 - Alcohol abuse, uncomplicated SNOMED: 20473173 Assessment/Plan: lactulose cont Xifaxan neg stool ob fu H&H and transfuse prn ppi NGTf still on vent>> failed weaning abx per ID Subjective ROS Limited/Unobtainable: No Allergies: Coded Allergies: No Known Allergies (Unverified , 01/31/19) Objective Last 24 Hour Vital Signs Date Time Temp Pulse Resp B/P (MAP) Pulse Ox O2 Delivery O2 Flow Rate FiO2 05/24/19 10:00 100 15 116/77 (90) 100 05/24/19 09:20 99 05/24/19 09:19 96 25 30 05/24/19 09:00 95 20 123/73 (90) 100 05/24/19 08:00 30 05/24/19 08:00 100 19 125/70 (88) 100 05/24/19 08:00 81 05/24/19 08:00 Mechanical Ventilator 05/24/19 07:00 97.8 98 17 118/70 (86) 100 05/24/19 06:55 102 24 30 05/24/19 06:00 102 18 121/69 (86) 100 05/24/19 05:24 96 22 30 05/24/19 05:00 95 18 115/64 (81) 100 05/24/19 04:00 98 20 109/63 (78) 100 05/24/19 04:00 Mechanical Ventilator 05/24/19 04:00 30 05/24/19 04:00 106 05/24/19 03:00 97 23 111/63 (79) 100 05/24/19 02:47 102 20 30 05/24/19 02:00 99 32 116/71 (86) 99 05/24/19 01:00 99 32 101/70 (80) 99 05/24/19 00:51 99 26 30 05/24/19 00:00 30 05/24/19 00:00 96 20 110/61 (77) 99 05/24/19 00:00 Mechanical Ventilator 05/24/19 00:00 101 05/23/19 23:00 101 25 121/70 (87) 98 05/23/19 22:57 101 25 30 05/23/19 22:00 96 22 110/68 (82) 100 05/23/19 21:00 98 22 111/65 (80) 100 05/23/19 20:37 101 29 30 05/23/19 20:00 30 05/23/19 20:00 98.8 96 22 110/66 (81) 100 05/23/19 20:00 Mechanical Ventilator 05/23/19 20:00 102 05/23/19 19:00 97 22 106/68 (81) 100 05/23/19 18:49 97 22 30 05/23/19 18:00 96 22 114/68 (83) 100 05/23/19 17:29 103 19 30 05/23/19 17:00 97 16 105/70 (82) 100 05/23/19 16:00 30 05/23/19 16:00 98.6 97 20 104/63 (77) 100 05/23/19 16:00 100 05/23/19 16:00 Mechanical Ventilator 05/23/19 15:00 99 22 115/66 (82) 100 05/23/19 14:31 97 20 30 05/23/19 14:00 99 20 115/59 (77) 100 05/23/19 13:29 100 20 30 05/23/19 13:00 97 21 109/63 (78) 100 05/23/19 12:00 95 05/23/19 12:00 Mechanical Ventilator 05/23/19 12:00 97.5 96 18 107/59 (75) 100 Intake and Output 05/23/19 05/24/19 19:00 07:00 Intake Total 891 ml 655 ml Output Total 230 ml 120 ml Balance 661 ml 535 ml IV Total 111 ml 55 ml Tube Feeding 720 ml 600 ml Other 60 ml Output Urine Total 230 ml 120 ml # Bowel Movements 4 1 Laboratory Tests 05/24/19 04:00: White Blood Count 14.5H, Red Blood Count 2.74L, Hemoglobin 7.9L, Hematocrit 26.0L, Mean Corpuscular Volume 95, Mean Corpuscular Hemoglobin 28.7, Mean Corpuscular Hemoglobin Concent 30.3L, Red Cell Distribution Width 27.3H, Platelet Count 61L, Mean Platelet Volume 6.0L, Neutrophils (%) (Auto) , Lymphocytes (%) (Auto) , Monocytes (%) (Auto) , Eosinophils (%) (Auto) , Basophils (%) (Auto) , Differential Total Cells Counted 100, Neutrophils % ( Manual) 74, Lymphocytes % (Manual) 11L, Monocytes % (Manual) 10, Eosinophils % ( Manual) 3, Basophils % (Manual) 0, Band Neutrophils 2, Platelet Estimate DecreasedL, Platelet Morphology Normal, Anisocytosis 2+, Prothrombin Time 16.7H , Prothromb Time International Ratio 1.6H, Activated Partial Thromboplast Time 37H, Sodium Level 140, Potassium Level 4.4, Chloride Level 110H, Carbon Dioxide Level 20L, Anion Gap 10, Blood Urea Nitrogen 39H, Creatinine 2.0H, Estimat Glomerular Filtration Rate 25.7, Glucose Level 155H, Calcium Level 8.2L, Phosphorus Level 3.5, Magnesium Level 2.0, Total Bilirubin 6.3H, Direct Bilirubin 5.1H, Aspartate Amino Transf (AST/SGOT) 35, Alanine Aminotransferase ( ALT/SGPT) 14, Alkaline Phosphatase 257H, Total Protein 5.8L, Albumin 1.1L, Globulin 4.7, Albumin/Globulin Ratio 0.2L Height (Feet): 5 Height (Inches): 0.00 Weight (Pounds): 194 General Appearance: lethargic EENT: PERRL/EOMI Neck: supple Cardiovascular: normal rate Respiratory/Chest: decreased breath sounds Abdomen: normal bowel sounds, non tender, soft Extremities: non-tender Jon Torres MD May 24, 2019 11:14
--- NOTE | 2019-05-24 11:29 | NUR ---
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 97.8 HR 98 RR 25 B/P 123/73 CPAP FIO2 30% PEEP 5PS 8 BUN 39 CR 2.0 ALK PHOS 257 PT 16.7 INR 1.4 PTT 37 IS: ZOSYN IV PROTONIX IV HALDOL IV LACTULOSE PO WEANING ICU STATUS
--- NOTE | 2019-05-24 11:30 | NUR ---
NURSE NOTES: MD Mayte made rounds, placed orders for US Paracentesis w/ cell count, culture; clean catch urine to culture. Will change out existing bentley, obtain clean catch urine. Will continue to monitor PT.
--- NOTE | 2019-05-24 11:43 | Diagnostic Imaging Report ---
Indication: Dyspnea Comparison: 05/19/2019 A single view chest radiograph was obtained. Findings: Endotracheal tube is above the marianne. Linear density in the left perihilar region noted likely atelectasis. There is a left PICC line in good position. The heart is enlarged. Mild pulmonary vascular congestion suspected with central prominent hilar vessels. IMPRESSION: Mild pulmonary vascular congestion suspected. Left perihilar atelectasis.
--- NOTE | 2019-05-24 12:00 | NUR ---
NURSE NOTES: Blood culture obtain, sputum to culture obtain with help of RT Gregory. PT had BM, changed linens, reji-care done, cleaned, dried. Bilateral wrist restraints remain, no S/S of injury, no bruising noted bilaterally. Will continue to monitor.
--- NOTE | 2019-05-24 13:00 | NUR ---
NURSE NOTES: New bentley 16fr inserted with Jenna Charlton RN. No S/S of respiratory distress noted.
--- NOTE | 2019-05-24 13:18 | Nephrology Progress Note ---
Assessment/Plan Problem List: (1) ATN (acute tubular necrosis) (2) Sepsis (3) Acute respiratory failure (4) Acute on chronic alcoholic liver disease Assessment: worsening bili (5) Anemia Assessment Renal failure- Acute On May 09, 2019 normal renal parameters Severe Anemia, Acute on chronic- Acute part from right groin attempted line insertion Severe HypoAlbuminemia, Cirrhosis, ALD, Ascites Sepsis- High lactic Acid Acute respiratory failure Previous gram negative bacteremia / Sepsis Plan Hydrate- K supplement Antibiotics Monitor renal parameters avoid nephrotoxics transfuse as needed- per orders discussed with RN Subjective ROS Limited/Unobtainable: Yes Objective Objective Last 24 Hour Vital Signs Date Time Temp Pulse Resp B/P (MAP) Pulse Ox O2 Delivery O2 Flow Rate FiO2 05/24/19 13:00 97 20 119/66 (83) 100 05/24/19 12:00 Mechanical Ventilator 05/24/19 12:00 30 05/24/19 12:00 98.5 97 22 120/58 (78) 100 05/24/19 11:30 99 23 30 05/24/19 11:00 91 18 113/66 (82) 100 05/24/19 10:00 92 25 30 05/24/19 10:00 100 15 116/77 (90) 100 05/24/19 09:20 99 05/24/19 09:19 96 25 30 05/24/19 09:00 95 20 123/73 (90) 100 05/24/19 08:00 30 05/24/19 08:00 100 19 125/70 (88) 100 05/24/19 08:00 81 05/24/19 08:00 Mechanical Ventilator 05/24/19 07:00 97.8 98 17 118/70 (86) 100 05/24/19 06:55 102 24 30 05/24/19 06:00 102 18 121/69 (86) 100 05/24/19 05:24 96 22 30 05/24/19 05:00 95 18 115/64 (81) 100 05/24/19 04:00 98 20 109/63 (78) 100 05/24/19 04:00 Mechanical Ventilator 05/24/19 04:00 30 05/24/19 04:00 106 05/24/19 03:00 97 23 111/63 (79) 100 05/24/19 02:47 102 20 30 05/24/19 02:00 99 32 116/71 (86) 99 05/24/19 01:00 99 32 101/70 (80) 99 05/24/19 00:51 99 26 30 05/24/19 00:00 30 05/24/19 00:00 96 20 110/61 (77) 99 05/24/19 00:00 Mechanical Ventilator 05/24/19 00:00 101 05/23/19 23:00 101 25 121/70 (87) 98 05/23/19 22:57 101 25 30 05/23/19 22:00 96 22 110/68 (82) 100 05/23/19 21:00 98 22 111/65 (80) 100 05/23/19 20:37 101 29 30 05/23/19 20:00 30 05/23/19 20:00 98.8 96 22 110/66 (81) 100 05/23/19 20:00 Mechanical Ventilator 05/23/19 20:00 102 05/23/19 19:00 97 22 106/68 (81) 100 05/23/19 18:49 97 22 30 05/23/19 18:00 96 22 114/68 (83) 100 05/23/19 17:29 103 19 30 05/23/19 17:00 97 16 105/70 (82) 100 05/23/19 16:00 30 05/23/19 16:00 98.6 97 20 104/63 (77) 100 05/23/19 16:00 100 05/23/19 16:00 Mechanical Ventilator 05/23/19 15:00 99 22 115/66 (82) 100 05/23/19 14:31 97 20 30 05/23/19 14:00 99 20 115/59 (77) 100 05/23/19 13:29 100 20 30 Intake and Output 05/23/19 05/24/19 19:00 07:00 Intake Total 891 ml 655 ml Output Total 230 ml 120 ml Balance 661 ml 535 ml IV Total 111 ml 55 ml Tube Feeding 720 ml 600 ml Other 60 ml Output Urine Total 230 ml 120 ml # Bowel Movements 4 1 Laboratory Tests 05/24/19 04:00: White Blood Count 14.5H, Red Blood Count 2.74L, Hemoglobin 7.9L, Hematocrit 26.0L, Mean Corpuscular Volume 95, Mean Corpuscular Hemoglobin 28.7, Mean Corpuscular Hemoglobin Concent 30.3L, Red Cell Distribution Width 27.3H, Platelet Count 61L, Mean Platelet Volume 6.0L, Neutrophils (%) (Auto) , Lymphocytes (%) (Auto) , Monocytes (%) (Auto) , Eosinophils (%) (Auto) , Basophils (%) (Auto) , Differential Total Cells Counted 100, Neutrophils % ( Manual) 74, Lymphocytes % (Manual) 11L, Monocytes % (Manual) 10, Eosinophils % ( Manual) 3, Basophils % (Manual) 0, Band Neutrophils 2, Platelet Estimate DecreasedL, Platelet Morphology Normal, Anisocytosis 2+, Prothrombin Time 16.7H , Prothromb Time International Ratio 1.6H, Activated Partial Thromboplast Time 37H, Sodium Level 140, Potassium Level 4.4, Chloride Level 110H, Carbon Dioxide Level 20L, Anion Gap 10, Blood Urea Nitrogen 39H, Creatinine 2.0H, Estimat Glomerular Filtration Rate 25.7, Glucose Level 155H, Calcium Level 8.2L, Phosphorus Level 3.5, Magnesium Level 2.0, Total Bilirubin 6.3H, Direct Bilirubin 5.1H, Aspartate Amino Transf (AST/SGOT) 35, Alanine Aminotransferase ( ALT/SGPT) 14, Alkaline Phosphatase 257H, Total Protein 5.8L, Albumin 1.1L, Globulin 4.7, Albumin/Globulin Ratio 0.2L Height (Feet): 5 Height (Inches): 0.00 Weight (Pounds): 194 General Appearance: no apparent distress EENT: other - vented Cardiovascular: tachycardia Respiratory/Chest: decreased breath sounds Abdomen: distended Objective no change Jovany Byers MD May 24, 2019 13:18
--- NOTE | 2019-05-24 14:20 | NUR ---
NURSE NOTES: PT clean catch urine obtained, dropped of at lab.
[2019-05-24] MEDS: Piperacillin/Tazobactam 3.375 GM in NS 110 ML IVPB SCH ×2 (14:21→21:33)
[2019-05-24] MEDS: Morphine Sulfate 2mg/ml Inj(IV/IM USE ONLY) IVP PRN (15:17)
--- NOTE | 2019-05-24 15:27 | NUR ---
NURSE NOTES: Observed facial grimacing, squirming, pulling bilateral soft restraints. Morphine 1mg PRN given. ED Alvarado made aware. BP 121/72, no S/S of respiratory distress noted. Will continue to monitor PT.
--- NOTE | 2019-05-24 15:34 | Surgery Progress Note ---
Surgery Progress Note Subjective Procedure Performed sepsis Additional Comments ill appearing in icu labs noted prognosis guarded Objective Last 24 Hour Vital Signs Date Time Temp Pulse Resp B/P (MAP) Pulse Ox O2 Delivery O2 Flow Rate FiO2 05/24/19 15:00 94 28 121/72 (88) 100 05/24/19 14:50 91 23 30 05/24/19 14:00 94 18 122/69 (86) 100 05/24/19 13:00 97 20 119/66 (83) 100 05/24/19 13:00 98 25 30 05/24/19 12:00 Mechanical Ventilator 05/24/19 12:00 30 05/24/19 12:00 95 05/24/19 12:00 98.5 97 22 120/58 (78) 100 05/24/19 11:30 99 23 30 05/24/19 11:00 91 18 113/66 (82) 100 05/24/19 10:00 92 25 30 05/24/19 10:00 100 15 116/77 (90) 100 05/24/19 09:20 99 05/24/19 09:19 96 25 30 05/24/19 09:00 95 20 123/73 (90) 100 05/24/19 08:00 30 05/24/19 08:00 100 19 125/70 (88) 100 05/24/19 08:00 81 05/24/19 08:00 Mechanical Ventilator 05/24/19 07:00 97.8 98 17 118/70 (86) 100 05/24/19 06:55 102 24 30 05/24/19 06:00 102 18 121/69 (86) 100 05/24/19 05:24 96 22 30 05/24/19 05:00 95 18 115/64 (81) 100 05/24/19 04:00 98 20 109/63 (78) 100 05/24/19 04:00 Mechanical Ventilator 05/24/19 04:00 30 05/24/19 04:00 106 05/24/19 03:00 97 23 111/63 (79) 100 05/24/19 02:47 102 20 30 05/24/19 02:00 99 32 116/71 (86) 99 05/24/19 01:00 99 32 101/70 (80) 99 05/24/19 00:51 99 26 30 05/24/19 00:00 30 05/24/19 00:00 96 20 110/61 (77) 99 05/24/19 00:00 Mechanical Ventilator 05/24/19 00:00 101 05/23/19 23:00 101 25 121/70 (87) 98 05/23/19 22:57 101 25 30 05/23/19 22:00 96 22 110/68 (82) 100 05/23/19 21:00 98 22 111/65 (80) 100 05/23/19 20:37 101 29 30 05/23/19 20:00 30 05/23/19 20:00 98.8 96 22 110/66 (81) 100 05/23/19 20:00 Mechanical Ventilator 05/23/19 20:00 102 05/23/19 19:00 97 22 106/68 (81) 100 05/23/19 18:49 97 22 30 05/23/19 18:00 96 22 114/68 (83) 100 05/23/19 17:29 103 19 30 05/23/19 17:00 97 16 105/70 (82) 100 05/23/19 16:00 30 05/23/19 16:00 98.6 97 20 104/63 (77) 100 05/23/19 16:00 100 05/23/19 16:00 Mechanical Ventilator I&O Intake and Output 05/23/19 05/24/19 18:59 06:59 Intake Total 891 ml 715 ml Output Total 230 ml 120 ml Balance 661 ml 595 ml IV Total 111 ml 55 ml Tube Feeding 720 ml 660 ml Other 60 ml Output Urine Total 230 ml 120 ml # Bowel Movements 5 1 Dressing: other Wound: other Drains: other Cardiovascular: RSR Respiratory: decreased breath sounds Abdomen: soft, non-distended, decreased bowel sounds Extremities: no cyanosis, other Laboratory Tests Test 05/24/19 04:00 White Blood Count 14.5 K/UL (4.8-10.8) H Red Blood Count 2.74 M/UL (4.20-5.40) L Hemoglobin 7.9 G/DL (12.0-16.0) L Hematocrit 26.0 % (37.0-47.0) L Mean Corpuscular Volume 95 FL (80-99) Mean Corpuscular Hemoglobin 28.7 PG (27.0-31.0) Mean Corpuscular Hemoglobin Concent 30.3 G/DL (32.0-36.0) L Red Cell Distribution Width 27.3 % (11.6-14.8) H Platelet Count 61 K/UL (150-450) L Mean Platelet Volume 6.0 FL (6.5-10.1) L Neutrophils (%) (Auto) % (45.0-75.0) Lymphocytes (%) (Auto) % (20.0-45.0) Monocytes (%) (Auto) % (1.0-10.0) Eosinophils (%) (Auto) % (0.0-3.0) Basophils (%) (Auto) % (0.0-2.0) Differential Total Cells Counted 100 Neutrophils % (Manual) 74 % (45-75) Lymphocytes % (Manual) 11 % (20-45) L Monocytes % (Manual) 10 % (1-10) Eosinophils % (Manual) 3 % (0-3) Basophils % (Manual) 0 % (0-2) Band Neutrophils 2 % (0-8) Platelet Estimate Decreased L Platelet Morphology Normal Anisocytosis 2+ Prothrombin Time 16.7 SEC (9.30-11.50) H Prothromb Time International Ratio 1.6 (0.9-1.1) H Activated Partial Thromboplast Time 37 SEC (23-33) H Sodium Level 140 MMOL/L (136-145) Potassium Level 4.4 MMOL/L (3.5-5.1) Chloride Level 110 MMOL/L (98-107) H Carbon Dioxide Level 20 MMOL/L (21-32) L Anion Gap 10 mmol/L (5-15) Blood Urea Nitrogen 39 mg/dL (7-18) H Creatinine 2.0 MG/DL (0.55-1.30) H Estimat Glomerular Filtration Rate 25.7 mL/min (>60) Glucose Level 155 MG/DL (74-106) H Calcium Level 8.2 MG/DL (8.5-10.1) L Phosphorus Level 3.5 MG/DL (2.5-4.9) Magnesium Level 2.0 MG/DL (1.8-2.4) Total Bilirubin 6.3 MG/DL (0.2-1.0) H Direct Bilirubin 5.1 MG/DL (0.0-0.3) H Aspartate Amino Transf (AST/SGOT) 35 U/L (15-37) Alanine Aminotransferase (ALT/SGPT) 14 U/L (12-78) Alkaline Phosphatase 257 U/L (46-116) H Total Protein 5.8 G/DL (6.4-8.2) L Albumin 1.1 G/DL (3.4-5.0) L Globulin 4.7 g/dL Albumin/Globulin Ratio 0.2 (1.0-2.7) L Plan Problems: (1) Sacral decubitus ulcer Assessment & Plan: Pt presented on admission with icteric sclerae and skin. Moisture intertrigo Madhu/left abd folds.(1.5cm long). Moisture intertrigo R groin(8.5cm) slit noted with small amt bleeding. Mons pubis,labia majora and medial aspects of both upper thigh erythematous . Partial thickness wound noted to L thoracic. Base of wound is moist and viable. Edges flat and adherent to base of wound.No exudate noted. (L) 0.6cm x (W)0.8cm. Non-blanchable erythema sacrum,R and L buttocks with scattered shearing .Full thickness pressure injury noted to sacrococcygeal area. Base of wound is steve with small amt slough noted in center.(L) 0.7cm x (W)0.3cm. Area around wound is erythematous non-blanchable with shearing . Full thickness pressure injury R buttocks . Base of wound is moist, with Slough in center.Surrounding area erythematous and denuded. Evolving serous blister L heel.Base of wound is fluctuant with delineated,red margins.(L)3.5cm x (W)5.5cm. Periwound without erythema or fluctuance. R heel firm and blanchable. Tx.Plan: Apply Triad Paste to Sacrum and R buttocks. Cover wounds with Optifoam drsg. Change every 3 days and PRN. Apply Triad Paste to abd folds, R groin,Mons pubis, medial aspects of both upper thighs with each perineal care. Apply Optifoam drsg L thoracic wound. Cover with Optifoam drsg. Change every 3 days and prn. Apply Cavilon Skin Barrier to both heels. Cover each heel with Optifoam drsg. Change every 7 days and prn. APM/CHRISSY Mattress. Reposition at least every 2hours or as tolerated. Off-load heels with pillow (2) Liver cirrhosis Assessment & Plan: DAILY ESTIMATED NEEDS: Needs based on Cirrhosis, Critical care, sepsis/ 58kg adj 22-30 kcals/kg 0191-1838 total kcals 1.2-2 g protein/kg 70-116 g total protein 20-25 mL/kg 6252-4237 total fluid mLs NUTRITION DIAGNOSIS: * Swallowing difficulty R/T respiratory status as evidenced by pt orally intubated, NPO at this time * Altered nutrition related lab values R/T cirrhosis, sepsis, clinical condition as evidenced by elev T bili (5.5), elev NH3 (152), elev LA (6.7), elev creat (2.4). CURRENT TF:NPO PO DIET RECOMMENDATIONS: ORCHESTRA DIRECTOR eval post extubation -> LOW NA ENTERAL NUTRITION RECOMMENDATIONS: Glucerna 1.2 @ 55ml/hr x 24 hrs to provide 1320ml, 1584kcal, 79g prot, 1063ml free water * Rec Glucerna 1.2 to maintain good BG control: h/o DM * As medically appropriate, initiate Glucerna 1.2 @ 25ml/hr x 6 hrs * Advance 10ml q 4-6 hrs as tolerated to goal rate. * HOB over 30 degrees/ water flush per MD. ADDITIONAL RECOMMENDATIONS: * Calibrated bedscale wt for accurate CBW * W/ TF, monitor need for NISS: h/o DM * F/up w/ wound eval: add Miquel 1pkt BID + VIt C 250mg QD * Monitor lytes, replete as needed . (3) Acute on chronic alcoholic liver disease (4) Sepsis Assessment & Plan: Restore insufficiency, leukocytosis, anemia, lactic acidosis , liver insufficiency, sepsis Right line removed and pressure held until hemostasis obtained. Currently no significant hematoma or post injury comp occasion identified. Site clean dry. Left line in place and stable. Will recommend PICC line so femoral line can be removed and more definitive long -term access can be obtained given patient's current medical condition and likelihood for prolonged hospitalization stay US noted and okay paracentesis PICC Continue IV antibiotics We will monitor and follow with recommendations Ultrasound ordered Efrain Whitaker May 24, 2019 15:34
--- NOTE | 2019-05-24 16:26 | NUR ---
Social Service Note No return call from patient's son. Patient continues to require medical intervention. Will continue to monitor and be available as needed.
--- NOTE | 2019-05-24 17:33 | Internal Med Progress Note ---
Subjective Date of Service: May 24, 2019 Physician Name Jose Bnejamin Attending Physician Goldy Amador MD Current Medications Medications (Trade) Dose Ordered Sig/Almaz Route PRN Reason Start Time Stop Time Status Last Admin Dose Admin Chlorhexidine Gluconate (Shannno-Hex 2%) 1 applic DAILY@1999 TOPIC 05/18/19 20:00 06/17/19 19:59 05/23/19 20:22 Dextrose (Dextrose 50%) 25 ml Q30M PRN IV Hypoglycemia 05/17/19 21:45 06/16/19 21:44 Dextrose (Dextrose 50%) 50 ml Q30M PRN IV Hypoglycemia 05/17/19 21:45 06/16/19 21:44 Haloperidol Lactate 5 mg/ Dextrose 56 ml @ 224 mls/hr Q1H PRN IVPB Agitation 05/23/19 10:45 06/22/19 10:44 05/23/19 10:54 Lactulose (Cephulac) 10 gm THREE TIMES A DAY NG 05/20/19 13:00 06/17/19 10:29 05/24/19 14:17 Lorazepam (Ativan 2mg/ml 1ml) 0.5 mg Q4H PRN IV For Anxiety 05/17/19 21:45 05/24/19 21:44 05/24/19 05:57 Morphine Sulfate (Morphine Sulfate) 1 mg Q4H PRN IVP For Pain 05/17/19 21:45 05/24/19 21:44 05/24/19 15:17 Ondansetron HCl (Zofran) 4 mg Q6H PRN IVP Nausea & Vomiting 05/17/19 21:45 06/16/19 21:44 05/21/19 15:07 Pantoprazole (Protonix) 40 mg EVERY 12 HOURS IVP 05/18/19 21:00 06/17/19 20:59 05/24/19 08:39 Piperacillin Sod/ Tazobactam Sod 3.375 gm/Sodium Chloride 110 ml @ 27.5 mls/hr EVERY 8 HOURS IVPB 05/24/19 14:00 05/29/19 13:59 05/24/19 14:21 Rifaximin (Xifaxan) 550 mg EVERY 12 HOURS NG 05/18/19 21:00 05/25/19 20:59 05/24/19 08:40 Allergies: Coded Allergies: No Known Allergies (Unverified , 01/31/19) ROS Limited/Unobtainable: Yes Subjective 58 YO F admitted with respiratory failure and presumed septic shock. Now UTI. Cover for Int Eloy-Dr Amador. Intubated and sedated. ICU. S/P paracentesis 05/19 Objective Last Vital Signs Date Time Temp Pulse Resp B/P (MAP) Pulse Ox O2 Delivery O2 Flow Rate FiO2 05/24/19 17:00 97 19 120/69 (86) 100 05/24/19 16:30 30 05/24/19 16:03 98.5 05/24/19 16:00 Mechanical Ventilator Laboratory Tests Test 05/24/19 04:00 White Blood Count 14.5 K/UL (4.8-10.8) H Red Blood Count 2.74 M/UL (4.20-5.40) L Hemoglobin 7.9 G/DL (12.0-16.0) L Hematocrit 26.0 % (37.0-47.0) L Mean Corpuscular Volume 95 FL (80-99) Mean Corpuscular Hemoglobin 28.7 PG (27.0-31.0) Mean Corpuscular Hemoglobin Concent 30.3 G/DL (32.0-36.0) L Red Cell Distribution Width 27.3 % (11.6-14.8) H Platelet Count 61 K/UL (150-450) L Mean Platelet Volume 6.0 FL (6.5-10.1) L Neutrophils (%) (Auto) % (45.0-75.0) Lymphocytes (%) (Auto) % (20.0-45.0) Monocytes (%) (Auto) % (1.0-10.0) Eosinophils (%) (Auto) % (0.0-3.0) Basophils (%) (Auto) % (0.0-2.0) Differential Total Cells Counted 100 Neutrophils % (Manual) 74 % (45-75) Lymphocytes % (Manual) 11 % (20-45) L Monocytes % (Manual) 10 % (1-10) Eosinophils % (Manual) 3 % (0-3) Basophils % (Manual) 0 % (0-2) Band Neutrophils 2 % (0-8) Platelet Estimate Decreased L Platelet Morphology Normal Anisocytosis 2+ Prothrombin Time 16.7 SEC (9.30-11.50) H Prothromb Time International Ratio 1.6 (0.9-1.1) H Activated Partial Thromboplast Time 37 SEC (23-33) H Sodium Level 140 MMOL/L (136-145) Potassium Level 4.4 MMOL/L (3.5-5.1) Chloride Level 110 MMOL/L (98-107) H Carbon Dioxide Level 20 MMOL/L (21-32) L Anion Gap 10 mmol/L (5-15) Blood Urea Nitrogen 39 mg/dL (7-18) H Creatinine 2.0 MG/DL (0.55-1.30) H Estimat Glomerular Filtration Rate 25.7 mL/min (>60) Glucose Level 155 MG/DL (74-106) H Calcium Level 8.2 MG/DL (8.5-10.1) L Phosphorus Level 3.5 MG/DL (2.5-4.9) Magnesium Level 2.0 MG/DL (1.8-2.4) Total Bilirubin 6.3 MG/DL (0.2-1.0) H Direct Bilirubin 5.1 MG/DL (0.0-0.3) H Aspartate Amino Transf (AST/SGOT) 35 U/L (15-37) Alanine Aminotransferase (ALT/SGPT) 14 U/L (12-78) Alkaline Phosphatase 257 U/L (46-116) H Total Protein 5.8 G/DL (6.4-8.2) L Albumin 1.1 G/DL (3.4-5.0) L Globulin 4.7 g/dL Albumin/Globulin Ratio 0.2 (1.0-2.7) L Intake and Output 05/23/19 05/24/19 18:59 06:59 Intake Total 891 ml 715 ml Output Total 230 ml 120 ml Balance 661 ml 595 ml IV Total 111 ml 55 ml Tube Feeding 720 ml 660 ml Other 60 ml Output Urine Total 230 ml 120 ml # Bowel Movements 5 1 Objective PHYSICAL EXAMINATION: GENERAL: The patient is a well-developed and well-nourished obese female, who is intubated and sedated. HEENT: Eyes, pupils are equal and responsive to light and accommodation. Extraocular movements are intact. NECK: Supple without lymphadenopathy. CHEST: Mech vent; Coarse upper breath sounds, otherwise without wheezes or rales. CARDIOVASCULAR: Regular rhythm, rate. S1, S2 normal without murmurs, rubs, or gallops. ABDOMEN: Soft, distended with decreased bowel sounds. No evidence of hepatosplenomegaly. Currently, no rebound or guarding noted. EXTREMITIES: Negative for clubbing, cyanosis, or edema. RECTAL/GENITAL: Not performed. NEUROLOGICAL: Unable to assess. Assessment/Plan Assessment/Plan ASSESSMENT: This is a 58-year-old female. 1. Respiratory failure. 2. Urinary tract infection=klebsiella pneumoniae 3. Probable sepsis. 4. Probable septic shock. 5. Alcoholic cirrhosis of the liver. 6. Hypertension. 7. Diabetes type 2. 8. Ascites. 9. Hypercholesterolemia. TREATMENT: 1. Respiratory failure. A Pulmonary consultation has been obtained with Dr. Shireen Khan. The patient is currently intubated and sedated in the intensive care unit. We will follow recommendations of Pulmonary. 2. Urinary tract infection. An Infectious Disease consultation has been obtained with Dr. Hu. ABX=zosyn Urine culture=klebsiella 3. Probable sepsis-increased WBC. See ID note 4. Septic shock. 5. Alcoholic cirrhosis of liver. A Gastroenterology consultation has been obtained with Dr. Jon Torres. S/P paracentesis 05/19/19 6. Hypertension. The patient is currently hypotensive. Hold all antihypertensive medications. 7. Diabetes type 2. A NovoLog sliding scale has been instituted. 8. Ascites, as above. A Gastroenterology consultation has been obtained with Dr. Jon Torres. S/P paracentesis 05/19/19; repeat scheduled 05/25/19 9. Hypercholesterolemia. Jose Benjamin MD May 24, 2019 17:33
--- NOTE | 2019-05-24 19:20 | NUR ---
HAND-OFF: Report and PT given to CHAVA Joy.
--- NOTE | 2019-05-24 19:22 | NUR ---
RESPIRATORY NOTE: Received pt on AC 18, 450VT, 30%, PEEP +5. Pt intubated w/ ETT 7.5 @ 19cm lipline, secured by anchorfast. Pt asleep, responds to stimuli. B/S david. clear/diminished, sxn small amounts of thick/thin, pale-yellow secretions. Both hands on soft restraints to prevent pt from self-extubation. Vent plugged into red outlet, ambubag at bedside. Pt in no apparent distress at this time. Will continue to monitor pt.
--- NOTE | 2019-05-24 19:30 | NUR ---
NURSE NOTES: Received pt awakeslightly restless with bilateral soft wrist restraints on for safety to avoid self extubation. Orally intubated on ac mode, SR _ST low 100s on the monitor. BP stable. Afebrile. Tolererated OGT fdg. Glucerna 1.2 at 60ml/hr, noresiduals . Pt abdomen is enlarged as well mds are aware, Pt has multiple skin issues ple see skin integrity. Tx been applied and on p200 mattress. Turned q 2hrs prn with good skin care done. Will continue to monitor.
[2019-05-24] MEDS: Dyna-Hex 2% Top Sol 2oz TOPIC SCH (20:09)
--- NOTE | 2019-05-24 21:35 | Diagnostic Imaging Report ---
APPROVED REPORT CPT Code: 97598 Symptoms Comments: Edema Follow-up film BILATERAL: Common femoral artery waveform analysis is within normal limits at rest. Color flow duplex sonography reveals patency of the superficial femoral and popliteal, and tibial arteries. There is no evidence of stenosis or occlusion within these segments. Doppler tibial artery waveform analysis is within normal limits bilaterally.
--- NOTE | 2019-05-24 21:36 | Diagnostic Imaging Report ---
APPROVED REPORT CPT Code: 38338 Present Symptoms Comments: R/O DVT Risk Factors Prior Pulmonary Embolism Imaging reveals a patent deep venous system bilaterally. There is no evidence of thrombus within the common femoral, superficial femoral, popliteal or tibial segments. The greater saphenous veins are within normal limits. Doppler indicates normal spontaneous flow within these segments.
[2019-05-24] MEDS: Haloperidol Lactate 5 MG in D5W 55 ML IVPB PRN (21:50)
--- NOTE | 2019-05-24 21:50 | NUR ---
NURSE NOTES: Pt is agitated- Haldol 5mg iVPB was given.
--- NOTE | 2019-05-24 23:00 | NUR ---
NURSE NOTES: Resting well at this time with vss.
[2019-05-25] VITALS (24 sets, daily range): BP systolic 99–125; BP diastolic 59–76
--- NOTE | 2019-05-25 01:00 | NUR ---
NURSE NOTES: Suctioned and turned to sides for comfort. vss.
[2019-05-25] MEDS: Haloperidol Lactate 5 MG in D5W 55 ML IVPB PRN ×2 (02:43→05:39)
--- NOTE | 2019-05-25 02:44 | NUR ---
NURSE NOTES: Haldol 5mg ivpb given due to agitation
--- NOTE | 2019-05-25 05:00 | NUR ---
NURSE NOTES: Complete bath with bed changed done.
[2019-05-25 05:06] LABS: HEMATOCRIT 24.2 % (37.0-47.0); HEMOGLOBIN 7.3 G/DL (12.0-16.0); MEAN CORPUSCULAR VOLUME 97 FL (80-99); PLATELET COUNT 70 K/UL (150-450); RED BLOOD COUNT 2.49 M/UL (4.20-5.40); RED CELL DISTRIBUTION WIDTH 27.9 % (11.6-14.8); WHITE BLOOD COUNT 14.1 K/UL (4.8-10.8)
[2019-05-25] MEDS: Piperacillin/Tazobactam 3.375 GM in NS 110 ML IVPB SCH ×3 (05:39→21:26)
[2019-05-25 05:44] LABS: ALANINE AMINOTRANSFERASE 10 U/L (12-78); ALBUMIN 1.1 G/DL (3.4-5.0); ALBUMIN/GLOBULIN RATIO 0.2 (1.0-2.7); ALKALINE PHOSPHATASE 228 U/L (46-116); ANION GAP 10 mmol/L (5-15); ASPARTATE AMINO TRANSFERASE 38 U/L (15-37); BILIRUBIN,TOTAL 6.5 MG/DL (0.2-1.0); BLOOD UREA NITROGEN 42 mg/dL (7-18); CALCIUM 8.1 MG/DL (8.5-10.1); CARBON DIOXIDE 20 MMOL/L (21-32); CHLORIDE 109 MMOL/L (98-107); POTASSIUM 4.7 MMOL/L (3.5-5.1); SODIUM 138 MMOL/L (136-145)
--- NOTE | 2019-05-25 06:00 | NUR ---
NURSE NOTES: No resp. distress noted. For weaning trial this am. VSS
[2019-05-25 06:15] LABS: BILIRUBIN,DIRECT 5.4 MG/DL (0.0-0.3)
--- NOTE | 2019-05-25 07:00 | NUR ---
RESPIRATORY NOTE: Received pt on ordered vent settings. Pt airway is patent and secured. Suctioned pt prn. Vent alarms are on and audible. Vent is plugged into red outlet. Will monitor pt progress.
--- NOTE | 2019-05-25 07:27 | NUR ---
NURSE NOTES: Received pt from CHAVA Joy in stable condition with no cardiopulmonary distress noted. Pt is asleep in bed, 7.5 ETT 19cm at the Right lip line AC18 [id number] FiO2 30% Peep5. OGT noted running 1.2 at 60cc/hr. F/C noted draining gisselle urine. Per Benita, Dr. Byers is aware of oliguria. Skin alterations noted. Pt has a RICK PICC. Bilat soft wrist restraints noted, skin on both wrists are intact and radial pulses present. Bed is in lowest position w/alarm on, side rails up x2, call light within reach. Will continue to monitor. Addendum: 05/25/19 at 0956 by Raven Dow RN Amendment: SCDs on bilat lower legs
--- NOTE | 2019-05-25 07:37 | NUR ---
HAND-OFF: Report given to Diana LARSEN.
[2019-05-25] MEDS: Pantoprazole Inj IVP SCH ×2 (08:09→20:19)
[2019-05-25] MEDS: Lactulose 20gm/30ml UDC NG SCH ×3 (08:09→17:19)
--- NOTE | 2019-05-25 08:25 | NUR ---
RADIOLOGY DEPT., CHEST X-RAY DONE.-P.DYE
[2019-05-25 08:48] LABS: PHOSPHORUS 3.6 MG/DL (2.5-4.9)
--- NOTE | 2019-05-25 08:53 | General Progress Note ---
Assessment/Plan Problem List: (1) Liver cirrhosis ICD Codes: K74.60 - Unspecified cirrhosis of liver SNOMED: 99671106 (2) Sepsis ICD Codes: A41.9 - Sepsis, unspecified organism SNOMED: 74249136 Qualifiers: Qualified Codes: A41.9 - Sepsis, unspecified organism (3) Anasarca ICD Codes: R60.1 - Generalized edema SNOMED: 044013323, 935354614 (4) Ascites ICD Codes: R18.8 - Other ascites SNOMED: 973509729 (5) Anemia ICD Codes: D64.9 - Anemia, unspecified SNOMED: 725922575 (6) Hepatic encephalopathy ICD Codes: K72.90 - Hepatic failure, unspecified without coma SNOMED: 19910593 (7) Acute respiratory failure ICD Codes: J96.00 - Acute respiratory failure, unspecified whether with hypoxia or hypercapnia SNOMED: 91908401 (8) ETOH abuse ICD Codes: F10.10 - Alcohol abuse, uncomplicated SNOMED: 69283891 Assessment/Plan: lactulose cont Xifaxan neg stool ob fu H&H and transfuse prn ppi NGTf still on vent abx per ID Subjective ROS Limited/Unobtainable: No Allergies: Coded Allergies: No Known Allergies (Unverified , 01/31/19) Objective Last 24 Hour Vital Signs Date Time Temp Pulse Resp B/P (MAP) Pulse Ox O2 Delivery O2 Flow Rate FiO2 05/25/19 08:33 99 05/25/19 08:33 97 19 30 05/25/19 08:00 30 05/25/19 08:00 98.6 94 18 103/61 (75) 100 05/25/19 08:00 Mechanical Ventilator 05/25/19 07:00 96 20 112/67 (82) 99 05/25/19 07:00 100 33 30 05/25/19 06:00 97 20 113/63 (80) 99 05/25/19 05:00 100 23 115/68 (84) 100 05/25/19 04:58 101 23 30 05/25/19 04:00 97 05/25/19 04:00 99 19 106/65 (79) 99 05/25/19 04:00 Mechanical Ventilator 05/25/19 04:00 98.2 99 19 106/65 (79) 99 05/25/19 04:00 30 9/25/19 03:00 94 18 99/62 (74) 100 05/25/19 02:59 95 18 30 05/25/19 02:00 98 20 105/67 (80) 100 05/25/19 02:00 98 20 105/67 (80) 100 05/25/19 01:00 98 14 107/67 (80) 100 05/25/19 01:00 98.0 98 19 107/67 (80) 100 05/25/19 01:00 98 14 107/67 (80) 100 05/25/19 00:50 98 28 30 05/25/19 00:00 30 05/25/19 00:00 98.0 98 19 108/76 (87) 100 05/25/19 00:00 97 23 108/76 (87) 100 05/25/19 00:00 98 05/25/19 00:00 97 23 108/76 (87) 100 05/25/19 00:00 Mechanical Ventilator 05/24/19 23:05 100 21 30 05/24/19 23:00 95 23 118/69 (85) 99 05/24/19 22:00 98 23 117/69 (85) 99 05/24/19 21:00 99 22 118/68 (85) 100 05/24/19 20:52 100 26 30 05/24/19 20:00 30 05/24/19 20:00 Mechanical Ventilator 05/24/19 20:00 98.2 99 21 117/72 (87) 100 05/24/19 20:00 99 05/24/19 19:19 97 23 30 05/24/19 18:00 95 05/24/19 18:00 97 19 124/68 (86) 99 05/24/19 17:00 97 19 120/69 (86) 100 05/24/19 16:30 97 22 30 05/24/19 16:03 98.5 05/24/19 16:00 98.6 95 19 118/69 (85) 100 05/24/19 16:00 Mechanical Ventilator 05/24/19 16:00 30 05/24/19 15:00 94 28 121/72 (88) 100 05/24/19 14:50 91 23 30 05/24/19 14:00 94 18 122/69 (86) 100 05/24/19 13:00 97 20 119/66 (83) 100 05/24/19 13:00 98 25 30 05/24/19 12:00 Mechanical Ventilator 05/24/19 12:00 30 05/24/19 12:00 95 05/24/19 12:00 98.5 97 22 120/58 (78) 100 05/24/19 11:30 99 23 30 05/24/19 11:00 91 18 113/66 (82) 100 05/24/19 10:00 92 25 30 05/24/19 10:00 100 15 116/77 (90) 100 05/24/19 09:20 99 05/24/19 09:19 96 25 30 05/24/19 09:00 95 20 123/73 (90) 100 Intake and Output 05/24/19 05/25/19 19:00 07:00 Intake Total 740.0 ml 918 ml Output Total 115 ml 150 ml Balance 625.0 ml 768 ml Free Water 30 ml IV Total 110.0 ml 168 ml Tube Feeding 540 ml 720 ml Other 90 ml Output Urine Total 115 ml 150 ml # Bowel Movements 1 5 Laboratory Tests 05/25/19 03:40: White Blood Count 14.1H, Red Blood Count 2.49L, Hemoglobin 7.3L, Hematocrit 24.2L, Mean Corpuscular Volume 97, Mean Corpuscular Hemoglobin 29.4, Mean Corpuscular Hemoglobin Concent 30.3L, Red Cell Distribution Width 27.9H, Platelet Count 70L, Mean Platelet Volume 6.6, Neutrophils (%) (Auto) , Lymphocytes (%) (Auto) , Monocytes (%) (Auto) , Eosinophils (%) (Auto) , Basophils (%) (Auto) , Differential Total Cells Counted 100, Neutrophils % ( Manual) 74, Lymphocytes % (Manual) 13L, Monocytes % (Manual) 9, Eosinophils % ( Manual) 2, Basophils % (Manual) 0, Band Neutrophils 2, Nucleated Red Blood Cells 3, Platelet Estimate DecreasedL, Platelet Morphology Normal, Hypochromasia 1+, Anisocytosis 2+, Microcytosis 1+, Sodium Level 138, Potassium Level 4.7, Chloride Level 109H, Carbon Dioxide Level 20L, Anion Gap 10, Blood Urea Nitrogen 42H, Creatinine 2.0H, Estimat Glomerular Filtration Rate 25.7, Glucose Level 202H, Calcium Level 8.1L, Phosphorus Level 3.6, Magnesium Level 2.0, Total Bilirubin 6.5H, Direct Bilirubin 5.4H, Aspartate Amino Transf (AST/ SGOT) 38H, Alanine Aminotransferase (ALT/SGPT) 10L, Alkaline Phosphatase 228H, Pro-B-Type Natriuretic Peptide 780H, Total Protein 5.6L, Albumin 1.1L, Globulin 4.5, Albumin/Globulin Ratio 0.2L Height (Feet): 5 Height (Inches): 0.00 Weight (Pounds): 192 General Appearance: lethargic EENT: normal ENT inspection Neck: supple Cardiovascular: normal rate Respiratory/Chest: decreased breath sounds Abdomen: normal bowel sounds, non tender, soft Extremities: non-tender Jon Torres MD May 25, 2019 08:53
--- NOTE | 2019-05-25 10:00 | NUR ---
NURSE NOTES:Pt cleaned and repositioned. 1 BM noted. Skin care performed. Oral care provided. Dr. Byers came in to see pt and I informed him about lack of Hgb goal on the chart, he said he will look into it and place orders if needed. Will continue to monitor. Left a message for Dr. Khan also about lack of insulin coverage. Awaiting call back
--- NOTE | 2019-05-25 10:23 | NUR ---
Social Service Note Message left for patient's son Matteo. SHE and Dr. Khan spoke with son Claude Mijares [phone] who [address] in [place]. Khan provided a clinical picture. Claude states he is the primary decision maker. There is no advance directive. Son is in agreement with DNR/DNI, comfort care and terminal extubation. Claude will be in contact with his brother Matteo. Primary nurse and charge nurse aware. arrangements not in place at this time. Will continue to monitor and follow up.
--- NOTE | 2019-05-25 10:45 | Pulmonolgy Critical Care Note ---
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 Discussed with: nurses, consultants, family member - d/w pts son in [place], he agreed with extubation and change of code to DNR, will go ahead Critical Care - Objective Last 24 Hour Vital Signs Date Time Temp Pulse Resp B/P (MAP) Pulse Ox O2 Delivery O2 Flow Rate FiO2 05/25/19 10:00 97 18 108/64 (79) 100 05/25/19 09:00 99 26 109/63 (78) 100 05/25/19 08:33 99 05/25/19 08:33 97 19 30 05/25/19 08:00 30 05/25/19 08:00 98.6 94 18 103/61 (75) 100 05/25/19 08:00 Mechanical Ventilator 05/25/19 08:00 96 05/25/19 07:00 96 20 112/67 (82) 99 05/25/19 07:00 100 33 30 05/25/19 06:00 97 20 113/63 (80) 99 05/25/19 05:00 100 23 115/68 (84) 100 05/25/19 04:58 101 23 30 05/25/19 04:00 97 05/25/19 04:00 99 19 106/65 (79) 99 05/25/19 04:00 Mechanical Ventilator 05/25/19 04:00 98.2 99 19 106/65 (79) 99 05/25/19 04:00 30 05/25/19 03:00 94 18 99/62 (74) 100 05/25/19 02:59 95 18 30 05/25/19 02:00 98 20 105/67 (80) 100 05/25/19 02:00 98 20 105/67 (80) 100 05/25/19 01:00 98 14 107/67 (80) 100 05/25/19 01:00 98.0 98 19 107/67 (80) 100 05/25/19 01:00 98 14 107/67 (80) 100 05/25/19 00:50 98 28 30 05/25/19 00:00 30 05/25/19 00:00 98.0 98 19 108/76 (87) 100 05/25/19 00:00 97 23 108/76 (87) 100 05/25/19 00:00 98 05/25/19 00:00 97 23 108/76 (87) 100 05/25/19 00:00 Mechanical Ventilator 05/24/19 23:05 100 21 30 05/24/19 23:00 95 23 118/69 (85) 99 05/24/19 22:00 98 23 117/69 (85) 99 05/24/19 21:00 99 22 118/68 (85) 100 05/24/19 20:52 100 26 30 05/24/19 20:00 30 05/24/19 20:00 Mechanical Ventilator 05/24/19 20:00 98.2 99 21 117/72 (87) 100 05/24/19 20:00 99 05/24/19 19:19 97 23 30 05/24/19 18:00 95 05/24/19 18:00 97 19 124/68 (86) 99 05/24/19 17:00 97 19 120/69 (86) 100 05/24/19 16:30 97 22 30 05/24/19 16:03 98.5 05/24/19 16:00 98.6 95 19 118/69 (85) 100 05/24/19 16:00 Mechanical Ventilator 05/24/19 16:00 30 05/24/19 15:00 94 28 121/72 (88) 100 05/24/19 14:50 91 23 30 05/24/19 14:00 94 18 122/69 (86) 100 05/24/19 13:00 97 20 119/66 (83) 100 05/24/19 13:00 98 25 30 05/24/19 12:00 Mechanical Ventilator 05/24/19 12:00 30 05/24/19 12:00 95 05/24/19 12:00 98.5 97 22 120/58 (78) 100 05/24/19 11:30 99 23 30 05/24/19 11:00 91 18 113/66 (82) 100 Status: awake Condition: grave HEENT: atraumatic Lungs: clear Heart: HR/BP stable Abdomen: soft, feeding tube Decubiti: location Micro: Microbiology Date/Time Source Procedure Growth Status 05/24/19 11:30 Sputum Expectorated Gram Stain - Final Resulted 05/24/19 11:30 Sputum Expectorated Sputum Culture Pending Resulted 05/24/19 15:00 Urine,Clean Catch Urine Culture - Preliminary NO GROWTH Resulted Critical Care - Subjective ROS Limited/Unobtainable: No Condition: critical EKG Rhythm: Sinus Rhythm FI02: 30 Vent Support Breath Rate: 18 Vent Support Mode: AC Vent Tidal Volume: 450 Sputum Amount: Scant PEEP: 5.0 PIP: 26 Tube Feeding Amount: 60 I&O: Intake and Output 05/24/19 05/25/19 19:00 07:00 Intake Total 740.0 ml 918 ml Output Total 115 ml 150 ml Balance 625.0 ml 768 ml Free Water 30 ml IV Total 110.0 ml 168 ml Tube Feeding 540 ml 720 ml Other 90 ml Output Urine Total 115 ml 150 ml # Bowel Movements 1 5 CXR: MARIA [place] ROS[place]IO ET-Tube: 7.5 ET Position: 19 Labs: Laboratory Tests Test 05/25/19 03:40 White Blood Count 14.1 K/UL (4.8-10.8) H Red Blood Count 2.49 M/UL (4.20-5.40) L Hemoglobin 7.3 G/DL (12.0-16.0) L Hematocrit 24.2 % (37.0-47.0) L Mean Corpuscular Volume 97 FL (80-99) Mean Corpuscular Hemoglobin 29.4 PG (27.0-31.0) Mean Corpuscular Hemoglobin Concent 30.3 G/DL (32.0-36.0) L Red Cell Distribution Width 27.9 % (11.6-14.8) H Platelet Count 70 K/UL (150-450) L Mean Platelet Volume 6.6 FL (6.5-10.1) Neutrophils (%) (Auto) % (45.0-75.0) Lymphocytes (%) (Auto) % (20.0-45.0) Monocytes (%) (Auto) % (1.0-10.0) Eosinophils (%) (Auto) % (0.0-3.0) Basophils (%) (Auto) % (0.0-2.0) Differential Total Cells Counted 100 Neutrophils % (Manual) 74 % (45-75) Lymphocytes % (Manual) 13 % (20-45) L Monocytes % (Manual) 9 % (1-10) Eosinophils % (Manual) 2 % (0-3) Basophils % (Manual) 0 % (0-2) Band Neutrophils 2 % (0-8) Nucleated Red Blood Cells 3 /100 WBC Platelet Estimate Decreased L Platelet Morphology Normal Hypochromasia 1+ Anisocytosis 2+ Microcytosis 1+ Sodium Level 138 MMOL/L (136-145) Potassium Level 4.7 MMOL/L (3.5-5.1) Chloride Level 109 MMOL/L (98-107) H Carbon Dioxide Level 20 MMOL/L (21-32) L Anion Gap 10 mmol/L (5-15) Blood Urea Nitrogen 42 mg/dL (7-18) H Creatinine 2.0 MG/DL (0.55-1.30) H Estimat Glomerular Filtration Rate 25.7 mL/min (>60) Glucose Level 202 MG/DL (74-106) H Calcium Level 8.1 MG/DL (8.5-10.1) L Phosphorus Level 3.6 MG/DL (2.5-4.9) Magnesium Level 2.0 MG/DL (1.8-2.4) Total Bilirubin 6.5 MG/DL (0.2-1.0) H Direct Bilirubin 5.4 MG/DL (0.0-0.3) H Aspartate Amino Transf (AST/SGOT) 38 U/L (15-37) H Alanine Aminotransferase (ALT/SGPT) 10 U/L (12-78) L Alkaline Phosphatase 228 U/L (46-116) H Pro-B-Type Natriuretic Peptide 780 pg/mL (0-125) H Total Protein 5.6 G/DL (6.4-8.2) L Albumin 1.1 G/DL (3.4-5.0) L Globulin 4.5 g/dL Albumin/Globulin Ratio 0.2 (1.0-2.7) L Shireen Khan MD May 25, 2019 10:45
--- NOTE | 2019-05-25 11:24 | NUR ---
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 98.6 HR 94 RR 26 B/P 109/63 AC 18 TV 450 FIO2 30% PEEP 5 PS 8 WBC 14.1 H/H 7.3/24.2 BUN 42 CR 2.0 AST 38 IS: ZOSYN IV HALDOL IV WEANING ICU STATUS
--- NOTE | 2019-05-25 11:56 | NUR ---
NURSE NOTES: Pt repositioned, oral care provided. Pt is awake in bed, AAOx1. No c/o pain at this time.
--- NOTE | 2019-05-25 12:16 | Nephrology Progress Note ---
Assessment/Plan Problem List: (1) ATN (acute tubular necrosis) (2) Sepsis (3) Acute respiratory failure (4) Acute on chronic alcoholic liver disease Assessment: worsening bili (5) Anemia Assessment Renal failure- Acute On May 09, 2019 normal renal parameters Severe Anemia, Acute on chronic- Acute part from right groin attempted line insertion Severe HypoAlbuminemia, Cirrhosis, ALD, Ascites Sepsis- High lactic Acid Acute respiratory failure Previous gram negative bacteremia / Sepsis Plan Hydrate- K supplement Antibiotics Monitor renal parameters avoid nephrotoxics transfuse as needed- per orders discussed with RN Subjective ROS Limited/Unobtainable: Yes Objective Objective Last 24 Hour Vital Signs Date Time Temp Pulse Resp B/P (MAP) Pulse Ox O2 Delivery O2 Flow Rate FiO2 05/25/19 12:00 98.7 100 19 125/69 (87) 100 05/25/19 12:00 Mechanical Ventilator 05/25/19 12:00 30 05/25/19 11:00 101 20 118/68 (85) 100 05/25/19 10:35 95 19 30 05/25/19 10:00 97 18 108/64 (79) 100 05/25/19 09:00 99 26 109/63 (78) 100 05/25/19 08:33 99 05/25/19 08:33 97 19 30 05/25/19 08:00 30 05/25/19 08:00 98.6 94 18 103/61 (75) 100 05/25/19 08:00 Mechanical Ventilator 05/25/19 08:00 96 05/25/19 07:00 96 20 112/67 (82) 99 05/25/19 07:00 100 33 30 05/25/19 06:00 97 20 113/63 (80) 99 05/25/19 05:00 100 23 115/68 (84) 100 05/25/19 04:58 101 23 30 05/25/19 04:00 97 05/25/19 04:00 99 19 106/65 (79) 99 05/25/19 04:00 Mechanical Ventilator 05/25/19 04:00 98.2 99 19 106/65 (79) 99 05/25/19 04:00 30 05/25/19 03:00 94 18 99/62 (74) 100 05/25/19 02:59 95 18 30 05/25/19 02:00 98 20 105/67 (80) 100 9/25/19 02:00 98 20 105/67 (80) 100 05/25/19 01:00 98 14 107/67 (80) 100 05/25/19 01:00 98.0 98 19 107/67 (80) 100 05/25/19 01:00 98 14 107/67 (80) 100 05/25/19 00:50 98 28 30 05/25/19 00:00 30 05/25/19 00:00 98.0 98 19 108/76 (87) 100 05/25/19 00:00 97 23 108/76 (87) 100 05/25/19 00:00 98 05/25/19 00:00 97 23 108/76 (87) 100 05/25/19 00:00 Mechanical Ventilator 05/24/19 23:05 100 21 30 05/24/19 23:00 95 23 118/69 (85) 99 05/24/19 22:00 98 23 117/69 (85) 99 05/24/19 21:00 99 22 118/68 (85) 100 05/24/19 20:52 100 26 30 05/24/19 20:00 30 05/24/19 20:00 Mechanical Ventilator 05/24/19 20:00 98.2 99 21 117/72 (87) 100 05/24/19 20:00 99 05/24/19 19:19 97 23 30 05/24/19 18:00 95 05/24/19 18:00 97 19 124/68 (86) 99 05/24/19 17:00 97 19 120/69 (86) 100 05/24/19 16:30 97 22 30 05/24/19 16:03 98.5 05/24/19 16:00 98.6 95 19 118/69 (85) 100 05/24/19 16:00 Mechanical Ventilator 05/24/19 16:00 30 05/24/19 15:00 94 28 121/72 (88) 100 05/24/19 14:50 91 23 30 05/24/19 14:00 94 18 122/69 (86) 100 05/24/19 13:00 97 20 119/66 (83) 100 05/24/19 13:00 98 25 30 Intake and Output 05/24/19 05/25/19 19:00 07:00 Intake Total 740.0 ml 918 ml Output Total 115 ml 150 ml Balance 625.0 ml 768 ml Free Water 30 ml IV Total 110.0 ml 168 ml Tube Feeding 540 ml 720 ml Other 90 ml Output Urine Total 115 ml 150 ml # Bowel Movements 1 5 Laboratory Tests 05/25/19 03:40: White Blood Count 14.1H, Red Blood Count 2.49L, Hemoglobin 7.3L, Hematocrit 24.2L, Mean Corpuscular Volume 97, Mean Corpuscular Hemoglobin 29.4, Mean Corpuscular Hemoglobin Concent 30.3L, Red Cell Distribution Width 27.9H, Platelet Count 70L, Mean Platelet Volume 6.6, Neutrophils (%) (Auto) , Lymphocytes (%) (Auto) , Monocytes (%) (Auto) , Eosinophils (%) (Auto) , Basophils (%) (Auto) , Differential Total Cells Counted 100, Neutrophils % ( Manual) 74, Lymphocytes % (Manual) 13L, Monocytes % (Manual) 9, Eosinophils % ( Manual) 2, Basophils % (Manual) 0, Band Neutrophils 2, Nucleated Red Blood Cells 3, Platelet Estimate DecreasedL, Platelet Morphology Normal, Hypochromasia 1+, Anisocytosis 2+, Microcytosis 1+, Sodium Level 138, Potassium Level 4.7, Chloride Level 109H, Carbon Dioxide Level 20L, Anion Gap 10, Blood Urea Nitrogen 42H, Creatinine 2.0H, Estimat Glomerular Filtration Rate 25.7, Glucose Level 202H, Calcium Level 8.1L, Phosphorus Level 3.6, Magnesium Level 2.0, Total Bilirubin 6.5H, Direct Bilirubin 5.4H, Aspartate Amino Transf (AST/ SGOT) 38H, Alanine Aminotransferase (ALT/SGPT) 10L, Alkaline Phosphatase 228H, Pro-B-Type Natriuretic Peptide 780H, Total Protein 5.6L, Albumin 1.1L, Globulin 4.5, Albumin/Globulin Ratio 0.2L Height (Feet): 5 Height (Inches): 0.00 Weight (Pounds): 192 General Appearance: no apparent distress EENT: other Cardiovascular: tachycardia Respiratory/Chest: decreased breath sounds Abdomen: distended Objective no change Jovany Byers MD May 25, 2019 12:15
[2019-05-25] MEDS: NovoLOG Insulin Flexpen SUBQ SCH ×3 (12:33→23:46)
--- NOTE | 2019-05-25 13:19 | Internal Med Progress Note ---
Subjective Date of Service: May 25, 2019 Physician Name Jose Benjamin Attending Physician Goldy Amador MD Current Medications Medications (Trade) Dose Ordered Sig/Almaz Route PRN Reason Start Time Stop Time Status Last Admin Dose Admin Chlorhexidine Gluconate (Shannon-Hex 2%) 1 applic [email or web address]@1999 TOPIC 05/18/19 20:00 06/17/19 19:59 05/24/19 20:09 Dextrose (Dextrose 50%) 25 ml Q30M PRN IV Hypoglycemia 05/17/19 21:45 06/16/19 21:44 Dextrose (Dextrose 50%) 50 ml Q30M PRN IV Hypoglycemia 05/17/19 21:45 06/16/19 21:44 Haloperidol Lactate 5 mg/ Dextrose 56 ml @ 224 mls/hr Q1H PRN IVPB Agitation 05/23/19 10:45 06/22/19 10:44 05/25/19 05:39 Insulin Aspart (NovoLOG) Q6HR SUBQ 05/25/19 12:00 06/24/19 11:59 05/25/19 12:33 Lactulose (Cephulac) 10 gm THREE TIMES A DAY NG 05/20/19 13:00 06/17/19 10:29 05/25/19 12:29 Ondansetron HCl (Zofran) 4 mg Q6H PRN IVP Nausea & Vomiting 05/17/19 21:45 06/16/19 21:44 05/21/19 15:07 Pantoprazole (Protonix) 40 mg EVERY 12 HOURS IVP 05/18/19 21:00 06/17/19 20:59 05/25/19 08:09 Piperacillin Sod/ Tazobactam Sod 3.375 gm/Sodium Chloride 110 ml @ 27.5 mls/hr EVERY 8 HOURS IVPB 05/24/19 14:00 05/29/19 13:59 05/25/19 13:09 Rifaximin (Xifaxan) 550 mg EVERY 12 HOURS NG 05/18/19 21:00 06/01/19 23:00 05/25/19 08:10 Allergies: Coded Allergies: No Known Allergies (Unverified , 01/31/19) ROS Limited/Unobtainable: Yes Subjective 58 YO F admitted with respiratory failure and presumed septic shock. Now UTI. Cover for Int Med-Dr Amador. Intubated and sedated. ICU. Await paracentesis Objective Last Vital Signs Date Time Temp Pulse Resp B/P (MAP) Pulse Ox O2 Delivery O2 Flow Rate FiO2 05/25/19 13:00 95 18 111/70 (84) 100 05/25/19 12:44 30 05/25/19 12:00 98.7 05/25/19 12:00 Mechanical Ventilator Laboratory Tests Test 05/25/19 03:40 White Blood Count 14.1 K/UL (4.8-10.8) H Red Blood Count 2.49 M/UL (4.20-5.40) L Hemoglobin 7.3 G/DL (12.0-16.0) L Hematocrit 24.2 % (37.0-47.0) L Mean Corpuscular Volume 97 FL (80-99) Mean Corpuscular Hemoglobin 29.4 PG (27.0-31.0) Mean Corpuscular Hemoglobin Concent 30.3 G/DL (32.0-36.0) L Red Cell Distribution Width 27.9 % (11.6-14.8) H Platelet Count 70 K/UL (150-450) L Mean Platelet Volume 6.6 FL (6.5-10.1) Neutrophils (%) (Auto) % (45.0-75.0) Lymphocytes (%) (Auto) % (20.0-45.0) Monocytes (%) (Auto) % (1.0-10.0) Eosinophils (%) (Auto) % (0.0-3.0) Basophils (%) (Auto) % (0.0-2.0) Differential Total Cells Counted 100 Neutrophils % (Manual) 74 % (45-75) Lymphocytes % (Manual) 13 % (20-45) L Monocytes % (Manual) 9 % (1-10) Eosinophils % (Manual) 2 % (0-3) Basophils % (Manual) 0 % (0-2) Band Neutrophils 2 % (0-8) Nucleated Red Blood Cells 3 /100 WBC Platelet Estimate Decreased L Platelet Morphology Normal Hypochromasia 1+ Anisocytosis 2+ Microcytosis 1+ Sodium Level 138 MMOL/L (136-145) Potassium Level 4.7 MMOL/L (3.5-5.1) Chloride Level 109 MMOL/L (98-107) H Carbon Dioxide Level 20 MMOL/L (21-32) L Anion Gap 10 mmol/L (5-15) Blood Urea Nitrogen 42 mg/dL (7-18) H Creatinine 2.0 MG/DL (0.55-1.30) H Estimat Glomerular Filtration Rate 25.7 mL/min (>60) Glucose Level 202 MG/DL (74-106) H Calcium Level 8.1 MG/DL (8.5-10.1) L Phosphorus Level 3.6 MG/DL (2.5-4.9) Magnesium Level 2.0 MG/DL (1.8-2.4) Total Bilirubin 6.5 MG/DL (0.2-1.0) H Direct Bilirubin 5.4 MG/DL (0.0-0.3) H Aspartate Amino Transf (AST/SGOT) 38 U/L (15-37) H Alanine Aminotransferase (ALT/SGPT) 10 U/L (12-78) L Alkaline Phosphatase 228 U/L (46-116) H Pro-B-Type Natriuretic Peptide 780 pg/mL (0-125) H Total Protein 5.6 G/DL (6.4-8.2) L Albumin 1.1 G/DL (3.4-5.0) L Globulin 4.5 g/dL Albumin/Globulin Ratio 0.2 (1.0-2.7) L Microbiology Date/Time Source Procedure Growth Status 05/24/19 11:30 Sputum Expectorated Gram Stain - Final Resulted 05/24/19 11:30 Sputum Expectorated Sputum Culture Pending Resulted 05/24/19 15:00 Urine,Clean Catch Urine Culture - Preliminary NO GROWTH Resulted Intake and Output 05/24/19 05/25/19 19:00 07:00 Intake Total 740.0 ml 918 ml Output Total 115 ml 150 ml Balance 625.0 ml 768 ml Free Water 30 ml IV Total 110.0 ml 168 ml Tube Feeding 540 ml 720 ml Other 90 ml Output Urine Total 115 ml 150 ml # Bowel Movements 1 5 Objective PHYSICAL EXAMINATION: GENERAL: The patient is a well-developed and well-nourished obese female, who is intubated and sedated. HEENT: Eyes, pupils are equal and responsive to light and accommodation. Extraocular movements are intact. NECK: Supple without lymphadenopathy. CHEST: Mech vent; Coarse upper breath sounds, otherwise without wheezes or rales. CARDIOVASCULAR: Regular rhythm, rate. S1, S2 normal without murmurs, rubs, or gallops. ABDOMEN: Soft, distended with decreased bowel sounds. No evidence of hepatosplenomegaly. Currently, no rebound or guarding noted. EXTREMITIES: Negative for clubbing, cyanosis, or edema. RECTAL/GENITAL: Not performed. NEUROLOGICAL: Unable to assess. Assessment/Plan Assessment/Plan ASSESSMENT: This is a 58-year-old female. 1. Respiratory failure. 2. Urinary tract infection=klebsiella pneumoniae 3. Probable sepsis. 4. Probable septic shock. 5. Alcoholic cirrhosis of the liver. 6. Hypertension. 7. Diabetes type 2. 8. Ascites. 9. Hypercholesterolemia. TREATMENT: 1. Respiratory failure. A Pulmonary consultation has been obtained with Dr. Shireen Khan. The patient is currently intubated and sedated in the intensive care unit. We will follow recommendations of Pulmonary. 2. Urinary tract infection. An Infectious Disease consultation has been obtained with Dr. Hu. ABX=zosyn Urine culture=klebsiella 3. Probable sepsis-increased WBC. See ID note 4. Septic shock. 5. Alcoholic cirrhosis of liver. A Gastroenterology consultation has been obtained with Dr. Jon Torres. S/P paracentesis 05/19/19 6. Hypertension. The patient is currently hypotensive. Hold all antihypertensive medications. 7. Diabetes type 2. A NovoLog sliding scale has been instituted. 8. Ascites, as above. A Gastroenterology consultation has been obtained with Dr. Jon Torres. S/P paracentesis 05/19/19; repeat scheduled 05/25/19 9. Hypercholesterolemia. Jose Benjamin MD May 25, 2019 13:19
--- NOTE | 2019-05-25 14:34 | NUR ---
NURSE NOTES:Paracentesis procedure complete w/ 4.1 L output. Pt is awake in bed, BP 114/62. VS noted and documented. Pt repositioned. No c/o pain.
--- NOTE | 2019-05-25 14:41 | Pre-Procedure Note/Attestation ---
Pre-Procedure Note/Attestation Complete Prior to Procedure Planned Procedure: not applicable Procedure Narrative: paracentesis Indications for Procedure Pre-Operative Diagnosis: ascites Attestation I attest that I discussed the nature of the procedure; its benefits; risks and complications; and alternatives (and the risks and benefits of such alternatives ), prior to the procedure, with the patient (or the patient's legal aircraft sales representative). I attest that, if there was a reasonable possibility of needing a blood transfusion, the patient (or the patient's legal aircraft sales representative) was given the [facility] standardized written summary, pursuant to the Elijah Damian Blood Safety Act ([place] Health and Safety Code # 1645, as amended). I attest that I re-evaluated the patient just prior to the surgery and that there has been no change in the patient's H&P, except as documented below: Donnie Rosado MD May 25, 2019 14:41
--- NOTE | 2019-05-25 14:41 | Brief Operative Note ---
Immediate Post Operative Note Operative Note Pre-op Diagnosis: ascites Procedure: paracentesis Post-op Diagnosis: same as pre-op Surgeon: Milan Rosa Anesthesia: local Specimen: yes - 50 ml fluid sent to lab Complications: none Fluids: none Implant(s) used?: No Donnie Rosa MD May 25, 2019 14:41
--- NOTE | 2019-05-25 15:15 | NUR ---
NURSE NOTES: Pt extubated by RT Elijah. Pt is in stable condition post-extubation. RR 28 SpO2 100% on 2L O2 via NC. Oral care performed and pt suctioned. Will continue to monitor.
--- NOTE | 2019-05-25 15:15 | NUR ---
RESPIRATORY NOTE: Pt extubated per MD order. No stridor, no resp distress noted. Suctioned pt prn. Pt placed on 4lpm O2 N/C. Will monitor pt progress.
--- NOTE | 2019-05-25 16:30 | Diagnostic Imaging Report ---
Indications: Ascites Technique: Informed consent obtained prior to commencement of the procedure. Procedure timeout performed. Ultrasound used to localize optimal puncture site. Sterile prepping and draping right upper quadrant. Local anesthesia with 1% lidocaine. Under real-time ultrasound guidance, puncture peritoneal space using paracentesis needle. Stylet removed. Catheter placed to vacuum bottle suction. Total 4.1 liters of fluid aspirated. Patient tolerated procedure well, without immediate complication. Findings: Followup sonography demonstrates complete resolution of peritoneal fluid. Impression: Successful ultrasound-guided paracentesis, yielding 4.1 liters of fluid
--- NOTE | 2019-05-25 16:38 | Infectious Diseases Prog Note ---
Assessment/Plan Assessment/Plan Assessment/Plan 58 yo female with PMHx of Liver cirrhosis with recurrent ascites, HTN, ETOH abuse, DM and Hepatic encephalopathy who presented to the ED on 05/17/19 with AMS. Sepsis UA (+) CXR no sign of PNA Urine Cx 05/17/19 - K. pneumo Ro Probable VAP Ascites ro probable SBP \ 05/25 Sp US guided paracentesis, yielding 4.1 liters of fluid 05/19 sp paracentesis ( no Cx or Cell count sent) AMS Hepatic encephalopathy ? vs Urosepsis Leukocytosis increased No fever Hx Gram negative bacteremia -05/03 BCx / ACHROMOBACTER XYLOSOXIDANS (S Zosyn, Ceftazidime, bactrim; R cefepime; I imipenem, Levaquin); 05/05 Bcx NTD Recurrent ascites -05/05 SP paracentesis: 3.5 L removed wbc 170 (N 49%); cx Neg - -03/11/19 sp paracentesis:fluid wbc 97 (N 34%) 05/25 Sp Extubation HTN DM Liver Cirrhosis EtOH abuse Plan: Start Zosyn # 2 -05/24 Sp Cefazolin # 3 - 05/22/19 SP Cefepime #5 Flagyl #5 and Vancomycin #5 - Perit F cell count and Cx -Monitor CBC/CMP Subjective Allergies: Coded Allergies: No Known Allergies (Unverified , 01/31/19) Subjective extubated in ICU Objective Vital Signs Last 24 Hour Vital Signs Date Time Temp Pulse Resp B/P (MAP) Pulse Ox O2 Delivery O2 Flow Rate FiO2 05/25/19 16:00 96 05/25/19 16:00 Nasal Cannula 2.0 Nasal Cannula 2.0 05/25/19 16:00 96 26 111/59 (76) 100 05/25/19 15:15 2.0 05/25/19 15:15 Nasal Cannula 4.0 36 05/25/19 15:00 97 16 110/66 (81) 100 05/25/19 14:00 99 14 114/62 (79) 100 05/25/19 13:00 95 18 111/70 (84) 100 05/25/19 12:44 99 18 30 05/25/19 12:00 102 05/25/19 12:00 98.7 100 19 125/69 (87) 100 05/25/19 12:00 Mechanical Ventilator 05/25/19 12:00 30 05/25/19 11:00 101 20 118/68 (85) 100 05/25/19 10:35 95 19 30 05/25/19 10:00 97 18 108/64 (79) 100 05/25/19 09:00 99 26 109/63 (78) 100 05/25/19 08:33 99 05/25/19 08:33 97 19 30 05/25/19 08:00 30 05/25/19 08:00 98.6 94 18 103/61 (75) 100 05/25/19 08:00 Mechanical Ventilator 05/25/19 08:00 96 05/25/19 07:00 96 20 112/67 (82) 99 05/25/19 07:00 100 33 30 05/25/19 06:00 97 20 113/63 (80) 99 05/25/19 05:00 100 23 115/68 (84) 100 05/25/19 04:58 101 23 30 05/25/19 04:00 97 05/25/19 04:00 99 19 106/65 (79) 99 05/25/19 04:00 Mechanical Ventilator 05/25/19 04:00 98.2 99 19 106/65 (79) 99 05/25/19 04:00 30 05/25/19 03:00 94 18 99/62 (74) 100 05/25/19 02:59 95 18 30 05/25/19 02:00 98 20 105/67 (80) 100 05/25/19 02:00 98 20 105/67 (80) 100 05/25/19 01:00 98 14 107/67 (80) 100 05/25/19 01:00 98.0 98 19 107/67 (80) 100 05/25/19 01:00 98 14 107/67 (80) 100 05/25/19 00:50 98 28 30 05/25/19 00:00 30 05/25/19 00:00 98.0 98 19 108/76 (87) 100 05/25/19 00:00 97 23 108/76 (87) 100 05/25/19 00:00 98 05/25/19 00:00 97 23 108/76 (87) 100 05/25/19 00:00 Mechanical Ventilator 05/24/19 23:05 100 21 30 05/24/19 23:00 95 23 118/69 (85) 99 05/24/19 22:00 98 23 117/69 (85) 99 05/24/19 21:00 99 22 118/68 (85) 100 05/24/19 20:52 100 26 30 05/24/19 20:00 30 05/24/19 20:00 Mechanical Ventilator 05/24/19 20:00 98.2 99 21 117/72 (87) 100 05/24/19 20:00 99 05/24/19 19:19 97 23 30 05/24/19 18:00 95 05/24/19 18:00 97 19 124/68 (86) 99 05/24/19 17:00 97 19 120/69 (86) 100 Height (Feet): 5 Height (Inches): 0.00 Weight (Pounds): 192 HEENT: mucous membranes moist Respiratory/Chest: normal breath sounds Cardiovascular: regular rhythm Abdomen: soft, non tender Microbiology Date/Time Source Procedure Growth Status 05/24/19 11:30 Sputum Expectorated Gram Stain - Final Resulted 05/24/19 11:30 Sputum Expectorated Sputum Culture Pending Resulted 05/24/19 15:00 Urine,Clean Catch Urine Culture - Preliminary NO GROWTH Resulted Laboratory Tests Test 05/25/19 03:40 05/25/19 13:45 White Blood Count 14.1 K/UL (4.8-10.8) H Red Blood Count 2.49 M/UL (4.20-5.40) L Hemoglobin 7.3 G/DL (12.0-16.0) L Hematocrit 24.2 % (37.0-47.0) L Mean Corpuscular Volume 97 FL (80-99) Mean Corpuscular Hemoglobin 29.4 PG (27.0-31.0) Mean Corpuscular Hemoglobin Concent 30.3 G/DL (32.0-36.0) L Red Cell Distribution Width 27.9 % (11.6-14.8) H Platelet Count 70 K/UL (150-450) L Mean Platelet Volume 6.6 FL (6.5-10.1) Neutrophils (%) (Auto) % (45.0-75.0) Lymphocytes (%) (Auto) % (20.0-45.0) Monocytes (%) (Auto) % (1.0-10.0) Eosinophils (%) (Auto) % (0.0-3.0) Basophils (%) (Auto) % (0.0-2.0) Differential Total Cells Counted 100 Neutrophils % (Manual) 74 % (45-75) Lymphocytes % (Manual) 13 % (20-45) L Monocytes % (Manual) 9 % (1-10) Eosinophils % (Manual) 2 % (0-3) Basophils % (Manual) 0 % (0-2) Band Neutrophils 2 % (0-8) Nucleated Red Blood Cells 3 /100 WBC Platelet Estimate Decreased L Platelet Morphology Normal Hypochromasia 1+ Anisocytosis 2+ Microcytosis 1+ Sodium Level 138 MMOL/L (136-145) Potassium Level 4.7 MMOL/L (3.5-5.1) Chloride Level 109 MMOL/L (98-107) H Carbon Dioxide Level 20 MMOL/L (21-32) L Anion Gap 10 mmol/L (5-15) Blood Urea Nitrogen 42 mg/dL (7-18) H Creatinine 2.0 MG/DL (0.55-1.30) H Estimat Glomerular Filtration Rate 25.7 mL/min (>60) Glucose Level 202 MG/DL (74-106) H Calcium Level 8.1 MG/DL (8.5-10.1) L Phosphorus Level 3.6 MG/DL (2.5-4.9) Magnesium Level 2.0 MG/DL (1.8-2.4) Total Bilirubin 6.5 MG/DL (0.2-1.0) H Direct Bilirubin 5.4 MG/DL (0.0-0.3) H Aspartate Amino Transf (AST/SGOT) 38 U/L (15-37) H Alanine Aminotransferase (ALT/SGPT) 10 U/L (12-78) L Alkaline Phosphatase 228 U/L (46-116) H Pro-B-Type Natriuretic Peptide 780 pg/mL (0-125) H Total Protein 5.6 G/DL (6.4-8.2) L Albumin 1.1 G/DL (3.4-5.0) L Globulin 4.5 g/dL Albumin/Globulin Ratio 0.2 (1.0-2.7) L Body Fluid Source Paracentesis Body Fluid Volume 24 mL Body Fluid Appearance Hazy (Clear) Body Fluid RBC 323 /CUMM Body Fluid Total Nucleated Cells 65 /CUMM Body Fluid Polynuclear WBCs (%) 19 % Body Fluid Mononuclear WBCs (%) 79 % Body Fluid Mesothelial Cells (%) 2 % Current Medications Medications (Trade) Dose Ordered Sig/Almaz Route PRN Reason Start Time Stop Time Status Last Admin Dose Admin Chlorhexidine Gluconate (Shannon-Hex 2%) 1 applic DAILY@2000 TOPIC 05/18/19 20:00 06/17/19 19:59 05/24/19 20:09 Dextrose (Dextrose 50%) 25 ml Q30M PRN IV Hypoglycemia 05/17/19 21:45 06/16/19 21:44 Dextrose (Dextrose 50%) 50 ml Q30M PRN IV Hypoglycemia 05/17/19 21:45 06/16/19 21:44 Haloperidol Lactate 5 mg/ Dextrose 56 ml @ 224 mls/hr Q1H PRN IVPB Agitation 05/23/19 10:45 06/22/19 10:44 05/25/19 05:39 Insulin Aspart (NovoLOG) Q6HR SUBQ 05/25/19 12:00 06/24/19 11:59 05/25/19 12:33 Lactulose (Cephulac) 10 gm THREE TIMES A DAY NG 05/20/19 13:00 06/17/19 10:29 05/25/19 12:29 Ondansetron HCl (Zofran) 4 mg Q6H PRN IVP Nausea & Vomiting 05/17/19 21:45 06/16/19 21:44 05/21/19 15:07 Pantoprazole (Protonix) 40 mg EVERY 12 HOURS IVP 05/18/19 21:00 06/17/19 20:59 05/25/19 08:09 Piperacillin Sod/ Tazobactam Sod 3.375 gm/Sodium Chloride 110 ml @ 27.5 mls/hr EVERY 8 HOURS IVPB 05/24/19 14:00 05/29/19 13:59 05/25/19 13:09 Rifaximin (Xifaxan) 550 mg EVERY 12 HOURS NG 05/18/19 21:00 06/01/19 23:00 05/25/19 08:10 Krzysztof Hu MD May 25, 2019 16:38
--- NOTE | 2019-05-25 17:07 | NUR ---
NURSE NOTES: Pt repositioned, cleaned, and 1 BM noted. VS and I&Os noted and documented. Pt is in no distress. Currently asleep in bed. Dr. Hu came in to see pt. Will continue to monitor.
--- NOTE | 2019-05-25 17:40 | Diagnostic Imaging Report ---
Indication: Dyspnea Technique: One view of the chest Comparison: 05/24/2019 Findings: Endotracheal tube projects just above the marianne. Left arm PICC remains. Bilateral infrahilar patchy opacities appear slightly increased from the prior exam, probably due to lower lung volumes but developing patchy infiltrates also possible. Left perihilar atelectasis versus scarring is unchanged Impression: Possibly new or increased bilateral infrahilar opacities, could represent small patchy infiltrates. Correlate with clinical findings Other stable findings as described
--- NOTE | 2019-05-25 18:18 | NUR ---
NURSE NOTES: Another BM noted. Pt cleaned and repositioned. bed linens changed. Bed in lowest position, alarm on, side rails up x3, call light within reach. Pt in no distress. VS and I&Os noted and charted.
--- NOTE | 2019-05-25 19:17 | NUR ---
HAND-OFF: Report given to Hang Lua RN. Pt in stable condition.
--- NOTE | 2019-05-25 19:20 | NUR ---
NURSE NOTES: Pt report received from Raven LARSEN ICU DMIT[facility]. pt remains stable, vital signs stable. pt appears alert and oriented times 1. pt is on 2 L NC, satting at 99% with resp of 30, no other resp distress noted. pt is on inspector coated fabrics showing NSR, no distress noted. pt bed is low, locked armed, bed rails up times 3, call light within reach. will continue plan of care. family member at bed side.
[2019-05-25] MEDS: Dyna-Hex 2% Top Sol 2oz TOPIC SCH (20:18)
--- NOTE | 2019-05-25 21:00 | NUR ---
NURSE NOTES: Pt has been cleaned, bowl movement noted. Dressings applied per MD order.
--- NOTE | 2019-05-25 22:08 | Surgery Progress Note ---
Surgery Progress Note Subjective Procedure Performed sepsis Additional Comments await bioethics labs noted poor prognosis Objective Last 24 Hour Vital Signs Date Time Temp Pulse Resp B/P (MAP) Pulse Ox O2 Delivery O2 Flow Rate FiO2 05/25/19 19:00 96 25 120/62 (81) 100 05/25/19 18:00 95 32 109/62 (78) 97 05/25/19 17:00 98.8 94 28 110/60 (77) 100 05/25/19 16:00 96 05/25/19 16:00 Nasal Cannula 2.0 Nasal Cannula 2.0 05/25/19 16:00 96 26 111/59 (76) 100 05/25/19 15:15 2.0 05/25/19 15:15 Nasal Cannula 4.0 36 05/25/19 15:00 97 16 110/66 (81) 100 05/25/19 14:00 99 14 114/62 (79) 100 05/25/19 13:00 95 18 111/70 (84) 100 05/25/19 12:44 99 18 30 05/25/19 12:00 102 05/25/19 12:00 98.7 100 19 125/69 (87) 100 05/25/19 12:00 Mechanical Ventilator 05/25/19 12:00 30 05/25/19 11:00 101 20 118/68 (85) 100 05/25/19 10:35 95 19 30 05/25/19 10:00 97 18 108/64 (79) 100 05/25/19 09:00 99 26 109/63 (78) 100 05/25/19 08:33 99 05/25/19 08:33 97 19 30 05/25/19 08:00 30 05/25/19 08:00 98.6 94 18 103/61 (75) 100 05/25/19 08:00 Mechanical Ventilator 05/25/19 08:00 96 05/25/19 07:00 96 20 112/67 (82) 99 05/25/19 07:00 100 33 30 05/25/19 06:00 97 20 113/63 (80) 99 05/25/19 05:00 100 23 115/68 (84) 100 05/25/19 04:58 101 23 30 05/25/19 04:00 97 05/25/19 04:00 99 19 106/65 (79) 99 05/25/19 04:00 Mechanical Ventilator 05/25/19 04:00 98.2 99 19 106/65 (79) 99 05/25/19 04:00 30 05/25/19 03:00 94 18 99/62 (74) 100 05/25/19 02:59 95 18 30 05/25/19 02:00 98 20 105/67 (80) 100 05/25/19 02:00 98 20 105/67 (80) 100 05/25/19 01:00 98 14 107/67 (80) 100 05/25/19 01:00 98.0 98 19 107/67 (80) 100 05/25/19 01:00 98 14 107/67 (80) 100 05/25/19 00:50 98 28 30 05/25/19 00:00 30 05/25/19 00:00 98.0 98 19 108/76 (87) 100 05/25/19 00:00 97 23 108/76 (87) 100 05/25/19 00:00 98 05/25/19 00:00 97 23 108/76 (87) 100 05/25/19 00:00 Mechanical Ventilator 05/24/19 23:05 100 21 30 05/24/19 23:00 95 23 118/69 (85) 99 I&O Intake and Output 05/24/19 05/25/19 19:00 07:00 Intake Total 740.0 ml 918 ml Output Total 115 ml 150 ml Balance 625.0 ml 768 ml Free Water 30 ml IV Total 110.0 ml 168 ml Tube Feeding 540 ml 720 ml Other 90 ml Output Urine Total 115 ml 150 ml # Bowel Movements 1 5 Dressing: saturated Wound: other Drains: other Cardiovascular: RSR Respiratory: decreased breath sounds Abdomen: soft, other, decreased bowel sounds Extremities: no cyanosis Laboratory Tests Test 05/25/19 03:40 05/25/19 13:45 White Blood Count 14.1 K/UL (4.8-10.8) H Red Blood Count 2.49 M/UL (4.20-5.40) L Hemoglobin 7.3 G/DL (12.0-16.0) L Hematocrit 24.2 % (37.0-47.0) L Mean Corpuscular Volume 97 FL (80-99) Mean Corpuscular Hemoglobin 29.4 PG (27.0-31.0) Mean Corpuscular Hemoglobin Concent 30.3 G/DL (32.0-36.0) L Red Cell Distribution Width 27.9 % (11.6-14.8) H Platelet Count 70 K/UL (150-450) L Mean Platelet Volume 6.6 FL (6.5-10.1) Neutrophils (%) (Auto) % (45.0-75.0) Lymphocytes (%) (Auto) % (20.0-45.0) Monocytes (%) (Auto) % (1.0-10.0) Eosinophils (%) (Auto) % (0.0-3.0) Basophils (%) (Auto) % (0.0-2.0) Differential Total Cells Counted 100 Neutrophils % (Manual) 74 % (45-75) Lymphocytes % (Manual) 13 % (20-45) L Monocytes % (Manual) 9 % (1-10) Eosinophils % (Manual) 2 % (0-3) Basophils % (Manual) 0 % (0-2) Band Neutrophils 2 % (0-8) Nucleated Red Blood Cells 3 /100 WBC Platelet Estimate Decreased L Platelet Morphology Normal Hypochromasia 1+ Anisocytosis 2+ Microcytosis 1+ Sodium Level 138 MMOL/L (136-145) Potassium Level 4.7 MMOL/L (3.5-5.1) Chloride Level 109 MMOL/L (98-107) H Carbon Dioxide Level 20 MMOL/L (21-32) L Anion Gap 10 mmol/L (5-15) Blood Urea Nitrogen 42 mg/dL (7-18) H Creatinine 2.0 MG/DL (0.55-1.30) H Estimat Glomerular Filtration Rate 25.7 mL/min (>60) Glucose Level 202 MG/DL (74-106) H Calcium Level 8.1 MG/DL (8.5-10.1) L Phosphorus Level 3.6 MG/DL (2.5-4.9) Magnesium Level 2.0 MG/DL (1.8-2.4) Total Bilirubin 6.5 MG/DL (0.2-1.0) H Direct Bilirubin 5.4 MG/DL (0.0-0.3) H Aspartate Amino Transf (AST/SGOT) 38 U/L (15-37) H Alanine Aminotransferase (ALT/SGPT) 10 U/L (12-78) L Alkaline Phosphatase 228 U/L (46-116) H Pro-B-Type Natriuretic Peptide 780 pg/mL (0-125) H Total Protein 5.6 G/DL (6.4-8.2) L Albumin 1.1 G/DL (3.4-5.0) L Globulin 4.5 g/dL Albumin/Globulin Ratio 0.2 (1.0-2.7) L Body Fluid Source Paracentesis Body Fluid Volume 24 mL Body Fluid Appearance Hazy (Clear) Body Fluid RBC 323 /CUMM Body Fluid Total Nucleated Cells 65 /CUMM Body Fluid Polynuclear WBCs (%) 19 % Body Fluid Mononuclear WBCs (%) 79 % Body Fluid Mesothelial Cells (%) 2 % Plan Problems: (1) Sacral decubitus ulcer Assessment & Plan: Pt presented on admission with icteric sclerae and skin. Moisture intertrigo Madhu/left abd folds.(1.5cm long). Moisture intertrigo R groin(8.5cm) slit noted with small amt bleeding. Mons pubis,labia majora and medial aspects of both upper thigh erythematous . Partial thickness wound noted to L thoracic. Base of wound is moist and viable. Edges flat and adherent to base of wound.No exudate noted. (L) 0.6cm x (W)0.8cm. Non-blanchable erythema sacrum,R and L buttocks with scattered shearing .Full thickness pressure injury noted to sacrococcygeal area. Base of wound is steve with small amt slough noted in center.(L) 0.7cm x (W)0.3cm. Area around wound is erythematous non-blanchable with shearing . Full thickness pressure injury R buttocks . Base of wound is moist, with Slough in center.Surrounding area erythematous and denuded. Evolving serous blister L heel.Base of wound is fluctuant with delineated,red margins.(L)3.5cm x (W)5.5cm. Periwound without erythema or fluctuance. R heel firm and blanchable. Tx.Plan: Apply Triad Paste to Sacrum and R buttocks. Cover wounds with Optifoam drsg. Change every 3 days and PRN. Apply Triad Paste to abd folds, R groin,Mons pubis, medial aspects of both upper thighs with each perineal care. Apply Optifoam drsg L thoracic wound. Cover with Optifoam drsg. Change every 3 days and prn. Apply Cavilon Skin Barrier to both heels. Cover each heel with Optifoam drsg. Change every 7 days and prn. APM/CHRISSY Mattress. Reposition at least every 2hours or as tolerated. Off-load heels with pillow (2) Liver cirrhosis Assessment & Plan: DAILY ESTIMATED NEEDS: Needs based on Cirrhosis, Critical care, sepsis/ 58kg adj 22-30 kcals/kg [id number] total kcals 1.2-2 g protein/kg 70-116 g total protein 20-25 mL/kg [id number] total fluid mLs NUTRITION DIAGNOSIS: * Swallowing difficulty R/T respiratory status as evidenced by pt orally intubated, NPO at this time * Altered nutrition related lab values R/T cirrhosis, sepsis, clinical condition as evidenced by elev T bili (5.5), elev NH3 (152), elev LA (6.7), elev creat (2.4). CURRENT TF:NPO PO DIET RECOMMENDATIONS: F[employer] eval post extubation -> LOW NA ENTERAL NUTRITION RECOMMENDATIONS: Glucerna 1.2 @ 55ml/hr x 24 hrs to provide 1320ml, 1584kcal, 79g prot, 1063ml free water * Rec Glucerna 1.2 to maintain good BG control: h/o DM * As medically appropriate, initiate Glucerna 1.2 @ 25ml/hr x 6 hrs * Advance 10ml q 4-6 hrs as tolerated to goal rate. * HOB over 30 degrees/ water flush per MD. ADDITIONAL RECOMMENDATIONS: * Calibrated bedscale wt for accurate CBW * W/ TF, monitor need for NISS: h/o DM * F/up w/ wound eval: add Miquel 1pkt BID + VIt C 250mg QD * Monitor lytes, replete as needed . (3) Acute on chronic alcoholic liver disease (4) Sepsis Assessment & Plan: Restore insufficiency, leukocytosis, anemia, lactic acidosis , liver insufficiency, sepsis Right line removed and pressure held until hemostasis obtained. Currently no significant hematoma or post injury comp occasion identified. Site clean dry. Left line in place and stable. Will recommend PICC line so femoral line can be removed and more definitive long -term access can be obtained given patient's current medical condition and likelihood for prolonged hospitalization stay US noted and okay paracentesis PICC Continue IV antibiotics We will monitor and follow with recommendations Ultrasound ordered Efrain Whitaker May 25, 2019 22:08
--- NOTE | 2019-05-25 23:00 | NUR ---
NURSE NOTES: Pt vital signs are stable. pt repositioned. IV tubing has been replaced.
[2019-05-26] VITALS (12 sets, daily range): BP systolic 108–125; BP diastolic 59–97
--- NOTE | 2019-05-26 01:00 | NUR ---
NURSE NOTES: Pt repositioned. vital signs stable. skin and and IV lines re assessed.
--- NOTE | 2019-05-26 03:00 | NUR ---
NURSE NOTES: Pt repositioned. pt has been cleaned. dressings replaced as per MD order.
--- NOTE | 2019-05-26 05:00 | NUR ---
NURSE NOTES: Pt has been repositioned. vital signs are stable. pending lab results.
[2019-05-26 05:13] LABS: HEMATOCRIT 25.6 % (37.0-47.0); HEMOGLOBIN 7.8 G/DL (12.0-16.0); MEAN CORPUSCULAR VOLUME 98 FL (80-99); PLATELET COUNT 79 K/UL (150-450); RED BLOOD COUNT 2.61 M/UL (4.20-5.40); RED CELL DISTRIBUTION WIDTH 28.2 % (11.6-14.8); WHITE BLOOD COUNT 15.2 K/UL (4.8-10.8)
[2019-05-26 05:43] LABS: ALANINE AMINOTRANSFERASE 7 U/L (12-78); ALBUMIN 1.1 G/DL (3.4-5.0); ALBUMIN/GLOBULIN RATIO 0.2 (1.0-2.7); ALKALINE PHOSPHATASE 240 U/L (46-116); ANION GAP 12 mmol/L (5-15); ASPARTATE AMINO TRANSFERASE 42 U/L (15-37); BILIRUBIN,TOTAL 6.5 MG/DL (0.2-1.0); BLOOD UREA NITROGEN 47 mg/dL (7-18); CALCIUM 8.3 MG/DL (8.5-10.1); CARBON DIOXIDE 18 MMOL/L (21-32); CHLORIDE 111 MMOL/L (98-107); CREATININE 2.1 MG/DL (0.55-1.30); SODIUM 141 MMOL/L (136-145)
[2019-05-26 05:45] LABS: BILIRUBIN,DIRECT 5.5 MG/DL (0.0-0.3)
[2019-05-26] MEDS: Piperacillin/Tazobactam 3.375 GM in NS 110 ML IVPB SCH ×3 (05:47→22:10)
[2019-05-26] MEDS: NovoLOG Insulin Flexpen SUBQ SCH ×3 (05:51→18:00)
[2019-05-26] MEDS ORDERED: Haloperidol Lactate 5 MG in D5W 55 ML IVPB PRN (06:45)
--- NOTE | 2019-05-26 06:45 | NUR ---
HAND-OFF: Report/ transfer given to Tiffanie LARSENit security manager. Pt remains stable. pt transfered with all belongings.
--- NOTE | 2019-05-26 06:58 | NUR ---
NURSE NOTES: Received patient from ICU/transfer, Non verbal, A/O x1, spontaneous eye opening, fragile skin, on oxygen at 2 liters per minute, oral tube feeding Glucerna 1.2 at 60 per hour. Draper is in place, draining well, PICC line is clean dry and intact. Bed is in low position, lowered and locked, call light is within reach. Will continue to monitor for comfort and safety.
--- NOTE | 2019-05-26 07:26 | NUR ---
HAND-OFF: Report given to Deborah LARSEN.
--- NOTE | 2019-05-26 07:44 | NUR ---
NURSE NOTES: received report from CHAVA Moreno. patient in bed. alert. limited verbal response. no respiratory distress noted with 2l o2 via NC. no facial grimacing noted. contact isolation. PPE at all times. F/C draining. dark yellow. no sediment. RICK picc line 2lumens. dressing intact. bed in the lowest position and locked. tube feeding by mouth running glucerna 1.2 @60. HOB at all times. call light within reach. will continue to provide plan of care.
[2019-05-26] MEDS ORDERED: Pantoprazole Inj IVP SCH (09:00)
[2019-05-26] MEDS: Lactulose 20gm/30ml UDC NG SCH ×3 (09:15→18:00)
[2019-05-26] MEDS ORDERED: NS 275ml ONE (10:39)
--- NOTE | 2019-05-26 11:23 | NUR ---
NURSE NOTES: patient has fungal infection on both groins area. both under breast. notified Dr. Khan and received order of Lotrisone cream topical BID. order noted and carried out.
--- NOTE | 2019-05-26 11:36 | Pulmonology Progress Note ---
Assessment/Plan Problems: (1) Acute respiratory failure (2) Acute metabolic encephalopathy (3) Acute on chronic alcoholic liver disease (4) Anasarca (5) Anemia Assessment/Plan tolerated extubation more awake, looks very yellow symptomatic treatment bilirubin is 6 I talked yesterday to Pts son in [place], who said that he only makes decisions about his mother. Today I got a call from somebody named Matteo who claims to be the other son. I tried twice the number but each time it went to voicemail. I did leave a voice message. Subjective ROS Limited/Unobtainable: No Respiratory: Reports: no symptoms Allergies: Coded Allergies: No Known Allergies (Unverified , 01/31/19) Objective Last 24 Hour Vital Signs Date Time Temp Pulse Resp B/P (MAP) Pulse Ox O2 Delivery O2 Flow Rate FiO2 05/26/19 08:00 98.2 95 21 125/77 (93) 96 95 05/26/19 08:00 Nasal Cannula 2.0 Nasal Cannula 2.0 05/26/19 08:00 98.2 95 21 125/97 (106) 97 05/26/19 07:00 98.7 99 20 123/76 (92) 99 05/26/19 06:30 92 28 100 Nasal Cannula 2.0 28 05/26/19 06:00 95 34 123/76 (92) 99 05/26/19 05:00 94 30 114/72 (86) 97 05/26/19 04:00 30 05/26/19 04:00 Nasal Cannula 2.0 Nasal Cannula 2.0 05/26/19 04:00 97 05/26/19 04:00 98.0 96 29 119/74 (89) 96 05/26/19 03:00 97 31 113/67 (82) 99 05/26/19 02:00 97 31 114/68 (83) 99 05/26/19 01:00 96 33 108/62 (77) 98 05/26/19 00:00 98.8 95 31 119/65 (83) 98 05/26/19 00:00 97 05/26/19 00:00 30 05/26/19 00:00 Nasal Cannula 2.0 Nasal Cannula 2.0 05/25/19 23:00 97 30 115/65 (82) 99 05/25/19 22:00 98 28 109/65 (80) 99 05/25/19 21:00 96 31 120/59 (79) 100 05/25/19 20:00 98.5 95 29 111/59 (76) 100 05/25/19 20:00 97 05/25/19 20:00 Nasal Cannula 2.0 Nasal Cannula 2.0 05/25/19 20:00 30 05/25/19 19:00 96 25 120/62 (81) 100 05/25/19 18:00 95 32 109/62 (78) 97 05/25/19 17:00 98.8 94 28 110/60 (77) 100 05/25/19 16:00 96 05/25/19 16:00 Nasal Cannula 2.0 Nasal Cannula 2.0 05/25/19 16:00 96 26 111/59 (76) 100 05/25/19 15:15 2.0 05/25/19 15:15 Nasal Cannula 4.0 36 05/25/19 15:00 97 16 110/66 (81) 100 05/25/19 14:00 99 14 114/62 (79) 100 05/25/19 13:00 95 18 111/70 (84) 100 05/25/19 12:44 99 18 30 05/25/19 12:00 102 05/25/19 12:00 98.7 100 19 125/69 (87) 100 05/25/19 12:00 Mechanical Ventilator 05/25/19 12:00 30 Intake and Output 05/25/19 05/26/19 19:00 07:00 Intake Total 910.0 ml 830.0 ml Output Total 206 ml 130 ml Balance 704.0 ml 700.0 ml Free Water 80 ml 60 ml IV Total 110.0 ml 110.0 ml Tube Feeding 720 ml 660 ml Output Urine Total 206 ml 130 ml # Bowel Movements 5 5 General Appearance: WD/WN HEENT: normocephalic, atraumatic Respiratory/Chest: chest wall non-tender, lungs clear Breasts: no masses Cardiovascular: normal peripheral pulses, normal rate, regular rhythm Abdomen: normal bowel sounds, soft, non tender Genitourinary: normal external genitalia Extremities: no cyanosis Skin: no rash Microbiology Date/Time Source Procedure Growth Status 05/24/19 11:40 Blood Blood Culture - Preliminary NO GROWTH AFTER 24 HOURS Resulted 05/24/19 11:30 Blood Blood Culture - Preliminary NO GROWTH AFTER 24 HOURS Resulted 05/24/19 11:30 Sputum Expectorated Gram Stain - Final Resulted 05/24/19 11:30 Sputum Culture - Preliminary Yeast Species Resulted 05/24/19 15:00 Urine,Clean Catch Urine Culture - Preliminary Strep Species, Gamma-Hemolytic Resulted 05/25/19 13:45 Abdominal Fluid Gram Stain Pending Resulted 05/25/19 13:45 Abdominal Fluid Body Fluid Culture - Preliminary NO GROWTH Resulted Laboratory Tests 05/25/19 13:45: Body Fluid Source Paracentesis, Body Fluid Volume 24, Body Fluid Appearance Hazy , Body Fluid RBC 323, Body Fluid Total Nucleated Cells 65, Body Fluid Polynuclear WBCs (%) 19, Body Fluid Mononuclear WBCs (%) 79, Body Fluid Mesothelial Cells (%) 2 05/26/19 04:00: White Blood Count 15.2H, Red Blood Count 2.61L, Hemoglobin 7.8L, Hematocrit 25.6L, Mean Corpuscular Volume 98, Mean Corpuscular Hemoglobin 29.7, Mean Corpuscular Hemoglobin Concent 30.2L, Red Cell Distribution Width 28.2H, Platelet Count 79L, Mean Platelet Volume 6.1L, Neutrophils (%) (Auto) , Lymphocytes (%) (Auto) , Monocytes (%) (Auto) , Eosinophils (%) (Auto) , Basophils (%) (Auto) , Differential Total Cells Counted 100, Neutrophils % ( Manual) 85H, Lymphocytes % (Manual) 10L, Monocytes % (Manual) 4, Eosinophils % ( Manual) 0, Basophils % (Manual) 0, Band Neutrophils 1, Platelet Estimate DecreasedL, Platelet Morphology Normal, Polychromasia 1+, Hypochromasia 1+, Anisocytosis 3+, Sodium Level 141, Potassium Level 5.0, Chloride Level 111H, Carbon Dioxide Level 18L, Anion Gap 12, Blood Urea Nitrogen 47H, Creatinine 2.1H , Estimat Glomerular Filtration Rate 24.3, Glucose Level 161H, Calcium Level 8.3L, Total Bilirubin 6.5H, Direct Bilirubin 5.5H, Aspartate Amino Transf (AST/ SGOT) 42H, Alanine Aminotransferase (ALT/SGPT) 7L, Alkaline Phosphatase 240H, Total Protein 5.9L, Albumin 1.1L, Globulin 4.8, Albumin/Globulin Ratio 0.2L Current Medications Medications (Trade) Dose Ordered Sig/Almaz Route PRN Reason Start Time Stop Time Status Last Admin Dose Admin Betamethasone/ Clotrimazole (Lotrisone) 1 applic TWICE A DAY TOPIC 05/26/19 18:00 06/25/19 17:59 UNV Chlorhexidine Gluconate (Shannon-Hex 2%) 1 applic DAILY@1999 TOPIC 05/26/19 20:00 06/17/19 19:59 Dextrose (Dextrose 50%) 25 ml Q30M PRN IV Hypoglycemia 05/26/19 06:45 06/16/19 21:44 Dextrose (Dextrose 50%) 50 ml Q30M PRN IV Hypoglycemia 05/26/19 06:45 06/16/19 21:44 Insulin Aspart (NovoLOG) Q6HR SUBQ 05/26/19 12:00 06/24/19 11:59 Lactulose (Cephulac) 10 gm THREE TIMES A DAY NG 05/26/19 09:00 06/17/19 10:29 05/26/19 09:15 Ondansetron HCl (Zofran) 4 mg Q6H PRN IVP Nausea & Vomiting 05/26/19 06:45 06/16/19 06:44 Pantoprazole (Protonix) 40 mg EVERY 12 HOURS IVP 05/26/19 09:00 06/17/19 20:59 05/26/19 09:15 Piperacillin Sod/ Tazobactam Sod 3.375 gm/Sodium Chloride 110 ml @ 27.5 mls/hr EVERY 8 HOURS IVPB 05/26/19 14:00 05/31/19 13:59 Rifaximin (Xifaxan) 550 mg EVERY 12 HOURS NG 05/26/19 09:00 06/01/19 23:00 05/26/19 09:16 Shireen Khan MD May 26, 2019 11:36
--- NOTE | 2019-05-26 11:59 | GI Progress Note ---
Assessment/Plan Problems: (1) Liver cirrhosis ICD Codes: K74.60 - Unspecified cirrhosis of liver SNOMED: 29356353 (2) Ascites ICD Codes: R18.8 - Other ascites SNOMED: 654139471 (3) Anemia ICD Codes: D64.9 - Anemia, unspecified SNOMED: 474937220 (4) Hepatic encephalopathy ICD Codes: K72.90 - Hepatic failure, unspecified without coma SNOMED: 09724868 (5) ETOH abuse ICD Codes: F10.10 - Alcohol abuse, uncomplicated SNOMED: 98663930 Status: progressing Status Narrative Discussed with Dr. Torres. Assessment/Plan dc OGT, advance diet as tolerated lactulose cont Xifaxan neg stool ob fu H&H and transfuse prn ppi abx The patient was seen and examined at bedside and all new and available data was reviewed in the patients chart. I agree with the above findings, impression and plan. (Patient seen earlier today. Signature stamp does not reflect patient encounter time.). - Jon Torres MD Subjective Subjective limited Objective Last 24 Hour Vital Signs Date Time Temp Pulse Resp B/P (MAP) Pulse Ox O2 Delivery O2 Flow Rate FiO2 05/26/19 08:00 98.2 95 21 125/77 (93) 96 95 05/26/19 08:00 Nasal Cannula 2.0 Nasal Cannula 2.0 05/26/19 08:00 98.2 95 21 125/97 (106) 97 05/26/19 07:00 98.7 99 20 123/76 (92) 99 05/26/19 06:30 92 28 100 Nasal Cannula 2.0 28 05/26/19 06:00 95 34 123/76 (92) 99 05/26/19 05:00 94 30 114/72 (86) 97 05/26/19 04:00 30 05/26/19 04:00 Nasal Cannula 2.0 Nasal Cannula 2.0 05/26/19 04:00 97 05/26/19 04:00 98.0 96 29 119/74 (89) 96 05/26/19 03:00 97 31 113/67 (82) 99 05/26/19 02:00 97 31 114/68 (83) 99 05/26/19 01:00 96 33 108/62 (77) 98 05/26/19 00:00 98.8 95 31 119/65 (83) 98 05/26/19 00:00 97 05/26/19 00:00 30 05/26/19 00:00 Nasal Cannula 2.0 Nasal Cannula 2.0 05/25/19 23:00 97 30 115/65 (82) 99 05/25/19 22:00 98 28 109/65 (80) 99 05/25/19 21:00 96 31 120/59 (79) 100 05/25/19 20:00 98.5 95 29 111/59 (76) 100 05/25/19 20:00 97 05/25/19 20:00 Nasal Cannula 2.0 Nasal Cannula 2.0 05/25/19 20:00 30 05/25/19 19:00 96 25 120/62 (81) 100 05/25/19 18:00 95 32 109/62 (78) 97 05/25/19 17:00 98.8 94 28 110/60 (77) 100 05/25/19 16:00 96 05/25/19 16:00 Nasal Cannula 2.0 Nasal Cannula 2.0 05/25/19 16:00 96 26 111/59 (76) 100 05/25/19 15:15 2.0 05/25/19 15:15 Nasal Cannula 4.0 36 05/25/19 15:00 97 16 110/66 (81) 100 05/25/19 14:00 99 14 114/62 (79) 100 05/25/19 13:00 95 18 111/70 (84) 100 05/25/19 12:44 99 18 30 05/25/19 12:00 102 05/25/19 12:00 98.7 100 19 125/69 (87) 100 05/25/19 12:00 Mechanical Ventilator 05/25/19 12:00 30 Intake and Output 05/25/19 05/26/19 19:00 07:00 Intake Total 910.0 ml 857.5 ml Output Total 206 ml 130 ml Balance 704.0 ml 727.5 ml Free Water 80 ml 60 ml IV Total 110.0 ml 137.5 ml Tube Feeding 720 ml 660 ml Output Urine Total 206 ml 130 ml # Bowel Movements 5 5 Laboratory Tests Test 05/25/19 13:45 05/26/19 04:00 Body Fluid Source Paracentesis Body Fluid Volume 24 mL Body Fluid Appearance Hazy (Clear) Body Fluid RBC 323 /CUMM Body Fluid Total Nucleated Cells 65 /CUMM Body Fluid Polynuclear WBCs (%) 19 % Body Fluid Mononuclear WBCs (%) 79 % Body Fluid Mesothelial Cells (%) 2 % White Blood Count 15.2 K/UL (4.8-10.8) H Red Blood Count 2.61 M/UL (4.20-5.40) L Hemoglobin 7.8 G/DL (12.0-16.0) L Hematocrit 25.6 % (37.0-47.0) L Mean Corpuscular Volume 98 FL (80-99) Mean Corpuscular Hemoglobin 29.7 PG (27.0-31.0) Mean Corpuscular Hemoglobin Concent 30.2 G/DL (32.0-36.0) L Red Cell Distribution Width 28.2 % (11.6-14.8) H Platelet Count 79 K/UL (150-450) L Mean Platelet Volume 6.1 FL (6.5-10.1) L Neutrophils (%) (Auto) % (45.0-75.0) Lymphocytes (%) (Auto) % (20.0-45.0) Monocytes (%) (Auto) % (1.0-10.0) Eosinophils (%) (Auto) % (0.0-3.0) Basophils (%) (Auto) % (0.0-2.0) Differential Total Cells Counted 100 Neutrophils % (Manual) 85 % (45-75) H Lymphocytes % (Manual) 10 % (20-45) L Monocytes % (Manual) 4 % (1-10) Eosinophils % (Manual) 0 % (0-3) Basophils % (Manual) 0 % (0-2) Band Neutrophils 1 % (0-8) Platelet Estimate Decreased L Platelet Morphology Normal Polychromasia 1+ Hypochromasia 1+ Anisocytosis 3+ Sodium Level 141 MMOL/L (136-145) Potassium Level 5.0 MMOL/L (3.5-5.1) Chloride Level 111 MMOL/L (98-107) H Carbon Dioxide Level 18 MMOL/L (21-32) L Anion Gap 12 mmol/L (5-15) Blood Urea Nitrogen 47 mg/dL (7-18) H Creatinine 2.1 MG/DL (0.55-1.30) H Estimat Glomerular Filtration Rate 24.3 mL/min (>60) Glucose Level 161 MG/DL (74-106) H Calcium Level 8.3 MG/DL (8.5-10.1) L Total Bilirubin 6.5 MG/DL (0.2-1.0) H Direct Bilirubin 5.5 MG/DL (0.0-0.3) H Aspartate Amino Transf (AST/SGOT) 42 U/L (15-37) H Alanine Aminotransferase (ALT/SGPT) 7 U/L (12-78) L Alkaline Phosphatase 240 U/L (46-116) H Total Protein 5.9 G/DL (6.4-8.2) L Albumin 1.1 G/DL (3.4-5.0) L Globulin 4.8 g/dL Albumin/Globulin Ratio 0.2 (1.0-2.7) L Microbiology Date/Time Source Procedure Growth Status 05/25/19 13:45 Abdominal Fluid Gram Stain - Final Resulted 05/25/19 13:45 Abdominal Fluid Body Fluid Culture - Preliminary NO GROWTH Resulted Height (Feet): 5 Height (Inches): 0.00 Weight (Pounds): 194 General Appearance: no apparent distress Cardiovascular: normal rate Respiratory/Chest: normal breath sounds, no respiratory distress Abdominal Exam: normal bowel sounds, non tender, soft Extremities: non-tender Indu Lane NP May 26, 2019 11:59
--- NOTE | 2019-05-26 12:06 | Infectious Diseases Prog Note ---
Assessment/Plan Assessment/Plan Assessment/Plan 58 yo female with PMHx of Liver cirrhosis with recurrent ascites, HTN, ETOH abuse, DM and Hepatic encephalopathy who presented to the ED on 05/17/19 with AMS. Lt hand tender and mild erythema Sepsis Probable UTI UCx : Strp ( Ro VRE) Urine Cx 05/17/19 - K. pneumo Probable VAP Scx: yeast 05/25 CXR : Possibly new or increased bilateral infrahilar opacities, could represent small patchy infiltrates. Ascites ro probable SBP \ 05/25 Sp US guided paracentesis, yielding 4.1 liters of fluid Cell : Perit F cell count: 65 05/19 sp paracentesis ( no Cx or Cell count sent) AMS, sp Hepatic encephalopathy ? vs Urosepsis Leukocytosis increasing No fever Hx Gram negative bacteremia -05/03 BCx / ACHROMOBACTER XYLOSOXIDANS (S Zosyn, Ceftazidime, bactrim; R cefepime; I imipenem, Levaquin); 05/05 Bcx NTD Recurrent ascites -05/05 SP paracentesis: 3.5 L removed wbc 170 (N 49%); cx Neg - -03/11/19 sp paracentesis:fluid wbc 97 (N 34%) 05/25 Sp Extubation HTN DM Liver Cirrhosis EtOH abuse Plan: Cont Zosyn # 3, add Zyvox # 1 -05/24 Sp Cefazolin # 3 - 05/22/19 SP Cefepime #5 Flagyl #5 and Vancomycin #5 - Perit F Cx -Monitor CBC/CMP Subjective Allergies: Coded Allergies: No Known Allergies (Unverified , 01/31/19) Subjective transferred out of ICU Objective Vital Signs Last 24 Hour Vital Signs Date Time Temp Pulse Resp B/P (MAP) Pulse Ox O2 Delivery O2 Flow Rate FiO2 05/26/19 08:00 98.2 95 21 125/77 (93) 96 95 05/26/19 08:00 Nasal Cannula 2.0 Nasal Cannula 2.0 05/26/19 08:00 98.2 95 21 125/97 (106) 97 05/26/19 07:00 98.7 99 20 123/76 (92) 99 05/26/19 06:30 92 28 100 Nasal Cannula 2.0 28 05/26/19 06:00 95 34 123/76 (92) 99 05/26/19 05:00 94 30 114/72 (86) 97 05/26/19 04:00 30 05/26/19 04:00 Nasal Cannula 2.0 Nasal Cannula 2.0 05/26/19 04:00 97 05/26/19 04:00 98.0 96 29 119/74 (89) 96 05/26/19 03:00 97 31 113/67 (82) 99 05/26/19 02:00 97 31 114/68 (83) 99 05/26/19 01:00 96 33 108/62 (77) 98 05/26/19 00:00 98.8 95 31 119/65 (83) 98 05/26/19 00:00 97 05/26/19 00:00 30 05/26/19 00:00 Nasal Cannula 2.0 Nasal Cannula 2.0 05/25/19 23:00 97 30 115/65 (82) 99 05/25/19 22:00 98 28 109/65 (80) 99 05/25/19 21:00 96 31 120/59 (79) 100 05/25/19 20:00 98.5 95 29 111/59 (76) 100 05/25/19 20:00 97 05/25/19 20:00 Nasal Cannula 2.0 Nasal Cannula 2.0 05/25/19 20:00 30 05/25/19 19:00 96 25 120/62 (81) 100 05/25/19 18:00 95 32 109/62 (78) 97 05/25/19 17:00 98.8 94 28 110/60 (77) 100 05/25/19 16:00 96 05/25/19 16:00 Nasal Cannula 2.0 Nasal Cannula 2.0 05/25/19 16:00 96 26 111/59 (76) 100 05/25/19 15:15 2.0 05/25/19 15:15 Nasal Cannula 4.0 36 05/25/19 15:00 97 16 110/66 (81) 100 05/25/19 14:00 99 14 114/62 (79) 100 05/25/19 13:00 95 18 111/70 (84) 100 05/25/19 12:44 99 18 30 Height (Feet): 5 Height (Inches): 0.00 Weight (Pounds): 194 HEENT: anicteric Respiratory/Chest: no respiratory distress Cardiovascular: regularly irregular Abdomen: no organomegaly Microbiology Date/Time Source Procedure Growth Status 05/24/19 11:40 Blood Blood Culture - Preliminary NO GROWTH AFTER 24 HOURS Resulted 05/24/19 11:30 Blood Blood Culture - Preliminary NO GROWTH AFTER 24 HOURS Resulted 05/24/19 11:30 Sputum Expectorated Gram Stain - Final Resulted 05/24/19 11:30 Sputum Culture - Preliminary Yeast Species Resulted 05/24/19 15:00 Urine,Clean Catch Urine Culture - Preliminary Strep Species, Gamma-Hemolytic Resulted 05/25/19 13:45 Abdominal Fluid Gram Stain - Final Resulted 05/25/19 13:45 Abdominal Fluid Body Fluid Culture - Preliminary NO GROWTH Resulted Laboratory Tests Test 05/25/19 13:45 05/26/19 04:00 Body Fluid Source Paracentesis Body Fluid Volume 24 mL Body Fluid Appearance Hazy (Clear) Body Fluid RBC 323 /CUMM Body Fluid Total Nucleated Cells 65 /CUMM Body Fluid Polynuclear WBCs (%) 19 % Body Fluid Mononuclear WBCs (%) 79 % Body Fluid Mesothelial Cells (%) 2 % White Blood Count 15.2 K/UL (4.8-10.8) H Red Blood Count 2.61 M/UL (4.20-5.40) L Hemoglobin 7.8 G/DL (12.0-16.0) L Hematocrit 25.6 % (37.0-47.0) L Mean Corpuscular Volume 98 FL (80-99) Mean Corpuscular Hemoglobin 29.7 PG (27.0-31.0) Mean Corpuscular Hemoglobin Concent 30.2 G/DL (32.0-36.0) L Red Cell Distribution Width 28.2 % (11.6-14.8) H Platelet Count 79 K/UL (150-450) L Mean Platelet Volume 6.1 FL (6.5-10.1) L Neutrophils (%) (Auto) % (45.0-75.0) Lymphocytes (%) (Auto) % (20.0-45.0) Monocytes (%) (Auto) % (1.0-10.0) Eosinophils (%) (Auto) % (0.0-3.0) Basophils (%) (Auto) % (0.0-2.0) Differential Total Cells Counted 100 Neutrophils % (Manual) 85 % (45-75) H Lymphocytes % (Manual) 10 % (20-45) L Monocytes % (Manual) 4 % (1-10) Eosinophils % (Manual) 0 % (0-3) Basophils % (Manual) 0 % (0-2) Band Neutrophils 1 % (0-8) Platelet Estimate Decreased L Platelet Morphology Normal Polychromasia 1+ Hypochromasia 1+ Anisocytosis 3+ Sodium Level 141 MMOL/L (136-145) Potassium Level 5.0 MMOL/L (3.5-5.1) Chloride Level 111 MMOL/L (98-107) H Carbon Dioxide Level 18 MMOL/L (21-32) L Anion Gap 12 mmol/L (5-15) Blood Urea Nitrogen 47 mg/dL (7-18) H Creatinine 2.1 MG/DL (0.55-1.30) H Estimat Glomerular Filtration Rate 24.3 mL/min (>60) Glucose Level 161 MG/DL (74-106) H Calcium Level 8.3 MG/DL (8.5-10.1) L Total Bilirubin 6.5 MG/DL (0.2-1.0) H Direct Bilirubin 5.5 MG/DL (0.0-0.3) H Aspartate Amino Transf (AST/SGOT) 42 U/L (15-37) H Alanine Aminotransferase (ALT/SGPT) 7 U/L (12-78) L Alkaline Phosphatase 240 U/L (46-116) H Total Protein 5.9 G/DL (6.4-8.2) L Albumin 1.1 G/DL (3.4-5.0) L Globulin 4.8 g/dL Albumin/Globulin Ratio 0.2 (1.0-2.7) L Current Medications Medications (Trade) Dose Ordered Sig/Almaz Route PRN Reason Start Time Stop Time Status Last Admin Dose Admin Betamethasone/ Clotrimazole (Lotrisone) 1 applic TWICE A DAY TOPIC 05/26/19 18:00 06/25/19 17:59 Chlorhexidine Gluconate (Shannon-Hex 2%) 1 applic DAILY@1999 TOPIC 05/26/19 20:00 06/17/19 19:59 Dextrose (Dextrose 50%) 25 ml Q30M PRN IV Hypoglycemia 05/26/19 06:45 06/16/19 21:44 Dextrose (Dextrose 50%) 50 ml Q30M PRN IV Hypoglycemia 05/26/19 06:45 06/16/19 21:44 Insulin Aspart (NovoLOG) Q6HR SUBQ 05/26/19 12:00 06/24/19 11:59 Lactulose (Cephulac) 10 gm THREE TIMES A DAY NG 05/26/19 09:00 06/17/19 10:29 05/26/19 09:15 Ondansetron HCl (Zofran) 4 mg Q6H PRN IVP Nausea & Vomiting 05/26/19 06:45 06/16/19 06:44 Pantoprazole (Protonix) 40 mg EVERY 12 HOURS IVP 05/26/19 09:00 06/17/19 20:59 05/26/19 09:15 Piperacillin Sod/ Tazobactam Sod 3.375 gm/Sodium Chloride 110 ml @ 27.5 mls/hr EVERY 8 HOURS IVPB 05/26/19 14:00 05/31/19 13:59 Rifaximin (Xifaxan) 550 mg EVERY 12 HOURS NG 05/26/19 09:00 06/01/19 23:00 05/26/19 09:16 Krzysztof Hu MD May 26, 2019 12:06
--- NOTE | 2019-05-26 13:51 | Nephrology Progress Note ---
Assessment/Plan Problem List: (1) ATN (acute tubular necrosis) (2) Sepsis (3) Acute respiratory failure (4) Acute on chronic alcoholic liver disease Assessment: worsening bili (5) Anemia Assessment Renal failure- Acute On May 09, 2019 normal renal parameters Severe Anemia, Acute on chronic- Acute part from right groin attempted line insertion Severe HypoAlbuminemia, Cirrhosis, ALD, Ascites Sepsis- High lactic Acid Acute respiratory failure Previous gram negative bacteremia / Sepsis Plan extubated 05/25 Hydrate- slow K supplement as needed Antibiotics Monitor renal parameters avoid nephrotoxics transfuse as needed- per orders discussed with RN Subjective ROS Limited/Unobtainable: No Constitutional: Reports: other - now extubated Objective Objective Last 24 Hour Vital Signs Date Time Temp Pulse Resp B/P (MAP) Pulse Ox O2 Delivery O2 Flow Rate FiO2 05/26/19 08:00 98.2 95 21 125/77 (93) 96 95 05/26/19 08:00 Nasal Cannula 2.0 Nasal Cannula 2.0 05/26/19 08:00 98.2 95 21 125/97 (106) 97 05/26/19 07:00 98.7 99 20 123/76 (92) 99 05/26/19 06:30 92 28 100 Nasal Cannula 2.0 28 05/26/19 06:00 95 34 123/76 (92) 99 05/26/19 05:00 94 30 114/72 (86) 97 05/26/19 04:00 30 05/26/19 04:00 Nasal Cannula 2.0 Nasal Cannula 2.0 05/26/19 04:00 97 05/26/19 04:00 98.0 96 29 119/74 (89) 96 05/26/19 03:00 97 31 113/67 (82) 99 05/26/19 02:00 97 31 114/68 (83) 99 05/26/19 01:00 96 33 108/62 (77) 98 05/26/19 00:00 98.8 95 31 119/65 (83) 98 05/26/19 00:00 97 05/26/19 00:00 30 05/26/19 00:00 Nasal Cannula 2.0 Nasal Cannula 2.0 05/25/19 23:00 97 30 115/65 (82) 99 05/25/19 22:00 98 28 109/65 (80) 99 05/25/19 21:00 96 31 120/59 (79) 100 05/25/19 20:00 98.5 95 29 111/59 (76) 100 05/25/19 20:00 97 05/25/19 20:00 Nasal Cannula 2.0 Nasal Cannula 2.0 05/25/19 20:00 30 05/25/19 19:00 96 25 120/62 (81) 100 05/25/19 18:00 95 32 109/62 (78) 97 05/25/19 17:00 98.8 94 28 110/60 (77) 100 05/25/19 16:00 96 05/25/19 16:00 Nasal Cannula 2.0 Nasal Cannula 2.0 05/25/19 16:00 96 26 111/59 (76) 100 05/25/19 15:15 2.0 05/25/19 15:15 Nasal Cannula 4.0 36 05/25/19 15:00 97 16 110/66 (81) 100 05/25/19 14:00 99 14 114/62 (79) 100 Intake and Output 05/25/19 05/26/19 19:00 07:00 Intake Total 910.0 ml 857.5 ml Output Total 206 ml 130 ml Balance 704.0 ml 727.5 ml Free Water 80 ml 60 ml IV Total 110.0 ml 137.5 ml Tube Feeding 720 ml 660 ml Output Urine Total 206 ml 130 ml # Bowel Movements 5 5 Laboratory Tests 05/26/19 04:00: White Blood Count 15.2H, Red Blood Count 2.61L, Hemoglobin 7.8L, Hematocrit 25.6L, Mean Corpuscular Volume 98, Mean Corpuscular Hemoglobin 29.7, Mean Corpuscular Hemoglobin Concent 30.2L, Red Cell Distribution Width 28.2H, Platelet Count 79L, Mean Platelet Volume 6.1L, Neutrophils (%) (Auto) , Lymphocytes (%) (Auto) , Monocytes (%) (Auto) , Eosinophils (%) (Auto) , Basophils (%) (Auto) , Differential Total Cells Counted 100, Neutrophils % ( Manual) 85H, Lymphocytes % (Manual) 10L, Monocytes % (Manual) 4, Eosinophils % ( Manual) 0, Basophils % (Manual) 0, Band Neutrophils 1, Platelet Estimate DecreasedL, Platelet Morphology Normal, Polychromasia 1+, Hypochromasia 1+, Anisocytosis 3+, Sodium Level 141, Potassium Level 5.0, Chloride Level 111H, Carbon Dioxide Level 18L, Anion Gap 12, Blood Urea Nitrogen 47H, Creatinine 2.1H , Estimat Glomerular Filtration Rate 24.3, Glucose Level 161H, Calcium Level 8.3L, Total Bilirubin 6.5H, Direct Bilirubin 5.5H, Aspartate Amino Transf (AST/ SGOT) 42H, Alanine Aminotransferase (ALT/SGPT) 7L, Alkaline Phosphatase 240H, Total Protein 5.9L, Albumin 1.1L, Globulin 4.8, Albumin/Globulin Ratio 0.2L Height (Feet): 5 Height (Inches): 0.00 Weight (Pounds): 194 General Appearance: other - jaundiced Cardiovascular: tachycardia Respiratory/Chest: decreased breath sounds Abdomen: distended Objective no change Jovany Byers MD May 26, 2019 13:51
--- NOTE | 2019-05-26 14:05 | NUR ---
RD ASSESSMENT & RECOMMENDATIONS SEE CARE ACTIVITY FOR COMPLETE ASSESSMENT DAILY ESTIMATED NEEDS: Needs based on Cirrhosis, wound/ 58kg adj 25-30 kcals/kg 6429-9126 total kcals 1.25-1.5 g protein/kg 72-87 g total protein 20-25 mL/kg 4423-0146 total fluid mLs NUTRITION DIAGNOSIS: * Swallowing difficulty R/T respiratory status as evidenced by pt orally intubated, now s/p terminal extubation, remains on OGT feeding * Altered nutrition related lab values R/T cirrhosis, sepsis, clinical condition as evidenced by elev T bili (6.5), elev NH3 (152 ->43), elev LA, elev creat (2.0 -> wnl). CURRENT TF:Glucerna 1.2 @ 60ml/hr x 24 hrs PO DIET RECOMMENDATIONS: IF SAFE FOR ORAL DIET: LOW NA + CCHO LOW/ texture per INVESTMENT ADVISOR ENTERAL NUTRITION RECOMMENDATIONS: Glucerna 1.2 @ 60ml/hr x 24 hrs to provide 1440ml, 1728kcal, 86g prot, 1159ml free water * If pt is to continue TF, maintain current TF. * HOB over 30 degrees/ water flush per MD. ADDITIONAL RECOMMENDATIONS: * Calibrated bedscale wt for accurate CBW * Monitor POC: s/p terminal extubation, DNR/DNI : remains on OGT feeding at this time * Wound healing: add VIt C 500mg QD, ZnSO4 220mg QD x 10 days : Miquel BID as able .
--- NOTE | 2019-05-26 14:27 | NUR ---
ST NOTES: REFERRED FOR SWALLOW EVAL BY GI ARTIFICIAL INSEMINATOR KIMANI, SEE FULL REPORT TO FOLLOW. DYSPHAGIA RISK FACTORS FOR THIS 58 Y.O. MICRONESIAN-SPEAKING ([place]) FEMALE: ACUTE ISSUES: SEPSIS (3RD TIME), ACUTE METABOLIC AND HEPATIC ENCEPHALOPATHY, LUNG INFILTRATES, RENAL FAILURE, ANASARCA, RESP FAILURE AND INTUBATED 05/17/19 H/O GERD ON MEDS AT [facility], ALCOHOLIC CIRRHOSIS OF LIVER WITH ASCITES, ETOH ABUSE IN REMISSION, CYSTIC FIBROSIS, HTN, DM, IBS, CARDIAC FAILURE, AKF,SEPSIS 05/03 AND 04/28/19 AT [facility]. OK TO HAVE TF (HAS OGT SINCE 05/18/19 UNTIL NOW). AT [facility] ON A REGULAR TEXTURE DIET AND THIN LIQUIDS. CURRENTLY NPO AND HAS PROBLEMS CLEARING ORAL SECRETIONS PER RT. RAPID RR AT TIME 35 OR ABOVE ON 2 LITER NC SOB AT REST. VERY TIRED ONLY MOANS WHEN RIGHT HAND TOUCHED. C/O BACK PAIN PER FAMILY. INITIAL IMPRESSION: TOO WEAK AND POOR ABILITY TO FOLLOW ORAL COMMANDS, TONGUE MOVEMENT IS VERY SLOW AND LIMITED IN ROM AND STRENGTH. DID NOT PHONATE NOR PRODUCE VOICE TO COMMAND DYSPHAGIA FOR OWN MILD ORAL SECRETIONS AND WEAK COUGH HIGH RISK FOR SIGNIFICANT DYSPHAGIA AND SILENT ASPIRATION DUE TO METABOLIC AND HEPATIC ENCEPHALOPATHY (HAS LUNG INFILTRATES NOW) HIGH RISK FOR POOR TO MIN PO INTAKE RECOMMENDATIONS: CONTINUE WITH NONORAL FEEDINGS BUT REPLACE OGT WITH 12 [place] NGT. ORAL CARE AND SUCTION WITH ASPIRATION PRECAUTIONS MODIFIED BARIUM SWALLOW STUDY ONLY WHEN READY (NOT READY TODAY MOST LIKELY THURSDAY OR LATER) TO FURTHER ASSESS SWALLOW, DETERMINE SILENT ASP RISK/ETIOLOGY, AND ATTEMPT TRIAL TX. SKILLED DYSPHAGIA MANAGEMENT AND TX [facility] EVAL/[place] EDUCATED/TRAINED STAFF (ANDERS PAREKH) (CHAVA OLIVEROS) IN POSTED PRECAUTIONS D/W GI GABRIEL HARMAN WHO AGREES WITH RECOMMENDATIONS LEFT MESSAGE WITH BOTH SONS
--- NOTE | 2019-05-26 15:56 | Internal Med Progress Note ---
Subjective Date of Service: May 26, 2019 Physician Name Jose Benjamin Attending Physician Goldy Amador MD Current Medications Medications (Trade) Dose Ordered Sig/Almaz Route PRN Reason Start Time Stop Time Status Last Admin Dose Admin Betamethasone/ Clotrimazole (Lotrisone) 1 applic TWICE A DAY TOPIC 05/26/19 18:00 06/25/19 17:59 Chlorhexidine Gluconate (Shannon-Hex 2%) 1 applic DAILY@1999 TOPIC 05/26/19 20:00 06/17/19 19:59 Dextrose (Dextrose 50%) 25 ml Q30M PRN IV Hypoglycemia 05/26/19 06:45 06/16/19 21:44 Dextrose (Dextrose 50%) 50 ml Q30M PRN IV Hypoglycemia 05/26/19 06:45 06/16/19 21:44 Insulin Aspart (NovoLOG) Q6HR SUBQ 05/26/19 12:00 06/24/19 11:59 05/26/19 12:29 Lactulose (Cephulac) 10 gm THREE TIMES A DAY NG 05/26/19 09:00 06/17/19 10:29 05/26/19 12:28 Linezolid (Zyvox) 600 mg EVERY 12 HOURS NG 05/26/19 13:00 05/31/19 12:59 05/26/19 13:28 Ondansetron HCl (Zofran) 4 mg Q6H PRN IVP Nausea & Vomiting 05/26/19 06:45 06/16/19 06:44 Pantoprazole (Protonix) 40 mg EVERY 12 HOURS IVP 05/26/19 09:00 06/17/19 20:59 05/26/19 09:15 Piperacillin Sod/ Tazobactam Sod 3.375 gm/Sodium Chloride 110 ml @ 27.5 mls/hr EVERY 8 HOURS IVPB 05/26/19 14:00 05/31/19 13:59 05/26/19 13:29 Rifaximin (Xifaxan) 550 mg EVERY 12 HOURS NG 05/26/19 09:00 06/01/19 23:00 05/26/19 09:16 Allergies: Coded Allergies: No Known Allergies (Unverified , 01/31/19) ROS Limited/Unobtainable: Yes Subjective 58 YO F admitted with respiratory failure and presumed septic shock. Now UTI. Cover for Int Med-Dr Amador. Extubated 05/25/19. S/P paracentesis 05/25/19 Objective Last Vital Signs Date Time Temp Pulse Resp B/P (MAP) Pulse Ox O2 Delivery O2 Flow Rate FiO2 05/26/19 12:00 Nasal Cannula 2.0 Nasal Cannula 2.0 05/26/19 12:00 98.1 93 19 123/59 (80) 94 05/26/19 06:30 28 Laboratory Tests Test 05/26/19 04:00 White Blood Count 15.2 K/UL (4.8-10.8) H Red Blood Count 2.61 M/UL (4.20-5.40) L Hemoglobin 7.8 G/DL (12.0-16.0) L Hematocrit 25.6 % (37.0-47.0) L Mean Corpuscular Volume 98 FL (80-99) Mean Corpuscular Hemoglobin 29.7 PG (27.0-31.0) Mean Corpuscular Hemoglobin Concent 30.2 G/DL (32.0-36.0) L Red Cell Distribution Width 28.2 % (11.6-14.8) H Platelet Count 79 K/UL (150-450) L Mean Platelet Volume 6.1 FL (6.5-10.1) L Neutrophils (%) (Auto) % (45.0-75.0) Lymphocytes (%) (Auto) % (20.0-45.0) Monocytes (%) (Auto) % (1.0-10.0) Eosinophils (%) (Auto) % (0.0-3.0) Basophils (%) (Auto) % (0.0-2.0) Differential Total Cells Counted 100 Neutrophils % (Manual) 85 % (45-75) H Lymphocytes % (Manual) 10 % (20-45) L Monocytes % (Manual) 4 % (1-10) Eosinophils % (Manual) 0 % (0-3) Basophils % (Manual) 0 % (0-2) Band Neutrophils 1 % (0-8) Platelet Estimate Decreased L Platelet Morphology Normal Polychromasia 1+ Hypochromasia 1+ Anisocytosis 3+ Sodium Level 141 MMOL/L (136-145) Potassium Level 5.0 MMOL/L (3.5-5.1) Chloride Level 111 MMOL/L (98-107) H Carbon Dioxide Level 18 MMOL/L (21-32) L Anion Gap 12 mmol/L (5-15) Blood Urea Nitrogen 47 mg/dL (7-18) H Creatinine 2.1 MG/DL (0.55-1.30) H Estimat Glomerular Filtration Rate 24.3 mL/min (>60) Glucose Level 161 MG/DL (74-106) H Calcium Level 8.3 MG/DL (8.5-10.1) L Total Bilirubin 6.5 MG/DL (0.2-1.0) H Direct Bilirubin 5.5 MG/DL (0.0-0.3) H Aspartate Amino Transf (AST/SGOT) 42 U/L (15-37) H Alanine Aminotransferase (ALT/SGPT) 7 U/L (12-78) L Alkaline Phosphatase 240 U/L (46-116) H Total Protein 5.9 G/DL (6.4-8.2) L Albumin 1.1 G/DL (3.4-5.0) L Globulin 4.8 g/dL Albumin/Globulin Ratio 0.2 (1.0-2.7) L Microbiology Date/Time Source Procedure Growth Status 05/24/19 11:40 Blood Blood Culture - Preliminary NO GROWTH AFTER 24 HOURS Resulted 05/24/19 11:30 Blood Blood Culture - Preliminary NO GROWTH AFTER 24 HOURS Resulted 05/24/19 11:30 Sputum Expectorated Gram Stain - Final Resulted 05/24/19 11:30 Sputum Culture - Preliminary Yeast Species Resulted 05/24/19 15:00 Urine,Clean Catch Urine Culture - Preliminary Strep Species, Gamma-Hemolytic Resulted 05/25/19 13:45 Abdominal Fluid Gram Stain - Final Resulted 05/25/19 13:45 Abdominal Fluid Body Fluid Culture - Preliminary NO GROWTH Resulted Intake and Output 05/25/19 05/26/19 19:00 07:00 Intake Total 910.0 ml 857.5 ml Output Total 206 ml 130 ml Balance 704.0 ml 727.5 ml Free Water 80 ml 60 ml IV Total 110.0 ml 137.5 ml Tube Feeding 720 ml 660 ml Output Urine Total 206 ml 130 ml # Bowel Movements 5 5 Objective PHYSICAL EXAMINATION: GENERAL: The patient is a well-developed and well-nourished obese female, who is intubated and sedated. HEENT: Eyes, pupils are equal and responsive to light and accommodation. Extraocular movements are intact. NECK: Supple without lymphadenopathy. CHEST: nasal canula; Coarse upper breath sounds, otherwise without wheezes or rales. CARDIOVASCULAR: Regular rhythm, rate. S1, S2 normal without murmurs, rubs, or gallops. ABDOMEN: Soft, distended with decreased bowel sounds. No evidence of hepatosplenomegaly. Currently, no rebound or guarding noted. EXTREMITIES: Negative for clubbing, cyanosis, or edema. RECTAL/GENITAL: Not performed. NEUROLOGICAL: Unable to assess. Assessment/Plan Assessment/Plan ASSESSMENT: This is a 58-year-old female. 1. Respiratory failure. 2. Urinary tract infection=klebsiella pneumoniae 3. Probable sepsis. 4. Probable septic shock. 5. Alcoholic cirrhosis of the liver. 6. Hypertension. 7. Diabetes type 2. 8. Ascites. 9. Hypercholesterolemia. TREATMENT: 1. Respiratory failure. A Pulmonary consultation has been obtained with Dr. Shireen Khan. The patient is currently intubated and sedated in the intensive care unit. We will follow recommendations of Pulmonary. 2. Urinary tract infection. An Infectious Disease consultation has been obtained with Dr. Hu. ABX=zosyn Urine culture=klebsiella 3. Probable sepsis-increased WBC. See ID note 4. Septic shock. 5. Alcoholic cirrhosis of liver. A Gastroenterology consultation has been obtained with Dr. Jon Torres. S/P paracentesis 05/19/19 6. Hypertension. The patient is currently hypotensive. Hold all antihypertensive medications. 7. Diabetes type 2. A NovoLog sliding scale has been instituted. 8. Ascites, as above. A Gastroenterology consultation has been obtained with Dr. Jon Torres. S/P paracentesis 05/19/19 and 05/25/19 9. Hypercholesterolemia. Jose Benjamin MD May 26, 2019 15:56
--- NOTE | 2019-05-26 17:38 | Surgery Progress Note ---
Surgery Progress Note Subjective Procedure Performed sepsis Symptoms: tolerating diet, voiding well, passing flatus, BM Objective Last 24 Hour Vital Signs Date Time Temp Pulse Resp B/P (MAP) Pulse Ox O2 Delivery O2 Flow Rate FiO2 05/26/19 16:00 Nasal Cannula 2.0 Nasal Cannula 2.0 05/26/19 16:00 98.4 98 20 123/72 (89) 95 05/26/19 12:00 Nasal Cannula 2.0 Nasal Cannula 2.0 05/26/19 12:00 98.1 93 19 123/59 (80) 94 05/26/19 08:00 98.2 95 21 125/77 (93) 96 95 05/26/19 08:00 Nasal Cannula 2.0 Nasal Cannula 2.0 05/26/19 08:00 98.2 95 21 125/97 (106) 97 05/26/19 07:00 98.7 99 20 123/76 (92) 99 05/26/19 06:30 92 28 100 Nasal Cannula 2.0 28 05/26/19 06:00 95 34 123/76 (92) 99 05/26/19 05:00 94 30 114/72 (86) 97 05/26/19 04:00 30 05/26/19 04:00 Nasal Cannula 2.0 Nasal Cannula 2.0 05/26/19 04:00 97 05/26/19 04:00 98.0 96 29 119/74 (89) 96 05/26/19 03:00 97 31 113/67 (82) 99 05/26/19 02:00 97 31 114/68 (83) 99 05/26/19 01:00 96 33 108/62 (77) 98 05/26/19 00:00 98.8 95 31 119/65 (83) 98 05/26/19 00:00 97 05/26/19 00:00 30 05/26/19 00:00 Nasal Cannula 2.0 Nasal Cannula 2.0 05/25/19 23:00 97 30 115/65 (82) 99 05/25/19 22:00 98 28 109/65 (80) 99 05/25/19 21:00 96 31 120/59 (79) 100 05/25/19 20:00 98.5 95 29 111/59 (76) 100 05/25/19 20:00 97 05/25/19 20:00 Nasal Cannula 2.0 Nasal Cannula 2.0 05/25/19 20:00 30 05/25/19 19:00 96 25 120/62 (81) 100 05/25/19 18:00 95 32 109/62 (78) 97 I&O Intake and Output 05/25/19 05/26/19 19:00 07:00 Intake Total 910.0 ml 857.5 ml Output Total 206 ml 130 ml Balance 704.0 ml 727.5 ml Free Water 80 ml 60 ml IV Total 110.0 ml 137.5 ml Tube Feeding 720 ml 660 ml Output Urine Total 206 ml 130 ml # Bowel Movements 5 5 Cardiovascular: RSR Respiratory: clear Abdomen: soft, non-tender, present bowel sounds, non-distended Extremities: no tenderness, no cyanosis, other Laboratory Tests Test 05/26/19 04:00 White Blood Count 15.2 K/UL (4.8-10.8) H Red Blood Count 2.61 M/UL (4.20-5.40) L Hemoglobin 7.8 G/DL (12.0-16.0) L Hematocrit 25.6 % (37.0-47.0) L Mean Corpuscular Volume 98 FL (80-99) Mean Corpuscular Hemoglobin 29.7 PG (27.0-31.0) Mean Corpuscular Hemoglobin Concent 30.2 G/DL (32.0-36.0) L Red Cell Distribution Width 28.2 % (11.6-14.8) H Platelet Count 79 K/UL (150-450) L Mean Platelet Volume 6.1 FL (6.5-10.1) L Neutrophils (%) (Auto) % (45.0-75.0) Lymphocytes (%) (Auto) % (20.0-45.0) Monocytes (%) (Auto) % (1.0-10.0) Eosinophils (%) (Auto) % (0.0-3.0) Basophils (%) (Auto) % (0.0-2.0) Differential Total Cells Counted 100 Neutrophils % (Manual) 85 % (45-75) H Lymphocytes % (Manual) 10 % (20-45) L Monocytes % (Manual) 4 % (1-10) Eosinophils % (Manual) 0 % (0-3) Basophils % (Manual) 0 % (0-2) Band Neutrophils 1 % (0-8) Platelet Estimate Decreased L Platelet Morphology Normal Polychromasia 1+ Hypochromasia 1+ Anisocytosis 3+ Sodium Level 141 MMOL/L (136-145) Potassium Level 5.0 MMOL/L (3.5-5.1) Chloride Level 111 MMOL/L (98-107) H Carbon Dioxide Level 18 MMOL/L (21-32) L Anion Gap 12 mmol/L (5-15) Blood Urea Nitrogen 47 mg/dL (7-18) H Creatinine 2.1 MG/DL (0.55-1.30) H Estimat Glomerular Filtration Rate 24.3 mL/min (>60) Glucose Level 161 MG/DL (74-106) H Calcium Level 8.3 MG/DL (8.5-10.1) L Total Bilirubin 6.5 MG/DL (0.2-1.0) H Direct Bilirubin 5.5 MG/DL (0.0-0.3) H Aspartate Amino Transf (AST/SGOT) 42 U/L (15-37) H Alanine Aminotransferase (ALT/SGPT) 7 U/L (12-78) L Alkaline Phosphatase 240 U/L (46-116) H Total Protein 5.9 G/DL (6.4-8.2) L Albumin 1.1 G/DL (3.4-5.0) L Globulin 4.8 g/dL Albumin/Globulin Ratio 0.2 (1.0-2.7) L Plan Problems: (1) Sacral decubitus ulcer Assessment & Plan: Pt presented on admission with icteric sclerae and skin. Moisture intertrigo Madhu/left abd folds.(1.5cm long). Moisture intertrigo R groin(8.5cm) slit noted with small amt bleeding. Mons pubis,labia majora and medial aspects of both upper thigh erythematous . Partial thickness wound noted to L thoracic. Base of wound is moist and viable. Edges flat and adherent to base of wound.No exudate noted. (L) 0.6cm x (W)0.8cm. Non-blanchable erythema sacrum,R and L buttocks with scattered shearing .Full thickness pressure injury noted to sacrococcygeal area. Base of wound is steve with small amt slough noted in center.(L) 0.7cm x (W)0.3cm. Area around wound is erythematous non-blanchable with shearing . Full thickness pressure injury R buttocks . Base of wound is moist, with Slough in center.Surrounding area erythematous and denuded. Evolving serous blister L heel.Base of wound is fluctuant with delineated,red margins.(L)3.5cm x (W)5.5cm. Periwound without erythema or fluctuance. R heel firm and blanchable. Tx.Plan: Apply Triad Paste to Sacrum and R buttocks. Cover wounds with Optifoam drsg. Change every 3 days and PRN. Apply Triad Paste to abd folds, R groin,Mons pubis, medial aspects of both upper thighs with each perineal care. Apply Optifoam drsg L thoracic wound. Cover with Optifoam drsg. Change every 3 days and prn. Apply Cavilon Skin Barrier to both heels. Cover each heel with Optifoam drsg. Change every 7 days and prn. APM/CHRISSY Mattress. Reposition at least every 2hours or as tolerated. Off-load heels with pillow (2) Liver cirrhosis Assessment & Plan: DAILY ESTIMATED NEEDS: Needs based on Cirrhosis, Critical care, sepsis/ 58kg adj 22-30 kcals/kg 1315-6088 total kcals 1.2-2 g protein/kg 70-116 g total protein 20-25 mL/kg 6677-4541 total fluid mLs NUTRITION DIAGNOSIS: * Swallowing difficulty R/T respiratory status as evidenced by pt orally intubated, NPO at this time * Altered nutrition related lab values R/T cirrhosis, sepsis, clinical condition as evidenced by elev T bili (5.5), elev NH3 (152), elev LA (6.7), elev creat (2.4). CURRENT TF:NPO PO DIET RECOMMENDATIONS: CONSTRUCTION SUPERVISOR/CARPENTER eval post extubation -> LOW NA ENTERAL NUTRITION RECOMMENDATIONS: Glucerna 1.2 @ 55ml/hr x 24 hrs to provide 1320ml, 1584kcal, 79g prot, 1063ml free water * Rec Glucerna 1.2 to maintain good BG control: h/o DM * As medically appropriate, initiate Glucerna 1.2 @ 25ml/hr x 6 hrs * Advance 10ml q 4-6 hrs as tolerated to goal rate. * HOB over 30 degrees/ water flush per MD. ADDITIONAL RECOMMENDATIONS: * Calibrated bedscale wt for accurate CBW * W/ TF, monitor need for NISS: h/o DM * F/up w/ wound eval: add Miquel 1pkt BID + VIt C 250mg QD * Monitor lytes, replete as needed . (3) Acute on chronic alcoholic liver disease (4) Sepsis Assessment & Plan: Restore insufficiency, leukocytosis, anemia, lactic acidosis , liver insufficiency, sepsis Right line removed and pressure held until hemostasis obtained. Currently no significant hematoma or post injury comp occasion identified. Site clean dry. Left line in place and stable. Will recommend PICC line so femoral line can be removed and more definitive long -term access can be obtained given patient's current medical condition and likelihood for prolonged hospitalization stay US noted and okay paracentesis PICC Continue IV antibiotics We will monitor and follow with recommendations Ultrasound ordered Efrain Whitaker May 26, 2019 17:38
[2019-05-26] MEDS: Lotrisone Cream 15gm TOPIC SCH (18:00)
--- NOTE | 2019-05-26 18:33 | Diagnostic Imaging Report ---
Indication: NG tube placement Comparison: 05/18/2019 Single view of the abdomen obtained Findings: NG tube tip is projected over the mid abdomen likely situated in the stomach. The proximal port is also in the stomach. IMPRESSION: Satisfactory position of the nasogastric tube
--- NOTE | 2019-05-26 19:09 | NUR ---
HAND-OFF: Report given to CHAVA Moreno.
--- NOTE | 2019-05-26 19:43 | NUR ---
NURSE NOTES: Received patient in bed, alert and oriented x1, total care, bed bound, non able to make her needs known, PICC line site is clean dry and intact, no acute distress noted, Draper catheter is in place, secured, draining well. NG tube is in place, confirmed by radiology, per Benjy GALLEY COOK resume feedings. Call light is within reach, bed is in low position, locked and alarm is on. Will continue to monitor for comfort and safety.
[2019-05-26] MEDS: Dyna-Hex 2% Top Sol 2oz TOPIC SCH (20:32)
[2019-05-27] VITALS: BP 104/63
[2019-05-27] MEDS: NovoLOG Insulin Flexpen SUBQ SCH ×5 (00:24→23:29)
[2019-05-27 04:00] VITALS: BP 111/64
[2019-05-27 05:21] LABS: HEMATOCRIT 26.6 % (37.0-47.0); HEMOGLOBIN 8.1 G/DL (12.0-16.0); MEAN CORPUSCULAR VOLUME 100 FL (80-99); PLATELET COUNT 83 K/UL (150-450); RED BLOOD COUNT 2.67 M/UL (4.20-5.40); RED CELL DISTRIBUTION WIDTH 28.4 % (11.6-14.8)
--- NOTE | 2019-05-27 05:22 | NUR ---
NURSE NOTES: Patient pulled NG tube out, re inserted another NG tube, ordered XRAY stat to ensure proper placement, CN is aware.
[2019-05-27 05:35] LABS: ANION GAP 11 mmol/L (5-15); BLOOD UREA NITROGEN 53 mg/dL (7-18); CALCIUM 8.4 MG/DL (8.5-10.1); CARBON DIOXIDE 20 MMOL/L (21-32); CHLORIDE 112 MMOL/L (98-107); CREATININE 2.2 MG/DL (0.55-1.30); SODIUM 143 MMOL/L (136-145)
[2019-05-27] MEDS: Piperacillin/Tazobactam 3.375 GM in NS 110 ML IVPB SCH ×3 (05:44→21:56)
--- NOTE | 2019-05-27 06:36 | Diagnostic Imaging Report ---
Indication: NG tube placement Comparison: None Single view of the abdomen obtained Findings: NG tube is in good position. Both the proximal and distal ports are in the stomach lumen. IMPRESSION: Satisfactory position of the nasogastric tube
--- NOTE | 2019-05-27 07:10 | NUR ---
HAND-OFF: Report given to Deborah LARSEN.
--- NOTE | 2019-05-27 07:31 | NUR ---
NURSE NOTES: received report from CHAVA Moreno. patient in bed. alert. forgetful confuse at times. verbally responsive. no respiratory distress noted. no c/o pain at this time. NGT running glucerna 1.2@60.NG tube reinserted during shift supervisor film processing. PICC line on left upper arm running IV zosyn. F/C draining. dark yellow. p200 mat for skin management. HOB at all time. bed in the lowest position and locked. call light within reach. alarm on. will continue to provide plan of care.
[2019-05-27 08:00] VITALS: BP 116/68
[2019-05-27] MEDS: Lactulose 20gm/30ml UDC NG SCH ×3 (08:36→17:09)
[2019-05-27] MEDS: Lotrisone Cream 15gm TOPIC SCH ×2 (08:37→17:09)
--- NOTE | 2019-05-27 10:35 | GI Progress Note ---
Assessment/Plan Problems: (1) Liver cirrhosis ICD Codes: K74.60 - Unspecified cirrhosis of liver SNOMED: 89791460 (2) Ascites ICD Codes: R18.8 - Other ascites SNOMED: 443288424 (3) Anemia ICD Codes: D64.9 - Anemia, unspecified SNOMED: 269803605 (4) Hepatic encephalopathy ICD Codes: K72.90 - Hepatic failure, unspecified without coma SNOMED: 24226491 (5) ETOH abuse ICD Codes: F10.10 - Alcohol abuse, uncomplicated SNOMED: 76164348 Status: unchanged Status Narrative Discussed with Dr. Torres. Assessment/Plan ST evaluation reviewed, patient not ready for PO insert NGT, start TF lactulose cont Xifaxan neg stool ob fu H&H and transfuse prn ppi abx The patient was seen and examined at bedside and all new and available data was reviewed in the patients chart. I agree with the above findings, impression and plan. (Patient seen earlier today. Signature stamp does not reflect patient encounter time.). - Jon Torres MD Subjective Subjective limited Objective Last 24 Hour Vital Signs Date Time Temp Pulse Resp B/P (MAP) Pulse Ox O2 Delivery O2 Flow Rate FiO2 05/27/19 08:00 98.1 93 18 116/68 (84) 97 93 05/27/19 04:00 97.9 90 18 111/64 (80) 90 05/27/19 03:36 Nasal Cannula 2.0 Nasal Cannula 2.0 05/27/19 00:00 98.4 93 18 104/63 (77) 93 05/27/19 00:00 Nasal Cannula 2.0 Nasal Cannula 2.0 05/26/19 20:00 98.7 95 18 111/70 (84) 95 05/26/19 20:00 Nasal Cannula 2.0 Nasal Cannula 2.0 05/26/19 16:00 Nasal Cannula 2.0 Nasal Cannula 2.0 05/26/19 16:00 98.4 98 20 123/72 (89) 95 05/26/19 12:00 Nasal Cannula 2.0 Nasal Cannula 2.0 05/26/19 12:00 98.1 93 19 123/59 (80) 94 Intake and Output 05/26/19 05/27/19 18:59 06:59 Intake Total 82.5 ml 690 ml Output Total 1000 ml Balance 82.5 ml -310 ml Free Water 150 ml IV Total 82.5 ml Tube Feeding 540 ml Output Urine Total 1000 ml # Bowel Movements 3 4 Laboratory Tests Test 05/27/19 04:00 White Blood Count 15.0 K/UL (4.8-10.8) H Red Blood Count 2.67 M/UL (4.20-5.40) L Hemoglobin 8.1 G/DL (12.0-16.0) L Hematocrit 26.6 % (37.0-47.0) L Mean Corpuscular Volume 100 FL (80-99) H Mean Corpuscular Hemoglobin 30.3 PG (27.0-31.0) Mean Corpuscular Hemoglobin Concent 30.4 G/DL (32.0-36.0) L Red Cell Distribution Width 28.4 % (11.6-14.8) H Platelet Count 83 K/UL (150-450) L Mean Platelet Volume 6.5 FL (6.5-10.1) Neutrophils (%) (Auto) % (45.0-75.0) Lymphocytes (%) (Auto) % (20.0-45.0) Monocytes (%) (Auto) % (1.0-10.0) Eosinophils (%) (Auto) % (0.0-3.0) Basophils (%) (Auto) % (0.0-2.0) Differential Total Cells Counted 100 Neutrophils % (Manual) 83 % (45-75) H Lymphocytes % (Manual) 10 % (20-45) L Monocytes % (Manual) 7 % (1-10) Eosinophils % (Manual) 0 % (0-3) Basophils % (Manual) 0 % (0-2) Band Neutrophils 0 % (0-8) Platelet Estimate Decreased L Platelet Morphology Normal Polychromasia 2+ Hypochromasia 1+ Anisocytosis 3+ Macrocytosis 1+ Sodium Level 143 MMOL/L (136-145) Potassium Level 5.0 MMOL/L (3.5-5.1) Chloride Level 112 MMOL/L (98-107) H Carbon Dioxide Level 20 MMOL/L (21-32) L Anion Gap 11 mmol/L (5-15) Blood Urea Nitrogen 53 mg/dL (7-18) H Creatinine 2.2 MG/DL (0.55-1.30) H Estimat Glomerular Filtration Rate 23.0 mL/min (>60) Glucose Level 143 MG/DL (74-106) H Calcium Level 8.4 MG/DL (8.5-10.1) L Height (Feet): 5 Height (Inches): 0.00 Weight (Pounds): 194 General Appearance: alert Cardiovascular: normal rate Respiratory/Chest: normal breath sounds Abdominal Exam: other - KANDYT Indu Lane NP May 27, 2019 10:35
[2019-05-27 12:00] VITALS: BP 121/69
--- NOTE | 2019-05-27 12:11 | Nephrology Progress Note ---
Assessment/Plan Problem List: (1) ATN (acute tubular necrosis) (2) Sepsis (3) Acute respiratory failure (4) Acute on chronic alcoholic liver disease Assessment: worsening bili (5) Anemia Assessment Renal failure- Acute On May 09, 2019 normal renal parameters Severe Anemia, Acute on chronic- Acute part from right groin attempted line insertion Severe HypoAlbuminemia, Cirrhosis, ALD, Ascites Sepsis- High lactic Acid Acute respiratory failure Previous gram negative bacteremia / Sepsis Plan extubated 05/25 Hydrate- slow K supplement as needed Antibiotics Monitor renal parameters avoid nephrotoxics transfuse as needed- per orders discussed with RN Subjective ROS Limited/Unobtainable: No Objective Objective Last 24 Hour Vital Signs Date Time Temp Pulse Resp B/P (MAP) Pulse Ox O2 Delivery O2 Flow Rate FiO2 05/27/19 08:00 98.1 93 18 116/68 (84) 97 93 05/27/19 08:00 Nasal Cannula 2.0 Nasal Cannula 2.0 05/27/19 04:00 97.9 90 18 111/64 (80) 90 05/27/19 03:36 Nasal Cannula 2.0 Nasal Cannula 2.0 05/27/19 00:00 98.4 93 18 104/63 (77) 93 05/27/19 00:00 Nasal Cannula 2.0 Nasal Cannula 2.0 05/26/19 20:00 98.7 95 18 111/70 (84) 95 05/26/19 20:00 Nasal Cannula 2.0 Nasal Cannula 2.0 05/26/19 16:00 Nasal Cannula 2.0 Nasal Cannula 2.0 05/26/19 16:00 98.4 98 20 123/72 (89) 95 Intake and Output 05/26/19 05/27/19 18:59 06:59 Intake Total 82.5 ml 690 ml Output Total 1000 ml Balance 82.5 ml -310 ml Free Water 150 ml IV Total 82.5 ml Tube Feeding 540 ml Output Urine Total 1000 ml # Bowel Movements 3 4 Laboratory Tests 05/27/19 04:00: White Blood Count 15.0H, Red Blood Count 2.67L, Hemoglobin 8.1L, Hematocrit 26.6L, Mean Corpuscular Volume 100H, Mean Corpuscular Hemoglobin 30.3, Mean Corpuscular Hemoglobin Concent 30.4L, Red Cell Distribution Width 28.4H, Platelet Count 83L, Mean Platelet Volume 6.5, Neutrophils (%) (Auto) , Lymphocytes (%) (Auto) , Monocytes (%) (Auto) , Eosinophils (%) (Auto) , Basophils (%) (Auto) , Differential Total Cells Counted 100, Neutrophils % ( Manual) 83H, Lymphocytes % (Manual) 10L, Monocytes % (Manual) 7, Eosinophils % ( Manual) 0, Basophils % (Manual) 0, Band Neutrophils 0, Platelet Estimate DecreasedL, Platelet Morphology Normal, Polychromasia 2+, Hypochromasia 1+, Anisocytosis 3+, Macrocytosis 1+, Sodium Level 143, Potassium Level 5.0, Chloride Level 112H, Carbon Dioxide Level 20L, Anion Gap 11, Blood Urea Nitrogen 53H, Creatinine 2.2H, Estimat Glomerular Filtration Rate 23.0, Glucose Level 143H, Calcium Level 8.4L Height (Feet): 5 Height (Inches): 0.00 Weight (Pounds): 194 General Appearance: no apparent distress Objective no change Jovany Byers MD May 27, 2019 12:11
--- NOTE | 2019-05-27 12:12 | Pulmonology Progress Note ---
Assessment/Plan Problems: (1) Acute respiratory failure (2) Acute metabolic encephalopathy (3) Acute on chronic alcoholic liver disease (4) Anasarca (5) Anemia Assessment/Plan tolerated extubation more awake, looks very yellow symptomatic treatment bilirubin is 6 I talked on 05/25 to Pts son in [place], who said that he only makes decisions about his mother. On 05/26, I got a call from somebody named Matteo who claims to be the other son. I tried twice the number but each time it went to voicemail. I did leave a voice message. I called Matteo last night again and left another woice mail. Our social work administrator called him as well. No return calls yet. Subjective ROS Limited/Unobtainable: No Constitutional: Reports: no symptoms HEENT: Repors: no symptoms Respiratory: Reports: no symptoms Allergies: Coded Allergies: No Known Allergies (Unverified , 01/31/19) Objective Last 24 Hour Vital Signs Date Time Temp Pulse Resp B/P (MAP) Pulse Ox O2 Delivery O2 Flow Rate FiO2 05/27/19 08:00 98.1 93 18 116/68 (84) 97 93 05/27/19 08:00 Nasal Cannula 2.0 Nasal Cannula 2.0 05/27/19 04:00 97.9 90 18 111/64 (80) 90 05/27/19 03:36 Nasal Cannula 2.0 Nasal Cannula 2.0 05/27/19 00:00 98.4 93 18 104/63 (77) 93 05/27/19 00:00 Nasal Cannula 2.0 Nasal Cannula 2.0 05/26/19 20:00 98.7 95 18 111/70 (84) 95 05/26/19 20:00 Nasal Cannula 2.0 Nasal Cannula 2.0 05/26/19 16:00 Nasal Cannula 2.0 Nasal Cannula 2.0 05/26/19 16:00 98.4 98 20 123/72 (89) 95 Intake and Output 05/26/19 05/27/19 18:59 06:59 Intake Total 82.5 ml 690 ml Output Total 1000 ml Balance 82.5 ml -310 ml Free Water 150 ml IV Total 82.5 ml Tube Feeding 540 ml Output Urine Total 1000 ml # Bowel Movements 3 4 General Appearance: WD/WN HEENT: normocephalic, anicteric Respiratory/Chest: chest wall non-tender, lungs clear Breasts: no masses Cardiovascular: normal peripheral pulses Abdomen: normal bowel sounds, no organomegaly Extremities: no clubbing Microbiology Date/Time Source Procedure Growth Status 05/24/19 15:00 Urine,Clean Catch Urine Culture - Preliminary Yeast Species Resulted 05/25/19 13:45 Abdominal Fluid Gram Stain - Final Resulted 05/25/19 13:45 Abdominal Fluid Body Fluid Culture - Preliminary NO GROWTH AFTER 24 HOURS Resulted Laboratory Tests 05/27/19 04:00: White Blood Count 15.0H, Red Blood Count 2.67L, Hemoglobin 8.1L, Hematocrit 26.6L, Mean Corpuscular Volume 100H, Mean Corpuscular Hemoglobin 30.3, Mean Corpuscular Hemoglobin Concent 30.4L, Red Cell Distribution Width 28.4H, Platelet Count 83L, Mean Platelet Volume 6.5, Neutrophils (%) (Auto) , Lymphocytes (%) (Auto) , Monocytes (%) (Auto) , Eosinophils (%) (Auto) , Basophils (%) (Auto) , Differential Total Cells Counted 100, Neutrophils % ( Manual) 83H, Lymphocytes % (Manual) 10L, Monocytes % (Manual) 7, Eosinophils % ( Manual) 0, Basophils % (Manual) 0, Band Neutrophils 0, Platelet Estimate DecreasedL, Platelet Morphology Normal, Polychromasia 2+, Hypochromasia 1+, Anisocytosis 3+, Macrocytosis 1+, Sodium Level 143, Potassium Level 5.0, Chloride Level 112H, Carbon Dioxide Level 20L, Anion Gap 11, Blood Urea Nitrogen 53H, Creatinine 2.2H, Estimat Glomerular Filtration Rate 23.0, Glucose Level 143H, Calcium Level 8.4L Current Medications Medications (Trade) Dose Ordered Sig/Almaz Route PRN Reason Start Time Stop Time Status Last Admin Dose Admin Betamethasone/ Clotrimazole (Lotrisone) 1 applic TWICE A DAY TOPIC 05/26/19 18:00 06/25/19 17:59 05/27/19 08:37 Chlorhexidine Gluconate (Shannon-Hex 2%) 1 applic DAILY@1999 TOPIC 05/26/19 20:00 06/17/19 19:59 05/26/19 20:32 Dextrose (Dextrose 50%) 25 ml Q30M PRN IV Hypoglycemia 05/26/19 06:45 06/16/19 21:44 Dextrose (Dextrose 50%) 50 ml Q30M PRN IV Hypoglycemia 05/26/19 06:45 06/16/19 21:44 Insulin Aspart (NovoLOG) Q6HR SUBQ 05/26/19 12:00 06/24/19 11:59 05/27/19 06:19 Lactulose (Cephulac) 10 gm THREE TIMES A DAY NG 05/26/19 09:00 06/17/19 10:29 05/27/19 08:36 Lansoprazole (Prevacid) 30 mg Q12HR NG 05/26/19 21:00 06/25/19 20:59 05/27/19 08:36 Linezolid (Zyvox) 600 mg EVERY 12 HOURS NG 05/26/19 13:00 05/31/19 12:59 05/27/19 08:37 Ondansetron HCl (Zofran) 4 mg Q6H PRN IVP Nausea & Vomiting 05/26/19 06:45 06/16/19 06:44 Piperacillin Sod/ Tazobactam Sod 3.375 gm/Sodium Chloride 110 ml @ 27.5 mls/hr EVERY 8 HOURS IVPB 05/26/19 14:00 05/31/19 13:59 05/27/19 05:44 Rifaximin (Xifaxan) 550 mg EVERY 12 HOURS NG 05/26/19 09:00 06/01/19 23:00 05/27/19 08:36 Shireen Khan MD May 27, 2019 12:12
[2019-05-27] MEDS ORDERED: Acetaminophen 650mg/20.3ml NG PRN (12:30)
--- NOTE | 2019-05-27 12:34 | Internal Med Progress Note ---
Subjective Physician Name Goldy Amador Attending Physician Goldy Amador MD Current Medications Medications (Trade) Dose Ordered Sig/Almaz Route PRN Reason Start Time Stop Time Status Last Admin Dose Admin Acetaminophen (Tylenol) 650 mg PRN PRN NG Mild Pain/Temp > 100.5 05/27/19 12:30 06/26/19 12:29 UNV Betamethasone/ Clotrimazole (Lotrisone) 1 applic TWICE A DAY TOPIC 05/26/19 18:00 06/25/19 17:59 05/27/19 08:37 Chlorhexidine Gluconate (Shannon-Hex 2%) 1 applic DAILY@1999 TOPIC 05/26/19 20:00 06/17/19 19:59 05/26/19 20:32 Dextrose (Dextrose 50%) 25 ml Q30M PRN IV Hypoglycemia 05/26/19 06:45 06/16/19 21:44 Dextrose (Dextrose 50%) 50 ml Q30M PRN IV Hypoglycemia 05/26/19 06:45 06/16/19 21:44 Insulin Aspart (NovoLOG) Q6HR SUBQ 05/26/19 12:00 06/24/19 11:59 05/27/19 12:10 Lactulose (Cephulac) 10 gm THREE TIMES A DAY NG 05/26/19 09:00 06/17/19 10:29 05/27/19 12:12 Lansoprazole (Prevacid) 30 mg Q12HR NG 05/26/19 21:00 06/25/19 20:59 05/27/19 08:36 Linezolid (Zyvox) 600 mg EVERY 12 HOURS NG 05/26/19 13:00 05/31/19 12:59 05/27/19 08:37 Morphine Sulfate (Morphine Sulfate) 2 mg Q4H PRN IVP For severe Pain 05/27/19 12:30 06/03/19 12:29 UNV Ondansetron HCl (Zofran) 4 mg Q6H PRN IVP Nausea & Vomiting 05/26/19 06:45 06/16/19 06:44 Piperacillin Sod/ Tazobactam Sod 3.375 gm/Sodium Chloride 110 ml @ 27.5 mls/hr EVERY 8 HOURS IVPB 05/26/19 14:00 05/31/19 13:59 05/27/19 05:44 Rifaximin (Xifaxan) 550 mg EVERY 12 HOURS NG 05/26/19 09:00 06/01/19 23:00 05/27/19 08:36 Allergies: Coded Allergies: No Known Allergies (Unverified , 01/31/19) Subjective awake, responsive, NAD, Mild Abdominal pain Objective Last Vital Signs Date Time Temp Pulse Resp B/P (MAP) Pulse Ox O2 Delivery O2 Flow Rate FiO2 05/27/19 08:00 98.1 93 18 116/68 (84) 97 93 05/27/19 08:00 Nasal Cannula 2.0 Nasal Cannula 2.0 05/26/19 06:30 28 Laboratory Tests Test 05/27/19 04:00 White Blood Count 15.0 K/UL (4.8-10.8) H Red Blood Count 2.67 M/UL (4.20-5.40) L Hemoglobin 8.1 G/DL (12.0-16.0) L Hematocrit 26.6 % (37.0-47.0) L Mean Corpuscular Volume 100 FL (80-99) H Mean Corpuscular Hemoglobin 30.3 PG (27.0-31.0) Mean Corpuscular Hemoglobin Concent 30.4 G/DL (32.0-36.0) L Red Cell Distribution Width 28.4 % (11.6-14.8) H Platelet Count 83 K/UL (150-450) L Mean Platelet Volume 6.5 FL (6.5-10.1) Neutrophils (%) (Auto) % (45.0-75.0) Lymphocytes (%) (Auto) % (20.0-45.0) Monocytes (%) (Auto) % (1.0-10.0) Eosinophils (%) (Auto) % (0.0-3.0) Basophils (%) (Auto) % (0.0-2.0) Differential Total Cells Counted 100 Neutrophils % (Manual) 83 % (45-75) H Lymphocytes % (Manual) 10 % (20-45) L Monocytes % (Manual) 7 % (1-10) Eosinophils % (Manual) 0 % (0-3) Basophils % (Manual) 0 % (0-2) Band Neutrophils 0 % (0-8) Platelet Estimate Decreased L Platelet Morphology Normal Polychromasia 2+ Hypochromasia 1+ Anisocytosis 3+ Macrocytosis 1+ Sodium Level 143 MMOL/L (136-145) Potassium Level 5.0 MMOL/L (3.5-5.1) Chloride Level 112 MMOL/L (98-107) H Carbon Dioxide Level 20 MMOL/L (21-32) L Anion Gap 11 mmol/L (5-15) Blood Urea Nitrogen 53 mg/dL (7-18) H Creatinine 2.2 MG/DL (0.55-1.30) H Estimat Glomerular Filtration Rate 23.0 mL/min (>60) Glucose Level 143 MG/DL (74-106) H Calcium Level 8.4 MG/DL (8.5-10.1) L Microbiology Date/Time Source Procedure Growth Status 05/24/19 15:00 Urine,Clean Catch Urine Culture - Preliminary Yeast Species Resulted 05/25/19 13:45 Abdominal Fluid Gram Stain - Final Resulted 05/25/19 13:45 Abdominal Fluid Body Fluid Culture - Preliminary NO GROWTH AFTER 24 HOURS Resulted Intake and Output 05/26/19 05/27/19 18:59 06:59 Intake Total 82.5 ml 690 ml Output Total 1000 ml Balance 82.5 ml -310 ml Free Water 150 ml IV Total 82.5 ml Tube Feeding 540 ml Output Urine Total 1000 ml # Bowel Movements 3 4 Objective General: awake, alert, responsive, HEENT: NCAT, sclera icteric, PERRL, EOMI, NG tube. Neck: Supple, no significant jugular venous distention, Lungs: decreased air at the bases, no Wheeze or Rales. Heart: Regular rate and rhythm, normal S1/S2, no murmurs Abdomen: soft, generalized tenderness, mild distended. Positive fluid shift, normoactive bowel sounds, Obesity. : Draper catheter presented. Extremities: No Cyanosis , clubbing or edema. Left upper extremity PICC line. Neuro: Able to move all extremities, CN 2-12 intact. Skin: warm, no rash, . Assessment/Plan Assessment/Plan (1) Acute hypoxemic respiratory failure (2) Acute metabolic encephalopathy (3) Sepsis (4) Anasarca (5) Hepatic encephalopathy (6) Coagulopathy (7) Thrombocytopenia (8) Liver cirrhosis (9) ZI / ATN (10) Hypertension. Plan: Follow-up with the laboratory and cultures. Antibiotics: Zyvox and Zosyn DVT prophylaxis with SCD. CODE STATUS is full code. Tolerated tube feeding @ 60 cc/hr Goldy Amador MD May 27, 2019 12:34
--- NOTE | 2019-05-27 12:52 | NUR ---
SWALLOW STATUS: PATIENT IS ALERT BUT NOT READY FOR MODIFIED BARIUM SWALLOW STUDY NOR PO TRIALS. PATIENT WAVING HER FINGER NOW. CONTINUE WITH ORAL CARE. NO NEED FOR ORAL SUCTION TODAY. PLAN: COMPLETED MOD BARIUM SWALLOW STUDY ON THURSDAY IF READY CONTINUE WITH NONORAL NGT FEEDINGS AND ORAL CARE FOR NOW. D/W CHAVA JACKSON
--- NOTE | 2019-05-27 14:42 | Infectious Diseases Prog Note ---
Assessment/Plan Assessment/Plan Assessment/Plan 58 yo female with PMHx of Liver cirrhosis with recurrent ascites, HTN, ETOH abuse, DM and Hepatic encephalopathy who presented to the ED on 05/17/19 with AMS. Lt hand tender and mild erythema Sepsis, sp Probable UTI UCx : lizzy Urine Cx 05/17/19 - K. pneumo Probable VAP Scx: yeast 05/25 CXR : Possibly new or increased bilateral infrahilar opacities, could represent small patchy infiltrates. Ascites no evid of SBP \ 05/25 Sp US guided paracentesis, yielding 4.1 liters of fluid Cell : Perit F cell count: 65 05/19 sp paracentesis ( no Cx or Cell count sent) AMS, sp Hepatic encephalopathy ? vs Urosepsis Leukocytosis increasing No fever Hx Gram negative bacteremia -05/03 BCx 10/04 ACHROMOBACTER XYLOSOXIDANS (S Zosyn, Ceftazidime, bactrim; R cefepime; I imipenem, Levaquin); 05/05 Bcx NTD Recurrent ascites -05/05 SP paracentesis: 3.5 L removed wbc 170 (N 49%); cx Neg - -03/11/19 sp paracentesis:fluid wbc 97 (N 34%) 05/25 Sp Extubation HTN DM Liver Cirrhosis EtOH abuse Plan: Cont Zosyn # 4, add Diflucan # 1 and DC Zyvox # 2 -05/24 Sp Cefazolin # 3 - 05/22/19 SP Cefepime #5 Flagyl #5 and Vancomycin #5 - Perit F Cx -Monitor CBC/CMP Subjective Allergies: Coded Allergies: No Known Allergies (Unverified , 01/31/19) Subjective afebrile Objective Vital Signs Last 24 Hour Vital Signs Date Time Temp Pulse Resp B/P (MAP) Pulse Ox O2 Delivery O2 Flow Rate FiO2 05/27/19 12:00 Nasal Cannula 2.0 Nasal Cannula 2.0 05/27/19 12:00 98.1 89 18 121/69 (86) 96 89 05/27/19 08:00 98.1 93 18 116/68 (84) 97 93 05/27/19 08:00 Nasal Cannula 2.0 Nasal Cannula 2.0 05/27/19 04:00 97.9 90 18 111/64 (80) 90 05/27/19 03:36 Nasal Cannula 2.0 Nasal Cannula 2.0 05/27/19 00:00 98.4 93 18 104/63 (77) 93 05/27/19 00:00 Nasal Cannula 2.0 Nasal Cannula 2.0 05/26/19 20:00 98.7 95 18 111/70 (84) 95 05/26/19 20:00 Nasal Cannula 2.0 Nasal Cannula 2.0 05/26/19 16:00 Nasal Cannula 2.0 Nasal Cannula 2.0 05/26/19 16:00 98.4 98 20 123/72 (89) 95 Height (Feet): 5 Height (Inches): 0.00 Weight (Pounds): 194 Respiratory/Chest: lungs clear Cardiovascular: regular rhythm Abdomen: no organomegaly Microbiology Date/Time Source Procedure Growth Status 05/24/19 15:00 Urine,Clean Catch Urine Culture - Preliminary Yeast Species Resulted 05/25/19 13:45 Abdominal Fluid Gram Stain - Final Resulted 05/25/19 13:45 Abdominal Fluid Body Fluid Culture - Preliminary NO GROWTH AFTER 24 HOURS Resulted Laboratory Tests Test 05/27/19 04:00 White Blood Count 15.0 K/UL (4.8-10.8) H Red Blood Count 2.67 M/UL (4.20-5.40) L Hemoglobin 8.1 G/DL (12.0-16.0) L Hematocrit 26.6 % (37.0-47.0) L Mean Corpuscular Volume 100 FL (80-99) H Mean Corpuscular Hemoglobin 30.3 PG (27.0-31.0) Mean Corpuscular Hemoglobin Concent 30.4 G/DL (32.0-36.0) L Red Cell Distribution Width 28.4 % (11.6-14.8) H Platelet Count 83 K/UL (150-450) L Mean Platelet Volume 6.5 FL (6.5-10.1) Neutrophils (%) (Auto) % (45.0-75.0) Lymphocytes (%) (Auto) % (20.0-45.0) Monocytes (%) (Auto) % (1.0-10.0) Eosinophils (%) (Auto) % (0.0-3.0) Basophils (%) (Auto) % (0.0-2.0) Differential Total Cells Counted 100 Neutrophils % (Manual) 83 % (45-75) H Lymphocytes % (Manual) 10 % (20-45) L Monocytes % (Manual) 7 % (1-10) Eosinophils % (Manual) 0 % (0-3) Basophils % (Manual) 0 % (0-2) Band Neutrophils 0 % (0-8) Platelet Estimate Decreased L Platelet Morphology Normal Polychromasia 2+ Hypochromasia 1+ Anisocytosis 3+ Macrocytosis 1+ Sodium Level 143 MMOL/L (136-145) Potassium Level 5.0 MMOL/L (3.5-5.1) Chloride Level 112 MMOL/L (98-107) H Carbon Dioxide Level 20 MMOL/L (21-32) L Anion Gap 11 mmol/L (5-15) Blood Urea Nitrogen 53 mg/dL (7-18) H Creatinine 2.2 MG/DL (0.55-1.30) H Estimat Glomerular Filtration Rate 23.0 mL/min (>60) Glucose Level 143 MG/DL (74-106) H Calcium Level 8.4 MG/DL (8.5-10.1) L Current Medications Medications (Trade) Dose Ordered Sig/Almaz Route PRN Reason Start Time Stop Time Status Last Admin Dose Admin Acetaminophen (Tylenol) 650 mg Q6H PRN NG Mild Pain/Temp > 100.5 05/27/19 12:30 06/26/19 12:29 Betamethasone/ Clotrimazole (Lotrisone) 1 applic TWICE A DAY TOPIC 05/26/19 18:00 06/25/19 17:59 05/27/19 08:37 Chlorhexidine Gluconate (Shannon-Hex 2%) 1 applic DAILY@1999 TOPIC 05/26/19 20:00 06/17/19 19:59 05/26/19 20:32 Dextrose (Dextrose 50%) 25 ml Q30M PRN IV Hypoglycemia 05/26/19 06:45 06/16/19 21:44 Dextrose (Dextrose 50%) 50 ml Q30M PRN IV Hypoglycemia 05/26/19 06:45 06/16/19 21:44 Insulin Aspart (NovoLOG) Q6HR SUBQ 05/26/19 12:00 06/24/19 11:59 05/27/19 12:10 Lactulose (Cephulac) 10 gm THREE TIMES A DAY NG 05/26/19 09:00 06/17/19 10:29 05/27/19 12:12 Lansoprazole (Prevacid) 30 mg Q12HR NG 05/26/19 21:00 06/25/19 20:59 05/27/19 08:36 Linezolid (Zyvox) 600 mg EVERY 12 HOURS NG 05/26/19 13:00 05/31/19 12:59 05/27/19 08:37 Morphine Sulfate (Morphine Sulfate) 2 mg Q4H PRN IVP Severe Pain (Pain Scale 7-10) 05/27/19 12:30 06/03/19 12:29 Ondansetron HCl (Zofran) 4 mg Q6H PRN IVP Nausea & Vomiting 05/26/19 06:45 06/16/19 06:44 Piperacillin Sod/ Tazobactam Sod 3.375 gm/Sodium Chloride 110 ml @ 27.5 mls/hr EVERY 8 HOURS IVPB 05/26/19 14:00 05/31/19 13:59 05/27/19 14:34 Rifaximin (Xifaxan) 550 mg EVERY 12 HOURS NG 05/26/19 09:00 06/01/19 23:00 05/27/19 08:36 Krzysztof Hu MD May 27, 2019 14:42
[2019-05-27 16:00] VITALS: BP 127/74
--- NOTE | 2019-05-27 16:02 | Surgery Progress Note ---
Surgery Progress Note Subjective Procedure Performed sepsis Additional Comments ng tube inserted for feeds as not safe to eat swallow eval otherwise comfortable Objective Last 24 Hour Vital Signs Date Time Temp Pulse Resp B/P (MAP) Pulse Ox O2 Delivery O2 Flow Rate FiO2 05/27/19 12:00 Nasal Cannula 2.0 Nasal Cannula 2.0 05/27/19 12:00 98.1 89 18 121/69 (86) 96 89 05/27/19 08:00 98.1 93 18 116/68 (84) 97 93 05/27/19 08:00 Nasal Cannula 2.0 Nasal Cannula 2.0 05/27/19 04:00 97.9 90 18 111/64 (80) 90 05/27/19 03:36 Nasal Cannula 2.0 Nasal Cannula 2.0 05/27/19 00:00 98.4 93 18 104/63 (77) 93 05/27/19 00:00 Nasal Cannula 2.0 Nasal Cannula 2.0 05/26/19 20:00 98.7 95 18 111/70 (84) 95 05/26/19 20:00 Nasal Cannula 2.0 Nasal Cannula 2.0 I&O Intake and Output 05/26/19 05/27/19 19:00 07:00 Intake Total 292.5 ml 540 ml Output Total 1000 ml Balance 292.5 ml -460 ml Free Water 150 ml IV Total 82.5 ml Tube Feeding 60 ml 540 ml Output Urine Total 1000 ml # Bowel Movements 3 4 Dressing: other Wound: other Drains: other Cardiovascular: RSR Respiratory: clear Abdomen: soft, non-tender, present bowel sounds, non-distended Extremities: no cyanosis Laboratory Tests Test 05/27/19 04:00 White Blood Count 15.0 K/UL (4.8-10.8) H Red Blood Count 2.67 M/UL (4.20-5.40) L Hemoglobin 8.1 G/DL (12.0-16.0) L Hematocrit 26.6 % (37.0-47.0) L Mean Corpuscular Volume 100 FL (80-99) H Mean Corpuscular Hemoglobin 30.3 PG (27.0-31.0) Mean Corpuscular Hemoglobin Concent 30.4 G/DL (32.0-36.0) L Red Cell Distribution Width 28.4 % (11.6-14.8) H Platelet Count 83 K/UL (150-450) L Mean Platelet Volume 6.5 FL (6.5-10.1) Neutrophils (%) (Auto) % (45.0-75.0) Lymphocytes (%) (Auto) % (20.0-45.0) Monocytes (%) (Auto) % (1.0-10.0) Eosinophils (%) (Auto) % (0.0-3.0) Basophils (%) (Auto) % (0.0-2.0) Differential Total Cells Counted 100 Neutrophils % (Manual) 83 % (45-75) H Lymphocytes % (Manual) 10 % (20-45) L Monocytes % (Manual) 7 % (1-10) Eosinophils % (Manual) 0 % (0-3) Basophils % (Manual) 0 % (0-2) Band Neutrophils 0 % (0-8) Platelet Estimate Decreased L Platelet Morphology Normal Polychromasia 2+ Hypochromasia 1+ Anisocytosis 3+ Macrocytosis 1+ Sodium Level 143 MMOL/L (136-145) Potassium Level 5.0 MMOL/L (3.5-5.1) Chloride Level 112 MMOL/L (98-107) H Carbon Dioxide Level 20 MMOL/L (21-32) L Anion Gap 11 mmol/L (5-15) Blood Urea Nitrogen 53 mg/dL (7-18) H Creatinine 2.2 MG/DL (0.55-1.30) H Estimat Glomerular Filtration Rate 23.0 mL/min (>60) Glucose Level 143 MG/DL (74-106) H Calcium Level 8.4 MG/DL (8.5-10.1) L Plan Problems: (1) Sacral decubitus ulcer Assessment & Plan: Pt presented on admission with icteric sclerae and skin. Moisture intertrigo Madhu/left abd folds.(1.5cm long). Moisture intertrigo R groin(8.5cm) slit noted with small amt bleeding. Mons pubis,labia majora and medial aspects of both upper thigh erythematous . Partial thickness wound noted to L thoracic. Base of wound is moist and viable. Edges flat and adherent to base of wound.No exudate noted. (L) 0.6cm x (W)0.8cm. Non-blanchable erythema sacrum,R and L buttocks with scattered shearing .Full thickness pressure injury noted to sacrococcygeal area. Base of wound is steve with small amt slough noted in center.(L) 0.7cm x (W)0.3cm. Area around wound is erythematous non-blanchable with shearing . Full thickness pressure injury R buttocks . Base of wound is moist, with Slough in center.Surrounding area erythematous and denuded. Evolving serous blister L heel.Base of wound is fluctuant with delineated,red margins.(L)3.5cm x (W)5.5cm. Periwound without erythema or fluctuance. R heel firm and blanchable. Tx.Plan: Apply Triad Paste to Sacrum and R buttocks. Cover wounds with Optifoam drsg. Change every 3 days and PRN. Apply Triad Paste to abd folds, R groin,Mons pubis, medial aspects of both upper thighs with each perineal care. Apply Optifoam drsg L thoracic wound. Cover with Optifoam drsg. Change every 3 days and prn. Apply Cavilon Skin Barrier to both heels. Cover each heel with Optifoam drsg. Change every 7 days and prn. APM/CHRISSY Mattress. Reposition at least every 2hours or as tolerated. Off-load heels with pillow (2) Liver cirrhosis Assessment & Plan: DAILY ESTIMATED NEEDS: Needs based on Cirrhosis, Critical care, sepsis/ 58kg adj 22-30 kcals/kg [id number] total kcals 1.2-2 g protein/kg 70-116 g total protein 20-25 mL/kg [id number] total fluid mLs NUTRITION DIAGNOSIS: * Swallowing difficulty R/T respiratory status as evidenced by pt orally intubated, NPO at this time * Altered nutrition related lab values R/T cirrhosis, sepsis, clinical condition as evidenced by elev T bili (5.5), elev NH3 (152), elev LA (6.7), elev creat (2.4). CURRENT TF:NPO PO DIET RECOMMENDATIONS: RADIOLOGIC ELECTRONIC SPECIALIST eval post extubation -> LOW NA ENTERAL NUTRITION RECOMMENDATIONS: Glucerna 1.2 @ 55ml/hr x 24 hrs to provide 1320ml, 1584kcal, 79g prot, 1063ml free water * Rec Glucerna 1.2 to maintain good BG control: h/o DM * As medically appropriate, initiate Glucerna 1.2 @ 25ml/hr x 6 hrs * Advance 10ml q 4-6 hrs as tolerated to goal rate. * HOB over 30 degrees/ water flush per MD. ADDITIONAL RECOMMENDATIONS: * Calibrated bedscale wt for accurate CBW * W/ TF, monitor need for NISS: h/o DM * F/up w/ wound eval: add Miquel 1pkt BID + VIt C 250mg QD * Monitor lytes, replete as needed . (3) Acute on chronic alcoholic liver disease (4) Sepsis Assessment & Plan: Restore insufficiency, leukocytosis, anemia, lactic acidosis , liver insufficiency, sepsis Right line removed and pressure held until hemostasis obtained. Currently no significant hematoma or post injury comp occasion identified. Site clean dry. Left line in place and stable. Will recommend PICC line so femoral line can be removed and more definitive long -term access can be obtained given patient's current medical condition and likelihood for prolonged hospitalization stay US noted and okay paracentesis PICC Continue IV antibiotics We will monitor and follow with recommendations Ultrasound ordered Efrain Whitaker May 27, 2019 16:02
--- NOTE | 2019-05-27 19:17 | NUR ---
HAND-OFF: Report given to CHAVA Chapman.
--- NOTE | 2019-05-27 19:56 | NUR ---
NURSE NOTES: Patient in bed, awake, alert x 2. Abdomen is soft and non distended. No s/s of pain or discomfort noted. Skin is warm and dry to touch. Noted with multiple dressing. Bed in low and locked position. Provided safe environment. IV site noted. Iv fluid is infusing as ordered. GT placed, feeding is infusing. Call light is at bedside. Will continue plan of care.
[2019-05-27 20:00] VITALS: BP 114/62
[2019-05-27] MEDS: Dyna-Hex 2% Top Sol 2oz TOPIC SCH (20:31)
[2019-05-28] VITALS: BP 118/76
[2019-05-28 04:00] VITALS: BP 156/77
[2019-05-28] MEDS: Piperacillin/Tazobactam 3.375 GM in NS 110 ML IVPB SCH ×3 (05:48→22:34)
[2019-05-28] MEDS: NovoLOG Insulin Flexpen SUBQ SCH ×4 (05:51→23:56)
[2019-05-28 06:37] LABS: BASOPHILS % (AUTO) 1.3 % (0.0-2.0); EOSINOPHILS % (AUTO) 1.5 % (0.0-3.0); HEMATOCRIT 28.8 % (37.0-47.0); HEMOGLOBIN 8.5 G/DL (12.0-16.0); LYMPHOCYTES % (AUTO) 8.4 % (20.0-45.0); MEAN CORPUSCULAR VOLUME 103 FL (80-99); MONOCYTES % (AUTO) 8.2 % (1.0-10.0); NEUTROPHILS % (AUTO) 80.6 % (45.0-75.0); PLATELET COUNT 105 K/UL (150-450); RED BLOOD COUNT 2.79 M/UL (4.20-5.40); RED CELL DISTRIBUTION WIDTH 29.5 % (11.6-14.8); WHITE BLOOD COUNT 14.6 K/UL (4.8-10.8)
[2019-05-28 07:20] LABS: ANION GAP 13 mmol/L (5-15); BLOOD UREA NITROGEN 59 mg/dL (7-18); CALCIUM 8.7 MG/DL (8.5-10.1); CARBON DIOXIDE 18 MMOL/L (21-32); CHLORIDE 115 MMOL/L (98-107); CREATININE 2.3 MG/DL (0.55-1.30); POTASSIUM 4.8 MMOL/L (3.5-5.1); SODIUM 146 MMOL/L (136-145)
--- NOTE | 2019-05-28 07:20 | NUR ---
HAND-OFF: Report given to CHAVA Vyas.
--- NOTE | 2019-05-28 07:33 | Pulmonology Progress Note ---
Assessment/Plan Assessment/Plan ASSESSMENT Sepsis Acute hypoxemic respiratory failure requiring intubation, status post extubation 05/25 Acute on chronic alcoholic liver disease ATN/ZI Acute metabolic encephalopathy Hepatic encephalopathy Liver cirrhosis Portal hypertension Recurrent ascites, status post paracentesis UTI with Arlin , Klebsiella Probably VAP Hypertension Diabetes EtOH abuse Anemia Thrombocytopenia Coagulopathy Electrolyte imbalance Sacral decubitus ulcer, present on admission PLAN OF CARE extubated 05/25 [facility] floor O2 HHN prn follow-up with CXR venous duplex negative abx as per ID recs slow hydration, monitor renal parameters, lytes, correct electrolytes as needed Lactulose , Xifaxan, ammonia trending down s/p paracentesis 05/19/ and 05/25; yielding correspondingly 4.8 and 4.1 L of fluid, no evidence of SBP monitor H&H with goal to keep Hgb above 7, s/p 1 unit PRBC monitor platelet count and INR , likely related to liver cirrhosis all imaging noted wound care as per surgeon recommendation BS management with sliding scale of insulin GI prophylaxis not passed swallow eval NG tube inserted for nutrition and medications strict aspiration precaution supportive care poor prognosis DNR/DNI status case discussed and evaluated by supervising physician Subjective Allergies: Coded Allergies: No Known Allergies (Unverified , 01/31/19) Subjective no chest pain, occ SOB pulse ox stable on O2 2L via NC c/o abd pain, no n/v/diarrhea Objective Last 24 Hour Vital Signs Date Time Temp Pulse Resp B/P (MAP) Pulse Ox O2 Delivery O2 Flow Rate FiO2 05/28/19 04:00 99.0 80 19 156/77 (103) 97 05/28/19 00:00 97.8 90 21 118/76 (90) 95 05/27/19 21:00 Nasal Cannula 2.0 05/27/19 20:00 97.8 93 20 114/62 (79) 96 05/27/19 16:00 98.4 93 18 127/74 (91) 97 93 05/27/19 16:00 Nasal Cannula 2.0 Nasal Cannula 2.0 05/27/19 12:00 Nasal Cannula 2.0 Nasal Cannula 2.0 05/27/19 12:00 98.1 89 18 121/69 (86) 96 89 05/27/19 08:00 98.1 93 18 116/68 (84) 97 93 05/27/19 08:00 Nasal Cannula 2.0 Nasal Cannula 2.0 Intake and Output 05/27/19 05/28/19 19:00 07:00 Intake Total 920 ml 4357.5 ml Output Total 4790 ml Balance 920 ml -432.5 ml Intake Oral 120 ml Free Water 200 ml 350 ml IV Total 3137.5 ml Tube Feeding 720 ml 720 ml Other 30 ml Output Urine Total 150 ml Stool Total 100 ml Emesis 40 ml Other 4500 ml # Voids 1 # Bowel Movements 2 1 General Appearance: no acute distress, other - awake, alert, obese ill looking female HEENT: normocephalic, atraumatic Respiratory/Chest: chest wall non-tender, no accessory muscle use, decreased breath sounds - at bases Cardiovascular: normal rate Abdomen: normal bowel sounds - abdomen, soft, mikld diffused tenderness, no rebound, no guarding, , distended Extremities: other - +1 edema BLE Neurologic/Psychiatric: no motor/sensory deficits, alert, responsive Musculoskeletal: normal muscle bulk Microbiology Date/Time Source Procedure Growth Status 05/25/19 13:45 Abdominal Fluid Gram Stain - Final Resulted 05/25/19 13:45 Abdominal Fluid Body Fluid Culture - Preliminary NO GROWTH AFTER 48 HOURS Resulted Laboratory Tests 05/28/19 05:15: White Blood Count 14.6H, Red Blood Count 2.79L, Hemoglobin 8.5L, Hematocrit 28.8L, Mean Corpuscular Volume 103H, Mean Corpuscular Hemoglobin 30.5, Mean Corpuscular Hemoglobin Concent 29.5L, Red Cell Distribution Width 29.5H, Platelet Count 105L, Mean Platelet Volume 6.8, Neutrophils (%) (Auto) 80.6H, Lymphocytes (%) (Auto) 8.4L, Monocytes (%) (Auto) 8.2, Eosinophils (%) (Auto) 1.5, Basophils (%) (Auto) 1.3, Sodium Level 146H, Potassium Level 4.8, Chloride Level 115H, Carbon Dioxide Level 18L, Anion Gap 13, Blood Urea Nitrogen 59H, Creatinine 2.3H, Estimat Glomerular Filtration Rate 21.9, Glucose Level 169H, Calcium Level 8.7, Phosphorus Level 5.0H, Magnesium Level 2.2 Current Medications Medications (Trade) Dose Ordered Sig/Almaz Route PRN Reason Start Time Stop Time Status Last Admin Dose Admin Acetaminophen (Tylenol) 650 mg Q6H PRN NG Mild Pain/Temp > 100.5 05/27/19 12:30 06/26/19 12:29 Betamethasone/ Clotrimazole (Lotrisone) 1 applic TWICE A DAY TOPIC 05/26/19 18:00 06/25/19 17:59 05/27/19 17:09 Chlorhexidine Gluconate (Shannon-Hex 2%) 1 applic DAILY@2000 TOPIC 05/26/19 20:00 06/17/19 19:59 05/27/19 20:31 Dextrose (Dextrose 50%) 25 ml Q30M PRN IV Hypoglycemia 05/26/19 06:45 06/16/19 21:44 Dextrose (Dextrose 50%) 50 ml Q30M PRN IV Hypoglycemia 05/26/19 06:45 06/16/19 21:44 Fluconazole/ Sodium Chloride 200 ml @ 100 mls/hr Q24H IV 05/27/19 17:00 06/03/19 16:59 05/27/19 17:09 Insulin Aspart (NovoLOG) Q6HR SUBQ 05/26/19 12:00 06/24/19 11:59 05/28/19 05:51 Lactulose (Cephulac) 10 gm THREE TIMES A DAY NG 05/26/19 09:00 06/17/19 10:29 05/27/19 17:09 Lansoprazole (Prevacid) 30 mg Q12HR NG 05/26/19 21:00 06/25/19 20:59 05/27/19 20:31 Morphine Sulfate (Morphine Sulfate) 2 mg Q4H PRN IVP Severe Pain (Pain Scale 7-10) 05/27/19 12:30 06/03/19 12:29 Ondansetron HCl (Zofran) 4 mg Q6H PRN IVP Nausea & Vomiting 05/26/19 06:45 06/16/19 06:44 Piperacillin Sod/ Tazobactam Sod 3.375 gm/Sodium Chloride 110 ml @ 27.5 mls/hr EVERY 8 HOURS IVPB 05/26/19 14:00 05/31/19 13:59 05/28/19 05:48 Rifaximin (Xifaxan) 550 mg EVERY 12 HOURS NG 05/26/19 09:00 06/01/19 23:00 05/27/19 20:31 Corinna Guzman NP May 28, 2019 07:33
[2019-05-28 08:00] VITALS: BP 155/81
--- NOTE | 2019-05-28 08:02 | NUR ---
NURSE NOTES: Patient awake, alert x1, Kazakh speaking; on nasal cannula; PICC line on Left-Upper arm fluid running, dressing is dry and intact; NG tube running Glucerna 1.2 running 60cc, no residual; bilateral wistaria in place; side rails up x2, head of the bed elevated, breaks engaged; SCD on; will keep monitoring.
[2019-05-28] MEDS: Lactulose 20gm/30ml UDC NG SCH ×3 (08:58→16:57)
[2019-05-28] MEDS: Lotrisone Cream 15gm TOPIC SCH ×2 (08:58→16:58)
--- NOTE | 2019-05-28 09:41 | Nephrology Progress Note ---
Assessment/Plan Problem List: (1) ATN (acute tubular necrosis) (2) Sepsis (3) Acute respiratory failure (4) Acute on chronic alcoholic liver disease Assessment: worsening bili (5) Anemia Assessment Renal failure- Acute On May 09, 2019 normal renal parameters Severe Anemia, Acute on chronic- Acute part from right groin attempted line insertion Severe HypoAlbuminemia, Cirrhosis, ALD, Ascites Sepsis- High lactic Acid Acute respiratory failure Previous gram negative bacteremia / Sepsis Plan extubated 05/25 Hydrate- slow K supplement as needed Antibiotics Monitor renal parameters avoid nephrotoxics transfuse as needed- per orders discussed with RN Subjective ROS Limited/Unobtainable: No Constitutional: Reports: malaise, weakness Objective Objective Last 24 Hour Vital Signs Date Time Temp Pulse Resp B/P (MAP) Pulse Ox O2 Delivery O2 Flow Rate FiO2 05/28/19 08:00 97.1 87 17 155/81 (105) 96 05/28/19 04:00 99.0 80 19 156/77 (103) 97 05/28/19 00:00 97.8 90 21 118/76 (90) 95 05/27/19 21:00 Nasal Cannula 2.0 05/27/19 20:00 97.8 93 20 114/62 (79) 96 05/27/19 16:00 98.4 93 18 127/74 (91) 97 93 05/27/19 16:00 Nasal Cannula 2.0 Nasal Cannula 2.0 05/27/19 12:00 Nasal Cannula 2.0 Nasal Cannula 2.0 05/27/19 12:00 98.1 89 18 121/69 (86) 96 89 Intake and Output 05/27/19 05/28/19 18:59 06:59 Intake Total 870 ml 4467.5 ml Output Total 4790 ml Balance 870 ml -322.5 ml Intake Oral 120 ml Free Water 150 ml 400 ml IV Total 3137.5 ml Tube Feeding 720 ml 780 ml Other 30 ml Output Urine Total 150 ml Stool Total 100 ml Emesis 40 ml Other 4500 ml # Voids 1 # Bowel Movements 2 1 Laboratory Tests 05/28/19 05:15: White Blood Count 14.6H, Red Blood Count 2.79L, Hemoglobin 8.5L, Hematocrit 28.8L, Mean Corpuscular Volume 103H, Mean Corpuscular Hemoglobin 30.5, Mean Corpuscular Hemoglobin Concent 29.5L, Red Cell Distribution Width 29.5H, Platelet Count 105L, Mean Platelet Volume 6.8, Neutrophils (%) (Auto) 80.6H, Lymphocytes (%) (Auto) 8.4L, Monocytes (%) (Auto) 8.2, Eosinophils (%) (Auto) 1.5, Basophils (%) (Auto) 1.3, Sodium Level 146H, Potassium Level 4.8, Chloride Level 115H, Carbon Dioxide Level 18L, Anion Gap 13, Blood Urea Nitrogen 59H, Creatinine 2.3H, Estimat Glomerular Filtration Rate 21.9, Glucose Level 169H, Calcium Level 8.7, Phosphorus Level 5.0H, Magnesium Level 2.2 Height (Feet): 5 Height (Inches): 0.00 Weight (Pounds): 193 General Appearance: no apparent distress Respiratory/Chest: decreased breath sounds Abdomen: distended Objective no change Jovany Byers MD May 28, 2019 09:41
[2019-05-28 12:00] VITALS: BP 128/78
--- NOTE | 2019-05-28 12:36 | Surgery Progress Note ---
Surgery Progress Note Subjective Procedure Performed sepsis Symptoms: other Objective Last 24 Hour Vital Signs Date Time Temp Pulse Resp B/P (MAP) Pulse Ox O2 Delivery O2 Flow Rate FiO2 05/28/19 12:00 98.2 90 18 128/78 (95) 95 05/28/19 09:00 Nasal Cannula 2.0 05/28/19 08:00 97.1 87 17 155/81 (105) 96 05/28/19 04:00 99.0 80 19 156/77 (103) 97 05/28/19 00:00 97.8 90 21 118/76 (90) 95 05/27/19 21:00 Nasal Cannula 2.0 05/27/19 20:00 97.8 93 20 114/62 (79) 96 05/27/19 16:00 98.4 93 18 127/74 (91) 97 93 05/27/19 16:00 Nasal Cannula 2.0 Nasal Cannula 2.0 I&O Intake and Output 05/27/19 05/28/19 18:59 06:59 Intake Total 870 ml 4467.5 ml Output Total 4790 ml Balance 870 ml -322.5 ml Intake Oral 120 ml Free Water 150 ml 400 ml IV Total 3137.5 ml Tube Feeding 720 ml 780 ml Other 30 ml Output Urine Total 150 ml Stool Total 100 ml Emesis 40 ml Other 4500 ml # Voids 1 # Bowel Movements 2 1 Cardiovascular: RSR Respiratory: decreased breath sounds Abdomen: soft, distended, decreased bowel sounds Extremities: no cyanosis Laboratory Tests Test 05/28/19 05:15 White Blood Count 14.6 K/UL (4.8-10.8) H Red Blood Count 2.79 M/UL (4.20-5.40) L Hemoglobin 8.5 G/DL (12.0-16.0) L Hematocrit 28.8 % (37.0-47.0) L Mean Corpuscular Volume 103 FL (80-99) H Mean Corpuscular Hemoglobin 30.5 PG (27.0-31.0) Mean Corpuscular Hemoglobin Concent 29.5 G/DL (32.0-36.0) L Red Cell Distribution Width 29.5 % (11.6-14.8) H Platelet Count 105 K/UL (150-450) L Mean Platelet Volume 6.8 FL (6.5-10.1) Neutrophils (%) (Auto) 80.6 % (45.0-75.0) H Lymphocytes (%) (Auto) 8.4 % (20.0-45.0) L Monocytes (%) (Auto) 8.2 % (1.0-10.0) Eosinophils (%) (Auto) 1.5 % (0.0-3.0) Basophils (%) (Auto) 1.3 % (0.0-2.0) Sodium Level 146 MMOL/L (136-145) H Potassium Level 4.8 MMOL/L (3.5-5.1) Chloride Level 115 MMOL/L (98-107) H Carbon Dioxide Level 18 MMOL/L (21-32) L Anion Gap 13 mmol/L (5-15) Blood Urea Nitrogen 59 mg/dL (7-18) H Creatinine 2.3 MG/DL (0.55-1.30) H Estimat Glomerular Filtration Rate 21.9 mL/min (>60) Glucose Level 169 MG/DL (74-106) H Calcium Level 8.7 MG/DL (8.5-10.1) Phosphorus Level 5.0 MG/DL (2.5-4.9) H Magnesium Level 2.2 MG/DL (1.8-2.4) Plan Problems: (1) Sacral decubitus ulcer Assessment & Plan: Pt presented on admission with icteric sclerae and skin. Moisture intertrigo Madhu/left abd folds.(1.5cm long). Moisture intertrigo R groin(8.5cm) slit noted with small amt bleeding. Mons pubis,labia majora and medial aspects of both upper thigh erythematous . Partial thickness wound noted to L thoracic. Base of wound is moist and viable. Edges flat and adherent to base of wound.No exudate noted. (L) 0.6cm x (W)0.8cm. Non-blanchable erythema sacrum,R and L buttocks with scattered shearing .Full thickness pressure injury noted to sacrococcygeal area. Base of wound is steve with small amt slough noted in center.(L) 0.7cm x (W)0.3cm. Area around wound is erythematous non-blanchable with shearing . Full thickness pressure injury R buttocks . Base of wound is moist, with Slough in center.Surrounding area erythematous and denuded. Evolving serous blister L heel.Base of wound is fluctuant with delineated,red margins.(L)3.5cm x (W)5.5cm. Periwound without erythema or fluctuance. R heel firm and blanchable. Tx.Plan: Apply Triad Paste to Sacrum and R buttocks. Cover wounds with Optifoam drsg. Change every 3 days and PRN. Apply Triad Paste to abd folds, R groin,Mons pubis, medial aspects of both upper thighs with each perineal care. Apply Optifoam drsg L thoracic wound. Cover with Optifoam drsg. Change every 3 days and prn. Apply Cavilon Skin Barrier to both heels. Cover each heel with Optifoam drsg. Change every 7 days and prn. APM/CHRISSY Mattress. Reposition at least every 2hours or as tolerated. Off-load heels with pillow (2) Liver cirrhosis Assessment & Plan: DAILY ESTIMATED NEEDS: Needs based on Cirrhosis, Critical care, sepsis/ 58kg adj 22-30 kcals/kg 6967-8249 total kcals 1.2-2 g protein/kg 70-116 g total protein 20-25 mL/kg 1465-3292 total fluid mLs NUTRITION DIAGNOSIS: * Swallowing difficulty R/T respiratory status as evidenced by pt orally intubated, NPO at this time * Altered nutrition related lab values R/T cirrhosis, sepsis, clinical condition as evidenced by elev T bili (5.5), elev NH3 (152), elev LA (6.7), elev creat (2.4). 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 * HOB over 30 degrees/ water flush per MD. ADDITIONAL RECOMMENDATIONS: * Calibrated bedscale wt for accurate CBW * W/ TF, monitor need for NISS: h/o DM * F/up w/ wound eval: add Miquel 1pkt BID + VIt C 250mg QD * Monitor lytes, replete as needed . (3) Acute on chronic alcoholic liver disease (4) Sepsis Assessment & Plan: Restore insufficiency, leukocytosis, anemia, lactic acidosis , liver insufficiency, sepsis Right line removed and pressure held until hemostasis obtained. Currently no significant hematoma or post injury comp occasion identified. Site clean dry. Left line in place and stable. Will recommend PICC line so femoral line can be removed and more definitive long -term access can be obtained given patient's current medical condition and likelihood for prolonged hospitalization stay US noted and okay paracentesis PICC Continue IV antibiotics We will monitor and follow with recommendations Ultrasound ordered Efrain Whitaker May 28, 2019 12:36
--- NOTE | 2019-05-28 13:20 | General Progress Note ---
Assessment/Plan Problem List: (1) Liver cirrhosis ICD Codes: K74.60 - Unspecified cirrhosis of liver SNOMED: 56340873 (2) Sepsis ICD Codes: A41.9 - Sepsis, unspecified organism SNOMED: 85140156 Qualifiers: Qualified Codes: A41.9 - Sepsis, unspecified organism (3) Anasarca ICD Codes: R60.1 - Generalized edema SNOMED: 800066583, 669875035 (4) Ascites ICD Codes: R18.8 - Other ascites SNOMED: 515324100 (5) Anemia ICD Codes: D64.9 - Anemia, unspecified SNOMED: 354679975 (6) Hepatic encephalopathy ICD Codes: K72.90 - Hepatic failure, unspecified without coma SNOMED: 11107098 (7) Acute respiratory failure ICD Codes: J96.00 - Acute respiratory failure, unspecified whether with hypoxia or hypercapnia SNOMED: 94680693 (8) ETOH abuse ICD Codes: F10.10 - Alcohol abuse, uncomplicated SNOMED: 26867254 Status: unchanged Assessment/Plan: lactulose cont Xifaxan neg stool ob fu H&H and transfuse prn ppi NGTf abx per ID Subjective ROS Limited/Unobtainable: No Allergies: Coded Allergies: No Known Allergies (Unverified , 01/31/19) Objective Last 24 Hour Vital Signs Date Time Temp Pulse Resp B/P (MAP) Pulse Ox O2 Delivery O2 Flow Rate FiO2 05/28/19 12:00 98.2 90 18 128/78 (95) 95 05/28/19 09:00 Nasal Cannula 2.0 05/28/19 08:00 97.1 87 17 155/81 (105) 96 05/28/19 04:00 99.0 80 19 156/77 (103) 97 05/28/19 00:00 97.8 90 21 118/76 (90) 95 05/27/19 21:00 Nasal Cannula 2.0 05/27/19 20:00 97.8 93 20 114/62 (79) 96 05/27/19 16:00 98.4 93 18 127/74 (91) 97 93 05/27/19 16:00 Nasal Cannula 2.0 Nasal Cannula 2.0 Intake and Output 05/27/19 05/28/19 18:59 06:59 Intake Total 870 ml 4467.5 ml Output Total 4790 ml Balance 870 ml -322.5 ml Intake Oral 120 ml Free Water 150 ml 400 ml IV Total 3137.5 ml Tube Feeding 720 ml 780 ml Other 30 ml Output Urine Total 150 ml Stool Total 100 ml Emesis 40 ml Other 4500 ml # Voids 1 # Bowel Movements 2 1 Laboratory Tests 05/28/19 05:15: White Blood Count 14.6H, Red Blood Count 2.79L, Hemoglobin 8.5L, Hematocrit 28.8L, Mean Corpuscular Volume 103H, Mean Corpuscular Hemoglobin 30.5, Mean Corpuscular Hemoglobin Concent 29.5L, Red Cell Distribution Width 29.5H, Platelet Count 105L, Mean Platelet Volume 6.8, Neutrophils (%) (Auto) 80.6H, Lymphocytes (%) (Auto) 8.4L, Monocytes (%) (Auto) 8.2, Eosinophils (%) (Auto) 1.5, Basophils (%) (Auto) 1.3, Sodium Level 146H, Potassium Level 4.8, Chloride Level 115H, Carbon Dioxide Level 18L, Anion Gap 13, Blood Urea Nitrogen 59H, Creatinine 2.3H, Estimat Glomerular Filtration Rate 21.9, Glucose Level 169H, Calcium Level 8.7, Phosphorus Level 5.0H, Magnesium Level 2.2 Height (Feet): 5 Height (Inches): 0.00 Weight (Pounds): 193 General Appearance: no apparent distress EENT: normal ENT inspection Neck: supple Cardiovascular: normal rate Respiratory/Chest: decreased breath sounds Abdomen: normal bowel sounds, non tender, soft Extremities: non-tender Jon Torres MD May 28, 2019 13:20
[2019-05-28 16:00] VITALS: BP 130/73
--- NOTE | 2019-05-28 16:47 | NUR ---
NURSE NOTES: Wound care provided and picture uploaded; patient tolerated well.
--- NOTE | 2019-05-28 16:53 | Internal Med Progress Note ---
Subjective Date of Service: May 28, 2019 Physician Name BenjaminJose irving Attending Physician Goldy Amador MD Current Medications Medications (Trade) Dose Ordered Sig/Almaz Route PRN Reason Start Time Stop Time Status Last Admin Dose Admin Acetaminophen (Tylenol) 650 mg Q6H PRN NG Mild Pain/Temp > 100.5 05/27/19 12:30 06/26/19 12:29 Betamethasone/ Clotrimazole (Lotrisone) 1 applic TWICE A DAY TOPIC 05/26/19 18:00 06/25/19 17:59 05/28/19 08:58 Chlorhexidine Gluconate (Shannon-Hex 2%) 1 applic DAILY@1999 TOPIC 05/26/19 20:00 06/17/19 19:59 05/27/19 20:31 Dextrose (Dextrose 50%) 25 ml Q30M PRN IV Hypoglycemia 05/26/19 06:45 06/16/19 21:44 Dextrose (Dextrose 50%) 50 ml Q30M PRN IV Hypoglycemia 05/26/19 06:45 06/16/19 21:44 Fluconazole/ Sodium Chloride 100 ml @ 100 mls/hr Q24H IV 05/28/19 17:00 06/04/19 16:59 Insulin Aspart (NovoLOG) Q6HR SUBQ 05/26/19 12:00 06/24/19 11:59 05/28/19 12:12 Lactulose (Cephulac) 10 gm THREE TIMES A DAY NG 05/26/19 09:00 06/17/19 10:29 05/28/19 12:11 Lansoprazole (Prevacid) 30 mg Q12HR NG 05/26/19 21:00 06/25/19 20:59 05/28/19 08:58 Morphine Sulfate (Morphine Sulfate) 2 mg Q4H PRN IVP Severe Pain (Pain Scale 7-10) 05/27/19 12:30 06/03/19 12:29 Ondansetron HCl (Zofran) 4 mg Q6H PRN IVP Nausea & Vomiting 05/26/19 06:45 06/16/19 06:44 Piperacillin Sod/ Tazobactam Sod 3.375 gm/Sodium Chloride 110 ml @ 27.5 mls/hr EVERY 8 HOURS IVPB 05/26/19 14:00 05/31/19 13:59 05/28/19 13:23 Rifaximin (Xifaxan) 550 mg EVERY 12 HOURS NG 05/26/19 09:00 06/01/19 23:00 05/28/19 08:58 Allergies: Coded Allergies: No Known Allergies (Unverified , 01/31/19) ROS Limited/Unobtainable: No Constitutional: Reports: no symptoms HEENT: Reports: no symptoms Cardiovascular: Reports: no symptoms Respiratory: Reports: shortness of breath Gastrointestinal/Abdominal: Reports: no symptoms Genitourinary: Reports: no symptoms Subjective 58 YO F admitted with respiratory failure and presumed septic shock. Now UTI. Cover for Int Med-Dr Amador. Extubated 05/25/19. S/P paracentesis 05/25/19 Objective Last Vital Signs Date Time Temp Pulse Resp B/P (MAP) Pulse Ox O2 Delivery O2 Flow Rate FiO2 05/28/19 16:00 97.6 90 17 130/73 (92) 97 05/28/19 09:00 Nasal Cannula 2.0 05/26/19 06:30 28 Laboratory Tests Test 05/28/19 05:15 White Blood Count 14.6 K/UL (4.8-10.8) H Red Blood Count 2.79 M/UL (4.20-5.40) L Hemoglobin 8.5 G/DL (12.0-16.0) L Hematocrit 28.8 % (37.0-47.0) L Mean Corpuscular Volume 103 FL (80-99) H Mean Corpuscular Hemoglobin 30.5 PG (27.0-31.0) Mean Corpuscular Hemoglobin Concent 29.5 G/DL (32.0-36.0) L Red Cell Distribution Width 29.5 % (11.6-14.8) H Platelet Count 105 K/UL (150-450) L Mean Platelet Volume 6.8 FL (6.5-10.1) Neutrophils (%) (Auto) 80.6 % (45.0-75.0) H Lymphocytes (%) (Auto) 8.4 % (20.0-45.0) L Monocytes (%) (Auto) 8.2 % (1.0-10.0) Eosinophils (%) (Auto) 1.5 % (0.0-3.0) Basophils (%) (Auto) 1.3 % (0.0-2.0) Sodium Level 146 MMOL/L (136-145) H Potassium Level 4.8 MMOL/L (3.5-5.1) Chloride Level 115 MMOL/L (98-107) H Carbon Dioxide Level 18 MMOL/L (21-32) L Anion Gap 13 mmol/L (5-15) Blood Urea Nitrogen 59 mg/dL (7-18) H Creatinine 2.3 MG/DL (0.55-1.30) H Estimat Glomerular Filtration Rate 21.9 mL/min (>60) Glucose Level 169 MG/DL (74-106) H Calcium Level 8.7 MG/DL (8.5-10.1) Phosphorus Level 5.0 MG/DL (2.5-4.9) H Magnesium Level 2.2 MG/DL (1.8-2.4) Intake and Output 05/27/19 05/28/19 18:59 06:59 Intake Total 870 ml 4467.5 ml Output Total 4790 ml Balance 870 ml -322.5 ml Intake Oral 120 ml Free Water 150 ml 400 ml IV Total 3137.5 ml Tube Feeding 720 ml 780 ml Other 30 ml Output Urine Total 150 ml Stool Total 100 ml Emesis 40 ml Other 4500 ml # Voids 1 # Bowel Movements 2 1 Objective PHYSICAL EXAMINATION: GENERAL: The patient is a well-developed and well-nourished obese female, who is intubated and sedated. HEENT: Eyes, pupils are equal and responsive to light and accommodation. Extraocular movements are intact. NECK: Supple without lymphadenopathy. CHEST: nasal canula; Coarse upper breath sounds, otherwise without wheezes or rales. CARDIOVASCULAR: Regular rhythm, rate. S1, S2 normal without murmurs, rubs, or gallops. ABDOMEN: Soft, distended with decreased bowel sounds. No evidence of hepatosplenomegaly. Currently, no rebound or guarding noted. EXTREMITIES: Negative for clubbing, cyanosis, or edema. RECTAL/GENITAL: Not performed. NEUROLOGICAL: Unable to assess. Assessment/Plan Assessment/Plan ASSESSMENT: This is a 58-year-old female. 1. Respiratory failure. 2. Urinary tract infection=klebsiella pneumoniae 3. Probable sepsis. 4. Probable septic shock. 5. Alcoholic cirrhosis of the liver. 6. Hypertension. 7. Diabetes type 2. 8. Ascites. 9. Hypercholesterolemia. TREATMENT: 1. Respiratory failure. A Pulmonary consultation has been obtained with Dr. Shireen Khan. The patient is currently intubated and sedated in the intensive care unit. We will follow recommendations of Pulmonary. 2. Urinary tract infection. An Infectious Disease consultation has been obtained with Dr. Hu. ABX=zosyn and fluconazole Urine culture=klebsiella 3. Probable sepsis-increased WBC. See ID note 4. Septic shock. 5. Alcoholic cirrhosis of liver. A Gastroenterology consultation has been obtained with Dr. Jon Torres. S/P paracentesis 05/19/19 6. Hypertension. The patient is currently hypotensive. Hold all antihypertensive medications. 7. Diabetes type 2. A NovoLog sliding scale has been instituted. 8. Ascites, as above. A Gastroenterology consultation has been obtained with Dr. Jon Torres. S/P paracentesis 05/19/19 and 05/25/19 9. Hypercholesterolemia. Jose Benjamin MD May 28, 2019 16:53
[2019-05-28] MEDS: Fluconazole 200mg/100ml (Pre-Mix) IV SCH (16:58)
--- NOTE | 2019-05-28 19:23 | NUR ---
HAND-OFF: Report given to CHAVA Joe.
--- NOTE | 2019-05-28 19:25 | NUR ---
NURSE NOTES: Received report from CHAVA Shaw. Patient awake. Barely answers any question. Speaks Kazakh. Breathing unlabored without distress, discomfort, or sob on 1.5 L NC. No s/s or complaints of pain noted at this time. Left upper arm PICC line noted running TKO on both lumens. Dressing intact. SCDs placed properly and on. Patient on P200 mattress. Bilateral soft restraint noted on wrist intact. Pulses are present on bilateral wrist. Draper intact draining urine. Bed placed at the lowest with alarm, brake, and siderails up for safety. Call light placed within reach. Will continue to monitor and provide care as ordered. Addendum: 05/29/19 at 0027 by Gaston Joe RN NG tube feeding running as ordered with no residual. Placement rechecked by auscultation.
[2019-05-28 20:00] VITALS: BP 121/68
[2019-05-28] MEDS: Dyna-Hex 2% Top Sol 2oz TOPIC SCH (20:05)
--- NOTE | 2019-05-28 22:59 | NUR ---
NURSE NOTES: Previous prolong 72hr restraint order cancelled by computer due to wrong duplicate order. Prolong 72hr restraint order valid until May 29, 2200 according to the initial restraint order. Charge nurse made aware.
[2019-05-29] VITALS: BP 132/71
[2019-05-29 04:00] VITALS: BP 120/75
[2019-05-29] MEDS: Piperacillin/Tazobactam 3.375 GM in NS 110 ML IVPB SCH ×3 (05:32→21:57)
[2019-05-29] MEDS: NovoLOG Insulin Flexpen SUBQ SCH ×4 (05:41→21:22)
[2019-05-29 05:45] LABS: BASOPHILS % (AUTO) 0.9 % (0.0-2.0); EOSINOPHILS % (AUTO) 1.5 % (0.0-3.0); HEMATOCRIT 28.6 % (37.0-47.0); HEMOGLOBIN 8.5 G/DL (12.0-16.0); MEAN CORPUSCULAR VOLUME 102 FL (80-99); MONOCYTES % (AUTO) 8.5 % (1.0-10.0); NEUTROPHILS % (AUTO) 81.1 % (45.0-75.0); PLATELET COUNT 108 K/UL (150-450); RED CELL DISTRIBUTION WIDTH 28.9 % (11.6-14.8); WHITE BLOOD COUNT 14.4 K/UL (4.8-10.8)
[2019-05-29 06:00] LABS: ANION GAP 14 mmol/L (5-15); BLOOD UREA NITROGEN 66 mg/dL (7-18); CALCIUM 8.3 MG/DL (8.5-10.1); CARBON DIOXIDE 18 MMOL/L (21-32); CHLORIDE 115 MMOL/L (98-107); CREATININE 2.3 MG/DL (0.55-1.30); POTASSIUM 4.8 MMOL/L (3.5-5.1); SODIUM 147 MMOL/L (136-145)
--- NOTE | 2019-05-29 07:19 | General Progress Note ---
Assessment/Plan Problem List: (1) Liver cirrhosis ICD Codes: K74.60 - Unspecified cirrhosis of liver SNOMED: 26163099 (2) Sepsis ICD Codes: A41.9 - Sepsis, unspecified organism SNOMED: 66055538 Qualifiers: Qualified Codes: A41.9 - Sepsis, unspecified organism (3) Anasarca ICD Codes: R60.1 - Generalized edema SNOMED: 584312203, 286573971 (4) Ascites ICD Codes: R18.8 - Other ascites SNOMED: 558693136 (5) Anemia ICD Codes: D64.9 - Anemia, unspecified SNOMED: 772243084 (6) Hepatic encephalopathy ICD Codes: K72.90 - Hepatic failure, unspecified without coma SNOMED: 79468740 (7) Acute respiratory failure ICD Codes: J96.00 - Acute respiratory failure, unspecified whether with hypoxia or hypercapnia SNOMED: 76308744 (8) ETOH abuse ICD Codes: F10.10 - Alcohol abuse, uncomplicated SNOMED: 71844565 Status: unchanged Assessment/Plan: lactulose cont Xifaxan neg stool ob fu H&H and transfuse prn ppi NGTf abx per ID Subjective ROS Limited/Unobtainable: Yes Allergies: Coded Allergies: No Known Allergies (Unverified , 01/31/19) Objective Last 24 Hour Vital Signs Date Time Temp Pulse Resp B/P (MAP) Pulse Ox O2 Delivery O2 Flow Rate FiO2 05/29/19 04:00 98.5 93 21 120/75 (90) 95 05/29/19 00:00 98.3 98 22 132/71 (91) 98 05/28/19 21:00 Nasal Cannula 1.5 05/28/19 20:00 97.5 89 21 121/68 (85) 96 05/28/19 16:00 97.6 90 17 130/73 (92) 97 05/28/19 12:00 98.2 90 18 128/78 (95) 95 05/28/19 09:00 Nasal Cannula 2.0 05/28/19 08:00 97.1 87 17 155/81 (105) 96 Intake and Output 05/28/19 05/29/19 19:00 07:00 Intake Total 1130.0 ml 3947.5 ml Output Total 4940 ml Balance 1130.0 ml -992.5 ml Intake Oral 120 ml Free Water 300 ml 300 ml IV Total 110.0 ml 3137.5 ml Tube Feeding 720 ml 360 ml Other 30 ml Output Urine Total 300 ml Stool Total 100 ml Emesis 40 ml Other 4500 ml # Voids 1 # Bowel Movements 1 2 Laboratory Tests 05/29/19 04:35: White Blood Count 14.4H, Red Blood Count 2.80L, Hemoglobin 8.5L, Hematocrit 28.6L, Mean Corpuscular Volume 102H, Mean Corpuscular Hemoglobin 30.3, Mean Corpuscular Hemoglobin Concent 29.6L, Red Cell Distribution Width 28.9H, Platelet Count 108L, Mean Platelet Volume 6.6, Neutrophils (%) (Auto) 81.1H, Lymphocytes (%) (Auto) 8.0L, Monocytes (%) (Auto) 8.5, Eosinophils (%) (Auto) 1.5, Basophils (%) (Auto) 0.9, Sodium Level 147H, Potassium Level 4.8, Chloride Level 115H, Carbon Dioxide Level 18L, Anion Gap 14, Blood Urea Nitrogen 66H, Creatinine 2.3H, Estimat Glomerular Filtration Rate 21.9, Glucose Level 159H, Calcium Level 8.3L Height (Feet): 5 Height (Inches): 0.00 Weight (Pounds): 193 General Appearance: alert EENT: normal ENT inspection Neck: supple Cardiovascular: normal rate Respiratory/Chest: decreased breath sounds Abdomen: normal bowel sounds, non tender, soft Extremities: non-tender Jon Torres MD May 29, 2019 07:19
--- NOTE | 2019-05-29 07:36 | NUR ---
HAND-OFF: Report given to CHAVA Wood.
--- NOTE | 2019-05-29 07:39 | NUR ---
NURSE NOTES: Pt resting in bed. Awake, A/O x 1-2, Icelandic only, restrains on, skin intact. NG tube in place, feeding at 60cc, tolerating well, no residual. PICC line 2 lumen, LUE, dressing CDI, due to change 05/30/2019. bentley in place, draining dark yellow urine. last BM 05/29. Dressing on sacral, changed am, CDI. pts on Abx. abd distended, BS present. pts on P200 bed, HOB >30degrees. excoriation on groin/buttocks noted. turned and repositioned q2hrs. call light within reach, bed in low position, bed alarm on. fall precaution maintained. will continue to monitor.
[2019-05-29 08:00] VITALS: BP 122/78
--- NOTE | 2019-05-29 08:02 | Pulmonology Progress Note ---
Assessment/Plan Assessment/Plan ASSESSMENT Sepsis Acute hypoxemic respiratory failure requiring intubation, status post extubation 05/25 Acute on chronic alcoholic liver disease ATN/ZI Acute metabolic encephalopathy Hepatic encephalopathy Liver cirrhosis Portal hypertension Recurrent ascites, status post paracentesis UTI with Arlin , Klebsiella Probably VAP Hypertension Diabetes EtOH abuse Anemia Thrombocytopenia Coagulopathy Electrolyte imbalance Sacral decubitus ulcer, present on admission PLAN OF CARE extubated 05/25 MS floor O2 HHN prn follow-up with CXR venous duplex negative abx as per ID recs slow hydration, monitor renal parameters, lytes, correct electrolytes as needed Lactulose , Xifaxan, ammonia trending down s/p paracentesis 05/19/ and 05/25; yielding correspondingly 4.8 and 4.1 L of fluid, no evidence of SBP monitor H&H with goal to keep Hgb above 7, s/p 1 unit PRBC monitor platelet count and INR , likely related to liver cirrhosis all imaging noted wound care as per surgeon recommendation BS management with sliding scale of insulin GI prophylaxis not passed swallow eval NG tube inserted for nutrition and medications strict aspiration precaution supportive care poor prognosis DNR/DNI status case discussed and evaluated by supervising physician Subjective Allergies: Coded Allergies: No Known Allergies (Unverified , 01/31/19) Subjective no chest pain, occ SOB pulse ox stable on O2 2L via NC still c/o intermittent abd pain, no n/v/diarrhea Objective Last 24 Hour Vital Signs Date Time Temp Pulse Resp B/P (MAP) Pulse Ox O2 Delivery O2 Flow Rate FiO2 05/29/19 04:00 98.5 93 21 120/75 (90) 95 05/29/19 00:00 98.3 98 22 132/71 (91) 98 05/28/19 21:00 Nasal Cannula 1.5 05/28/19 20:00 97.5 89 21 121/68 (85) 96 05/28/19 16:00 97.6 90 17 130/73 (92) 97 05/28/19 12:00 98.2 90 18 128/78 (95) 95 05/28/19 09:00 Nasal Cannula 2.0 Intake and Output 05/28/19 05/29/19 19:00 07:00 Intake Total 1130.0 ml 3947.5 ml Output Total 4940 ml Balance 1130.0 ml -992.5 ml Intake Oral 120 ml Free Water 300 ml 300 ml IV Total 110.0 ml 3137.5 ml Tube Feeding 720 ml 360 ml Other 30 ml Output Urine Total 300 ml Stool Total 100 ml Emesis 40 ml Other 4500 ml # Voids 1 # Bowel Movements 1 2 Objective General Appearance: no acute distress, awake, alert, obese chronically ill looking female HEENT: normocephalic, atraumatic Respiratory/Chest: chest wall non-tender, no accessory muscle use, decreased breath sounds at bases Cardiovascular: normal rate Abdomen: normal bowel sounds ; abdomen, soft, mild diffused tenderness, no rebound, no guarding, distended Extremities: other - +1 edema BLE Neurologic/Psychiatric: no motor/sensory deficits, alert, responsive Musculoskeletal: normal muscle bulk Laboratory Tests 05/29/19 04:35: White Blood Count 14.4H, Red Blood Count 2.80L, Hemoglobin 8.5L, Hematocrit 28.6L, Mean Corpuscular Volume 102H, Mean Corpuscular Hemoglobin 30.3, Mean Corpuscular Hemoglobin Concent 29.6L, Red Cell Distribution Width 28.9H, Platelet Count 108L, Mean Platelet Volume 6.6, Neutrophils (%) (Auto) 81.1H, Lymphocytes (%) (Auto) 8.0L, Monocytes (%) (Auto) 8.5, Eosinophils (%) (Auto) 1.5, Basophils (%) (Auto) 0.9, Sodium Level 147H, Potassium Level 4.8, Chloride Level 115H, Carbon Dioxide Level 18L, Anion Gap 14, Blood Urea Nitrogen 66H, Creatinine 2.3H, Estimat Glomerular Filtration Rate 21.9, Glucose Level 159H, Calcium Level 8.3L Current Medications Medications (Trade) Dose Ordered Sig/Almaz Route PRN Reason Start Time Stop Time Status Last Admin Dose Admin Acetaminophen (Tylenol) 650 mg Q6H PRN NG Mild Pain/Temp > 100.5 05/27/19 12:30 06/26/19 12:29 Betamethasone/ Clotrimazole (Lotrisone) 1 applic TWICE A DAY TOPIC 05/26/19 18:00 06/25/19 17:59 05/28/19 16:58 Chlorhexidine Gluconate (Shannon-Hex 2%) 1 applic DAILY@1999 TOPIC 05/26/19 20:00 06/17/19 19:59 05/28/19 20:05 Dextrose (Dextrose 50%) 25 ml Q30M PRN IV Hypoglycemia 05/26/19 06:45 06/16/19 21:44 Dextrose (Dextrose 50%) 50 ml Q30M PRN IV Hypoglycemia 05/26/19 06:45 06/16/19 21:44 Fluconazole/ Sodium Chloride 100 ml @ 100 mls/hr Q24H IV 05/28/19 17:00 06/04/19 16:59 05/28/19 16:58 Insulin Aspart (NovoLOG) Q6HR SUBQ 05/26/19 12:00 06/24/19 11:59 05/29/19 05:41 Lactulose (Cephulac) 10 gm THREE TIMES A DAY NG 05/26/19 09:00 06/17/19 10:29 05/28/19 16:57 Lansoprazole (Prevacid) 30 mg Q12HR NG 05/26/19 21:00 06/25/19 20:59 05/28/19 21:24 Morphine Sulfate (Morphine Sulfate) 2 mg Q4H PRN IVP Severe Pain (Pain Scale 7-10) 05/27/19 12:30 06/03/19 12:29 Ondansetron HCl (Zofran) 4 mg Q6H PRN IVP Nausea & Vomiting 05/26/19 06:45 06/16/19 06:44 Piperacillin Sod/ Tazobactam Sod 3.375 gm/Sodium Chloride 110 ml @ 27.5 mls/hr EVERY 8 HOURS IVPB 05/26/19 14:00 05/31/19 13:59 05/29/19 05:32 Rifaximin (Xifaxan) 550 mg EVERY 12 HOURS NG 05/26/19 09:00 06/01/19 23:00 05/28/19 21:24 Corinna Guzman NP May 29, 2019 08:02
[2019-05-29] MEDS ORDERED: Albuterol/Ipratropium 3ml neb HHN PRN (08:15)
[2019-05-29] MEDS: Lactulose 20gm/30ml UDC NG SCH ×3 (08:20→17:27)
[2019-05-29] MEDS: Lotrisone Cream 15gm TOPIC SCH ×2 (08:27→17:30)
[2019-05-29 12:00] VITALS: BP 121/73
--- NOTE | 2019-05-29 14:33 | Nephrology Progress Note ---
Assessment/Plan Problem List: (1) ATN (acute tubular necrosis) (2) Sepsis (3) Acute respiratory failure (4) Acute on chronic alcoholic liver disease Assessment: worsening bili (5) Anemia Assessment Renal failure- Acute On May 09, 2019 normal renal parameters Severe Anemia, Acute on chronic- Acute part from right groin attempted line insertion Severe HypoAlbuminemia, Cirrhosis, ALD, Ascites Sepsis- High lactic Acid Acute respiratory failure Previous gram negative bacteremia / Sepsis Plan extubated 05/25 Hydrate- slow K supplement as needed Antibiotics Monitor renal parameters avoid nephrotoxics transfuse as needed- per orders discussed with RN Subjective ROS Limited/Unobtainable: No Constitutional: Reports: malaise, weakness Objective Objective Last 24 Hour Vital Signs Date Time Temp Pulse Resp B/P (MAP) Pulse Ox O2 Delivery O2 Flow Rate FiO2 05/29/19 12:00 97.9 95 18 121/73 (89) 96 05/29/19 09:00 Nasal Cannula 1.5 05/29/19 08:00 98.7 90 18 122/78 (93) 97 05/29/19 04:00 98.5 93 21 120/75 (90) 95 05/29/19 00:00 98.3 98 22 132/71 (91) 98 05/28/19 21:00 Nasal Cannula 1.5 05/28/19 20:00 97.5 89 21 121/68 (85) 96 05/28/19 16:00 97.6 90 17 130/73 (92) 97 Intake and Output 05/28/19 05/29/19 19:00 07:00 Intake Total 1130.0 ml 3947.5 ml Output Total 4940 ml Balance 1130.0 ml -992.5 ml Intake Oral 120 ml Free Water 300 ml 300 ml IV Total 110.0 ml 3137.5 ml Tube Feeding 720 ml 360 ml Other 30 ml Output Urine Total 300 ml Stool Total 100 ml Emesis 40 ml Other 4500 ml # Voids 1 # Bowel Movements 1 2 Laboratory Tests 05/29/19 04:35: White Blood Count 14.4H, Red Blood Count 2.80L, Hemoglobin 8.5L, Hematocrit 28.6L, Mean Corpuscular Volume 102H, Mean Corpuscular Hemoglobin 30.3, Mean Corpuscular Hemoglobin Concent 29.6L, Red Cell Distribution Width 28.9H, Platelet Count 108L, Mean Platelet Volume 6.6, Neutrophils (%) (Auto) 81.1H, Lymphocytes (%) (Auto) 8.0L, Monocytes (%) (Auto) 8.5, Eosinophils (%) (Auto) 1.5, Basophils (%) (Auto) 0.9, Sodium Level 147H, Potassium Level 4.8, Chloride Level 115H, Carbon Dioxide Level 18L, Anion Gap 14, Blood Urea Nitrogen 66H, Creatinine 2.3H, Estimat Glomerular Filtration Rate 21.9, Glucose Level 159H, Calcium Level 8.3L Height (Feet): 5 Height (Inches): 0.00 Weight (Pounds): 193 General Appearance: no apparent distress, other - jaundiced Cardiovascular: normal rate Respiratory/Chest: decreased breath sounds Abdomen: distended Objective no change Jovany Byers MD May 29, 2019 14:33
--- NOTE | 2019-05-29 15:23 | Internal Med Progress Note ---
Subjective Date of Service: May 29, 2019 Physician Name Benjamin,Jose Attending Physician Goldy Amador MD Current Medications Medications (Trade) Dose Ordered Sig/Almaz Route PRN Reason Start Time Stop Time Status Last Admin Dose Admin Acetaminophen (Tylenol) 650 mg Q6H PRN NG Mild Pain/Temp > 100.5 05/27/19 12:30 06/26/19 12:29 Albuterol/ Ipratropium (Albuterol/ Ipratropium) 3 ml Q4H PRN HHN Shortness of Breath 05/29/19 08:15 06/03/19 08:14 Betamethasone/ Clotrimazole (Lotrisone) 1 applic TWICE A DAY TOPIC 05/26/19 18:00 06/25/19 17:59 05/29/19 08:27 Chlorhexidine Gluconate (Shannon-Hex 2%) 1 applic DAILY@1999 TOPIC 05/26/19 20:00 06/17/19 19:59 05/28/19 20:05 Dextrose (Dextrose 50%) 25 ml Q30M PRN IV Hypoglycemia 05/26/19 06:45 06/16/19 21:44 Dextrose (Dextrose 50%) 50 ml Q30M PRN IV Hypoglycemia 05/26/19 06:45 06/16/19 21:44 Fluconazole/ Sodium Chloride 100 ml @ 100 mls/hr Q24H IV 05/28/19 17:00 06/04/19 16:59 05/28/19 16:58 Insulin Aspart (NovoLOG) Q6HR SUBQ 05/26/19 12:00 06/24/19 11:59 05/29/19 12:16 Lactulose (Cephulac) 10 gm THREE TIMES A DAY NG 05/26/19 09:00 06/17/19 10:29 05/29/19 12:18 Lansoprazole (Prevacid) 30 mg Q12HR NG 05/26/19 21:00 06/25/19 20:59 05/29/19 08:19 Morphine Sulfate (Morphine Sulfate) 2 mg Q4H PRN IVP Severe Pain (Pain Scale 7-10) 05/27/19 12:30 06/03/19 12:29 Ondansetron HCl (Zofran) 4 mg Q6H PRN IVP Nausea & Vomiting 05/26/19 06:45 06/16/19 06:44 Piperacillin Sod/ Tazobactam Sod 3.375 gm/Sodium Chloride 110 ml @ 27.5 mls/hr EVERY 8 HOURS IVPB 05/26/19 14:00 05/31/19 13:59 05/29/19 14:05 Rifaximin (Xifaxan) 550 mg EVERY 12 HOURS NG 05/26/19 09:00 06/01/19 23:00 05/29/19 08:20 Allergies: Coded Allergies: No Known Allergies (Unverified , 01/31/19) ROS Limited/Unobtainable: No Constitutional: Reports: no symptoms HEENT: Reports: no symptoms Cardiovascular: Reports: no symptoms Respiratory: Reports: no symptoms Gastrointestinal/Abdominal: Reports: no symptoms Genitourinary: Reports: no symptoms Neurologic/Psychiatric: Reports: no symptoms Subjective 58 YO F admitted with respiratory failure and presumed septic shock. Now UTI. Cover for Int Med-Dr Amador. Extubated 05/25/19. S/P paracentesis 05/25/19 Objective Last Vital Signs Date Time Temp Pulse Resp B/P (MAP) Pulse Ox O2 Delivery O2 Flow Rate FiO2 05/29/19 12:00 97.9 95 18 121/73 (89) 96 05/29/19 09:00 Nasal Cannula 1.5 05/26/19 06:30 28 Laboratory Tests Test 05/29/19 04:35 White Blood Count 14.4 K/UL (4.8-10.8) H Red Blood Count 2.80 M/UL (4.20-5.40) L Hemoglobin 8.5 G/DL (12.0-16.0) L Hematocrit 28.6 % (37.0-47.0) L Mean Corpuscular Volume 102 FL (80-99) H Mean Corpuscular Hemoglobin 30.3 PG (27.0-31.0) Mean Corpuscular Hemoglobin Concent 29.6 G/DL (32.0-36.0) L Red Cell Distribution Width 28.9 % (11.6-14.8) H Platelet Count 108 K/UL (150-450) L Mean Platelet Volume 6.6 FL (6.5-10.1) Neutrophils (%) (Auto) 81.1 % (45.0-75.0) H Lymphocytes (%) (Auto) 8.0 % (20.0-45.0) L Monocytes (%) (Auto) 8.5 % (1.0-10.0) Eosinophils (%) (Auto) 1.5 % (0.0-3.0) Basophils (%) (Auto) 0.9 % (0.0-2.0) Sodium Level 147 MMOL/L (136-145) H Potassium Level 4.8 MMOL/L (3.5-5.1) Chloride Level 115 MMOL/L (98-107) H Carbon Dioxide Level 18 MMOL/L (21-32) L Anion Gap 14 mmol/L (5-15) Blood Urea Nitrogen 66 mg/dL (7-18) H Creatinine 2.3 MG/DL (0.55-1.30) H Estimat Glomerular Filtration Rate 21.9 mL/min (>60) Glucose Level 159 MG/DL (74-106) H Calcium Level 8.3 MG/DL (8.5-10.1) L Intake and Output 05/28/19 05/29/19 19:00 07:00 Intake Total 1130.0 ml 3947.5 ml Output Total 4940 ml Balance 1130.0 ml -992.5 ml Intake Oral 120 ml Free Water 300 ml 300 ml IV Total 110.0 ml 3137.5 ml Tube Feeding 720 ml 360 ml Other 30 ml Output Urine Total 300 ml Stool Total 100 ml Emesis 40 ml Other 4500 ml # Voids 1 # Bowel Movements 1 2 Objective PHYSICAL EXAMINATION: GENERAL: The patient is a well-developed and well-nourished obese female, who is intubated and sedated. HEENT: Eyes, pupils are equal and responsive to light and accommodation. Extraocular movements are intact. NECK: Supple without lymphadenopathy. CHEST: nasal canula; Coarse upper breath sounds, otherwise without wheezes or rales. CARDIOVASCULAR: Regular rhythm, rate. S1, S2 normal without murmurs, rubs, or gallops. ABDOMEN: Soft, distended with decreased bowel sounds. No evidence of hepatosplenomegaly. Currently, no rebound or guarding noted. EXTREMITIES: Negative for clubbing, cyanosis, or edema. RECTAL/GENITAL: Not performed. NEUROLOGICAL: Unable to assess. Assessment/Plan Assessment/Plan ASSESSMENT: This is a 58-year-old female. 1. Respiratory failure. 2. Urinary tract infection=klebsiella pneumoniae 3. Probable sepsis. 4. Probable septic shock. 5. Alcoholic cirrhosis of the liver. 6. Hypertension. 7. Diabetes type 2. 8. Ascites. 9. Hypercholesterolemia. TREATMENT: 1. Respiratory failure. A Pulmonary consultation has been obtained with Dr. Shireen Khan. The patient is currently intubated and sedated in the intensive care unit. We will follow recommendations of Pulmonary. 2. Urinary tract infection. An Infectious Disease consultation has been obtained with Dr. Hu. ABX=zosyn and fluconazole Urine culture=klebsiella 3. Probable sepsis-increased WBC. See ID note 4. Septic shock. 5. Alcoholic cirrhosis of liver. A Gastroenterology consultation has been obtained with Dr. Jon Torres. S/P paracentesis 05/19/19 6. Hypertension. The patient is currently hypotensive. Hold all antihypertensive medications. 7. Diabetes type 2. A NovoLog sliding scale has been instituted. 8. Ascites, as above. A Gastroenterology consultation has been obtained with Dr. Jon Torres. S/P paracentesis 05/19/19 and 05/25/19 9. Hypercholesterolemia. Jose Benjamin MD May 29, 2019 15:23
--- NOTE | 2019-05-29 15:27 | NUR ---
pt pulled NGT out with restrains on. notified sendy PERSAUD NGT feeding per order. started IVF, keep pt NPO until ST evaluation. will continue to monitor.
--- NOTE | 2019-05-29 15:47 | Surgery Progress Note ---
Surgery Progress Note Subjective Procedure Performed sepsis Additional Comments Ill-appearing. Mildly restless today. Objective Last 24 Hour Vital Signs Date Time Temp Pulse Resp B/P (MAP) Pulse Ox O2 Delivery O2 Flow Rate FiO2 05/29/19 12:00 97.9 95 18 121/73 (89) 96 05/29/19 09:00 Nasal Cannula 1.5 05/29/19 08:00 98.7 90 18 122/78 (93) 97 05/29/19 04:00 98.5 93 21 120/75 (90) 95 05/29/19 00:00 98.3 98 22 132/71 (91) 98 05/28/19 21:00 Nasal Cannula 1.5 05/28/19 20:00 97.5 89 21 121/68 (85) 96 05/28/19 16:00 97.6 90 17 130/73 (92) 97 I&O Intake and Output 05/28/19 05/29/19 19:00 07:00 Intake Total 1130.0 ml 3947.5 ml Output Total 4940 ml Balance 1130.0 ml -992.5 ml Intake Oral 120 ml Free Water 300 ml 300 ml IV Total 110.0 ml 3137.5 ml Tube Feeding 720 ml 360 ml Other 30 ml Output Urine Total 300 ml Stool Total 100 ml Emesis 40 ml Other 4500 ml # Voids 1 # Bowel Movements 1 2 Cardiovascular: RSR Respiratory: clear Abdomen: soft, distended, non-tender, present bowel sounds, non-distended, decreased bowel sounds Extremities: no tenderness, no cyanosis Laboratory Tests Test 05/29/19 04:35 White Blood Count 14.4 K/UL (4.8-10.8) H Red Blood Count 2.80 M/UL (4.20-5.40) L Hemoglobin 8.5 G/DL (12.0-16.0) L Hematocrit 28.6 % (37.0-47.0) L Mean Corpuscular Volume 102 FL (80-99) H Mean Corpuscular Hemoglobin 30.3 PG (27.0-31.0) Mean Corpuscular Hemoglobin Concent 29.6 G/DL (32.0-36.0) L Red Cell Distribution Width 28.9 % (11.6-14.8) H Platelet Count 108 K/UL (150-450) L Mean Platelet Volume 6.6 FL (6.5-10.1) Neutrophils (%) (Auto) 81.1 % (45.0-75.0) H Lymphocytes (%) (Auto) 8.0 % (20.0-45.0) L Monocytes (%) (Auto) 8.5 % (1.0-10.0) Eosinophils (%) (Auto) 1.5 % (0.0-3.0) Basophils (%) (Auto) 0.9 % (0.0-2.0) Sodium Level 147 MMOL/L (136-145) H Potassium Level 4.8 MMOL/L (3.5-5.1) Chloride Level 115 MMOL/L (98-107) H Carbon Dioxide Level 18 MMOL/L (21-32) L Anion Gap 14 mmol/L (5-15) Blood Urea Nitrogen 66 mg/dL (7-18) H Creatinine 2.3 MG/DL (0.55-1.30) H Estimat Glomerular Filtration Rate 21.9 mL/min (>60) Glucose Level 159 MG/DL (74-106) H Calcium Level 8.3 MG/DL (8.5-10.1) L Plan Problems: (1) Sacral decubitus ulcer Assessment & Plan: Pt presented on admission with icteric sclerae and skin. Moisture intertrigo Madhu/left abd folds.(1.5cm long). Moisture intertrigo R groin(8.5cm) slit noted with small amt bleeding. Mons pubis,labia majora and medial aspects of both upper thigh erythematous . Partial thickness wound noted to L thoracic. Base of wound is moist and viable. Edges flat and adherent to base of wound.No exudate noted. (L) 0.6cm x (W)0.8cm. Non-blanchable erythema sacrum,R and L buttocks with scattered shearing .Full thickness pressure injury noted to sacrococcygeal area. Base of wound is steve with small amt slough noted in center.(L) 0.7cm x (W)0.3cm. Area around wound is erythematous non-blanchable with shearing . Full thickness pressure injury R buttocks . Base of wound is moist, with Slough in center.Surrounding area erythematous and denuded. Evolving serous blister L heel.Base of wound is fluctuant with delineated,red margins.(L)3.5cm x (W)5.5cm. Periwound without erythema or fluctuance. R heel firm and blanchable. Tx.Plan: Apply Triad Paste to Sacrum and R buttocks. Cover wounds with Optifoam drsg. Change every 3 days and PRN. Apply Triad Paste to abd folds, R groin,Mons pubis, medial aspects of both upper thighs with each perineal care. Apply Optifoam drsg L thoracic wound. Cover with Optifoam drsg. Change every 3 days and prn. Apply Cavilon Skin Barrier to both heels. Cover each heel with Optifoam drsg. Change every 7 days and prn. APM/CHRISSY Mattress. Reposition at least every 2hours or as tolerated. Off-load heels with pillow (2) Liver cirrhosis Assessment & Plan: DAILY ESTIMATED NEEDS: Needs based on Cirrhosis, Critical care, sepsis/ 58kg adj 22-30 kcals/kg 5236-6293 total kcals 1.2-2 g protein/kg 70-116 g total protein 20-25 mL/kg 5748-7276 total fluid mLs NUTRITION DIAGNOSIS: * Swallowing difficulty R/T respiratory status as evidenced by pt orally intubated, NPO at this time * Altered nutrition related lab values R/T cirrhosis, sepsis, clinical condition as evidenced by elev T bili (5.5), elev NH3 (152), elev LA (6.7), elev creat (2.4). CURRENT TF:NPO PO DIET RECOMMENDATIONS: [employer] TECHNICIAN eval post extubation -> LOW NA ENTERAL NUTRITION RECOMMENDATIONS: Glucerna 1.2 @ 55ml/hr x 24 hrs to provide 1320ml, 1584kcal, 79g prot, 1063ml free water * Rec Glucerna 1.2 to maintain good BG control: h/o DM * As medically appropriate, initiate Glucerna 1.2 @ 25ml/hr x 6 hrs * Advance 10ml q 4-6 hrs as tolerated to goal rate. * HOB over 30 degrees/ water flush per MD. ADDITIONAL RECOMMENDATIONS: * Calibrated bedscale wt for accurate CBW * W/ TF, monitor need for NISS: h/o DM * F/up w/ wound eval: add Miquel 1pkt BID + VIt C 250mg QD * Monitor lytes, replete as needed . (3) Acute on chronic alcoholic liver disease (4) Sepsis Assessment & Plan: Restore insufficiency, leukocytosis, anemia, lactic acidosis , liver insufficiency, sepsis Right line removed and pressure held until hemostasis obtained. Currently no significant hematoma or post injury comp occasion identified. Site clean dry. Left line in place and stable. Will recommend PICC line so femoral line can be removed and more definitive long -term access can be obtained given patient's current medical condition and likelihood for prolonged hospitalization stay US noted and okay paracentesis PICC Continue IV antibiotics We will monitor and follow with recommendations Ultrasound ordered Efrain Whitaker May 29, 2019 15:47
[2019-05-29 16:00] VITALS: BP 118/70
--- NOTE | 2019-05-29 16:00 | NUR ---
Received order to change [place] from q6 to AC+HS starting 1630. will continue to monitor.
[2019-05-29] MEDS: Fluconazole 200mg/100ml (Pre-Mix) IV SCH (17:26)
--- NOTE | 2019-05-29 19:27 | Infectious Diseases Prog Note ---
Assessment/Plan Assessment/Plan Assessment/Plan 58 yo female with PMHx of Liver cirrhosis with recurrent ascites, HTN, ETOH abuse, DM and Hepatic encephalopathy who presented to the ED on 05/17/19 with AMS. Lt hand tender and mild erythema Sepsis, sp Probable UTI UCx : lizzy Urine Cx 05/17/19 - K. pneumo Probable VAP Scx: yeast 05/25 CXR : Possibly new or increased bilateral infrahilar opacities, could represent small patchy infiltrates. Ascites no evid of SBP \ 05/25 Sp US guided paracentesis, yielding 4.1 liters of fluid Cell : Perit F cell count: 65 05/19 sp paracentesis ( no Cx or Cell count sent) AMS, sp Hepatic encephalopathy ? vs Urosepsis Leukocytosis increasing No fever Hx Gram negative bacteremia -05/03 BCx 10/04 ACHROMOBACTER XYLOSOXIDANS (S Zosyn, Ceftazidime, bactrim; R cefepime; I imipenem, Levaquin); 05/05 Bcx NTD Recurrent ascites -05/05 SP paracentesis: 3.5 L removed wbc 170 (N 49%); cx Neg - -03/11/19 sp paracentesis:fluid wbc 97 (N 34%) 05/25 Sp Extubation HTN DM Liver Cirrhosis EtOH abuse Plan: Cont Zosyn # 6, and Diflucan # 3 ( may DC AB Rx if WBC does not improve_ - 05/27 Sp Zyvox # 2 -05/24 Sp Cefazolin # 3 - 05/22/19 SP Cefepime #5 Flagyl #5 and Vancomycin #5 - Perit F Cx -Monitor CBC/CMP Subjective Allergies: Coded Allergies: No Known Allergies (Unverified , 01/31/19) Subjective afebrile Objective Vital Signs Last 24 Hour Vital Signs Date Time Temp Pulse Resp B/P (MAP) Pulse Ox O2 Delivery O2 Flow Rate FiO2 05/29/19 18:39 Nasal Cannula 1.5 05/29/19 16:00 97.5 89 20 118/70 (86) 97 05/29/19 12:00 97.9 95 18 121/73 (89) 96 05/29/19 09:00 Nasal Cannula 1.5 05/29/19 08:00 98.7 90 18 122/78 (93) 97 05/29/19 04:00 98.5 93 21 120/75 (90) 95 05/29/19 00:00 98.3 98 22 132/71 (91) 98 05/28/19 21:00 Nasal Cannula 1.5 05/28/19 20:00 97.5 89 21 121/68 (85) 96 Height (Feet): 5 Height (Inches): 0.00 Weight (Pounds): 193 HEENT: anicteric Respiratory/Chest: normal breath sounds Cardiovascular: regular rhythm Abdomen: non distended Laboratory Tests Test 05/29/19 04:35 White Blood Count 14.4 K/UL (4.8-10.8) H Red Blood Count 2.80 M/UL (4.20-5.40) L Hemoglobin 8.5 G/DL (12.0-16.0) L Hematocrit 28.6 % (37.0-47.0) L Mean Corpuscular Volume 102 FL (80-99) H Mean Corpuscular Hemoglobin 30.3 PG (27.0-31.0) Mean Corpuscular Hemoglobin Concent 29.6 G/DL (32.0-36.0) L Red Cell Distribution Width 28.9 % (11.6-14.8) H Platelet Count 108 K/UL (150-450) L Mean Platelet Volume 6.6 FL (6.5-10.1) Neutrophils (%) (Auto) 81.1 % (45.0-75.0) H Lymphocytes (%) (Auto) 8.0 % (20.0-45.0) L Monocytes (%) (Auto) 8.5 % (1.0-10.0) Eosinophils (%) (Auto) 1.5 % (0.0-3.0) Basophils (%) (Auto) 0.9 % (0.0-2.0) Sodium Level 147 MMOL/L (136-145) H Potassium Level 4.8 MMOL/L (3.5-5.1) Chloride Level 115 MMOL/L (98-107) H Carbon Dioxide Level 18 MMOL/L (21-32) L Anion Gap 14 mmol/L (5-15) Blood Urea Nitrogen 66 mg/dL (7-18) H Creatinine 2.3 MG/DL (0.55-1.30) H Estimat Glomerular Filtration Rate 21.9 mL/min (>60) Glucose Level 159 MG/DL (74-106) H Calcium Level 8.3 MG/DL (8.5-10.1) L Current Medications Medications (Trade) Dose Ordered Sig/Almaz Route PRN Reason Start Time Stop Time Status Last Admin Dose Admin Acetaminophen (Tylenol) 650 mg Q6H PRN NG Mild Pain/Temp > 100.5 05/27/19 12:30 06/26/19 12:29 Albuterol/ Ipratropium (Albuterol/ Ipratropium) 3 ml Q4H PRN HHN Shortness of Breath 05/29/19 08:15 06/03/19 08:14 Betamethasone/ Clotrimazole (Lotrisone) 1 applic TWICE A DAY TOPIC 05/26/19 18:00 06/25/19 17:59 05/29/19 17:30 Chlorhexidine Gluconate (Shannon-Hex 2%) 1 applic DAILY@2000 TOPIC 05/26/19 20:00 06/17/19 19:59 05/28/19 20:05 Dextrose 1,000 ml @ 55 mls/hr [id number] IV 05/29/19 18:15 06/28/19 18:14 05/29/19 18:18 Dextrose (Dextrose 50%) 25 ml Q30M PRN IV Hypoglycemia 05/26/19 06:45 06/16/19 21:44 Dextrose (Dextrose 50%) 50 ml Q30M PRN IV Hypoglycemia 05/26/19 06:45 06/16/19 21:44 Fluconazole/ Sodium Chloride 100 ml @ 100 mls/hr Q24H IV 05/28/19 17:00 06/04/19 16:59 05/29/19 17:26 Insulin Aspart (NovoLOG) AC+HS SUBQ 05/29/19 21:00 06/24/19 11:59 Lactulose (Cephulac) 30 gm THREE TIMES A DAY NG 05/29/19 18:00 06/17/19 10:29 Lansoprazole (Prevacid) 30 mg Q12HR NG 05/26/19 21:00 06/25/19 20:59 05/29/19 08:19 Morphine Sulfate (Morphine Sulfate) 2 mg Q4H PRN IVP Severe Pain (Pain Scale 7-10) 05/27/19 12:30 06/03/19 12:29 Ondansetron HCl (Zofran) 4 mg Q6H PRN IVP Nausea & Vomiting 05/26/19 06:45 06/16/19 06:44 Piperacillin Sod/ Tazobactam Sod 3.375 gm/Sodium Chloride 110 ml @ 27.5 mls/hr EVERY 8 HOURS IVPB 05/26/19 14:00 05/31/19 13:59 05/29/19 14:05 Rifaximin (Xifaxan) 550 mg EVERY 12 HOURS NG 05/26/19 09:00 06/01/19 23:00 05/29/19 08:20 Krzysztof Hu MD May 29, 2019 19:26
--- NOTE | 2019-05-29 19:46 | NUR ---
NURSE NOTES: Received report from CHAVA Wood. Patient asleep, breathing shallow without distress, discomfort, or sob noted on 2L O2 via NC. Patient pulled out her NG tube during the day shift. Placed on NPO except meds due to antibiotic therapy. PICC line running fluid as ordered with intact dressing on left upper arm. Patient on P200 mattress. SCDs on properly and working. Draper intact draining urine. Bilateral soft restraint placed on bilateral wrist for patient safety. Pulses present and skin intact on bilateral wrists. Bed placed at the lowest with alarm, brake, and siderails up for safety. Call light placed within reach. Will continue to monitor and provide care as ordered.
[2019-05-29] MEDS: Dyna-Hex 2% Top Sol 2oz TOPIC SCH (19:58)
[2019-05-29 20:00] VITALS: BP 109/72
[2019-05-30] VITALS: BP 115/69
[2019-05-30 04:00] VITALS: BP 122/71
[2019-05-30 04:42] LABS: HEMATOCRIT 26.6 % (37.0-47.0); MEAN CORPUSCULAR VOLUME 103 FL (80-99); PLATELET COUNT 89 K/UL (150-450); RED BLOOD COUNT 2.59 M/UL (4.20-5.40); RED CELL DISTRIBUTION WIDTH 28.5 % (11.6-14.8); WHITE BLOOD COUNT 10.7 K/UL (4.8-10.8)
[2019-05-30] MEDS: Piperacillin/Tazobactam 3.375 GM in NS 110 ML IVPB SCH ×2 (05:45→13:05)
[2019-05-30 05:47] LABS: ALANINE AMINOTRANSFERASE 8 U/L (12-78); ALBUMIN 1.1 G/DL (3.4-5.0); ALBUMIN/GLOBULIN RATIO 0.2 (1.0-2.7); ALKALINE PHOSPHATASE 168 U/L (46-116); ANION GAP 11 mmol/L (5-15); ASPARTATE AMINO TRANSFERASE 48 U/L (15-37); BILIRUBIN,TOTAL 11.7 MG/DL (0.2-1.0); BLOOD UREA NITROGEN 72 mg/dL (7-18); CARBON DIOXIDE 20 MMOL/L (21-32); CHLORIDE 116 MMOL/L (98-107); CREATININE 2.3 MG/DL (0.55-1.30); POTASSIUM 4.6 MMOL/L (3.5-5.1); SODIUM 147 MMOL/L (136-145)
[2019-05-30 05:51] LABS: BILIRUBIN,DIRECT 9.5 MG/DL (0.0-0.3)
[2019-05-30] MEDS: NovoLOG Insulin Flexpen SUBQ SCH ×4 (06:14→20:51)
--- NOTE | 2019-05-30 07:58 | NUR ---
HAND-OFF: Report given to CHAVA Shaw.
[2019-05-30 08:00] VITALS: BP 117/74
--- NOTE | 2019-05-30 08:16 | NUR ---
NURSE NOTES: Patient awake, alert x2, Sudanese speaking; PICC line Left-Upper double lumen Zosyn running; Draper drain darkish yellow urine; bilateral restrain in place; side rails up x2, breaks engaed, bed at lowest position; scd on. will keep monitoring.
[2019-05-30] MEDS: Lotrisone Cream 15gm TOPIC SCH ×2 (09:06→17:50)
[2019-05-30] MEDS: Lactulose 20gm/30ml UDC NG SCH ×3 (09:07→17:47)
--- NOTE | 2019-05-30 10:40 | NUR ---
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 * Altered nutrition related lab values R/T cirrhosis, sepsis, clinical condition as evidenced by elev T bili (11.7), elev NH3 (152 ->wnl), elev LA, elev creat (2.3). CURRENT DIET: NPO PO DIET RECOMMENDATIONS: LOW NA + CCHO LOW/ texture per UPKEEP WORKER ADDITIONAL RECOMMENDATIONS: * Calibrated bedscale wt for accurate CBW * Wound healing: add MVI x 1, VIt C 500mg QD : ZnSO4 220mg QD x 10 days * Monitor PO intake closely w/ diet order -> Glucerna BID w/ poor PO .
--- NOTE | 2019-05-30 11:31 | GI Progress Note ---
Assessment/Plan Problems: (1) Liver cirrhosis ICD Codes: K74.60 - Unspecified cirrhosis of liver SNOMED: 92250311 (2) Ascites ICD Codes: R18.8 - Other ascites SNOMED: 782942795 (3) Anemia ICD Codes: D64.9 - Anemia, unspecified SNOMED: 129177759 (4) Hepatic encephalopathy ICD Codes: K72.90 - Hepatic failure, unspecified without coma SNOMED: 93141318 (5) ETOH abuse ICD Codes: F10.10 - Alcohol abuse, uncomplicated SNOMED: 85766137 Status: unchanged Status Narrative Discussed with Dr. Torres. Assessment/Plan patient pulled NGT, repeat ST today the patient is more awake/alert lactulose cont Xifaxan neg stool ob fu H&H and transfuse prn ppi abx per ID The patient was seen and examined at bedside and all new and available data was reviewed in the patients chart. I agree with the above findings, impression and plan. (Patient seen earlier today. Signature stamp does not reflect patient encounter time.). - Jon Torres MD Subjective Gastrointestinal/Abdominal: Reports: no symptoms Subjective limited Objective Last 24 Hour Vital Signs Date Time Temp Pulse Resp B/P (MAP) Pulse Ox O2 Delivery O2 Flow Rate FiO2 05/30/19 09:00 Nasal Cannula 1.5 05/30/19 08:00 98.5 88 19 117/74 (88) 99 05/30/19 04:00 97.6 88 21 122/71 (88) 96 05/30/19 00:00 98.9 75 21 115/69 (84) 97 05/29/19 20:00 97.2 92 21 109/72 (84) 96 05/29/19 18:39 Nasal Cannula 1.5 05/29/19 16:00 97.5 89 20 118/70 (86) 97 05/29/19 12:00 97.9 95 18 121/73 (89) 96 Intake and Output 05/29/19 05/30/19 19:00 07:00 Intake Total 480 ml 3360 ml Output Total 4790 ml Balance 480 ml -1430 ml Intake Oral 120 ml Free Water 150 ml IV Total 3000 ml Tube Feeding 480 ml 60 ml Other 30 ml Output Urine Total 150 ml Stool Total 100 ml Emesis 40 ml Other 4500 ml # Voids 1 # Bowel Movements 3 2 Laboratory Tests Test 9/30/19 04:25 White Blood Count 10.7 K/UL (4.8-10.8) Red Blood Count 2.59 M/UL (4.20-5.40) L Hemoglobin 8.0 G/DL (12.0-16.0) L Hematocrit 26.6 % (37.0-47.0) L Mean Corpuscular Volume 103 FL (80-99) H Mean Corpuscular Hemoglobin 30.8 PG (27.0-31.0) Mean Corpuscular Hemoglobin Concent 30.0 G/DL (32.0-36.0) L Red Cell Distribution Width 28.5 % (11.6-14.8) H Platelet Count 89 K/UL (150-450) L Mean Platelet Volume 6.5 FL (6.5-10.1) Neutrophils (%) (Auto) % (45.0-75.0) Lymphocytes (%) (Auto) % (20.0-45.0) Monocytes (%) (Auto) % (1.0-10.0) Eosinophils (%) (Auto) % (0.0-3.0) Basophils (%) (Auto) % (0.0-2.0) Differential Total Cells Counted 100 Neutrophils % (Manual) 83 % (45-75) H Lymphocytes % (Manual) 10 % (20-45) L Monocytes % (Manual) 7 % (1-10) Eosinophils % (Manual) 0 % (0-3) Basophils % (Manual) 0 % (0-2) Band Neutrophils 0 % (0-8) Platelet Estimate Decreased L Platelet Morphology Normal Anisocytosis 2+ Macrocytosis 1+ Tear Drop Cells 3+ Sodium Level 147 MMOL/L (136-145) H Potassium Level 4.6 MMOL/L (3.5-5.1) Chloride Level 116 MMOL/L (98-107) H Carbon Dioxide Level 20 MMOL/L (21-32) L Anion Gap 11 mmol/L (5-15) Blood Urea Nitrogen 72 mg/dL (7-18) H Creatinine 2.3 MG/DL (0.55-1.30) H Estimat Glomerular Filtration Rate 21.9 mL/min (>60) Glucose Level 136 MG/DL (74-106) H Calcium Level 8.0 MG/DL (8.5-10.1) L Total Bilirubin 11.7 MG/DL (0.2-1.0) H Direct Bilirubin 9.5 MG/DL (0.0-0.3) H Aspartate Amino Transf (AST/SGOT) 48 U/L (15-37) H Alanine Aminotransferase (ALT/SGPT) 8 U/L (12-78) L Alkaline Phosphatase 168 U/L (46-116) H Ammonia 14 umol/L (11-32) Total Protein 6.0 G/DL (6.4-8.2) L Albumin 1.1 G/DL (3.4-5.0) L Globulin 4.9 g/dL Albumin/Globulin Ratio 0.2 (1.0-2.7) L Height (Feet): 5 Height (Inches): 0.00 Weight (Pounds): 193 General Appearance: no apparent distress Cardiovascular: normal rate Respiratory/Chest: normal breath sounds, no respiratory distress Abdominal Exam: normal bowel sounds, non tender, soft Extremities: non-tender Indu Lane NP May 30, 2019 11:31
[2019-05-30 12:00] VITALS: BP 138/79
--- NOTE | 2019-05-30 12:58 | Nephrology Progress Note ---
Assessment/Plan Problem List: (1) ATN (acute tubular necrosis) (2) Sepsis (3) Acute respiratory failure (4) Acute on chronic alcoholic liver disease Assessment: worsening bili (5) Anemia Assessment Renal failure- Acute On May 09, 2019 normal renal parameters Severe Anemia, Acute on chronic- Acute part from right groin attempted line insertion Severe HypoAlbuminemia, Cirrhosis, ALD, Ascites Sepsis- High lactic Acid Acute respiratory failure Previous gram negative bacteremia / Sepsis Plan extubated 05/25 Hydrate- slow K supplement as needed Antibiotics Monitor renal parameters avoid nephrotoxics transfuse as needed- per orders discussed with RN DNR Subjective ROS Limited/Unobtainable: No Constitutional: Reports: malaise Objective Objective Last 24 Hour Vital Signs Date Time Temp Pulse Resp B/P (MAP) Pulse Ox O2 Delivery O2 Flow Rate FiO2 05/30/19 09:00 Nasal Cannula 1.5 05/30/19 08:00 98.5 88 19 117/74 (88) 99 05/30/19 04:00 97.6 88 21 122/71 (88) 96 05/30/19 00:00 98.9 75 21 115/69 (84) 97 05/29/19 20:00 97.2 92 21 109/72 (84) 96 05/29/19 18:39 Nasal Cannula 1.5 05/29/19 16:00 97.5 89 20 118/70 (86) 97 Intake and Output 05/29/19 05/30/19 19:00 07:00 Intake Total 480 ml 3360 ml Output Total 4790 ml Balance 480 ml -1430 ml Intake Oral 120 ml Free Water 150 ml IV Total 3000 ml Tube Feeding 480 ml 60 ml Other 30 ml Output Urine Total 150 ml Stool Total 100 ml Emesis 40 ml Other 4500 ml # Voids 1 # Bowel Movements 3 2 Laboratory Tests 05/30/19 04:25: White Blood Count 10.7, Red Blood Count 2.59L, Hemoglobin 8.0L, Hematocrit 26.6L , Mean Corpuscular Volume 103H, Mean Corpuscular Hemoglobin 30.8, Mean Corpuscular Hemoglobin Concent 30.0L, Red Cell Distribution Width 28.5H, Platelet Count 89L, Mean Platelet Volume 6.5, Neutrophils (%) (Auto) , Lymphocytes (%) (Auto) , Monocytes (%) (Auto) , Eosinophils (%) (Auto) , Basophils (%) (Auto) , Differential Total Cells Counted 100, Neutrophils % ( Manual) 83H, Lymphocytes % (Manual) 10L, Monocytes % (Manual) 7, Eosinophils % ( Manual) 0, Basophils % (Manual) 0, Band Neutrophils 0, Platelet Estimate DecreasedL, Platelet Morphology Normal, Anisocytosis 2+, Macrocytosis 1+, Tear Drop Cells 3+, Sodium Level 147H, Potassium Level 4.6, Chloride Level 116H, Carbon Dioxide Level 20L, Anion Gap 11, Blood Urea Nitrogen 72H, Creatinine 2.3H , Estimat Glomerular Filtration Rate 21.9, Glucose Level 136H, Calcium Level 8.0L, Total Bilirubin 11.7H, Direct Bilirubin 9.5H, Aspartate Amino Transf (AST/ SGOT) 48H, Alanine Aminotransferase (ALT/SGPT) 8L, Alkaline Phosphatase 168H, Ammonia 14, Total Protein 6.0L, Albumin 1.1L, Globulin 4.9, Albumin/Globulin Ratio 0.2L Height (Feet): 5 Height (Inches): 0.00 Weight (Pounds): 193 General Appearance: other - jaundiced Cardiovascular: normal rate Respiratory/Chest: decreased breath sounds Abdomen: distended Objective no change Jovany Byers MD May 30, 2019 12:58
[2019-05-30] MEDS ORDERED: Varibar Honey 250ml MC PRN (13:00)
[2019-05-30] MEDS ORDERED: Varibar Nectar 240ml MC PRN (13:00)
[2019-05-30] MEDS ORDERED: Varibar Pudding 230ml MC PRN (13:00)
[2019-05-30] MEDS: Morphine Sulfate 2mg/ml Inj(IV/IM USE ONLY) IVP PRN (13:51)
--- NOTE | 2019-05-30 14:14 | NUR ---
NOTES: COMPLETED MODIFIED BARIUM SWALLOW STUDY, SEE FULL REPORT TO FOLLOW IN CARE ACTIVITY SECTION OR CALL [phone]. INITIAL IMPRESSIONS MILD TO MODERATE OROPHARYNGEAL DYSPHAGIA WITH INCREASED ORAL PREP AND OROPHARYNGEAL TRANSIT TIMES DUE TO SENSORIMOTOR DEFICITS THAT ARE COMPOUNDED BY SOB, FATIGUE, AND SOME PAIN. GIVEN THIN LIQUIDS TSP, TSP, CUP, STRAW ONLY TOOK ONE LARGE SIP NECTAR THICK LIQUIDS TSP, CUP NO STRAW SEQUENTIAL DUE TO PAIN ISSUE SO PROTOCOL SHORTENED. PUDDING TSP WATER SIP VIA CUP SWISH AND SWALLOW (NO COUGH) TRACE LARYNGEAL PENETRATION ABOVE VOCAL FOLDS WITH EJECTION WITH LARGE SIP OF THIN LIQUIDS VIA CUP (NEEDED MULTIPLE SWALLOWS TO CLEAR ORAL PHASE) AND DUE TO DELAYED SWALLOW AND LATE CLOSURE OF LARYNEGEAL VESTIBULE. NO ASPIRATION BUT HAS HIGH RISK AND HAS A LESS EFFICIENT SWALLOW DUE TO THE FOLLOWING COMPONENTS/DEFICITS: Oral Motor Functional Decreased oral sensation mid to chin Edentulous Oral Impairment Lip Closure Tongue Control Bolus transport/lingual motion Oral residue Initiation pharyngeal swallow (very delayed 2nd swallow to clear oral/some pharyngeal residue) Pharyngeal Impairment Soft palate elevation Laryngeal elevation (LE) Ant. hyoid excursion (AHE) Epiglottic movement Late laryngeal vestibule closure Pharyngeal stripping wave Pharyngeal segment Opening Tongue base retraction Pharyngeal residue Decreased pharyngeal sensation GROSSLY FUNCTIONAL ESOPHAGEAL PHASE IN LATERAL VIEW LIMITED DUE TO SHOULDER OBSTRUCTION OF VIEW. TRIAL TX: NO TIME FOR EFFORTFUL BREATH HOLD AND CHIN TUCK TRIAL (HAD PAIN) BUT BENEFITS FROM MORE TIME, ONE SMALL SIP VIA CUP, SAFEST WITH NECTAR THICK LIQUIDS (AND SOUP-LIKE CONSISTENCY SINCE PUREED TAKES TOO LONG AND GETS SOB), REST IF SOB. 2-3 HARD SWALLOWS (HAS SOME SPONTANEOUS HARD SWALLOWS). RECOMMENDATIONS: FOR QUALITY OF LIFE, INITIATE LIQUIFIED PUREED LIKE NECTAR THICK SOUP CONSISTENCY (TSP ONLY) AND NECTAR THICK LIQUIDS (SMALL SIP VIA CUP NO STRAW) WITH OTHER POSTED ASPIRATION AND REFLUX (HAS GERD) PRECAUTIONS AND ONE TO ONE FEEDINGS. SMALL FREQUENT MEALS AND SEND [facility] SUP PER RD PER RD LOW NA AND CCHO-LOW DIET TYPE. CONSIDER CALORIE COUNT. 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 SKILLED DYSPHAGIA MANAGEMENT AND TX
--- NOTE | 2019-05-30 14:14 | Pulmonology Progress Note ---
Assessment/Plan Problems: (1) Acute respiratory failure (2) Acute metabolic encephalopathy (3) Acute on chronic alcoholic liver disease (4) Anasarca (5) Anemia Assessment/Plan visibly icteric more awake, looks very yellow symptomatic treatment bilirubin is 11 will call hospice evaluation, considering grim prognosis. Subjective ROS Limited/Unobtainable: No Interval Events: visibly icteric Allergies: Coded Allergies: No Known Allergies (Unverified , 01/31/19) Objective Last 24 Hour Vital Signs Date Time Temp Pulse Resp B/P (MAP) Pulse Ox O2 Delivery O2 Flow Rate FiO2 05/30/19 12:00 97.9 87 18 138/79 (98) 98 05/30/19 09:00 Nasal Cannula 1.5 05/30/19 08:00 98.5 88 19 117/74 (88) 99 05/30/19 04:00 97.6 88 21 122/71 (88) 96 05/30/19 00:00 98.9 75 21 115/69 (84) 97 05/29/19 20:00 97.2 92 21 109/72 (84) 96 05/29/19 18:39 Nasal Cannula 1.5 05/29/19 16:00 97.5 89 20 118/70 (86) 97 Intake and Output 05/29/19 05/30/19 19:00 07:00 Intake Total 480 ml 3360 ml Output Total 4790 ml Balance 480 ml -1430 ml Intake Oral 120 ml Free Water 150 ml IV Total 3000 ml Tube Feeding 480 ml 60 ml Other 30 ml Output Urine Total 150 ml Stool Total 100 ml Emesis 40 ml Other 4500 ml # Voids 1 # Bowel Movements 3 2 General Appearance: WD/WN HEENT: atraumatic Respiratory/Chest: chest wall non-tender, lungs clear Breasts: no masses Cardiovascular: normal rate Abdomen: normal bowel sounds, soft, non tender 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 Lymphatic: no neck adenopathy Laboratory Tests 05/30/19 04:25: White Blood Count 10.7, Red Blood Count 2.59L, Hemoglobin 8.0L, Hematocrit 26.6L , Mean Corpuscular Volume 103H, Mean Corpuscular Hemoglobin 30.8, Mean Corpuscular Hemoglobin Concent 30.0L, Red Cell Distribution Width 28.5H, Platelet Count 89L, Mean Platelet Volume 6.5, Neutrophils (%) (Auto) , Lymphocytes (%) (Auto) , Monocytes (%) (Auto) , Eosinophils (%) (Auto) , Basophils (%) (Auto) , Differential Total Cells Counted 100, Neutrophils % ( Manual) 83H, Lymphocytes % (Manual) 10L, Monocytes % (Manual) 7, Eosinophils % ( Manual) 0, Basophils % (Manual) 0, Band Neutrophils 0, Platelet Estimate DecreasedL, Platelet Morphology Normal, Anisocytosis 2+, Macrocytosis 1+, Tear Drop Cells 3+, Sodium Level 147H, Potassium Level 4.6, Chloride Level 116H, Carbon Dioxide Level 20L, Anion Gap 11, Blood Urea Nitrogen 72H, Creatinine 2.3H , Estimat Glomerular Filtration Rate 21.9, Glucose Level 136H, Calcium Level 8.0L, Total Bilirubin 11.7H, Direct Bilirubin 9.5H, Aspartate Amino Transf (AST/ SGOT) 48H, Alanine Aminotransferase (ALT/SGPT) 8L, Alkaline Phosphatase 168H, Ammonia 14, Total Protein 6.0L, Albumin 1.1L, Globulin 4.9, Albumin/Globulin Ratio 0.2L Current Medications Medications (Trade) Dose Ordered Sig/Almaz Route PRN Reason Start Time Stop Time Status Last Admin Dose Admin Acetaminophen (Tylenol) 650 mg Q6H PRN NG Mild Pain/Temp > 100.5 05/27/19 12:30 06/26/19 12:29 Albuterol/ Ipratropium (Albuterol/ Ipratropium) 3 ml Q4H PRN HHN Shortness of Breath 05/29/19 08:15 06/03/19 08:14 Barium Sulfate (Varibar Honey) 250 ml NOW PRN MC RAD 05/30/19 13:00 06/02/19 12:56 Barium Sulfate (Varibar Fleming-Neon) 240 ml NOW PRN MC RAD 05/30/19 13:00 06/02/19 12:56 Barium Sulfate (Varibar Pudding) 230 ml NOW PRN MC RAD 05/30/19 13:00 06/02/19 12:56 Betamethasone/ Clotrimazole (Lotrisone) 1 applic TWICE A DAY TOPIC 05/26/19 18:00 06/25/19 17:59 05/30/19 09:06 Chlorhexidine Gluconate (Shannon-Hex 2%) 1 applic DAILY@1999 TOPIC 05/26/19 20:00 06/17/19 19:59 05/29/19 19:58 Dextrose 1,000 ml @ 55 mls/hr [id number] IV 05/29/19 18:15 06/28/19 18:14 05/30/19 12:29 Dextrose (Dextrose 50%) 25 ml Q30M PRN IV Hypoglycemia 05/26/19 06:45 06/16/19 21:44 Dextrose (Dextrose 50%) 50 ml Q30M PRN IV Hypoglycemia 05/26/19 06:45 06/16/19 21:44 Fluconazole/ Sodium Chloride 100 ml @ 100 mls/hr Q24H IV 05/28/19 17:00 06/04/19 16:59 05/29/19 17:26 Insulin Aspart (NovoLOG) AC+HS SUBQ 05/29/19 21:00 06/24/19 11:59 05/30/19 12:31 Lactulose (Cephulac) 30 gm THREE TIMES A DAY NG 05/29/19 18:00 06/17/19 10:29 05/30/19 12:29 Lansoprazole (Prevacid) 30 mg Q12HR NG 05/26/19 21:00 06/25/19 20:59 05/30/19 09:07 Morphine Sulfate (Morphine Sulfate) 2 mg Q4H PRN IVP Severe Pain (Pain Scale 7-10) 05/27/19 12:30 06/03/19 12:29 05/30/19 13:51 Ondansetron HCl (Zofran) 4 mg Q6H PRN IVP Nausea & Vomiting 05/26/19 06:45 06/16/19 06:44 Piperacillin Sod/ Tazobactam Sod 3.375 gm/Sodium Chloride 110 ml @ 27.5 mls/hr EVERY 8 HOURS IVPB 05/26/19 14:00 06/04/19 13:59 05/30/19 13:05 Rifaximin (Xifaxan) 550 mg EVERY 12 HOURS NG 05/26/19 09:00 06/01/19 23:00 05/30/19 09:07 Shireen Khan MD May 30, 2019 14:14
--- NOTE | 2019-05-30 14:28 | Infectious Diseases Prog Note ---
Assessment/Plan Assessment/Plan Assessment/Plan 58 yo female with PMHx of Liver cirrhosis with recurrent ascites, HTN, ETOH abuse, DM and Hepatic encephalopathy who presented to the ED on 05/17/19 with AMS. Lt hand tender and mild erythema improving Sepsis, sp Probable UTI UCx : lizzy Urine Cx 05/17/19 - K. pneumo Probable VAP Scx: yeast 05/25 CXR : Possibly new or increased bilateral infrahilar opacities, could represent small patchy infiltrates. Ascites no evid of SBP \ 05/25 Sp US guided paracentesis, yielding 4.1 liters of fluid Cell : Perit F cell count: 65 05/19 sp paracentesis ( no Cx or Cell count sent) AMS, sp Hepatic encephalopathy ? vs Urosepsis Leukocytosis , Sp No fever Hx Gram negative bacteremia -05/03 BCx 10/04 ACHROMOBACTER XYLOSOXIDANS (S Zosyn, Ceftazidime, bactrim; R cefepime; I imipenem, Levaquin); 05/05 Bcx NTD Recurrent ascites -05/05 SP paracentesis: 3.5 L removed wbc 170 (N 49%); cx Neg - -03/11/19 sp paracentesis:fluid wbc 97 (N 34%) 05/25 Sp Extubation HTN DM Liver Cirrhosis EtOH abuse Plan: cont Diflucan # 4/14 DC Zosyn # 7 - 05/27 Sp Zyvox # 2 -05/24 Sp Cefazolin # 3 - 05/22/19 SP Cefepime #5 Flagyl #5 and Vancomycin #5 - Perit F Cx -Monitor CBC/CMP Subjective Allergies: Coded Allergies: No Known Allergies (Unverified , 01/31/19) Subjective no acute event Objective Vital Signs Last 24 Hour Vital Signs Date Time Temp Pulse Resp B/P (MAP) Pulse Ox O2 Delivery O2 Flow Rate FiO2 05/30/19 12:00 97.9 87 18 138/79 (98) 98 05/30/19 09:00 Nasal Cannula 1.5 05/30/19 08:00 98.5 88 19 117/74 (88) 99 05/30/19 04:00 97.6 88 21 122/71 (88) 96 05/30/19 00:00 98.9 75 21 115/69 (84) 97 05/29/19 20:00 97.2 92 21 109/72 (84) 96 05/29/19 18:39 Nasal Cannula 1.5 05/29/19 16:00 97.5 89 20 118/70 (86) 97 Height (Feet): 5 Height (Inches): 0.00 Weight (Pounds): 193 HEENT: PERRL Respiratory/Chest: normal breath sounds Cardiovascular: normal rate Abdomen: no organomegaly Laboratory Tests Test 05/30/19 04:25 White Blood Count 10.7 K/UL (4.8-10.8) Red Blood Count 2.59 M/UL (4.20-5.40) L Hemoglobin 8.0 G/DL (12.0-16.0) L Hematocrit 26.6 % (37.0-47.0) L Mean Corpuscular Volume 103 FL (80-99) H Mean Corpuscular Hemoglobin 30.8 PG (27.0-31.0) Mean Corpuscular Hemoglobin Concent 30.0 G/DL (32.0-36.0) L Red Cell Distribution Width 28.5 % (11.6-14.8) H Platelet Count 89 K/UL (150-450) L Mean Platelet Volume 6.5 FL (6.5-10.1) Neutrophils (%) (Auto) % (45.0-75.0) Lymphocytes (%) (Auto) % (20.0-45.0) Monocytes (%) (Auto) % (1.0-10.0) Eosinophils (%) (Auto) % (0.0-3.0) Basophils (%) (Auto) % (0.0-2.0) Differential Total Cells Counted 100 Neutrophils % (Manual) 83 % (45-75) H Lymphocytes % (Manual) 10 % (20-45) L Monocytes % (Manual) 7 % (1-10) Eosinophils % (Manual) 0 % (0-3) Basophils % (Manual) 0 % (0-2) Band Neutrophils 0 % (0-8) Platelet Estimate Decreased L Platelet Morphology Normal Anisocytosis 2+ Macrocytosis 1+ Tear Drop Cells 3+ Sodium Level 147 MMOL/L (136-145) H Potassium Level 4.6 MMOL/L (3.5-5.1) Chloride Level 116 MMOL/L (98-107) H Carbon Dioxide Level 20 MMOL/L (21-32) L Anion Gap 11 mmol/L (5-15) Blood Urea Nitrogen 72 mg/dL (7-18) H Creatinine 2.3 MG/DL (0.55-1.30) H Estimat Glomerular Filtration Rate 21.9 mL/min (>60) Glucose Level 136 MG/DL (74-106) H Calcium Level 8.0 MG/DL (8.5-10.1) L Total Bilirubin 11.7 MG/DL (0.2-1.0) H Direct Bilirubin 9.5 MG/DL (0.0-0.3) H Aspartate Amino Transf (AST/SGOT) 48 U/L (15-37) H Alanine Aminotransferase (ALT/SGPT) 8 U/L (12-78) L Alkaline Phosphatase 168 U/L (46-116) H Ammonia 14 umol/L (11-32) Total Protein 6.0 G/DL (6.4-8.2) L Albumin 1.1 G/DL (3.4-5.0) L Globulin 4.9 g/dL Albumin/Globulin Ratio 0.2 (1.0-2.7) L Current Medications Medications (Trade) Dose Ordered Sig/Almaz Route PRN Reason Start Time Stop Time Status Last Admin Dose Admin Acetaminophen (Tylenol) 650 mg Q6H PRN NG Mild Pain/Temp > 100.5 05/27/19 12:30 06/26/19 12:29 Albuterol/ Ipratropium (Albuterol/ Ipratropium) 3 ml Q4H PRN HHN Shortness of Breath 05/29/19 08:15 06/03/19 08:14 Barium Sulfate (Varibar Honey) 250 ml NOW PRN MC RAD 05/30/19 13:00 06/02/19 12:56 Barium Sulfate (Varibar [place]) 240 ml NOW PRN MC RAD 05/30/19 13:00 06/02/19 12:56 Barium Sulfate (Varibar Pudding) 230 ml NOW PRN RAD 05/30/19 13:00 06/02/19 12:56 Betamethasone/ Clotrimazole (Lotrisone) 1 applic TWICE A DAY TOPIC 05/26/19 18:00 06/25/19 17:59 05/30/19 09:06 Chlorhexidine Gluconate (Shannon-Hex 2%) 1 applic DAILY@2000 TOPIC 05/26/19 20:00 06/17/19 19:59 05/29/19 19:58 Dextrose 1,000 ml @ 55 mls/hr [id number] IV 05/29/19 18:15 06/28/19 18:14 05/30/19 12:29 Dextrose (Dextrose 50%) 25 ml Q30M PRN IV Hypoglycemia 05/26/19 06:45 06/16/19 21:44 Dextrose (Dextrose 50%) 50 ml Q30M PRN IV Hypoglycemia 05/26/19 06:45 06/16/19 21:44 Fluconazole/ Sodium Chloride 100 ml @ 100 mls/hr Q24H IV 05/28/19 17:00 06/04/19 16:59 05/29/19 17:26 Insulin Aspart (NovoLOG) AC+HS SUBQ 05/29/19 21:00 06/24/19 11:59 05/30/19 12:31 Lactulose (Cephulac) 30 gm THREE TIMES A DAY NG 05/29/19 18:00 06/17/19 10:29 05/30/19 12:29 Lansoprazole (Prevacid) 30 mg Q12HR NG 05/26/19 21:00 06/25/19 20:59 05/30/19 09:07 Morphine Sulfate (Morphine Sulfate) 2 mg Q4H PRN IVP Severe Pain (Pain Scale 7-10) 05/27/19 12:30 06/03/19 12:29 05/30/19 13:51 Ondansetron HCl (Zofran) 4 mg Q6H PRN IVP Nausea & Vomiting 05/26/19 06:45 06/16/19 06:44 Piperacillin Sod/ Tazobactam Sod 3.375 gm/Sodium Chloride 110 ml @ 27.5 mls/hr EVERY 8 HOURS IVPB 05/26/19 14:00 06/04/19 13:59 05/30/19 13:05 Rifaximin (Xifaxan) 550 mg EVERY 12 HOURS NG 05/26/19 09:00 06/01/19 23:00 05/30/19 09:07 Krzysztof Hu MD May 30, 2019 14:28
--- NOTE | 2019-05-30 15:40 | NUR ---
CASE MANAGEMENT: REVIEW SI: SEPSIS. T 97.9 HR 87 RR 18 B/P 138/79 SATS 98% ON 1.5L/NC LABS: NA 147 CL 116 CO2 20 BUN 72 CR 2.3 GLU 136 CA 8 TBILI 11.7 DBILI 9.5 AST 48 ALT 8 ALP 168 IS:DEXTROSE @ 55 mL/HR XIFAXAN NG Q12H LOTRISONE TOP BID INSULIN ASPART SUBQ AC/HS FLUCONAZOLE IV Q24H CEPHULAC NG TID MED/SURG PLAN OF CARE: HOSPICE CONSULT
[2019-05-30 16:00] VITALS: BP 119/72
--- NOTE | 2019-05-30 16:49 | Surgery Progress Note ---
Surgery Progress Note Subjective Procedure Performed sepsis Additional Comments Patient seen and examined bedside. Family at bedside. Discussed care plan. She states she is doing "so-so. No nausea vomiting fever chills. Labs noted. Objective Last 24 Hour Vital Signs Date Time Temp Pulse Resp B/P (MAP) Pulse Ox O2 Delivery O2 Flow Rate FiO2 05/30/19 16:00 97.9 88 19 119/72 (88) 95 05/30/19 14:21 97.9 05/30/19 12:00 97.9 87 18 138/79 (98) 98 05/30/19 09:00 Nasal Cannula 1.5 05/30/19 08:00 98.5 88 19 117/74 (88) 99 05/30/19 04:00 97.6 88 21 122/71 (88) 96 05/30/19 00:00 98.9 75 21 115/69 (84) 97 05/29/19 20:00 97.2 92 21 109/72 (84) 96 05/29/19 18:39 Nasal Cannula 1.5 I&O Intake and Output 05/29/19 05/30/19 19:00 07:00 Intake Total 480 ml 3360 ml Output Total 4790 ml Balance 480 ml -1430 ml Intake Oral 120 ml Free Water 150 ml IV Total 3000 ml Tube Feeding 480 ml 60 ml Other 30 ml Output Urine Total 150 ml Stool Total 100 ml Emesis 40 ml Other 4500 ml # Voids 1 # Bowel Movements 3 2 Cardiovascular: RSR Respiratory: decreased breath sounds Abdomen: soft, distended, non-tender, decreased bowel sounds Extremities: no cyanosis, other - Jaundice Laboratory Tests Test 05/30/19 04:25 White Blood Count 10.7 K/UL (4.8-10.8) Red Blood Count 2.59 M/UL (4.20-5.40) L Hemoglobin 8.0 G/DL (12.0-16.0) L Hematocrit 26.6 % (37.0-47.0) L Mean Corpuscular Volume 103 FL (80-99) H Mean Corpuscular Hemoglobin 30.8 PG (27.0-31.0) Mean Corpuscular Hemoglobin Concent 30.0 G/DL (32.0-36.0) L Red Cell Distribution Width 28.5 % (11.6-14.8) H Platelet Count 89 K/UL (150-450) L Mean Platelet Volume 6.5 FL (6.5-10.1) Neutrophils (%) (Auto) % (45.0-75.0) Lymphocytes (%) (Auto) % (20.0-45.0) Monocytes (%) (Auto) % (1.0-10.0) Eosinophils (%) (Auto) % (0.0-3.0) Basophils (%) (Auto) % (0.0-2.0) Differential Total Cells Counted 100 Neutrophils % (Manual) 83 % (45-75) H Lymphocytes % (Manual) 10 % (20-45) L Monocytes % (Manual) 7 % (1-10) Eosinophils % (Manual) 0 % (0-3) Basophils % (Manual) 0 % (0-2) Band Neutrophils 0 % (0-8) Platelet Estimate Decreased L Platelet Morphology Normal Anisocytosis 2+ Macrocytosis 1+ Tear Drop Cells 3+ Sodium Level 147 MMOL/L (136-145) H Potassium Level 4.6 MMOL/L (3.5-5.1) Chloride Level 116 MMOL/L (98-107) H Carbon Dioxide Level 20 MMOL/L (21-32) L Anion Gap 11 mmol/L (5-15) Blood Urea Nitrogen 72 mg/dL (7-18) H Creatinine 2.3 MG/DL (0.55-1.30) H Estimat Glomerular Filtration Rate 21.9 mL/min (>60) Glucose Level 136 MG/DL (74-106) H Calcium Level 8.0 MG/DL (8.5-10.1) L Total Bilirubin 11.7 MG/DL (0.2-1.0) H Direct Bilirubin 9.5 MG/DL (0.0-0.3) H Aspartate Amino Transf (AST/SGOT) 48 U/L (15-37) H Alanine Aminotransferase (ALT/SGPT) 8 U/L (12-78) L Alkaline Phosphatase 168 U/L (46-116) H Ammonia 14 umol/L (11-32) Total Protein 6.0 G/DL (6.4-8.2) L Albumin 1.1 G/DL (3.4-5.0) L Globulin 4.9 g/dL Albumin/Globulin Ratio 0.2 (1.0-2.7) L Plan Problems: (1) Sacral decubitus ulcer Assessment & Plan: Pt presented on admission with icteric sclerae and skin. Moisture intertrigo Madhu/left abd folds.(1.5cm long). Moisture intertrigo R groin(8.5cm) slit noted with small amt bleeding. Mons pubis,labia majora and medial aspects of both upper thigh erythematous . Partial thickness wound noted to L thoracic. Base of wound is moist and viable. Edges flat and adherent to base of wound.No exudate noted. (L) 0.6cm x (W)0.8cm. Non-blanchable erythema sacrum,R and L buttocks with scattered shearing .Full thickness pressure injury noted to sacrococcygeal area. Base of wound is steve with small amt slough noted in center.(L) 0.7cm x (W)0.3cm. Area around wound is erythematous non-blanchable with shearing . Full thickness pressure injury R buttocks . Base of wound is moist, with Slough in center.Surrounding area erythematous and denuded. Evolving serous blister L heel.Base of wound is fluctuant with delineated,red margins.(L)3.5cm x (W)5.5cm. Periwound without erythema or fluctuance. R heel firm and blanchable. Tx.Plan: Apply Triad Paste to Sacrum and R buttocks. Cover wounds with Optifoam drsg. Change every 3 days and PRN. Apply Triad Paste to abd folds, R groin,Mons pubis, medial aspects of both upper thighs with each perineal care. Apply Optifoam drsg L thoracic wound. Cover with Optifoam drsg. Change every 3 days and prn. Apply Cavilon Skin Barrier to both heels. Cover each heel with Optifoam drsg. Change every 7 days and prn. APM/CHRISSY Mattress. Reposition at least every 2hours or as tolerated. Off-load heels with pillow (2) Liver cirrhosis Assessment & Plan: DAILY ESTIMATED NEEDS: Needs based on Cirrhosis, Critical care, sepsis/ 58kg adj 22-30 kcals/kg [id number] total kcals 1.2-2 g protein/kg 70-116 g total protein 20-25 mL/kg 3173-1983 total fluid mLs NUTRITION DIAGNOSIS: * Swallowing difficulty R/T respiratory status as evidenced by pt orally intubated, NPO at this time * Altered nutrition related lab values R/T cirrhosis, sepsis, clinical condition as evidenced by elev T bili (5.5), elev NH3 (152), elev LA (6.7), elev creat (2.4). CURRENT TF:NPO PO DIET RECOMMENDATIONS: ABATEMENT WORKER eval post extubation -> LOW NA ENTERAL NUTRITION RECOMMENDATIONS: Glucerna 1.2 @ 55ml/hr x 24 hrs to provide 1320ml, 1584kcal, 79g prot, 1063ml free water * Rec Glucerna 1.2 to maintain good BG control: h/o DM * As medically appropriate, initiate Glucerna 1.2 @ 25ml/hr x 6 hrs * Advance 10ml q 4-6 hrs as tolerated to goal rate. * HOB over 30 degrees/ water flush per MD. ADDITIONAL RECOMMENDATIONS: * Calibrated bedscale wt for accurate CBW * W/ TF, monitor need for NISS: h/o DM * F/up w/ wound eval: add Miquel 1pkt BID + VIt C 250mg QD * Monitor lytes, replete as needed . (3) Acute on chronic alcoholic liver disease (4) Sepsis Assessment & Plan: Restore insufficiency, leukocytosis, anemia, lactic acidosis , liver insufficiency, sepsis US noted and okay paracentesis PICC Continue IV antibiotics cont trend labs diet as tolerated We will monitor and follow with recommendations Efrain Whitaker May 30, 2019 16:49
[2019-05-30] MEDS: Fluconazole 200mg/100ml (Pre-Mix) IV SCH (17:47)
--- NOTE | 2019-05-30 19:41 | NUR ---
HAND-OFF: Report given to CHAVA Dia.
--- NOTE | 2019-05-30 19:50 | NUR ---
NURSE NOTES: Patient is in bed, asleep, no s/s of distress noted. Abdomen is soft round. Respiration is even and unlabored. No s/s of pain. Skin is warm and dry. Wrist restrains noted, skin intact at site. Picc line noted, will need to change dressing. Bed in low and locked position. Provided safe environment. Call light is at bedside. Will continue plan of care.
[2019-05-30 20:00] VITALS: BP 106/61
--- NOTE | 2019-05-30 20:36 | Internal Med Progress Note ---
Subjective Date of Service: May 30, 2019 Physician Name Jose Benjamin Attending Physician Goldy Amador MD Current Medications Medications (Trade) Dose Ordered Sig/Almaz Route PRN Reason Start Time Stop Time Status Last Admin Dose Admin Acetaminophen (Tylenol) 650 mg Q6H PRN NG Mild Pain/Temp > 100.5 05/27/19 12:30 06/26/19 12:29 Albuterol/ Ipratropium (Albuterol/ Ipratropium) 3 ml Q4H PRN HHN Shortness of Breath 05/29/19 08:15 06/03/19 08:14 Barium Sulfate (Varibar Honey) 250 ml NOW PRN RAD 05/30/19 13:00 06/02/19 12:56 Barium Sulfate (Varibar [place]) 240 ml NOW PRN MC RAD 05/30/19 13:00 06/02/19 12:56 Barium Sulfate (Varibar Pudding) 230 ml NOW PRN RAD 05/30/19 13:00 06/02/19 12:56 Betamethasone/ Clotrimazole (Lotrisone) 1 applic TWICE A DAY TOPIC 05/26/19 18:00 06/25/19 17:59 05/30/19 17:50 Chlorhexidine Gluconate (Shannon-Hex 2%) 1 applic DAILY@2000 TOPIC 05/26/19 20:00 06/17/19 19:59 05/29/19 19:58 Dextrose 1,000 ml @ 55 mls/hr [id number] IV 05/29/19 18:15 06/28/19 18:14 05/30/19 12:29 Dextrose (Dextrose 50%) 25 ml Q30M PRN IV Hypoglycemia 05/26/19 06:45 06/16/19 21:44 Dextrose (Dextrose 50%) 50 ml Q30M PRN IV Hypoglycemia 05/26/19 06:45 06/16/19 21:44 Fluconazole/ Sodium Chloride 100 ml @ 100 mls/hr Q24H IV 05/28/19 17:00 06/04/19 16:59 05/30/19 17:47 Insulin Aspart (NovoLOG) AC+HS SUBQ 05/29/19 21:00 06/24/19 11:59 05/30/19 17:49 Lactulose (Cephulac) 30 gm THREE TIMES A DAY NG 05/29/19 18:00 06/17/19 10:29 05/30/19 17:47 Lansoprazole (Prevacid) 30 mg Q12HR NG 05/26/19 21:00 06/25/19 20:59 05/30/19 09:07 Morphine Sulfate (Morphine Sulfate) 2 mg Q4H PRN IVP Severe Pain (Pain Scale 7-10) 05/27/19 12:30 06/03/19 12:29 05/30/19 13:51 Ondansetron HCl (Zofran) 4 mg Q6H PRN IVP Nausea & Vomiting 05/26/19 06:45 06/16/19 06:44 Rifaximin (Xifaxan) 550 mg EVERY 12 HOURS NG 05/26/19 09:00 06/01/19 23:00 05/30/19 09:07 Allergies: Coded Allergies: No Known Allergies (Unverified , 01/31/19) ROS Limited/Unobtainable: No Constitutional: Reports: no symptoms HEENT: Reports: no symptoms Cardiovascular: Reports: no symptoms Respiratory: Reports: no symptoms Gastrointestinal/Abdominal: Reports: no symptoms Genitourinary: Reports: no symptoms Neurologic/Psychiatric: Reports: no symptoms Subjective 58 YO F admitted with respiratory failure and presumed septic shock. Now UTI. Cover for Int Med-Dr Amador. Extubated 05/25/19. S/P paracentesis 05/25/19 Objective Last Vital Signs Date Time Temp Pulse Resp B/P (MAP) Pulse Ox O2 Delivery O2 Flow Rate FiO2 05/30/19 20:00 97.7 87 22 106/61 (76) 96 05/30/19 09:00 Nasal Cannula 1.5 05/26/19 06:30 28 Laboratory Tests Test 05/30/19 04:25 White Blood Count 10.7 K/UL (4.8-10.8) Red Blood Count 2.59 M/UL (4.20-5.40) L Hemoglobin 8.0 G/DL (12.0-16.0) L Hematocrit 26.6 % (37.0-47.0) L Mean Corpuscular Volume 103 FL (80-99) H Mean Corpuscular Hemoglobin 30.8 PG (27.0-31.0) Mean Corpuscular Hemoglobin Concent 30.0 G/DL (32.0-36.0) L Red Cell Distribution Width 28.5 % (11.6-14.8) H Platelet Count 89 K/UL (150-450) L Mean Platelet Volume 6.5 FL (6.5-10.1) Neutrophils (%) (Auto) % (45.0-75.0) Lymphocytes (%) (Auto) % (20.0-45.0) Monocytes (%) (Auto) % (1.0-10.0) Eosinophils (%) (Auto) % (0.0-3.0) Basophils (%) (Auto) % (0.0-2.0) Differential Total Cells Counted 100 Neutrophils % (Manual) 83 % (45-75) H Lymphocytes % (Manual) 10 % (20-45) L Monocytes % (Manual) 7 % (1-10) Eosinophils % (Manual) 0 % (0-3) Basophils % (Manual) 0 % (0-2) Band Neutrophils 0 % (0-8) Platelet Estimate Decreased L Platelet Morphology Normal Anisocytosis 2+ Macrocytosis 1+ Tear Drop Cells 3+ Sodium Level 147 MMOL/L (136-145) H Potassium Level 4.6 MMOL/L (3.5-5.1) Chloride Level 116 MMOL/L (98-107) H Carbon Dioxide Level 20 MMOL/L (21-32) L Anion Gap 11 mmol/L (5-15) Blood Urea Nitrogen 72 mg/dL (7-18) H Creatinine 2.3 MG/DL (0.55-1.30) H Estimat Glomerular Filtration Rate 21.9 mL/min (>60) Glucose Level 136 MG/DL (74-106) H Calcium Level 8.0 MG/DL (8.5-10.1) L Total Bilirubin 11.7 MG/DL (0.2-1.0) H Direct Bilirubin 9.5 MG/DL (0.0-0.3) H Aspartate Amino Transf (AST/SGOT) 48 U/L (15-37) H Alanine Aminotransferase (ALT/SGPT) 8 U/L (12-78) L Alkaline Phosphatase 168 U/L (46-116) H Ammonia 14 umol/L (11-32) Total Protein 6.0 G/DL (6.4-8.2) L Albumin 1.1 G/DL (3.4-5.0) L Globulin 4.9 g/dL Albumin/Globulin Ratio 0.2 (1.0-2.7) L Intake and Output 05/29/19 05/30/19 19:00 07:00 Intake Total 480 ml 3360 ml Output Total 4790 ml Balance 480 ml -1430 ml Intake Oral 120 ml Free Water 150 ml IV Total 3000 ml Tube Feeding 480 ml 60 ml Other 30 ml Output Urine Total 150 ml Stool Total 100 ml Emesis 40 ml Other 4500 ml # Voids 1 # Bowel Movements 3 2 Objective PHYSICAL EXAMINATION: GENERAL: The patient is a well-developed and well-nourished obese female, who is intubated and sedated. HEENT: Eyes, pupils are equal and responsive to light and accommodation. Extraocular movements are intact. NECK: Supple without lymphadenopathy. CHEST: nasal canula; Coarse upper breath sounds, otherwise without wheezes or rales. CARDIOVASCULAR: Regular rhythm, rate. S1, S2 normal without murmurs, rubs, or gallops. ABDOMEN: Soft, distended with decreased bowel sounds. No evidence of hepatosplenomegaly. Currently, no rebound or guarding noted. EXTREMITIES: Negative for clubbing, cyanosis, or edema. RECTAL/GENITAL: Not performed. NEUROLOGICAL: Unable to assess. Assessment/Plan Assessment/Plan ASSESSMENT: This is a 58-year-old female. 1. Respiratory failure. 2. Urinary tract infection=klebsiella pneumoniae 3. Probable sepsis. 4. Probable septic shock. 5. Alcoholic cirrhosis of the liver. 6. Hypertension. 7. Diabetes type 2. 8. Ascites. 9. Hypercholesterolemia. TREATMENT: 1. Respiratory failure. A Pulmonary consultation has been obtained with Dr. Shireen Khan. Sputum=lizzy and klebsiella. We will follow recommendations of Pulmonary. 2. Urinary tract infection. An Infectious Disease consultation has been obtained with Dr. Hu. ABX=zosyn and fluconazole Urine culture=klebsiella 3. Probable sepsis-increased WBC. See ID note 4. Septic shock. 5. Alcoholic cirrhosis of liver. A Gastroenterology consultation has been obtained with Dr. Jon Torres. S/P paracentesis 05/19/19 6. Hypertension. The patient is currently hypotensive. Hold all antihypertensive medications. 7. Diabetes type 2. A NovoLog sliding scale has been instituted. 8. Ascites, as above. A Gastroenterology consultation has been obtained with Dr. Jon Torres. S/P paracentesis 05/19/19 and 05/25/19 9. Hypercholesterolemia. Jose Benjamin MD May 30, 2019 20:35
[2019-05-30] MEDS: Dyna-Hex 2% Top Sol 2oz TOPIC SCH (20:49)
[2019-05-31] VITALS: BP 125/70
[2019-05-31 04:00] VITALS: BP 112/69
[2019-05-31] MEDS: NovoLOG Insulin Flexpen SUBQ SCH ×4 (06:05→20:49)
[2019-05-31 06:20] LABS: HEMATOCRIT 25.6 % (37.0-47.0); HEMOGLOBIN 7.6 G/DL (12.0-16.0); MEAN CORPUSCULAR VOLUME 104 FL (80-99); PLATELET COUNT 93 K/UL (150-450); RED BLOOD COUNT 2.46 M/UL (4.20-5.40); RED CELL DISTRIBUTION WIDTH 27.9 % (11.6-14.8); WHITE BLOOD COUNT 9.7 K/UL (4.8-10.8)
[2019-05-31 06:40] LABS: ANION GAP 14 mmol/L (5-15); BLOOD UREA NITROGEN 75 mg/dL (7-18); CALCIUM 8.2 MG/DL (8.5-10.1); CARBON DIOXIDE 18 MMOL/L (21-32); CHLORIDE 114 MMOL/L (98-107); CREATININE 2.3 MG/DL (0.55-1.30); POTASSIUM 3.9 MMOL/L (3.5-5.1); SODIUM 145 MMOL/L (136-145)
--- NOTE | 2019-05-31 07:04 | NUR ---
HAND-OFF: Report given to CHAVA Shaw.
--- NOTE | 2019-05-31 07:12 | NUR ---
NURSE NOTES: Patient awake, alert x3; on nasal cannula 2 Liter, no sing of distress and shortness of breath; no sing of chest pain; Draper in place drains dark yellowish urine; bilateral restrain in place; PICC line double lumen on Left-Upper arm runs fluid; Abdominal ascites; side rails up x2, breaks engaged, bed at lowest position; will check blood sugar as scheduled; will keep monitoring.
--- NOTE | 2019-05-31 07:24 | General Progress Note ---
Assessment/Plan Problem List: (1) Liver cirrhosis ICD Codes: K74.60 - Unspecified cirrhosis of liver SNOMED: 99826658 (2) Sepsis ICD Codes: A41.9 - Sepsis, unspecified organism SNOMED: 28570088 Qualifiers: Qualified Codes: A41.9 - Sepsis, unspecified organism (3) Anasarca ICD Codes: R60.1 - Generalized edema SNOMED: 166020989, 220897191 (4) Ascites ICD Codes: R18.8 - Other ascites SNOMED: 511224440 (5) Anemia ICD Codes: D64.9 - Anemia, unspecified SNOMED: 728617115 (6) Hepatic encephalopathy ICD Codes: K72.90 - Hepatic failure, unspecified without coma SNOMED: 16803428 (7) Acute respiratory failure ICD Codes: J96.00 - Acute respiratory failure, unspecified whether with hypoxia or hypercapnia SNOMED: 06496093 (8) ETOH abuse ICD Codes: F10.10 - Alcohol abuse, uncomplicated SNOMED: 20032264 Status: unchanged Assessment/Plan: lactulose >> decrease by half cont Xifaxan neg stool ob fu H&H and transfuse prn ppi abx per ID speech eval appreciated on puree diet plan EGD tomorrowe for esophageal varices evaluation, anemia and dysphagia Subjective ROS Limited/Unobtainable: Yes Allergies: Coded Allergies: No Known Allergies (Unverified , 01/31/19) Objective Last 24 Hour Vital Signs Date Time Temp Pulse Resp B/P (MAP) Pulse Ox O2 Delivery O2 Flow Rate FiO2 05/31/19 04:00 97.4 87 16 112/69 (83) 96 05/31/19 00:00 97.7 86 16 125/70 (88) 98 05/30/19 20:34 Nasal Cannula 2.0 05/30/19 20:00 97.7 87 22 106/61 (76) 96 05/30/19 16:00 97.9 88 19 119/72 (88) 95 05/30/19 14:21 97.9 05/30/19 12:00 97.9 87 18 138/79 (98) 98 05/30/19 09:00 Nasal Cannula 1.5 05/30/19 08:00 98.5 88 19 117/74 (88) 99 Intake and Output 05/30/19 05/31/19 18:59 06:59 Intake Total 485 ml 660 ml Output Total 250 ml Balance 485 ml 410 ml IV Total 485 ml 660 ml Output Urine Total 250 ml # Voids 1 # Bowel Movements 2 4 Laboratory Tests 05/31/19 05:00: White Blood Count 9.7, Red Blood Count 2.46L, Hemoglobin 7.6L, Hematocrit 25.6L , Mean Corpuscular Volume 104H, Mean Corpuscular Hemoglobin 30.9, Mean Corpuscular Hemoglobin Concent 29.6L, Red Cell Distribution Width 27.9H, Platelet Count 93L, Mean Platelet Volume 6.0L, Neutrophils (%) (Auto) , Lymphocytes (%) (Auto) , Monocytes (%) (Auto) , Eosinophils (%) (Auto) , Basophils (%) (Auto) , Neutrophils % (Manual) [Pending], Lymphocytes % (Manual) [Pending], Platelet Estimate [Pending], Platelet Morphology [Pending], Sodium Level 145, Potassium Level 3.9, Chloride Level 114H, Carbon Dioxide Level 18L, Anion Gap 14, Blood Urea Nitrogen 75H, Creatinine 2.3H, Estimat Glomerular Filtration Rate 21.9, Glucose Level 141H, Calcium Level 8.2L Height (Feet): 5 Height (Inches): 0.00 Weight (Pounds): 205 General Appearance: alert EENT: normal ENT inspection Neck: supple Cardiovascular: normal rate Respiratory/Chest: decreased breath sounds Abdomen: normal bowel sounds, soft, hypoactive bowel sounds, tender Extremities: non-tender Jon Torres MD May 31, 2019 07:24
[2019-05-31 08:00] VITALS: BP 104/59
[2019-05-31] MEDS: Lactulose 20gm/30ml UDC ORAL SCH ×3 (08:32→17:19)
[2019-05-31] MEDS: Lotrisone Cream 15gm TOPIC SCH ×2 (08:32→17:19)
--- NOTE | 2019-05-31 10:53 | NUR ---
CHARGE NURSE NOTE: H@H . was called, message left.
--- NOTE | 2019-05-31 10:58 | Surgery Progress Note ---
Surgery Progress Note Subjective Procedure Performed sepsis Additional Comments on diet comfortable pending scope tomorrow labs stable exam unchanged jaundice spoke with pharmacy to discuss 4-part cream (zinc ox, nystatin, kenalog, lido) Objective Last 24 Hour Vital Signs Date Time Temp Pulse Resp B/P (MAP) Pulse Ox O2 Delivery O2 Flow Rate FiO2 05/31/19 09:00 Nasal Cannula 2.0 05/31/19 08:00 97.3 85 17 104/59 (74) 96 05/31/19 04:00 97.4 87 16 112/69 (83) 96 05/31/19 00:00 97.7 86 16 125/70 (88) 98 05/30/19 20:34 Nasal Cannula 2.0 05/30/19 20:00 97.7 87 22 106/61 (76) 96 05/30/19 16:00 97.9 88 19 119/72 (88) 95 05/30/19 14:21 97.9 05/30/19 12:00 97.9 87 18 138/79 (98) 98 I&O Intake and Output 05/30/19 05/31/19 19:00 07:00 Intake Total 485 ml 660 ml Output Total 250 ml Balance 485 ml 410 ml IV Total 485 ml 660 ml Output Urine Total 250 ml # Voids 1 # Bowel Movements 2 4 Dressing: saturated Wound: clean Cardiovascular: RSR Respiratory: clear Abdomen: soft, non-tender, present bowel sounds, decreased bowel sounds Extremities: no cyanosis Laboratory Tests Test 05/31/19 05:00 White Blood Count 9.7 K/UL (4.8-10.8) Red Blood Count 2.46 M/UL (4.20-5.40) L Hemoglobin 7.6 G/DL (12.0-16.0) L Hematocrit 25.6 % (37.0-47.0) L Mean Corpuscular Volume 104 FL (80-99) H Mean Corpuscular Hemoglobin 30.9 PG (27.0-31.0) Mean Corpuscular Hemoglobin Concent 29.6 G/DL (32.0-36.0) L Red Cell Distribution Width 27.9 % (11.6-14.8) H Platelet Count 93 K/UL (150-450) L Mean Platelet Volume 6.0 FL (6.5-10.1) L Neutrophils (%) (Auto) % (45.0-75.0) Lymphocytes (%) (Auto) % (20.0-45.0) Monocytes (%) (Auto) % (1.0-10.0) Eosinophils (%) (Auto) % (0.0-3.0) Basophils (%) (Auto) % (0.0-2.0) Differential Total Cells Counted 100 Neutrophils % (Manual) 91 % (45-75) H Lymphocytes % (Manual) 7 % (20-45) L Monocytes % (Manual) 1 % (1-10) Eosinophils % (Manual) 1 % (0-3) Basophils % (Manual) 0 % (0-2) Band Neutrophils 0 % (0-8) Nucleated Red Blood Cells 1 /100 WBC Platelet Estimate Decreased L Platelet Morphology Normal Anisocytosis 2+ Sodium Level 145 MMOL/L (136-145) Potassium Level 3.9 MMOL/L (3.5-5.1) Chloride Level 114 MMOL/L (98-107) H Carbon Dioxide Level 18 MMOL/L (21-32) L Anion Gap 14 mmol/L (5-15) Blood Urea Nitrogen 75 mg/dL (7-18) H Creatinine 2.3 MG/DL (0.55-1.30) H Estimat Glomerular Filtration Rate 21.9 mL/min (>60) Glucose Level 141 MG/DL (74-106) H Calcium Level 8.2 MG/DL (8.5-10.1) L Plan Problems: (1) Sacral decubitus ulcer Assessment & Plan: Pt presented on admission with icteric sclerae and skin. Moisture intertrigo Madhu/left abd folds.(1.5cm long). Moisture intertrigo R groin(8.5cm) slit noted with small amt bleeding. Mons pubis,labia majora and medial aspects of both upper thigh erythematous . Partial thickness wound noted to L thoracic. Base of wound is moist and viable. Edges flat and adherent to base of wound.No exudate noted. (L) 0.6cm x (W)0.8cm. Non-blanchable erythema sacrum,R and L buttocks with scattered shearing .Full thickness pressure injury noted to sacrococcygeal area. Base of wound is steve with small amt slough noted in center.(L) 0.7cm x (W)0.3cm. Area around wound is erythematous non-blanchable with shearing . Full thickness pressure injury R buttocks . Base of wound is moist, with Slough in center.Surrounding area erythematous and denuded. Evolving serous blister L heel.Base of wound is fluctuant with delineated,red margins.(L)3.5cm x (W)5.5cm. Periwound without erythema or fluctuance. R heel firm and blanchable. Tx.Plan: Apply Triad Paste to Sacrum and R buttocks. Cover wounds with Optifoam drsg. Change every 3 days and PRN. Apply Triad Paste to abd folds, R groin,Mons pubis, medial aspects of both upper thighs with each perineal care. Apply Optifoam drsg L thoracic wound. Cover with Optifoam drsg. Change every 3 days and prn. Apply Cavilon Skin Barrier to both heels. Cover each heel with Optifoam drsg. Change every 7 days and prn. APM/CHRISSY Mattress. Reposition at least every 2hours or as tolerated. Off-load heels with pillow (2) Liver cirrhosis Assessment & Plan: DAILY ESTIMATED NEEDS: Needs based on Cirrhosis, Critical care, sepsis/ 58kg adj 22-30 kcals/kg [id number] total kcals 1.2-2 g protein/kg 70-116 g total protein 20-25 mL/kg 3172-6140 total fluid mLs NUTRITION DIAGNOSIS: * Swallowing difficulty R/T respiratory status as evidenced by pt orally intubated, NPO at this time * Altered nutrition related lab values R/T cirrhosis, sepsis, clinical condition as evidenced by elev T bili (5.5), elev NH3 (152), elev LA (6.7), elev creat (2.4). CURRENT TF:NPO PO DIET RECOMMENDATIONS: [employer] eval post extubation -> LOW NA ENTERAL NUTRITION RECOMMENDATIONS: Glucerna 1.2 @ 55ml/hr x 24 hrs to provide 1320ml, 1584kcal, 79g prot, 1063ml free water * Rec Glucerna 1.2 to maintain good BG control: h/o DM * As medically appropriate, initiate Glucerna 1.2 @ 25ml/hr x 6 hrs * Advance 10ml q 4-6 hrs as tolerated to goal rate. * HOB over 30 degrees/ water flush per MD. ADDITIONAL RECOMMENDATIONS: * Calibrated bedscale wt for accurate CBW * W/ TF, monitor need for NISS: h/o DM * F/up w/ wound eval: add Miquel 1pkt BID + VIt C 250mg QD * Monitor lytes, replete as needed . (3) Acute on chronic alcoholic liver disease (4) Sepsis Assessment & Plan: Restore insufficiency, leukocytosis, anemia, lactic acidosis , liver insufficiency, sepsis US noted and okay paracentesis PICC Continue IV antibiotics cont trend labs diet as tolerated We will monitor and follow with recommendations Additional Comments will work on cream for skin Efrain Whitaker May 31, 2019 10:58
[2019-05-31] MEDS ORDERED: Zinc Oxide Oint 2oz TOPIC PRN (11:15)
[2019-05-31] MEDS ORDERED: Triamcinolone 0.5% Cr 15gm TOPIC PRN (11:15)
--- NOTE | 2019-05-31 11:45 | Nephrology Progress Note ---
Assessment/Plan Problem List: (1) ATN (acute tubular necrosis) (2) Sepsis (3) Acute respiratory failure (4) Acute on chronic alcoholic liver disease Assessment: worsening bili (5) Anemia Assessment Renal failure- Acute On May 09, 2019 normal renal parameters Severe Anemia, Acute on chronic- Acute part from right groin attempted line insertion Severe HypoAlbuminemia, Cirrhosis, ALD, Ascites Sepsis- High lactic Acid Acute respiratory failure Previous gram negative bacteremia / Sepsis Plan extubated 05/25 Hydrate- slow K supplement as needed Antibiotics Monitor renal parameters avoid nephrotoxics transfuse as needed- per orders discussed with RN DNR Subjective ROS Limited/Unobtainable: No Constitutional: Reports: malaise, weakness Objective Objective Last 24 Hour Vital Signs Date Time Temp Pulse Resp B/P (MAP) Pulse Ox O2 Delivery O2 Flow Rate FiO2 05/31/19 09:00 Nasal Cannula 2.0 05/31/19 08:00 97.3 85 17 104/59 (74) 96 05/31/19 04:00 97.4 87 16 112/69 (83) 96 05/31/19 00:00 97.7 86 16 125/70 (88) 98 05/30/19 20:34 Nasal Cannula 2.0 05/30/19 20:00 97.7 87 22 106/61 (76) 96 05/30/19 16:00 97.9 88 19 119/72 (88) 95 05/30/19 14:21 97.9 05/30/19 12:00 97.9 87 18 138/79 (98) 98 Intake and Output 05/30/19 05/31/19 19:00 07:00 Intake Total 485 ml 660 ml Output Total 250 ml Balance 485 ml 410 ml IV Total 485 ml 660 ml Output Urine Total 250 ml # Voids 1 # Bowel Movements 2 4 Laboratory Tests 05/31/19 05:00: White Blood Count 9.7, Red Blood Count 2.46L, Hemoglobin 7.6L, Hematocrit 25.6L , Mean Corpuscular Volume 104H, Mean Corpuscular Hemoglobin 30.9, Mean Corpuscular Hemoglobin Concent 29.6L, Red Cell Distribution Width 27.9H, Platelet Count 93L, Mean Platelet Volume 6.0L, Neutrophils (%) (Auto) , Lymphocytes (%) (Auto) , Monocytes (%) (Auto) , Eosinophils (%) (Auto) , Basophils (%) (Auto) , Differential Total Cells Counted 100, Neutrophils % ( Manual) 91H, Lymphocytes % (Manual) 7L, Monocytes % (Manual) 1, Eosinophils % ( Manual) 1, Basophils % (Manual) 0, Band Neutrophils 0, Nucleated Red Blood Cells 1, Platelet Estimate DecreasedL, Platelet Morphology Normal, Anisocytosis 2+, Sodium Level 145, Potassium Level 3.9, Chloride Level 114H, Carbon Dioxide Level 18L, Anion Gap 14, Blood Urea Nitrogen 75H, Creatinine 2.3H, Estimat Glomerular Filtration Rate 21.9, Glucose Level 141H, Calcium Level 8.2L Height (Feet): 5 Height (Inches): 0.00 Weight (Pounds): 205 General Appearance: no apparent distress, lethargic EENT: other - jaundiced Cardiovascular: normal rate Respiratory/Chest: decreased breath sounds Abdomen: distended Objective no change Jovany Byers MD May 31, 2019 11:45
[2019-05-31 12:00] VITALS: BP 118/67
--- NOTE | 2019-05-31 12:04 | Infectious Diseases Prog Note ---
Assessment/Plan Assessment/Plan Assessment/Plan 58 yo female with PMHx of Liver cirrhosis with recurrent ascites, HTN, ETOH abuse, DM and Hepatic encephalopathy who presented to the ED on 05/17/19 with AMS. Lt hand tender and mild erythema , Sp Sepsis, sp Probable UTI UCx : lizzy Urine Cx 05/17/19 - K. pneumo Probable VAP Scx: yeast 05/25 CXR : Possibly new or increased bilateral infrahilar opacities, could represent small patchy infiltrates. Ascites no evid of SBP \ 05/25 Sp US guided paracentesis, yielding 4.1 liters of fluid Cell : Perit F cell count: 65 05/19 sp paracentesis ( no Cx or Cell count sent) AMS, sp Hepatic encephalopathy ? vs Urosepsis Leukocytosis , Sp No fever Hx Gram negative bacteremia -05/03 BCx / ACHROMOBACTER XYLOSOXIDANS (S Zosyn, Ceftazidime, bactrim; R cefepime; I imipenem, Levaquin); 05/05 Bcx NTD Recurrent ascites -05/05 SP paracentesis: 3.5 L removed wbc 170 (N 49%); cx Neg - -03/11/19 sp paracentesis:fluid wbc 97 (N 34%) 05/25 Sp Extubation HTN DM Liver Cirrhosis EtOH abuse Plan: cont Diflucan # 5/14, upon DC will change to po cont the course DC Zosyn # 7 - 05/27 Sp Zyvox # 2 -05/24 Sp Cefazolin # 3 - 05/22/19 SP Cefepime #5 Flagyl #5 and Vancomycin #5 -Monitor CBC/CMP Subjective Allergies: Coded Allergies: No Known Allergies (Unverified , 01/31/19) Subjective no acute event Objective Vital Signs Last 24 Hour Vital Signs Date Time Temp Pulse Resp B/P (MAP) Pulse Ox O2 Delivery O2 Flow Rate FiO2 05/31/19 11:42 92 24 98 Nasal Cannula 2.0 28 05/31/19 09:00 Nasal Cannula 2.0 05/31/19 08:00 97.3 85 17 104/59 (74) 96 05/31/19 04:00 97.4 87 16 112/69 (83) 96 05/31/19 00:00 97.7 86 16 125/70 (88) 98 9/30/19 20:34 Nasal Cannula 2.0 05/30/19 20:00 97.7 87 22 106/61 (76) 96 05/30/19 16:00 97.9 88 19 119/72 (88) 95 05/30/19 14:21 97.9 Height (Feet): 5 Height (Inches): 0.00 Weight (Pounds): 205 HEENT: mucous membranes moist Respiratory/Chest: lungs clear Cardiovascular: normal rate Abdomen: non distended Laboratory Tests Test 05/31/19 05:00 White Blood Count 9.7 K/UL (4.8-10.8) Red Blood Count 2.46 M/UL (4.20-5.40) L Hemoglobin 7.6 G/DL (12.0-16.0) L Hematocrit 25.6 % (37.0-47.0) L Mean Corpuscular Volume 104 FL (80-99) H Mean Corpuscular Hemoglobin 30.9 PG (27.0-31.0) Mean Corpuscular Hemoglobin Concent 29.6 G/DL (32.0-36.0) L Red Cell Distribution Width 27.9 % (11.6-14.8) H Platelet Count 93 K/UL (150-450) L Mean Platelet Volume 6.0 FL (6.5-10.1) L Neutrophils (%) (Auto) % (45.0-75.0) Lymphocytes (%) (Auto) % (20.0-45.0) Monocytes (%) (Auto) % (1.0-10.0) Eosinophils (%) (Auto) % (0.0-3.0) Basophils (%) (Auto) % (0.0-2.0) Differential Total Cells Counted 100 Neutrophils % (Manual) 91 % (45-75) H Lymphocytes % (Manual) 7 % (20-45) L Monocytes % (Manual) 1 % (1-10) Eosinophils % (Manual) 1 % (0-3) Basophils % (Manual) 0 % (0-2) Band Neutrophils 0 % (0-8) Nucleated Red Blood Cells 1 /100 WBC Platelet Estimate Decreased L Platelet Morphology Normal Anisocytosis 2+ Sodium Level 145 MMOL/L (136-145) Potassium Level 3.9 MMOL/L (3.5-5.1) Chloride Level 114 MMOL/L (98-107) H Carbon Dioxide Level 18 MMOL/L (21-32) L Anion Gap 14 mmol/L (5-15) Blood Urea Nitrogen 75 mg/dL (7-18) H Creatinine 2.3 MG/DL (0.55-1.30) H Estimat Glomerular Filtration Rate 21.9 mL/min (>60) Glucose Level 141 MG/DL (74-106) H Calcium Level 8.2 MG/DL (8.5-10.1) L Current Medications Medications (Trade) Dose Ordered Sig/Almaz Route PRN Reason Start Time Stop Time Status Last Admin Dose Admin Acetaminophen (Tylenol) 650 mg Q6H PRN NG Mild Pain/Temp > 100.5 05/27/19 12:30 06/26/19 12:29 Albuterol/ Ipratropium (Albuterol/ Ipratropium) 3 ml Q4H PRN HHN Shortness of Breath 05/29/19 08:15 06/03/19 08:14 Barium Sulfate (Varibar Honey) 250 ml NOW PRN MC RAD 05/30/19 13:00 06/02/19 12:56 Barium Sulfate (Varibar Salley) 240 ml NOW PRN MC RAD 05/30/19 13:00 06/02/19 12:56 Barium Sulfate (Varibar Pudding) 230 ml NOW PRN RAD 05/30/19 13:00 06/02/19 12:56 Betamethasone/ Clotrimazole (Lotrisone) 1 applic TWICE A DAY TOPIC 05/26/19 18:00 06/25/19 17:59 05/31/19 08:32 Chlorhexidine Gluconate (Shannon-Hex 2%) 1 applic DAILY@2000 TOPIC 05/26/19 20:00 06/17/19 19:59 05/30/19 20:49 Dextrose 1,000 ml @ 55 mls/hr [id number] IV 05/29/19 18:15 06/28/19 18:14 05/31/19 06:02 Dextrose (Dextrose 50%) 25 ml Q30M PRN IV Hypoglycemia 05/26/19 06:45 06/16/19 21:44 Dextrose (Dextrose 50%) 50 ml Q30M PRN IV Hypoglycemia 05/26/19 06:45 06/16/19 21:44 Fluconazole/ Sodium Chloride 100 ml @ 100 mls/hr Q24H IV 05/28/19 17:00 06/04/19 16:59 05/30/19 17:47 Insulin Aspart (NovoLOG) AC+HS SUBQ 05/29/19 21:00 06/24/19 11:59 05/31/19 11:55 Lactulose (Cephulac) 15 gm THREE TIMES A DAY ORAL 05/31/19 09:00 06/17/19 10:29 05/31/19 11:56 Lansoprazole (Prevacid) 30 mg Q12HR NG 05/26/19 21:00 06/25/19 20:59 05/31/19 08:32 Lidocaine (Xylocaine 5% cream) 1 applic DAILYPRN PRN TOPIC skin breakdown 05/31/19 11:15 06/30/19 11:14 Morphine Sulfate (Morphine Sulfate) 2 mg Q4H PRN IVP Severe Pain (Pain Scale 7-10) 05/27/19 12:30 06/03/19 12:29 05/30/19 13:51 Nystatin (Nystatin Cr) 1 applic DAILYPRN PRN TOPIC skin breakdown 05/31/19 11:15 06/30/19 11:14 Ondansetron HCl (Zofran) 4 mg Q6H PRN IVP Nausea & Vomiting 05/26/19 06:45 06/16/19 06:44 Rifaximin (Xifaxan) 550 mg EVERY 12 HOURS NG 05/26/19 09:00 06/01/19 23:00 05/31/19 08:32 Triamcinolone Acetonide (Kenalog 0.5% Cr) 1 applic DAILYPRN PRN TOPIC skin breakdown 05/31/19 11:15 06/30/19 11:14 Zinc Oxide (Zinc Oxide) 1 applic DAILYPRN PRN TOPIC skin breakdown 05/31/19 11:15 06/30/19 11:14 Krzysztof Hu MD May 31, 2019 12:04
--- NOTE | 2019-05-31 13:29 | Pulmonology Progress Note ---
Assessment/Plan Problems: (1) End of life care (2) Acute respiratory failure (3) Acute metabolic encephalopathy (4) Acute on chronic alcoholic liver disease (5) Anasarca (6) Anemia (7) Thrombocytopenia (8) Coagulopathy (9) Sacral decubitus ulcer (10) ETOH abuse Assessment/Plan visibly icteric more awake, looks very yellow symptomatic treatment bilirubin is 11 will call hospice evaluation, considering grim prognosis. Claude in [place] agreed with hospice. He needs to talk with other son, Matteo to make the final decision. Subjective Interval Events: awake, more icteric Allergies: Coded Allergies: No Known Allergies (Unverified , 01/31/19) Objective Last 24 Hour Vital Signs Date Time Temp Pulse Resp B/P (MAP) Pulse Ox O2 Delivery O2 Flow Rate FiO2 05/31/19 12:00 97.8 87 20 118/67 (84) 96 05/31/19 11:42 92 24 98 Nasal Cannula 2.0 28 05/31/19 09:00 Nasal Cannula 2.0 05/31/19 08:00 97.3 85 17 104/59 (74) 96 05/31/19 04:00 97.4 87 16 112/69 (83) 96 05/31/19 00:00 97.7 86 16 125/70 (88) 98 05/30/19 20:34 Nasal Cannula 2.0 05/30/19 20:00 97.7 87 22 106/61 (76) 96 05/30/19 16:00 97.9 88 19 119/72 (88) 95 05/30/19 14:21 97.9 Intake and Output 05/30/19 05/31/19 19:00 07:00 Intake Total 485 ml 660 ml Output Total 250 ml Balance 485 ml 410 ml IV Total 485 ml 660 ml Output Urine Total 250 ml # Voids 1 # Bowel Movements 2 4 General Appearance: WD/WN HEENT: normocephalic, atraumatic Respiratory/Chest: chest wall non-tender, lungs clear Cardiovascular: normal peripheral pulses, no gallop/murmur Abdomen: normal bowel sounds, no organomegaly Genitourinary: normal external genitalia Extremities: no clubbing Skin: no lesions Laboratory Tests 05/31/19 05:00: White Blood Count 9.7, Red Blood Count 2.46L, Hemoglobin 7.6L, Hematocrit 25.6L , Mean Corpuscular Volume 104H, Mean Corpuscular Hemoglobin 30.9, Mean Corpuscular Hemoglobin Concent 29.6L, Red Cell Distribution Width 27.9H, Platelet Count 93L, Mean Platelet Volume 6.0L, Neutrophils (%) (Auto) , Lymphocytes (%) (Auto) , Monocytes (%) (Auto) , Eosinophils (%) (Auto) , Basophils (%) (Auto) , Differential Total Cells Counted 100, Neutrophils % ( Manual) 91H, Lymphocytes % (Manual) 7L, Monocytes % (Manual) 1, Eosinophils % ( Manual) 1, Basophils % (Manual) 0, Band Neutrophils 0, Nucleated Red Blood Cells 1, Platelet Estimate DecreasedL, Platelet Morphology Normal, Anisocytosis 2+, Sodium Level 145, Potassium Level 3.9, Chloride Level 114H, Carbon Dioxide Level 18L, Anion Gap 14, Blood Urea Nitrogen 75H, Creatinine 2.3H, Estimat Glomerular Filtration Rate 21.9, Glucose Level 141H, Calcium Level 8.2L Current Medications Medications (Trade) Dose Ordered Sig/Almaz Route PRN Reason Start Time Stop Time Status Last Admin Dose Admin Acetaminophen (Tylenol) 650 mg Q6H PRN NG Mild Pain/Temp > 100.5 05/27/19 12:30 06/26/19 12:29 Albuterol/ Ipratropium (Albuterol/ Ipratropium) 3 ml Q4H PRN HHN Shortness of Breath 05/29/19 08:15 06/03/19 08:14 Barium Sulfate (Varibar Honey) 250 ml NOW PRN RAD 05/30/19 13:00 06/02/19 12:56 Barium Sulfate (Varibar Penfield) 240 ml NOW PRN MC RAD 05/30/19 13:00 06/02/19 12:56 Barium Sulfate (Varibar Pudding) 230 ml NOW PRN RAD 05/30/19 13:00 06/02/19 12:56 Betamethasone/ Clotrimazole (Lotrisone) 1 applic TWICE A DAY TOPIC 05/26/19 18:00 06/25/19 17:59 05/31/19 08:32 Chlorhexidine Gluconate (Shannon-Hex 2%) 1 applic DAILY@1999 TOPIC 05/26/19 20:00 06/17/19 19:59 05/30/19 20:49 Dextrose 1,000 ml @ 55 mls/hr [id number] IV 05/29/19 18:15 06/28/19 18:14 05/31/19 06:02 Dextrose (Dextrose 50%) 25 ml Q30M PRN IV Hypoglycemia 05/26/19 06:45 06/16/19 21:44 Dextrose (Dextrose 50%) 50 ml Q30M PRN IV Hypoglycemia 05/26/19 06:45 06/16/19 21:44 Fluconazole/ Sodium Chloride 100 ml @ 100 mls/hr Q24H IV 05/28/19 17:00 06/04/19 16:59 05/30/19 17:47 Insulin Aspart (NovoLOG) AC+HS SUBQ 05/29/19 21:00 06/24/19 11:59 05/31/19 11:55 Lactulose (Cephulac) 15 gm THREE TIMES A DAY ORAL 05/31/19 09:00 06/17/19 10:29 05/31/19 11:56 Lansoprazole (Prevacid) 30 mg Q12HR NG 05/26/19 21:00 06/25/19 20:59 05/31/19 08:32 Lidocaine (Xylocaine 5% cream) 1 applic DAILYPRN PRN TOPIC skin breakdown 05/31/19 11:15 06/30/19 11:14 Morphine Sulfate (Morphine Sulfate) 2 mg Q4H PRN IVP Severe Pain (Pain Scale 7-10) 05/27/19 12:30 06/03/19 12:29 05/30/19 13:51 Nystatin (Nystatin Cr) 1 applic DAILYPRN PRN TOPIC skin breakdown 05/31/19 11:15 06/30/19 11:14 Ondansetron HCl (Zofran) 4 mg Q6H PRN IVP Nausea & Vomiting 05/26/19 06:45 06/16/19 06:44 Rifaximin (Xifaxan) 550 mg EVERY 12 HOURS NG 05/26/19 09:00 06/01/19 23:00 05/31/19 08:32 Triamcinolone Acetonide (Kenalog 0.5% Cr) 1 applic DAILYPRN PRN TOPIC skin breakdown 05/31/19 11:15 06/30/19 11:14 Zinc Oxide (Zinc Oxide) 1 applic DAILYPRN PRN TOPIC skin breakdown 05/31/19 11:15 06/30/19 11:14 Shireen Khan MD May 31, 2019 13:29
--- NOTE | 2019-05-31 14:33 | NUR ---
NURSE NOTES: I tried to reach patient's next of kin, Matteo to get a telephone consent; Matteo said to call back after 529. Will call back
--- NOTE | 2019-05-31 14:51 | NUR ---
NURSE NOTES:WOUND CARE FOLLOW-UP NOTES:Intertriginous dermatitis skin folds of neck ,Bilat breasts ,Bilat axillae, abd folds and bilat groin folds. Neck , bilat axillae and bilat breasts resolving and are red but dry and peeling. L abd fold, R and L groin -are erythematous and grossly macerated. Small amt Sanguineous exudate noted from R and L groin and abd fold. Triamcinolone cream ,then Zinc oxide paste applied to abd folds and groin areas . Abd pads applied for moisture absorption. Sacrum is intact with perianal erythema . Medial aspects of both upper thigh erythematous but dry and peeling. Moisture Barrier paste applied. Bilat heels are dry,firm and easily blanchable. NO new skin concerns noted Tx.PLan: Gently cleanse abd folds and groin areas with soap and water. Pat dry. Apply Triamcinolone Paste to abd folds and bilat groin areas . Place abd pads to affected areas Twice Daily. Apply Remedy Antifungal Powder to neck ,bilat Axillae and bilat breasts Twice daily. Apply Moisture Barrier Paste to buttocks and medial aspects of both thighs with each incontinence care. Apply Cavilon Skin Barrier to both heels. Off-load heels with pillow. Reposition at least every 2hours or as tolerated. APM/CHRISSY mattress overlay.
[2019-05-31 16:00] VITALS: BP 117/57
[2019-05-31] MEDS: Fluconazole 200mg/100ml (Pre-Mix) IV SCH (17:20)
--- NOTE | 2019-05-31 17:26 | Internal Med Progress Note ---
Subjective Date of Service: May 31, 2019 Physician Name Jose Benjamni Attending Physician Goldy Amador MD Current Medications Medications (Trade) Dose Ordered Sig/Almaz Route PRN Reason Start Time Stop Time Status Last Admin Dose Admin Acetaminophen (Tylenol) 650 mg Q6H PRN NG Mild Pain/Temp > 100.5 05/27/19 12:30 06/26/19 12:29 Albuterol/ Ipratropium (Albuterol/ Ipratropium) 3 ml Q4H PRN HHN Shortness of Breath 05/29/19 08:15 06/03/19 08:14 Barium Sulfate (Varibar Honey) 250 ml NOW PRN MC RAD 05/30/19 13:00 06/02/19 12:56 Barium Sulfate (Varibar [place]) 240 ml NOW PRN MC RAD 05/30/19 13:00 06/02/19 12:56 Barium Sulfate (Varibar Pudding) 230 ml NOW PRN RAD 05/30/19 13:00 06/02/19 12:56 Betamethasone/ Clotrimazole (Lotrisone) 1 applic TWICE A DAY TOPIC 05/26/19 18:00 06/25/19 17:59 05/31/19 17:19 Chlorhexidine Gluconate (Shannon-Hex 2%) 1 applic DAILY@2000 TOPIC 05/26/19 20:00 06/17/19 19:59 05/30/19 20:49 Dextrose 1,000 ml @ 55 mls/hr [id number] IV 05/29/19 18:15 06/28/19 18:14 05/31/19 06:02 Dextrose (Dextrose 50%) 25 ml Q30M PRN IV Hypoglycemia 05/26/19 06:45 06/16/19 21:44 Dextrose (Dextrose 50%) 50 ml Q30M PRN IV Hypoglycemia 05/26/19 06:45 06/16/19 21:44 Fluconazole/ Sodium Chloride 100 ml @ 100 mls/hr Q24H IV 05/28/19 17:00 06/04/19 16:59 05/31/19 17:20 Insulin Aspart (NovoLOG) AC+HS SUBQ 05/29/19 21:00 06/24/19 11:59 05/31/19 17:21 Lactulose (Cephulac) 15 gm THREE TIMES A DAY ORAL 05/31/19 09:00 06/17/19 10:29 05/31/19 17:19 Lansoprazole (Prevacid) 30 mg Q12HR NG 05/26/19 21:00 06/25/19 20:59 05/31/19 08:32 Lidocaine (Xylocaine 5% cream) 1 applic DAILYPRN PRN TOPIC skin breakdown 05/31/19 11:15 06/30/19 11:14 Morphine Sulfate (Morphine Sulfate) 2 mg Q4H PRN IVP Severe Pain (Pain Scale 7-10) 05/27/19 12:30 06/03/19 12:29 05/30/19 13:51 Nystatin (Nystatin Cr) 1 applic DAILYPRN PRN TOPIC skin breakdown 05/31/19 11:15 06/30/19 11:14 Ondansetron HCl (Zofran) 4 mg Q6H PRN IVP Nausea & Vomiting 05/26/19 06:45 06/16/19 06:44 Rifaximin (Xifaxan) 550 mg EVERY 12 HOURS NG 05/26/19 09:00 06/07/19 23:59 05/31/19 08:32 Triamcinolone Acetonide (Kenalog 0.5% Cr) 1 applic DAILYPRN PRN TOPIC skin breakdown 05/31/19 11:15 06/30/19 11:14 Zinc Oxide (Zinc Oxide) 1 applic DAILYPRN PRN TOPIC skin breakdown 05/31/19 11:15 06/30/19 11:14 Allergies: Coded Allergies: No Known Allergies (Unverified , 01/31/19) ROS Limited/Unobtainable: No Constitutional: Reports: no symptoms HEENT: Reports: no symptoms Cardiovascular: Reports: no symptoms Respiratory: Reports: no symptoms Gastrointestinal/Abdominal: Reports: abdominal pain Genitourinary: Reports: no symptoms Neurologic/Psychiatric: Reports: no symptoms Subjective 58 YO F admitted with respiratory failure and presumed septic shock. Now UTI. Cover for Int Med-Dr Amador. Extubated 05/25/19. S/P paracentesis 05/25/19 Objective Last Vital Signs Date Time Temp Pulse Resp B/P (MAP) Pulse Ox O2 Delivery O2 Flow Rate FiO2 05/31/19 16:00 98.1 87 20 117/57 (77) 96 05/31/19 11:42 Nasal Cannula 2.0 28 Laboratory Tests Test 05/31/19 05:00 White Blood Count 9.7 K/UL (4.8-10.8) Red Blood Count 2.46 M/UL (4.20-5.40) L Hemoglobin 7.6 G/DL (12.0-16.0) L Hematocrit 25.6 % (37.0-47.0) L Mean Corpuscular Volume 104 FL (80-99) H Mean Corpuscular Hemoglobin 30.9 PG (27.0-31.0) Mean Corpuscular Hemoglobin Concent 29.6 G/DL (32.0-36.0) L Red Cell Distribution Width 27.9 % (11.6-14.8) H Platelet Count 93 K/UL (150-450) L Mean Platelet Volume 6.0 FL (6.5-10.1) L Neutrophils (%) (Auto) % (45.0-75.0) Lymphocytes (%) (Auto) % (20.0-45.0) Monocytes (%) (Auto) % (1.0-10.0) Eosinophils (%) (Auto) % (0.0-3.0) Basophils (%) (Auto) % (0.0-2.0) Differential Total Cells Counted 100 Neutrophils % (Manual) 91 % (45-75) H Lymphocytes % (Manual) 7 % (20-45) L Monocytes % (Manual) 1 % (1-10) Eosinophils % (Manual) 1 % (0-3) Basophils % (Manual) 0 % (0-2) Band Neutrophils 0 % (0-8) Nucleated Red Blood Cells 1 /100 WBC Platelet Estimate Decreased L Platelet Morphology Normal Anisocytosis 2+ Sodium Level 145 MMOL/L (136-145) Potassium Level 3.9 MMOL/L (3.5-5.1) Chloride Level 114 MMOL/L (98-107) H Carbon Dioxide Level 18 MMOL/L (21-32) L Anion Gap 14 mmol/L (5-15) Blood Urea Nitrogen 75 mg/dL (7-18) H Creatinine 2.3 MG/DL (0.55-1.30) H Estimat Glomerular Filtration Rate 21.9 mL/min (>60) Glucose Level 141 MG/DL (74-106) H Calcium Level 8.2 MG/DL (8.5-10.1) L Intake and Output 05/30/19 05/31/19 19:00 07:00 Intake Total 485 ml 660 ml Output Total 250 ml Balance 485 ml 410 ml IV Total 485 ml 660 ml Output Urine Total 250 ml # Voids 1 # Bowel Movements 2 4 Objective PHYSICAL EXAMINATION: GENERAL: The patient is a well-developed and well-nourished obese female, who is intubated and sedated. HEENT: Eyes, pupils are equal and responsive to light and accommodation. Extraocular movements are intact. NECK: Supple without lymphadenopathy. CHEST: nasal canula; Coarse upper breath sounds, otherwise without wheezes or rales. CARDIOVASCULAR: Regular rhythm, rate. S1, S2 normal without murmurs, rubs, or gallops. ABDOMEN: Soft, distended with decreased bowel sounds. No evidence of hepatosplenomegaly. Currently, no rebound or guarding noted. EXTREMITIES: Negative for clubbing, cyanosis, or edema. RECTAL/GENITAL: Not performed. NEUROLOGICAL: Unable to assess. Assessment/Plan Assessment/Plan ASSESSMENT: This is a 58-year-old female. 1. Respiratory failure. 2. Urinary tract infection=klebsiella pneumoniae 3. Probable sepsis. 4. Probable septic shock. 5. Alcoholic cirrhosis of the liver. 6. Hypertension. 7. Diabetes type 2. 8. Ascites. 9. Hypercholesterolemia. TREATMENT: 1. Respiratory failure. A Pulmonary consultation has been obtained with Dr. Shireen Khan. Sputum=lizzy and klebsiella. We will follow recommendations of Pulmonary. 2. Urinary tract infection. An Infectious Disease consultation has been obtained with Dr. Hu. ABX=zosyn and fluconazole Urine culture=klebsiella 3. Probable sepsis-increased WBC. See ID note 4. Septic shock. 5. Alcoholic cirrhosis of liver. A Gastroenterology consultation has been obtained with Dr. Jon Torres. S/P paracentesis 05/19/19 6. Hypertension. The patient is currently hypotensive. Hold all antihypertensive medications. 7. Diabetes type 2. A NovoLog sliding scale has been instituted. 8. Ascites, as above. A Gastroenterology consultation has been obtained with Dr. Jon Torres. S/P paracentesis 05/19/19 and 05/25/19 9. Hypercholesterolemia. Jose Benjamin MD May 31, 2019 17:26
--- NOTE | 2019-05-31 17:45 | NUR ---
NURSE NOTES: I called back to get a consent from the next kin of patient and I explained the procedure patient gonna have; Mr Matteo mensioned that patient already has this procedure last month and he wants to know why we repeat the order. I left a message to MD Torres and Miguelito; waiting call back; charge nurse Laura is aware.
--- NOTE | 2019-05-31 19:27 | NUR ---
HAND-OFF: Report given to CHAVA Chavis.
--- NOTE | 2019-05-31 19:35 | NUR ---
NURSE NOTES: Received a report from CHAVA Shaw. Confused. On room air. No pain/discomfort noted. PICC line 2 lumen is patent and intact. HOB elevated. Draper catheter is draining. B soft wrist restraints are on. Bed in lowest position. Bed alarm is on. Call light within reach. Will continue to monitor.
--- NOTE | 2019-05-31 19:41 | NUR ---
NURSE NOTES: Contacted Dr. Torres to inform him that the pt's son Matteo wants to talk to him regarding the procedure for tomorrow. No response yet. Charge Nurse Jade made aware.
[2019-05-31 20:00] VITALS: BP 104/56
[2019-05-31] MEDS: Dyna-Hex 2% Top Sol 2oz TOPIC SCH (20:00)
[2019-06-01] VITALS: BP 110/63
[2019-06-01 04:00] VITALS: BP 117/54
[2019-06-01 05:19] LABS: INR 1.5 (0.9-1.1)
[2019-06-01 05:41] LABS: HEMATOCRIT 24.9 % (37.0-47.0); HEMOGLOBIN 7.4 G/DL (12.0-16.0); MEAN CORPUSCULAR VOLUME 103 FL (80-99); PLATELET COUNT 92 K/UL (150-450); RED BLOOD COUNT 2.43 M/UL (4.20-5.40); WHITE BLOOD COUNT 8.7 K/UL (4.8-10.8)
[2019-06-01 05:50] LABS: ALANINE AMINOTRANSFERASE 14 U/L (12-78); ALBUMIN 1.1 G/DL (3.4-5.0); ALBUMIN/GLOBULIN RATIO 0.2 (1.0-2.7); ALKALINE PHOSPHATASE 162 U/L (46-116); ANION GAP 12 mmol/L (5-15); ASPARTATE AMINO TRANSFERASE 55 U/L (15-37); BILIRUBIN,TOTAL 16.6 MG/DL (0.2-1.0); BLOOD UREA NITROGEN 76 mg/dL (7-18); CALCIUM 8.4 MG/DL (8.5-10.1); CARBON DIOXIDE 19 MMOL/L (21-32); CHLORIDE 113 MMOL/L (98-107); CREATININE 2.3 MG/DL (0.55-1.30); POTASSIUM 3.5 MMOL/L (3.5-5.1); SODIUM 144 MMOL/L (136-145)
[2019-06-01] MEDS: NovoLOG Insulin Flexpen SUBQ SCH ×4 (05:53→21:20)
[2019-06-01 05:56] LABS: BILIRUBIN,DIRECT 12.9 MG/DL (0.0-0.3)
--- NOTE | 2019-06-01 07:20 | NUR ---
HAND-OFF: Report given to CHAVA Mckeon. Endorsed to Mike to follow up with Dr. Torres to explain to the son the reason for EGD with biopsy.
--- NOTE | 2019-06-01 07:30 | NUR ---
NURSE NOTES: Received pt from AYUSH LARSEN. Pt is confused and orient x2. pt is in RA, no SOB or acute respiratory distress noted. Pt has intact PICC is running well.pt has Draper cath in place is running well. all needs attended, bed is locked and is in the lowest position. call light within easy reach. will continue to monitor.
[2019-06-01 08:00] VITALS: BP 112/63
--- NOTE | 2019-06-01 09:16 | General Progress Note ---
Assessment/Plan Problem List: (1) Liver cirrhosis ICD Codes: K74.60 - Unspecified cirrhosis of liver SNOMED: 03764026 (2) Sepsis ICD Codes: A41.9 - Sepsis, unspecified organism SNOMED: 60546726 Qualifiers: Qualified Codes: A41.9 - Sepsis, unspecified organism (3) Anasarca ICD Codes: R60.1 - Generalized edema SNOMED: 638344564, 526234182 (4) Ascites ICD Codes: R18.8 - Other ascites SNOMED: 295929391 (5) Anemia ICD Codes: D64.9 - Anemia, unspecified SNOMED: 395264067 (6) Hepatic encephalopathy ICD Codes: K72.90 - Hepatic failure, unspecified without coma SNOMED: 15164944 (7) Acute respiratory failure ICD Codes: J96.00 - Acute respiratory failure, unspecified whether with hypoxia or hypercapnia SNOMED: 75872627 (8) ETOH abuse ICD Codes: F10.10 - Alcohol abuse, uncomplicated SNOMED: 25567180 Status: unchanged Assessment/Plan: lactulose >> decrease by half cont Xifaxan neg stool ob fu H&H and transfuse prn ppi abx per ID speech eval appreciated on puree diet EGD canceled given last EGD on 03/2019 Subjective ROS Limited/Unobtainable: Yes Allergies: Coded Allergies: No Known Allergies (Unverified , 01/31/19) Objective Last 24 Hour Vital Signs Date Time Temp Pulse Resp B/P (MAP) Pulse Ox O2 Delivery O2 Flow Rate FiO2 06/01/19 04:00 98.5 86 20 117/54 (75) 96 06/01/19 00:00 97.7 85 24 110/63 (79) 94 05/31/19 21:00 Room Air 05/31/19 20:00 97.9 84 22 104/56 (72) 94 05/31/19 16:00 98.1 87 20 117/57 (77) 96 05/31/19 12:00 97.8 87 20 118/67 (84) 96 05/31/19 11:42 92 24 98 Nasal Cannula 2.0 28 Intake and Output 05/31/19 06/01/19 18:59 06:59 Intake Total 1240 ml 4325 ml Output Total 4890 ml Balance 1240 ml -565 ml Intake Oral 480 ml 480 ml Free Water 150 ml IV Total 760 ml 3605 ml Tube Feeding 60 ml Other 30 ml Output Urine Total 250 ml Stool Total 100 ml Emesis 40 ml Other 4500 ml # Voids 3 3 # Bowel Movements 4 2 Laboratory Tests 06/01/19 04:15: White Blood Count 8.7, Red Blood Count 2.43L, Hemoglobin 7.4L, Hematocrit 24.9L , Mean Corpuscular Volume 103H, Mean Corpuscular Hemoglobin 30.5, Mean Corpuscular Hemoglobin Concent 29.7L, Red Cell Distribution Width 27.0H, Platelet Count 92L, Mean Platelet Volume 5.7L, Neutrophils (%) (Auto) , Lymphocytes (%) (Auto) , Monocytes (%) (Auto) , Eosinophils (%) (Auto) , Basophils (%) (Auto) , Differential Total Cells Counted 100, Neutrophils % ( Manual) 77H, Lymphocytes % (Manual) 11L, Monocytes % (Manual) 9, Eosinophils % ( Manual) 2, Basophils % (Manual) 1, Band Neutrophils 0, Platelet Estimate DecreasedL, Platelet Morphology Normal, Hypochromasia 3+, Anisocytosis 4+, Macrocytosis 1+, Prothrombin Time 15.8H, Prothromb Time International Ratio 1.5H , Sodium Level 144, Potassium Level 3.5, Chloride Level 113H, Carbon Dioxide Level 19L, Anion Gap 12, Blood Urea Nitrogen 76H, Creatinine 2.3H, Estimat Glomerular Filtration Rate 21.9, Glucose Level 134H, Calcium Level 8.4L, Total Bilirubin 16.6H, Direct Bilirubin 12.9H, Aspartate Amino Transf (AST/SGOT) 55H, Alanine Aminotransferase (ALT/SGPT) 14, Alkaline Phosphatase 162H, Total Protein 5.9L, Albumin 1.1L, Globulin 4.8, Albumin/Globulin Ratio 0.2L Height (Feet): 5 Height (Inches): 0.00 Weight (Pounds): 205 General Appearance: alert EENT: normal ENT inspection Neck: normal alignment Cardiovascular: normal rate Respiratory/Chest: lungs clear Abdomen: normal bowel sounds, non tender, soft Extremities: non-tender Jon Torres MD Jun 01, 2019 09:16
[2019-06-01] MEDS: Lactulose 20gm/30ml UDC ORAL SCH ×3 (09:47→17:20)
[2019-06-01] MEDS: Lotrisone Cream 15gm TOPIC SCH ×2 (09:47→17:20)
[2019-06-01] MEDS: Morphine Sulfate 2mg/ml Inj(IV/IM USE ONLY) IVP PRN ×2 (09:48→21:03)
[2019-06-01 12:00] VITALS: BP 119/74
--- NOTE | 2019-06-01 13:21 | Pulmonology Progress Note ---
Assessment/Plan Problems: (1) End of life care (2) Acute respiratory failure (3) Acute metabolic encephalopathy (4) Acute on chronic alcoholic liver disease (5) Anasarca (6) Anemia (7) Thrombocytopenia (8) Coagulopathy (9) Sacral decubitus ulcer (10) ETOH abuse Assessment/Plan visibly icteric more awake, looks very yellow symptomatic treatment bilirubin is 16 today will call hospice evaluation, considering grim prognosis. Claude in [place] agreed with hospice. He needs to talk with other sonMatteo to make the final decision. Subjective ROS Limited/Unobtainable: No Constitutional: Reports: no symptoms HEENT: Repors: no symptoms Allergies: Coded Allergies: No Known Allergies (Unverified , 01/31/19) Objective Last 24 Hour Vital Signs Date Time Temp Pulse Resp B/P (MAP) Pulse Ox O2 Delivery O2 Flow Rate FiO2 06/01/19 12:00 96.1 75 17 119/74 (89) 95 06/01/19 10:18 97.7 06/01/19 09:00 Room Air 06/01/19 08:00 97.7 82 17 112/63 (79) 99 06/01/19 04:00 98.5 86 20 117/54 (75) 96 06/01/19 00:00 97.7 85 24 110/63 (79) 94 05/31/19 21:00 Room Air 05/31/19 20:00 97.9 84 22 104/56 (72) 94 05/31/19 16:00 98.1 87 20 117/57 (77) 96 Intake and Output 05/31/19 06/01/19 19:00 07:00 Intake Total 1240 ml 4380 ml Output Total 4890 ml Balance 1240 ml -510 ml Intake Oral 480 ml 480 ml Free Water 150 ml IV Total 760 ml 3660 ml Tube Feeding 60 ml Other 30 ml Output Urine Total 250 ml Stool Total 100 ml Emesis 40 ml Other 4500 ml # Voids 3 3 # Bowel Movements 4 2 General Appearance: WD/WN HEENT: normocephalic, anicteric Respiratory/Chest: chest wall non-tender, normal breath sounds Breasts: no masses Cardiovascular: normal rate Abdomen: normal bowel sounds, no organomegaly Genitourinary: normal external genitalia Skin: no rash, no lesions Laboratory Tests 06/01/19 04:15: White Blood Count 8.7, Red Blood Count 2.43L, Hemoglobin 7.4L, Hematocrit 24.9L , Mean Corpuscular Volume 103H, Mean Corpuscular Hemoglobin 30.5, Mean Corpuscular Hemoglobin Concent 29.7L, Red Cell Distribution Width 27.0H, Platelet Count 92L, Mean Platelet Volume 5.7L, Neutrophils (%) (Auto) , Lymphocytes (%) (Auto) , Monocytes (%) (Auto) , Eosinophils (%) (Auto) , Basophils (%) (Auto) , Differential Total Cells Counted 100, Neutrophils % ( Manual) 77H, Lymphocytes % (Manual) 11L, Monocytes % (Manual) 9, Eosinophils % ( Manual) 2, Basophils % (Manual) 1, Band Neutrophils 0, Platelet Estimate DecreasedL, Platelet Morphology Normal, Hypochromasia 3+, Anisocytosis 4+, Macrocytosis 1+, Prothrombin Time 15.8H, Prothromb Time International Ratio 1.5H , Sodium Level 144, Potassium Level 3.5, Chloride Level 113H, Carbon Dioxide Level 19L, Anion Gap 12, Blood Urea Nitrogen 76H, Creatinine 2.3H, Estimat Glomerular Filtration Rate 21.9, Glucose Level 134H, Calcium Level 8.4L, Total Bilirubin 16.6H, Direct Bilirubin 12.9H, Aspartate Amino Transf (AST/SGOT) 55H, Alanine Aminotransferase (ALT/SGPT) 14, Alkaline Phosphatase 162H, Total Protein 5.9L, Albumin 1.1L, Globulin 4.8, Albumin/Globulin Ratio 0.2L Current Medications Medications (Trade) Dose Ordered Sig/Almaz Route PRN Reason Start Time Stop Time Status Last Admin Dose Admin Acetaminophen (Tylenol) 650 mg Q6H PRN NG Mild Pain/Temp > 100.5 05/27/19 12:30 06/26/19 12:29 Albuterol/ Ipratropium (Albuterol/ Ipratropium) 3 ml Q4H PRN HHN Shortness of Breath 05/29/19 08:15 06/03/19 08:14 Barium Sulfate (Varibar Honey) 250 ml NOW PRN RAD 05/30/19 13:00 06/02/19 12:56 Barium Sulfate (Varibar [place]) 240 ml NOW PRN RAD 05/30/19 13:00 06/02/19 12:56 Barium Sulfate (Varibar Pudding) 230 ml NOW PRN MC RAD 05/30/19 13:00 06/02/19 12:56 Betamethasone/ Clotrimazole (Lotrisone) 1 applic TWICE A DAY TOPIC 05/26/19 18:00 06/25/19 17:59 06/01/19 09:47 Chlorhexidine Gluconate (Shannon-Hex 2%) 1 applic DAILY@2000 TOPIC 05/26/19 20:00 06/17/19 19:59 05/31/19 20:00 Dextrose (Dextrose 50%) 25 ml Q30M PRN IV Hypoglycemia 05/26/19 06:45 06/16/19 21:44 Dextrose (Dextrose 50%) 50 ml Q30M PRN IV Hypoglycemia 05/26/19 06:45 06/16/19 21:44 Fluconazole/ Sodium Chloride 100 ml @ 100 mls/hr Q24H IV 05/28/19 17:00 06/04/19 16:59 05/31/19 17:20 Insulin Aspart (NovoLOG) AC+HS SUBQ 05/29/19 21:00 06/24/19 11:59 06/01/19 12:15 Lactulose (Cephulac) 15 gm THREE TIMES A DAY ORAL 05/31/19 09:00 06/17/19 10:29 06/01/19 12:13 Lansoprazole (Prevacid) 30 mg Q12HR NG 05/26/19 21:00 06/25/19 20:59 06/01/19 09:47 Lidocaine (Xylocaine 5% cream) 1 applic DAILYPRN PRN TOPIC skin breakdown 05/31/19 11:15 06/30/19 11:14 Morphine Sulfate (Morphine Sulfate) 2 mg Q4H PRN IVP Severe Pain (Pain Scale 7-10) 05/27/19 12:30 06/03/19 12:29 06/01/19 09:48 Nystatin (Nystatin Cr) 1 applic DAILYPRN PRN TOPIC skin breakdown 05/31/19 11:15 06/30/19 11:14 Ondansetron HCl (Zofran) 4 mg Q6H PRN IVP Nausea & Vomiting 05/26/19 06:45 06/16/19 06:44 Rifaximin (Xifaxan) 550 mg EVERY 12 HOURS NG 05/26/19 09:00 06/07/19 23:59 06/01/19 09:47 Triamcinolone Acetonide (Kenalog 0.5% Cr) 1 applic DAILYPRN PRN TOPIC skin breakdown 05/31/19 11:15 06/30/19 11:14 Zinc Oxide (Zinc Oxide) 1 applic DAILYPRN PRN TOPIC skin breakdown 05/31/19 11:15 06/30/19 11:14 Shireen Khan MD Jun 01, 2019 13:21
--- NOTE | 2019-06-01 13:49 | Nephrology Progress Note ---
Assessment/Plan Problem List: (1) ATN (acute tubular necrosis) (2) Sepsis (3) Acute respiratory failure (4) Acute on chronic alcoholic liver disease Assessment: worsening bili (5) Anemia Assessment Renal failure- Acute On May 09, 2019 normal renal parameters Severe Anemia, Acute on chronic- Acute part from right groin attempted line insertion Severe HypoAlbuminemia, Cirrhosis, ALD, Ascites Sepsis- High lactic Acid Acute respiratory failure Previous gram negative bacteremia / Sepsis Plan extubated 05/25 Hydrate- slow K supplement as needed Antibiotics Monitor renal parameters- Cr 2.3 stable avoid nephrotoxics transfuse as needed- per orders discussed with RN DNR Subjective ROS Limited/Unobtainable: No Constitutional: Reports: malaise, weakness Objective Objective Last 24 Hour Vital Signs Date Time Temp Pulse Resp B/P (MAP) Pulse Ox O2 Delivery O2 Flow Rate FiO2 06/01/19 12:00 96.1 75 17 119/74 (89) 95 06/01/19 10:18 97.7 06/01/19 09:00 Room Air 06/01/19 08:00 97.7 82 17 112/63 (79) 99 06/01/19 04:00 98.5 86 20 117/54 (75) 96 06/01/19 00:00 97.7 85 24 110/63 (79) 94 05/31/19 21:00 Room Air 05/31/19 20:00 97.9 84 22 104/56 (72) 94 05/31/19 16:00 98.1 87 20 117/57 (77) 96 Intake and Output 05/31/19 06/01/19 19:00 07:00 Intake Total 1240 ml 4380 ml Output Total 4890 ml Balance 1240 ml -510 ml Intake Oral 480 ml 480 ml Free Water 150 ml IV Total 760 ml 3660 ml Tube Feeding 60 ml Other 30 ml Output Urine Total 250 ml Stool Total 100 ml Emesis 40 ml Other 4500 ml # Voids 3 3 # Bowel Movements 4 2 Laboratory Tests 06/01/19 04:15: White Blood Count 8.7, Red Blood Count 2.43L, Hemoglobin 7.4L, Hematocrit 24.9L , Mean Corpuscular Volume 103H, Mean Corpuscular Hemoglobin 30.5, Mean Corpuscular Hemoglobin Concent 29.7L, Red Cell Distribution Width 27.0H, Platelet Count 92L, Mean Platelet Volume 5.7L, Neutrophils (%) (Auto) , Lymphocytes (%) (Auto) , Monocytes (%) (Auto) , Eosinophils (%) (Auto) , Basophils (%) (Auto) , Differential Total Cells Counted 100, Neutrophils % ( Manual) 77H, Lymphocytes % (Manual) 11L, Monocytes % (Manual) 9, Eosinophils % ( Manual) 2, Basophils % (Manual) 1, Band Neutrophils 0, Platelet Estimate DecreasedL, Platelet Morphology Normal, Hypochromasia 3+, Anisocytosis 4+, Macrocytosis 1+, Prothrombin Time 15.8H, Prothromb Time International Ratio 1.5H , Sodium Level 144, Potassium Level 3.5, Chloride Level 113H, Carbon Dioxide Level 19L, Anion Gap 12, Blood Urea Nitrogen 76H, Creatinine 2.3H, Estimat Glomerular Filtration Rate 21.9, Glucose Level 134H, Calcium Level 8.4L, Total Bilirubin 16.6H, Direct Bilirubin 12.9H, Aspartate Amino Transf (AST/SGOT) 55H, Alanine Aminotransferase (ALT/SGPT) 14, Alkaline Phosphatase 162H, Total Protein 5.9L, Albumin 1.1L, Globulin 4.8, Albumin/Globulin Ratio 0.2L Height (Feet): 5 Height (Inches): 0.00 Weight (Pounds): 205 General Appearance: other - jaundiced Cardiovascular: tachycardia Respiratory/Chest: decreased breath sounds Abdomen: distended Objective no change Jovany Byers MD Jun 01, 2019 13:49
--- NOTE | 2019-06-01 15:30 | NUR ---
ST NOTES: SWALLOW STATUS: PATIENT'S DIET DOWNGRADED TO LIQUIFIED PUREED LIKE NECTAR THICK SOUP SINCE SHE STILL HAVE DIFFICULTY IF PUREED IS TOO THICK (PER SPEECH PATHOLOGY SUPERVISOR). PATIENT ALSO NEEDS TO BE ON NECTAR THICK LIQUIDS FOR NOW. PATIENT HAD VERY SLOW AND POOR INTAKE. 10/20/25%. STILL NEEDS HIGH CALORIE DRINKS (GLUCERNA). GOALS FOR INTAKE NOT MET BUT GOALS FOR STAFF EDUCATED/TRAINED IN POSTED PRECAUTIONS MET (RN SCOTT AND SPEECH PATHOLOGY SUPERVISORBandar PAREKH). PLAN: F/UP WITH PLAN OF CARE IN SWALLOW EVAL AND MOD BARIUM SWALLOW STUDY REPORTS.
[2019-06-01 16:00] VITALS: BP 110/69
--- NOTE | 2019-06-01 17:31 | Infectious Diseases Prog Note ---
Assessment/Plan Assessment/Plan Assessment/Plan 58 yo female with PMHx of Liver cirrhosis with recurrent ascites, HTN, ETOH abuse, DM and Hepatic encephalopathy who presented to the ED on 05/17/19 with AMS. Lt hand tender and mild erythema , Sp Sepsis, sp Probable UTI UCx : lizzy Urine Cx 05/17/19 - K. pneumo Probable VAP Scx: yeast 05/25 CXR : Possibly new or increased bilateral infrahilar opacities, could represent small patchy infiltrates. Ascites no evid of SBP \ 05/25 Sp US guided paracentesis, yielding 4.1 liters of fluid Cell : Perit F cell count: 65 05/19 sp paracentesis ( no Cx or Cell count sent) AMS, sp Hepatic encephalopathy ? vs Urosepsis Leukocytosis , Sp No fever Hx Gram negative bacteremia -05/03 BCx 10/04 ACHROMOBACTER XYLOSOXIDANS (S Zosyn, Ceftazidime, bactrim; R cefepime; I imipenem, Levaquin); 05/05 Bcx NTD Recurrent ascites -05/05 SP paracentesis: 3.5 L removed wbc 170 (N 49%); cx Neg - -03/11/19 sp paracentesis:fluid wbc 97 (N 34%) 05/25 Sp Extubation HTN DM Liver Cirrhosis EtOH abuse Plan: cont Diflucan # 6/14, upon DC will change to po to complete course - 05/30 Zosyn # 7 - 05/27 Sp Zyvox # 2 -05/24 Sp Cefazolin # 3 - 05/22/19 SP Cefepime #5 Flagyl #5 and Vancomycin #5 -Monitor CBC/CMP Subjective Allergies: Coded Allergies: No Known Allergies (Unverified , 01/31/19) Subjective comfortable Objective Vital Signs Last 24 Hour Vital Signs Date Time Temp Pulse Resp B/P (MAP) Pulse Ox O2 Delivery O2 Flow Rate FiO2 06/01/19 16:00 98.3 83 18 110/69 (83) 95 06/01/19 12:00 96.1 75 17 119/74 (89) 95 06/01/19 10:18 97.7 06/01/19 09:00 Room Air 06/01/19 08:00 97.7 82 17 112/63 (79) 99 06/01/19 04:00 98.5 86 20 117/54 (75) 96 06/01/19 00:00 97.7 85 24 110/63 (79) 94 05/31/19 21:00 Room Air 05/31/19 20:00 97.9 84 22 104/56 (72) 94 Height (Feet): 5 Height (Inches): 0.00 Weight (Pounds): 205 HEENT: anicteric Respiratory/Chest: lungs clear Cardiovascular: regularly irregular Abdomen: no organomegaly Laboratory Tests Test 06/01/19 04:15 White Blood Count 8.7 K/UL (4.8-10.8) Red Blood Count 2.43 M/UL (4.20-5.40) L Hemoglobin 7.4 G/DL (12.0-16.0) L Hematocrit 24.9 % (37.0-47.0) L Mean Corpuscular Volume 103 FL (80-99) H Mean Corpuscular Hemoglobin 30.5 PG (27.0-31.0) Mean Corpuscular Hemoglobin Concent 29.7 G/DL (32.0-36.0) L Red Cell Distribution Width 27.0 % (11.6-14.8) H Platelet Count 92 K/UL (150-450) L Mean Platelet Volume 5.7 FL (6.5-10.1) L Neutrophils (%) (Auto) % (45.0-75.0) Lymphocytes (%) (Auto) % (20.0-45.0) Monocytes (%) (Auto) % (1.0-10.0) Eosinophils (%) (Auto) % (0.0-3.0) Basophils (%) (Auto) % (0.0-2.0) Differential Total Cells Counted 100 Neutrophils % (Manual) 77 % (45-75) H Lymphocytes % (Manual) 11 % (20-45) L Monocytes % (Manual) 9 % (1-10) Eosinophils % (Manual) 2 % (0-3) Basophils % (Manual) 1 % (0-2) Band Neutrophils 0 % (0-8) Platelet Estimate Decreased L Platelet Morphology Normal Hypochromasia 3+ Anisocytosis 4+ Macrocytosis 1+ Prothrombin Time 15.8 SEC (9.30-11.50) H Prothromb Time International Ratio 1.5 (0.9-1.1) H Sodium Level 144 MMOL/L (136-145) Potassium Level 3.5 MMOL/L (3.5-5.1) Chloride Level 113 MMOL/L (98-107) H Carbon Dioxide Level 19 MMOL/L (21-32) L Anion Gap 12 mmol/L (5-15) Blood Urea Nitrogen 76 mg/dL (7-18) H Creatinine 2.3 MG/DL (0.55-1.30) H Estimat Glomerular Filtration Rate 21.9 mL/min (>60) Glucose Level 134 MG/DL (74-106) H Calcium Level 8.4 MG/DL (8.5-10.1) L Total Bilirubin 16.6 MG/DL (0.2-1.0) H Direct Bilirubin 12.9 MG/DL (0.0-0.3) H Aspartate Amino Transf (AST/SGOT) 55 U/L (15-37) H Alanine Aminotransferase (ALT/SGPT) 14 U/L (12-78) Alkaline Phosphatase 162 U/L (46-116) H Total Protein 5.9 G/DL (6.4-8.2) L Albumin 1.1 G/DL (3.4-5.0) L Globulin 4.8 g/dL Albumin/Globulin Ratio 0.2 (1.0-2.7) L Current Medications Medications (Trade) Dose Ordered Sig/Almaz Route PRN Reason Start Time Stop Time Status Last Admin Dose Admin Acetaminophen (Tylenol) 650 mg Q6H PRN ORAL Mild Pain (Pain Scale 1-3) 06/01/19 14:15 07/01/19 14:14 Albuterol/ Ipratropium (Albuterol/ Ipratropium) 3 ml Q4H PRN HHN Shortness of Breath 05/29/19 08:15 06/03/19 08:14 Barium Sulfate (Varibar Honey) 250 ml NOW PRN RAD 05/30/19 13:00 06/02/19 12:56 Barium Sulfate (Varibar [place]) 240 ml NOW PRN RAD 05/30/19 13:00 06/02/19 12:56 Barium Sulfate (Varibar Pudding) 230 ml NOW PRN RAD 05/30/19 13:00 06/02/19 12:56 Betamethasone/ Clotrimazole (Lotrisone) 1 applic TWICE A DAY TOPIC 05/26/19 18:00 06/25/19 17:59 06/01/19 17:20 Chlorhexidine Gluconate (Shannon-Hex 2%) 1 applic DAILY@1999 TOPIC 05/26/19 20:00 06/17/19 19:59 05/31/19 20:00 Dextrose (Dextrose 50%) 25 ml Q30M PRN IV Hypoglycemia 05/26/19 06:45 06/16/19 21:44 Dextrose (Dextrose 50%) 50 ml Q30M PRN IV Hypoglycemia 05/26/19 06:45 06/16/19 21:44 Fluconazole (Diflucan) 200 mg QHS ORAL 06/01/19 21:00 06/04/19 20:59 Insulin Aspart (NovoLOG) AC+HS SUBQ 05/29/19 21:00 06/24/19 11:59 06/01/19 17:22 Lactulose (Cephulac) 15 gm THREE TIMES A DAY ORAL 05/31/19 09:00 06/17/19 10:29 06/01/19 17:20 Lidocaine (Xylocaine 5% cream) 1 applic DAILYPRN PRN TOPIC skin breakdown 05/31/19 11:15 06/30/19 11:14 Morphine Sulfate (Morphine Sulfate) 2 mg Q4H PRN IVP Severe Pain (Pain Scale 7-10) 05/27/19 12:30 06/03/19 12:29 06/01/19 09:48 Nystatin (Nystatin Cr) 1 applic DAILYPRN PRN TOPIC skin breakdown 05/31/19 11:15 06/30/19 11:14 Ondansetron HCl (Zofran) 4 mg Q6H PRN IVP Nausea & Vomiting 05/26/19 06:45 06/16/19 06:44 Pantoprazole (Protonix) 40 mg BIAC ORAL 06/01/19 16:30 07/01/19 16:29 06/01/19 17:20 Rifaximin (Xifaxan) 550 mg EVERY 12 HOURS ORAL 06/01/19 21:00 06/07/19 23:59 Triamcinolone Acetonide (Kenalog 0.5% Cr) 1 applic DAILYPRN PRN TOPIC skin breakdown 05/31/19 11:15 06/30/19 11:14 Zinc Oxide (Zinc Oxide) 1 applic DAILYPRN PRN TOPIC skin breakdown 05/31/19 11:15 06/30/19 11:14 Krzysztof Hu MD Jun 01, 2019 17:31
--- NOTE | 2019-06-01 19:00 | Internal Med Progress Note ---
Subjective Date of Service: Jun 01, 2019 Physician Name Jose Benjamin Attending Physician Goldy Amador MD Current Medications Medications (Trade) Dose Ordered Sig/Almaz Route PRN Reason Start Time Stop Time Status Last Admin Dose Admin Acetaminophen (Tylenol) 650 mg Q6H PRN ORAL Mild Pain (Pain Scale 1-3) 06/01/19 14:15 07/01/19 14:14 Albuterol/ Ipratropium (Albuterol/ Ipratropium) 3 ml Q4H PRN HHN Shortness of Breath 05/29/19 08:15 06/03/19 08:14 Barium Sulfate (Varibar Honey) 250 ml NOW PRN MC RAD 05/30/19 13:00 06/02/19 12:56 Barium Sulfate (Varibar [place]) 240 ml NOW PRN MC RAD 05/30/19 13:00 06/02/19 12:56 Barium Sulfate (Varibar Pudding) 230 ml NOW PRN RAD 05/30/19 13:00 06/02/19 12:56 Betamethasone/ Clotrimazole (Lotrisone) 1 applic TWICE A DAY TOPIC 05/26/19 18:00 06/25/19 17:59 06/01/19 17:20 Chlorhexidine Gluconate (Shannon-Hex 2%) 1 applic DAILY@2000 TOPIC 05/26/19 20:00 06/17/19 19:59 05/31/19 20:00 Dextrose (Dextrose 50%) 25 ml Q30M PRN IV Hypoglycemia 05/26/19 06:45 06/16/19 21:44 Dextrose (Dextrose 50%) 50 ml Q30M PRN IV Hypoglycemia 05/26/19 06:45 06/16/19 21:44 Fluconazole (Diflucan) 200 mg QHS ORAL 06/01/19 21:00 06/04/19 20:59 Insulin Aspart (NovoLOG) AC+HS SUBQ 05/29/19 21:00 06/24/19 11:59 06/01/19 17:22 Lactulose (Cephulac) 15 gm THREE TIMES A DAY ORAL 05/31/19 09:00 06/17/19 10:29 06/01/19 17:20 Lidocaine (Xylocaine 5% cream) 1 applic DAILYPRN PRN TOPIC skin breakdown 05/31/19 11:15 06/30/19 11:14 Morphine Sulfate (Morphine Sulfate) 2 mg Q4H PRN IVP Severe Pain (Pain Scale 7-10) 05/27/19 12:30 06/03/19 12:29 06/01/19 09:48 Nystatin (Nystatin Cr) 1 applic DAILYPRN PRN TOPIC skin breakdown 05/31/19 11:15 06/30/19 11:14 Ondansetron HCl (Zofran) 4 mg Q6H PRN IVP Nausea & Vomiting 05/26/19 06:45 06/16/19 06:44 Pantoprazole (Protonix) 40 mg BIAC ORAL 06/01/19 16:30 07/01/19 16:29 06/01/19 17:20 Rifaximin (Xifaxan) 550 mg EVERY 12 HOURS ORAL 06/01/19 21:00 06/07/19 23:59 Triamcinolone Acetonide (Kenalog 0.5% Cr) 1 applic DAILYPRN PRN TOPIC skin breakdown 05/31/19 11:15 06/30/19 11:14 Zinc Oxide (Zinc Oxide) 1 applic DAILYPRN PRN TOPIC skin breakdown 05/31/19 11:15 06/30/19 11:14 Allergies: Coded Allergies: No Known Allergies (Unverified , 01/31/19) ROS Limited/Unobtainable: No Constitutional: Reports: no symptoms HEENT: Reports: no symptoms Cardiovascular: Reports: no symptoms Respiratory: Reports: no symptoms Gastrointestinal/Abdominal: Reports: no symptoms Genitourinary: Reports: no symptoms Neurologic/Psychiatric: Reports: no symptoms Subjective 58 YO F admitted with respiratory failure and presumed septic shock. Now UTI. Cover for Int Med-Dr Amador. Extubated 05/25/19. S/P paracentesis 05/25/19 Objective Last Vital Signs Date Time Temp Pulse Resp B/P (MAP) Pulse Ox O2 Delivery O2 Flow Rate FiO2 06/01/19 16:00 98.3 83 18 110/69 (83) 95 06/01/19 09:00 Room Air 05/31/19 11:42 2.0 28 Laboratory Tests Test 06/01/19 04:15 White Blood Count 8.7 K/UL (4.8-10.8) Red Blood Count 2.43 M/UL (4.20-5.40) L Hemoglobin 7.4 G/DL (12.0-16.0) L Hematocrit 24.9 % (37.0-47.0) L Mean Corpuscular Volume 103 FL (80-99) H Mean Corpuscular Hemoglobin 30.5 PG (27.0-31.0) Mean Corpuscular Hemoglobin Concent 29.7 G/DL (32.0-36.0) L Red Cell Distribution Width 27.0 % (11.6-14.8) H Platelet Count 92 K/UL (150-450) L Mean Platelet Volume 5.7 FL (6.5-10.1) L Neutrophils (%) (Auto) % (45.0-75.0) Lymphocytes (%) (Auto) % (20.0-45.0) Monocytes (%) (Auto) % (1.0-10.0) Eosinophils (%) (Auto) % (0.0-3.0) Basophils (%) (Auto) % (0.0-2.0) Differential Total Cells Counted 100 Neutrophils % (Manual) 77 % (45-75) H Lymphocytes % (Manual) 11 % (20-45) L Monocytes % (Manual) 9 % (1-10) Eosinophils % (Manual) 2 % (0-3) Basophils % (Manual) 1 % (0-2) Band Neutrophils 0 % (0-8) Platelet Estimate Decreased L Platelet Morphology Normal Hypochromasia 3+ Anisocytosis 4+ Macrocytosis 1+ Prothrombin Time 15.8 SEC (9.30-11.50) H Prothromb Time International Ratio 1.5 (0.9-1.1) H Sodium Level 144 MMOL/L (136-145) Potassium Level 3.5 MMOL/L (3.5-5.1) Chloride Level 113 MMOL/L (98-107) H Carbon Dioxide Level 19 MMOL/L (21-32) L Anion Gap 12 mmol/L (5-15) Blood Urea Nitrogen 76 mg/dL (7-18) H Creatinine 2.3 MG/DL (0.55-1.30) H Estimat Glomerular Filtration Rate 21.9 mL/min (>60) Glucose Level 134 MG/DL (74-106) H Calcium Level 8.4 MG/DL (8.5-10.1) L Total Bilirubin 16.6 MG/DL (0.2-1.0) H Direct Bilirubin 12.9 MG/DL (0.0-0.3) H Aspartate Amino Transf (AST/SGOT) 55 U/L (15-37) H Alanine Aminotransferase (ALT/SGPT) 14 U/L (12-78) Alkaline Phosphatase 162 U/L (46-116) H Total Protein 5.9 G/DL (6.4-8.2) L Albumin 1.1 G/DL (3.4-5.0) L Globulin 4.8 g/dL Albumin/Globulin Ratio 0.2 (1.0-2.7) L Intake and Output 05/31/19 06/01/19 19:00 07:00 Intake Total 1240 ml 4380 ml Output Total 4890 ml Balance 1240 ml -510 ml Intake Oral 480 ml 480 ml Free Water 150 ml IV Total 760 ml 3660 ml Tube Feeding 60 ml Other 30 ml Output Urine Total 250 ml Stool Total 100 ml Emesis 40 ml Other 4500 ml # Voids 3 3 # Bowel Movements 4 2 Objective PHYSICAL EXAMINATION: GENERAL: The patient is a well-developed and well-nourished obese female, who is intubated and sedated. HEENT: Eyes, pupils are equal and responsive to light and accommodation. Extraocular movements are intact. NECK: Supple without lymphadenopathy. CHEST: nasal canula; Coarse upper breath sounds, otherwise without wheezes or rales. CARDIOVASCULAR: Regular rhythm, rate. S1, S2 normal without murmurs, rubs, or gallops. ABDOMEN: Soft, distended with decreased bowel sounds. No evidence of hepatosplenomegaly. Currently, no rebound or guarding noted. EXTREMITIES: Negative for clubbing, cyanosis, or edema. RECTAL/GENITAL: Not performed. NEUROLOGICAL: Unable to assess. Assessment/Plan Assessment/Plan ASSESSMENT: This is a 58-year-old female. 1. Respiratory failure. 2. Urinary tract infection=klebsiella pneumoniae 3. Probable sepsis. 4. Probable septic shock. 5. Alcoholic cirrhosis of the liver. 6. Hypertension. 7. Diabetes type 2. 8. Ascites. 9. Hypercholesterolemia. TREATMENT: 1. Respiratory failure. A Pulmonary consultation has been obtained with Dr. Shireen Khan. Sputum=lizzy and klebsiella. We will follow recommendations of Pulmonary. 2. Urinary tract infection. An Infectious Disease consultation has been obtained with Dr. Hu. ABX=zosyn and fluconazole Urine culture=klebsiella 3. Probable sepsis-increased WBC. See ID note 4. Septic shock. 5. Alcoholic cirrhosis of liver. A Gastroenterology consultation has been obtained with Dr. Jon Torres. S/P paracentesis 05/19/19 6. Hypertension. The patient is currently hypotensive. Hold all antihypertensive medications. 7. Diabetes type 2. A NovoLog sliding scale has been instituted. 8. Ascites, as above. A Gastroenterology consultation has been obtained with Dr. Jon Torres. S/P paracentesis 05/19/19 and 05/25/19 9. Hypercholesterolemia. Jose Benjamin MD Jun 01, 2019 19:00
--- NOTE | 2019-06-01 19:25 | NUR ---
HAND-OFF: Report given to THOMAS LARSEN.
[2019-06-01 20:00] VITALS: BP 101/62
--- NOTE | 2019-06-01 20:04 | Surgery Progress Note ---
Surgery Progress Note Subjective Procedure Performed sepsis Additional Comments ill appearing labs noted not improving tolerating some diet hospice discussion has been had as per Dr. Khan note Objective Last 24 Hour Vital Signs Date Time Temp Pulse Resp B/P (MAP) Pulse Ox O2 Delivery O2 Flow Rate FiO2 06/01/19 16:00 98.3 83 18 110/69 (83) 95 06/01/19 12:00 96.1 75 17 119/74 (89) 95 06/01/19 10:18 97.7 06/01/19 09:00 Room Air 06/01/19 08:00 97.7 82 17 112/63 (79) 99 06/01/19 04:00 98.5 86 20 117/54 (75) 96 06/01/19 00:00 97.7 85 24 110/63 (79) 94 05/31/19 21:00 Room Air I&O Intake and Output 05/31/19 06/01/19 19:00 07:00 Intake Total 1240 ml 4380 ml Output Total 4890 ml Balance 1240 ml -510 ml Intake Oral 480 ml 480 ml Free Water 150 ml IV Total 760 ml 3660 ml Tube Feeding 60 ml Other 30 ml Output Urine Total 250 ml Stool Total 100 ml Emesis 40 ml Other 4500 ml # Voids 3 3 # Bowel Movements 4 2 Cardiovascular: RSR Respiratory: clear Abdomen: soft, non-tender, present bowel sounds Extremities: no cyanosis Laboratory Tests Test 06/01/19 04:15 White Blood Count 8.7 K/UL (4.8-10.8) Red Blood Count 2.43 M/UL (4.20-5.40) L Hemoglobin 7.4 G/DL (12.0-16.0) L Hematocrit 24.9 % (37.0-47.0) L Mean Corpuscular Volume 103 FL (80-99) H Mean Corpuscular Hemoglobin 30.5 PG (27.0-31.0) Mean Corpuscular Hemoglobin Concent 29.7 G/DL (32.0-36.0) L Red Cell Distribution Width 27.0 % (11.6-14.8) H Platelet Count 92 K/UL (150-450) L Mean Platelet Volume 5.7 FL (6.5-10.1) L Neutrophils (%) (Auto) % (45.0-75.0) Lymphocytes (%) (Auto) % (20.0-45.0) Monocytes (%) (Auto) % (1.0-10.0) Eosinophils (%) (Auto) % (0.0-3.0) Basophils (%) (Auto) % (0.0-2.0) Differential Total Cells Counted 100 Neutrophils % (Manual) 77 % (45-75) H Lymphocytes % (Manual) 11 % (20-45) L Monocytes % (Manual) 9 % (1-10) Eosinophils % (Manual) 2 % (0-3) Basophils % (Manual) 1 % (0-2) Band Neutrophils 0 % (0-8) Platelet Estimate Decreased L Platelet Morphology Normal Hypochromasia 3+ Anisocytosis 4+ Macrocytosis 1+ Prothrombin Time 15.8 SEC (9.30-11.50) H Prothromb Time International Ratio 1.5 (0.9-1.1) H Sodium Level 144 MMOL/L (136-145) Potassium Level 3.5 MMOL/L (3.5-5.1) Chloride Level 113 MMOL/L (98-107) H Carbon Dioxide Level 19 MMOL/L (21-32) L Anion Gap 12 mmol/L (5-15) Blood Urea Nitrogen 76 mg/dL (7-18) H Creatinine 2.3 MG/DL (0.55-1.30) H Estimat Glomerular Filtration Rate 21.9 mL/min (>60) Glucose Level 134 MG/DL (74-106) H Calcium Level 8.4 MG/DL (8.5-10.1) L Total Bilirubin 16.6 MG/DL (0.2-1.0) H Direct Bilirubin 12.9 MG/DL (0.0-0.3) H Aspartate Amino Transf (AST/SGOT) 55 U/L (15-37) H Alanine Aminotransferase (ALT/SGPT) 14 U/L (12-78) Alkaline Phosphatase 162 U/L (46-116) H Total Protein 5.9 G/DL (6.4-8.2) L Albumin 1.1 G/DL (3.4-5.0) L Globulin 4.8 g/dL Albumin/Globulin Ratio 0.2 (1.0-2.7) L Plan Problems: (1) Sacral decubitus ulcer Assessment & Plan: Pt presented on admission with icteric sclerae and skin. Moisture intertrigo Madhu/left abd folds.(1.5cm long). Moisture intertrigo R groin(8.5cm) slit noted with small amt bleeding. Mons pubis,labia majora and medial aspects of both upper thigh erythematous . Partial thickness wound noted to L thoracic. Base of wound is moist and viable. Edges flat and adherent to base of wound.No exudate noted. (L) 0.6cm x (W)0.8cm. Non-blanchable erythema sacrum,R and L buttocks with scattered shearing .Full thickness pressure injury noted to sacrococcygeal area. Base of wound is steve with small amt slough noted in center.(L) 0.7cm x (W)0.3cm. Area around wound is erythematous non-blanchable with shearing . Full thickness pressure injury R buttocks . Base of wound is moist, with Slough in center.Surrounding area erythematous and denuded. Evolving serous blister L heel.Base of wound is fluctuant with delineated,red margins.(L)3.5cm x (W)5.5cm. Periwound without erythema or fluctuance. R heel firm and blanchable. Tx.Plan: Apply Triad Paste to Sacrum and R buttocks. Cover wounds with Optifoam drsg. Change every 3 days and PRN. Apply Triad Paste to abd folds, R groin,Mons pubis, medial aspects of both upper thighs with each perineal care. Apply Optifoam drsg L thoracic wound. Cover with Optifoam drsg. Change every 3 days and prn. Apply Cavilon Skin Barrier to both heels. Cover each heel with Optifoam drsg. Change every 7 days and prn. APM/CHRISSY Mattress. Reposition at least every 2hours or as tolerated. Off-load heels with pillow (2) Liver cirrhosis Assessment & Plan: DAILY ESTIMATED NEEDS: Needs based on Cirrhosis, Critical care, sepsis/ 58kg adj 22-30 kcals/kg 9178-4970 total kcals 1.2-2 g protein/kg 70-116 g total protein 20-25 mL/kg 0297-0090 total fluid mLs NUTRITION DIAGNOSIS: * Swallowing difficulty R/T respiratory status as evidenced by pt orally intubated, NPO at this time * Altered nutrition related lab values R/T cirrhosis, sepsis, clinical condition as evidenced by elev T bili (5.5), elev NH3 (152), elev LA (6.7), elev creat (2.4). CURRENT TF:NPO PO DIET RECOMMENDATIONS: [employer]ORTER eval post extubation -> LOW NA ENTERAL NUTRITION RECOMMENDATIONS: Glucerna 1.2 @ 55ml/hr x 24 hrs to provide 1320ml, 1584kcal, 79g prot, 1063ml free water * Rec Glucerna 1.2 to maintain good BG control: h/o DM * As medically appropriate, initiate Glucerna 1.2 @ 25ml/hr x 6 hrs * Advance 10ml q 4-6 hrs as tolerated to goal rate. * HOB over 30 degrees/ water flush per MD. ADDITIONAL RECOMMENDATIONS: * Calibrated bedscale wt for accurate CBW * W/ TF, monitor need for NISS: h/o DM * F/up w/ wound eval: add Miquel 1pkt BID + VIt C 250mg QD * Monitor lytes, replete as needed . (3) Acute on chronic alcoholic liver disease (4) Sepsis Assessment & Plan: Restore insufficiency, leukocytosis, anemia, lactic acidosis , liver insufficiency, sepsis US noted and okay paracentesis PICC Continue IV antibiotics cont trend labs diet as tolerated We will monitor and follow with recommendations Efrain Whitaker Jun 01, 2019 20:04
--- NOTE | 2019-06-01 20:22 | NUR ---
NURSE NOTES: Received report from AM CHAVA Mckeon. Patient is lying supine in bed. Patient is jaundiced with visible ascites of the abdomen. No c/o of SOB or pain at this time on room air. Draper catheter is draining clear yellow urine to gravity to collection bag. Patient is alert and oriented x2 to name and place. Bilateral wrist restraints are applied with no s/s of redness or irritation. Bed in low and locked position with call light in reach. Addendum: 06/01/19 at 2123 by Ayden Boykin RN Patient is draining dark gisselle urine to Draper catheter and complains of tender abdominal pain 03/09. Medication administered per eMAR.
[2019-06-01] MEDS ORDERED: Fluconazole 100mg tab ORAL SCH (21:00)
[2019-06-01] MEDS: Dyna-Hex 2% Top Sol 2oz TOPIC SCH (21:02)
[2019-06-02] VITALS: BP 126/60
[2019-06-02 04:00] VITALS: BP 108/62
[2019-06-02] MEDS: Morphine Sulfate 2mg/ml Inj(IV/IM USE ONLY) IVP PRN (04:16)
[2019-06-02] MEDS: NovoLOG Insulin Flexpen SUBQ SCH ×3 (05:55→17:38)
--- NOTE | 2019-06-02 07:30 | NUR ---
NURSE NOTES: Received pt from THOMAS LARSEN. Pt is confused and orient x2. pt is in RA, no SOB or acute respiratory distress noted. Pt has intact PICC RICK SL.pt has Draper cath in place is running well. all needs attended, bed is locked and is in the lowest position. call light within easy reach. will continue to monitor.
--- NOTE | 2019-06-02 07:35 | NUR ---
HAND-OFF: Report given to CHAVA Mckeon. Patient in stable condition.
[2019-06-02 08:00] VITALS: BP 110/66
[2019-06-02] MEDS: Lotrisone Cream 15gm TOPIC SCH (08:40)
[2019-06-02] MEDS: Lactulose 20gm/30ml UDC ORAL SCH ×2 (08:40→13:00)
--- NOTE | 2019-06-02 09:26 | NUR ---
RD ASSESSMENT & RECOMMENDATIONS SEE CARE ACTIVITY FOR COMPLETE ASSESSMENT DAILY ESTIMATED NEEDS: Needs based on Cirrhosis, wound/ 58kg adj 25-30 kcals/kg 8962-9807 total kcals 1.25-1.5 g protein/kg 72-87 g total protein 20-25 mL/kg 5356-6230 total fluid mLs NUTRITION DIAGNOSIS: * Swallowing difficulty R/T respiratory status as evidenced by pt orally intubated, now s/p extubation, s/p pulling out of NGT, NPO, pending HOSPITALITY SPECIALIST eval. * Altered nutrition related lab values R/T cirrhosis, sepsis, clinical condition as evidenced by elev T bili (16.6), elev NH3 (152 ->wnl), elev LA, elev creat (2.3). (CURRENT DIET:CCHO MED / liquify puree NTL + Glucerna TID) PO DIET RECOMMENDATIONS--->>> LOW NA / texture per HOSPITALITY SPECIALIST ADDITIONAL RECOMMENDATIONS: * Calibrated bedscale wt for accurate CBW * Wound healing: add MVI x 1, VIt C 500mg QD ZnSO4 220mg QD x 10 days PAU BID as tolerated * Monitor PO intake closely w/ diet order -> Glucerna BID w/ poor PO
[2019-06-02 09:31] LABS: HEMOGLOBIN 7.6 G/DL (12.0-16.0); MEAN CORPUSCULAR VOLUME 102 FL (80-99); PLATELET COUNT 111 K/UL (150-450); RED BLOOD COUNT 2.46 M/UL (4.20-5.40); RED CELL DISTRIBUTION WIDTH 27.2 % (11.6-14.8); WHITE BLOOD COUNT 11.3 K/UL (4.8-10.8)
[2019-06-02 09:47] LABS: ANION GAP 13 mmol/L (5-15); BLOOD UREA NITROGEN 74 mg/dL (7-18); CALCIUM 8.2 MG/DL (8.5-10.1); CARBON DIOXIDE 16 MMOL/L (21-32); CHLORIDE 105 MMOL/L (98-107); CREATININE 2.4 MG/DL (0.55-1.30); POTASSIUM 3.9 MMOL/L (3.5-5.1); SODIUM 134 MMOL/L (136-145)
--- NOTE | 2019-06-02 09:57 | Infectious Diseases Prog Note ---
Assessment/Plan Assessment/Plan Assessment/Plan 58 yo female with PMHx of Liver cirrhosis with recurrent ascites, HTN, ETOH abuse, DM and Hepatic encephalopathy who presented to the ED on 05/17/19 with AMS. Lt hand tender and mild erythema , Sp Sepsis, sp Probable UTI UCx : lizzy Urine Cx 05/17/19 - K. pneumo Probable VAP Scx: yeast 05/25 CXR : Possibly new or increased bilateral infrahilar opacities, could represent small patchy infiltrates. Ascites no evid of SBP \ 05/25 Sp US guided paracentesis, yielding 4.1 liters of fluid Cell : Perit F cell count: 65 05/19 sp paracentesis ( no Cx or Cell count sent) AMS, sp Hepatic encephalopathy ? vs Urosepsis Leukocytosis , Sp No fever Hx Gram negative bacteremia -05/03 BCx 10/04 ACHROMOBACTER XYLOSOXIDANS (S Zosyn, Ceftazidime, bactrim; R cefepime; I imipenem, Levaquin); 05/05 Bcx NTD Recurrent ascites -05/05 SP paracentesis: 3.5 L removed wbc 170 (N 49%); cx Neg - -03/11/19 sp paracentesis:fluid wbc 97 (N 34%) 05/25 Sp Extubation HTN DM Liver Cirrhosis EtOH abuse Plan: cont Diflucan # 7/14, upon DC will change to po, to complete course - 05/30 Zosyn # 7 - 05/27 Sp Zyvox # 2 -05/24 Sp Cefazolin # 3 - 05/22/19 SP Cefepime #5 Flagyl #5 and Vancomycin #5 -Monitor CBC/CMP Subjective Allergies: Coded Allergies: No Known Allergies (Unverified , 01/31/19) Subjective comfortable Objective Vital Signs Last 24 Hour Vital Signs Date Time Temp Pulse Resp B/P (MAP) Pulse Ox O2 Delivery O2 Flow Rate FiO2 06/02/19 08:00 97.2 80 19 110/66 (81) 96 06/02/19 04:00 97.8 83 20 108/62 (77) 94 06/02/19 00:00 97.7 83 18 126/60 (82) 96 06/01/19 23:20 84 24 98 Nasal Cannula 2.0 28 06/01/19 21:00 Room Air 06/01/19 20:00 97.5 79 18 101/62 (75) 95 06/01/19 16:00 98.3 83 18 110/69 (83) 95 06/01/19 12:00 96.1 75 17 119/74 (89) 95 06/01/19 10:18 97.7 Height (Feet): 5 Height (Inches): 0.00 Weight (Pounds): 207 HEENT: mucous membranes moist Respiratory/Chest: normal breath sounds Cardiovascular: regular rhythm Abdomen: no organomegaly Laboratory Tests Test 06/02/19 09:20 White Blood Count 11.3 K/UL (4.8-10.8) H Red Blood Count 2.46 M/UL (4.20-5.40) L Hemoglobin 7.6 G/DL (12.0-16.0) L Hematocrit 25.0 % (37.0-47.0) L Mean Corpuscular Volume 102 FL (80-99) H Mean Corpuscular Hemoglobin 31.0 PG (27.0-31.0) Mean Corpuscular Hemoglobin Concent 30.5 G/DL (32.0-36.0) L Red Cell Distribution Width 27.2 % (11.6-14.8) H Platelet Count 111 K/UL (150-450) L Mean Platelet Volume 6.8 FL (6.5-10.1) Neutrophils (%) (Auto) % (45.0-75.0) Lymphocytes (%) (Auto) % (20.0-45.0) Monocytes (%) (Auto) % (1.0-10.0) Eosinophils (%) (Auto) % (0.0-3.0) Basophils (%) (Auto) % (0.0-2.0) Neutrophils % (Manual) Pending Lymphocytes % (Manual) Pending Platelet Estimate Pending Platelet Morphology Pending Sodium Level 134 MMOL/L (136-145) L Potassium Level 3.9 MMOL/L (3.5-5.1) Chloride Level 105 MMOL/L (98-107) Carbon Dioxide Level 16 MMOL/L (21-32) L Anion Gap 13 mmol/L (5-15) Blood Urea Nitrogen 74 mg/dL (7-18) H Creatinine 2.4 MG/DL (0.55-1.30) H Estimat Glomerular Filtration Rate 20.8 mL/min (>60) Glucose Level 157 MG/DL (74-106) H Calcium Level 8.2 MG/DL (8.5-10.1) L Current Medications Medications (Trade) Dose Ordered Sig/Almaz Route PRN Reason Start Time Stop Time Status Last Admin Dose Admin Acetaminophen (Tylenol) 650 mg Q6H PRN ORAL Mild Pain (Pain Scale 1-3) 06/01/19 14:15 07/01/19 14:14 Albuterol/ Ipratropium (Albuterol/ Ipratropium) 3 ml Q4H PRN HHN Shortness of Breath 05/29/19 08:15 06/03/19 08:14 Barium Sulfate (Varibar Honey) 250 ml NOW PRN RAD 05/30/19 13:00 06/02/19 12:56 Barium Sulfate (Varibar Eustace) 240 ml NOW PRN RAD 05/30/19 13:00 06/02/19 12:56 Barium Sulfate (Varibar Pudding) 230 ml NOW PRN RAD 05/30/19 13:00 06/02/19 12:56 Betamethasone/ Clotrimazole (Lotrisone) 1 applic TWICE A DAY TOPIC 05/26/19 18:00 06/25/19 17:59 06/02/19 08:40 Chlorhexidine Gluconate (Shannon-Hex 2%) 1 applic DAILY@1999 TOPIC 05/26/19 20:00 06/17/19 19:59 06/01/19 21:02 Dextrose (Dextrose 50%) 25 ml Q30M PRN IV Hypoglycemia 05/26/19 06:45 06/16/19 21:44 Dextrose (Dextrose 50%) 50 ml Q30M PRN IV Hypoglycemia 05/26/19 06:45 06/16/19 21:44 Fluconazole (Diflucan) 200 mg QHS ORAL 06/01/19 21:00 06/04/19 20:59 06/01/19 21:02 Insulin Aspart (NovoLOG) AC+HS SUBQ 05/29/19 21:00 06/24/19 11:59 06/02/19 05:55 Lactulose (Cephulac) 15 gm THREE TIMES A DAY ORAL 05/31/19 09:00 06/17/19 10:29 06/02/19 08:40 Lidocaine (Xylocaine 5% cream) 1 applic DAILYPRN PRN TOPIC skin breakdown 05/31/19 11:15 06/30/19 11:14 Morphine Sulfate (Morphine Sulfate) 2 mg Q4H PRN IVP Severe Pain (Pain Scale 7-10) 05/27/19 12:30 06/03/19 12:29 06/02/19 04:16 Nystatin (Nystatin Cr) 1 applic DAILYPRN PRN TOPIC skin breakdown 05/31/19 11:15 06/30/19 11:14 Ondansetron HCl (Zofran) 4 mg Q6H PRN IVP Nausea & Vomiting 05/26/19 06:45 06/16/19 06:44 Pantoprazole (Protonix) 40 mg BIAC ORAL 06/01/19 16:30 07/01/19 16:29 06/02/19 05:52 Rifaximin (Xifaxan) 550 mg EVERY 12 HOURS ORAL 06/01/19 21:00 06/07/19 23:59 06/02/19 08:40 Triamcinolone Acetonide (Kenalog 0.5% Cr) 1 applic DAILYPRN PRN TOPIC skin breakdown 05/31/19 11:15 06/30/19 11:14 Zinc Oxide (Zinc Oxide) 1 applic DAILYPRN PRN TOPIC skin breakdown 05/31/19 11:15 06/30/19 11:14 06/01/19 21:08 Krzysztof Hu MD Jun 02, 2019 09:57
--- NOTE | 2019-06-02 11:02 | Nephrology Progress Note ---
Assessment/Plan Problem List: (1) ATN (acute tubular necrosis) (2) Sepsis (3) Acute respiratory failure (4) Acute on chronic alcoholic liver disease Assessment: worsening bili (5) Anemia Assessment Renal failure- Acute On May 09, 2019 normal renal parameters Severe Anemia, Acute on chronic- Acute part from right groin attempted line insertion Severe HypoAlbuminemia, Cirrhosis, ALD, Ascites Sepsis- High lactic Acid Acute respiratory failure Previous gram negative bacteremia / Sepsis Plan extubated 05/25 Hydrate- slow K supplement as needed Antibiotics Monitor renal parameters- Cr 2.3 stable avoid nephrotoxics transfuse as needed- per orders discussed with RN DNR Subjective ROS Limited/Unobtainable: No Constitutional: Reports: malaise, weakness Objective Objective Last 24 Hour Vital Signs Date Time Temp Pulse Resp B/P (MAP) Pulse Ox O2 Delivery O2 Flow Rate FiO2 06/02/19 09:00 Room Air 06/02/19 08:00 97.2 80 19 110/66 (81) 96 06/02/19 04:00 97.8 83 20 108/62 (77) 94 06/02/19 00:00 97.7 83 18 126/60 (82) 96 06/01/19 23:20 84 24 98 Nasal Cannula 2.0 28 06/01/19 21:00 Room Air 06/01/19 20:00 97.5 79 18 101/62 (75) 95 06/01/19 16:00 98.3 83 18 110/69 (83) 95 06/01/19 12:00 96.1 75 17 119/74 (89) 95 Intake and Output 06/01/19 06/02/19 18:59 06:59 Intake Total 965 ml Output Total 200 ml Balance 965 ml -200 ml IV Total 165 ml Other 800 ml Output Urine Total 200 ml # Voids 1 # Bowel Movements 2 1 Laboratory Tests 06/02/19 09:20: White Blood Count 11.3H, Red Blood Count 2.46L, Hemoglobin 7.6L, Hematocrit 25.0L, Mean Corpuscular Volume 102H, Mean Corpuscular Hemoglobin 31.0, Mean Corpuscular Hemoglobin Concent 30.5L, Red Cell Distribution Width 27.2H, Platelet Count 111L, Mean Platelet Volume 6.8, Neutrophils (%) (Auto) , Lymphocytes (%) (Auto) , Monocytes (%) (Auto) , Eosinophils (%) (Auto) , Basophils (%) (Auto) , Differential Total Cells Counted 100, Neutrophils % ( Manual) 79H, Lymphocytes % (Manual) 17L, Monocytes % (Manual) 3, Eosinophils % ( Manual) 1, Basophils % (Manual) 0, Band Neutrophils 0, Nucleated Red Blood Cells 2, Platelet Estimate DecreasedL, Platelet Morphology Normal, Anisocytosis 2+, Sodium Level 134L, Potassium Level 3.9, Chloride Level 105, Carbon Dioxide Level 16L, Anion Gap 13, Blood Urea Nitrogen 74H, Creatinine 2.4H, Estimat Glomerular Filtration Rate 20.8, Glucose Level 157H, Calcium Level 8.2L Height (Feet): 5 Height (Inches): 0.00 Weight (Pounds): 207 General Appearance: no apparent distress Respiratory/Chest: decreased breath sounds Abdomen: distended Objective no change Jovany Byers MD Jun 02, 2019 11:02
--- NOTE | 2019-06-02 11:39 | NUR ---
WEEKLY SWALLOW/SPEECH THERAPY SUMMARY: SEEN FOR DYSPHAGIA, SEE SWALLOW EVAL AND MODIFIED BARIUM SWALLOW STUDY. REVIEWED IMAGES AND COMPLETED REPORT. LUNG INFILTRATES ON 05/25/19 CXR (PT HAS HIGH ASPIRATION RISK IF PRECAUTIONS ARE NOT STRICTLY USED). GOALS NOT CONSISTENTLY MET FOR INTAKE (VARIES FROM REFUSED MEAL TO 75% INTAKE) ON LIQUIFIED PUREED LIKE NECTAR THICK SOUP DIET. GOALS MET FOR NEW STAFF (SCOTT) EDUCATED/TRAINED IN POSTED PRECAUTIONS PATIENT NOT RECEPTIVE TO PO TRIALS AT THIS TIME, SHE SAID SHE ALREADY ATE. VOICE IS STILL SOFT AND SLIGHTLY HOARSE. (IF POOR VOICE QUALITY PERSISTS CONSIDER OUTPT ENT TO CHECK VOCAL FOLDS). PLAN: CONTINUE WITH PLAN OF CARE IN MOD BARIUM SWALLOW STUDY REPORT.
--- NOTE | 2019-06-02 11:55 | NUR ---
UPDATED: WEEKLY SWALLOW/SPEECH THERAPY SUMMARY: SEEN FOR DYSPHAGIA, SEE SWALLOW EVAL AND MODIFIED BARIUM SWALLOW STUDY. REVIEWED IMAGES AND COMPLETED REPORT. LUNG INFILTRATES ON 05/25/19 CXR (PT HAS HIGH ASPIRATION RISK IF PRECAUTIONS ARE NOT STRICTLY USED). GOALS NOT CONSISTENTLY MET FOR INTAKE (VARIES FROM REFUSED MEAL TO 75% INTAKE) ON LIQUIFIED PUREED LIKE NECTAR THICK SOUP DIET. GOALS MET FOR NEW STAFF (SCOTT) EDUCATED/TRAINED IN POSTED PRECAUTIONS PATIENT NOT RECEPTIVE TO PO TRIALS AT THIS TIME, SHE SAID SHE ALREADY ATE. VOICE IS STILL SOFT AND SLIGHTLY HOARSE. (IF POOR VOICE QUALITY PERSISTS CONSIDER OUTPT ENT TO CHECK VOCAL FOLDS). PATIENT IS NOT RECEPTIVE TO LEARNING SWALLOW EXERCISES NOR ASP PRECAUTIONS/STRATEGIES AT THIS TIME. PLAN: CONTINUE WITH PLAN OF CARE IN MOD BARIUM SWALLOW STUDY REPORT.
[2019-06-02 12:00] VITALS: BP 106/71
--- NOTE | 2019-06-02 12:02 | GI Progress Note ---
Assessment/Plan Problems: (1) Liver cirrhosis ICD Codes: K74.60 - Unspecified cirrhosis of liver SNOMED: 35049360 (2) Ascites ICD Codes: R18.8 - Other ascites SNOMED: 685118766 (3) Anemia ICD Codes: D64.9 - Anemia, unspecified SNOMED: 756430163 (4) Hepatic encephalopathy ICD Codes: K72.90 - Hepatic failure, unspecified without coma SNOMED: 69463944 (5) ETOH abuse ICD Codes: F10.10 - Alcohol abuse, uncomplicated SNOMED: 03757846 Status: stable, progressing Status Narrative Discussed with Dr. Torres. Assessment/Plan lactulose >> decrease by half cont Xifaxan neg stool ob fu H&H and transfuse prn ppi abx per ID speech eval appreciated on puree diet EGD canceled given last EGD on 03/2019 dc planning The patient was seen and examined at bedside and all new and available data was reviewed in the patients chart. I agree with the above findings, impression and plan. (Patient seen earlier today. Signature stamp does not reflect patient encounter time.). - Jon Torres MD Subjective Subjective limited Objective Last 24 Hour Vital Signs Date Time Temp Pulse Resp B/P (MAP) Pulse Ox O2 Delivery O2 Flow Rate FiO2 06/02/19 09:00 Room Air 06/02/19 08:00 97.2 80 19 110/66 (81) 96 06/02/19 04:00 97.8 83 20 108/62 (77) 94 06/02/19 00:00 97.7 83 18 126/60 (82) 96 06/01/19 23:20 84 24 98 Nasal Cannula 2.0 28 06/01/19 21:00 Room Air 06/01/19 20:00 97.5 79 18 101/62 (75) 95 06/01/19 16:00 98.3 83 18 110/69 (83) 95 Intake and Output 06/01/19 06/02/19 18:59 06:59 Intake Total 965 ml Output Total 200 ml Balance 965 ml -200 ml IV Total 165 ml Other 800 ml Output Urine Total 200 ml # Voids 1 # Bowel Movements 2 1 Laboratory Tests Test 06/02/19 09:20 White Blood Count 11.3 K/UL (4.8-10.8) H Red Blood Count 2.46 M/UL (4.20-5.40) L Hemoglobin 7.6 G/DL (12.0-16.0) L Hematocrit 25.0 % (37.0-47.0) L Mean Corpuscular Volume 102 FL (80-99) H Mean Corpuscular Hemoglobin 31.0 PG (27.0-31.0) Mean Corpuscular Hemoglobin Concent 30.5 G/DL (32.0-36.0) L Red Cell Distribution Width 27.2 % (11.6-14.8) H Platelet Count 111 K/UL (150-450) L Mean Platelet Volume 6.8 FL (6.5-10.1) Neutrophils (%) (Auto) % (45.0-75.0) Lymphocytes (%) (Auto) % (20.0-45.0) Monocytes (%) (Auto) % (1.0-10.0) Eosinophils (%) (Auto) % (0.0-3.0) Basophils (%) (Auto) % (0.0-2.0) Differential Total Cells Counted 100 Neutrophils % (Manual) 79 % (45-75) H Lymphocytes % (Manual) 17 % (20-45) L Monocytes % (Manual) 3 % (1-10) Eosinophils % (Manual) 1 % (0-3) Basophils % (Manual) 0 % (0-2) Band Neutrophils 0 % (0-8) Nucleated Red Blood Cells 2 /100 WBC Platelet Estimate Decreased L Platelet Morphology Normal Anisocytosis 2+ Sodium Level 134 MMOL/L (136-145) L Potassium Level 3.9 MMOL/L (3.5-5.1) Chloride Level 105 MMOL/L (98-107) Carbon Dioxide Level 16 MMOL/L (21-32) L Anion Gap 13 mmol/L (5-15) Blood Urea Nitrogen 74 mg/dL (7-18) H Creatinine 2.4 MG/DL (0.55-1.30) H Estimat Glomerular Filtration Rate 20.8 mL/min (>60) Glucose Level 157 MG/DL (74-106) H Calcium Level 8.2 MG/DL (8.5-10.1) L Height (Feet): 5 Height (Inches): 0.00 Weight (Pounds): 207 General Appearance: WD/WN, no apparent distress, alert Cardiovascular: normal rate Respiratory/Chest: normal breath sounds, no respiratory distress Abdominal Exam: normal bowel sounds, non tender, soft Extremities: normal range of motion, non-tender Indu Lane NP Jun 02, 2019 12:02
--- NOTE | 2019-06-02 14:14 | Pulmonology Progress Note ---
Assessment/Plan Problems: (1) End of life care (2) Acute respiratory failure (3) Acute metabolic encephalopathy (4) Acute on chronic alcoholic liver disease (5) Anasarca (6) Anemia (7) Thrombocytopenia (8) Coagulopathy (9) Sacral decubitus ulcer (10) ETOH abuse Assessment/Plan visibly icteric doing better more awake, looks very yellow symptomatic treatment bilirubin is 16 today will call hospice evaluation, considering grim prognosis. Claude in [place] agreed with hospice. He needs to talk with other son, Matteo to make the final decision. Subjective Constitutional: Reports: no symptoms HEENT: Repors: no symptoms Allergies: Coded Allergies: No Known Allergies (Unverified , 01/31/19) Objective Last 24 Hour Vital Signs Date Time Temp Pulse Resp B/P (MAP) Pulse Ox O2 Delivery O2 Flow Rate FiO2 06/02/19 12:00 98.3 87 19 106/71 (83) 96 06/02/19 09:00 Room Air 06/02/19 08:00 97.2 80 19 110/66 (81) 96 06/02/19 04:00 97.8 83 20 108/62 (77) 94 06/02/19 00:00 97.7 83 18 126/60 (82) 96 06/01/19 23:20 84 24 98 Nasal Cannula 2.0 28 06/01/19 21:00 Room Air 06/01/19 20:00 97.5 79 18 101/62 (75) 95 06/01/19 16:00 98.3 83 18 110/69 (83) 95 Intake and Output 06/01/19 06/02/19 18:59 06:59 Intake Total 965 ml Output Total 200 ml Balance 965 ml -200 ml IV Total 165 ml Other 800 ml Output Urine Total 200 ml # Voids 1 # Bowel Movements 2 1 General Appearance: WD/WN HEENT: normocephalic, anicteric Respiratory/Chest: chest wall non-tender, lungs clear Breasts: no masses Cardiovascular: normal rate Abdomen: normal bowel sounds, no mass Extremities: no clubbing Laboratory Tests 06/02/19 09:20: White Blood Count 11.3H, Red Blood Count 2.46L, Hemoglobin 7.6L, Hematocrit 25.0L, Mean Corpuscular Volume 102H, Mean Corpuscular Hemoglobin 31.0, Mean Corpuscular Hemoglobin Concent 30.5L, Red Cell Distribution Width 27.2H, Platelet Count 111L, Mean Platelet Volume 6.8, Neutrophils (%) (Auto) , Lymphocytes (%) (Auto) , Monocytes (%) (Auto) , Eosinophils (%) (Auto) , Basophils (%) (Auto) , Differential Total Cells Counted 100, Neutrophils % ( Manual) 79H, Lymphocytes % (Manual) 17L, Monocytes % (Manual) 3, Eosinophils % ( Manual) 1, Basophils % (Manual) 0, Band Neutrophils 0, Nucleated Red Blood Cells 2, Platelet Estimate DecreasedL, Platelet Morphology Normal, Anisocytosis 2+, Sodium Level 134L, Potassium Level 3.9, Chloride Level 105, Carbon Dioxide Level 16L, Anion Gap 13, Blood Urea Nitrogen 74H, Creatinine 2.4H, Estimat Glomerular Filtration Rate 20.8, Glucose Level 157H, Calcium Level 8.2L Current Medications Medications (Trade) Dose Ordered Sig/Almaz Route PRN Reason Start Time Stop Time Status Last Admin Dose Admin Acetaminophen (Tylenol) 650 mg Q6H PRN ORAL Mild Pain (Pain Scale 1-3) 06/01/19 14:15 07/01/19 14:14 Albuterol/ Ipratropium (Albuterol/ Ipratropium) 3 ml Q4H PRN HHN Shortness of Breath 05/29/19 08:15 06/03/19 08:14 Betamethasone/ Clotrimazole (Lotrisone) 1 applic TWICE A DAY TOPIC 05/26/19 18:00 06/25/19 17:59 06/02/19 08:40 Chlorhexidine Gluconate (Shannon-Hex 2%) 1 applic DAILY@1999 TOPIC 05/26/19 20:00 06/17/19 19:59 06/01/19 21:02 Dextrose (Dextrose 50%) 25 ml Q30M PRN IV Hypoglycemia 05/26/19 06:45 06/16/19 21:44 Dextrose (Dextrose 50%) 50 ml Q30M PRN IV Hypoglycemia 05/26/19 06:45 06/16/19 21:44 Fluconazole/ Sodium Chloride 100 ml @ 100 mls/hr Q24H IV 06/02/19 21:00 06/09/19 20:59 Insulin Aspart (NovoLOG) AC+HS SUBQ 05/29/19 21:00 06/24/19 11:59 06/02/19 12:52 Lactulose (Cephulac) 15 gm THREE TIMES A DAY ORAL 05/31/19 09:00 06/17/19 10:29 06/02/19 08:40 Lidocaine (Xylocaine 5% cream) 1 applic DAILYPRN PRN TOPIC skin breakdown 05/31/19 11:15 06/30/19 11:14 Morphine Sulfate (Morphine Sulfate) 2 mg Q4H PRN IVP Severe Pain (Pain Scale 7-10) 05/27/19 12:30 06/03/19 12:29 06/02/19 04:16 Nystatin (Nystatin Cr) 1 applic DAILYPRN PRN TOPIC skin breakdown 05/31/19 11:15 06/30/19 11:14 Ondansetron HCl (Zofran) 4 mg Q6H PRN IVP Nausea & Vomiting 05/26/19 06:45 06/16/19 06:44 Pantoprazole (Protonix) 40 mg BIAC ORAL 06/01/19 16:30 07/01/19 16:29 06/02/19 05:52 Rifaximin (Xifaxan) 550 mg EVERY 12 HOURS ORAL 06/01/19 21:00 06/07/19 23:59 06/02/19 08:40 Triamcinolone Acetonide (Kenalog 0.5% Cr) 1 applic DAILYPRN PRN TOPIC skin breakdown 05/31/19 11:15 06/30/19 11:14 Zinc Oxide (Zinc Oxide) 1 applic DAILYPRN PRN TOPIC skin breakdown 05/31/19 11:15 06/30/19 11:14 06/01/19 21:08 Shireen Khan MD Jun 02, 2019 14:14
--- NOTE | 2019-06-02 15:28 | NUR ---
*-* DISCHARGE PLANING *-* PATIENT HAS BEEN REFERRED TO: [facility] P: [phone] F: [phone]
--- NOTE | 2019-06-02 15:52 | NUR ---
NURSE NOTES: Wound treatment on the groins and sacral done as order and pt tolerated well. will continue to monitor.
[2019-06-02 16:00] VITALS: BP 110/73
--- NOTE | 2019-06-02 17:20 | Internal Med Progress Note ---
Subjective Date of Service: Jun 02, 2019 Physician Name Jose Benjamin Attending Physician Goldy Amador MD Current Medications Medications (Trade) Dose Ordered Sig/Almaz Route PRN Reason Start Time Stop Time Status Last Admin Dose Admin Acetaminophen (Tylenol) 650 mg Q6H PRN ORAL Mild Pain (Pain Scale 1-3) 06/01/19 14:15 07/01/19 14:14 Albuterol/ Ipratropium (Albuterol/ Ipratropium) 3 ml Q4H PRN HHN Shortness of Breath 05/29/19 08:15 06/03/19 08:14 Betamethasone/ Clotrimazole (Lotrisone) 1 applic TWICE A DAY TOPIC 05/26/19 18:00 06/25/19 17:59 06/02/19 08:40 Chlorhexidine Gluconate (Shannon-Hex 2%) 1 applic DAILY@1999 TOPIC 05/26/19 20:00 06/17/19 19:59 06/01/19 21:02 Dextrose (Dextrose 50%) 25 ml Q30M PRN IV Hypoglycemia 05/26/19 06:45 06/16/19 21:44 Dextrose (Dextrose 50%) 50 ml Q30M PRN IV Hypoglycemia 05/26/19 06:45 06/16/19 21:44 Fluconazole/ Sodium Chloride 100 ml @ 100 mls/hr Q24H IV 06/02/19 21:00 06/09/19 20:59 Insulin Aspart (NovoLOG) AC+HS SUBQ 05/29/19 21:00 06/24/19 11:59 06/02/19 12:52 Lactulose (Cephulac) 15 gm THREE TIMES A DAY ORAL 05/31/19 09:00 06/17/19 10:29 06/02/19 08:40 Lidocaine (Xylocaine 5% cream) 1 applic DAILYPRN PRN TOPIC skin breakdown 05/31/19 11:15 06/30/19 11:14 Morphine Sulfate (Morphine Sulfate) 2 mg Q4H PRN IVP Severe Pain (Pain Scale 7-10) 05/27/19 12:30 06/03/19 12:29 06/02/19 04:16 Nystatin (Nystatin Cr) 1 applic DAILYPRN PRN TOPIC skin breakdown 05/31/19 11:15 06/30/19 11:14 Ondansetron HCl (Zofran) 4 mg Q6H PRN IVP Nausea & Vomiting 05/26/19 06:45 06/16/19 06:44 Pantoprazole (Protonix) 40 mg BIAC ORAL 06/01/19 16:30 07/01/19 16:29 06/02/19 05:52 Rifaximin (Xifaxan) 550 mg EVERY 12 HOURS ORAL 06/01/19 21:00 06/07/19 23:59 06/02/19 08:40 Triamcinolone Acetonide (Kenalog 0.5% Cr) 1 applic DAILYPRN PRN TOPIC skin breakdown 05/31/19 11:15 06/30/19 11:14 Zinc Oxide (Zinc Oxide) 1 applic DAILYPRN PRN TOPIC skin breakdown 05/31/19 11:15 06/30/19 11:14 06/01/19 21:08 Allergies: Coded Allergies: No Known Allergies (Unverified , 01/31/19) ROS Limited/Unobtainable: No Constitutional: Reports: no symptoms HEENT: Reports: no symptoms Cardiovascular: Reports: no symptoms Respiratory: Reports: no symptoms Gastrointestinal/Abdominal: Reports: no symptoms Genitourinary: Reports: no symptoms Neurologic/Psychiatric: Reports: no symptoms Subjective 58 YO F admitted with respiratory failure and presumed septic shock. Now UTI. Cover for Int Med-Dr Amador. Extubated 05/25/19. S/P paracentesis 05/25/19 Objective Last Vital Signs Date Time Temp Pulse Resp B/P (MAP) Pulse Ox O2 Delivery O2 Flow Rate FiO2 06/02/19 12:00 98.3 87 19 106/71 (83) 96 06/02/19 09:00 Room Air 06/01/19 23:20 2.0 28 Laboratory Tests Test 06/02/19 09:20 White Blood Count 11.3 K/UL (4.8-10.8) H Red Blood Count 2.46 M/UL (4.20-5.40) L Hemoglobin 7.6 G/DL (12.0-16.0) L Hematocrit 25.0 % (37.0-47.0) L Mean Corpuscular Volume 102 FL (80-99) H Mean Corpuscular Hemoglobin 31.0 PG (27.0-31.0) Mean Corpuscular Hemoglobin Concent 30.5 G/DL (32.0-36.0) L Red Cell Distribution Width 27.2 % (11.6-14.8) H Platelet Count 111 K/UL (150-450) L Mean Platelet Volume 6.8 FL (6.5-10.1) Neutrophils (%) (Auto) % (45.0-75.0) Lymphocytes (%) (Auto) % (20.0-45.0) Monocytes (%) (Auto) % (1.0-10.0) Eosinophils (%) (Auto) % (0.0-3.0) Basophils (%) (Auto) % (0.0-2.0) Differential Total Cells Counted 100 Neutrophils % (Manual) 79 % (45-75) H Lymphocytes % (Manual) 17 % (20-45) L Monocytes % (Manual) 3 % (1-10) Eosinophils % (Manual) 1 % (0-3) Basophils % (Manual) 0 % (0-2) Band Neutrophils 0 % (0-8) Nucleated Red Blood Cells 2 /100 WBC Platelet Estimate Decreased L Platelet Morphology Normal Anisocytosis 2+ Sodium Level 134 MMOL/L (136-145) L Potassium Level 3.9 MMOL/L (3.5-5.1) Chloride Level 105 MMOL/L (98-107) Carbon Dioxide Level 16 MMOL/L (21-32) L Anion Gap 13 mmol/L (5-15) Blood Urea Nitrogen 74 mg/dL (7-18) H Creatinine 2.4 MG/DL (0.55-1.30) H Estimat Glomerular Filtration Rate 20.8 mL/min (>60) Glucose Level 157 MG/DL (74-106) H Calcium Level 8.2 MG/DL (8.5-10.1) L Intake and Output 06/01/19 06/02/19 19:00 07:00 Intake Total 910 ml Output Total 200 ml Balance 910 ml -200 ml IV Total 110 ml Other 800 ml Output Urine Total 200 ml # Voids 1 # Bowel Movements 2 1 Objective PHYSICAL EXAMINATION: GENERAL: The patient is a well-developed and well-nourished obese female, who is intubated and sedated. HEENT: Eyes, pupils are equal and responsive to light and accommodation. Extraocular movements are intact. NECK: Supple without lymphadenopathy. CHEST: nasal canula; Coarse upper breath sounds, otherwise without wheezes or rales. CARDIOVASCULAR: Regular rhythm, rate. S1, S2 normal without murmurs, rubs, or gallops. ABDOMEN: Soft, distended with decreased bowel sounds. No evidence of hepatosplenomegaly. Currently, no rebound or guarding noted. EXTREMITIES: Negative for clubbing, cyanosis, or edema. RECTAL/GENITAL: Not performed. NEUROLOGICAL: Unable to assess. Assessment/Plan Assessment/Plan ASSESSMENT: This is a 58-year-old female. 1. Respiratory failure. 2. Urinary tract infection=klebsiella pneumoniae 3. Probable sepsis. 4. Probable septic shock. 5. Alcoholic cirrhosis of the liver. 6. Hypertension. 7. Diabetes type 2. 8. Ascites. 9. Hypercholesterolemia. TREATMENT: 1. Respiratory failure. A Pulmonary consultation has been obtained with Dr. Shireen Khan. Sputum=lizzy and klebsiella. We will follow recommendations of Pulmonary. 2. Urinary tract infection. An Infectious Disease consultation has been obtained with Dr. Hu. ABX= fluconazole Urine culture=klebsiella 3. Probable sepsis-increased WBC. See ID note 4. Septic shock. 5. Alcoholic cirrhosis of liver. A Gastroenterology consultation has been obtained with Dr. Jon Torres. S/P paracentesis 05/19/19 6. Hypertension. The patient is currently hypotensive. Hold all antihypertensive medications. 7. Diabetes type 2. A NovoLog sliding scale has been instituted. 8. Ascites, as above. A Gastroenterology consultation has been obtained with Dr. Jon Torres. S/P paracentesis 05/19/19 and 05/25/19 9. Hypercholesterolemia. Jose Benjamin MD Jun 02, 2019 17:20
--- NOTE | 2019-06-02 17:45 | NUR ---
NURSE NOTES: Dr ODONNELL visited pt and placed D/C order. is aware about pt's body color yellowish, edematous and ascites and no new order to RN. all discharge assessments and instructions done. pt is stable, V/S stable. Dr ODONNELL ordered to D/C PICC AND RESTRAINS, noted and carried out. the dressing of the site of D/C PICC is intact with out any bleeding. 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 is notified about HB 7.6 and other lab results and V/S, no new order to RN. wound pictures taken and down loaded. Report given to RN RADHA. Pt left hospital with accompany of ambulance personnel.
--- NOTE | 2019-06-02 19:37 | Surgery Progress Note ---
Surgery Progress Note Subjective Procedure Performed sepsis Additional Comments late entry as patient was seen this AM. ill appearing jaundice labs noted plans for d/c today prognosis poor Objective Last 24 Hour Vital Signs Date Time Temp Pulse Resp B/P (MAP) Pulse Ox O2 Delivery O2 Flow Rate FiO2 06/02/19 16:00 98.1 90 20 110/73 (85) 97 06/02/19 12:00 98.3 87 19 106/71 (83) 96 06/02/19 09:00 Room Air 06/02/19 08:00 97.2 80 19 110/66 (81) 96 06/02/19 04:00 97.8 83 20 108/62 (77) 94 06/02/19 00:00 97.7 83 18 126/60 (82) 96 06/01/19 23:20 84 24 98 Nasal Cannula 2.0 28 06/01/19 21:00 Room Air 06/01/19 20:00 97.5 79 18 101/62 (75) 95 I&O Intake and Output 06/01/19 06/02/19 19:00 07:00 Intake Total 910 ml Output Total 200 ml Balance 910 ml -200 ml IV Total 110 ml Other 800 ml Output Urine Total 200 ml # Voids 1 # Bowel Movements 2 1 Dressing: saturated Cardiovascular: RSR Respiratory: decreased breath sounds Abdomen: soft, non-tender, present bowel sounds Extremities: no cyanosis Laboratory Tests Test 06/02/19 09:20 White Blood Count 11.3 K/UL (4.8-10.8) H Red Blood Count 2.46 M/UL (4.20-5.40) L Hemoglobin 7.6 G/DL (12.0-16.0) L Hematocrit 25.0 % (37.0-47.0) L Mean Corpuscular Volume 102 FL (80-99) H Mean Corpuscular Hemoglobin 31.0 PG (27.0-31.0) Mean Corpuscular Hemoglobin Concent 30.5 G/DL (32.0-36.0) L Red Cell Distribution Width 27.2 % (11.6-14.8) H Platelet Count 111 K/UL (150-450) L Mean Platelet Volume 6.8 FL (6.5-10.1) Neutrophils (%) (Auto) % (45.0-75.0) Lymphocytes (%) (Auto) % (20.0-45.0) Monocytes (%) (Auto) % (1.0-10.0) Eosinophils (%) (Auto) % (0.0-3.0) Basophils (%) (Auto) % (0.0-2.0) Differential Total Cells Counted 100 Neutrophils % (Manual) 79 % (45-75) H Lymphocytes % (Manual) 17 % (20-45) L Monocytes % (Manual) 3 % (1-10) Eosinophils % (Manual) 1 % (0-3) Basophils % (Manual) 0 % (0-2) Band Neutrophils 0 % (0-8) Nucleated Red Blood Cells 2 /100 WBC Platelet Estimate Decreased L Platelet Morphology Normal Anisocytosis 2+ Sodium Level 134 MMOL/L (136-145) L Potassium Level 3.9 MMOL/L (3.5-5.1) Chloride Level 105 MMOL/L (98-107) Carbon Dioxide Level 16 MMOL/L (21-32) L Anion Gap 13 mmol/L (5-15) Blood Urea Nitrogen 74 mg/dL (7-18) H Creatinine 2.4 MG/DL (0.55-1.30) H Estimat Glomerular Filtration Rate 20.8 mL/min (>60) Glucose Level 157 MG/DL (74-106) H Calcium Level 8.2 MG/DL (8.5-10.1) L Plan Problems: (1) Sacral decubitus ulcer Assessment & Plan: Pt presented on admission with icteric sclerae and skin. Moisture intertrigo Madhu/left abd folds.(1.5cm long). Moisture intertrigo R groin(8.5cm) slit noted with small amt bleeding. Mons pubis,labia majora and medial aspects of both upper thigh erythematous . Partial thickness wound noted to L thoracic. Base of wound is moist and viable. Edges flat and adherent to base of wound.No exudate noted. (L) 0.6cm x (W)0.8cm. Non-blanchable erythema sacrum,R and L buttocks with scattered shearing .Full thickness pressure injury noted to sacrococcygeal area. Base of wound is steve with small amt slough noted in center.(L) 0.7cm x (W)0.3cm. Area around wound is erythematous non-blanchable with shearing . Full thickness pressure injury R buttocks . Base of wound is moist, with Slough in center.Surrounding area erythematous and denuded. Evolving serous blister L heel.Base of wound is fluctuant with delineated,red margins.(L)3.5cm x (W)5.5cm. Periwound without erythema or fluctuance. R heel firm and blanchable. Tx.Plan: Apply Triad Paste to Sacrum and R buttocks. Cover wounds with Optifoam drsg. Change every 3 days and PRN. Apply Triad Paste to abd folds, R groin,Mons pubis, medial aspects of both upper thighs with each perineal care. Apply Optifoam drsg L thoracic wound. Cover with Optifoam drsg. Change every 3 days and prn. Apply Cavilon Skin Barrier to both heels. Cover each heel with Optifoam drsg. Change every 7 days and prn. APM/CHRISSY Mattress. Reposition at least every 2hours or as tolerated. Off-load heels with pillow (2) Liver cirrhosis Assessment & Plan: DAILY ESTIMATED NEEDS: Needs based on Cirrhosis, Critical care, sepsis/ 58kg adj 22-30 kcals/kg 5669-9455 total kcals 1.2-2 g protein/kg 70-116 g total protein 20-25 mL/kg 0265-3218 total fluid mLs NUTRITION DIAGNOSIS: * Swallowing difficulty R/T respiratory status as evidenced by pt orally intubated, NPO at this time * Altered nutrition related lab values R/T cirrhosis, sepsis, clinical condition as evidenced by elev T bili (5.5), elev NH3 (152), elev LA (6.7), elev creat (2.4). CURRENT TF:NPO PO DIET RECOMMENDATIONS: SAP DATA ANALYST eval post extubation -> LOW NA ENTERAL NUTRITION RECOMMENDATIONS: Glucerna 1.2 @ 55ml/hr x 24 hrs to provide 1320ml, 1584kcal, 79g prot, 1063ml free water * Rec Glucerna 1.2 to maintain good BG control: h/o DM * As medically appropriate, initiate Glucerna 1.2 @ 25ml/hr x 6 hrs * Advance 10ml q 4-6 hrs as tolerated to goal rate. * HOB over 30 degrees/ water flush per MD. ADDITIONAL RECOMMENDATIONS: * Calibrated bedscale wt for accurate CBW * W/ TF, monitor need for NISS: h/o DM * F/up w/ wound eval: add Miquel 1pkt BID + VIt C 250mg QD * Monitor lytes, replete as needed . (3) Acute on chronic alcoholic liver disease (4) Sepsis Assessment & Plan: Restore insufficiency, leukocytosis, anemia, lactic acidosis , liver insufficiency, sepsis US noted and okay paracentesis PICC Continue IV antibiotics cont trend labs diet as tolerated We will monitor and follow with recommendations Efrain Whitaker Jun 02, 2019 19:37
--- NOTE | 2019-06-03 08:54 | Discharge Summary ---
Discharge Summary Discharge Summary _ DATE OF ADMISSION: 05/17/2019 DATE OF DISCHARGE:06/02/2019 DISCHARGED BY: Dr. Amador REASON FOR ADMISSION: 58 years old female with past medical history of hypertension, alcoholic liver disease, history of recent gram-negative sepsis, hepatic encephalopathy, presented with acute altered mental status. Patient was sent from the nursing facility for evaluation due to change in mental status . Patient was acutely altered and was not protecting her airway . Patient required emergency oral intubation. ABG on ventilator settings was stable. Laboratory work-up revealed leukocytosis WBC 17.6, hemoglobin 8.6, hematocrit 27.4, platelet count 106. INR 1.9. Lactic acid 7.5. Troponin negative. Pro BNP 889. Sodium 135, potassium 5.2. Phosphorus 5. Magnesium 1.6. BUN 29, creatinine 2.8. Total bilirubin 6.1, direct bilirubin 4.2. Ammonia 152. AST 43, ALT 17. Alkaline phosphatase 201. Lipase 48. Albumin 1.3. Central line was placed in the left femoral vein. Septic work-up initiated , and patient started on empiric antibiotic Lactulose given. Patient admitted to ICU for further management. CONSULTANTS: pulmonary Dr. Khan ID specialist Dr. Hu GI specialist Dr. Torres plan coordinator Dr. Byers [facility] Dr. Whitaker [facility] COURSE: Patient admitted to ICU. Ventilator support and pulmonary toilet provided. Patient was followed-up with chest x-ray and ABG. Hemodynamic status was closely monitored. Patient exhibited hypotension, which responded to fluid boluses. Vitamin K x1 given Patient started on empiric antibiotics per ID specialist recommendation. Patient started on lactulose with trending of ammonia. Renal ultrasound revealed no hydronephrosis or sonographically appreciable renal stone. Renal echogenicity found to be within normal limits. Draper catheter decompressed the bladder, precluding its evaluation. Incidental findings of cirrhotic contour of the liver and mild to moderate abdominopelvic ascites. Venous duplex bilateral lower extremity revealed no evidence of acute DVT. Patient started on weaning protocol. Patient overall did not show any significant improvement . Patient condition was discussed with patient's son , who agreed to extubation and change to CODE STATUS to DNR. Patient was extubated 05/25. Supplemental oxygen provided as needed to keep pulse oximetry above 92%. Pulmonary toilet provided as needed. Renal parameters and electrolytes were closely monitored, and electrolytes corrected as needed. PICC line was placed for IV antibiotic. Patient undergone ultrasound-guided paracentesis on 05/19 yielding 4.8 L of ascitic fluid and another one on yielding 4.1 L of ascitic fluid. Ascitic fluid culture was negative. Fluid analysis revealed no evidence of infection. Patient was ruled out for spontaneous bacterial peritonitis. Patient with recent history of gram-negative bacteremia and sepsis. WBC initially trended down, then trended up again and upon discharge 11.3. Blood cultures were negative. Echo with the conduct more than 100 K and Klebsiella 10-20 K. Repeated blood cultures were negative . Sputum culture revealed Arlin . Repeated urine culture revealed Arlin. Antibiotics provided as per ID specialist recommendations. Upon discharge Diflucan IV was changed to oral to complete the course at the facility . Patient completed course of Zosyn for probable VAP. Drawing Kiln Operator followed. Patient with acute tubular necrosis . On previous admission May 09 , patient had normal renal parameters. Patient was slowly hydrated. No improvement in renal parameters. Ammonia trended down with Lactulose and Xifaxan. Dose of lactulose adjusted as per GI specialist. Hemoglobin and hematocrit were closely monitored with goal to keep hemoglobin above 7. Patient undergone transfusion of 1 unit of packed red blood cells for hemoglobin 6.8 while in the hospital. Stool for occult blood was negative. GI prophylaxis provided Platelet count and INR were closely monitored, thrombocytopenia and coagulopathy related to liver cirrhosis. Vitamin K provided initially. . Wound care provided as per surgeon recommendation for sacral decubitus ulcer , present on admission. Continue wound care at the facility. Blood sugar was managed with sliding scale of insulin. Initially NG tube was inserted for nutrition and medication. Strict aspiration precaution maintained. Supportive care provided. Subsequently, when more alert, patient started on diet for quality of life with textured as recommended by speech therapist. Strict aspiration precaution maintained. Patient was visibly icteric and jaundiced. Symptomatic treatment provided. Renal parameters did not show any improvement , creatinine remains 2.4. Total bilirubin 16.6 , direct bilirubin 12.5. Patient was not improving , and overall prognosis was poor. Family agreed to hospice services upon discharge. Patient was discharged to [facility] with hospice services. FINAL DIAGNOSES: Sepsis with septic shock Urinary tract infection with Arlin and Klebsiella Probably ventilator associated pneumonia Acute hypoxemic respiratory failure requiring intubation status post extubation 925 Acute on chronic alcoholic liver disease Acute tubular necrosis Acute metabolic encephalopathy Hepatic encephalopathy Liver cirrhosis Anasarca Portal hypertension Recurrent ascites, status post paracentesis x2 Anemia Diabetes mellitus ETOH abuse Thrombocytopenia Coagulopathy Electrolyte imbalance Sacral decubitus ulcer , present on admission History of hypertension End-of-life care DISCHARGE MEDICATIONS: See Medication Reconciliation list. DISCHARGE INSTRUCTIONS: Patient was discharged to the [facility] facility. Follow up with medical doctor at the facility. Corinna Guzman NP Jun 03, 2019 08:54
--- NOTE | 2019-06-09 15:25 | Diagnostic Imaging Report ---
Indications: Dysphagia Technique: Patient ingested multiple substances under the supervision of speech pathology. Video fluoroscopic recording performed. Total fluoroscopy time 133.5 seconds. Total dose area product 0.96318 mGycm2 Total number of images-9 Comparison: none Findings: Occasional supraglottic laryngeal penetration of thin liquid barium is demonstrated. No odell aspiration. With ingestion of nectar thick liquid barium, there is some early pooling in the vallecula and piriform sinuses. No odell aspiration or penetration demonstrated. Ingestion of barium puree is uneventful Impression: Positive for penetration of thin liquid barium. Negative for aspiration Please refer to speech pathology report for more detailed analysis
== END 2019-06-02 17:45 | DRG 870 ==
LOC: EDBD 19:24 → EMR 19:36 → 2E 19:50 → EDBEDREQ 21:05 → EDBEDREQSVC 22:12 → EDBEDREQ 22:32 → ICU 22:34 → 4E 05-26 06:36
PROC: 0BH17EZ Insertion of Endotracheal Airway into Trachea, Via Natural or Artificial Opening (ICD-10-PCS; principal; 2019-05-17)
PROC: 5A1955Z Respiratory Ventilation, Greater than 96 Consecutive Hours (ICD-10-PCS; principal; 2019-05-17)
PROC: 06HN33Z Insertion of Infusion Device into Left Femoral Vein, Percutaneous Approach (ICD-10-PCS; principal; 2019-05-17)
PROC: 06HM33Z Insertion of Infusion Device into Right Femoral Vein, Percutaneous Approach (ICD-10-PCS; principal; 2019-05-17)
PROC: 0W9G3ZZ Drainage of Peritoneal Cavity, Percutaneous Approach (ICD-10-PCS; 2019-05-19)
PROC: 06PYX3Z Removal of Infusion Device from Lower Vein, External Approach (ICD-10-PCS; 2019-05-20)
PROC: 0W9G3ZZ Drainage of Peritoneal Cavity, Percutaneous Approach (ICD-10-PCS; 2019-05-25)
DX: A41.9 Sepsis, unspecified organism (principal); R65.21 Severe sepsis with septic shock; G93.41 Metabolic encephalopathy; J96.01 Acute respiratory failure with hypoxia; N17.0 Acute kidney failure with tubular necrosis; J95.851 Ventilator associated pneumonia; B37.49 Other urogenital candidiasis; K76.6 Portal hypertension; R68.0 Hypothermia, not associated with low environmental temperature; K70.31 Alcoholic cirrhosis of liver with ascites; F10.20 Alcohol dependence, uncomplicated; I10 Essential (primary) hypertension; E11.9 Type 2 diabetes mellitus without complications; E78.00 Pure hypercholesterolemia, unspecified; K72.90 Hepatic failure, unspecified without coma; D64.9 Anemia, unspecified; L89.150 Pressure ulcer of sacral region, unstageable; D69.6 Thrombocytopenia, unspecified; Z51.5 Encounter for palliative care; Z66 Do not resuscitate
CPT/HCPCS: 31500; 36415; 36569; 36600; 71045; 74018; 74230; 76700; 76770; 76937; 76942; 80048; 80053; 80061; 80202; 81001; 81003; 82043; 82105; 82140; 82248; 82270; 82533; 82550; 82553; 82607; 82728; 82746; 82803; 82962; 82977; 83036; 83540; 83550; 83605; 83690; 83735; 83880; 83935; 84100; 84300; 84439; 84443; 84478; 84484; 84550; 85007; 85025; 85044; 85060; 85610; 85730; 86140; 86850; 86900; 86901; 86920; 87040; 87070; 87081; 87086; 87181; 87205; 89050; 89051; 92610; 93005; 93925; 93970; 94002; 94003; 94664; 96361; 96365; 96372; 96375; 99291; J1815; J2405; J3430

== ENCOUNTER 2019-06-09 21:30 | Inpatient (IN) | payer MEDICARE, OTHER ==
[~2019-06-09] VITALS: Ht 154.9 cm; Wt 54.4 kg
[~2019-06-09 21:30] MED LIST changes: +ACETAMINOPHEN-1 EAC1 ORAL; +ACETAMINOPHEN325 M1 ORAL; +ASPIR 8181 MG ORAL; +BANOPHEN25 MG PO; +CARAFATE1 G1 ORAL; +MULTIVITAMINS1 EAC8 ORAL; +OYSTER SHELL 51 EAC2 PO; +PANTOPRAZOLE SO40 MG ORAL; +PRO-STAT LIQUID30 ML ORAL; +PROPRANOLOL HCL10 MG ORAL; +PROTONIX40 M2 PO; +VITAMIN B-1100 MG ORAL; +VITAMIN C500 M1 ORAL; +ZINC SULFATE220 M1 ORAL; +ZOFRAN4 M3 ORAL
--- NOTE | 2019-06-09 21:37 | Emergency Room Report ---
History of Present Illness General Chief Complaint: ams Source: EMS Present Illness HPI Patient presents from nursing facility with reports of agitation altered mental status Upon presentation patient is significantly jaundice appears short of breath Patient has history of metastatic disease Also significant alcohol cirrhosis There was no reports of vomiting or diarrhea patient has not been eating well The history of present illness is otherwise very limited as the patient herself is nonverbal and appears in acute distress upon arrival Tachypneic And appears short of breath as well Allergies: Coded Allergies: No Known Allergies (Unverified , 01/31/19) Patient History Limited by: medical condition Past Medical History: see triage record Now: No Reviewed Nursing Documentation: PMH: Agreed; PSxH: Agreed Nursing Documentation-PMH Hx Cardiac Problems: Yes Hx Hypertension: Yes Hx Diabetes: Yes Hx Cancer: No Hx Gastrointestinal Problems: Yes Hx Neurological Problems: Yes - Hepatic encephalopathy Review of Systems All Other Systems: limited - Other than the ones mentioned in the history of present illness all others are reviewed however they do stay limited due to the patient's mental status Physical Exam Vital Signs Date Time Temp Pulse Resp B/P (MAP) Pulse Ox O2 Delivery O2 Flow Rate FiO2 06/09/19 21:27 66 20 95/49 (64) 97 Room Air 2.0 Sp02 EP Interpretation: reviewed, normal General Appearance: moderate distress - Tachypneic, appears in distress Head: normocephalic, atraumatic Eyes: bilateral eye scleral icterus ENT: dry mucus membranes Neck: supple Respiratory: crackles - Tachypneic, crackles bilaterally Cardiovascular #1: regular rate, rhythm Gastrointestinal: soft, no rebound Musculoskeletal: other - Patient does not follow commands, appears encephalopathic Neurologic: other - Patient has decreased GCS some response to physical stimuli however, significantly encephalopathic Skin: jaundice Lymphatic: no adenopathy Procedures Critical Care Time Critical Care Time 60 minutes for multiple re-evaluations critical presentation findings concerning for acute left threatening pathology not including any procedural time Medical Decision Making Diagnostic Impression: Primary Impression: Liver cirrhosis Additional Impressions: End of life care Anemia Ascites Acute on chronic alcoholic liver disease Acute metabolic encephalopathy ER Course Patient presents and critical fashion has multiple comorbidities and Has significant jaundice patient has had previous Comfort care and DNR documented and is here with that with the long term as well Patient's ammonia level is significantly elevated all attempts are made With regards to comfort care with medical intervention to appropriately address the patient's acute issues further hydration provided patient is improving However remains in critical condition and will be admitted for further care Labs Test 06/09/19 21:30 06/09/19 21:40 06/09/19 23:45 White Blood Count 6.7 K/UL (4.8-10.8) Red Blood Count 2.77 M/UL (4.20-5.40) Hemoglobin 8.6 G/DL (12.0-16.0) Hematocrit 28.0 % (37.0-47.0) Mean Corpuscular Volume 101 FL (80-99) Mean Corpuscular Hemoglobin 31.1 PG (27.0-31.0) Mean Corpuscular Hemoglobin Concent 30.8 G/DL (32.0-36.0) Red Cell Distribution Width 23.2 % (11.6-14.8) Platelet Count 102 K/UL (150-450) Mean Platelet Volume 6.5 FL (6.5-10.1) Neutrophils (%) (Auto) % (45.0-75.0) Lymphocytes (%) (Auto) % (20.0-45.0) Monocytes (%) (Auto) % (1.0-10.0) Eosinophils (%) (Auto) % (0.0-3.0) Basophils (%) (Auto) % (0.0-2.0) Differential Total Cells Counted 100 Neutrophils % (Manual) 84 % (45-75) Lymphocytes % (Manual) 9 % (20-45) Monocytes % (Manual) 5 % (1-10) Eosinophils % (Manual) 1 % (0-3) Basophils % (Manual) 1 % (0-2) Band Neutrophils 0 % (0-8) Platelet Estimate Decreased Platelet Morphology Normal Polychromasia 1+ Hypochromasia 1+ Anisocytosis 1+ Macrocytosis 1+ Sodium Level 135 MMOL/L (136-145) Potassium Level 4.8 MMOL/L (3.5-5.1) Chloride Level 106 MMOL/L (98-107) Carbon Dioxide Level 10 MMOL/L (21-32) Anion Gap 20 mmol/L (5-15) Blood Urea Nitrogen 99 mg/dL (7-18) Creatinine 4.3 MG/DL (0.55-1.30) Estimat Glomerular Filtration Rate 10.6 mL/min (>60) Glucose Level 85 MG/DL (74-106) Lactic Acid Level 6.00 mmol/L (0.4-2.0) Calcium Level 7.1 MG/DL (8.5-10.1) Total Bilirubin 21.3 MG/DL (0.2-1.0) Direct Bilirubin 17.8 MG/DL (0.0-0.3) Aspartate Amino Transf (AST/SGOT) 96 U/L (15-37) Alanine Aminotransferase (ALT/SGPT) 37 U/L (12-78) Alkaline Phosphatase 248 U/L (46-116) Ammonia 300 umol/L (11-32) Total Creatine Kinase 67 U/L (26-308) Creatine Kinase MB 5.1 NG/ML (0.0-3.6) Creatine Kinase MB Relative Index 7.6 Troponin I 0.000 ng/mL (0.000-0.056) Pro-B-Type Natriuretic Peptide 2054 pg/mL (0-125) Total Protein 5.2 G/DL (6.4-8.2) Albumin 0.9 G/DL (3.4-5.0) Globulin 4.3 g/dL Albumin/Globulin Ratio 0.2 (1.0-2.7) Lipase 556 U/L (73-393) Arterial Blood pH 7.261 (7.350-7.450) Arterial Blood Partial Pressure CO2 20.4 mmHg (35.0-45.0) Arterial Blood Partial Pressure O2 177.5 mmHg (75.0-100.0) Arterial Blood HCO3 9.0 mmol/L (22.0-26.0) Arterial Blood Oxygen Saturation 99.5 % (95-100) Arterial Blood Base Excess -16.4 (-2-2) Saravanan Test Positive Urine Color Zohreh Urine Appearance Cloudy Urine pH 5 (4.5-8.0) Urine Specific [place] 1.015 (1.005-1.035) Urine Protein 1+ (NEGATIVE) Urine Glucose (UA) Negative (NEGATIVE) Urine Ketones 1+ (NEGATIVE) Urine Blood 2+ (NEGATIVE) Urine Nitrite Positive (NEGATIVE) Urine Bilirubin 3+ (NEGATIVE) Urine Ictotest Positive (NEGATIVE) Urine Urobilinogen 4 MG/DL (0.0-1.0) Urine Leukocyte Esterase 2+ (NEGATIVE) Urine RBC 2-4 /HPF (0 - 2) Urine WBC 2-4 /HPF (0 - 2) Urine Squamous Epithelial Cells Many /LPF (NONE/OCC) Urine Calcium Oxalate Crystals Few /LPF (NONE) Urine Amorphous Sediment Many /LPF (NONE) Urine Bacteria Many /HPF (NONE) Urine Coarse Granular Casts 2-4 /LPF (NONE) Urine Yeast Many /HPF (NONE) Rhythm Strip Diag. Results EP Interpretation: yes Rate: 88 Rhythm: NSR, no PVC's, no ectopy Chest X-Ray Diagnostic Results Chest X-Ray Diagnostic Results : Chest X-Ray Ordered: Yes # of Views/Limited/Complete: 1 View Indication: Chest Pain EP Interpretation: Yes Interpretation: no effusion, no pneumothorax, other - Mediastinum appears wide with, increased markings cardiomegaly raised right hemidiaphragm Impression: Other - Wide mediastinum, increased markings elevated right hemidiaphragm, Electronically Signed by: Yashira Paulino DO Last Vital Signs Date Time Temp Pulse Resp B/P (MAP) Pulse Ox O2 Delivery O2 Flow Rate FiO2 06/09/19 21:27 66 20 95/49 (64) 97 Room Air 2.0 Status: improved Disposition: ADMITTED INPATIENT Condition: Critical Yashira Paulino DO Jun 09, 2019 21:37
[2019-06-09] MEDS ORDERED: Lactulose 200 GM in Water Sterile For Irrig 1000ml 700 ML RECTAL SCH (21:45)
[2019-06-09 22:00] VITALS: BP 95/49
[2019-06-09 22:07] LABS: HEMOGLOBIN 8.6 G/DL (12.0-16.0); MEAN CORPUSCULAR VOLUME 101 FL (80-99); PLATELET COUNT 102 K/UL (150-450); RED BLOOD COUNT 2.77 M/UL (4.20-5.40); RED CELL DISTRIBUTION WIDTH 23.2 % (11.6-14.8); WHITE BLOOD COUNT 6.7 K/UL (4.8-10.8)
[2019-06-09 22:08] LABS: AMMONIA 300 umol/L (11-32)
[2019-06-09 22:23] LABS: ALANINE AMINOTRANSFERASE 37 U/L (12-78); ALBUMIN 0.9 G/DL (3.4-5.0); ALBUMIN/GLOBULIN RATIO 0.2 (1.0-2.7); ALKALINE PHOSPHATASE 248 U/L (46-116); ANION GAP 20 mmol/L (5-15); ASPARTATE AMINO TRANSFERASE 96 U/L (15-37); BILIRUBIN,TOTAL 21.3 MG/DL (0.2-1.0); BLOOD UREA NITROGEN 99 mg/dL (7-18); CALCIUM 7.1 MG/DL (8.5-10.1); CARBON DIOXIDE 10 MMOL/L (21-32); CHLORIDE 106 MMOL/L (98-107); CKMB 5.1 NG/ML (0.0-3.6); CREATINE KINASE 67 U/L (26-308); CREATININE 4.3 MG/DL (0.55-1.30); POTASSIUM 4.8 MMOL/L (3.5-5.1); SODIUM 135 MMOL/L (136-145)
[2019-06-09 22:26] LABS: BILIRUBIN,DIRECT 17.8 MG/DL (0.0-0.3)
[2019-06-09 23:00] VITALS: BP 80/46
[2019-06-09 23:59] LABS: APPEARANCE,URINE CLOUDY; BILIRUBIN, URINE 3+ (NEGATIVE); GLUCOSE, URINE (UA) NEGATIVE (NEGATIVE); KETONES,URINE 1+ (NEGATIVE); LEUKOCYTE ESTERASE ,URINE 2+ (NEGATIVE); NITRITE,URINE POSITIVE (NEGATIVE); PH,URINE 5 (4.5-8.0); PROTEIN,URINE 1+ (NEGATIVE); UROBILINOGEN,URINE 4 MG/DL (0.0-1.0)
[2019-06-10] MEDS ORDERED: ALBUTEROL2.5 MG/3 M INH (00:13)
[2019-06-10 00:14] LABS: COLOR,URINE AMBER
[2019-06-10] MEDS ORDERED: RIFADIN150 MG ORAL (00:14)
--- NOTE | 2019-06-10 01:15 | NUR ---
ED Nurse Note: Patient was BIBA from [facility] due to hypotention, hypoglycemia, ALOC. Patient presented with flat affect, skin is very jaundice, hypothermic, severe generalized edema, with respiratory distress. ER Dr. by bed side, will continue tomonitor.
[2019-06-10 02:00] VITALS: BP 76/20
--- NOTE | 2019-06-10 03:00 | NUR ---
ED Nurse Note: Patient was transfered to SDU in critical condition. Patient has severe jaundice, AAO x0, VS unstable, patient has labored breathing, patient is breathing by using intercostal auxiliary muscles. Patient's BP going up and down, BP while transfering pt was 102/62, O2 sat 91% on 5 L via NC. Patient is DNR and DNI, therefore patient was provided [facility] hospital comphort care. Patient was transfered to the unit via gurney by ACLS protocol, with all belongings.
--- NOTE | 2019-06-10 03:17 | NUR ---
NURSE NOTES: Received patient from ED Nurse Alivia LARSEN. Patient is non-responsive to name, shaking, or pain. Receiving oxygen via Nasal cannula at 5L/min, patient saturating at 100%. Heart monitor was placed on. IV site is Left wrist 20g, patent and intact. Draper catheter is patent and draining. Patient's skin is jaundice, eyes are jaundice. Bed is locked, placed in lowest position, side rails up x3, call light within reach. Will continue to monitor
--- NOTE | 2019-06-10 03:25 | NUR ---
NURSE NOTES: Made call to Dr. Amador's office for admitting orders. Patients vital signs: Temperature: 89.4, HR 54, RR 19, O2 100%, BP 120/61. Warming blanket placed on patient. Will continue to monitor.
--- NOTE | 2019-06-10 03:49 | NUR ---
NURSE NOTES: Second call to Dr. Amador's office made for admitting orders.
--- NOTE | 2019-06-10 03:57 | NUR ---
NURSE NOTES: Pictures taken of patient's pressure ulcers including: Sacral, Left hand, Left ankle, Left Inguinal (open wound), and right Inguinal. Multiple rashes on upper chest and neck, bruising found on right antecubital. Fluid leaking from patient's wounds in inguinal and sacral area. Will continue to monitor.
[2019-06-10] MEDS ORDERED: ACETAMINOPHEN325 M1 ORAL (04:48)
[2019-06-10] MEDS ORDERED: NOVOLOG100 UNIT/4 SQ (04:50)
[2019-06-10] MEDS ORDERED: XIFAXAN550 MG ORAL (04:53)
[2019-06-10] MEDS ORDERED: RIFAXIMIN500 GM MC (04:53)
[2019-06-10] MEDS ORDERED: D5 1/2NS 1,000 ML IV SCH (05:30)
[2019-06-10] MEDS ORDERED: Zosyn 3.375gm in NS 110ml IVPB SCH (06:00)
[2019-06-10] MEDS ORDERED: Piperacillin/Tazobactam 2.25 GM in D5W 55 ML IVPB SCH (06:00)
[2019-06-10 06:18] LABS: HEMATOCRIT 29.5 % (37.0-47.0); HEMOGLOBIN 8.6 G/DL (12.0-16.0); MEAN CORPUSCULAR VOLUME 104 FL (80-99); PLATELET COUNT 88 K/UL (150-450); RED BLOOD COUNT 2.85 M/UL (4.20-5.40); RED CELL DISTRIBUTION WIDTH 25.2 % (11.6-14.8); WHITE BLOOD COUNT 5.8 K/UL (4.8-10.8)
[2019-06-10 06:35] LABS: INR 2.9 (0.9-1.1)
--- NOTE | 2019-06-10 07:31 | NUR ---
HAND-OFF: Report given to Priyanka LARSEN. Patient in stable condition.
--- NOTE | 2019-06-10 07:33 | NUR ---
NURSE NOTES: Received report from CHAVA Crane. Observed patient in bed, asleep, opens eyes to painful stimuli, no verbal response. On O2 2L via NC, saturating 100% at this time. IV on right wrist intact and patent with IV fluids running at prescribed rate. Draper catheter intact and draining well to gravity. safety precautions in place, bed locked, alarmed, and in lowest position, side rails up x3, and call light left within reach. Will continue to monitor patient and continue with plan of care.
[2019-06-10 07:39] LABS: ALANINE AMINOTRANSFERASE 42 U/L (12-78); ALBUMIN 0.9 G/DL (3.4-5.0); ALBUMIN/GLOBULIN RATIO 0.2 (1.0-2.7); ALKALINE PHOSPHATASE 251 U/L (46-116); ANION GAP 20 mmol/L (5-15); ASPARTATE AMINO TRANSFERASE 126 U/L (15-37); BILIRUBIN,TOTAL 20.9 MG/DL (0.2-1.0); BLOOD UREA NITROGEN 100 mg/dL (7-18); CALCIUM 6.9 MG/DL (8.5-10.1); CHLORIDE 108 MMOL/L (98-107); CREATININE 4.3 MG/DL (0.55-1.30); PHOSPHORUS 9.3 MG/DL (2.5-4.9); SODIUM 137 MMOL/L (136-145)
[2019-06-10 07:40] LABS: CARBON DIOXIDE 9 MMOL/L (21-32)
[2019-06-10 07:47] LABS: BILIRUBIN,DIRECT 17.4 MG/DL (0.0-0.3)
[2019-06-10 08:00] VITALS: BP 80/35
--- NOTE | 2019-06-10 08:30 | NUR ---
NURSE NOTES: Rectal temperature taken, 92.0. Patient is currently on mercy hugger. Will continue to monitor.
[2019-06-10] MEDS: Lactulose 20gm/30ml UDC RECTAL SCH ×2 (08:46→12:49)
--- NOTE | 2019-06-10 09:14 | NUR ---
NURSE NOTES: Dr Amador contacted for lab result CO2 9 and insulin sliding scale for patient. New orders noted and carried out.
--- NOTE | 2019-06-10 09:56 | Consultation ---
Consult Note Consult Note seen at the request of Dr Amador Patient known to me- discharged a week ago- now in [facility] ! remains DNR and DNI obtunded Jaundiced acidotic agonal breathing severe ascitis hypotensive .ER : Patient presents from nursing facility with reports of agitation altered mental status Upon presentation patient is significantly jaundice appears short of breath Patient has history of metastatic disease Also significant alcohol cirrhosis There was no reports of vomiting or diarrhea patient has not been eating well The history of present illness is otherwise very limited as the patient herself is nonverbal and appears in acute distress upon arrival Tachypneic And appears short of breath as well Allergies: Coded Allergies: No Known Allergies (Unverified , 01/31/19) Assessment/Plan - ATN (acute tubular necrosis) -Acute on chronic encephalopathy: Liver and Renal failure - Acute respiratory failure - Acute on chronic alcoholic liver disease - Anemia - DNR DNI Sugg: IV fluids + Na Bicarb Comfort care appears pre terminal ? Transfer out of SDU ?? Jovany Byers MD Jun 10, 2019 09:56
--- NOTE | 2019-06-10 11:07 | Diagnostic Imaging Report ---
Indication: Dyspnea Comparison: 05/25/2019 A single view chest radiograph was obtained. Findings: Tubes and lines have been removed. The heart is enlarged. There is cephalization and prominence of pulmonary vascularity. Lung volumes are low. Bones are osteopenic. IMPRESSION: Mild CHF
[2019-06-10] MEDS ORDERED: NovoLOG Insulin Flexpen SUBQ SCH ×2 (11:30→12:00)
[2019-06-10 12:00] VITALS: BP 101/51
--- NOTE | 2019-06-10 13:06 | Consultation ---
History of Present Illness General Date patient seen: Jun 10, 2019 Chief Complaint: General Complaint Present Illness HPI 58-year-old female with history of end stage liver cirrhosis, ETOH abuse, recurrent hepatic encephalopathy, custodial resident, in the process discussion with pts son about making her hospice care, meanwhile her mental status worsened and transferred to ER. she is jaundiced and has agonal breathing. Allergies: Coded Allergies: No Known Allergies (Unverified , 01/31/19) Medication History Scheduled Amino Acids/Protein Hydrolys (Pro-Stat Liquid), 30 ML ORAL DAILY, (Reported) Amlodipine Besylate* (Amlodipine Besylate*), 5 MG ORAL DAILY, (Reported) Ascorbic Acid* (Vitamin C*), 500 MG ORAL DAILY, (Reported) Aspirin* (Aspir 81*), 81 MG ORAL DAILY, (Reported) Calcium Carbonate/Vitamin D3 (Oyster Shell 500-Vit D3 200 Pk), 1 EACH PO DAILY , (Reported) Furosemide* (Lasix*), 20 MG ORAL DAILY, (Reported) Hydroxyzine Hcl (Hydroxyzine Hcl), 10 MG PO DAILY, (Reported) Lactulose (Lactulose*), 30 ML ORAL TID, (Reported) Multivitamin With Minerals (Multivitamins With Minerals*), 1 TAB ORAL DAILY, ( Reported) Ondansetron* (Zofran*), 4 MG ORAL BID, (Reported) Pantoprazole Sodium (Protonix), 40 MG PO DAILY, (Reported) Propranolol Hcl* (Inderal*), 10 MG ORAL THREE TIMES A DAY, (Reported) Rifampin* (Rifadin*), 550 MG ORAL BID, (Reported) Rifaximin* (Xifaxan*), 550 MG ORAL DAILY, (Reported) Spironolactone (Aldactone), 50 MG ORAL DAILY Sucralfate* (Carafate*), 1 GM ORAL FOUR TIMES A DAY, (Reported) Thiamine Hcl* (Vitamin B-1*), 100 MG ORAL DAILY, (Reported) Zinc Sulfate (Zinc Sulfate*), 220 MG ORAL DAILY, (Reported) Scheduled PRN Acetaminophen With Codeine (T#3) (Tylenol #3 Tab*), 1 TAB ORAL Q6HR PRN for For Pain, (Reported) Acetaminophen* (Acetaminophen 325MG Tablet*), 650 MG ORAL Q4H PRN for Pain Scale (6-10), (Reported) Albuterol Sulfate* (Albuterol Sulfate Hhn*), 3 ML INH Q4H PRN for Shortness of Breath, (Reported) Diphenhydramine Hcl (Banophen), 25 MG PO EVERY 6 HOURS PRN for Itching, ( Reported) Miscellaneous Medications Insulin Aspart (Novolog), 100 UNIT SQ, (Reported) Patient History Healthcare decision maker Resuscitation status Do Not Resuscitate Advanced Directive on File Past Medical/Surgical History Past Medical/Surgical History: (1) Ascites (2) Anasarca (3) Acute metabolic encephalopathy (4) Liver cirrhosis (5) Thrombocytopenia (6) Coagulopathy (7) ATN (acute tubular necrosis) Review of Systems All Other Systems: negative except mentioned in HPI Physical Exam General Appearance: cachetic Lines, tubes and drains: peripheral HEENT: normocephalic, anicteric Neck: non-tender, supple Respiratory/Chest: chest wall non-tender, normal breath sounds Cardiovascular/Chest: normal peripheral pulses, normal rate Abdomen: normal bowel sounds, non tender Genitourinary/Rectal: normal genital exam Extremities: normal range of motion, non-tender Last 24 Hour Vital Signs Date Time Temp Pulse Resp B/P (MAP) Pulse Ox O2 Delivery O2 Flow Rate FiO2 06/10/19 12:00 2.0 06/10/19 12:00 Nasal Cannula 2.0 06/10/19 08:02 60 06/10/19 08:00 Nasal Cannula 2.0 06/10/19 08:00 2.0 06/10/19 04:00 2.0 06/10/19 04:00 Nasal Cannula 2.0 06/10/19 03:50 53 06/10/19 03:25 Nasal Cannula 2.0 06/10/19 03:00 97.4 52 20 102/67 91 Nasal Cannula 4.0 52 06/10/19 02:00 97.4 60 20 76/20 89 Nasal Cannula 4.0 60 06/09/19 23:00 97.4 56 20 80/46 92 Nasal Cannula 4.0 56 06/09/19 22:00 56 20 Nasal Cannula 2.0 06/09/19 22:00 97.4 56 20 95/49 97 Nasal Cannula 2.0 06/09/19 21:27 66 20 95/49 (64) 97 Room Air 2.0 Intake and Output 06/09/19 06/10/19 18:59 06:59 Output Total 450 ml Balance -450 ml Output Urine Total 450 ml # Bowel Movements 2 Laboratory Tests Test 06/09/19 21:30 06/09/19 21:40 06/09/19 23:45 06/10/19 05:50 White Blood Count 6.7 K/UL (4.8-10.8) 5.8 K/UL (4.8-10.8) Red Blood Count 2.77 M/UL (4.20-5.40) L 2.85 M/UL (4.20-5.40) L Hemoglobin 8.6 G/DL (12.0-16.0) L 8.6 G/DL (12.0-16.0) L Hematocrit 28.0 % (37.0-47.0) L 29.5 % (37.0-47.0) L Mean Corpuscular Volume 101 FL (80-99) H 104 FL (80-99) H Mean Corpuscular Hemoglobin 31.1 PG (27.0-31.0) H 30.1 PG (27.0-31.0) Mean Corpuscular Hemoglobin Concent 30.8 G/DL (32.0-36.0) L 29.1 G/DL (32.0-36.0) L Red Cell Distribution Width 23.2 % (11.6-14.8) H 25.2 % (11.6-14.8) H Platelet Count 102 K/UL (150-450) L 88 K/UL (150-450) L Mean Platelet Volume 6.5 FL (6.5-10.1) 6.1 FL (6.5-10.1) L Neutrophils (%) (Auto) % (45.0-75.0) % (45.0-75.0) Lymphocytes (%) (Auto) % (20.0-45.0) % (20.0-45.0) Monocytes (%) (Auto) % (1.0-10.0) % (1.0-10.0) Eosinophils (%) (Auto) % (0.0-3.0) % (0.0-3.0) Basophils (%) (Auto) % (0.0-2.0) % (0.0-2.0) Differential Total Cells Counted 100 100 Neutrophils % (Manual) 84 % (45-75) H 87 % (45-75) H Lymphocytes % (Manual) 9 % (20-45) L 9 % (20-45) L Monocytes % (Manual) 5 % (1-10) 3 % (1-10) Eosinophils % (Manual) 1 % (0-3) 1 % (0-3) Basophils % (Manual) 1 % (0-2) 0 % (0-2) Band Neutrophils 0 % (0-8) 0 % (0-8) Platelet Estimate Decreased L Decreased L Platelet Morphology Normal Normal Polychromasia 1+ Hypochromasia 1+ 2+ Anisocytosis 1+ 3+ Macrocytosis 1+ 1+ Sodium Level 135 MMOL/L (136-145) L 137 MMOL/L (136-145) Potassium Level 4.8 MMOL/L (3.5-5.1) 5.0 MMOL/L (3.5-5.1) Chloride Level 106 MMOL/L (98-107) 108 MMOL/L (98-107) H Carbon Dioxide Level 10 MMOL/L (21-32) L 9 MMOL/L (21-32) *L Anion Gap 20 mmol/L (5-15) H 20 mmol/L (5-15) H Blood Urea Nitrogen 99 mg/dL (7-18) H 100 mg/dL (7-18) H Creatinine 4.3 MG/DL (0.55-1.30) H 4.3 MG/DL (0.55-1.30) H Estimat Glomerular Filtration Rate 10.6 mL/min (>60) 10.6 mL/min (>60) Glucose Level 85 MG/DL (74-106) 54 MG/DL (74-106) L Lactic Acid Level 6.00 mmol/L (0.4-2.0) H 5.80 mmol/L (0.4-2.0) H Calcium Level 7.1 MG/DL (8.5-10.1) L 6.9 MG/DL (8.5-10.1) L Total Bilirubin 21.3 MG/DL (0.2-1.0) H 20.9 MG/DL (0.2-1.0) H Direct Bilirubin 17.8 MG/DL (0.0-0.3) H 17.4 MG/DL (0.0-0.3) H Aspartate Amino Transf (AST/SGOT) 96 U/L (15-37) H 126 U/L (15-37) H Alanine Aminotransferase (ALT/SGPT) 37 U/L (12-78) 42 U/L (12-78) Alkaline Phosphatase 248 U/L (46-116) H 251 U/L (46-116) H Ammonia 300 umol/L (11-32) H Total Creatine Kinase 67 U/L (26-308) Creatine Kinase MB 5.1 NG/ML (0.0-3.6) H Creatine Kinase MB Relative Index 7.6 Troponin I 0.000 ng/mL (0.000-0.056) Pro-B-Type Natriuretic Peptide 2054 pg/mL (0-125) H Total Protein 5.2 G/DL (6.4-8.2) L 5.0 G/DL (6.4-8.2) L Albumin 0.9 G/DL (3.4-5.0) L 0.9 G/DL (3.4-5.0) L Globulin 4.3 g/dL 4.1 g/dL Albumin/Globulin Ratio 0.2 (1.0-2.7) L 0.2 (1.0-2.7) L Lipase 556 U/L (73-393) H Arterial Blood pH 7.261 (7.350-7.450) Arterial Blood Partial Pressure CO2 20.4 mmHg (35.0-45.0) *L Arterial Blood Partial Pressure O2 177.5 mmHg (75.0-100.0) H Arterial Blood HCO3 9.0 mmol/L (22.0-26.0) *L Arterial Blood Oxygen Saturation 99.5 % (95-100) Arterial Blood Base Excess -16.4 (-2-2) *L Saravanan Test Positive Urine Color Zohreh Urine Appearance Cloudy Urine pH 5 (4.5-8.0) Urine Specific [place] 1.015 (1.005-1.035) Urine Protein 1+ (NEGATIVE) H Urine Glucose (UA) Negative (NEGATIVE) Urine Ketones 1+ (NEGATIVE) H Urine Blood 2+ (NEGATIVE) H Urine Nitrite Positive (NEGATIVE) H Urine Bilirubin 3+ (NEGATIVE) H Urine Ictotest Positive (NEGATIVE) Urine Urobilinogen 4 MG/DL (0.0-1.0) H Urine Leukocyte Esterase 2+ (NEGATIVE) H Urine RBC 2-4 /HPF (0 - 2) H Urine WBC 2-4 /HPF (0 - 2) Urine Squamous Epithelial Cells Many /LPF (NONE/OCC) H Urine Calcium Oxalate Crystals Few /LPF (NONE) Urine Amorphous Sediment Many /LPF (NONE) H Urine Bacteria Many /HPF (NONE) H Urine Coarse Granular Casts 2-4 /LPF (NONE) H Urine Yeast Many /HPF (NONE) H Nucleated Red Blood Cells 2 /100 WBC Prothrombin Time 29.4 SEC (9.30-11.50) H Prothromb Time International Ratio 2.9 (0.9-1.1) H Activated Partial Thromboplast Time 67 SEC (23-33) H Phosphorus Level 9.3 MG/DL (2.5-4.9) H Magnesium Level 2.2 MG/DL (1.8-2.4) Height (Feet): 5 Height (Inches): 1.00 Weight (Pounds): 120 Medications Current Medications Medications (Trade) Dose Ordered Sig/Almaz Route PRN Reason Start Time Stop Time Status Last Admin Dose Admin Dextrose (Dextrose 50%) 25 ml Q30M PRN IV Hypoglycemia 06/10/19 10:45 07/10/19 10:44 06/10/19 11:48 Dextrose (Dextrose 50%) 50 ml Q30M PRN IV Hypoglycemia 06/10/19 10:45 07/10/19 10:44 Insulin Aspart (NovoLOG) Q6HR SUBQ 06/10/19 12:00 07/10/19 11:29 Lactulose (Cephulac) 30 gm THREE TIMES A DAY RECTAL 06/10/19 09:00 07/10/19 08:59 06/10/19 12:49 Piperacillin Sod/ Tazobactam Sod 3.375 gm/Sodium Chloride 110 ml @ 27.5 mls/hr Q12H IVPB 06/10/19 06:00 06/17/19 05:59 06/10/19 06:20 Sodium Bicarbonate 100 ml/Dextrose/ Sodium Chloride 1,100 ml @ 75 mls/hr [id number] IV 06/10/19 14:00 07/10/19 13:59 Assessment/Plan Problem List: (1) moribund (2) Jaundice ICD Codes: R17 - Unspecified jaundice SNOMED: 49602522 (3) End of life care ICD Codes: Z51.5 - Encounter for palliative care SNOMED: 951717511, 070485643 (4) Liver cirrhosis ICD Codes: K74.60 - Unspecified cirrhosis of liver SNOMED: 17300344 (5) Anasarca ICD Codes: R60.1 - Generalized edema SNOMED: 928912862, 224303297 Assessment/Plan: comfort care morphine prn avoid unnecessary meds Shireen Khan MD Jun 10, 2019 13:06
[2019-06-10] MEDS ORDERED: Morphine Sulfate 10mg/5ml Oral Soln ud ORAL PRN ×3 (13:30→17:30)
[2019-06-10] MEDS ORDERED: Haloperidol 1mg tab ORAL PRN ×2 (13:30→14:00)
[2019-06-10] MEDS ORDERED: Glycopyrrolate 0.2mg/ml 1ml Vial IV PRN ×2 (13:30→14:30)
--- NOTE | 2019-06-10 13:40 | NUR ---
TRANSFER TO FLOOR: Patient transferred to [facility] room 418-2, per Dr Khan's order. Bedside report given to Carrington Pratt RN. Belongings list signed. Left a message to Matteo Siddiqi .
--- NOTE | 2019-06-10 13:55 | NUR ---
NURSE NOTES: HANDOFF RECEIVED FROM CHAVA INGRAM. PATIENT BREATHING IS LABORED, VITALS ARE: HR 63, O2 SATURATION 99 ON 2 LITERS NASAL CANNULA, RESPIRATORY RATE OF 28, BLOOD PRESSURE 70/29 PATIENT IS DNR DNI.
[2019-06-10] MEDS ORDERED: Sodium Bicarbonate 100 ML in D5 1/2NS 1,000 ML IV SCH (14:00)
--- NOTE | 2019-06-10 14:48 | NUR ---
NURSE NOTES:WOUND CARE NOTES: Pt presented on admission with generalized edemae , jaundiced, multiple skin breakdown.moisture intertrigo noted to abdominal panus ,R and L groin areas. Madhu and posterior upper R and L thighs weeping serous exudate with scattered small serous blisters also noted to both thighs.DTPI with irregular borders noted to Sacrum . Partial opening noted to sacrococcygeal area. Base of wound is indurated,purple with scattered areas along borders that are maroon in colour.(L)9cm x (W)9.5cm. Bilat heels are boggy, and mottled .Both heels are cool to touch. Tx.plan: Apply Remedy Antifungal powder to bilat breasts Twice daily. Apply Antifungal cream to abd folds R and L groin Twice daily. Apply Moisture Barrier Paste to sacrum. Cover with Optifoam drsg. Change every 3 days and prn. Apply Cavilon Skin Barrier to both heels. Cover each heel with Optifoam drsg. Change very 7 days and prn. Reposition at least every 2hors or as tolerated. Off-load heels with pillow.
--- NOTE | 2019-06-10 15:51 | NUR ---
NURSE NOTES: CONTACTED DR ODONNELL PRN ORDERS ARE PO BUT PATIENT IS NPO, WAITING ORDERS.
--- NOTE | 2019-06-10 18:03 | NUR ---
NURSE NOTES: DR ODONNELL CONTACTED DAVE VICK RN AND SAID IT IS OKAY TO ADMINISTER THE ORAL MORPHINE SUBLINGUALLY.
--- NOTE | 2019-06-10 18:55 | History & Physical ---
History and Physical History & Physicial Dictated for Int Med-Dr Amador no. [id number]. Jose Benjamin MD Jun 10, 2019 18:55
--- NOTE | 2019-06-10 19:30 | NUR ---
NURSE NOTES: Received pt in bed. Pt is not alert and oriented, non verbal responsive. Pt has labored breathing on NC 2L/min. Pt is DNR, DNI. Vitals 95.4F, 44PR, 30RR, 94O2, 83/31Bp. IV intact and patent. Draper cath intact and draining well. Bed locked, lowest position, side rails up x 2, call light within reach. Will continue to monitor.
[2019-06-10 20:00] VITALS: BP 83/31
--- NOTE | 2019-06-10 20:00 | NUR ---
HAND-OFF: Report given to CHAVA HARKINS.
--- NOTE | 2019-06-10 20:45 | History and Physical Report ---
DATE OF ADMISSION: 06/10/2019 CHIEF COMPLAINT: The patient is a 58-year-old female, who presents with a chief complaint of altered mental status. HISTORY OF PRESENT ILLNESS: The patient was admitted to [facility] from May 17, 2019 to June 02, 2019. Please see history and physical and discharge summary dictated at that time. The patient was admitted for respiratory failure and sepsis. The patient is a resident of [facility]. According to the staff at [facility] , the patient had altered mental status. The patient presented to [facility] emergency room. The patient was admitted with altered mental status to rule out sepsis. REVIEW OF SYSTEMS: Unable to assess secondary to the patient's mental status. PAST MEDICAL HISTORY: Significant for: 1. Alcoholic cirrhosis of the liver. 2. Hypertension. 3. Diabetes type 2. 4. Thrombocytopenia. 5. Hepatic encephalopathy. 6. Ascites. 7. Hypercholesterolemia. 8. Portal hypertension. 9. Respiratory failure and sepsis as above. PAST SURGICAL HISTORY: Significant for section x1. CURRENT MEDICATIONS: 1. Tylenol No. 3 one tablet p.o. q.6 hours p.r.n. 2. Tylenol 650 mg p.o. q.4 hours p.r.n. 3. Albuterol nebulized q.4 hours p.r.n. 4. Amlodipine 5 mg p.o. daily. 5. Vitamin C 500 mg p.o. daily. 6. Aspirin 81 mg p.o. daily. 7. Calcium carbonate 500 mg one tablet p.o. daily. 8. Banophen 25 mg p.o. q.6 hours p.r.n. 9. Lasix 20 mg p.o. daily. 10. Hydroxyzine 10 mg p.o. daily. 11. NovoLog sliding scale. 12. Lactulose 30 mL p.o. 3 times daily. 13. Multivitamin one tablet p.o. daily. 14. Zofran 4 mg p.o. twice daily. 15. Protonix 40 mg p.o. daily. 16. Inderal 10 mg p.o. 3 times daily. 17. Rifampin 550 mg p.o. twice daily. 18. Aldactone 50 mg p.o. daily. 19. Thiamine 100 mg p.o. daily. 20. Zinc sulfate 220 mg p.o. daily. ALLERGIES: No known drug allergies. SOCIAL HISTORY: The patient is single and is a resident of [facility]. The patient denies tobacco or alcohol use. PHYSICAL EXAMINATION: VITAL SIGNS: Temperature 97.4, respirations 20, pulse 56, and blood pressure 95/49. GENERAL: The patient is a well-developed and well-nourished female, in moderate distress. HEENT: Eyes, pupils are equal and responsive to light and accommodation. Extraocular movements are intact. NECK: Supple without lymphadenopathy. CHEST: Lungs are clear to auscultation bilaterally without wheezes or rales. CARDIOVASCULAR: Regular rhythm and rate. S1 and S2 are normal without murmurs, rubs, or gallops. ABDOMEN: Soft and distended with decreased bowel sounds. No evidence of hepatosplenomegaly. Currently, no rebound or guarding noted. EXTREMITIES: Negative for clubbing, cyanosis, or edema. RECTAL/GENITAL: Not performed. NEUROLOGIC: Cranial nerves II through XII are grossly intact without focal deficits. Motor strength is 5/5 bilaterally. Deep tendon reflexes are 2+ plantar. LABORATORY STUDIES: WBC 6.7, hemoglobin 8.6, hematocrit 28.0, and platelets 102,000. Sodium 135, potassium 4.8, chloride 106, CO2 10, BUN 99, creatinine 4.3, and glucose 85. Lactic acid 6.0. Direct bilirubin elevated at 17.8. Total bilirubin 21.3. AST elevated at 96 and ALT 37. Ammonia 300. Alkaline phosphatase elevated to 148. Troponin 0.0. BNP elevated at 2054. Blood gas, pH 7.261, pCO2 20.4, pO2 is 177.5, bicarb 9.0, oxygen saturation 99.5, and base excess -16.4. Urinalysis showed 1+ ketones, 2+ blood, positive nitrite, 3+ bilirubin, and 2+ leukocyte esterase with wbc's 2 to 4. ASSESSMENT: This is a 58-year-old female. 1. Renal failure. 2. Liver failure. 3. Congestive heart failure. 4. Possible sepsis. 5. Alcoholic cirrhosis of the liver. 6. Hypertension. 7. Diabetes type 2. 8. Thrombocytopenia. 9. Diabetic encephalopathy. 10. Ascites. 11. Hypercholesterolemia. 12. Portal hypertension. TREATMENT: 1. Renal failure. A Nephrology consultation has been obtained with Dr. Jovany Byers. We will follow recommendations of Nephrology. 2. Liver failure. A Gastroenterology consultation has been obtained with Dr. Jon Torres. We will follow recommendations of Gastroenterology. 3. Congestive heart failure. Cardiology consultation has been obtained with Dr. Gerson Acosta. We will follow recommendation of Cardiology. 4. Alcoholic cirrhosis of the liver. 5. Hypertension. The patient is currently hypotensive. 6. Diabetes type 2. A NovoLog sliding scale has been instituted. 7. Thrombocytopenia. This is probably secondary to chronic liver failure. 8. Hepatic encephalopathy. The patient's current ammonia level is 300. The patient is currently receiving lactulose. 9. Ascites. 10. Hypercholesterolemia. 11. Portal hypertension. Jose Benjamin M.D. DR: MARTIN JOB#: [id number] CC:
[2019-06-10] MEDS ORDERED: Lactulose 200 GM in Water Sterile For Irrig 1000ml 700 ML RECTAL ONE (21:45)
[2019-06-11] MEDS ORDERED: D5 1/2NS 1000ml IV ONE (00:04)
[2019-06-11] MEDS ORDERED: NS 275ml ONE (00:04)
[2019-06-11] MEDS ORDERED: Tubing IV Secondary IV ONE (00:04)
--- NOTE | 2019-06-11 00:39 | NUR ---
PRONOUNCEMENT: No Code. Called to pronounce patient. Absence of spontaneous respirations, no cardiac or breath sounds on auscultation. Pupils fixed and dilated. No carotid pulse or chest movement. Patient at 0005. DR orta notified PER staci jung. Family was notified at 0035.
--- NOTE | 2019-06-11 00:40 | NUR ---
NURSE NOTES: Pt was absence of breathing and pulse on auscultation. No carotid pulse. Dilated and fixed pupil. Pt is DNR, DNI. Pt @0005, pronounced by Corinna Brambila. Called Dr. Amador @ 0015 and tessa @0018. Notified to SonDyllanMatteo @0035. Post mortem care done.
--- NOTE | 2019-06-11 17:19 | Cardiology Report ---
APPROVED REPORT EKG Measurement Heart [id number] Sinus rhythm with 1st degree AV block Left axis deviation Incomplete right bundle branch block Prolonged QT Abnormal ECG
--- NOTE | 2019-06-13 10:55 | Discharge Summary ---
Discharge Summary Discharge Summary _ SUMMARY DATE OF ADMISSION: 06/10/2019 DATE OF EXPIRATION: 06/11/2019 REASON FOR ADMISSION: 58 years old female with past medical history of end-stage liver cirrhosis due to ETOH abuse, recurrent hepatic encephalopathy, resident of nursing home facility, with DNR/DNI status , was transferred to the emergency department due to worsening mental status. Patient noted to be jaundiced and had agonal breathing. Vital signs revealed hypotension. Laboratory work-up revealed hemoglobin 8.6 , hematocrit 28, platelet count 102. No leukocytosis . Lactic acid 6.0. BUN 99, creatinine 4.3. Total bilirubin 21.3, direct bilirubin 17.8. AST 96, ALT 37. Ammonia 300. Lipase 556. Albumin 0.9. Troponin negative. pro BNP 2054. ABG revealed evidence of metabolic acidosis with pH 7.26, PCO2 20 . Urinalysis revealed +2 blood , +1 protein, +2 leukocyte esterase, many bacteria and many yeast . EKG revealed sinus rhythm, no acute ischemic changes. Chest x-ray revealed mild CHF. Upon admission patient was obtunded, jaundiced, acidotic and experienced agonal breathing . Patient was also hypotensive . Patient remained DNR/DNI status CONSULTANTS: hospitalist Dr. Khan briar wood sorter Dr. Byers [facility]: Patient admitted . Patient started on the IV fluid with sodium bicarbonate. Patient appeared to be terminal. Supplemental oxygen provided and titrated to keep pulse oximetry above 92%. Nebulizing treatment provided as needed. Patient initially started on antibiotics. Patient started on lactulose. Blood sugar initially was managed with sliding scale of insulin . Pain management was addressed as needed. Patient condition worsened. She e remained obtunded, acidotic, and jaundiced. Patient was transitioned to end-of-life care. All unnecessary medications were stopped. Robinul and atropine provided to avoid excessive secretions. Haldol was on board as needed for agitation. Pain management was addressed as needed. Patient was deteriorating fast and on 06/11 00:05 . Cause of : cardiopulmonary arrest secondary to end-stage liver disease FINAL DIAGNOSES: End-stage liver failure Acute tubular necrosis/acute renal failure Acute on chronic encephalopathy due to liver and renal failure Acute respiratory failure Acute on chronic alcoholic liver disease Lactic acidosis Severe ascites Jaundice Portal hypertension CHF Anemia Thrombocytopenia Diabetes mellitus type 2 End-of-life care DNR/DNI status I have been assigned to dictate discharge summary for this account. I was not involved in the patient's management. Corinna Guzman NP Jun 13, 2019 10:55
== END 2019-06-11 00:05 | disposition expired | DRG 432 ==
LOC: EDBD 21:30 → EMR 22:00 → 2W 06-10 00:11 → EDBEDREQ 06-10 00:53 → 4E 06-10 13:32
DX: K70.40 Alcoholic hepatic failure without coma (principal); N17.0 Acute kidney failure with tubular necrosis; J96.00 Acute respiratory failure, unspecified whether with hypoxia or hypercapnia; G93.49 Other encephalopathy; E87.2 Acidosis; K76.6 Portal hypertension; Z51.5 Encounter for palliative care; Z66 Do not resuscitate; K70.31 Alcoholic cirrhosis of liver with ascites; K70.11 Alcoholic hepatitis with ascites; I11.0 Hypertensive heart disease with heart failure; D64.9 Anemia, unspecified; D69.6 Thrombocytopenia, unspecified; E11.9 Type 2 diabetes mellitus without complications; Z79.82 Long term (current) use of aspirin; Z79.4 Long term (current) use of insulin; E78.00 Pure hypercholesterolemia, unspecified; I95.9 Hypotension, unspecified
CPT/HCPCS: 36415; 36600; 71045; 80053; 81003; 82140; 82248; 82550; 82553; 82803; 82962; 83605; 83690; 83735; 83880; 84100; 84484; 85007; 85025; 85610; 85730; 87040; 87081; 87086; 93005; 96360; 96361; 99291; J1815